=== PATIENT | male | born 1950 | race Caucasian/White ===

== ENCOUNTER 2016-08-09 20:27 | Inpatient (IN) | payer MEDICARE, BC ==
[2016-08-09] MEDS ORDERED: SODIUM CHLORIDE 0.9% 500 ML IV ONE (21:05)
[2016-08-09 21:23] LABS: Basophils % (A) 0 %; CH 29.3; CHCM 30.6; Eosinophils # (A) 0.2 k/uL (0-0.7); Eosinophils % (A) 3 %; HCT 37.4 % (39.0-53.0); HDW 3.01; HGB 11.8 gm/dL (13.0-17.5); Hypochromasia Marked; Luc # (Auto) 0.06; Luc % (Auto) 1; Lymphocytes # (A) 0.5 k/uL (1.0-4.8); Lymphocytes % (A) 10 %; MCH 30.1 pg (25.0-35.0); MCHC 31.4 g/dL (31.0-37.0); MCV 95.8 fL (80.0-100.0); Mean Platelet Volume 8.1; Monocytes # (A) 0.2 k/uL (0-1.0); Monocytes % (A) 5 %; Neutrophils % (A) 81 %; RBC 3.91 m/uL (4.30-5.90); RDW 15.9 % (11.5-15.5); WBC 4.9 k/uL (3.8-10.6); WBC (Perox) 4.96
--- NOTE | 2016-08-09 21:30 | ED ---
SOB HPI - General Chief Complaint: Shortness of Breath Stated Complaint: SOB Time Seen by Provider: 08/09/16 20:51 Source: patient Mode of arrival: wheelchair Limitations: no limitations - History of Present Illness Initial Comments: This 66-year-old male with history of A. fib, CHF, COPD who presents emergency department for worsening shortness of breath over the last couple of weeks and also a wound on his left lower extremity. He states he hit a table couple of days ago and sustained a skin tear. He's been treating it with Silvadene cream and local wound care at home. He states that the swelling in his left lower extremity has worsened and he feels he has an infection. Denies any fevers or chills. Does admit to a cough however no sputum production or no abdominal pain , nausea, vomiting, or diarrhea. He is currently anticoagulated. - Related Data Home Medications Medication Instructions Recorded Confirmed Isosorbide Mononitrate ER [Imdur] 30 mg PO DAILY 04/11/14 08/09/16 Tamsulosin HCl [Flomax] 0.8 mg PO DAILY 04/11/14 08/09/16 hydrALAZINE HCL [Apresoline] 25 mg PO AC-BID 04/11/14 08/09/16 Albuterol Nebulized [Ventolin 2.5 mg INHALATION RT-Q6H PRN 03/03/16 08/09/16 Nebulized] Allopurinol [Zyloprim] 300 mg PO DAILY 03/03/16 08/09/16 Metolazone 5 mg PO DAILY 03/03/16 08/09/16 Naproxen [Naprosyn] 500 mg PO AC-BID 03/03/16 08/09/16 Warfarin Sodium 6 mg PO DAILY 03/03/16 08/09/16 HYDROcodone/APAP 5-325MG [[place] 1 tab PO DAILY PRN 08/09/16 08/09/16 5-325] Previous Rx's Medication Instructions Recorded Potassium Chloride [Potassium 20 meq PO AC-BID #60 tablet.er 04/19/14 Chloride ER] Carvedilol [Coreg*] 12.5 mg PO AC-BID tab 03/06/16 Digoxin [Lanoxin] 125 mcg PO DAILY tab 03/06/16 Furosemide [Lasix] 40 mg PO BID@0900,1600 tab 03/06/16 Allergies Allergy/AdvReac Type Severity Reaction Status Date / Time No Known Allergies Allergy Verified 08/09/16 21:23 Review of Systems ROS Statement: Those systems with pertinent positive or pertinent negative responses have been documented in the HPI. ROS Other: All systems not noted in ROS Statement are negative. Past Medical History Past Medical History: Atrial Fibrillation, Heart Failure, COPD, Hypertension, Pneumonia, Prostate Disorder, Sleep Apnea/CPAP/BIPAP, Vascular Disorder Additional Past Medical History / Comment(s): CPAP MACHINE, ARTHRITIS, HANDS TREMOR AT TIMES, MAC DEGENERATION,VARICOSE VEINS, BRONCHITIS,GOUT, SINUS PROBLEMS AT TIMES. History of Any Multi-Drug Resistant Organisms: MRSA Date of last positivie culture/infection: 08/30/2012/ 10-03-12 MDRO Source:: LEFT LEG/ RT LEG Past Surgical History: Heart Catheterization Additional Past Surgical History / Comment(s): CYST AND PARTIAL JAW REMOVED/ SCREWS IN PLACE, DENTAL SX AGE 8 TO BRING TEETH DOWN,BRONCHOSCOPY, UPPER FRONT BRIDGE Past Anesthesia/Blood Transfusion Reactions: No Reported Reaction Additional Past Anesthesia/Blood Transfusion Reaction / Comment(s): STATED DURING BRONCH STOPPED BREATHING Past Psychological History: No Psychological Hx Reported Smoking Status: Former smoker Past Alcohol Use History: Rare Additional Past Alcohol Use History / Comment(s): SMOKED CIGARS OCC OFF AND ON X YEARS, QUIT 2009. He has used marijuana in the past. No street drug use. He states he drinks a beer occasionally. Patient lives at home with his . There is a dog in the home. He was in the [employer] stationed in the [place]. He has visited for a couple of times. 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 Past Drug Use History: None Reported - Past Family History Father Family Medical History: Dementia Additional Family Medical History / Comment(s): MACULAR DEGENERATION Mother Family Medical History: Diabetes Mellitus Additional Family Medical History / Comment(s): ANEURYSMS, CATARACTS. General Exam - General Exam Comments Initial Comments: Constitutional: Awake alert Appears comfortable Head: Normocephalic atraumatic Eyes: no conjunctival injection No scleral icterus EOMI Neck: No JVD Supple Heart: Tachycardia with irregular rhythm normal S1-S2 no murmurs Lungs: Clear to auscultation bilaterally No wheezing No rales, does not appear to be in any acute distress Abdomen: Soft nondistended nontender Extremities: Chronic bilateral lower extremity edema with chronic venous stasis changes, there is a large skin tear that is weeping and surrounding erythema of the left lower extremity DP pulses intact Radial pulses intact Neuro: A&Ox3 No focal neurologic deficits Psych: Appropriate mood and affect Limitations: no limitations Course Vital Signs 08/09/16 08/09/16 08/09/16 20:32 21:04 22:11 Temperature 98.6 F Pulse Rate 80 118 H 114 H Respiratory 18 26 H 20 Rate Blood Pressure 149/79 154/70 156/78 O2 Sat by Pulse 88 L 95 96 Oximetry - Reevaluation(s) Reevaluation #1: 08/09/16 21:30 EKG showing intra-fibrillation with a rate of 134. No ST segment changes or T- wave inversions are seen however there is a lot of artifact it's difficult to tell. QTC is 591. Other intervals are normal Medical Decision Making - Medical Decision Making This is a 66-year-old male presents emergency department for worsening shortness breath over the last couple of weeks that was worse today. Patient was hypoxic on arrival 88%. He was improved after oxygen administration. He was also 5 be in A. fib with RVR and had what appears to be left lower extremity cellulitis from her recent wound. The patient is started on vancomycin. We'll start him on a Cardizem drip to help with his heart function. Initially was given a little bit of fluids because there is concern for sepsis however there is no evidence for that at this time. We will hold on nitrates and diuretics until he can get his heart rate under control. Like to admit him to the hospital for CHF exacerbation, atrial fibrillation and cellulitis. Dr. Modi accepts the admission. - Lab Data Result diagrams: 08/09/16 20:55 08/09/16 20:55 Lab Results 08/09/16 08/09/16 08/09/16 Range/Units 20:55 20:55 20:55 WBC 4.9 (3.8-10.6) k/uL RBC 3.91 L (4.30-5.90) m/uL Hgb 11.8 L (13.0-17.5) gm/dL Hct 37.4 L (39.0-53.0) % MCV 95.8 (80.0-100.0) fL MCH 30.1 (25.0-35.0) pg MCHC 31.4 (31.0-37.0) g/dL RDW 15.9 H (11.5-15.5) % Plt Count 124 L (150-450) k/uL Neutrophils % 81 % Lymphocytes % 10 % Monocytes % 5 % Eosinophils % 3 % Basophils % 0 % Neutrophils # 4.0 (1.3-7.7) k/uL Lymphocytes # 0.5 L (1.0-4.8) k/uL Monocytes # 0.2 (0-1.0) k/uL Eosinophils # 0.2 (0-0.7) k/uL Basophils # 0.0 (0-0.2) k/uL Hypochromasia Marked PT 17.9 H (9.0-12.0) sec INR 1.9 (<1.1) APTT 33.7 H (22.0-30.0) sec Sodium 144 (137-145) mmol/L Potassium 3.2 L (3.5-5.1) mmol/L Chloride 94 L (98-107) mmol/L Carbon Dioxide 40 H* (22-30) mmol/L Anion Gap 10 mmol/L BUN 48 H (9-20) mg/dL Creatinine 1.60 H (0.66-1.25) mg/dL Est GFR (MDRD) Af Amer 53 (>60 ml/min/1.73 sqM) Est GFR (MDRD) Non-Af 44 (>60 ml/min/1.73 sqM) Glucose 162 H (74-99) mg/dL Plasma Lactic Acid [place] (0.7-2.0) mmol/L Calcium 8.7 (8.4-10.2) mg/dL Magnesium 1.5 L (1.6-2.3) mg/dL Total Bilirubin 1.5 H (0.2-1.3) mg/dL AST 24 (17-59) U/L ALT 30 (21-72) U/L Alkaline Phosphatase 91 (38-126) U/L CK-MB (CK-2) (0.0-2.4) ng/mL Troponin I (0.000-0.034) ng/mL NT-Pro-B Natriuret Pep pg/mL Total Protein 6.9 (6.3-8.2) g/dL Albumin 3.5 (3.5-5.0) g/dL 08/09/16 08/09/16 08/09/16 Range/Units 20:55 20:55 20:55 WBC (3.8-10.6) k/uL RBC (4.30-5.90) m/uL Hgb (13.0-17.5) gm/dL Hct (39.0-53.0) % MCV (80.0-100.0) fL MCH (25.0-35.0) pg MCHC (31.0-37.0) g/dL RDW (11.5-15.5) % Plt Count (150-450) k/uL Neutrophils % % Lymphocytes % % Monocytes % % Eosinophils % % Basophils % % Neutrophils # (1.3-7.7) k/uL Lymphocytes # (1.0-4.8) k/uL Monocytes # (0-1.0) k/uL Eosinophils # (0-0.7) k/uL Basophils # (0-0.2) k/uL Hypochromasia PT (9.0-12.0) sec INR (<1.1) APTT (22.0-30.0) sec Sodium (137-145) mmol/L Potassium (3.5-5.1) mmol/L Chloride (98-107) mmol/L Carbon Dioxide (22-30) mmol/L Anion Gap mmol/L BUN (9-20) mg/dL Creatinine (0.66-1.25) mg/dL Est GFR (MDRD) Af Amer (>60 ml/min/1.73 sqM) Est GFR (MDRD) Non-Af (>60 ml/min/1.73 sqM) Glucose (74-99) mg/dL Plasma Lactic Acid [place] 1.6 (0.7-2.0) mmol/L Calcium (8.4-10.2) mg/dL Magnesium (1.6-2.3) mg/dL Total Bilirubin (0.2-1.3) mg/dL AST (17-59) U/L ALT (21-72) U/L Alkaline Phosphatase (38-126) U/L CK-MB (CK-2) 1.1 (0.0-2.4) ng/mL Troponin I 0.041 H* (0.000-0.034) ng/mL NT-Pro-B Natriuret Pep 3900 pg/mL Total Protein (6.3-8.2) g/dL Albumin (3.5-5.0) g/dL Disposition Clinical Impression: CHF (congestive heart failure), Atrial fibrillation with RVR, Cellulitis Disposition: ADMITTED IP TO THIS HOSP Condition: Stable Referrals: Wiliam Modi MD [Primary Care Provider] - 1-2 days
[2016-08-09 21:34] LABS: INR 1.9 (<1.1); Partial Thromboplastin Time 33.7 sec (22.0-30.0); Prothrombin Time 17.9 sec (9.0-12.0)
--- NOTE | 2016-08-09 21:39 | XR ---
EXAMINATION TYPE: XR chest 2V DATE OF EXAM: 08/09/2016 9:26 PM COMPARISON: 06/24/2016 HISTORY: Short of breath TECHNIQUE: Frontal and lateral views of the chest are obtained. FINDINGS: There is general coarsening of interstitial pulmonary markings. There is linear density in the left midlung. There are no hilar masses. Heart is borderline enlarged. IMPRESSION: Interstitial pulmonary infiltrates with focal atelectasis in the left midlung. Lung viola ings are increased slightly compared to old exam. There could be mild heart failure.
[2016-08-09 21:42] LABS: Calcium 8.7 mg/dL (8.4-10.2); Magnesium 1.5 mg/dL (1.6-2.3); Potassium 3.2 mmol/L (3.5-5.1); Total Bilirubin 1.5 mg/dL (0.2-1.3); Total Protein 6.9 g/dL (6.3-8.2)
[2016-08-09 22:00] LABS: Creatine Kinase MB 1.1 ng/mL (0.0-2.4)
[2016-08-09 22:08] LABS: Troponin I 0.041 ng/mL (0.000-0.034)
[2016-08-09] MEDS ORDERED: IV VANCOMYCIN PER PHARMACY 1 EACH MISC MISCELLANE PRN (22:08)
[2016-08-09] MEDS ORDERED: VANCOMYCIN 2,000 MG in SODIUM CHLORIDE 0.9% 500 ML IVPB STA (22:14)
[2016-08-09] MEDS ORDERED: POTASSIUM CHLORIDE ER 20 MEQ TAB.ER PO STA (22:27)
[2016-08-09] MEDS ORDERED: NALOXONE 0.4 MG/ML 1 ML VIAL IV PRN (22:43)
[2016-08-09] MEDS: DILTIAZEM 125 MG in SODIUM CHLORIDE 0.9% 100 ML IV SCH (22:47)
[2016-08-09] MEDS: MAGNESIUM SULFATE-D5W PMX 1 GM in DEXTROSE/WATER 1 100ML.BAG IVPB SCH (22:47)
[2016-08-09 23:09] LABS: VBG PH 7.37 (7.31-7.41)
[2016-08-10] MEDS: MAGNESIUM SULFATE-D5W PMX 1 GM in DEXTROSE/WATER 1 100ML.BAG IVPB SCH (02:58)
[2016-08-10] MEDS ORDERED: POTASSIUM CHLORIDE ER 20 MEQ TAB.ER PO SCH (09:00)
[2016-08-10] MEDS: FUROSEMIDE 10 MG/ML 4 ML VIAL IV SCH ×3 (09:57→23:22)
--- NOTE | 2016-08-10 14:13 | CONS ---
DATE OF CONSULTATION: CHIEF COMPLAINT: Shortness of breath and palpitations. Lowell is a 66-year-old gentleman with history of cardiomyopathy, congestive heart failure, chronic atrial fibrillation, hypertension, and COPD, who presented to hospital complaining of shortness of breath and palpitations. He denies chest pain, paroxysmal nocturnal dyspnea and orthopnea. He has chronic leg edema and chronic stasis changes in both his legs. He comes in, is in A. fib with RVR. EKG shows atrial fibrillation with rapid ventricular rate with nonspecific ST-T wave changes. Patient had an echo done last year that revealed an ejection fraction of around 35%. So far, the BNP is elevated at 3900. Troponin is in the portillo zone at 0.041. Blood gases showed a pH of 7.3 and potassium is low at 3.2, BUN is high at 48. Creatinine is 1.6. Hemoglobin is 11.8. Past medical history is significant for chronic atrial fibrillation, chronic congestive heart failure, cardiomyopathy, COPD, hypertension. Medications include Coreg 12.5 b.i.d., Lanoxin 0.125, Lasix 40 b.i.d., Imdur 30 q. daily, metolazone 5 q. daily, Coumadin, hydralazine, K-Dur, Flomax, Zyloprim and Ventolin. ALLERGIES: There are no known drug allergies. Family history is negative for premature coronary artery disease. Social history is negative for current smoking, EtOH abuse, or drug abuse. REVIEW OF SYSTEMS: HEENT is unremarkable. CARDIAC: As described above. RESPIRATORY: As described above. GI: Negative. GENITOURINARY: Negative. ALLERGY/IMMUNOLOGY: Negative. SKIN: Negative. MUSCULOSKELETAL: Significant for arthritis. PSYCHOSOCIAL: Negative. ENDOCRINE: Negative. HEMATOLOGICAL: Negative. DERM: Negative. Oncological: ONCOLOGICAL: Negative. CONSTITUTIONAL: Negative. The rest of the system review is not relevant. On exam, patient is afebrile, heart rate is 104 beats per minute, blood pressure is 132/88, respiratory rate is 18. Chest exam reveals diminished air entry at the bases. Heart exam reveals first and second heart sounds, irregular rhythm, and a systolic murmur at the left lower sternal border. Abdomen is soft. Exam of extremities reveals bilateral 2+ pitting edema with chronic stasis changes. A chest x-ray shows cardiomegaly with prominent interstitial markings. ASSESSMENT: 1. Acute exacerbation of chronic congestive heart failure. 2. Chronic atrial fibrillation with uncontrolled ventricular rate. 3. Prerenal insufficiency. PLAN: Please continue the Coumadin to maintain an INR of 2 to 2.5, supplement the potassium, start the patient on IV Lasix, continue on IV Cardizem. On discharge will continue the metolazone he is currently on. I anticipate continue the beta blockers. I anticipate his going home over the next 24 hours. Thank you for giving me the privilege to participate in the care of this pleasant gentleman.
[2016-08-10] MEDS: VANCOMYCIN 2,000 MG in SODIUM CHLORIDE 0.9% 500 ML IVPB SCH (17:24)
[2016-08-10] MEDS: DILTIAZEM 125 MG in SODIUM CHLORIDE 0.9% 100 ML IV SCH (18:05)
[2016-08-10] MEDS ORDERED: HYDROcodone/APAP 5-325MG 1 EACH TAB PO PRN (18:52)
[2016-08-10] MEDS ORDERED: ALBUTEROL NEBULIZED 2.5 MG/3 ML INHALATION PRN (18:52)
[2016-08-10] MEDS: WARFARIN 3 MG TAB PO SCH (21:35)
--- NOTE | 2016-08-10 23:34 | P.HPIM ---
History of Present Illness H&P Date: 08/10/16 Chief Complaint: Shortness of breath and weight gain. The patient is a 66 white male fell on her my practice with history of obesity but a history of underlying atrial fibrillation with rapid ventricular response recently comes in with two-week history of worsening weight gain. Since similar admissions in the past with significant weight gain and this prompted him to come in for appropriate treatment. Cardiology has because consulted. He is now on appropriate Cardizem drip and is starting to stabilize. Diuresis was started. Mild shortness of breath and dyspnea on exertion is noted. Review of Systems Constitutional: Reports fatigue, Reports weakness Eyes: denies blurred vision, denies pain Ears, nose, mouth and throat: Denies headache, Denies sore throat Cardiovascular: Reports as per HPI Gastrointestinal: Denies abdominal pain, Denies diarrhea, Denies nausea, Denies vomiting Musculoskeletal: Denies myalgias Integumentary: Reports dryness, Reports rash Neurological: Denies numbness, Denies weakness Psychiatric: Denies anxiety, Denies depression Endocrine: Denies fatigue, Denies weight change Past Medical History Past Medical History: Atrial Fibrillation, Heart Failure, COPD, Hyperlipidemia, Hypertension, Pneumonia, Prostate Disorder, Sleep Apnea/CPAP/BIPAP, Vascular Disorder Additional Past Medical History / Comment(s): CPAP MACHINE, ARTHRITIS, HANDS TREMOR AT TIMES, MAC DEGENERATION,VARICOSE VEINS, BRONCHITIS,GOUT, SINUS PROBLEMS AT TIMES. History of Any Multi-Drug Resistant Organisms: MRSA Date of last positivie culture/infection: 08/30/12 MDRO Source:: Unknown Past Surgical History: Heart Catheterization Additional Past Surgical History / Comment(s): CYST AND PARTIAL JAW REMOVED/ SCREWS IN PLACE, DENTAL SX AGE 8 TO BRING TEETH DOWN,BRONCHOSCOPY, UPPER FRONT BRIDGE Past Anesthesia/Blood Transfusion Reactions: No Reported Reaction Additional Past Anesthesia/Blood Transfusion Reaction / Comment(s): STATED DURING BRONCH STOPPED BREATHING Past Psychological History: No Psychological Hx Reported Smoking Status: Former smoker Past Alcohol Use History: Rare Additional Past Alcohol Use History / Comment(s): SMOKED CIGARS OCC OFF AND ON X YEARS, QUIT 2009. He has used marijuana in the past. No street drug use. He states he drinks a beer occasionally. Patient lives at home with his . There is a dog in the home. He was in the [employer] [place]. He has visited for a couple of times. 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 Past Drug Use History: None Reported - Past Family History Father Family Medical History: Dementia Additional Family Medical History / Comment(s): MACULAR DEGENERATION Mother Family Medical History: Diabetes Mellitus Additional Family Medical History / Comment(s): ANEURYSMS, CATARACTS. Medications and Allergies Home Medications Medication Instructions Recorded Confirmed Type RX: Isosorbide Mononitrate ER 30 mg PO DAILY 04/11/14 08/09/16 History [Imdur] RX: Tamsulosin HCl [Flomax] 0.8 mg PO DAILY 04/11/14 08/09/16 History RX: hydrALAZINE HCL [Apresoline] 25 mg PO AC-BID 04/11/14 08/09/16 History RX: Albuterol Nebulized [Ventolin 2.5 mg INHALATION RT-Q6H PRN 03/03/16 History Nebulized] RX: Allopurinol [Zyloprim] 300 mg PO DAILY 03/03/16 08/09/16 History RX: Metolazone 5 mg PO DAILY 03/03/16 08/09/16 History RX: Naproxen [Naprosyn] 500 mg PO AC-BID 03/03/16 08/09/16 History RX: Warfarin Sodium 6 mg PO DAILY 03/03/16 08/09/16 History RX: HYDROcodone/APAP 5-325MG 1 tab PO DAILY PRN 08/09/16 08/09/16 History [[place] 5-325] Allergies Allergy/AdvReac Type Severity Reaction Status Date / Time No Known Allergies Allergy Verified 08/09/16 21:23 Physical Exam Vitals: Vital Signs Temp Pulse Pulse Resp BP BP BP 08/10/16 23:07 96 08/10/16 23:03 90 08/10/16 20:00 97.7 F 104 H 20 152/82 140/105 08/10/16 16:00 104 H 16 159/103 08/10/16 12:00 97 F L 45 L 16 107/56 08/10/16 08:00 98.1 F 100 22 132/88 08/10/16 01:00 105 H 20 139/81 08/10/16 00:00 97 18 133/74 Pulse Ox 08/10/16 23:07 08/10/16 23:03 08/10/16 20:00 98 08/10/16 16:00 97 08/10/16 12:00 94 L 08/10/16 08:00 92 L 08/10/16 01:00 94 L 08/10/16 00:00 95 Intake and Output 08/10/16 08/10/16 08/11/16 14:59 22:59 06:59 Intake Total 276 556.5 Output Total 1000 Balance 276 556.5 -1000 Intake: Intake, IV Titration 40 96.5 Amount Diltiazem 125 mg In 40 96.5 Sodium Chloride 0.9% 100 ml @ 5 MG/HR 5 mls/hr IV .Q24H [facility] Rx#:[id number] Oral 236 460 Output: Urine 1000 Other: Voiding Method Bedside Commode # Voids 4 Weight 149.685 kg 149.685 kg Patient Weight 08/11/16 06:59 Weight 149.685 kg - Constitutional General appearance: obese - EENT Eyes: EOMI - Neck Neck: no lymphadenopathy - Respiratory Respiratory: bilateral: diminished - Cardiovascular Rhythm: irregularly irregular Heart sounds: normal: S1, S2 - Gastrointestinal General gastrointestinal: no organomegaly, soft, no tenderness - Integumentary Integumentary: rash - Musculoskeletal Musculoskeletal: strength equal bilaterally - Psychiatric Psychiatric: A&O x's 3 Results CBC & Chem 7: 08/09/16 20:55 08/09/16 20:55 Thrombosis Risk Factor Assmnt - Choose All That Apply Any of the Below Risk Factors Present?: Yes Each Factor Represents 1 point: Obesity (BMI >25), Swollen legs (current) Each Risk Factor Represents 2 Points: Age 61-74 years Other congenital or acquired thrombophilia - If yes, enter type in comment: No Thrombosis Risk Factor Assessment Total Risk Factor Score: 4 Thrombosis Risk Factor Assessment Level: Moderate Risk Assessment and Plan (1) Atrial fibrillation with RVR Status: Acute (2) CHF (congestive heart failure) Status: Acute (3) Bilateral lower leg cellulitis Status: Acute (4) Edema extremities Status: Acute Plan: Appropriate diuresis with heart rate control was instituted. Antibiotic therapy will be started secondary to lower extremity cellulitis. Dietary modifications. Otherwise, cardiology will be consulted. I do appreciate input. CBC and CMP in a.m. Time with Patient: Less than 30
[2016-08-11 06:09] LABS: CHCM 29.9; HCT 38.3 % (39.0-53.0); HDW 2.94; HGB 11.6 gm/dL (13.0-17.5); Hypochromasia Marked; MCH 29.4 pg (25.0-35.0); MCHC 30.4 g/dL (31.0-37.0); MCV 96.9 fL (80.0-100.0); Mean Platelet Volume 7.7; RBC 3.95 m/uL (4.30-5.90); RDW 15.9 % (11.5-15.5); WBC 5.6 k/uL (3.8-10.6)
[2016-08-11 06:14] LABS: INR 2.2 (<1.1); Prothrombin Time 21.5 sec (9.0-12.0)
[2016-08-11 06:20] LABS: Calcium 8.8 mg/dL (8.4-10.2); Magnesium 1.6 mg/dL (1.6-2.3)
[2016-08-11 06:22] LABS: Potassium 2.7 mmol/L (3.5-5.1)
[2016-08-11] MEDS ORDERED: Potassium Replacement Protocol 1 EACH MISC MISCELLANE PRN (06:36)
[2016-08-11] MEDS: hydrALAZINE HCL 25 MG TAB PO SCH ×2 (07:21→16:22)
[2016-08-11] MEDS: NAPROXEN 250 MG TAB PO SCH ×2 (07:21→16:20)
[2016-08-11] MEDS: POTASSIUM CHLORIDE ER 20 MEQ TAB.ER PO SCH ×6 (07:21→23:49)
[2016-08-11] MEDS ORDERED: CARVEDILOL 12.5 MG TAB PO SCH (07:30)
--- NOTE | 2016-08-11 08:51 | P.PN ---
Subjective Principal diagnosis: Atrial fibrillation with rapid ventricular response. Causing congestive heart failure. This is a 66-year-old white male essentially admitted for congestive heart failure with recurrent bilateral lower extremity cellulitis. He states feeling much better after 1 day of diuresis. No significant fever stated. Dr. Bower is now been consulted for cellulitis. Objective - Vital Signs Vital signs: Vital Signs Temp 97.0 F L 08/11/16 08:30 Pulse 80 08/11/16 08:30 Resp 20 08/11/16 08:30 BP 134/87 08/11/16 08:30 Pulse Ox 92 L 08/11/16 08:30 Intake & Output 08/10/16 08/11/16 08/11/16 18:59 06:59 18:59 Intake Total 832.5 600 Output Total 2100 Balance 832.5 -1500 Weight 149.685 kg 156.4 kg Intake: Intake, IV Titration 136.5 Amount Diltiazem 125 mg In 136.5 Sodium Chloride 0.9% 100 ml @ 5 MG/HR 5 mls/hr IV .Q24H [facility] Rx#:[id number] Oral 696 600 Output: Urine 2100 Other: Voiding Method Bedside Commode Bedside Commode # Voids 3 - Constitutional General appearance: Present: obese - EENT Eyes: Absent: abnormal pupil - Respiratory Respiratory: bilateral: diminished - Cardiovascular Rhythm: irregularly irregular Heart sounds: normal: S1, S2 - Gastrointestinal General gastrointestinal: Present: soft. Absent: tenderness - Integumentary Integumentary: Present: cellulitis - Psychiatric Psychiatric: Present: A&O x's 3, appropriate affect, intact judgment & insight - Labs CBC & Chem 7: 08/11/16 05:36 08/11/16 05:36 Labs: Abnormal Lab Results - Last 24 Hours (Table) 08/11/16 08/11/16 08/11/16 Range/Units 05:36 05:36 05:36 RBC 3.95 L (4.30-5.90) m/uL Hgb 11.6 L (13.0-17.5) gm/dL Hct 38.3 L (39.0-53.0) % MCHC 30.4 L (31.0-37.0) g/dL RDW 15.9 H (11.5-15.5) % Plt Count 136 L (150-450) k/uL PT 21.5 H (9.0-12.0) sec Sodium 146 H (137-145) mmol/L Potassium 2.7 L* (3.5-5.1) mmol/L Chloride 95 L (98-107) mmol/L Carbon Dioxide 39 H (22-30) mmol/L BUN 48 H (9-20) mg/dL Creatinine 1.59 H (0.66-1.25) mg/dL Glucose 126 H (74-99) mg/dL Assessment and Plan (1) Atrial fibrillation with RVR Status: Acute (2) CHF (congestive heart failure) Status: Acute (3) Bilateral lower leg cellulitis Status: Acute (4) Edema extremities Status: Acute Plan: Continue diuresis at this time. Continue current regimen of antibiotic treatment-Dr. Bower is been consulted. Check CBC and CMP in a.m. with magnesium. Appreciate cardiology input. Prognosis is improving. Time with Patient: Less than 30
[2016-08-11] MEDS: FUROSEMIDE 10 MG/ML 4 ML VIAL IV SCH ×3 (08:52→22:50)
[2016-08-11] MEDS ORDERED: FUROSEMIDE 40 MG TAB PO SCH (09:00)
[2016-08-11] MEDS: ALLOPURINOL 300 MG TAB PO SCH (09:26)
[2016-08-11] MEDS: DIGOXIN 125 MCG TAB PO SCH (09:26)
[2016-08-11] MEDS: TAMSULOSIN 0.4 MG CAP.ER.24H PO SCH (09:26)
[2016-08-11] MEDS: ISOSORBIDE MONONITRATE ER 30 MG TAB.ER.24H PO SCH (09:26)
[2016-08-11] MEDS: METOLAZONE 5 MG TAB PO SCH (09:26)
[2016-08-11] MEDS ORDERED: CARVEDILOL 12.5 MG TAB PO ONE (10:00)
[2016-08-11] MEDS: VANCOMYCIN 2,000 MG in SODIUM CHLORIDE 0.9% 500 ML IVPB SCH (11:47)
--- NOTE | 2016-08-11 12:13 | P.PN ---
Subjective Principal diagnosis: Shortness of breath and palpitations. This is a 66-year-old gentleman with history of cardiomyopathy, congestive heart failure, chronic atrial fibrillation, hypertension, COPD, who initially presented to the hospital with symptoms of shortness of breath with associated palpitations. Patient has chronic leg edema as well as chronic stasis in both his legs. He recently had a injury to his left leg, causing a laceration to that leg which has been draining. He had an echocardiogram with Doppler study performed last year which revealed an ejection fraction of 35%. BNP on admission here 3900. Patient was initiated on IV Lasix, diuresing well on IV Lasix. Potassium today 2.7, BUN 48, creatinine 1.5. Magnesium level I.6. Blood pressure 127/62 with a heart rate in the 70s. Patient was seen and examined today, he states overall that he is feeling better. Denies to be in atrial fibrillation with a controlled ventricular response. On Coumadin for anticoagulation, INR 2.2. Objective - Vital Signs Vital signs: Vital Signs Temp 97.2 F L 08/11/16 11:35 Pulse 71 08/11/16 11:35 Resp 20 08/11/16 11:35 BP 127/62 08/11/16 11:35 Pulse Ox 93 L 08/11/16 11:35 Intake & Output 08/10/16 08/11/16 08/11/16 18:59 06:59 18:59 Intake Total 832.5 600 236 Output Total 2100 Balance 832.5 -1500 236 Weight 149.685 kg 156.4 kg 156.4 kg Intake: Intake, IV Titration 136.5 Amount Diltiazem 125 mg In 136.5 Sodium Chloride 0.9% 100 ml @ 5 MG/HR 5 mls/hr IV .Q24H [facility] Rx#:[id number] Oral 696 600 236 Output: Urine 2100 Other: Voiding Method Bedside Commode Bedside Commode # Voids 3 - Exam PHYSICAL EXAMINATION: HEENT: Head is atraumatic, normocephalic. Pupils equal, round. Neck is supple. There is no elevated jugular venous pressure. HEART EXAMINATION: Heart S1 and S2 irregularly irregular CHEST EXAMINATION: Lungs reveal diminished air entry to bilateral bases. ABDOMEN: Soft, obese, nontender. Bowel sounds are heard. No organomegaly noted. EXTREMITIES: 1+ peripheral pulses with 2+ evidence of peripheral edema and no calf tenderness noted. Evidence of chronic venous stasis and cellulitis. NEUROLOGIC patient is awake, alert and oriented -3. . - Labs CBC & Chem 7: 08/11/16 05:36 08/11/16 10:04 Labs: Abnormal Lab Results - Last 24 Hours (Table) 08/11/16 08/11/16 08/11/16 Range/Units 05:36 05:36 05:36 RBC 3.95 L (4.30-5.90) m/uL Hgb 11.6 L (13.0-17.5) gm/dL Hct 38.3 L (39.0-53.0) % MCHC 30.4 L (31.0-37.0) g/dL RDW 15.9 H (11.5-15.5) % Plt Count 136 L (150-450) k/uL PT 21.5 H (9.0-12.0) sec Sodium 146 H (137-145) mmol/L Potassium 2.7 L* (3.5-5.1) mmol/L Chloride 95 L (98-107) mmol/L Carbon Dioxide 39 H (22-30) mmol/L BUN 48 H (9-20) mg/dL Creatinine 1.59 H (0.66-1.25) mg/dL Glucose 126 H (74-99) mg/dL 08/11/16 Range/Units 10:04 RBC (4.30-5.90) m/uL Hgb (13.0-17.5) gm/dL Hct (39.0-53.0) % MCHC (31.0-37.0) g/dL RDW (11.5-15.5) % Plt Count (150-450) k/uL PT (9.0-12.0) sec Sodium (137-145) mmol/L Potassium 2.9 L* (3.5-5.1) mmol/L Chloride (98-107) mmol/L Carbon Dioxide (22-30) mmol/L BUN (9-20) mg/dL Creatinine (0.66-1.25) mg/dL Glucose (74-99) mg/dL Assessment and Plan (1) Systolic CHF, acute on chronic Status: Acute (2) Chronic a-fib Status: Acute (3) NICM (nonischemic cardiomyopathy) Status: Acute (4) Cellulitis Status: Acute (5) Bilateral lower leg cellulitis Status: Acute (6) Hypokalemia Status: Acute (7) Hypomagnesemia Status: Acute Plan: From cardiology's perspective, we will recommend to continue IV Lasix. Continue Coumadin to maintain an INR in the range of 2-2.2. Discontinue IV Cardizem and increase current dose of cortical. Replace potassium and magnesium. DNP note has been reviewed, I agree with a documented findings and plan of care. Patient was seen and examined.
[2016-08-11] MEDS: POTASSIUM CHLORIDE 10 MEQ, LIDOCAINE 2% INJ 10 MG in SODIUM CHLORIDE 0.9% 100 ML IV SCH ×3 (13:25→16:20)
[2016-08-11] MEDS: MAGNESIUM SULFATE-D5W PMX 1 GM in DEXTROSE/WATER 1 100ML.BAG IVPB SCH ×2 (13:25→14:45)
--- NOTE | 2016-08-11 14:11 | CDI ---
In responding to this query, please exercise your independent professional judgment. The [facility] Coding Staff and Clinical Documentation Specialists appreciate your assistance in clarifying documentation, maintaining compliance with coding guidelines, accurately documenting patients condition and capturing severity of illness. The fact that a question is asked does not imply that any particular answer is desired or expected. Communication forms are a method of clarifying documentation and are not made part of the Legal Health Record. Thank you in advance for your clarification. Last Revision, August 2015 Jess Beaver [address] [facility] [place] [address] Documentation Clarification Form Date: 08/11/2016 2:03:00 PM From: Enma Lazo Admit Date: 08/09/2016 10:43:00 PM Patient Name: Lowell Barraza Visit Number: [id number] Dr. Wiliam Modi History/Risk Factors: CHF exacerbation AFib COPD history Sleep Apnea CPAP/BIPAP Exsmoker Clinical Indicators: Vital signs: RR 18 with O2 sats 88% on room air, RR 26 with sats 95% on 2L Lung/Breathing assessment: short of breath, accessory muscle use, pursed lip breathing per Vitals in ED VBG: pH 7.37 pCO2 72 pHCO3 40 Treatment: Breathing tx IV Lasix IV Cardizem O2 nasal cannula In your professional opinion, can you please clarify if these findings signify one of the following conditions? Acuity: o Acute o Chronic o Acute on Chronic Respiratory Status: o Respiratory failure with hypercapnia o Respiratory failure with hypoxia o Acute Respiratory Distress o Other Diagnosis, please specify o Unable to determine Please document in your progress notes and discharge summary in order to capture severity of illness and risk of mortality. Include clinical findings that support your diagnosis. FYI: Press F11 to launch patient chart. Place X here if this finding has no clinical significance, is not applicable or if you are not able to provide any additional documentation. CED
--- NOTE | 2016-08-11 14:16 | CDI ---
In responding to this query, please exercise your independent professional judgment. The [facility] Coding Staff and Clinical Documentation Specialists appreciate your assistance in clarifying documentation, maintaining compliance with coding guidelines, accurately documenting patients condition and capturing severity of illness. The fact that a question is asked does not imply that any particular answer is desired or expected. Communication forms are a method of clarifying documentation and are not made part of the Legal Health Record. Thank you in advance for your clarification. Last Revision, April 2015 Jess Beaver [address] [facility] [place] [address] Documentation Clarification Form Date: 08/11/2016 2:11:00 PM From: Enma Lazo Admit Date: 08/09/2016 10:43:00 PM Patient Name: Lowell Barraza Visit Number: [id number] Dr. Wiliam Modi Patient presents with a BUN/CR/GFR of: 48/1.60/44 History/Risk Factors: Hypertension AFib CHF COPD Sleep Apnea exsmoker Clinical Indicators: see labs listed above Other labs: K+ 3.2 poa, bnp 3900 Treatment: Consults: Cardiology Monitoring labs IV fluid bolus x1 In order to capture the severity of condition, please clarify if the condition signifies: Acute renal failure Acute on chronic renal failure Chronic kidney disease (CKD) and please stage Stage 1 GFR >90 Stage 2 GFR 60-89 Stage 3 GFR 30-59 Stage 4 GFR 15-29 Stage 5 GFR <15 ESRD Unable to determine Other, specify Please document in your progress notes and discharge summary in order to capture severity of illness and risk of mortality. Include clinical findings that support your diagnosis. FYI: Press F11 to launch patient chart. Place X here if this finding has no clinical significance, is not applicable or if you are not able to provide any additional documentation. CED
[2016-08-11] MEDS: CARVEDILOL 12.5 MG TAB PO SCH (16:22)
[2016-08-11] MEDS: WARFARIN 3 MG TAB PO SCH (17:23)
--- NOTE | 2016-08-11 19:38 | P.CONS ---
History of Present Illness - Reason for Consult Consult date: 08/11/16 - Chief Complaint Weakness - History of Present Illness 66-year-old male with a history of prior hospitalizations regarding his lower extremity edema and cellulitis presents now with significant lower extremity edema. The evidence of worsening volume overload as well as atrial fibrillation with accelerated ventricular response. He has a long-standing history of cardiomyopathy with chronic systolic congestive heart failure. The patient now presents feeling significantly poorly with shortness of breath poor exercise tolerance increasing lower extremity edema and some pain to the left leg. He did have an injury to the left leg has been having some drainage. However became a bit more uncomfortable and painful during this current bout of worsening heart failure. Because he presented hospital and was admitted. Infectious disease consultation regarding the cellulitic changes to the left leg. Patient relates is feeling somewhat better since coming to hospital with diuresis. Is still not achieved his baseline status. Review of Systems Constitutional: Denies chills, Denies fever Eyes: bilateral as per HPI (Floaters), denies blurred vision, denies pain Ears, nose, mouth and throat: Denies headache, Denies mouth pain, Denies sore throat Cardiovascular: Reports dyspnea on exertion, Reports edema, Reports irregular heart beat, Reports leg edema, Reports shortness of breath, Denies chest pain, Denies syncope Respiratory: Reports cough, Reports cough with sputum, Reports dyspnea, Reports sleep apnea, Denies excessive sputum, Denies hemoptysis, Denies home oxygen Gastrointestinal: Reports diarrhea, Denies abdominal pain, Denies nausea, Denies vomiting Genitourinary: Reports urinary frequency, Reports urinary hesitancy, Denies dysuria Musculoskeletal: Denies myalgias Integumentary: Reports wounds, no rash or pruritus but has lower extremity edema Neurological: Denies numbness, Denies weakness Psychiatric: Denies anxiety, Denies depression Endocrine: Denies fatigue, weight has increased with his heart failure Past Medical History Past Medical History: Atrial Fibrillation, Heart Failure, COPD, Hyperlipidemia, Hypertension, Pneumonia, Prostate Disorder, Sleep Apnea/CPAP/BIPAP, Vascular Disorder Additional Past Medical History / Comment(s): CPAP MACHINE, ARTHRITIS, HANDS TREMOR AT TIMES, MAC DEGENERATION,VARICOSE VEINS, BRONCHITIS,GOUT, SINUS PROBLEMS AT TIMES. History of Any Multi-Drug Resistant Organisms: MRSA Year Discovered:: 08/30/12 MDRO Source:: Unknown Past Surgical History: Heart Catheterization Additional Past Surgical History / Comment(s): CYST AND PARTIAL JAW REMOVED/ SCREWS IN PLACE, DENTAL SX AGE 8 TO BRING TEETH DOWN,BRONCHOSCOPY, UPPER FRONT BRIDGE Past Anesthesia/Blood Transfusion Reactions: No Reported Reaction Additional Past Anesthesia/Blood Transfusion Reaction / Comm: STATED DURING BRONCH STOPPED BREATHING Past Psychological History: No Psychological Hx Reported Smoking Status: Former smoker Past Alcohol Use History: Rare Additional Past Alcohol Use History / Comment(s): SMOKED CIGARS OCC OFF AND ON X YEARS, QUIT 2009. He has used marijuana in the past. No street drug use. He states he drinks a beer occasionally. Patient lives at home with his . There is a dog in the home. He was in the [employer] [place] in the [place]. He has visited for a couple of times. 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 Past Drug Use History: None Reported - Past Family History Father Family Medical History: Dementia Additional Family Medical History / Comment(s): MACULAR DEGENERATION Mother Family Medical History: Diabetes Mellitus Additional Family Medical History / Comment(s): ANEURYSMS, CATARACTS. Medications and Allergies Home Medications and Allergies Comment(s): Current Medications Acetaminophen/Hydrocodone Bitart (Aurora 5-325) 1 each PO DAILY PRN PRN Reason: Moderate Pain Albuterol Sulfate (Ventolin Nebulized) 2.5 mg INHALATION RT-Q6H PRN PRN Reason: Shortness Of Breath Last Admin: 08/10/16 23:01 Dose: 2.5 mg Allopurinol (Zyloprim) 300 mg PO DAILY [facility] Last Admin: 08/11/16 09:26 Dose: 300 mg Carvedilol (Coreg) 25 mg PO BID-W/MEALS [facility] Last Admin: 08/11/16 16:22 Dose: 25 mg Digoxin (Lanoxin) 125 mcg PO DAILY [facility] Last Admin: 08/11/16 09:26 Dose: 125 mcg Furosemide (Lasix) 40 mg IV Q8HR [facility] Last Admin: 08/11/16 16:22 Dose: 40 mg Hydralazine HCl (Apresoline) 25 mg PO AC-BID [facility] Last Admin: 08/11/16 16:22 Dose: 25 mg Vancomycin HCl 2,000 mg/ (Sodium Chloride) 500 mls @ 167 mls/hr IVPB Q24H [facility] Last Admin: 08/11/16 11:47 Dose: 167 mls/hr Isosorbide Mononitrate (Imdur) 30 mg PO DAILY [facility] Last Admin: 08/11/16 09:26 Dose: 30 mg Metolazone (Zaroxolyn) 5 mg PO DAILY [facility] Last Admin: 08/11/16 09:26 Dose: 5 mg Miscellaneous Information (Potassium Per Protocol) 1 each MISCELLANE DAILY PRN ; Protocol PRN Reason: Per Protocol Miscellaneous Information (Vancomycin Trough Due) 0 each MISCELLANE DIRECTED ONE Stop: 08/12/16 11:01 Naloxone HCl (Narcan) 0.2 mg IV Q2M PRN PRN Reason: Opioid Reversal Naproxen (Naprosyn) 500 mg PO AC-BID [facility] Last Admin: 08/11/16 16:20 Dose: 500 mg Potassium Chloride (K-Dur 20) 20 meq PO AC-BID [facility] Last Admin: 08/11/16 16:21 Dose: 20 meq Silver Sulfadiazine (Silvadene Cream) 1 applic TOPICAL BID [facility] Tamsulosin HCl (Flomax) 0.8 mg PO DAILY [facility] Last Admin: 08/11/16 09:26 Dose: 0.8 mg Warfarin Sodium (Coumadin) 6 mg PO DAILY@1800 [facility] Last Admin: 08/11/16 17:23 Dose: 6 mg Home Medications Medication Instructions Recorded Confirmed Type Isosorbide Mononitrate ER [Imdur] 30 mg PO DAILY 04/11/14 08/09/16 History Tamsulosin HCl [Flomax] 0.8 mg PO DAILY 04/11/14 08/09/16 History hydrALAZINE HCL [Apresoline] 25 mg PO AC-BID 04/11/14 08/09/16 History Albuterol Nebulized [Ventolin 2.5 mg INHALATION RT-Q6H PRN 03/03/16 08/09/16 History Nebulized] Allopurinol [Zyloprim] 300 mg PO DAILY 03/03/16 08/09/16 History Metolazone 5 mg PO DAILY 03/03/16 08/09/16 History Naproxen [Naprosyn] 500 mg PO AC-BID 03/03/16 08/09/16 History Warfarin Sodium 6 mg PO DAILY 03/03/16 08/09/16 History HYDROcodone/APAP 5-325MG [Aurora 1 tab PO DAILY PRN 08/09/16 08/09/16 History 5-325] Allergies Allergy/AdvReac Type Severity Reaction Status Date / Time No Known Allergies Allergy Verified 08/09/16 21:23 Physical Exam Vitals: Vital Signs Temp Pulse Pulse Resp BP BP Pulse Ox 08/11/16 16:00 97.1 F L 85 18 118/90 93 L 08/11/16 12:00 97.1 F L 81 18 115/76 94 L 08/11/16 11:35 97.2 F L 71 20 127/62 93 L 08/11/16 08:30 97.0 F L 80 20 134/87 92 L 08/11/16 08:14 93 L 08/11/16 08:00 80 20 08/11/16 07:50 97.2 F L 85 18 136/81 93 L 08/11/16 07:45 85 19 08/11/16 04:00 97.0 F L 85 20 139/85 95 08/11/16 00:00 97.5 F L 91 20 143/86 91 L 08/10/16 23:07 96 08/10/16 23:03 90 08/10/16 20:00 97.7 F 104 H 20 152/82 140/105 98 Intake and Output 08/11/16 08/11/16 08/11/16 06:59 14:59 22:59 Intake Total 600 880 236 Output Total 2100 1100 Balance -1500 -220 236 Intake: Intake, IV Titration 200 Amount Magnesium Sulfate-D5w Pmx 200 1 gm In Dextrose/Water 1 100ml.bag @ 100 mls/hr IVPB Q1H [facility] Rx#: [id number] Oral 600 680 236 Output: Urine 2100 1100 Other: Voiding Method Bedside Commode Bedside Commode Bedside Commode # Voids 3 3 Weight 156.4 kg 156.4 kg Patient Weight 08/12/16 06:59 Weight 156.4 kg Gen: This is a morbidly obese 65-year-old male. He is sitting up in ICU bed and appears to be in no acute distress. HEENT: Head is atraumatic, normocephalic. Pupils equal, round. Sclerae is anicteric. Conjunctiva pink. Mucous members of the mouth are dry. No thrush noted. NECK: Short and thick. Supple. No JVD. No lymphadenopathy. No thyromegaly. LUNGS: Diminished bilaterally No intercostal retractions. HEART: Irregularly irregular. No murmur. ABDOMEN: Morbidly obese with mild anasarca in the abdominal fold. Soft. Bowel sounds are present. No masses. No tenderness. EXTREMITIES: +3 pedal edema bilaterally with weeping with redness especially of the left leg. There is the open injury site on the pretibial area that measures 2 x 1.2 x 0.1 cm it has just some scant serous drainage. Onychomycosis bilaterally. NEUROLOGICAL: Patient is awake, alert and oriented x3. Cranial nerves 2 through 12 are grossly intact. Results Results: Microbiology 08/09/16 20:55 Blood Blood Culture - Preliminary No Growth after 24 hours History of MRSA CBC & Chem 7: 08/11/16 05:36 08/11/16 10:04 Labs: Abnormal Lab Results - Last 24 Hours (Table) 08/11/16 08/11/16 08/11/16 Range/Units 05:36 05:36 05:36 RBC 3.95 L (4.30-5.90) m/uL Hgb 11.6 L (13.0-17.5) gm/dL Hct 38.3 L (39.0-53.0) % MCHC 30.4 L (31.0-37.0) g/dL RDW 15.9 H (11.5-15.5) % Plt Count 136 L (150-450) k/uL PT 21.5 H (9.0-12.0) sec Sodium 146 H (137-145) mmol/L Potassium 2.7 L* (3.5-5.1) mmol/L Chloride 95 L (98-107) mmol/L Carbon Dioxide 39 H (22-30) mmol/L BUN 48 H (9-20) mg/dL Creatinine 1.59 H (0.66-1.25) mg/dL Glucose 126 H (74-99) mg/dL 08/11/16 Range/Units 10:04 RBC (4.30-5.90) m/uL Hgb (13.0-17.5) gm/dL Hct (39.0-53.0) % MCHC (31.0-37.0) g/dL RDW (11.5-15.5) % Plt Count (150-450) k/uL PT (9.0-12.0) sec Sodium (137-145) mmol/L Potassium 2.9 L* (3.5-5.1) mmol/L Chloride (98-107) mmol/L Carbon Dioxide (22-30) mmol/L BUN (9-20) mg/dL Creatinine (0.66-1.25) mg/dL Glucose (74-99) mg/dL Laboratory Results WBC 5.6 k/uL (3.8-10.6) 08/11/16 05:36 RBC 3.95 m/uL (4.30-5.90) L 08/11/16 05:36 Hgb 11.6 gm/dL (13.0-17.5) L 08/11/16 05:36 Hct 38.3 % (39.0-53.0) L 08/11/16 05:36 MCV 96.9 fL (80.0-100.0) 08/11/16 05:36 MCH 29.4 pg (25.0-35.0) 08/11/16 05:36 MCHC 30.4 g/dL (31.0-37.0) L 08/11/16 05:36 RDW 15.9 % (11.5-15.5) H 08/11/16 05:36 Plt Count 136 k/uL (150-450) L 08/11/16 05:36 Neutrophils % 81 % 08/09/16 20:55 Lymphocytes % 10 % 08/09/16 20:55 Monocytes % 5 % 08/09/16 20:55 Eosinophils % 3 % 08/09/16 20:55 Basophils % 0 % 08/09/16 20:55 Neutrophils # 4.0 k/uL (1.3-7.7) 08/09/16 20:55 Lymphocytes # 0.5 k/uL (1.0-4.8) L 08/09/16 20:55 Monocytes # 0.2 k/uL (0-1.0) 08/09/16 20:55 Eosinophils # 0.2 k/uL (0-0.7) 08/09/16 20:55 Basophils # 0.0 k/uL (0-0.2) 08/09/16 20:55 Hypochromasia Marked 08/11/16 05:36 PT 21.5 sec (9.0-12.0) H 08/11/16 05:36 INR 2.2 (<1.1) 08/11/16 05:36 APTT 33.7 sec (22.0-30.0) H 08/09/16 20:55 VBG pH 7.37 (7.31-7.41) 08/09/16 20:55 VBG pCO2 72 mmHg (37-51) H* 08/09/16 20:55 VBG HCO3 40 mmol/L (24-28) H 08/09/16 20:55 Sodium 146 mmol/L (137-145) H 08/11/16 05:36 Potassium 2.9 mmol/L (3.5-5.1) L* 08/11/16 10:04 Chloride 95 mmol/L (98-107) L 08/11/16 05:36 Carbon Dioxide 39 mmol/L (22-30) H 08/11/16 05:36 Anion Gap 12 mmol/L 08/11/16 05:36 BUN 48 mg/dL (9-20) H 08/11/16 05:36 Creatinine 1.59 mg/dL (0.66-1.25) H 08/11/16 05:36 Est GFR (MDRD) Af Amer 53 (>60 ml/min/1.73 sqM) 08/11/16 05:36 Est GFR (MDRD) Non-Af 44 (>60 ml/min/1.73 sqM) 08/11/16 05:36 Glucose 126 mg/dL (74-99) H 08/11/16 05:36 Plasma Lactic Acid Tavares 1.6 mmol/L (0.7-2.0) 08/09/16 20:55 Calcium 8.8 mg/dL (8.4-10.2) 08/11/16 05:36 Magnesium 1.6 mg/dL (1.6-2.3) 08/11/16 05:36 Total Bilirubin 1.5 mg/dL (0.2-1.3) H 08/09/16 20:55 AST 24 U/L (17-59) 08/09/16 20:55 ALT 30 U/L (21-72) 08/09/16 20:55 Alkaline Phosphatase 91 U/L (38-126) 08/09/16 20:55 CK-MB (CK-2) 1.1 ng/mL (0.0-2.4) 08/09/16 20:55 Troponin I 0.041 ng/mL (0.000-0.034) H* 08/09/16 20:55 NT-Pro-B Natriuret Pep 3900 pg/mL 08/09/16 20:55 Total Protein 6.9 g/dL (6.3-8.2) 08/09/16 20:55 Albumin 3.5 g/dL (3.5-5.0) 08/09/16 20:55 Assessment and Plan (1) CHF (congestive heart failure) Status: Acute (2) Atrial fibrillation with RVR Status: Acute (3) Left leg cellulitis Narrative/Plan: 66-year-old male that has a history of cardiomyopathy, chronic atrial fibrillation and congestive heart failure presents to Hospital with worsening lower extremity edema. In injury to the left leg and resultant small ulceration to that area. There is with the increased edema some drainage occurring to the lower extremity. At this time is to be treated with Silvadene wrap and an Kahlil wrap from the foot to the knee. Elevate while he is at rest. For antibiotic therapy with his history of MRSA he's receiving vancomycin therapy culture has been requested. Blood cultures are negative so far. There is no significant leukocytosis. His hypokalemia is being treated. He is being anticoagulated. He has chronic anemia. At the time of discharge if he has an ulceration to left leg will be admitted, the wound healing Center. If his heart failure is well controlled he could be a candidate for multilayer compression dressings. Status: Acute
[2016-08-12 04:18] LABS: Anisocytosis Slight; CHCM 29.7; HDW 2.92; HGB 11.6 gm/dL (13.0-17.5); Hypochromasia Marked; MCH 29.6 pg (25.0-35.0); MCHC 30.4 g/dL (31.0-37.0); MCV 97.6 fL (80.0-100.0); Macrocytosis Slight; Mean Platelet Volume 7.9; WBC 5.2 k/uL (3.8-10.6)
[2016-08-12 04:23] LABS: INR 1.7 (<1.1); Prothrombin Time 16.7 sec (9.0-12.0)
[2016-08-12 04:28] LABS: Calcium 8.6 mg/dL (8.4-10.2); Magnesium 1.6 mg/dL (1.6-2.3); Potassium 3.3 mmol/L (3.5-5.1); Total Bilirubin 1.7 mg/dL (0.2-1.3); Total Protein 6.9 g/dL (6.3-8.2)
[2016-08-12] MEDS ORDERED: Potassium Replacement Protocol 1 EACH MISC MISCELLANE PRN (05:20)
[2016-08-12] MEDS ORDERED: POTASSIUM CHLORIDE ER 20 MEQ TAB.ER PO SCH ×2 (06:00→13:00)
[2016-08-12] MEDS: CARVEDILOL 12.5 MG TAB PO SCH ×2 (06:52→17:01)
[2016-08-12] MEDS: POTASSIUM CHLORIDE ER 20 MEQ TAB.ER PO SCH ×2 (06:52→16:59)
[2016-08-12] MEDS: NAPROXEN 250 MG TAB PO SCH ×2 (06:52→16:59)
[2016-08-12] MEDS: hydrALAZINE HCL 25 MG TAB PO SCH ×2 (06:53→16:59)
[2016-08-12] MEDS: FUROSEMIDE 10 MG/ML 4 ML VIAL IV SCH ×2 (07:50→15:23)
[2016-08-12] MEDS: ALLOPURINOL 300 MG TAB PO SCH (07:52)
[2016-08-12] MEDS: DIGOXIN 125 MCG TAB PO SCH (07:52)
[2016-08-12] MEDS: ISOSORBIDE MONONITRATE ER 30 MG TAB.ER.24H PO SCH (07:52)
[2016-08-12] MEDS: TAMSULOSIN 0.4 MG CAP.ER.24H PO SCH (07:53)
[2016-08-12] MEDS: METOLAZONE 5 MG TAB PO SCH (07:53)
--- NOTE | 2016-08-12 08:35 | P.PN ---
Subjective Principal diagnosis: Shortness of breath with history of chronic atrial fibrillation. This is a continue progress on a 66-year-old white male essentially admitted for cellulitis with bilateral lower extremity edema with history of congestive heart failure related to atrial fibrillation with rapid ventricular response. Rate has now been starting be controlled and appropriate diuresis has been instituted. The patient states significant fatigue due to lack of sleep. Clinically much improved. Appreciate of appropriate input from cardiology and infectious disease. He is now on appropriate vancomycin for pedis history of MRSA. Objective - Vital Signs Vital signs: Vital Signs Temp 97 F L 08/12/16 07:45 Pulse 94 08/12/16 07:45 Resp 18 08/12/16 07:45 BP 110/66 08/12/16 07:45 Pulse Ox 92 L 08/12/16 07:45 Intake & Output 08/11/16 08/12/16 08/12/16 18:59 06:59 18:59 Intake Total 1116 300 Output Total 1100 4200 Balance 16 -3900 Weight 156.4 kg 154.2 kg Intake: Intake, IV Titration 200 300 Amount Magnesium Sulfate-D5w Pmx 200 1 gm In Dextrose/Water 1 100ml.bag @ 100 mls/hr IVPB Q1H [facility] Rx#: [id number] Potassium Chloride 10 meq 300 Lidocaine 2% Inj 10 mg In Sodium Chloride 0.9% 100 ml @ 100 mls/hr IV Q1HR [facility] Rx#:[id number] Oral 916 Output: Urine 1100 4200 Other: Voiding Method Bedside Commode Bedside Commode # Voids 3 3 - Constitutional General appearance: Present: obese - EENT Eyes: Absent: abnormal pupil - Respiratory Respiratory: bilateral: CTA - Cardiovascular Rhythm: irregularly irregular Heart sounds: normal: S1, S2 - Gastrointestinal General gastrointestinal: Present: soft. Absent: tenderness - Integumentary Integumentary Comment(s): Edema still noted. - Neurologic Neurologic: Present: CNII-XII intact - Psychiatric Psychiatric: Present: A&O x's 3, appropriate affect, intact judgment & insight - Labs CBC & Chem 7: 08/12/16 03:32 08/12/16 03:32 Labs: Abnormal Lab Results - Last 24 Hours (Table) 08/11/16 08/11/16 08/12/16 Range/Units 10:04 20:20 03:32 RBC (4.30-5.90) m/uL Hgb (13.0-17.5) gm/dL Hct (39.0-53.0) % MCHC (31.0-37.0) g/dL RDW (11.5-15.5) % Plt Count (150-450) k/uL PT (9.0-12.0) sec Potassium 2.9 L* 3.2 L 3.3 L (3.5-5.1) mmol/L Chloride 92 L (98-107) mmol/L Carbon Dioxide 42 H* (22-30) mmol/L BUN 54 H (9-20) mg/dL Creatinine 1.74 H (0.66-1.25) mg/dL Glucose 112 H (74-99) mg/dL Total Bilirubin 1.7 H (0.2-1.3) mg/dL 08/12/16 08/12/16 Range/Units 03:32 03:32 RBC 3.90 L (4.30-5.90) m/uL Hgb 11.6 L (13.0-17.5) gm/dL Hct 38.0 L (39.0-53.0) % MCHC 30.4 L (31.0-37.0) g/dL RDW 16.0 H (11.5-15.5) % Plt Count 121 L (150-450) k/uL PT 16.7 H (9.0-12.0) sec Potassium (3.5-5.1) mmol/L Chloride (98-107) mmol/L Carbon Dioxide (22-30) mmol/L BUN (9-20) mg/dL Creatinine (0.66-1.25) mg/dL Glucose (74-99) mg/dL Total Bilirubin (0.2-1.3) mg/dL Assessment and Plan (1) Atrial fibrillation with RVR Status: Acute (2) CHF (congestive heart failure) Status: Acute (3) Bilateral lower leg cellulitis Status: Acute (4) Edema extremities Status: Acute Plan: Continue diuresis. Check CBC and CMP in a.m. Clinically improved but still in need appropriate IV therapy. Start physical therapy in a.m. if strength is appropriate. Time with Patient: Less than 30
[2016-08-12] MEDS ORDERED: VANCOMYCIN TROUGH DUE 1 EACH MISC MISCELLANE ONE (11:00)
--- NOTE | 2016-08-12 11:22 | P.PN ---
Subjective Principal diagnosis: Shortness of breath and palpitations. This is a 66-year-old gentleman with history of cardiomyopathy, congestive heart failure, chronic atrial fibrillation, hypertension, COPD, who initially presented to the hospital with symptoms of shortness of breath with associated palpitations. Patient has chronic leg edema as well as chronic stasis in both his legs. He recently had a injury to his left leg, causing a laceration to that leg which has been draining. He had an echocardiogram with Doppler study performed last year which revealed an ejection fraction of 35%. BNP on admission here 3900. Patient was initiated on IV Lasix, diuresing well on IV Lasix. Weight today is down 2 kg. Potassium today 3.3, INR 1.7. BUN 54 and creatinine 1.7. Magnesium level I.7. Overall the patient states she's feeling significantly better today. Bilateral legs had been wrapped with Kahlil wraps today. Improvement in edema bilaterally noted. Objective - Vital Signs Vital signs: Vital Signs Temp 97 F L 08/12/16 07:45 Pulse 94 08/12/16 07:45 Resp 18 08/12/16 08:00 BP 110/66 08/12/16 07:45 Pulse Ox 92 L 08/12/16 07:45 Intake & Output 08/11/16 08/12/16 08/12/16 18:59 06:59 18:59 Intake Total 1116 300 300 Output Total 1100 4200 1300 Balance 16 -3900 -1000 Weight 156.4 kg 154.2 kg Intake: Intake, IV Titration 200 300 Amount Magnesium Sulfate-D5w Pmx 200 1 gm In Dextrose/Water 1 100ml.bag @ 100 mls/hr IVPB Q1H JULIEN Rx#: [id number] Potassium Chloride 10 meq 300 Lidocaine 2% Inj 10 mg In Sodium Chloride 0.9% 100 ml @ 100 mls/hr IV Q1HR JULIEN Rx#:[id number] Oral 916 300 Output: Urine 1100 4200 1300 Other: Voiding Method Bedside Commode Bedside Commode # Voids 3 3 - Exam PHYSICAL EXAMINATION: HEENT: Head is atraumatic, normocephalic. Pupils equal, round. Neck is supple. There is no elevated jugular venous pressure. HEART EXAMINATION: Heart S1 and S2 irregularly irregular CHEST EXAMINATION: Lungs reveal diminished air entry to bilateral bases. ABDOMEN: Soft, obese, nontender. Bowel sounds are heard. No organomegaly noted. EXTREMITIES: 1+ peripheral pulses with1- 2+ evidence of peripheral edema and no calf tenderness noted. Evidence of chronic venous stasis and cellulitis. Bilateral Kahlil wraps are in today. NEUROLOGIC patient is awake, alert and oriented -3. . - Labs CBC & Chem 7: 08/12/16 03:32 08/12/16 03:32 Labs: Abnormal Lab Results - Last 24 Hours (Table) 08/11/16 08/12/16 08/12/16 Range/Units 20:20 03:32 03:32 RBC (4.30-5.90) m/uL Hgb (13.0-17.5) gm/dL Hct (39.0-53.0) % MCHC (31.0-37.0) g/dL RDW (11.5-15.5) % Plt Count (150-450) k/uL PT 16.7 H (9.0-12.0) sec Potassium 3.2 L 3.3 L (3.5-5.1) mmol/L Chloride 92 L (98-107) mmol/L Carbon Dioxide 42 H* (22-30) mmol/L BUN 54 H (9-20) mg/dL Creatinine 1.74 H (0.66-1.25) mg/dL Glucose 112 H (74-99) mg/dL Total Bilirubin 1.7 H (0.2-1.3) mg/dL 08/12/16 Range/Units 03:32 RBC 3.90 L (4.30-5.90) m/uL Hgb 11.6 L (13.0-17.5) gm/dL Hct 38.0 L (39.0-53.0) % MCHC 30.4 L (31.0-37.0) g/dL RDW 16.0 H (11.5-15.5) % Plt Count 121 L (150-450) k/uL PT (9.0-12.0) sec Potassium (3.5-5.1) mmol/L Chloride (98-107) mmol/L Carbon Dioxide (22-30) mmol/L BUN (9-20) mg/dL Creatinine (0.66-1.25) mg/dL Glucose (74-99) mg/dL Total Bilirubin (0.2-1.3) mg/dL Microbiology - Last 24 Hours (Table) 08/11/16 21:40 Wound Culture - Preliminary Leg - Left Assessment and Plan (1) Systolic CHF, acute on chronic Status: Acute (2) Chronic a-fib Status: Acute (3) NICM (nonischemic cardiomyopathy) Status: Acute (4) Cellulitis Status: Acute (5) Bilateral lower leg cellulitis Status: Acute (6) Hypokalemia Status: Acute (7) Hypomagnesemia Status: Acute Plan: From cardiology's perspective, we will recommend to continue IV Lasix. Continue Coumadin to maintain an INR in the range of 2-2.2. DNP note has been reviewed, I agree with a documented findings and plan of care. Patient was seen and examined.
[2016-08-12] MEDS: VANCOMYCIN 2,000 MG in SODIUM CHLORIDE 0.9% 500 ML IVPB SCH (12:53)
[2016-08-12] MEDS: WARFARIN 3 MG TAB PO SCH (17:02)
--- NOTE | 2016-08-12 22:07 | P.PN ---
Subjective Principal diagnosis: Weakness 66-year-old male with a history of prior hospitalizations regarding his lower extremity edema and cellulitis presents now with significant lower extremity edema. The evidence of worsening volume overload as well as atrial fibrillation with accelerated ventricular response. He has a long-standing history of cardiomyopathy with chronic systolic congestive heart failure. The patient now presents feeling significantly poorly with shortness of breath poor exercise tolerance increasing lower extremity edema and some pain to the left leg. He did have an injury to the left leg has been having some drainage. However became a bit more uncomfortable and painful during this current bout of worsening heart failure. Because he presented hospital and was admitted. Infectious disease consultation regarding the cellulitic changes to the left leg. Patient relates is feeling somewhat better since coming to hospital with diuresis. Still has edema but feels better. Objective - Vital Signs Vital signs: Vital Signs Temp 97.1 F L 08/12/16 21:13 Pulse 85 08/12/16 21:13 Resp 16 08/12/16 21:13 BP 152/79 08/12/16 21:13 Pulse Ox 96 08/12/16 21:13 Intake & Output 08/12/16 08/12/16 08/13/16 06:59 18:59 06:59 Intake Total 300 628 Output Total 4200 1300 Balance -3900 -672 Weight 154.2 kg Intake: Intake, IV Titration 300 Amount Potassium Chloride 10 meq 300 Lidocaine 2% Inj 10 mg In Sodium Chloride 0.9% 100 ml @ 100 mls/hr IV Q1HR JULIEN Rx#:[id number] Oral 628 Output: Urine 4200 1300 Other: Voiding Method Bedside Commode Bedside Commode # Voids 3 1 - Exam Gen: This is a morbidly obese 65-year-old male. He is sitting up in ICU bed and appears to be in no acute distress. HEENT: Head is atraumatic, normocephalic. Pupils equal, round. Sclerae is anicteric. Conjunctiva pink. Mucous members of the mouth are dry. No thrush noted. NECK: Short and thick. Supple. No JVD. No lymphadenopathy. No thyromegaly. LUNGS: Diminished bilaterally No intercostal retractions. HEART: Irregularly irregular. No murmur. ABDOMEN: Morbidly obese with mild anasarca in the abdominal fold. Soft. Bowel sounds are present. No masses. No tenderness. EXTREMITIES: +3 pedal edema bilaterally with weeping with redness especially of the left leg. There is the open injury site on the pretibial area that measures 2 x 1.2 x 0.1 cm it has just some scant serous drainage. Onychomycosis bilaterally. NEUROLOGICAL: Patient is awake, alert and oriented x3. Cranial nerves 2 through 12 are grossly intact. - Labs CBC & Chem 7: 08/12/16 03:32 08/12/16 19:41 Labs: Abnormal Lab Results - Last 24 Hours (Table) 08/12/16 08/12/16 08/12/16 Range/Units 03:32 03:32 03:32 RBC 3.90 L (4.30-5.90) m/uL Hgb 11.6 L (13.0-17.5) gm/dL Hct 38.0 L (39.0-53.0) % MCHC 30.4 L (31.0-37.0) g/dL RDW 16.0 H (11.5-15.5) % Plt Count 121 L (150-450) k/uL PT 16.7 H (9.0-12.0) sec Potassium 3.3 L (3.5-5.1) mmol/L Chloride 92 L (98-107) mmol/L Carbon Dioxide 42 H* (22-30) mmol/L BUN 54 H (9-20) mg/dL Creatinine 1.74 H (0.66-1.25) mg/dL Glucose 112 H (74-99) mg/dL Total Bilirubin 1.7 H (0.2-1.3) mg/dL 08/12/16 08/12/16 Range/Units 11:04 14:26 RBC (4.30-5.90) m/uL Hgb (13.0-17.5) gm/dL Hct (39.0-53.0) % MCHC (31.0-37.0) g/dL RDW (11.5-15.5) % Plt Count (150-450) k/uL PT (9.0-12.0) sec Potassium 3.0 L* 3.1 L (3.5-5.1) mmol/L Chloride (98-107) mmol/L Carbon Dioxide (22-30) mmol/L BUN (9-20) mg/dL Creatinine (0.66-1.25) mg/dL Glucose (74-99) mg/dL Total Bilirubin (0.2-1.3) mg/dL Microbiology - Last 24 Hours (Table) 08/11/16 21:40 Wound Culture - Preliminary Leg - Left Laboratory Results WBC 5.2 k/uL (3.8-10.6) 08/12/16 03:32 RBC 3.90 m/uL (4.30-5.90) L 08/12/16 03:32 Hgb 11.6 gm/dL (13.0-17.5) L 08/12/16 03:32 Hct 38.0 % (39.0-53.0) L 08/12/16 03:32 MCV 97.6 fL (80.0-100.0) 08/12/16 03:32 MCH 29.6 pg (25.0-35.0) 08/12/16 03:32 MCHC 30.4 g/dL (31.0-37.0) L 08/12/16 03:32 RDW 16.0 % (11.5-15.5) H 08/12/16 03:32 Plt Count 121 k/uL (150-450) L 08/12/16 03:32 Neutrophils % 81 % 08/09/16 20:55 Lymphocytes % 10 % 08/09/16 20:55 Monocytes % 5 % 08/09/16 20:55 Eosinophils % 3 % 08/09/16 20:55 Basophils % 0 % 08/09/16 20:55 Neutrophils # 4.0 k/uL (1.3-7.7) 08/09/16 20:55 Lymphocytes # 0.5 k/uL (1.0-4.8) L 08/09/16 20:55 Monocytes # 0.2 k/uL (0-1.0) 08/09/16 20:55 Eosinophils # 0.2 k/uL (0-0.7) 08/09/16 20:55 Basophils # 0.0 k/uL (0-0.2) 08/09/16 20:55 Hypochromasia Marked 08/12/16 03:32 Anisocytosis Slight 08/12/16 03:32 Macrocytosis Slight 08/12/16 03:32 PT 16.7 sec (9.0-12.0) H 08/12/16 03:32 INR 1.7 (<1.1) 08/12/16 03:32 APTT 33.7 sec (22.0-30.0) H 08/09/16 20:55 VBG pH 7.37 (7.31-7.41) 08/09/16 20:55 VBG pCO2 72 mmHg (37-51) H* 08/09/16 20:55 VBG HCO3 40 mmol/L (24-28) H 08/09/16 20:55 Sodium 145 mmol/L (137-145) 08/12/16 03:32 Potassium 3.6 mmol/L (3.5-5.1) 08/12/16 19:41 Chloride 92 mmol/L (98-107) L 08/12/16 03:32 Carbon Dioxide 42 mmol/L (22-30) H* 08/12/16 03:32 Anion Gap 11 mmol/L 08/12/16 03:32 BUN 54 mg/dL (9-20) H 08/12/16 03:32 Creatinine 1.74 mg/dL (0.66-1.25) H 08/12/16 03:32 Est GFR (MDRD) Af Amer 48 (>60 ml/min/1.73 sqM) 08/12/16 03:32 Est GFR (MDRD) Non-Af 40 (>60 ml/min/1.73 sqM) 08/12/16 03:32 Glucose 112 mg/dL (74-99) H 08/12/16 03:32 Plasma Lactic Acid Tavares 1.6 mmol/L (0.7-2.0) 08/09/16 20:55 Calcium 8.6 mg/dL (8.4-10.2) 08/12/16 03:32 Magnesium 1.6 mg/dL (1.6-2.3) 08/12/16 03:32 Total Bilirubin 1.7 mg/dL (0.2-1.3) H 08/12/16 03:32 AST 25 U/L (17-59) 08/12/16 03:32 ALT 33 U/L (21-72) 08/12/16 03:32 Alkaline Phosphatase 89 U/L (38-126) 08/12/16 03:32 CK-MB (CK-2) 1.1 ng/mL (0.0-2.4) 08/09/16 20:55 Troponin I 0.041 ng/mL (0.000-0.034) H* 08/09/16 20:55 NT-Pro-B Natriuret Pep 3900 pg/mL 08/09/16 20:55 Total Protein 6.9 g/dL (6.3-8.2) 08/12/16 03:32 Albumin 3.5 g/dL (3.5-5.0) 08/12/16 03:32 Vancomycin Trough 16.9 ug/mL 08/12/16 11:04 Microbiology 08/11/16 21:40 Leg - Left Wound Culture - Preliminary 08/09/16 20:55 Blood Blood Culture - Preliminary No Growth after 48 hours Assessment and Plan (1) CHF (congestive heart failure) Status: Acute (2) Atrial fibrillation with RVR Status: Acute (3) Left leg cellulitis Narrative/Plan: 66-year-old male that has a history of cardiomyopathy, chronic atrial fibrillation and congestive heart failure presents to Hospital with worsening lower extremity edema. In injury to the left leg and resultant small ulceration to that area. There is with the increased edema some drainage occurring to the lower extremity. At this time is to be treated with Silvadene wrap and an Kahlil wrap from the foot to the knee. Elevate while he is at rest. For antibiotic therapy with his history of MRSA he's receiving vancomycin therapy culture has been requested. Blood cultures are negative so far. There is no significant leukocytosis. His hypokalemia is being treated. He is being anticoagulated. He has chronic anemia. At the time of discharge he may have the leg ulceration followed at the wound healing Center. If his heart failure is well controlled he could be a candidate for multilayer compression dressings. Status: Acute
[2016-08-13] MEDS: FUROSEMIDE 10 MG/ML 4 ML VIAL IV SCH ×2 (00:10→08:55)
[2016-08-13] MEDS: CARVEDILOL 12.5 MG TAB PO SCH ×2 (06:25→17:18)
[2016-08-13] MEDS: NAPROXEN 250 MG TAB PO SCH ×2 (06:26→17:17)
[2016-08-13] MEDS: hydrALAZINE HCL 25 MG TAB PO SCH ×2 (06:26→17:18)
[2016-08-13] MEDS: POTASSIUM CHLORIDE ER 20 MEQ TAB.ER PO SCH ×2 (06:27→17:18)
[2016-08-13 06:44] LABS: CH 29.1; CHCM 29.8; HDW 2.94; HGB 12.2 gm/dL (13.0-17.5); Hypochromasia Marked; MCH 29.6 pg (25.0-35.0); MCHC 30.4 g/dL (31.0-37.0); MCV 97.5 fL (80.0-100.0); RBC 4.11 m/uL (4.30-5.90); RDW 15.8 % (11.5-15.5); WBC 5.6 k/uL (3.8-10.6)
[2016-08-13 06:53] LABS: INR 1.8 (<1.1); Prothrombin Time 17.8 sec (9.0-12.0)
[2016-08-13 06:57] LABS: Calcium 8.7 mg/dL (8.4-10.2); Potassium 3.1 mmol/L (3.5-5.1); Total Bilirubin 1.7 mg/dL (0.2-1.3); Total Protein 7.1 g/dL (6.3-8.2)
[2016-08-13] MEDS: DIGOXIN 125 MCG TAB PO SCH (08:55)
[2016-08-13] MEDS: ALLOPURINOL 300 MG TAB PO SCH (08:55)
[2016-08-13] MEDS: METOLAZONE 5 MG TAB PO SCH (08:55)
[2016-08-13] MEDS: ISOSORBIDE MONONITRATE ER 30 MG TAB.ER.24H PO SCH (08:55)
[2016-08-13] MEDS: TAMSULOSIN 0.4 MG CAP.ER.24H PO SCH (08:55)
[2016-08-13] MEDS ORDERED: POTASSIUM CHLORIDE ER 20 MEQ TAB.ER PO ONE (10:00)
--- NOTE | 2016-08-13 12:01 | PN ---
This is the 66-year-old gentleman who is admitted to hospital with cardiomyopathy, congestive heart failure, chronic atrial fibrillation, COPD, who is admitted to hospital with congestive heart failure. He is feeling much better. The Kahlil wraps have improved his leg swelling. On exam, patient is afebrile. Vital signs are stable. There is no jugular venous distention. Chest exam reveals diminished air entry at the bases. Heart exam reveals first and second heart sounds. No gallop. There is a systolic murmur in the left lower sternal border. Exam of extremities reveals bilateral 1+ pitting edema. Labs show a hemoglobin of 12.2. Potassium is 3.1. BUN is 59. Creatinine is 2. ASSESSMENT: 1. Acute exacerbation of chronic systolic heart failure. 2. History of atrial fibrillation. PLAN: The patient is better. We will continue with the oral diuretics, hopefully home over the next day or two. He is on IV antibiotic for cellulitis.
--- NOTE | 2016-08-13 14:37 | P.PN ---
Subjective Principal diagnosis: Weakness 66-year-old male with a history of prior hospitalizations regarding his lower extremity edema and cellulitis presents now with significant lower extremity edema. The evidence of worsening volume overload as well as atrial fibrillation with accelerated ventricular response. He has a long-standing history of cardiomyopathy with chronic systolic congestive heart failure. The patient now presents feeling significantly poorly with shortness of breath poor exercise tolerance increasing lower extremity edema and some pain to the left leg. He did have an injury to the left leg has been having some drainage. However became a bit more uncomfortable and painful during this current bout of worsening heart failure. Because he presented hospital and was admitted. Infectious disease consultation regarding the cellulitic changes to the left leg. Patient relates is feeling somewhat better since coming to hospital with diuresis. Still has edema but feels better. Objective - Vital Signs Vital signs: Vital Signs Temp 97 F L 08/13/16 12:00 Pulse 85 08/13/16 12:00 Resp 16 08/13/16 12:00 BP 129/89 08/13/16 12:00 Pulse Ox 95 08/13/16 12:00 Intake & Output 08/12/16 08/13/16 08/13/16 18:59 06:59 18:59 Intake Total 628 720 Output Total 1300 3900 600 Balance -672 -3900 120 Weight 152.2 kg Intake: Oral 628 720 Output: Urine 1300 3900 600 Other: Voiding Method Bedside Commode # Voids 1 2 - Exam Gen: This is a morbidly obese 65-year-old male. He is sitting up in ICU bed and appears to be in no acute distress. HEENT: Head is atraumatic, normocephalic. Pupils equal, round. Sclerae is anicteric. Conjunctiva pink. Mucous members of the mouth are dry. No thrush noted. NECK: Short and thick. Supple. No JVD. No lymphadenopathy. No thyromegaly. LUNGS: Diminished bilaterally No intercostal retractions. HEART: Irregularly irregular. No murmur. ABDOMEN: Morbidly obese with mild anasarca in the abdominal fold. Soft. Bowel sounds are present. No masses. No tenderness. EXTREMITIES: +2 pedal edema bilaterally with improvement of the swelling erythema and redness and drainage. There is the open injury site on the pretibial area that measures 2 x 1.2 x 0.1 cm it has just some scant serous drainage. Onychomycosis bilaterally. NEUROLOGICAL: Patient is awake, alert and oriented x3. - Labs CBC & Chem 7: 08/13/16 06:23 08/13/16 06:23 Labs: Abnormal Lab Results - Last 24 Hours (Table) 08/12/16 08/13/16 08/13/16 Range/Units 14:26 06:23 06:23 RBC (4.30-5.90) m/uL Hgb (13.0-17.5) gm/dL MCHC (31.0-37.0) g/dL RDW (11.5-15.5) % Plt Count (150-450) k/uL PT 17.8 H (9.0-12.0) sec Sodium 146 H (137-145) mmol/L Potassium 3.1 L 3.1 L (3.5-5.1) mmol/L Chloride 87 L (98-107) mmol/L Carbon Dioxide 48 H* (22-30) mmol/L BUN 59 H (9-20) mg/dL Creatinine 2.05 H (0.66-1.25) mg/dL Glucose 115 H (74-99) mg/dL Total Bilirubin 1.7 H (0.2-1.3) mg/dL 08/13/16 Range/Units 06:23 RBC 4.11 L (4.30-5.90) m/uL Hgb 12.2 L (13.0-17.5) gm/dL MCHC 30.4 L (31.0-37.0) g/dL RDW 15.8 H (11.5-15.5) % Plt Count 129 L (150-450) k/uL PT (9.0-12.0) sec Sodium (137-145) mmol/L Potassium (3.5-5.1) mmol/L Chloride (98-107) mmol/L Carbon Dioxide (22-30) mmol/L BUN (9-20) mg/dL Creatinine (0.66-1.25) mg/dL Glucose (74-99) mg/dL Total Bilirubin (0.2-1.3) mg/dL Microbiology - Last 24 Hours (Table) 08/11/16 21:40 Gram Stain - Preliminary Leg - Left Wound Culture - Preliminary Gram Neg Bacilli Laboratory Results WBC 5.6 k/uL (3.8-10.6) 08/13/16 06:23 RBC 4.11 m/uL (4.30-5.90) L 08/13/16 06:23 Hgb 12.2 gm/dL (13.0-17.5) L 08/13/16 06:23 Hct 40.0 % (39.0-53.0) 08/13/16 06:23 MCV 97.5 fL (80.0-100.0) 08/13/16 06:23 MCH 29.6 pg (25.0-35.0) 08/13/16 06:23 MCHC 30.4 g/dL (31.0-37.0) L 08/13/16 06:23 RDW 15.8 % (11.5-15.5) H 08/13/16 06:23 Plt Count 129 k/uL (150-450) L 08/13/16 06:23 Neutrophils % 81 % 08/09/16 20:55 Lymphocytes % 10 % 08/09/16 20:55 Monocytes % 5 % 08/09/16 20:55 Eosinophils % 3 % 08/09/16 20:55 Basophils % 0 % 08/09/16 20:55 Neutrophils # 4.0 k/uL (1.3-7.7) 08/09/16 20:55 Lymphocytes # 0.5 k/uL (1.0-4.8) L 08/09/16 20:55 Monocytes # 0.2 k/uL (0-1.0) 08/09/16 20:55 Eosinophils # 0.2 k/uL (0-0.7) 08/09/16 20:55 Basophils # 0.0 k/uL (0-0.2) 08/09/16 20:55 Hypochromasia Marked 08/13/16 06:23 Anisocytosis Slight 08/12/16 03:32 Macrocytosis Slight 08/12/16 03:32 PT 17.8 sec (9.0-12.0) H 08/13/16 06:23 INR 1.8 (<1.1) 08/13/16 06:23 APTT 33.7 sec (22.0-30.0) H 08/09/16 20:55 VBG pH 7.37 (7.31-7.41) 08/09/16 20:55 VBG pCO2 72 mmHg (37-51) H* 08/09/16 20:55 VBG HCO3 40 mmol/L (24-28) H 08/09/16 20:55 Sodium 146 mmol/L (137-145) H 08/13/16 06:23 Potassium 3.1 mmol/L (3.5-5.1) L 08/13/16 06:23 Chloride 87 mmol/L (98-107) L 08/13/16 06:23 Carbon Dioxide 48 mmol/L (22-30) H* 08/13/16 06:23 Anion Gap 11 mmol/L 08/13/16 06:23 BUN 59 mg/dL (9-20) H 08/13/16 06:23 Creatinine 2.05 mg/dL (0.66-1.25) H 08/13/16 06:23 Est GFR (MDRD) Af Amer 40 (>60 ml/min/1.73 sqM) 08/13/16 06:23 Est GFR (MDRD) Non-Af 33 (>60 ml/min/1.73 sqM) 08/13/16 06:23 Glucose 115 mg/dL (74-99) H 08/13/16 06:23 Plasma Lactic Acid Tavares 1.6 mmol/L (0.7-2.0) 08/09/16 20:55 Calcium 8.7 mg/dL (8.4-10.2) 08/13/16 06:23 Magnesium 1.6 mg/dL (1.6-2.3) 08/12/16 03:32 Total Bilirubin 1.7 mg/dL (0.2-1.3) H 08/13/16 06:23 AST 29 U/L (17-59) 08/13/16 06:23 ALT 32 U/L (21-72) 08/13/16 06:23 Alkaline Phosphatase 91 U/L (38-126) 08/13/16 06:23 CK-MB (CK-2) 1.1 ng/mL (0.0-2.4) 08/09/16 20:55 Troponin I 0.041 ng/mL (0.000-0.034) H* 08/09/16 20:55 NT-Pro-B Natriuret Pep 3900 pg/mL 08/09/16 20:55 Total Protein 7.1 g/dL (6.3-8.2) 08/13/16 06:23 Albumin 3.5 g/dL (3.5-5.0) 08/13/16 06:23 Vancomycin Trough 16.9 ug/mL 08/12/16 11:04 Microbiology 08/11/16 21:40 Leg - Left Gram Stain - Preliminary 08/11/16 21:40 Leg - Left Wound Culture - Preliminary Gram Neg Bacilli 08/09/16 20:55 Blood Blood Culture - Preliminary No Growth after 72 hours Assessment and Plan (1) CHF (congestive heart failure) Status: Acute (2) Atrial fibrillation with RVR Status: Acute (3) Left leg cellulitis Narrative/Plan: 66-year-old male that has a history of cardiomyopathy, chronic atrial fibrillation and congestive heart failure presents to Hospital with worsening lower extremity edema. In injury to the left leg and resultant small ulceration to that area. There is with the increased edema some drainage occurring to the lower extremity. At this time is to be treated with Silvadene wrap and an Kahlil wrap from the foot to the knee. Elevate while he is at rest. For antibiotic therapy with his history of MRSA he's receiving vancomycin therapy culture has been requested. Blood cultures are negative so far. There is no significant leukocytosis. His hypokalemia is being treated. He is being anticoagulated. He has chronic anemia. At the time of discharge, he may have the leg ulceration followed at the wound healing Center. The arterial Dopplers show evidence of adequate ankle-brachial index. If his heart failure is well controlled he could be a candidate for multilayer compression dressings. Status: Acute
[2016-08-13] MEDS: FUROSEMIDE 40 MG TAB PO SCH (15:39)
[2016-08-13] MEDS: VANCOMYCIN 1,750 MG in SODIUM CHLORIDE 0.9% 250 ML IVPB SCH (15:39)
[2016-08-13] MEDS: WARFARIN 7.5 MG TAB PO SCH (17:17)
[2016-08-13] MEDS ORDERED: Potassium Replacement Protocol 1 EACH MISC MISCELLANE PRN (20:42)
[2016-08-13] MEDS ORDERED: POTASSIUM CHLORIDE 10 MEQ, LIDOCAINE 2% INJ 10 MG in SODIUM CHLORIDE 0.9% 100 ML IV SCH (21:00)
[2016-08-14 06:47] LABS: Anisocytosis Slight; CH 29.2; CHCM 30.4; HCT 40.7 % (39.0-53.0); HDW 2.92; HGB 12.5 gm/dL (13.0-17.5); Hypochromasia Marked; MCH 29.6 pg (25.0-35.0); MCHC 30.8 g/dL (31.0-37.0); MCV 96.1 fL (80.0-100.0); Mean Platelet Volume 7.9; RBC 4.24 m/uL (4.30-5.90); WBC 5.2 k/uL (3.8-10.6)
[2016-08-14 06:48] LABS: Prothrombin Time 19.1 sec (9.0-12.0)
[2016-08-14] MEDS: hydrALAZINE HCL 25 MG TAB PO SCH ×2 (07:01→17:32)
[2016-08-14] MEDS: NAPROXEN 250 MG TAB PO SCH ×2 (07:01→17:32)
[2016-08-14] MEDS: CARVEDILOL 12.5 MG TAB PO SCH ×2 (07:01→17:32)
[2016-08-14] MEDS: POTASSIUM CHLORIDE ER 20 MEQ TAB.ER PO SCH ×2 (07:02→17:34)
[2016-08-14 07:03] LABS: Calcium 8.5 mg/dL (8.4-10.2); Potassium 3.1 mmol/L (3.5-5.1); Total Bilirubin 1.9 mg/dL (0.2-1.3); Total Protein 6.9 g/dL (6.3-8.2)
[2016-08-14] MEDS: TAMSULOSIN 0.4 MG CAP.ER.24H PO SCH (08:41)
[2016-08-14] MEDS: ALLOPURINOL 300 MG TAB PO SCH (08:42)
[2016-08-14] MEDS: FUROSEMIDE 40 MG TAB PO SCH ×2 (08:42→17:32)
[2016-08-14] MEDS: ISOSORBIDE MONONITRATE ER 30 MG TAB.ER.24H PO SCH (08:42)
[2016-08-14] MEDS: METOLAZONE 5 MG TAB PO SCH (08:42)
[2016-08-14] MEDS: DIGOXIN 125 MCG TAB PO SCH (08:44)
[2016-08-14] MEDS: MAGNESIUM SULFATE-D5W PMX 1 GM in DEXTROSE/WATER 1 100ML.BAG IVPB SCH ×2 (11:07→11:08)
[2016-08-14] MEDS ORDERED: POTASSIUM CHLORIDE 20 MEQ, LIDOCAINE 2% INJ 20 MG in SODIUM CHLORIDE 0.9% 100 ML IVPB SCH (12:00)
--- NOTE | 2016-08-14 12:01 | P.PN ---
Subjective Principal diagnosis: Shortness of breath and palpitations. This is a 66-year-old gentleman with history of cardiomyopathy, congestive heart failure, chronic atrial fibrillation, hypertension, COPD, who initially presented to the hospital with symptoms of shortness of breath with associated palpitations. Patient has chronic leg edema as well as chronic stasis in both his legs. He recently had a injury to his left leg, causing a laceration to that leg which has been draining. He had an echocardiogram with Doppler study performed last year which revealed an ejection fraction of 35%. BNP on admission here 3900. Patient was initiated on IV Lasix, diuresing well on IV Lasix. patient is also on Zaroxolyn. Potassium today 3.1, INR 1.7. BUN 54 and creatinine 1.7. Magnesium level I.9. Overall the patient states she's feeling significantly better today. Bilateral legs had been wrapped with Kahlil wraps today. Improvement in edema bilaterally noted. Objective - Vital Signs Vital signs: Vital Signs Temp 97.8 F 08/14/16 08:00 Pulse 88 08/14/16 08:00 Resp 16 08/14/16 08:00 BP 127/68 08/14/16 08:00 Pulse Ox 93 L 08/14/16 08:00 Intake & Output 08/13/16 08/14/16 08/14/16 18:59 06:59 18:59 Intake Total 1080 1150 298 Output Total 600 2450 Balance 480 -1300 298 Weight 159 kg Intake: IV 430 0.9 80 Potassium Chloride 10 meq 100 Lidocaine 2% Inj 10 mg In Sodium Chloride 0.9% 100 ml @ 100 mls/hr IV Q1HR JULIEN Rx#:[id number] Vancomycin 1,750 mg In 250 Sodium Chloride 0.9% 250 ml @ 125 mls/hr IVPB Q24H JULIEN Rx#:[id number] Oral 1080 720 298 Output: Urine 600 2450 Other: Voiding Method Toilet Toilet Bedside Commode Bedside Commode # Voids 2 1 - Exam PHYSICAL EXAMINATION: HEENT: Head is atraumatic, normocephalic. Pupils equal, round. Neck is supple. There is no elevated jugular venous pressure. HEART EXAMINATION: Heart S1 and S2 irregularly irregular CHEST EXAMINATION: Lungs reveal diminished air entry to bilateral bases. ABDOMEN: Soft, obese, nontender. Bowel sounds are heard. No organomegaly noted. EXTREMITIES: 1+ peripheral pulses with1- 2+ evidence of peripheral edema and no calf tenderness noted. Evidence of chronic venous stasis and cellulitis. Bilateral Kahlil wraps are in today. NEUROLOGIC patient is awake, alert and oriented -3. . - Labs CBC & Chem 7: 08/14/16 06:14 08/14/16 06:14 Labs: Abnormal Lab Results - Last 24 Hours (Table) 08/13/16 08/13/16 08/14/16 Range/Units 15:43 18:22 06:14 RBC (4.30-5.90) m/uL Hgb (13.0-17.5) gm/dL MCHC (31.0-37.0) g/dL RDW (11.5-15.5) % Plt Count (150-450) k/uL PT (9.0-12.0) sec Potassium 3.0 L* 3.1 L 3.1 L (3.5-5.1) mmol/L Chloride 85 L (98-107) mmol/L Carbon Dioxide 46 H* (22-30) mmol/L BUN 56 H (9-20) mg/dL Creatinine 1.70 H (0.66-1.25) mg/dL Glucose 137 H (74-99) mg/dL Magnesium (1.6-2.3) mg/dL Total Bilirubin 1.9 H (0.2-1.3) mg/dL 08/14/16 08/14/16 08/14/16 Range/Units 06:14 06:14 06:14 RBC 4.24 L (4.30-5.90) m/uL Hgb 12.5 L (13.0-17.5) gm/dL MCHC 30.8 L (31.0-37.0) g/dL RDW 16.0 H (11.5-15.5) % Plt Count 137 L (150-450) k/uL PT 19.1 H (9.0-12.0) sec Potassium (3.5-5.1) mmol/L Chloride (98-107) mmol/L Carbon Dioxide (22-30) mmol/L BUN (9-20) mg/dL Creatinine (0.66-1.25) mg/dL Glucose (74-99) mg/dL Magnesium 1.3 L (1.6-2.3) mg/dL Total Bilirubin (0.2-1.3) mg/dL Microbiology - Last 24 Hours (Table) 08/11/16 21:40 Gram Stain - Preliminary Leg - Left Wound Culture - Preliminary Gram Neg Bacilli Assessment and Plan (1) Systolic CHF, acute on chronic Status: Acute (2) Chronic a-fib Status: Acute (3) NICM (nonischemic cardiomyopathy) Status: Acute (4) Cellulitis Status: Acute (5) Bilateral lower leg cellulitis Status: Acute (6) Hypokalemia Status: Acute (7) Hypomagnesemia Status: Acute Plan: From cardiology's perspective, we will recommend to continue IV Lasixan Zaroxolyn. Continue Coumadin to maintain an INR in the range of 2-2.2. INR 2.0 today DNP note has been reviewed, I agree with a documented findings and plan of care. Patient was seen and examined.
[2016-08-14] MEDS: POTASSIUM CHLORIDE 20 MEQ, LIDOCAINE 2% INJ 20 MG in SODIUM CHLORIDE 0.9% 100 ML IVPB SCH ×5 (12:35→21:15)
[2016-08-14] MEDS: WARFARIN 7.5 MG TAB PO SCH (17:35)
--- NOTE | 2016-08-14 19:31 | CT ---
EXAMINATION TYPE: CT sinus wo con DATE OF EXAM: 08/14/2016 6:37 PM COMPARISON: NONE HISTORY: Sinusitis, preseptal cellulitis. CT DLP: 563.00 mGycm Automated exposure control for dose reduction was used. FINDINGS: Helical acquisition through the paranasal sinuses, coronal reconstructions Increased attenuation within the subcutaneous fat over the frontal scalp, eyelids compatible with pre septal cellulitis. The orbits are within normal limits. Minimal mucosal changes within the maxillary sinus on the right, ostiomeatal units are patent. No air-fluid levels to suggest acute sinusitis. Den jazmyn decay is noted. There is artifact due to dental work, postop change involving the mandible. Cereb ral vascular calcifications are noted incidentally. Possible calcifications along the meninges over t he right frontal region. IMPRESSION: FINDINGS COMPATIBLE WITH PATIENT'S HISTORY. Additional findings above.
--- NOTE | 2016-08-14 21:46 | P.PN ---
Subjective Principal diagnosis: Weakness 66-year-old male with a history of prior hospitalizations regarding his lower extremity edema and cellulitis presents now with significant lower extremity edema. The evidence of worsening volume overload as well as atrial fibrillation with accelerated ventricular response. He has a long-standing history of cardiomyopathy with chronic systolic congestive heart failure. The patient now presents feeling significantly poorly with shortness of breath poor exercise tolerance increasing lower extremity edema and some pain to the left leg. He did have an injury to the left leg has been having some drainage. However became a bit more uncomfortable and painful during this current bout of worsening heart failure. Because he presented hospital and was admitted. Infectious disease consultation regarding the cellulitic changes to the left leg. Patient relates is feeling somewhat better since coming to hospital with diuresis. Still has edema but feels better. wound culture now shows evidence of pseudomonas aeruginosa Objective - Vital Signs Vital signs: Vital Signs Temp 96.8 F L 08/14/16 16:00 Pulse 69 08/14/16 16:00 Resp 16 08/14/16 16:00 BP 133/91 08/14/16 16:00 Pulse Ox 96 08/14/16 16:00 Intake & Output 08/14/16 08/14/16 08/15/16 06:59 18:59 06:59 Intake Total 1150 942 Output Total 2450 Balance -1300 942 Weight 159 kg Intake: IV 430 200 0.9 80 Potassium Chloride 10 meq 100 200 Lidocaine 2% Inj 10 mg In Sodium Chloride 0.9% 100 ml @ 100 mls/hr IV Q1HR JULIEN Rx#:[id number] Vancomycin 1,750 mg In 250 Sodium Chloride 0.9% 250 ml @ 125 mls/hr IVPB Q24H JULIEN Rx#:[id number] Oral 720 742 Output: Urine 2450 Other: Voiding Method Toilet Toilet Bedside Commode Bedside Commode # Voids 1 - Exam Gen: This is a morbidly obese 65-year-old male. He is sitting up in ICU bed and appears to be in no acute distress. HEENT: Head is atraumatic, normocephalic. Pupils equal, round. Sclerae is anicteric. Conjunctiva pink. Mucous members of the mouth are dry. No thrush noted. NECK: Short and thick. Supple. No JVD. No lymphadenopathy. No thyromegaly. LUNGS: Diminished bilaterally No intercostal retractions. HEART: Irregularly irregular. No murmur. ABDOMEN: Morbidly obese with mild anasarca in the abdominal fold. Soft. Bowel sounds are present. No masses. No tenderness. EXTREMITIES: +2 pedal edema bilaterally with improvement of the swelling erythema and redness and drainage. There is the open injury site on the pretibial area that measures 2 x 1.2 x 0.1 cm it has just some scant serous drainage. Onychomycosis bilaterally. NEUROLOGICAL: Patient is awake, alert and oriented x3. - Labs CBC & Chem 7: 08/14/16 06:14 08/14/16 06:14 Labs: Abnormal Lab Results - Last 24 Hours (Table) 08/14/16 08/14/16 08/14/16 Range/Units 06:14 06:14 06:14 RBC 4.24 L (4.30-5.90) m/uL Hgb 12.5 L (13.0-17.5) gm/dL MCHC 30.8 L (31.0-37.0) g/dL RDW 16.0 H (11.5-15.5) % Plt Count 137 L (150-450) k/uL PT 19.1 H (9.0-12.0) sec Potassium 3.1 L (3.5-5.1) mmol/L Chloride 85 L (98-107) mmol/L Carbon Dioxide 46 H* (22-30) mmol/L BUN 56 H (9-20) mg/dL Creatinine 1.70 H (0.66-1.25) mg/dL Glucose 137 H (74-99) mg/dL Magnesium (1.6-2.3) mg/dL Total Bilirubin 1.9 H (0.2-1.3) mg/dL 08/14/16 Range/Units 06:14 RBC (4.30-5.90) m/uL Hgb (13.0-17.5) gm/dL MCHC (31.0-37.0) g/dL RDW (11.5-15.5) % Plt Count (150-450) k/uL PT (9.0-12.0) sec Potassium (3.5-5.1) mmol/L Chloride (98-107) mmol/L Carbon Dioxide (22-30) mmol/L BUN (9-20) mg/dL Creatinine (0.66-1.25) mg/dL Glucose (74-99) mg/dL Magnesium 1.3 L (1.6-2.3) mg/dL Total Bilirubin (0.2-1.3) mg/dL Microbiology - Last 24 Hours (Table) 08/11/16 21:40 Gram Stain - Final Leg - Left Wound Culture - Final Pseudomonas aeruginosa Laboratory Results WBC 5.2 k/uL (3.8-10.6) 08/14/16 06:14 RBC 4.24 m/uL (4.30-5.90) L 08/14/16 06:14 Hgb 12.5 gm/dL (13.0-17.5) L 08/14/16 06:14 Hct 40.7 % (39.0-53.0) 08/14/16 06:14 MCV 96.1 fL (80.0-100.0) 08/14/16 06:14 MCH 29.6 pg (25.0-35.0) 08/14/16 06:14 MCHC 30.8 g/dL (31.0-37.0) L 08/14/16 06:14 RDW 16.0 % (11.5-15.5) H 08/14/16 06:14 Plt Count 137 k/uL (150-450) L 08/14/16 06:14 Neutrophils % 81 % 08/09/16 20:55 Lymphocytes % 10 % 08/09/16 20:55 Monocytes % 5 % 08/09/16 20:55 Eosinophils % 3 % 08/09/16 20:55 Basophils % 0 % 08/09/16 20:55 Neutrophils # 4.0 k/uL (1.3-7.7) 08/09/16 20:55 Lymphocytes # 0.5 k/uL (1.0-4.8) L 08/09/16 20:55 Monocytes # 0.2 k/uL (0-1.0) 08/09/16 20:55 Eosinophils # 0.2 k/uL (0-0.7) 08/09/16 20:55 Basophils # 0.0 k/uL (0-0.2) 08/09/16 20:55 Hypochromasia Marked 08/14/16 06:14 Anisocytosis Slight 08/14/16 06:14 Macrocytosis Slight 08/12/16 03:32 PT 19.1 sec (9.0-12.0) H 08/14/16 06:14 INR 2.0 (<1.1) 08/14/16 06:14 APTT 33.7 sec (22.0-30.0) H 08/09/16 20:55 VBG pH 7.37 (7.31-7.41) 08/09/16 20:55 VBG pCO2 72 mmHg (37-51) H* 08/09/16 20:55 VBG HCO3 40 mmol/L (24-28) H 08/09/16 20:55 Sodium 141 mmol/L (137-145) 08/14/16 06:14 Potassium 3.1 mmol/L (3.5-5.1) L 08/14/16 06:14 Chloride 85 mmol/L (98-107) L 08/14/16 06:14 Carbon Dioxide 46 mmol/L (22-30) H* 08/14/16 06:14 Anion Gap 10 mmol/L 08/14/16 06:14 BUN 56 mg/dL (9-20) H 08/14/16 06:14 Creatinine 1.70 mg/dL (0.66-1.25) H 08/14/16 06:14 Est GFR (MDRD) Af Amer 49 (>60 ml/min/1.73 sqM) 08/14/16 06:14 Est GFR (MDRD) Non-Af 41 (>60 ml/min/1.73 sqM) 08/14/16 06:14 Glucose 137 mg/dL (74-99) H 08/14/16 06:14 Plasma Lactic Acid [place] 1.6 mmol/L (0.7-2.0) 08/09/16 20:55 Calcium 8.5 mg/dL (8.4-10.2) 08/14/16 06:14 Magnesium 1.3 mg/dL (1.6-2.3) L 08/14/16 06:14 Total Bilirubin 1.9 mg/dL (0.2-1.3) H 08/14/16 06:14 AST 36 U/L (17-59) 08/14/16 06:14 ALT 30 U/L (21-72) 08/14/16 06:14 Alkaline Phosphatase 93 U/L (38-126) 08/14/16 06:14 CK-MB (CK-2) 1.1 ng/mL (0.0-2.4) 08/09/16 20:55 Troponin I 0.041 ng/mL (0.000-0.034) H* 08/09/16 20:55 NT-Pro-B Natriuret Pep 3900 pg/mL 08/09/16 20:55 Total Protein 6.9 g/dL (6.3-8.2) 08/14/16 06:14 Albumin 3.5 g/dL (3.5-5.0) 08/14/16 06:14 Vancomycin Trough 16.9 ug/mL 08/12/16 11:04 Microbiology 08/11/16 21:40 Leg - Left Gram Stain - Final 08/11/16 21:40 Leg - Left Wound Culture - Final Pseudomonas aeruginosa 08/09/16 20:55 Blood Blood Culture - Preliminary No Growth after 96 hours Assessment and Plan (1) CHF (congestive heart failure) Status: Acute (2) Atrial fibrillation with RVR Status: Acute (3) Left leg cellulitis Narrative/Plan: 66-year-old male that has a history of cardiomyopathy, chronic atrial fibrillation and congestive heart failure presents to Hospital with worsening lower extremity edema. In injury to the left leg and resultant small ulceration to that area. There is with the increased edema some drainage occurring to the lower extremity. At this time is to be treated with Silvadene wrap and an Kahlil wrap from the foot to the knee. Elevate while he is at rest. For antibiotic therapy with his history of MRSA receiving vancomycin therapy, Cultures now available. Should have evidence of MRSA but has evidence of pseudomonas aeruginosa. Susceptible to ciprofloxacin. Consequently vancomycin is discontinued. Ciprofloxacin is begun. We'll complete a week of this the time of his discharge. Blood cultures are negative so far. There is no significant leukocytosis. His hypokalemia is being treated. He is being anticoagulated. He has chronic anemia. At the time of discharge, he may have the leg ulceration followed at the wound healing Center. The arterial Dopplers show evidence of adequate ankle-brachial index. If his heart failure is well controlled he could be a candidate for multilayer compression dressings. Status: Acute
--- NOTE | 2016-08-14 22:20 | PN ---
I am covering for Dr. Modi. This 66-year-old gentleman who was admitted with atrial ventricular rate, other medical problems include CHF, also bilateral lower extremities cellulitis also, pseudomonas grown from the cultures, Dr. Bower is following the patient closely. The patient has been started on vancomycin. No chest pain. No palpitation. Past medical history reviewed. REVIEW OF SYSTEMS: CARDIOVASCULAR: No angina or palpitations. RESPIRATORY: As mentioned earlier. GASTROINTESTINAL: As mentioned earlier. GENITOURINARY: No dysuria. CENTRAL NERVOUS SYSTEM: No numbness. DERMATOLOGY: As mentioned earlier. Current medications are: 1. [place] 5 mg daily p.r.n. 2. Ventolin q.6h p.r.n. 3. Zyloprim 300 mg daily. 4. Coreg 2.5 mg p.o. b.i.d. 5. Lanoxin 125 mcg. 6. Lasix 40 mg p.o. b.i.d. 7. Apresoline 25 mg p.o. b.i.d. 8. Imdur 30 mg p.o. daily. 9. Zaroxolyn 5 mg p.o. daily. 10. Narcan 0.2 q.2 p.r.n. 11. Naprosyn 500 mg p.o. b.i.d. 12. K-Dur 20 meq p.o. b.i.d. 14. Flomax 0.8 daily. 15. Vancomycin 1.75 mg q.24 hours. 16. Coumadin 7.5 mg p.o. daily. PHYSICAL EXAMINATION: The patient is alert and oriented times three. Pulse 74, blood pressure 111/70. Respiratory rate 16. Temperature 97.8, pulse ox 94% on 2L. HEENT: Conjunctivae normal. Oral mucosa moist. NECK: No jugular venous distention. No carotid bruit. No lymph node enlargement. CARDIOVASCULAR: S1, S2 irregular. RESPIRATORY: Breath sounds diminished at the bases. A few scattered rhonchi and crackles. ABDOMEN: Soft, nontender. No mass palpable. EXTREMITIES: Legs bilateral cellulitis. CENTRAL NERVOUS SYSTEM: Higher functions as mentioned earlier. Moves all four limbs. No focal deficits. LYMPHATICS: No lymph nodes palpable in the neck, axillae or groin. SKIN: No ulcer, rash or bleeding. Labs WBC 5.2, hemoglobin is 12.5. INR is 12, sodium 141, Potassium 3.1. Creatinine is 1.70. ASSESSMENT: 1. Atrial fibrillation with rapid ventricular rate. 2. Bilateral lower leg cellulitis with pseudomonas aeruginosa. 3. History of congestive heart failure with acute on chronic systolic dysfunction, ejection fraction 30 to 35%. 4. Severely dilated LA. 5. Obesity with body mass index of 50.3. 6. History of chronic obstructive pulmonary disease. 7. Hypertension. 8. Hyperlipidemia. 9. History of pneumonia. 10. History of sleep apnea. 11. History of CPAP. 12. History of gout. 13. History of cardiac catheterization. 14. Remote history of nicotine dependence. 15. Hypokalemia. 16. FULL CODE. RECOMMENDATIONS AND DISCUSSION: In this 66-year-old gentleman who presented with multiple complex medical issues, we will monitor the patient closely. Continue the current medications, symptomatic treatment. Lasix switched to p.o. along with Zaroxolyn. Otherwise, monitor fluid and electrolytes balance closely. Continue with empiric antibiotics. Further antibiotic recommendations per Dr. Bower, we will monitor the labs. The patient also had hypokalemia. I would recommend replace potassium, extra dose of potassium may be given. Guarded prognosis. Further recommendations to follow. Discussed with staff. Further recommendations to follow. MTDD
[2016-08-15] MEDS: VANCOMYCIN 1,750 MG in SODIUM CHLORIDE 0.9% 250 ML IVPB SCH (00:10)
[2016-08-15 06:17] LABS: INR 2.1 (<1.1); Prothrombin Time 19.7 sec (9.0-12.0)
[2016-08-15 06:20] LABS: Anisocytosis Slight; Basophils % (A) 1 %; CH 29.7; CHCM 30.8; Eosinophils # (A) 0.3 k/uL (0-0.7); Eosinophils % (A) 5 %; HDW 2.87; HGB 12.4 gm/dL (13.0-17.5); Hypochromasia Moderate; Luc # (Auto) 0.08; Luc % (Auto) 2; Lymphocytes # (A) 0.7 k/uL (1.0-4.8); Lymphocytes % (A) 13 %; MCH 29.9 pg (25.0-35.0); MCHC 30.9 g/dL (31.0-37.0); MCV 96.7 fL (80.0-100.0); Mean Platelet Volume 8.4; Monocytes # (A) 0.3 k/uL (0-1.0); Monocytes % (A) 6 %; Neutrophils # (A) 3.6 k/uL (1.3-7.7); Neutrophils % (A) 73 %; RBC 4.14 m/uL (4.30-5.90); RDW 16.2 % (11.5-15.5); WBC 4.9 k/uL (3.8-10.6); WBC (Perox) 4.39
[2016-08-15 06:22] LABS: Calcium 8.5 mg/dL (8.4-10.2); Magnesium 1.5 mg/dL (1.6-2.3); Potassium 3.2 mmol/L (3.5-5.1)
[2016-08-15] MEDS ORDERED: Magnesium Replacement Protocol 1 EACH MISC MISCELLANE PRN (07:08)
[2016-08-15] MEDS: NAPROXEN 250 MG TAB PO SCH ×2 (07:13→08:02)
[2016-08-15] MEDS: POTASSIUM CHLORIDE ER 20 MEQ TAB.ER PO SCH ×6 (07:13→22:21)
[2016-08-15] MEDS: CARVEDILOL 12.5 MG TAB PO SCH ×2 (07:13→17:25)
[2016-08-15] MEDS: hydrALAZINE HCL 25 MG TAB PO SCH ×2 (07:13→17:26)
[2016-08-15] MEDS: MAGNESIUM SULFATE-D5W PMX 1 GM in DEXTROSE/WATER 1 100ML.BAG IVPB SCH ×2 (08:02→11:07)
[2016-08-15] MEDS: DIGOXIN 125 MCG TAB PO SCH (08:02)
[2016-08-15] MEDS: TAMSULOSIN 0.4 MG CAP.ER.24H PO SCH (08:02)
[2016-08-15] MEDS: ALLOPURINOL 300 MG TAB PO SCH (08:02)
[2016-08-15] MEDS: ISOSORBIDE MONONITRATE ER 30 MG TAB.ER.24H PO SCH (08:02)
[2016-08-15] MEDS: METOLAZONE 5 MG TAB PO SCH (08:02)
[2016-08-15] MEDS: FUROSEMIDE 40 MG TAB PO SCH ×2 (12:31→16:01)
--- NOTE | 2016-08-15 15:23 | PN ---
This is a gentleman admitted with a history of congestive heart failure exacerbation. He is being aggressively diuresed. This morning, he looks better clinically, his weight is down. His edema of lower extremities has improved. His vital signs are stable. S1 and S2 heard normally. Lungs reveal diminished air entry in bilateral lung carmen, but there are no rales. Abdomen and lower extremity exam is otherwise unchanged. I am recommending that we continue his current medical regimen. I will decrease the metolazone to 2.5 mg daily and continue his potassium supplements aggressively and cut down his IV Lasix to oral to 40 mg b.i.d. and see how he does. His CO2 contact is high but it is gradually coming down and that is one of the reasons for cutting back on his diuresis because he may have some contraction alkalosis-type picture. His PT, INR is acceptable at 2.1. He does have history of chronic atrial fibrillation with rate control. Prognosis remains guarded. Discussed with the patient.
[2016-08-15] MEDS: CIPROFLOXACIN HCL 500 MG TAB PO SCH ×2 (16:00→22:21)
[2016-08-15] MEDS ORDERED: VANCOMYCIN 1,750 MG in SODIUM CHLORIDE 0.9% 250 ML IVPB SCH ×2 (16:00→20:00)
[2016-08-15] MEDS: WARFARIN 7.5 MG TAB PO SCH (17:26)
[2016-08-15 21:16] LABS: Magnesium 1.8 mg/dL (1.6-2.3); Potassium 3.3 mmol/L (3.5-5.1)
[2016-08-16 06:48] LABS: Basophils % (A) 0 %; CH 29.1; CHCM 30.2; Eosinophils # (A) 0.2 k/uL (0-0.7); Eosinophils % (A) 5 %; HCT 41.7 % (39.0-53.0); HDW 2.95; HGB 12.5 gm/dL (13.0-17.5); Hypochromasia Marked; Luc % (Auto) 2; Lymphocytes # (A) 0.7 k/uL (1.0-4.8); Lymphocytes % (A) 14 %; MCH 28.9 pg (25.0-35.0); MCV 96.5 fL (80.0-100.0); Mean Platelet Volume 7.2; Monocytes # (A) 0.3 k/uL (0-1.0); Monocytes % (A) 5 %; Neutrophils # (A) 3.6 k/uL (1.3-7.7); Neutrophils % (A) 74 %; RBC 4.32 m/uL (4.30-5.90); RDW 15.8 % (11.5-15.5); WBC 4.8 k/uL (3.8-10.6); WBC (Perox) 4.76
[2016-08-16] MEDS: hydrALAZINE HCL 25 MG TAB PO SCH ×2 (06:48→16:18)
[2016-08-16] MEDS: NAPROXEN 250 MG TAB PO SCH ×2 (06:48→16:17)
[2016-08-16] MEDS: CARVEDILOL 12.5 MG TAB PO SCH ×2 (06:48→16:18)
[2016-08-16 06:52] LABS: INR 2.2 (<1.1); Prothrombin Time 21.6 sec (9.0-12.0)
[2016-08-16 07:02] LABS: Calcium 8.4 mg/dL (8.4-10.2); Magnesium 1.7 mg/dL (1.6-2.3); Potassium 3.4 mmol/L (3.5-5.1)
--- NOTE | 2016-08-16 07:50 | P.PN ---
Subjective Principal diagnosis: Shortness of breath with history of chronic atrial fibrillation. This is a 66-year-old white male essentially admitted for acute exacerbation of congestive heart failure. The patient has an underlying history of atrial fibrillation and came in with rapid ventricular response. His rate is not controlled. The patient has multiple consultants: Cardiology and infectious disease related to history of cellulitis. Seem is improving. Clinically he is actually doing better on 2 L. Electrode is due show elevated CO2 with hypokalemia. Metolazone has been decreased by cardiology. We will check CMP in a.m. Objective - Vital Signs Vital signs: Vital Signs Temp 97.7 F 08/16/16 04:00 Pulse 79 08/16/16 04:00 Resp 18 08/16/16 04:00 BP 119/68 08/16/16 04:00 Pulse Ox 98 08/16/16 04:00 Intake & Output 08/15/16 08/16/16 08/16/16 18:59 06:59 18:59 Intake Total 298 Output Total 3500 Balance 298 -3500 Weight 148.6 kg 148.5 kg Intake: Oral 298 Output: Urine 3500 Other: Voiding Method Toilet Toilet Bedside Commode Bedside Commode - Constitutional General appearance: Present: obese - EENT Eyes: Absent: abnormal pupil - Cardiovascular Rhythm: irregularly irregular - Gastrointestinal General gastrointestinal: Present: soft. Absent: tenderness - Neurologic Neurologic: Present: CNII-XII intact - Psychiatric Psychiatric: Present: A&O x's 3 - Labs CBC & Chem 7: 08/16/16 06:12 08/16/16 06:12 Labs: Abnormal Lab Results - Last 24 Hours (Table) 08/15/16 08/16/16 08/16/16 Range/Units 20:45 06:12 06:12 Hgb 12.5 L (13.0-17.5) gm/dL MCHC 30.0 L (31.0-37.0) g/dL RDW 15.8 H (11.5-15.5) % Plt Count 138 L (150-450) k/uL Lymphocytes # 0.7 L (1.0-4.8) k/uL PT 21.6 H (9.0-12.0) sec Potassium 3.3 L (3.5-5.1) mmol/L Chloride (98-107) mmol/L Carbon Dioxide (22-30) mmol/L BUN (9-20) mg/dL Creatinine (0.66-1.25) mg/dL Glucose (74-99) mg/dL 08/16/16 Range/Units 06:12 Hgb (13.0-17.5) gm/dL MCHC (31.0-37.0) g/dL RDW (11.5-15.5) % Plt Count (150-450) k/uL Lymphocytes # (1.0-4.8) k/uL PT (9.0-12.0) sec Potassium 3.4 L (3.5-5.1) mmol/L Chloride 88 L (98-107) mmol/L Carbon Dioxide 44 H* (22-30) mmol/L BUN 48 H (9-20) mg/dL Creatinine 1.50 H (0.66-1.25) mg/dL Glucose 108 H (74-99) mg/dL Assessment and Plan (1) Atrial fibrillation with RVR Status: Acute (2) CHF (congestive heart failure) Status: Acute (3) Bilateral lower leg cellulitis Status: Acute (4) Edema extremities Status: Acute Plan: Check CMP in a.m. We'll continue to follow with cardiology. Prognosis is improving over the weekend. See orders otherwise Time with Patient: Less than 30
[2016-08-16] MEDS: CIPROFLOXACIN HCL 500 MG TAB PO SCH ×2 (09:38→19:57)
[2016-08-16] MEDS: POTASSIUM CHLORIDE ER 20 MEQ TAB.ER PO SCH ×4 (09:38→23:52)
[2016-08-16] MEDS: METOLAZONE 2.5 MG TAB PO SCH (09:39)
[2016-08-16] MEDS: ALLOPURINOL 300 MG TAB PO SCH (09:39)
[2016-08-16] MEDS: DIGOXIN 125 MCG TAB PO SCH (09:39)
[2016-08-16] MEDS: ISOSORBIDE MONONITRATE ER 30 MG TAB.ER.24H PO SCH (09:39)
[2016-08-16] MEDS: FUROSEMIDE 40 MG TAB PO SCH ×2 (09:39→16:18)
[2016-08-16] MEDS: TAMSULOSIN 0.4 MG CAP.ER.24H PO SCH (09:40)
--- NOTE | 2016-08-16 10:20 | PN ---
DATE OF SERVICE: 08/15/2016 I am covering for Dr. Modi. This 66-year-old gentleman was admitted with atrial fibrillation with fast ventricular rate is being closely monitored. The patient also had bilateral leg cellulitis with pseudomonas also. The patient is on ciprofloxacin and multiple other medications. Sinus CT was also done. No chest pain or palpitation. No fever. On exam, alert and oriented times three. Pulse is 91, blood pressure 105/60, respiratory rate 16. Temperature normal. Pulse ox 93% on room air. HEENT: Conjunctivae normal. NECK: No jugular venous distention. CARDIOVASCULAR: S1, S2 muffled. RESPIRATORY: Breath sounds diminished at the bases. No rhonchi. No crackles. ABDOMEN: Soft, nontender. No mass palpable. LEGS: Bilateral leg cellulitis. CENTRAL NERVOUS SYSTEM: No focal deficits. LABS: WBC 4.5, hemoglobin is 12.4. INR is 2.1. Sodium 144, potassium 3.2, creatinine 1.50. ASSESSMENT: 1. Atrial fibrillation with fast ventricular rate, present on admission. 2. Bilateral lower leg cellulitis with pseudomonas aeruginosa. 3. History of congestive heart failure with acute on chronic systolic dysfunction, ejection fraction 30 to 35%. 4. Severely dilated LA on the 2-D echo. 5. Obesity with body mass index of 50.3. 6. History of chronic obstructive pulmonary disease. 7. Hypertension. 8. Hyperlipidemia. 9. History of pneumonia. 10. History of sleep apnea. 11. History of CPAP. 12. History of gout. 13. History of cardiac catheterization. 14. Remote history of nicotine dependence. 15. Hypokalemia. 16. Acute on chronic renal failure, possibly. 17. FULL CODE. RECOMMENDATION AND DISCUSSION: Recommend to continue current medications. Continue symptomatic treatment. Potassium supplementation. Continue with antibiotics. Dr. Modi will follow. Otherwise, continue with the rest of the medications.
--- NOTE | 2016-08-16 14:21 | P.PN ---
Subjective Principal diagnosis: Shortness of breath and palpitations. This is a 66-year-old gentleman with history of cardiomyopathy, congestive heart failure, chronic atrial fibrillation, hypertension, COPD, who initially presented to the hospital with symptoms of shortness of breath with associated palpitations. Patient has chronic leg edema as well as chronic stasis in both his legs. He recently had a injury to his left leg, causing a laceration to that leg which has been draining. He had an echocardiogram with Doppler study performed last year which revealed an ejection fraction of 35%. BNP on admission here 3900. Patient was initiated on IV Lasix, diuresed well, currently on by mouth Lasix. patient is also on Zaroxolyn. Potassium today 3.4 , INR 2.2. BUN 48 and creatinine 1.5. Magnesium level I.7. Overall the patient states she's feeling significantly better today. Bilateral legs had been wrapped with Kahlil wraps today. Improvement in edema bilaterally noted. Plans are being arranged for the patient to be discharged home tomorrow if stable. Objective - Vital Signs Vital signs: Vital Signs Temp 98.7 F 08/16/16 12:00 Pulse 75 08/16/16 12:00 Resp 18 08/16/16 12:00 BP 126/67 08/16/16 12:00 Pulse Ox 95 08/16/16 12:00 Intake & Output 08/15/16 08/16/16 08/16/16 18:59 06:59 18:59 Intake Total 298 298 Output Total 3500 Balance 298 -3500 298 Weight 148.6 kg 148.5 kg Intake: Oral 298 298 Output: Urine 3500 Other: Voiding Method Toilet Toilet Toilet Bedside Commode Bedside Commode Bedside Commode - Exam PHYSICAL EXAMINATION: HEENT: Head is atraumatic, normocephalic. Pupils equal, round. Neck is supple. There is no elevated jugular venous pressure. HEART EXAMINATION: Heart S1 and S2 irregularly irregular CHEST EXAMINATION: Lungs reveal diminished air entry to bilateral bases. ABDOMEN: Soft, obese, nontender. Bowel sounds are heard. No organomegaly noted. EXTREMITIES: 1+ peripheral pulses with1- 2+ evidence of peripheral edema and no calf tenderness noted. Evidence of chronic venous stasis and cellulitis. Bilateral Kahlil wraps are in today. NEUROLOGIC patient is awake, alert and oriented -3. . - Labs CBC & Chem 7: 08/16/16 06:12 08/16/16 06:12 Labs: Abnormal Lab Results - Last 24 Hours (Table) 08/15/16 08/16/16 08/16/16 Range/Units 20:45 06:12 06:12 Hgb 12.5 L (13.0-17.5) gm/dL MCHC 30.0 L (31.0-37.0) g/dL RDW 15.8 H (11.5-15.5) % Plt Count 138 L (150-450) k/uL Lymphocytes # 0.7 L (1.0-4.8) k/uL PT 21.6 H (9.0-12.0) sec Potassium 3.3 L (3.5-5.1) mmol/L Chloride (98-107) mmol/L Carbon Dioxide (22-30) mmol/L BUN (9-20) mg/dL Creatinine (0.66-1.25) mg/dL Glucose (74-99) mg/dL 08/16/16 Range/Units 06:12 Hgb (13.0-17.5) gm/dL MCHC (31.0-37.0) g/dL RDW (11.5-15.5) % Plt Count (150-450) k/uL Lymphocytes # (1.0-4.8) k/uL PT (9.0-12.0) sec Potassium 3.4 L (3.5-5.1) mmol/L Chloride 88 L (98-107) mmol/L Carbon Dioxide 44 H* (22-30) mmol/L BUN 48 H (9-20) mg/dL Creatinine 1.50 H (0.66-1.25) mg/dL Glucose 108 H (74-99) mg/dL Assessment and Plan (1) Systolic CHF, acute on chronic Status: Acute (2) Chronic a-fib Status: Acute (3) NICM (nonischemic cardiomyopathy) Status: Acute (4) Cellulitis Status: Acute (5) Bilateral lower leg cellulitis Status: Acute (6) Hypokalemia Status: Acute (7) Hypomagnesemia Status: Acute Plan: From cardiology's perspective, we will recommend to continue current dose of by mouth Lasix and Zaroxolyn. Continue Coumadin to maintain an INR in the range of 2-2.2. INR 2.2 today. Plan for possible discharge in 24 hours if stable. DNP note has been reviewed, I agree with a documented findings and plan of care. Patient was seen and examined.
[2016-08-16] MEDS: WARFARIN 7.5 MG TAB PO SCH (16:20)
--- NOTE | 2016-08-16 16:30 | P.PN ---
Subjective Principal diagnosis: Weakness 66-year-old male with a history of prior hospitalizations regarding his lower extremity edema and cellulitis presents now with significant lower extremity edema. The evidence of worsening volume overload as well as atrial fibrillation with accelerated ventricular response. He has a long-standing history of cardiomyopathy with chronic systolic congestive heart failure. The patient now presents feeling significantly poorly with shortness of breath poor exercise tolerance increasing lower extremity edema and some pain to the left leg. He did have an injury to the left leg has been having some drainage. However became a bit more uncomfortable and painful during this current bout of worsening heart failure. Because he presented hospital and was admitted. Infectious disease consultation regarding the cellulitic changes to the left leg. Patient relates is feeling somewhat better since coming to hospital with diuresis. Still has edema but feels better. wound culture shows evidence of pseudomonas aeruginosa Objective - Vital Signs Vital signs: Vital Signs Temp 98.7 F 08/16/16 12:00 Pulse 75 08/16/16 12:00 Resp 18 08/16/16 12:00 BP 126/67 08/16/16 12:00 Pulse Ox 95 08/16/16 12:00 Intake & Output 08/15/16 08/16/16 08/16/16 18:59 06:59 18:59 Intake Total 298 598 Output Total 3500 850 Balance 298 -3500 -252 Weight 148.6 kg 148.5 kg Intake: Oral 298 598 Output: Urine 3500 850 Other: Voiding Method Toilet Toilet Toilet Bedside Commode Bedside Commode Bedside Commode - Exam Gen: This is a morbidly obese 65-year-old male. He is sitting up in ICU bed and appears to be in no acute distress. HEENT: Head is atraumatic, normocephalic. Pupils equal, round. Sclerae is anicteric. Conjunctiva pink. Mucous members of the mouth are dry. No thrush noted. NECK: Short and thick. Supple. No JVD. No lymphadenopathy. No thyromegaly. LUNGS: Diminished bilaterally No intercostal retractions. HEART: Irregularly irregular. No murmur. ABDOMEN: Morbidly obese with mild anasarca in the abdominal fold. Soft. Bowel sounds are present. No masses. No tenderness. EXTREMITIES: +2 pedal edema bilaterally with improvement of the swelling erythema and redness and drainage. There is the open injury site on the pretibial area that measures 2 x 1.2 x 0.1 cm it has just some scant serous drainage. Onychomycosis bilaterally. Is also some drainage from the posterior aspect of the leg with a 3 x 1 x 0.1 cm area of scattered small openings. That left leg swelling erythema is now markedly improved from admission. NEUROLOGICAL: Patient is awake, alert and oriented x3. - Labs CBC & Chem 7: 08/16/16 06:12 08/16/16 06:12 Labs: Abnormal Lab Results - Last 24 Hours (Table) 08/15/16 08/16/16 08/16/16 Range/Units 20:45 06:12 06:12 Hgb 12.5 L (13.0-17.5) gm/dL MCHC 30.0 L (31.0-37.0) g/dL RDW 15.8 H (11.5-15.5) % Plt Count 138 L (150-450) k/uL Lymphocytes # 0.7 L (1.0-4.8) k/uL PT 21.6 H (9.0-12.0) sec Potassium 3.3 L (3.5-5.1) mmol/L Chloride (98-107) mmol/L Carbon Dioxide (22-30) mmol/L BUN (9-20) mg/dL Creatinine (0.66-1.25) mg/dL Glucose (74-99) mg/dL 08/16/16 Range/Units 06:12 Hgb (13.0-17.5) gm/dL MCHC (31.0-37.0) g/dL RDW (11.5-15.5) % Plt Count (150-450) k/uL Lymphocytes # (1.0-4.8) k/uL PT (9.0-12.0) sec Potassium 3.4 L (3.5-5.1) mmol/L Chloride 88 L (98-107) mmol/L Carbon Dioxide 44 H* (22-30) mmol/L BUN 48 H (9-20) mg/dL Creatinine 1.50 H (0.66-1.25) mg/dL Glucose 108 H (74-99) mg/dL Laboratory Results WBC 4.8 k/uL (3.8-10.6) 08/16/16 06:12 RBC 4.32 m/uL (4.30-5.90) 08/16/16 06:12 Hgb 12.5 gm/dL (13.0-17.5) L 08/16/16 06:12 Hct 41.7 % (39.0-53.0) 08/16/16 06:12 MCV 96.5 fL (80.0-100.0) 08/16/16 06:12 MCH 28.9 pg (25.0-35.0) 08/16/16 06:12 MCHC 30.0 g/dL (31.0-37.0) L 08/16/16 06:12 RDW 15.8 % (11.5-15.5) H 08/16/16 06:12 Plt Count 138 k/uL (150-450) L 08/16/16 06:12 Neutrophils % 74 % 08/16/16 06:12 Lymphocytes % 14 % 08/16/16 06:12 Monocytes % 5 % 08/16/16 06:12 Eosinophils % 5 % 08/16/16 06:12 Basophils % 0 % 08/16/16 06:12 Neutrophils # 3.6 k/uL (1.3-7.7) 08/16/16 06:12 Lymphocytes # 0.7 k/uL (1.0-4.8) L 08/16/16 06:12 Monocytes # 0.3 k/uL (0-1.0) 08/16/16 06:12 Eosinophils # 0.2 k/uL (0-0.7) 08/16/16 06:12 Basophils # 0.0 k/uL (0-0.2) 08/16/16 06:12 Hypochromasia Marked 08/16/16 06:12 Anisocytosis Slight 08/15/16 05:19 Macrocytosis Slight 08/12/16 03:32 PT 21.6 sec (9.0-12.0) H 08/16/16 06:12 INR 2.2 (<1.1) 08/16/16 06:12 APTT 33.7 sec (22.0-30.0) H 08/09/16 20:55 VBG pH 7.37 (7.31-7.41) 08/09/16 20:55 VBG pCO2 72 mmHg (37-51) H* 02/13/17 20:55 VBG HCO3 40 mmol/L (24-28) H 08/09/16 20:55 Sodium 142 mmol/L (137-145) 08/16/16 06:12 Potassium 3.4 mmol/L (3.5-5.1) L 08/16/16 06:12 Chloride 88 mmol/L (98-107) L 08/16/16 06:12 Carbon Dioxide 44 mmol/L (22-30) H* 08/16/16 06:12 Anion Gap 10 mmol/L 08/16/16 06:12 BUN 48 mg/dL (9-20) H 08/16/16 06:12 Creatinine 1.50 mg/dL (0.66-1.25) H 08/16/16 06:12 Est GFR (MDRD) Af Amer 57 (>60 ml/min/1.73 sqM) 08/16/16 06:12 Est GFR (MDRD) Non-Af 47 (>60 ml/min/1.73 sqM) 08/16/16 06:12 Glucose 108 mg/dL (74-99) H 08/16/16 06:12 Plasma Lactic Acid Tavares 1.6 mmol/L (0.7-2.0) 08/09/16 20:55 Calcium 8.4 mg/dL (8.4-10.2) 08/16/16 06:12 Magnesium 1.7 mg/dL (1.6-2.3) 08/16/16 06:12 Total Bilirubin 1.9 mg/dL (0.2-1.3) H 08/14/16 06:14 AST 36 U/L (17-59) 08/14/16 06:14 ALT 30 U/L (21-72) 08/14/16 06:14 Alkaline Phosphatase 93 U/L (38-126) 08/14/16 06:14 CK-MB (CK-2) 1.1 ng/mL (0.0-2.4) 08/09/16 20:55 Troponin I 0.041 ng/mL (0.000-0.034) H* 08/09/16 20:55 NT-Pro-B Natriuret Pep 3900 pg/mL 08/09/16 20:55 Total Protein 6.9 g/dL (6.3-8.2) 08/14/16 06:14 Albumin 3.5 g/dL (3.5-5.0) 08/14/16 06:14 Vancomycin Trough 16.9 ug/mL 08/12/16 11:04 Microbiology 08/09/16 20:55 Blood Blood Culture - Final No Growth after 144 hours 08/11/16 21:40 Leg - Left Gram Stain - Final 08/11/16 21:40 Leg - Left Wound Culture - Final Pseudomonas aeruginosa Assessment and Plan (1) CHF (congestive heart failure) Status: Acute (2) Atrial fibrillation with RVR Status: Acute (3) Left leg cellulitis Narrative/Plan: 66-year-old male that has a history of cardiomyopathy, chronic atrial fibrillation and congestive heart failure presents to Hospital with worsening lower extremity edema. In injury to the left leg and resultant small ulceration to that area. There is with the increased edema some drainage occurring to the lower extremity. At this time is to be treated with Silvadene wrap and an Kahlil wrap from the foot to the knee. Elevate while he is at rest. For antibiotic therapy with his history of MRSA was receiving vancomycin therapy,Cultures now available. Reveal evidence of no MRSA but has evidence of pseudomonas aeruginosa. Susceptible to ciprofloxacin. Consequently vancomycin is discontinued. Ciprofloxacin is begun. We'll complete a week of this the time of his discharge. Blood cultures are negative There is no significant leukocytosis. His hypokalemia is being treated. He is being anticoagulated. He has chronic anemia. At the time of discharge, he may have the leg ulceration followed at the wound healing Center. The arterial Dopplers show evidence of adequate ankle-brachial index. If his heart failure is well controlled he could be a candidate for multilayer compression dressings. Status: Acute
[2016-08-16] MEDS ORDERED: POTASSIUM CHLORIDE ER 20 MEQ TAB.ER PO SCH (17:00)
[2016-08-16] MEDS: MAGNESIUM SULFATE-D5W PMX 1 GM in DEXTROSE/WATER 1 100ML.BAG IVPB SCH ×2 (17:27→19:03)
[2016-08-16] MEDS ORDERED: POTASSIUM CHLORIDE ER 20 MEQ TAB.ER PO ONE (19:00)
[2016-08-16 22:53] LABS: Potassium 3.4 mmol/L (3.5-5.1)
[2016-08-16] MEDS ORDERED: Potassium Replacement Protocol 1 EACH MISC MISCELLANE PRN (23:17)
[2016-08-17] MEDS: POTASSIUM CHLORIDE ER 20 MEQ TAB.ER PO SCH ×4 (01:18→09:04)
[2016-08-17 06:42] LABS: Basophils % (A) 0 %; CH 29.1; CHCM 30.1; Eosinophils # (A) 0.3 k/uL (0-0.7); Eosinophils % (A) 6 %; HDW 2.97; HGB 12.5 gm/dL (13.0-17.5); Hypochromasia Marked; Luc # (Auto) 0.12; Luc % (Auto) 3; Lymphocytes # (A) 0.7 k/uL (1.0-4.8); Lymphocytes % (A) 14 %; MCH 28.8 pg (25.0-35.0); MCHC 29.8 g/dL (31.0-37.0); MCV 96.9 fL (80.0-100.0); Mean Platelet Volume 7.4; Monocytes # (A) 0.3 k/uL (0-1.0); Monocytes % (A) 6 %; Neutrophils # (A) 3.4 k/uL (1.3-7.7); Neutrophils % (A) 72 %; RBC 4.33 m/uL (4.30-5.90); RDW 15.9 % (11.5-15.5); WBC 4.7 k/uL (3.8-10.6); WBC (Perox) 4.74
[2016-08-17] MEDS: NAPROXEN 250 MG TAB PO SCH (06:45)
[2016-08-17] MEDS: hydrALAZINE HCL 25 MG TAB PO SCH (06:46)
[2016-08-17] MEDS: CARVEDILOL 12.5 MG TAB PO SCH (06:46)
[2016-08-17 06:47] LABS: INR 2.4 (<1.1)
[2016-08-17 06:51] LABS: Calcium 8.3 mg/dL (8.4-10.2); Magnesium 1.9 mg/dL (1.6-2.3); Potassium 3.4 mmol/L (3.5-5.1); Total Bilirubin 1.4 mg/dL (0.2-1.3); Total Protein 6.7 g/dL (6.3-8.2)
--- NOTE | 2016-08-17 08:16 | P.DS ---
Providers Date of admission: 08/09/16 22:43 Attending physician: Wiliam Modi Consults: 08/11/16 06:34 Consult Physician Routine Consulting Provider: eSan Bower Reason/Comments: cellulitis Do you want consulting provider notified?: Yes Primary care physician: Wiliam Modi - Discharge Diagnosis(es) (1) Atrial fibrillation with RVR Current Visit: Yes Status: Acute (2) CHF (congestive heart failure) Current Visit: Yes Status: Acute (3) Bilateral lower leg cellulitis Current Visit: No Status: Acute (4) Edema extremities Current Visit: No Status: Acute Hospital Course: This discharge summary 66-year-old white male essentially admitted because of significant problems related to congestive heart failure related to atrial fibrillation with rapid ventricular response. He has an underlying history of left lower stomach cellulitis which is improved after treatment. Dr. Bower with pulmonology and cardiology have been consulted. The patient is now stabilized with appropriate weight loss. Atrial fibrillations now stable. He does have an element of contraction alkalosis related to diuresis. Metolazone was decreased to 2.5 mg. We will discharge appropriately when cleared by consultants and antibiotic as elucidated by Dr. Bower for long-term use. Also refer to wound clinic. Patient Condition at Discharge: Stable Plan - Discharge Summary New Discharge Prescriptions: RX: Ciprofloxacin HCl [Cipro] 500 mg PO Q12HR #14 tablet RX: Metolazone [Zaroxolyn] 2.5 mg PO DAILY #30 tab RX: SILVER sulfADIAZINE CREAM [Silvadene Cream] 1 applic TOPICAL BID #400 gm Discharge Medication List RX: Isosorbide Mononitrate ER [Imdur] 30 mg PO DAILY 04/11/14 [History] RX: Tamsulosin HCl [Flomax] 0.8 mg PO DAILY 04/11/14 [History] RX: hydrALAZINE HCL [Apresoline] 25 mg PO AC-BID 04/11/14 [History] RX: Potassium Chloride [Potassium Chloride ER] 20 meq PO AC-BID #60 tablet.er [Rx] RX: Albuterol Nebulized [Ventolin Nebulized] 2.5 mg INHALATION RT-Q6H PRN [History] RX: Allopurinol [Zyloprim] 300 mg PO DAILY 03/03/16 [History] RX: Naproxen [Naprosyn] 500 mg PO AC-BID 03/03/16 [History] RX: Warfarin Sodium 6 mg PO DAILY 03/03/16 [History] RX: Carvedilol [Coreg*] 12.5 mg PO AC-BID tab 03/06/16 [Rx] RX: Digoxin [Lanoxin] 125 mcg PO DAILY tab 03/06/16 [Rx] RX: Furosemide [Lasix] 40 mg PO BID@0900,1600 tab 03/06/16 [Rx] RX: HYDROcodone/APAP 5-325MG [[place] 5-325] 1 tab PO DAILY PRN 08/09/16 [History] RX: Ciprofloxacin HCl [Cipro] 500 mg PO Q12HR #14 tablet 08/16/16 [Rx] RX: Metolazone [Zaroxolyn] 2.5 mg PO DAILY #30 tab 08/17/16 [Rx] RX: SILVER sulfADIAZINE CREAM [Silvadene Cream] 1 applic TOPICAL BID #400 gm [Rx] RX: Warfarin [Coumadin] 7.5 mg PO DAILY@1800 tab 08/17/16 [Rx] Follow up Appointment(s)/Referral(s): Wiliam Modi MD [Primary Care Provider] - 3 Days Discharge Disposition: HOME WITH HOME HEALTH SERVICES
[2016-08-17 08:33] VITALS: BP 124/70; PULSE 90; RESP 18; TEMP 97.1
[2016-08-17] MEDS: CIPROFLOXACIN HCL 500 MG TAB PO SCH (09:00)
[2016-08-17] MEDS: ALLOPURINOL 300 MG TAB PO SCH (09:00)
[2016-08-17] MEDS: METOLAZONE 2.5 MG TAB PO SCH (09:01)
[2016-08-17] MEDS: ISOSORBIDE MONONITRATE ER 30 MG TAB.ER.24H PO SCH (09:01)
[2016-08-17] MEDS: DIGOXIN 125 MCG TAB PO SCH (09:01)
[2016-08-17] MEDS: FUROSEMIDE 40 MG TAB PO SCH (09:01)
[2016-08-17] MEDS: TAMSULOSIN 0.4 MG CAP.ER.24H PO SCH (09:02)
--- NOTE | 2016-08-17 11:23 | CDI ---
In responding to this query, please exercise your independent professional judgment. The [facility] Coding Staff and Clinical Documentation Specialists appreciate your assistance in clarifying documentation, maintaining compliance with coding guidelines, accurately documenting patients condition and capturing severity of illness. The fact that a question is asked does not imply that any particular answer is desired or expected. Communication forms are a method of clarifying documentation and are not made part of the Legal Health Record. Thank you in advance for your clarification. Last Revision, April 2015 Jess Beaver [address] [place] [address] Documentation Clarification Form Date: 08/17/2016 11:09:00 AM From: Ju Gavin CCS, CCDS Admit Date: 08/09/2016 10:43:00 PM Patient Name: Lowell Barraza Visit Number: [id number] Discharge Date: Dr. Winter Bunch: History/Risk Factors: 66 yo male, admitted with sob & worsening bilateral lower extremity cellulitis. Per Per the progress note on 08/15, the patient is diagnosed with Acute on Chronic Renal Failure, possibly. Clinical Indicators & History: Atrial Fibrillation, CHF, COPD, Hypertension. Current BUN: 48; Cr: 1.60; GFR: 44. Blood Gluc 162. Treatment: IV Lasix, Antibiotics, Dietary modifications Cardiology consult. Cardiology, ID, PT. In order to capture the severity of condition, please clarify if the condition signifies: CKD Stage 1 (GFR > 90) CKD Stage 2 (GFR 60-89) CKD Stage 3 (GFR 30-59) CKD Stage 4 (GFR 15-29) CKD Stage 5 (GFR <15) ESRD Unable to determine Other condition, please specify Please document in your progress notes and discharge summary in order to capture severity of illness and risk of mortality. Include clinical findings that support your diagnosis. FYI: Press F11 to launch patient chart. Place X here if this finding has no clinical significance, is not applicable or if you are not able to provide any additional documentation. Thank You. CED
--- NOTE | 2016-08-17 12:58 | P.PN ---
Subjective Principal diagnosis: Shortness of breath and palpitations. This is a 66-year-old gentleman with history of cardiomyopathy, congestive heart failure, chronic atrial fibrillation, hypertension, COPD, who initially presented to the hospital with symptoms of shortness of breath with associated palpitations. Patient has chronic leg edema as well as chronic stasis in both his legs. He recently had a injury to his left leg, causing a laceration to that leg which has been draining. He had an echocardiogram with Doppler study performed last year which revealed an ejection fraction of 35%. BNP on admission here 3900. Patient was initiated on IV Lasix, diuresed well, currently on by mouth Lasix. patient is also on Zaroxolyn. Potassium today 3.4 , INR 2.2. BUN 44 and creatinine 1.5. Magnesium level I.9. Overall the patient states she's feeling significantly better today. Bilateral legs had been wrapped with Kahlil wraps. Improvement in edema bilaterally noted. Plans are being arranged for the patient to be discharged home today. A follow-up appointment will be made with Dr. Sheriff in the office post discharge. Objective - Vital Signs Vital signs: Vital Signs Temp 97.1 F L 08/17/16 07:32 Pulse 90 08/17/16 08:33 Resp 18 08/17/16 08:33 BP 124/70 08/17/16 07:32 Pulse Ox 92 L 08/17/16 07:32 Intake & Output 08/16/16 08/17/16 08/17/16 18:59 06:59 18:59 Intake Total 598 1260 240 Output Total 850 400 Balance -252 860 240 Weight 147 kg Intake: IV 80 0.9 80 Intake, IV Titration 100 Amount Magnesium Sulfate-D5w Pmx 100 1 gm In Dextrose/Water 1 100ml.bag @ 100 mls/hr IVPB Q1H [facility] Rx#: [id number] Oral 598 1080 240 Output: Urine 850 400 Other: Voiding Method Toilet Toilet Toilet Bedside Commode Bedside Commode Bedside Commode # Voids 1 - Exam PHYSICAL EXAMINATION: HEENT: Head is atraumatic, normocephalic. Pupils equal, round. Neck is supple. There is no elevated jugular venous pressure. HEART EXAMINATION: Heart S1 and S2 irregularly irregular CHEST EXAMINATION: Lungs reveal diminished air entry to bilateral bases. ABDOMEN: Soft, obese, nontender. Bowel sounds are heard. No organomegaly noted. EXTREMITIES: 1+ peripheral pulses with 1+ evidence of peripheral edema and no calf tenderness noted. Evidence of chronic venous stasis and cellulitis. Bilateral Kahlil wraps are in today. NEUROLOGIC patient is awake, alert and oriented -3. . - Labs CBC & Chem 7: 08/17/16 06:13 08/17/16 06:13 Labs: Abnormal Lab Results - Last 24 Hours (Table) 08/16/16 08/16/16 08/17/16 Range/Units 17:28 22:24 06:13 Hgb 12.5 L (13.0-17.5) gm/dL MCHC 29.8 L (31.0-37.0) g/dL RDW 15.9 H (11.5-15.5) % Plt Count 138 L (150-450) k/uL Lymphocytes # 0.7 L (1.0-4.8) k/uL PT (9.0-12.0) sec Potassium 3.2 L 3.4 L (3.5-5.1) mmol/L Chloride (98-107) mmol/L Carbon Dioxide (22-30) mmol/L BUN (9-20) mg/dL Creatinine (0.66-1.25) mg/dL Glucose (74-99) mg/dL Calcium (8.4-10.2) mg/dL Total Bilirubin (0.2-1.3) mg/dL Albumin (3.5-5.0) g/dL 08/17/16 08/17/16 Range/Units 06:13 06:13 Hgb (13.0-17.5) gm/dL MCHC (31.0-37.0) g/dL RDW (11.5-15.5) % Plt Count (150-450) k/uL Lymphocytes # (1.0-4.8) k/uL PT 23.0 H (9.0-12.0) sec Potassium 3.4 L (3.5-5.1) mmol/L Chloride 88 L (98-107) mmol/L Carbon Dioxide 47 H* (22-30) mmol/L BUN 44 H (9-20) mg/dL Creatinine 1.52 H (0.66-1.25) mg/dL Glucose 116 H (74-99) mg/dL Calcium 8.3 L (8.4-10.2) mg/dL Total Bilirubin 1.4 H (0.2-1.3) mg/dL Albumin 3.3 L (3.5-5.0) g/dL Assessment and Plan (1) Systolic CHF, acute on chronic Status: Acute (2) Chronic a-fib Status: Acute (3) NICM (nonischemic cardiomyopathy) Status: Acute (4) Cellulitis Status: Acute (5) Bilateral lower leg cellulitis Status: Acute (6) Hypokalemia Status: Acute (7) Hypomagnesemia Status: Acute Plan: From cardiology's perspective, we will recommend to continue current dose of by mouth Lasix and Zaroxolyn. Continue Coumadin to maintain an INR in the range of 2-2.2. INR 2.4 today. Patient will be discharged home today. A follow-up appointment will be made with Dr. Sheriff in the office 2 weeks. DNP note has been reviewed, I agree with a documented findings and plan of care. Patient was seen and examined.
[2016-08-17 14:49] VITALS: BMI 46.5
--- NOTE | 2016-08-17 20:15 | P.PN ---
Subjective Principal diagnosis: Weakness 66-year-old male with a history of prior hospitalizations regarding his lower extremity edema and cellulitis presents now with significant lower extremity edema. The evidence of worsening volume overload as well as atrial fibrillation with accelerated ventricular response. He has a long-standing history of cardiomyopathy with chronic systolic congestive heart failure. The patient now presents feeling significantly poorly with shortness of breath poor exercise tolerance increasing lower extremity edema and some pain to the left leg. He did have an injury to the left leg has been having some drainage. However became a bit more uncomfortable and painful during this current bout of worsening heart failure. Because he presented hospital and was admitted. Infectious disease consultation regarding the cellulitic changes to the left leg. Patient relates is feeling somewhat better since coming to hospital with diuresis. Still has edema but feels better. wound culture shows evidence of pseudomonas aeruginosa Objective - Vital Signs Vital signs: Vital Signs Temp 97.1 F L 08/17/16 07:32 Pulse 90 08/17/16 08:33 Resp 18 08/17/16 08:33 BP 124/70 08/17/16 07:32 Pulse Ox 92 L 08/17/16 07:32 Intake & Output 08/17/16 08/17/16 08/18/16 06:59 18:59 06:59 Intake Total 1260 700 Output Total 400 350 Balance 860 350 Weight 147 kg 147 kg Intake: IV 80 0.9 80 Intake, IV Titration 100 Amount Magnesium Sulfate-D5w Pmx 100 1 gm In Dextrose/Water 1 100ml.bag @ 100 mls/hr IVPB Q1H [facility] Rx#: [id number] Oral 1080 700 Output: Urine 400 350 Other: Voiding Method Toilet Toilet Bedside Commode Bedside Commode # Voids 1 1 - Exam Gen: This is a morbidly obese 65-year-old male. He is sitting up in ICU bed and appears to be in no acute distress. HEENT: Head is atraumatic, normocephalic. Pupils equal, round. Sclerae is anicteric. Conjunctiva pink. Mucous members of the mouth are dry. No thrush noted. NECK: Short and thick. Supple. No JVD. No lymphadenopathy. No thyromegaly. LUNGS: Diminished bilaterally No intercostal retractions. HEART: Irregularly irregular. No murmur. ABDOMEN: Morbidly obese with mild anasarca in the abdominal fold. Soft. Bowel sounds are present. No masses. No tenderness. EXTREMITIES: +2 pedal edema bilaterally with improvement of the swelling erythema and redness and drainage. There is the open injury site on the pretibial area that measures 2 x 1.2 x 0.1 cm it has just some scant serous drainage. Onychomycosis bilaterally. Is also some drainage from the posterior aspect of the leg with a 3 x 1 x 0.1 cm area of scattered small openings. That left leg swelling erythema is now markedly improved from admission. NEUROLOGICAL: Patient is awake, alert and oriented x3. - Labs CBC & Chem 7: 08/17/16 06:13 08/17/16 06:13 Labs: Abnormal Lab Results - Last 24 Hours (Table) 08/16/16 08/17/16 08/17/16 Range/Units 22:24 06:13 06:13 Hgb 12.5 L (13.0-17.5) gm/dL MCHC 29.8 L (31.0-37.0) g/dL RDW 15.9 H (11.5-15.5) % Plt Count 138 L (150-450) k/uL Lymphocytes # 0.7 L (1.0-4.8) k/uL PT (9.0-12.0) sec Potassium 3.4 L 3.4 L (3.5-5.1) mmol/L Chloride 88 L (98-107) mmol/L Carbon Dioxide 47 H* (22-30) mmol/L BUN 44 H (9-20) mg/dL Creatinine 1.52 H (0.66-1.25) mg/dL Glucose 116 H (74-99) mg/dL Calcium 8.3 L (8.4-10.2) mg/dL Total Bilirubin 1.4 H (0.2-1.3) mg/dL Albumin 3.3 L (3.5-5.0) g/dL 08/17/16 Range/Units 06:13 Hgb (13.0-17.5) gm/dL MCHC (31.0-37.0) g/dL RDW (11.5-15.5) % Plt Count (150-450) k/uL Lymphocytes # (1.0-4.8) k/uL PT 23.0 H (9.0-12.0) sec Potassium (3.5-5.1) mmol/L Chloride (98-107) mmol/L Carbon Dioxide (22-30) mmol/L BUN (9-20) mg/dL Creatinine (0.66-1.25) mg/dL Glucose (74-99) mg/dL Calcium (8.4-10.2) mg/dL Total Bilirubin (0.2-1.3) mg/dL Albumin (3.5-5.0) g/dL Laboratory Results WBC 4.7 k/uL (3.8-10.6) 08/17/16 06:13 RBC 4.33 m/uL (4.30-5.90) 08/17/16 06:13 Hgb 12.5 gm/dL (13.0-17.5) L 08/17/16 06:13 Hct 42.0 % (39.0-53.0) 08/17/16 06:13 MCV 96.9 fL (80.0-100.0) 08/17/16 06:13 MCH 28.8 pg (25.0-35.0) 08/17/16 06:13 MCHC 29.8 g/dL (31.0-37.0) L 08/17/16 06:13 RDW 15.9 % (11.5-15.5) H 08/17/16 06:13 Plt Count 138 k/uL (150-450) L 08/17/16 06:13 Neutrophils % 72 % 08/17/16 06:13 Lymphocytes % 14 % 08/17/16 06:13 Monocytes % 6 % 08/17/16 06:13 Eosinophils % 6 % 08/17/16 06:13 Basophils % 0 % 08/17/16 06:13 Neutrophils # 3.4 k/uL (1.3-7.7) 08/17/16 06:13 Lymphocytes # 0.7 k/uL (1.0-4.8) L 08/17/16 06:13 Monocytes # 0.3 k/uL (0-1.0) 08/17/16 06:13 Eosinophils # 0.3 k/uL (0-0.7) 08/17/16 06:13 Basophils # 0.0 k/uL (0-0.2) 08/17/16 06:13 Hypochromasia Marked 08/17/16 06:13 Anisocytosis Slight 08/15/16 05:19 Macrocytosis Slight 08/12/16 03:32 PT 23.0 sec (9.0-12.0) H 08/17/16 06:13 INR 2.4 (<1.1) 08/17/16 06:13 APTT 33.7 sec (22.0-30.0) H 08/09/16 20:55 VBG pH 7.37 (7.31-7.41) 08/09/16 20:55 VBG pCO2 72 mmHg (37-51) H* 08/09/16 20:55 VBG HCO3 40 mmol/L (24-28) H 08/09/16 20:55 Sodium 143 mmol/L (137-145) 08/17/16 06:13 Potassium 3.4 mmol/L (3.5-5.1) L 08/17/16 06:13 Chloride 88 mmol/L (98-107) L 08/17/16 06:13 Carbon Dioxide 47 mmol/L (22-30) H* 08/17/16 06:13 Anion Gap 8 mmol/L 08/17/16 06:13 BUN 44 mg/dL (9-20) H 08/17/16 06:13 Creatinine 1.52 mg/dL (0.66-1.25) H 08/17/16 06:13 Est GFR (MDRD) Af Amer 56 (>60 ml/min/1.73 sqM) 08/17/16 06:13 Est GFR (MDRD) Non-Af 46 (>60 ml/min/1.73 sqM) 08/17/16 06:13 Glucose 116 mg/dL (74-99) H 08/17/16 06:13 Plasma Lactic Acid Tavares 1.6 mmol/L (0.7-2.0) 08/09/16 20:55 Calcium 8.3 mg/dL (8.4-10.2) L 08/17/16 06:13 Magnesium 1.9 mg/dL (1.6-2.3) 08/17/16 06:13 Total Bilirubin 1.4 mg/dL (0.2-1.3) H 08/17/16 06:13 AST 35 U/L (17-59) 08/17/16 06:13 ALT 39 U/L (21-72) 08/17/16 06:13 Alkaline Phosphatase 89 U/L (38-126) 08/17/16 06:13 CK-MB (CK-2) 1.1 ng/mL (0.0-2.4) 08/09/16 20:55 Troponin I 0.041 ng/mL (0.000-0.034) H* 08/09/16 20:55 NT-Pro-B Natriuret Pep 3900 pg/mL 08/09/16 20:55 Total Protein 6.7 g/dL (6.3-8.2) 08/17/16 06:13 Albumin 3.3 g/dL (3.5-5.0) L 08/17/16 06:13 Vancomycin Trough 16.9 ug/mL 08/12/16 11:04 Microbiology 08/09/16 20:55 Blood Blood Culture - Final No Growth after 144 hours 08/11/16 21:40 Leg - Left Gram Stain - Final 08/11/16 21:40 Leg - Left Wound Culture - Final Pseudomonas aeruginosa Assessment and Plan (1) CHF (congestive heart failure) Status: Acute (2) Atrial fibrillation with RVR Status: Acute (3) Left leg cellulitis Narrative/Plan: 66-year-old male that has a history of cardiomyopathy, chronic atrial fibrillation and congestive heart failure presents to Hospital with worsening lower extremity edema. In injury to the left leg and resultant small ulceration to that area. There is with the increased edema some drainage occurring to the lower extremity. At this time is to be treated with Silvadene wrap and an Kahlil wrap from the foot to the knee. Elevate while he is at rest. For antibiotic therapy with his history of MRSA was receiving vancomycin therapy,Cultures now available. Reveal evidence of no MRSA but has evidence of pseudomonas aeruginosa. Susceptible to ciprofloxacin. Consequently vancomycin is discontinued. Ciprofloxacin is begun. We'll complete a week of this the time of his discharge.Sent to pharmacy. Blood cultures are negative There is no significant leukocytosis. His hypokalemia is being treated. He is being anticoagulated. He has chronic anemia. At the time of discharge, he may have the leg ulceration followed at the wound healing Center. The arterial Dopplers show evidence of adequate ankle-brachial index. When his heart failure is well controlled he could be a candidate for multilayer compression dressings. Status: Acute
--- NOTE | 2016-08-24 15:49 | CDI ---
In responding to this query, please exercise your independent professional judgment. The [facility] Coding Staff and Clinical Documentation Specialists appreciate your assistance in clarifying documentation, maintaining compliance with coding guidelines, accurately documenting patients condition and capturing severity of illness. The fact that a question is asked does not imply that any particular answer is desired or expected. Communication forms are a method of clarifying documentation and are not made part of the Legal Health Record. Thank you in advance for your clarification. Last Revision, April 2015 Jess Beaver [address] [facility] [place] [address] Documentation Clarification Form Date: 08/17/2016 11:09:00 AM From: Ju Gavin Admit Date: 08/09/2016 10:43:00 PM Patient Name: Lowell Barraza Visit Number: [id number] Discharge Date: 08/17/2016 Dr. Winter Bunch History/Risk Factors: 66 yo male, admitted with sob & worsening bilateral lower extremity cellulitis. Per Per the progress note on 08/15, the patient is diagnosed with Acute on Chronic Renal Failure. Clinical Indicators & History: Atrial Fibrillation, CHF, COPD, Hypertension. Current BUN: 48; Cr: 1.60; GFR: 44. Blood Gluc 162. Treatment: IV Lasix, Antibiotics, Dietary modifications Cardiology consult. Cardiology, ID, PT. In order to capture the severity of condition, please clarify if the condition signifies: CKD Stage 1 (GFR > 90) CKD Stage 2 (GFR 60-89) CKD Stage 3 (GFR 30-59) CKD Stage 4 (GFR 15-29) CKD Stage 5 (GFR <15) ESRD Unable to determine Other condition, please specify Please document in your progress notes and discharge summary in order to capture severity of illness and risk of mortality. Include clinical findings that support your diagnosis. FYI: Press F11 to launch patient chart. Place X here if this finding has no clinical significance, is not applicable or if you are not able to provide any additional documentation. Thank You. CED
--- NOTE | 2016-08-25 11:21 | P.ARTDOP ---
Arterial Doppler LOWER EXTREMITY ARTERIAL DOPPLER: DATE OF SERVICE: 08/12/2016 Reason for study: Cellulitis. Doppler waveforms: Multiphasic bilaterally throughout. Pulse volume recording: Normal configuration. Pressure gradients: None. Ankle-brachial indices: Greater than 1 bilaterally. Toe pressures: 141 on the right, 141 on the left Impression: Normal study.
--- NOTE | 2016-09-03 07:40 | PN ---
ADDENDUM: PLEASE ADD: Chronic renal failure and chronic kidney disease, stage III.
== END 2016-08-17 15:04 | disposition home health service (06) | DRG 291 ==
LOC: EC 20:27 → 6SEL 22:43
PROVIDERS: ADMIT Family Medicine; ATTEND Family Medicine
DX: I13.0 Hypertensive heart and chronic kidney disease with heart failure and stage 1 through stage 4 chronic kidney disease, or unspecified chronic kidney disease (principal); I50.23 Acute on chronic systolic (congestive) heart failure; J96.22 Acute and chronic respiratory failure with hypercapnia; E87.3 Alkalosis; N17.9 Acute kidney failure, unspecified; L03.115 Cellulitis of right lower limb; Z68.43 Body mass index [BMI] 50.0-59.9, adult; L03.116 Cellulitis of left lower limb; E83.42 Hypomagnesemia; I42.9 Cardiomyopathy, unspecified; N18.3 Chronic kidney disease, stage 3 (moderate); I48.2 Chronic atrial fibrillation; B35.1 Tinea unguium; E66.01 Morbid (severe) obesity due to excess calories; E78.5 Hyperlipidemia, unspecified; E87.6 Hypokalemia; M10.9 Gout, unspecified; J44.9 Chronic obstructive pulmonary disease, unspecified; G47.30 Sleep apnea, unspecified; D64.9 Anemia, unspecified; I83.90 Asymptomatic varicose veins of unspecified lower extremity; M19.90 Unspecified osteoarthritis, unspecified site; N42.9 Disorder of prostate, unspecified; R25.1 Tremor, unspecified; Z87.891 Personal history of nicotine dependence; Z71.3 Dietary counseling and surveillance; Z87.01 Personal history of pneumonia (recurrent); Z86.14 Personal history of Methicillin resistant Staphylococcus aureus infection; Z79.01 Long term (current) use of anticoagulants; Z79.1 Long term (current) use of non-steroidal anti-inflammatories (NSAID); Z79.899 Other long term (current) drug therapy
CPT/HCPCS: 36415; 70486; 71020; 80048; 80053; 80202; 82553; 82803; 83605; 83735; 83880; 84132; 84484; 85025; 85027; 85610; 85730; 87040; 87070; 87077; 87186; 87205; 93005; 93923; 94640; 94760; 96361; 96365; 96366; 96367; 99285

== ENCOUNTER → 2017-06-01 | Outpatient (CLI) | payer MEDICARE, BC ==
--- NOTE | 2017-06-01 17:08 | PN ---
PROGRESS NOTE This is a very pleasant, 66-year-old male patient coming in for a followup regarding obstructive sleep apnea. I have diagnosed patient having JIMMIE back in 2015. At that time, the patient was diagnosed having severe JIMMIE with an AHI of 36. He also demonstrated severe nocturnal oxygen desaturation and sleep fragmentation. He had also multiple comorbidities including chronic atrial fibrillation. CHF with an ejection fraction of 20% and COPD. Based on that, he underwent a CPAP titration. He was titrated to a CPAP pressure of 16 cm of water. He was unable to get a CPAP machine knowing that this was not covered by his insurance. He was unable to afford the co- pay. [facility] to [facility] and he was lost to follow up and he did not receive any treatment. Recently his symptoms have been getting worse. The patient has been having difficulty in sleeping. He has been sleeping in some sort of recliner bed at home. He is having chronic lower extremity edema. He is very somnolent and sleepy during the day. Still snoring loud and he is requesting followup. It seems that he has gotten his medicaid and should be able to get a CPAP machine. He has also had persistent problems with chronic atrial fibrillation. PHYSICAL EXAMINATION: BP is 150/77, pulse 72, respirations 20, temperature 96.7, saturation is 90% on room air. Weight is 315, height is 5 feet 6 inches. Neck size 18 inches. General appearance calm comfortable. Head is atraumatic, normocephalic. Neck is short, crowding of posterior pharynx. No goiter or neck masses. Lungs diminished lung base bilaterally. Heart sounds are irregular. Positive S1, S2. Abdomen is soft, nontender. No organomegaly. Organs cannot be adequately palpated because of his morbid obese body habitus. Extremities very dry skin, scaling with some trace edema. There is no cyanosis or clubbing at this point. NEUROLOGIC: Alert and oriented x3. There is no focal neurological deficits. Psychiatric negative for anxiety or depression. IMPRESSION: 1. Severe obstructive sleep apnea, AHI of 36. The patient is asymptomatic currently undergoing no treatment. 2. Morbid obesity with interval weight gain. Current BMI is 50.8. 3. Chronic hypersomnia. 4. Chronic atrial fibrillation. 5. Congestive heart failure, ejection fraction 20%. He was not found to be an . 6. Chronic obstructive pulmonary disease. PLAN: The patient obviously will need CPAP therapy. The patient will be a given a CPAP titration and will be fitted with a nose mask preferred knowing that he is a nose breather. We will update his CPAP pressure and we will offer him a new CPAP machine. See me back in 30-90 days for follow up after obtaining his CPAP machine. FRANSISCO / DUONG: [id number] /
== END ==
LOC: SLEEP 14:48
PROVIDERS: ATTEND Internal Medicine Critical Care Medicine
DX: Z51.89 Encounter for other specified aftercare (principal); G47.33 Obstructive sleep apnea (adult) (pediatric); E66.01 Morbid (severe) obesity due to excess calories; Z68.43 Body mass index [BMI] 50.0-59.9, adult

== ENCOUNTER → 2017-10-18 | Outpatient (CLI) | payer MEDICARE, BC ==
--- NOTE | 2017-10-18 17:26 | PN ---
PROGRESS NOTE This is a 67-year-old male patient coming in for a compliance check regarding obstructive sleep apnea. The patient has severe symptomatic obstructive sleep apnea with an AHI of 36. He also has chronic atrial fibrillation and congestive heart failure with an ejection fraction of 20%. The patient was titrated to a CPAP pressure of 19 cm of water along with oxygen at 2 L. The patient is coming in for a followup and compliancy check. He reports marked improvement in his sleep quality. He is able to sleep much better. He is still sleeping on a recliner next to his , who is very sick and sleeps in a hospital bed. As such, he has gotten used to sleeping on a recliner, as the patient attends to his 's needs overnight. He is using his CPAP every night. His CPAP use for more than 4 hours is 97%. His average CPAP use is around 6 hours and 10 minutes. He is using a Simplus full-face mask. His AHI while on treatment is down to 0.4. The patient is feeling more awake and alert during the day. No snoring while on CPAP therapy for now. The patient has no other complaints for now. Based on this most recent titration, the patient was moved up to a pressure of 19 cm of water. Note that his prior pressure was 16 cm. BP is 158/96, pulse 110, respirations 18, temperature 98.1. Weight is 310, saturation 92% on room air. GENERAL APPEARANCE: Calm, comfortable. Head is atraumatic, normocephalic. NECK: Short, supple. Crowding of posterior pharynx. No goiter or neck mass. LUNGS: Diminished breath sounds bilaterally; otherwise clear. Heart sounds are irregular. Positive S1, S2. No S3. No murmurs. Abdomen is soft, nontender. No organomegaly. EXTREMITIES: Trace edema. No cyanosis or clubbing. NEUROLOGIC: Alert and oriented x3. No focal neurological deficits. PSYCHIATRIC: Negative for anxiety or depression. IMPRESSION: 1. Severe symptomatic obstructive sleep apnea with an AHI of 36. Patient underwent successful CPAP titration. His treatment has been successful and the patient has been compliant and he has been benefitting from the treatment. 2. Chronic atrial fibrillation. 3. Chronic hypersomnia. 4. Obesity with a body mass index of 50.8. 5. Congestive heart failure with an ejection fraction of 20%. 6. Chronic obstructive pulmonary disease. PLAN: 1. Continue CPAP at the same level of pressure, which is 19, with oxygen at 2 L. 2. Use a large-sized Simplus full-face mask. 3. RAMP 30 minutes. 4. Continue treatment, as the treatment has been successful and the patient has been compliant. The patient will see me back in a year's time, earlier if needed. Tight control of cardiovascular risk factors. The treatment has been extremely successful for now. MMODL / IJN: [id number] /
== END | disposition home or self-care (01) ==
LOC: SLEEP 16:11
PROVIDERS: ATTEND Internal Medicine Critical Care Medicine
DX: G47.33 Obstructive sleep apnea (adult) (pediatric) (principal); I48.2 Chronic atrial fibrillation; I50.9 Heart failure, unspecified; J44.9 Chronic obstructive pulmonary disease, unspecified; E66.9 Obesity, unspecified; Z99.89 Dependence on other enabling machines and devices; Z68.43 Body mass index [BMI] 50.0-59.9, adult

== ENCOUNTER → 2018-06-09 | Outpatient (CLI) | payer MEDICARE, BC ==
[2018-06-09 15:08] LABS: Anisocytosis Slight; HCT 36.7 % (39.0-53.0); HGB 11.5 gm/dL (13.0-17.5); Hypochromasia Slight; MCHC 31.3 g/dL (31.0-37.0); MCV 92.6 fL (80.0-100.0); Mean Platelet Volume 7.2; Platelet Count 153 k/uL (150-450); RBC 3.97 m/uL (4.30-5.90); RDW 16.5 % (11.5-15.5); WBC 5.8 k/uL (3.8-10.6)
[2018-06-09 15:20] LABS: INR 3.3 (<1.2); Prothrombin Time 31.3 sec (9.0-12.0)
[2018-06-09 15:36] LABS: Digoxin 0.5 ng/mL; Potassium 4.1 mmol/L (3.5-5.1)
== END | disposition home or self-care (01) ==
LOC: LABPAT 14:25
PROVIDERS: ATTEND Thoracic Surgery (Cardiothoracic Vascular Surgery)
DX: Z01.818 Encounter for other preprocedural examination (principal); Z01.812 Encounter for preprocedural laboratory examination
CPT/HCPCS: 80051; 80162; 82565; 84520; 85027; 85610; 93005

== ENCOUNTER 2018-06-13 08:02 | Day surgery (SDC) | payer MEDICARE, BC ==
[2018-06-09 10:38] VITALS: BMI 42.6
[~2018-06-13 08:02] MED LIST: DEXAMETHASONE SOD PHOSPHATE 10 MG/ML 1 ML VIAL IV ONE; HYDROmorphone 0.5 MG/0.5 ML SYRINGE IVP PRN; LACTATED RINGERS 1,000 ML IV SCH; LIDOCAINE 1% 20 ML VIAL (10MG/ML) FOR IV START INTRADERMA PRN; MIDAZOLAM (PF) 2 MG/2 ML VIAL IV PRN; ONDANSETRON 4 MG/2 ML VIAL IVP ONE; SCOPOLAMINE 1.5MG/72HR PATCH TRANSDERM ONE; ceFAZolin IN SWFI 2 GM/20 ML SYRINGE IVP ONE
[2018-06-13 09:31] LABS: Prothrombin Time 19.8 sec (9.0-12.0)
--- NOTE | 2018-06-13 10:41 | P.GSHP ---
History of Present Illness H&P Date: 06/13/18 Chief Complaint: Ulceration left lower leg This 67-year-old gentleman has severe bilateral lower extremity chronic venous disease. He is not always compliant with outpatient compressive therapy. - Constitutional Constitutional: Reports weakness, Denies chills, Denies fever - EENT Eyes: denies blurred vision, denies pain Ears, nose, mouth and throat: Denies headache, Denies sore throat - Cardiovascular Cardiovascular: Reports decreased exercise tolerance, Reports leg edema, Denies chest pain, Denies orthopnea, Denies paroxysmal nocturnal dyspnea, Denies shortness of breath - Respiratory Respiratory: Denies cough, Denies cough with sputum, Denies hemoptysis - Gastrointestinal Gastrointestinal: Denies abdominal pain, Denies coffee ground emesis, Denies diarrhea, Denies hematemesis, Denies hematochezia, Denies jaundice, Denies nausea, Denies vomiting - Genitourinary (Female) Genitourinary: Denies dysuria, Denies hematuria - Genitourinary (Male) Genitourinary: Denies dysuria, Denies hematuria - Musculoskeletal Musculoskeletal: Denies myalgias - Integumentary Comment: Left leg ulcers Integumentary: Denies pruritus, Denies rash - Neurological Neurological: Denies numbness, Denies weakness - Psychiatric Psychiatric: Denies anxiety, Denies depression - Endocrine Endocrine: Denies fatigue, Denies weight change - Hematologic/Lymphatic Comment: Patient is on Coumadin - Allergic/Immunologic Allergic/Immunologic: Denies anaphylaxis, Denies angioedema Past Medical History Past Medical History: Atrial Fibrillation, Heart Failure, COPD, Hypertension, Osteoarthritis (OA), Pneumonia, Prostate Disorder, Sleep Apnea/CPAP/BIPAP, Vascular Disorder Additional Past Medical History / Comment(s): HANDS TREMOR AND DIFFICULTY GRASPING GLASS., VARICOSE VEINS, SWELLING IN LOWER LEGS AND FEET, HX BRONCHITIS , GOUT, SINUS PROBLEMS AT TIMES., STATES SEEN IN PAST FOR DECREASED KIDNEY FUNCTION.,STATES SORE ON LEFT LOWER LEG-ABOVE ANKLE THAT IS DRAINING ., USES WALKER TO AMBULATE., SOME NUMBNESS toña LEG., PAST HX OF NON-HEALING SORES. History of Any Multi-Drug Resistant Organisms: MRSA Date of last positivie culture/infection: 08/30/12 MDRO Source:: LEG(not sure which) Past Surgical History: Heart Catheterization Additional Past Surgical History / Comment(s): CYST AND PARTIAL JAW REMOVED/ SCREWS IN PLACE, ORAL SX AGE 8 TO BRING TEETH DOWN, BRONCHOSCOPY Past Anesthesia/Blood Transfusion Reactions: Previous Problems w/ Anesthesia Additional Past Anesthesia/Blood Transfusion Reaction / Comment(s): STATED DURING BRONCH STOPPED BREATHING, (brochoscopy done at [facility]-record on chart) Smoking Status: Former smoker - Past Family History Father Family Medical History: Dementia Additional Family Medical History / Comment(s): MACULAR DEGENERATION Mother Family Medical History: No Reported History Additional Family Medical History / Comment(s): ANEURYSMS, CATARACTS. Medications and Allergies Home Medications Medication Instructions Recorded Confirmed Type Isosorbide Mononitrate ER [Imdur] 30 mg PO DAILY 04/11/14 06/09/18 History Tamsulosin HCl [Flomax] 0.8 mg PO DAILY 04/11/14 06/13/18 History Allopurinol [Zyloprim] 300 mg PO DAILY 03/03/16 06/13/18 History HYDROcodone/APAP 5-325MG [[place] 1 tab PO Q6HR PRN 08/09/16 06/13/18 History 5-325] Carvedilol [Coreg] 25 mg PO BID 04/25/18 06/09/18 History Furosemide [Lasix] 40 mg PO BID 04/25/18 06/13/18 History Lisinopril [Zestril] 20 mg PO DAILY 04/25/18 06/09/18 History Magnesium Oxide 400 mg PO DAILY 04/25/18 06/13/18 History Metolazone [Zaroxolyn] 5 mg PO DAILY 04/25/18 06/09/18 History Naproxen 500 mg PO BID 04/25/18 06/09/18 History Potassium Chloride 20 meq PO BID 04/25/18 06/13/18 History Warfarin [Coumadin] 7.5 mg PO DAILY 04/25/18 06/09/18 History Sulfamethox-Tmp 800-160Mg [Bactrim 1 tab PO Q12HR 05/24/18 06/13/18 History DS 800-160 mg] Digoxin [Lanoxin] 125 mcg PO AC-SUPPER 06/09/18 06/09/18 History hydrALAZINE HCL [Apresoline] 50 mg PO BID 06/09/18 06/09/18 History Allergies Allergy/AdvReac Type Severity Reaction Status Date / Time No Known Allergies Allergy Verified 06/09/18 10:17 Surgical - Exam Osteopathic Statement: *. No significant issues noted on an osteopathic structural exam other than those noted in the History and Physical/Consult. Vital Signs Temp Pulse Resp BP Pulse Ox 97.8 F 76 16 132/72 94 L 06/13/18 08:34 06/13/18 08:34 06/13/18 08:34 06/13/18 08:34 06/13/18 08:34 - General well developed, well nourished, no distress, obese - Eyes normal ocular movement, no icteric - ENT no hearing loss, no congestion - Neck no masses, no bruits, trachea midline - Respiratory normal expansion, normal respiratory effort, clear to auscultation - Cardiovascular Rhythm: irregularly irregular - Abdomen Abdomen: soft, non tender, no guarding, no rigid, no rebound - Integumentary Patient has a large area on the lateral aspect of the left lower leg. It is a regular with a total dimension of about 12 x 12 cm no rash, no abnormal pigmentation - Neurologic no disoriented, no combative - Psychiatric oriented to time, oriented to person, oriented to place, speech is normal, memory intact Results - Labs Abnormal Lab Results - Last 24 Hours (Table) 06/13/18 Range/Units 08:51 PT 19.8 H (9.0-12.0) sec INR 2.0 H (<1.2) Assessment and Plan (1) Venous stasis ulcer of left lower extremity Current Visit: No Status: Acute Code(s): I83.029 - VARICOSE VEINS OF LEFT LOWER EXTREMITY W ULCER OF UNSP SITE SNOMED Code(s): 705986994 Plan: Patient is admitted for split-thickness skin graft. We've discussed with her the procedure and its risks. He appears to understand these and agrees to proceed.
[2018-06-13] MEDS ORDERED: MINERAL OIL 1 APPLIC/ML OIL TOPICAL ONE ×2 (10:45→11:21)
[2018-06-13] MEDS ORDERED: PROPOFOL 10 MG/ML 20 ML VIAL IV ONE (10:58)
[2018-06-13] MEDS ORDERED: MIDAZOLAM 2 MG/2 ML VIAL ONE (10:58)
[2018-06-13] MEDS ORDERED: ePHEDrine SULFATE/0.9% NACL/PF 50 MG/5 ML SYRINGE IV ONE (10:58)
[2018-06-13] MEDS ORDERED: fentaNYL (PF) 50 MCG/ML 2 ML AMP ONE (10:58)
[2018-06-13] MEDS ORDERED: LACTATED RINGERS 1,000 ML IV ONE (11:54)
--- NOTE | 2018-06-13 12:01 | P.PCN ---
Date of Procedure: 06/13/18 Preoperative Diagnosis: Venous stasis ulcer left lower leg Postoperative Diagnosis: Same Procedure(s) Performed: Split thickness skin graft Anesthesia: MAC Surgeon: Laz Cadet IV fluids (ml): 15 Pathology: none sent Condition: stable Disposition: PACU Indications for Procedure: The patient has a large venous stasis ulcer left lower leg. Operative Findings: The area encompassed about 12 x 12 cm lateral left lower leg. It was very irregular. The quality of the skin graft was excellent. There was good bleeding in the area of the debrided skin graft recipient site. Description of Procedure: With the patient spine position, under benefit of IV sedation, we prepped and draped in standard fashion. We did an open debridement using a sharp curette over the area of the recipient site. There was excellent bleeding throughout. Bleeding was controlled with gentle pressure. We then harvested a 10 one thousands thickness skin graft from the anterior lateral left thigh. It was a 1 inch wide and 12 cm long segment. Hemostasis was accomplished with mild pressure. The site was covered with Tegaderm. We then used the 1-3 mesh device to mesh the graft. It was then placed on the recipient site. The initial portion was placed on the largest area. 2 smaller portions were cut from it and placed on smaller peninsulas of the ulcer. These were flattened and smooth nicely. It was then held in place with Adaptic touch. The Adaptic touch was held in place with window pained half-inch Steri-Strips. We then placed Surgicel over the graft sites. This was covered with absorptive silver. The absorptive silver was then also moistened with Surgicel. We then placed Kerlix on the foot and lower leg. This was held in place with [id number]-li-tkoor 4 inch Kahlil wrap. The patient tolerated the procedure well and was taken to recovery area in stable condition.
[2018-06-13 12:31] VITALS: TEMP 97.2
[2018-06-13 12:49] VITALS: RESP 16
[2018-06-13 13:28] VITALS: BP 129/72; PULSE 74
== END 2018-06-13 13:54 | disposition home or self-care (01) ==
LOC: OR 08:02
PROVIDERS: ATTEND Thoracic Surgery (Cardiothoracic Vascular Surgery)
DX: I83.028 Varicose veins of left lower extremity with ulcer other part of lower leg (principal); L97.829 Non-pressure chronic ulcer of other part of left lower leg with unspecified severity; I87.8 Other specified disorders of veins; I48.91 Unspecified atrial fibrillation; I11.0 Hypertensive heart disease with heart failure; I50.9 Heart failure, unspecified; M19.90 Unspecified osteoarthritis, unspecified site; N42.9 Disorder of prostate, unspecified; G47.30 Sleep apnea, unspecified; R25.1 Tremor, unspecified; R22.43 Localized swelling, mass and lump, lower limb, bilateral; M10.9 Gout, unspecified; R20.0 Anesthesia of skin; I25.10 Atherosclerotic heart disease of native coronary artery without angina pectoris; Z99.89 Dependence on other enabling machines and devices; Z79.01 Long term (current) use of anticoagulants; Z79.1 Long term (current) use of non-steroidal anti-inflammatories (NSAID); Z79.899 Other long term (current) drug therapy; Z86.14 Personal history of Methicillin resistant Staphylococcus aureus infection; Z87.891 Personal history of nicotine dependence
CPT/HCPCS: 85610; 15100; J2250; J1100; J0690; J2405; J3010; J2704

== ENCOUNTER → 2019-08-17 | Outpatient (CLI) | payer MEDICARE, BC ==
--- NOTE | 2019-08-17 14:46 | XR ---
EXAMINATION TYPE: XR chest 2V DATE OF EXAM: 08/17/2019 COMPARISON: August 09, 2016 HISTORY: Shortness of breath TECHNIQUE: Frontal and lateral views of the chest are obtained. FINDINGS: Scattered senescent parenchymal changes noted. Hyperinflation compatible with COPD. No evidence for infiltrate. No evidence for atelectasis. Stable right upper lobe nodule. Heart size is stable. Findings compatible with pulmonary arterial hypertension. Mediastinal structures are stable and grossly unremarkable. No evidence for hilar prominence. Degenerative changes dorsal spine. IMPRESSION: 1. No evidence for acute pulmonary disease.
== END | disposition home or self-care (01) ==
LOC: RADXRMAIN 14:24
PROVIDERS: ATTEND Family Medicine
DX: R05 Cough (principal)
CPT/HCPCS: 71046

== ENCOUNTER 2019-08-18 16:14 | Inpatient (IN) | payer MEDICARE, BC ==
[2019-08-18 16:49] LABS: Anisocytosis Slight; Basophils % (A) 1 %; Eosinophils # (A) 0.1 k/uL (0-0.7); Eosinophils % (A) 4 %; HCT 38.6 % (39.0-53.0); HGB 12.1 gm/dL (13.0-17.5); Lymphocytes # (A) 0.5 k/uL (1.0-4.8); Lymphocytes % (A) 17 %; MCH 28.9 pg (25.0-35.0); MCHC 31.4 g/dL (31.0-37.0); Monocytes # (A) 0.2 k/uL (0-1.0); Monocytes % (A) 8 %; Neutrophils # (A) 2.1 k/uL (1.3-7.7); Neutrophils % (A) 67 %; Platelet Count 127 k/uL (150-450); RBC 4.19 m/uL (4.30-5.90); RDW 16.8 % (11.5-15.5); WBC 3.1 k/uL (3.8-10.6)
--- NOTE | 2019-08-18 16:51 | ED ---
General Adult HPI - General Chief complaint: Shortness of Breath Stated complaint: PADMINI Time Seen by Provider: 08/18/19 16:29 Source: patient Mode of arrival: wheelchair Limitations: no limitations - History of Present Illness Initial comments: Patient presents the ED with his son for evaluation. Patient states that he has been dyspneic for the past 4 days, and he admits to having a productive cough for the past 4 days as well. Patient states that he was seen at his primary care provider's office yesterday, and he states that he had blood work and a chest x-ray done at that time. Patient states that he was called by his primary care provider's office today, and he was instructed to come to the ED for further testing. Patient states that he is unsure why. Patient admits to having bilateral lower extremity edema. Patient denies having any pain, fever or chills, headache, focal neuro deficit, chest pain or pressure, hemoptysis, palpitations, dizziness, nausea or vomiting, diarrhea, urinary symptoms, decreased urine output, leg or calf pain, or any other symptoms or complaints. Patient states that he is normally on 2 L of oxygen at night. - Related Data Home Medications Medication Instructions Recorded Confirmed Isosorbide Mononitrate ER [Imdur] 30 mg PO DAILY 04/11/14 08/18/19 Tamsulosin HCl [Flomax] 0.8 mg PO DAILY 04/11/14 08/18/19 Allopurinol [Zyloprim] 300 mg PO DAILY 03/03/16 08/18/19 Carvedilol [Coreg] 25 mg PO BID 04/25/18 08/18/19 Lisinopril [Zestril] 20 mg PO DAILY 04/25/18 08/18/19 Magnesium Oxide 400 mg PO DAILY 04/25/18 08/18/19 Metolazone [Zaroxolyn] 5 mg PO DAILY 04/25/18 08/18/19 Naproxen 500 mg PO BID 04/25/18 08/18/19 Potassium Chloride 20 meq PO BID 04/25/18 08/18/19 Warfarin [Coumadin] 7.5 mg PO DAILY 04/25/18 08/18/19 Digoxin [Lanoxin] 125 mcg PO AC-SUPPER 06/09/18 08/18/19 Furosemide [Lasix] 80 mg PO BID 08/18/19 08/18/19 Triamcinolone 0.1% Cream [Kenalog 1 applicatio TOPICAL BID PRN 08/18/19 08/18/19 0.1% Cream] hydrALAZINE HCL [Apresoline] 100 mg PO BID 08/18/19 08/18/19 Allergies Allergy/AdvReac Type Severity Reaction Status Date / Time No Known Allergies Allergy Verified 08/18/19 16:20 Review of Systems ROS Statement: Those systems with pertinent positive or pertinent negative responses have been documented in the HPI. ROS Other: All systems not noted in ROS Statement are negative. Past Medical History Past Medical History: Atrial Fibrillation, Heart Failure, COPD, Hypertension, Osteoarthritis (OA), Pneumonia, Prostate Disorder, Sleep Apnea/CPAP/BIPAP, Vascular Disorder Additional Past Medical History / Comment(s): HANDS TREMOR AND DIFFICULTY G RASPING GLASS., VARICOSE VEINS, SWELLING IN LOWER LEGS AND FEET, HX BRONCHITIS, GOUT, SINUS PROBLEMS AT TIMES., STATES SEEN IN PAST FOR DECREASED KIDNEY FUNCTION.,STATES SORE ON LEFT LOWER LEG-ABOVE ANKLE THAT IS DRAINING ., USES WALKER TO AMBULATE., SOME NUMBNESS toña LEG., PAST HX OF NON-HEALING SORES. History of Any Multi-Drug Resistant Organisms: MRSA Date of last positivie culture/infection: 08/30/12 MDRO Source:: LEG(not sure which) Past Surgical History: Heart Catheterization Additional Past Surgical History / Comment(s): CYST AND PARTIAL JAW REMOVED/SCREWS IN PLACE, ORAL SX AGE 8 TO BRING TEETH DOWN, BRONCHOSCOPY Past Anesthesia/Blood Transfusion Reactions: Previous Problems w/ Anesthesia Additional Past Anesthesia/Blood Transfusion Reaction / Comment(s): STATED DURING BRONCH STOPPED BREATHING, (brochoscopy done at [facility]-record on chart) Past Psychological History: Anxiety Past Alcohol Use History: None Reported - Past Family History Father Family Medical History: Dementia Additional Family Medical History / Comment(s): MACULAR DEGENERATION Mother Family Medical History: Diabetes Mellitus Additional Family Medical History / Comment(s): ANEURYSMS, CATARACTS. General Exam Limitations: no limitations General appearance: alert, in no apparent distress Head exam: Present: atraumatic, normocephalic Eye exam: Present: normal appearance, EOMI ENT exam: Present: normal oropharynx, mucous membranes moist Neck exam: Present: other (Trachea is in midline). Absent: tenderness Respiratory exam: Present: normal lung sounds bilaterally, rales. Absent: respiratory distress, wheezes, stridor Cardiovascular Exam: Present: regular rate, irregular rhythm, normal heart sounds, other (Normal radial pulses bilaterally) GI/Abdominal exam: Present: soft. Absent: distended, tenderness Extremities exam: Present: other (Bilateral lower extremity pedal edema; negat merline Trace's sign bilaterally). Absent: tenderness, calf tenderness Neurological exam: Present: alert, oriented X3. Absent: motor sensory deficit Psychiatric exam: Present: normal affect, normal mood Skin exam: Present: warm, dry, intact, normal color Course Vital Signs 08/18/19 08/18/19 08/18/19 16:16 17:10 17:30 Temperature 97.8 F Pulse Rate 81 55 L 55 L Respiratory 20 Rate Blood Pressure 165/107 175/102 175/102 O2 Sat by Pulse 89 L 89 L 90 L Oximetry 08/18/19 08/18/19 17:40 17:48 Temperature Pulse Rate 70 Respiratory 16 Rate Blood Pressure 165/95 O2 Sat by Pulse 95 95 Oximetry - Reevaluation(s) Reevaluation #1: 08/18/19 18:25 Case, H&P and test results were discussed with Dr. Trevino (hospitalist). She accepts hospital admission. She agrees with plan to treat the patient with IV diuretics for CHF, as well as IV antibiotics given the patient's chest x-ray report. She has no further recommendations at this time. 08/18/19 18:36 Patient remains alert and breathing comfortably. Patient denies development of any new symptoms while in the ED. Patient and son are aware of the patient's test results, and patient agrees with hospital admission this time. EKG Findings - EKG Comments: EKG Findings:: Atrial fibrillation, occasional PVCs versus aberrantly conducted complexes, ventricular rate of 66 bpm, normal QRS interval, normal QT interval, leftward axis, incomplete right bundle branch block, voltage criteria for LVH, lateral limb lead ST and T-wave abnormality, no significant change from 06/09 EKG Medical Decision Making - Medical Decision Making Given the patient's exam (rales and lower extremity edema) and elevated BNP, I suspect that the patient's symptoms are likely secondary to CHF. Given the patient's productive cough and left lower lobe density seen on chest x-ray, patient was also treated for community-acquired pneumonia with IV antibiotics. Dr. Trevino has accepted the patient for hospital admission. - Lab Data Result diagrams: 08/18/19 16:41 08/18/19 16:41 Lab Results 08/18/19 08/18/19 08/18/19 Range/Units 16:41 16:41 16:41 WBC 3.1 L (3.8-10.6) k/uL RBC 4.19 L (4.30-5.90) m/uL Hgb 12.1 L (13.0-17.5) gm/dL Hct 38.6 L (39.0-53.0) % MCV 92.0 (80.0-100.0) fL MCH 28.9 (25.0-35.0) pg MCHC 31.4 (31.0-37.0) g/dL RDW 16.8 H (11.5-15.5) % Plt Count 127 L (150-450) k/uL Neutrophils % 67 % Lymphocytes % 17 % Monocytes % 8 % Eosinophils % 4 % Basophils % 1 % Neutrophils # 2.1 (1.3-7.7) k/uL Lymphocytes # 0.5 L (1.0-4.8) k/uL Monocytes # 0.2 (0-1.0) k/uL Eosinophils # 0.1 (0-0.7) k/uL Basophils # 0.0 (0-0.2) k/uL Anisocytosis Slight PT (9.0-12.0) sec INR (<1.2) APTT (22.0-30.0) sec Sodium 139 (137-145) mmol/L Potassium 3.4 L (3.5-5.1) mmol/L Chloride 98 (98-107) mmol/L Carbon Dioxide 35 H (22-30) mmol/L Anion Gap 6 mmol/L BUN 33 H (9-20) mg/dL Creatinine 1.10 (0.66-1.25) mg/dL Est GFR (CKD-EPI)AfAm 80 (>60 ml/min/1.73 sqM) Est GFR (CKD-EPI)NonAf 69 (>60 ml/min/1.73 sqM) Glucose 114 H (74-99) mg/dL Plasma Lactic Acid Tavares (0.7-2.0) mmol/L Calcium 8.3 L (8.4-10.2) mg/dL Total Bilirubin 2.2 H (0.2-1.3) mg/dL AST 30 (17-59) U/L ALT 16 (4-49) U/L Alkaline Phosphatase 172 H (38-126) U/L Troponin I (0.000-0.034) ng/mL NT-Pro-B Natriuret Pep 2740 pg/mL Total Protein 7.6 (6.3-8.2) g/dL Albumin 3.7 (3.5-5.0) g/dL Digoxin 0.6 ng/mL Influenza Type A RNA (Not Detectd) Influenza Type B (PCR) (Not Detectd) 08/18/19 08/18/19 08/18/19 Range/Units 16:41 16:41 16:45 WBC (3.8-10.6) k/uL RBC (4.30-5.90) m/uL Hgb (13.0-17.5) gm/dL Hct (39.0-53.0) % MCV (80.0-100.0) fL MCH (25.0-35.0) pg MCHC (31.0-37.0) g/dL RDW (11.5-15.5) % Plt Count (150-450) k/uL Neutrophils % % Lymphocytes % % Monocytes % % Eosinophils % % Basophils % % Neutrophils # (1.3-7.7) k/uL Lymphocytes # (1.0-4.8) k/uL Monocytes # (0-1.0) k/uL Eosinophils # (0-0.7) k/uL Basophils # (0-0.2) k/uL Anisocytosis PT 13.2 H (9.0-12.0) sec INR 1.3 H (<1.2) APTT 28.3 (22.0-30.0) sec Sodium (137-145) mmol/L Potassium (3.5-5.1) mmol/L Chloride (98-107) mmol/L Carbon Dioxide (22-30) mmol/L Anion Gap mmol/L BUN (9-20) mg/dL Creatinine (0.66-1.25) mg/dL Est GFR (CKD-EPI)AfAm (>60 ml/min/1.73 sqM) Est GFR (CKD-EPI)NonAf (>60 ml/min/1.73 sqM) Glucose (74-99) mg/dL Plasma Lactic Acid Tavares (0.7-2.0) mmol/L Calcium (8.4-10.2) mg/dL Total Bilirubin (0.2-1.3) mg/dL AST (17-59) U/L ALT (4-49) U/L Alkaline Phosphatase (38-126) U/L Troponin I 0.026 (0.000-0.034) ng/mL NT-Pro-B Natriuret Pep pg/mL Total Protein (6.3-8.2) g/dL Albumin (3.5-5.0) g/dL Digoxin ng/mL Influenza Type A RNA Not Detected (Not Detectd) Influenza Type B (PCR) Not Detected (Not Detectd) 08/18/19 Range/Units 17:43 WBC (3.8-10.6) k/uL RBC (4.30-5.90) m/uL Hgb (13.0-17.5) gm/dL Hct (39.0-53.0) % MCV (80.0-100.0) fL MCH (25.0-35.0) pg MCHC (31.0-37.0) g/dL RDW (11.5-15.5) % Plt Count (150-450) k/uL Neutrophils % % Lymphocytes % % Monocytes % % Eosinophils % % Basophils % % Neutrophils # (1.3-7.7) k/uL Lymphocytes # (1.0-4.8) k/uL Monocytes # (0-1.0) k/uL Eosinophils # (0-0.7) k/uL Basophils # (0-0.2) k/uL Anisocytosis PT (9.0-12.0) sec INR (<1.2) APTT (22.0-30.0) sec Sodium (137-145) mmol/L Potassium (3.5-5.1) mmol/L Chloride (98-107) mmol/L Carbon Dioxide (22-30) mmol/L Anion Gap mmol/L BUN (9-20) mg/dL Creatinine (0.66-1.25) mg/dL Est GFR (CKD-EPI)AfAm (>60 ml/min/1.73 sqM) Est GFR (CKD-EPI)NonAf (>60 ml/min/1.73 sqM) Glucose (74-99) mg/dL Plasma Lactic Acid Tavares 1.3 (0.7-2.0) mmol/L Calcium (8.4-10.2) mg/dL Total Bilirubin (0.2-1.3) mg/dL AST (17-59) U/L ALT (4-49) U/L Alkaline Phosphatase (38-126) U/L Troponin I (0.000-0.034) ng/mL NT-Pro-B Natriuret Pep pg/mL Total Protein (6.3-8.2) g/dL Albumin (3.5-5.0) g/dL Digoxin ng/mL Influenza Type A RNA (Not Detectd) Influenza Type B (PCR) (Not Detectd) - Radiology Data Radiology results: report reviewed (Chest x-ray shows increased density in the left lower lobe behind the heart suggestive of pneumonia) Disposition Clinical Impression: Atrial fibrillation, CHF (congestive heart failure) Narrative: Suspected pneumonia Disposition: ADMITTED IP TO THIS HOSP Condition: Stable Is patient prescribed a controlled substance at d/c from ED?: No Referrals: Wiliam Modi MD [Primary Care Provider] - 1-2 days Time of Disposition: 18:25
--- NOTE | 2019-08-18 16:57 | XR ---
EXAMINATION TYPE: XR chest 2V DATE OF EXAM: 08/18/2019 COMPARISON: Yesterday HISTORY: Cough and congestion TECHNIQUE: 2 views FINDINGS: Heart is enlarged. There is no heart failure. There is coarse lung markings in the lower zeke ng carmen. There could BE some left lower lobe pneumonia. There is no pleural effusion. Bony thorax i s intact. IMPRESSION: There appears to be increased density left lower lobe behind the heart compared to yester day that is suggestive of pneumonia. Mild cardiomegaly. No heart failure seen.
[2019-08-18 17:02] LABS: Albumin 3.7 g/dL (3.5-5.0); Calcium 8.3 mg/dL (8.4-10.2); Digoxin 0.6 ng/mL; INR 1.3 (<1.2); Partial Thromboplastin Time 28.3 sec (22.0-30.0); Potassium 3.4 mmol/L (3.5-5.1); Prothrombin Time 13.2 sec (9.0-12.0); Total Bilirubin 2.2 mg/dL (0.2-1.3); Total Protein 7.6 g/dL (6.3-8.2)
[2019-08-18] MEDS ORDERED: FUROSEMIDE 10 MG/ML 4 ML VIAL IV STA (18:26)
[2019-08-18] MEDS ORDERED: AZITHROMYCIN 500 MG in SODIUM CHLORIDE 0.9% 250 ML IVPB STA (18:26)
[2019-08-18] MEDS: hydrALAZINE HCL 50 MG TAB PO SCH (21:00)
[2019-08-18] MEDS: CARVEDILOL 12.5 MG TAB PO SCH (21:00)
[2019-08-18] MEDS: FUROSEMIDE 80 MG TAB PO SCH (21:00)
[2019-08-18] MEDS: POTASSIUM CHLORIDE ER 20 MEQ TAB.ER PO SCH (21:00)
[2019-08-19] MEDS ORDERED: ASPIRIN 81 MG PO STA (06:11)
[2019-08-19] MEDS: ALLOPURINOL 300 MG TAB PO SCH (09:19)
[2019-08-19] MEDS: ISOSORBIDE MONONITRATE ER 30 MG TAB.ER.24H PO SCH (09:19)
[2019-08-19] MEDS: POTASSIUM CHLORIDE ER 20 MEQ TAB.ER PO SCH ×2 (09:19→20:57)
[2019-08-19] MEDS: TAMSULOSIN 0.4 MG CAP.ER.24H PO SCH (09:19)
[2019-08-19] MEDS: CARVEDILOL 12.5 MG TAB PO SCH ×2 (09:20→20:57)
[2019-08-19] MEDS: hydrALAZINE HCL 50 MG TAB PO SCH ×2 (09:20→20:57)
[2019-08-19] MEDS: LISINOPRIL 20 MG TAB PO SCH (09:20)
[2019-08-19] MEDS: METOLAZONE 5 MG TAB PO SCH (09:20)
[2019-08-19] MEDS: FUROSEMIDE 80 MG TAB PO SCH ×2 (09:20→20:57)
[2019-08-19 10:54] LABS: INR 1.4 (<1.2); Prothrombin Time 13.9 sec (9.0-12.0)
--- NOTE | 2019-08-19 11:01 | P.CRDCN ---
History of Present Illness Consult date: 08/19/19 Requesting physician: Mireille Trevino Consult reason: congestive heart failure Chief complaint: Short of breath History of present illness: This is a 69-year-old gentleman with history of nonischemic cardiomyopathy, chronic atrial fibrillation, hypertension, COPD, who presented to the hospital with symptoms of shortness of breath. The patient has chronic leg edema as well as chronic stasis of both of his legs for which she was being followed at the [facility]. He follows with Dr. Sheriff in the office on a regular basis. Chest x-ray was performed on arrival here, there appears to be an increased density over the left lower lobe behind the heart as compared with yesterday, suggestive of possible pneumonia. EKG shows atrial fibrillation with a controlled ventricular response. Blood pressure 146/70 with a heart rate in the 80s, afebrile. White blood cell count 3.1, hemoglobin 12.1, platelet count 127. Sodium 139, potassium 3.4, BUN 33, creatinine 1.1. Troponin went 026, 0.03, 0.03. BNP [id number]. Patient was seen and examined this morning sitting up in the chair at bedside. He does state overall that he feels significantly better than he did yesterday on presentation here. Past Medical History Past Medical History: Atrial Fibrillation, Heart Failure, COPD, Hypertension, Osteoarthritis (OA), Pneumonia, Prostate Disorder, Sleep Apnea/CPAP/BIPAP, Vascular Disorder Additional Past Medical History / Comment(s): HANDS TREMOR AND DIFFICULTY GRASPING GLASS., VARICOSE VEINS, SWELLING IN LOWER LEGS AND FEET, HX BRONCHITIS, GOUT, SINUS PROBLEMS AT TIMES., STATES SEEN IN PAST FOR DECREASED KIDNEY FUN CTION.,STATES SORE ON LEFT LOWER LEG-ABOVE ANKLE THAT IS DRAINING ., USES WALKER TO AMBULATE., SOME NUMBNESS toña LEG., PAST HX OF NON-HEALING SORES. History of Any Multi-Drug Resistant Organisms: MRSA Date of last positivie culture/infection: 08/30/12 MDRO Source:: LEG(not sure which) Past Surgical History: Heart Catheterization Additional Past Surgical History / Comment(s): CYST AND PARTIAL JAW REMOVED/SCREWS IN PLACE, ORAL SX AGE 8 TO BRING TEETH DOWN, BRONCHOSCOPY Past Anesthesia/Blood Transfusion Reactions: Previous Problems w/ Anesthesia Additional Past Anesthesia/Blood Transfusion Reaction / Comment(s): STATED DUR ING BRONCH STOPPED BREATHING, (brochoscopy done at [facility]-record on chart) Past Psychological History: Anxiety Smoking Status: Former smoker Past Alcohol Use History: None Reported Additional Past Alcohol Use History / Comment(s): STATES HE SMOKED CIGARS IN HIS 20'S Past Drug Use History: None Reported - Past Family History Father Family Medical History: Dementia Additional Family Medical History / Comment(s): MACULAR DEGENERATION Mother Family Medical History: Diabetes Mellitus Additional Family Medical History / Comment(s): ANEURYSMS, CATARACTS. Medications and Allergies Home Medications Medication Instructions Recorded Confirmed Type Isosorbide Mononitrate ER [Imdur] 30 mg PO DAILY 04/11/14 08/18/19 History Tamsulosin HCl [Flomax] 0.8 mg PO DAILY 04/11/14 08/18/19 History Allopurinol [Zyloprim] 300 mg PO DAILY 03/03/16 08/18/19 History Carvedilol [Coreg] 25 mg PO BID 04/25/18 08/18/19 History Lisinopril [Zestril] 20 mg PO DAILY 04/25/18 08/18/19 History Magnesium Oxide 400 mg PO DAILY 04/25/18 08/18/19 History Metolazone [Zaroxolyn] 5 mg PO DAILY 04/25/18 08/18/19 History Naproxen 500 mg PO BID 04/25/18 08/18/19 History Potassium Chloride 20 meq PO BID 04/25/18 08/18/19 History Warfarin [Coumadin] 7.5 mg PO DAILY 04/25/18 08/18/19 History Digoxin [Lanoxin] 125 mcg PO AC-SUPPER 06/09/18 08/18/19 History Furosemide [Lasix] 40 mg PO BID 08/18/19 08/19/19 History Triamcinolone 0.1% Cream [Kenalog 1 applicatio TOPICAL BID PRN 08/18/19 08/18/19 History 0.1% Cream] hydrALAZINE HCL [Apresoline] 100 mg PO BID 08/18/19 08/18/19 History Allergies Allergy/AdvReac Type Severity Reaction Status Date / Time No Known Allergies Allergy Verified 08/18/19 16:20 Physical Exam Vitals: Vital Signs Temp Pulse Pulse Resp BP BP Pulse Ox 08/19/19 08:00 98.2 F 67 18 173/94 95 02/23/20 04:00 97.7 F 70 18 172/90 95 08/19/19 00:00 97.6 F 83 20 146/76 91 L 08/18/19 20:00 97.7 F 90 20 189/94 93 L 08/18/19 18:30 58 L 16 179/101 93 L 08/18/19 18:00 88 18 165/95 90 L 08/18/19 17:48 16 95 08/18/19 17:40 70 165/95 95 08/18/19 17:30 55 L 175/102 90 L 08/18/19 17:10 55 L 175/102 89 L 08/18/19 16:16 97.8 F 81 20 165/107 89 L Intake and Output 08/18/19 08/19/19 08/19/19 22:59 06:59 14:59 Intake Total 240 Output Total 800 2425 Balance -800 -2185 Intake: Oral 240 Output: Urine 800 2425 Other: Weight 120.656 kg 113.3 kg PHYSICAL EXAMINATION: HEENT: Head is atraumatic, normocephalic. Pupils equal, round. Neck is supple. There is no elevated jugular venous pressure. HEART EXAMINATION: Heart S1 and S2 irregularly irregular CHEST EXAMINATION: Lungs reveal diminished air entry to bilateral bases. ABDOMEN: Soft, obese, nontender. Bowel sounds are heard. No organomegaly noted. EXTREMITIES: 1+ peripheral pulses with1- 2+ evidence of peripheral edema and no calf tenderness noted. Evidence of chronic venous stasis and cellulitis. Bilateral Kahlil wraps are in today. NEUROLOGIC patient is awake, alert and oriented -3. Results 08/18/19 16:41 08/18/19 16:41 Cardiac Enzymes 08/18/19 08/18/19 08/18/19 Range/Units 16:41 16:41 23:36 AST 30 (17-59) U/L Troponin I 0.026 0.030 (0.000-0.034) ng/mL 08/19/19 Range/Units 04:42 AST (17-59) U/L Troponin I 0.036 H* (0.000-0.034) ng/mL Coagulation 08/18/19 Range/Units 16:41 PT 13.2 H (9.0-12.0) sec APTT 28.3 (22.0-30.0) sec CBC 08/18/19 Range/Units 16:41 WBC 3.1 L (3.8-10.6) k/uL RBC 4.19 L (4.30-5.90) m/uL Hgb 12.1 L (13.0-17.5) gm/dL Hct 38.6 L (39.0-53.0) % Plt Count 127 L (150-450) k/uL Comprehensive Metabolic Panel 08/18/19 Range/Units 16:41 Sodium 139 (137-145) mmol/L Potassium 3.4 L (3.5-5.1) mmol/L Chloride 98 (98-107) mmol/L Carbon Dioxide 35 H (22-30) mmol/L BUN 33 H (9-20) mg/dL Creatinine 1.10 (0.66-1.25) mg/dL Glucose 114 H (74-99) mg/dL Calcium 8.3 L (8.4-10.2) mg/dL AST 30 (17-59) U/L ALT 16 (4-49) U/L Alkaline Phosphatase 172 H (38-126) U/L Total Protein 7.6 (6.3-8.2) g/dL Albumin 3.7 (3.5-5.0) g/dL Current Medications Generic Name Dose Route Start Last Admin Trade Name Freq PRN Reason Stop Dose Admin Allopurinol 300 mg 08/19/19 09:00 08/19/19 09:19 Zyloprim PO 300 mg DAILY JULIEN Administration Carvedilol 25 mg 08/18/19 21:00 08/19/19 09:20 Coreg PO 25 mg BID JULIEN Administration Digoxin 125 mcg 08/19/19 17:30 Lanoxin PO AC-SUPPER JULIEN Furosemide 80 mg 08/18/19 21:00 08/19/19 09:20 Lasix PO 80 mg BID JULIEN Administration Hydralazine HCl 100 mg 08/18/19 21:00 08/19/19 09:20 Apresoline PO 100 mg BID UJLIEN Administration Isosorbide Mononitrate 30 mg 08/19/19 09:00 08/19/19 09:19 Imdur PO 30 mg DAILY JULIEN Administration Lisinopril 20 mg 08/19/19 09:00 08/19/19 09:20 Zestril PO 20 mg DAILY JULIEN Administration Metolazone 5 mg 08/19/19 09:00 08/19/19 09:20 Zaroxolyn PO 5 mg DAILY JULIEN Administration Potassium Chloride 20 meq 08/18/19 21:00 08/19/19 09:19 K-Dur 20 PO 20 meq BID JULIEN Administration Tamsulosin HCl 0.8 mg 08/19/19 09:00 08/19/19 09:19 Flomax PO 0.8 mg DAILY JULIEN Administration Warfarin Sodium 7.5 mg 08/19/19 18:00 Coumadin PO DAILY@1800 [facility] Protocol Intake and Output 08/18/19 08/19/19 08/19/19 22:59 06:59 14:59 Intake Total 240 Output Total 800 2425 Balance -800 -2185 Intake: Oral 240 Output: Urine 800 2425 Other: Weight 120.656 kg 113.3 kg 08/18/19 16:41 08/18/19 16:41 EKG Interpretations (text) EKG shows atrial fibrillation with a controlled ventricular response Assessment and Plan Plan: Assessment and plan #1 symptoms of shortness of breath, no clear-cut evidence of CHF exacerbation at this time. There is evidence of a new infiltrate on the chest x-ray, patient states he was coughing up a yellow sputum initially, now it is white in color. #2 chronic persistent atrial fibrillation, rate under adequate control #3 nonischemic cardiomyopathy #4 bilateral lower leg cellulitis and chronic edema #5 hypokalemia #6 abnormality in troponin, not consistent with acute coronary syndrome with no significant rise and fall pattern #7 influenza A and B- Plan We will continue aspirin, hydralazine, Coumadin, replace the potassium, lisinopril, Imdur, Lanoxin, patient receive one dose of IV Lasix and is now on oral diuretics which we will recommend to continue as well. DNP note has been reviewed, I agree with a documented findings and plan of care. Patient was seen and examined.
[2019-08-19] MEDS ORDERED: IPRATROPIUM-ALBUTEROL 3 ML NEB INHALATION PRN (11:06)
--- NOTE | 2019-08-19 11:08 | P.HPIM ---
History of Present Illness patient is 9-year-old male came in with comments of shortness of breath has been going on for 4 days patient is comparing of low sputum production patient has an echo cardiac shadow on the chest x-ray patient does have heart failure with EF of around 30-35%. Patient is supposed to take 80 twice a day of Lasix has not been taking as dressing of his kidney. Patient is also on metolazone. Patient does have pedal edema patient denied any shortness of breath at this time. Chest x-ray did not show any heart failurebut did show any intracardiac short of on the left lower lung carmen but patient doesn't have any pneumonia clinically The fever doesn't have any leukocytosis his sputum is whitish in color.does have bilateral pedal edema with chronic wounds in both legs. Patient does take Coumadin at home INR is subtherapeutic will repeat INR today depending on that will left cheek is a dose of Coumadin here.patient also is on now. on 4 L of onset which I cannot explain Patient doesn't use any onset at home patient does have a CPAP at home. Review of Systems REVIEW OF SYSTEMS: CONSTITUTIONAL: No fever, no malaise, no fatigue. HEENT: No recent visual problems or hearing problems. Denied any sore throat. CARDIOVASCULAR: No chest pain, orthopnea, PND, no palpitations, no syncope. PULMONARY: no hemoptysis. GASTROINTESTINAL: No diarrhea, no nausea, no vomiting, no abdominal pain. NEUROLOGICAL: No headaches, no weakness, no numbness. HEMATOLOGICAL: Denies any bleeding or petechiae. GENITOURINARY: Denies any burning micturition, frequency, or urgency. MUSCULOSKELETAL/RHEUMATOLOGICAL: Denies any joint pain, swelling, or any muscle pain. ENDOCRINE: Denies any polyuria or polydipsia. The rest of the 14-point review of systems is negative. Past Medical History Past Medical History: Atrial Fibrillation, Heart Failure, COPD, Hypertension, Osteoarthritis (OA), Pneumonia, Prostate Disorder, Sleep Apnea/CPAP/BIPAP, Vascular Disorder Additional Past Medical History / Comment(s): HANDS TREMOR AND DIFFICULTY GRASPING GLASS., VARICOSE VEINS, SWELLING IN LOWER LEGS AND FEET, HX BRONCHITIS, GOUT, SINUS PROBLEMS AT TIMES., STATES SEEN IN PAST FOR DECREASED KIDNEY FUNCTION.,STATES SORE ON LEFT LOWER LEG-ABOVE ANKLE THAT IS DRAINING ., USES WALKER TO AMBULATE., SOME NUMBNESS toña LEG., PAST HX OF NON-HEALING SORES. History of Any Multi-Drug Resistant Organisms: MRSA Date of last positivie culture/infection: 08/30/12 MDRO Source:: LEG(not sure which) Past Surgical History: Heart Catheterization Additional Past Surgical History / Comment(s): CYST AND PARTIAL JAW REMOVED/SCREWS IN PLACE, ORAL SX AGE 8 TO BRING TEETH DOWN, BRONCHOSCOPY Past Anesthesia/Blood Transfusion Reactions: Previous Problems w/ Anesthesia Additional Past Anesthesia/Blood Transfusion Reaction / Comment(s): STATED DURING BRONCH STOPPED BREATHING, (brochoscopy done at [facility]-record on chart) Past Psychological History: Anxiety Smoking Status: Former smoker Past Alcohol Use History: None Reported Additional Past Alcohol Use History / Comment(s): STATES HE SMOKED CIGARS IN HIS 20'S Past Drug Use History: None Reported - Past Family History Father Family Medical History: Dementia Additional Family Medical History / Comment(s): MACULAR DEGENERATION Mother Family Medical History: Diabetes Mellitus Additional Family Medical History / Comment(s): ANEURYSMS, CATARACTS. Medications and Allergies Home Medications Medication Instructions Recorded Confirmed Type Isosorbide Mononitrate ER [Imdur] 30 mg PO DAILY 04/11/14 08/18/19 History Tamsulosin HCl [Flomax] 0.8 mg PO DAILY 04/11/14 08/18/19 History Allopurinol [Zyloprim] 300 mg PO DAILY 03/03/16 08/18/19 History Carvedilol [Coreg] 25 mg PO BID 04/25/18 08/18/19 History Lisinopril [Zestril] 20 mg PO DAILY 04/25/18 08/18/19 History Magnesium Oxide 400 mg PO DAILY 04/25/18 08/18/19 History Metolazone [Zaroxolyn] 5 mg PO DAILY 04/25/18 08/18/19 History Naproxen 500 mg PO BID 04/25/18 08/18/19 History Potassium Chloride 20 meq PO BID 04/25/18 08/18/19 History Warfarin [Coumadin] 7.5 mg PO DAILY 04/25/18 08/18/19 History Digoxin [Lanoxin] 125 mcg PO AC-SUPPER 06/09/18 08/18/19 History Furosemide [Lasix] 40 mg PO BID 08/18/19 08/19/19 History Triamcinolone 0.1% Cream [Kenalog 1 applicatio TOPICAL BID PRN 08/18/19 08/18/19 History 0.1% Cream] hydrALAZINE HCL [Apresoline] 100 mg PO BID 08/18/19 08/18/19 History Allergies Allergy/AdvReac Type Severity Reaction Status Date / Time No Known Allergies Allergy Verified 08/18/19 16:20 Physical Exam Vitals: Vital Signs Temp Pulse Pulse Resp BP BP Pulse Ox 08/19/19 08:00 98.2 F 67 18 173/94 95 08/19/19 04:00 97.7 F 70 18 172/90 95 08/19/19 00:00 97.6 F 83 20 146/76 91 L 08/18/19 20:00 97.7 F 90 20 189/94 93 L 08/18/19 18:30 58 L 16 179/101 93 L 08/18/19 18:00 88 18 165/95 90 L 08/18/19 17:48 16 95 08/18/19 17:40 70 165/95 95 08/18/19 17:30 55 L 175/102 90 L 08/18/19 17:10 55 L 175/102 89 L 08/18/19 16:16 97.8 F 81 20 165/107 89 L Intake and Output 08/18/19 08/19/19 08/19/19 22:59 06:59 14:59 Intake Total 240 Output Total 800 2425 Balance -800 -2185 Intake: Oral 240 Output: Urine 800 2425 Other: Weight 120.656 kg 113.3 kg PHYSICAL EXAMINATION: GENERAL: The patient is alert and oriented x3, not in any acute distress. Well developed, well nourished. HEENT: Pupils are round and equally reacting to light. EOMI. No scleral icterus. No conjunctival pallor. Normocephalic, atraumatic. No pharyngeal erythema. No thyromegaly. CARDIOVASCULAR: S1 and S2 present. No murmurs, rubs, or gallops. PULMONARY: Chest is clear to auscultation, no wheezing or crackles. ABDOMEN: Soft, nontender, nondistended, normoactive bowel sounds. No palpable organomegaly. MUSCULOSKELETAL: No joint swelling or deformity. EXTREMITIES: No cyanosis, clubbing,marital pedal edema with venostasis ulcers does not appear to have cellulitis at this NEUROLOGICAL: Gross neurological examination did not reveal any focal deficits. SKIN: No rashes. Results CBC & Chem 7: 08/18/19 16:41 08/18/19 16:41 Labs: Abnormal Lab Results - Last 24 Hours (Table) 08/18/19 08/18/19 08/18/19 Range/Units 16:41 16:41 16:41 WBC 3.1 L (3.8-10.6) k/uL RBC 4.19 L (4.30-5.90) m/uL Hgb 12.1 L (13.0-17.5) gm/dL Hct 38.6 L (39.0-53.0) % RDW 16.8 H (11.5-15.5) % Plt Count 127 L (150-450) k/uL Lymphocytes # 0.5 L (1.0-4.8) k/uL PT 13.2 H (9.0-12.0) sec INR 1.3 H (<1.2) Potassium 3.4 L (3.5-5.1) mmol/L Carbon Dioxide 35 H (22-30) mmol/L BUN 33 H (9-20) mg/dL Glucose 114 H (74-99) mg/dL Calcium 8.3 L (8.4-10.2) mg/dL Total Bilirubin 2.2 H (0.2-1.3) mg/dL Alkaline Phosphatase 172 H (38-126) U/L Troponin I (0.000-0.034) ng/mL 08/19/19 08/19/19 Range/Units 04:42 10:19 WBC (3.8-10.6) k/uL RBC (4.30-5.90) m/uL Hgb (13.0-17.5) gm/dL Hct (39.0-53.0) % RDW (11.5-15.5) % Plt Count (150-450) k/uL Lymphocytes # (1.0-4.8) k/uL PT 13.9 H (9.0-12.0) sec INR 1.4 H (<1.2) Potassium (3.5-5.1) mmol/L Carbon Dioxide (22-30) mmol/L BUN (9-20) mg/dL Glucose (74-99) mg/dL Calcium (8.4-10.2) mg/dL Total Bilirubin (0.2-1.3) mg/dL Alkaline Phosphatase (38-126) U/L Troponin I 0.036 H* (0.000-0.034) ng/mL Thrombosis Risk Factor Assmnt - Choose All That Apply Each Factor Represents 1 point: Abnormal pulmonary function (COPD) Each Risk Factor Represents 2 Points: Age 61-74 years Thrombosis Risk Factor Assessment Total Risk Factor Score: 3 Thrombosis Risk Factor Assessment Level: Moderate Risk Assessment and Plan Plan: -shortness of breath the symptoms resolved not sure why he patient is still requiring [facility] and on the arms and CPAP will saturate okay. Clinically my suspicion of pneumonia is low but I'll leave the duration of antibiotics to infectious disease patient did receive antibiotics as today clinically does not appear to be in heart failure exacerbation as well patient will be resumed on home dose of Lasix patient was given a dose of IV Lasix at in the ER.C, can use to be short of breath will obtain a CT of the chest to rule out any PE or pneumonia -congestive heart failure chronic systolicdysfunction EF of around 30-35% not in acute exacerbation at this time patient was resumed on home medications atrial fibrillation on Coumadin. patient's Coumadin will be resumed -COPD without any significant exacerbation patient will be started on inhaled steroids and inhalational treatments patient did smoke in the past years ago -sleep apnea uses CPAP machine at home next and-benign prostatic P next and heparin hypertension -peripheral vascular disease -bilateral venous stasis ulcerations, wound care and infectious disease will be consulted for wound care.
[2019-08-19 11:18] VITALS: BMI 33.8
[2019-08-19] MEDS: IPRATROPIUM-ALBUTEROL 3 ML NEB INHALATION SCH ×3 (12:30→20:29)
--- NOTE | 2019-08-19 14:02 | P.CNPUL ---
History of Present Illness Consult date: 08/19/19 Reason for consult: dyspnea History of present illness: A 69-year-old male patient presented to the ED because of 4 days worth of increased shortness of breath. The patient is known to me from the sleep center. His obstructive sleep apnea with an AHI of 36 maintained on CPAP. Also has history of CHF with systolic heart failure and depressed ventricular ejection fraction in the order of 30-35%. He also suffers from chronic atrial fibrillation and hypertension and gout. The patient denies having any fever. He did have some increased lower extremity edema. His chest x-ray showed increased pulmonary vessel markings and some cardiomegaly. The blood work showed a white second of 3.1, a serum bicarbonate was 35 with a BUN of 33 and a creatinine of 1.1. INR was subtherapeutic at 1.4. The patient takes warfarin at home for long-term anticoagulation. The proBNP level was 2740. First set of troponin was at 0.03 and a second set was 0.036. The patient's influenza screen was negative. Digoxin level was at 0.6. Review of Systems Constitutional: Reports weakness, Reports weight gain Eyes: denies as per HPI, denies blurred vision, denies bulging eye, denies decreased vision, denies diplopia, denies discharge, denies dry eye, denies irritation, denies itching, denies pain, denies photophobia, denies loss of peripheral vision, denies loss of vision, denies tunnel vision/blind spots Ears: deny: decreased hearing, ear discharge, earache, tinnitus Ears, nose, mouth and throat: Denies headache, Denies sore throat Breasts: absent: as per HPI, gynecomastia Cardiovascular: Reports decreased exercise tolerance, Reports dyspnea on exertion, Reports edema, Reports irregular heart beat, Reports orthopnea, Reports shortness of breath Respiratory: Reports dyspnea, Reports home oxygen, Reports snoring Gastrointestinal: Reports as per HPI Genitourinary: Reports nocturia Musculoskeletal: Reports as per HPI, Reports gait dysfunction, Reports limitation of motion, Reports muscle weakness Musculoskeletal: bilateral: ankle swelling, absent: ankle pain, ankle stiffness Integumentary: Reports wounds, Denies pruritus, Denies rash Neurological: Reports as per HPI, Reports gait dysfunction Psychiatric: Reports hypersomnia, Reports sleep disturbances Endocrine: Reports fatigue Hematologic/Lymphatic: Reports as per HPI Allergic/Immunologic: Reports as per HPI Past Medical History Past Medical History: Atrial Fibrillation, Heart Failure, COPD, Hypertension, Osteoarthritis (OA), Pneumonia, Prostate Disorder, Sleep Apnea/CPAP/BIPAP, Vascular Disorder Additional Past Medical History / Comment(s): HANDS TREMOR AND DIFFICULTY GRA SPING GLASS., VARICOSE VEINS, SWELLING IN LOWER LEGS AND FEET, HX BRONCHITIS, GOUT, SINUS PROBLEMS AT TIMES., STATES SEEN IN PAST FOR DECREASED KIDNEY FUNCTION.,STATES SORE ON LEFT LOWER LEG-ABOVE ANKLE THAT IS DRAINING ., USES WALKER TO AMBULATE., SOME NUMBNESS toña LEG., PAST HX OF NON-HEALING SORES. History of Any Multi-Drug Resistant Organisms: MRSA Date of last positivie culture/infection: 08/30/12 MDRO Source:: LEG(not sure which) Past Surgical History: Heart Catheterization Additional Past Surgical History / Comment(s): CYST AND PARTIAL JAW REMOVED/SCREWS IN PLACE, ORAL SX AGE 8 TO BRING TEETH DOWN, BRONCHOSCOPY Past Anesthesia/Blood Transfusion Reactions: Previous Problems w/ Anesthesia Additional Past Anesthesia/Blood Transfusion Reaction / Comment(s): STATED DURING BRONCH STOPPED BREATHING, (brochoscopy done at [facility]-record on chart) Past Psychological History: Anxiety Smoking Status: Former smoker Past Alcohol Use History: None Reported Additional Past Alcohol Use History / Comment(s): STATES HE SMOKED CIGARS IN HIS 20'S Past Drug Use History: None Reported - Past Family History Father Family Medical History: Dementia Additional Family Medical History / Comment(s): MACULAR DEGENERATION Mother Family Medical History: Diabetes Mellitus Additional Family Medical History / Comment(s): ANEURYSMS, CATARACTS. Medications and Allergies Home Medications Medication Instructions Recorded Confirmed Type Isosorbide Mononitrate ER [Imdur] 30 mg PO DAILY 04/11/14 08/18/19 History Tamsulosin HCl [Flomax] 0.8 mg PO DAILY 04/11/14 08/18/19 History Allopurinol [Zyloprim] 300 mg PO DAILY 03/03/16 08/18/19 History Carvedilol [Coreg] 25 mg PO BID 04/25/18 08/18/19 History Lisinopril [Zestril] 20 mg PO DAILY 04/25/18 08/18/19 History Magnesium Oxide 400 mg PO DAILY 04/25/18 08/18/19 History Metolazone [Zaroxolyn] 5 mg PO DAILY 04/25/18 08/18/19 History Naproxen 500 mg PO BID 04/25/18 08/18/19 History Potassium Chloride 20 meq PO BID 04/25/18 08/18/19 History Warfarin [Coumadin] 7.5 mg PO DAILY 04/25/18 08/18/19 History Digoxin [Lanoxin] 125 mcg PO AC-SUPPER 06/09/18 08/18/19 History Furosemide [Lasix] 40 mg PO BID 08/18/19 08/19/19 History Triamcinolone 0.1% Cream [Kenalog 1 applicatio TOPICAL BID PRN 08/18/19 08/18/19 History 0.1% Cream] hydrALAZINE HCL [Apresoline] 100 mg PO BID 08/18/19 08/18/19 History Allergies Allergy/AdvReac Type Severity Reaction Status Date / Time No Known Allergies Allergy Verified 08/18/19 16:20 Physical Exam Vitals: Vital Signs Temp Pulse Pulse Resp BP BP Pulse Ox 08/19/19 12:42 66 08/19/19 12:33 60 08/19/19 12:00 97.4 F L 67 20 142/81 96 08/19/19 08:00 98.2 F 67 18 173/94 95 08/19/19 04:00 97.7 F 70 18 172/90 95 08/19/19 00:00 97.6 F 83 20 146/76 91 L 08/18/19 20:00 97.7 F 90 20 189/94 93 L 08/18/19 18:30 58 L 16 179/101 93 L 08/18/19 18:00 88 18 165/95 90 L 08/18/19 17:48 16 95 08/18/19 17:40 70 165/95 95 08/18/19 17:30 55 L 175/102 90 L 08/18/19 17:10 55 L 175/102 89 L 08/18/19 16:16 97.8 F 81 20 165/107 89 L Intake and Output 08/18/19 08/19/19 08/19/19 22:59 06:59 14:59 Intake Total 240 50 Output Total 800 0175 Balance -800 2184 50 Intake: Intake, IV Titration 50 Amount cefTRIAXone 1 gm In 50 Sodium Chloride 0.9% 50 ml @ 100 mls/hr IVPB ONCE STA Rx#:[id number] Oral 240 Output: Urine 800 2425 Other: Weight 120.656 kg 113.3 kg 113.3 kg Gen. appearance, comfortable likely distress Head exam was generally normal. There was no scleral icterus or corneal arcus. Mucous membranes were moist. Neck was supple and without jugular venous distension, thyromegaly, or carotid bruits. Carotids were easily palpable bilaterally. There was no adenopathy. Lungs sounds are diminished bilaterally. The breath sounds are quite diminished in lung bases. There are some crackles. There is also some few expiratory wheezes upon forceful exhalation. Heart sounds are irregular, distant, positive S1 and S2 without any significant murmurs appreciated. Abdominal exam revealed normal bowel sounds. The abdomen was soft, non-tender, and without masses, organomegaly, or appreciable enlargement of the abdominal aorta. Extremities are swollen and there is evidence of chronic venous stasis lower extremities bilaterally along with weeping ulcers mainly left lower extremity that has been dressed appropriately and the patient is being seen at the wound center. The patient is less 1 pitting edema. Pulses are diminished in 4 extremities. Neurologically awake and alert and there is no focal neurological deficits. Results - Laboratory Findings CBC and BMP: 08/18/19 16:41 08/18/19 16:41 PT/INR, D-dimer PT 13.9 sec (9.0-12.0) H 08/19/19 10:19 INR 1.4 (<1.2) H 08/19/19 10:19 Abnormal lab findings: Abnormal Labs 08/18/19 08/18/19 08/18/19 16:41 16:41 16:41 WBC 3.1 L RBC 4.19 L Hgb 12.1 L Hct 38.6 L RDW 16.8 H Plt Count 127 L Lymphocytes # 0.5 L PT 13.2 H INR 1.3 H Potassium 3.4 L Carbon Dioxide 35 H BUN 33 H Glucose 114 H Calcium 8.3 L Total Bilirubin 2.2 H Alkaline Phosphatase 172 H Troponin I 08/19/19 08/19/19 04:42 10:19 WBC RBC Hgb Hct RDW Plt Count Lymphocytes # PT 13.9 H INR 1.4 H Potassium Carbon Dioxide BUN Glucose Calcium Total Bilirubin Alkaline Phosphatase Troponin I 0.036 H* - Diagnostic Findings Chest x-ray: image reviewed Assessment and Plan Plan: 1 acute on chronic shortness of breath. The patient reports worsening shortness of breath. He does have some cough and congestion. Nevertheless, there is an underlying CHF which is exacerbated also as the patient has increased edema lower extremities, elevated proBNP level in addition to a chest x-ray showing cardiomegaly and increase in pulmonary vascular markings. He has an ejection fraction of 3035%. Currently, he is on a combination of diuretics and is producing adequate amount of urine output. Golden catheter is in place. There is adequate diuresis on urination. 2 CHF with ejection fraction of 30-35% 3 chronic atrial fibrillation 4 COPD 5 chronic lower extremity edema and chronic venous stasis along with chronic wounds in the lower extremities being managed the wound center 6 obstructive sleep apnea severe with an AHI of 36 currently on CPAP at a pressure of 9 along with oxygen overnight 7 moderate degree of pulmonary hypertension along with biventricular enlargement, moderate concentric left ventricular hypertrophy along with an ejection fraction of 3035% 8 BPH currently has a Golden catheter in place 9 difficult mobility and the patient's getting progressive worsening exercise capacity and is moving around without of a walker 10 gout 11 ex-smoker and the patient quit smoking. His back and he used to smoke cigars. He quit smoking 2014 12 osteoarthritis 13 varicose veins involving the lower extremities Plan Continue diuretics. The patient is diuresing well on oral diuretics including a combination of Zaroxolyn and Lasix Continue DuoNeb about treatments around the clock Lower extremity wound care Anticoagulation with warfarin and the patient has been given 7.5 mg of Coumadin daily basis with close monitoring of PT/INR. Allow the patient to use his CPAP machine from home with a pressure of 19 cm with 3 L of oxygen by nasal cannula [facility]
[2019-08-19] MEDS: DIGOXIN 125 MCG TAB PO SCH (17:40)
[2019-08-19] MEDS: WARFARIN 7.5 MG TAB PO SCH (17:40)
[2019-08-19] MEDS: BUDESONIDE 0.5 MG/2 ML NEBU INHALATION SCH (20:29)
--- NOTE | 2019-08-19 22:19 | P.CONS ---
History of Present Illness - Reason for Consult Consult date: 08/19/19 Bilateral lower extremity wounds Requesting physician: Radha Pyle - Chief Complaint Increasing shortness of breath x few days - History of Present Illness Patient is a 69-year-old male with a past medical history significant for congestive heart failure in this patient who also have a history of bilateral lower extremity venous stasis ulcers which are currently being managed at the [facility] wound care granger with weekly dressing changes however the patient not sure exactly the type of dressing being applied, patient is presented to hospital with increasing shortness of breath and apparently the patient did have a chest x-ray done at the PCP with concern for possible fluid overload he has been encouraged to quit hospital, patient currently denies having any fever rigors or chills, denies significant cough or sputum production, no nausea no vomiting no bone pain patient did have chronic swelling of the lower extremity is some superficial ulceration but denies any pain to the leg and currently no purulent drainage or significant redness patient presented to hospital has been afebrile his white count has been normal patient is currkyle ntly being treated for his underlying Fluid overload state I was asked to see the patient regarding local wound care Review of Systems Positive point has been mentioned in the HPI rest of the systems are negative Past Medical History Past Medical History: Atrial Fibrillation, Heart Failure, COPD, Hypertension, Osteoarthritis (OA), Pneumonia, Prostate Disorder, Sleep Apnea/CPAP/BIPAP, Vascular Disorder Additional Past Medical History / Comment(s): HANDS TREMOR AND DIFFICULTY GRASPING GLASS., VARICOSE VEINS, SWELLING IN LOWER LEGS AND FEET, HX BRONCHITIS, GOUT, SINUS PROBLEMS AT TIMES., STATES SEEN IN PAST FOR DECREASED KIDNEY FUNCTION.,STATES SORE ON LEFT LOWER LEG-ABOVE ANKLE THAT IS DRAINING ., USES WALKER TO AMBULATE., SOME NUMBNESS toña LEG., PAST HX OF NON-HEALING SORES. History of Any Multi-Drug Resistant Organisms: MRSA Year Discovered:: 08/30/12 MDRO Source:: LEG(not sure which) Past Surgical History: Heart Catheterization Additional Past Surgical History / Comment(s): CYST AND PARTIAL JAW REMOVED/SCREWS IN PLACE, ORAL SX AGE 8 TO BRING TEETH DOWN, BRONCHOSCOPY Past Anesthesia/Blood Transfusion Reactions: Previous Problems w/ Anesthesia Additional Past Anesthesia/Blood Transfusion Reaction / Comm: STATED DURING BRONCH STOPPED BREATHING, (brochoscopy done at [facility]-record on chart) Past Psychological History: Anxiety Smoking Status: Former smoker Past Alcohol Use History: None Reported Additional Past Alcohol Use History / Comment(s): STATES HE SMOKED CIGARS IN HIS 20'S Past Drug Use History: None Reported - Past Family History Father Family Medical History: Dementia Additional Family Medical History / Comment(s): MACULAR DEGENERATION Mother Family Medical History: Diabetes Mellitus Additional Family Medical History / Comment(s): ANEURYSMS, CATARACTS. Medications and Allergies Home Medications Medication Instructions Recorded Confirmed Type Isosorbide Mononitrate ER [Imdur] 30 mg PO DAILY 04/11/14 08/18/19 History Tamsulosin HCl [Flomax] 0.8 mg PO DAILY 04/11/14 08/18/19 History Allopurinol [Zyloprim] 300 mg PO DAILY 03/03/16 08/18/19 History Carvedilol [Coreg] 25 mg PO BID 04/25/18 08/18/19 History Lisinopril [Zestril] 20 mg PO DAILY 04/25/18 08/18/19 History Magnesium Oxide 400 mg PO DAILY 04/25/18 08/18/19 History Metolazone [Zaroxolyn] 5 mg PO DAILY 04/25/18 08/18/19 History Naproxen 500 mg PO BID 04/25/18 08/18/19 History Potassium Chloride 20 meq PO BID 04/25/18 08/18/19 History Warfarin [Coumadin] 7.5 mg PO DAILY 04/25/18 08/18/19 History Digoxin [Lanoxin] 125 mcg PO AC-SUPPER 06/09/18 08/18/19 History Furosemide [Lasix] 40 mg PO BID 08/18/19 08/19/19 History Triamcinolone 0.1% Cream [Kenalog 1 applicatio TOPICAL BID PRN 08/18/19 08/18/19 History 0.1% Cream] hydrALAZINE HCL [Apresoline] 100 mg PO BID 08/18/19 08/18/19 History Allergies Allergy/AdvReac Type Severity Reaction Status Date / Time No Known Allergies Allergy Verified 08/18/19 16:20 Physical Exam Vitals: Vital Signs Temp Pulse Pulse Resp BP Pulse Ox 08/19/19 20:42 68 08/19/19 20:29 68 08/19/19 20:00 97.6 F 70 18 161/87 97 08/19/19 16:31 72 08/19/19 16:19 72 08/19/19 16:00 97.5 F L 60 18 152/90 92 L 08/19/19 12:42 66 08/19/19 12:33 60 08/19/19 12:00 97.4 F L 67 20 142/81 96 08/19/19 08:00 98.2 F 67 18 173/94 95 08/19/19 04:00 97.7 F 70 18 172/90 95 08/19/19 00:00 97.6 F 83 20 146/76 91 L Intake and Output 08/19/19 08/19/19 08/19/19 06:59 14:59 22:59 Intake Total 240 530 240 Output Total 2425 1800 2550 Balance -7016 -9695 -9688 Intake: Intake, IV Titration 50 Amount cefTRIAXone 1 gm In 50 Sodium Chloride 0.9% 50 ml @ 100 mls/hr IVPB ONCE STA Rx#:[id number] Oral 240 480 240 Output: Urine 2425 1800 2550 Other: Weight 113.3 kg 113.3 kg GENERAL DESCRIPTION: An elderly male up in the chair, no distress. No tachypnea or accessory muscle of respiration use. HEENT: Shows Pallor , no scleral icterus. Oral mucous membrane is dry. No pharyngeal erythema or thrush NECK: Trachea central, no thyromegaly. LUNGS: Unlabored breathing. Decreased breath sound the bases No wheeze or crackle. HEART: S1, S2, regular rate and rhythm. No loud murmur ABDOMEN: Soft, no tenderness , guarding or rigidity, no organomegaly EXTREMITIES: Bilateral lower extremity with some superficial ulceration is no slough tissue no redness or any foul-smelling drainage SKIN: No rash, no masses palpable. NEUROLOGICAL: The patient is awake, alert, oriented x3, mood and affect normal. Results CBC & Chem 7: 08/18/19 16:41 08/18/19 16:41 Labs: Abnormal Lab Results - Last 24 Hours (Table) 08/19/19 08/19/19 Range/Units 04:42 10:19 PT 13.9 H (9.0-12.0) sec INR 1.4 H (<1.2) Troponin I 0.036 H* (0.000-0.034) ng/mL Microbiology - Last 24 Hours (Table) 08/18/19 17:43 Blood Culture - Preliminary Blood No Growth after 24 hours Assessment and Plan Assessment: 1-patient with bilateral lower extremity venous stasis ulcer in this patient admitted to the hospital with fluid overload currently with no evidence of any secondary cellulitis in this patient currently not running a fever and did not have any elevated white count recommend local wound care only (1) Venous stasis ulcers of both lower extremities Current Visit: Yes Status: Acute Code(s): I83.019 - VARICOSE VEINS OF RIGHT LOWER EXTREMITY W ULCER OF UNSP SITE; I83.029 - VARICOSE VEINS OF LEFT LOWER EXTREMITY W ULCER OF UNSP SITE; L97.919 - NON-PRS CHRONIC ULC UNSP PRT OF R LOW LEG W UNSP SEVERITY; L97.929 - NON-PRS CHRONIC ULC UNSP PRT OF L LOW LEG W UNSP SEVERITY SNOMED Code(s): 640991829 Plan: 1-Aquacel silver dressing to the open wound followed by Kahlil wrap from just above the toe to below the knee to be changed every 48 hour 2-no need for systemic antibiotic therapy We will follow on clinical condition and cultures to further adjust medication if needed Thank you for this consultation will follow this patient with you Time with Patient: Greater than 30
[2019-08-20 06:51] LABS: Anisocytosis Slight; HCT 41.6 % (39.0-53.0); HGB 13.1 gm/dL (13.0-17.5); Hypochromasia Slight; MCH 28.6 pg (25.0-35.0); MCHC 31.4 g/dL (31.0-37.0); MCV 91.1 fL (80.0-100.0); Mean Platelet Volume 8.2; Platelet Count 170 k/uL (150-450); RBC 4.57 m/uL (4.30-5.90); RDW 16.3 % (11.5-15.5); WBC 5.8 k/uL (3.8-10.6)
[2019-08-20 07:00] LABS: Calcium 8.7 mg/dL (8.4-10.2); Potassium 3.2 mmol/L (3.5-5.1)
[2019-08-20 07:03] LABS: INR 1.3 (<1.2); Prothrombin Time 13.2 sec (9.0-12.0)
--- NOTE | 2019-08-20 08:10 | P.PN ---
Subjective Progress Note Date: 08/20/19 Principal diagnosis: Acute on chronic systolic congestive heart failure The patient is here essentially because of exacerbation of CHF. The patient has underlying history of atrial fibrillation. He is feeling much better after significant diuresis. No new voiding difficulties. Appetite is nominal. No significant chest pain or shortness of breath. Objective - Vital Signs Vital signs: Vital Signs Temp 97.8 F 08/20/19 03:58 Pulse 74 08/20/19 03:58 Resp 18 08/20/19 03:58 BP 130/73 08/20/19 03:58 Pulse Ox 96 08/20/19 03:58 Intake & Output 08/19/19 08/20/19 08/20/19 18:59 06:59 18:59 Intake Total 770 Output Total 3900 450 Balance -3130 -450 Weight 113.3 kg 109.7 kg Intake: Intake, IV Titration 50 Amount cefTRIAXone 1 gm In 50 Sodium Chloride 0.9% 50 ml @ 100 mls/hr IVPB ONCE STA Rx#:[id number] Oral 720 Output: Urine 3900 450 Other: # Voids 1,000 - Constitutional General appearance: Present: obese - EENT Eyes: Absent: abnormal pupil - Neck Neck: Absent: lymphadenopathy - Respiratory Respiratory: bilateral: CTA - Cardiovascular Rhythm: regular Heart sounds: normal: S1, S2 Abnormal Heart Sounds: Absent: S3 Gallop - Gastrointestinal General gastrointestinal: Present: soft. Absent: tenderness - Psychiatric Psychiatric: Present: A&O x's 3 - Labs CBC & Chem 7: 08/20/19 05:15 08/20/19 05:15 Labs: Abnormal Lab Results - Last 24 Hours (Table) 08/19/19 08/20/19 08/20/19 Range/Units 10:19 05:15 05:15 RDW 16.3 H (11.5-15.5) % PT 13.9 H 13.2 H (9.0-12.0) sec INR 1.4 H 1.3 H (<1.2) Potassium (3.5-5.1) mmol/L Chloride (98-107) mmol/L Carbon Dioxide (22-30) mmol/L BUN (9-20) mg/dL Creatinine (0.66-1.25) mg/dL Glucose (74-99) mg/dL 08/20/19 Range/Units 05:15 RDW (11.5-15.5) % PT (9.0-12.0) sec INR (<1.2) Potassium 3.2 L (3.5-5.1) mmol/L Chloride 86 L (98-107) mmol/L Carbon Dioxide 42 H* (22-30) mmol/L BUN 38 H (9-20) mg/dL Creatinine 1.38 H (0.66-1.25) mg/dL Glucose 100 H (74-99) mg/dL Microbiology - Last 24 Hours (Table) 08/18/19 17:43 Blood Culture - Preliminary Blood No Growth after 24 hours Assessment and Plan (1) Atrial fibrillation Current Visit: Yes Status: Acute Code(s): I48.91 - UNSPECIFIED ATRIAL FIBRILLATION SNOMED Code(s): 87186923 (2) CHF (congestive heart failure) Current Visit: Yes Status: Acute Code(s): I50.9 - HEART FAILURE, UNSPECIFIED SNOMED Code(s): 36719231 (3) Edema extremities Current Visit: No Status: Acute Code(s): R60.0 - LOCALIZED EDEMA SNOMED Code(s): 843327931 (4) Hypoxia Current Visit: No Status: Acute Code(s): R09.02 - HYPOXEMIA SNOMED Code(s): 173971835 (5) NICM (nonischemic cardiomyopathy) Current Visit: No Status: Acute Code(s): I42.8 - OTHER CARDIOMYOPATHIES SNOMED Code(s): 20055218 Plan: Continue diuresis. Check CMP in a.m. Appreciate cardiology input. Prognosis is improving significantly
[2019-08-20] MEDS: IPRATROPIUM-ALBUTEROL 3 ML NEB INHALATION SCH ×4 (08:48→21:36)
[2019-08-20] MEDS: BUDESONIDE 0.5 MG/2 ML NEBU INHALATION SCH ×2 (08:48→21:36)
[2019-08-20] MEDS: LISINOPRIL 20 MG TAB PO SCH (08:58)
[2019-08-20] MEDS: ISOSORBIDE MONONITRATE ER 30 MG TAB.ER.24H PO SCH (08:58)
[2019-08-20] MEDS: CARVEDILOL 12.5 MG TAB PO SCH ×2 (08:58→19:57)
[2019-08-20] MEDS: ALLOPURINOL 300 MG TAB PO SCH (08:58)
[2019-08-20] MEDS: METOLAZONE 5 MG TAB PO SCH (08:58)
[2019-08-20] MEDS: hydrALAZINE HCL 50 MG TAB PO SCH ×2 (08:58→19:57)
[2019-08-20] MEDS: POTASSIUM CHLORIDE ER 20 MEQ TAB.ER PO SCH ×2 (08:58→19:58)
[2019-08-20] MEDS: TAMSULOSIN 0.4 MG CAP.ER.24H PO SCH (08:58)
[2019-08-20] MEDS: FUROSEMIDE 80 MG TAB PO SCH ×2 (08:58→19:58)
--- NOTE | 2019-08-20 10:37 | P.PN ---
Subjective Progress Note Date: 08/20/19 On O2 2019 patient seen in follow-up on selective care unit, he is awake and alert, in no acute distress, denies any worsening dyspnea, pulse ox is 94% on 3 L, afebrile, hemodynamically stable, patient has been ambulating to the bathroom and back to his recliner with the help of a walker, tolerates activity fairly well, no complaints of chest pain. Maintaining negative fluid balance, patient remains on his home dose Lasix 80 mg twice daily in addition to Zaroxolyn and he is in -2310 mL fluid balance over the last 24 hours. Today's labs patient is developing fluid contraction alkalosis and worsening renal function, with CO2 of 42, BUN of 38 and creatinine of 1.38. Lung sounds reveal some scattered expiratory wheezing, but no rhonchi, occasional cough with no phlegm production. INR today is 1.3, no leukocytosis, white blood cell count of 5.8, hemoglobin 13.1 Objective - Vital Signs Vital signs: Vital Signs Temp 97.5 F L 08/20/19 07:30 Pulse 80 08/20/19 09:03 Resp 22 08/20/19 07:30 BP 139/70 08/20/19 07:30 Pulse Ox 94 L 08/20/19 08:51 Intake & Output 08/19/19 08/20/19 08/20/19 18:59 06:59 18:59 Intake Total 770 240 Output Total 3900 450 900 Balance -3130 -450 -660 Weight 113.3 kg 109.7 kg Intake: Intake, IV Titration 50 Amount cefTRIAXone 1 gm In 50 Sodium Chloride 0.9% 50 ml @ 100 mls/hr IVPB ONCE STA Rx#:[id number] Oral 720 240 Output: Urine 3900 450 900 Condom 900 Other: # Voids 1,000 - Exam GENERAL EXAM: Alert, very pleasant, 69-year-old white male, on 3 L of oxygen with a pulse ox of 94% comfortable in no apparent distress. HEAD: Normocephalic/atraumatic. EYES: Normal reaction of pupils, equal size. Conjunctiva pink, sclera white. NOSE: Clear with pink turbinates. THROAT: No erythema or exudates. NECK: No masses, no JVD, no thyroid enlargement, no adenopathy. CHEST: No chest wall deformity. Symmetrical expansion. LUNGS: Equal air entry . Scattered expiratory wheezing, no rhonchi, no rales CVS: Regular rate and rhythm, normal S1 and S2, no gallops, no murmurs, no rubs ABDOMEN: Soft, nontender. No hepatosplenomegaly, normal bowel sounds, no guarding or rigidity. EXTREMITIES: No clubbing, no edema, no cyanosis, 2+ pulses and upper and lower extremities. Lower extremities are Kahlil wrapped MUSCULOSKELETAL: Muscle strength and tone normal. SPINE: No scoliosis or deformity SKIN: No rashes CENTRAL NERVOUS SYSTEM: Alert and oriented -3. No focal deficits, tone is normal in all 4 extremities. PSYCHIATRIC: Alert and oriented -3. Appropriate affect. Intact judgment and insight. - Labs CBC & Chem 7: 08/20/19 05:15 08/20/19 05:15 Labs: Abnormal Lab Results - Last 24 Hours (Table) 08/19/19 08/20/19 08/20/19 Range/Units 10:19 05:15 05:15 RDW 16.3 H (11.5-15.5) % PT 13.9 H 13.2 H (9.0-12.0) sec INR 1.4 H 1.3 H (<1.2) Potassium (3.5-5.1) mmol/L Chloride (98-107) mmol/L Carbon Dioxide (22-30) mmol/L BUN (9-20) mg/dL Creatinine (0.66-1.25) mg/dL Glucose (74-99) mg/dL 08/20/19 Range/Units 05:15 RDW (11.5-15.5) % PT (9.0-12.0) sec INR (<1.2) Potassium 3.2 L (3.5-5.1) mmol/L Chloride 86 L (98-107) mmol/L Carbon Dioxide 42 H* (22-30) mmol/L BUN 38 H (9-20) mg/dL Creatinine 1.38 H (0.66-1.25) mg/dL Glucose 100 H (74-99) mg/dL Microbiology - Last 24 Hours (Table) 08/18/19 17:43 Blood Culture - Preliminary Blood No Growth after 24 hours Assessment and Plan Plan: Assessment: 1 acute on chronic shortness of breath. The patient reports worsening shortness of breath. He does have some cough and congestion. Nevertheless, there is an underlying CHF which is exacerbated also as the patient has increased edema lower extremities, elevated proBNP level in addition to a chest x-ray showing cardiomegaly and increase in pulmonary vascular markings. He has an ejection fraction of 3035%. Currently, he is on a combination of diuretics and is produc ing adequate amount of urine output. Golden catheter is in place. There is adequate diuresis on urination. 2 CHF with ejection fraction of 30-35% 3 chronic atrial fibrillation 4 COPD 5 chronic lower extremity edema and chronic venous stasis along with chronic wounds in the lower extremities being managed the wound center 6 obstructive sleep apnea severe with an AHI of 36 currently on CPAP at a pr essure of 9 along with oxygen overnight 7 moderate degree of pulmonary hypertension along with biventricular enlargement, moderate concentric left ventricular hypertrophy along with an ejection fraction of 3035% 8 BPH currently has a Golden catheter in place 9 difficult mobility and the patient's getting progressive worsening exercise capacity and is moving around without of a walker 10 gout 11 ex-smoker and the patient quit smoking. His back and he used to smoke cigars. He quit smoking 2014 12 osteoarthritis 13 varicose veins involving the lower extremities 14 acute kidney injury due to diuretic therapy Plan: Continue current medical treatment, patient is developing acute kidney injury r elated to diuretic therapy, and volume contraction alkalosis, he has been in negative fluid balance, lower extremity edema has improved, we'll stop patient's Zaroxolyn, he remains on home dose Lasix 80 mg twice daily, cardiology is following, further diurretic and ACEI adjustments per cardiology. Encourage oral intake. Vitals signs are stable, no fever or chills. Repeat blood work in the morning, possible discharge planning for discharge home in the next 24 hours per attending physician I performed a history & physical examination of the patient and discussed their management with my nurse practitioner, Maria Luisa Bahena. I reviewed the nurse practitioner's note and agree with the documented findings and plan of care. Lung sounds are positive for scattered wheezes. The findings and the impression was discussed with the patient. I attest to the documentation by the nurse practitioner. Time with Patient: Less than 30
--- NOTE | 2019-08-20 14:29 | P.PN ---
Subjective Progress Note Date: 08/20/19 This is a 69-year-old gentleman with history of nonischemic cardiomyopathy, chronic atrial fibrillation, hypertension, COPD, who presented to the hospital with symptoms of shortness of breath. The patient has chronic leg edema as well as chronic stasis of both of his legs for which she was being followed at the wound center. He follows with Dr. Sheriff in the office on a regular basis. Chest x-ray was performed on arrival here, there appears to be an increased density over the left lower lobe behind the heart as compared with yesterday, suggestive of possible pneumonia. EKG shows atrial fibrillation with a controlled ventricular response. Blood pressure 146/70 with a heart rate in the 80s, afebrile. White blood cell count 3.1, hemoglobin 12.1, platelet count 127. Sodium 139, potassium 3.4, BUN 33, creatinine 1.1. Troponin went 026, 0.03, 0.03. BNP [id number]. Patient was seen and examined this morning sitting up in the chair at bedside. He does state overall that he feels significantly better than he did yesterday on presentation here. 08/20/2019 Patient was seen and examined today, awake and alert, breathing overall stable. Currently on oral Lasix, he is also getting Zaroxolyn daily. He is in a negative fluid balance. Let pressure 117/78 with a heart rate in the 70s, 96% on 2 L of oxygen. Blood cell count 5.8, hemoglobin 13.1, platelet count 170. Sodium 140, potassium 3.2, BUN 38 and creatinine 1.3. Zaroxolyn has been placed on hold. Objective - Vital Signs Vital signs: Vital Signs Temp 97.5 F L 08/20/19 12:00 Pulse 86 08/20/19 12:32 Resp 20 08/20/19 12:00 BP 117/78 08/20/19 12:00 Pulse Ox 96 08/20/19 12:00 Intake & Output 08/19/19 08/20/19 08/20/19 18:59 06:59 18:59 Intake Total 770 240 Output Total 3900 115 900 Balance -3130 -450 -660 Weight 113.3 kg 109.7 kg Intake: Intake, IV Titration 50 Amount cefTRIAXone 1 gm In 50 Sodium Chloride 0.9% 50 ml @ 100 mls/hr IVPB ONCE STA Rx#:[id number] Oral 720 240 Output: Urine 3900 450 900 Condom 900 Other: # Voids 1,000 - Exam HEAD: Normocephalic/atraumatic. EYES: Normal reaction of pupils, equal size. Conjunctiva pink, sclera white. NOSE: Clear with pink turbinates. THROAT: No erythema or exudates. NECK: No masses, no JVD, no thyroid enlargement, no adenopathy. CHEST: No chest wall deformity. Symmetrical expansion. LUNGS: Equal air entry . Scattered expiratory wheezing, no rhonchi, no rales CVS: Regular rate and rhythm, normal S1 and S2, no gallops, no murmurs, no rubs ABDOMEN: Soft, nontender. No hepatosplenomegaly, normal bowel sounds, no guarding or rigidity. EXTREMITIES: No clubbing, no edema, no cyanosis, 2+ pulses and upper and lower extremities. Lower extremities are Kahlil wrapped MUSCULOSKELETAL: Muscle strength and tone normal. SPINE: No scoliosis or deformity SKIN: No rashes CENTRAL NERVOUS SYSTEM: Alert and oriented -3. No focal deficits, tone is n ormal in all 4 extremities. PSYCHIATRIC: Alert and oriented -3. Appropriate affect. Intact judgment and insight. - Labs CBC & Chem 7: 08/20/19 05:15 08/20/19 05:15 Labs: Abnormal Lab Results - Last 24 Hours (Table) 08/20/19 08/20/19 08/20/19 Range/Units 05:15 05:15 05:15 RDW 16.3 H (11.5-15.5) % PT 13.2 H (9.0-12.0) sec INR 1.3 H (<1.2) Potassium 3.2 L (3.5-5.1) mmol/L Chloride 86 L (98-107) mmol/L Carbon Dioxide 42 H* (22-30) mmol/L BUN 38 H (9-20) mg/dL Creatinine 1.38 H (0.66-1.25) mg/dL Glucose 100 H (74-99) mg/dL Microbiology - Last 24 Hours (Table) 08/18/19 17:43 Blood Culture - Preliminary Blood No Growth after 24 hours Assessment and Plan Plan: Assessment and plan #1 symptoms of shortness of breath, no clear-cut evidence of CHF exacerbation at this time. There is evidence of a new infiltrate on the chest x-ray, patient states he was coughing up a yellow sputum initially, now it is white in color. #2 chronic persistent atrial fibrillation, rate under adequate control #3 nonischemic cardiomyopathy #4 bilateral lower leg cellulitis and chronic edema #5 hypokalemia #6 abnormality in troponin, not consistent with acute coronary syndrome with no significant rise and fall pattern #7 influenza A and B- Plan Zaroxolyn has been placed on hold today we will continue Lasix, check labs in the morning. DNP note has been reviewed, I agree with a documented findings and plan of care. Patient was seen and examined.
[2019-08-20] MEDS: WARFARIN 7.5 MG TAB PO SCH (17:28)
[2019-08-20] MEDS: DIGOXIN 125 MCG TAB PO SCH (17:28)
--- NOTE | 2019-08-21 04:54 | PN ---
PROGRESS NOTE DATE OF SERVICE: 08/20/2019 INTERVAL HISTORY: The patient is currently afebrile. Seems to be breathing more comfortably. The patient denies having any chest pain, shortness of breath or cough. No nausea, no vomiting. No abdominal pain. No pain in the neck. PHYSICAL EXAMINATION: Blood pressure 117/58 with a pulse of 80, temperature 97. He is 95% on 2 L nasal cannula. General description is an elderly male lying in bed in no distress. RESPIRATORY SYSTEM: Unlabored breathing, decreased breath sounds at the bases. No wheeze. HEART: S1, S2. Regular rate and rhythm. ABDOMEN: Soft, nontender. LEGS: Currently wrapped up. No obvious drainage on the dressing. LABS: Hemoglobin 13.1, white count 5.8, creatinine 1.3. Blood culture has been negative. DIAGNOSTIC IMPRESSION AND PLAN: Patient with bilateral lower extremity venous stasis ulcers with no evidence of any cellulitis. Recommend local wound care with dry Aquacel silver dressing and Kahlil wraps dressing changes. Continue with supportive care. MMODL / IJN: [id number] / CED
[2019-08-21 06:13] LABS: Anisocytosis Slight; HGB 14.5 gm/dL (13.0-17.5); MCH 29.7 pg (25.0-35.0); MCHC 32.3 g/dL (31.0-37.0); Mean Platelet Volume 8.2; Platelet Count 177 k/uL (150-450); RBC 4.89 m/uL (4.30-5.90); RDW 16.6 % (11.5-15.5); WBC 7.3 k/uL (3.8-10.6)
[2019-08-21 06:22] LABS: INR 1.5 (<1.2); Prothrombin Time 14.6 sec (9.0-12.0)
[2019-08-21 06:26] LABS: Albumin 3.9 g/dL (3.5-5.0); Calcium 8.4 mg/dL (8.4-10.2); Total Bilirubin 1.7 mg/dL (0.2-1.3); Total Protein 8.1 g/dL (6.3-8.2)
[2019-08-21 06:35] LABS: Potassium 2.7 mmol/L (3.5-5.1)
[2019-08-21] MEDS ORDERED: Potassium Replacement Protocol 1 EACH MISC MISCELLANE PRN ×2 (07:14→16:44)
[2019-08-21] MEDS: IPRATROPIUM-ALBUTEROL 3 ML NEB INHALATION SCH ×4 (07:32→20:32)
[2019-08-21] MEDS: BUDESONIDE 0.5 MG/2 ML NEBU INHALATION SCH ×2 (07:32→20:32)
[2019-08-21] MEDS: LISINOPRIL 20 MG TAB PO SCH (07:49)
[2019-08-21] MEDS: hydrALAZINE HCL 50 MG TAB PO SCH ×2 (07:49→21:43)
[2019-08-21] MEDS: POTASSIUM CHLORIDE ER 20 MEQ TAB.ER PO SCH ×7 (07:49→18:59)
[2019-08-21] MEDS: ALLOPURINOL 300 MG TAB PO SCH (07:50)
[2019-08-21] MEDS: CARVEDILOL 12.5 MG TAB PO SCH ×2 (07:50→21:44)
[2019-08-21] MEDS: TAMSULOSIN 0.4 MG CAP.ER.24H PO SCH (07:50)
[2019-08-21] MEDS: ISOSORBIDE MONONITRATE ER 30 MG TAB.ER.24H PO SCH (07:50)
[2019-08-21] MEDS: FUROSEMIDE 80 MG TAB PO SCH (07:50)
--- NOTE | 2019-08-21 09:27 | XR ---
EXAMINATION TYPE: XR chest 1V portable DATE OF EXAM: 08/21/2019 Comparison: 08/18/2019 Clinical History: 69-year-old male follow-up CHF Findings: Heart remains borderline enlarged. Mild interstitial/vascular prominence remains. Some residual patch y left greater than right bibasilar opacity. Overall aeration has improved from 08/18/2019. Impression: Borderline heart size with some residual interstitial prominence and some mild patchy left greater th an right bibasilar density. Overall aeration is improved from 08/18/2019. Correlate for some residual mild CHF changes.
--- NOTE | 2019-08-21 09:48 | P.PN ---
Subjective Progress Note Date: 08/21/19 On O2 2019 patient seen in follow-up on selective care unit, he is awake and alert, in no acute distress, denies any worsening dyspnea, pulse ox is 94% on 3 L, afebrile, hemodynamically stable, patient has been ambulating to the bathroom and back to his recliner with the help of a walker, tolerates activity fairly well, no complaints of chest pain. Maintaining negative fluid balance, patient remains on his home dose Lasix 80 mg twice daily in addition to Zaroxolyn and he is in -2310 mL fluid balance over the last 24 hours. Today's labs patient is developing fluid contraction alkalosis and worsening renal function, with CO2 of 42, BUN of 38 and creatinine of 1.38. Lung sounds reveal some scattered expiratory wheezing, but no rhonchi, occasional cough with no phlegm production. INR today is 1.3, no leukocytosis, white blood cell count of 5.8, hemoglobin 13.1 On O2 2019 patient seen in follow-up on selective care unit. His breathing is comfortable, no acute complaints, he is on 2 L of oxygen with a pulse ox of 100%, blood pressure is 149/97, patient is afebrile. On today's labs patient had further worsening of his renal profile with B1 up to 55 and creatinine is 1.83, potassium is 2.7, chloride is 83, CO2 is 40, and patient has extensively diuresed since admission and he is at least -10 kg since admission. Lower extremity edema has significantly improved, lung sounds reveal some end expiratory wheezing, no crackles. No fever or chills. Yesterday we held patient Zaroxolyn, and he continued on Lasix at 80 mg twice daily in addition to lisinopril 20 mg daily, case was discussed with cardiology and we will hold all of his diuretics and Kahlil inhibitors today and repeat blood work in the morning Objective - Vital Signs Vital signs: Vital Signs Temp 97.7 F 08/21/19 07:37 Pulse 84 08/21/19 07:45 Resp 18 08/21/19 07:37 BP 149/97 08/21/19 07:37 Pulse Ox 100 08/21/19 07:37 Intake & Output 08/20/19 08/21/19 08/21/19 18:59 06:59 18:59 Intake Total 462 480 Output Total 900 Balance -438 480 Weight 110.2 kg Intake: Oral 462 480 Output: Urine 900 Condom 900 Other: Voiding Method Toilet Toilet Toilet Diaper Diaper Diaper # Voids 2 3 - Exam GENERAL EXAM: Alert, very pleasant, 69-year-old white male, on 2 L of oxygen with a pulse ox of 100% comfortable in no apparent distress. HEAD: Normocephalic/atraumatic. EYES: Normal reaction of pupils, equal size. Conjunctiva pink, sclera white. NOSE: Clear with pink turbinates. THROAT: No erythema or exudates. NECK: No masses, no JVD, no thyroid enlargement, no adenopathy. CHEST: No chest wall deformity. Symmetrical expansion. LUNGS: Equal air entry . Scattered expiratory wheezing, no rhonchi, no rales CVS: Regular rate and rhythm, normal S1 and S2, no gallops, no murmurs, no rubs ABDOMEN: Soft, nontender. No hepatosplenomegaly, normal bowel sounds, no guarding or rigidity. EXTREMITIES: No clubbing, no edema, no cyanosis, 2+ pulses and upper and lower extremities. Lower extremities are Kahlil wrapped, there are changes associated with chronic venous stasis in bilateral lower extremities MUSCULOSKELETAL: Muscle strength and tone normal. SPINE: No scoliosis or deformity SKIN: No rashes CENTRAL NERVOUS SYSTEM: Alert and oriented -3. No focal deficits, tone is normal in all 4 extremities. PSYCHIATRIC: Alert and oriented -3. Appropriate affect. Intact judgment and insight. - Labs CBC & Chem 7: 08/21/19 05:27 08/21/19 05:27 Labs: Abnormal Lab Results - Last 24 Hours (Table) 08/21/19 08/21/19 08/21/19 Range/Units 05:27 05:27 05:27 RDW 16.6 H (11.5-15.5) % PT 14.6 H (9.0-12.0) sec INR 1.5 H (<1.2) Potassium 2.7 L* (3.5-5.1) mmol/L Chloride 83 L (98-107) mmol/L Carbon Dioxide 40 H (22-30) mmol/L BUN 55 H (9-20) mg/dL Creatinine 1.83 H (0.66-1.25) mg/dL Glucose 124 H (74-99) mg/dL Total Bilirubin 1.7 H (0.2-1.3) mg/dL Alkaline Phosphatase 163 H (38-126) U/L Microbiology - Last 24 Hours (Table) 08/18/19 17:43 Blood Culture - Preliminary Blood No Growth after 48 hours Assessment and Plan Plan: Assessment: 1 acute on chronic shortness of breath. The patient reports worsening shortness of breath. He does have some cough and congestion. Nevertheless, there is an underlying CHF which is exacerbated also as the patient has increased edema lower extremities, elevated proBNP level in addition to a chest x-ray showing cardiomegaly and increase in pulmonary vascular markings. He has an ejection fraction of 3035%. Currently, he is on a combination of diuretics and is producing adequate amount of urine output. Golden catheter is in place. There is adequate diuresis on urination. 2 CHF with ejection fraction of 30-35% 3 chronic atrial fibrillation 4 COPD 5 chronic lower extremity edema and chronic venous stasis along with chronic wounds in the lower extremities being managed the wound center 6 obstructive sleep apnea severe with an AHI of 36 currently on CPAP at a pressure of 9 along with oxygen overnight 7 moderate degree of pulmonary hypertension along with biventricular enlargement, moderate concentric left ventricular hypertrophy along with an ejection fraction of 3035% 8 BPH currently has a Golden catheter in place 9 difficult mobility and the patient's getting progressive worsening exercise capacity and is moving around without of a walker 10 gout 11 ex-smoker and the patient quit smoking. His back and he used to smoke cigars. He quit smoking 2014 12 osteoarthritis 13 varicose veins involving the lower extremities 14 acute kidney injury due to diuretic therapy and Kahlil inhibitors Plan: Breathing is stable, oxygenation is improving, vital signs are stable, however there has been further worsening of patient's renal profile, we'll place Lasix and Kahlil inhibitors on hold, repeat blood work in the morning. No fever or chills, blood cultures have been negative, continue nebulized bronchodilators, increase activity as tolerated, today's chest x-ray has been reviewed showing improved aeration bilaterally. We'll continue to follow. I performed a history & physical examination of the patient and discussed their management with my nurse practitioner, Maria Luisa Bahena. I reviewed the nurse practitioner's note and agree with the documented findings and plan of care. Lung sounds are positive for scattered wheezes. The findings and the impression was discussed with the patient. I attest to the documentation by the nurse practitioner. Time with Patient: Less than 30
--- NOTE | 2019-08-21 14:15 | P.PN ---
Subjective Progress Note Date: 08/21/19 This is a 69-year-old gentleman with history of nonischemic cardiomyopathy, chronic atrial fibrillation, hypertension, COPD, who presented to the hospital with symptoms of shortness of breath. The patient has chronic leg edema as well as chronic stasis of both of his legs for which she was being followed at the [facility]. He follows with Dr. Sheriff in the office on a regular basis. Chest x-ray was performed on arrival here, there appears to be an increased density over the left lower lobe behind the heart as compared with yesterday, suggestive of possible pneumonia. EKG shows atrial fibrillation with a controlled ventricular response. Blood pressure 146/70 with a heart rate in the 80s, afebrile. White blood cell count 3.1, hemoglobin 12.1, platelet count 127. Sodium 139, potassium 3.4, BUN 33, creatinine 1.1. Troponin went 026, 0.03, 0.03. BNP rubht1708. Patient was seen and examined this morning sitting up in the chair at bedside. He does state overall that he feels significantly better than he did yesterday on presentation here. 08/20/2019 Patient was seen and examined today, awake and alert, breathing overall stable. Currently on oral Lasix, he is also getting Zaroxolyn daily. He is in a negative fluid balance. Let pressure 117/78 with a heart rate in the 70s, 96% on 2 L of oxygen. Blood cell count 5.8, hemoglobin 13.1, platelet count 170. Sodium 140, potassium 3.2, BUN 38 and creatinine 1.3. Zaroxolyn has been placed on hold. 08/21/2019 Patient seen and examined this morning, sitting up in the chair at bedside. Overall he feels well. Did have some mild dizziness when he got up from the toilet walking back to his chair. Blood pressure 127/60 with a heart rate 90, 96% on 3 L of oxygen. White blood cell count 7.3, hemoglobin 14.5, platelet count 177. Sodium 137, potassium 2.7, BUN 55, creatinine 1.8. Objective - Vital Signs Vital signs: Vital Signs Temp 97.5 F L 08/21/19 12:00 Pulse 80 08/21/19 12:17 Resp 18 08/21/19 12:00 BP 127/67 08/21/19 12:00 Pulse Ox 96 08/21/19 12:00 Intake & Output 08/20/19 08/21/19 08/21/19 18:59 06:59 18:59 Intake Total 462 722 Output Total 900 Balance -438 722 Weight 110.2 kg Intake: Oral 462 722 Output: Urine 900 Condom 900 Other: Voiding Method Toilet Toilet Toilet Diaper Diaper Diaper # Voids 2 3 - Exam HEAD: Normocephalic/atraumatic. EYES: Normal reaction of pupils, equal size. Conjunctiva pink, sclera white. NOSE: Clear with pink turbinates. THROAT: No erythema or exudates. NECK: No masses, no JVD, no thyroid enlargement, no adenopathy. CHEST: No chest wall deformity. Symmetrical expansion. LUNGS: Equal air entry . Scattered expiratory wheezing, no rhonchi, no rales CVS: Regular rate and rhythm, normal S1 and S2, no gallops, no murmurs, no rubs ABDOMEN: Soft, nontender. No hepatosplenomegaly, normal bowel sounds, no guarding or rigidity. EXTREMITIES: No clubbing, no edema, no cyanosis, 2+ pulses and upper and lower extremities. Lower extremities are Kahlil wrapped MUSCULOSKELETAL: Muscle strength and tone normal. SPINE: No scoliosis or deformity SKIN: No rashes CENTRAL NERVOUS SYSTEM: Alert and oriented -3. No focal deficits, tone is normal in all 4 extremities. PSYCHIATRIC: Alert and oriented -3. Appropriate affect. Intact judgment and insight. - Labs CBC & Chem 7: 08/21/19 05:27 08/21/19 05:27 Labs: Abnormal Lab Results - Last 24 Hours (Table) 08/21/19 08/21/19 08/21/19 Range/Units 05:27 05:27 05:27 RDW 16.6 H (11.5-15.5) % PT 14.6 H (9.0-12.0) sec INR 1.5 H (<1.2) Potassium 2.7 L* (3.5-5.1) mmol/L Chloride 83 L (98-107) mmol/L Carbon Dioxide 40 H (22-30) mmol/L BUN 55 H (9-20) mg/dL Creatinine 1.83 H (0.66-1.25) mg/dL Glucose 124 H (74-99) mg/dL Total Bilirubin 1.7 H (0.2-1.3) mg/dL Alkaline Phosphatase 163 H (38-126) U/L Microbiology - Last 24 Hours (Table) 08/18/19 17:43 Blood Culture - Preliminary Blood No Growth after 48 hours Assessment and Plan Plan: Assessment and plan #1 symptoms of shortness of breath, no clear-cut evidence of CHF exacerbation at this time. There is evidence of a new infiltrate on the chest x-ray, patient states he was coughing up a yellow sputum initially, now it is white in color. #2 chronic persistent atrial fibrillation, rate under adequate control #3 nonischemic cardiomyopathy #4 bilateral lower leg cellulitis and chronic edema #5 hypokalemia #6 abnormality in troponin, not consistent with acute coronary syndrome with no significant rise and fall pattern #7 influenza A and B- Plan We will hold the Lasix and lisinopril today, check lytes BUN and creatinine in the morning. DNP note has been reviewed, I agree with a documented findings and plan of care. Patient was seen and examined.
[2019-08-21] MEDS ORDERED: FUROSEMIDE 40 MG TAB PO SCH (16:00)
[2019-08-21] MEDS: DIGOXIN 125 MCG TAB PO SCH (16:50)
[2019-08-21] MEDS: WARFARIN 7.5 MG TAB PO SCH (16:50)
--- NOTE | 2019-08-21 22:09 | P.PN ---
Subjective Principal diagnosis: Acute on chronic systolic congestive heart failure The patient is here essentially because of exacerbation of CHF. The patient has underlying history of atrial fibrillation. He is feeling much better after sign ificant diuresis. No new voiding difficulties. Appetite is nominal. No significant chest pain or shortness of breath.Appropriate weight loss. INR is subtherapeutic however. Objective - Vital Signs Vital signs: Vital Signs Temp 97.4 F L 08/21/19 16:00 Pulse 85 08/21/19 20:46 Resp 18 08/21/19 16:00 BP 128/72 08/21/19 16:00 Pulse Ox 96 08/21/19 16:21 Intake & Output 08/21/19 08/21/19 08/22/19 06:59 18:59 06:59 Intake Total 944 Balance 944 Weight 110.2 kg Intake: Oral 944 Other: Voiding Method Toilet Toilet Diaper Diaper # Voids 3 - Constitutional General appearance: Present: obese - EENT Eyes: Absent: abnormal pupil - Neck Neck: Absent: lymphadenopathy - Respiratory Respiratory: bilateral: diminished - Cardiovascular Rhythm: regular Heart sounds: normal: S1, S2 Abnormal Heart Sounds: Absent: S3 Gallop - Gastrointestinal General gastrointestinal: Present: soft. Absent: tenderness - Psychiatric Psychiatric: Present: A&O x's 3. Absent: appropriate affect - Labs CBC & Chem 7: 08/21/19 05:27 08/21/19 21:08 Labs: Abnormal Lab Results - Last 24 Hours (Table) 08/21/19 08/21/19 08/21/19 Range/Units 05:27 05:27 05:27 RDW 16.6 H (11.5-15.5) % PT 14.6 H (9.0-12.0) sec INR 1.5 H (<1.2) Potassium 2.7 L* (3.5-5.1) mmol/L Chloride 83 L (98-107) mmol/L Carbon Dioxide 40 H (22-30) mmol/L BUN 55 H (9-20) mg/dL Creatinine 1.83 H (0.66-1.25) mg/dL Glucose 124 H (74-99) mg/dL Total Bilirubin 1.7 H (0.2-1.3) mg/dL Alkaline Phosphatase 163 H (38-126) U/L 08/21/19 08/21/19 Range/Units 15:09 21:08 RDW (11.5-15.5) % PT (9.0-12.0) sec INR (<1.2) Potassium 3.1 L 3.3 L (3.5-5.1) mmol/L Chloride (98-107) mmol/L Carbon Dioxide (22-30) mmol/L BUN (9-20) mg/dL Creatinine (0.66-1.25) mg/dL Glucose (74-99) mg/dL Total Bilirubin (0.2-1.3) mg/dL Alkaline Phosphatase (38-126) U/L Microbiology - Last 24 Hours (Table) 08/18/19 17:43 Blood Culture - Preliminary Blood No Growth after 72 hours Assessment and Plan (1) Atrial fibrillation Current Visit: Yes Status: Acute Code(s): I48.91 - UNSPECIFIED ATRIAL FIBRILLATION SNOMED Code(s): 14607222 (2) CHF (congestive heart failure) Current Visit: Yes Status: Acute Code(s): I50.9 - HEART FAILURE, UNSPECIFIED SNOMED Code(s): 14483853 (3) Edema extremities Current Visit: No Status: Acute Code(s): R60.0 - LOCALIZED EDEMA SNOMED Code(s): 591695353 (4) Hypoxia Current Visit: No Status: Acute Code(s): R09.02 - HYPOXEMIA SNOMED Code(s): 074683007 (5) NICM (nonischemic cardiomyopathy) Current Visit: No Status: Acute Code(s): I42.8 - OTHER CARDIOMYOPATHIES SNOMED Code(s): 34488294 Plan: Continue diuresis. Check CMP in a.m. Appreciate cardiology input. Prognosis is improving significantly. Titrate Coumadin as necessary. Time with Patient: Greater than 30
--- NOTE | 2019-08-21 23:16 | PN ---
PROGRESS NOTE DATE OF SERVICE: 08/21/2019 REASON FOR FOLLOWUP: Bilateral lower extremity venostasis ulcers. INTERVAL HISTORY: The patient is currently afebrile. His breathing is slightly improved. Denies any chest pain. Did have a cough; no sputum. No nausea, no vomiting, no abdominal pain or pain to the legs. PHYSICAL EXAMINATION: Blood pressure 128/72 with a pulse of 92, temperature of 97.4. He is 94% on 2 L nasal cannula. General description is an elderly male lying in bed in no distress. RESPIRATORY SYSTEM: Unlabored breathing. Clear to auscultation anteriorly. HEART: S1, S2. Regular rate and rhythm. ABDOMEN: Soft. No tenderness. Legs are currently dressed. No obvious drainage on the dressing. LABS: Hemoglobin 14.4, white count 7.3, creatinine 1.83. Blood culture has been negative. DIAGNOSTIC IMPRESSION AND PLAN: Patient with bilateral lower extremity venostasis ulcers but no cellulitis. Local care to continue with Aquacel Silver and Kahlil wrap and monitor the patient closely off antibiotic therapy. Continue with supportive care. MMODL / IJN: [id number] /
[2019-08-22 07:09] LABS: Anisocytosis Slight; HGB 13.9 gm/dL (13.0-17.5); Hypochromasia Slight; MCH 28.8 pg (25.0-35.0); MCHC 31.6 g/dL (31.0-37.0); MCV 91.3 fL (80.0-100.0); Mean Platelet Volume 8.6; Platelet Count 177 k/uL (150-450); RBC 4.82 m/uL (4.30-5.90); RDW 16.5 % (11.5-15.5); WBC 7.4 k/uL (3.8-10.6)
[2019-08-22 07:16] LABS: INR 1.6 (<1.2); Prothrombin Time 15.8 sec (9.0-12.0)
[2019-08-22 07:23] LABS: Albumin 3.7 g/dL (3.5-5.0); Calcium 8.1 mg/dL (8.4-10.2); Potassium 3.1 mmol/L (3.5-5.1); Total Bilirubin 1.7 mg/dL (0.2-1.3); Total Protein 7.7 g/dL (6.3-8.2)
--- NOTE | 2019-08-22 08:51 | P.PN ---
Subjective Progress Note Date: 08/22/19 On O2 2019 patient seen in follow-up on selective care unit, he is awake and alert, in no acute distress, denies any worsening dyspnea, pulse ox is 94% on 3 L, afebrile, hemodynamically stable, patient has been ambulating to the bathroom and back to his recliner with the help of a walker, tolerates activity fairly well, no complaints of chest pain. Maintaining negative fluid balance, patient remains on his home dose Lasix 80 mg twice daily in addition to Zaroxolyn and he is in -2310 mL fluid balance over the last 24 hours. Today's labs patient is developing fluid contraction alkalosis and worsening renal function, with CO2 of 42, BUN of 38 and creatinine of 1.38. Lung sounds reveal some scattered expiratory wheezing, but no rhonchi, occasional cough with no phlegm production. INR today is 1.3, no leukocytosis, white blood cell count of 5.8, hemoglobin 13.1 On O2 2019 patient seen in follow-up on selective care unit. His breathing is comfortable, no acute complaints, he is on 2 L of oxygen with a pulse ox of 100%, blood pressure is 149/97, patient is afebrile. On today's labs patient had further worsening of his renal profile with B1 up to 55 and creatinine is 1.83, potassium is 2.7, chloride is 83, CO2 is 40, and patient has extensively diuresed since admission and he is at least -10 kg since admission. Lower extremity edema has significantly improved, lung sounds reveal some end expiratory wheezing, no crackles. No fever or chills. Yesterday we held patient Zaroxolyn, and he continued on Lasix at 80 mg twice daily in addition to lisinopril 20 mg daily, case was discussed with cardiology and we will hold all of his diuretics and Kahlil inhibitors today and repeat blood work in the morning. 08/22/2019 patient seen in follow-up on selective care unit, he is resting comfortably in bed, remains pulse ox currently is 95%, he does wear oxygen most of the time in on 2 L of pulse ox this morning was 96%, breathing seems to be comfortable although patient does have exertional dyspnea, vital signs are stable, patient is afebrile, lung sounds reveal minimal wheeze in the left lower base and minimal crackles at bilateral bases. Today's labs have been reviewed showing normal white count of 7.4, hemoglobin is 13.9, INR is 1.6, potassium is 3.1, chloride is improving, up to 91, CO2 is 38, BUN is 69, and creatinine has worsened further at 2.05. His diuretics and kahlil inhibitors remains on hold at this time. A has had no nausea vomiting or diarrhea, he is tolerating oral intake. Objective - Vital Signs Vital signs: Vital Signs Temp 97.6 F 08/21/19 20:00 Pulse 85 08/22/19 04:00 Resp 16 08/22/19 04:00 BP 138/75 08/22/19 04:00 Pulse Ox 95 08/22/19 04:00 Intake & Output 08/21/19 08/22/19 08/22/19 18:59 06:59 18:59 Intake Total 944 480 Balance 944 480 Weight 110.6 kg Intake: Oral 944 240 Other 240 Other: Voiding Method Toilet Toilet Diaper Diaper - Exam GENERAL EXAM: Alert, very pleasant, 69-year-old white male, on 2 L of oxygen with a pulse ox of 96% comfortable in no apparent distress. HEAD: Normocephalic/atraumatic. EYES: Normal reaction of pupils, equal size. Conjunctiva pink, sclera white. NOSE: Clear with pink turbinates. THROAT: No erythema or exudates. NECK: No masses, no JVD, no thyroid enlargement, no adenopathy. CHEST: No chest wall deformity. Symmetrical expansion. LUNGS: Equal air entry . Scattered expiratory wheezing, no rhonchi, no rales CVS: Regular rate and rhythm, normal S1 and S2, no gallops, no murmurs, no rubs ABDOMEN: Soft, nontender. No hepatosplenomegaly, normal bowel sounds, no guarding or rigidity. EXTREMITIES: No clubbing, no edema, no cyanosis, 2+ pulses and upper and lower extremities. Lower extremities are Kahlil wrapped, there are changes associated with chronic venous stasis in bilateral lower extremities MUSCULOSKELETAL: Muscle strength and tone normal. SPINE: No scoliosis or deformity SKIN: No rashes CENTRAL NERVOUS SYSTEM: Alert and oriented -3. No focal deficits, tone is normal in all 4 extremities. PSYCHIATRIC: Alert and oriented -3. Appropriate affect. Intact judgment and insight. - Labs CBC & Chem 7: 08/22/19 06:14 08/22/19 06:14 Labs: Abnormal Lab Results - Last 24 Hours (Table) 08/21/19 08/21/19 08/22/19 Range/Units 15:09 21:08 06:14 RDW (11.5-15.5) % PT 15.8 H (9.0-12.0) sec INR 1.6 H (<1.2) Potassium 3.1 L 3.3 L (3.5-5.1) mmol/L Chloride (98-107) mmol/L Carbon Dioxide (22-30) mmol/L BUN (9-20) mg/dL Creatinine (0.66-1.25) mg/dL Glucose (74-99) mg/dL Calcium (8.4-10.2) mg/dL Total Bilirubin (0.2-1.3) mg/dL Alkaline Phosphatase (38-126) U/L 08/22/19 08/22/19 Range/Units 06:14 06:14 RDW 16.5 H (11.5-15.5) % PT (9.0-12.0) sec INR (<1.2) Potassium 3.1 L (3.5-5.1) mmol/L Chloride 91 L (98-107) mmol/L Carbon Dioxide 38 H (22-30) mmol/L BUN 69 H (9-20) mg/dL Creatinine 2.05 H (0.66-1.25) mg/dL Glucose 116 H (74-99) mg/dL Calcium 8.1 L (8.4-10.2) mg/dL Total Bilirubin 1.7 H (0.2-1.3) mg/dL Alkaline Phosphatase 154 H (38-126) U/L Microbiology - Last 24 Hours (Table) 08/18/19 17:43 Blood Culture - Preliminary Blood No Growth after 72 hours Assessment and Plan Plan: Assessment: 1 acute on chronic shortness of breath. The patient reports worsening shortness of breath. He does have some cough and congestion. Nevertheless, there is an underlying CHF which is exacerbated also as the patient has increased edema lower extremities, elevated proBNP level in addition to a chest x-ray showing cardiomegaly and increase in pulmonary vascular markings. He has an ejection f raction of 3035%. Currently, he is on a combination of diuretics and is producing adequate amount of urine output. Golden catheter is in place. There is adequate diuresis on urination. 2 CHF with ejection fraction of 30-35% 3 chronic atrial fibrillation 4 COPD 5 chronic lower extremity edema and chronic venous stasis along with chronic wounds in the lower extremities being managed the wound center 6 obstructive sleep apnea severe with an AHI of 36 currently on CPAP at a pressure of 9 along with oxygen overnight 7 moderate degree of pulmonary hypertension along with biventricular enlargement, moderate concentric left ventricular hypertrophy along with an ejection fraction of 3035% 8 BPH currently has a Golden catheter in place 9 difficult mobility and the patient's getting progressive worsening exercise capacity and is moving around without of a walker 10 gout 11 ex-smoker and the patient quit smoking. His back and he used to smoke cigars. He quit smoking 2014 12 osteoarthritis 13 varicose veins involving the lower extremities 14 acute kidney injury due to diuretic therapy and Kahlil inhibitors Plan: Remains stable from pulmonary perspective, no worsening dyspnea, his diuretics and KAHLIL inhibitor's remain on hold, there has been further worsening of patient's renal profile. No fever or chills, no nausea vomiting or diarrhea. Diuretic management per attending and cardiology, pulmonary service will follow on an as-needed basis. I performed a history & physical examination of the patient and discussed their management with my nurse practitioner, Maria Luisa Bahena. I reviewed the nurse practitioner's note and agree with the documented findings and plan of care. Lung sounds are positive for scattered wheezes. The findings and the impression was discussed with the patient. I attest to the documentation by the nurse practitioner. Time with Patient: Less than 30
--- NOTE | 2019-08-22 08:57 | P.PN ---
Subjective Principal diagnosis: Acute on chronic systolic congestive heart failure The patient is here essentially because of exacerbation of CHF. The patient has underlying history of atrial fibrillation. He is feeling much better after sign ificant diuresis. No new voiding difficulties. Appetite is nominal. No significant chest pain or shortness of breath.Appropriate weight loss. INR is subtherapeutic however. We will go ahead and increase Coumadin. Creatinine slightly elevated today. Objective - Vital Signs Vital signs: Vital Signs Temp 97.6 F 08/21/19 20:00 Pulse 85 08/22/19 04:00 Resp 16 08/22/19 04:00 BP 138/75 08/22/19 04:00 Pulse Ox 95 08/22/19 04:00 Intake & Output 08/21/19 08/22/19 08/22/19 18:59 06:59 18:59 Intake Total 944 480 Balance 944 480 Weight 110.6 kg Intake: Oral 944 240 Other 240 Other: Voiding Method Toilet Toilet Diaper Diaper - Constitutional General appearance: Present: obese - EENT Eyes: Absent: abnormal pupil - Neck Neck: Absent: lymphadenopathy - Respiratory Respiratory: bilateral: rhonchi - Cardiovascular Rhythm: irregularly irregular Heart sounds: normal: S1, S2 Abnormal Heart Sounds: Absent: S3 Gallop - Gastrointestinal General gastrointestinal: Present: soft. Absent: tenderness - Integumentary Integumentary: Present: jaundiced - Labs CBC & Chem 7: 08/22/19 06:14 08/22/19 06:14 Labs: Abnormal Lab Results - Last 24 Hours (Table) 08/21/19 08/21/19 08/22/19 Range/Units 15:09 21:08 06:14 RDW (11.5-15.5) % PT 15.8 H (9.0-12.0) sec INR 1.6 H (<1.2) Potassium 3.1 L 3.3 L (3.5-5.1) mmol/L Chloride (98-107) mmol/L Carbon Dioxide (22-30) mmol/L BUN (9-20) mg/dL Creatinine (0.66-1.25) mg/dL Glucose (74-99) mg/dL Calcium (8.4-10.2) mg/dL Total Bilirubin (0.2-1.3) mg/dL Alkaline Phosphatase (38-126) U/L 08/22/19 08/22/19 Range/Units 06:14 06:14 RDW 16.5 H (11.5-15.5) % PT (9.0-12.0) sec INR (<1.2) Potassium 3.1 L (3.5-5.1) mmol/L Chloride 91 L (98-107) mmol/L Carbon Dioxide 38 H (22-30) mmol/L BUN 69 H (9-20) mg/dL Creatinine 2.05 H (0.66-1.25) mg/dL Glucose 116 H (74-99) mg/dL Calcium 8.1 L (8.4-10.2) mg/dL Total Bilirubin 1.7 H (0.2-1.3) mg/dL Alkaline Phosphatase 154 H (38-126) U/L Microbiology - Last 24 Hours (Table) 08/18/19 17:43 Blood Culture - Preliminary Blood No Growth after 72 hours Assessment and Plan (1) Atrial fibrillation Current Visit: Yes Status: Acute Code(s): I48.91 - UNSPECIFIED ATRIAL FIBRILLATION SNOMED Code(s): 70580769 (2) CHF (congestive heart failure) Current Visit: Yes Status: Acute Code(s): I50.9 - HEART FAILURE, UNSPECIFIED SNOMED Code(s): 52064756 (3) Edema extremities Current Visit: No Status: Acute Code(s): R60.0 - LOCALIZED EDEMA SNOMED Code(s): 937571880 (4) Hypoxia Current Visit: No Status: Acute Code(s): R09.02 - HYPOXEMIA SNOMED Code(s): 011222828 (5) NICM (nonischemic cardiomyopathy) Current Visit: No Status: Acute Code(s): I42.8 - OTHER CARDIOMYOPATHIES S NOMED Code(s): 37265412 Plan: Continue diuresis. Check CMP in a.m. Appreciate cardiology input. Prognosis is improving significantly. Titrate Coumadin as necessary.
[2019-08-22] MEDS: IPRATROPIUM-ALBUTEROL 3 ML NEB INHALATION SCH ×4 (09:07→20:58)
[2019-08-22] MEDS: BUDESONIDE 0.5 MG/2 ML NEBU INHALATION SCH ×2 (09:07→20:58)
[2019-08-22] MEDS: CARVEDILOL 12.5 MG TAB PO SCH ×2 (09:33→21:37)
[2019-08-22] MEDS: ISOSORBIDE MONONITRATE ER 30 MG TAB.ER.24H PO SCH (09:33)
[2019-08-22] MEDS: TAMSULOSIN 0.4 MG CAP.ER.24H PO SCH (09:33)
[2019-08-22] MEDS: POTASSIUM CHLORIDE ER 20 MEQ TAB.ER PO SCH ×2 (09:33→21:38)
[2019-08-22] MEDS: hydrALAZINE HCL 50 MG TAB PO SCH ×2 (09:33→21:38)
[2019-08-22] MEDS: ALLOPURINOL 300 MG TAB PO SCH (09:33)
[2019-08-22] MEDS: SODIUM CHLORIDE 0.9% 1,000 ML IV SCH (09:42)
--- NOTE | 2019-08-22 15:05 | P.PN ---
Subjective Progress Note Date: 08/22/19 This is a 69-year-old gentleman with history of nonischemic cardiomyopathy, chronic atrial fibrillation, hypertension, COPD, who presented to the hospital with symptoms of shortness of breath. The patient has chronic leg edema as well as chronic stasis of both of his legs for which she was being followed at the [facility]. He follows with Dr. Sheriff in the office on a regular basis. Chest x-ray was performed on arrival here, there appears to be an increased density over the left lower lobe behind the heart as compared with yesterday, suggestive of possible pneumonia. EKG shows atrial fibrillation with a controlled ventricular response. Blood pressure 146/70 with a heart rate in the 80s, afebrile. White blood cell count 3.1, hemoglobin 12.1, platelet count 127. Sodium 139, potassium 3.4, BUN 33, creatinine 1.1. Troponin went 026, 0.03, 0.03. BNP [id number]. Patient was seen and examined this morning sitting up in the chair at bedside. He does state overall that he feels significantly better than he did yesterday on presentation here. 08/20/2019 Patient was seen and examined today, awake and alert, breathing overall stable. Currently on oral Lasix, he is also getting Zaroxolyn daily. He is in a negative fluid balance. Let pressure 117/78 with a heart rate in the 70s, 96% on 2 L of oxygen. Blood cell count 5.8, hemoglobin 13.1, platelet count 170. Sodium 140, potassium 3.2, BUN 38 and creatinine 1.3. Zaroxolyn has been placed on hold. 08/21/2019 Patient seen and examined this morning, sitting up in the chair at bedside. Overall he feels well. Did have some mild dizziness when he got up from the toilet walking back to his chair. Blood pressure 127/60 with a heart rate 90, 96% on 3 L of oxygen. White blood cell count 7.3, hemoglobin 14.5, platelet count 177. Sodium 137, potassium 2.7, BUN 55, creatinine 1.8. 08/16/2019 Patient was seen and examined this morning, resting comfortably in the chair at his bedside. Breathing is overall stable. White blood cell count 7.4, hemoglobin 13.9, platelet count 177. Sodium 138, potassium 3.1, BUN 69, creatinine 2.0. Objective - Vital Signs Vital signs: Vital Signs Temp 97.5 F L 08/22/19 08:00 Pulse 80 08/22/19 12:21 Resp 16 08/22/19 04:00 BP 128/82 08/22/19 08:00 Pulse Ox 95 08/22/19 09:08 Intake & Output 08/21/19 08/22/19 08/22/19 18:59 06:59 18:59 Intake Total 944 480 360 Balance 944 480 360 Weight 110.6 kg Intake: Oral 944 240 360 Other 240 Other: Voiding Method Toilet Toilet Toilet Diaper Diaper Diaper - Exam HEAD: Normocephalic/atraumatic. EYES: Normal reaction of pupils, equal size. Conjunctiva pink, sclera white. NOSE: Clear with pink turbinates. THROAT: No erythema or exudates. NECK: No masses, no JVD, no thyroid enlargement, no adenopathy. CHEST: No chest wall deformity. Symmetrical expansion. LUNGS: Equal air entry . Scattered expiratory wheezing, no rhonchi, no rales CVS: Regular rate and rhythm, normal S1 and S2, no gallops, no murmurs, no rubs ABDOMEN: Soft, nontender. No hepatosplenomegaly, normal bowel sounds, no guarding or rigidity. EXTREMITIES: No clubbing, no edema, no cyanosis, 2+ pulses and upper and lower extremities. Lower extremities are Kahlil wrapped MUSCULOSKELETAL: Muscle strength and tone normal. SPINE: No scoliosis or deformity SKIN: No rashes CENTRAL NERVOUS SYSTEM: Alert and oriented -3. No focal deficits, tone is normal in all 4 extremities. PSYCHIATRIC: Alert and oriented -3. Appropriate affect. Intact judgment and insight. - Labs CBC & Chem 7: 08/22/19 06:14 08/22/19 06:14 Labs: Abnormal Lab Results - Last 24 Hours (Table) 08/21/19 08/21/19 08/22/19 Range/Units 15:09 21:08 06:14 RDW (11.5-15.5) % PT 15.8 H (9.0-12.0) sec INR 1.6 H (<1.2) Potassium 3.1 L 3.3 L (3.5-5.1) mmol/L Chloride (98-107) mmol/L Carbon Dioxide (22-30) mmol/L BUN (9-20) mg/dL Creatinine (0.66-1.25) mg/dL Glucose (74-99) mg/dL Calcium (8.4-10.2) mg/dL Total Bilirubin (0.2-1.3) mg/dL Alkaline Phosphatase (38-126) U/L 08/22/19 08/22/19 Range/Units 06:14 06:14 RDW 16.5 H (11.5-15.5) % PT (9.0-12.0) sec INR (<1.2) Potassium 3.1 L (3.5-5.1) mmol/L Chloride 91 L (98-107) mmol/L Carbon Dioxide 38 H (22-30) mmol/L BUN 69 H (9-20) mg/dL Creatinine 2.05 H (0.66-1.25) mg/dL Glucose 116 H (74-99) mg/dL Calcium 8.1 L (8.4-10.2) mg/dL Total Bilirubin 1.7 H (0.2-1.3) mg/dL Alkaline Phosphatase 154 H (38-126) U/L Microbiology - Last 24 Hours (Table) 08/18/19 17:43 Blood Culture - Preliminary Blood No Growth after 72 hours Assessment and Plan Plan: Assessment and plan #1 symptoms of shortness of breath, no clear-cut evidence of CHF exacerbation at this time. There is evidence of a new infiltrate on the chest x-ray, patient states he was coughing up a yellow sputum initially, now it is white in color. #2 chronic persistent atrial fibrillation, rate under adequate control #3 nonischemic cardiomyopathy #4 bilateral lower leg cellulitis and chronic edema #5 hypokalemia #6 abnormality in troponin, not consistent with acute coronary syndrome with no significant rise and fall pattern #7 influenza A and B- Plan We'll continue to hold the diuretics, give the patient IV fluids at 50 mL per hour check lytes BUN and creatinine in the morning. Replace potassium. DNP note has been reviewed, I agree with a documented findings and plan of care. Patient was seen and examined.
[2019-08-22] MEDS: DIGOXIN 125 MCG TAB PO SCH (17:52)
[2019-08-23] MEDS: SODIUM CHLORIDE 0.9% 1,000 ML IV SCH (06:17)
[2019-08-23 06:22] LABS: Albumin 3.3 g/dL (3.5-5.0); Calcium 7.7 mg/dL (8.4-10.2); Total Bilirubin 1.1 mg/dL (0.2-1.3); Total Protein 7.2 g/dL (6.3-8.2)
[2019-08-23] MEDS: IPRATROPIUM-ALBUTEROL 3 ML NEB INHALATION SCH ×4 (08:16→19:44)
[2019-08-23] MEDS: BUDESONIDE 0.5 MG/2 ML NEBU INHALATION SCH ×2 (08:16→19:44)
--- NOTE | 2019-08-23 08:30 | P.PN ---
Subjective Principal diagnosis: Acute on chronic systolic congestive heart failure The patient is here essentially because of exacerbation of CHF. The patient has underlying history of atrial fibrillation. He is feeling much better after sign ificant diuresis. No new voiding difficulties. Appetite is nominal. No significant chest pain or shortness of breath.Appropriate weight loss. INR is subtherapeutic however. We will go ahead and increase Coumadin. Creatinine at however potassium is still low. Objective - Vital Signs Vital signs: Vital Signs Temp 97.9 F 08/22/19 20:00 Pulse 94 08/23/19 08:18 Resp 16 08/23/19 04:00 BP 152/86 08/23/19 04:00 Pulse Ox 96 08/23/19 08:18 Intake & Output 08/22/19 08/23/19 08/23/19 18:59 06:59 18:59 Intake Total 1210 540 Balance 1210 540 Weight 112.4 kg Intake: Intake, IV Titration 250 Amount Sodium Chloride 0.9% 1, 250 000 ml @ 50 mls/hr IV . Q20H [facility] Rx#:[id number] Oral 960 540 Other: Voiding Method Toilet Toilet Diaper Diaper # Voids 4 # Bowel Movements 2 - Constitutional General appearance: Present: obese - EENT Eyes: Absent: abnormal pupil - Neck Neck: Absent: lymphadenopathy - Respiratory Respiratory: bilateral: rhonchi - Cardiovascular Rhythm: regular Heart sounds: normal: S1, S2 Abnormal Heart Sounds: Absent: S3 Gallop - Gastrointestinal General gastrointestinal: Present: soft. Absent: tenderness - Neurologic Neurologic: Present: CNII-XII intact - Labs CBC & Chem 7: 08/22/19 06:14 08/23/19 05:28 Labs: Abnormal Lab Results - Last 24 Hours (Table) 08/23/19 Range/Units 05:28 Potassium 3.0 L (3.5-5.1) mmol/L Chloride 94 L (98-107) mmol/L Carbon Dioxide 36 H (22-30) mmol/L BUN 65 H (9-20) mg/dL Creatinine 1.58 H (0.66-1.25) mg/dL Glucose 107 H (74-99) mg/dL Calcium 7.7 L (8.4-10.2) mg/dL Alkaline Phosphatase 133 H (38-126) U/L Albumin 3.3 L (3.5-5.0) g/dL Microbiology - Last 24 Hours (Table) 08/18/19 17:43 Blood Culture - Preliminary Blood No Growth after 96 hours Assessment and Plan (1) Atrial fibrillation Current Visit: Yes Status: Acute Code(s): I48.91 - UNSPECIFIED ATRIAL FIBRILLATION SNOMED Code(s): 43892997 (2) CHF (congestive heart failure) Current Visit: Yes Status: Acute Code(s): I50.9 - HEART FAILURE, UNSPECIFIED SNOMED Code(s): 27617525 (3) Edema extremities Current Visit: No Status: Acute Code(s): R60.0 - LOCALIZED EDEMA SNOMED Code(s): 855622552 (4) Hypoxia Current Visit: No Status: Acute Code(s): R09.02 - HYPOXEMIA SNOMED Code(s): 855461810 (5) NICM (nonischemic cardiomyopathy) Current Visit: No Status: Acute Code(s): I42.8 - OTHER CARDIOMYOPATHIES SNOMED Code(s): 40150957 Plan: Continue diuresis. Check CMP in a.m. Appreciate cardiology input. Prognosis is improving significantly. Titrate Coumadin as necessary. Otherwise, increase potassium per protocol. Anticipate discharge in a.m.
[2019-08-23] MEDS: TAMSULOSIN 0.4 MG CAP.ER.24H PO SCH (09:36)
[2019-08-23] MEDS: hydrALAZINE HCL 50 MG TAB PO SCH ×2 (09:36→22:06)
[2019-08-23] MEDS: ALLOPURINOL 300 MG TAB PO SCH (09:36)
[2019-08-23] MEDS: ISOSORBIDE MONONITRATE ER 30 MG TAB.ER.24H PO SCH (09:36)
[2019-08-23] MEDS: CARVEDILOL 12.5 MG TAB PO SCH ×2 (09:36→22:06)
[2019-08-23] MEDS: POTASSIUM CHLORIDE ER 20 MEQ TAB.ER PO SCH ×2 (09:37→22:06)
--- NOTE | 2019-08-23 12:53 | P.PN ---
Subjective Progress Note Date: 08/23/19 This is a 69-year-old gentleman with history of nonischemic cardiomyopathy, chronic atrial fibrillation, hypertension, COPD, who presented to the hospital with symptoms of shortness of breath. The patient has chronic leg edema as well as chronic stasis of both of his legs for which she was being followed at the [facility]. He follows with Dr. Sheriff in the office on a regular basis. Chest x-ray was performed on arrival here, there appears to be an increased density over the left lower lobe behind the heart as compared with yesterday, suggestive of possible pneumonia. EKG shows atrial fibrillation with a controlled ventricular response. Blood pressure 146/70 with a heart rate in the 80s, afebrile. White blood cell count 3.1, hemoglobin 12.1, platelet count 127. Sodium 139, potassium 3.4, BUN 33, creatinine 1.1. Troponin went 026, 0.03, 0.03. BNP [id number]. Patient was seen and examined this morning sitting up in the chair at bedside. He does state overall that he feels significantly better than he did yesterday on presentation here. 08/20/2019 Patient was seen and examined today, awake and alert, breathing overall stable. Currently on oral Lasix, he is also getting Zaroxolyn daily. He is in a negative fluid balance. Let pressure 117/78 with a heart rate in the 70s, 96% on 2 L of oxygen. Blood cell count 5.8, hemoglobin 13.1, platelet count 170. Sodium 140, potassium 3.2, BUN 38 and creatinine 1.3. Zaroxolyn has been placed on hold. 08/21/2019 Patient seen and examined this morning, sitting up in the chair at bedside. Overall he feels well. Did have some mild dizziness when he got up from the toilet walking back to his chair. Blood pressure 127/60 with a heart rate 90, 96% on 3 L of oxygen. White blood cell count 7.3, hemoglobin 14.5, platelet count 177. Sodium 137, potassium 2.7, BUN 55, creatinine 1.8. 08/22/2019 Patient was seen and examined this morning, resting comfortably in the chair at his bedside. Breathing is overall stable. White blood cell count 7.4, hemoglobin 13.9, platelet count 177. Sodium 138, potassium 3.1, BUN 69, creatinine 2.0. 08/23/2019 Shunt was seen and examined this morning, sitting up at the bedside, breathing is stable, creatinine today is down to 1.5, patient still has a low potassium. 3.0 today. We will add Aldactone to his medication regime. Replace his potassium. Plan for discharge home in 24 hours. Objective - Vital Signs Vital signs: Vital Signs Temp 97.4 F L 08/23/19 08:00 Pulse 84 08/23/19 11:41 Resp 16 08/23/19 04:00 BP 141/70 08/23/19 08:00 Pulse Ox 96 08/23/19 08:18 Intake & Output 08/22/19 08/23/19 08/23/19 18:59 06:59 18:59 Intake Total 1210 540 360 Balance 1210 540 360 Weight 112.4 kg Intake: Intake, IV Titration 250 Amount Sodium Chloride 0.9% 1, 250 000 ml @ 50 mls/hr IV . Q20H [facility] Rx#:[id number] Oral 960 540 360 Other: Voiding Method Toilet Toilet Toilet Diaper Diaper Diaper # Voids 4 2 # Bowel Movements 2 - Exam HEAD: Normocephalic/atraumatic. EYES: Normal reaction of pupils, equal size. Conjunctiva pink, sclera white. NOSE: Clear with pink turbinates. THROAT: No erythema or exudates. NECK: No masses, no JVD, no thyroid enlargement, no adenopathy. CHEST: No chest wall deformity. Symmetrical expansion. LUNGS: Equal air entry . Scattered expiratory wheezing, no rhonchi, no rales CVS: Regular rate and rhythm, normal S1 and S2, no gallops, no murmurs, no rubs ABDOMEN: Soft, nontender. No hepatosplenomegaly, normal bowel sounds, no guarding or rigidity. EXTREMITIES: No clubbing, no edema, no cyanosis, 2+ pulses and upper and lower extremities. Lower extremities are Kalhil wrapped MUSCULOSKELETAL: Muscle strength and tone normal. SPINE: No scoliosis or deformity SKIN: No rashes CENTRAL NERVOUS SYSTEM: Alert and oriented -3. No focal deficits, tone is normal in all 4 extremities. PSYCHIATRIC: Alert and oriented -3. Appropriate affect. Intact judgment and insight. - Labs CBC & Chem 7: 08/22/19 06:14 08/23/19 05:28 Labs: Abnormal Lab Results - Last 24 Hours (Table) 08/23/19 Range/Units 05:28 Potassium 3.0 L (3.5-5.1) mmol/L Chloride 94 L (98-107) mmol/L Carbon Dioxide 36 H (22-30) mmol/L BUN 65 H (9-20) mg/dL Creatinine 1.58 H (0.66-1.25) mg/dL Glucose 107 H (74-99) mg/dL Calcium 7.7 L (8.4-10.2) mg/dL Alkaline Phosphatase 133 H (38-126) U/L Albumin 3.3 L (3.5-5.0) g/dL Microbiology - Last 24 Hours (Table) 08/18/19 17:43 Blood Culture - Preliminary Blood No Growth after 96 hours Assessment and Plan Plan: Assessment and plan #1 symptoms of shortness of breath, no clear-cut evidence of CHF exacerbation at this time. There is evidence of a new infiltrate on the chest x-ray, patient states he was coughing up a yellow sputum initially, now it is white in color. #2 chronic persistent atrial fibrillation, rate under adequate control #3 nonischemic cardiomyopathy #4 bilateral lower leg cellulitis and chronic edema #5 hypokalemia #6 abnormality in troponin, not consistent with acute coronary syndrome with no significant rise and fall pattern #7 influenza A and B- Plan We'll continue to hold the diuretics, continue the patient IV fluids at 50 mL per hour check lytes BUN and creatinine in the morning. Replace potassium. Add Aldactone. DNP note has been reviewed, I agree with a documented findings and plan of care. Patient was seen and examined.
[2019-08-23] MEDS: SPIRONOLACTONE 25 MG TAB PO SCH (13:19)
[2019-08-23] MEDS ORDERED: 0.9% NACL WITH KCL 20 MEQ/L 1,000 ML IV SCH (17:00)
[2019-08-23] MEDS: DIGOXIN 125 MCG TAB PO SCH (18:32)
--- NOTE | 2019-08-24 08:02 | P.DS ---
Providers Date of admission: 08/18/19 18:28 Attending physician: Wiliam Modi Consults: 08/19/19 06:10 Consult Physician Routine Consulting Provider: Alexander Pendleton Consult Reason/Comments: elevated troponin Do you want consulting provider notified?: Yes, Notify in am 08/19/19 09:59 Consult Physician Routine Consulting Provider: Vianca Calles Consult Reason/Comments: wound care Do you want consulting provider notified?: Yes 08/19/19 11:05 Consult Physician Routine Consulting Provider: Aurea Cohen Consult Reason/Comments: SOB etiology not clear Do you want consulting provider notified?: Yes Primary care physician: Wiliam Modi - Discharge Diagnosis(es) (1) Atrial fibrillation Current Visit: Yes Status: Acute (2) CHF (congestive heart failure) Current Visit: Yes Status: Acute (3) Edema extremities Current Visit: No Status: Acute (4) Hypoxia Current Visit: No Status: Acute (5) NICM (nonischemic cardiomyopathy) Current Visit: No Status: Acute Hospital Course: This discharge summary 69-year-old white male who was admitted for congestive heart failure. Diuresis was given however he had subtherapeutic INR and his Coumadin was increased to 10 g temporarily. The patient did quite well but had low potassium. We will DC once potassium is close to the normal limit and he is to follow-up with me in about 5 days. Patient Condition at Discharge: Stable Plan - Discharge Summary Discharge Rx Participant: No New Discharge Prescriptions: New Ipratropium-Albuterol Nebulize [Duoneb 0.5 mg-3 mg/3 ml Soln] 3 ml INHALATION RT-QID #120 ml SILVER sulfADIAZINE CREAM [Silvadene Cream] 1 applic TOPICAL DAILY 14 Days #120 gram Continue Tamsulosin HCl [Flomax] 0.8 mg PO DAILY Isosorbide Mononitrate ER [Imdur] 30 mg PO DAILY Allopurinol [Zyloprim] 300 mg PO DAILY Potassium Chloride 20 meq PO BID Warfarin [Coumadin] 7.5 mg PO DAILY Naproxen 500 mg PO BID Carvedilol [Coreg] 25 mg PO BID Metolazone [Zaroxolyn] 5 mg PO DAILY Lisinopril [Zestril] 20 mg PO DAILY Magnesium Oxide 400 mg PO DAILY Digoxin [Lanoxin] 125 mcg PO AC-SUPPER hydrALAZINE HCL [Apresoline] 100 mg PO BID Triamcinolone 0.1% Cream [Kenalog 0.1% Cream] 1 applicatio TOPICAL BID PRN PRN Reason: OPEN WOUNDS Furosemide [Lasix] 40 mg PO BID Discharge Medication List Isosorbide Mononitrate ER [Imdur] 30 mg PO DAILY 04/11/14 [History] Tamsulosin HCl [Flomax] 0.8 mg PO DAILY 04/11/14 [History] Allopurinol [Zyloprim] 300 mg PO DAILY 03/03/16 [History] Carvedilol [Coreg] 25 mg PO BID 04/25/18 [History] Lisinopril [Zestril] 20 mg PO DAILY 04/25/18 [History] Magnesium Oxide 400 mg PO DAILY 04/25/18 [History] Metolazone [Zaroxolyn] 5 mg PO DAILY 04/25/18 [History] Naproxen 500 mg PO BID 04/25/18 [History] Potassium Chloride 20 meq PO BID 04/25/18 [History] Warfarin [Coumadin] 7.5 mg PO DAILY 04/25/18 [History] Digoxin [Lanoxin] 125 mcg PO AC-SUPPER 06/09/18 [History] Furosemide [Lasix] 40 mg PO BID 08/18/19 [History] Triamcinolone 0.1% Cream [Kenalog 0.1% Cream] 1 applicatio TOPICAL BID PRN 08/18/19 [History] hydrALAZINE HCL [Apresoline] 100 mg PO BID 08/18/19 [History] Ipratropium-Albuterol Nebulize [Duoneb 0.5 mg-3 mg/3 ml Soln] 3 ml INHALATION RT-QID #120 ml 08/24/19 [Rx] SILVER sulfADIAZINE CREAM [Silvadene Cream] 1 applic TOPICAL DAILY 14 Days #120 gram 08/24/19 [Rx] Follow up Appointment(s)/Referral(s): Alexander Pendleton MD [STAFF PHYSICIAN] - 09/04/19 3:45 pm (Tuesday) Aurea Cohen MD [STAFF PHYSICIAN] - 1 Week Wiliam Modi MD [Primary Care Provider] - 3 Days Patient Instructions/Handouts: Heart Failure (DC), Heart Healthy Diet (DC) Activity/Diet/Wound Care/Special Instructions: 1. Weigh yourself every morning after you urinate. If you gain 2-3 pounds overnight or 5 pounds in one week, call your primary physician for guidance on your medications. Keep a log of your weights. 2. Avoid salt, or foods with hidden salt. Extra salt makes your heart work harder and traps the fluid in your body for longer. 3. Take all of your medications as directed, especially your water pills. NEVER skip a dose. 4. Elevate your legs when you are not up moving around to help with circulation and prevent swelling. 5. Call your physician if you notice any extra swelling in your legs, ankles, feet or abdomen, if you have a new dry cough, if your shortness of breath worsens with activity or at rest, or if you feel more fatigued.
[2019-08-24] MEDS: TAMSULOSIN 0.4 MG CAP.ER.24H PO SCH (08:31)
[2019-08-24] MEDS: ISOSORBIDE MONONITRATE ER 30 MG TAB.ER.24H PO SCH (08:32)
[2019-08-24] MEDS: SPIRONOLACTONE 25 MG TAB PO SCH (08:32)
[2019-08-24] MEDS: POTASSIUM CHLORIDE ER 20 MEQ TAB.ER PO SCH (08:33)
[2019-08-24] MEDS: ALLOPURINOL 300 MG TAB PO SCH (08:33)
[2019-08-24] MEDS: hydrALAZINE HCL 50 MG TAB PO SCH (08:33)
[2019-08-24] MEDS: CARVEDILOL 12.5 MG TAB PO SCH (08:34)
[2019-08-24] MEDS: IPRATROPIUM-ALBUTEROL 3 ML NEB INHALATION SCH ×2 (08:38→11:50)
[2019-08-24] MEDS: BUDESONIDE 0.5 MG/2 ML NEBU INHALATION SCH (08:38)
[2019-08-24 09:29] VITALS: RESP 18
[2019-08-24 11:19] VITALS: BP 143/105; PULSE 85; TEMP 97.3
--- NOTE | 2019-08-24 14:11 | P.PN ---
Progress Note - Text Progress Note Date: 08/24/19 This is a very pleasant 69-year-old gentleman with history of long-standing persistent atrial fibrillation, chronic lower extremities edema, chronic shortness of breath, as well as multiple comorbid conditions was admitted to the hospital with increasing in the shortness of breath and finding on the x-ray consistent was possibly pneumonia. The patient was seen today, 08/24/2019. He is feeling better in terms of shortness of breath and denies any symptoms of chest pain or chest discomfort. He continues to have lower extremities edema. From the cardiac vascular standpoint overview, the patient can be discharged home.
--- NOTE | 2019-08-29 11:37 | CDI ---
Documentation Clarification Form Date: 08/29/19 From: Suzi Coto Phone: If you have a question about this query, please contact Mayra Ayon, Client Onboarding Analyst at [phone] between 8am and 5pm. Admit Date: 08/18/19 Discharge Date: 08/24/19 Patient Name: JULIANNE BOLAÑOS Visit Number: [id number] ATTENTION: The Clinical Documentation Specialists (CDI) and [facility] Coding Staff appreciate your assistance in clarifying documentation. Please respond to the clarification below the line at the bottom and electronically sign. The CDI & [facility] Coding staff will review the response and follow-up if needed. Please note: Queries are made part of the Legal Health Record. If you have any questions, please contact the author of this message via ITS. Dear Dr. Wiliam Modi, The diagnosis of possible pneumonia was documented in the ED note, HP, cardiology consult, and cardiology PNS 08/20-08/23, but is not noted in your subsequent documentation. 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 Per H&P-SOB has been going on for the last 4 days w low sputum production. No leukocytosis, no fever. Treatment: 1 gm IV Rocephin, 500 mg IV Zithromax both one time on 08/18 Please clarify if the pneumonia was Present/active/treated this admission Ruled out Other, please specify Clinically unable to determine MTDD
== END 2019-08-24 13:17 | disposition home or self-care (01) | DRG 291 ==
LOC: EC 16:14 → 3SCARD 18:28
PROVIDERS: ADMIT Family Medicine; ATTEND Family Medicine
DX: I11.0 Hypertensive heart disease with heart failure (principal); J18.9 Pneumonia, unspecified organism; E87.3 Alkalosis; N17.9 Acute kidney failure, unspecified; I48.11 Longstanding persistent atrial fibrillation; L97.819 Non-pressure chronic ulcer of other part of right lower leg with unspecified severity; L97.829 Non-pressure chronic ulcer of other part of left lower leg with unspecified severity; L03.115 Cellulitis of right lower limb; L03.116 Cellulitis of left lower limb; J44.0 Chronic obstructive pulmonary disease with (acute) lower respiratory infection; I27.20 Pulmonary hypertension, unspecified; I50.23 Acute on chronic systolic (congestive) heart failure; I83.018 Varicose veins of right lower extremity with ulcer other part of lower leg; I83.028 Varicose veins of left lower extremity with ulcer other part of lower leg; I42.8 Other cardiomyopathies; E87.6 Hypokalemia; T50.2X5A Adverse effect of carbonic-anhydrase inhibitors, benzothiadiazides and other diuretics, initial encounter; R79.1 Abnormal coagulation profile; G47.33 Obstructive sleep apnea (adult) (pediatric); R25.1 Tremor, unspecified; M10.9 Gout, unspecified; N40.0 Benign prostatic hyperplasia without lower urinary tract symptoms; M19.90 Unspecified osteoarthritis, unspecified site; R09.02 Hypoxemia; E66.9 Obesity, unspecified; Z68.34 Body mass index [BMI] 34.0-34.9, adult; R79.89 Other specified abnormal findings of blood chemistry; Z79.01 Long term (current) use of anticoagulants; Z79.1 Long term (current) use of non-steroidal anti-inflammatories (NSAID); Z79.899 Other long term (current) drug therapy; Z87.01 Personal history of pneumonia (recurrent); Z99.89 Dependence on other enabling machines and devices; Z86.14 Personal history of Methicillin resistant Staphylococcus aureus infection; Z87.891 Personal history of nicotine dependence; Z86.59 Personal history of other mental and behavioral disorders; Z71.3 Dietary counseling and surveillance; Z98.890 Other specified postprocedural states; Z83.3 Family history of diabetes mellitus; Z81.8 Family history of other mental and behavioral disorders; Z83.518 Family history of other specified eye disorder; Z82.49 Family history of ischemic heart disease and other diseases of the circulatory system
CPT/HCPCS: 36415; 71045; 71046; 80048; 80053; 80162; 83605; 83880; 84132; 84484; 85025; 85027; 85610; 85730; 87040; 87502; 94640; 94760; 96365; 96375; 99285

== ENCOUNTER 2019-12-19 19:51 | Inpatient (IN) | payer MEDICARE, BC ==
[2019-12-19] MEDS ORDERED: IBUPROFEN 600 MG TAB PO STA (20:13)
[2019-12-19] MEDS ORDERED: ACETAMINOPHEN TAB 500 MG TAB PO STA (20:13)
[2019-12-19] MEDS ORDERED: SODIUM CHLORIDE 0.9% 500 ML 500 ML IV SCH (20:15)
[2019-12-19 20:44] LABS: Anisocytosis Slight; Basophils % (A) 0 %; Eosinophils # (A) 0.1 k/uL (0-0.7); Eosinophils % (A) 2 %; HCT 32.8 % (39.0-53.0); HGB 10.1 gm/dL (13.0-17.5); Hypochromasia Moderate; Lymphocytes # (A) 0.2 k/uL (1.0-4.8); Lymphocytes % (A) 4 %; MCH 27.6 pg (25.0-35.0); MCHC 30.7 g/dL (31.0-37.0); MCV 89.7 fL (80.0-100.0); Mean Platelet Volume 8.2; Monocytes # (A) 0.2 k/uL (0-1.0); Monocytes % (A) 5 %; Neutrophils # (A) 4.3 k/uL (1.3-7.7); Neutrophils % (A) 88 %; Platelet Count 147 k/uL (150-450); RBC 3.66 m/uL (4.30-5.90); RDW 16.2 % (11.5-15.5); WBC 4.9 k/uL (3.8-10.6)
[2019-12-19 20:58] LABS: Albumin 3.5 g/dL (3.5-5.0); Calcium 8.3 mg/dL (8.4-10.2); Potassium 3.2 mmol/L (3.5-5.1); Total Bilirubin 1.9 mg/dL (0.2-1.3); Total Protein 7.1 g/dL (6.3-8.2)
[2019-12-19 21:00] LABS: Appearance,Urine Clear (Clear); Bilirubin,Urine Negative (Negative); Blood,Urine Negative (Negative); Color,Urine Yellow; Glucose,Urine (UA) Negative (Negative); Hyaline Casts,Urine 1 /lpf (0-2); INR 3.7 (<1.2); Ketones,Urine Negative (Negative); Leukocyte Esterase,Urine Negative (Negative); Mucus,Urine Rare /hpf; Nitrite,Urine Negative (Negative); PH, Urine 6.5 (5.0-8.0); Protein,Urine 2+ (Negative); Prothrombin Time 36.3 sec (9.0-12.0); RBC,Urine 1 /hpf (0-5); Specific Gravity,Urine 1.018 (1.001-1.035); Squamous Epithelial Cell,Urine <1 /hpf (0-4); WBC,Urine 1 /hpf (0-5)
--- NOTE | 2019-12-19 21:00 | XR ---
EXAMINATION TYPE: XR chest 2V DATE OF EXAM: 12/19/2019 COMPARISON: Prior chest x-ray August 21, 2019 HISTORY: Fever. TECHNIQUE: Frontal and lateral views of the chest are obtained. FINDINGS: There is some patchy increased opacity bilateral hilar regions. No pleural effusion or pne umothorax seen bilaterally. The cardiac silhouette size remains enlarged. Multilevel spurring in thor acic spine is redemonstrated. IMPRESSION: Cardiomegaly with new bilateral perihilar edema and/or infiltrates. Correlate clinically .
--- NOTE | 2019-12-19 21:11 | ED ---
General Adult HPI - General Source: patient, EMS, RN notes reviewed Mode of arrival: EMS Limitations: no limitations <Kailash Turner - Last Filed: 12/20/19 01:17> <Josie Quintanilla - Last Filed: 12/23/19 02:04> - General Chief complaint: Weakness Stated complaint: Weakness Time Seen by Provider: 12/19/19 20:01 - History of Present Illness Initial comments: 69-year-old male with a complicated past medical history including atrial fibrillation on Coumadin, heart failure, COPD, hypertension presents to the emergency department for a chief complaint of weakness. Patient states that he had the chills yesterday and was very cold. States that today he started to feel very weak and not himself. Patient reports that he had a fever of 101 at home so came into the emergency room. Patient denies cough, abdominal pain, shortness of breath, dysuria, rashes. Patient is noted to have bilateral lower extremity wraps on and a very foul odor coming from the lower extremities. States he used to see wound care for this but no longer does. States he is to wraps and cares for his legs. States he does it every few days.Patient has no other complaints at this time including shortness of breath, chest pain, abdomin al pain, nausea or vomiting, headache, or visual changes. (Kailash Turner) - Related Data Home Medications Medication Instructions Recorded Confirmed Isosorbide Mononitrate ER [Imdur] 30 mg PO DAILY 04/11/14 12/19/19 Tamsulosin HCl [Flomax] 0.8 mg PO DAILY 04/11/14 12/19/19 Allopurinol [Zyloprim] 300 mg PO DAILY 03/03/16 12/19/19 Carvedilol [Coreg] 25 mg PO BID 04/25/18 12/19/19 Lisinopril [Zestril] 20 mg PO DAILY 04/25/18 12/19/19 Metolazone [Zaroxolyn] 5 mg PO DAILY 04/25/18 12/19/19 Naproxen 500 mg PO BID 04/25/18 12/19/19 Potassium Chloride 20 meq PO BID 04/25/18 12/19/19 Warfarin [Coumadin] 7.5 mg PO Q48H 04/25/18 12/19/19 Digoxin [Lanoxin] 125 mcg PO AC-SUPPER 06/09/18 12/19/19 HYDROcodone/APAP 5-325MG [[place] 1 tab PO Q6H PRN 12/19/19 12/19/19 5-325] Spironolactone [Aldactone] 25 mg PO DAILY 12/19/19 12/19/19 Warfarin [Coumadin] 10 mg PO Q48H 12/19/19 12/19/19 Allergies Allergy/AdvReac Type Severity Reaction Status Date / Time No Known Allergies Allergy Verified 12/19/19 21:47 Review of Systems ROS Other: All systems not noted in ROS Statement are negative. <Kailash Turner - Last Filed: 12/20/19 01:17> ROS Other: All systems not noted in ROS Statement are negative. <Josie Quintanilla - Last Filed: 12/23/19 02:04> ROS Statement: Those systems with pertinent positive or pertinent negative responses have been documented in the HPI. Past Medical History Past Medical History: Atrial Fibrillation, Heart Failure, COPD, Hypertension, Osteoarthritis (OA), Pneumonia, Prostate Disorder, Sleep Apnea/CPAP/BIPAP, Vascular Disorder Additional Past Medical History / Comment(s): HANDS TREMOR AND DIFFICULTY GRASPING GLASS., VARICOSE VEINS, SWELLING IN LOWER LEGS AND FEET, HX BRONCHITIS, GOUT, SINUS PROBLEMS AT TIMES., STATES SEEN IN PAST FOR DECREASED KIDNEY FUNCTION.,STATES SORE ON LEFT LOWER LEG-ABOVE ANKLE THAT IS DRAINING ., USES WALKER TO AMBULATE., SOME NUMBNESS toña LEG., PAST HX OF NON-HEALING SORES. History of Any Multi-Drug Resistant Organisms: MRSA Date of last positivie culture/infection: 08/30/12 MDRO Source:: LEG(not sure which) Past Surgical History: Heart Catheterization Additional Past Surgical History / Comment(s): CYST AND PARTIAL JAW REMOVED/SCREWS IN PLACE, ORAL SX AGE 8 TO BRING TEETH DOWN, BRONCHOSCOPY Past Anesthesia/Blood Transfusion Reactions: Previous Problems w/ Anesthesia Additional Past Anesthesia/Blood Transfusion Reaction / Comment(s): STATED DURING BRONCH STOPPED BREATHING, (brochoscopy done at [facility]-record on chart) Past Psychological History: Anxiety Smoking Status: Former smoker Past Alcohol Use History: None Reported Past Drug Use History: None Reported - Past Family History Father Family Medical History: Dementia Additional Family Medical History / Comment(s): MACULAR DEGENERATION Mother Family Medical History: Diabetes Mellitus Additional Family Medical History / Comment(s): ANEURYSMS, CATARACTS. <Kailash Turner P - Last Filed: 12/20/19 01:17> General Exam Limitations: no limitations General appearance: alert, in no apparent distress Head exam: Present: atraumatic, normocephalic, normal inspection Eye exam: Present: normal appearance, PERRL, EOMI. Absent: scleral icterus, conjunctival injection, periorbital swelling ENT exam: Present: normal exam, mucous membranes moist Neck exam: Present: normal inspection, full ROM. Absent: tenderness, meningismus, lymphadenopathy Respiratory exam: Present: normal lung sounds bilaterally. Absent: respiratory distress, wheezes, rales, rhonchi, stridor Cardiovascular Exam: Present: regular rate, normal rhythm, normal heart sounds. Absent: systolic murmur, diastolic murmur, rubs, gallop, clicks GI/Abdominal exam: Present: soft, normal bowel sounds. Absent: distended, tenderness, guarding, rebound, rigid Rectal exam: Present: normal inspection. 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 No erythema or lesions). Absent: testicular tenderness, urethral discharge, scrotal swelling, vertical testicular lie, circumcision Extremities exam: Present: other (Bilateral lower extremities tib-fib area shows very scaling skin with black necrotic lesion on the left lower leg) Neurological exam: Present: alert Psychiatric exam: Present: normal affect, normal mood <Kailash Turner P - Last Filed: 12/20/19 01:17> Course Vital Signs 12/19/19 12/19/19 12/19/19 19:54 20:00 20:30 Temperature 100.8 F H Pulse Rate 93 90 Pulse Rate [ Right Pulse Oximetery] Respiratory 18 20 18 Rate Blood Pressure 166/92 159/92 Blood Pressure [Right Arm] O2 Sat by Pulse 96 94 L Oximetry 12/19/19 12/20/19 12/20/19 21:00 05:00 10:46 Temperature 97.3 F L Pulse Rate 91 74 86 Pulse Rate [ Right Pulse Oximetery] Respiratory 18 19 16 Rate Blood Pressure 159/92 152/106 Blood Pressure [Right Arm] O2 Sat by Pulse 95 95 96 Oximetry 12/20/19 12/20/19 12/20/19 11:48 14:21 16:28 Temperature 99.3 F Pulse Rate 96 Pulse Rate [ 87 87 Right Pulse Oximetery] Respiratory 18 16 16 Rate Blood Pressure 157/97 Blood Pressure 146/98 [Right Arm] O2 Sat by Pulse 97 96 Oximetry 12/20/19 19:28 Temperature 98.9 F Pulse Rate 92 Pulse Rate [ Right Pulse Oximetery] Respiratory 18 Rate Blood Pressure 155/78 Blood Pressure [Right Arm] O2 Sat by Pulse 97 Oximetry Medical Decision Making - Lab Data Result diagrams: 12/19/19 20:16 12/19/19 20:16 <Kailash Turner - Last Filed: 12/20/19 01:17> - Lab Data Result diagrams: 12/22/19 06:54 12/22/19 06:54 <Josie Quintanilla - Last Filed: 12/23/19 02:04> - Medical Decision Making X-rays of the bilateral tib-fib shows no suspicious cortical destruction or periosteal reaction. Hip and pelvis x-ray was obtained given patient has had a fall on the left hip a few days ago. This shows no fracture or dislocation. Patient is able to ambulate on this. HPI and physical exam is documented. Of note patient does have significantly foul-smelling bilateral lower extremities that were wrapped with dirty gauze and old dressing. Patient does have some necrotic areas noted. Patient used to see wound care for this but has since been caring for his own wounds reporting that he rewraps his legs every few days. Patient did have a fever of 100.8 here in the emergency room. CBC was unremarkable. CMP shows mild hypokalemia of 3.2, replaced orally. Lactic acid somewhat elevated at 2.1 which is most likely consistent with dehydration given a BUN to creatinine ratio of 27. patient was only given a 500 mL bolus as he has a history of heart failure with an elevated BNP of 3690. Chest x-ray did show perihilar infiltrates however this is similar to old exam from July and likely chronic. Patient does not have cough or shortness of breath. Urinalysis is negative. Patient was started on Rocephin and azithromycin given bilateral lower show any cellulitis as he does have a history of MRSA. Discussed case with Dr. Bunch who recommends consulting infectious disease. (Kailash Turner) I was available for consultation in the emergency department. The history and physical exam were done by the midlevel provider. I was consulted for this patients care. I reviewed the case with the midlevel provider and based on their presentation of the patient, I agree with the assessment, medical decision making and plan of care as documented. Chart was dictated using [employer] dictation software. Attempts were made to correct any dictation errors however some typographical errors may persist. Patient was seen during a national formerly [facility] of emergency due to the Covid-19 pandemic. (Josie Quintanilla) - Lab Data Lab Results 12/19/19 12/19/19 12/19/19 Range/Units 20:16 20:16 20:16 WBC 4.9 (3.8-10.6) k/uL RBC 3.66 L (4.30-5.90) m/uL Hgb 10.1 L (13.0-17.5) gm/dL Hct 32.8 L (39.0-53.0) % MCV 89.7 (80.0-100.0) fL MCH 27.6 (25.0-35.0) pg MCHC 30.7 L (31.0-37.0) g/dL RDW 16.2 H (11.5-15.5) % Plt Count 147 L (150-450) k/uL Neutrophils % 88 % Lymphocytes % 4 % Monocytes % 5 % Eosinophils % 2 % Basophils % 0 % Neutrophils # 4.3 (1.3-7.7) k/uL Lymphocytes # 0.2 L (1.0-4.8) k/uL Monocytes # 0.2 (0-1.0) k/uL Eosinophils # 0.1 (0-0.7) k/uL Basophils # 0.0 (0-0.2) k/uL Hypochromasia Moderate Anisocytosis Slight PT 36.3 H (9.0-12.0) sec INR 3.7 H (<1.2) APTT 41.0 H (22.0-30.0) sec Sodium (137-145) mmol/L Potassium (3.5-5.1) mmol/L Chloride (98-107) mmol/L Carbon Dioxide (22-30) mmol/L Anion Gap mmol/L BUN (9-20) mg/dL Creatinine (0.66-1.25) mg/dL Est GFR (CKD-EPI)AfAm (>60 ml/min/1.73 sqM) Est GFR (CKD-EPI)NonAf (>60 ml/min/1.73 sqM) Glucose (74-99) mg/dL Lactic Ac Sepsis Rflx Plasma Lactic Acid Tava[place] (0.7-2.0) mmol/L Uric Acid (3.5-8.5) mg/dL Calcium (8.4-10.2) mg/dL Magnesium (1.6-2.3) mg/dL Total Bilirubin (0.2-1.3) mg/dL AST (17-59) U/L ALT (4-49) U/L Alkaline Phosphatase (38-126) U/L NT-Pro-B Natriuret Pep pg/mL Total Protein (6.3-8.2) g/dL Albumin (3.5-5.0) g/dL Urine Color Yellow Urine Appearance Clear (Clear) Urine pH 6.5 (5.0-8.0) Ur Specific [place] 1.018 (1.001-1.035) Urine Protein 2+ H (Negative) Urine Glucose (UA) Negative (Negative) Urine Ketones Negative (Negative) Urine Blood Negative (Negative) Urine Nitrite Negative (Negative) Urine Bilirubin Negative (Negative) Urine Urobilinogen 3.0 (<2.0) mg/dL Ur Leukocyte Esterase Negative (Negative) Urine RBC 1 (0-5) /hpf Urine WBC 1 (0-5) /hpf Ur Squamous Epith Cells <1 (0-4) /hpf Hyaline Casts 1 (0-2) /lpf Urine Mucus Rare H (None) /hpf Coronavirus (PCR) (Not Detected) 12/19/19 12/19/19 12/19/19 Range/Units 20:16 20:16 21:00 WBC (3.8-10.6) k/uL RBC (4.30-5.90) m/uL Hgb (13.0-17.5) gm/dL Hct (39.0-53.0) % MCV (80.0-100.0) fL MCH (25.0-35.0) pg MCHC (31.0-37.0) g/dL RDW (11.5-15.5) % Plt Count (150-450) k/uL Neutrophils % % Lymphocytes % % Monocytes % % Eosinophils % % Basophils % % Neutrophils # (1.3-7.7) k/uL Lymphocytes # (1.0-4.8) k/uL Monocytes # (0-1.0) k/uL Eosinophils # (0-0.7) k/uL Basophils # (0-0.2) k/uL Hypochromasia Anisocytosis PT (9.0-12.0) sec INR (<1.2) APTT (22.0-30.0) sec Sodium 137 (137-145) mmol/L Potassium 3.2 L (3.5-5.1) mmol/L Chloride 101 (98-107) mmol/L Carbon Dioxide 27 (22-30) mmol/L Anion Gap 9 mmol/L BUN 31 H (9-20) mg/dL Creatinine 1.11 (0.66-1.25) mg/dL Est GFR (CKD-EPI)AfAm 79 (>60 ml/min/1.73 sqM) Est GFR (CKD-EPI)NonAf 69 (>60 ml/min/1.73 sqM) Glucose 140 H (74-99) mg/dL Lactic Ac Sepsis Rflx Y Plasma Lactic Acid [place] 2.1 H* (0.7-2.0) mmol/L Uric Acid (3.5-8.5) mg/dL Calcium 8.3 L (8.4-10.2) mg/dL Magnesium (1.6-2.3) mg/dL Total Bilirubin 1.9 H (0.2-1.3) mg/dL AST 25 (17-59) U/L ALT 14 (4-49) U/L Alkaline Phosphatase 128 H (38-126) U/L NT-Pro-B Natriuret Pep pg/mL Total Protein 7.1 (6.3-8.2) g/dL Albumin 3.5 (3.5-5.0) g/dL Urine Color Urine Appearance (Clear) Urine pH (5.0-8.0) Ur Specific [place] (1.001-1.035) Urine Protein (Negative) Urine Glucose (UA) (Negative) Urine Ketones (Negative) Urine Blood (Negative) Urine Nitrite (Negative) Urine Bilirubin (Negative) Urine Urobilinogen (<2.0) mg/dL Ur Leukocyte Esterase (Negative) Urine RBC (0-5) /hpf Urine WBC (0-5) /hpf Ur Squamous Epith Cells (0-4) /hpf Hyaline Casts (0-2) /lpf Urine Mucus (None) /hpf Coronavirus (PCR) (Not Detected) 12/19/19 12/19/19 12/19/19 Range/Units 22:00 22:28 23:54 WBC (3.8-10.6) k/uL RBC (4.30-5.90) m/uL Hgb (13.0-17.5) gm/dL Hct (39.0-53.0) % MCV (80.0-100.0) fL MCH (25.0-35.0) pg MCHC (31.0-37.0) g/dL RDW (11.5-15.5) % Plt Count (150-450) k/uL Neutrophils % % Lymphocytes % % Monocytes % % Eosinophils % % Basophils % % Neutrophils # (1.3-7.7) k/uL Lymphocytes # (1.0-4.8) k/uL Monocytes # (0-1.0) k/uL Eosinophils # (0-0.7) k/uL Basophils # (0-0.2) k/uL Hypochromasia Anisocytosis PT (9.0-12.0) sec INR (<1.2) APTT (22.0-30.0) sec Sodium (137-145) mmol/L Potassium (3.5-5.1) mmol/L Chloride (98-107) mmol/L Carbon Dioxide (22-30) mmol/L Anion Gap mmol/L BUN (9-20) mg/dL Creatinine (0.66-1.25) mg/dL Est GFR (CKD-EPI)AfAm (>60 ml/min/1.73 sqM) Est GFR (CKD-EPI)NonAf (>60 ml/min/1.73 sqM) Glucose (74-99) mg/dL Lactic Ac Sepsis Rflx Plasma Lactic Acid [place] 0.9 (0.7-2.0) mmol/L Uric Acid (3.5-8.5) mg/dL Calcium (8.4-10.2) mg/dL Magnesium (1.6-2.3) mg/dL Total Bilirubin (0.2-1.3) mg/dL AST (17-59) U/L ALT (4-49) U/L Alkaline Phosphatase (38-126) U/L NT-Pro-B Natriuret Pep 3690 pg/mL Total Protein (6.3-8.2) g/dL Albumin (3.5-5.0) g/dL Urine Color Urine Appearance (Clear) Urine pH (5.0-8.0) Ur Specific [place] (1.001-1.035) Urine Protein (Negative) Urine Glucose (UA) (Negative) Urine Ketones (Negative) Urine Blood (Negative) Urine Nitrite (Negative) Urine Bilirubin (Negative) Urine Urobilinogen (<2.0) mg/dL Ur Leukocyte Esterase (Negative) Urine RBC (0-5) /hpf Urine WBC (0-5) /hpf Ur Squamous Epith Cells (0-4) /hpf Hyaline Casts (0-2) /lpf Urine Mucus (None) /hpf Coronavirus (PCR) Not Detected (Not Detected) 12/20/19 12/20/19 Range/Units 00:56 10:14 WBC (3.8-10.6) k/uL RBC (4.30-5.90) m/uL Hgb (13.0-17.5) gm/dL Hct (39.0-53.0) % MCV (80.0-100.0) fL MCH (25.0-35.0) pg MCHC (31.0-37.0) g/dL RDW (11.5-15.5) % Plt Count (150-450) k/uL Neutrophils % % Lymphocytes % % Monocytes % % Eosinophils % % Basophils % % Neutrophils # (1.3-7.7) k/uL Lymphocytes # (1.0-4.8) k/uL Monocytes # (0-1.0) k/uL Eosinophils # (0-0.7) k/uL Basophils # (0-0.2) k/uL Hypochromasia Anisocytosis PT (9.0-12.0) sec INR (<1.2) APTT (22.0-30.0) sec Sodium (137-145) mmol/L Potassium (3.5-5.1) mmol/L Chloride (98-107) mmol/L Carbon Dioxide (22-30) mmol/L Anion Gap mmol/L BUN (9-20) mg/dL Creatinine (0.66-1.25) mg/dL Est GFR (CKD-EPI)AfAm (>60 ml/min/1.73 sqM) Est GFR (CKD-EPI)NonAf (>60 ml/min/1.73 sqM) Glucose (74-99) mg/dL Lactic Ac Sepsis Rflx Plasma Lactic Acid [place] (0.7-2.0) mmol/L Uric Acid 5.8 (3.5-8.5) mg/dL Calcium (8.4-10.2) mg/dL Magnesium 1.3 L (1.6-2.3) mg/dL Total Bilirubin (0.2-1.3) mg/dL AST (17-59) U/L ALT (4-49) U/L Alkaline Phosphatase (38-126) U/L NT-Pro-B Natriuret Pep pg/mL Total Protein (6.3-8.2) g/dL Albumin (3.5-5.0) g/dL Urine Color Urine Appearance (Clear) Urine pH (5.0-8.0) Ur Specific [place] (1.001-1.035) Urine Protein (Negative) Urine Glucose (UA) (Negative) Urine Ketones (Negative) Urine Blood (Negative) Urine Nitrite (Negative) Urine Bilirubin (Negative) Urine Urobilinogen (<2.0) mg/dL Ur Leukocyte Esterase (Negative) Urine RBC (0-5) /hpf Urine WBC (0-5) /hpf Ur Squamous Epith Cells (0-4) /hpf Hyaline Casts (0-2) /lpf Urine Mucus (None) /hpf Coronavirus (PCR) (Not Detected) Disposition Is patient prescribed a controlled substance at d/c from ED?: No Time of Disposition: 22:49 <Kailash Turner P - Last Filed: 12/20/19 01:17> <Josie Quintanilla - Last Filed: 12/23/19 02:04> Clinical Impression: Bilateral lower leg cellulitis Disposition: ADMITTED IP TO THIS HOSP Condition: Fair
--- NOTE | 2019-12-19 21:25 | XR ---
EXAMINATION TYPE: XR Hip LT and AP Pelvis DATE OF EXAM: 12/19/2019 COMPARISON: NONE HISTORY: Pelvic and left hip pain and weakness. TECHNIQUE: A single AP view of the pelvis is obtained. Two views of the left hip are obtained. FINDINGS: There is no acute fracture/dislocation evident in the pelvis. Moderate axial joint space l oss with mild to moderate acetabular spurring bilateral hips. Suspect prior bone harvesting left thanh c crest. Sacroiliac joints maintained. Suspect some prosthetic calcification superior to pubic symphy sis. Right-sided pelvic phlebolith. Two views of left hip show no acute fracture or dislocation. No focal lytic or sclerotic lesion seen in the proximal left femur. The overlying soft tissue is unremarkable. IMPRESSION: As above.
--- NOTE | 2019-12-19 21:49 | XR ---
EXAMINATION TYPE: XR tibia fibula bilateral DATE OF EXAM: 12/19/2019 CLINICAL HISTORY: Bilateral lower leg wounds. Pain and swelling. TECHNIQUE: Two views of the bilateral legs are obtained. COMPARISON: None. FINDINGS: Moderate diffuse subcutaneous edema and soft tissue swelling bilaterally. There is no acute fracture or dislocation seen in either tibia or fibula. Degenerative changes both knees greatest med ial tibiofemoral compartment bilaterally presumed product of osteoarthritis. Ankle mortise symmetry m aintained bilaterally. No suspicious cortical destruction or periosteal reaction. IMPRESSION: As above.
[2019-12-19] MEDS ORDERED: POTASSIUM CHLORIDE ER 20 MEQ TAB.ER PO STA (22:03)
[2019-12-19] MEDS ORDERED: VANCOMYCIN IV PER PHARMACY 1 EACH MISC MISCELLANE PRN (22:06)
[2019-12-19] MEDS ORDERED: ACETAMINOPHEN TAB 325 MG TAB PO PRN (22:45)
[2019-12-19] MEDS ORDERED: SODIUM CHLORIDE 0.9% 1,000 ML IV SCH (22:45)
[2019-12-19] MEDS ORDERED: NALOXONE 0.4 MG/ML 1 ML VIAL IV PRN (22:45)
[2019-12-19] MEDS ORDERED: IBUPROFEN 400 MG TAB PO PRN (22:45)
[2019-12-19] MEDS ORDERED: VANCOMYCIN 1,750 MG in SODIUM CHLORIDE 0.9% 500 ML 500 ML IVPB ONE (23:00)
--- NOTE | 2019-12-20 07:38 | HP ---
HISTORY AND PHYSICAL DATE OF SERVICE: 12/19/2019. CHIEF COMPLAINT: Weakness and cellulitis. HISTORY OF PRESENT ILLNESS: This 69-year-old gentleman with a past medical history of multiple medical problems including bilateral leg cellulitis, history of atrial ablation, CHF, COPD, DJD, history of pneumonia was also being followed with dr jose wound care previously. Currently, the patient was not attending wound care for the last several months. The patient complains of weakness and the patient had some chills and the patient had significant ulceration of both legs, left more than the right with several excoriated areas and the patient came to [facility] admitted for further evaluation and treatment. There is no history of any headache, loss of consciousness or seizure. No history of chest pain or palpitation at this time. PAST MEDICAL HISTORY: History of atrial ablation, CHF, COPD, hypertension, DJD, history pneumonia, history of vascular disorder, history of cardiac catheterization. MEDICATIONS: Medications prior to admission, home medications are reviewed and include: 1. Coumadin 10 mg q.48 and 7.5 q.48. 2. Flomax. 3. Aldactone. 4. Naprosyn. 5. Zaroxolyn. 6. Zestril. 7. Imdur. 8. [place]. 9. Lanoxin. 10.Coreg. 11.Zyloprim. Doses are reviewed. ALLERGIES: None. FAMILY HISTORY: History of dementia, macular degeneration. SOCIAL HISTORY: History of smoking. No history of current smoking or alcohol intake. REVIEW OF SYSTEMS: ENT: Diminished hearing and diminished vision. CARDIOVASCULAR SYSTEM: No angina. RESPIRATORY SYSTEM: As mentioned earlier. GI: As mentioned earlier. : No dysuria. NERVOUS SYSTEM: No numbness or weakness. ALLERGY/IMMUNOLOGY: No asthma. MUSCULOSKELETAL: As mentioned earlier. HEMATOLOGY: No history of anemia. ENDOCRINE: As mentioned earlier. CONSTITUTIONAL: As mentioned earlier. DERMATOLOGY: As mentioned earlier. RHEUMATOLOGY: Negative. PSYCHIATRY: As mentioned earlier. PHYSICAL EXAMINATION: The patient is alert and oriented x3. Pulse is 91, blood pressure 159/92, respiration 18, temperature 100.8, pulse ox 94% on room air. HEENT: Conjunctivae are normal. Oral mucosa moist. NECK: No jugular venous distention. No carotid bruit. No lymph node enlargement. CARDIOVASCULAR: S1. S2 muffled. No S3, no S4. RESPIRATORY: Breath sounds diminished at the bases. A few scattered rhonchi and crackles. ABDOMEN: Soft, nontender. No mass palpable. LEGS: Bilateral significant cellulitis with excoriation discharge oozing and and redness present. NERVOUS SYSTEM: Higher functions as mentioned earlier. Moves all 4 limbs. Diffuse weakness. LYMPHATICS: No lymphadenopathy of the neck, axillae or groin. SKIN: No ulcer, rash or bleeding. JOINTS: No active deforming arthropathy. LABS: WBC 4.9, hemoglobin 10.1. INR 3.7. Sodium 137, potassium 3.2, and lactic acid 2.1. ASSESSMENT: 1. Acute bilateral leg cellulitis, acute on chronic with sepsis, present on admission. 2. Generalized weakness. 3. Gait dysfunction. 4. Anemia, normocytic. 5. Mild thrombocytopenia. 6. Mild Coumadin coagulopathy. 7. Mild hypokalemia. 8. Elevated bilirubin. 9. History of atrial fibrillation. 10.History of congestive heart failure. 11.History of chronic obstructive pulmonary disease. 12.Hypertension. 13.History of degenerative joint disease. 14.History of pneumonia. 15.History of sleep apnea. 16.History of hand tremors. 17.History of gout. 18.History of gait dysfunction. 19.History of MRSA. 20.History of anxiety. 21.Remote history of nicotine dependence. 22.FULL CODE. 23.Obesity with body mass index of 40.2. RECOMMENDATIONS AND DISCUSSION: This 69-year-old gentleman who presented with multiple complex medical issues, we will monitor the patient closely. Continue the current medications. Continue symptomatic treatment. Initiate vancomycin and Rocephin and otherwise Infectious Disease evaluation. Resume the home medication. Monitor blood sugars closely. PT/OT evaluation. Social work consultation for evaluation of the home situation. Possible ECF rehab. Overall, we will hold the Coumadin at this time and we will continue to monitor the PT/INR. Prognosis guarded because of multiple complex medical issues. Further recommendations to follow.reports to dr jose. MMGURVINDERL / HAYDEEN: [id number] / MTDD
[2019-12-20] MEDS: CARVEDILOL 12.5 MG TAB PO SCH ×2 (09:07→20:43)
[2019-12-20] MEDS: ISOSORBIDE MONONITRATE ER 30 MG TAB.ER.24H PO SCH (09:07)
[2019-12-20] MEDS: LISINOPRIL 20 MG TAB PO SCH (09:08)
[2019-12-20] MEDS: TAMSULOSIN 0.4 MG CAP.ER.24H PO SCH (09:08)
[2019-12-20] MEDS: ALLOPURINOL 300 MG TAB PO SCH (09:08)
[2019-12-20] MEDS: METOLAZONE 5 MG TAB PO SCH (09:09)
[2019-12-20] MEDS: SPIRONOLACTONE 25 MG TAB PO SCH (09:09)
[2019-12-20] MEDS: POTASSIUM CHLORIDE ER 20 MEQ TAB.ER PO SCH ×4 (09:09→20:43)
[2019-12-20] MEDS ORDERED: cefTRIAXone IN SWFI 1,000 MG/10 ML SYRINGE IVP SCH (11:00)
[2019-12-20] MEDS ORDERED: VANCOMYCIN 1,500 MG in SODIUM CHLORIDE 0.9% 250 ML IVPB SCH (12:00)
[2019-12-20] MEDS: VANCOMYCIN 1,750 MG in SODIUM CHLORIDE 0.9% 500 ML 500 ML IVPB SCH ×2 (12:35→23:15)
[2019-12-20] MEDS ORDERED: Potassium Replacement Protocol 1 EACH MISC MISCELLANE PRN (14:51)
[2019-12-20] MEDS ORDERED: Magnesium Replacement Protocol 1 EACH MISC MISCELLANE PRN (14:51)
[2019-12-20] MEDS ORDERED: IPRATROPIUM-ALBUTEROL 3 ML NEB INHALATION PRN (14:51)
[2019-12-20] MEDS: FUROSEMIDE 10 MG/ML 4 ML VIAL IV SCH ×2 (15:17→20:42)
[2019-12-20 16:05] LABS: ALT 15 U/L (4-49); AST 32 U/L (17-59); African American GFR (CKD) >90 (>60 ml/min/1.73 sqM); Albumin 3.4 g/dL (3.5-5.0); Alkaline Phosphatase 129 U/L (38-126); Anion Gap 9 mmol/L; Blood Urea Nitrogen 25 mg/dL (9-20); Calcium 8.1 mg/dL (8.4-10.2); Carbon Dioxide 30 mmol/L (22-30); Chloride 101 mmol/L (98-107); Glucose 115 mg/dL (74-99); Non-African American GFR(CKD) 80 (>60 ml/min/1.73 sqM); Potassium 3.4 mmol/L (3.5-5.1); Sodium 140 mmol/L (137-145); Total Bilirubin 1.8 mg/dL (0.2-1.3)
[2019-12-20] MEDS: DIGOXIN 125 MCG TAB PO SCH (16:14)
--- NOTE | 2019-12-20 19:04 | PN ---
PROGRESS NOTE DATE OF SERVICE: 12/20/2019 I am covering for Dr. Modi. This 69-year-old gentleman who was admitted with acute bilateral leg cellulitis with failure of outpatient treatment also had features of sepsis. The patient also was complaining of some shortness of breath. The chest x-ray that was done yesterday, which was reviewed personally by me, showed cardiomegaly with new bilateral perihilar edema and infiltrates. Otherwise, x-rays of the pelvis, hip and tibia/fibula were also done in the ER. The patient is started on broad-spectrum IV antibiotics. Infectious Disease is being consulted. The cultures are pending at this time. The chest x-ray showed some evidence of CHF, as mentioned. No chest pain. No palpitations. Past medical history reviewed. REVIEW OF SYSTEMS: CARDIOVASCULAR SYSTEM: As mentioned earlier. RESPIRATORY SYSTEM: As mentioned earlier. GI: No nausea, vomiting. : No dysuria or retention. NERVOUS SYSTEM: No numbness, weakness. CURRENT MEDICATIONS: Reviewed. They include: 1. Tylenol p.r.n. 2. [place] 5 mg q.6 p.r.n. 3. Zyloprim 300 mg daily. 4. Coreg 25 mg p.o. b.i.d. 5. Rocephin 1 gram daily. 6. Lanoxin 125 mcg. 7. Motrin. 8. Imdur ER 30 mg p.o. daily. 9. Zestril 20 mg. 10.Zaroxolyn 20 mg. 11.Narcan. 12.K-Dur 20 mEq p.o. b.i.d. 13.Aldactone 25 mg daily. 14.Flomax 0.8. 15.Vancomycin 1.75 mg. PHYSICAL EXAMINATION: Patient is alert and oriented x3. Pulse 74, blood pressure 151/66, respiration 19, temperature 97.6, pulse ox 94% on room air. HEENT: Conjunctivae normal. NECK: No jugular venous distention. CARDIOVASCULAR SYSTEM: S1, S2 muffled. RESPIRATORY SYSTEM: Breath sounds diminished at the bases. Bilateral scattered rhonchi and crackles. ABDOMEN: Soft. Obese. LEGS: Bilateral leg edema. NERVOUS SYSTEM: Diffusely weak. LABS: Hemoglobin 10.1, and INR is 3.7, magnesium 1.3. ASSESSMENT: 1. Acute bilateral leg cellulitis, acute on chronic, with sepsis, present on admission with failure of outpatient treatment. 2. Congestive heart failure, acute exacerbation; ejection fraction unknown. Possible diastolic dysfunction. 3. Gait dysfunction. 4. Generalized weakness. 5. Anemia, normocytic. 6. Mild thrombocytopenia. 7. Mild Coumadin coagulopathy. 8. Mild hypokalemia. 9. Elevated bilirubin. 10.History of atrial fibrillation. 11.History of congestive heart failure. 12.History of chronic obstructive pulmonary disease. 13.Hypertension. 14.History of degenerative joint disease. 15.History of pneumonia. 16.Sleep apnea. 17.History of hand tremors. 18.History of gout. 19.History of gait dysfunction. 20.History of methicillin-resistant Staphylococcus aeruginosa. 21.History of anxiety. 22.Remote history of nicotine dependence. 23.Obesity with body mass index of 40.2. 24.FULL CODE. RECOMMENDATIONS AND DISCUSSION: I recommend to continue current medications, continue with the monitoring, symptomatic treatment. Otherwise continue with broad-spectrum IV antibiotics. I would also recommend a 2D echo with Doppler to complete the workup. As mentioned earlier, x-rays were done and showed no acute fractures. PT/OT evaluation, possible ECF rehab. I would also recommend antibiotics and infectious disease evaluation. Guarded prognosis. Further recommendations to follow. MMODL / IJN: [id number] /
[2019-12-20] MEDS: IPRATROPIUM-ALBUTEROL 3 ML NEB INHALATION SCH (20:51)
[2019-12-21] MEDS: MAGNESIUM SULFATE-D5W PMX 1 GM in DEXTROSE/WATER 1 100ML.BAG IVPB SCH ×4 (02:14→23:39)
[2019-12-21] MEDS: IPRATROPIUM-ALBUTEROL 3 ML NEB INHALATION SCH ×3 (08:38→20:00)
[2019-12-21] MEDS: TAMSULOSIN 0.4 MG CAP.ER.24H PO SCH (09:18)
[2019-12-21] MEDS: LISINOPRIL 20 MG TAB PO SCH (09:18)
[2019-12-21] MEDS: ALLOPURINOL 300 MG TAB PO SCH (09:18)
[2019-12-21] MEDS: SPIRONOLACTONE 25 MG TAB PO SCH (09:18)
[2019-12-21] MEDS: ISOSORBIDE MONONITRATE ER 30 MG TAB.ER.24H PO SCH (09:18)
[2019-12-21] MEDS: METOLAZONE 5 MG TAB PO SCH (09:18)
[2019-12-21] MEDS: CARVEDILOL 12.5 MG TAB PO SCH ×2 (09:19→21:01)
[2019-12-21] MEDS: POTASSIUM CHLORIDE ER 20 MEQ TAB.ER PO SCH ×4 (09:19→21:01)
[2019-12-21] MEDS: FUROSEMIDE 10 MG/ML 4 ML VIAL IV SCH (09:19)
--- NOTE | 2019-12-21 09:34 | P.CONS ---
History of Present Illness - Reason for Consult Consult date: 12/20/19 Bilateral lower extremity cellulitis Requesting physician: Winter Bunch - Chief Complaint Weakness and chills and fever 1 day - History of Present Illness Patient is 69-year-old male with a past medical history significant for chronic bilateral lower extremity venous stasis ulcer for which the patient used to follow with [facility] center however recently the patient has been doing his own wound care patient presented to hospital with multiple symptoms including feeling weak and tired and did have some chills and apparently the patient did have a fever of 101F at home, the patient did have a significant swelling in bilateral lower extremity and he did have a dull aching pain to the leg with intensity 4-5 out of 10 and no radiation there is a superficial wound has some foul-smelling drainage on arrival to the patient did have temperature 100.8F, chest x-ray was mostly CHF pattern patient has been started on vancomycin and Rocephin admitted to the hospital infectious disease was consulted for further management of antibiotic therapy wound care team has been consulted for management of his lower extremity wound Review of Systems Positive point has been mentioned in the HPI rest of the systems are negative Past Medical History Past Medical History: Atrial Fibrillation, Heart Failure, COPD, Hypertension, Osteoarthritis (OA), Pneumonia, Prostate Disorder, Renal Disease, Sleep Apnea/CPAP/BIPAP, Vascular Disorder Additional Past Medical History / Comment(s): Nonischemic cardiomyopathy, cardiac valve disease, bronchitis, JIMMIE with Cpap and O2 at 2L at hs, past decreased renal function, arthritis bilateral hands/knees, gout bilateral feet, numbness bilateral legs/feet, carpal tunnel syndrome bilaterally, bilateral hand tremors, nonhealing bilateral lower leg wounds/cellulitis, varicosities, lower leg/pedal edema, PVD, BPH. History of Any Multi-Drug Resistant Organisms: MRSA Year Discovered:: 08/30/12 MDRO Source:: LEG(not sure which) Past Surgical History: Heart Catheterization Additional Past Surgical History / Comment(s): Split thickness skin graft to L leg, bronchoscopy, cyst and partial jaw removed/has screws, oral surgery age 8- too many teeth. Past Anesthesia/Blood Transfusion Reactions: Previous Problems w/ Anesthesia Additional Past Anesthesia/Blood Transfusion Reaction / Comm: STATED DURING BRONCH STOPPED BREATHING, (brochoscopy done at [facility]-record on chart) Smoking Status: Former smoker - Past Family History Father Family Medical History: Dementia, Eye Disorder Additional Family Medical History / Comment(s): MACULAR DEGENERATION Mother Family Medical History: Diabetes Mellitus, Eye Disorder, Vascular Disorder Additional Family Medical History / Comment(s): ANEURYSMS, CATARACTS. Medications and Allergies Home Medications Medication Instructions Recorded Confirmed Type Isosorbide Mononitrate ER [Imdur] 30 mg PO DAILY 04/11/14 12/19/19 History Tamsulosin HCl [Flomax] 0.8 mg PO DAILY 04/11/14 12/19/19 History Allopurinol [Zyloprim] 300 mg PO DAILY 03/03/16 12/19/19 History Carvedilol [Coreg] 25 mg PO BID 04/25/18 12/19/19 History Lisinopril [Zestril] 20 mg PO DAILY 04/25/18 12/19/19 History Metolazone [Zaroxolyn] 5 mg PO DAILY 04/25/18 12/19/19 History Naproxen 500 mg PO BID 04/25/18 12/19/19 History Potassium Chloride 20 meq PO BID 04/25/18 12/19/19 History Warfarin [Coumadin] 7.5 mg PO Q48H 04/25/18 12/19/19 History Digoxin [Lanoxin] 125 mcg PO AC-SUPPER 06/09/18 12/19/19 History HYDROcodone/APAP 5-325MG [[place] 1 tab PO Q6H PRN 12/19/19 12/19/19 History 5-325] Spironolactone [Aldactone] 25 mg PO DAILY 12/19/19 12/19/19 History Warfarin [Coumadin] 10 mg PO Q48H 12/19/19 12/19/19 History Allergies Allergy/AdvReac Type Severity Reaction Status Date / Time No Known Allergies Allergy Verified 12/19/19 21:47 Physical Exam Vitals: Vital Signs Temp Pulse Pulse Resp BP BP Pulse Ox 12/20/19 14:21 99.3 F 87 16 146/98 96 12/20/19 11:48 96 18 157/97 97 12/20/19 10:46 86 16 96 12/20/19 05:00 97.3 F L 74 19 152/106 95 12/19/19 21:00 91 18 159/92 95 12/19/19 20:30 90 18 159/92 94 L 12/19/19 20:00 20 12/19/19 19:54 100.8 F H 93 18 166/92 96 Intake and Output 12/20/19 12/20/19 12/20/19 06:59 14:59 22:59 Output Total 400 400 Balance -400 -400 Output: Urine 400 400 Other: Weight 127.006 kg GENERAL DESCRIPTION: An elderly male lying in bed, no distress. No tachypnea or accessory muscle of respiration use. HEENT: Shows Pallor , no scleral icterus. Oral mucous membrane is dry. No pharyngeal erythema or thrush NECK: Trachea central, no thyromegaly. LUNGS: Unlabored breathing. Decreased present at the base. No wheeze or crackle. HEART: S1, S2, regular rate and rhythm. No loud murmur ABDOMEN: Soft, no tenderness , guarding or rigidity, no organomegaly EXTREMITIES: Bilaterally extremity with significant swelling did have superficial ulceration and foul-smelling left big toe did have a black escher but no drainage SKIN: No rash, no masses palpable. NEUROLOGICAL: The patient is awake, alert, oriented x3, mood and affect normal. Results CBC & Chem 7: 12/19/19 20:16 12/20/19 15:33 Labs: Abnormal Lab Results - Last 24 Hours (Table) 12/19/19 12/19/19 12/19/19 Range/Units 20:16 20:16 20:16 RBC 3.66 L (4.30-5.90) m/uL Hgb 10.1 L (13.0-17.5) gm/dL Hct 32.8 L (39.0-53.0) % MCHC 30.7 L (31.0-37.0) g/dL RDW 16.2 H (11.5-15.5) % Plt Count 147 L (150-450) k/uL Lymphocytes # 0.2 L (1.0-4.8) k/uL PT 36.3 H (9.0-12.0) sec INR 3.7 H (<1.2) APTT 41.0 H (22.0-30.0) sec Potassium (3.5-5.1) mmol/L BUN (9-20) mg/dL Glucose (74-99) mg/dL Plasma Lactic Acid [place] (0.7-2.0) mmol/L Calcium (8.4-10.2) mg/dL Magnesium (1.6-2.3) mg/dL Total Bilirubin (0.2-1.3) mg/dL Alkaline Phosphatase (38-126) U/L Urine Protein 2+ H (Negative) Urine Mucus Rare H (None) /hpf 12/19/19 12/19/19 12/20/19 Range/Units 20:16 20:16 10:14 RBC (4.30-5.90) m/uL Hgb (13.0-17.5) gm/dL Hct (39.0-53.0) % MCHC (31.0-37.0) g/dL RDW (11.5-15.5) % Plt Count (150-450) k/uL Lymphocytes # (1.0-4.8) k/uL PT (9.0-12.0) sec INR (<1.2) APTT (22.0-30.0) sec Potassium 3.2 L (3.5-5.1) mmol/L BUN 31 H (9-20) mg/dL Glucose 140 H (74-99) mg/dL Plasma Lactic Acid [place] 2.1 H* (0.7-2.0) mmol/L Calcium 8.3 L (8.4-10.2) mg/dL Magnesium 1.3 L (1.6-2.3) mg/dL Total Bilirubin 1.9 H (0.2-1.3) mg/dL Alkaline Phosphatase 128 H (38-126) U/L Urine Protein (Negative) Urine Mucus (None) /hpf Assessment and Plan Assessment: 1- patient presented to hospital with fever and this patient who did have bilateral lower extremity venous stasis ulcer with a component of secondary cellulitis and will need to cover for both gram-positive as well as gram- negative pathogen in view of chronicity of his underlying condition (1) Bilateral lower leg cellulitis Current Visit: Yes Status: Acute Code(s): L03.116 - CELLULITIS OF LEFT LOWER LIMB SNOMED Code(s): 295142322 Plan: 1- Vancomycin pharmacy to dose target trough of 15 while watching his kidney function and Vanco trough closely and Rocephin to continue 2- local wound care per wound care team was has been consulted We will follow on clinical condition and cultures to further adjust medication if needed Thank you for this consultation will follow this patient with you Time with Patient: Greater than 30
[2019-12-21 11:55] LABS: Anisocytosis Slight; Basophils % (A) 1 %; Eosinophils # (A) 0.2 k/uL (0-0.7); Eosinophils % (A) 3 %; HCT 34.4 % (39.0-53.0); HGB 10.6 gm/dL (13.0-17.5); Hypochromasia Moderate; Lymphocytes # (A) 0.5 k/uL (1.0-4.8); Lymphocytes % (A) 10 %; MCH 27.7 pg (25.0-35.0); MCHC 30.9 g/dL (31.0-37.0); MCV 89.7 fL (80.0-100.0); Mean Platelet Volume 8.3; Monocytes # (A) 0.4 k/uL (0-1.0); Monocytes % (A) 8 %; Neutrophils # (A) 4.2 k/uL (1.3-7.7); Neutrophils % (A) 76 %; Platelet Count 157 k/uL (150-450); RBC 3.83 m/uL (4.30-5.90); RDW 16.3 % (11.5-15.5); WBC 5.5 k/uL (3.8-10.6)
[2019-12-21 12:02] LABS: INR 2.2 (<1.2); Prothrombin Time 21.8 sec (9.0-12.0)
[2019-12-21 12:13] LABS: Albumin 3.6 g/dL (3.5-5.0); Calcium 8.3 mg/dL (8.4-10.2); Magnesium 1.6 mg/dL (1.6-2.3); Potassium 3.5 mmol/L (3.5-5.1); Total Bilirubin 2.3 mg/dL (0.2-1.3); Total Protein 7.3 g/dL (6.3-8.2)
--- NOTE | 2019-12-21 12:57 | ECHOF ---
Referral Reason:chf MEASUREMENTS -------- HEIGHT: 180.3 cm WEIGHT: 127.0 kg BP: 164/84 IVSd: 2.1 cm (0.6 - 1.1) LVIDd: 3.0 cm (3.9 - 5.3) LVPWd: 2.2 cm (0.6 - 1.1) IVSs: 2.7 cm LVIDs: 1.8 cm LVPWs: 2.3 cm Ao Diam: 4.1 cm (2.0 - 3.7) AV Cusp: 2.4 cm (1.5 - 2.6) LA Diam: 5.6 cm (2.7 - 3.8) MV EXCURSION: 26.030 mm (> 18.000) MV EF SLOPE: 146 mm/s (70 - 150) EPSS: 1.0 cm RAP: 5.00 mmHg RVSP: 30.78 mmHg FINDINGS -------- Atrial fibrillation. This was a technically difficult study with suboptimal views. The left ventricular size is normal. There is severe concentric left ventricular hypertrophy. Ove rall left ventricular systolic function is mild-moderately impaired with, an EF between 40 - 45 %. Left ventricular fillimg pressure cannot be estimated due to Atrial fibrillation. The right ventricle is normal in size. The left atrium is mildly dilated. The right atrial size is normal. Lumason used Aortic valve is trileaflet and is mildly thickened. The mitral valve is normal. There is trace mitral regurgitation. The tricuspid valve appears structurally normal. Mild tricuspid regurgitation present. Right vent ricular systolic pressure is normal at < 35 mmHg. There is no pulmonic regurgitation present. The aortic root size is normal. IVC Not well visulized. There is no pericardial effusion. CONCLUSIONS -------- 1. Atrial fibrillation. 2. This was a technically difficult study with suboptimal views. 3. The left ventricular size is normal. 4. There is severe concentric left ventricular hypertrophy. 5. Overall left ventricular systolic function is mild-moderately impaired with, an EF between 40 - 45 %. 6. Left ventricular fillimg pressure cannot be estimated due to Atrial fibrillation. 7. The right ventricle is normal in size. 8. The left atrium is mildly dilated. 9. The right atrial size is normal. 10. Lumason used 11. Aortic valve is trileaflet and is mildly thickened. 12. The mitral valve is normal. 13. There is trace mitral regurgitation. 14. The tricuspid valve appears structurally normal. 15. Mild tricuspid regurgitation present. 16. Right ventricular systolic pressure is normal at < 35 mmHg. 17. There is no pulmonic regurgitation present. 18. The aortic root size is normal. 19. IVC Not well visulized. 20. There is no pericardial effusion. SURGICAL ASSISTANT: Dena Reddy RDCS
[2019-12-21] MEDS: VANCOMYCIN 1,750 MG in SODIUM CHLORIDE 0.9% 500 ML 500 ML IVPB SCH (13:09)
--- NOTE | 2019-12-21 16:30 | P.GSCN ---
History of Present Illness Consult date: 12/21/19 Reason for Consult: Wound care Requesting physician: Winter Bunch History of present illness: This is a 69-year-old chronically ill gentleman who follows on an outpatient basis with Dr. Modi. He has a previous medical history of atrial fibrillation on Coumadin for anticoagulation, congestive heart failure, COPD, hypertension and chronic venous stasis ulcers with previous MRSA infection. He presented to [facility] with complaints of fever, chills, weakness, and just feeling "not himself". He was noted to have a foul odor from his bilateral lower extremities which were both Kahlil wrapped. He did inform the emergency room that he [facility] care [facility] for his lower extremity wounds but hadn't attended in a while. States he has been caring for his legs himself and wrapping them every few days. Denies any other symptomatology, including no chest pain, shortness of breath, abdominal pain, nausea, vomiting, headache, or any other symptoms. Lower extremity chest x-rays demonstrated moderate diffuse subcutaneous edema and soft tissue swelling without acute fracture or dislocation. Temperature on admission was 100.8 Fahrenheit. White blood cell count 4.9, hemoglobin 10.1, INR 3.7, BUN 31, creatinine 1.11, lactic acid 2.1, BNP 3690, coronal virus PCR not detected. The patient was admitted for evaluation and treatment with consultation placed to infectious disease and wound care. Review of Systems Review of systems completed and was negative except as noted - Constitutional Reports chills, Reports fever, Reports weakness - Cardiovascular Reports leg edema - Integumentary Reports as per HPI, Reports darkening of skin, Reports dryness, Reports foot/leg ulcers, Reports wounds Past Medical History Past Medical History: Atrial Fibrillation, Heart Failure, COPD, Hypertension, Osteoarthritis (OA), Pneumonia, Prostate Disorder, Renal Disease, Sleep Apnea/CPAP/BIPAP, Vascular Disorder Additional Past Medical History / Comment(s): Nonischemic cardiomyopathy, cardiac valve disease, bronchitis, JIMMIE with Cpap and O2 at 2L at hs, past decreased renal function, arthritis bilateral hands/knees, gout bilateral feet, numbness bilateral legs/feet, carpal tunnel syndrome bilaterally, bilateral hand tremors, nonhealing bilateral lower leg wounds/cellulitis, varicosities, lower leg/pedal edema, PVD, BPH. History of Any Multi-Drug Resistant Organisms: MRSA Year Discovered:: 08/30/12 MDRO Source:: LEG(not sure which) Past Surgical History: Heart Catheterization Additional Past Surgical History / Comment(s): Split thickness skin graft to L leg, bronchoscopy, cyst and partial jaw removed/has screws, oral surgery age 8- too many teeth. Past Anesthesia/Blood Transfusion Reactions: Previous Problems w/ Anesthesia Additional Past Anesthesia/Blood Transfusion Reaction / Comm: STATED DURING BRONCH STOPPED BREATHING, (brochoscopy done at [facility]-record on chart) Smoking Status: Former smoker - Past Family History Father Family Medical History: Dementia, Eye Disorder Additional Family Medical History / Comment(s): MACULAR DEGENERATION Mother Family Medical History: Diabetes Mellitus, Eye Disorder, Vascular Disorder Additional Family Medical History / Comment(s): ANEURYSMS, CATARACTS. Medications and Allergies Home Medications Medication Instructions Recorded Confirmed Type Isosorbide Mononitrate ER [Imdur] 30 mg PO DAILY 04/11/14 12/19/19 History Tamsulosin HCl [Flomax] 0.8 mg PO DAILY 04/11/14 12/19/19 History Allopurinol [Zyloprim] 300 mg PO DAILY 03/03/16 12/19/19 History Carvedilol [Coreg] 25 mg PO BID 04/25/18 12/19/19 History Lisinopril [Zestril] 20 mg PO DAILY 04/25/18 12/19/19 History Metolazone [Zaroxolyn] 5 mg PO DAILY 04/25/18 12/19/19 History Naproxen 500 mg PO BID 04/25/18 12/19/19 History Potassium Chloride 20 meq PO BID 04/25/18 12/19/19 History Warfarin [Coumadin] 7.5 mg PO Q48H 04/25/18 12/19/19 History Digoxin [Lanoxin] 125 mcg PO AC-SUPPER 06/09/18 12/19/19 History HYDROcodone/APAP 5-325MG [[place] 1 tab PO Q6H PRN 12/19/19 12/19/19 History 5-325] Spironolactone [Aldactone] 25 mg PO DAILY 12/19/19 12/19/19 History Warfarin [Coumadin] 10 mg PO Q48H 12/19/19 12/19/19 History Allergies Allergy/AdvReac Type Severity Reaction Status Date / Time No Known Allergies Allergy Verified 12/19/19 21:47 Surgical - Exam Vital Signs Temp Pulse Resp BP Pulse Ox 100.8 F H 93 18 166/92 96 12/19/19 19:54 12/19/19 19:54 12/19/19 19:54 12/19/19 19:54 12/19/19 19:54 - General no distress, no pain, chronically ill, obese - Eyes PERRL, normal ocular movement - ENT decreased hearing - Neck no masses, no bruits, trachea midline - Respiratory Lungs sounds diminished bilaterally with few scattered rhonchi at the bases. Respirations even, nonlabored. Currently on 3 L nasal cannula with oxygen saturation 98%. - Cardiovascular S1, S2 present. Regular rate and rhythm. Bilateral lower extremity edema present. - Abdomen Abdomen: soft, non tender, bowel sounds - Genitourinary Deferred - Rectum Deferred - Integumentary Skin to bilateral lower extremities dry, flaky. Two wounds present to left lower extremity. First, on the pretibial area measuring 6.5 x 6.5 cm, reddened with serous oozing present on dressing. Second, on the lateral aspect of the left leg measuring 5 x 5 cm, reddened with serous oozing present on dressing. - Musculoskeletal normal posture - Psychiatric oriented to time, oriented to person, oriented to place, speech is normal Results - Labs 12/21/19 10:37 12/21/19 10:37 Abnormal Lab Results - Last 24 Hours (Table) 12/20/19 12/21/19 12/21/19 Range/Units 15:33 10:37 10:37 RBC 3.83 L (4.30-5.90) m/uL Hgb 10.6 L (13.0-17.5) gm/dL Hct 34.4 L (39.0-53.0) % MCHC 30.9 L (31.0-37.0) g/dL RDW 16.3 H (11.5-15.5) % Lymphocytes # 0.5 L (1.0-4.8) k/uL PT (9.0-12.0) sec INR (<1.2) Potassium 3.4 L (3.5-5.1) mmol/L Chloride 92 L (98-107) mmol/L Carbon Dioxide 36 H (22-30) mmol/L BUN 25 H 28 H (9-20) mg/dL Creatinine 1.29 H (0.66-1.25) mg/dL Glucose 115 H 157 H (74-99) mg/dL Calcium 8.1 L 8.3 L (8.4-10.2) mg/dL Total Bilirubin 1.8 H 2.3 H (0.2-1.3) mg/dL Alkaline Phosphatase 129 H 138 H (38-126) U/L Albumin 3.4 L (3.5-5.0) g/dL 12/21/19 Range/Units 10:37 RBC (4.30-5.90) m/uL Hgb (13.0-17.5) gm/dL Hct (39.0-53.0) % MCHC (31.0-37.0) g/dL RDW (11.5-15.5) % Lymphocytes # (1.0-4.8) k/uL PT 21.8 H (9.0-12.0) sec INR 2.2 H (<1.2) Potassium (3.5-5.1) mmol/L Chloride (98-107) mmol/L Carbon Dioxide (22-30) mmol/L BUN (9-20) mg/dL Creatinine (0.66-1.25) mg/dL Glucose (74-99) mg/dL Calcium (8.4-10.2) mg/dL Total Bilirubin (0.2-1.3) mg/dL Alkaline Phosphatase (38-126) U/L Albumin (3.5-5.0) g/dL Microbiology - Last 24 Hours (Table) 12/19/19 20:30 Blood Culture - Preliminary Blood No Growth after 24 hours Diabetes panel 12/20/19 12/21/19 Range/Units 15:33 10:37 Sodium 140 137 (137-145) mmol/L Potassium 3.4 L 3.5 (3.5-5.1) mmol/L Chloride 101 92 L (98-107) mmol/L Carbon Dioxide 30 36 H (22-30) mmol/L BUN 25 H 28 H (9-20) mg/dL Creatinine 0.98 1.29 H (0.66-1.25) mg/dL Glucose 115 H 157 H (74-99) mg/dL Calcium 8.1 L 8.3 L (8.4-10.2) mg/dL AST 32 32 (17-59) U/L ALT 15 18 (4-49) U/L Alkaline Phosphatase 129 H 138 H (38-126) U/L Total Protein 7.0 7.3 (6.3-8.2) g/dL Albumin 3.4 L 3.6 (3.5-5.0) g/dL Calcium panel 12/20/19 12/21/19 Range/Units 15:33 10:37 Calcium 8.1 L 8.3 L (8.4-10.2) mg/dL Albumin 3.4 L 3.6 (3.5-5.0) g/dL Pituitary panel 12/20/19 12/21/19 Range/Units 15:33 10:37 Sodium 140 137 (137-145) mmol/L Potassium 3.4 L 3.5 (3.5-5.1) mmol/L Chloride 101 92 L (98-107) mmol/L Carbon Dioxide 30 36 H (22-30) mmol/L BUN 25 H 28 H (9-20) mg/dL Creatinine 0.98 1.29 H (0.66-1.25) mg/dL Glucose 115 H 157 H (74-99) mg/dL Calcium 8.1 L 8.3 L (8.4-10.2) mg/dL Adrenal panel 12/20/19 12/21/19 Range/Units 15:33 10:37 Sodium 140 137 (137-145) mmol/L Potassium 3.4 L 3.5 (3.5-5.1) mmol/L Chloride 101 92 L (98-107) mmol/L Carbon Dioxide 30 36 H (22-30) mmol/L BUN 25 H 28 H (9-20) mg/dL Creatinine 0.98 1.29 H (0.66-1.25) mg/dL Glucose 115 H 157 H (74-99) mg/dL Calcium 8.1 L 8.3 L (8.4-10.2) mg/dL Total Bilirubin 1.8 H 2.3 H (0.2-1.3) mg/dL AST 32 32 (17-59) U/L ALT 15 18 (4-49) U/L Alkaline Phosphatase 129 H 138 H (38-126) U/L Total Protein 7.0 7.3 (6.3-8.2) g/dL Albumin 3.4 L 3.6 (3.5-5.0) g/dL - Imaging Chest x-ray: report reviewed, image reviewed Additional studies: Lower extremity x-rays reviewed Assessment and Plan Assessment: 1. Lower extremity cellulitis 2. Chronic venous stasis ulcers with previous MRSA infection to the lower extremities 3. History of atrial fibrillation on Coumadin for anticoagulation 4. History of congestive heart failure 5. History of COPD 6. History of hypertension Plan: The patient was seen and examined. Chart/diagnostics reviewed, including previous notes from Dr. Calles, Dr. Cadet, and Dr. Bower. Aquacel silver dressing to be applied to open wound with Kahlil wraps from toes to knees to be applied every other day. Bilateral lower extremities should be elevated above the level of the heart at all times except when eating or toileting. Antibiotic management per Dr. Calles. Upon discharge patient should follow in the wound care center for further treatment. Medical management of other comorbidities per primary care service. Thank you Dr. Bunch for this consult. Please call us with any further questions. Time with Patient: Greater than 30
[2019-12-21] MEDS: DIGOXIN 125 MCG TAB PO SCH (18:42)
[2019-12-21] MEDS: HYDROcodone/APAP 5-325MG 1 EACH TAB PO PRN (21:19)
--- NOTE | 2019-12-21 22:19 | PN ---
PROGRESS NOTE I am covering for Dr. Modi. DATE OF SERVICE: 12/21/2019 This 69-year-old gentleman who was admitted with acute bilateral leg cellulitis is being closely monitored at this time. The patient is followed by Cardiology as well as Surgery. The ejection fraction was found to be 40% to 45%. Infectious Disease also saw the patient. The patient was also seen by Wound Care. No chest pain. No palpitations. No fever. The patient had previous MRSA grown from the culture. PHYSICAL EXAMINATION: Alert and oriented x2. Pulse is 56, blood pressure 131/77, respirations 16, temperature 98.4, pulse ox 98% on room air. HEENT: Conjunctivae normal. NECK: No jugular venous distention. CARDIOVASCULAR SYSTEM: S1, S2 muffled. RESPIRATORY SYSTEM: Breath sounds diminished at the bases. A few scattered rhonchi. ABDOMEN: Soft, non-tender. LEGS: Bilateral significant ulcerations and cellulitis and wound present. LABS: WBC 5.4, hemoglobin 10.6, creatinine is 1.29. Bilirubin is 2.3. ASSESSMENT: 1. Acute bilateral leg cellulitis, acute on chronic, with sepsis, present on admission with failure of outpatient treatment. 2. Congestive heart failure, acute exacerbation, with acute on chronic systolic dysfunction, ejection fraction 40% to 45%. 3. Gait dysfunction. 4. Generalized weakness. 5. Anemia, normocytic. 6. Mild thrombocytopenia. 7. Mild Coumadin coagulopathy. 8. Mild acute renal failure, possibly diuretic-induced. 9. Mild hypokalemia. 10.Elevated bilirubin. 11.History of atrial fibrillation, chronic. 12.History of congestive heart failure. 13.History of chronic obstructive pulmonary disease. 14.Hypertension. 15.History of degenerative joint disease. 16.History of pneumonia. 17.History of sleep apnea. 18.History of hand tremors. 19.History of gout. 20.History of gait dysfunction. 21.History of methicillin-resistant Staphylococcus aeruginosa. 22.History of anxiety. 23.Remote history of nicotine dependence. 24.Obesity with body mass index of 40.2. 25.FULL CODE. RECOMMENDATIONS AND DISCUSSION: I recommend to continue current medications, continue with the monitoring, symptomatic treatment. the diuretics. Continue the antibiotics. Closely follow with Infectious Disease and Wound Care. Guarded prognosis because of the multiple complex medical issues. Two-D echo reviewed. The cultures are so far negative. Further recommendations to follow. MMODL / IJN: [id number] / CED
--- NOTE | 2019-12-21 22:55 | PN ---
PROGRESS NOTE DATE OF SERVICE: 12/21/2019 REASON FOR FOLLOWUP: Bilateral lower extremity venostasis ulcers and cellulitis. INTERVAL HISTORY: The patient is currently afebrile. The patient is breathing comfortably. Denies having any chest pain or shortness of breath or cough. No nausea, vomiting, abdominal pain or diarrhea. PHYSICAL EXAMINATION: Blood pressure 131/77, pulse of 63, temperature 98.4. He is 98% on room air. General description is an elderly male up in the chair in no distress. RESPIRATORY SYSTEM: Unlabored breathing. Clear to auscultation anteriorly. HEART: S1, S2. Regular rate and rhythm. ABDOMEN: Soft. No tenderness. LABS: Hemoglobin is 10.6, white count of . BUN of 28, creatinine 1.29. DIAGNOSTIC IMPRESSION AND PLAN: Patient with bilateral lower extremity venostasis ulcers with secondary cellulitis. Patient is currently covered with vancomycin and Rocephin; to continue. Local care per Surgery. Continue with supportive care. MMODL / IJN: [id number] /
[2019-12-22] MEDS: MAGNESIUM SULFATE-D5W PMX 1 GM in DEXTROSE/WATER 1 100ML.BAG IVPB SCH (00:55)
[2019-12-22] MEDS ORDERED: VANCOMYCIN TROUGH DUE 1 EACH MISC MISCELLANE ONE (06:00)
[2019-12-22] MEDS ORDERED: VANCOMYCIN 1,750 MG in SODIUM CHLORIDE 0.9% 500 ML 500 ML IVPB SCH (07:00)
[2019-12-22 07:11] LABS: Anisocytosis Slight; Basophils % (A) 1 %; Eosinophils # (A) 0.6 k/uL (0-0.7); Eosinophils % (A) 11 %; HCT 32.3 % (39.0-53.0); HGB 10.2 gm/dL (13.0-17.5); Hypochromasia Moderate; Lymphocytes # (A) 0.7 k/uL (1.0-4.8); Lymphocytes % (A) 13 %; MCH 28.6 pg (25.0-35.0); MCHC 31.8 g/dL (31.0-37.0); MCV 89.9 fL (80.0-100.0); Mean Platelet Volume 9.4; Monocytes # (A) 0.4 k/uL (0-1.0); Monocytes % (A) 9 %; Neutrophils # (A) 3.3 k/uL (1.3-7.7); Neutrophils % (A) 64 %; Platelet Count 178 k/uL (150-450); Poikilocytosis Slight; RBC 3.59 m/uL (4.30-5.90); RDW 16.4 % (11.5-15.5); WBC 5.2 k/uL (3.8-10.6)
[2019-12-22 07:28] LABS: INR 1.7 (<1.2); Prothrombin Time 16.5 sec (9.0-12.0)
[2019-12-22] MEDS: METOLAZONE 5 MG TAB PO SCH (07:57)
[2019-12-22] MEDS: POTASSIUM CHLORIDE ER 20 MEQ TAB.ER PO SCH ×4 (07:57→20:15)
[2019-12-22] MEDS: TAMSULOSIN 0.4 MG CAP.ER.24H PO SCH (07:57)
[2019-12-22] MEDS: CARVEDILOL 12.5 MG TAB PO SCH ×2 (07:57→20:15)
[2019-12-22] MEDS: LISINOPRIL 20 MG TAB PO SCH (07:58)
[2019-12-22] MEDS: ALLOPURINOL 300 MG TAB PO SCH (07:58)
[2019-12-22] MEDS: ISOSORBIDE MONONITRATE ER 30 MG TAB.ER.24H PO SCH (07:58)
[2019-12-22] MEDS: SPIRONOLACTONE 25 MG TAB PO SCH (07:58)
[2019-12-22] MEDS: IPRATROPIUM-ALBUTEROL 3 ML NEB INHALATION SCH ×3 (08:09→20:04)
[2019-12-22 08:11] LABS: Calcium 7.9 mg/dL (8.4-10.2); Magnesium 1.9 mg/dL (1.6-2.3); Potassium 3.2 mmol/L (3.5-5.1)
[2019-12-22] MEDS ORDERED: Potassium Replacement Protocol 1 EACH MISC MISCELLANE PRN (09:05)
--- NOTE | 2019-12-22 15:32 | PN ---
PROGRESS NOTE DATE OF SERVICE: 12/22/2019 REASON FOR FOLLOWUP: Bilateral lower extremity venostasis ulcer and cellulitis. INTERVAL HISTORY: Patient is currently afebrile, has been breathing comfortably. Denies having any chest pain, shortness of breath or cough. No abdominal pain and denies any pain to the lower extremity. PHYSICAL EXAMINATION: Blood pressure 132/82 with a pulse of 82, temperature 97.9. He is 99% on 3 L nasal cannula. General description is an elderly male up in the chair in no distress. Respiratory system: Unlabored breathing, clear to auscultation anteriorly. Heart S1, S2. Regular rate and rhythm. Abdomen soft, no tenderness. Legs are currently wrapped up. No obvious drainage on the dressing. LABS: Hemoglobin is 10 ( ), BUN of 31, creatinine 1.01. Blood culture negative. No local cultures were done. DIAGNOSTIC IMPRESSION AND PLAN: Patient with bilateral lower extremity venous stasis ulcer with secondary cellulitis. The patient is currently responding to Rocephin and vancomycin, to continue. Local care to continue per Surgery and monitor clinical course closely. MMODL / IJN: [id number] /
[2019-12-22] MEDS: DIGOXIN 125 MCG TAB PO SCH (17:50)
[2019-12-22] MEDS: VANCOMYCIN 1,500 MG in SODIUM CHLORIDE 0.9% 250 ML IVPB SCH (20:21)
--- NOTE | 2019-12-22 20:23 | PN ---
PROGRESS NOTE DATE OF SERVICE: 12/22/2019 I am covering for Dr. Modi. This 69 -year-old gentleman admitted with acute bilateral leg cellulitis is improving significantly. No chest pain. No palpitations. No fever. A 2D echo with Doppler showed ejection fraction 40-45 percent. No chest pain. No palpitations. No fever. The creatinine stabilized, it improved to 1.01. PHYSICAL EXAMINATION: Alert and oriented x3. Pulse 51. Blood pressure 147/76, respiration 17, temperature 97.7, pulse ox 100 percent on 2 L. HEENT: Conjunctivae normal. NECK: No JVD. CARDIOVASCULAR: S1, S2 muffled. RESPIRATORY: Breath sounds diminished in the bases. No rhonchi. No crackles. ABDOMEN is soft, nontender. No mass palpable. LEGS are no edema. No swelling. NERVOUS SYSTEM: No focal deficits. LEGS bilateral leg cellulitis and crusted lesions also present. LAB STUDIES: WBC 12.2, hemoglobin 10.2, INR 1.2, sodium 135, potassium 3.2. ASSESSMENT: 1. Acute bilateral leg cellulitis, acute on chronic with sepsis, present on admission with failure of outpatient treatment. 2. Congestive heart failure acute exacerbation with acute on chronic systolic dysfunction, ejection fraction 40-45 percent. 3. Gait dysfunction. 4. Generalized weakness. 5. Anemia, normocytic. 6. Mild Coumadin coagulopathy. 7. Mild acute renal failure possibly diuretic-induced. 8. Mild hypokalemia. 9. Elevated bilirubin. 10.History of atrial fibrillation, chronic. 11.History of congestive heart failure. 12.History of chronic obstructive pulmonary disease. 13.Hypertension. 14.History of degenerative joint disease. 15.History of pneumonia. 16.History of sleep apnea. 17.History of hand tremors. 18.History of gout. 19.History of gait dysfunction. 20.History of MRSA. 21.History of anxiety. 22.Remote history of nicotine dependence. 23.Obesity with body mass index 40.2. 24.FULL CODE. RECOMMENDATIONS AND DISCUSSION: Recommend to continue current medications, monitoring and symptomatic treatment. Otherwise, at this time, I recommend potassium supplementation. Continue to monitor. Prognosis guarded. Further recommendations to follow. MMODL / IJN: [id number] /
[2019-12-23] MEDS: IPRATROPIUM-ALBUTEROL 3 ML NEB INHALATION SCH ×3 (07:03→20:27)
[2019-12-23 07:22] LABS: Calcium 8.1 mg/dL (8.4-10.2); Potassium 3.8 mmol/L (3.5-5.1)
[2019-12-23 07:29] LABS: Anisocytosis Slight; Basophils % (A) 0 %; Eosinophils # (A) 0.6 k/uL (0-0.7); Eosinophils % (A) 12 %; HCT 33.5 % (39.0-53.0); HGB 10.5 gm/dL (13.0-17.5); Hypochromasia Marked; Lymphocytes # (A) 0.8 k/uL (1.0-4.8); Lymphocytes % (A) 15 %; MCH 28.7 pg (25.0-35.0); MCHC 31.4 g/dL (31.0-37.0); MCV 91.5 fL (80.0-100.0); Mean Platelet Volume 8.2; Monocytes # (A) 0.4 k/uL (0-1.0); Monocytes % (A) 7 %; Neutrophils # (A) 3.3 k/uL (1.3-7.7); Neutrophils % (A) 62 %; Platelet Count 176 k/uL (150-450); RBC 3.66 m/uL (4.30-5.90); RDW 16.3 % (11.5-15.5); WBC 5.3 k/uL (3.8-10.6)
[2019-12-23 07:57] LABS: INR 1.4 (<1.2); Prothrombin Time 14.2 sec (9.0-12.0)
[2019-12-23] MEDS: VANCOMYCIN 1,500 MG in SODIUM CHLORIDE 0.9% 250 ML IVPB SCH ×2 (08:21→20:35)
[2019-12-23] MEDS: ISOSORBIDE MONONITRATE ER 30 MG TAB.ER.24H PO SCH (09:54)
[2019-12-23] MEDS: METOLAZONE 5 MG TAB PO SCH (09:55)
[2019-12-23] MEDS: CARVEDILOL 12.5 MG TAB PO SCH ×2 (09:55→20:35)
[2019-12-23] MEDS: POTASSIUM CHLORIDE ER 20 MEQ TAB.ER PO SCH ×2 (09:55→20:35)
[2019-12-23] MEDS: LISINOPRIL 20 MG TAB PO SCH (09:55)
[2019-12-23] MEDS: TAMSULOSIN 0.4 MG CAP.ER.24H PO SCH (09:55)
[2019-12-23] MEDS: SPIRONOLACTONE 25 MG TAB PO SCH (09:55)
[2019-12-23] MEDS: ALLOPURINOL 300 MG TAB PO SCH (09:55)
[2019-12-23] MEDS: DIGOXIN 125 MCG TAB PO SCH (17:45)
--- NOTE | 2019-12-23 23:04 | PN ---
PROGRESS NOTE DATE OF SERVICE: 12/23/2019 I am covering for Dr. Modi. This 69-year-old gentleman admitted with acute bilateral leg cellulitis is being closely monitored. No chest pain. No palpitations. No fever. PHYSICAL EXAMINATION: On exam, alert and oriented x3. Pulse 65, blood pressure 155/82, respiration 18, temperature, 98 degrees, pulse ox 93% on room air. HEENT: Conjunctivae normal. NECK: No jugular venous distention. CARDIOVASCULAR: S1, S2 muffled. RESPIRATORY: Breath sounds diminished at the bases. A few scattered rhonchi and crackles. ABDOMEN: Soft. LEGS: Bilateral crusted lesions. NERVOUS SYSTEM: No focal deficits. LAB STUDIES: WBC 5.3, hemoglobin 10.5, sodium 138, potassium 3.8. ASSESSMENT: 1. Acute bilateral leg cellulitis, acute on chronic, with sepsis, present on admission with failure of outpatient treatment. 2. Congestive heart failure acute exacerbation with acute on chronic systolic dysfunction, ejection fraction 40% to 45%. 3. Gait dysfunction. 4. Generalized weakness. 5. Anemia, normocytic. 6. Mild Coumadin coagulopathy. 7. Mild acute renal failure possibly diuretic-induced. 8. Mild hypokalemia. 9. Elevated bilirubin. 10.History of atrial fibrillation chronic. 11.History of congestive heart failure. 12.History of chronic obstructive pulmonary disease. 13.Hypertension. 14.History of degenerative joint disease. 15.History of pneumonia. 16.History of sleep apnea. 17.History of hand tremors. 18.History of gout. 19.History of gait dysfunction. 20.History of MRSA. 21.History of anxiety. 22.Remote history of nicotine dependence. 23.Obesity with body mass index of 40.2. 24.FULL CODE. RECOMMENDATIONS AND DISCUSSION: Recommendation to continue current medications, continues with monitoring and symptomatic treatment. Otherwise at this time I recommend repeat labs. Continue with monitor. The patient is off diuretics at this time. I would start on digoxin. I would also check a digoxin level in the morning and Dr. Modi will follow. Prognosis guarded. Further recommendations to follow. MMODL / IJN: [id number] /
--- NOTE | 2019-12-24 04:45 | PN ---
PROGRESS NOTE DATE OF SERVICE: 12/23/2019 REASON FOR FOLLOWUP: Bilateral lower extremity venous stasis ulcer and cellulitis. INTERVAL HISTORY: Patient is currently afebrile. The patient is breathing comfortably. The patient denies having any chest pain or shortness of breath or cough. Overall pain and discomfort to the leg area has improved. PHYSICAL EXAMINATION: On examination, blood pressure 150/68 with a pulse of 67, temperature 97.9. He is 99% on room air. General description is an elderly male up in the chair in no distress. RESPIRATORY SYSTEM: Unlabored breathing, clear to auscultation anteriorly. HEART: S1, S2. Regular rate and rhythm. ABDOMEN: Soft, no tenderness. LEGS: Currently wrapped up. mentioned, the legs looked better at the time of dressing changes today. LABS: Hemoglobin is 10.5, white count 5.3, BUN of 29, creatinine 1.05. Blood culture has been negative. DIAGNOSTIC IMPRESSION AND PLAN: Patient has bilateral lower extremity venous stasis ulcer with secondary cellulitis. Patient to continue with current antibiotic in the form of vancomycin and Rocephin. Re- evaluate the wound tomorrow to determine his discharge antibiotics. Local care to continue with compression dressing and continue with supportive care. MMODL / IJN: [id number] /
[2019-12-24] MEDS: VANCOMYCIN 1,500 MG in SODIUM CHLORIDE 0.9% 250 ML IVPB SCH ×2 (06:57→18:30)
--- NOTE | 2019-12-24 08:23 | P.PN ---
Subjective Progress Note Date: 12/24/19 Principal diagnosis: Cellulitis. This is a continue progress on a 69-year-old white male with atrial fibrillation who is coming in for lower 70 cellulitis. The patient feels much better since admission. He is agreeable to ECF [place] type placement area no fever or chills stated. Weakness is otherwise noted. Appetite is nominal. Objective - Vital Signs Vital signs: Vital Signs Temp 98.3 F 12/24/19 00:30 Pulse 74 12/24/19 00:30 Resp 20 12/24/19 04:00 BP 156/88 12/24/19 00:30 Pulse Ox 99 12/24/19 00:30 Intake & Output 12/23/19 12/24/19 12/24/19 18:59 06:59 18:59 Intake Total 1050 Balance 1050 Intake: Intake, IV Titration 600 Amount Vancomycin 1,500 mg In 500 Sodium Chloride 0.9% 250 ml @ 125 mls/hr IVPB Q12H JULIEN Rx#:[id number] cefTRIAXone 1 gm In 100 Sodium Chloride 0.9% 50 ml @ 100 mls/hr IVPB Q12HR JULIEN Rx#:[id number] Oral 450 Other: Voiding Method Urinal Urinal # Voids 2 2 - Constitutional General appearance: Present: obese - EENT Eyes: Absent: abnormal pupil - Neck Neck: Absent: lymphadenopathy - Respiratory Respiratory: bilateral: CTA - Cardiovascular Rhythm: regular Heart sounds: normal: S1, S2 Abnormal Heart Sounds: Absent: S3 Gallop - Gastrointestinal General gastrointestinal: Present: soft. Absent: tenderness - Integumentary Integumentary: Present: cellulitis - Labs CBC & Chem 7: 12/23/19 06:49 12/23/19 06:49 Labs: Microbiology - Last 24 Hours (Table) 12/19/19 20:30 Blood Culture - Preliminary Blood No Growth after 96 hours Assessment and Plan (1) Bilateral lower leg cellulitis Current Visit: Yes Status: Acute Code(s): L03.116 - CELLULITIS OF LEFT LOWER LIMB SNOMED Code(s): 252004139 (2) Atrial fibrillation Current Visit: No Status: Acute Code(s): I48.91 - UNSPECIFIED ATRIAL FIBRILLATION SNOMED Code(s): 66177045 (3) Venous stasis ulcer of left lower extremity Current Visit: No Status: Acute Code(s): I83.029 - VARICOSE VEINS OF LEFT LOWER EXTREMITY W ULCER OF UNSP SITE SNOMED Code(s): 359548697 Plan: Continue current antibiotic treatment. Discharge planning for ECF placement. Check CBC and CMP in a.m. We'll continue to follow. Hopefully discharge in next 24-48 hours. Appreciate ID input.
[2019-12-24] MEDS: IPRATROPIUM-ALBUTEROL 3 ML NEB INHALATION SCH ×3 (08:36→20:34)
[2019-12-24 08:58] LABS: Anisocytosis Slight; Basophils % (A) 1 %; Eosinophils # (A) 0.7 k/uL (0-0.7); Eosinophils % (A) 13 %; HCT 36.6 % (39.0-53.0); HGB 11.3 gm/dL (13.0-17.5); Hypochromasia Marked; Lymphocytes # (A) 0.8 k/uL (1.0-4.8); Lymphocytes % (A) 14 %; MCH 28.6 pg (25.0-35.0); MCHC 30.9 g/dL (31.0-37.0); MCV 92.4 fL (80.0-100.0); Monocytes # (A) 0.4 k/uL (0-1.0); Monocytes % (A) 6 %; Neutrophils # (A) 3.6 k/uL (1.3-7.7); Neutrophils % (A) 64 %; Platelet Count 190 k/uL (150-450); RBC 3.95 m/uL (4.30-5.90); RDW 16.4 % (11.5-15.5); WBC 5.6 k/uL (3.8-10.6)
[2019-12-24 09:01] LABS: African American GFR (CKD) >90 (>60 ml/min/1.73 sqM); Anion Gap 6 mmol/L; Blood Urea Nitrogen 25 mg/dL (9-20); Calcium 8.7 mg/dL (8.4-10.2); Carbon Dioxide 33 mmol/L (22-30); Chloride 98 mmol/L (98-107); Digoxin 0.6 ng/mL; Glucose 124 mg/dL (74-99); Non-African American GFR(CKD) 82 (>60 ml/min/1.73 sqM); Potassium 4.1 mmol/L (3.5-5.1); Sodium 137 mmol/L (137-145)
[2019-12-24] MEDS: ISOSORBIDE MONONITRATE ER 30 MG TAB.ER.24H PO SCH (09:07)
[2019-12-24] MEDS: SPIRONOLACTONE 25 MG TAB PO SCH (09:07)
[2019-12-24] MEDS: LISINOPRIL 20 MG TAB PO SCH (09:07)
[2019-12-24] MEDS: CARVEDILOL 12.5 MG TAB PO SCH ×2 (09:08→20:19)
[2019-12-24] MEDS: ALLOPURINOL 300 MG TAB PO SCH (09:08)
[2019-12-24] MEDS: POTASSIUM CHLORIDE ER 20 MEQ TAB.ER PO SCH ×2 (09:08→20:19)
[2019-12-24] MEDS: TAMSULOSIN 0.4 MG CAP.ER.24H PO SCH (09:08)
[2019-12-24] MEDS: METOLAZONE 5 MG TAB PO SCH (09:08)
--- NOTE | 2019-12-24 13:20 | PN ---
PROGRESS NOTE DATE OF SERVICE: 12/24/2019. REASON FOR FOLLOW UP: Bilateral lower extremity venostasis ulcer and cellulitis. INTERVAL HISTORY: Patient is currently afebrile. The patient is breathing comfortably. The patient denies having any chest pain. No shortness of breath or cough. No nausea, vomiting, abdominal pain, or any worsening pain to the leg. PHYSICAL EXAMINATION: Blood pressure 171/91 with pulse of 75, temperature 97.8. He is 100% 2 L nasal cannula. General description is an elderly male lying in bed in no distress. Respiratory system: Unlabored breathing clear to auscultation anteriorly. Heart S1, S2. Regular rate and rhythm. Abdomen soft, no tenderness. Legs are currently wrapped up. RN mentioned dressing was changed last night. Overall legs look better with no drainage on the dressing. DIAGNOSTIC IMPRESSION AND PLAN: Patient bilateral extremity venous stasis ulcer with secondary cellulitis. The patient is currently covered with vancomycin, Rocephin. We will reevaluate the wound tomorrow to determine discharge antibiotics. Continue with current local wound care and continue supportive care. MMODL / IJN: [id number] /
[2019-12-24] MEDS: DIGOXIN 125 MCG TAB PO SCH (17:00)
[2019-12-25] MEDS ORDERED: VANCOMYCIN TROUGH DUE 1 EACH MISC MISCELLANE ONE (06:00)
[2019-12-25 06:53] LABS: Anisocytosis Slight; Basophils % (A) 1 %; Eosinophils # (A) 0.7 k/uL (0-0.7); Eosinophils % (A) 11 %; HCT 34.6 % (39.0-53.0); HGB 10.9 gm/dL (13.0-17.5); Hypochromasia Marked; Lymphocytes % (A) 16 %; MCH 28.9 pg (25.0-35.0); MCHC 31.5 g/dL (31.0-37.0); MCV 91.8 fL (80.0-100.0); Mean Platelet Volume 8.1; Monocytes # (A) 0.4 k/uL (0-1.0); Monocytes % (A) 7 %; Neutrophils # (A) 4.3 k/uL (1.3-7.7); Neutrophils % (A) 65 %; Platelet Count 197 k/uL (150-450); RBC 3.76 m/uL (4.30-5.90); RDW 16.6 % (11.5-15.5); WBC 6.6 k/uL (3.8-10.6)
[2019-12-25 07:05] LABS: ALT 16 U/L (4-49); AST 25 U/L (17-59); African American GFR (CKD) >90 (>60 ml/min/1.73 sqM); Albumin 3.1 g/dL (3.5-5.0); Alkaline Phosphatase 129 U/L (38-126); Anion Gap 8 mmol/L; Blood Urea Nitrogen 30 mg/dL (9-20); Calcium 8.5 mg/dL (8.4-10.2); Carbon Dioxide 29 mmol/L (22-30); Chloride 101 mmol/L (98-107); Glucose 120 mg/dL (74-99); Non-African American GFR(CKD) 88 (>60 ml/min/1.73 sqM); Potassium 4.4 mmol/L (3.5-5.1); Sodium 138 mmol/L (137-145); Total Bilirubin 1.1 mg/dL (0.2-1.3); Total Protein 6.9 g/dL (6.3-8.2)
[2019-12-25] MEDS: VANCOMYCIN 1,500 MG in SODIUM CHLORIDE 0.9% 250 ML IVPB SCH (07:14)
--- NOTE | 2019-12-25 08:19 | P.PN ---
Subjective Principal diagnosis: Cellulitis. This is a continue progress on a 69-year-old white male with atrial fibrillation who is coming in for extremity lower cellulitis. The patient feels much better since admission. He is agreeable to ECF [place] type placement area no fever or chills stated. Weakness is otherwise noted. Appetite is nominal. We are essentially awaiting discharge planning element. Appreciate ID input. Objective - Vital Signs Vital signs: Vital Signs Temp 98.0 F 12/25/19 01:09 Pulse 54 L 12/25/19 01:09 Resp 18 12/25/19 03:11 BP 156/103 12/25/19 02:08 Pulse Ox 100 12/25/19 01:09 Intake & Output 12/24/19 12/25/19 12/25/19 18:59 06:59 18:59 Output Total 600 150 Balance -600 -150 Output: Urine 600 150 Other: Voiding Method Urinal # Voids 1 1 - Constitutional General appearance: Present: obese - EENT Eyes: Absent: abnormal pupil - Neck Neck: Absent: lymphadenopathy - Respiratory Respiratory: bilateral: CTA - Cardiovascular Rhythm: irregularly irregular Heart sounds: normal: S1, S2 Abnormal Heart Sounds: Absent: S3 Gallop - Gastrointestinal General gastrointestinal: Present: soft. Absent: tenderness - Integumentary Integumentary: Absent: normal, rash - Labs CBC & Chem 7: 12/25/19 06:27 12/25/19 06:27 Labs: Abnormal Lab Results - Last 24 Hours (Table) 12/24/19 12/24/19 12/25/19 Range/Units 07:47 07:47 06:27 RBC 3.95 L 3.76 L (4.30-5.90) m/uL Hgb 11.3 L 10.9 L (13.0-17.5) gm/dL Hct 36.6 L 34.6 L (39.0-53.0) % MCHC 30.9 L (31.0-37.0) g/dL RDW 16.4 H 16.6 H (11.5-15.5) % Lymphocytes # 0.8 L (1.0-4.8) k/uL Carbon Dioxide 33 H (22-30) mmol/L BUN 25 H (9-20) mg/dL Glucose 124 H (74-99) mg/dL Alkaline Phosphatase (38-126) U/L Albumin (3.5-5.0) g/dL 12/25/19 Range/Units 06:27 RBC (4.30-5.90) m/uL Hgb (13.0-17.5) gm/dL Hct (39.0-53.0) % MCHC (31.0-37.0) g/dL RDW (11.5-15.5) % Lymphocytes # (1.0-4.8) k/uL Carbon Dioxide (22-30) mmol/L BUN 30 H (9-20) mg/dL Glucose 120 H (74-99) mg/dL Alkaline Phosphatase 129 H (38-126) U/L Albumin 3.1 L (3.5-5.0) g/dL Microbiology - Last 24 Hours (Table) 12/19/19 20:30 Blood Culture - Preliminary Blood No Growth after 120 hours Assessment and Plan (1) Bilateral lower leg cellulitis Current Visit: Yes Status: Acute Code(s): L03.116 - CELLULITIS OF LEFT LOWER LIMB SNOMED Code(s): 233059469 (2) Atrial fibrillation Current Visit: No Status: Acute Code(s): I48.91 - UNSPECIFIED ATRIAL FIBRILLATION SNOMED Code(s): 99694898 (3) Venous stasis ulcer of left lower extremity Current Visit: No Status: Acute Code(s): I83.029 - VARICOSE VEINS OF LEFT LOWER EXTREMITY W ULCER OF UNSP SITE SNOMED Code(s): 476514124 Plan: Continue current antibiotic treatment. Discharge planning for ECF placement. Check CBC and CMP in a.m. We'll continue to follow. Hopefully discharge in next 24-48 hours. Appreciate ID input.
[2019-12-25] MEDS: IPRATROPIUM-ALBUTEROL 3 ML NEB INHALATION SCH ×3 (08:36→19:22)
[2019-12-25] MEDS: ISOSORBIDE MONONITRATE ER 30 MG TAB.ER.24H PO SCH (09:13)
[2019-12-25] MEDS: LISINOPRIL 20 MG TAB PO SCH (09:14)
[2019-12-25] MEDS: METOLAZONE 5 MG TAB PO SCH (09:14)
[2019-12-25] MEDS: ALLOPURINOL 300 MG TAB PO SCH (09:14)
[2019-12-25] MEDS: POTASSIUM CHLORIDE ER 20 MEQ TAB.ER PO SCH ×2 (09:14→20:41)
[2019-12-25] MEDS: SPIRONOLACTONE 25 MG TAB PO SCH (09:14)
[2019-12-25] MEDS: CARVEDILOL 12.5 MG TAB PO SCH ×2 (09:14→20:41)
[2019-12-25] MEDS: TAMSULOSIN 0.4 MG CAP.ER.24H PO SCH (09:17)
[2019-12-25 11:59] LABS: INR 1.3 (<1.2); Prothrombin Time 12.7 sec (9.0-12.0)
--- NOTE | 2019-12-25 14:13 | PN ---
PROGRESS NOTE DATE OF SERVICE: 12/25/2019 REASON FOR FOLLOWUP: Bilateral lower extremity venostasis ulcer and cellulitis. INTERVAL HISTORY: Patient is currently afebrile. The patient is breathing comfortably. Denies having any chest pain or shortness of breath or cough. Overall pain and discomfort has improved and no diarrhea. On examination, his vital signs are stable. General description is an elderly male lying in chair in no distress. Respiratory system: Unlabored breathing. Clear to auscultation anteriorly. Heart S1, S2. Regular rate and rhythm. Abdomen soft, no tenderness. Legs wounds have dried out and redness has improved. DIAGNOSTIC IMPRESSION AND PLAN: Patient with bilateral lower extremity venous stasis ulcer, secondary to cellulitis. Overall improvement with cellulitis. Antibiotic switched over to cefazolin with a plan to finish therapy with oral Keflex and local wound care with dry Aquacel Silver dressing followed by Kahlil wrap along with a moisturizing cream to the dry skin. Discussed in detail with the nurse. MMODL / IJN: [id number] /
[2019-12-25] MEDS: HYDROcodone/APAP 5-325MG 1 EACH TAB PO PRN (14:44)
[2019-12-25] MEDS: DIGOXIN 125 MCG TAB PO SCH (17:07)
[2019-12-25] MEDS ORDERED: WARFARIN 10 MG TAB PO SCH (18:00)
[2019-12-26] MEDS: IPRATROPIUM-ALBUTEROL 3 ML NEB INHALATION SCH ×2 (07:18→12:13)
[2019-12-26] MEDS: ISOSORBIDE MONONITRATE ER 30 MG TAB.ER.24H PO SCH (07:38)
[2019-12-26] MEDS: SPIRONOLACTONE 25 MG TAB PO SCH (07:38)
[2019-12-26] MEDS: TAMSULOSIN 0.4 MG CAP.ER.24H PO SCH (07:38)
[2019-12-26] MEDS: CARVEDILOL 12.5 MG TAB PO SCH (07:38)
[2019-12-26] MEDS: METOLAZONE 5 MG TAB PO SCH (07:39)
[2019-12-26] MEDS: LISINOPRIL 20 MG TAB PO SCH (07:39)
[2019-12-26] MEDS: POTASSIUM CHLORIDE ER 20 MEQ TAB.ER PO SCH (07:39)
[2019-12-26] MEDS: ALLOPURINOL 300 MG TAB PO SCH (07:39)
[2019-12-26 07:48] VITALS: BP 172/94; PULSE 81; RESP 17; TEMP 98.1
[2019-12-26 08:05] LABS: Anisocytosis Slight; Basophils % (A) 0 %; Eosinophils # (A) 0.7 k/uL (0-0.7); Eosinophils % (A) 11 %; HCT 35.5 % (39.0-53.0); HGB 10.7 gm/dL (13.0-17.5); Hypochromasia Moderate; INR 1.3 (<1.2); Lymphocytes # (A) 0.9 k/uL (1.0-4.8); Lymphocytes % (A) 13 %; MCH 27.1 pg (25.0-35.0); MCHC 30.1 g/dL (31.0-37.0); MCV 90.2 fL (80.0-100.0); Monocytes # (A) 0.4 k/uL (0-1.0); Monocytes % (A) 6 %; Neutrophils # (A) 4.5 k/uL (1.3-7.7); Neutrophils % (A) 68 %; Platelet Count 196 k/uL (150-450); Prothrombin Time 12.8 sec (9.0-12.0); RBC 3.93 m/uL (4.30-5.90); RDW 16.9 % (11.5-15.5); WBC 6.6 k/uL (3.8-10.6)
[2019-12-26 08:14] LABS: ALT 15 U/L (4-49); AST 25 U/L (17-59); African American GFR (CKD) >90 (>60 ml/min/1.73 sqM); Albumin 3.3 g/dL (3.5-5.0); Alkaline Phosphatase 133 U/L (38-126); Anion Gap 7 mmol/L; Blood Urea Nitrogen 27 mg/dL (9-20); Calcium 8.7 mg/dL (8.4-10.2); Carbon Dioxide 30 mmol/L (22-30); Chloride 99 mmol/L (98-107); Glucose 121 mg/dL (74-99); Non-African American GFR(CKD) 82 (>60 ml/min/1.73 sqM); Potassium 4.2 mmol/L (3.5-5.1); Sodium 136 mmol/L (137-145); Total Bilirubin 1.1 mg/dL (0.2-1.3)
--- NOTE | 2019-12-26 08:29 | P.DS ---
Providers Date of admission: 12/20/19 15:10 Attending physician: Wiliam Modi Consults: 12/19/19 22:46 Consult Physician Routine Consulting Provider: Vianca Calles Consult Reason/Comments: cellulitis of bilat lower extremities Do you want consulting provider notified?: Yes 12/20/19 14:44 Consult Physician Routine Consulting Provider: Laz Cadet Consult Reason/Comments: wound care Do you want consulting provider notified?: Yes Primary care physician: Wiliam Modi - Discharge Diagnosis(es) (1) Bilateral lower leg cellulitis Current Visit: Yes Status: Acute (2) Atrial fibrillation Current Visit: No Status: Acute (3) Venous stasis ulcer of left lower extremity Current Visit: No Status: Acute Hospital Course: This is a discharge summary a 69-year-old white male with H fibrillation with known bilateral lower 70 cellulitis. Patient was stabilized with appropriate. The patient will now be switched to Doxil sober with Keflex and discharged to ECF for appropriate wound care. The patient is now stable without significant white blood cell count elevation. Slight anemia is noted. We will DC once cleared by infectious disease. Patient Condition at Discharge: Fair Plan - Discharge Summary Discharge Rx Participant: No New Discharge Prescriptions: New Warfarin [Coumadin] 7.5 mg PO Q48H tab Warfarin [Coumadin] 10 mg PO Q48H tab Ipratropium-Albuterol Nebulize [Duoneb 0.5 mg-3 mg/3 ml Soln] 3 ml INHALATION RT-TID ml Ipratropium-Albuterol Nebulize [Duoneb 0.5 mg-3 mg/3 ml Soln] 3 ml INHALATION RT-TID PRN ml PRN Reason: Shortness Of Breath Or Wheezing Ibuprofen [Motrin] 400 mg PO Q6HR PRN tab PRN Reason: Mild Pain Or Fever > 100.5 Cephalexin [Keflex] 500 mg PO Q6HR 10 Days #40 cap Continue Tamsulosin HCl [Flomax] 0.8 mg PO DAILY Isosorbide Mononitrate ER [Imdur] 30 mg PO DAILY Allopurinol [Zyloprim] 300 mg PO DAILY Potassium Chloride 20 meq PO BID Warfarin [Coumadin] 7.5 mg PO Q48H Naproxen 500 mg PO BID Carvedilol [Coreg] 25 mg PO BID Metolazone [Zaroxolyn] 5 mg PO DAILY Lisinopril [Zestril] 20 mg PO DAILY Digoxin [Lanoxin] 125 mcg PO AC-SUPPER Warfarin [Coumadin] 10 mg PO Q48H Spironolactone [Aldactone] 25 mg PO DAILY HYDROcodone/APAP 5-325MG [[place] 5-325] 1 tab PO Q6H PRN #60 tab PRN Reason: Pain Discharge Medication List Isosorbide Mononitrate ER [Imdur] 30 mg PO DAILY 04/11/14 [History] Tamsulosin HCl [Flomax] 0.8 mg PO DAILY 04/11/14 [History] Allopurinol [Zyloprim] 300 mg PO DAILY 03/03/16 [History] Carvedilol [Coreg] 25 mg PO BID 04/25/18 [History] Lisinopril [Zestril] 20 mg PO DAILY 04/25/18 [History] Metolazone [Zaroxolyn] 5 mg PO DAILY 04/25/18 [History] Naproxen 500 mg PO BID 04/25/18 [History] Potassium Chloride 20 meq PO BID 04/25/18 [History] Warfarin [Coumadin] 7.5 mg PO Q48H 04/25/18 [History] Digoxin [Lanoxin] 125 mcg PO AC-SUPPER 06/09/18 [History] Spironolactone [Aldactone] 25 mg PO DAILY 12/19/19 [History] Warfarin [Coumadin] 10 mg PO Q48H 12/19/19 [History] Cephalexin [Keflex] 500 mg PO Q6HR 10 Days #40 cap 12/26/19 [Rx] HYDROcodone/APAP 5-325MG [M[place] 5-325] 1 tab PO Q6H PRN #60 tab 12/26/19 [Rx] Ibuprofen [Motrin] 400 mg PO Q6HR PRN tab 12/26/19 [Rx] Ipratropium-Albuterol Nebulize [Duoneb 0.5 mg-3 mg/3 ml Soln] 3 ml INHALATION RT-TID ml 12/26/19 [Rx] Ipratropium-Albuterol Nebulize [Duoneb 0.5 mg-3 mg/3 ml Soln] 3 ml INHALATION RT-TID PRN ml 12/26/19 [Rx] Warfarin [Coumadin] 7.5 mg PO Q48H tab 12/26/19 [Rx] Warfarin [Coumadin] 10 mg PO Q48H tab 12/26/19 [Rx] Follow up Appointment(s)/Referral(s): Wiliam Modi MD [Primary Care Provider] - 1-2 days [facility], [NON-STAFF] - Wound Healing,Center [NON-STAFF] - 1 Week Discharge Disposition: TRANSFER TO SNF/ECF
--- NOTE | 2019-12-26 09:31 | CDI ---
Documentation Clarification Form Date: 12/26/2019 08:54:06 AM From: Sheron Wild RN, CCDS Admit Date: 12/20/2019 03:10:00 PM Patient Name: Lowell Barraza Visit Number: [id number] Discharge Date: ATTENTION: The Clinical Documentation Specialists (CDI) and [facility] Coding Staff appreciate your assistance in clarifying documentation. Please respond to the clarification below the line at the bottom and electronically sign. The CDI & [facility] Coding staff will review the response and follow-up if needed. Please note: Queries are made part of the Legal Health Record. If you have any questions, please contact the author of this message via ITS. Dr. Wiliam Modi The patient presented with the following: bilateral lower extremity with foul odor, and weakness. Sepsis is documented in the H&P and subsequent progress notes 12/19-12/22, but not in the discharge summary. Please clarify if Sepsis is ruled in or out? History/Risk Factors: Atrial Fibrillation, Heart Failure, COPD, Hypertension, Varicose veins, Non-healing sores left lower leg, Clinical Indicators: 69-year-old male who present to ED with foul odor from bilateral lower extremity. He reports a fever of 101 at home. The bilateral lower extremities tib-fib area shows very scaling skin with black necrotic lesions on the left lower leg per ED assessment on 12/18. 12/18 Vital signs 166/92 93 18 100.8 12/18 WBC 4.9 12/18 Lactic acid: 2.1 12/18 Blood cultures: Negative 12/19 x-ray bilateral tib-fib: No suspicious cortical destruction or periosteal reaction. Treatment: Rocephin 1 gm iv q12 12/19-12/24 Kefzol 2 gm iv q 8 hrs start 12/24 Vamcomycin 1,500 mg q12 Pharm to dose 12/19 ID Consult: Patient presented to hospital with fever who did have bilateral lower extremity venous stasis ulcer with a component of secondary cellulitis. In your professional opinion, please clarify if these findings signify one of the following conditions, whether the condition is POA, and cause, if known: Condition Sepsis ruled out-This is the correct choice. SIRS is correct Sepsis ruled in, secondary to bilateral legs cellulitis and POA Other, please specify Unable to determine SIRS Criteria (2 or more of the following may indicate SIRS): -Temperature < 96.8F (36C) or > 101.0F (38.3C) -Heart Rate > 90 bpm -Respiratory Rate > 20 breaths/min or PaCO2 < 32 mmHg -White Blood Cell Count > 12,000 or < 4,000 cells/mm3 or > 10% bands -Lactate >2.0 mmol/L (>4.0 is equivalent to septic shock) (Last Revision: September 2017) MTDD
--- NOTE | 2019-12-26 13:19 | PN ---
PROGRESS NOTE DATE OF SERVICE: 12/26/2019 REASON FOR FOLLOWUP: Bilateral lower extremity venostasis ulcer and cellulitis. INTERVAL HISTORY: Patient is currently afebrile. The patient is breathing comfortably. Denies any chest pain, cough, nausea, no abdominal pain or discomfort to the leg with dressing changes. PHYSICAL EXAMINATION: Blood pressure 132/94 with a pulse of 64, temperature 98.1. He is 94% on room air. General description: The patient is an elderly male lying in bed in no distress. Respiratory system: Unlabored breathing. Clear to auscultation anteriorly. Heart S1, S2. Regular rate and rhythm. Abdomen soft, no tenderness. LABS: Hemoglobin is 10.7, white count 6.6, BUN of 27, creatinine 0.96. Blood culture has been negative. DIAGNOSTIC IMPRESSION AND PLAN: Patient with bilateral lower extremity venous stasis ulcer with secondary cellulitis. Overall improvement on cefazolin. Finish therapy with oral Keflex 500 mg t.i.d. for about a week. Local care with dry Aquacel dressing and Kahlil wrap and close outpatient followup. MMODL / IJN: [id number] /
[2019-12-26] MEDS ORDERED: WARFARIN 7.5 MG TAB PO SCH (18:00)
== END 2019-12-26 14:38 | disposition home health service (06) | DRG 602 ==
LOC: EC 19:51 → 4SSUR 23:48 → OBSVTOIN 12-20 15:10 → 4SSUR 12-20 16:13
PROVIDERS: ADMIT Family Medicine; ATTEND Family Medicine
DX: L03.115 Cellulitis of right lower limb (principal); I50.23 Acute on chronic systolic (congestive) heart failure; Z68.41 Body mass index [BMI] 40.0-44.9, adult; I48.20 Chronic atrial fibrillation, unspecified; I42.8 Other cardiomyopathies; N17.9 Acute kidney failure, unspecified; R65.10 Systemic inflammatory response syndrome (SIRS) of non-infectious origin without acute organ dysfunction; L03.116 Cellulitis of left lower limb; E66.9 Obesity, unspecified; N40.0 Benign prostatic hyperplasia without lower urinary tract symptoms; G47.30 Sleep apnea, unspecified; I73.9 Peripheral vascular disease, unspecified; J44.9 Chronic obstructive pulmonary disease, unspecified; T45.515A Adverse effect of anticoagulants, initial encounter; R26.9 Unspecified abnormalities of gait and mobility; D64.9 Anemia, unspecified; D69.6 Thrombocytopenia, unspecified; I87.2 Venous insufficiency (chronic) (peripheral); E87.6 Hypokalemia; R53.1 Weakness; M19.041 Primary osteoarthritis, right hand; M19.042 Primary osteoarthritis, left hand; F41.9 Anxiety disorder, unspecified; I11.0 Hypertensive heart disease with heart failure; M10.9 Gout, unspecified; T50.2X5A Adverse effect of carbonic-anhydrase inhibitors, benzothiadiazides and other diuretics, initial encounter; Z11.59 Encounter for screening for other viral diseases; Z79.899 Other long term (current) drug therapy; Z83.3 Family history of diabetes mellitus; Z79.01 Long term (current) use of anticoagulants; Z87.01 Personal history of pneumonia (recurrent); Z86.14 Personal history of Methicillin resistant Staphylococcus aureus infection; Z87.891 Personal history of nicotine dependence; Z98.890 Other specified postprocedural states; Z81.8 Family history of other mental and behavioral disorders
CPT/HCPCS: 36415; 71046; 73502; 80048; 80053; 80162; 80202; 81001; 83605; 83735; 83880; 84550; 85025; 85610; 85730; 87040; 93005; 93306; 94640; 94660; 94760; 96365; 96366; 96367; 96375; 96376; 99285

== ENCOUNTER 2019-12-29 13:35 | Observation (INO) | payer MEDICARE, BC ==
--- NOTE | 2019-12-29 14:24 | ED ---
General Adult HPI - General Chief complaint: Wound/Laceration Stated complaint: R Leg Wound Time Seen by Provider: 12/29/19 13:40 Source: patient, RN notes reviewed, old records reviewed Mode of arrival: ambulatory Limitations: no limitations - History of Present Illness Initial comments: This a 69-year-old male who presents to the emergency department with a hematoma on the right anterior leg. Patient states it just occurred this morning and it was oozing blood slightly not to do psychiatric emergency department. Patient denies any trauma to the area. Patient states he is on Coumadin. Patient denies any other problems at this time per patient has chronic cellulitis in a couple of wounds that are being taken care of at home by home health care. - Related Data Home Medications Medication Instructions Recorded Confirmed Isosorbide Mononitrate ER [Imdur] 30 mg PO DAILY 04/11/14 12/19/19 Tamsulosin HCl [Flomax] 0.8 mg PO DAILY 04/11/14 12/19/19 Allopurinol [Zyloprim] 300 mg PO DAILY 03/03/16 12/19/19 Carvedilol [Coreg] 25 mg PO BID 04/25/18 12/19/19 Lisinopril [Zestril] 20 mg PO DAILY 04/25/18 12/19/19 Metolazone [Zaroxolyn] 5 mg PO DAILY 04/25/18 12/19/19 Naproxen 500 mg PO BID 04/25/18 12/19/19 Potassium Chloride 20 meq PO BID 04/25/18 12/19/19 Warfarin [Coumadin] 7.5 mg PO Q48H 04/25/18 12/19/19 Digoxin [Lanoxin] 125 mcg PO AC-SUPPER 06/09/18 12/19/19 Spironolactone [Aldactone] 25 mg PO DAILY 12/19/19 12/19/19 Warfarin [Coumadin] 10 mg PO Q48H 12/19/19 12/19/19 Previous Rx's Medication Instructions Recorded Cephalexin [Keflex] 500 mg PO Q6HR 10 Days #40 cap 12/26/19 HYDROcodone/APAP 5-325MG [[place] 1 tab PO Q6H PRN #60 tab 12/26/19 5-325] Ibuprofen [Motrin] 400 mg PO Q6HR PRN tab 12/26/19 Ipratropium-Albuterol Nebulize 3 ml INHALATION RT-TID ml 12/26/19 [Duoneb 0.5 mg-3 mg/3 ml Soln] Ipratropium-Albuterol Nebulize 3 ml INHALATION RT-TID PRN ml 12/26/19 [Duoneb 0.5 mg-3 mg/3 ml Soln] Warfarin [Coumadin] 7.5 mg PO Q48H tab 12/26/19 Warfarin [Coumadin] 10 mg PO Q48H tab 12/26/19 Allergies Allergy/AdvReac Type Severity Reaction Status Date / Time No Known Allergies Allergy Verified 12/29/19 13:40 Review of Systems ROS Statement: Those systems with pertinent positive or pertinent negative responses have been documented in the HPI. ROS Other: All systems not noted in ROS Statement are negative. Past Medical History Past Medical History: Atrial Fibrillation, Heart Failure, COPD, Hypertension, Osteoarthritis (OA), Pneumonia, Prostate Disorder, Renal Disease, Sleep Apnea/CPAP/BIPAP, Vascular Disorder Additional Past Medical History / Comment(s): Nonischemic cardiomyopathy, cardiac valve disease, bronchitis, JIMMIE with Cpap and O2 at 2L at hs, past decreased renal function, arthritis bilateral hands/knees, gout bilateral feet, numbness bilateral legs/feet, carpal tunnel syndrome bilaterally, bilateral hand tremors, nonhealing bilateral lower leg wounds/cellulitis, varicosities, lower leg/pedal edema, PVD, BPH. History of Any Multi-Drug Resistant Organisms: MRSA Date of last positivie culture/infection: 08/30/12 MDRO Source:: LEG(not sure which) Past Surgical History: Heart Catheterization Additional Past Surgical History / Comment(s): Split thickness skin graft to L leg, bronchoscopy, cyst and partial jaw removed/has screws, oral surgery age 8- too many teeth. Past Anesthesia/Blood Transfusion Reactions: Previous Problems w/ Anesthesia Additional Past Anesthesia/Blood Transfusion Reaction / Comment(s): STATED DURING BRONCH STOPPED BREATHING, (brochoscopy done at [facility]-record on chart) Past Psychological History: Anxiety Smoking Status: Former smoker Past Alcohol Use History: None Reported Past Drug Use History: None Reported - Past Family History Father Family Medical History: Dementia, Eye Disorder Additional Family Medical History / Comment(s): MACULAR DEGENERATION Mother Family Medical History: Diabetes Mellitus, Eye Disorder, Vascular Disorder Additional Family Medical History / Comment(s): ANEURYSMS, CATARACTS. General Exam - General Exam Comments Initial Comments: GENERAL Patient is well-developed and well-nourished. Patient is in mild distress. EYES Patient's pupils are equal and round. Extraocular motion is intact SKIN Unremarkable NEURO The patient is alert and oriented 3 PYSCH Patient has normal interpersonal interactions. MUSCULOSKELETAL Patient has a large hematoma to the anterior vu of the right leg there is a small area that is oozing some blood. Limitations: no limitations Course Vital Signs 12/29/19 13:40 Temperature 98.4 F Pulse Rate 65 Respiratory 18 Rate Blood Pressure 139/77 O2 Sat by Pulse 98 Oximetry Medical Decision Making - Medical Decision Making I spoke with Dr. Tinsley agreed to admit the patient admitted the patient wrote admit orders I consulted Dr. Carney Disposition Clinical Impression: Hematoma of leg Disposition: ADMITTED IP TO THIS HOSP Referrals: Wiliam Modi MD [Primary Care Provider] - 1-2 days Time of Disposition: 14:24
[2019-12-29 14:37] LABS: Anisocytosis Slight; Basophils % (A) 1 %; Eosinophils # (A) 0.5 k/uL (0-0.7); Eosinophils % (A) 8 %; HCT 34.3 % (39.0-53.0); HGB 10.9 gm/dL (13.0-17.5); Hypochromasia Marked; Lymphocytes # (A) 0.8 k/uL (1.0-4.8); Lymphocytes % (A) 12 %; MCH 29.2 pg (25.0-35.0); MCHC 31.8 g/dL (31.0-37.0); Mean Platelet Volume 9.9; Monocytes # (A) 0.3 k/uL (0-1.0); Monocytes % (A) 5 %; Neutrophils # (A) 4.6 k/uL (1.3-7.7); Neutrophils % (A) 73 %; Platelet Count 203 k/uL (150-450); RBC 3.73 m/uL (4.30-5.90); RDW 16.8 % (11.5-15.5); WBC 6.3 k/uL (3.8-10.6)
[2019-12-29 14:42] LABS: INR 1.5 (<1.2); Partial Thromboplastin Time 30.6 sec (22.0-30.0); Prothrombin Time 14.4 sec (9.0-12.0)
--- NOTE | 2019-12-29 18:24 | P.GSCN ---
History of Present Illness History of present illness: 69-year-old gentleman, patient has a long-standing history of chronic venous hypertension both lower extremity patient has been coming to the wound clinic for local wound care. History trauma to the right lower extremity patient is on Coumadin patient developed a hematoma on the anterior aspect of the right lower extremity measurement is 5 x 4 cm with some flap necrosis noted and INR is 1.3 Medical history history of congestive heart failure, history of hypertension, and Neck examination no bruit appreciated Chest first and second sound normal good entry both lungs Abdomen is soft nontender Vascular femorals are 1+ bilateral and has a 1+ DP there is a Brown induration of the both lower extremity chronic skin changes due to venous hypertension there is a hematoma with skin necrosis noted on the anterior aspect of her of the left lower leg measurement is 5 x 4 cm with some skin necrosis changes Plan is hold the Coumadin patient will need evacuation hematoma and wound dilcia ridement 1 G Every 8 Hours IV Nothing by Mouth Midnight Risk and Complication Discussed Past Medical History Past Medical History: Atrial Fibrillation, Heart Failure, COPD, Hypertension, Osteoarthritis (OA), Pneumonia, Prostate Disorder, Renal Disease, Sleep A pnea/CPAP/BIPAP, Vascular Disorder Additional Past Medical History / Comment(s): Nonischemic cardiomyopathy, cardiac valve disease, bronchitis, JIMMIE with Cpap and O2 at 2L at hs, past decreased renal function, arthritis bilateral hands/knees, gout bilateral feet, numbness bilateral legs/feet, carpal tunnel syndrome bilaterally, bilateral hand tremors, nonhealing bilateral lower leg wounds/cellulitis, varicosities, lower leg/pedal edema, PVD, BPH. History of Any Multi-Drug Resistant Organisms: MRSA Year Discovered:: 08/30/12 MDRO Source:: LEG(not sure which) Past Surgical History: Heart Catheterization Additional Past Surgical History / Comment(s): Split thickness skin graft to L leg, bronchoscopy, cyst and partial jaw removed/has screws, oral surgery age 8- too many teeth. Past Anesthesia/Blood Transfusion Reactions: Previous Problems w/ Anesthesia Additional Past Anesthesia/Blood Transfusion Reaction / Comm: STATED DURING BRONCH STOPPED BREATHING, (brochoscopy done at [facility]-record on chart) Past Psychological History: Anxiety Additional Psychological History / Comment(s): Pt resides with his spouse, royce and grandchild. He uses a walker. He has a Cpap/oxygen at home. Smoking Status: Former smoker Past Alcohol Use History: None Reported Additional Past Alcohol Use History / Comment(s): Pt started smoking cigars on occasion in 1981 and quit in 2019 Past Drug Use History: None Reported - Past Family History Father Family Medical History: Dementia, Eye Disorder Additional Family Medical History / Comment(s): MACULAR DEGENERATION Mother Family Medical History: Diabetes Mellitus, Eye Disorder, Vascular Disorder Additional Family Medical History / Comment(s): ANEURYSMS, CATARACTS. Medications and Allergies Home Medications Medication Instructions Recorded Confirmed Type Isosorbide Mononitrate ER [Imdur] 30 mg PO DAILY 04/11/14 12/29/19 History Tamsulosin HCl [Flomax] 0.8 mg PO W/BRKFST 04/11/14 12/29/19 History Allopurinol [Zyloprim] 300 mg PO DAILY 03/03/16 12/29/19 History Carvedilol [Coreg] 25 mg PO BID 04/25/18 12/29/19 History Lisinopril [Zestril] 20 mg PO DAILY 04/25/18 12/29/19 History Metolazone [Zaroxolyn] 5 mg PO DAILY 04/25/18 12/29/19 History Naproxen 500 mg PO BID 04/25/18 12/29/19 History Potassium Chloride 20 meq PO BID 04/25/18 12/29/19 History Digoxin [Lanoxin] 125 mcg PO AC-SUPPER 06/09/18 12/29/19 History Spironolactone [Aldactone] 25 mg PO DAILY 12/19/19 12/29/19 History Cephalexin [Keflex] 500 mg PO Q6HR 10 Days #40 cap 12/26/19 12/29/19 Rx HYDROcodone/APAP 5-325MG [[place] 1 tab PO Q6H PRN #60 tab 12/26/19 12/29/19 Rx 5-325] Ibuprofen [Motrin] 400 mg PO Q6HR PRN tab 12/26/19 12/29/19 Rx Warfarin [Coumadin] 7.5 mg PO Q48H tab 12/26/19 12/29/19 Rx Warfarin [Coumadin] 10 mg PO Q48H tab 12/26/19 12/29/19 Rx Allergies Allergy/AdvReac Type Severity Reaction Status Date / Time No Known Allergies Allergy Verified 12/29/19 15:38 Surgical - Exam Vital Signs Temp Pulse Resp BP Pulse Ox 98.4 F 65 18 139/77 98 12/29/19 13:40 12/29/19 13:40 12/29/19 13:40 12/29/19 13:40 12/29/19 13:40 Results - Labs 12/29/19 14:20 Abnormal Lab Results - Last 24 Hours (Table) 12/29/19 12/29/19 Range/Units 14:20 14:23 RBC 3.73 L (4.30-5.90) m/uL Hgb 10.9 L (13.0-17.5) gm/dL Hct 34.3 L (39.0-53.0) % RDW 16.8 H (11.5-15.5) % Lymphocytes # 0.8 L (1.0-4.8) k/uL PT 14.4 H (9.0-12.0) sec INR 1.5 H (<1.2) APTT 30.6 H (22.0-30.0) sec
[2019-12-29] MEDS ORDERED: HYDROcodone/APAP 5-325MG 1 EACH TAB PO PRN (23:59)
[2019-12-29] MEDS ORDERED: IBUPROFEN 400 MG TAB PO PRN (23:59)
[2019-12-30] MEDS ORDERED: HYDROmorphone 0.5 MG/0.5 ML SYRINGE IVP PRN (00:03)
--- NOTE | 2019-12-30 07:04 | HP ---
HISTORY AND PHYSICAL DATE OF SERVICE: 12/29/2019 CHIEF COMPLAINT: Pain and swelling and hematoma of the right leg. I am covering for Dr. Modi. HISTORY OF PRESENT ILLNESS: This is a 69-year-old gentleman with a past medical history of multiple medical problems including atrial ablation, CHF, COPD, hypertension, DJD, being followed by Dr. Modi in the outpatient setting with bilateral leg cellulitis. Home care nurse was monitoring the patient and noted some oozing and was sent to [facility] emergency Room, found to have right anterior leg hematoma. The patient thought that he may have actually bumped the leg. Dr. Carney saw the patient and recommended possible incision and drainage of the hematoma. The patient is being closely monitored. INR is 1.5. Coumadin is being held at this time. There is no history of fever rigors. No headache, loss of consciousness, seizures at this time. PAST MEDICAL HISTORY: History of atrial ablation, CHF, COPD, hypertension, history of DJD, history of pneumonia, nonischemic cardiomyopathy. HOME MEDICATIONS: 1. Coumadin 7.5 mg. 2. Naprosyn. 3. Zestril. 4. Motrin. 5. Zyloprim. 6. Flomax. 7. Aldactone. 8. Potassium chloride. 9. Zaroxolyn. 10.Isosorbide. 11.Imdur. 12.Alcolu. 13.Lanoxin. 14.Keflex. 15.Coreg. ALLERGIES: None. FAMILY HISTORY: History of dementia disorder, macular degeneration in the family. SOCIAL HISTORY: Previous history of smoking. No history of current smoking or alcohol intake. REVIEW OF SYSTEMS: ENT: No history of diminished hearing or vision. CARDIOVASCULAR: As mentioned earlier. RESPIRATORY: As mentioned earlier. GI: No nausea, vomiting, or diarrhea. : No dysuria or hematuria. NERVOUS SYSTEM: No numbness or weakness. ALLERGY/IMMUNOLOGY: No asthma or hayfever. MUSCULOSKELETAL: As mentioned earlier. HEMATOLOGY/ONCOLOGY: No history of anemia. ENDOCRINE: No history of diabetes or hypothyroidism. CONSTITUTIONAL: As mentioned earlier. DERMATOLOGY: Negative. RHEUMATOLOGY: Negative PSYCHIATRY: As mentioned earlier. PHYSICAL EXAMINATION: Pulse 76,blood pressure 140/86, respiration 18, temperature 97.4, pulse ox 97% on room air. HEENT: Conjunctivae normal. NECK: No jugular venous distention. CARDIOVASCULAR: S1, S2, muffled. RESPIRATORY: Diminished breath sounds at the bases. A few scattered rhonchi and crackles. ABDOMEN: Soft, nontender. No masses palpable. LEGS: Bilateral leg cellulitis and right leg hematoma. NERVOUS SYSTEM: Higher functions mentioned earlier. Moves all four limbs. No focal motor or sensory deficits. LYMPHATICS: No lymph node in neck or axilla. SKIN: As mentioned earlier. JOINTS: No active deformity. LABS: WBC 6.2, hemoglobin 10.9, INR 1.4. ASSESSMENT: 1. Right leg hematoma, possibly traumatic. 2. Coumadin monitoring. 3. Bilateral leg cellulitis. 4. Anemia, normocytic anemia of chronic disease. 5. History of atrial fibrillation. 6. History of congestive heart failure .. 7. History of chronic obstructive pulmonary disease. 8. Hypertension. 9. History of degenerative joint disease. 10.History pneumonia. 11.History of renal disease. 12.History of nonischemic cardiomyopathy. 13.History of bronchitis. 14.History of sleep apnea. 15.History of Methicillin resistant Staphylococcus aureus. 16.History of anxiety. RECOMMENDATIONS AND DISCUSSION: In this 69-year-old gentleman who presented with multiple medical problems, will monitor the patient closely. Continue the current symptomatic treatment. Otherwise, I would recommend to hold the Coumadin as recommend by Vascular Surgery and possible incision and drainage of the hematoma. Repeat labs. Otherwise, symptomatic treatment will be provided. See orders for further details thank. MMGURVINDERL / IJN: [id number] /
[2019-12-30] MEDS: ISOSORBIDE MONONITRATE ER 30 MG TAB.ER.24H PO SCH (07:37)
[2019-12-30] MEDS: lisinopriL 20 MG TAB PO SCH (07:37)
[2019-12-30] MEDS: SPIRONOLACTONE 25 MG TAB PO SCH (07:38)
[2019-12-30] MEDS: carvediloL 12.5 MG TAB PO SCH ×2 (07:38→16:24)
[2019-12-30] MEDS: TAMSULOSIN 0.4 MG CAP.ER.24H PO SCH (07:38)
[2019-12-30] MEDS: POTASSIUM CHLORIDE ER 20 MEQ TAB.ER PO SCH ×2 (07:38→22:15)
[2019-12-30] MEDS: metOLazone 5 MG TAB PO SCH (07:39)
[2019-12-30] MEDS: NAPROXEN 250 MG TAB PO SCH ×2 (07:39→22:14)
[2019-12-30] MEDS: allopurinoL 300 MG TAB PO SCH (07:39)
[2019-12-30] MEDS ORDERED: CEPHALEXIN 500 MG CAP PO SCH (08:00)
[2019-12-30 08:33] LABS: INR 1.5 (<1.2); Prothrombin Time 15.2 sec (9.0-12.0)
[2019-12-30 08:38] LABS: African American GFR (CKD) >90 (>60 ml/min/1.73 sqM); Anion Gap 5 mmol/L; Blood Urea Nitrogen 47 mg/dL (9-20); Calcium 8.4 mg/dL (8.4-10.2); Carbon Dioxide 27 mmol/L (22-30); Chloride 106 mmol/L (98-107); Glucose 106 mg/dL (74-99); Non-African American GFR(CKD) 86 (>60 ml/min/1.73 sqM); Potassium 4.3 mmol/L (3.5-5.1); Sodium 138 mmol/L (137-145)
[2019-12-30] MEDS ORDERED: MIDAZOLAM 2 MG/2 ML VIAL ONE (10:04)
[2019-12-30] MEDS ORDERED: KETAMINE 10 MG/ML 20 ML VIAL ONE (10:04)
[2019-12-30] MEDS ORDERED: PROPOFOL 10 MG/ML 20 ML VIAL IV ONE (10:04)
[2019-12-30] MEDS ORDERED: IV FLUID CONTINUATION 900 ML IV ONE (10:26)
[2019-12-30] MEDS ORDERED: LIDOCAINE 1% INJ 10MG/ML (20 ML MDV) SQ ONE (10:27)
--- NOTE | 2019-12-30 10:48 | P.PCN ---
Description of Procedure: Preoperative diagnoses hematoma with gangrene changes of the skin right lower extremity measurement is 5 x 4 cm Post operative diagnosis same procedure this patient has a trauma to the right lower extremity due to large hematoma with skin necrosis and gangrene changes patient was brought to the operating room right leg was prepped and draped applied sterile manner 1% lidocaine for infected using sharp knife we excise the skin down to separate his tissue there was a large hematoma which was removed and no active bleeding was noted wound was irrigated with sterile saline hemostasis well controlled and pressure dressing applied patient discharged to recovery in satisfactory condition
[2019-12-30] MEDS: DIGOXIN 125 MCG TAB PO SCH (16:24)
--- NOTE | 2019-12-31 03:00 | PN ---
PROGRESS NOTE DATE OF SERVICE: 12/30/2019 This 69-year-old gentleman who was admitted with significant hematoma, underwent drainage of the large hematoma. No active bleeding was noted. No chest pain. No palpitations. No fever. PHYSICAL EXAMINATION: On exam, alert and oriented x3. Pulse is 84. Blood pressure 146/88, respirations 16, temperature 97.9, pulse ox 100% on room air. HEENT: Conjunctivae normal. NECK: No jugular venous distention. CARDIOVASCULAR: S1, S2 muffled. RESPIRATORY: Breath sounds diminished at the bases. No rhonchi, no crackles. ABDOMEN: Soft. LEGS: Status post left hematoma removal. LABS: WBC 6.3, hemoglobin 10.9, and BMP noted. ASSESSMENT: 1. Acute right leg hematoma, possibly traumatic, status post evacuation and drainage. 2. Coumadin monitoring. 3. Bilateral leg cellulitis. 4. Anemia, normocytic anemia of chronic disease. 5. History atrial fibrillation. 6. History of congestive heart failure. 7. History of chronic obstructive pulmonary disease. 8. Hypertension. 9. History of degenerative joint disease. 10.History pneumonia. 11.History of renal disease. 12.History of nonischemic cardiomyopathy. 13.History of bronchitis. 14.Obstructive sleep apnea. 15.History of methicillin-resistant Staphylococcus aureus. 16.History of anxiety. RECOMMENDATIONS AND DISCUSSION: Recommend to continue current medications, continues symptomatic treatment. Otherwise, repeat labs will be ordered. Continue the rest of medications. Hold off anticoagulation. Otherwise, the prognosis guarded. Further recommendations to follow. MMODL / IJN: [id number] /
[2019-12-31 06:42] LABS: Anisocytosis Slight; Basophils % (A) 0 %; Eosinophils # (A) 0.4 k/uL (0-0.7); Eosinophils % (A) 7 %; HGB 10.9 gm/dL (13.0-17.5); Hypochromasia Marked; Lymphocytes # (A) 0.7 k/uL (1.0-4.8); Lymphocytes % (A) 12 %; MCH 28.6 pg (25.0-35.0); MCHC 31.2 g/dL (31.0-37.0); MCV 91.6 fL (80.0-100.0); Mean Platelet Volume 8.1; Monocytes # (A) 0.4 k/uL (0-1.0); Monocytes % (A) 6 %; Neutrophils # (A) 4.3 k/uL (1.3-7.7); Neutrophils % (A) 72 %; Platelet Count 197 k/uL (150-450); RBC 3.82 m/uL (4.30-5.90); RDW 16.4 % (11.5-15.5)
[2019-12-31 06:51] LABS: Calcium 8.4 mg/dL (8.4-10.2); Potassium 4.4 mmol/L (3.5-5.1)
[2019-12-31 06:55] LABS: INR 1.5 (<1.2); Prothrombin Time 14.7 sec (9.0-12.0)
[2019-12-31 07:42] VITALS: RESP 16
[2019-12-31] MEDS: metOLazone 5 MG TAB PO SCH (07:47)
[2019-12-31] MEDS: NAPROXEN 250 MG TAB PO SCH (07:47)
[2019-12-31] MEDS: ISOSORBIDE MONONITRATE ER 30 MG TAB.ER.24H PO SCH (07:48)
[2019-12-31] MEDS: allopurinoL 300 MG TAB PO SCH (07:48)
[2019-12-31] MEDS: lisinopriL 20 MG TAB PO SCH (07:48)
[2019-12-31] MEDS: TAMSULOSIN 0.4 MG CAP.ER.24H PO SCH (07:48)
[2019-12-31] MEDS: carvediloL 12.5 MG TAB PO SCH ×2 (07:48→17:24)
[2019-12-31] MEDS: POTASSIUM CHLORIDE ER 20 MEQ TAB.ER PO SCH (07:48)
[2019-12-31] MEDS: SPIRONOLACTONE 25 MG TAB PO SCH (07:48)
--- NOTE | 2019-12-31 16:55 | PN ---
PROGRESS NOTE Mr. Barraza has a history of trauma to the right lower extremity with hematoma and necrosis of the skin. Patient went for debridement and local wound care. We were using Medihoney gel to the wound. The patient has history of chronic venous hypertension. PLAN: Will continue with Medihoney gel and we will follow in the Wound Clinic on Tuesday at [facility]. MMGURVINDERL / HAYDEEN: [id number] /
[2019-12-31 17:13] VITALS: BP 162/79; PULSE 60; TEMP 98
--- NOTE | 2020-01-15 17:57 | P.DS ---
Providers Date of admission: 12/29/19 14:27 Attending physician: Wiliam Modi Consults: 12/29/19 14:26 Consult Physician Urgent Consulting Provider: Cisco Carney Consult Reason/Comments: Hematoma Do you want consulting provider notified?: Yes Primary care physician: Wiliam Modi Hospital Course: The patient is here essentially for CHF and cellulitis with elements of atrial fibrillation. The patient was appropriately admitted and evaluated. The patient did quite well and was discharged in stable condition to follow-up with me in 1 week. Patient Condition at Discharge: Stable Plan - Discharge Summary New Discharge Prescriptions: Continue Tamsulosin HCl [Flomax] 0.8 mg PO W/BRKFST Isosorbide Mononitrate ER [Imdur] 30 mg PO DAILY Allopurinol [Zyloprim] 300 mg PO DAILY Potassium Chloride 20 meq PO BID Naproxen 500 mg PO BID Carvedilol [Coreg] 25 mg PO BID Metolazone [Zaroxolyn] 5 mg PO DAILY Lisinopril [Zestril] 20 mg PO DAILY Digoxin [Lanoxin] 125 mcg PO AC-SUPPER Spironolactone [Aldactone] 25 mg PO DAILY Warfarin [Coumadin] 7.5 mg PO Q48H tab Warfarin [Coumadin] 10 mg PO Q48H tab Ibuprofen [Motrin] 400 mg PO Q6HR PRN tab PRN Reason: Mild Pain Or Fever > 100.5 HYDROcodone/APAP 5-325MG [[place] 5-325] 1 tab PO Q6H PRN #60 tab PRN Reason: Pain Cephalexin [Keflex] 500 mg PO Q6HR 10 Days #40 cap Discharge Medication List Isosorbide Mononitrate ER [Imdur] 30 mg PO DAILY 04/11/14 [History] Tamsulosin HCl [Flomax] 0.8 mg PO W/BRKFST 04/11/14 [History] Allopurinol [Zyloprim] 300 mg PO DAILY 03/03/16 [History] Carvedilol [Coreg] 25 mg PO BID 04/25/18 [History] Lisinopril [Zestril] 20 mg PO DAILY 04/25/18 [History] Metolazone [Zaroxolyn] 5 mg PO DAILY 04/25/18 [History] Naproxen 500 mg PO BID 10/30/18 [History] Potassium Chloride 20 meq PO BID 04/25/18 [History] Digoxin [Lanoxin] 125 mcg PO AC-SUPPER 06/09/18 [History] Spironolactone [Aldactone] 25 mg PO DAILY 12/19/19 [History] Cephalexin [Keflex] 500 mg PO Q6HR 10 Days #40 cap 12/26/19 [Rx] HYDROcodone/APAP 5-325MG [[place] 5-325] 1 tab PO Q6H PRN #60 tab 12/26/19 [Rx] Ibuprofen [Motrin] 400 mg PO Q6HR PRN tab 12/26/19 [Rx] Warfarin [Coumadin] 7.5 mg PO Q48H tab 12/26/19 [Rx] Warfarin [Coumadin] 10 mg PO Q48H tab 12/26/19 [Rx] Follow up Appointment(s)/Referral(s): Wiliam Modi MD [Primary Care Provider] - 1-2 days Cisco Carney MD [STAFF PHYSICIAN] - 01/07/20 2:00 pm Patient Instructions/Handouts: Hematoma (ED) Activity/Diet/Wound Care/Special Instructions: Apply Aquacell AG, moistened gauze, abdominal pad, kerlex and marybeth wrap from toes to knee every 48 hours. Follow up in wound care center as directed. Discharge Disposition: HOME SELF-CARE
== END 2019-12-31 18:15 | disposition home or self-care (01) ==
LOC: EC 13:35 → 1SOBS 14:27
PROVIDERS: ADMIT Family Medicine; ATTEND Family Medicine
DX: S80.11XA Contusion of right lower leg, initial encounter (principal); I96 Gangrene, not elsewhere classified; L03.116 Cellulitis of left lower limb; L03.115 Cellulitis of right lower limb; D63.8 Anemia in other chronic diseases classified elsewhere; I48.91 Unspecified atrial fibrillation; I13.0 Hypertensive heart and chronic kidney disease with heart failure and stage 1 through stage 4 chronic kidney disease, or unspecified chronic kidney disease; I50.9 Heart failure, unspecified; J44.9 Chronic obstructive pulmonary disease, unspecified; M19.042 Primary osteoarthritis, left hand; M19.041 Primary osteoarthritis, right hand; M17.0 Bilateral primary osteoarthritis of knee; N40.0 Benign prostatic hyperplasia without lower urinary tract symptoms; I42.8 Other cardiomyopathies; G47.33 Obstructive sleep apnea (adult) (pediatric); F41.9 Anxiety disorder, unspecified; I38 Endocarditis, valve unspecified; M10.9 Gout, unspecified; R20.0 Anesthesia of skin; G56.03 Carpal tunnel syndrome, bilateral upper limbs; R25.1 Tremor, unspecified; R60.0 Localized edema; I83.93 Asymptomatic varicose veins of bilateral lower extremities; N18.9 Chronic kidney disease, unspecified; Z03.818 Encounter for observation for suspected exposure to other biological agents ruled out; Z51.81 Encounter for therapeutic drug level monitoring; Z79.01 Long term (current) use of anticoagulants; Z79.899 Other long term (current) drug therapy; Z79.1 Long term (current) use of non-steroidal anti-inflammatories (NSAID); Z79.891 Long term (current) use of opiate analgesic; Z87.01 Personal history of pneumonia (recurrent); Z87.448 Personal history of other diseases of urinary system; Z87.09 Personal history of other diseases of the respiratory system; Z99.89 Dependence on other enabling machines and devices; Z86.14 Personal history of Methicillin resistant Staphylococcus aureus infection; Z98.890 Other specified postprocedural states; Z91.89 Other specified personal risk factors, not elsewhere classified; Z87.891 Personal history of nicotine dependence; Z81.8 Family history of other mental and behavioral disorders; Z83.518 Family history of other specified eye disorder; Z83.3 Family history of diabetes mellitus; Z82.49 Family history of ischemic heart disease and other diseases of the circulatory system; X58.XXXA Exposure to other specified factors, initial encounter
CPT/HCPCS: 10140; 99284; 36415; 80048 ×2; 85025 ×2; 85610 ×3; 85730; 87070; 87205; 87075; 87077; 87186; G0378 ×3; U0003; J2250; J0690 ×2; J2001; J2704

== ENCOUNTER → 2020-05-16 | Outpatient (CLI) | payer MEDICARE, BC | END | disposition home or self-care (01) | LOC: LABWHC1 12:05 | PROVIDERS: ATTEND Family Medicine | DX: Z20.828 Contact with and (suspected) exposure to other viral communicable diseases (principal) | CPT/HCPCS: U0003; C9803 ==

== ENCOUNTER 2020-12-29 20:17 | Inpatient (IN) | payer MEDICARE, BC ==
[2020-12-29] MEDS ORDERED: SODIUM CHLORIDE 0.9% 500 ML 500 ML IV STA (20:49)
--- NOTE | 2020-12-29 20:56 | ED ---
General Adult HPI - General Chief complaint: Weakness Stated complaint: Weakness Time Seen by Provider: 12/29/20 20:29 Source: patient, EMS, RN notes reviewed, old records reviewed Mode of arrival: EMS Limitations: no limitations - History of Present Illness Initial comments: 62-year-old male presenting with increased weakness, chills. Patient is jocelyn sen undergoing wound care treatment for bilateral lower extremity chronic wounds. He states that throughout the day today he became progressively more weak. This is generalized weakness. No focal weakness or numbness. No headache. Patient states he's had chills at home. No chest pain. No pal pitations. He has multiple medical problems. No vomiting. He has had a mild cough and some dyspnea. Found to be febrile by EMS. - Related Data Home Medications Medication Instructions Recorded Confirmed Isosorbide Mononitrate ER [Imdur] 30 mg PO DAILY 04/11/14 12/29/19 Tamsulosin HCl [Flomax] 0.8 mg PO W/BRKFST 04/11/14 12/29/19 allopurinoL [Zyloprim] 300 mg PO DAILY 03/03/16 12/29/19 Carvedilol [Coreg] 25 mg PO BID 04/25/18 12/29/19 Naproxen 500 mg PO BID 04/25/18 12/29/19 Potassium Chloride 20 meq PO BID 04/25/18 12/29/19 lisinopriL [Zestril] 20 mg PO DAILY 04/25/18 12/29/19 metOLazone [Zaroxolyn] 5 mg PO DAILY 04/25/18 12/29/19 Digoxin [Lanoxin] 125 mcg PO AC-SUPPER 06/09/18 12/29/19 Magnesium Oxide 400 mg PO DAILY 12/29/20 12/29/20 SILVER sulfADIAZINE CREAM 1 applic TOPICAL DAILY 12/29/20 12/29/20 [Silvadene Cream] Warfarin [Coumadin] 7.5 mg PO DAILY 12/29/20 12/29/20 Previous Rx's Medication Instructions Recorded HYDROcodone/APAP 5-325MG [[place] 1 tab PO Q6H PRN #60 tab 12/26/19 5-325] Allergies Allergy/AdvReac Type Severity Reaction Status Date / Time No Known Allergies Allergy Verified 12/29/20 22:21 Review of Systems ROS Statement: Those systems with pertinent positive or pertinent negative responses have been documented in the HPI. ROS Other: All systems not noted in ROS Statement are negative. Past Medical History Past Medical History: Atrial Fibrillation, Heart Failure, COPD, Hypertension, Osteoarthritis (OA), Pneumonia, Prostate Disorder, Renal Disease, Sleep Apnea/CPAP/BIPAP, Vascular Disorder Additional Past Medical History / Comment(s): Nonischemic cardiomyopathy, cardiac valve disease, bronchitis, JIMMIE with Cpap and O2 at 2L at hs, past decreased renal function, arthritis bilateral hands/knees, gout bilateral feet, numbness bilateral legs/feet, carpal tunnel syndrome bilaterally, bilateral hand tremors, nonhealing bilateral lower leg wounds/cellulitis, varicosities, lower leg/pedal edema, PVD, BPH. History of Any Multi-Drug Resistant Organisms: MRSA Date of last positivie culture/infection: 08/30/12 MDRO Source:: LEG(not sure which) Past Surgical History: Heart Catheterization Additional Past Surgical History / Comment(s): Split thickness skin graft to L leg, bronchoscopy, cyst and partial jaw removed/has screws, oral surgery age 8- too many teeth. Past Anesthesia/Blood Transfusion Reactions: Previous Problems w/ Anesthesia Additional Past Anesthesia/Blood Transfusion Reaction / Comment(s): STATED DURING BRONCH STOPPED BREATHING, (brochoscopy done at [facility]-record on chart) Past Psychological History: Anxiety Smoking Status: Never smoker Past Alcohol Use History: None Reported Past Drug Use History: None Reported - Past Family History Father Family Medical History: Dementia, Eye Disorder Additional Family Medical History / Comment(s): MACULAR DEGENERATION Mother Family Medical History: Diabetes Mellitus, Eye Disorder, Vascular Disorder Additional Family Medical History / Comment(s): ANEURYSMS, CATARACTS. General Exam Limitations: no limitations General appearance: alert, in no apparent distress Head exam: Present: atraumatic, normocephalic Eye exam: Present: normal appearance, PERRL Neck exam: Present: normal inspection. Absent: tenderness, meningismus Respiratory exam: Present: rhonchi, decreased breath sounds. Absent: normal lung sounds bilaterally Cardiovascular Exam: Present: tachycardia, irregular rhythm GI/Abdominal exam: Present: soft. Absent: distended, tenderness, guarding, rebound Extremities exam: Present: other (Bilateral dressings, CDI) Neurological exam: Present: alert, oriented X3, CN II-XII intact. Absent: motor sensory deficit Psychiatric exam: Present: normal affect, normal mood Skin exam: Present: warm, dry Course Vital Signs 12/29/20 12/29/20 12/29/20 20:25 20:26 21:44 Temperature 99.8 F H 99.4 F Pulse Rate 108 H 97 Respiratory 20 18 Rate Blood Pressure 147/86 143/80 O2 Sat by Pulse 93 L 98 Oximetry EKG Findings - EKG Comments: EKG Findings:: EKG: Atrial fibrillation with RVR, left axis, right bundle branch block, rate of 104, QRS duration 156, QTC 431, no ST segment elevation Medical Decision Making - Medical Decision Making 62-year-old male with generalized weakness, unable to ambulate, fever. He does have chronic wounds to the right lower extremities recently had home care change dressings earlier today. Denies dysuria. He has had some mild cough and dyspnea. Chest x-ray clear, mild leukocytosis. He has anemia hemoglobin 8. INR 3.7. Coumadin will be held at this time. He has a mild lactic acid 2.2, magnesium 1.5. Urinalysis negative. He will be started on IV antibiotics. He be admitted to Dr. Modi who is aware of patient. - Lab Data Result diagrams: 12/29/20 20:54 12/29/20 20:54 Lab Results 12/29/20 12/29/20 12/29/20 Range/Units 20:54 20:54 20:54 WBC 12.5 H (3.8-10.6) k/uL RBC 3.39 L (4.30-5.90) m/uL Hgb 8.0 L (13.0-17.5) gm/dL Hct 26.2 L (39.0-53.0) % MCV 77.4 L (80.0-100.0) fL MCH 23.6 L (25.0-35.0) pg MCHC 30.5 L (31.0-37.0) g/dL RDW 17.7 H (11.5-15.5) % Plt Count 157 (150-450) k/uL MPV 7.4 Neutrophils % 93 % Lymphocytes % 2 % Monocytes % 4 % Eosinophils % 1 % Basophils % 0 % Neutrophils # 11.6 H (1.3-7.7) k/uL Lymphocytes # 0.2 L (1.0-4.8) k/uL Monocytes # 0.5 (0-1.0) k/uL Eosinophils # 0.1 (0-0.7) k/uL Basophils # 0.0 (0-0.2) k/uL Hypochromasia Marked Anisocytosis Slight Microcytosis Slight PT 35.5 H (9.0-12.0) sec INR 3.7 H (<1.2) APTT 30.6 H (22.0-30.0) sec Sodium (137-145) mmol/L Potassium (3.5-5.1) mmol/L Chloride (98-107) mmol/L Carbon Dioxide (22-30) mmol/L Anion Gap mmol/L BUN (9-20) mg/dL Creatinine (0.66-1.25) mg/dL Est GFR (CKD-EPI)AfAm (>60 ml/min/1.73 sqM) Est GFR (CKD-EPI)NonAf (>60 ml/min/1.73 sqM) Glucose (74-99) mg/dL Plasma Lactic Acid Tavares (0.7-2.0) mmol/L Calcium (8.4-10.2) mg/dL Magnesium (1.6-2.3) mg/dL Total Bilirubin (0.2-1.3) mg/dL AST (17-59) U/L ALT (4-49) U/L Alkaline Phosphatase (38-126) U/L Troponin I (0.000-0.034) ng/mL Total Protein (6.3-8.2) g/dL Albumin (3.5-5.0) g/dL Urine Color Yellow Urine Appearance Clear (Clear) Urine pH 7.0 (5.0-8.0) Ur Specific [place] 1.016 (1.001-1.035) Urine Protein Negative (Negative) Urine Glucose (UA) Negative (Negative) Urine Ketones Negative (Negative) Urine Blood Negative (Negative) Urine Nitrite Negative (Negative) Urine Bilirubin Negative (Negative) Urine Urobilinogen 6.0 (<2.0) mg/dL Ur Leukocyte Esterase Negative (Negative) 12/29/20 12/29/20 12/29/20 Range/Units 20:54 20:54 20:54 WBC (3.8-10.6) k/uL RBC (4.30-5.90) m/uL Hgb (13.0-17.5) gm/dL Hct (39.0-53.0) % MCV (80.0-100.0) fL MCH (25.0-35.0) pg MCHC (31.0-37.0) g/dL RDW (11.5-15.5) % Plt Count (150-450) k/uL MPV Neutrophils % % Lymphocytes % % Monocytes % % Eosinophils % % Basophils % % Neutrophils # (1.3-7.7) k/uL Lymphocytes # (1.0-4.8) k/uL Monocytes # (0-1.0) k/uL Eosinophils # (0-0.7) k/uL Basophils # (0-0.2) k/uL Hypochromasia Anisocytosis Microcytosis PT (9.0-12.0) sec INR (<1.2) APTT (22.0-30.0) sec Sodium 140 (137-145) mmol/L Potassium 3.8 (3.5-5.1) mmol/L Chloride 103 (98-107) mmol/L Carbon Dioxide 28 (22-30) mmol/L Anion Gap 9 mmol/L BUN 40 H (9-20) mg/dL Creatinine 1.08 (0.66-1.25) mg/dL Est GFR (CKD-EPI)AfAm 81 (>60 ml/min/1.73 sqM) Est GFR (CKD-EPI)NonAf 70 (>60 ml/min/1.73 sqM) Glucose 145 H (74-99) mg/dL Plasma Lactic Acid [place] 2.2 H* (0.7-2.0) mmol/L Calcium 8.3 L (8.4-10.2) mg/dL Magnesium 1.5 L (1.6-2.3) mg/dL Total Bilirubin 1.4 H (0.2-1.3) mg/dL AST 26 (17-59) U/L ALT 12 (4-49) U/L Alkaline Phosphatase 143 H (38-126) U/L Troponin I 0.017 (0.000-0.034) ng/mL Total Protein 6.8 (6.3-8.2) g/dL Albumin 3.3 L (3.5-5.0) g/dL Urine Color Urine Appearance (Clear) Urine pH (5.0-8.0) Ur Specific [place] (1.001-1.035) Urine Protein (Negative) Urine Glucose (UA) (Negative) Urine Ketones (Negative) Urine Blood (Negative) Urine Nitrite (Negative) Urine Bilirubin (Negative) Urine Urobilinogen (<2.0) mg/dL Ur Leukocyte Esterase (Negative) Disposition Clinical Impression: Venous stasis ulcers of both lower extremities, Edema extremities, Generalized weakness Disposition: ADMITTED IP TO THIS HOSP Condition: Stable Is patient prescribed a controlled substance at d/c from ED?: No Referrals: Wiliam Modi MD [Primary Care Provider] - 1-2 days Decision to Admit Reason: Admit from EC Decision Date: 12/29/20 Decision Time: 22:27
[2020-12-29 21:16] LABS: Anisocytosis Slight; Basophils % (A) 0 %; Eosinophils # (A) 0.1 k/uL (0-0.7); Eosinophils % (A) 1 %; HCT 26.2 % (39.0-53.0); Hypochromasia Marked; Lymphocytes # (A) 0.2 k/uL (1.0-4.8); Lymphocytes % (A) 2 %; MCH 23.6 pg (25.0-35.0); MCHC 30.5 g/dL (31.0-37.0); MCV 77.4 fL (80.0-100.0); Mean Platelet Volume 7.4; Microcytosis Slight; Monocytes # (A) 0.5 k/uL (0-1.0); Monocytes % (A) 4 %; Neutrophils # (A) 11.6 k/uL (1.3-7.7); Neutrophils % (A) 93 %; Platelet Count 157 k/uL (150-450); RBC 3.39 m/uL (4.30-5.90); RDW 17.7 % (11.5-15.5); WBC 12.5 k/uL (3.8-10.6)
--- NOTE | 2020-12-29 21:21 | XR ---
EXAMINATION TYPE: XR chest 2V DATE OF EXAM: 12/29/2020 COMPARISON: 12/19/2019 HISTORY: Weakness TECHNIQUE: FINDINGS: Heart is enlarged. There is no heart failure. There are chest leads. Costophrenic angles ar e clear. There are no hilar masses. There is thoracolumbar mild kyphosis. IMPRESSION: No active cardiopulmonary disease. Cardiomegaly. There is increased mild kyphosis compare d to old exam.
[2020-12-29 21:29] LABS: INR 3.7 (<1.2); Partial Thromboplastin Time 30.6 sec (22.0-30.0); Prothrombin Time 35.5 sec (9.0-12.0)
[2020-12-29 21:40] LABS: Albumin 3.3 g/dL (3.5-5.0); Calcium 8.3 mg/dL (8.4-10.2); Magnesium 1.5 mg/dL (1.6-2.3); Potassium 3.8 mmol/L (3.5-5.1); Total Bilirubin 1.4 mg/dL (0.2-1.3); Total Protein 6.8 g/dL (6.3-8.2)
[2020-12-29 21:42] LABS: Appearance,Urine Clear (Clear); Bilirubin,Urine Negative (Negative); Blood,Urine Negative (Negative); Color,Urine Yellow; Glucose,Urine (UA) Negative (Negative); Ketones,Urine Negative (Negative); Leukocyte Esterase,Urine Negative (Negative); Nitrite,Urine Negative (Negative); Protein,Urine Negative (Negative); Specific Gravity,Urine 1.016 (1.001-1.035)
[2020-12-29] MEDS ORDERED: MAGNESIUM SULFATE-D5W PMX 1 GM in DEXTROSE/WATER 1 100ML.BAG IVPB ONE (21:57)
[2020-12-29] MEDS ORDERED: cefTRIAXone IN SWFI 1,000 MG/10 ML SYRINGE IVP STA (22:20)
[2020-12-29] MEDS ORDERED: VANCOMYCIN IV PER PHARMACY 1 EACH MISC MISCELLANE PRN (22:20)
[2020-12-29] MEDS ORDERED: ACETAMINOPHEN TAB 325 MG TAB PO PRN (22:23)
[2020-12-29] MEDS ORDERED: NALOXONE 0.4 MG/ML 1 ML VIAL IV PRN (22:23)
[2020-12-29] MEDS: SODIUM CHLORIDE 0.9% 1,000 ML IV SCH (22:40)
[2020-12-29] MEDS ORDERED: VANCOMYCIN 2,000 MG in SODIUM CHLORIDE 0.9% 500 ML 500 ML IVPB ONE (23:00)
[2020-12-30 06:15] LABS: Anisocytosis Slight; Basophils % (A) 0 %; Eosinophils # (A) 0.1 k/uL (0-0.7); Eosinophils % (A) 1 %; HCT 24.1 % (39.0-53.0); HGB 7.4 gm/dL (13.0-17.5); Hypochromasia Marked; Lymphocytes # (A) 0.3 k/uL (1.0-4.8); Lymphocytes % (A) 3 %; MCH 23.7 pg (25.0-35.0); MCHC 30.5 g/dL (31.0-37.0); MCV 77.7 fL (80.0-100.0); Mean Platelet Volume 8.2; Microcytosis Slight; Monocytes # (A) 0.4 k/uL (0-1.0); Monocytes % (A) 3 %; Neutrophils # (A) 10.4 k/uL (1.3-7.7); Neutrophils % (A) 93 %; Platelet Count 163 k/uL (150-450); RDW 17.7 % (11.5-15.5); WBC 11.2 k/uL (3.8-10.6)
[2020-12-30 06:22] LABS: INR 4.3 (<1.2); Prothrombin Time 41.5 sec (9.0-12.0)
[2020-12-30 06:23] LABS: Albumin 2.8 g/dL (3.5-5.0); Magnesium 1.7 mg/dL (1.6-2.3); Potassium 3.4 mmol/L (3.5-5.1); Total Bilirubin 1.2 mg/dL (0.2-1.3); Total Protein 6.1 g/dL (6.3-8.2)
[2020-12-30] MEDS: carvediloL 12.5 MG TAB PO SCH ×2 (08:46→16:54)
[2020-12-30] MEDS: allopurinoL 300 MG TAB PO SCH (08:46)
[2020-12-30] MEDS: DIGOXIN 125 MCG TAB PO SCH (08:46)
[2020-12-30] MEDS: MAGNESIUM OXIDE 400 MG TAB PO SCH (08:46)
[2020-12-30] MEDS: lisinopriL 20 MG TAB PO SCH (08:46)
[2020-12-30] MEDS: ISOSORBIDE MONONITRATE ER 30 MG TAB.ER.24H PO SCH (08:46)
[2020-12-30] MEDS: metOLazone 5 MG TAB PO SCH (08:47)
[2020-12-30] MEDS: TAMSULOSIN 0.4 MG CAP.ER.24H PO SCH (08:47)
[2020-12-30] MEDS ORDERED: WARFARIN 7.5 MG TAB PO SCH (09:00)
[2020-12-30] MEDS: VANCOMYCIN 2,000 MG in SODIUM CHLORIDE 0.9% 500 ML 500 ML IVPB SCH ×2 (11:20→23:33)
[2020-12-30] MEDS: SODIUM CHLORIDE 0.9% 1,000 ML IV SCH ×2 (13:44→19:05)
[2020-12-30] MEDS ORDERED: Potassium Replacement Protocol 1 EACH MISC MISCELLANE PRN (14:03)
--- NOTE | 2020-12-30 15:25 | P.CRDCN ---
History of Present Illness History of present illness: HISTORY OF PRESENTING ILLNESS This is a 69-year-old gentleman with history of nonischemic cardiomyopathy with EF 45%, nonobstructive coronary artery disease, chronic atrial fibrillation (on coumadin), hypertension, COPD, chronic kidney disease. He follows in the office with Dr. Pendleton. We have been asked to see in consultation for congestive heart failure. Patient presents to the emergency department with increased weakness and chills. Patient is currently undergoing wound treatment for bilateral lower extremity wounds, he states that he's been getting progressively weak. Patient states over the past week he has been feeling weak, fatigued, chills, shaky. he states that in the ambulance he had 105 fever. He states that he's been feeling like he had a fever at home but did not check his temperature. He denies cough, dysuria, chest pain, shortness of breath, palpitations, lightheadedness, dizziness. He states that his primary care provider was concerned about possible GI bleed and wanted him to get a colonoscopy. He denies any blood in his stool however does have some blood after he wipes, he believes this is his hemorrhoids. he does endorse some increased lower extremity swelling specifically his right lower extremity. He denies shortness of breath. He does have obstructive sleep apnea and wears a CPAP and oxygen at night.he states he does have 40 mg of Lasix that he takes daily occasionally. He has not been taking these due to increased urination. DIAGNOSTICS EKG reveals atrial fibrillation, heart rate 104, right bundle-branch block. Prior EKG with similar findings. Most recent cardiac catheterization 12/2011 which revealed nonobstructive moran ry artery disease. Proximal LAD with 40-50% disease. Most recent echocardiogram 11/2019 revealed an EF of 40-45%, trace mitral regurgitation, mild tricuspid regurgitation, severe concentric left ventricular hypertrophy Chest xray no active cardiopulmonary disease. Cardiomegaly. Increased mild kyp hosis compared to old exam. Laboratory reviewed, WBC 12.5-->11.5, hemoglobin 7.4, platelets 163, sodium 139, potassium 3.4, BUN 32, serum creatinine 1.03, magnesium 1.7, lactate was 2.2, repeat 1.2, UA negative. INR 4.3. Current home cardiac medications include Coumadin 7.5 mg daily, potassium chlo ride 20 mEq twice a day, Coreg 25 mg twice a day, lisinopril 20 mg daily, magnesium oxide 400 mg daily, Imdur 30 mg daily, digoxin 125mcg daily. REVIEW OF SYSTEMS At the time of my exam: CONSTITUTIONAL: + fever + chills.positive fatigue, positive generalized weakness. CARDIOVASCULAR: Denies chest pain, shortness of breath, orthopnea, PND or palpitations. RESPIRATORY: Denies cough. GASTROINTESTINAL: Denies abdominal pain, diarrhea, constipation, nausea or vomiting. MUSCULOSKELETAL: Denies myalgias. NEUROLOGIC: Denies numbness, tingling, headacbe or weakness. ENDOCRINE: Denies fatigue, weight change, polydipsia or polyurina. GENITOURINARY: Denies burning, hematuria or urgency with micturation. HEMATOLOGIC: Denies history of anemia or bleeding. PHYSICAL EXAMINATION Blood pressure 151/85 heart rate 94 afebrile, Tmax 99.8 and maintaining oxygen saturation 100% on 2 L nasal cannula CONSTITUTIONAL: No apparent distress. HEENT: Head is normocephalic. Pupils are equal, round. Sclerae anicteric. Mucous membranes of the mouth are moist. No JVD. No carotid bruit. CHEST EXAMINATION: Lungs are clear to auscultation. No chest wall tenderness is noted on palpation or with deep breathing. HEART EXAMINATION: Irregular rate and rhythm. S1, S2 heard. ABDOMEN: Soft, nontender. Positive bowel sounds. EXTREMITIES: 2+ peripheral pulses, moderate bilateral extremity edema and no calf tenderness. Skin: bilateral lower extremity wounds wrapped in dressings with serosangeouins fluid NEUROLOGIC EXAMINATION: Patient is awake, alert and oriented x3. ASSESSMENT Generalized weakness Fever, Chills, Fatigue Nonischemic cardiomyopathy with EF 45% Nobstructive coronary artery disease Chronic persistant atrial fibrillation (on coumadin) Hypertension COPD Chronic kidney disease Supratherapeutic INR Hypomagnesima Hypokalemia PLAN Will replace patient's potassium Magnesium is already replaced Repeat 2D echocardiogram Will restart patient's PO Lasix 40mg daily Continue patient's home cardiac medications Further recommendations based on clinical course Nurse Practitioner note has been reviewed, I agree with a documented findings and plan of care. Patient was seen and examined. Past Medical History Past Medical History: Atrial Fibrillation, Heart Failure, COPD, Hypertension, Osteoarthritis (OA), Pneumonia, Prostate Disorder, Renal Disease, Sleep Apnea/CPAP/BIPAP, Vascular Disorder Additional Past Medical History / Comment(s): Nonischemic cardiomyopathy, cardiac valve disease, bronchitis, JIMMIE with Cpap and O2 at 2L at hs, past decreased renal function, arthritis bilateral hands/knees, gout bilateral feet, numbness bilateral legs/feet, carpal tunnel syndrome bilaterally, bilateral hand tremors, nonhealing bilateral lower leg wounds/cellulitis, varicosities, lower leg/pedal edema, PVD, BPH. History of Any Multi-Drug Resistant Organisms: MRSA Date of last positivie culture/infection: 08/30/12 MDRO Source:: LEG(not sure which) Past Surgical History: Heart Catheterization Additional Past Surgical History / Comment(s): Split thickness skin graft to L leg, bronchoscopy, cyst and partial jaw removed/has screws, oral surgery age 8- too many teeth. Past Anesthesia/Blood Transfusion Reactions: Previous Problems w/ Anesthesia Additional Past Anesthesia/Blood Transfusion Reaction / Comment(s): STATED DURING BRONCH STOPPED BREATHING, (brochoscopy done at [facility]-record on chart) Past Psychological History: Anxiety Additional Psychological History / Comment(s): Pt resides with his spouse, daughter and grandchild. He uses a walker. He has a Cpap/oxygen at home. Smoking Status: Never smoker Past Alcohol Use History: None Reported Additional Past Alcohol Use History / Comment(s): Pt started smoking cigars on occasion in 1981 and quit in 2019 Past Drug Use History: None Reported - Past Family History Father Family Medical History: Dementia, Eye Disorder Additional Family Medical History / Comment(s): MACULAR DEGENERATION Mother Family Medical History: Diabetes Mellitus, Eye Disorder, Vascular Disorder Additional Family Medical History / Comment(s): ANEURYSMS, CATARACTS. Medications and Allergies Home Medications Medication Instructions Recorded Confirmed Type Isosorbide Mononitrate ER [Imdur] 30 mg PO DAILY 04/11/14 12/29/20 History Tamsulosin HCl [Flomax] 0.8 mg PO DAILY 04/11/14 12/29/20 History allopurinoL [Zyloprim] 300 mg PO DAILY 03/03/16 12/29/20 History Carvedilol [Coreg] 25 mg PO BID-W/MEALS 04/25/18 12/29/20 History Naproxen 500 mg PO BID-W/MEALS 04/25/18 12/29/20 History Potassium Chloride 20 meq PO BID-W/MEALS 04/25/18 12/29/20 History lisinopriL [Zestril] 20 mg PO DAILY 04/25/18 12/29/20 History metOLazone [Zaroxolyn] 5 mg PO DAILY 04/25/18 12/29/20 History Digoxin [Lanoxin] 125 mcg PO DAILY 06/09/18 12/29/20 History HYDROcodone/APAP 5-325MG [[place] 1 tab PO Q6H PRN #60 tab 12/26/19 12/29/20 Rx 5-325] Magnesium Oxide 400 mg PO DAILY 12/29/20 12/29/20 History SILVER sulfADIAZINE CREAM 1 applic TOPICAL DAILY 12/29/20 12/29/20 History [Silvadene Cream] Warfarin [Coumadin] 7.5 mg PO DAILY 12/29/20 12/29/20 History Allergies Allergy/AdvReac Type Severity Reaction Status Date / Time No Known Allergies Allergy Verified 12/29/20 22:21 Physical Exam Vitals: Vital Signs Temp Pulse Pulse Resp BP BP Pulse Ox 12/30/20 07:25 98.1 F 94 20 151/85 100 12/29/20 23:32 99.1 F 93 148/75 97 12/29/20 23:02 97.4 F L 103 H 18 129/73 99 12/29/20 22:41 94 18 134/78 98 12/29/20 21:44 97 18 143/80 98 12/29/20 20:26 99.4 F 12/29/20 20:25 99.8 F H 108 H 20 147/86 93 L Intake and Output 12/29/20 12/30/20 12/30/20 22:59 06:59 14:59 Other: # Voids 2 Weight 125.191 kg Results 12/31/20 06:20 12/31/20 06:20 Cardiac Enzymes 12/29/20 12/29/20 12/30/20 Range/Units 20:54 20:54 05:31 AST 26 19 (17-59) U/L Troponin I 0.017 (0.000-0.034) ng/mL Coagulation 12/29/20 12/30/20 Range/Units 20:54 05:31 PT 35.5 H 41.5 H (9.0-12.0) sec APTT 30.6 H (22.0-30.0) sec CBC 12/29/20 12/30/20 Range/Units 20:54 05:31 WBC 12.5 H 11.2 H (3.8-10.6) k/uL RBC 3.39 L 3.10 L (4.30-5.90) m/uL Hgb 8.0 L 7.4 L (13.0-17.5) gm/dL Hct 26.2 L 24.1 L (39.0-53.0) % Plt Count 157 163 (150-450) k/uL Comprehensive Metabolic Panel 12/29/20 12/30/20 Range/Units 20:54 05:31 Sodium 140 139 (137-145) mmol/L Potassium 3.8 3.4 L (3.5-5.1) mmol/L Chloride 103 105 (98-107) mmol/L Carbon Dioxide 28 30 (22-30) mmol/L BUN 40 H 32 H (9-20) mg/dL Creatinine 1.08 1.03 (0.66-1.25) mg/dL Glucose 145 H 175 H (74-99) mg/dL Calcium 8.3 L 8.0 L (8.4-10.2) mg/dL AST 26 19 (17-59) U/L ALT 12 10 (4-49) U/L Alkaline Phosphatase 143 H 120 (38-126) U/L Total Protein 6.8 6.1 L (6.3-8.2) g/dL Albumin 3.3 L 2.8 L (3.5-5.0) g/dL Current Medications Generic Name Dose Route Start Last Admin Trade Name Sydq PRN Reason Stop Dose Admin Acetaminophen 650 mg 12/29/20 22:23 Acetaminophen Tab 325 Mg Tab PO Q6HR PRN Mild Pain or Fever > 100.5 Hydrocodone Bitart/Acetaminophen 1 each 12/29/20 23:00 Hydrocodone/Apap 5-325mg 1 Each Tab PO Q6H PRN Pain Allopurinol 300 mg 12/30/20 09:00 12/30/20 08:46 Allopurinol 300 Mg Tab PO 300 mg DAILY JULIEN Administration Carvedilol 25 mg 12/30/20 08:00 12/30/20 08:46 Carvedilol 12.5 Mg Tab PO 25 mg BID-W/MEALS JULIEN Administration Digoxin 125 mcg 12/30/20 09:00 12/30/20 08:46 Digoxin 125 Mcg Tab PO 125 mcg DAILY JULIEN Administration Sodium Chloride 1,000 mls @ 75 mls/hr 12/29/20 22:30 12/29/20 22:40 Saline 0.9% IV 75 mls/hr .[id number] JULIEN Administration Vancomycin HCl 2,000 mg/ 500 mls @ 167 mls/hr 12/30/20 12:00 Sodium Chloride IVPB Q12H JULIEN Isosorbide Mononitrate 30 mg 12/30/20 09:00 12/30/20 08:46 Isosorbide Mononitrate Er 30 Mg Tab.Er.24h PO 30 mg DAILY JULIEN Administration Lisinopril 20 mg 12/30/20 09:00 12/30/20 08:46 Lisinopril 20 Mg Tab PO 20 mg DAILY JULIEN Administration Magnesium Oxide 400 mg 12/30/20 09:00 12/30/20 08:46 Magnesium Oxide 400 Mg Tab PO 400 mg DAILY JULIEN Administration Metolazone 5 mg 12/30/20 09:00 12/30/20 08:47 Metolazone 5 Mg Tab PO 5 mg DAILY JULIEN Administration Miscellaneous Information 0 each 12/30/20 08:04 Warfarin Per Pharmacy MISCELLANE DIRECTED PRN per protocol Naloxone HCl 0.2 mg 12/29/20 22:23 Naloxone 0.4 Mg/Ml 1 Ml Vial IV Q2M PRN Opioid Reversal Naproxen 500 mg 12/30/20 17:30 Naproxen 250 Mg Tab PO BID-W/MEALS [facility] Potassium Chloride 20 meq 12/30/20 17:30 Potassium Chloride Er 20 Meq Tab.Er PO BID-W/MEALS [facility] Silver Sulfadiazine 1 applic 12/30/20 09:00 12/30/20 08:47 Silver Sulfadiazine 1% Cream 25 Gm Tube TOPICAL 1 applic DAILY JULIEN Administration Tamsulosin HCl 0.8 mg 12/30/20 09:00 12/30/20 08:47 Tamsulosin 0.4 Mg Cap.Er.24h PO 0.8 mg DAILY JULIEN Administration Warfarin Sodium 0 mg 12/30/20 18:00 Warfarin 0.5 Mg Tab PO 12/30/20 18:01 ONCE@1800 ONE Intake and Output 12/29/20 12/30/20 12/30/20 22:59 06:59 14:59 Other: # Voids 2 Weight 125.191 kg 12/30/20 05:31 12/30/20 05:31
[2020-12-30] MEDS: POTASSIUM CHLORIDE ER 20 MEQ TAB.ER PO SCH (16:54)
[2020-12-30] MEDS: NAPROXEN 250 MG TAB PO SCH (16:55)
[2020-12-30] MEDS ORDERED: POTASSIUM CHLORIDE ER 20 MEQ TAB.ER PO SCH (17:30)
[2020-12-30] MEDS ORDERED: WARFARIN 0.5 MG TAB PO ONE (18:00)
--- NOTE | 2020-12-30 18:26 | P.HPIM ---
History of Present Illness H&P Date: 12/30/20 Chief Complaint: Significant weakness. The patient is a 70-year-old white male with known history of atrial fibrillation and chronic lower extremity wounds who has been struggling with new onset weakness. He has been able to do his ADLs but has lower extremity chronic wounds most likely venous stasis in nature. Underlying history of atrial fibrillation which has been relatively stable. He has been relatively compliant taking his medication. Now with significant weakness. Review of Systems Constitutional: Denies chills, Denies fever Eyes: denies blurred vision, denies pain Ears, nose, mouth and throat: Denies headache, Denies sore throat Cardiovascular: Reports as per HPI Respiratory: Reports dyspnea Gastrointestinal: Denies abdominal pain, Denies diarrhea, Denies nausea, Denies vomiting Musculoskeletal: Denies myalgias Past Medical History Past Medical History: Atrial Fibrillation, Heart Failure, COPD, Hypertension, Osteoarthritis (OA), Pneumonia, Prostate Disorder, Renal Disease, Sleep Apnea/CPAP/BIPAP, Vascular Disorder Additional Past Medical History / Comment(s): Nonischemic cardiomyopathy, card iac valve disease, bronchitis, JIMMIE with Cpap and O2 at 2L at hs, past decreased renal function, arthritis bilateral hands/knees, gout bilateral feet, numbness bilateral legs/feet, carpal tunnel syndrome bilaterally, bilateral hand tremors, nonhealing bilateral lower leg wounds/cellulitis, varicosities, lower leg/pedal edema, PVD, BPH. History of Any Multi-Drug Resistant Organisms: MRSA Date of last positivie culture/infection: 08/30/12 MDRO Source:: LEG(not sure which) Past Surgical History: Heart Catheterization Additional Past Surgical History / Comment(s): Split thickness skin graft to L leg, bronchoscopy, cyst and partial jaw removed/has screws, oral surgery age 8- too many teeth. Past Anesthesia/Blood Transfusion Reactions: Previous Problems w/ Anesthesia Additional Past Anesthesia/Blood Transfusion Reaction / Comment(s): STATED DURING BRONCH STOPPED BREATHING, (brochoscopy done at [facility]-record on chart) Past Psychological History: Anxiety Additional Psychological History / Comment(s): Pt resides with his spouse, daughter and grandchild. He uses a walker. He has a Cpap/oxygen at home. Smoking Status: Never smoker Past Alcohol Use History: None Reported Additional Past Alcohol Use History / Comment(s): Pt started smoking cigars on occasion in 1981 and quit in 2019 Past Drug Use History: None Reported - Past Family History Father Family Medical History: Dementia, Eye Disorder Additional Family Medical History / Comment(s): MACULAR DEGENERATION Mother Family Medical History: Diabetes Mellitus, Eye Disorder, Vascular Disorder Additional Family Medical History / Comment(s): ANEURYSMS, CATARACTS. Medications and Allergies Home Medications Medication Instructions Recorded Confirmed Type Isosorbide Mononitrate ER [Imdur] 30 mg PO DAILY 04/11/14 12/29/20 History Tamsulosin HCl [Flomax] 0.8 mg PO DAILY 04/11/14 12/29/20 History allopurinoL [Zyloprim] 300 mg PO DAILY 03/03/16 12/29/20 History Carvedilol [Coreg] 25 mg PO BID-W/MEALS 04/25/18 12/29/20 History Naproxen 500 mg PO BID-W/MEALS 04/25/18 12/29/20 History Potassium Chloride 20 meq PO BID-W/MEALS 04/25/18 12/29/20 History lisinopriL [Zestril] 20 mg PO DAILY 04/25/18 12/29/20 History metOLazone [Zaroxolyn] 5 mg PO DAILY 04/25/18 12/29/20 History Digoxin [Lanoxin] 125 mcg PO DAILY 06/09/18 12/29/20 History HYDROcodone/APAP 5-325MG [[place] 1 tab PO Q6H PRN #60 tab 12/26/19 12/29/20 Rx 5-325] Magnesium Oxide 400 mg PO DAILY 12/29/20 12/29/20 History SILVER sulfADIAZINE CREAM 1 applic TOPICAL DAILY 12/29/20 12/29/20 History [Silvadene Cream] Warfarin [Coumadin] 7.5 mg PO DAILY 12/29/20 12/29/20 History Allergies Allergy/AdvReac Type Severity Reaction Status Date / Time No Known Allergies Allergy Verified 12/29/20 22:21 Physical Exam Vitals: Vital Signs Temp Pulse Pulse Resp BP BP Pulse Ox 12/30/20 14:00 98.5 F 100 24 146/74 99 12/30/20 07:25 98.1 F 94 20 151/85 100 12/29/20 23:32 99.1 F 93 148/75 97 12/29/20 23:02 97.4 F L 103 H 18 129/73 99 12/29/20 22:41 94 18 134/78 98 12/29/20 21:44 97 18 143/80 98 12/29/20 20:26 99.4 F 12/29/20 20:25 99.8 F H 108 H 20 147/86 93 L Intake and Output 12/30/20 12/30/20 12/30/20 06:59 14:59 22:59 Other: # Voids 2 - Constitutional General appearance: obese - EENT Eyes: no abnormal pupil - Neck Neck: lymphadenopathy - Respiratory Respiratory: bilateral: diminished - Cardiovascular Rhythm: irregularly irregular Heart sounds: normal: S1, S2 Abnormal Heart Sounds: no S3 Gallop - Gastrointestinal General gastrointestinal: soft, no tenderness - Neurologic Neurologic: CNII-XII intact Results CBC & Chem 7: 12/30/20 05:31 12/30/20 05:31 Labs: Abnormal Lab Results - Last 24 Hours (Table) 12/29/20 12/29/20 12/29/20 Range/Units 20:54 20:54 20:54 WBC 12.5 H (3.8-10.6) k/uL RBC 3.39 L (4.30-5.90) m/uL Hgb 8.0 L (13.0-17.5) gm/dL Hct 26.2 L (39.0-53.0) % MCV 77.4 L (80.0-100.0) fL MCH 23.6 L (25.0-35.0) pg MCHC 30.5 L (31.0-37.0) g/dL RDW 17.7 H (11.5-15.5) % Neutrophils # 11.6 H (1.3-7.7) k/uL Lymphocytes # 0.2 L (1.0-4.8) k/uL PT 35.5 H (9.0-12.0) sec INR 3.7 H (<1.2) APTT 30.6 H (22.0-30.0) sec Potassium (3.5-5.1) mmol/L BUN 40 H (9-20) mg/dL Glucose 145 H (74-99) mg/dL Plasma Lactic Acid Tavares (0.7-2.0) mmol/L Calcium 8.3 L (8.4-10.2) mg/dL Magnesium 1.5 L (1.6-2.3) mg/dL Total Bilirubin 1.4 H (0.2-1.3) mg/dL Alkaline Phosphatase 143 H (38-126) U/L Total Protein (6.3-8.2) g/dL Albumin 3.3 L (3.5-5.0) g/dL 12/29/20 12/30/20 12/30/20 Range/Units 20:54 05:31 05:31 WBC 11.2 H (3.8-10.6) k/uL RBC 3.10 L (4.30-5.90) m/uL Hgb 7.4 L (13.0-17.5) gm/dL Hct 24.1 L (39.0-53.0) % MCV 77.7 L (80.0-100.0) fL MCH 23.7 L (25.0-35.0) pg MCHC 30.5 L (31.0-37.0) g/dL RDW 17.7 H (11.5-15.5) % Neutrophils # 10.4 H (1.3-7.7) k/uL Lymphocytes # 0.3 L (1.0-4.8) k/uL PT 41.5 H (9.0-12.0) sec INR 4.3 H (<1.2) APTT (22.0-30.0) sec Potassium (3.5-5.1) mmol/L BUN (9-20) mg/dL Glucose (74-99) mg/dL Plasma Lactic Acid Tavares 2.2 H* (0.7-2.0) mmol/L Calcium (8.4-10.2) mg/dL Magnesium (1.6-2.3) mg/dL Total Bilirubin (0.2-1.3) mg/dL Alkaline Phosphatase (38-126) U/L Total Protein (6.3-8.2) g/dL Albumin (3.5-5.0) g/dL 12/30/20 Range/Units 05:31 WBC (3.8-10.6) k/uL RBC (4.30-5.90) m/uL Hgb (13.0-17.5) gm/dL Hct (39.0-53.0) % MCV (80.0-100.0) fL MCH (25.0-35.0) pg MCHC (31.0-37.0) g/dL RDW (11.5-15.5) % Neutrophils # (1.3-7.7) k/uL Lymphocytes # (1.0-4.8) k/uL PT (9.0-12.0) sec INR (<1.2) APTT (22.0-30.0) sec Potassium 3.4 L (3.5-5.1) mmol/L BUN 32 H (9-20) mg/dL Glucose 175 H (74-99) mg/dL Plasma Lactic Acid Tavares (0.7-2.0) mmol/L Calcium 8.0 L (8.4-10.2) mg/dL Magnesium (1.6-2.3) mg/dL Total Bilirubin (0.2-1.3) mg/dL Alkaline Phosphatase (38-126) U/L Total Protein 6.1 L (6.3-8.2) g/dL Albumin 2.8 L (3.5-5.0) g/dL Thrombosis Risk Factor Assmnt - Choose All That Apply Each Factor Represents 1 point: Obesity (BMI >25) Each Risk Factor Represents 2 Points: Age 61-74 years Thrombosis Risk Factor Assessment Total Risk Factor Score: 3 Thrombosis Risk Factor Assessment Level: Moderate Risk Assessment and Plan (1) Generalized weakness Current Visit: Yes Status: Acute Code(s): R53.1 - WEAKNESS SNOMED Code(s): 88318472 (2) Venous stasis ulcers of both lower extremities Current Visit: Yes Status: Acute Code(s): I83.019 - VARICOSE VEINS OF RIGHT LOWER EXTREMITY W ULCER OF UNSP SITE; I83.029 - VARICOSE VEINS OF LEFT LOWER EXTREMITY W ULCER OF UNSP SITE; L97.919 - NON-PRS CHRONIC ULC UNSP PRT OF R LOW LEG W UNSP SEVERITY; L97.929 - NON-PRS CHRONIC ULC UNSP PRT OF L LOW LEG W UNSP SEVERITY SNOMED Code(s): 215304772 (3) Atrial fibrillation Current Visit: No Status: Acute Code(s): I48.91 - UNSPECIFIED ATRIAL FIBRILLATION SNOMED Code(s): 03193634 (4) Hypoxia Current Visit: No Status: Acute Code(s): R09.02 - HYPOXEMIA SNOMED Code(s): 836462639 (5) Severe obesity (BMI >= 40) Current Visit: No Status: Acute Code(s): E66.01 - MORBID (SEVERE) OBESITY DUE TO EXCESS CALORIES SNOMED Code(s): 069568395 (6) Systolic CHF, acute on chronic Current Visit: No Status: Acute Code(s): I50.23 - ACUTE ON CHRONIC SYSTOLIC (CONGESTIVE) HEART FAILURE SNOMED Code(s): 899422221 Plan: Watch anemia closely. Ask cardiology to see the patient due to his onset of weakness. Reconcile home medications. Ask PT/OT to evaluate the patient. Discharge planning for possible placement. Time with Patient: Greater than 30
[2020-12-30 19:41] LABS: INR 3.7 (<1.2); Prothrombin Time 35.7 sec (9.0-12.0)
--- NOTE | 2020-12-31 07:24 | ECHOF ---
Referral Reason:LV function MEASUREMENTS -------- HEIGHT: 177.8 cm WEIGHT: 125.2 kg BP: 151/85 RVIDd: 4.0 cm (< 3.3) IVSd: 1.6 cm (0.6 - 1.1) LVIDd: 5.4 cm (3.9 - 5.3) LVPWd: 1.6 cm (0.6 - 1.1) IVSs: 2.2 cm LVIDs: 4.2 cm LVPWs: 1.5 cm LA Diam: 4.9 cm (2.7 - 3.8) LAESV Index (A-L): 48.95 ml/m Ao Diam: 4.2 cm (2.0 - 3.7) AV Cusp: 1.7 cm (1.5 - 2.6) MV EXCURSION: 24.989 mm (> 18.000) MV EF SLOPE: 210 mm/s (70 - 150) EPSS: 0.9 cm RAP: 15.00 mmHg RVSP: 48.38 mmHg FINDINGS -------- Atrial fibrillation. This was a technically difficult study with suboptimal apical views. The left ventricular size is normal. There is moderate concentric left ventricular hypertrophy. O verall left ventricular systolic function is mildly impaired with, an EF between 45 - 50 %. The right ventricle is moderately enlarged. LA is severely dilated >40 ml/m2 The right atrium is normal in size. 5 ml of Lumason was utilized for enhancement of images. Possible PFO There is mild aortic valve sclerosis. Trace to mild aortic regurgitation. Mild mitral annular calcification present. Mild mitral regurgitation is present. Mild tricuspid regurgitation present. There is moderate pulmonary hypertension. The right ventric ular systolic pressure, as measured by Doppler, is 48.38mmHg. The pulmonic valve was not well visualized. The aortic root is dilated measuring 4.2cm. The inferior vena cava is dilated with no significant inspiratory collapse which is consistent estima anitra right atrial pressure of >15 mmHg. There is no pericardial effusion. CONCLUSIONS -------- 1. The left ventricular size is normal. 2. There is moderate concentric left ventricular hypertrophy. 3. Overall left ventricular systolic function is mildly impaired with, an EF between 45 - 50 %. 4. The right ventricle is moderately enlarged. 5. LA is severely dilated >40 ml/m2 6. 5 ml of Lumason was utilized for enhancement of images. 7. Possible PFO 8. There is mild aortic valve sclerosis. 9. Trace to mild aortic regurgitation. 10. Mild mitral annular calcification present. 11. Mild mitral regurgitation is present. 12. Mild tricuspid regurgitation present. 13. There is moderate pulmonary hypertension. 14. The right ventricular systolic pressure, as measured by Doppler, is 48.38mmHg. 15. The aortic root is dilated measuring 4.2cm. 16. The inferior vena cava is dilated with no significant inspiratory collapse which is consistent es timated right atrial pressure of >15 mmHg. 17. There is no pericardial effusion. ARMATURE VARNISHER: Graciela Chery RDCS
[2020-12-31 08:06] LABS: Anisocytosis Slight; HCT 24.2 % (39.0-53.0); HGB 7.3 gm/dL (13.0-17.5); Hypochromasia Marked; INR 2.7 (<1.2); MCH 24.2 pg (25.0-35.0); MCHC 30.3 g/dL (31.0-37.0); MCV 79.7 fL (80.0-100.0); Mean Platelet Volume 8.6; Microcytosis Slight; Platelet Count 143 k/uL (150-450); Prothrombin Time 26.2 sec (9.0-12.0); RBC 3.03 m/uL (4.30-5.90); RDW 17.9 % (11.5-15.5); WBC 5.5 k/uL (3.8-10.6)
[2020-12-31 08:36] LABS: ALT 10 U/L (4-49); AST 22 U/L (17-59); African American GFR (CKD) 79 (>60 ml/min/1.73 sqM); Albumin 2.8 g/dL (3.5-5.0); Albumin/Globulin Ratio 0.9; Alkaline Phosphatase 119 U/L (38-126); Anion Gap 3 mmol/L; Blood Urea Nitrogen 24 mg/dL (9-20); Calcium 7.9 mg/dL (8.4-10.2); Carbon Dioxide 32 mmol/L (22-30); Chloride 105 mmol/L (98-107); Globulin 3.2 g/dL; Glucose 108 mg/dL (74-99); Magnesium 1.7 mg/dL (1.6-2.3); Non-African American GFR(CKD) 69 (>60 ml/min/1.73 sqM); Potassium 3.6 mmol/L (3.5-5.1); Sodium 140 mmol/L (137-145); Total Bilirubin 0.9 mg/dL (0.2-1.3)
[2020-12-31] MEDS: lisinopriL 20 MG TAB PO SCH (09:15)
[2020-12-31] MEDS: allopurinoL 300 MG TAB PO SCH (09:15)
[2020-12-31] MEDS: carvediloL 12.5 MG TAB PO SCH ×2 (09:16→17:36)
[2020-12-31] MEDS: TAMSULOSIN 0.4 MG CAP.ER.24H PO SCH (09:17)
[2020-12-31] MEDS: MAGNESIUM OXIDE 400 MG TAB PO SCH (09:18)
[2020-12-31] MEDS: NAPROXEN 250 MG TAB PO SCH ×2 (09:18→19:04)
[2020-12-31] MEDS: DIGOXIN 125 MCG TAB PO SCH (09:19)
[2020-12-31] MEDS: metOLazone 5 MG TAB PO SCH (09:20)
[2020-12-31] MEDS: ISOSORBIDE MONONITRATE ER 30 MG TAB.ER.24H PO SCH (09:21)
[2020-12-31] MEDS: FUROSEMIDE 40 MG TAB PO SCH (09:24)
--- NOTE | 2020-12-31 09:46 | P.PN ---
Subjective Progress Note Date: 12/31/20 Principal diagnosis: This 62-year-old white male with atrial fibrillation underlying history of venous stasis chronic wounds who is coming in for generalized weakness. Workup has been nominal. Cardiology was consulted and echocardiogram has been done. We will review results. No fever or chills. But still significant weakness. INR is therapeutic otherwise. The patient states new voiding difficulties. Wound care nurse consult. Objective - Vital Signs Vital signs: Vital Signs Temp 97.7 F 12/31/20 07:17 Pulse 74 12/31/20 07:17 Resp 18 12/31/20 07:17 BP 159/105 12/31/20 07:17 Pulse Ox 99 12/31/20 07:17 Intake & Output 12/30/20 12/31/20 12/31/20 18:59 06:59 18:59 Other: Voiding Method Toilet Diaper # Voids 12 2 - Constitutional General appearance: Present: mild distress - Respiratory Respiratory: bilateral: diminished - Cardiovascular Rhythm: irregularly irregular Heart sounds: normal: S1, S2 Abnormal Heart Sounds: Absent: S3 Gallop - Gastrointestinal General gastrointestinal: Present: soft, tenderness - Integumentary Integumentary Comment(s): Chronic venous stasis ulcer. Integumentary: Present: cellulitis - Psychiatric Psychiatric: Present: A&O x's 3 - Allied health notes Allied health notes reviewed: OT - Labs CBC & Chem 7: 12/31/20 06:20 12/31/20 06:20 Labs: Abnormal Lab Results - Last 24 Hours (Table) 12/30/20 12/31/20 12/31/20 Range/Units 19:13 06:20 06:20 RBC (4.30-5.90) m/uL Hgb (13.0-17.5) gm/dL Hct (39.0-53.0) % MCV (80.0-100.0) fL MCH (25.0-35.0) pg MCHC (31.0-37.0) g/dL RDW (11.5-15.5) % Plt Count (150-450) k/uL PT 35.7 H 26.2 H (9.0-12.0) sec INR 3.7 H 2.7 H (<1.2) Carbon Dioxide 32 H (22-30) mmol/L BUN 24 H (9-20) mg/dL Glucose 108 H (74-99) mg/dL Calcium 7.9 L (8.4-10.2) mg/dL Total Protein 6.0 L (6.3-8.2) g/dL Albumin 2.8 L (3.5-5.0) g/dL 12/31/20 Range/Units 06:20 RBC 3.03 L (4.30-5.90) m/uL Hgb 7.3 L (13.0-17.5) gm/dL Hct 24.2 L (39.0-53.0) % MCV 79.7 L (80.0-100.0) fL MCH 24.2 L (25.0-35.0) pg MCHC 30.3 L (31.0-37.0) g/dL RDW 17.9 H (11.5-15.5) % Plt Count 143 L (150-450) k/uL PT (9.0-12.0) sec INR (<1.2) Carbon Dioxide (22-30) mmol/L BUN (9-20) mg/dL Glucose (74-99) mg/dL Calcium (8.4-10.2) mg/dL Total Protein (6.3-8.2) g/dL Albumin (3.5-5.0) g/dL Microbiology - Last 24 Hours (Table) 12/29/20 22:03 Blood Culture - Preliminary Blood No Growth after 24 hours 12/29/20 21:33 Blood Culture - Preliminary Blood No Growth after 24 hours Assessment and Plan (1) Generalized weakness Current Visit: Yes Status: Acute Code(s): R53.1 - WEAKNESS SNOMED Code(s): 07272357 (2) Venous stasis ulcers of both lower extremities Current Visit: Yes Status: Acute Code(s): I83.019 - VARICOSE VEINS OF RIGHT LOWER EXTREMITY W ULCER OF UNSP SITE; I83.029 - VARICOSE VEINS OF LEFT LOWER EXTREMITY W ULCER OF UNSP SITE; L97.919 - NON-PRS CHRONIC ULC UNSP PRT OF R LOW LEG W UNSP SEVERITY; L97.929 - NON-PRS CHRONIC ULC UNSP PRT OF L LOW LEG W UNSP SEVERITY SNOMED Code(s): 383165960 (3) Atrial fibrillation Current Visit: No Status: Acute Code(s): I48.91 - UNSPECIFIED ATRIAL FIBR ILLATION SNOMED Code(s): 97400555 (4) Hypoxia Current Visit: No Status: Acute Code(s): R09.02 - HYPOXEMIA SNOMED Code(s): 322797403 (5) Severe obesity (BMI >= 40) Current Visit: No Status: Acute Code(s): E66.01 - MORBID (SEVERE) OBESITY DUE TO EXCESS CALORIES SNOMED Code(s): 436841250 (6) Systolic CHF, acute on chronic Current Visit: No Status: Acute Code(s): I50.23 - ACUTE ON CHRONIC SYSTOLIC (CONGESTIVE) HEART FAILURE SNOMED Code(s): 392162390 Plan: Most likely discharge planning element will be necessary. I suspect he will need rehab. Appreciate PT and OT support.
--- NOTE | 2020-12-31 11:28 | P.CONS ---
History of Present Illness - Reason for Consult Consult date: 12/31/20 wound care - History of Present Illness this is a 70-year-old patienthe wound care center whows with Dr. Carney being seen on 4 S. for nonhealing ulcerations to bilateral lower extremities. Patient has history of chronic venous hypertension with ulcers of bilateral lower and nonhealing ulcerations with fat layer exposure to bilateral lower extremities. patient came to the hospital related to weakness. His ulcerations show minimal redness and no signs of infection at this time. Wound #1 status is Open. Original cause of wound was Gradually Appeared. The wound is currently classified as a Full Thickness Without Exposed Support Structures wound with etiologies of Venous Leg Ulcer and Trauma, Other and is located on the Left,Anterior Lower Leg. The wound measures 11.3cm length x 8.3cm width x 0.2cm depth; 73.662cm^2 area and 14.732cm^3 volume. The wound is limited to skin breakdown. There is no tunneling or undermining noted. There is a large amount of serosanguineous drainage noted. Foul odor after cleansing was noted. The wound margin is distinct with the outline attached to the wound base. There is large (67-100%) red granulation within the wound bed. There is a small (1- 33%) amount of necrotic tissue within the wound bed including Adherent Slough. The periwound skin appearance exhibited: Scarring, Maceration, Hemosiderin Staining. The periwound skin appearance did not exhibit: Callus, Crepitus, Exc oriation, Induration, Rash, Dry/Scaly, Atrophie [place], Cyanosis, Ecchymosis, Mottled, Pallor, Rubor, Erythema. Periwound temperature was noted as No Abnormality. The periwound has tenderness on palpation. Wound #2 status is Open. Original cause of wound was Not Known. The wound is currently classified as a Full Thickness Without Exposed Support Structures wound with etiology of Venous Leg Ulcer and is located on the Right,Posterior Lower Leg. The wound measures 2.7cm length x 5.3cm width x 0.2cm depth; 11.239cm^2 area and 2.248cm^3 volume. The wound is limited to skin breakdown. There is no tunneling or undermining noted. There is a medium amount of serous drainage noted. The wound margin is flat and intact. There is large (67-100%) red granulation within the wound bed. There is a small (1-33%) amount of necrotic tissue within the wound bed including Adherent Slough. The periwound skin appearance exhibited: Scarring, Dry/Scaly, Hemosiderin Staining. The periwound skin appearance did not exhibit: Callus, Crepitus, Excoriation, Induration, Rash, Maceration, Atrophie [place], Cyanosis, Ecchymosis, Mottled, Pallor, Rubor, Erythema. Periwound temperature was noted as No Abnormality. The periwound has tenderness on palpation. Wound #3 status is Open. Original cause of wound was Gradually Appeared. The wound is currently classified as a Full Thickness Without Exposed Support Struc tures wound with etiology of Venous Leg Ulcer and is located on the Right,Anterior Lower Leg. The wound measures 3.2cm length x 0.9cm width x 0.1cm depth; 2.262cm^2 area and 0.226cm^3 volume. The wound is limited to skin breakdown. There is a medium amount of serous drainage noted. The wound margin is distinct with the outline attached to the wound base. There is large (67- 100%) red granulation within the wound bed. There is a small (1-33%) amount of necrotic tissue within the wound bed including Adherent Slough. The periwound skin appearance exhibited: Hemosiderin Staining. Periwound temperature was noted as No Abnormality. Wound #4 status is Open. Original cause of wound was Gradually Appeared. The wound is currently classified as a Full Thickness Without Exposed Support Structures wound with etiology of Venous Leg Ulcer and is located on the Medial,Anterior Lower Leg. The wound measures 5.1cm length x 3.2cm width x 0.1cm depth; 12.818cm^2 area and 1.282cm^3 volume. The wound is limited to skin breakdown. There is no tunneling or undermining noted. There is a medium amount of serous drainage noted. The wound margin is distinct with the outline attached to the wound base. There is large (67-100%) red, pink granulation within the wound bed. There is a small (1-33%) amount of necrotic tissue within the wound bed including Adherent Slough. The periwound skin appearance exhibited: Scarring, Dry/Scaly, Maceration. The periwound skin appearance did not exhibit: Callus, Crepitus, Excoriation, Induration, Rash. Review Of Systems: Constitutional: No fever, no chills, no night sweats. No weight change. No weakness, fatigue or lethargy. No daytime sleepiness. Integumentary:reports wounds, no lesions. No rash or pruritus. No unusual bruising. No change in hair or nails. Physical exam: General Appearance: Alert, cooperative, no distress, appears stated age. Skin: See HPI all other Skin color, texture, tugor normal, no rashes or lesions. Neurologic: Alert oriented x3 Assessment: 1. Chronic venous hypertension with ulcer of bilateral lxtremities 2. Nonhealing ulceration right lower extremity multiple areas with fat layer exposure 3. Nonhealing ulcerations of left lower extremity multiple areas of fat layer exposure 4. Lymphedema Plan: 1. Apply absorptive silver moisten and, ABDs and wrap with rolled gauze. Secure with tape. Wrap with Kahlil wr Change Tuesday. 2. Upon discharge patient will return to Hydrofera Blue moistened, ABDs, and r olled gauze, secure with paper tape. Wrap with Kahlil wrap. Change Tuesday. Patient returned to the wound care center for his appointment on January 05 at 2:30. Thank you for the consultation any questions contact the wound care center DNP note has been reviewed and discussed with Dr. Cadet and the impression and plan of care has been directed as dictated. Past Medical History Past Medical History: Atrial Fibrillation, Heart Failure, COPD, Hypertension, Osteoarthritis (OA), Pneumonia, Prostate Disorder, Renal Disease, Sleep A pnea/CPAP/BIPAP, Vascular Disorder Additional Past Medical History / Comment(s): Nonischemic cardiomyopathy, cardiac valve disease, bronchitis, JIMMIE with Cpap and O2 at 2L at hs, past decreased renal function, arthritis bilateral hands/knees, gout bilateral feet, numbness bilateral legs/feet, carpal tunnel syndrome bilaterally, bilateral hand tremors, nonhealing bilateral lower leg wounds/cellulitis, varicosities, lower leg/pedal edema, PVD, BPH. History of Any Multi-Drug Resistant Organisms: MRSA Year Discovered:: 08/30/12 MDRO Source:: LEG(not sure which) Past Surgical History: Heart Catheterization Additional Past Surgical History / Comment(s): Split thickness skin graft to L leg, bronchoscopy, cyst and partial jaw removed/has screws, oral surgery age 8- too many teeth. Past Anesthesia/Blood Transfusion Reactions: Previous Problems w/ Anesthesia Additional Past Anesthesia/Blood Transfusion Reaction / Comm: STATED DURING BRONCH STOPPED BREATHING, (brochoscopy done at [facility]-record on chart) Past Psychological History: Anxiety Additional Psychological History / Comment(s): Pt resides with his spouse, daughter and grandchild. He uses a walker. He has a Cpap/oxygen at home. Smoking Status: Never smoker Past Alcohol Use History: None Reported Additional Past Alcohol Use History / Comment(s): Pt started smoking cigars on occasion in 1981 and quit in 2019 Past Drug Use History: None Reported - Past Family History Father Family Medical History: Dementia, Eye Disorder Additional Family Medical History / Comment(s): MACULAR DEGENERATION Mother Family Medical History: Diabetes Mellitus, Eye Disorder, Vascular Disorder Additional Family Medical History / Comment(s): ANEURYSMS, CATARACTS. Medications and Allergies Home Medications Medication Instructions Recorded Confirmed Type Isosorbide Mononitrate ER [Imdur] 30 mg PO DAILY 04/11/14 12/29/20 History Tamsulosin HCl [Flomax] 0.8 mg PO DAILY 04/11/14 12/29/20 History allopurinoL [Zyloprim] 300 mg PO DAILY 03/03/16 12/29/20 History Carvedilol [Coreg] 25 mg PO BID-W/MEALS 04/25/18 12/29/20 History Naproxen 500 mg PO BID-W/MEALS 04/25/18 12/29/20 History Potassium Chloride 20 meq PO BID-W/MEALS 04/25/18 12/29/20 History lisinopriL [Zestril] 20 mg PO DAILY 04/25/18 12/29/20 History metOLazone [Zaroxolyn] 5 mg PO DAILY 04/25/18 12/29/20 History Digoxin [Lanoxin] 125 mcg PO DAILY 06/09/18 12/29/20 History HYDROcodone/APAP 5-325MG [[place] 1 tab PO Q6H PRN #60 tab 12/26/19 12/29/20 Rx 5-325] Magnesium Oxide 400 mg PO DAILY 12/29/20 12/29/20 History SILVER sulfADIAZINE CREAM 1 applic TOPICAL DAILY 12/29/20 12/29/20 History [Silvadene Cream] Warfarin [Coumadin] 7.5 mg PO DAILY 12/29/20 12/29/20 History Allergies Allergy/AdvReac Type Severity Reaction Status Date / Time No Known Allergies Allergy Verified 12/29/20 22:21 Physical Exam Vitals: Vital Signs Temp Pulse Resp BP Pulse Ox 12/31/20 07:17 97.7 F 74 18 159/105 99 12/31/20 02:06 97.9 F 78 16 166/85 100 12/30/20 19:05 94 16 12/30/20 19:00 98.6 F 94 16 158/86 98 12/30/20 14:00 98.5 F 100 24 146/74 99 Intake and Output 12/30/20 12/31/20 12/31/20 22:59 06:59 14:59 Other: Voiding Method Diaper Toilet Diaper # Voids 1 2 Results CBC & Chem 7: 12/31/20 06:20 12/31/20 06:20 Labs: Abnormal Lab Results - Last 24 Hours (Table) 12/30/20 12/31/20 12/31/20 Range/Units 19:13 06:20 06:20 RBC (4.30-5.90) m/uL Hgb (13.0-17.5) gm/dL Hct (39.0-53.0) % MCV (80.0-100.0) fL MCH (25.0-35.0) pg MCHC (31.0-37.0) g/dL RDW (11.5-15.5) % Plt Count (150-450) k/uL PT 35.7 H 26.2 H (9.0-12.0) sec INR 3.7 H 2.7 H (<1.2) Carbon Dioxide 32 H (22-30) mmol/L BUN 24 H (9-20) mg/dL Glucose 108 H (74-99) mg/dL Calcium 7.9 L (8.4-10.2) mg/dL Total Protein 6.0 L (6.3-8.2) g/dL Albumin 2.8 L (3.5-5.0) g/dL 12/31/20 Range/Units 06:20 RBC 3.03 L (4.30-5.90) m/uL Hgb 7.3 L (13.0-17.5) gm/dL Hct 24.2 L (39.0-53.0) % MCV 79.7 L (80.0-100.0) fL MCH 24.2 L (25.0-35.0) pg MCHC 30.3 L (31.0-37.0) g/dL RDW 17.9 H (11.5-15.5) % Plt Count 143 L (150-450) k/uL PT (9.0-12.0) sec INR (<1.2) Carbon Dioxide (22-30) mmol/L BUN (9-20) mg/dL Glucose (74-99) mg/dL Calcium (8.4-10.2) mg/dL Total Protein (6.3-8.2) g/dL Albumin (3.5-5.0) g/dL Microbiology - Last 24 Hours (Table) 12/29/20 22:03 Blood Culture - Preliminary Blood No Growth after 24 hours 12/29/20 21:33 Blood Culture - Preliminary Blood No Growth after 24 hours Assessment and Plan (1) Chronic venous hypertension (idiopathic) with ulcer and inflammation of bilateral lower extremity Current Visit: Yes Status: Acute Code(s): I87.333 - CHRONIC VENOUS HTN W ULCER AND INFLAM OF BILATERAL LOW EXTRM; L97.919 - NON-PRS CHRONIC ULC UNSP PRT OF R LOW LEG W UNSP SEVERITY; L97.929 - NON-PRS CHRONIC ULC UNSP PRT OF L LOW LEG W UNSP SEVERITY SNOMED Code(s): 699018342009733 (2) Nonhealing ulcer of multiple sites of left lower extremity with fat layer exposed Current Visit: Yes Status: Acute Code(s): L97.922 - NON-PRS CHR ULC UNSP PRT OF L LOW LEG W FAT LAYER EXPOSED SNOMED Code(s): 12748707 (3) Nonhealing ulcer of multiple sites of right lower extremity with fat layer exposed Current Visit: Yes Status: Acute Code(s): L97.912 - NON-PRS CHR ULC UNSP PRT OF R LOW LEG W FAT LAYER EXPOSED SNOMED Code(s): 18152724 (4) Lymphedema Current Visit: Yes Status: Acute Code(s): I89.0 - LYMPHEDEMA, NOT ELSEWHERE CLASSIFIED SNOMED Code(s): 815746439
--- NOTE | 2020-12-31 11:40 | CDI ---
Documentation Clarification Form Date: 12/31/2020 11:25:27 AM From: Darlin Garcia RN CCDS Admit Date: 12/31/2020 08:15:00 AM Patient Name: Lowell Barraza Visit Number: [id number] Discharge Date: ATTENTION: The Clinical Documentation Specialists (CDI) and [facility] Coding Staff appreciate your assistance in clarifying documentation. Please respond to the clarification below the line at the bottom and electronically sign. The CDI & [facility] Coding staff will review the response and follow-up if needed. Please note: Queries are made part of the Legal Health Record. If you have any questions, please contact the author of this message via ITS. Dr. Wiliam Modi Acute on Chronic Systolic CHF is documented 12/30, H&P, which may lack sufficient clinical evidence/support in the medical record. Additional clarification is requested. History/Risk Factors: 70-year-old male presents to the ED with new onset weakness. Medical History: chronic bilateral lower extremity venous stasis wounds, Atrial fibrillation and Heart failure. H&P 12/30. Clinical Indicators: ECHO: 12/30 ef 45-50%; Possible PFO; mild aortic regurgitation; trace to mild aortic regurgitation. mild mitral regurgitation; mild tricuspid regurgitation and moderate pulmonary hypertension. Treatment: 12/30 Coreg 25mg PO BID to current; 12/31 Lasix 40mg PO Daily to current; Imdur 30mg PO daily to current Please clarify if Acute on Chronic Systolic CHF is a valid diagnosis? [ ] Yes, Acute on Chronic Systolic CHF is present as evidence by (additional clinical support): [ x] No, Acute on Chronic Systolic CHF is ruled out [ ] Other (please specify diagnosis) [ ] Unable to determine (Template Last Revised: August 2020) MTDD
[2020-12-31] MEDS: VANCOMYCIN 2,000 MG in SODIUM CHLORIDE 0.9% 500 ML 500 ML IVPB SCH ×2 (12:01→23:28)
--- NOTE | 2020-12-31 12:36 | CDI ---
Documentation Clarification Form Date: 12/31/2020 12:03:03 PM From: Darlin Garcia RN CCDS Admit Date: 12/31/2020 08:15:00 AM Patient Name: Lowell Barraza Visit Number: [id number] Discharge Date: ATTENTION: The Clinical Documentation Specialists (CDI) and [facility] Coding Staff appreciate your assistance in clarifying documentation. Please respond to the clarification below the line at the bottom and electronically sign. The CDI & [facility] Coding staff will review the response and follow-up if needed. Please note: Queries are made part of the Legal Health Record. If you have any questions, please contact the author of this message via ITS. Dr. Wiliam Modi, The patients principal diagnosis the diagnosis that was chiefly responsible for the admission - has not been clearly identified and clarification is requested. The patient presented with the following New onset weakness and chills; unable6 to do ADLs, lower extremity chronic wounds. History/Risk factors: 70-year-old male presents to the ED with new onset weakness. Medical History: chronic bilateral lower extremity venous stasis wounds, Atrial fibrillation, and Heart failure. H&P 12/30. Clinical Indicators: Lab findings: 12/29 Wbc 12.5; Hgb 8.0; Neutrophils 11.6; Inr 3.7; Glucose 145; Lactic acid 2.2; Calcium 8.3; Mag 1.5; Total Bili 1.4; Alk phos 143; Albumin 3.3 Blood Culture: No growth after 24 hours 12/31. CXR: 12/29 Heart is enlarged. ECHO: 12/30 EF 45-50%; Possible PFO; mild aortic regurgitation; trace to mild aortic regurgitation. mild mitral regurgitation; mild tricuspid regurgitation and moderate pulmonary hypertension. Vital Signs: 12/29 B/P 147/86, HR 108, Temp 99.8 F Oral, RR 20, SpO2 93% room air. Cardiology Consult 12/30: Generalized weakness; Fever; Chills; Fatigue; Nonischemic cardiomyopathy with EF 45%; Chronic persistent atrial fibrillation HTN; Hypomagnesemia and Hypokalemia. Treatment: 12/29 0.9NS Q31M x1; 12/29 Rocephin 1,000mg IVP X 1; 12/29 Vancomycin 2,000mg IVPB x 1; 12/30 Vancomycin 2,000mg IVPB Q12H to current12/30 Coreg 25mg PO BID to current; 12/30 Imdur 30mg PO Daily to current; 12/31 Lasix 40mg PO Daily to current. Consults: Cardiology consult for weakness see above. In your professional opinion, can you please clarify which diagnosis, after study, was the reason chiefly responsible for the admission? [ x]Generalized weakness secondary to Infection (specify) [ ]Generalized weakness secondary to (specify) [ ] Other, please specify [ ] Unable to determine (Template Last Revised: August 2020) MTDD
--- NOTE | 2020-12-31 14:38 | P.PN ---
Subjective This is a 69-year-old gentleman with history of nonischemic cardiomyopathy with EF 45%, nonobstructive coronary artery disease, chronic atr ial fibrillation (on coumadin), hypertension, COPD, chronic kidney disease. He follows in the office with Dr. Pendleton. We have been asked to see in consultation for congestive heart failure. Echocardiogram revealed an EF of 45-50%, RV is mildly enlarged, LA severely dilated, mild aortic regurgitation, mild mitral regurgitation, mild tricuspid regurgitation, moderate pulmonary hypertension with an RVSP of 40 mmHg, aortic root is dilated measuring 4.2 cm, estimated right atrial pressure of >15mmHg. Most recent cardiac catheterization 12/2011 which revealed nonobstructive coronary artery disease. Proximal LAD with 40-50% disease. Most recent echocardiogram 11/2019 revealed an EF of 40-45%, trace mitral regurgitation, mild tricuspid regurgitation, severe concentric left ventricular hypertrophy Chest xray no active cardiopulmonary disease. Cardiomegaly. Increased mild kyphosis compared to old exam. 12/31/2020: Patient seen and examined at beside no acute distress. Blood pressure 137/76, heart rate 77, afebrile, maintaining oxygen saturation is 96% on 2 L nasal cannula. Laboratory reviewed, to be C5 0.5, hemoglobin 7.3, platelets 143, INR is 2.7, sodium 140, potassium 3.6, BUN 24, serum creatinine 1.1, magnesium 1.7. Currently being maintained on Coreg 25 mg twice a day, lisinopril 20 mg daily, magnesium oxide 400 mg daily, Imdur 30 mg daily, digoxin 125mcg daily, coumadin daily PHYSICAL EXAMINATION Blood pressure 151/85 heart rate 94 afebrile, Tmax 99.8 and maintaining oxygen saturation 100% on 2 L nasal cannula CONSTITUTIONAL: No apparent distress. HEENT: Head is normocephalic. No JVD. No carotid bruit. CHEST EXAMINATION: Lungs are clear to auscultation. HEART EXAMINATION: Irregular rate and rhythm. S1, S2 heard. Systolic murmur noted. ABDOMEN: Soft, nontender. Positive bowel sounds. EXTREMITIES: 2+ peripheral pulses, moderate bilateral extremity edema and no lucille f tenderness. Skin: bilateral lower extremity wounds wrapped in dressings with serosangeouins fluid NEUROLOGIC EXAMINATION: Patient is awake, alert and oriented x3. ASSESSMENT Generalized weakness Fever, Chills, Fatigue Nonischemic cardiomyopathy with EF 45% Nobstructive coronary artery disease Chronic persistant atrial fibrillation (on coumadin) Hypertension COPD Chronic kidney disease Supratherapeutic INR- improving 2.7 today Hypomagnesima= improving Hypokalemia - improving PLAN Recommend coumadin 4mg tonight No further recommendations from cardiology standpoint Continue patient's home cardiac medications We will see the patient on an as needed basis. Please reach out with any other questions or concerns. Nurse Practitioner note has been reviewed, I agree with a documented findings and plan of care. Patient was seen and examined Objective - Vital Signs Vital signs: Vital Signs Temp 97.7 F 12/31/20 13:47 Pulse 77 12/31/20 13:47 Resp 19 12/31/20 13:47 BP 137/76 12/31/20 13:47 Pulse Ox 96 12/31/20 13:47 Intake & Output 12/30/20 12/31/20 12/31/20 18:59 06:59 18:59 Other: Voiding Method Toilet Diaper # Voids 12 2 - Labs CBC & Chem 7: 12/31/20 06:20 12/31/20 06:20 Labs: Abnormal Lab Results - Last 24 Hours (Table) 12/30/20 12/31/20 12/31/20 Range/Units 19:13 06:20 06:20 RBC (4.30-5.90) m/uL Hgb (13.0-17.5) gm/dL Hct (39.0-53.0) % MCV (80.0-100.0) fL MCH (25.0-35.0) pg MCHC (31.0-37.0) g/dL RDW (11.5-15.5) % Plt Count (150-450) k/uL PT 35.7 H 26.2 H (9.0-12.0) sec INR 3.7 H 2.7 H (<1.2) Carbon Dioxide 32 H (22-30) mmol/L BUN 24 H (9-20) mg/dL Glucose 108 H (74-99) mg/dL Calcium 7.9 L (8.4-10.2) mg/dL Total Protein 6.0 L (6.3-8.2) g/dL Albumin 2.8 L (3.5-5.0) g/dL 12/31/20 Range/Units 06:20 RBC 3.03 L (4.30-5.90) m/uL Hgb 7.3 L (13.0-17.5) gm/dL Hct 24.2 L (39.0-53.0) % MCV 79.7 L (80.0-100.0) fL MCH 24.2 L (25.0-35.0) pg MCHC 30.3 L (31.0-37.0) g/dL RDW 17.9 H (11.5-15.5) % Plt Count 143 L (150-450) k/uL PT (9.0-12.0) sec INR (<1.2) Carbon Dioxide (22-30) mmol/L BUN (9-20) mg/dL Glucose (74-99) mg/dL Calcium (8.4-10.2) mg/dL Total Protein (6.3-8.2) g/dL Albumin (3.5-5.0) g/dL Microbiology - Last 24 Hours (Table) 12/29/20 22:03 Blood Culture - Preliminary Blood No Growth after 24 hours 12/29/20 21:33 Blood Culture - Preliminary Blood No Growth after 24 hours
[2020-12-31] MEDS: SODIUM CHLORIDE 0.9% 1,000 ML IV SCH ×2 (15:33→23:30)
[2020-12-31] MEDS: WARFARIN 2 MG TAB PO SCH (17:36)
[2020-12-31] MEDS ORDERED: WARFARIN 0.5 MG TAB PO ONE (18:00)
[2020-12-31] MEDS ORDERED: WARFARIN 3 MG TAB PO SCH (18:00)
[2020-12-31 18:08] LABS: Hemoglobin A1C 5.5 % (4.0-6.0)
[2021-01-01] MEDS: allopurinoL 300 MG TAB PO SCH (07:27)
[2021-01-01] MEDS: ISOSORBIDE MONONITRATE ER 30 MG TAB.ER.24H PO SCH (07:28)
[2021-01-01] MEDS: DIGOXIN 125 MCG TAB PO SCH ×2 (07:28→07:30)
[2021-01-01] MEDS: NAPROXEN 250 MG TAB PO SCH ×2 (07:28→17:05)
[2021-01-01] MEDS: carvediloL 12.5 MG TAB PO SCH ×2 (07:28→17:05)
[2021-01-01] MEDS: metOLazone 5 MG TAB PO SCH (07:30)
[2021-01-01] MEDS: TAMSULOSIN 0.4 MG CAP.ER.24H PO SCH (07:30)
[2021-01-01] MEDS: MAGNESIUM OXIDE 400 MG TAB PO SCH (07:30)
[2021-01-01] MEDS: FUROSEMIDE 40 MG TAB PO SCH (07:31)
[2021-01-01] MEDS: lisinopriL 20 MG TAB PO SCH (07:31)
[2021-01-01 08:15] LABS: INR 2.3 (<1.2); Prothrombin Time 22.5 sec (9.0-12.0)
[2021-01-01] MEDS ORDERED: VANCOMYCIN TROUGH DUE 1 EACH MISC MISCELLANE ONE (11:00)
[2021-01-01] MEDS: VANCOMYCIN 1,500 MG in SODIUM CHLORIDE 0.9% 250 ML IVPB SCH ×2 (12:39→23:33)
[2021-01-01 14:14] LABS: African American GFR (CKD) 89.2 (60.0-200.0); Albumin 3.1 g/dL (3.80-4.90); Albumin/Globulin Ratio 1.03 (1.60-3.17); Calcium 7.8 mg/dL (8.7-10.3); Potassium 3.2 mmol/L (3.5-5.5); Total Protein 6.1 g/dL (6.2-8.2)
[2021-01-01] MEDS ORDERED: Potassium Replacement Protocol 1 EACH MISC MISCELLANE PRN (16:18)
[2021-01-01] MEDS: POTASSIUM CHLORIDE ER 20 MEQ TAB.ER PO SCH ×2 (17:04→17:41)
[2021-01-01] MEDS: SODIUM CHLORIDE 0.9% 1,000 ML IV SCH ×2 (17:06→19:09)
[2021-01-01] MEDS: WARFARIN 2 MG TAB PO SCH (17:42)
--- NOTE | 2021-01-01 22:14 | P.PN ---
Subjective Principal diagnosis: This 62-year-old white male with atrial fibrillation underlying history of venous stasis chronic wounds who is coming in for generalized weakness. Workup has been nominal. Cardiology was consulted and echocardiogram has been done. We will review results. No fever or chills. But still significant weakness. INR is therapeutic otherwise. The patient states new voiding difficulties. Wound care nurse consult Is appreciated. He is up in bed and move to a chair. Increase mobility with wound dressing changes noted today. Objective - Vital Signs Vital signs: Vital Signs Temp 97.9 F 01/01/21 14:00 Pulse 64 01/01/21 14:00 Resp 18 01/01/21 14:00 BP 144/77 01/01/21 14:00 Pulse Ox 99 01/01/21 14:00 Intake & Output 01/01/21 01/01/21 01/02/21 06:59 18:59 06:59 Intake Total 1700 Output Total 350 Balance 1350 Intake: Intake, IV Titration 1400 Amount Sodium Chloride 0.9% 1, 900 000 ml @ 75 mls/hr IV . [id number] JULIEN Rx#:[id number] Vancomycin 2,000 mg In 500 Sodium Chloride 0.9% 500 ml 500 ml @ 167 mls/hr IVPB Q12H JULIEN Rx#: [id number] Oral 300 Output: Urine 350 Other: Voiding Method Urinal Urinal # Voids 2 # Bowel Movements 1 - Constitutional General appearance: Present: morbidly obese - EENT Eyes: Absent: abnormal pupil - Respiratory Respiratory: bilateral: CTA - Cardiovascular Rhythm: irregularly irregular Heart sounds: normal: S1, S2 Abnormal Heart Sounds: Present: S3 Gallop. Absent: S4 Gallop - Integumentary Integumentary: Present: cellulitis - Musculoskeletal Musculoskeletal: Present: generalized weakness - Psychiatric Psychiatric: Present: A&O x's 3 - Labs CBC & Chem 7: 12/31/20 06:20 01/01/21 06:57 Labs: Abnormal Lab Results - Last 24 Hours (Table) 01/01/21 01/01/21 Range/Units 06:57 06:57 PT 22.5 H (9.0-12.0) sec INR 2.3 H (<1.2) Potassium 3.2 L (3.5-5.5) mmol/L Carbon Dioxide 33.0 H (21.6-31.8) mmol/L BUN/Creatinine Ratio 22.00 H (12.00-20.00) Ratio Calcium 7.8 L (8.7-10.3) mg/dL Total Protein 6.1 L (6.2-8.2) g/dL Albumin 3.10 L (3.80-4.90) g/dL Albumin/Globulin Ratio 1.03 L (1.60-3.17) g/dL Microbiology - Last 24 Hours (Table) 12/29/20 22:03 Blood Culture - Preliminary Blood No Growth after 48 hours 12/29/20 21:33 Blood Culture - Preliminary Blood No Growth after 48 hours Assessment and Plan (1) Generalized weakness Current Visit: Yes Status: Acute Code(s): R53.1 - WEAKNESS SNOMED Code(s): 25268077 (2) Venous stasis ulcers of both lower extremities Current Visit: Yes Status: Acute Code(s): I83.019 - VARICOSE VEINS OF RIGHT LOWER EXTREMITY W ULCER OF UNSP SITE; I83.029 - VARICOSE VEINS OF LEFT LOWER EXTREMITY W ULCER OF UNSP SITE; L97.919 - NON-PRS CHRONIC ULC UNSP PRT OF R LOW LEG W UNSP SEVERITY; L97.929 - NON-PRS CHRONIC ULC UNSP PRT OF L LOW LEG W UNSP SEVERITY SNOMED Code(s): 055624697 (3) Atrial fibrillation Current Visit: No Status: Acute Code(s): I48.91 - UNSPECIFIED ATRIAL FIBRILLATION SNOMED Code(s): 79596725 (4) Hypoxia Current Visit: No Status: Acute Code(s): R09.02 - HYPOXEMIA SNOMED Code(s): 169295065 (5) Severe obesity (BMI >= 40) Current Visit: No Status: Acute Code(s): E66.01 - MORBID (SEVERE) OBESITY DUE TO EXCESS CALORIES SNOMED Code(s): 364707112 (6) Systolic CHF, acute on chronic Current Visit: No Status: Acute Code(s): I50.23 - ACUTE ON CHRONIC SYSTOLIC (CONGESTIVE) HEART FAILURE SNOMED Code(s): 929061959 Plan: Considerable improvement to mobility but still poor stamina. Appreciate therapy with wound control. Check CBC and CMP in a.m. Discharge planning for possible placement. Time with Patient: Greater than 30
[2021-01-02 09:14] LABS: HCT 27.1 % (39.6-50.0); HGB 7.3 g/dL (13.0-17.0); MCH 22.5 pg (27.0-32.0); MCHC 26.9 g/dL (32.0-37.0); MCV 83.6 fL (80.0-97.0); Mean Platelet Volume 10.6 fL (9.5-12.2); Platelet Count 178 X 10*3/uL (140-440); RBC 3.24 X 10*6/uL (4.40-5.60); RDW 17.9 % (11.5-14.5); WBC 5.06 X 10*3/uL (4.50-10.00)
[2021-01-02] MEDS: metOLazone 5 MG TAB PO SCH (09:19)
[2021-01-02] MEDS: NAPROXEN 250 MG TAB PO SCH ×2 (09:19→16:41)
[2021-01-02] MEDS: DIGOXIN 125 MCG TAB PO SCH (09:20)
[2021-01-02] MEDS: allopurinoL 300 MG TAB PO SCH (09:20)
[2021-01-02] MEDS: carvediloL 12.5 MG TAB PO SCH ×2 (09:20→16:41)
[2021-01-02] MEDS: TAMSULOSIN 0.4 MG CAP.ER.24H PO SCH (09:20)
[2021-01-02] MEDS: ISOSORBIDE MONONITRATE ER 30 MG TAB.ER.24H PO SCH (09:20)
[2021-01-02] MEDS: MAGNESIUM OXIDE 400 MG TAB PO SCH (09:20)
[2021-01-02] MEDS: lisinopriL 20 MG TAB PO SCH (09:20)
[2021-01-02] MEDS: HYDROcodone/APAP 5-325MG 1 EACH TAB PO PRN ×2 (09:21→16:41)
[2021-01-02] MEDS: FUROSEMIDE 40 MG TAB PO SCH (09:21)
[2021-01-02 09:41] LABS: INR 2.09 (0.90-1.11); Prothrombin Time 21.7 sec (9.9-11.9)
[2021-01-02 10:29] LABS: African American GFR (CKD) 89.2 (60.0-200.0); Albumin 3.2 g/dL (3.80-4.90); Albumin/Globulin Ratio 1.03 (1.60-3.17); Anion Gap 8.3 mmol/L (4.00-12.00); Carbon Dioxide 29.7 mmol/L (21.6-31.8); Globulin 3.1 g/dL (1.6-3.3); Potassium 3.2 mmol/L (3.5-5.5); Total Bilirubin 0.9 mg/dL (0.2-1.2); Total Protein 6.3 g/dL (6.2-8.2)
[2021-01-02] MEDS: VANCOMYCIN 1,500 MG in SODIUM CHLORIDE 0.9% 250 ML IVPB SCH (12:46)
[2021-01-02 13:38] VITALS: BP 160/81; PULSE 50; RESP 19; TEMP 97.9
--- NOTE | 2021-01-02 15:57 | P.DS ---
Providers Date of admission: 12/31/20 08:15 Expected date of discharge: 01/02/21 Attending physician: Wiliam Modi Consults: 12/30/20 08:27 Consult Physician Routine Consulting Provider: Alexander Pendleton Consult Reason/Comments: heart failure and weakness Do you want consulting provider notified?: Yes Primary care physician: Wiliam Modi [facility] Hospital Course: Final Diagnoses: Current Visit: Yes Status: Acute Code(s): R53.1 - WEAKNESS SNOMED Code(s): 06312047 (2) Venous stasis ulcers of both lower extremities, referred to wound care team's measurements Current Visit: Yes Status: Acute Code(s): I83.019 - VARICOSE VEINS OF RIGHT LOWER EXTREMITY W ULCER OF UNSP SITE; I83.029 - VARICOSE VEINS OF LEFT LOWER EXTREMITY W ULCER OF UNSP SITE; L97.919 - NON-PRS CHRONIC ULC UNSP PRT OF R LOW LEG W UNSP SEVERITY; L97.929 - NON-PRS CHRONIC ULC UNSP PRT OF L LOW LEG W UNSP SEVERITY SNOMED Code(s): 472317791 (3) Atrial fibrillation, chronic persistent Current Visit: No Status: Acute Code(s): I48.91 - UNSPECIFIED ATRIAL FIBRILLATION SNOMED Code(s): 83781739 (4) Hypoxia Current Visit: No Status: Acute Code(s): R09.02 - HYPOXEMIA SNOMED Code(s): 712542705 (5) Severe obesity (BMI >= 40) Current Visit: No Status: Acute Code(s): E66.01 - MORBID (SEVERE) OBESITY DUE TO EXCESS CALORIES SNOMED Code(s): 003486233 (6) Systolic CHF, acute on chronic, non-ischemic cardiomyopathy, EF 45% Current Visit: No Status: Acute Code(s): I50.23 - ACUTE ON CHRONIC SYSTOLIC (CONGESTIVE) HEART FAILURE SNOMED Code(s): 613484407 Hospital course:This 62-year-old white male with atrial fibrillation underlying history of venous stasis chronic wounds who is coming in for generalized weakness. Workup has been nominal. Cardiology was consulted and echocardiogram has been done. We will review results. No fever or chills. But still significant weakness. INR is therapeutic otherwise. The patient states new voiding difficulties. Wound care nurse consult Is appreciated. He is up in bed and move to a chair. Increase mobility with wound dressing changes noted today. Significant clinical improvement the patient. Authorization has been received for [facility] subacute rehab. Cleared by cardiology for discharge. Patient will be discharged today to [facility] in a stable condition with guarded prognosis. PT/INR daily. The impression and plan of care has been dictated as directed. : I performed a history and examination of this patient, discussed the same with the dictator. I agree with the dictator's note ,documented as a scribe. Any additional findings or plans will be noted. Patient Condition at Discharge: Stable Plan - Discharge Summary Discharge Rx Participant: No New Discharge Prescriptions: New Amoxicillin/Potassium Clav [Augmentin 875-125 Tablet] 1 tab PO BID 1 Days #14 tab Warfarin [Coumadin] 6 mg PO ONCE@1800 #30 tab HYDROcodone/APAP 5-325MG [[place] 5-325] 1 tab PO Q6HR PRN 3 Days #12 tab PRN Reason: Pain Continue Tamsulosin HCl [Flomax] 0.8 mg PO DAILY Isosorbide Mononitrate ER [Imdur] 30 mg PO DAILY allopurinoL [Zyloprim] 300 mg PO DAILY Potassium Chloride 20 meq PO BID-W/MEALS Naproxen 500 mg PO BID-W/MEALS Carvedilol [Coreg] 25 mg PO BID-W/MEALS metOLazone [Zaroxolyn] 5 mg PO DAILY lisinopriL [Zestril] 20 mg PO DAILY Digoxin [Lanoxin] 125 mcg PO DAILY HYDROcodone/APAP 5-325MG [[place] 5-325] 1 tab PO Q6H PRN #60 tab PRN Reason: Pain SILVER sulfADIAZINE CREAM [Silvadene Cream] 1 applic TOPICAL DAILY Magnesium Oxide 400 mg PO DAILY Discontinued Warfarin [Coumadin] 7.5 mg PO DAILY Discharge Medication List Isosorbide Mononitrate ER [Imdur] 30 mg PO DAILY 04/11/14 [History] Tamsulosin HCl [Flomax] 0.8 mg PO DAILY 04/11/14 [History] allopurinoL [Zyloprim] 300 mg PO DAILY 03/03/16 [History] Carvedilol [Coreg] 25 mg PO BID-W/MEALS 04/25/18 [History] Naproxen 500 mg PO BID-W/MEALS 04/25/18 [History] Potassium Chloride 20 meq PO BID-W/MEALS 04/25/18 [History] lisinopriL [Zestril] 20 mg PO DAILY 04/25/18 [History] metOLazone [Zaroxolyn] 5 mg PO DAILY 04/25/18 [History] Digoxin [Lanoxin] 125 mcg PO DAILY 06/09/18 [History] HYDROcodone/APAP 5-325MG [[place] 5-325] 1 tab PO Q6H PRN #60 tab 12/26/19 [Rx] Magnesium Oxide 400 mg PO DAILY 12/29/20 [History] SILVER sulfADIAZINE CREAM [Silvadene Cream] 1 applic TOPICAL DAILY 12/29/20 [History] Amoxicillin/Potassium Clav [Augmentin 875-125 Tablet] 1 tab PO BID 1 Days #14 tab 01/02/21 [Rx] HYDROcodone/APAP 5-325MG [[place] 5-325] 1 tab PO Q6HR PRN 3 Days #12 tab 01/02/21 [Rx] Warfarin [Coumadin] 6 mg PO ONCE@1800 #30 tab 01/02/21 [Rx] Follow up Appointment(s)/Referral(s): Alexander Pendleton MD [STAFF PHYSICIAN] - 2 Weeks Wiliam Modi MD [Primary Care Provider] - 1-2 days [facility], [NON-STAFF] - 1-2 Days
--- NOTE | 2021-01-02 16:35 | P.DS ---
Providers Date of admission: 12/31/20 08:15 Expected date of discharge: 01/02/21 Attending physician: Wiliam Modi Consults: 12/30/20 08:27 Consult Physician Routine Consulting Provider: Alexander Pendleton Consult Reason/Comments: heart failure and weakness Do you want consulting provider notified?: Yes Primary care physician: Wiliam Modi - Discharge Diagnosis(es) (1) Generalized weakness Current Visit: Yes Status: Acute (2) Venous stasis ulcers of both lower extremities Current Visit: Yes Status: Acute (3) Atrial fibrillation Current Visit: No Status: Acute (4) Hypoxia Current Visit: No Status: Acute (5) Severe obesity (BMI >= 40) Current Visit: No Status: Acute (6) Systolic CHF, acute on chronic Current Visit: No Status: Acute Hospital Course: The patient is a 70 yo white male who is admitted for generalized weakness and chronic LE wound. Underlying history of atrial fibrillation and heart failure. He was admitted for weakness. PT was instituted. Cardiology was consulted and was cleared.. Due to his weakness he is admitted for ECF and PT. No voiding difficulties. Antibiotics and wound care to be instituted for chronic wound issues as well. Patient Condition at Discharge: Stable Plan - Discharge Summary Discharge Rx Participant: No New Discharge Prescriptions: New Amoxicillin/Potassium Clav [Augmentin 875-125 Tablet] 1 tab PO BID 1 Days #14 tab Warfarin [Coumadin] 6 mg PO ONCE@1800 #30 tab HYDROcodone/APAP 5-325MG [[place] 5-325] 1 tab PO Q6HR PRN 3 Days #12 tab PRN Reason: Pain Continue Tamsulosin HCl [Flomax] 0.8 mg PO DAILY Isosorbide Mononitrate ER [Imdur] 30 mg PO DAILY allopurinoL [Zyloprim] 300 mg PO DAILY Potassium Chloride 20 meq PO BID-W/MEALS Naproxen 500 mg PO BID-W/MEALS Carvedilol [Coreg] 25 mg PO BID-W/MEALS metOLazone [Zaroxolyn] 5 mg PO DAILY lisinopriL [Zestril] 20 mg PO DAILY Digoxin [Lanoxin] 125 mcg PO DAILY HYDROcodone/APAP 5-325MG [[place] 5-325] 1 tab PO Q6H PRN #60 tab PRN Reason: Pain SILVER sulfADIAZINE CREAM [Silvadene Cream] 1 applic TOPICAL DAILY Magnesium Oxide 400 mg PO DAILY Discontinued Warfarin [Coumadin] 7.5 mg PO DAILY Discharge Medication List Isosorbide Mononitrate ER [Imdur] 30 mg PO DAILY 04/11/14 [History] Tamsulosin HCl [Flomax] 0.8 mg PO DAILY 04/11/14 [History] allopurinoL [Zyloprim] 300 mg PO DAILY 03/03/16 [History] Carvedilol [Coreg] 25 mg PO BID-W/MEALS 04/25/18 [History] Naproxen 500 mg PO BID-W/MEALS 04/25/18 [History] Potassium Chloride 20 meq PO BID-W/MEALS 04/25/18 [History] lisinopriL [Zestril] 20 mg PO DAILY 04/25/18 [History] metOLazone [Zaroxolyn] 5 mg PO DAILY 04/25/18 [History] Digoxin [Lanoxin] 125 mcg PO DAILY 06/09/18 [History] HYDROcodone/APAP 5-325MG [[place] 5-325] 1 tab PO Q6H PRN #60 tab 12/26/19 [Rx] Magnesium Oxide 400 mg PO DAILY 12/29/20 [History] SILVER sulfADIAZINE CREAM [Silvadene Cream] 1 applic TOPICAL DAILY 12/29/20 [History] Amoxicillin/Potassium Clav [Augmentin 875-125 Tablet] 1 tab PO BID 1 Days #14 tab 01/02/21 [Rx] HYDROcodone/APAP 5-325MG [[place] 5-325] 1 tab PO Q6HR PRN 3 Days #12 tab 01/02/21 [Rx] Warfarin [Coumadin] 6 mg PO ONCE@1800 #30 tab 01/02/21 [Rx] Follow up Appointment(s)/Referral(s): Alexander Pendleton MD [STAFF PHYSICIAN] - 2 Weeks [facility], [NON-STAFF] - 1-2 Days Wiliam Modi MD [Primary Care Provider] - 1 Week Activity/Diet/Wound Care/Special Instructions: PT/INR daily CBC, BMP in 3 days Discharge Disposition: TRANSFER TO SNF/ECF
[2021-01-02] MEDS ORDERED: WARFARIN 3 MG TAB PO ONE (18:00)
== END 2021-01-02 18:55 | DRG 300 ==
LOC: EC 20:17 → 4SSUR 22:23 → OBSVTOIN 12-31 08:15
PROVIDERS: ADMIT Family Medicine; ATTEND Family Medicine
DX: I83.018 Varicose veins of right lower extremity with ulcer other part of lower leg (principal); I13.0 Hypertensive heart and chronic kidney disease with heart failure and stage 1 through stage 4 chronic kidney disease, or unspecified chronic kidney disease; I48.19 Other persistent atrial fibrillation; Z68.41 Body mass index [BMI] 40.0-44.9, adult; I42.8 Other cardiomyopathies; L97.812 Non-pressure chronic ulcer of other part of right lower leg with fat layer exposed; L97.822 Non-pressure chronic ulcer of other part of left lower leg with fat layer exposed; I50.22 Chronic systolic (congestive) heart failure; I83.028 Varicose veins of left lower extremity with ulcer other part of lower leg; D64.9 Anemia, unspecified; R53.1 Weakness; I25.10 Atherosclerotic heart disease of native coronary artery without angina pectoris; E87.6 Hypokalemia; N18.9 Chronic kidney disease, unspecified; J44.9 Chronic obstructive pulmonary disease, unspecified; E66.01 Morbid (severe) obesity due to excess calories; G47.30 Sleep apnea, unspecified; I87.8 Other specified disorders of veins; G47.33 Obstructive sleep apnea (adult) (pediatric); I73.9 Peripheral vascular disease, unspecified; M10.9 Gout, unspecified; M15.9 Polyosteoarthritis, unspecified; I08.3 Combined rheumatic disorders of mitral, aortic and tricuspid valves; I89.0 Lymphedema, not elsewhere classified; E83.42 Hypomagnesemia; I27.20 Pulmonary hypertension, unspecified; R09.02 Hypoxemia; R79.1 Abnormal coagulation profile; Z79.899 Other long term (current) drug therapy; Z87.891 Personal history of nicotine dependence; Z79.01 Long term (current) use of anticoagulants; Z83.3 Family history of diabetes mellitus
CPT/HCPCS: 36415; 71046; 80053; 80202; 81003; 83036; 83605; 83735; 84484; 85025; 85027; 85610; 85730; 87040; 87635; 93005; 93306; 94760; 96361; 96374; 99285

== ENCOUNTER 2021-02-27 11:58 | Inpatient (IN) | payer MEDICARE, BC ==
[2021-02-27 14:53] LABS: Anisocytosis Slight; HGB 7.8 gm/dL (13.0-17.5); Hypochromasia Marked; MCH 22.8 pg (25.0-35.0); MCHC 28.8 g/dL (31.0-37.0); MCV 79.3 fL (80.0-100.0); Mean Platelet Volume 8.1; Microcytosis Slight; Platelet Count 175 k/uL (150-450); Poikilocytosis Slight; RDW 17.1 % (11.5-15.5); WBC 4.6 k/uL (3.8-10.6)
[2021-02-27 15:13] LABS: Albumin 3.5 g/dL (3.5-5.0); Calcium 8.6 mg/dL (8.4-10.2); Magnesium 1.7 mg/dL (1.6-2.3); Potassium 4.7 mmol/L (3.5-5.1); Total Protein 7.2 g/dL (6.3-8.2)
[2021-02-27 15:18] LABS: INR 1.3 (<1.2); Prothrombin Time 13.2 sec (9.0-12.0)
--- NOTE | 2021-02-27 16:03 | ED ---
General Adult HPI - General Chief complaint: Extremity Problem,Nontraumatic Stated complaint: Testicle Swelling,CHF Time Seen by Provider: 02/27/21 14:44 Source: patient Mode of arrival: wheelchair Limitations: no limitations - History of Present Illness Initial comments: Patient is a 70-year-old male with history of A. fib on coumadin, CHF, COPD, renal disease, presenting to the emergency Department with complaints of increasing bilateral lower leg swelling, increase in shortness of breath, his doctor was concerned for CHF. Patient states he is supposed to take 40 mg of Lasix daily but does not follow with that, he states he sometimes takes 20 mg every few days. Due to symptoms have been increasing over the past week or 2. He's noticed increased swelling to his scrotum as well. He denies any pain in his scrotum. He states he goes to wound care for chronic wound on his lower legs that seem to be getting worse as well. He denies any fevers or chills. He denies any chest pain, no abdominal pain, no nausea or vomiting. He states his shortness of breath is getting worse over the past 1-2 weeks. He does not recall the last time his INR was checked, he thinks they changed his dosing just a few weeks ago. He has no further complaints at this time. Patient's vital signs are stable upon arrival. - Related Data Home Medications Medication Instructions Recorded Confirmed Isosorbide Mononitrate ER [Imdur] 30 mg PO DAILY 04/11/14 02/27/21 Tamsulosin HCl [Flomax] 0.8 mg PO DAILY 04/11/14 02/27/21 allopurinoL [Zyloprim] 300 mg PO HS 03/03/16 02/27/21 Carvedilol [Coreg] 25 mg PO BID-W/MEALS 04/25/18 02/27/21 Naproxen 500 mg PO BID-W/MEALS 04/25/18 02/27/21 Potassium Chloride 20 meq PO BID-W/MEALS 04/25/18 02/27/21 lisinopriL [Zestril] 20 mg PO DAILY 04/25/18 02/27/21 metOLazone [Zaroxolyn] 5 mg PO DAILY 04/25/18 02/27/21 Digoxin [Lanoxin] 125 mcg PO DAILY 06/09/18 02/27/21 Magnesium Oxide 400 mg PO HS 12/29/20 02/27/21 SILVER sulfADIAZINE CREAM 1 applic TOPICAL DAILY 12/29/20 02/27/21 [Silvadene Cream] Albuterol Nebulized [Ventolin 2.5 mg INHALATION RT-Q6H PRN 02/27/21 02/27/21 Nebulized] Warfarin [Coumadin] 3 mg PO DAILY@1800 02/27/21 02/27/21 Previous Rx's Medication Instructions Recorded HYDROcodone/APAP 5-325MG [[place] 1 tab PO Q6HR PRN 3 Days #12 tab 01/02/21 5-325] Allergies Allergy/AdvReac Type Severity Reaction Status Date / Time No Known Allergies Allergy Verified 02/27/21 12:33 Review of Systems ROS Statement: Those systems with pertinent positive or pertinent negative responses have been documented in the HPI. ROS Other: All systems not noted in ROS Statement are negative. Past Medical History Past Medical History: Atrial Fibrillation, Heart Failure, COPD, Hypertension, Osteoarthritis (OA), Pneumonia, Prostate Disorder, Renal Disease, Sleep Apnea/ CPAP/BIPAP, Vascular Disorder Additional Past Medical History / Comment(s): Nonischemic cardiomyopathy, cardiac valve disease, bronchitis, JIMMIE with Cpap and O2 at 2L at hs, past decreased renal function, arthritis bilateral hands/knees, gout bilateral feet, numbness bilateral legs/feet, carpal tunnel syndrome bilaterally, bilateral hand tremors, nonhealing bilateral lower leg wounds/cellulitis, varicosities, lower leg/pedal edema, PVD, BPH. History of Any Multi-Drug Resistant Organisms: MRSA Date of last positivie culture/infection: 08/30/12 MDRO Source:: LEG(not sure which) Past Surgical History: Heart Catheterization Additional Past Surgical History / Comment(s): Split thickness skin graft to L leg, bronchoscopy, cyst and partial jaw removed/has screws, oral surgery age 8- too many teeth. Past Anesthesia/Blood Transfusion Reactions: Previous Problems w/ Anesthesia Additional Past Anesthesia/Blood Transfusion Reaction / Comment(s): STATED DURING BRONCH STOPPED BREATHING, (brochoscopy done at [facility]-record on chart) Past Psychological History: Anxiety Smoking Status: Never smoker Past Alcohol Use History: None Reported Past Drug Use History: None Reported - Past Family History Father Family Medical History: Dementia, Eye Disorder Additional Family Medical History / Comment(s): MACULAR DEGENERATION Mother Family Medical History: Diabetes Mellitus, Eye Disorder, Vascular Disorder Additional Family Medical History / Comment(s): ANEURYSMS, CATARACTS. General Exam - General Exam Comments Initial Comments: GENERAL: Patient is well-developed and well-nourished. Patient is nontoxic and in no acute distress. HEAD: Atraumatic, normocephalic. EYES: Pupils equal round and reactive to light, extraocular movements intact, sclera anicteric, conjunctiva are normal. Eyelids were unremarkable. ENT: TMs normal, nares patent, oropharynx clear without exudates. Moist mucous membranes. NECK: Normal range of motion, supple without lymphadenopathy or JVD. LUNGS: Unlabored respirations. Breath sounds clear to auscultation bilaterally and equal. No wheezes rales or rhonchi. HEART: Irregular rate and rhythm without murmurs, rubs or gallops. ABDOMEN: Soft, nontender, normoactive bowel sounds. No guarding, no rebound. No masses appreciated. MUSCULOSKELETAL: Patient has bilateral lower leg edema, chronic sores in his bilateral lower legs as well. No clubbing or cyanosis. NEUROLOGICAL: Patient is alert and oriented x 3. Motor and sensory are also intact. Cranial nerves II through XII grossly intact. Symmetrical smile. Normal speech, normal gait. PSYCH: Normal mood, normal affect. SKIN: Warm, Dry, normal turgor, no rashes or lesions noted. Limitations: no limitations exam: Present: scrotal swelling Course Vital Signs 02/27/21 12:30 Temperature 97.9 F Pulse Rate 91 Respiratory 20 Rate Blood Pressure 166/82 O2 Sat by Pulse 100 Oximetry EKG Findings - EKG Comments: EKG Findings:: A. fib with premature ventricular complexes, left axis deviation, RBBB, septal infarct age undetermined. Similar to previous on 12/29/2020. Ventricular rate 89, QRS duration 148, QT 388. Medical Decision Making - Medical Decision Making Patient is a 62-year-old male with multiple comorbidities including A. fib on Coumadin, CHF, presenting for increased shortness of breath and increase in bilateral lower leg swelling. He was sent in by his PCP. Patient's vital signs are stable upon arrival. Labs show a normal white count, hemoglobin is stable at 7.8, INR is 1.3 today, his dimer is slightly elevated at 0.84. Kidney function is stable, troponin is normal, BNP is 3400. Chest x-ray shows ca rdiomegaly with pulmonary venous congestion. He should also has chronic wounds on his lower legs, the left anterior vu and right posterior lower leg. He missed his wound care appointment today. The legs appear more swollen than usual over no severe cellulitis is noted at this time although there is a large odor coming from the wounds. I will consult wound care. Patient admits that he has not been taking his Lasix. I will give him an IV dose today. Patient will be admitted for CHF and consulted wound care. Patient accepted by Dr. Bunch's group. Case discussed with Dr. Zacarias. - Lab Data Result diagrams: 02/27/21 14:35 02/27/21 14:35 Lab Results 02/27/21 02/27/21 02/27/21 Range/Units 14:35 14:35 14:35 WBC 4.6 (3.8-10.6) k/uL RBC 3.40 L (4.30-5.90) m/uL Hgb 7.8 L (13.0-17.5) gm/dL Hct 27.0 L (39.0-53.0) % MCV 79.3 L (80.0-100.0) fL MCH 22.8 L (25.0-35.0) pg MCHC 28.8 L (31.0-37.0) g/dL RDW 17.1 H (11.5-15.5) % Plt Count 175 (150-450) k/uL MPV 8.1 Hypochromasia Marked Poikilocytosis Slight Anisocytosis Slight Microcytosis Slight PT 13.2 H (9.0-12.0) sec INR 1.3 H (<1.2) D-Dimer 0.84 H (<0.60) mg/L FEU Sodium 140 (137-145) mmol/L Potassium 4.7 (3.5-5.1) mmol/L Chloride 109 H (98-107) mmol/L Carbon Dioxide 25 (22-30) mmol/L Anion Gap 6 mmol/L BUN 34 H (9-20) mg/dL Creatinine 1.09 (0.66-1.25) mg/dL Est GFR (CKD-EPI)AfAm 80 (>60 ml/min/1.73 sqM) Est GFR (CKD-EPI)NonAf 69 (>60 ml/min/1.73 sqM) Glucose 109 H (74-99) mg/dL Calcium 8.6 (8.4-10.2) mg/dL Magnesium 1.7 (1.6-2.3) mg/dL Total Bilirubin 1.0 (0.2-1.3) mg/dL AST 24 (17-59) U/L ALT 14 (4-49) U/L Alkaline Phosphatase 165 H (38-126) U/L Troponin I (0.000-0.034) ng/mL NT-Pro-B Natriuret Pep pg/mL Total Protein 7.2 (6.3-8.2) g/dL Albumin 3.5 (3.5-5.0) g/dL 02/27/21 02/27/21 Range/Units 14:35 14:35 WBC (3.8-10.6) k/uL RBC (4.30-5.90) m/uL Hgb (13.0-17.5) gm/dL Hct (39.0-53.0) % MCV (80.0-100.0) fL MCH (25.0-35.0) pg MCHC (31.0-37.0) g/dL RDW (11.5-15.5) % Plt Count (150-450) k/uL MPV Hypochromasia Poikilocytosis Anisocytosis Microcytosis PT (9.0-12.0) sec INR (<1.2) D-Dimer (<0.60) mg/L FEU Sodium (137-145) mmol/L Potassium (3.5-5.1) mmol/L Chloride (98-107) mmol/L Carbon Dioxide (22-30) mmol/L Anion Gap mmol/L BUN (9-20) mg/dL Creatinine (0.66-1.25) mg/dL Est GFR (CKD-EPI)AfAm (>60 ml/min/1.73 sqM) Est GFR (CKD-EPI)NonAf (>60 ml/min/1.73 sqM) Glucose (74-99) mg/dL Calcium (8.4-10.2) mg/dL Magnesium (1.6-2.3) mg/dL Total Bilirubin (0.2-1.3) mg/dL AST (17-59) U/L ALT (4-49) U/L Alkaline Phosphatase (38-126) U/L Troponin I 0.017 (0.000-0.034) ng/mL NT-Pro-B Natriuret Pep 3470 pg/mL Total Protein (6.3-8.2) g/dL Albumin (3.5-5.0) g/dL Disposition Clinical Impression: CHF (congestive heart failure), Bilateral lower extremity edema Disposition: ADMITTED IP TO THIS [facility] Condition: Stable Decision Date: 02/27/21 Decision Time: 17:09
--- NOTE | 2021-02-27 16:15 | XR ---
EXAMINATION TYPE: XR chest 2V DATE OF EXAM: 02/27/2021 COMPARISON: 12/29/2020 HISTORY: Chest pain TECHNIQUE: Frontal and lateral views of the chest are obtained. FINDINGS: There is no focal air space opacity. No evidence for pneumothorax. No pleural effusion. There is cardiomegaly with pulmonary venous congestion. No overt failure seen at this time. The osseous structures are grossly intact. IMPRESSION: 1. There is cardiomegaly with pulmonary venous congestion. No overt failure seen at this time.
[2021-02-27] MEDS: FUROSEMIDE 10 MG/ML 4 ML VIAL IV SCH (17:49)
[2021-02-27 19:26] LABS: Appearance,Urine Clear (Clear); Bilirubin,Urine Negative (Negative); Blood,Urine Negative (Negative); Color,Urine Colorless; Glucose,Urine (UA) Negative (Negative); Ketones,Urine Negative (Negative); Leukocyte Esterase,Urine Negative (Negative); Nitrite,Urine Negative (Negative); PH, Urine 6.5 (5.0-8.0); Protein,Urine Negative (Negative); Specific Gravity,Urine 1.004 (1.001-1.035); Urobilinogen,Urine <2.0 mg/dL (<2.0)
[2021-02-27] MEDS ORDERED: ALBUTEROL NEBULIZED 2.5 MG/3 ML INHALATION PRN (20:47)
[2021-02-27] MEDS ORDERED: WARFARIN 2 MG TAB PO ONE ×2 (21:30→23:15)
[2021-02-27] MEDS: allopurinoL 300 MG TAB PO SCH (23:09)
[2021-02-28] MEDS: HYDROcodone/APAP 5-325MG 1 EACH TAB PO PRN (02:34)
[2021-02-28] MEDS: FUROSEMIDE 10 MG/ML 4 ML VIAL IV SCH ×3 (05:13→18:16)
[2021-02-28] MEDS: carvediloL 12.5 MG TAB PO SCH ×2 (08:24→17:05)
[2021-02-28] MEDS: TAMSULOSIN 0.4 MG CAP.ER.24H PO SCH (08:24)
[2021-02-28] MEDS: DIGOXIN 125 MCG TAB PO SCH (08:24)
[2021-02-28] MEDS: ISOSORBIDE MONONITRATE ER 30 MG TAB.ER.24H PO SCH (08:24)
[2021-02-28] MEDS: lisinopriL 20 MG TAB PO SCH (08:24)
[2021-02-28 08:40] LABS: INR 1.4 (<1.2); Prothrombin Time 14.4 sec (9.0-12.0)
[2021-02-28 12:02] LABS: African American GFR (CKD) 71.6 (60.0-200.0); Anion Gap 5.6 mmol/L (4.00-12.00); Calcium 8.3 mg/dL (8.7-10.3); Carbon Dioxide 31.4 mmol/L (21.6-31.8); Non-African American GFR(CKD) 61.8 (60.0-200.0); Potassium 3.7 mmol/L (3.5-5.5)
[2021-02-28 13:12] LABS: HCT 25.3 % (39.6-50.0); HGB 6.5 g/dL (13.0-17.0); MCH 20.4 pg (27.0-32.0); MCHC 25.7 g/dL (32.0-37.0); MCV 79.3 fL (80.0-97.0); Platelet Count 171 X 10*3/uL (140-440); RBC 3.19 X 10*6/uL (4.40-5.60); RDW 18.1 % (11.5-14.5); WBC 4.25 X 10*3/uL (4.50-10.00)
[2021-02-28] MEDS ORDERED: FUROSEMIDE 10 MG/ML 4 ML VIAL IV ONE (14:41)
[2021-02-28] MEDS ORDERED: IPRATROPIUM-ALBUTEROL 3 ML NEB INHALATION PRN (17:29)
[2021-02-28] MEDS ORDERED: WARFARIN 3 MG TAB PO SCH (18:00)
[2021-02-28] MEDS ORDERED: WARFARIN 2 MG TAB PO ONE (18:00)
[2021-02-28] MEDS: NAPROXEN 250 MG TAB PO SCH (18:15)
[2021-02-28] MEDS: POTASSIUM CHLORIDE ER 20 MEQ TAB.ER PO SCH (18:15)
[2021-02-28] MEDS: IPRATROPIUM-ALBUTEROL 3 ML NEB INHALATION SCH ×2 (20:39→20:42)
--- NOTE | 2021-02-28 21:25 | HP ---
HISTORY AND PHYSICAL DATE OF SERVICE: 02/28/2021 CHIEF COMPLAINT: Shortness of breath and scrotal edema. I am covering for Dr. Modi. HISTORY OF PRESENT ILLNESS: This 70-year-old gentleman with a past medical history of atrial fibrillation, CHF, COPD, hypertension, DJD, history of pneumonia, history of sleep apnea, history of nonischemic cardiomyopathy being followed by Dr. Modi in the outpatient setting. The patient is apparently noncompliant with medications. The patient was not taking medication on a regular basis and complaining of increased shortness of breath, bilateral leg swelling, some gained weight, and the patient is concerned about CHF. Patient came to [facility] and was admitted for further evaluation and treatment. The patient was apparently supposed to take 40 mg of Lasix daily but according to him he takes only 20 mg because it bothers him. There is no history of fever, rigors. No headache, loss of consciousness, seizures. After admission, the patient was found to have hemoglobin 7.8 and subsequently 6.5. No acute bleeding was noted. Otherwise the patient also had a chest x-ray at the time of admission which I reviewed personally, showed evidence of CHF and cardiomegaly and the patient admitted for further evaluation and treatment. There is no history of fever, rigors or chills. No history of headache, loss of consciousness or seizures at this time. PAST MEDICAL HISTORY: History of atrial fibrillation, CHF, COPD, hypertension, DJD, history of pneumonia, history of nonischemic cardiomyopathy. MEDICATIONS: Prior to admission: Zaroxolyn, Zestril, Zyloprim, Coumadin, Flomax, Silvadene cream, potassium chloride, Naprosyn, magnesium oxide, Imdur, [place], Lanoxin, Coreg, Ventolin. Doses reviewed. ALLERGIES: None. FAMILY HISTORY: History of dementia, macular degeneration. SOCIAL HISTORY: Previous history of smoking. No history of alcohol intake. REVIEW OF SYSTEMS: ENT: Diminished vision. Diminished hearing. CARDIOVASCULAR: As mentioned earlier. RESPIRATION: As mentioned earlier. GI: No nausea or vomiting. as mentioned earlier. NERVOUS SYSTEM: No numbness, weakness. ALLERGY/IMMUNOLOGY: No asthma or hayfever. MUSCULOSKELETAL: As mentioned earlier. HEMATOLOGY/ONCOLOGY: No history of anemia. ENDOCRINE: As mentioned earlier. CONSTITUTIONAL: As mentioned earlier. DERMATOLOGY: Negative. RHEUMATOLOGY: Negative. CONSTITUTIONAL: As mentioned earlier. PHYSICAL EXAMINATION: Alert and oriented x3. Pulse is 85. Blood pressure 164/92, respirations 19, temperature 98.5, pulse ox 91 percent on room air. HEENT: Conjunctivae normal. Oral mucosa moist. NECK is no jugular venous distention. No carotid bruit. No lymph node enlargement. CARDIOVASCULAR system: S1, S2 muffled. RESPIRATORY: Breath sounds diminished in the bases. Scattered rhonchi. No crackles. ABDOMEN: Soft, obese, nontender. No mass palpable. LEGS: No edema. No swelling. Bilateral leg for leg wounds which are wrapped at this time. NERVOUS SYSTEM: Higher functions as mentioned earlier. Moves all 4 limbs. No focal motor or sensory deficits. LYMPHATICS: No lymph nodes palpable in the neck, axillae or groin. SKIN: No ulcers, rashes or bleeding. JOINTS: No active deforming arthropathy. LABS: WBC 4.2, hemoglobin 6.5. Otherwise, INR is 1.4. Sodium 142, potassium 3.7. ASSESSMENT: 1. Congestive heart failure acute exacerbation with acute on chronic systolic dysfunction, ejection fraction 45-50 percent. 2. Anemia. Rule out acute blood loss anemia. 3. History of noncompliance. 4. Scrotal edema. 5. History of atrial fibrillation. 6. History of congestive heart failure. 7. Chronic obstructive pulmonary disease. 8. Hypertension. 9. History of degenerative joint disease. 10.History of pneumonia. 11.History of sleep apnea. 12.History of nonischemic cardiomyopathy. 13.History of cardiac valve disease. 14.History of obstructive sleep apnea. 15.History of carpal tunnel syndrome bilaterally. 16.Peripheral vascular disease. 17.History of MRSA. 18.History of cardiac arrest. 19.History of anxiety. 20.Obesity with body mass index 41. 21.Chronic hypoxic respiratory failure secondary to chronic obstructive pulmonary disease. 22.Chronic bilateral leg wounds. RECOMMENDATIONS: In this 70-year-old gentleman who presented with multiple complex medical issues, we will monitor the patient closely continue the current medications, symptomatic treatment. We will initiate diuretics 1 unit transfusion. Surgical evaluation for anemia and rule out GI bleed. We will continue to monitor. Otherwise resume the rest of medications. Hold antiplatelet agents at this time. The prognosis guarded because of multiple complex medical issues. Cardiology has been consulted. Also consult Wound Care. Prognosis guarded. Further recommendations to follow. A copy of dictation being forwarded to Dr. Modi who is the primary physician. We will also consult Social Work and Case Management to evaluate the home situation as well. MMCHRISTIANO / HAYDEEN: [id number] /
[2021-02-28] MEDS: allopurinoL 300 MG TAB PO SCH (21:45)
[2021-02-28] MEDS: MAGNESIUM OXIDE 400 MG TAB PO SCH (21:45)
[2021-03-01] MEDS: FUROSEMIDE 10 MG/ML 4 ML VIAL IV SCH ×3 (02:51→17:22)
[2021-03-01 07:52] LABS: INR 1.5 (<1.2); Prothrombin Time 14.9 sec (9.0-12.0)
[2021-03-01] MEDS: lisinopriL 20 MG TAB PO SCH (08:22)
[2021-03-01] MEDS: NAPROXEN 250 MG TAB PO SCH ×2 (08:22→17:23)
[2021-03-01] MEDS: carvediloL 12.5 MG TAB PO SCH ×2 (08:22→17:22)
[2021-03-01] MEDS: POTASSIUM CHLORIDE ER 20 MEQ TAB.ER PO SCH ×2 (08:22→17:22)
[2021-03-01] MEDS: DIGOXIN 125 MCG TAB PO SCH (08:22)
[2021-03-01] MEDS: TAMSULOSIN 0.4 MG CAP.ER.24H PO SCH (08:22)
[2021-03-01] MEDS: ISOSORBIDE MONONITRATE ER 30 MG TAB.ER.24H PO SCH (08:22)
[2021-03-01] MEDS: metOLazone 5 MG TAB PO SCH (08:23)
[2021-03-01] MEDS: IPRATROPIUM-ALBUTEROL 3 ML NEB INHALATION SCH ×3 (08:29→22:24)
[2021-03-01 11:21] LABS: Basophils # (A) 0.02 X 10*3/uL (0.00-0.10); Basophils % (A) 0.4 %; Eosinophils # (A) 0.28 X 10*3/uL (0.04-0.35); Eosinophils % (A) 5.3 %; HCT 29.8 % (39.6-50.0); HGB 8.1 g/dL (13.0-17.0); Lymphocytes # (A) 0.88 X 10*3/uL (0.90-5.00); Lymphocytes % (A) 16.8 %; MCH 21.1 pg (27.0-32.0); MCHC 27.2 g/dL (32.0-37.0); MCV 77.8 fL (80.0-97.0); Monocytes # (A) 0.65 X 10*3/uL (0.20-1.00); Monocytes % (A) 12.4 %; Neutrophils # (A) 3.41 X 10*3/uL (1.80-7.70); Neutrophils % (A) 64.9 %; Platelet Count 205 X 10*3/uL (140-440); RBC 3.83 X 10*6/uL (4.40-5.60); RDW 17.7 % (11.5-14.5); WBC 5.25 X 10*3/uL (4.50-10.00)
--- NOTE | 2021-03-01 11:31 | P.CRDCN ---
History of Present Illness Consult date: 03/01/21 History of present illness: This is a 70-year-old gentleman with history of chronic atrial fibrillation, COPD, hypertension and chronic CHF who was brought in with complaints of shortness of breath. She also has a history of nonischemic cardiomyopathy. Patient has bilateral leg swellin and also beat pain. Apparently patient has not been taking his medication on regular basis. Patient was supposed to take 40 mg of Lasix and patient has been taking less a dose on an inconsistent basis. Patient also found to be anemic with further drop of hemoglobin below 7. Rico irene was given blood transfusion last night and he seemed to be feeling better. He denies any dizziness, shortness of breath or palpitations. Chest x-ray showed evidence of cardiomegaly and maybe minimal congestion. At the time of my examination patient is lying in bed flat and seemed to be not in any acute distress. Patient was supposed to be on Coumadin but his INRs are subtherapeutic. He was being investigated for possible anemia and GI blood loss. Patient was on Coreg, digoxin and Lasix at home. Her along with and his Toprol. Patient is currently on IV Lasix every 8 hours. His swelling is visible better. We will continue current medical therapy. Proceed with investigation for possible GI bleeding. Further recommendations depend upon the clinical course Review of Systems As per the chart Past Medical History Past Medical History: Atrial Fibrillation, Heart Failure, COPD, Hypertension, Osteoarthritis (OA), Pneumonia, Prostate Disorder, Renal Disease, Sleep Apnea/CPAP/BIPAP, Vascular Disorder Additional Past Medical History / Comment(s): Nonischemic cardiomyopathy, cardiac valve disease, bronchitis, JIMMIE with Cpap and O2 at 2L at hs, past decreased renal function, arthritis bilateral hands/knees, gout bilateral feet, numbness bilateral legs/feet, carpal tunnel syndrome bilaterally, bilateral hand tremors, nonhealing bilateral lower leg wounds/cellulitis, varicosities, lower leg/pedal edema, PVD, BPH. History of Any Multi-Drug Resistant Organisms: MRSA Date of last positivie culture/infection: 08/30/12 MDRO Source:: LEG(not sure which) Past Surgical History: Heart Catheterization Additional Past Surgical History / Comment(s): Split thickness skin graft to L leg, bronchoscopy, cyst and partial jaw removed/has screws, oral surgery age 8- too many teeth. Past Anesthesia/Blood Transfusion Reactions: Previous Problems w/ Anesthesia Additional Past Anesthesia/Blood Transfusion Reaction / Comment(s): STATED DURING BRONCH STOPPED BREATHING, (brochoscopy done at [facility]-record on chart) Past Psychological History: Anxiety Additional Psychological History / Comment(s): Pt resides with his spouse, daughter and grandchild. He uses a walker. He has a Cpap/oxygen at home. Smoking Status: Never smoker Past Alcohol Use History: None Reported Additional Past Alcohol Use History / Comment(s): Pt started smoking cigars on occasion in 1981 and quit in 2019 Past Drug Use History: None Reported - Past Family History Father Family Medical History: Dementia, Eye Disorder Additional Family Medical History / Comment(s): MACULAR DEGENERATION Mother Family Medical History: Diabetes Mellitus, Eye Disorder, Vascular Disorder Additional Family Medical History / Comment(s): ANEURYSMS, CATARACTS. Medications and Allergies Home Medications Medication Instructions Recorded Confirmed Type Isosorbide Mononitrate ER [Imdur] 30 mg PO DAILY 04/11/14 02/27/21 History Tamsulosin HCl [Flomax] 0.8 mg PO DAILY 04/11/14 02/27/21 History allopurinoL [Zyloprim] 300 mg PO HS 03/03/16 02/27/21 History Carvedilol [Coreg] 25 mg PO BID-W/MEALS 04/25/18 02/27/21 History Naproxen 500 mg PO BID-W/MEALS 04/25/18 02/27/21 History Potassium Chloride 20 meq PO BID-W/MEALS 04/25/18 02/27/21 History lisinopriL [Zestril] 20 mg PO DAILY 04/25/18 02/27/21 History metOLazone [Zaroxolyn] 5 mg PO DAILY 04/25/18 02/27/21 History Digoxin [Lanoxin] 125 mcg PO DAILY 06/09/18 02/27/21 History Magnesium Oxide 400 mg PO HS 12/29/20 02/27/21 History SILVER sulfADIAZINE CREAM 1 applic TOPICAL DAILY 12/29/20 02/27/21 History [Silvadene Cream] HYDROcodone/APAP 5-325MG [[place] 1 tab PO Q6HR PRN 3 Days #12 tab 01/02/21 02/27/21 Rx 5-325] Albuterol Nebulized [Ventolin 2.5 mg INHALATION RT-Q6H PRN 02/27/21 02/27/21 History Nebulized] Warfarin [Coumadin] 3 mg PO DAILY@1800 02/27/21 02/27/21 History Allergies Allergy/AdvReac Type Severity Reaction Status Date / Time No Known Allergies Allergy Verified 02/27/21 12:33 Physical Exam Vitals: Vital Signs Temp Pulse Pulse Resp BP BP Pulse Ox 03/01/21 08:38 82 03/01/21 08:29 80 03/01/21 08:00 98.5 F 88 16 159/77 94 L 03/01/21 02:00 98.2 F 85 16 154/86 94 L 02/28/21 20:50 78 02/28/21 20:38 78 02/28/21 20:30 97.6 F 81 20 150/78 96 02/28/21 20:25 97.9 F 71 164/88 95 02/28/21 17:41 98.4 F 89 19 170/67 94 L 02/28/21 17:11 98.5 F 85 19 164/92 91 L 02/28/21 17:01 98.4 F 89 18 162/87 93 L 02/28/21 14:00 98.6 F 83 18 144/71 97 Intake and Output 02/28/21 03/01/21 03/01/21 22:59 06:59 14:59 Intake Total 910 Balance 910 Intake: Oral 600 Blood Product 310 Rc Irr As1 Unit 310 [id number] Other: Voiding Method Diaper Diaper Incontinent Incontinent # Voids 4 # Bowel Movements 0 Weight 116.3 kg GENERAL EXAM: Patient is alert and oriented and doesn't appear to be in any acute distress HEENT: Normocephalic. Normal reaction of pupils, equal size, normal range of extraocular motion. No erythema or exudates in the throat. NECK: No masses, no nuchal rigidity. CHEST: No chest wall deformity. LUNGS: Equal air entry with no crackles or wheeze. HEART: S1 and S2 normal. Irregular heart rhythm ABDOMEN: No hepatosplenomegaly, normal bowel sounds, no guarding or rigidity. SKIN: No rashes CENTRAL NERVOUS SYSTEM: No focal deficits. EXTREMITIES: Significant swelling and ecchymosis and excoriations Results 03/01/21 07:15 02/28/21 07:42 Coagulation 03/01/21 Range/Units 07:15 PT 14.9 H (9.0-12.0) sec CBC 02/28/21 03/01/21 Range/Units 07:42 07:15 WBC 4.25 L 5.25 (4.50-10.00) X 10*3/uL RBC 3.19 L 3.83 L (4.40-5.60) X 10*6/uL Hgb 6.5 L* 8.1 L (13.0-17.0) g/dL Hct 25.3 L 29.8 L (39.6-50.0) % Plt Count 171 205 (140-440) X 10*3/uL Comprehensive Metabolic Panel 02/28/21 Range/Units 07:42 Sodium 142 (135-145) mmol/L Potassium 3.7 (3.5-5.5) mmol/L Chloride 105 (96-109) mmol/L Carbon Dioxide 31.4 (21.6-31.8) mmol/L BUN 30.0 H (9.0-27.0) mg/dL Creatinine 1.2 (0.6-1.5) mg/dL Glucose 151 H (70-110) mg/dL Calcium 8.3 L (8.7-10.3) mg/dL Current Medications Generic Name Dose Route Start Last Admin Trade Name Freq PRN Reason Stop Dose Admin Hydrocodone Bitart/Acetaminophen 1 each 02/27/21 20:47 02/28/21 02:34 Hydrocodone/Apap 5-325mg 1 Each Tab PO 1 each Q6HR PRN Administration Pain Albuterol/Ipratropium 3 ml 02/28/21 20:00 03/01/21 08:29 Ipratropium-Albuterol 3 Ml Neb INHALATION 3 ml RT-TID JULIEN Administration Albuterol/Ipratropium 3 ml 02/28/21 17:29 Ipratropium-Albuterol 3 Ml Neb INHALATION RT-TID PRN Shortness Of Breath Or Wheezing Allopurinol 300 mg 02/27/21 21:00 02/28/21 21:45 Allopurinol 300 Mg Tab PO 300 mg HS JULIEN Administration Carvedilol 25 mg 02/28/21 07:30 03/01/21 08:22 Carvedilol 12.5 Mg Tab PO 25 mg BID-W/MEALS JULIEN Administration Digoxin 125 mcg 02/28/21 09:00 03/01/21 08:22 Digoxin 125 Mcg Tab PO 125 mcg DAILY JULIEN Administration Furosemide 40 mg 02/28/21 18:00 03/01/21 09:59 Furosemide 10 Mg/Ml 4 Ml Vial IV 40 mg Q8H JULIEN Administration Isosorbide Mononitrate 30 mg 02/28/21 09:00 03/01/21 08:22 Isosorbide Mononitrate Er 30 Mg Tab.Er.24h PO 30 mg DAILY JULIEN Administration Lisinopril 20 mg 02/28/21 09:00 03/01/21 08:22 Lisinopril 20 Mg Tab PO 20 mg DAILY JULIEN Administration Magnesium Oxide 400 mg 02/28/21 21:00 02/28/21 21:45 Magnesium Oxide 400 Mg Tab PO 400 mg HS JULIEN Administration Metolazone 5 mg 03/01/21 09:00 03/01/21 08:23 Metolazone 5 Mg Tab PO 5 mg DAILY JULIEN Administration Miscellaneous Information 1 each 02/28/21 18:00 Warfarin Per Pharmacy MISCELLANE DIRECTED PRN Per Protocol Protocol Naproxen 500 mg 02/28/21 17:30 03/01/21 08:22 Naproxen 250 Mg Tab PO 500 mg BID-W/MEALS JULIEN Administration Potassium Chloride 20 meq 02/28/21 17:30 03/01/21 08:22 Potassium Chloride Er 20 Meq Tab.Er PO 20 meq BID-W/MEALS JULIEN Administration Silver Sulfadiazine 1 applic 03/01/21 09:00 03/01/21 01:25 Silver Sulfadiazine 1% Cream 25 Gm Tube TOPICAL 1 applic DAILY JULIEN Administration Protocol Tamsulosin HCl 0.8 mg 02/28/21 09:00 03/01/21 08:22 Tamsulosin 0.4 Mg Cap.Er.24h PO 0.8 mg DAILY JULIEN Administration Intake and Output 02/28/21 03/01/21 03/01/21 22:59 06:59 14:59 Intake Total 910 Balance 910 Intake: Oral 600 Blood Product 310 Rc Irr As1 Unit 310 [id number] Other: Voiding Method Diaper Diaper Incontinent Incontinent # Voids 4 # Bowel Movements 0 Weight 116.3 kg 03/01/21 07:15 02/28/21 07:42 EKG Interpretations (text) Atrial fibrillation with controlled ventricular response Assessment and Plan (1) Acute on chronic systolic CHF (congestive heart failure) Current Visit: Yes Status: Acute Code(s): I50.23 - ACUTE ON CHRONIC SYSTOLIC (CONGESTIVE) HEART FAILURE SNOMED Code(s): 157031296 (2) Bilateral lower extremity edema Current Visit: Yes Status: Acute Code(s): R60.0 - LOCALIZED EDEMA SNOMED Code(s): 290939437 (3) Atrial fibrillation Current Visit: No Status: Acute Code(s): I48.91 - UNSPECIFIED ATRIAL FIBRILLATION SNOMED Code(s): 03277880 (4) Prolonged Q-T interval on ECG Current Visit: No Status: Acute Code(s): R94.31 - ABNORMAL ELECTROCARDIOGRAM [ECG] [EKG] SNOMED Code(s): 085482424 (5) Anemia Current Visit: Yes Status: Acute Code(s): D64.9 - ANEMIA, UNSPECIFIED SNOMED Code(s): 988107320 Plan: Patient is responding. Patient is on IV Lasix. Patient has chronic atrial fibrillation needs to go on and decortication therapy. Being investigated for possible anemia and GI bleeding. Patient received blood transfusion and hemoglobin is about 8 g. Continue current medical therapy. We will follow
[2021-03-01 12:30] LABS: Anion Gap 10.9 mmol/L (4.00-12.00); BUN/Creat Ratio 22.31 Ratio (12.00-20.00); Calcium 8.4 mg/dL (8.7-10.3); Carbon Dioxide 33.1 mmol/L (21.6-31.8); Non-African American GFR(CKD) 56.1 (60.0-200.0); Potassium 3.4 mmol/L (3.5-5.5)
--- NOTE | 2021-03-01 13:48 | P.GSCN ---
History of Present Illness Consult date: 03/01/21 History of present illness: CHIEF COMPLAINT: Anemia HISTORY OF PRESENT ILLNESS: The patient is a 62-year-old male with comorbidities including atrial fibrillation, congestive heart failure, chronic obstructive pulmonary disease who presented to the emergency room yesterday with bilateral lower extremity swelling and generalized weakness. No reports of liu blood in stools. No reports of abdominal pain. During workup, hemoglobin came back low 6.5. General surgery is consulted for anemia. Since admission, he received 1 unit of blood now up to 7.6 Hgb. He has never had a colonoscopy. He also reports fullness along the rectum which has become worse over the last 2 months. PAST MEDICAL HISTORY: See list and reviewed PAST SURGICAL HISTORY: See list and reviewed MEDICATIONS: See list and reviewed ALLERGIES: See list and reviewed SOCIAL HISTORY: See list and reviewed FAMILY HISTORY: See list and reviewed REVIEW OF ORGAN SYSTEMS: CONSTITUTIONAL: No fevers or chills. EYES: Denies any trouble with vision. Wears glasses. HEENT: No difficulties with hearing. No nosebleeds. No difficulty swallowing. RESPIRATORY: Has chronic obstructive pulmonary disease CARDIOVASCULAR: Has congestive heart failure. Has atrial fibrillation GASTROINTESTINAL: Denies fatty food intolerance. Denies change in bowel habits and gas bloat. GENITOURINARY: Denies any blood in urine. NEUROLOGICAL: Denies any numbness or tingling along the distal extremities. No seizure disorders or headaches. MUSCULOSKELETAL: Has back pain, stiffness or joint arthritis. SKIN: No current skin cancer. No rash. PSYCHIATRIC: Denies current depression or suicidal thoughts. ENDOCRINE: Denies current thyroid disorders. Denies any blood sugar glucose intolerance. HEME/LYMPHATIC: On chronic anticoagulation for atrial fibrillation ALLERGY/IMMUNOLOGY: No immunoglobulin therapy. No immune deficiencies. BREAST: Denies current breast lumps, pain or nipple discharge. PHYSICAL EXAM: VITALS: Reviewed CONSTITUTIONAL: Well developed and in no acute distress. EYES: Conjuctivae without sclera icterus. Extraocular movements grossly intact. HEAD, EARS, NOSE, THROAT: Moist buccal mucosa. Head is atraumatic, normocephalic. Hears conversational speech. No nasal drainage. NECK: Supple. No JV distention. No thyroidomegaly. RESPIRATORY: Non-labored respirations and equal bilateral excursions. No gross wheezes. CARDIOVASCULAR: Irregular rate. Irregular rhythm. Palpable 2+ radial pulses. ABDOMEN: Soft. No peritonitis. LYMPH: No neck lymphadenopathy. MUSCULOSKELETAL: Nail and fingers with good capillary refill. SKIN: Warm and well perfused with good skin turgor. NEUROLOGIC: Cranial nerves II through XII grossly intact. No focal or lateralizing signs. PSYCH: Appropriate affect. Alert and oriented to person, place and time. Displays appropriate insight. CLINCAL LABS: Reviewed. Hemoglobin dropped from 7.8-6.5. Patient given 1 unit of blood. INR 1.3 and elevated. RADIOLOGY: Report reviewed the chest x-ray with pulmonary venous congestion and cardiomegaly. EKG: Reviewed with atrial fibrillation, right bundle branch block, septal infarct, T-wave abnormalities ASSESSMENT: 1. Acute blood loss anemia with chronic anticoagulant use 2. Atrial fibrillation 3. Congestive heart failure with acute exacerbation 4. Chronic obstructive pulmonary disease PLAN: 1. He has never had a colonoscopy and reports fullness in the rectum. I am concerned for a GI malignancy. Recommend upper and lower endoscopy. He is elevated risk with atrial fibrillation. 2. Low volume GI prep described to minimize volume overload in congestive heart failure. 3. Clear liquid diet. Thank you for this kind consultation. Past Medical History Past Medical History: Atrial Fibrillation, Heart Failure, COPD, Hypertension, Osteoarthritis (OA), Pneumonia, Prostate Disorder, Renal Disease, Sleep Apnea/CPAP/BIPAP, Vascular Disorder Additional Past Medical History / Comment(s): Nonischemic cardiomyopathy, cardiac valve disease, bronchitis, JIMMIE with Cpap and O2 at 2L at hs, past decreased renal function, arthritis bilateral hands/knees, gout bilateral feet, numbness bilateral legs/feet, carpal tunnel syndrome bilaterally, bilateral hand tremors, nonhealing bilateral lower leg wounds/cellulitis, varicosities, lower leg/pedal edema, PVD, BPH. History of Any Multi-Drug Resistant Organisms: MRSA Year Discovered:: 08/30/12 MDRO Source:: LEG(not sure which) Past Surgical History: Heart Catheterization Additional Past Surgical History / Comment(s): Split thickness skin graft to L leg, bronchoscopy, cyst and partial jaw removed/has screws, oral surgery age 8- too many teeth. Past Anesthesia/Blood Transfusion Reactions: Previous Problems w/ Anesthesia Additional Past Anesthesia/Blood Transfusion Reaction / Comm: STATED DURING BRONCH STOPPED BREATHING, (brochoscopy done at [facility]-record on chart) Past Psychological History: Anxiety Additional Psychological History / Comment(s): Pt resides with his spouse, daughter and grandchild. He uses a walker. He has a Cpap/oxygen at home. Smoking Status: Never smoker Past Alcohol Use History: None Reported Additional Past Alcohol Use History / Comment(s): Pt started smoking cigars on occasion in 1981 and quit in 2019 Past Drug Use History: None Reported - Past Family History Father Family Medical History: Dementia, Eye Disorder Additional Family Medical History / Comment(s): MACULAR DEGENERATION Mother Family Medical History: Diabetes Mellitus, Eye Disorder, Vascular Disorder Additional Family Medical History / Comment(s): ANEURYSMS, CATARACTS. Medications and Allergies Home Medications Medication Instructions Recorded Confirmed Type RX: Isosorbide Mononitrate ER 30 mg PO DAILY 04/11/14 02/27/21 History [Imdur] RX: Tamsulosin HCl [Flomax] 0.8 mg PO DAILY 04/11/14 02/27/21 History RX: allopurinoL [Zyloprim] 300 mg PO HS 03/03/16 02/27/21 History RX: Carvedilol [Coreg] 25 mg PO BID-W/MEALS 04/25/18 02/27/21 History RX: Naproxen 500 mg PO BID-W/MEALS 04/25/18 02/27/21 History RX: Potassium Chloride 20 meq PO BID-W/MEALS 04/25/18 02/27/21 History RX: lisinopriL [Zestril] 20 mg PO DAILY 04/25/18 02/27/21 History RX: metOLazone [Zaroxolyn] 5 mg PO DAILY 04/25/18 02/27/21 History RX: Digoxin [Lanoxin] 125 mcg PO DAILY 06/09/18 02/27/21 History RX: Magnesium Oxide 400 mg PO HS 12/29/20 02/27/21 History RX: SILVER sulfADIAZINE CREAM 1 applic TOPICAL DAILY 12/29/20 02/27/21 History [Silvadene Cream] HYDROcodone/APAP 5-325MG [[place] 1 tab PO Q6HR PRN 3 Days #12 tab 01/02/21 02/27/21 Rx 5-325] Albuterol Nebulized [Ventolin 2.5 mg INHALATION RT-Q6H PRN 02/27/21 02/27/21 History Nebulized] RX: Warfarin [Coumadin] 3 mg PO DAILY@1800 02/27/21 02/27/21 History Allergies Allergy/AdvReac Type Severity Reaction Status Date / Time No Known Allergies Allergy Verified 02/27/21 12:33 Surgical - Exam Vital Signs Temp Pulse Resp BP Pulse Ox 97.9 F 91 20 166/82 100 02/27/21 12:30 02/27/21 12:30 02/27/21 12:30 02/27/21 12:30 02/27/21 12:30 Results - Labs 03/01/21 07:15 03/01/21 07:15 Abnormal Lab Results - Last 24 Hours (Table) 02/28/21 02/28/21 02/28/21 Range/Units 07:42 07:42 14:49 WBC 4.25 L (4.50-10.00) X 10*3/uL RBC 3.19 L (4.40-5.60) X 10*6/uL Hgb 6.5 L* (13.0-17.0) g/dL Hct 25.3 L (39.6-50.0) % MCV 79.3 L (80.0-97.0) fL MCH 20.4 L (27.0-32.0) pg MCHC 25.7 L (32.0-37.0) g/dL RDW 18.1 H (11.5-14.5) % Lymphocytes # (0.90-5.00) X 10*3/uL PT (9.0-12.0) sec INR (<1.2) BUN 30.0 H (9.0-27.0) mg/dL BUN/Creatinine Ratio 25.00 H (12.00-20.00) Ratio Glucose 151 H (70-110) mg/dL Calcium 8.3 L (8.7-10.3) mg/dL Crossmatch See Detail 03/01/21 03/01/21 Range/Units 07:15 07:15 WBC (4.50-10.00) X 10*3/uL RBC 3.83 L (4.40-5.60) X 10*6/uL Hgb 8.1 L (13.0-17.0) g/dL Hct 29.8 L (39.6-50.0) % MCV 77.8 L (80.0-97.0) fL MCH 21.1 L (27.0-32.0) pg MCHC 27.2 L (32.0-37.0) g/dL RDW 17.7 H (11.5-14.5) % Lymphocytes # 0.88 L (0.90-5.00) X 10*3/uL PT 14.9 H (9.0-12.0) sec INR 1.5 H (<1.2) BUN (9.0-27.0) mg/dL BUN/Creatinine Ratio (12.00-20.00) Ratio Glucose (70-110) mg/dL Calcium (8.7-10.3) mg/dL Crossmatch Diabetes panel 02/28/21 Range/Units 07:42 Sodium 142 (135-145) mmol/L Potassium 3.7 (3.5-5.5) mmol/L Chloride 105 (96-109) mmol/L Carbon Dioxide 31.4 (21.6-31.8) mmol/L BUN 30.0 H (9.0-27.0) mg/dL Creatinine 1.2 (0.6-1.5) mg/dL Glucose 151 H (70-110) mg/dL Calcium 8.3 L (8.7-10.3) mg/dL Calcium panel 02/28/21 Range/Units 07:42 Calcium 8.3 L (8.7-10.3) mg/dL Pituitary panel 02/28/21 Range/Units 07:42 Sodium 142 (135-145) mmol/L Potassium 3.7 (3.5-5.5) mmol/L Chloride 105 (96-109) mmol/L Carbon Dioxide 31.4 (21.6-31.8) mmol/L BUN 30.0 H (9.0-27.0) mg/dL Creatinine 1.2 (0.6-1.5) mg/dL Glucose 151 H (70-110) mg/dL Calcium 8.3 L (8.7-10.3) mg/dL Adrenal panel 02/28/21 Range/Units 07:42 Sodium 142 (135-145) mmol/L Potassium 3.7 (3.5-5.5) mmol/L Chloride 105 (96-109) mmol/L Carbon Dioxide 31.4 (21.6-31.8) mmol/L BUN 30.0 H (9.0-27.0) mg/dL Creatinine 1.2 (0.6-1.5) mg/dL Glucose 151 H (70-110) mg/dL Calcium 8.3 L (8.7-10.3) mg/dL Assessment and Plan (1) Acute on chronic systolic CHF (congestive heart failure) Current Visit: Yes Status: Acute Code(s): I50.23 - ACUTE ON CHRONIC SYSTOLIC (CONGESTIVE) HEART FAILURE SNOMED Code(s): 925656241 (2) Anemia Current Visit: Yes Status: Acute Code(s): D64.9 - ANEMIA, UNSPECIFIED SNOMED Code(s): 214103594 (3) Bilateral lower extremity edema Current Visit: Yes Status: Acute Code(s): R60.0 - LOCALIZED EDEMA SNOMED Code(s): 324642592 (4) CHF (congestive heart failure) Current Visit: Yes Status: Acute Code(s): I50.9 - HEART FAILURE, UNSPECIFIED SNOMED Code(s): 52306810 (5) Acute exacerbation of chronic obstructive airways disease Current Visit: No Status: Acute Code(s): J44.1 - CHRONIC OBSTRUCTIVE PULMONARY DISEASE W (ACUTE) EXACERBATION SNOMED Code(s): 876941570 (6) Atrial fibrillation Current Visit: No Status: Acute Code(s): I48.91 - UNSPECIFIED ATRIAL FIBRILLATION SNOMED Code(s): 76103166 (7) Chronic atrial fibrillation Current Visit: No Status: Acute Code(s): I48.2 - CHRONIC ATRIAL FIBRILLATION * DO NOT USE * SNOMED Code(s): 533422695 (8) Dyspnea Current Visit: No Status: Acute Code(s): R06.00 - DYSPNEA, UNSPECIFIED SNOMED Code(s): 248996976
[2021-03-01] MEDS ORDERED: POLYETHYLENE GLYCOL LYTES SOLN 4,000 ML SOLN.RECON PO ONE (14:00)
--- NOTE | 2021-03-01 18:08 | P.PN ---
Subjective Progress Note Date: 03/01/21 Principal diagnosis: Acute blood loss anemia Acute exacerbation CHF Atrial fibrillation with controlled ventricular response 70-year-old gentleman with history of chronic atrial fibrillation, COPD, hypertension and chronic CHF who was brought in with complaints of shortness of breath. She also has a history of nonischemic cardiomyopathy. Patient has bilateral leg swellin and also beat pain. Apparently patient has not been taking his medication on regular basis. Patient was supposed to take 40 mg of Lasix and patient has been taking less a dose on an inconsistent basis. Patient also found to be anemic with further drop of hemoglobin below 7. Patient was given blood transfusion last night and he seemed to be feeling better. He denies any dizziness, shortness of breath or palpitations. Chest x-ray showed evidence of cardiomegaly and maybe minimal congestion. Patient is seen and evaluated in room at bedside; reports improvement in riri athing; remains on Lasix 40 mg IV every 8 hours; continues to diurese well; improved swelling in lower extremities; hemoglobin is stable post transfusion with 1 unit packed RBCs; Coumadin remains on hold; cardiology on board and recommending to continue current dose of Coreg, digoxin and Lasix along with Toprol Patient has been evaluated by general surgery and is recommended endoscopy Objective - Vital Signs Vital signs: Vital Signs Temp 98.5 F 03/01/21 08:00 Pulse 75 03/01/21 12:02 Resp 16 03/01/21 08:00 BP 159/77 03/01/21 08:00 Pulse Ox 94 L 03/01/21 08:00 Intake & Output 02/28/21 03/01/21 03/01/21 18:59 06:59 18:59 Intake Total 600 310 Output Total 1100 Balance 600 310 -1100 Weight 129.727 kg 116.3 kg Intake: Oral 600 Blood Product 0 310 Rc Irr As1 Unit 0 310 [id number] Output: Urine 1100 Other: Voiding Method Diaper Diaper Diaper Incontinent Incontinent Incontinent # Voids 4 # Bowel Movements 0 - Exam - Constitutional General appearance: Present: average body habitus, cooperative, no acute distress - EENT Eyes: Present: anicteric sclerae, EOMI, PERRLA, normal appearance ENT: Present: hearing grossly normal, normal oropharynx Ears: bilateral: normal - Neck Neck: Present: normal ROM. Absent: lymphadenopathy, rigidity, thyromegaly Carotids: negative: bruit present Thyroid: bilateral: normal size, negative: enlarged, nodule - Respiratory Respiratory: bilateral: CTA, negative: rales, rhonchi, wheezing - Cardiovascular Rhythm: regular Heart sounds: normal: S1, S2 Abnormal Heart Sounds: Absent: systolic murmur, diastolic murmur - Gastrointestinal General gastrointestinal: Present: normal bowel sounds, soft. Absent: distended, organomegaly, tenderness - Genitourinary Genitourinary Comment(s): deferred - Integumentary Integumentary: Present: normal turgor. Absent: jaundiced, rash, ulcer - Neurologic Neurologic: Present: CNII-XII intact. Absent: focal deficits - Musculoskeletal Musculoskeletal: Present: gait normal, strength equal bilaterally - Psychiatric Psychiatric: Present: A&O x's 3, appropriate affect, intact judgment & insight - Labs CBC & Chem 7: 03/01/21 07:15 03/01/21 07:15 Labs: Abnormal Lab Results - Last 24 Hours (Table) 02/28/21 02/28/21 03/01/21 Range/Units 07:42 14:49 07:15 WBC 4.25 L (4.50-10.00) X 10*3/uL RBC 3.19 L (4.40-5.60) X 10*6/uL Hgb 6.5 L* (13.0-17.0) g/dL Hct 25.3 L (39.6-50.0) % MCV 79.3 L (80.0-97.0) fL MCH 20.4 L (27.0-32.0) pg MCHC 25.7 L (32.0-37.0) g/dL RDW 18.1 H (11.5-14.5) % Lymphocytes # (0.90-5.00) X 10*3/uL PT 14.9 H (9.0-12.0) sec INR 1.5 H (<1.2) Crossmatch See Detail 03/01/21 Range/Units 07:15 WBC (4.50-10.00) X 10*3/uL RBC 3.83 L (4.40-5.60) X 10*6/uL Hgb 8.1 L (13.0-17.0) g/dL Hct 29.8 L (39.6-50.0) % MCV 77.8 L (80.0-97.0) fL MCH 21.1 L (27.0-32.0) pg MCHC 27.2 L (32.0-37.0) g/dL RDW 17.7 H (11.5-14.5) % Lymphocytes # 0.88 L (0.90-5.00) X 10*3/uL PT (9.0-12.0) sec INR (<1.2) Crossmatch Assessment and Plan Assessment: 1. Acute exacerbation systolic CHF - Patient remains on Lasix 40 mg IV every 8 hours; we will continue to monitor strict MILO's, daily weights, renal function and electrolytes; Continue with low- salt and fluid restricted diet; patient remains on Coreg and digoxin 2. Atrial fibrillation with controlled ventricular response; patient remains rate controlled on Coreg and digoxin; anticoagulation therapy in form of Coumadin remains on hold due to GI bleed 3. Acute blood loss anemia/GI bleed; hemoglobin remained stable post transfusion with 1 unit of packed RBCs; general surgery on board; patient is recommended upper and lower endoscopy; given CHF exacerbation, patient will be prepped with low volume GI prep; we will continue to monitor H&H and transfuse if hemoglobin is less than 8.0 4. COPD; not in exacerbation; continue with home inhaler therapy 5. Hypertension; stable on home dose of Coreg DVT prophylaxis; SCDs only due to GI bleed CODE STATUS; full code
[2021-03-01] MEDS: allopurinoL 300 MG TAB PO SCH (21:44)
[2021-03-01] MEDS: MAGNESIUM OXIDE 400 MG TAB PO SCH (21:44)
[2021-03-02] MEDS: FUROSEMIDE 10 MG/ML 4 ML VIAL IV SCH ×3 (02:19→16:42)
[2021-03-02 06:16] LABS: INR 1.5 (<1.2); Prothrombin Time 14.9 sec (9.0-12.0)
[2021-03-02] MEDS: IPRATROPIUM-ALBUTEROL 3 ML NEB INHALATION SCH ×3 (08:20→20:07)
[2021-03-02] MEDS: ISOSORBIDE MONONITRATE ER 30 MG TAB.ER.24H PO SCH (09:51)
[2021-03-02] MEDS: POTASSIUM CHLORIDE ER 20 MEQ TAB.ER PO SCH ×2 (09:51→16:42)
[2021-03-02] MEDS: NAPROXEN 250 MG TAB PO SCH ×2 (09:51→09:55)
[2021-03-02] MEDS: carvediloL 12.5 MG TAB PO SCH ×2 (09:51→16:42)
[2021-03-02] MEDS: lisinopriL 20 MG TAB PO SCH (09:52)
[2021-03-02] MEDS: TAMSULOSIN 0.4 MG CAP.ER.24H PO SCH ×2 (09:52→09:56)
[2021-03-02] MEDS: DIGOXIN 125 MCG TAB PO SCH (09:52)
[2021-03-02] MEDS: metOLazone 5 MG TAB PO SCH (09:52)
--- NOTE | 2021-03-02 10:30 | P.PN ---
Subjective Progress Note Date: 03/02/21 This is 70-year-old gentleman with chronic atrial fibrillation, COPD, hypertension and chronic CHF who was noncompliant with medication is admitted to the hospital with complaints of increasing shortness of breath. He was found to be anemic and GI bleeding is suspected. Patient is seen by surgeon and is scheduled to have upper endoscopy and colonoscopy today. Denies any chest pain, shortness of breath, dizziness. He seemed to be comfortable at rest. Further recommendation will depend upon the findings on the above investigation Objective - Vital Signs Vital signs: Vital Signs Temp 97.7 F 03/02/21 08:02 Pulse 76 03/02/21 08:30 Resp 16 03/02/21 08:02 BP 155/94 03/02/21 08:02 Pulse Ox 93 L 03/02/21 08:02 Intake & Output 03/01/21 03/02/21 03/02/21 18:59 06:59 18:59 Output Total 1100 3050 Balance -1100 -3050 Weight 116 kg Output: Urine 1100 3050 Other: Voiding Method Diaper Diaper Incontinent Incontinent - Exam GENERAL EXAM: Patient is alert and oriented and doesn't appear to be in any acute distress HEENT: Normocephalic. Normal reaction of pupils, equal size, normal range of extraocular motion. No erythema or exudates in the throat. NECK: No masses, no nuchal rigidity. CHEST: No chest wall deformity. LUNGS: Equal air entry with no crackles or wheeze. HEART: S1 and S2 normal with no audible mumurs or gallops. Regular rhythm, femorals equal on both sides.. ABDOMEN: No hepatosplenomegaly, normal bowel sounds, no guarding or rigidity. SKIN: No rashes CENTRAL NERVOUS SYSTEM: No focal deficits. EXTREMITIES: Edema and excoriation and chronic stasis - Labs CBC & Chem 7: 03/01/21 07:15 03/01/21 07:15 Labs: Abnormal Lab Results - Last 24 Hours (Table) 03/01/21 03/01/21 03/02/21 Range/Units 07:15 07:15 05:48 RBC 3.83 L (4.40-5.60) X 10*6/uL Hgb 8.1 L (13.0-17.0) g/dL Hct 29.8 L (39.6-50.0) % MCV 77.8 L (80.0-97.0) fL MCH 21.1 L (27.0-32.0) pg MCHC 27.2 L (32.0-37.0) g/dL RDW 17.7 H (11.5-14.5) % Lymphocytes # 0.88 L (0.90-5.00) X 10*3/uL PT 14.9 H (9.0-12.0) sec INR 1.5 H (<1.2) Potassium 3.4 L (3.5-5.5) mmol/L Carbon Dioxide 33.1 H (21.6-31.8) mmol/L BUN 29.0 H (9.0-27.0) mg/dL Est GFR (CKD-EPI)NonAf 56.1 L (60.0-200.0) BUN/Creatinine Ratio 22.31 H (12.00-20.00) Ratio Calcium 8.4 L (8.7-10.3) mg/dL Assessment and Plan (1) Acute on chronic systolic CHF (congestive heart failure) Current Visit: Yes Status: Acute Code(s): I50.23 - ACUTE ON CHRONIC SYSTOLIC (CONGESTIVE) HEART FAILURE SNOMED Code(s): 595779902 (2) Bilateral lower extremity edema Current Visit: Yes Status: Acute Code(s): R60.0 - LOCALIZED EDEMA SNOMED Code(s): 230791431 (3) Atrial fibrillation Current Visit: No Status: Acute Code(s): I48.91 - UNSPECIFIED ATRIAL FIBRILLATION SNOMED Code(s): 63215613 (4) Prolonged Q-T interval on ECG Current Visit: No Status: Acute Code(s): R94.31 - ABNORMAL ELECTROCARDIOGRAM [ECG] [EKG] SNOMED Code(s): 404881538 (5) Anemia Current Visit: Yes Status: Acute Code(s): D64.9 - ANEMIA, UNSPECIFIED SNOMED Code(s): 561538455 Plan: Patient is going to have upper endoscopy and colonoscopy today. Otherwise clinically stable. We'll follow
[2021-03-02] MEDS ORDERED: PROPOFOL 10 MG/ML 20 ML VIAL IV ONE (13:41)
[2021-03-02] MEDS ORDERED: SODIUM CHLORIDE 0.9% 500 ML 500 ML IV ONE (13:56)
--- NOTE | 2021-03-02 14:18 | P.PCN ---
Date of Procedure: 03/02/21 Description of Procedure: PREOPERATIVE DIAGNOSIS: Gastrointestinal bleeding Acute blood loss anemia Acute congestive heart failure with exacerbation Chronic NSAID use Anticoagulant therapy POSTOPERATIVE DIAGNOSIS: Gastrointestinal bleeding Acute blood loss anemia Acute congestive heart failure with exacerbation Chronic NSAID use Anticoagulant therapy Acute and chronic gastric ulcers along the antrum OPERATION: Esophagogastroduodenoscopy SURGEON: Tamra Nuñez MD ANESTHESIA: MAC. INDICATIONS: The patient is a 70-year-old male who presents with acute blood loss anemia requiring blood transfusion. Upper endoscopy offered for anemia workup. Benefits and risks of the procedure were described. Informed consent was obtained. DESCRIPTION: The patient was brought into the endoscopy suite and laid in the left lateral decubitus position. An Olympus gastroscope was passed along the posterior oropharynx down to the distal esophagus where the squamocolumnar junction was encountered at 45 cm from the incisors. The stomach was entered and bile reflux was found. Additional findings are listed below. The first through third portion of the duodenum was examined and unremarkable. Retroflexion of the scope confirmed Hill grade 2 lower esophageal valve. The squamocolumnar junction demonstrated LA grade B erosive esophagitis. The stomach was desufflated. The patient tolerated the procedure well. FINDINGS: Squamocolumnar junction 45 cm from the incisors. Diaphragmatic hiatus at 45 cm. Hill grade 2 lower esophageal valve. LA grade B erosive esophagitis. No active duodenitis. No active bleeding Acute and chronic superficial gastric ulcers along the antrum due to NSAID gastropathy as a cause of bleeding RECOMMENDATIONS: 1. Discontinue all NSAIDs 2. Avoid concurrent anticoagulant 3. Protonix 40 mg twice a day for 4 weeks 4. Repeat upper endoscopy in 4 weeks
--- NOTE | 2021-03-02 14:22 | P.PCN ---
Date of Procedure: 03/02/21 Description of Procedure: PREOPERATIVE DIAGNOSIS: Acute blood loss anemia status post transfusion Positive occult stool Gastrointestinal bleeding with hematochezia POSTOPERATIVE DIAGNOSIS: Severe sigmoid diverticulosis OPERATION: Colonoscopy to the cecum, ileocecal valve and appendiceal orifice SURGEON: Tamra Nuñez MD. ANESTHESIA: MAC. INDICATIONS: The patient is a 70-year-old male who presents with gastrointestinal bleeding and positive occult stool. Benefits and risks were described and informed consent was obtained. DESCRIPTION OF PROCEDURE: The patient had undergone attempted Golytely prep 2 L. The patient had been brought into the operating room and laid in the left lateral decubitus position. After adequate intravenous sedation, the rectum was examined with 2% lidocaine jelly. The rectal tone was within normal limits. An Olympus colonoscope was gently advanced to the cecum with clear visualization of the ileocecal valve including appendiceal orifice. The prep was poor. Severe sigmoid diverticulosis was encountered without active bleeding. No active colonic bleed ing was found. No intraluminal masses were identified within the colon. No large colonic polyps were found however limited due to retained stool along the mucosa. No evidence of focal colitis was found. Retroflexion of the scope demonstrated grade 2 internal hemorrhoids without recent inflammation or bleeding. The colon was desufflated. The patient had tolerated the procedure well. Withdrawal time was over 6 minutes. FINDINGS: Aronchick preparation quality scale 4 (1-5) Internal hemorrhoids, grade 2 without inflammation or bleeding No thrombosed hemorrhoid identified. No arteriovenous malformations. No large adenomatous polyps. No focal colitis. No stigmata of bleeding Severe sigmoid diverticulosis Limited visualization of mucosa due to poor prep RECOMMENDATIONS: 1. Regular diet 2. Increased fiber diet 30 g daily for diverticulosis 3. Repeat colonoscopy 2 years, 2022 due to poor prep and limited visualization for small adenomatous polyps Plan - Discharge Summary Discharge Rx Participant: No New Discharge Prescriptions: No Action Tamsulosin HCl [Flomax] 0.8 mg PO DAILY Isosorbide Mononitrate ER [Imdur] 30 mg PO DAILY allopurinoL [Zyloprim] 300 mg PO HS Potassium Chloride 20 meq PO BID-W/MEALS Naproxen 500 mg PO BID-W/MEALS Carvedilol [Coreg] 25 mg PO BID-W/MEALS metOLazone [Zaroxolyn] 5 mg PO DAILY lisinopriL [Zestril] 20 mg PO DAILY Digoxin [Lanoxin] 125 mcg PO DAILY SILVER sulfADIAZINE CREAM [Silvadene Cream] 1 applic TOPICAL DAILY Magnesium Oxide 400 mg PO HS Warfarin [Coumadin] 3 mg PO DAILY@1800 HYDROcodone/APAP 5-325MG [[place] 5-325] 1 tab PO Q6HR PRN 3 Days #12 tab PRN Reason: Pain Albuterol Nebulized [Ventolin Nebulized] 2.5 mg INHALATION RT-Q6H PRN PRN Reason: Shortness Of Breath Discharge Medication List Isosorbide Mononitrate ER [Imdur] 30 mg PO DAILY 04/11/14 [History] Tamsulosin HCl [Flomax] 0.8 mg PO DAILY 04/11/14 [History] allopurinoL [Zyloprim] 300 mg PO HS 03/03/16 [History] Carvedilol [Coreg] 25 mg PO BID-W/MEALS 04/25/18 [History] Naproxen 500 mg PO BID-W/MEALS 04/25/18 [History] Potassium Chloride 20 meq PO BID-W/MEALS 04/25/18 [History] lisinopriL [Zestril] 20 mg PO DAILY 04/25/18 [History] metOLazone [Zaroxolyn] 5 mg PO DAILY 04/25/18 [History] Digoxin [Lanoxin] 125 mcg PO DAILY 06/09/18 [History] Magnesium Oxide 400 mg PO HS 12/29/20 [History] SILVER sulfADIAZINE CREAM [Silvadene Cream] 1 applic TOPICAL DAILY 12/29/20 [History] HYDROcodone/APAP 5-325MG [[place] 5-325] 1 tab PO Q6HR PRN 3 Days #12 tab 01/02/21 [Rx] Albuterol Nebulized [Ventolin Nebulized] 2.5 mg INHALATION RT-Q6H PRN 02/27/21 [History] Warfarin [Coumadin] 3 mg PO DAILY@1800 02/27/21 [History] Follow up Appointment(s)/Referral(s): Wiliam Modi MD [Primary Care Provider] - 1-2 days
[2021-03-02] MEDS: PANTOPRAZOLE 40 MG TABLET PO SCH (16:42)
--- NOTE | 2021-03-02 18:51 | P.PN ---
Subjective 70-year-old gentleman with history of chronic atrial fibrillation, COPD, hypertension and chronic CHF who was brought in with complaints of shortness of breath. She also has a history of nonischemic cardiomyopathy. Patient has bilateral leg swellin and also beat pain. Apparently patient has not been taking his medication on regular basis. Patient was supposed to take 40 mg of Lasix and patient has been taking less a dose on an inconsistent basis. Patient also found to be anemic with further drop of hemoglobin below 7. Patient was given blood transfusion last night and he seemed to be feeling better. He denies any dizziness, shortness of breath or palpitations. Chest x-ray showed evidence of cardiomegaly and maybe minimal congestion. Patient is seen and evaluated in room at bedside; reports improvement in breathing; remains on Lasix 40 mg IV every 8 hours; continues to diurese well; improved swelling in lower extremities; hemoglobin is stable post transfusion with 1 unit packed RBCs; Coumadin remains on hold; cardiology on board and recommending to continue current dose of Coreg, digoxin and Lasix along with Toprol Patient has been evaluated by general surgery and is recommended endoscopy Subjective: 03/02/2021 This is a pleasant 70 years old male with multiple medical problems presents on 02/27 for bilateral leg swelling and symptoms of suspected CHF. 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 Patient states that his been compliant with Coumadin at home. And his hemoglobin dropped 7.8 down to 6.5 and received one unit of blood transfusion up to 8.1. Patient has been evaluated by general surgery team and plan for him to go to EGD and/colonoscopy for today. His warfarin remains on hold and will be resumed once cleared by surgery after the procedure if it is indicated. He is hemodynamically stable. INR stable at 1.5 today. He is saturating 93% on room air. However patient states that he is using 2 L/m of oxygen at home as well as CPAP machine and currently denies any dyspnea or chest pain. He has only minimal bilateral leg swelling. ProBNP is minimally elevated at 3470. Because clinically he is improving we will lower his IV Lasix 40 mg every 8 hours down to every 12 hours. We will check Creatinine tomorrow and electrolytes, also we will check CBC, liver function test, magnesium and INR. Also we will check digoxin level Objective - Vital Signs Vital signs: Vital Signs Temp 97.7 F 03/02/21 08:02 Pulse 77 03/02/21 11:55 Resp 16 03/02/21 11:55 BP 155/94 03/02/21 08:02 Pulse Ox 93 L 03/02/21 08:02 Intake & Output 03/01/21 03/02/21 03/02/21 18:59 06:59 18:59 Output Total 1100 3050 1400 Balance -1100 -3050 -1400 Weight 116 kg Output: Urine 1100 3050 1400 Other: Voiding Method Diaper Diaper Incontinent Incontinent - Exam GENERAL: The patient is alert and oriented x3, not in any acute distress. Well developed, well nourished. HEENT: Pupils are round and equally reacting to light. EOMI. No scleral icterus. No conjunctival pallor. Normocephalic, atraumatic. No pharyngeal erythema. No thyromegaly. CARDIOVASCULAR: S1 and S2 present. No murmurs, rubs, or gallops. -PULMONARY: Chest is clear to auscultation, no wheezing . Bilateral basal crepitation ABDOMEN: Soft, nontender, nondistended, normoactive bowel sounds. No palpable organomegaly. MUSCULOSKELETAL: No joint swelling or deformity. -EXTREMITIES: No cyanosis, clubbing,. 1+ bilateral leg pitting edema. NEUROLOGICAL: Gross neurological examination did not reveal any focal deficits. SKIN: No rashes. no petechiae. - Labs CBC & Chem 7: 03/01/21 07:15 03/01/21 07:15 Labs: Abnormal Lab Results - Last 24 Hours (Table) 03/02/21 Range/Units 05:48 PT 14.9 H (9.0-12.0) sec INR 1.5 H (<1.2) Assessment and Plan Assessment: Assessment and Plan 1. Acute exacerbation systolic CHF. - Patient remains on Lasix 40 mg IV every 8 hours; the lower his Lasix to every 12 hours we will continue to monitor strict MILO's, daily weights, renal function and electrolytes; Continue with low-salt and fluid restricted diet; patient remains on Coreg and digoxin 2. Atrial fibrillation with controlled ventricular response; patient remains rate controlled on Coreg and digoxin; anticoagulation therapy in form of Coumadin remains on hold due to GI bleed 3. Acute blood loss anemia/GI bleed; hemoglobin remained stable post transfusion with 1 unit of packed RBCs; general surgery on board; patient is recommended upper and lower endoscopy; given CHF exacerbation, patient will be prepped with low volume GI prep; we will continue to monitor H&H and transfuse if hemoglobin is less than 8.0 4. COPD; not in exacerbation; continue with home inhaler therapy 5. Hypertension; stable on home dose of Coreg DVT prophylaxis; SCDs only due to GI bleed CODE STATUS; full code Dr. Modi will resume the care of the patient tomorrow
--- NOTE | 2021-03-02 19:40 | P.PN ---
Subjective Progress Note Date: 03/02/21 CHIEF COMPLAINT: Anemia HISTORY OF PRESENT ILLNESS: The patient is a 62-year-old male with comorbidities including atrial fibrillation, congestive heart failure, chronic obstructive pulmonary disease and anemia. He completed his upper and lower endoscopy. He is tolerating regular diet. He had findings of gastric ulcers. REVIEW OF ORGAN SYSTEMS: No fevers or chills. No nausea or vomiting. No chest pain. PHYSICAL EXAM: VITALS: Reviewed CONSTITUTIONAL: Well developed and in no acute distress. EYES: Conjuctivae without sclera icterus. Extraocular movements grossly intact. HEAD, EARS, NOSE, THROAT: Moist buccal mucosa. Head is atraumatic, normocephalic. Hears conversational speech. No nasal drainage. \RESPIRATORY: Non-labored respirations and equal bilateral excursions. No gross wheezes. CARDIOVASCULAR: 2+ radial pulses. ABDOMEN: Soft. No peritonitis. MUSCULOSKELETAL: Nail and fingers with good capillary refill. SKIN: Warm and well perfused with good skin turgor. NEUROLOGIC: Cranial nerves II through XII grossly intact. No focal or lateralizing signs. PSYCH: Appropriate affect. Alert and oriented to person, place and time. Displays appropriate insight. CLINCAL LABS: Reviewed. Hemoglobin up 6.5 to 8.1 ASSESSMENT: 1. Acute blood loss anemia with chronic anticoagulant use 2. Atrial fibrillation 3. Congestive heart failure with acute exacerbation 4. Chronic obstructive pulmonary disease 5. Gastric ulcers PLAN: 1. Recommend avoid anticoagulants and NSAIDs for acute gastric ulcers. 2. Recommend protonix twice daily Objective - Vital Signs Vital signs: Vital Signs Temp 98.1 F 03/02/21 19:30 Pulse 84 03/02/21 19:30 Resp 17 03/02/21 19:30 BP 110/60 03/02/21 19:30 Pulse Ox 94 L 03/02/21 19:30 Intake & Output 03/02/21 03/02/21 03/03/21 06:59 18:59 06:59 Intake Total 50 Output Total 3050 1900 Balance -305 -1850 Weight 116 kg Intake: IV 50 Output: Urine 3050 1900 Other: Voiding Method Diaper Incontinent - Labs CBC & Chem 7: 03/01/21 07:15 03/01/21 07:15 Labs: Abnormal Lab Results - Last 24 Hours (Table) 03/02/21 Range/Units 05:48 PT 14.9 H (9.0-12.0) sec INR 1.5 H (<1.2) Assessment and Plan (1) Acute on chronic systolic CHF (congestive heart failure) Current Visit: Yes Status: Acute Code(s): I50.23 - ACUTE ON CHRONIC SYSTOLIC (CONGESTIVE) HEART FAILURE SNOMED Code(s): 663279583 (2) Anemia Current Visit: Yes Status: Acute Code(s): D64.9 - ANEMIA, UNSPECIFIED SNOMED Code(s): 231375354 (3) Bilateral lower extremity edema Current Visit: Yes Status: Acute Code(s): R60.0 - LOCALIZED EDEMA SNOMED Code(s): 152115083 (4) CHF (congestive heart failure) Current Visit: Yes Status: Acute Code(s): I50.9 - HEART FAILURE, UNSPECIFIED SNOMED Code(s): 39176130 (5) Acute exacerbation of chronic obstructive airways disease Current Visit: No Status: Acute Code(s): J44.1 - CHRONIC OBSTRUCTIVE PULMONARY DISEASE W (ACUTE) EXACERBATION SNOMED Code(s): 443634079 (6) Atrial fibrillation Current Visit: No Status: Acute Code(s): I48.91 - UNSPECIFIED ATRIAL FIBRILLATION SNOMED Code(s): 75107484 (7) Chronic atrial fibrillation Current Visit: No Status: Acute Code(s): I48.2 - CHRONIC ATRIAL FIBRILLATION * DO NOT USE * SNOMED Code(s): 873238556 (8) Dyspnea Current Visit: No Status: Acute Code(s): R06.00 - DYSPNEA, UNSPECIFIED SNOMED Code(s): 272715968
[2021-03-02] MEDS: allopurinoL 300 MG TAB PO SCH (22:16)
[2021-03-02] MEDS: MAGNESIUM OXIDE 400 MG TAB PO SCH (22:16)
[2021-03-03] MEDS: FUROSEMIDE 10 MG/ML 4 ML VIAL IV SCH ×2 (05:06→17:35)
[2021-03-03] MEDS: PANTOPRAZOLE 40 MG TABLET PO SCH ×2 (08:36→17:34)
[2021-03-03] MEDS: lisinopriL 20 MG TAB PO SCH (08:36)
[2021-03-03] MEDS: TAMSULOSIN 0.4 MG CAP.ER.24H PO SCH (08:36)
[2021-03-03] MEDS: ISOSORBIDE MONONITRATE ER 30 MG TAB.ER.24H PO SCH (08:36)
[2021-03-03] MEDS: POTASSIUM CHLORIDE ER 20 MEQ TAB.ER PO SCH ×2 (08:37→17:34)
[2021-03-03] MEDS: DIGOXIN 125 MCG TAB PO SCH (08:37)
[2021-03-03] MEDS: carvediloL 12.5 MG TAB PO SCH ×2 (08:37→17:34)
[2021-03-03] MEDS: metOLazone 5 MG TAB PO SCH (08:37)
--- NOTE | 2021-03-03 08:38 | P.PN ---
Subjective Progress Note Date: 03/03/21 Principal diagnosis: Congestive heart Failure. This is a 70-year-old white male who had gained about 20 pounds in the last 2 months and was admitted Tuesday for appropriate CHF. The patient is now seen stabilizing after significant diuresis. He feels much better. This appearance is less boggy and edematous. Objective - Vital Signs Vital signs: Vital Signs Temp 97.9 F 03/03/21 07:41 Pulse 88 03/03/21 07:41 Resp 14 03/03/21 07:41 BP 151/89 03/03/21 07:41 Pulse Ox 91 L 03/03/21 07:41 Intake & Output 03/02/21 03/03/21 03/03/21 18:59 06:59 18:59 Intake Total 50 Output Total 1900 900 Balance -1850 -900 Weight 109.5 kg Intake: IV 50 Output: Urine 1900 900 Other: Voiding Method Diaper Bedside Commode Incontinent External Catheter - Constitutional General appearance: Present: obese - EENT Eyes: Absent: abnormal pupil - Neck Neck: Absent: lymphadenopathy - Respiratory Respiratory: bilateral: diminished - Cardiovascular Rhythm: irregularly irregular Heart sounds: normal: S1, S2 Abnormal Heart Sounds: Absent: S3 Gallop - Gastrointestinal General gastrointestinal: Present: soft. Absent: tenderness - Integumentary Integumentary: Present: rash. Absent: jaundiced - Musculoskeletal Musculoskeletal: Present: generalized weakness - Psychiatric Psychiatric: Present: A&O x's 3, appropriate affect, intact judgment & insight - Labs CBC & Chem 7: 03/01/21 07:15 03/01/21 07:15 Assessment and Plan (1) Acute on chronic systolic CHF (congestive heart failure) Current Visit: Yes Status: Acute Code(s): I50.23 - ACUTE ON CHRONIC SYSTOLIC (CONGESTIVE) HEART FAILURE SNOMED Code(s): 374612813 (2) Atrial fibrillation Current Visit: No Status: Acute Code(s): I48.91 - UNSPECIFIED ATRIAL FIBRILLATION SNOMED Code(s): 52032305 (3) Chronic venous hypertension (idiopathic) with ulcer and inflammation of bilateral lower extremity Current Visit: No Status: Acute Code(s): I87.333 - CHRONIC VENOUS HTN W ULCER AND INFLAM OF BILATERAL LOW EXTRM; L97.919 - NON-PRS CHRONIC ULC UNSP PRT OF R LOW LEG W UNSP SEVERITY; L97.929 - NON-PRS CHRONIC ULC UNSP PRT OF L LOW LEG W UNSP SEVERITY SNOMED Code(s): 713244888040425 (4) Edema extremities Current Visit: No Status: Acute Code(s): R60.0 - LOCALIZED EDEMA SNOMED Code(s): 032142133 (5) Generalized weakness Current Visit: No Status: Acute Code(s): R53.1 - WEAKNESS SNOMED Code(s): 38077438 Plan: Continue current diuresis. Check CMP and CBC in a.m. per Anticipate discharge in the next 24-48 hours once stabilized area outpatient treatment for edema. See orders otherwise.
[2021-03-03] MEDS: IPRATROPIUM-ALBUTEROL 3 ML NEB INHALATION SCH ×3 (09:11→21:10)
[2021-03-03 09:21] LABS: Basophils # (A) 0.03 X 10*3/uL (0.00-0.10); Basophils % (A) 0.5 %; Eosinophils # (A) 0.46 X 10*3/uL (0.04-0.35); Eosinophils % (A) 7.6 %; HCT 32.5 % (39.6-50.0); HGB 8.9 g/dL (13.0-17.0); Lymphocytes # (A) 1.04 X 10*3/uL (0.90-5.00); Lymphocytes % (A) 17.1 %; MCH 21.7 pg (27.0-32.0); MCHC 27.4 g/dL (32.0-37.0); MCV 79.1 fL (80.0-97.0); Monocytes # (A) 0.74 X 10*3/uL (0.20-1.00); Monocytes % (A) 12.2 %; Neutrophils # (A) 3.81 X 10*3/uL (1.80-7.70); Neutrophils % (A) 62.4 %; Platelet Count 214 X 10*3/uL (140-440); RBC 4.11 X 10*6/uL (4.40-5.60); RDW 18.8 % (11.5-14.5); WBC 6.09 X 10*3/uL (4.50-10.00)
[2021-03-03 10:05] LABS: Digoxin 0.8 ng/mL (0.8-2.0)
[2021-03-03 11:48] LABS: African American GFR (CKD) 50.6 (60.0-200.0); Albumin 3.3 g/dL (3.80-4.90); Albumin/Globulin Ratio 0.94 (1.60-3.17); Anion Gap 9.2 mmol/L (4.00-12.00); BUN/Creat Ratio 23.13 Ratio (12.00-20.00); Calcium 8.1 mg/dL (8.7-10.3); Carbon Dioxide 38.8 mmol/L (21.6-31.8); Globulin 3.5 g/dL (1.6-3.3); Magnesium 1.3 mg/dL (1.5-2.4); Non-African American GFR(CKD) 43.6 (60.0-200.0); Total Protein 6.8 g/dL (6.2-8.2)
--- NOTE | 2021-03-03 12:22 | P.PN ---
<Jeannine Bejarano - Last Filed: 03/03/21 12:18> Subjective Progress Note Date: 03/03/21 CHIEF COMPLAINT: Anemia HISTORY OF PRESENT ILLNESS: The patient is a 62-year-old male with comorbidities including atrial fibrillation, congestive heart failure, chronic obstructive pulmonary disease and anemia. He completed his upper and lower endoscopy. He is tolerating regular diet. He had findings of gastric ulcers. Patient is complaining of gas pains. He is having flatus. No bowel movement. Denies any nausea or vomiting. Afebrile. WBC 6.09 hemoglobin 8.9 platelets 214 potassium 3.0 creatinine 1.6 magnesium 1.3 PHYSICAL EXAM: VITAL SIGNS: Reviewed GENERAL: Well-developed in no acute distress. HEENT: No sclera icterus. Extraocular movements grossly intact. Moist buccal mucosa. Head is atraumatic, normocephalic. Hears conversational speech. No nasal drainage. NECK: Supple without lymphadenopathy. CHEST: Non-labored respirations and equal bilateral excursions. CARDIOVASCULAR: Palpable 2+ radial pulses. ABDOMEN: Soft. Nondistended. MUSCULOSKELETAL: No clubbing or cyanosis. NEUROLOGIC: No focal or lateralizing signs. Cranial nerves II through XII grossly intact. PSYCH: Appropriate affect. Alert and oriented to person, place and time. SKIN: Well perfused. Good skin turgor. ASSESSMENT: 1. Acute blood loss anemia with chronic anticoagulant use 2. Atrial fibrillation 3. Congestive heart failure with acute exacerbation 4. Chronic obstructive pulmonary disease 5. Gastric ulcers PLAN: -Add Mylicon gas drops for gas pain -Advance diet to regular -Recommend avoid anticoagulants and NSAIDs for acute gastric ulcers. -Recommend protonix twice daily -Replace patient's potassium and magnesium per medicine service Physician Laser Engraver note has been reviewed by physician. Signing provider agrees with the documented findings, assessment, and plan of care. Objective - Vital Signs Vital signs: Vital Signs Temp 97.9 F 03/03/21 07:41 Pulse 74 03/03/21 09:20 Resp 16 03/03/21 09:20 BP 151/89 03/03/21 07:41 Pulse Ox 96 03/03/21 09:11 Intake & Output 03/02/21 03/03/21 03/03/21 18:59 06:59 18:59 Intake Total 50 Output Total 1900 900 Balance -1850 -900 Weight 109.5 kg Intake: IV 50 Output: Urine 1900 900 Other: Voiding Method Diaper Bedside Commode Incontinent External Catheter - Labs CBC & Chem 7: 03/03/21 05:31 03/03/21 05:31 Labs: Abnormal Lab Results - Last 24 Hours (Table) 03/03/21 03/03/21 Range/Units 05:31 05:31 RBC 4.11 L (4.40-5.60) X 10*6/uL Hgb 8.9 L (13.0-17.0) g/dL Hct 32.5 L (39.6-50.0) % MCV 79.1 L (80.0-97.0) fL MCH 21.7 L (27.0-32.0) pg MCHC 27.4 L (32.0-37.0) g/dL RDW 18.8 H (11.5-14.5) % Eosinophils # 0.46 H (0.04-0.35) X 10*3/uL Potassium 3.0 L (3.5-5.5) mmol/L Chloride 90 L (96-109) mmol/L Carbon Dioxide 38.8 H (21.6-31.8) mmol/L BUN 37.0 H (9.0-27.0) mg/dL Creatinine 1.6 H (0.6-1.5) mg/dL Est GFR (CKD-EPI)AfAm 50.6 L (60.0-200.0) Est GFR (CKD-EPI)NonAf 43.6 L (60.0-200.0) BUN/Creatinine Ratio 23.13 H (12.00-20.00) Ratio Calcium 8.1 L (8.7-10.3) mg/dL Magnesium 1.3 L (1.5-2.4) mg/dL Total Bilirubin 2.0 H (0.2-1.2) mg/dL Alkaline Phosphatase 176 H (41-126) U/L Albumin 3.30 L (3.80-4.90) g/dL Globulin 3.5 H (1.6-3.3) g/dL Albumin/Globulin Ratio 0.94 L (1.60-3.17) g/dL <Tamra Nuñez - Last Filed: 03/04/21 11:45> Subjective CHIEF COMPLAINT: Anemia HISTORY OF PRESENT ILLNESS: The patient is a 62-year-old male with comorbidities including atrial fibrillation, congestive heart failure, chronic obstructive pulmonary disease and anemia. He is status post upper and lower endoscopy with findings of gastric ulcer for bleeding. REVIEW OF ORGAN SYSTEMS: No fevers or chills. No nausea or vomiting. No chest pain. PHYSICAL EXAM: VITALS: Reviewed CONSTITUTIONAL: Well developed and in no acute distress. EYES: Conjuctivae without sclera icterus. Extraocular movements grossly intact. HEAD, EARS, NOSE, THROAT: Moist buccal mucosa. Head is atraumatic, normocephalic. Hears conversational speech. No nasal drainage. \RESPIRATORY: Non-labored respirations and equal bilateral excursions. No gross wheezes. CARDIOVASCULAR: 2+ radial pulses. ABDOMEN: Soft. Nontender. MUSCULOSKELETAL: Nail and fingers with good capillary refill. SKIN: Warm and well perfused with good skin turgor. NEUROLOGIC: Cranial nerves II through XII grossly intact. No focal or lateralizing signs. PSYCH: Appropriate affect. Alert and oriented to person, place and time. Displays appropriate insight. CLINCAL LABS: Reviewed. Hemoglobin improved from a prolonged taper 0.9. ASSESSMENT: 1. Acute blood loss anemia with chronic anticoagulant use 2. Atrial fibrillation 3. Congestive heart failure with acute exacerbation 4. Chronic obstructive pulmonary disease 5. Gastric ulcers PLAN: 1. Continue Protonix by mouth twice daily upon discharge. 2. He is at elevated risk for bleeding from gastric ulcers with restart of anticoagulant. 3. He reports gaseous distention and simethicone advised Objective - Vital Signs Vital signs: Vital Signs Temp 98.0 F 03/04/21 07:33 Pulse 96 03/04/21 09:09 Resp 18 03/04/21 07:33 BP 110/65 03/04/21 07:33 Pulse Ox 93 L 03/04/21 08:59 Intake & Output 03/03/21 03/04/21 03/04/21 18:59 06:59 18:59 Output Total 1400 1800 Balance -1400 -1800 Weight 109 kg Output: Urine 1400 1800 Other: Voiding Method Bedside Commode Bedside Commode External Catheter External Catheter Incontinent - Labs CBC & Chem 7: 03/04/21 05:44 03/04/21 05:44 Labs: Abnormal Lab Results - Last 24 Hours (Table) 03/03/21 03/04/21 03/04/21 Range/Units 05:31 05:44 05:44 Hgb 9.5 L (13.0-17.0) g/dL Hct 34.5 L (39.6-50.0) % MCV 78.4 L (80.0-97.0) fL MCH 21.6 L (27.0-32.0) pg MCHC 27.5 L (32.0-37.0) g/dL RDW 19.1 H (11.5-14.5) % Potassium 3.0 L 3.1 L (3.5-5.5) mmol/L Chloride 90 L 89 L (96-109) mmol/L Carbon Dioxide 38.8 H 37.0 H (21.6-31.8) mmol/L BUN 37.0 H 47.0 H (9.0-27.0) mg/dL Creatinine 1.6 H 2.0 H (0.6-1.5) mg/dL Est GFR (CKD-EPI)AfAm 50.6 L 38.6 L (60.0-200.0) Est GFR (CKD-EPI)NonAf 43.6 L 33.3 L (60.0-200.0) BUN/Creatinine Ratio 23.13 H 23.50 H (12.00-20.00) Ratio Glucose 140 H (70-110) mg/dL Calcium 8.1 L 7.9 L (8.7-10.3) mg/dL Magnesium 1.3 L (1.5-2.4) mg/dL Total Bilirubin 2.0 H 1.7 H (0.2-1.2) mg/dL Alkaline Phosphatase 176 H 159 H (41-126) U/L Albumin 3.30 L 3.50 L (3.80-4.90) g/dL Globulin 3.5 H 3.4 H (1.6-3.3) g/dL Albumin/Globulin Ratio 0.94 L 1.03 L (1.60-3.17) g/dL Assessment and Plan (1) Acute on chronic systolic CHF (congestive heart failure) Current Visit: Yes Status: Acute Code(s): I50.23 - ACUTE ON CHRONIC SYSTOLIC (CONGESTIVE) HEART FAILURE SNOMED Code(s): 365305313 (2) Anemia Current Visit: Yes Status: Acute Code(s): D64.9 - ANEMIA, UNSPECIFIED SNOMED Code(s): 122528804 (3) Bilateral lower extremity edema Current Visit: Yes Status: Acute Code(s): R60.0 - LOCALIZED EDEMA SNOMED Code(s): 043498131 (4) CHF (congestive heart failure) Current Visit: Yes Status: Acute Code(s): I50.9 - HEART FAILURE, UNSPECIFIED SNOMED Code(s): 73877680 (5) Acute exacerbation of chronic obstructive airways disease Current Visit: No Status: Acute Code(s): J44.1 - CHRONIC OBSTRUCTIVE PULMONARY DISEASE W (ACUTE) EXACERBATION SNOMED Code(s): 220685248 (6) Atrial fibrillation Current Visit: No Status: Acute Code(s): I48.91 - UNSPECIFIED ATRIAL FIBRILLATION SNOMED Code(s): 78739879 (7) Chronic atrial fibrillation Current Visit: No Status: Acute Code(s): I48.2 - CHRONIC ATRIAL FIBRILLATION * DO NOT USE * SNOMED Code(s): 954275231 (8) Dyspnea Current Visit: No Status: Acute Code(s): R06.00 - DYSPNEA, UNSPECIFIED SNOMED Code(s): 880324453
[2021-03-03] MEDS: SIMETHICONE 40 MG/0.6 ML DROPS 2,000 MG/30 ML BOTTLE PO SCH ×4 (12:32→22:07)
[2021-03-03] MEDS: MAGNESIUM OXIDE 400 MG TAB PO SCH (22:03)
[2021-03-03] MEDS: allopurinoL 300 MG TAB PO SCH (22:04)
[2021-03-04] MEDS: FUROSEMIDE 10 MG/ML 4 ML VIAL IV SCH (07:15)
[2021-03-04] MEDS: POTASSIUM CHLORIDE ER 20 MEQ TAB.ER PO SCH ×6 (07:57→21:16)
[2021-03-04] MEDS: PANTOPRAZOLE 40 MG TABLET PO SCH ×2 (07:58→17:31)
[2021-03-04] MEDS ORDERED: MAGNESIUM SULFATE-D5W PMX 1 GM in DEXTROSE/WATER 1 100ML.BAG IVPB ONE ×2 (07:58→14:51)
[2021-03-04] MEDS: carvediloL 12.5 MG TAB PO SCH ×2 (07:58→17:31)
[2021-03-04] MEDS ORDERED: Potassium Replacement Protocol 1 EACH MISC MISCELLANE PRN ×3 (07:58→18:49)
--- NOTE | 2021-03-04 08:36 | P.PN ---
Subjective Principal diagnosis: Congestive heart Failure. This is a 70-year-old white male who had gained about 20 pounds in the last 2 months and was admitted Tuesday for appropriate CHF. The patient is now seen stabilizing after significant diuresis. He feels much better. This appearance is less boggy and edematous. The patient is now status post endoscopy which showed ulceration. Anemia is stabilizing. Objective - Vital Signs Vital signs: Vital Signs Temp 98.0 F 03/04/21 07:33 Pulse 100 03/04/21 07:33 Resp 18 03/04/21 07:33 BP 110/65 03/04/21 07:33 Pulse Ox 93 L 03/04/21 07:33 Intake & Output 03/03/21 03/04/21 03/04/21 18:59 06:59 18:59 Output Total 1400 1800 Balance -1400 -1800 Weight 109 kg Output: Urine 1400 1800 Other: Voiding Method Bedside Commode Bedside Commode External Catheter Incontinent - Constitutional General appearance: Present: obese - EENT Eyes: Absent: abnormal pupil - Neck Neck: Absent: lymphadenopathy - Respiratory Respiratory: bilateral: CTA - Cardiovascular Rhythm: irregularly irregular Heart sounds: normal: S1, S2 Abnormal Heart Sounds: Absent: S3 Gallop - Gastrointestinal General gastrointestinal: Present: soft. Absent: tenderness - Integumentary Integumentary: Absent: cellulitis - Psychiatric Psychiatric: Present: A&O x's 3 - Labs CBC & Chem 7: 03/03/21 05:31 03/03/21 05:31 Labs: Abnormal Lab Results - Last 24 Hours (Table) 03/03/21 03/03/21 Range/Units 05:31 05:31 RBC 4.11 L (4.40-5.60) X 10*6/uL Hgb 8.9 L (13.0-17.0) g/dL Hct 32.5 L (39.6-50.0) % MCV 79.1 L (80.0-97.0) fL MCH 21.7 L (27.0-32.0) pg MCHC 27.4 L (32.0-37.0) g/dL RDW 18.8 H (11.5-14.5) % Eosinophils # 0.46 H (0.04-0.35) X 10*3/uL Potassium 3.0 L (3.5-5.5) mmol/L Chloride 90 L (96-109) mmol/L Carbon Dioxide 38.8 H (21.6-31.8) mmol/L BUN 37.0 H (9.0-27.0) mg/dL Creatinine 1.6 H (0.6-1.5) mg/dL Est GFR (CKD-EPI)AfAm 50.6 L (60.0-200.0) Est GFR (CKD-EPI)NonAf 43.6 L (60.0-200.0) BUN/Creatinine Ratio 23.13 H (12.00-20.00) Ratio Calcium 8.1 L (8.7-10.3) mg/dL Magnesium 1.3 L (1.5-2.4) mg/dL Total Bilirubin 2.0 H (0.2-1.2) mg/dL Alkaline Phosphatase 176 H (41-126) U/L Albumin 3.30 L (3.80-4.90) g/dL Globulin 3.5 H (1.6-3.3) g/dL Albumin/Globulin Ratio 0.94 L (1.60-3.17) g/dL Assessment and Plan (1) Acute on chronic systolic CHF (congestive heart failure) Current Visit: Yes Status: Acute Code(s): I50.23 - ACUTE ON CHRONIC SYSTOLIC (CONGESTIVE) HEART FAILURE SNOMED Code(s): 468314291 (2) Atrial fibrillation Current Visit: No Status: Acute Code(s): I48.91 - UNSPECIFIED ATRIAL FIBRILLATION SNOMED Code(s): 41854003 (3) Chronic venous hypertension (idiopathic) with ulcer and inflammation of bilateral lower extremity Current Visit: No Status: Acute Code(s): I87.333 - CHRONIC VENOUS HTN W ULCER AND INFLAM OF BILATERAL LOW EXTRM; L97.919 - NON-PRS CHRONIC ULC UNSP PRT OF R LOW LEG W UNSP SEVERITY; L97.929 - NON-PRS CHRONIC ULC UNSP PRT OF L LOW LEG W UNSP SEVERITY SNOMED Code(s): 423398335855098 (4) Edema extremities Current Visit: No Status: Acute Code(s): R60.0 - LOCALIZED EDEMA SNOMED Co de(s): 550369177 (5) Generalized weakness Current Visit: No Status: Acute Code(s): R53.1 - WEAKNESS SNOMED Code(s): 63583977 Plan: Continue current diuresis. Switch to by mouth Lasix today. Check CMP and CBC in a.m. check magnesium in a.m. Anticipate discharge in the next 24-48 hours once stabilized area outpatient treatment for edema. GI bleeding will be also be monitored. See orders otherwise. Time with Patient: Greater than 30
[2021-03-04] MEDS: IPRATROPIUM-ALBUTEROL 3 ML NEB INHALATION SCH ×3 (08:59→20:18)
[2021-03-04 09:19] LABS: HCT 34.5 % (39.6-50.0); HGB 9.5 g/dL (13.0-17.0); MCH 21.6 pg (27.0-32.0); MCHC 27.5 g/dL (32.0-37.0); MCV 78.4 fL (80.0-97.0); Mean Platelet Volume 10.9 fL (9.5-12.2); Platelet Count 216 X 10*3/uL (140-440); RDW 19.1 % (11.5-14.5); WBC 5.78 X 10*3/uL (4.50-10.00)
[2021-03-04] MEDS: TAMSULOSIN 0.4 MG CAP.ER.24H PO SCH (09:53)
[2021-03-04] MEDS: ISOSORBIDE MONONITRATE ER 30 MG TAB.ER.24H PO SCH (09:53)
[2021-03-04] MEDS: lisinopriL 20 MG TAB PO SCH (09:53)
[2021-03-04] MEDS: DIGOXIN 125 MCG TAB PO SCH (09:54)
[2021-03-04] MEDS: metOLazone 5 MG TAB PO SCH (09:54)
[2021-03-04] MEDS: SIMETHICONE 40 MG/0.6 ML DROPS 2,000 MG/30 ML BOTTLE PO SCH ×4 (09:54→19:59)
[2021-03-04 11:36] LABS: African American GFR (CKD) 38.6 (60.0-200.0); Albumin 3.5 g/dL (3.80-4.90); Albumin/Globulin Ratio 1.03 (1.60-3.17); BUN/Creat Ratio 23.5 Ratio (12.00-20.00); Calcium 7.9 mg/dL (8.7-10.3); Globulin 3.4 g/dL (1.6-3.3); Non-African American GFR(CKD) 33.3 (60.0-200.0); Potassium 3.1 mmol/L (3.5-5.5); Total Bilirubin 1.7 mg/dL (0.3-1.2); Total Protein 6.9 g/dL (6.2-8.2)
[2021-03-04 12:03] LABS: Glucose,Whole Blood 204 mg/dL (75-99)
[2021-03-04 14:15] LABS: Magnesium 1.8 mg/dL (1.6-2.3); Potassium 3.6 mmol/L (3.5-5.1)
[2021-03-04] MEDS ORDERED: POTASSIUM CHLORIDE ER 20 MEQ TAB.ER PO SCH (15:00)
[2021-03-04] MEDS: FUROSEMIDE 40 MG TAB PO SCH (15:08)
--- NOTE | 2021-03-04 15:28 | P.PN ---
<Jeannine Bejarano - Last Filed: 03/04/21 15:25> Subjective Progress Note Date: 03/04/21 CHIEF COMPLAINT: Anemia HISTORY OF PRESENT ILLNESS: The patient is a 62-year-old male with comorbidities including atrial fibrillation, congestive heart failure, chronic obstructive pulmonary disease and anemia. He completed his upper and lower endoscopy. He is tolerating regular diet. He had findings of gastric ulcers. Patient is lying in bed comfortably. He denies any abdominal pain. Denies any gas pains. Denies any nausea or vomiting. He is having flatus. Denies any bowel movement. Afebrile. WBC 5.78 hemoglobin is up from 8.9-9.5 potassium 3.6 magnesium 1.8 PHYSICAL EXAM: VITAL SIGNS: Reviewed GENERAL: Well-developed in no acute distress. HEENT: No sclera icterus. Extraocular movements grossly intact. Moist buccal mucosa. Head is atraumatic, normocephalic. Hears conversational speech. No nasal drainage. NECK: Supple without lymphadenopathy. CHEST: Non-labored respirations and equal bilateral excursions. CARDIOVASCULAR: Palpable 2+ radial pulses. ABDOMEN: Soft. Nondistended. MUSCULOSKELETAL: No clubbing or cyanosis. NEUROLOGIC: No focal or lateralizing signs. Cranial nerves II through XII grossly intact. PSYCH: Appropriate affect. Alert and oriented to person, place and time. SKIN: Well perfused. Good skin turgor. ASSESSMENT: 1. Acute blood loss anemia with chronic anticoagulant use 2. Atrial fibrillation 3. Congestive heart failure with acute exacerbation 4. Chronic obstructive pulmonary disease 5. Gastric ulcers PLAN: -Continue regular diet -Recommend avoid anticoagulants and NSAIDs for acute gastric ulcers. -Recommend protonix twice daily -Patient is at elevated risk for bleeding from gastric ulcers with restart of anticoagulant Physician Push Bench Operator Helper note has been reviewed by physician. Signing provider agrees with the documented findings, assessment, and plan of care. Objective - Vital Signs Vital signs: Vital Signs Temp 97.5 F L 03/04/21 13:30 Pulse 80 03/04/21 13:30 Resp 18 03/04/21 13:30 BP 97/66 03/04/21 13:30 Pulse Ox 94 L 03/04/21 13:30 Intake & Output 03/03/21 03/04/21 03/04/21 18:59 06:59 18:59 Output Total 1400 1800 Balance -1400 -1800 Weight 109 kg Output: Urine 1400 1800 Other: Voiding Method Bedside Commode Bedside Commode External Catheter External Catheter Incontinent - Labs CBC & Chem 7: 03/04/21 05:44 03/04/21 13:38 Labs: Abnormal Lab Results - Last 24 Hours (Table) 03/04/21 03/04/21 03/04/21 Range/Units 05:44 05:44 05:44 Hgb 9.5 L (13.0-17.0) g/dL Hct 34.5 L (39.6-50.0) % MCV 78.4 L (80.0-97.0) fL MCH 21.6 L (27.0-32.0) pg MCHC 27.5 L (32.0-37.0) g/dL RDW 19.1 H (11.5-14.5) % Potassium 3.1 L (3.5-5.5) mmol/L Chloride 89 L (96-109) mmol/L Carbon Dioxide 37.0 H (21.6-31.8) mmol/L BUN 47.0 H (9.0-27.0) mg/dL Creatinine 2.0 H (0.6-1.5) mg/dL Est GFR (CKD-EPI)AfAm 38.6 L (60.0-200.0) Est GFR (CKD-EPI)NonAf 33.3 L (60.0-200.0) BUN/Creatinine Ratio 23.50 H (12.00-20.00) Ratio Glucose 140 H (70-110) mg/dL POC Glucose (mg/dL) (75-99) mg/dL Calcium 7.9 L (8.7-10.3) mg/dL Magnesium 1.5 L (1.6-2.3) mg/dL Total Bilirubin 1.7 H (0.3-1.2) mg/dL Alkaline Phosphatase 159 H (41-126) U/L Albumin 3.50 L (3.80-4.90) g/dL Globulin 3.4 H (1.6-3.3) g/dL Albumin/Globulin Ratio 1.03 L (1.60-3.17) g/dL 03/04/21 Range/Units 11:57 Hgb (13.0-17.0) g/dL Hct (39.6-50.0) % MCV (80.0-97.0) fL MCH (27.0-32.0) pg MCHC (32.0-37.0) g/dL RDW (11.5-14.5) % Potassium (3.5-5.5) mmol/L Chloride (96-109) mmol/L Carbon Dioxide (21.6-31.8) mmol/L BUN (9.0-27.0) mg/dL Creatinine (0.6-1.5) mg/dL Est GFR (CKD-EPI)AfAm (60.0-200.0) Est GFR (CKD-EPI)NonAf (60.0-200.0) BUN/Creatinine Ratio (12.00-20.00) Ratio Glucose (70-110) mg/dL POC Glucose (mg/dL) 204 H (75-99) mg/dL Calcium (8.7-10.3) mg/dL Magnesium (1.6-2.3) mg/dL Total Bilirubin (0.3-1.2) mg/dL Alkaline Phosphatase (41-126) U/L Albumin (3.80-4.90) g/dL Globulin (1.6-3.3) g/dL Albumin/Globulin Ratio (1.60-3.17) g/dL <Tamra Nuñez - Last Filed: 03/05/21 11:44> Subjective As above. Patient is tolerating diet. He denies any gastrointestinal bleeding. No abdominal pain. Recommend sodium restriction due to congestive heart failure. We'll continue to follow. Objective - Vital Signs Vital signs: Vital Signs Temp 97.4 F L 03/05/21 07:51 Pulse 88 03/05/21 10:00 Resp 17 03/05/21 07:51 BP 136/76 03/05/21 07:51 Pulse Ox 99 03/05/21 07:51 Intake & Output 03/04/21 03/05/21 03/05/21 18:59 06:59 18:59 Output Total 750 900 Balance -750 -900 Weight 109.5 kg Output: Urine 750 900 Other: Voiding Method External Catheter External Catheter # Bowel Movements 1 1 - Labs CBC & Chem 7: 03/05/21 05:17 03/05/21 05:17 Labs: Abnormal Lab Results - Last 24 Hours (Table) 03/04/21 03/04/21 03/04/21 Range/Units 05:44 11:57 18:20 RBC (4.40-5.60) X 10*6/uL Hgb (13.0-17.0) g/dL Hct (39.6-50.0) % MCH (27.0-32.0) pg MCHC (32.0-37.0) g/dL RDW (11.5-14.5) % Potassium 3.4 L (3.5-5.1) mmol/L Chloride (96-109) mmol/L Carbon Dioxide (21.6-31.8) mmol/L BUN (9.0-27.0) mg/dL Creatinine (0.6-1.5) mg/dL Est GFR (CKD-EPI)AfAm (60.0-200.0) Est GFR (CKD-EPI)NonAf (60.0-200.0) BUN/Creatinine Ratio (12.00-20.00) Ratio Glucose (70-110) mg/dL POC Glucose (mg/dL) 204 H (75-99) mg/dL Calcium (8.7-10.3) mg/dL Magnesium 1.5 L (1.6-2.3) mg/dL Total Bilirubin (0.3-1.2) mg/dL Alkaline Phosphatase (41-126) U/L Albumin (3.80-4.90) g/dL Globulin (1.6-3.3) g/dL Albumin/Globulin Ratio (1.60-3.17) g/dL 03/04/21 03/05/21 03/05/21 Range/Units 23:30 05:17 05:17 RBC 4.25 L (4.40-5.60) X 10*6/uL Hgb 9.4 L (13.0-17.0) g/dL Hct 34.2 L (39.6-50.0) % MCH 22.1 L (27.0-32.0) pg MCHC 27.5 L (32.0-37.0) g/dL RDW 19.4 H (11.5-14.5) % Potassium 3.4 L 3.4 L (3.5-5.1) mmol/L Chloride 95 L (96-109) mmol/L Carbon Dioxide 35.2 H (21.6-31.8) mmol/L BUN 55.0 H (9.0-27.0) mg/dL Creatinine 1.9 H (0.6-1.5) mg/dL Est GFR (CKD-EPI)AfAm 41.1 L (60.0-200.0) Est GFR (CKD-EPI)NonAf 35.4 L (60.0-200.0) BUN/Creatinine Ratio 28.95 H (12.00-20.00) Ratio Glucose 124 H (70-110) mg/dL POC Glucose (mg/dL) (75-99) mg/dL Calcium 7.7 L (8.7-10.3) mg/dL Magnesium (1.6-2.3) mg/dL Total Bilirubin 1.5 H (0.3-1.2) mg/dL Alkaline Phosphatase 145 H (41-126) U/L Albumin 3.50 L (3.80-4.90) g/dL Globulin 3.5 H (1.6-3.3) g/dL Albumin/Globulin Ratio 1.00 L (1.60-3.17) g/dL Assessment and Plan (1) Acute on chronic systolic CHF (congestive heart failure) Current Visit: Yes Status: Acute Code(s): I50.23 - ACUTE ON CHRONIC SYSTOLIC (CONGESTIVE) HEART FAILURE SNOMED Code(s): 901055283 (2) Anemia Current Visit: Yes Status: Acute Code(s): D64.9 - ANEMIA, UNSPECIFIED SNOMED Code(s): 351751014 (3) Bilateral lower extremity edema Current Visit: Yes Status: Acute Code(s): R60.0 - LOCALIZED EDEMA SNOMED Code(s): 765443958 (4) CHF (congestive heart failure) Current Visit: Yes Status: Acute Code(s): I50.9 - HEART FAILURE, UNSPECIFIED SNOMED Code(s): 40600748 (5) Acute exacerbation of chronic obstructive airways disease Current Visit: No Status: Acute Code(s): J44.1 - CHRONIC OBSTRUCTIVE PULMONARY DISEASE W (ACUTE) EXACERBATION SNOMED Code(s): 894591655 (6) Atrial fibrillation Current Visit: No Status: Acute Code(s): I48.91 - UNSPECIFIED ATRIAL FIBRILLATION SNOMED Code(s): 69171930 (7) Chronic atrial fibrillation Current Visit: No Status: Acute Code(s): I48.2 - CHRONIC ATRIAL FIBRILLATION * DO NOT USE * SNOMED Code(s): 709643080 (8) Dyspnea Current Visit: No Status: Acute Code(s): R06.00 - DYSPNEA, UNSPECIFIED SNOMED Code(s): 798679218
[2021-03-04] MEDS: allopurinoL 300 MG TAB PO SCH (19:58)
[2021-03-04] MEDS: MAGNESIUM OXIDE 400 MG TAB PO SCH (19:59)
[2021-03-05] MEDS ORDERED: MAGNESIUM SULFATE-D5W PMX 1 GM in DEXTROSE/WATER 1 100ML.BAG IVPB ONE (08:30)
--- NOTE | 2021-03-05 08:40 | P.PN ---
Subjective Principal diagnosis: Congestive heart Failure. This is a 70-year-old white male who had gained about 20 pounds in the last 2 months and was admitted Tuesday for appropriate CHF. The patient is now seen stabilizing after significant diuresis. He feels much better. This appearance is less boggy and edematous. The patient is now status post endoscopy which showed ulceration. Anemia is stabilizing. Magnesium is stable. We will supplement with 1 more gram today. I do suspect this is related to Protonix usage and renal failure. Objective - Vital Signs Vital signs: Vital Signs Temp 97.4 F L 03/05/21 07:51 Pulse 92 03/05/21 07:51 Resp 17 03/05/21 07:51 BP 136/76 03/05/21 07:51 Pulse Ox 99 03/05/21 07:51 Intake & Output 03/04/21 03/05/21 03/05/21 18:59 06:59 18:59 Output Total 750 900 Balance -750 -900 Weight 109.5 kg Output: Urine 750 900 Other: Voiding Method External Catheter External Catheter # Bowel Movements 1 1 - Constitutional General appearance: Present: obese - EENT Eyes: Absent: abnormal pupil - Neck Neck: Absent: lymphadenopathy - Respiratory Respiratory: bilateral: CTA - Cardiovascular Rhythm: irregularly irregular Heart sounds: normal: S1, S2 Abnormal Heart Sounds: Absent: S3 Gallop - Gastrointestinal General gastrointestinal: Present: soft. Absent: tenderness - Neurologic Neurologic: Present: CNII-XII intact - Musculoskeletal Musculoskeletal: Present: generalized weakness - Labs CBC & Chem 7: 03/04/21 05:44 03/04/21 23:30 Labs: Abnormal Lab Results - Last 24 Hours (Table) 03/04/21 03/04/21 03/04/21 Range/Units 05:44 05:44 05:44 Hgb 9.5 L (13.0-17.0) g/dL Hct 34.5 L (39.6-50.0) % MCV 78.4 L (80.0-97.0) fL MCH 21.6 L (27.0-32.0) pg MCHC 27.5 L (32.0-37.0) g/dL RDW 19.1 H (11.5-14.5) % Potassium 3.1 L (3.5-5.5) mmol/L Chloride 89 L (96-109) mmol/L Carbon Dioxide 37.0 H (21.6-31.8) mmol/L BUN 47.0 H (9.0-27.0) mg/dL Creatinine 2.0 H (0.6-1.5) mg/dL Est GFR (CKD-EPI)AfAm 38.6 L (60.0-200.0) Est GFR (CKD-EPI)NonAf 33.3 L (60.0-200.0) BUN/Creatinine Ratio 23.50 H (12.00-20.00) Ratio Glucose 140 H (70-110) mg/dL POC Glucose (mg/dL) (75-99) mg/dL Calcium 7.9 L (8.7-10.3) mg/dL Magnesium 1.5 L (1.6-2.3) mg/dL Total Bilirubin 1.7 H (0.3-1.2) mg/dL Alkaline Phosphatase 159 H (41-126) U/L Albumin 3.50 L (3.80-4.90) g/dL Globulin 3.4 H (1.6-3.3) g/dL Albumin/Globulin Ratio 1.03 L (1.60-3.17) g/dL 03/04/21 03/04/21 03/04/21 Range/Units 11:57 18:20 23:30 Hgb (13.0-17.0) g/dL Hct (39.6-50.0) % MCV (80.0-97.0) fL MCH (27.0-32.0) pg MCHC (32.0-37.0) g/dL RDW (11.5-14.5) % Potassium 3.4 L 3.4 L (3.5-5.5) mmol/L Chloride (96-109) mmol/L Carbon Dioxide (21.6-31.8) mmol/L BUN (9.0-27.0) mg/dL Creatinine (0.6-1.5) mg/dL Est GFR (CKD-EPI)AfAm (60.0-200.0) Est GFR (CKD-EPI)NonAf (60.0-200.0) BUN/Creatinine Ratio (12.00-20.00) Ratio Glucose (70-110) mg/dL POC Glucose (mg/dL) 204 H (75-99) mg/dL Calcium (8.7-10.3) mg/dL Magnesium (1.6-2.3) mg/dL Total Bilirubin (0.3-1.2) mg/dL Alkaline Phosphatase (41-126) U/L Albumin (3.80-4.90) g/dL Globulin (1.6-3.3) g/dL Albumin/Globulin Ratio (1.60-3.17) g/dL Assessment and Plan (1) Acute on chronic systolic CHF (congestive heart failure) Current Visit: Yes Status: Acute Code(s): I50.23 - ACUTE ON CHRONIC SYSTOLIC (CONGESTIVE) HEART FAILURE SNOMED Code(s): 160010550 (2) Atrial fibrillation Current Visit: No Status: Acute Code(s): I48.91 - UNSPECIFIED ATRIAL FIBRILLATION SNOMED Code(s): 12797306 (3) Chronic venous hypertension (idiopathic) with ulcer and inflammation of bilateral lower extremity Current Visit: No Status: Acute Code(s): I87.333 - CHRONIC VENOUS HTN W ULCER AND INFLAM OF BILATERAL LOW EXTRM; L97.919 - NON-PRS CHRONIC ULC UNSP PRT OF R LOW LEG W UNSP SEVERITY; L97.929 - NON-PRS CHRONIC ULC UNSP PRT OF L LOW LEG W UNSP SEVERITY SNOMED Code(s): 785645658077586 (4) Edema extremities Current Visit: No Status: Acute Code(s): R60.0 - LOCALIZED EDEMA SNOMED Code(s): 785326523 (5) Generalized weakness Current Visit: No Status: Acute Code(s): R53.1 - WEAKNESS SNOMED Code(s): 36466749 Plan: Continue current diuresis. Switch to by mouth Lasix today. Check CMP and CBC in a.m. check magnesium in a.m. Anticipate discharge in the next 24-48 hours once stabilized area outpatient treatment for edema. GI bleeding will be also be monitored. See orders otherwise. Increase ambulation today.
[2021-03-05 09:17] LABS: HCT 34.2 % (39.6-50.0); HGB 9.4 g/dL (13.0-17.0); MCH 22.1 pg (27.0-32.0); MCHC 27.5 g/dL (32.0-37.0); MCV 80.5 fL (80.0-97.0); Mean Platelet Volume 10.2 fL (9.5-12.2); Platelet Count 196 X 10*3/uL (140-440); RBC 4.25 X 10*6/uL (4.40-5.60); RDW 19.4 % (11.5-14.5); WBC 5.39 X 10*3/uL (4.50-10.00)
[2021-03-05] MEDS: IPRATROPIUM-ALBUTEROL 3 ML NEB INHALATION SCH ×3 (09:22→19:11)
[2021-03-05] MEDS: carvediloL 12.5 MG TAB PO SCH ×2 (10:03→18:11)
[2021-03-05] MEDS: POTASSIUM CHLORIDE ER 20 MEQ TAB.ER PO SCH ×2 (10:03→18:13)
[2021-03-05] MEDS: DIGOXIN 125 MCG TAB PO SCH (10:05)
[2021-03-05] MEDS: lisinopriL 20 MG TAB PO SCH (10:05)
[2021-03-05] MEDS: metOLazone 5 MG TAB PO SCH (10:06)
[2021-03-05 10:07] LABS: African American GFR (CKD) 41.1 (60.0-200.0); Albumin 3.5 g/dL (3.80-4.90); Anion Gap 8.8 mmol/L (4.00-12.00); BUN/Creat Ratio 28.95 Ratio (12.00-20.00); Calcium 7.7 mg/dL (8.7-10.3); Carbon Dioxide 35.2 mmol/L (21.6-31.8); Globulin 3.5 g/dL (1.6-3.3); Magnesium 1.8 mg/dL (1.5-2.4); Non-African American GFR(CKD) 35.4 (60.0-200.0); Potassium 3.4 mmol/L (3.5-5.5); Total Bilirubin 1.5 mg/dL (0.3-1.2)
[2021-03-05] MEDS: ISOSORBIDE MONONITRATE ER 30 MG TAB.ER.24H PO SCH (10:07)
[2021-03-05] MEDS: PANTOPRAZOLE 40 MG TABLET PO SCH ×2 (10:07→18:11)
[2021-03-05] MEDS: TAMSULOSIN 0.4 MG CAP.ER.24H PO SCH (10:09)
[2021-03-05] MEDS: SIMETHICONE 40 MG/0.6 ML DROPS 2,000 MG/30 ML BOTTLE PO SCH ×4 (10:13→21:48)
[2021-03-05] MEDS: FUROSEMIDE 40 MG TAB PO SCH ×2 (10:15→16:04)
--- NOTE | 2021-03-05 10:35 | P.CONS ---
History of Present Illness - Reason for Consult Consult date: 03/05/21 Wound care - History of Present Illness This is a 70-year-old patient known to the wound care center who follows with Dr. Carney. His next appointment will be next Tuesday. Original cause of wound was Gradually Appeared. The wound is currently classified as a Full Thickness Without Exposed Support Structures wound with e tiologies of Venous Leg Ulcer and Trauma, Other and is located on the Left,Anterior Lower Leg. The wound measures 15cm length x 18cm width x 0.1cm depth; 212.058cm^2 area and 21.206cm^3 volume. The wound is limited to skin breakdown. There is no tunneling or undermining noted. There is a large amount of serosanguineous drainage noted. The wound margin is distinct with the outline attached to the wound base. There is large (67-100%) red granulation within the wound bed. There is no necrotic tissue within the wound bed. The periwound skin appearance exhibited: Scarring, Maceration, Hemosiderin Staining. The periwound skin appearance did not exhibit: Callus, Crepitus, Excoriation, Induration, R toro, Dry/Scaly, Atrophie Farrah, Cyanosis, Ecchymosis, Mottled, Pallor, Rubor, Erythema. Periwound temperature was noted as No Abnormality. The periwound has tenderness on palpation. Original cause of wound was Not Known. The wound is currently classified as a Full Thickness Without Exposed Support Structures wound with etiology of Venous Leg Ulcer and is located on the Right,Posterior Lower Leg. The wound measures 14.6cm length x 4.5cm width x 0.1cm depth; 51.601cm^2 area and 5.16cm^3 volume. The wound is limited to skin breakdown. There is no tunneling or undermining noted. There is a large amount of serosanguineous drainage noted. The wound margin is flat and intact. There is large (67-100%) red granulation within the wound bed. There is a small (1-33%) amount of necrotic tissue within the wound bed including Adherent Slough. The periwound skin appearance exhibited: Scarring, Dry/Scaly, Maceration, Hemosiderin Staining. The periwound skin appearance did not exhibit: Callus, Crepitus, Excoriation, Induration, Rash, Atrophie Farrah, Cyanosis, Ecchymosis, Mottled, Pallor, Rubor, Erythema. Periwound temperature was noted as No Abnormality. The periwound has tenderness on palpation. Original cause of wound was Gradually Appeared. The wound is currently classified as a Full Thickness Without Exposed Support Structures wound with etiology of Venous Leg Ulcer and is located on the Right,Anterior Lower Leg. The wound measures 0cm length x 0cm width x 0cm depth; 0cm^2 area and 0cm^3 volume. The wound is limited to skin breakdown. There is no tunneling or undermining noted. There is a none present amount of drainage noted. The wound margin is distinct with the outline attached to the wound base. There is no granulation within the wound bed. There is no necrotic tissue within the wound bed. The periwound skin appearance exhibited: Dry/Scaly, Hemosiderin Staining. Periwound temperature was noted as No Abnormality. Review Of Systems: Constitutional: No fever, no chills, no night sweats. No weight change. No weakness, fatigue or lethargy. No daytime sleepiness. Integumentary:reports wounds, no lesions. No rash or pruritus. No unusual bruising. No change in hair or nails. Physical exam: General Appearance: Alert, cooperative, no distress, appears stated age. Skin: See HPI all other Skin color, texture, tugor normal, no rashes or lesions. Neurologic: Alert oriented x3 Assessment: 1. Chronic venous hypertension with ulcer of bilateral lower extremities 2. Lymphedema Plan: 1. Left anterior lower leg and right posterior lower leg: Apply absorptive silver, saline moistened gauze, dry gauze, ABDs, wrap with Kerlix, wrap with Kahlil wrap. 2. Next Appointment is March 09 at [address] Carney. Continue to utilize lymphedema pumps twice a day at home. Elevate legs for 30 minutes. Avoid standing for long periods. Thank you for the consultation any questions please contact the wound care center DNP note has been reviewed and discussed with Dr. Cadet and the impression and plan of care has been directed as dictated. Past Medical History Past Medical History: Atrial Fibrillation, Heart Failure, COPD, Hypertension, Osteoarthritis (OA), Pneumonia, Prostate Disorder, Renal Disease, Sleep Apnea/CPAP/BIPAP, Vascular Disorder Additional Past Medical History / Comment(s): Nonischemic cardiomyopathy, cardiac valve disease, bronchitis, JIMMIE with Cpap and O2 at 2L at hs, past decreased renal function, arthritis bilateral hands/knees, gout bilateral feet, numbness bilateral legs/feet, carpal tunnel syndrome bilaterally, bilateral hand tremors, nonhealing bilateral lower leg wounds/cellulitis, varicosities, lower leg/pedal edema, PVD, BPH. History of Any Multi-Drug Resistant Organisms: MRSA Year Discovered:: 08/30/12 MDRO Source:: LEG(not sure which) Past Surgical History: Heart Catheterization Additional Past Surgical History / Comment(s): Split thickness skin graft to L leg, bronchoscopy, cyst and partial jaw removed/has screws, oral surgery age 8- too many teeth. Past Anesthesia/Blood Transfusion Reactions: Previous Problems w/ Anesthesia Additional Past Anesthesia/Blood Transfusion Reaction / Comm: STATED DURING BRONCH STOPPED BREATHING, (brochoscopy done at [facility]-record on chart) Past Psychological History: Anxiety Additional Psychological History / Comment(s): Pt resides with his spouse, daughter and grandchild. He uses a walker. He has a Cpap/oxygen at home. Smoking Status: Never smoker Past Alcohol Use History: None Reported Additional Past Alcohol Use History / Comment(s): Pt started smoking cigars on occasion in 1981 and quit in 2019 Past Drug Use History: None Reported - Past Family History Father Family Medical History: Dementia, Eye Disorder Additional Family Medical History / Comment(s): MACULAR DEGENERATION Mother Family Medical History: Diabetes Mellitus, Eye Disorder, Vascular Disorder Additional Family Medical History / Comment(s): ANEURYSMS, CATARACTS. Medications and Allergies Home Medications Medication Instructions Recorded Confirmed Type Isosorbide Mononitrate ER [Imdur] 30 mg PO DAILY 04/11/14 02/27/21 History Tamsulosin HCl [Flomax] 0.8 mg PO DAILY 04/11/14 02/27/21 History allopurinoL [Zyloprim] 300 mg PO HS 03/03/16 02/27/21 History Carvedilol [Coreg] 25 mg PO BID-W/MEALS 04/25/18 02/27/21 History Naproxen 500 mg PO BID-W/MEALS 04/25/18 02/27/21 History Potassium Chloride 20 meq PO BID-W/MEALS 04/25/18 02/27/21 History lisinopriL [Zestril] 20 mg PO DAILY 04/25/18 02/27/21 History metOLazone [Zaroxolyn] 5 mg PO DAILY 04/25/18 02/27/21 History Digoxin [Lanoxin] 125 mcg PO DAILY 06/09/18 02/27/21 History Magnesium Oxide 400 mg PO HS 12/29/20 02/27/21 History SILVER sulfADIAZINE CREAM 1 applic TOPICAL DAILY 12/29/20 02/27/21 History [Silvadene Cream] HYDROcodone/APAP 5-325MG [[place] 1 tab PO Q6HR PRN 3 Days #12 tab 01/02/21 02/27/21 Rx 5-325] Albuterol Nebulized [Ventolin 2.5 mg INHALATION RT-Q6H PRN 02/27/21 02/27/21 History Nebulized] Warfarin [Coumadin] 3 mg PO DAILY@1800 02/27/21 02/27/21 History Allergies Allergy/AdvReac Type Severity Reaction Status Date / Time No Known Allergies Allergy Verified 02/27/21 12:33 Physical Exam Vitals: Vital Signs Temp Pulse Pulse Resp BP Pulse Ox 03/05/21 10:00 88 03/05/21 09:33 88 03/05/21 09:22 96 03/05/21 07:51 97.4 F L 92 17 136/76 99 03/05/21 07:29 97.8 F 77 18 123/79 99 03/05/21 01:00 98.3 F 93 15 116/63 98 03/04/21 20:30 80 03/04/21 20:19 84 03/04/21 19:22 97.8 F 87 15 110/57 93 L 03/04/21 17:28 118 H 117/68 03/04/21 13:30 97.5 F L 80 18 97/66 94 L 03/04/21 13:13 81 03/04/21 13:03 77 97 Intake and Output 03/04/21 03/05/21 03/05/21 22:59 06:59 14:59 Output Total 1250 400 Balance -1250 -400 Output: Urine 1250 400 Other: Voiding Method External Catheter # Bowel Movements 1 1 Weight 109.5 kg Results CBC & Chem 7: 03/05/21 05:17 03/05/21 05:17 Labs: Abnormal Lab Results - Last 24 Hours (Table) 03/04/21 03/04/21 03/04/21 Range/Units 05:44 05:44 11:57 RBC (4.40-5.60) X 10*6/uL Hgb (13.0-17.0) g/dL Hct (39.6-50.0) % MCH (27.0-32.0) pg MCHC (32.0-37.0) g/dL RDW (11.5-14.5) % Potassium 3.1 L (3.5-5.5) mmol/L Chloride 89 L (96-109) mmol/L Carbon Dioxide 37.0 H (21.6-31.8) mmol/L BUN 47.0 H (9.0-27.0) mg/dL Creatinine 2.0 H (0.6-1.5) mg/dL Est GFR (CKD-EPI)AfAm 38.6 L (60.0-200.0) Est GFR (CKD-EPI)NonAf 33.3 L (60.0-200.0) BUN/Creatinine Ratio 23.50 H (12.00-20.00) Ratio Glucose 140 H (70-110) mg/dL POC Glucose (mg/dL) 204 H (75-99) mg/dL Calcium 7.9 L (8.7-10.3) mg/dL Magnesium 1.5 L (1.6-2.3) mg/dL Total Bilirubin 1.7 H (0.3-1.2) mg/dL Alkaline Phosphatase 159 H (41-126) U/L Albumin 3.50 L (3.80-4.90) g/dL Globulin 3.4 H (1.6-3.3) g/dL Albumin/Globulin Ratio 1.03 L (1.60-3.17) g/dL 03/04/21 03/04/21 03/05/21 Range/Units 18:20 23:30 05:17 RBC (4.40-5.60) X 10*6/uL Hgb (13.0-17.0) g/dL Hct (39.6-50.0) % MCH (27.0-32.0) pg MCHC (32.0-37.0) g/dL RDW (11.5-14.5) % Potassium 3.4 L 3.4 L 3.4 L (3.5-5.5) mmol/L Chloride 95 L (96-109) mmol/L Carbon Dioxide 35.2 H (21.6-31.8) mmol/L BUN 55.0 H (9.0-27.0) mg/dL Creatinine 1.9 H (0.6-1.5) mg/dL Est GFR (CKD-EPI)AfAm 41.1 L (60.0-200.0) Est GFR (CKD-EPI)NonAf 35.4 L (60.0-200.0) BUN/Creatinine Ratio 28.95 H (12.00-20.00) Ratio Glucose 124 H (70-110) mg/dL POC Glucose (mg/dL) (75-99) mg/dL Calcium 7.7 L (8.7-10.3) mg/dL Magnesium (1.6-2.3) mg/dL Total Bilirubin 1.5 H (0.3-1.2) mg/dL Alkaline Phosphatase 145 H (41-126) U/L Albumin 3.50 L (3.80-4.90) g/dL Globulin 3.5 H (1.6-3.3) g/dL Albumin/Globulin Ratio 1.00 L (1.60-3.17) g/dL 03/05/21 Range/Units 05:17 RBC 4.25 L (4.40-5.60) X 10*6/uL Hgb 9.4 L (13.0-17.0) g/dL Hct 34.2 L (39.6-50.0) % MCH 22.1 L (27.0-32.0) pg MCHC 27.5 L (32.0-37.0) g/dL RDW 19.4 H (11.5-14.5) % Potassium (3.5-5.5) mmol/L Chloride (96-109) mmol/L Carbon Dioxide (21.6-31.8) mmol/L BUN (9.0-27.0) mg/dL Creatinine (0.6-1.5) mg/dL Est GFR (CKD-EPI)AfAm (60.0-200.0) Est GFR (CKD-EPI)NonAf (60.0-200.0) BUN/Creatinine Ratio (12.00-20.00) Ratio Glucose (70-110) mg/dL POC Glucose (mg/dL) (75-99) mg/dL Calcium (8.7-10.3) mg/dL Magnesium (1.6-2.3) mg/dL Total Bilirubin (0.3-1.2) mg/dL Alkaline Phosphatase (41-126) U/L Albumin (3.80-4.90) g/dL Globulin (1.6-3.3) g/dL Albumin/Globulin Ratio (1.60-3.17) g/dL Assessment and Plan (1) Chronic venous hypertension (idiopathic) with ulcer and inflammation of bilateral lower extremity Current Visit: No Status: Acute Code(s): I87.333 - CHRONIC VENOUS HTN W ULCER AND INFLAM OF BILATERAL LOW EXTRM; L97.919 - NON-PRS CHRONIC ULC UNSP PRT OF R LOW LEG W UNSP SEVERITY; L97.929 - NON-PRS CHRONIC ULC UNSP PRT OF L LOW LEG W UNSP SEVERITY SNOMED Code(s): 954132359983480 (2) Lymphedema Current Visit: No Status: Acute Code(s): I89.0 - LYMPHEDEMA, NOT ELSEWHERE CLASSIFIED SNOMED Code(s): 521082299 (3) Nonhealing ulcer of multiple sites of left lower extremity with fat layer exposed Current Visit: No Status: Acute Code(s): L97.922 - NON-PRS CHR ULC UNSP PRT OF L LOW LEG W FAT LAYER EXPOSED SNOMED Code(s): 83618053 (4) Nonhealing ulcer of multiple sites of right lower extremity with fat layer exposed Current Visit: No Status: Acute Code(s): L97.912 - NON-PRS CHR ULC UNSP PRT OF R LOW LEG W FAT LAYER EXPOSED SNOMED Code(s): 31464479
--- NOTE | 2021-03-05 11:47 | P.PN ---
Subjective Progress Note Date: 03/05/21 CHIEF COMPLAINT: Anemia HISTORY OF PRESENT ILLNESS: The patient is a 70-year-old male who presented with anemia, acute exacerbation of congestive heart failure. No further blood transfusions. He is tolerating diet. He denies abdominal pain. REVIEW OF ORGAN SYSTEMS: No fevers or chills. No nausea or vomiting. No chest pain. PHYSICAL EXAM: VITALS: Reviewed CONSTITUTIONAL: Well developed and in no acute distress. EYES: Conjuctivae without sclera icterus. Extraocular movements grossly intact. HEAD, EARS, NOSE, THROAT: Moist buccal mucosa. Head is atraumatic, normocephalic. Hears conversational speech. No nasal drainage. \RESPIRATORY: Non-labored respirations and equal bilateral excursions. No gross wheezes. CARDIOVASCULAR: 2+ radial pulses. ABDOMEN: Soft. No peritonitis. MUSCULOSKELETAL: Nail and fingers with good capillary refill. SKIN: Warm and well perfused with good skin turgor. NEUROLOGIC: Cranial nerves II through XII grossly intact. No focal or lateralizing signs. PSYCH: Appropriate affect. Alert and oriented to person, place and time. Displays appropriate insight. CLINCAL LABS: Reviewed. Hemoglobin up 6.5 to 8.1, now 9.4 ASSESSMENT: 1. Acute blood loss anemia with chronic anticoagulant use 2. Atrial fibrillation 3. Congestive heart failure with acute exacerbation 4. Chronic obstructive pulmonary disease 5. Gastric ulcers PLAN: 1. Recommend fluid restriction and sodium restriction for congestive heart failure exacerbation. 2. Continue proton pump inhibitor twice daily. 3. Recommend Protonix 40 mg daily as GI protectant from antiplatelet therapy and anticoagulants. 4. General surgery will sign off. Please reconsult as needed. Objective - Vital Signs Vital signs: Vital Signs Temp 97.4 F L 03/05/21 07:51 Pulse 88 03/05/21 10:00 Resp 17 03/05/21 07:51 BP 136/76 03/05/21 07:51 Pulse Ox 99 03/05/21 07:51 Intake & Output 03/04/21 03/05/21 03/05/21 18:59 06:59 18:59 Output Total 750 900 Balance -750 -900 Weight 109.5 kg Output: Urine 750 900 Other: Voiding Method External Catheter External Catheter # Bowel Movements 1 1 - Labs CBC & Chem 7: 03/05/21 05:17 03/05/21 05:17 Labs: Abnormal Lab Results - Last 24 Hours (Table) 03/04/21 03/04/21 03/04/21 Range/Units 05:44 11:57 18:20 RBC (4.40-5.60) X 10*6/uL Hgb (13.0-17.0) g/dL Hct (39.6-50.0) % MCH (27.0-32.0) pg MCHC (32.0-37.0) g/dL RDW (11.5-14.5) % Potassium 3.4 L (3.5-5.1) mmol/L Chloride (96-109) mmol/L Carbon Dioxide (21.6-31.8) mmol/L BUN (9.0-27.0) mg/dL Creatinine (0.6-1.5) mg/dL Est GFR (CKD-EPI)AfAm (60.0-200.0) Est GFR (CKD-EPI)NonAf (60.0-200.0) BUN/Creatinine Ratio (12.00-20.00) Ratio Glucose (70-110) mg/dL POC Glucose (mg/dL) 204 H (75-99) mg/dL Calcium (8.7-10.3) mg/dL Magnesium 1.5 L (1.6-2.3) mg/dL Total Bilirubin (0.3-1.2) mg/dL Alkaline Phosphatase (41-126) U/L Albumin (3.80-4.90) g/dL Globulin (1.6-3.3) g/dL Albumin/Globulin Ratio (1.60-3.17) g/dL 03/04/21 03/05/21 03/05/21 Range/Units 23:30 05:17 05:17 RBC 4.25 L (4.40-5.60) X 10*6/uL Hgb 9.4 L (13.0-17.0) g/dL Hct 34.2 L (39.6-50.0) % MCH 22.1 L (27.0-32.0) pg MCHC 27.5 L (32.0-37.0) g/dL RDW 19.4 H (11.5-14.5) % Potassium 3.4 L 3.4 L (3.5-5.1) mmol/L Chloride 95 L (96-109) mmol/L Carbon Dioxide 35.2 H (21.6-31.8) mmol/L BUN 55.0 H (9.0-27.0) mg/dL Creatinine 1.9 H (0.6-1.5) mg/dL Est GFR (CKD-EPI)AfAm 41.1 L (60.0-200.0) Est GFR (CKD-EPI)NonAf 35.4 L (60.0-200.0) BUN/Creatinine Ratio 28.95 H (12.00-20.00) Ratio Glucose 124 H (70-110) mg/dL POC Glucose (mg/dL) (75-99) mg/dL Calcium 7.7 L (8.7-10.3) mg/dL Magnesium (1.6-2.3) mg/dL Total Bilirubin 1.5 H (0.3-1.2) mg/dL Alkaline Phosphatase 145 H (41-126) U/L Albumin 3.50 L (3.80-4.90) g/dL Globulin 3.5 H (1.6-3.3) g/dL Albumin/Globulin Ratio 1.00 L (1.60-3.17) g/dL Assessment and Plan (1) Acute on chronic systolic CHF (congestive heart failure) Current Visit: Yes Status: Acute Code(s): I50.23 - ACUTE ON CHRONIC SYSTOLIC (CONGESTIVE) HEART FAILURE SNOMED Code(s): 947837325 (2) Anemia Current Visit: Yes Status: Acute Code(s): D64.9 - ANEMIA, UNSPECIFIED SNOMED Code(s): 171072608 (3) Bilateral lower extremity edema Current Visit: Yes Status: Acute Code(s): R60.0 - LOCALIZED EDEMA SNOMED Code(s): 741703187 (4) CHF (congestive heart failure) Current Visit: Yes Status: Acute Code(s): I50.9 - HEART FAILURE, UNSPECIFIED SNOMED Code(s): 72347828 (5) Acute exacerbation of chronic obstructive airways disease Current Visit: No Status: Acute Code(s): J44.1 - CHRONIC OBSTRUCTIVE PULMONARY DISEASE W (ACUTE) EXACERBATION SNOMED Code(s): 737835058 (6) Atrial fibrillation Current Visit: No Status: Acute Code(s): I48.91 - UNSPECIFIED ATRIAL FIBRI LLATION SNOMED Code(s): 89084356 (7) Chronic atrial fibrillation Current Visit: No Status: Acute Code(s): I48.2 - CHRONIC ATRIAL FIBRILLATION * DO NOT USE * SNOMED Code(s): 294719837 (8) Dyspnea Current Visit: No Status: Acute Code(s): R06.00 - DYSPNEA, UNSPECIFIED SNOMED Code(s): 946468347
[2021-03-05] MEDS: HYDROcodone/APAP 5-325MG 1 EACH TAB PO PRN (16:09)
[2021-03-05] MEDS: MAGNESIUM OXIDE 400 MG TAB PO SCH (20:22)
[2021-03-05] MEDS: allopurinoL 300 MG TAB PO SCH (20:22)
[2021-03-06] MEDS: POTASSIUM CHLORIDE ER 20 MEQ TAB.ER PO SCH ×2 (07:59→17:56)
[2021-03-06] MEDS: PANTOPRAZOLE 40 MG TABLET PO SCH ×2 (07:59→17:56)
[2021-03-06] MEDS: carvediloL 12.5 MG TAB PO SCH ×2 (07:59→20:07)
[2021-03-06] MEDS: IPRATROPIUM-ALBUTEROL 3 ML NEB INHALATION SCH ×3 (08:19→19:42)
[2021-03-06] MEDS: TAMSULOSIN 0.4 MG CAP.ER.24H PO SCH (08:50)
[2021-03-06] MEDS: FUROSEMIDE 40 MG TAB PO SCH ×2 (08:50→16:45)
[2021-03-06] MEDS: ISOSORBIDE MONONITRATE ER 30 MG TAB.ER.24H PO SCH (08:50)
[2021-03-06] MEDS: metOLazone 5 MG TAB PO SCH (08:51)
[2021-03-06] MEDS: DIGOXIN 125 MCG TAB PO SCH (08:51)
[2021-03-06] MEDS: lisinopriL 20 MG TAB PO SCH (09:08)
[2021-03-06] MEDS: SIMETHICONE 40 MG/0.6 ML DROPS 2,000 MG/30 ML BOTTLE PO SCH ×4 (09:08→20:18)
--- NOTE | 2021-03-06 12:09 | P.PN ---
<Jeannine Bejarano - Last Filed: 03/06/21 12:07> Subjective Progress Note Date: 03/06/21 CHIEF COMPLAINT: Anemia HISTORY OF PRESENT ILLNESS: The patient is a 62-year-old male with comorbidities including atrial fibrillation, congestive heart failure, chronic obstructive pulmonary disease and anemia. He completed his upper and lower endoscopy. He is tolerating regular diet. He had findings of gastric ulcers. Patient is lying in bed comfortably. He denies any abdominal pain. Denies any nausea or vomiting. He is having bowel movements. Afebrile. No new labs for today PHYSICAL EXAM: VITAL SIGNS: Reviewed GENERAL: Well-developed in no acute distress. HEENT: No sclera icterus. Extraocular movements grossly intact. Moist buccal mucosa. Head is atraumatic, normocephalic. Hears conversational speech. No nasal drainage. NECK: Supple without lymphadenopathy. CHEST: Non-labored respirations and equal bilateral excursions. CARDIOVASCULAR: Palpable 2+ radial pulses. ABDOMEN: Soft. Nondistended. MUSCULOSKELETAL: No clubbing or cyanosis. NEUROLOGIC: No focal or lateralizing signs. Cranial nerves II through XII grossly intact. PSYCH: Appropriate affect. Alert and oriented to person, place and time. SKIN: Well perfused. Good skin turgor. ASSESSMENT: 1. Acute blood loss anemia with chronic anticoagulant use 2. Atrial fibrillation 3. Congestive heart failure with acute exacerbation 4. Chronic obstructive pulmonary disease 5. Gastric ulcers PLAN: -Okay to restart patient's oral anticoagulation -Continue regular diet -Recommend protonix twice daily -Surgical service will sign off. Please call with any questions or concerns [employer] note has been reviewed by physician. Signing provider agrees with the documented findings, assessment, and plan of care. Objective - Vital Signs Vital signs: Vital Signs Temp 98.2 F 03/06/21 07:08 Pulse 77 03/06/21 08:29 Resp 16 03/06/21 08:29 BP 131/68 03/06/21 07:08 Pulse Ox 97 03/06/21 08:19 Intake & Output 03/05/21 03/06/21 03/06/21 18:59 06:59 18:59 Intake Total 222 Output Total 825 Balance -603 Intake: Oral 222 Output: Urine 825 Other: Voiding Method Diaper External Catheter # Bowel Movements 1 - Labs CBC & Chem 7: 03/05/21 05:17 03/05/21 11:59 <Tamra Nuñez N - Last Filed: 03/06/21 23:22> Subjective Patient seen and evaluated with above. CHIEF COMPLAINT: Anemia HISTORY OF PRESENT ILLNESS: The patient is a 70-year-old male with anemia including congestive heart failure. He has had no further bleeds. REVIEW OF ORGAN SYSTEMS: No fevers or chills. No nausea or vomiting. No chest pain. PHYSICAL EXAM: VITALS: Reviewed CONSTITUTIONAL: Well developed and in no acute distress. EYES: Conjuctivae without sclera icterus. Extraocular movements grossly intact. HEAD, EARS, NOSE, THROAT: Moist buccal mucosa. Head is atraumatic, normocephalic. Hears conversational speech. No nasal drainage. \RESPIRATORY: Non-labored respirations and equal bilateral excursions. No gross wheezes. CARDIOVASCULAR: 2+ radial pulses. ABDOMEN: Soft. No peritonitis. MUSCULOSKELETAL: No clubbing, cyanosis. Has edema. SKIN: Warm and well perfused with good skin turgor. NEUROLOGIC: Cranial nerves II through XII grossly intact. No focal or lateralizing signs. PSYCH: Appropriate affect. Alert and oriented to person, place and time. Displays appropriate insight. CLINCAL LABS: Reviewed. Hemoglobin 9.4 from yesterday. ASSESSMENT: 1. Acute blood loss anemia with chronic anticoagulant use 2. Atrial fibrillation 3. Congestive heart failure with acute exacerbation 4. Chronic obstructive pulmonary disease 5. Gastric ulcers PLAN: 1. May start blood thinners. 2. Continue protonix while on anticoagulants. Objective - Vital Signs Vital signs: Vital Signs Temp 98.3 F 03/06/21 20:00 Pulse 94 03/06/21 20:00 Resp 18 03/06/21 20:00 BP 97/54 03/06/21 20:00 Pulse Ox 97 03/06/21 20:00 Intake & Output 03/06/21 03/06/21 03/07/21 06:59 18:59 06:59 Intake Total 222 Output Total 825 900 650 Balance -772 -906 -093 Intake: Oral 222 Output: Urine 825 900 650 - Labs CBC & Chem 7: 03/05/21 05:17 03/05/21 11:59 Assessment and Plan (1) Acute on chronic systolic CHF (congestive heart failure) Current Visit: Yes Status: Acute Code(s): I50.23 - ACUTE ON CHRONIC SYSTOLIC (CONGESTIVE) HEART FAILURE SNOMED Code(s): 217662265 (2) Anemia Current Visit: Yes Status: Acute Code(s): D64.9 - ANEMIA, UNSPECIFIED SNOMED Code(s): 877197446 (3) Bilateral lower extremity edema Current Visit: Yes Status: Acute Code(s): R60.0 - LOCALIZED EDEMA SNOMED Code(s): 939961053 (4) CHF (congestive heart failure) Current Visit: Yes Status: Acute Code(s): I50.9 - HEART FAILURE, UNSPECIFIED SNOMED Code(s): 83061918 (5) Acute exacerbation of chronic obstructive airways disease Current Visit: No Status: Acute Code(s): J44.1 - CHRONIC OBSTRUCTIVE PULMONARY DISEASE W (ACUTE) EXACERBATION SNOMED Code(s): 965588227 (6) Atrial fibrillation Current Visit: No Status: Acute Code(s): I48.91 - UNSPECIFIED ATRIAL FIBRILLATION SNOMED Code(s): 30998723 (7) Chronic atrial fibrillation Current Visit: No Status: Acute Code(s): I48.2 - CHRONIC ATRIAL FIBRILLATION * DO NOT USE * SNOMED Code(s): 234280812 (8) Dyspnea Current Visit: No Status: Acute Code(s): R06.00 - DYSPNEA, UNSPECIFIED SNOMED Code(s): 356749877
[2021-03-06] MEDS: HYDROcodone/APAP 5-325MG 1 EACH TAB PO PRN (16:43)
[2021-03-06] MEDS ORDERED: WARFARIN 5 MG TAB PO ONE (18:00)
[2021-03-06] MEDS ORDERED: WARFARIN 3 MG TAB PO SCH (18:00)
[2021-03-06] MEDS: MAGNESIUM OXIDE 400 MG TAB PO SCH (20:18)
[2021-03-06] MEDS: allopurinoL 300 MG TAB PO SCH (20:18)
[2021-03-07 06:58] LABS: INR 1.2 (<1.2); Prothrombin Time 12.3 sec (9.0-12.0)
[2021-03-07] MEDS: IPRATROPIUM-ALBUTEROL 3 ML NEB INHALATION SCH ×3 (07:34→20:29)
[2021-03-07] MEDS: ISOSORBIDE MONONITRATE ER 30 MG TAB.ER.24H PO SCH (07:59)
[2021-03-07] MEDS: FUROSEMIDE 40 MG TAB PO SCH ×2 (07:59→16:52)
[2021-03-07] MEDS: carvediloL 12.5 MG TAB PO SCH ×2 (07:59→16:52)
[2021-03-07] MEDS: lisinopriL 20 MG TAB PO SCH (07:59)
[2021-03-07] MEDS: PANTOPRAZOLE 40 MG TABLET PO SCH ×2 (07:59→16:52)
[2021-03-07] MEDS: DIGOXIN 125 MCG TAB PO SCH (07:59)
[2021-03-07] MEDS: TAMSULOSIN 0.4 MG CAP.ER.24H PO SCH (07:59)
[2021-03-07] MEDS: metOLazone 5 MG TAB PO SCH (07:59)
[2021-03-07] MEDS: POTASSIUM CHLORIDE ER 20 MEQ TAB.ER PO SCH ×2 (07:59→16:52)
[2021-03-07] MEDS: SIMETHICONE 40 MG/0.6 ML DROPS 2,000 MG/30 ML BOTTLE PO SCH ×4 (08:00→20:18)
[2021-03-07 10:50] LABS: Anisocytosis Slight; Basophils % (A) 1 %; Eosinophils # (A) 0.5 k/uL (0-0.7); Eosinophils % (A) 9 %; Hypochromasia Marked; Lymphocytes % (A) 17 %; MCHC 29.4 g/dL (31.0-37.0); Mean Platelet Volume 9.6; Microcytosis Slight; Monocytes # (A) 0.3 k/uL (0-1.0); Monocytes % (A) 6 %; Neutrophils # (A) 3.7 k/uL (1.3-7.7); Neutrophils % (A) 65 %; Platelet Count 164 k/uL (150-450); Poikilocytosis Slight; RBC 4.23 m/uL (4.30-5.90); RDW 18.3 % (11.5-15.5); WBC 5.8 k/uL (3.8-10.6)
[2021-03-07 10:52] LABS: HGB 9.7 gm/dL (13.0-17.5)
[2021-03-07 11:08] LABS: African American GFR (CKD) 50 (>60 ml/min/1.73 sqM); Anion Gap 9 mmol/L; Blood Urea Nitrogen 65 mg/dL (9-20); Calcium 8.5 mg/dL (8.4-10.2); Carbon Dioxide 34 mmol/L (22-30); Chloride 95 mmol/L (98-107); Glucose 165 mg/dL (74-99); Non-African American GFR(CKD) 44 (>60 ml/min/1.73 sqM); Potassium 3.4 mmol/L (3.5-5.1); Sodium 138 mmol/L (137-145)
--- NOTE | 2021-03-07 17:55 | P.PN ---
Subjective Progress Note Date: 03/07/21 Principal diagnosis: Acute CHF This is a 70-year-old white male who had gained about 20 pounds in the last 2 months and was admitted Tuesday for appropriate CHF. The patient is now seen stabilizing after significant diuresis. He feels much better. This appearance is less boggy and edematous. The patient is now status post endoscopy which showed ulceration. Anemia is stabilizing. 03/07/2021 Patient is currently lying in the bed. Awake alert oriented 3. Tolerating oral diet. EGD showed gastric ulcers. Patient is being continued on Protonix twice daily and start back on anticoagulation with Coumadin due to atrial fibrillation. Still having bilateral lower extremity swelling and chronic venostasis changes and scaling. Patient is being continued on Lasix 40 mg twice daily, Coreg and digoxin and other blood pressure medications and also on metolazone. Potassium and magnesium is being replaced. Laboratory data showed WBC 5.8 hemoglobin 9.7 and platelets 164 iron MCV 78.0 Sodium 138 potassium 3.4 chloride 95 BUN 65 and creatinine 1.61 Objective - Vital Signs Vital signs: Vital Signs Temp 98.3 F 03/07/21 14:00 Pulse 78 03/07/21 14:00 Resp 17 03/07/21 14:00 BP 99/58 03/07/21 14:00 Pulse Ox 94 L 03/07/21 14:00 Intake & Output 03/06/21 03/07/21 03/07/21 18:59 06:59 18:59 Intake Total 480 Output Total 900 1350 Balance -900 -1350 480 Weight 109 kg Intake: Oral 480 Output: Urine 900 1350 Other: Voiding Method Diaper External Catheter - Exam PHYSICAL EXAMINATION: Patient is lying in the bed comfortably, no acute distress, awake alert and oriented.. HEENT: Normocephalic. Neck is supple. Pupils reactive. Nostrils clear. Oral cavity is moist. Neck reveals no JVD, carotid bruits, or thyromegaly. CHEST EXAMINATION: Trachea is central. Symmetrical expansion. Bibasilar dimi nished sounds. CARDIAC: Normal S1, S2 with no gallops. No murmurs ABDOMEN: Soft. Bowel sounds normal. No organomegaly. No abdominal bruits. Extremities: Bilateral lower extremity swelling 3+, dry and scaly skin changes.. No clubbing or cyanosis Neurologically awake, alert, oriented x3 with well-coordinated movements. No focal deficits noted Skin: No rash or skin lesions. Psychiatric: Coperative. Nonsuicidal Musculoskeletal: No joint swelling or deformity. Normal range of motion. - Labs CBC & Chem 7: 03/07/21 10:29 03/07/21 10:29 Labs: Abnormal Lab Results - Last 24 Hours (Table) 03/07/21 03/07/21 03/07/21 Range/Units 06:08 10:29 10:29 RBC 4.23 L (4.30-5.90) m/uL Hgb 9.7 L D (13.0-17.5) gm/dL Hct 33.0 L (39.0-53.0) % MCV 78.0 L (80.0-100.0) fL MCH 23.0 L (25.0-35.0) pg MCHC 29.4 L (31.0-37.0) g/dL RDW 18.3 H (11.5-15.5) % PT 12.3 H (9.0-12.0) sec INR 1.2 H (<1.2) Potassium 3.4 L (3.5-5.1) mmol/L Chloride 95 L (98-107) mmol/L Carbon Dioxide 34 H (22-30) mmol/L BUN 65 H (9-20) mg/dL Creatinine 1.61 H (0.66-1.25) mg/dL Glucose 165 H (74-99) mg/dL Assessment and Plan Assessment: Acute on chronic CHF with systolic dysfunction Acute blood loss anemia with chronic anticoagulant use.Gastric ulcers status post EGD Paroxysmal atrial fibrillation on anticoagulant with Coumadin Chronic venous hypertension and with ulcer and inflammation of bilateral lower extremity Generalized weakness Obesity with BMI 34.5 COPD Microcytic anemia. Rule out iron deficiency Plan: Patient will be continued on Protonix 40 mg twice daily and monitor H&H. Continue with Lasix 40 g twice daily and metolazone. Continue the wound care. Advanced as tolerated. Gen. surgery signed operative. Continue to follow closely and possible discharge Time with Patient: Greater than 30
[2021-03-07] MEDS ORDERED: WARFARIN 5 MG TAB PO ONE (18:00)
[2021-03-07] MEDS: allopurinoL 300 MG TAB PO SCH (20:18)
[2021-03-07] MEDS: MAGNESIUM OXIDE 400 MG TAB PO SCH (20:18)
[2021-03-07 22:43] LABS: Glucose,Whole Blood 170 mg/dL (75-99)
[2021-03-07 23:03] LABS: ALT 15 U/L (4-49); AST 29 U/L (17-59); African American GFR (CKD) 40 (>60 ml/min/1.73 sqM); Albumin 3.3 g/dL (3.5-5.0); Albumin/Globulin Ratio 0.9; Alkaline Phosphatase 141 U/L (38-126); Anion Gap 11 mmol/L; Blood Urea Nitrogen 68 mg/dL (9-20); Calcium 8.6 mg/dL (8.4-10.2); Carbon Dioxide 29 mmol/L (22-30); Chloride 96 mmol/L (98-107); Globulin 3.8 g/dL; Glucose 199 mg/dL (74-99); Magnesium 1.8 mg/dL (1.6-2.3); Non-African American GFR(CKD) 35 (>60 ml/min/1.73 sqM); Potassium 3.9 mmol/L (3.5-5.1); Sodium 136 mmol/L (137-145); Total Bilirubin 1.3 mg/dL (0.2-1.3); Total Protein 7.1 g/dL (6.3-8.2)
--- NOTE | 2021-03-07 23:14 | P.EN ---
A team note Activated at 10:30 pm. Arrived on the scene shortly after. Reviewed the chart and discussed the case the RN. The patient had gotten out of bed to the bedside commode with assistance when he lost consciousness while having a bowel movement. The patient's vitals were 70/44, pulse 68, SpO2 90% on room air, and a blood glucose of 170. There was also moderate amount of bleeding noted from the right leg. The patient was moved into the bed, after which his vitals likely improved and he regained consciousness. He reported feeling "okay" and denied active complaints aside from remembering that he felt blood dripping down his leg prior to losing consciousness. He denied chest discomfort, shortness of breath, nausea, vomiting, diaphoresis. He also denied fever, chills, cough. Denied weakness, numbness, tingling. Vital signs at the time of my evaluation were BP 119/68, pulse 69, and SpO2 94% on 2 L. General: Non-toxic, in no acute distress, appears older than stated age, normal weight HEENT: NC/AT, anicteric sclerae, moist conjunctiva, no lid-lag, PERRLA Cardiovascular: S1/S2 wnl, no murmurs, rubs, or gallops Lungs: Clear to auscultation, normal respiratory effort, no accessory muscle use Abdominal: Soft, non-tender, non-distended, no guarding, rebound, or rigidity Skin: Warm, dry Extremities: Right lower extremity lateral very large hematoma noted with losing, no edema or contractures Psychiatric: Alert and oriented to person, place and time, appropriate affect Neuro: CN II-XII grossly intact, Strength 4/5 in all 4 extremities, Speech intact, Sensation to light touch grossly intact throughout Assessment/plan Syncope, likely vasovagal in setting of bowel movement with bleeding from right leg hematoma -Stat blood work ordered including CBC -Advised RN regarding strict bedrest -Continue to raise RLE -Recommend discontinuation of Coumadin at this time -No blood was noted in the patient's bowel movement -Surgery service and primary team notified by the RN -Fall precautions Total time spent providing critical care for this patient: Greater than 30 minutes
[2021-03-07 23:24] LABS: Anisocytosis Slight; Basophils % (A) 1 %; Eosinophils # (A) 0.6 k/uL (0-0.7); Eosinophils % (A) 7 %; HGB 9.7 gm/dL (13.0-17.5); Hypochromasia Marked; Lymphocytes # (A) 1.4 k/uL (1.0-4.8); Lymphocytes % (A) 17 %; MCH 22.9 pg (25.0-35.0); MCHC 29.5 g/dL (31.0-37.0); MCV 77.8 fL (80.0-100.0); Mean Platelet Volume 7.5; Microcytosis Slight; Monocytes # (A) 0.5 k/uL (0-1.0); Monocytes % (A) 6 %; Neutrophils # (A) 5.4 k/uL (1.3-7.7); Neutrophils % (A) 67 %; Platelet Count 227 k/uL (150-450); Poikilocytosis Slight; RBC 4.25 m/uL (4.30-5.90); RDW 18.5 % (11.5-15.5); WBC 8.1 k/uL (3.8-10.6)
[2021-03-08] MEDS: IPRATROPIUM-ALBUTEROL 3 ML NEB INHALATION SCH ×3 (07:36→21:02)
[2021-03-08] MEDS: TAMSULOSIN 0.4 MG CAP.ER.24H PO SCH (07:44)
[2021-03-08] MEDS: metOLazone 5 MG TAB PO SCH (07:45)
[2021-03-08] MEDS: lisinopriL 20 MG TAB PO SCH (07:45)
[2021-03-08] MEDS: SIMETHICONE 40 MG/0.6 ML DROPS 2,000 MG/30 ML BOTTLE PO SCH ×4 (07:45→21:23)
[2021-03-08] MEDS: carvediloL 12.5 MG TAB PO SCH ×2 (07:45→16:45)
[2021-03-08] MEDS: PANTOPRAZOLE 40 MG TABLET PO SCH ×2 (07:45→16:45)
[2021-03-08] MEDS: DIGOXIN 125 MCG TAB PO SCH (07:45)
[2021-03-08] MEDS: FUROSEMIDE 40 MG TAB PO SCH ×2 (07:45→16:45)
[2021-03-08] MEDS: POTASSIUM CHLORIDE ER 20 MEQ TAB.ER PO SCH ×2 (07:45→16:45)
[2021-03-08] MEDS: ISOSORBIDE MONONITRATE ER 30 MG TAB.ER.24H PO SCH (07:45)
[2021-03-08 08:13] LABS: INR 1.2 (<1.2); Prothrombin Time 12.8 sec (9.0-12.0)
--- NOTE | 2021-03-08 09:37 | P.PN ---
Subjective Progress Note Date: 03/08/21 Principal diagnosis: Right leg wounds Patient was started back on his Coumadin yesterday. Yesterday evening the patient's nursing staff noticed a hematoma beneath one of the wounds on the right lateral aspect of his leg. During the night this wound broke open with some bleeding. Patient became vasovagal and temporarily unresponsive. A team was called. Patient doing better at this time. Mild leg discomfort. Objective - Vital Signs Vital signs: Vital Signs Temp 97.5 F L 03/08/21 07:52 Pulse 73 03/08/21 07:52 Resp 18 03/08/21 08:00 BP 134/72 03/08/21 07:52 Pulse Ox 100 03/08/21 07:52 Intake & Output 03/07/21 03/08/21 03/08/21 18:59 06:59 18:59 Intake Total 480 Output Total 1000 Balance 480 -1000 Weight 107 kg Intake: Oral 480 Output: Urine 1000 Other: Voiding Method Diaper External Catheter External Catheter External Catheter - Exam Right lower extremity with venous stasis changes, multiple wounds involving the lower extremity, hematoma present beneath a thin area of skin laterally, no active bleeding - Labs CBC & Chem 7: 03/07/21 22:41 03/07/21 22:41 Labs: Abnormal Lab Results - Last 24 Hours (Table) 03/07/21 03/07/21 03/07/21 Range/Units 10:29 10:29 22:27 RBC 4.23 L (4.30-5.90) m/uL Hgb 9.7 L D (13.0-17.5) gm/dL Hct 33.0 L (39.0-53.0) % MCV 78.0 L (80.0-100.0) fL MCH 23.0 L (25.0-35.0) pg MCHC 29.4 L (31.0-37.0) g/dL RDW 18.3 H (11.5-15.5) % PT (9.0-12.0) sec INR (<1.2) Sodium (137-145) mmol/L Potassium 3.4 L (3.5-5.1) mmol/L Chloride 95 L (98-107) mmol/L Carbon Dioxide 34 H (22-30) mmol/L BUN 65 H (9-20) mg/dL Creatinine 1.61 H (0.66-1.25) mg/dL Glucose 165 H (74-99) mg/dL POC Glucose (mg/dL) 170 H (75-99) mg/dL Plasma Lactic Acid Tavares (0.7-2.0) mmol/L Alkaline Phosphatase (38-126) U/L Albumin (3.5-5.0) g/dL 03/07/21 03/07/21 03/07/21 Range/Units 22:41 22:41 22:41 RBC 4.25 L (4.30-5.90) m/uL Hgb 9.7 L (13.0-17.5) gm/dL Hct 33.0 L (39.0-53.0) % MCV 77.8 L (80.0-100.0) fL MCH 22.9 L (25.0-35.0) pg MCHC 29.5 L (31.0-37.0) g/dL RDW 18.5 H (11.5-15.5) % PT (9.0-12.0) sec INR (<1.2) Sodium 136 L (137-145) mmol/L Potassium (3.5-5.1) mmol/L Chloride 96 L (98-107) mmol/L Carbon Dioxide (22-30) mmol/L BUN 68 H (9-20) mg/dL Creatinine 1.94 H (0.66-1.25) mg/dL Glucose 199 H (74-99) mg/dL POC Glucose (mg/dL) (75-99) mg/dL Plasma Lactic Acid Tavares 2.4 H* (0.7-2.0) mmol/L Alkaline Phosphatase 141 H (38-126) U/L Albumin 3.3 L (3.5-5.0) g/dL 03/08/21 Range/Units 07:41 RBC (4.30-5.90) m/uL Hgb (13.0-17.5) gm/dL Hct (39.0-53.0) % MCV (80.0-100.0) fL MCH (25.0-35.0) pg MCHC (31.0-37.0) g/dL RDW (11.5-15.5) % PT 12.8 H (9.0-12.0) sec INR 1.2 H (<1.2) Sodium (137-145) mmol/L Potassium (3.5-5.1) mmol/L Chloride (98-107) mmol/L Carbon Dioxide (22-30) mmol/L BUN (9-20) mg/dL Creatinine (0.66-1.25) mg/dL Glucose (74-99) mg/dL POC Glucose (mg/dL) (75-99) mg/dL Plasma Lactic Acid Tavares (0.7-2.0) mmol/L Alkaline Phosphatase (38-126) U/L Albumin (3.5-5.0) g/dL Assessment and Plan (1) Hematoma of leg Narrative/Plan: Continue local wound care. Patient may require debridement. Hold Coumadin for now. Will follow. Current Visit: No Status: Acute Code(s): S80.10XA - CONTUSION OF UNSPECIFIED LOWER LEG, INITIAL ENCOUNTER SNOMED Code(s): 671626248
[2021-03-08 12:29] LABS: Basophils # (A) 0.04 X 10*3/uL (0.00-0.10); Basophils % (A) 0.6 %; Eosinophils # (A) 0.42 X 10*3/uL (0.04-0.35); Eosinophils % (A) 6.3 %; HCT 32.9 % (39.6-50.0); HGB 8.8 g/dL (13.0-17.0); Lymphocytes # (A) 1.04 X 10*3/uL (0.90-5.00); Lymphocytes % (A) 15.6 %; MCH 21.5 pg (27.0-32.0); MCHC 26.7 g/dL (32.0-37.0); MCV 80.2 fL (80.0-97.0); Mean Platelet Volume 11.2 fL (9.5-12.2); Monocytes # (A) 0.78 X 10*3/uL (0.20-1.00); Monocytes % (A) 11.7 %; Neutrophils # (A) 4.35 X 10*3/uL (1.80-7.70); Neutrophils % (A) 65.3 %; Platelet Count 173 X 10*3/uL (140-440); WBC 6.66 X 10*3/uL (4.50-10.00)
[2021-03-08 13:42] LABS: % Iron Saturation 2.58 (15.00-50.00); Anion Gap 10.2 mmol/L (4.00-12.00); BUN/Creat Ratio 41.18 Ratio (12.00-20.00); Calcium 8.5 mg/dL (8.7-10.3); Carbon Dioxide 30.8 mmol/L (21.6-31.8); Non-African American GFR(CKD) 40.5 (60.0-200.0)
[2021-03-08] MEDS: HYDROcodone/APAP 5-325MG 1 EACH TAB PO PRN (14:51)
[2021-03-08] MEDS: MAGNESIUM OXIDE 400 MG TAB PO SCH (21:23)
[2021-03-08] MEDS: allopurinoL 300 MG TAB PO SCH (21:23)
--- NOTE | 2021-03-09 00:51 | P.PN ---
Subjective Progress Note Date: 03/08/21 Principal diagnosis: Acute CHF This is a 70-year-old white male who had gained about 20 pounds in the last 2 months and was admitted Tuesday for appropriate CHF. The patient is now seen stabilizing after significant diuresis. He feels much better. This appearance is less boggy and edematous. The patient is now status post endoscopy which showed ulceration. Anemia is stabilizing. 03/07/2021 Patient is currently lying in the bed. Awake alert oriented 3. Tolerating oral diet. EGD showed gastric ulcers. Patient is being continued on Protonix twice daily and start back on anticoagulation with Coumadin due to atrial fibrillation. Still having bilateral lower extremity swelling and chronic venostasis changes and scaling. Patient is being continued on Lasix 40 mg twice daily, Coreg and digoxin and other blood pressure medications and also on metolazone. Potassium and magnesium is being replaced. Laboratory data showed WBC 5.8 hemoglobin 9.7 and platelets 164 iron MCV 78.0 Sodium 138 potassium 3.4 chloride 95 BUN 65 and creatinine 1.61 03/08/2021 Patient is currently resting in the bed comfortably. No complaints of chest pain or shortness of. Overnight patient was on the commode and suddenly became unresponsive. Possible vasovagal is being considered and patient regained consciousness immediately. Rapid response team was called. Patient was also noted to have ruptured hematoma on the lower extremity and general surgery is planning for debridement tomorrow. Coumadin will be on hold. Patient is afebrile. No cough or sputum production. No nausea vomiting abdominal pain or diarrhea. Laboratory data showed WBC 6.6 hemoglobin 8.8 and INR 1.2 platelets 173 BUN 70 and creatinine 1.7 Iron saturation level is 2.54 8 and TIBC 310 suggestive of, iron deficiency. Active Medications Generic Name Dose Route Start Last Admin Trade Name Freq PRN Reason Stop Dose Admin Hydrocodone Bitart/Acetaminophen 1 each 02/27/21 20:47 03/08/21 14:51 Hydrocodone/Apap 5-325mg 1 Each Tab PO 1 each Q6HR PRN Administration Pain Albuterol/Ipratropium 3 ml 02/28/21 20:00 03/08/21 21:02 Ipratropium-Albuterol 3 Ml Neb INHALATION 3 ml RT-TID JULIEN Administration Albuterol/Ipratropium 3 ml 02/28/21 17:29 Ipratropium-Albuterol 3 Ml Neb INHALATION RT-TID PRN Shortness Of Breath Or Wheezing Allopurinol 300 mg 02/27/21 21:00 03/08/21 21:23 Allopurinol 300 Mg Tab PO 300 mg HS JULIEN Administration Carvedilol 25 mg 02/28/21 07:30 03/08/21 16:45 Carvedilol 12.5 Mg Tab PO 25 mg BID-W/MEALS JULIEN Administration Digoxin 125 mcg 02/28/21 09:00 03/08/21 07:45 Digoxin 125 Mcg Tab PO 125 mcg DAILY JULIEN Administration Furosemide 40 mg 03/04/21 16:00 03/08/21 16:45 Furosemide 40 Mg Tab PO 40 mg BID@0900,1600 JULIEN Administration Isosorbide Mononitrate 30 mg 02/28/21 09:00 03/08/21 07:45 Isosorbide Mononitrate Er 30 Mg Tab.Er.24h PO 30 mg DAILY JULIEN Administration Lisinopril 20 mg 02/28/21 09:00 03/08/21 07:45 Lisinopril 20 Mg Tab PO 20 mg DAILY JULIEN Administration Magnesium Oxide 400 mg 02/28/21 21:00 03/08/21 21:23 Magnesium Oxide 400 Mg Tab PO 400 mg HS JULIEN Administration Metolazone 5 mg 03/01/21 09:00 03/08/21 07:45 Metolazone 5 Mg Tab PO 5 mg DAILY JULIEN Administration Miscellaneous Information 1 each 03/04/21 18:49 Potassium Replacement Protocol 1 Each Misc MISCELLANE DAILY PRN Per Protocol Protocol Pantoprazole Sodium 40 mg 03/02/21 17:30 03/08/21 16:45 Pantoprazole 40 Mg Tablet PO 40 mg AC-BID JULIEN Administration Potassium Chloride 20 meq 02/28/21 17:30 03/08/21 16:45 Potassium Chloride Er 20 Meq Tab.Er PO 20 meq BID-W/MEALS JULIEN Administration Silver Sulfadiazine 1 applic 03/01/21 09:00 03/08/21 07:46 Silver Sulfadiazine 1% Cream 25 Gm Tube TOPICAL 1 applic DAILY JULIEN Administration Protocol Simethicone 100 mg 03/03/21 09:00 03/08/21 21:23 Simethicone 40 Mg/0.6 Ml Drops 2,000 Mg/30 Ml Bottle PO 100 mg QID JULIEN Administration Tamsulosin HCl 0.8 mg 02/28/21 09:00 03/08/21 07:44 Tamsulosin 0.4 Mg Cap.Er.24h PO 0.8 mg DAILY JULIEN Administration Objective - Vital Signs Vital signs: Vital Signs Temp 98.5 F 03/08/21 19:56 Pulse 80 03/08/21 21:02 Resp 16 03/08/21 19:56 BP 110/58 03/08/21 19:56 Pulse Ox 99 03/08/21 19:56 Intake & Output 03/08/21 03/08/21 03/09/21 06:59 18:59 06:59 Output Total 1000 1040 Balance -1000 -1040 Weight 107 kg Output: Urine 1000 1040 Other: Voiding Method External Catheter External Catheter - Exam PHYSICAL EXAMINATION: Patient is lying in the bed comfortably, no acute distress, awake alert and oriented.. HEENT: Normocephalic. Neck is supple. Pupils reactive. Nostrils clear. Oral cavity is moist. Neck reveals no JVD, carotid bruits, or thyromegaly. CHEST EXAMINATION: Trachea is central. Symmetrical expansion. Bibasilar diminished sounds. CARDIAC: Normal S1, S2 with no gallops. No murmurs ABDOMEN: Soft. Bowel sounds normal. No organomegaly. No abdominal bruits. Extremities: Bilateral lower extremity swelling 3+, dry and scaly skin changes.. No clubbing or cyanosis Neurologically awake, alert, oriented x3 with well-coordinated movements. No focal deficits noted Skin: No rash or skin lesions. Psychiatric: Coperative. Nonsuicidal Musculoskeletal: No joint swelling or deformity. Normal range of motion. - Labs CBC & Chem 7: 03/08/21 07:41 03/08/21 07:41 Labs: Abnormal Lab Results - Last 24 Hours (Table) 03/07/21 03/07/21 03/07/21 Range/Units 22:27 22:41 22:41 RBC 4.25 L (4.30-5.90) m/uL Hgb 9.7 L (13.0-17.5) gm/dL Hct 33.0 L (39.0-53.0) % MCV 77.8 L (80.0-100.0) fL MCH 22.9 L (25.0-35.0) pg MCHC 29.5 L (31.0-37.0) g/dL RDW 18.5 H (11.5-15.5) % Eosinophils # (0.04-0.35) X 10*3/uL PT (9.0-12.0) sec INR (<1.2) Sodium 136 L (137-145) mmol/L Chloride 96 L (98-107) mmol/L BUN 68 H (9-20) mg/dL Creatinine 1.94 H (0.66-1.25) mg/dL Est GFR (CKD-EPI)AfAm (60.0-200.0) Est GFR (CKD-EPI)NonAf (60.0-200.0) BUN/Creatinine Ratio (12.00-20.00) Ratio Glucose 199 H (74-99) mg/dL POC Glucose (mg/dL) 170 H (75-99) mg/dL Plasma Lactic Acid Tavares (0.7-2.0) mmol/L Calcium (8.7-10.3) mg/dL Iron (65-175) ug/dL % Saturation (15.00-50.00) Alkaline Phosphatase 141 H (38-126) U/L Albumin 3.3 L (3.5-5.0) g/dL 03/07/21 03/08/21 03/08/21 Range/Units 22:41 07:41 07:41 RBC 4.10 L (4.30-5.90) m/uL Hgb 8.8 L (13.0-17.5) gm/dL Hct 32.9 L (39.0-53.0) % MCV (80.0-100.0) fL MCH 21.5 L (25.0-35.0) pg MCHC 26.7 L (31.0-37.0) g/dL RDW 19.0 H (11.5-15.5) % Eosinophils # 0.42 H (0.04-0.35) X 10*3/uL PT 12.8 H (9.0-12.0) sec INR 1.2 H (<1.2) Sodium (137-145) mmol/L Chloride (98-107) mmol/L BUN (9-20) mg/dL Creatinine (0.66-1.25) mg/dL Est GFR (CKD-EPI)AfAm (60.0-200.0) Est GFR (CKD-EPI)NonAf (60.0-200.0) BUN/Creatinine Ratio (12.00-20.00) Ratio Glucose (74-99) mg/dL POC Glucose (mg/dL) (75-99) mg/dL Plasma Lactic Acid Tavares 2.4 H* (0.7-2.0) mmol/L Calcium (8.7-10.3) mg/dL Iron (65-175) ug/dL % Saturation (15.00-50.00) Alkaline Phosphatase (38-126) U/L Albumin (3.5-5.0) g/dL 03/08/21 Range/Units 07:41 RBC (4.30-5.90) m/uL Hgb (13.0-17.5) gm/dL Hct (39.0-53.0) % MCV (80.0-100.0) fL MCH (25.0-35.0) pg MCHC (31.0-37.0) g/dL RDW (11.5-15.5) % Eosinophils # (0.04-0.35) X 10*3/uL PT (9.0-12.0) sec INR (<1.2) Sodium (137-145) mmol/L Chloride (98-107) mmol/L BUN 70.0 H (9-20) mg/dL Creatinine 1.7 H (0.66-1.25) mg/dL Est GFR (CKD-EPI)AfAm 47.0 L (60.0-200.0) Est GFR (CKD-EPI)NonAf 40.5 L (60.0-200.0) BUN/Creatinine Ratio 41.18 H (12.00-20.00) Ratio Glucose 137 H (74-99) mg/dL POC Glucose (mg/dL) (75-99) mg/dL Plasma Lactic Acid Tavares (0.7-2.0) mmol/L Calcium 8.5 L (8.7-10.3) mg/dL Iron 8 L (65-175) ug/dL % Saturation 2.58 L (15.00-50.00) Alkaline Phosphatase (38-126) U/L Albumin (3.5-5.0) g/dL Assessment and Plan Assessment: Acute on chronic CHF with systolic dysfunction Acute blood loss anemia with chronic anticoagulant use.Gastric ulcers status post EGD Paroxysmal atrial fibrillation on anticoagulant with Coumadin Chronic venous hypertension and with ulcer and inflammation of bilateral lower extremity Generalized weakness Obesity with BMI 34.5 COPD Microcytic anemia. Rule out iron deficiency Plan: Patient will be continued on Protonix 40 mg twice daily and monitor H&H. Continue with Lasix 40 g twice daily and metolazone. Continue the wound care. General surgery is planning for debridement of the lower extremity wound. Advanced as tolerated. Gen. surgery signed operative. Continue to follow closely and possible discharge Time with Patient: Greater than 30
[2021-03-09 06:45] LABS: INR 1.2 (<1.2); Prothrombin Time 12.4 sec (9.0-12.0)
[2021-03-09] MEDS: IPRATROPIUM-ALBUTEROL 3 ML NEB INHALATION SCH ×3 (08:13→20:04)
[2021-03-09] MEDS: FUROSEMIDE 40 MG TAB PO SCH ×2 (08:20→16:14)
[2021-03-09] MEDS: metOLazone 5 MG TAB PO SCH (08:20)
[2021-03-09] MEDS: lisinopriL 20 MG TAB PO SCH (08:20)
[2021-03-09] MEDS: DIGOXIN 125 MCG TAB PO SCH (08:20)
[2021-03-09] MEDS: PANTOPRAZOLE 40 MG TABLET PO SCH ×2 (08:20→16:13)
[2021-03-09] MEDS: POTASSIUM CHLORIDE ER 20 MEQ TAB.ER PO SCH ×2 (08:20→16:14)
[2021-03-09] MEDS: ISOSORBIDE MONONITRATE ER 30 MG TAB.ER.24H PO SCH (08:20)
[2021-03-09] MEDS: TAMSULOSIN 0.4 MG CAP.ER.24H PO SCH (08:20)
[2021-03-09] MEDS: carvediloL 12.5 MG TAB PO SCH ×2 (08:20→16:13)
[2021-03-09] MEDS: SIMETHICONE 40 MG/0.6 ML DROPS 2,000 MG/30 ML BOTTLE PO SCH ×4 (08:21→21:14)
[2021-03-09] MEDS: SODIUM FERRIC GLUCONAT-SUCROSE 125 MG in SODIUM CHLORIDE 0.9% 100 ML IVPB SCH (09:37)
--- NOTE | 2021-03-09 11:24 | P.PN ---
Subjective Progress Note Date: 03/09/21 CHIEF COMPLAINT: Right leg wound HISTORY OF PRESENT ILLNESS: Patient is seen and examined. He has a dressing to the right lower extremity which the nursing reinforce. Patient had hematoma beneath the right leg, it continues to bleed. Patient overall is doing well. He denies any signs or symptoms of GI bleed. Has mild discomfort in bilateral lower extremities. Wound care management is on consult. PHYSICAL EXAM: VITAL SIGNS: Reviewed. GENERAL: Well-developed in no acute distress. HEENT: No sclera icterus. Extraocular movements grossly intact. Moist buccal mucosa. Head is atraumatic, normocephalic. ABDOMEN: Soft. Nondistended. Nontender. NEUROLOGIC: Alert and oriented. Cranial nerves II through XII grossly intact. ASSESSMENT: 1. Hematoma of leg PLAN: -Continue local wound care -Consider vascular surgical consult, patient known to Dr. Carney The impression and plan of care has been dictated as directed. Dr. Hutton I performed a history and examination of this patient, discussed the same with the dictator. I agree with the dictator's note ,documented as a scribe. Any additional findings or plans will be noted. Objective - Vital Signs Vital signs: Vital Signs Temp 97.9 F 03/09/21 08:00 Pulse 76 03/09/21 08:27 Resp 18 03/09/21 08:00 BP 167/89 03/09/21 08:00 Pulse Ox 94 L 03/09/21 08:15 Intake & Output 03/08/21 03/09/21 03/09/21 18:59 06:59 18:59 Output Total 1040 1200 Balance -1040 -1200 Weight 107 kg Output: Urine 1040 1200 Other: Voiding Method External Catheter External Catheter - Labs CBC & Chem 7: 03/09/21 06:02 03/08/21 07:41 Labs: Abnormal Lab Results - Last 24 Hours (Table) 03/08/21 03/08/21 03/09/21 Range/Units 07:41 07:41 06:02 RBC 4.10 L (4.40-5.60) X 10*6/uL Hgb 8.8 L (13.0-17.0) g/dL Hct 32.9 L (39.6-50.0) % MCH 21.5 L (27.0-32.0) pg MCHC 26.7 L (32.0-37.0) g/dL RDW 19.0 H (11.5-14.5) % Eosinophils # 0.42 H (0.04-0.35) X 10*3/uL PT 12.4 H (9.0-12.0) sec INR 1.2 H (<1.2) BUN 70.0 H (9.0-27.0) mg/dL Creatinine 1.7 H (0.6-1.5) mg/dL Est GFR (CKD-EPI)AfAm 47.0 L (60.0-200.0) Est GFR (CKD-EPI)NonAf 40.5 L (60.0-200.0) BUN/Creatinine Ratio 41.18 H (12.00-20.00) Ratio Glucose 137 H (70-110) mg/dL Calcium 8.5 L (8.7-10.3) mg/dL Iron 8 L (65-175) ug/dL % Saturation 2.58 L (15.00-50.00)
[2021-03-09 12:35] LABS: Basophils # (A) 0.03 X 10*3/uL (0.00-0.10); Basophils % (A) 0.4 %; Eosinophils # (A) 0.51 X 10*3/uL (0.04-0.35); Eosinophils % (A) 6.9 %; HCT 32.7 % (39.6-50.0); HGB 8.7 g/dL (13.0-17.0); Lymphocytes # (A) 1.16 X 10*3/uL (0.90-5.00); Lymphocytes % (A) 15.6 %; MCH 21.7 pg (27.0-32.0); MCHC 26.6 g/dL (32.0-37.0); MCV 81.5 fL (80.0-97.0); Monocytes # (A) 0.76 X 10*3/uL (0.20-1.00); Monocytes % (A) 10.2 %; Neutrophils # (A) 4.93 X 10*3/uL (1.80-7.70); Neutrophils % (A) 66.4 %; Platelet Count 196 X 10*3/uL (140-440); RBC 4.01 X 10*6/uL (4.40-5.60); RDW 19.3 % (11.5-14.5); WBC 7.43 X 10*3/uL (4.50-10.00)
--- NOTE | 2021-03-09 12:57 | P.PN ---
Subjective Principal diagnosis: Congestive heart failure with ulcer ggastric. This is a Continuing progress note on a 70-year-old white male who is essentially admitted relative to congestive heart failure but developed anemia of acute blood loss. Upper GI's showed significant gastric ulceration. Now he has developed hematoma on the right lower extremity which has been easily friable and having significant blood loss. Coumadin has been discontinued temporarily.. Objective - Vital Signs Vital signs: Vital Signs Temp 97.9 F 03/09/21 08:00 Pulse 80 03/09/21 12:04 Resp 18 03/09/21 08:00 BP 167/89 03/09/21 08:00 Pulse Ox 94 L 03/09/21 08:15 Intake & Output 03/08/21 03/09/21 03/09/21 18:59 06:59 18:59 Output Total 1040 1200 Balance -1040 -1200 Weight 107 kg Output: Urine 1040 1200 Other: Voiding Method External Catheter External Catheter External Catheter - Constitutional General appearance: Present: obese - EENT Eyes: Absent: abnormal pupil - Neck Neck: Absent: lymphadenopathy - Respiratory Respiratory: bilateral: diminished - Cardiovascular Rhythm: irregularly irregular Heart sounds: normal: S1, S2 Abnormal Heart Sounds: Absent: S3 Gallop - Gastrointestinal General gastrointestinal: Present: soft. Absent: tenderness - Integumentary Integumentary Comment(s): Hematoma of the right lower extremity - Musculoskeletal Musculoskeletal: Present: generalized weakness - Psychiatric Psychiatric: Present: A&O x's 3 - Labs CBC & Chem 7: 03/09/21 06:02 03/08/21 07:41 Labs: Abnormal Lab Results - Last 24 Hours (Table) 03/08/21 03/09/21 03/09/21 Range/Units 07:41 06:02 06:02 RBC 4.01 L (4.40-5.60) X 10*6/uL Hgb 8.7 L (13.0-17.0) g/dL Hct 32.7 L (39.6-50.0) % MCH 21.7 L (27.0-32.0) pg MCHC 26.6 L (32.0-37.0) g/dL RDW 19.3 H (11.5-14.5) % Eosinophils # 0.51 H (0.04-0.35) X 10*3/uL PT 12.4 H (9.0-12.0) sec INR 1.2 H (<1.2) BUN 70.0 H (9.0-27.0) mg/dL Creatinine 1.7 H (0.6-1.5) mg/dL Est GFR (CKD-EPI)AfAm 47.0 L (60.0-200.0) Est GFR (CKD-EPI)NonAf 40.5 L (60.0-200.0) BUN/Creatinine Ratio 41.18 H (12.00-20.00) Ratio Glucose 137 H (70-110) mg/dL Calcium 8.5 L (8.7-10.3) mg/dL Iron 8 L (65-175) ug/dL % Saturation 2.58 L (15.00-50.00) Assessment and Plan (1) Acute on chronic systolic CHF (congestive heart failure) Current Visit: Yes Status: Acute Code(s): I50.23 - ACUTE ON CHRONIC SYSTOLIC (CONGESTIVE) HEART FAILURE SNOMED Code(s): 346441215 (2) Atrial fibrillation Current Visit: No Status: Acute Code(s): I48.91 - UNSPECIFIED ATRIAL FIBRILLATION SNOMED Code(s): 57805002 (3) Chronic venous hypertension (idiopathic) with ulcer and inflammation of bilateral lower extremity Current Visit: No Status: Acute Code(s): I87.333 - CHRONIC VENOUS HTN W ULCER AND INFLAM OF BILATERAL LOW EXTRM; L97.919 - NON-PRS CHRONIC ULC UNSP PRT OF R LOW LEG W UNSP SEVERITY; L97.929 - NON-PRS CHRONIC ULC UNSP PRT OF L LOW LEG W UNSP SEVERITY SNOMED Code(s): 022089611709020 (4) Edema extremities Current Visit: No Status: Acute Code(s): R60.0 - LOCALIZED EDEMA SNOMED Code(s): 618094789 (5) Generalized weakness Current Visit: No Status: Acute Code(s): R53.1 - WEAKNESS SNOMED Code(s): 55599282 Plan: Hold off on discharge for now GI bleeding will be also be monitored. See orders otherwise. Breasts related to hematoma Time with Patient: Greater than 30
[2021-03-09 14:42] LABS: African American GFR (CKD) 41.1 (60.0-200.0); Anion Gap 9.2 mmol/L (4.00-12.00); BUN/Creat Ratio 39.47 Ratio (12.00-20.00); Calcium 8.6 mg/dL (8.7-10.3); Carbon Dioxide 34.8 mmol/L (21.6-31.8); Non-African American GFR(CKD) 35.4 (60.0-200.0); Potassium 3.5 mmol/L (3.5-5.5)
--- NOTE | 2021-03-09 20:24 | P.PN ---
Subjective Progress Note Date: 03/09/21 CHIEF COMPLAINT: Lower extremity wound HISTORY OF PRESENT ILLNESS: The patient is a 70-year-old male with new problem of lower extremity wound. Over the weekend, patient fell and had copious bleeding from his lower extremities. He has chronic lower extremity edema and is seen in a chronic wound care clinic. Per discussion with nursing, pressure dressing being applied. REVIEW OF ORGAN SYSTEMS: No fevers or chills. No nausea or vomiting. No chest pain. PHYSICAL EXAM: VITALS: Reviewed CONSTITUTIONAL: Well developed and in no acute distress. EYES: Conjuctivae without sclera icterus. Extraocular movements grossly intact. HEAD, EARS, NOSE, THROAT: Moist buccal mucosa. Head is atraumatic, no rmocephalic. Hears conversational speech. No nasal drainage. \RESPIRATORY: Non-labored respirations and equal bilateral excursions. No gross wheezes. CARDIOVASCULAR: 2+ radial pulses. ABDOMEN: Soft. No peritonitis. MUSCULOSKELETAL: Bilateral lower extremity wrapped in dressings. Severe venous stasis disease bilateral lower extremities. SKIN: Warm and well perfused with good skin turgor. NEUROLOGIC: Cranial nerves II through XII grossly intact. No focal or lateralizing signs. PSYCH: Appropriate affect. Alert and oriented to person, place and time. Displays appropriate insight. CLINCAL LABS: Reviewed. Hemoglobin stable 8.7-8.8. ASSESSMENT: 1. Bilateral lower extremity venous stasis disease 2. Acute hematoma lower extremity PLAN: 1. Recommend consultation to wound care clinic for chronic wound 2. Apply pressure dressing for leg hematoma Objective - Vital Signs Vital signs: Vital Signs Temp 97.9 F 03/09/21 20:00 Pulse 80 03/09/21 20:12 Resp 19 03/09/21 20:00 BP 93/56 03/09/21 20:00 Pulse Ox 93 L 03/09/21 20:00 Intake & Output 03/09/21 03/09/21 03/10/21 06:59 18:59 06:59 Output Total 1200 1325 Balance -1200 -1325 Weight 107 kg Output: Urine 1200 1325 Other: Voiding Method External Catheter External Catheter - Labs CBC & Chem 7: 03/09/21 06:02 03/09/21 06:02 Labs: Abnormal Lab Results - Last 24 Hours (Table) 09/13/21 09/13/21 09/13/21 Range/Units 06:02 06:02 06:02 RBC 4.01 L (4.40-5.60) X 10*6/uL Hgb 8.7 L (13.0-17.0) g/dL Hct 32.7 L (39.6-50.0) % MCH 21.7 L (27.0-32.0) pg MCHC 26.6 L (32.0-37.0) g/dL RDW 19.3 H (11.5-14.5) % Eosinophils # 0.51 H (0.04-0.35) X 10*3/uL PT 12.4 H (9.0-12.0) sec INR 1.2 H (<1.2) Carbon Dioxide 34.8 H (21.6-31.8) mmol/L BUN 75.0 H (9.0-27.0) mg/dL Creatinine 1.9 H (0.6-1.5) mg/dL Est GFR (CKD-EPI)AfAm 41.1 L (60.0-200.0) Est GFR (CKD-EPI)NonAf 35.4 L (60.0-200.0) BUN/Creatinine Ratio 39.47 H (12.00-20.00) Ratio Glucose 143 H (70-110) mg/dL Calcium 8.6 L (8.7-10.3) mg/dL Assessment and Plan (1) Acute on chronic systolic CHF (congestive heart failure) Current Visit: Yes Status: Acute Code(s): I50.23 - ACUTE ON CHRONIC SYSTOLIC (CONGESTIVE) HEART FAILURE SNOMED Code(s): 072274645 (2) Anemia Current Visit: Yes Status: Acute Code(s): D64.9 - ANEMIA, UNSPECIFIED SNOMED Code(s): 601338776 (3) Bilateral lower extremity edema Current Visit: Yes Status: Acute Code(s): R60.0 - LOCALIZED EDEMA SNOMED Code(s): 184531754 (4) CHF (congestive heart failure) Current Visit: Yes Status: Acute Code(s): I50.9 - HEART FAILURE, UNSPECIFIED SNOMED Code(s): 39189245 (5) Acute exacerbation of chronic obstructive airways disease Current Visit: No Status: Acute Code(s): J44.1 - CHRONIC OBSTRUCTIVE PULMONARY DISEASE W (ACUTE) EXACERBATION SNOMED Code(s): 046129160 (6) Atrial fibrillation Current Visit: No Status: Acute Code(s): I48.91 - UNSPECIFIED ATRIAL FIBRILL ATION SNOMED Code(s): 38583000 (7) Chronic atrial fibrillation Current Visit: No Status: Acute Code(s): I48.2 - CHRONIC ATRIAL FIBRILLATION * DO NOT USE * SNOMED Code(s): 751226276 (8) Dyspnea Current Visit: No Status: Acute Code(s): R06.00 - DYSPNEA, UNSPECIFIED SNOMED Code(s): 619649767 (9) Chronic venous stasis dermatitis of both lower extremities Current Visit: Yes Status: Acute Code(s): I87.2 - VENOUS INSUFFICIENCY (CHR ONIC) (PERIPHERAL) SNOMED Code(s): 64317517
[2021-03-09] MEDS: allopurinoL 300 MG TAB PO SCH (21:11)
[2021-03-09] MEDS: MAGNESIUM OXIDE 400 MG TAB PO SCH (21:11)
[2021-03-09] MEDS: HYDROcodone/APAP 5-325MG 1 EACH TAB PO PRN (21:13)
--- NOTE | 2021-03-09 22:24 | CONS ---
CONSULTATION This is a 70-year-old gentleman, well known to me from the wound clinic. The patient has a history of chronic venostasis ulcers of both lower extremities. The patient has been coming regularly to the wound clinic for local wound care. Patient came with history of congestive heart failure. The patient has a history of atrial fibrillation, on Coumadin. The patient had a trauma to the right lower extremity and had excessive bleeding from the right lateral aspect. Most likely it was venous bleeding which was controlled by pressure dressing. PAST MEDICAL HISTORY: History of atrial fibrillation, congestive heart failure, GI bleed. The patient had an endoscopy done which showed a gastric ulcer. The patient also has a history of chronic venous hypertension. PHYSICAL EXAMINATION: Patient was seen in his room. NECK: Supple. Trachea central. CHEST: A few rhonchi at the lung bases. ABDOMEN: Soft. Femorals are 1+. Patient has chronic venous hypertension of both lower extremities. There is a large hematoma with loss of skin. PLAN: We will arrange for debridement and local wound care. MMODL / IJN: [id number] /
[2021-03-10 07:10] LABS: Anisocytosis Slight; HCT 31.3 % (39.0-53.0); HGB 9.2 gm/dL (13.0-17.5); Hypochromasia Marked; MCH 23.2 pg (25.0-35.0); MCHC 29.4 g/dL (31.0-37.0); MCV 78.8 fL (80.0-100.0); Mean Platelet Volume 8.9; Microcytosis Slight; Platelet Count 193 k/uL (150-450); Poikilocytosis Slight; RBC 3.97 m/uL (4.30-5.90); RDW 18.7 % (11.5-15.5); WBC 6.7 k/uL (3.8-10.6)
[2021-03-10] MEDS: POTASSIUM CHLORIDE ER 20 MEQ TAB.ER PO SCH ×4 (07:12→18:05)
[2021-03-10] MEDS: carvediloL 12.5 MG TAB PO SCH ×2 (07:12→18:05)
[2021-03-10] MEDS: PANTOPRAZOLE 40 MG TABLET PO SCH ×2 (07:12→18:05)
[2021-03-10 07:28] LABS: African American GFR (CKD) 49 (>60 ml/min/1.73 sqM); Anion Gap 8 mmol/L; Blood Urea Nitrogen 77 mg/dL (9-20); Calcium 8.6 mg/dL (8.4-10.2); Carbon Dioxide 36 mmol/L (22-30); Chloride 96 mmol/L (98-107); Glucose 138 mg/dL (74-99); Magnesium 1.5 mg/dL (1.6-2.3); Non-African American GFR(CKD) 42 (>60 ml/min/1.73 sqM); Potassium 3.2 mmol/L (3.5-5.1); Sodium 140 mmol/L (137-145)
[2021-03-10] MEDS: IPRATROPIUM-ALBUTEROL 3 ML NEB INHALATION SCH ×3 (07:55→20:27)
--- NOTE | 2021-03-10 08:39 | P.PN ---
Subjective Principal diagnosis: Congestive heart failure with ulcer ggastric. This is a Continuing progress note on a 70-year-old white male who is essentially admitted relative to congestive heart failure but developed anemia of acute blood loss. Upper GI's showed significant gastric ulceration. Now he has developed hematoma on the right lower extremity which has been easily friable and having significant blood loss. Coumadin has been discontinued temporarily.. The patient has vascular surgery on the case who is handling the hematoma comp location. Objective - Vital Signs Vital signs: Vital Signs Temp 98.4 F 03/10/21 06:53 Pulse 96 03/10/21 08:06 Resp 18 03/10/21 06:53 BP 122/71 03/10/21 06:53 Pulse Ox 95 03/10/21 06:53 Intake & Output 03/09/21 03/10/21 03/10/21 18:59 06:59 18:59 Output Total 1325 1100 Balance -1325 -1100 Weight 107 kg Output: Urine 1325 1100 Other: Voiding Method External Catheter External Catheter - Constitutional General appearance: Present: obese - EENT Eyes: Absent: abnormal pupil - Neck Neck: Absent: lymphadenopathy - Respiratory Respiratory: bilateral: CTA - Cardiovascular Rhythm: irregularly irregular Heart sounds: normal: S1, S2 Abnormal Heart Sounds: Absent: S3 Gallop - Gastrointestinal General gastrointestinal: Present: soft. Absent: tenderness - Integumentary Integumentary Comment(s): Hematoma of the right lower extremity - Psychiatric Psychiatric: Present: A&O x's 3, appropriate affect - Labs CBC & Chem 7: 03/10/21 06:45 03/10/21 06:45 Labs: Abnormal Lab Results - Last 24 Hours (Table) 03/09/21 03/09/21 03/10/21 Range/Units 06:02 06:02 06:45 RBC 4.01 L 3.97 L (4.40-5.60) X 10*6/uL Hgb 8.7 L 9.2 L (13.0-17.0) g/dL Hct 32.7 L 31.3 L (39.6-50.0) % MCV 78.8 L (80.0-100.0) fL MCH 21.7 L 23.2 L (27.0-32.0) pg MCHC 26.6 L 29.4 L (32.0-37.0) g/dL RDW 19.3 H 18.7 H (11.5-14.5) % Eosinophils # 0.51 H (0.04-0.35) X 10*3/uL Potassium (3.5-5.1) mmol/L Chloride (98-107) mmol/L Carbon Dioxide 34.8 H (21.6-31.8) mmol/L BUN 75.0 H (9.0-27.0) mg/dL Creatinine 1.9 H (0.6-1.5) mg/dL Est GFR (CKD-EPI)AfAm 41.1 L (60.0-200.0) Est GFR (CKD-EPI)NonAf 35.4 L (60.0-200.0) BUN/Creatinine Ratio 39.47 H (12.00-20.00) Ratio Glucose 143 H (70-110) mg/dL Calcium 8.6 L (8.7-10.3) mg/dL Magnesium (1.6-2.3) mg/dL 03/10/21 Range/Units 06:45 RBC (4.40-5.60) X 10*6/uL Hgb (13.0-17.0) g/dL Hct (39.6-50.0) % MCV (80.0-100.0) fL MCH (27.0-32.0) pg MCHC (32.0-37.0) g/dL RDW (11.5-14.5) % Eosinophils # (0.04-0.35) X 10*3/uL Potassium 3.2 L (3.5-5.1) mmol/L Chloride 96 L (98-107) mmol/L Carbon Dioxide 36 H (21.6-31.8) mmol/L BUN 77 H (9.0-27.0) mg/dL Creatinine 1.64 H (0.6-1.5) mg/dL Est GFR (CKD-EPI)AfAm (60.0-200.0) Est GFR (CKD-EPI)NonAf (60.0-200.0) BUN/Creatinine Ratio (12.00-20.00) Ratio Glucose 138 H (70-110) mg/dL Calcium (8.7-10.3) mg/dL Magnesium 1.5 L (1.6-2.3) mg/dL Assessment and Plan (1) Acute on chronic systolic CHF (congestive heart failure) Current Visit: Yes Status: Acute Code(s): I50.23 - ACUTE ON CHRONIC SYSTOLIC (CONGESTIVE) HEART FAILURE SNOMED Code(s): 232743477 (2) Atrial fibrillation Current Visit: No Status: Acute Code(s): I48.91 - UNSPECIFIED ATRIAL FIBRILLATION SNOMED Code(s): 75596537 (3) Chronic venous hypertension (idiopathic) with ulcer and inflammation of b ilateral lower extremity Current Visit: No Status: Acute Code(s): I87.333 - CHRONIC VENOUS HTN W ULCER AND INFLAM OF BILATERAL LOW EXTRM; L97.919 - NON-PRS CHRONIC ULC UNSP PRT OF R LOW LEG W UNSP SEVERITY; L97.929 - NON-PRS CHRONIC ULC UNSP PRT OF L LOW LEG W UNSP SEVERITY SNOMED Code(s): 823025720534346 (4) Edema extremities Current Visit: No Status: Acute Code(s): R60.0 - LOCALIZED EDEMA SNOMED Code(s): 195383872 (5) Generalized weakness Current Visit: No Status: Acute Code(s): R53.1 - WEAKNESS SNOMED Code(s): 18771464 Plan: Hold off on discharge for now GI bleeding will be also be monitored. See orders otherwise. Bleeding related to hematoma
[2021-03-10] MEDS ORDERED: Magnesium Replacement Protocol 1 EACH MISC MISCELLANE PRN (08:52)
[2021-03-10] MEDS ORDERED: Potassium Replacement Protocol 1 EACH MISC MISCELLANE PRN ×2 (08:53→12:55)
[2021-03-10] MEDS: FUROSEMIDE 40 MG TAB PO SCH ×2 (09:08→15:30)
[2021-03-10] MEDS: lisinopriL 20 MG TAB PO SCH (09:09)
[2021-03-10] MEDS: DIGOXIN 125 MCG TAB PO SCH (09:09)
[2021-03-10] MEDS: ISOSORBIDE MONONITRATE ER 30 MG TAB.ER.24H PO SCH (09:09)
[2021-03-10] MEDS: SODIUM FERRIC GLUCONAT-SUCROSE 125 MG in SODIUM CHLORIDE 0.9% 100 ML IVPB SCH (09:09)
[2021-03-10] MEDS: TAMSULOSIN 0.4 MG CAP.ER.24H PO SCH (09:09)
[2021-03-10] MEDS: metOLazone 5 MG TAB PO SCH (09:09)
[2021-03-10] MEDS: SIMETHICONE 40 MG/0.6 ML DROPS 2,000 MG/30 ML BOTTLE PO SCH ×4 (09:10→19:49)
[2021-03-10] MEDS ORDERED: LIDOCAINE 1% INJ 10MG/ML (20 ML MDV) SQ ONE (10:35)
[2021-03-10] MEDS: MAGNESIUM SULFATE-D5W PMX 1 GM in DEXTROSE/WATER 1 100ML.BAG IVPB SCH ×2 (10:40→12:12)
[2021-03-10] MEDS ORDERED: POTASSIUM CHLORIDE ER 20 MEQ TAB.ER PO SCH (13:00)
--- NOTE | 2021-03-10 13:57 | P.PN ---
<Jenanine Bejarano - Last Filed: 03/10/21 13:51> Subjective Progress Note Date: 03/10/21 CHIEF COMPLAINT: Lower extremity wound HISTORY OF PRESENT ILLNESS: The patient is a 70-year-old male with a new problem of right lower extremity wound. He fell over the weekend and had bleeding from the right lower extremity. He had developed a hematoma. He was seen by vascular surgery. He is scheduled for bedside debridement today with Dr. Carney. Also during this admission patient had EGD with evidence of gastric ulcers likely concerning to his anemia. Patient lying in bed comfortably. Reports that his pain is controlled. Afebrile. WBC is 6.7 hemoglobin is up from 8.7-9.2 potassium is 3.6 magnesium is 1.5. Patient elected lites are being replaced. Patient is receiving IV iron PHYSICAL EXAM: VITAL SIGNS: Reviewed GENERAL: Well-developed in no acute distress. HEENT: No sclera icterus. Extraocular movements grossly intact. Moist buccal mucosa. Head is atraumatic, normocephalic. Hears conversational speech. No nasal drainage. NECK: Supple without lymphadenopathy. CHEST: Non-labored respirations and equal bilateral excursions. CARDIOVASCULAR: Palpable 2+ radial pulses. ABDOMEN: Soft. Nondistended. MUSCULOSKELETAL: No clubbing or cyanosis. NEUROLOGIC: No focal or lateralizing signs. Cranial nerves II through XII grossly intact. PSYCH: Appropriate affect. Alert and oriented to person, place and time. SKIN: Well perfused. Good skin turgor. Extremities right leg Kahlil wrap ASSESSMENT: 1. Bilateral lower extremity venous stasis disease 2. Acute hematoma lower extremity PLAN: -Debridement per vascular service -Continue local wound care -No surgical intervention plan per general surgical service Physician Collaborative Teacher note has been reviewed by physician. Signing provider agrees with the documented findings, assessment, and plan of care. Objective - Vital Signs Vital signs: Vital Signs Temp 98.4 F 03/10/21 06:53 Pulse 80 03/10/21 11:55 Resp 18 03/10/21 06:53 BP 122/71 03/10/21 06:53 Pulse Ox 95 03/10/21 06:53 Intake & Output 03/09/21 03/10/21 03/10/21 18:59 06:59 18:59 Output Total 1325 1100 Balance -1325 -1100 Weight 107 kg Output: Urine 1325 1100 Other: Voiding Method External Catheter External Catheter External Catheter - Labs CBC & Chem 7: 03/10/21 06:45 03/10/21 12:30 Labs: Abnormal Lab Results - Last 24 Hours (Table) 03/09/21 03/10/21 03/10/21 Range/Units 06:02 06:45 06:45 RBC 3.97 L (4.30-5.90) m/uL Hgb 9.2 L (13.0-17.5) gm/dL Hct 31.3 L (39.0-53.0) % MCV 78.8 L (80.0-100.0) fL MCH 23.2 L (25.0-35.0) pg MCHC 29.4 L (31.0-37.0) g/dL RDW 18.7 H (11.5-15.5) % Potassium 3.2 L (3.5-5.1) mmol/L Chloride 96 L (98-107) mmol/L Carbon Dioxide 34.8 H 36 H (21.6-31.8) mmol/L BUN 75.0 H 77 H (9.0-27.0) mg/dL Creatinine 1.9 H 1.64 H (0.6-1.5) mg/dL Est GFR (CKD-EPI)AfAm 41.1 L (60.0-200.0) Est GFR (CKD-EPI)NonAf 35.4 L (60.0-200.0) BUN/Creatinine Ratio 39.47 H (12.00-20.00) Ratio Glucose 143 H 138 H (70-110) mg/dL Calcium 8.6 L (8.7-10.3) mg/dL Magnesium 1.5 L (1.6-2.3) mg/dL <Tamra Nuñez N - Last Filed: 03/10/21 20:28> Subjective As above. Hemoglobin stable. Management of chronic wound per vascular surgery and wound care center. Objective - Vital Signs Vital signs: Vital Signs Temp 97.7 F 03/10/21 14:00 Pulse 80 03/10/21 14:00 Resp 18 03/10/21 14:00 BP 100/57 03/10/21 14:00 Pulse Ox 91 L 03/10/21 14:00 Intake & Output 03/10/21 03/10/21 03/11/21 06:59 18:59 06:59 Output Total 1100 1500 Balance -1100 -1500 Weight 107 kg Output: Urine 1100 1500 Other: Voiding Method External Catheter External Catheter - Labs CBC & Chem 7: 03/10/21 06:45 03/10/21 12:30 Labs: Abnormal Lab Results - Last 24 Hours (Table) 03/10/21 03/10/21 Range/Units 06:45 06:45 RBC 3.97 L (4.30-5.90) m/uL Hgb 9.2 L (13.0-17.5) gm/dL Hct 31.3 L (39.0-53.0) % MCV 78.8 L (80.0-100.0) fL MCH 23.2 L (25.0-35.0) pg MCHC 29.4 L (31.0-37.0) g/dL RDW 18.7 H (11.5-15.5) % Potassium 3.2 L (3.5-5.1) mmol/L Chloride 96 L (98-107) mmol/L Carbon Dioxide 36 H (22-30) mmol/L BUN 77 H (9-20) mg/dL Creatinine 1.64 H (0.66-1.25) mg/dL Glucose 138 H (74-99) mg/dL Magnesium 1.5 L (1.6-2.3) mg/dL Assessment and Plan (1) Acute on chronic systolic CHF (congestive heart failure) Current Visit: Yes Status: Acute Code(s): I50.23 - ACUTE ON CHRONIC SYSTOLIC (CONGESTIVE) HEART FAILURE SNOMED Code(s): 758906893 (2) Anemia Current Visit: Yes Status: Acute Code(s): D64.9 - ANEMIA, UNSPECIFIED SNOMED Code(s): 489050480 (3) Bilateral lower extremity edema Current Visit: Yes Status: Acute Code(s): R60.0 - LOCALIZED EDEMA SNOMED Code(s): 821922956 (4) CHF (congestive heart failure) Current Visit: Yes Status: Acute Code(s): I50.9 - HEART FAILURE, UNSPECIFIED SNOMED Code(s): 18764114 (5) Acute exacerbation of chronic obstructive airways disease Current Visit: No Status: Acute Code(s): J44.1 - CHRONIC OBSTRUCTIVE PULMONARY DISEASE W (ACUTE) EXACERBATION SNOMED Code(s): 156697268 (6) Atrial fibrillation Current Visit: No Status: Acute Code(s): I48.91 - UNSPECIFIED ATRIAL FIBRILLATION SNOMED Code(s): 68156077 (7) Chronic atrial fibrillation Current Visit: No Status: Acute Code(s): I48.2 - CHRONIC ATRIAL FIBRILLATION * DO NOT USE * SNOMED Code(s): 153769165 (8) Dyspnea Current Visit: No Status: Acute Code(s): R06.00 - DYSPNEA, UNSPECIFIED SNOMED Code(s): 841055331 (9) Chronic venous stasis dermatitis of both lower extremities Current Visit: Yes Status: Acute Code(s): I87.2 - VENOUS INSUFFICIENCY (CHRONIC) (PERIPHERAL) SNOMED Code(s): 86826835
[2021-03-10] MEDS: HYDROcodone/APAP 5-325MG 1 EACH TAB PO PRN (15:30)
--- NOTE | 2021-03-10 16:39 | OP ---
OPERATIVE REPORT PREOPERATIVE DIAGNOSIS: Large hematoma, right lower extremity. Preoperative measurement is 10 x 9 cm. POSTOPERATIVE DIAGNOSIS: Large hematoma, right lower extremity. Postoperative measurement is 10 x 9 x 0.3 cm. This patient has a history of chronic venous hypertension, known to me from the past. The patient came in with medical issues and he is on Coumadin. He had developed a large hematoma on the right leg. PROCEDURE DESCRIPTION: Patient was seen and the right leg was prepped and draped in the usual sterile manner. Lidocaine 1% plain was infiltrated. The hematoma was removed. This patient had a loss of skin on the right lower extremity with full-thickness skin loss. All the wound clots were removed and hemostasis was well controlled. Wound was irrigated with copious saline. Aquacel Silver was applied to the wound. Pressure dressing was applied. Patient tolerated the procedure well. Plan is we will change the dressing in 48 hours. MMGURVINDERL / HAYDEEN: [id number] /
[2021-03-10] MEDS: MAGNESIUM OXIDE 400 MG TAB PO SCH (19:49)
[2021-03-10] MEDS: allopurinoL 300 MG TAB PO SCH (19:49)
[2021-03-11 06:24] LABS: ALT 14 U/L (4-49); AST 26 U/L (17-59); African American GFR (CKD) 56 (>60 ml/min/1.73 sqM); Albumin/Globulin Ratio 0.8; Alkaline Phosphatase 136 U/L (38-126); Anion Gap 9 mmol/L; Blood Urea Nitrogen 70 mg/dL (9-20); Calcium 8.4 mg/dL (8.4-10.2); Carbon Dioxide 31 mmol/L (22-30); Chloride 95 mmol/L (98-107); Globulin 3.7 g/dL; Glucose 142 mg/dL (74-99); Magnesium 1.7 mg/dL (1.6-2.3); Non-African American GFR(CKD) 49 (>60 ml/min/1.73 sqM); Potassium 3.6 mmol/L (3.5-5.1); Sodium 135 mmol/L (137-145); Total Bilirubin 0.9 mg/dL (0.2-1.3); Total Protein 6.7 g/dL (6.3-8.2)
[2021-03-11] MEDS: carvediloL 12.5 MG TAB PO SCH ×2 (07:28→16:16)
[2021-03-11] MEDS: PANTOPRAZOLE 40 MG TABLET PO SCH ×2 (07:28→16:16)
[2021-03-11] MEDS: POTASSIUM CHLORIDE ER 20 MEQ TAB.ER PO SCH ×2 (07:29→16:16)
[2021-03-11] MEDS: IPRATROPIUM-ALBUTEROL 3 ML NEB INHALATION SCH ×3 (09:22→21:09)
[2021-03-11 09:32] LABS: HCT 31.3 % (39.6-50.0); HGB 8.6 g/dL (13.0-17.0); MCH 22.3 pg (27.0-32.0); MCHC 27.5 g/dL (32.0-37.0); MCV 81.1 fL (80.0-97.0); Platelet Count 204 X 10*3/uL (140-440); RBC 3.86 X 10*6/uL (4.40-5.60); RDW 20.2 % (11.5-14.5); WBC 6.57 X 10*3/uL (4.50-10.00)
[2021-03-11] MEDS: DIGOXIN 125 MCG TAB PO SCH (09:41)
[2021-03-11] MEDS: FUROSEMIDE 40 MG TAB PO SCH ×2 (09:41→16:16)
[2021-03-11] MEDS: TAMSULOSIN 0.4 MG CAP.ER.24H PO SCH (09:42)
[2021-03-11] MEDS: metOLazone 5 MG TAB PO SCH (09:42)
[2021-03-11] MEDS: lisinopriL 20 MG TAB PO SCH (09:42)
[2021-03-11] MEDS: ISOSORBIDE MONONITRATE ER 30 MG TAB.ER.24H PO SCH (09:42)
[2021-03-11] MEDS: SIMETHICONE 40 MG/0.6 ML DROPS 2,000 MG/30 ML BOTTLE PO SCH ×4 (09:43→21:46)
[2021-03-11] MEDS: HYDROPHILIC CREAM 180 GM TUBE TOPICAL SCH (09:49)
[2021-03-11] MEDS: SODIUM FERRIC GLUCONAT-SUCROSE 125 MG in SODIUM CHLORIDE 0.9% 100 ML IVPB SCH (09:50)
--- NOTE | 2021-03-11 11:27 | P.PN ---
Subjective Progress Note Date: 03/11/21 CHIEF COMPLAINT: Lower extremity wound HISTORY OF PRESENT ILLNESS: The patient is a 70-year-old male with a new problem of right lower extremity wound. He fell over the weekend and had bleeding from the right lower extremity. He had developed a hematoma. He was seen by vascular surgery. He is status post evacuation of right leg hematoma by Dr. Carney. Patient is resting in bed comfortably. No new complaints. WBC 6.57 hemoglobin 8.6 platelets 204 sodium 135 potassium 3.6 creatinine 1.46 PHYSICAL EXAM: VITAL SIGNS: Reviewed GENERAL: Well-developed in no acute distress. HEENT: No sclera icterus. Extraocular movements grossly intact. Moist buccal mucosa. Head is atraumatic, normocephalic. Hears conversational speech. No nasal drainage. NECK: Supple without lymphadenopathy. CHEST: Non-labored respirations and equal bilateral excursions. CARDIOVASCULAR: Palpable 2+ radial pulses. ABDOMEN: Soft. Nondistended. MUSCULOSKELETAL: No clubbing or cyanosis. NEUROLOGIC: No focal or lateralizing signs. Cranial nerves II through XII grossly intact. PSYCH: Appropriate affect. Alert and oriented to person, place and time. SKIN: Well perfused. Good skin turgor. Extremities right leg Kahlil wrap ASSESSMENT: 1. Bilateral lower extremity venous stasis disease 2. Acute hematoma lower extremity 3. Gastric ulcer PLAN: -Continue supportive care -Continue local wound care per vascular surgery and wound care center -No surgical intervention plan per general surgical service Physician Fire[employer] Model Maker note has been reviewed by physician. Signing provider agrees with the documented findings, assessment, and plan of care. Objective - Vital Signs Vital signs: Vital Signs Temp 97.7 F 03/11/21 07:57 Pulse 84 03/11/21 09:30 Resp 16 03/11/21 07:57 BP 129/71 03/11/21 07:57 Pulse Ox 93 L 03/11/21 09:22 Intake & Output 03/10/21 03/11/21 03/11/21 18:59 06:59 18:59 Intake Total 480 Output Total 1500 1974 Balance -1500 -1495 Weight 107.5 kg Intake: Oral 480 Output: Urine 1500 1974 Other: Voiding Method External Catheter External Catheter External Catheter - Labs CBC & Chem 7: 03/11/21 05:36 03/11/21 05:36 Labs: Abnormal Lab Results - Last 24 Hours (Table) 03/11/21 03/11/21 Range/Units 05:36 05:36 RBC 3.86 L (4.40-5.60) X 10*6/uL Hgb 8.6 L (13.0-17.0) g/dL Hct 31.3 L (39.6-50.0) % MCH 22.3 L (27.0-32.0) pg MCHC 27.5 L (32.0-37.0) g/dL RDW 20.2 H (11.5-14.5) % Absolute Nucleated RBC 0.02 H (0.00-0.00) X 10*3/uL NRBC/100 WBC Diff 0.3 H (0.0-0.0) /100 WBCS Sodium 135 L (137-145) mmol/L Chloride 95 L (98-107) mmol/L Carbon Dioxide 31 H (22-30) mmol/L BUN 70 H (9-20) mg/dL Creatinine 1.46 H (0.66-1.25) mg/dL Glucose 142 H (74-99) mg/dL Alkaline Phosphatase 136 H (38-126) U/L Albumin 3.0 L (3.5-5.0) g/dL
--- NOTE | 2021-03-11 18:40 | P.PN ---
Subjective Principal diagnosis: Congestive heart failure with ulcer ggastric. This is a Continuing progress note on a 70-year-old white male who is essentially admitted relative to congestive heart failure but developed anemia of acute blood loss. Upper GI's showed significant gastric ulceration. Now he has developed hematoma on the right lower extremity which has been easily friable and having significant blood loss. Coumadin has been discontinued temporarily.. Yesterday, skin graft was placed for appropriate wound care. Objective - Vital Signs Vital signs: Vital Signs Temp 97.7 F 03/11/21 15:38 Pulse 81 03/11/21 15:38 Resp 17 03/11/21 15:38 BP 106/55 03/11/21 15:38 Pulse Ox 96 03/11/21 15:38 Intake & Output 03/10/21 03/11/21 03/11/21 18:59 06:59 18:59 Intake Total 480 100 Output Total 1500 1974 Balance -1500 -1495 100 Weight 107.5 kg Intake: Intake, IV Titration 100 Amount Sodium Ferric Gluconat- 100 Sucrose 125 mg In Sodium Chloride 0.9% 100 ml @ 100 mls/hr IVPB DAILY [facility] Rx#:[id number] Oral 480 Output: Urine 1500 1974 Other: Voiding Method External Catheter External Catheter External Catheter - Constitutional General appearance: Present: obese - EENT Eyes: Absent: abnormal pupil - Neck Neck: Absent: lymphadenopathy - Respiratory Respiratory: bilateral: diminished - Cardiovascular Rhythm: irregularly irregular Heart sounds: normal: S1, S2 Abnormal Heart Sounds: Absent: S3 Gallop - Gastrointestinal General gastrointestinal: Present: soft. Absent: tenderness - Integumentary Integumentary Comment(s): Area where hematoma was is now been wrapped. - Musculoskeletal Musculoskeletal: Present: generalized weakness - Psychiatric Psychiatric: Present: A&O x's 3 - Labs CBC & Chem 7: 03/11/21 05:36 03/11/21 05:36 Labs: Abnormal Lab Results - Last 24 Hours (Table) 03/11/21 03/11/21 Range/Units 05:36 05:36 RBC 3.86 L (4.40-5.60) X 10*6/uL Hgb 8.6 L (13.0-17.0) g/dL Hct 31.3 L (39.6-50.0) % MCH 22.3 L (27.0-32.0) pg MCHC 27.5 L (32.0-37.0) g/dL RDW 20.2 H (11.5-14.5) % Absolute Nucleated RBC 0.02 H (0.00-0.00) X 10*3/uL NRBC/100 WBC Diff 0.3 H (0.0-0.0) /100 WBCS Sodium 135 L (137-145) mmol/L Chloride 95 L (98-107) mmol/L Carbon Dioxide 31 H (22-30) mmol/L BUN 70 H (9-20) mg/dL Creatinine 1.46 H (0.66-1.25) mg/dL Glucose 142 H (74-99) mg/dL Alkaline Phosphatase 136 H (38-126) U/L Albumin 3.0 L (3.5-5.0) g/dL Assessment and Plan (1) Acute on chronic systolic CHF (congestive heart failure) Current Visit: Yes Status: Acute Code(s): I50.23 - ACUTE ON CHRONIC SYSTOLIC (CONGESTIVE) HEART FAILURE SNOMED Code(s): 753369879 (2) Atrial fibrillation Current Visit: No Status: Acute Code(s): I48.91 - UNSPECIFIED ATRIAL FIBRILLATION SNOMED Code(s): 86101548 (3) Chronic venous hypertension (idiopathic) with ulcer and inflammation of bilateral lower extremity Current Visit: No Status: Acute Code(s): I87.333 - CHRONIC VENOUS HTN W ULCER AND INFLAM OF BILATERAL LOW EXTRM; L97.919 - NON-PRS CHRONIC ULC UNSP PRT OF R LOW LEG W UNSP SEVERITY; L97.929 - NON-PRS CHRONIC ULC UNSP PRT OF L LOW LEG W UNSP SEVERITY SNOMED Code(s): 556689340641452 (4) Edema extremities Current Visit: No Status: Acute Code(s): R60.0 - LOCALIZED EDEMA SNOMED Code(s): 642908199 (5) Generalized weakness Current Visit: No Status: Acute Code(s): R53.1 - WEAKNESS SNOMED Code(s): 36991421 (6) Hematoma of leg Current Visit: No Status: Acute Code(s): S80.10XA - CONTUSION OF UNSPECIFIED LOWER LEG, INITIAL ENCOUNTER SNOMED Code(s): 881038882 (7) Venous stasis ulcer of left lower extremity Current Visit: No Status: Acute Code(s): I83.029 - VARICOSE VEINS OF LEFT LOWER EXTREMITY W ULCER OF UNSP SITE SNOMED Code(s): 001346429 Plan: Hold off on discharge for now GI bleeding will be also be monitored Check CBC in the a.m. Otherwise, wound care for hematoma with recent skin graft. Question element of placement issue.
[2021-03-11] MEDS: MAGNESIUM OXIDE 400 MG TAB PO SCH (21:46)
[2021-03-11] MEDS: allopurinoL 300 MG TAB PO SCH (21:46)
[2021-03-12 07:06] LABS: ALT 14 U/L (4-49); AST 26 U/L (17-59); African American GFR (CKD) 52 (>60 ml/min/1.73 sqM); Albumin/Globulin Ratio 0.8; Alkaline Phosphatase 153 U/L (38-126); Anion Gap 10 mmol/L; Blood Urea Nitrogen 66 mg/dL (9-20); Calcium 8.6 mg/dL (8.4-10.2); Carbon Dioxide 32 mmol/L (22-30); Chloride 96 mmol/L (98-107); Globulin 3.7 g/dL; Glucose 135 mg/dL (74-99); Non-African American GFR(CKD) 45 (>60 ml/min/1.73 sqM); Potassium 3.4 mmol/L (3.5-5.1); Sodium 138 mmol/L (137-145); Total Bilirubin 0.9 mg/dL (0.2-1.3); Total Protein 6.7 g/dL (6.3-8.2)
[2021-03-12] MEDS: TAMSULOSIN 0.4 MG CAP.ER.24H PO SCH (08:43)
[2021-03-12] MEDS: PANTOPRAZOLE 40 MG TABLET PO SCH ×2 (08:43→15:04)
[2021-03-12] MEDS: FUROSEMIDE 40 MG TAB PO SCH ×2 (08:43→15:04)
[2021-03-12] MEDS: metOLazone 5 MG TAB PO SCH (08:43)
[2021-03-12] MEDS: POTASSIUM CHLORIDE ER 20 MEQ TAB.ER PO SCH ×4 (08:43→15:04)
[2021-03-12] MEDS: carvediloL 12.5 MG TAB PO SCH ×2 (08:44→15:04)
[2021-03-12] MEDS: DIGOXIN 125 MCG TAB PO SCH (08:44)
[2021-03-12] MEDS: ISOSORBIDE MONONITRATE ER 30 MG TAB.ER.24H PO SCH (08:44)
[2021-03-12] MEDS: lisinopriL 20 MG TAB PO SCH (08:44)
[2021-03-12] MEDS: HYDROPHILIC CREAM 180 GM TUBE TOPICAL SCH (08:44)
[2021-03-12] MEDS: SIMETHICONE 40 MG/0.6 ML DROPS 2,000 MG/30 ML BOTTLE PO SCH ×3 (08:45→15:04)
[2021-03-12] MEDS: SODIUM FERRIC GLUCONAT-SUCROSE 125 MG in SODIUM CHLORIDE 0.9% 100 ML IVPB SCH (08:52)
[2021-03-12] MEDS: IPRATROPIUM-ALBUTEROL 3 ML NEB INHALATION SCH ×3 (08:54→20:11)
[2021-03-12 09:04] LABS: HCT 32.3 % (39.6-50.0); HGB 8.7 g/dL (13.0-17.0); MCHC 26.9 g/dL (32.0-37.0); MCV 81.8 fL (80.0-97.0); Mean Platelet Volume 10.6 fL (9.5-12.2); Platelet Count 212 X 10*3/uL (140-440); RBC 3.95 X 10*6/uL (4.40-5.60); RDW 20.4 % (11.5-14.5); WBC 7.02 X 10*3/uL (4.50-10.00)
[2021-03-12] MEDS ORDERED: WARFARIN 5 MG TAB PO ONE (18:30)
[2021-03-12 19:06] LABS: INR 1.2 (<1.2); Prothrombin Time 12.6 sec (9.0-12.0)
[2021-03-12] MEDS: allopurinoL 300 MG TAB PO SCH (20:20)
[2021-03-12] MEDS: MAGNESIUM OXIDE 400 MG TAB PO SCH (20:20)
--- NOTE | 2021-03-12 23:19 | P.PN ---
Subjective Principal diagnosis: Congestive heart failure with ulcer ggastric. This is a Continuing progress note on a 70-year-old white male who is essentially admitted relative to congestive heart failure but developed anemia of acute blood loss. Upper GI's showed significant gastric ulceration. Now he has developed hematoma on the right lower extremity which has been easily friable and having significant blood loss. Coumadin has been discontinued temporarily.. Yesterday, skin graft was placed for appropriate wound care. Tomorrow, vascular surgery will reevaluate Objective - Vital Signs Vital signs: Vital Signs Temp 98.8 F 03/12/21 19:20 Pulse 69 03/12/21 20:17 Resp 18 03/12/21 19:26 BP 147/83 03/12/21 19:20 Pulse Ox 95 03/12/21 19:20 Intake & Output 03/12/21 03/12/21 03/13/21 06:59 18:59 06:59 Intake Total 100 Output Total 1800 1300 450 Balance -1800 -1200 -450 Weight 106 kg Intake: Intake, IV Titration 100 Amount Sodium Ferric Gluconat- 100 Sucrose 125 mg In Sodium Chloride 0.9% 100 ml @ 100 mls/hr IVPB DAILY [facility] Rx#:[id number] Output: Urine 1800 1300 450 Other: Voiding Method External Catheter External Catheter External Catheter # Bowel Movements 1 1 - Constitutional General appearance: Present: obese - EENT Eyes: Absent: abnormal pupil - Neck Neck: Absent: lymphadenopathy - Respiratory Respiratory: bilateral: diminished - Cardiovascular Rhythm: irregularly irregular Heart sounds: normal: S1, S2 Abnormal Heart Sounds: Absent: S3 Gallop - Gastrointestinal General gastrointestinal: Present: soft. Absent: tenderness - Psychiatric Psychiatric: Present: A&O x's 3, appropriate affect - Labs CBC & Chem 7: 03/12/21 04:57 03/12/21 04:57 Labs: Abnormal Lab Results - Last 24 Hours (Table) 03/12/21 03/12/21 03/12/21 Range/Units 04:57 04:57 18:48 RBC 3.95 L (4.40-5.60) X 10*6/uL Hgb 8.7 L (13.0-17.0) g/dL Hct 32.3 L (39.6-50.0) % MCH 22.0 L (27.0-32.0) pg MCHC 26.9 L (32.0-37.0) g/dL RDW 20.4 H (11.5-14.5) % PT 12.6 H (9.0-12.0) sec INR 1.2 H (<1.2) Potassium 3.4 L (3.5-5.1) mmol/L Chloride 96 L (98-107) mmol/L Carbon Dioxide 32 H (22-30) mmol/L BUN 66 H (9-20) mg/dL Creatinine 1.57 H (0.66-1.25) mg/dL Glucose 135 H (74-99) mg/dL Alkaline Phosphatase 153 H (38-126) U/L Albumin 3.0 L (3.5-5.0) g/dL Assessment and Plan (1) Acute on chronic systolic CHF (congestive heart failure) Current Visit: Yes Status: Acute Code(s): I50.23 - ACUTE ON CHRONIC SYSTOLIC (CONGESTIVE) HEART FAILURE SNOMED Code(s): 680242682 (2) Atrial fibrillation Current Visit: No Status: Acute Code(s): I48.91 - UNSPECIFIED ATRIAL FIBRILLATION SNOMED Code(s): 48646514 (3) Chronic venous hypertension (idiopathic) with ulcer and inflammation of b ilateral lower extremity Current Visit: No Status: Acute Code(s): I87.333 - CHRONIC VENOUS HTN W ULCER AND INFLAM OF BILATERAL LOW EXTRM; L97.919 - NON-PRS CHRONIC ULC UNSP PRT OF R LOW LEG W UNSP SEVERITY; L97.929 - NON-PRS CHRONIC ULC UNSP PRT OF L LOW LEG W UNSP SEVERITY SNOMED Code(s): 071294584948481 (4) Edema extremities Current Visit: No Status: Acute Code(s): R60.0 - LOCALIZED EDEMA SNOMED Code(s): 820823421 (5) Generalized weakness Current Visit: No Status: Acute Code(s): R53.1 - WEAKNESS SNOMED Code(s): 64313707 (6) Hematoma of leg Current Visit: No Status: Acute Code(s): S80.10XA - CONTUSION OF UNSPECIFIED LOWER LEG, INITIAL ENCOUNTER SNOMED Code(s): 756450235 (7) Venous stasis ulcer of left lower extremity Current Visit: No Status: Acute Code(s): I83.029 - VARICOSE VEINS OF LEFT LOWER EXTREMITY W ULCER OF UNSP SITE SNOMED Code(s): 456151905 Plan: Hold off on discharge for now GI bleeding will be also be monitored Check CBC in the a.m. Otherwise, wound care for hematoma with recent skin graft. Question element of placement issue.
[2021-03-13] MEDS: SIMETHICONE 40 MG/0.6 ML DROPS 2,000 MG/30 ML BOTTLE PO SCH ×5 (03:46→21:02)
[2021-03-13 06:41] LABS: INR 1.2 (<1.2); Prothrombin Time 12.7 sec (9.0-12.0)
--- NOTE | 2021-03-13 08:07 | P.PN ---
Subjective Principal diagnosis: Congestive heart failure with ulcer ggastric. This is a Continuing progress note on a 70-year-old white male who is essentially admitted relative to congestive heart failure but developed anemia of acute blood loss. Upper GI's showed significant gastric ulceration. Now he has developed hematoma on the right lower extremity which has been easily friable and having significant blood loss. Coumadin has been discontinued temporarily.. Yesterday, skin graft was placed for appropriate wound care. Today, vascular surgery will reevaluate Ascertain whether we can start blood thinner. Objective - Vital Signs Vital signs: Vital Signs Temp 98.3 F 03/13/21 07:42 Pulse 77 03/13/21 07:42 Resp 18 03/13/21 07:42 BP 146/79 03/13/21 07:42 Pulse Ox 93 L 03/13/21 07:42 Intake & Output 03/12/21 03/13/21 03/13/21 18:59 06:59 18:59 Intake Total 100 Output Total 1300 1000 Balance -1200 -1000 Weight 104.5 kg Intake: Intake, IV Titration 100 Amount Sodium Ferric Gluconat- 100 Sucrose 125 mg In Sodium Chloride 0.9% 100 ml @ 100 mls/hr IVPB DAILY [facility] Rx#:[id number] Output: Urine 1300 1000 Other: Voiding Method External Catheter External Catheter # Bowel Movements 1 1 - Constitutional General appearance: Present: obese - EENT Eyes: Absent: abnormal pupil - Neck Neck: Absent: lymphadenopathy - Respiratory Respiratory: bilateral: diminished - Cardiovascular Rhythm: irregularly irregular Heart sounds: normal: S1, S2 Abnormal Heart Sounds: Absent: S3 Gallop - Gastrointestinal General gastrointestinal: Present: soft. Absent: tenderness - Integumentary Integumentary: Present: rash - Labs CBC & Chem 7: 03/12/21 04:57 03/12/21 04:57 Labs: Abnormal Lab Results - Last 24 Hours (Table) 03/12/21 03/12/21 03/13/21 Range/Units 04:57 18:48 05:50 RBC 3.95 L (4.40-5.60) X 10*6/uL Hgb 8.7 L (13.0-17.0) g/dL Hct 32.3 L (39.6-50.0) % MCH 22.0 L (27.0-32.0) pg MCHC 26.9 L (32.0-37.0) g/dL RDW 20.4 H (11.5-14.5) % PT 12.6 H 12.7 H (9.0-12.0) sec INR 1.2 H 1.2 H (<1.2) Assessment and Plan (1) Acute on chronic systolic CHF (congestive heart failure) Current Visit: Yes Status: Acute Code(s): I50.23 - ACUTE ON CHRONIC SYSTOLIC (CONGESTIVE) HEART FAILURE SNOMED Code(s): 926687156 (2) Atrial fibrillation Current Visit: No Status: Acute Code(s): I48.91 - UNSPECIFIED ATRIAL FIBRILLATION SNOMED Code(s): 79266879 (3) Chronic venous hypertension (idiopathic) with ulcer and inflammation of bilateral lower extremity Current Visit: No Status: Acute Code(s): I87.333 - CHRONIC VENOUS HTN W ULCER AND INFLAM OF BILATERAL LOW EXTRM; L97.919 - NON-PRS CHRONIC ULC UNSP PRT OF R LOW LEG W UNSP SEVERITY; L97.929 - NON-PRS CHRONIC ULC UNSP PRT OF L LOW LEG W UNSP SEVERITY SNOMED Code(s): 079213900352253 (4) Edema extremities Current Visit: No Status: Acute Code(s): R60.0 - LOCALIZED EDEMA SNOMED Code(s): 890044870 (5) Generalized weakness Current Visit: No Status: Acute Code(s): R53.1 - WEAKNESS SNOMED Code(s): 07302378 (6) Hematoma of leg Current Visit: No Status: Acute Code(s): S80.10XA - CONTUSION OF UNSPECIFIED LOWER LEG, INITIAL ENCOUNTER SNOMED Code(s): 855346246 (7) Venous stasis ulcer of left lower extremity Current Visit: No Status: Acute Code(s): I83.029 - VARICOSE VEINS OF LEFT LOWER EXTREMITY W ULCER OF UNSP SITE SNOMED Code(s): 415090947 Plan: Wound care for hematoma skin graft. GI bleeding-stabilized for now. Atrial fibrillation. We need to ascertain when we can restart his blood thinner given the fact that he's had GI bleeding and hematoma of the right lower extremity. Appreciate vascular surgery for skin graft. DC when cleared by consultants. Dr. Bunch's group will be covering for the weekend
[2021-03-13] MEDS: PANTOPRAZOLE 40 MG TABLET PO SCH ×2 (08:50→17:19)
[2021-03-13] MEDS: carvediloL 12.5 MG TAB PO SCH ×2 (08:50→17:20)
[2021-03-13] MEDS: lisinopriL 20 MG TAB PO SCH (08:51)
[2021-03-13] MEDS: ISOSORBIDE MONONITRATE ER 30 MG TAB.ER.24H PO SCH (08:51)
[2021-03-13] MEDS: TAMSULOSIN 0.4 MG CAP.ER.24H PO SCH (08:51)
[2021-03-13] MEDS: FUROSEMIDE 40 MG TAB PO SCH ×2 (08:51→17:20)
[2021-03-13] MEDS: DIGOXIN 125 MCG TAB PO SCH (08:51)
[2021-03-13] MEDS: POTASSIUM CHLORIDE ER 20 MEQ TAB.ER PO SCH ×2 (08:51→17:19)
[2021-03-13] MEDS: metOLazone 5 MG TAB PO SCH (08:51)
[2021-03-13] MEDS: HYDROPHILIC CREAM 180 GM TUBE TOPICAL SCH (08:52)
[2021-03-13] MEDS: IPRATROPIUM-ALBUTEROL 3 ML NEB INHALATION SCH ×3 (09:43→19:46)
[2021-03-13] MEDS: HYDROcodone/APAP 5-325MG 1 EACH TAB PO PRN (11:43)
[2021-03-13] MEDS ORDERED: NORFLURANE/PENTAFLUOROPROPANE 103.5 ML SPRAY (PAIN EASE) TOPICAL PRN (13:00)
[2021-03-13 14:57] VITALS: BMI 33.0
[2021-03-13] MEDS ORDERED: WARFARIN 2 MG TAB PO ONE (18:00)
[2021-03-13] MEDS: MAGNESIUM OXIDE 400 MG TAB PO SCH (21:02)
[2021-03-13] MEDS: allopurinoL 300 MG TAB PO SCH (21:02)
[2021-03-14] MEDS: IPRATROPIUM-ALBUTEROL 3 ML NEB INHALATION SCH ×3 (07:47→20:26)
[2021-03-14 08:08] LABS: INR 1.1 (<1.2)
[2021-03-14] MEDS: FUROSEMIDE 40 MG TAB PO SCH ×2 (08:14→17:46)
[2021-03-14] MEDS: carvediloL 12.5 MG TAB PO SCH ×2 (08:14→17:46)
[2021-03-14] MEDS: ISOSORBIDE MONONITRATE ER 30 MG TAB.ER.24H PO SCH (08:14)
[2021-03-14] MEDS: PANTOPRAZOLE 40 MG TABLET PO SCH ×2 (08:14→17:46)
[2021-03-14] MEDS: TAMSULOSIN 0.4 MG CAP.ER.24H PO SCH (08:14)
[2021-03-14] MEDS: metOLazone 5 MG TAB PO SCH (08:14)
[2021-03-14] MEDS: lisinopriL 20 MG TAB PO SCH (08:14)
[2021-03-14] MEDS: DIGOXIN 125 MCG TAB PO SCH (08:14)
[2021-03-14] MEDS: POTASSIUM CHLORIDE ER 20 MEQ TAB.ER PO SCH ×2 (08:14→17:46)
[2021-03-14] MEDS: HYDROPHILIC CREAM 180 GM TUBE TOPICAL SCH (08:15)
[2021-03-14] MEDS: SIMETHICONE 40 MG/0.6 ML DROPS 2,000 MG/30 ML BOTTLE PO SCH ×4 (08:15→20:52)
[2021-03-14] MEDS ORDERED: WARFARIN 3 MG TAB PO ONE (18:00)
--- NOTE | 2021-03-14 18:45 | PN ---
PROGRESS NOTE DATE OF SERVICE: 03/14/2021. HISTORY: I am covering for Dr. Modi. This 70-year-old gentleman admitted with CHF exacerbation is closely monitored. The patient is hypotensive. Lasix dose has been held last night. No chest pain. No palpitations. No fever. PHYSICAL EXAMINATION: Alert, oriented x3. Pulse 78, blood pressure 120/62, respiration 18 temperature 97.8, pulse ox 99% on 2 L. HEENT: Conjunctivae normal. LUNGS: Breath sounds diminished at the bases. Few scattered rhonchi. ABDOMEN: Soft. NERVOUS SYSTEM: Diffusely weak. LABS: Hemoglobin 8.7, potassium 3.4, creatinine is 1.57. ASSESSMENT: 1. CHF acute exacerbation acute on chronic systolic dysfunction. 2. Atrial fibrillation. 3. Chronic kidney disease stage 3. 4. Hypertension. 5. Bilateral leg edema. 6. Gait dysfunction. 7. Hematoma of the legs. 8. Venous stasis ulcer. 9. Hypokalemia. 10.Anemia, normocytic. RECOMMENDATIONS: In this 70-year-old gentleman who presented with multiple complex medical issues, at this time I recommend to continue current management and current medications. Repeat labs. Continue the Lasix p.o. twice daily. PT OT evaluation, possible ECF rehab. Prognosis guarded. Further recommendations to follow. MMODL / IJN: [id number] /
[2021-03-14] MEDS: MAGNESIUM OXIDE 400 MG TAB PO SCH (20:53)
[2021-03-14] MEDS: allopurinoL 300 MG TAB PO SCH (20:53)
[2021-03-15 05:57] LABS: INR 1.2 (<1.2); Prothrombin Time 12.4 sec (9.0-12.0)
[2021-03-15] MEDS: IPRATROPIUM-ALBUTEROL 3 ML NEB INHALATION SCH ×3 (08:21→20:12)
[2021-03-15] MEDS: carvediloL 12.5 MG TAB PO SCH ×2 (09:02→16:46)
[2021-03-15] MEDS: POTASSIUM CHLORIDE ER 20 MEQ TAB.ER PO SCH ×2 (09:02→16:46)
[2021-03-15] MEDS: FUROSEMIDE 40 MG TAB PO SCH ×2 (09:02→16:46)
[2021-03-15] MEDS: lisinopriL 20 MG TAB PO SCH (09:02)
[2021-03-15] MEDS: DIGOXIN 125 MCG TAB PO SCH (09:02)
[2021-03-15] MEDS: PANTOPRAZOLE 40 MG TABLET PO SCH ×2 (09:02→16:46)
[2021-03-15] MEDS: ISOSORBIDE MONONITRATE ER 30 MG TAB.ER.24H PO SCH (09:02)
[2021-03-15] MEDS: TAMSULOSIN 0.4 MG CAP.ER.24H PO SCH (09:05)
[2021-03-15] MEDS: SIMETHICONE 40 MG/0.6 ML DROPS 2,000 MG/30 ML BOTTLE PO SCH ×4 (09:06→21:55)
[2021-03-15] MEDS ORDERED: HYDROcodone/APAP 5-325MG 1 EACH TAB PO PRN (09:17)
[2021-03-15 11:14] LABS: Basophils # (A) 0.03 X 10*3/uL (0.00-0.10); Basophils % (A) 0.4 %; Eosinophils % (A) 5.1 %; HCT 31.2 % (39.6-50.0); HGB 8.4 g/dL (13.0-17.0); Lymphocytes # (A) 0.96 X 10*3/uL (0.90-5.00); Lymphocytes % (A) 12.3 %; MCH 22.6 pg (27.0-32.0); MCHC 26.9 g/dL (32.0-37.0); MCV 84.1 fL (80.0-97.0); Mean Platelet Volume 10.7 fL (9.5-12.2); Monocytes # (A) 0.82 X 10*3/uL (0.20-1.00); Monocytes % (A) 10.5 %; Neutrophils # (A) 5.57 X 10*3/uL (1.80-7.70); Neutrophils % (A) 71.1 %; Platelet Count 263 X 10*3/uL (140-440); RBC 3.71 X 10*6/uL (4.40-5.60); RDW 21.8 % (11.5-14.5); WBC 7.83 X 10*3/uL (4.50-10.00)
[2021-03-15] MEDS: HYDROPHILIC CREAM 180 GM TUBE TOPICAL SCH (11:18)
[2021-03-15] MEDS: metOLazone 5 MG TAB PO SCH (11:22)
[2021-03-15 11:53] LABS: African American GFR (CKD) 50.6 (60.0-200.0); Anion Gap 8.7 mmol/L (4.00-12.00); BUN/Creat Ratio 38.13 Ratio (12.00-20.00); Calcium 8.3 mg/dL (8.7-10.3); Carbon Dioxide 32.3 mmol/L (21.6-31.8); Non-African American GFR(CKD) 43.6 (60.0-200.0); Potassium 3.5 mmol/L (3.5-5.5)
[2021-03-15] MEDS ORDERED: WARFARIN 7.5 MG TAB PO ONE (18:00)
--- NOTE | 2021-03-15 19:12 | PN ---
PROGRESS NOTE DATE OF SERVICE: 03/15/2021 I am covering for Dr. Modi. This 70-year-old gentleman who was admitted with CHF acute exacerbation is being closely monitored. Patient also generally weak and possible ECF rehab is also contemplated. No chest pain. No palpitations. No fever. EXAM: Alert oriented x2. Pulse 99, blood pressure 100/52, respiration 18, temperature 98.2, pulse ox 94% on room air HEENT: Conjunctivae normal. Oral mucosa moist. NECK: No jugular venous distention. No lymph node enlargement. CARDIOVASCULAR: S1, S2, muffled. No S3, no S4, RESPIRATORY: Diminished breath sounds at the bases. Scattered rhonchi. ABDOMEN: Soft, nontender. LEGS: No edema, no swelling. NERVOUS SYSTEM: No focal deficits. LABS: Hemoglobin is 8.4. Creatinine is 1.6. ASSESSMENT: 1. Congestive heart failure acute exacerbation with acute on chronic systolic dysfunction. 2. Atrial fibrillation. 3. Chronic kidney disease stage 3. 4. Hypertension. 5. Bilateral leg edema. 6. Gait dysfunction, hematoma of the legs. 7. Venous stasis ulcer. 8. Hypokalemia. 9. Anemia, normocytic. RECOMMENDATIONS AND DISCUSSION: Recommend to continue current medications, continue to monitor and symptomatic treatment. Otherwise, at this time I recommend repeat labs and potassium 3.[address] Modi will follow. Possible ECF rehab. Further recommendations to follow. MMGURVINDERL / HAYDEEN: [id number] /
[2021-03-15] MEDS: MAGNESIUM OXIDE 400 MG TAB PO SCH (21:54)
[2021-03-15] MEDS: allopurinoL 300 MG TAB PO SCH (21:54)
[2021-03-16 07:04] LABS: INR 1.3 (<1.2)
[2021-03-16] MEDS: IPRATROPIUM-ALBUTEROL 3 ML NEB INHALATION SCH ×3 (07:49→21:16)
[2021-03-16] MEDS: lisinopriL 20 MG TAB PO SCH (07:57)
[2021-03-16] MEDS: ISOSORBIDE MONONITRATE ER 30 MG TAB.ER.24H PO SCH (07:57)
[2021-03-16] MEDS: carvediloL 12.5 MG TAB PO SCH ×2 (07:57→15:39)
[2021-03-16] MEDS: POTASSIUM CHLORIDE ER 20 MEQ TAB.ER PO SCH ×2 (07:57→17:49)
[2021-03-16] MEDS: TAMSULOSIN 0.4 MG CAP.ER.24H PO SCH (07:57)
[2021-03-16] MEDS: PANTOPRAZOLE 40 MG TABLET PO SCH ×2 (07:57→17:49)
[2021-03-16] MEDS: FUROSEMIDE 40 MG TAB PO SCH ×2 (07:57→15:38)
[2021-03-16] MEDS: DIGOXIN 125 MCG TAB PO SCH (07:58)
[2021-03-16] MEDS: metOLazone 5 MG TAB PO SCH (07:58)
[2021-03-16] MEDS: SIMETHICONE 40 MG/0.6 ML DROPS 2,000 MG/30 ML BOTTLE PO SCH ×4 (07:59→23:51)
[2021-03-16] MEDS: HYDROPHILIC CREAM 180 GM TUBE TOPICAL SCH (07:59)
[2021-03-16 09:22] LABS: HCT 32.2 % (39.6-50.0); HGB 8.9 g/dL (13.0-17.0); MCH 22.9 pg (27.0-32.0); MCHC 27.6 g/dL (32.0-37.0); Mean Platelet Volume 10.4 fL (9.5-12.2); Platelet Count 251 X 10*3/uL (140-440); RBC 3.88 X 10*6/uL (4.40-5.60); RDW 22.5 % (11.5-14.5); WBC 8.16 X 10*3/uL (4.50-10.00)
[2021-03-16 09:42] LABS: African American GFR (CKD) 50.6 (60.0-200.0); Anion Gap 9.3 mmol/L (4.00-12.00); BUN/Creat Ratio 38.13 Ratio (12.00-20.00); Calcium 8.4 mg/dL (8.7-10.3); Carbon Dioxide 33.7 mmol/L (21.6-31.8); Non-African American GFR(CKD) 43.6 (60.0-200.0); Potassium 3.6 mmol/L (3.5-5.5)
[2021-03-16 11:35] LABS: Basophils # (A) 0.04 X 10*3/uL (0.00-0.10); Basophils % (A) 0.5 %; Eosinophils # (A) 0.48 X 10*3/uL (0.04-0.35); Eosinophils % (A) 5.9 %; Hypochromasia (M) 2+; Lymphocytes % (A) 15.9 %; Microcytosis (M) 2+; Monocytes # (A) 0.72 X 10*3/uL (0.20-1.00); Monocytes % (A) 8.8 %; Neutrophils # (A) 5.57 X 10*3/uL (1.80-7.70); Neutrophils % (A) 68.3 %
--- NOTE | 2021-03-16 17:36 | PN ---
PROGRESS NOTE This is a 70-year-old gentleman who is known to me from the wound clinic. He has history of chronic venous hypertension of the both lower extremities. Patient has developed superficial wound bilateral lower extremity and had a history of hematoma formation to both lower extremities. We did change the dressing today. No active bleeding was noted. The patient has bilateral lower extremity large area of chronic wound is granulating. We changed the dressing today with Aquacel silver and two layer pressure dressing applied. We will change the dressing in 72 hours. MMODL / IJN: [id number] /
[2021-03-16] MEDS ORDERED: WARFARIN 7.5 MG TAB PO ONE (18:00)
--- NOTE | 2021-03-16 23:21 | P.PN ---
Subjective Principal diagnosis: Congestive heart failure with ulcer ggastric. This is a Continuing progress note on a 70-year-old white male who is essentially admitted relative to congestive heart failure but developed anemia of acute blood loss. Upper GI's showed significant gastric ulceration. Now he has developed hematoma on the right lower extremity which has been easily friable and having significant blood loss. Coumadin has been discontinued temporarily.. Skin graft was placed. Coumadin will be restarted. However, placement secondary to poor mobility Objective - Vital Signs Vital signs: Vital Signs Temp 98.1 F 03/16/21 14:00 Pulse 92 03/16/21 21:30 Resp 18 03/16/21 19:44 BP 113/71 03/16/21 15:38 Pulse Ox 98 03/16/21 21:16 Intake & Output 03/16/21 03/16/21 03/17/21 06:59 18:59 06:59 Intake Total 790 Output Total 1500 1200 300 Balance -1500 -1200 490 Weight 104 kg 104 kg Intake: Intake, IV Titration 550 Amount Sodium Chloride 0.9% 500 500 ml 500 ml @ 0 mls/hr IV . [facility] Rx#: [id number] ceFAZolin 2 gm In Sodium 50 Chloride 0.9% 50 ml @ 100 mls/hr IVPB Q8HR [facility] Rx# :[id number] Oral 240 Output: Urine 1500 1200 300 Other: Voiding Method External Catheter External Catheter External Catheter # Voids 2 - Constitutional General appearance: Present: obese - EENT Eyes: Absent: abnormal pupil - Neck Neck: Absent: lymphadenopathy - Respiratory Respiratory: bilateral: diminished - Cardiovascular Rhythm: irregularly irregular Heart sounds: normal: S1 Abnormal Heart Sounds: Absent: S3 Gallop - Gastrointestinal General gastrointestinal: Present: soft. Absent: tenderness - Neurologic Neurologic: Present: CNII-XII intact - Musculoskeletal Musculoskeletal: Present: generalized weakness - Psychiatric Psychiatric: Present: A&O x's 3 - Labs CBC & Chem 7: 03/16/21 06:23 03/16/21 06:23 Labs: Abnormal Lab Results - Last 24 Hours (Table) 03/16/21 03/16/21 03/16/21 Range/Units 06:23 06:23 06:23 RBC 3.88 L (4.40-5.60) X 10*6/uL Hgb 8.9 L (13.0-17.0) g/dL Hct 32.2 L (39.6-50.0) % MCH 22.9 L (27.0-32.0) pg MCHC 27.6 L (32.0-37.0) g/dL RDW 22.5 H (11.5-14.5) % Immature Gran # 0.05 H (0.00-0.04) X 10*3/uL Eosinophils # 0.48 H (0.04-0.35) X 10*3/uL PT 13.0 H (9.0-12.0) sec INR 1.3 H (<1.2) Carbon Dioxide 33.7 H (21.6-31.8) mmol/L BUN 61.0 H (9.0-27.0) mg/dL Creatinine 1.6 H (0.6-1.5) mg/dL Est GFR (CKD-EPI)AfAm 50.6 L (60.0-200.0) Est GFR (CKD-EPI)NonAf 43.6 L (60.0-200.0) BUN/Creatinine Ratio 38.13 H (12.00-20.00) Ratio Glucose 135 H (70-110) mg/dL Calcium 8.4 L (8.7-10.3) mg/dL Assessment and Plan (1) Acute on chronic systolic CHF (congestive heart failure) Current Visit: Yes Status: Acute Code(s): I50.23 - ACUTE ON CHRONIC SYSTOLIC (CONGESTIVE) HEART FAILURE SNOMED Code(s): 428801055 (2) Atrial fibrillation Current Visit: No Status: Acute Code(s): I48.91 - UNSPECIFIED ATRIAL FIBRILLATION SNOMED Code(s): 09923729 (3) Chronic venous hypertension (idiopathic) with ulcer and inflammation of bilateral lower extremity Current Visit: No Status: Acute Code(s): I87.333 - CHRONIC VENOUS HTN W ULCER AND INFLAM OF BILATERAL LOW EXTRM; L97.919 - NON-PRS CHRONIC ULC UNSP PRT OF R LOW LEG W UNSP SEVERITY; L97.929 - NON-PRS CHRONIC ULC UNSP PRT OF L LOW LEG W UNSP SEVERITY SNOMED Code(s): 037205596505796 (4) Edema extremities Current Visit: No Status: Acute Code(s): R60.0 - LOCALIZED EDEMA SNOMED Code(s): 249247764 (5) Generalized weakness Current Visit: No Status: Acute Code(s): R53.1 - WEAKNESS SNOMED Code(s): 81904726 (6) Hematoma of leg Current Visit: No Status: Acute Code(s): S80.10XA - CONTUSION OF UNSPECIFIED LOWER LEG, INITIAL ENCOUNTER SNOMED Code(s): 371133619 (7) Venous stasis ulcer of left lower extremity Current Visit: No Status: Acute Code(s): I83.029 - VARICOSE VEINS OF LEFT LOWER EXTREMITY W ULCER OF UNSP SITE SNOMED Code(s): 762156947 Plan: Wound care. Weakness and mobility issues. Underlying atrial fibrillation with heart failure. Discharge planning for probable placement. Anticipate discharge in the next 24 hours
[2021-03-16] MEDS: allopurinoL 300 MG TAB PO SCH (23:43)
[2021-03-16] MEDS: MAGNESIUM OXIDE 400 MG TAB PO SCH (23:43)
[2021-03-17 07:26] LABS: INR 1.5 (<1.2); Prothrombin Time 15.2 sec (9.0-12.0)
[2021-03-17] MEDS: POTASSIUM CHLORIDE ER 20 MEQ TAB.ER PO SCH (08:15)
[2021-03-17] MEDS: PANTOPRAZOLE 40 MG TABLET PO SCH (08:15)
[2021-03-17] MEDS: FUROSEMIDE 40 MG TAB PO SCH (08:15)
[2021-03-17] MEDS: TAMSULOSIN 0.4 MG CAP.ER.24H PO SCH (08:16)
[2021-03-17] MEDS: metOLazone 5 MG TAB PO SCH (08:16)
[2021-03-17] MEDS: SIMETHICONE 40 MG/0.6 ML DROPS 2,000 MG/30 ML BOTTLE PO SCH (08:19)
[2021-03-17] MEDS: IPRATROPIUM-ALBUTEROL 3 ML NEB INHALATION SCH ×2 (08:31→12:35)
--- NOTE | 2021-03-17 08:39 | P.DS ---
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 The patient was stabilized but developed element of right lower 70 hematoma. This was found after he had acute blood loss anemia related to peptic ulcer disease. He was placed on appropriate PPI after being scoped by surgery. The patient has had significant weakness and is difficult from an ambulatory perspective. He is noted close to his normal baseline. After evaluation with rehab, he will be transferred to outpatient rehab facility for appropriate treatment. This will be done once cleared by consultants. Coumadin was restarted and pro time will need to be checked in a couple days after discharge. This will need to be followed closely related the fact of the bleeding ulcer Patient Condition at Discharge: Stable Plan - Discharge Summary Discharge Rx Participant: No New Discharge Prescriptions: New Simethicone 40 mg/0.6 ml Drops [Mylicon Drops] 100 mg PO QID ml Pantoprazole [Protonix] 40 mg PO AC-BID #60 tab Furosemide [Lasix] 40 mg PO BID@0900,1600 #60 tab Continue Tamsulosin HCl [Flomax] 0.8 mg PO DAILY Isosorbide Mononitrate ER [Imdur] 30 mg PO DAILY allopurinoL [Zyloprim] 300 mg PO HS Potassium Chloride 20 meq PO BID-W/MEALS Naproxen 500 mg PO BID-W/MEALS Carvedilol [Coreg] 25 mg PO BID-W/MEALS metOLazone [Zaroxolyn] 5 mg PO DAILY lisinopriL [Zestril] 20 mg PO DAILY Digoxin [Lanoxin] 125 mcg PO DAILY SILVER sulfADIAZINE CREAM [Silvadene Cream] 1 applic TOPICAL DAILY Magnesium Oxide 400 mg PO HS Warfarin [Coumadin] 3 mg PO DAILY@1800 HYDROcodone/APAP 5-325MG [Cedar 5-325] 1 tab PO Q6HR PRN 3 Days #12 tab PRN Reason: Pain Albuterol Nebulized [Ventolin Nebulized] 2.5 mg INHALATION RT-Q6H PRN PRN Reason: Shortness Of Breath Discharge Medication List Isosorbide Mononitrate ER [Imdur] 30 mg PO DAILY 04/11/14 [History] Tamsulosin HCl [Flomax] 0.8 mg PO DAILY 04/11/14 [History] allopurinoL [Zyloprim] 300 mg PO HS 03/03/16 [History] Carvedilol [Coreg] 25 mg PO BID-W/MEALS 04/25/18 [History] Naproxen 500 mg PO BID-W/MEALS 04/25/18 [History] Potassium Chloride 20 meq PO BID-W/MEALS 04/25/18 [History] lisinopriL [Zestril] 20 mg PO DAILY 04/25/18 [History] metOLazone [Zaroxolyn] 5 mg PO DAILY 04/25/18 [History] Digoxin [Lanoxin] 125 mcg PO DAILY 06/09/18 [History] Magnesium Oxide 400 mg PO HS 12/29/20 [History] SILVER sulfADIAZINE CREAM [Silvadene Cream] 1 applic TOPICAL DAILY 12/29/20 [History] HYDROcodone/APAP 5-325MG [Cedar 5-325] 1 tab PO Q6HR PRN 3 Days #12 tab 01/02/21 [Rx] Albuterol Nebulized [Ventolin Nebulized] 2.5 mg INHALATION RT-Q6H PRN 02/27/21 [History] Warfarin [Coumadin] 3 mg PO DAILY@1800 02/27/21 [History] Furosemide [Lasix] 40 mg PO BID@0900,1600 #60 tab 03/17/21 [Rx] Pantoprazole [Protonix] 40 mg PO AC-BID #60 tab 03/17/21 [Rx] Simethicone 40 mg/0.6 ml Drops [Mylicon Drops] 100 mg PO QID ml 03/17/21 [Rx] Follow up Appointment(s)/Referral(s): Tamra Nuñez MD [STAFF PHYSICIAN] - 03/10/21 [facility], [NON-STAFF] - Wound Center,[facility] [NON-STAFF] - 1 Week (Patient needs to see Dr. Cisco Felipe in wound center on TuesdayMar 23. (PER DR FELIPE)) Patient Instructions/Handouts: Peptic Ulcer (DC), Diverticulosis (GEN), Diet for Stomach Ulcers and Gastritis (ED), Diverticulosis Diet (GEN), Colonoscopy (DC), Upper Endoscopy (DC) Activity/Diet/Wound Care/Special Instructions: Repeat colonoscopy 2 years, 2022 Discharge Disposition: TRANSFER TO SNF/ECF
[2021-03-17] MEDS: HYDROPHILIC CREAM 180 GM TUBE TOPICAL SCH (10:36)
[2021-03-17] MEDS: lisinopriL 20 MG TAB PO SCH (13:16)
[2021-03-17] MEDS: carvediloL 12.5 MG TAB PO SCH (13:16)
[2021-03-17] MEDS: DIGOXIN 125 MCG TAB PO SCH (13:16)
[2021-03-17 13:29] VITALS: BP 174/91; PULSE 103; RESP 22; TEMP 98
[2021-03-17] MEDS ORDERED: WARFARIN 5 MG TAB PO ONE (18:00)
== END 2021-03-17 13:59 | DRG 291 ==
LOC: EC 11:58 → 4SSUR 17:17
PROVIDERS: ADMIT Family Medicine; ATTEND Family Medicine
PROC: 30233N1 Transfusion of Nonautologous Red Blood Cells into Peripheral Vein, Percutaneous Approach (ICD-10-PCS; 2021-02-28)
PROC: 0DJ08ZZ Inspection of Upper Intestinal Tract, Via Natural or Artificial Opening Endoscopic (ICD-10-PCS; principal; 2021-03-02 12:40)
PROC: 0DJD8ZZ Inspection of Lower Intestinal Tract, Via Natural or Artificial Opening Endoscopic (ICD-10-PCS; 2021-03-02 12:40)
PROC: 0JCN3ZZ Extirpation of Matter from Right Lower Leg Subcutaneous Tissue and Fascia, Percutaneous Approach (ICD-10-PCS; 2021-03-10)
DX: I13.0 Hypertensive heart and chronic kidney disease with heart failure and stage 1 through stage 4 chronic kidney disease, or unspecified chronic kidney disease (principal); I50.23 Acute on chronic systolic (congestive) heart failure; K25.4 Chronic or unspecified gastric ulcer with hemorrhage; K22.11 Ulcer of esophagus with bleeding; Z68.41 Body mass index [BMI] 40.0-44.9, adult; D62 Acute posthemorrhagic anemia; I87.333 Chronic venous hypertension (idiopathic) with ulcer and inflammation of bilateral lower extremity; J44.1 Chronic obstructive pulmonary disease with (acute) exacerbation; J96.11 Chronic respiratory failure with hypoxia; Z20.822 Contact with and (suspected) exposure to COVID-19; F41.9 Anxiety disorder, unspecified; G47.33 Obstructive sleep apnea (adult) (pediatric); G56.03 Carpal tunnel syndrome, bilateral upper limbs; Z79.01 Long term (current) use of anticoagulants; E66.9 Obesity, unspecified; E87.6 Hypokalemia; I73.9 Peripheral vascular disease, unspecified; I87.2 Venous insufficiency (chronic) (peripheral); I87.8 Other specified disorders of veins; K21.9 Gastro-esophageal reflux disease without esophagitis; K44.9 Diaphragmatic hernia without obstruction or gangrene; T39.395A Adverse effect of other nonsteroidal anti-inflammatory drugs [NSAID], initial encounter; K31.9 Disease of stomach and duodenum, unspecified; K57.30 Diverticulosis of large intestine without perforation or abscess without bleeding; K64.8 Other hemorrhoids; N18.30 Chronic kidney disease, stage 3 unspecified; N40.0 Benign prostatic hyperplasia without lower urinary tract symptoms; M19.042 Primary osteoarthritis, left hand; M19.041 Primary osteoarthritis, right hand; N50.89 Other specified disorders of the male genital organs; Z91.19 Patient's noncompliance with other medical treatment and regimen; Z91.14 Patient's other noncompliance with medication regimen; Z87.891 Personal history of nicotine dependence; Z87.01 Personal history of pneumonia (recurrent); Z86.74 Personal history of sudden cardiac arrest; Z86.14 Personal history of Methicillin resistant Staphylococcus aureus infection; Z83.3 Family history of diabetes mellitus; Z79.899 Other long term (current) drug therapy; Z79.1 Long term (current) use of non-steroidal anti-inflammatories (NSAID); I48.0 Paroxysmal atrial fibrillation; R55 Syncope and collapse; S80.12XA Contusion of left lower leg, initial encounter; I42.8 Other cardiomyopathies; M10.9 Gout, unspecified; R26.9 Unspecified abnormalities of gait and mobility; I95.9 Hypotension, unspecified
CPT/HCPCS: 36415; 43235; 45378; 71046; 80048; 80053; 80162; 81003; 82272; 82330; 83540; 83550; 83605; 83735; 83880; 84132; 84484; 85025; 85027; 85379; 85610; 85730; 86850; 86900; 86901; 86920; 87635; 93005; 94640; 94664; 94760; 99285

== ENCOUNTER 2021-03-20 14:47 | Inpatient (IN) | payer MEDICARE, BC ==
[2021-03-20 16:14] LABS: INR 2.1 (<1.2); Prothrombin Time 20.4 sec (9.0-12.0)
[2021-03-20 16:15] LABS: Albumin 2.5 g/dL (3.5-5.0); Calcium 7.2 mg/dL (8.4-10.2); Magnesium 1.3 mg/dL (1.6-2.3); Potassium 3.4 mmol/L (3.5-5.1); Total Bilirubin 0.8 mg/dL (0.2-1.3); Total Protein 5.7 g/dL (6.3-8.2)
--- NOTE | 2021-03-20 16:24 | XR ---
EXAMINATION TYPE: XR chest 2V DATE OF EXAM: 03/20/2021 COMPARISON: Chest x-ray February 27, 2021 HISTORY: Chest pain and hypotension. TECHNIQUE: Frontal and lateral views of the chest are obtained. FINDINGS: There is mild cardiomegaly less prominent than prior study. No pleural effusion or pneumot horax seen bilaterally. Multifocal areas of increased opacity thought present on current study. Mode rate to advanced degenerative change of both shoulders. Underlying scoliotic curvature. Exaggerated t horacic kyphosis. IMPRESSION: Less prominent cardiomegaly. Subtle bilateral multifocal opacities, correlate clinically for possible covid-19 infection.
[2021-03-20 16:31] LABS: Appearance,Urine Clear (Clear); Bilirubin,Urine Negative (Negative); Blood,Urine Negative (Negative); Color,Urine Yellow; Glucose,Urine (UA) Negative (Negative); Ketones,Urine Negative (Negative); Leukocyte Esterase,Urine Negative (Negative); Nitrite,Urine Negative (Negative); Protein,Urine Negative (Negative); Specific Gravity,Urine 1.012 (1.001-1.035); Urobilinogen,Urine <2.0 mg/dL (<2.0)
[2021-03-20 16:44] LABS: Anisocytosis Moderate; Basophils % (A) 0 %; Eosinophils # (A) 0.3 k/uL (0-0.7); Eosinophils % (A) 7 %; HCT 27.2 % (39.0-53.0); HGB 8.6 gm/dL (13.0-17.5); Hypochromasia Marked; Lymphocytes # (A) 0.4 k/uL (1.0-4.8); Lymphocytes % (A) 11 %; MCH 26.1 pg (25.0-35.0); MCHC 31.5 g/dL (31.0-37.0); MCV 82.9 fL (80.0-100.0); Mean Platelet Volume 8.2; Microcytosis Slight; Monocytes # (A) 0.2 k/uL (0-1.0); Monocytes % (A) 6 %; Neutrophils # (A) 2.9 k/uL (1.3-7.7); Neutrophils % (A) 75 %; Platelet Count 222 k/uL (150-450); Poikilocytosis Slight; RBC 3.28 m/uL (4.30-5.90); RDW 21.6 % (11.5-15.5); WBC 3.9 k/uL (3.8-10.6)
[2021-03-20] MEDS ORDERED: SODIUM CHLORIDE 0.9% 500 ML 500 ML IV STA ×2 (17:07→17:33)
[2021-03-20] MEDS ORDERED: POTASSIUM CHLORIDE ER 20 MEQ TAB.ER PO STA (17:34)
[2021-03-20] MEDS ORDERED: MAGNESIUM SULFATE-D5W PMX 1 GM in DEXTROSE/WATER 1 100ML.BAG IVPB ONE (17:34)
[2021-03-20] MEDS ORDERED: NALOXONE 0.4 MG/ML 1 ML VIAL IV PRN (17:45)
[2021-03-20] MEDS ORDERED: MORPHINE SULFATE 4 MG/ML SYRINGE IV PRN (18:15)
[2021-03-20] MEDS ORDERED: ONDANSETRON 4 MG/2 ML VIAL IVP PRN (18:15)
[2021-03-20] MEDS ORDERED: bisacodyL 10 MG SUPP RECTAL PRN (18:17)
[2021-03-20] MEDS ORDERED: SODIUM CHLORIDE 0.9% 1,000 ML IV STA (18:17)
[2021-03-20] MEDS ORDERED: MAGNESIUM HYDROXIDE 2,400 MG/10 ML CUP PO PRN (18:17)
[2021-03-20] MEDS ORDERED: HYDROcodone/APAP 5-325MG 1 EACH TAB PO PRN (18:17)
[2021-03-20] MEDS ORDERED: ASPIRIN 81 MG PO STA (18:42)
[2021-03-20] MEDS ORDERED: Magnesium Replacement Protocol 1 EACH MISC MISCELLANE PRN (20:43)
[2021-03-20] MEDS ORDERED: Potassium Replacement Protocol 1 EACH MISC MISCELLANE PRN (20:43)
[2021-03-20] MEDS ORDERED: NA PHOS,M-B/NA PHOS,DI-BA 133 ML ENEMA RECTAL PRN (20:43)
[2021-03-20] MEDS: allopurinoL 300 MG TAB PO SCH (20:57)
[2021-03-20] MEDS: MAGNESIUM OXIDE 400 MG TAB PO SCH (20:57)
[2021-03-20] MEDS: SIMETHICONE 40 MG/0.6 ML DROPS 2,000 MG/30 ML BOTTLE PO SCH (21:19)
--- NOTE | 2021-03-20 22:05 | HP ---
HISTORY AND PHYSICAL I am covering for Dr. Modi. DATE OF SERVICE: 03/20/2021 CHIEF COMPLAINT: Reason for admission is syncope as well as cellulitis of the legs. HISTORY OF PRESENT ILLNESS: This 70-year-old gentleman with a past medical history of multiple medical problems, including atrial fibrillation, CHF, COPD, hypertension, DJD, history of pneumonia, history of prostate disorder, being followed Dr. Modi in the outpatient setting, was recently admitted with acute on chronic CHF, acute exacerbation, atrial fibrillation and multiple other medical problems. Patient was sent to a intermediate and the patient apparently had a syncopal episode which was witnessed and the patient was taken to [facility], admitted for further evaluation and treatment. The patient had extensive ulcerations of the legs, which are bandaged. Some are bleeding also at this time. Grade 1-2 ulcers are noted bilaterally in the legs. There is no history of any fever, rigors or chills. No history of headache, loss of consciousness, seizures. The previous cultures showed multiple organisms, including Enterobacter cloacae and Staph aureus. PAST MEDICAL HISTORY: History of atrial ablation, CHF, COPD, hypertension, previous history of pneumonia, history of prostate disorder. MEDICATIONS: Home medications are Imdur ER, milk of magnesia, [place], Dulcolax, Fleet's enema, Ventolin, Mysoline, Protonix, Naprosyn, Lasix, Coumadin, Coreg. Doses are reviewed. ALLERGIES: NONE. FAMILY HISTORY: History of dementia in the family. SOCIAL HISTORY: Previous history of smoking. No current smoking or alcohol intake. REVIEW OF SYSTEMS: ENT: Diminished hearing. Diminished vision. CARDIOVASCULAR SYSTEM: As mentioned earlier. RESPIRATORY SYSTEM: As mentioned earlier. GI: No nausea, vomiting, diarrhea. : No dysuria. NERVOUS SYSTEM: No numbness, weakness. ALLERGY/IMMUNOLOGY: No asthma or hay fever. MUSCULOSKELETAL: As mentioned earlier. HEMATOLOGY/ONCOLOGY: No history of anemia. ENDOCRINE: As mentioned earlier. CONSTITUTIONAL: As mentioned earlier. DERMATOLOGY: Negative. RHEUMATOLOGY: Negative. PSYCHIATRY: As mentioned earlier. PHYSICAL EXAMINATION: Patient alert and oriented x2. Pulse is 72, blood pressure 128/79, respiration 20, temperature 97.8, pulse ox 94% on room air. HEENT: Conjunctivae normal. NECK: No jugular venous distention. CARDIOVASCULAR: S1, S2 muffled. RESPIRATION: Breath sounds diminished at the bases. A few scattered rhonchi and crackles. ABDOMEN: Soft, obese, non-tender. No mass palpable. LEGS: Bilateral leg cellulitis and bleeding ulcerations, grade 2 to 3, present on both sides. Pulses are diminished bilaterally. Thickened skin also present. NERVOUS SYSTEM: Higher functions as mentioned earlier. Moves all 4 limbs. Diffusely weak. LYMPHATICS: No lymph node palpable in neck, axillae or groin. SKIN: As mentioned earlier. JOINTS: No active deforming arthropathy. LABS: Labs at this time show WBC 3.2, hemoglobin is 8.6. INR is 2.1. Potassium 3.4 and troponin 0.038. The previous troponins were fluctuating also. ASSESSMENT: 1. Syncope for evaluation, possibly vasovagal. 2. Bilateral leg ulcers with failure of outpatient treatment. 3. Chronic kidney disease, stage 3. 4. Anemia, normocytic anemia of chronic disease. 5. Hypokalemia. 6. Hypomagnesemia. 7. Troponin 0.038, indeterminate, of rather chronic intermittent nature. 8. Hypoalbuminemia with mild protein-calorie malnutrition. 9. Atrial fibrillation. 10.History of congestive heart failure. 11.Chronic obstructive pulmonary disease. 12.Hypertension. 13.History of degenerative joint disease. 14.History of pneumonia. 15.History of prostate disorder. 16.History of sleep apnea. 17.History of nonischemic cardiomyopathy. 18.History of cardiac valve disease. 19.History of obstructive sleep apnea. 20.Chronic hypoxic respiratory failure, on home oxygen. 21.History of carpal tunnel syndrome. 22.History of bilateral hand tremors. 23.Gait dysfunction. 24.History of peripheral vascular disease. 25.Benign prostatic hypertrophy. 26.History of MRSA. 27.History of cardiac catheterization. 28.Remote history of nicotine dependence. 29.History of anxiety. 30.FULL CODE. RECOMMENDATIONS AND DISCUSSION: I recommend to continue current medications, continue with symptomatic treatment. Otherwise at this time I recommend broad-spectrum IV antibiotics and also infectious disease evaluation and cultures. Monitor blood pressure closely. Resume the home medications. Orthostatic vitals. Cardiology and Infectious Disease will be consulted. Prognosis is guarded because of multiple complex medical issues. PT/OT to work with the patient. Prognosis guarded. Further recommendations to follow. A copy of this dictation is being forwarded to Dr. Modi, who is the primary physician. MMODL / IJN: [id number] / [id number]
--- NOTE | 2021-03-20 23:43 | ED ---
General Adult HPI - General Chief complaint: Syncope Stated complaint: hypotension Time Seen by Provider: 03/20/21 15:12 Source: patient, EMS Mode of arrival: EMS Limitations: no limitations - History of Present Illness Initial comments: I evaluated the patient when he was placed in a room. Patient is a 70-year-old male with past medical history remarkable for atrial fibrillation, heart failure, COPD, hypertension, prostate disorder, recent concern for GI bleed as well as bilateral leg hematomas, chronic leg sores and concern for cellulitis currently being treated presents from a nursing facility for syncopal episode. Patient was eating dinner when he was told he "passed out." Nursing staff at the facility stated that he had a lower blood pressure which is since resolved after receiving the fluid bolus by EMS. Patient states he believes this was only momentary as he denies any confusion. He does not remember the episode. He was sitting up when this happened. Did not injure himself rate his head. Denies any chest pain, shortness breath, fevers, chills, sick contacts, abdominal pain, nausea, vomiting. He otherwise has no acute complaints at this time. Denies any urinary complaints either. States she is no longer on blood thinners due to the prior history of bleeding. Patient presents over concern for his syncopal episode. Denies any history of seizures. Did not bite his tongue. Denies any urinary incontinence. Denies any fevers, chills, sick contacts. - Related Data Home Medications Medication Instructions Recorded Confirmed Isosorbide Mononitrate ER [Imdur] 30 mg PO DAILY@0800 04/11/14 03/20/21 Tamsulosin HCl [Flomax] 0.8 mg PO DAILY@0800 04/11/14 03/20/21 allopurinoL [Zyloprim] 300 mg PO HS@2100 03/03/16 03/20/21 Carvedilol [Coreg] 25 mg PO BID@0800,1700 04/25/18 03/20/21 Naproxen 500 mg PO BID@0800,1700 04/25/18 03/20/21 Potassium Chloride 20 meq PO BID@0800,1700 04/25/18 03/20/21 lisinopriL [Zestril] 20 mg PO DAILY@0800 04/25/18 03/20/21 metOLazone [Zaroxolyn] 5 mg PO DAILY@0600 04/25/18 03/20/21 Digoxin [Lanoxin] 125 mcg PO DAILY@0800 06/09/18 03/20/21 Magnesium Oxide 400 mg PO HS@2100 12/29/20 03/20/21 SILVER sulfADIAZINE CREAM 1 applic TOPICAL DAILY@0800 12/29/20 03/20/21 [Silvadene Cream] Albuterol Nebulized [Ventolin 2.5 mg INHALATION RT-Q6H PRN 02/27/21 03/20/21 Nebulized] Warfarin [Coumadin] 3 mg PO SUMOWETHFR 02/27/21 03/20/21 Ferrous Sulfate [Feosol] 325 mg PO DAILY@0800 03/20/21 03/20/21 Furosemide [Lasix] 40 mg PO BID@0800,1700 03/20/21 03/20/21 Liquacel 30 ml PO BID@0800,1700 03/20/21 03/20/21 Magnesium Hydroxide [Milk of 2,400 mg PO DAILY PRN 03/20/21 03/20/21 Magnesia] Na Phos,M-B/Na Phos,Di-Ba [Fleet 133 ml RECTAL DAILY PRN 03/20/21 03/20/21 Adult] Pantoprazole [Protonix] 40 mg PO BID@0800,1700 03/20/21 03/20/21 Simethicone 40 mg/0.6 ml Drops 100 mg PO QID@08,12,17,03/20/21 03/20/21 [Mylicon Drops] Warfarin 4.5mg 4.5 mg PO TUSA 03/20/21 03/20/21 bisacodyL [Dulcolax] 10 mg RECTAL DAILY PRN 03/20/21 03/20/21 Previous Rx's Medication Instructions Recorded HYDROcodone/APAP 5-325MG [Onset 1 tab PO Q6HR PRN 3 Days #12 tab 03/17/21 5-325] Allergies Allergy/AdvReac Type Severity Reaction Status Date / Time No Known Allergies Allergy Verified 03/20/21 16:25 Review of Systems ROS Statement: Those systems with pertinent positive or pertinent negative responses have been documented in the HPI. Review of Systems: CONST: Denies fever EYES: Denies blurry vision ENT: Denies nasal congestion C/V: Denies Chest pain RESP: Denies shortness of breath GI: Denies abdominal pain : Denies dysuria SKIN: Denies rash. MSK: Denies joint pain. NEURO: Denies headache ROS Other: All systems not noted in ROS Statement are negative. Past Medical History Past Medical History: Atrial Fibrillation, Heart Failure, COPD, Hypertension, Osteoarthritis (OA), Pneumonia, Prostate Disorder, Renal Disease, Sleep Apnea/CPAP/BIPAP, Vascular Disorder Additional Past Medical History / Comment(s): Nonischemic cardiomyopathy, cardiac valve disease, bronchitis, JIMMIE with Cpap and O2 at 2L at hs, past decreased renal function, arthritis bilateral hands/knees, gout bilateral feet, numbness bilateral legs/feet, carpal tunnel syndrome bilaterally, bilateral hand tremors, nonhealing bilateral lower leg wounds/cellulitis, varicosities, lower leg/pedal edema, PVD, BPH. History of Any Multi-Drug Resistant Organisms: MRSA Date of last positivie culture/infection: 08/30/12 MDRO Source:: LEG(not sure which) Past Surgical History: Heart Catheterization Additional Past Surgical History / Comment(s): Split thickness skin graft to L leg, bronchoscopy, cyst and partial jaw removed/has screws, oral surgery age 8- too many teeth. Past Anesthesia/Blood Transfusion Reactions: Previous Problems w/ Anesthesia Additional Past Anesthesia/Blood Transfusion Reaction / Comment(s): STATED DURING BRONCH STOPPED BREATHING, (brochoscopy done at [facility]-record on chart) Past Psychological History: Anxiety Additional Psychological History / Comment(s): Pt resides with his spouse, daughter and grandchild. He uses a walker. He has a Cpap/oxygen at home. Smoking Status: Never smoker Past Alcohol Use History: None Reported Additional Past Alcohol Use History / Comment(s): Pt started smoking cigars on occasion in 1981 and quit in 2019 Past Drug Use History: None Reported - Past Family History Father Family Medical History: Dementia, Eye Disorder Additional Family Medical History / Comment(s): MACULAR DEGENERATION Mother Family Medical History: Diabetes Mellitus, Eye Disorder, Vascular Disorder Additional Family Medical History / Comment(s): ANEURYSMS, CATARACTS. General Exam - General Exam Comments Initial Comments: General: Appears in no acute distress. HEAD: Normal with no signs of head trauma. EYES: PERRLA, EOMI, conjunctiva normal, no discharge. Pupils are 3 mm and equal bilaterally. ENT: Hearing grossly intact, normal oropharynx. RESPIRATORY: Clear breath sounds bilaterally. No wheezes, rales, or rhonchi. C/V: Irregular rate and rhythm. S1 and S2 auscultated, no edema, peripheral pulses 2+ and intact throughout ABD: Abd is soft, nontender, nondistended EXT: Normal range of motion, no obvious deformity SKIN: Appears to be bilateral venous stasis sores/ulcers which are being managed by wound care. Patient states that they appear chronic to him and unchanged. He was on antibiotics. Denies any worsening discharge or pain. NEURO: Alert and oriented 4. No focal deficits. Cranial nerves II through XII are intact. Cerebellar function is intact as evident by normaltesting. I did not ambulate the patient. GCS is 15. NIH scale is Limitations: no limitations Course Vital Signs 03/20/21 03/20/21 03/20/21 14:49 17:40 18:59 Temperature 98.8 F 97.8 F Pulse Rate 72 78 72 Respiratory 20 20 20 Rate Blood Pressure 130/81 123/69 128/79 O2 Sat by Pulse 100 97 Oximetry Medical Decision Making - Medical Decision Making Based on the patient's presentation and physical exam, I'm concerned for cardiac etiology for simple episode. We will obtain a broad workup, including troponin, basic labs, urinalysis, Covid 19 screening. EKG and chest x-ray will also be o btained. He'll be connected to continuous cardiac monitoring as well. Patient was in agreement this plan. Patient's EKG showed no signs of acute ischemia but chronic atrial fibrillation. Chest x-ray reveals subtle bilateral opacities, concerning for possible Covid 19 pneumonia. COVID-19 swab is negative. Laboratory studies are remarkable for an elevated BUN/creatinine the setting of CK D. He is mildly hypomagnesemic and hypokalemic which I replenished. Patient has a normocytic anemia with a hemoglobin of 8.6 which is his baseline. He does not have a leukocytosis or elevated white count at this time. Patient's initial troponin is 0.038 which could be secondary to his CK D. Urinalysis is unremarkable. COVID-19 swab is negative. I discussed with the patient that I would like to admit him to the hospital for evaluation. I consult to cardiology Dr. Grimes who was in agreement with the plan. We will hold his anticoagulation at this time due to his prior history of bleeding. I discussed this with the patient's PCP who I contacted, Dr. Modi, who was in agreement this plan. Patient was evaluated by the admitting team, Dr. Bunch, who was covering for Rian would like to obtain further wound cultures for his chronic ulcers and start him on broad-spectrum antibiotics whic h is reasonable. Patient will therefore be admitted in serous condition to telemetry bed for further evaluation. - Lab Data Result diagrams: 03/20/21 15:57 03/20/21 15:57 Lab Results 03/20/21 03/20/21 03/20/21 Range/Units 15:57 15:57 15:57 WBC 3.9 (3.8-10.6) k/uL RBC 3.28 L (4.30-5.90) m/uL Hgb 8.6 L (13.0-17.5) gm/dL Hct 27.2 L (39.0-53.0) % MCV 82.9 (80.0-100.0) fL MCH 26.1 (25.0-35.0) pg MCHC 31.5 (31.0-37.0) g/dL RDW 21.6 H (11.5-15.5) % Plt Count 222 (150-450) k/uL MPV 8.2 Neutrophils % 75 % Lymphocytes % 11 % Monocytes % 6 % Eosinophils % 7 % Basophils % 0 % Neutrophils # 2.9 (1.3-7.7) k/uL Lymphocytes # 0.4 L (1.0-4.8) k/uL Monocytes # 0.2 (0-1.0) k/uL Eosinophils # 0.3 (0-0.7) k/uL Basophils # 0.0 (0-0.2) k/uL Hypochromasia Marked Poikilocytosis Slight Anisocytosis Moderate Microcytosis Slight PT 20.4 H (9.0-12.0) sec INR 2.1 H (<1.2) APTT 29.0 (22.0-30.0) sec Sodium (137-145) mmol/L Potassium (3.5-5.1) mmol/L Chloride (98-107) mmol/L Carbon Dioxide (22-30) mmol/L Anion Gap mmol/L BUN (9-20) mg/dL Creatinine (0.66-1.25) mg/dL Est GFR (CKD-EPI)AfAm (>60 ml/min/1.73 sqM) Est GFR (CKD-EPI)NonAf (>60 ml/min/1.73 sqM) Glucose (74-99) mg/dL Calcium (8.4-10.2) mg/dL Magnesium (1.6-2.3) mg/dL Total Bilirubin (0.2-1.3) mg/dL AST (17-59) U/L ALT (4-49) U/L Alkaline Phosphatase (38-126) U/L Troponin I (0.000-0.034) ng/mL Total Protein (6.3-8.2) g/dL Albumin (3.5-5.0) g/dL Urine Color Yellow Urine Appearance Clear (Clear) Urine pH 6.0 (5.0-8.0) Ur Specific [place] 1.012 (1.001-1.035) Urine Protein Negative (Negative) Urine Glucose (UA) Negative (Negative) Urine Ketones Negative (Negative) Urine Blood Negative (Negative) Urine Nitrite Negative (Negative) Urine Bilirubin Negative (Negative) Urine Urobilinogen <2.0 (<2.0) mg/dL Ur Leukocyte Esterase Negative (Negative) Coronavirus (PCR) (Not Detectd) 03/20/21 03/20/21 03/20/21 Range/Units 15:57 15:57 16:52 WBC (3.8-10.6) k/uL RBC (4.30-5.90) m/uL Hgb (13.0-17.5) gm/dL Hct (39.0-53.0) % MCV (80.0-100.0) fL MCH (25.0-35.0) pg MCHC (31.0-37.0) g/dL RDW (11.5-15.5) % Plt Count (150-450) k/uL MPV Neutrophils % % Lymphocytes % % Monocytes % % Eosinophils % % Basophils % % Neutrophils # (1.3-7.7) k/uL Lymphocytes # (1.0-4.8) k/uL Monocytes # (0-1.0) k/uL Eosinophils # (0-0.7) k/uL Basophils # (0-0.2) k/uL Hypochromasia Poikilocytosis Anisocytosis Microcytosis PT (9.0-12.0) sec INR (<1.2) APTT (22.0-30.0) sec Sodium 140 (137-145) mmol/L Potassium 3.4 L (3.5-5.1) mmol/L Chloride 106 (98-107) mmol/L Carbon Dioxide 26 (22-30) mmol/L Anion Gap 8 mmol/L BUN 70 H (9-20) mg/dL Creatinine 1.72 H (0.66-1.25) mg/dL Est GFR (CKD-EPI)AfAm 46 (>60 ml/min/1.73 sqM) Est GFR (CKD-EPI)NonAf 40 (>60 ml/min/1.73 sqM) Glucose 238 H (74-99) mg/dL Calcium 7.2 L (8.4-10.2) mg/dL Magnesium 1.3 L (1.6-2.3) mg/dL Total Bilirubin 0.8 (0.2-1.3) mg/dL AST 27 (17-59) U/L ALT 9 (4-49) U/L Alkaline Phosphatase 136 H (38-126) U/L Troponin I 0.038 H* (0.000-0.034) ng/mL Total Protein 5.7 L (6.3-8.2) g/dL Albumin 2.5 L (3.5-5.0) g/dL Urine Color Urine Appearance (Clear) Urine pH (5.0-8.0) Ur Specific [place] (1.001-1.035) Urine Protein (Negative) Urine Glucose (UA) (Negative) Urine Ketones (Negative) Urine Blood (Negative) Urine Nitrite (Negative) Urine Bilirubin (Negative) Urine Urobilinogen (<2.0) mg/dL Ur Leukocyte Esterase (Negative) Coronavirus (PCR) Not Detected (Not Detectd) - EKG Data -: EKG Interpreted by Me EKG Comments: 12-lead Electrocardiogram Interpretation Note EKG was reviewed and interpreted by myself. 12-lead ECG performed at 1448 is interpreted by me as revealing atrial fibrillation, rate controlled at a rate of 72 beats per minute. Ozan is normal. ME interval is unobtainable, QR catholic is 144 ms, QTc is 462 ms.. There were no ST or T wave abnormalities to suggest myocardial ischemia or injury. R wave progression across the precordium was satisfactory. By my interpretation this EKG is non-diagnostic for acute ischemia. Disposition Clinical Impression: Syncope, Dehydration, History of atrial fibrillation, Venous stasis of both lower extremities, Sore on leg, Hypokalemia, Hypomagnesemia, CKD (chronic kidney disease), Elevated troponin, Debility Disposition: ADMITTED IP TO THIS HOSP Condition: Serious
[2021-03-21] MEDS: metOLazone 5 MG TAB PO SCH (05:58)
[2021-03-21] MEDS: ALBUTEROL NEBULIZED 2.5 MG/3 ML INHALATION PRN (07:59)
[2021-03-21] MEDS ORDERED: NON FORMULARY DRUG (Liquacel 30 ML) PO SCH (08:00)
[2021-03-21 09:12] LABS: Prothrombin Time 19.5 sec (9.0-12.0)
--- NOTE | 2021-03-21 09:19 | P.CRDCN ---
History of Present Illness Consult date: 03/21/21 Consult reason: non-Q-wave NE History of present illness: HISTORY OF PRESENT ILLNESS This is a 70-year-old male patient of Dr. Pendleton with history of chronic atrial fibrillation, COPD, hypertension and chronic systolic heart failure, nonischemic cardiomyopathy. Patient was recently hospitalized for heart failure along with anemia and acute blood loss and upper endoscopy found gastric ulceration. Patient also developed hematoma to his right lower extremity which was friable and had significant blood loss and Coumadin was placed on hold temporarily. He was discharged from the hospital on 03/18 to subacute rehab. Echocardiogram completed 12/30/2020 revealed EF of 45-50%, possible PFO, mild aortic valve sclerosis, mild aortic regurgitation, mild mitral regurgitation, mild tricuspid regurgitation, moderate pulmonary hypertension. Patient gives history that he was sitting eating lunch and had sudden episode of passing out which was witnessed by staff. He states initially he started feeling a little funny with a little lightheadedness and has since had a sour stomach feeling. He now feels very tired. He denies any nausea or vomiting and no chest pain or palpitations. Patient was apparently found to be hypotensive and received IV fluids by EMS. He denies having any fever or chills and no history of seizure disorder. Patient denies having any symptoms at this time. Patient is nonweightbearing. Patient was brought into [facility] emergency center for evaluation and found to be afebrile, heart rate in the 70s, blood pressure 130/81, pulse ox 100% on room air. 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 Heart rate has been running in the 70s. Troponins 0.038, 0.040, 0.050. Other lab work revealed hemoglobin of 8.6, INR 2.1, potassium 3.4, BUN 70 creatinine 1.72. Blood sugar was 238. Magnesium 1.3. Coated 19 not detected. Urinalysis negative for infection. Potassium and magnesium have been replaced and patient is status post an additional 1 L of IV fluids. Hemoglobin is stable from last admission. REVIEW OF SYSTEMS Constitutional: No fever, no chills. Chronic weakness, chronic fatigue no lethargy. EENT: No headache. Brief episode of lightheadedness and dizziness subsequently resolved. Lungs: No shortness of breath, cough, no sputum production. No wheezing. Cardiovascular: No chest pain, no lower extremity edema. No palpitations. No paroxysmal nocturnal dyspnea. No orthopnea. No lightheadedness or dizziness. No syncopal episodes. Abdominal: No abdominal pain. No nausea, vomiting. No diarrhea. No constipation. No bloody or tarry stools.. No loss of appetite. Genitourinary: No dysuria.. No urinary retention. Musculoskeletal: No myalgias. No muscle weakness, no gait dysfunction, no f requent falls. No back pain. No neck pain. Integumentary: Chronic lower extremity wounds, no lesions. No rash or pruritus. No unusual bruising. Neurologic: No aphasia. No facial droop. No change in mentation. No head injury. No headache. No paralysis. No paresthesia. Psychiatric: No depression. No anxiety. Endocrine: Noted abnormal blood sugars. PHYSICAL EXAMINATION Gen: This is a 70-year-old male. He is resting in bed and appears comfortable and in no acute distress VS: Afebrile, heart rate in the 60s, blood pressure 143/75, pulse ox 96% on room air. Cardiac monitors atrial fibrillation with controlled rate in the 70s with PVCs and pairs. HEENT: Head is atraumatic, normocephalic. Pupils equal, round. Sclerae is anicteric. NECK: Supple. No JVD. No lymphadenopathy. No thyromegaly. LUNGS: Clear to auscultation. No wheezes or rhonchi. No intercostal retractions. HEART: Irregular heart rhythm. No murmur. ABDOMEN: Soft. Bowel sounds are present. No masses. No tenderness. EXTREMITIES: No pedal edema. No calf tenderness. Dressings with Kahlil wraps to the bilateral lower extremities not removed for evaluation NEUROLOGICAL: Patient is awake, alert and oriented x3. Cranial nerves 2 through 12 are grossly intact. ASSESSMENT Syncopal episode most likely due to hypotension. Elevated troponin secondary to renal failure Hypokalemia, hypomagnesemia status post replacement Chronic atrial fibrillation with controlled rate Chronic systolic heart failure, stable COPD Hypertension Recent GI bleed and hematoma right lower extremity PLAN Patient has been resumed on his cardiac medications which will be continued No need to repeat echocardiogram Orthostatic vital signs with supine and sitting only Further recommendations to follow based upon clinical course Thank you kindly for this consultation. Nurse practitioner note has been reviewed, I agree with documented findings and plan of care. Patient was seen and examined. Past Medical History Past Medical History: Atrial Fibrillation, Heart Failure, COPD, Hypertension, Osteoarthritis (OA), Pneumonia, Prostate Disorder, Renal Disease, Sleep Apnea/CPAP/BIPAP, Vascular Disorder Additional Past Medical History / Comment(s): Nonischemic cardiomyopathy, cardiac valve disease, bronchitis, JIMMIE with Cpap and O2 at 2L at hs, past decreased renal function, arthritis bilateral hands/knees, gout bilateral feet, numbness bilateral legs/feet, carpal tunnel syndrome bilaterally, bilateral hand tremors, nonhealing bilateral lower leg wounds/cellulitis, varicosities, lower leg/pedal edema, PVD, BPH. History of Any Multi-Drug Resistant Organisms: MRSA Date of last positivie culture/infection: 08/30/12 MDRO Source:: LEG(not sure which) Past Surgical History: Heart Catheterization Additional Past Surgical History / Comment(s): Split thickness skin graft to L leg, bronchoscopy, cyst and partial jaw removed/has screws, oral surgery age 8- too many teeth. Past Anesthesia/Blood Transfusion Reactions: Previous Problems w/ Anesthesia Additional Past Anesthesia/Blood Transfusion Reaction / Comment(s): STATED DURING BRONCH STOPPED BREATHING, (brochoscopy done at [facility]-record on chart) Past Psychological History: Anxiety Additional Psychological History / Comment(s): Pt resides with his spouse, daughter and grandchild. He uses a walker. He has a Cpap/oxygen at home. Smoking Status: Never smoker Past Alcohol Use History: None Reported Additional Past Alcohol Use History / Comment(s): Pt started smoking cigars on occasion in 1981 and quit in 2019 Past Drug Use History: None Reported - Past Family History Father Family Medical History: Dementia, Eye Disorder Additional Family Medical History / Comment(s): MACULAR DEGENERATION Mother Family Medical History: Diabetes Mellitus, Eye Disorder, Vascular Disorder Additional Family Medical History / Comment(s): ANEURYSMS, CATARACTS. Medications and Allergies Home Medications Medication Instructions Recorded Confirmed Type Isosorbide Mononitrate ER [Imdur] 30 mg PO DAILY@0800 04/11/14 03/20/21 History Tamsulosin HCl [Flomax] 0.8 mg PO DAILY@0800 04/11/14 03/20/21 History allopurinoL [Zyloprim] 300 mg PO HS@2100 03/03/1621 History Carvedilol [Coreg] 25 mg PO BID@0800,1700 04/25/18 03/20/21 History Naproxen 500 mg PO BID@0800,1700 04/25/18 03/20/21 History Potassium Chloride 20 meq PO BID@0800,1700 04/25/18 03/20/21 History lisinopriL [Zestril] 20 mg PO DAILY@0800 04/25/18 03/20/21 History metOLazone [Zaroxolyn] 5 mg PO DAILY@0600 04/25/18 03/20/21 History Digoxin [Lanoxin] 125 mcg PO DAILY@0800 06/09/18 03/20/21 History Magnesium Oxide 400 mg PO HS@209912/29/20 03/20/21 History SILVER sulfADIAZINE CREAM 1 applic TOPICAL DAILY@79912/29/20 03/20/21 History [Silvadene Cream] Albuterol Nebulized [Ventolin 2.5 mg INHALATION RT-Q6H PRN 02/27/21 03/20/21 History Nebulized] Warfarin [Coumadin] 3 mg PO SUMOWETHFR 02/27/21 03/20/21 History HYDROcodone/APAP 5-325MG [[place] 1 tab PO Q6HR PRN 3 Days #12 tab 03/17/21 03/20/21 Rx 5-325] Ferrous Sulfate [Feosol] 325 mg PO DAILY@0800 03/20/21 03/20/21 History Furosemide [Lasix] 40 mg PO BID@0800,1700 03/20/21 03/20/21 History Liquacel 30 ml PO BID@0800,17003/20/21 03/20/21 History Magnesium Hydroxide [Milk of 2,400 mg PO DAILY PRN 03/20/21 03/20/21 History Magnesia] Na Phos,M-B/Na Phos,Di-Ba [Fleet 133 ml RECTAL DAILY PRN 03/20/21 03/20/21 History Adult] Pantoprazole [Protonix] 40 mg PO BID@0800,1700 03/20/21 03/20/21 History Simethicone 40 mg/0.6 ml Drops 100 mg PO QID@08,12,,21 03/20/21 03/20/21 History [Mylicon Drops] Warfarin 4.5mg 4.5 mg PO TUSA 03/20/21 03/20/21 History bisacodyL [Dulcolax] 10 mg RECTAL DAILY PRN 03/20/21 03/20/21 History Allergies Allergy/AdvReac Type Severity Reaction Status Date / Time No Known Allergies Allergy Verified 03/20/21 16:25 Physical Exam Vitals: Vital Signs Temp Pulse Pulse Resp BP BP Pulse Ox 03/21/21 08:10 62 16 03/21/21 07:59 61 16 96 03/21/21 04:00 69 18 143/75 96 03/21/21 00:00 68 18 137/79 92 L 03/20/21 20:00 97.7 F 73 18 136/61 98 03/20/21 18:59 97.8 F 72 20 128/79 03/20/21 17:40 78 20 123/69 97 03/20/21 14:49 98.8 F 72 20 130/81 100 Intake and Output 03/20/21 03/21/21 03/21/21 22:59 06:59 14:59 Intake Total 485 535 Output Total 900 Balance 485 -365 Intake: Intake, IV Titration 50 Amount ceFAZolin 2 gm In Sodium 50 Chloride 0.9% 50 ml @ 100 mls/hr IVPB Q8HR [facility] Rx# :[id number] Oral 485 485 Output: Urine 900 Other: Voiding Method Diaper Diaper External Catheter External Catheter # Voids 1 Weight 104.326 kg 78.5 kg Results 03/21/21 07:54 03/21/21 07:54 Cardiac Enzymes 03/20/21 03/20/21 03/20/21 Range/Units 15:57 15:57 20:35 AST 27 (17-59) U/L Troponin I 0.038 H* 0.040 H* (0.000-0.034) ng/mL 03/21/21 Range/Units 00:26 AST (17-59) U/L Troponin I 0.050 H* (0.000-0.034) ng/mL Coagulation 03/20/21 Range/Units 15:57 PT 20.4 H (9.0-12.0) sec APTT 29.0 (22.0-30.0) sec CBC 03/20/21 Range/Units 15:57 WBC 3.9 (3.8-10.6) k/uL RBC 3.28 L (4.30-5.90) m/uL Hgb 8.6 L (13.0-17.5) gm/dL Hct 27.2 L (39.0-53.0) % Plt Count 222 (150-450) k/uL Comprehensive Metabolic Panel 03/20/21 Range/Units 15:57 Sodium 140 (137-145) mmol/L Potassium 3.4 L (3.5-5.1) mmol/L Chloride 106 (98-107) mmol/L Carbon Dioxide 26 (22-30) mmol/L BUN 70 H (9-20) mg/dL Creatinine 1.72 H (0.66-1.25) mg/dL Glucose 238 H (74-99) mg/dL Calcium 7.2 L (8.4-10.2) mg/dL AST 27 (17-59) U/L ALT 9 (4-49) U/L Alkaline Phosphatase 136 H (38-126) U/L Total Protein 5.7 L (6.3-8.2) g/dL Albumin 2.5 L (3.5-5.0) g/dL Current Medications Generic Name Dose Route Start Last Admin Trade Name Freq PRN Reason Stop Dose Admin Hydrocodone Bitart/Acetaminophen 1 each 03/20/21 18:17 Hydrocodone/Apap 5-325mg 1 Each Tab PO Q6HR PRN Pain Albuterol Sulfate 2.5 mg 03/20/21 18:17 03/21/21 07:59 Albuterol Nebulized 2.5 Mg/3 Ml INHALATION 2.5 mg RT-Q6H PRN Administration Shortness Of Breath Allopurinol 300 mg 03/20/21 21:00 03/20/21 20:57 Allopurinol 300 Mg Tab PO 300 mg HS@2100 JULIEN Administration Bisacodyl 10 mg 03/20/21 18:17 Bisacodyl 10 Mg Supp RECTAL DAILY PRN Constipation Carvedilol 25 mg 03/21/21 08:00 Carvedilol 12.5 Mg Tab PO BID@0800,1700 [facility] Digoxin 125 mcg 03/21/21 08:00 Digoxin 125 Mcg Tab PO DAILY@0800 [facility] Ferrous Sulfate 325 mg 03/21/21 08:00 Ferrous Sulfate 325 Mg Tab PO DAILY@0800 [facility] Furosemide 40 mg 03/21/21 08:00 Furosemide 40 Mg Tab PO BID@0800,1700 [facility] Sodium Chloride 1,000 mls @ 50 mls/hr 03/20/21 18:17 03/20/21 20:17 Saline 0.9% IV 03/21/21 14:16 50 mls/hr .Q20H STA Administration Cefazolin Sodium 2 gm/ Sodium 50 mls @ 100 mls/hr 03/21/21 00:00 03/20/21 23:09 Chloride IVPB 100 mls/hr Q8HR JULIEN Administration Isosorbide Mononitrate 30 mg 03/21/21 08:00 Isosorbide Mononitrate Er 30 Mg Tab.Er.24h PO DAILY@0800 [facility] Lisinopril 20 mg 03/21/21 08:00 Lisinopril 20 Mg Tab PO DAILY@0800 [facility] Magnesium Hydroxide 2,400 mg 03/20/21 18:17 Magnesium Hydroxide 2,400 Mg/10 Ml Cup PO DAILY PRN Constipation Magnesium Oxide 400 mg 03/20/21 21:00 03/20/21 20:57 Magnesium Oxide 400 Mg Tab PO 400 mg HS@2100 [facility] Administration Metolazone 5 mg 03/21/21 06:00 03/21/21 05:58 Metolazone 5 Mg Tab PO 5 mg DAILY@0600 [facility] Administration Miscellaneous Information 1 each 03/20/21 20:43 Magnesium Replacement Protocol 1 Each Misc MISCELLANE DAILY PRN Per Protocol Protocol Miscellaneous Information 1 each 03/20/21 20:43 Potassium Replacement Protocol 1 Each Misc MISCELLANE DAILY PRN Per Protocol Protocol Morphine Sulfate 4 mg 03/20/21 18:15 Morphine Sulfate 4 Mg/Ml Syringe IV Q4HR PRN Severe Pain Naloxone HCl 0.2 mg 03/20/21 17:45 Naloxone 0.4 Mg/Ml 1 Ml Vial IV Q2M PRN Opioid Reversal Ondansetron HCl 4 mg 03/20/21 18:15 Ondansetron 4 Mg/2 Ml Vial IVP Q8HR PRN Nausea And Vomiting Pantoprazole Sodium 40 mg 03/21/21 08:00 Pantoprazole 40 Mg Tablet PO BID@0800,1700 [facility] Potassium Chloride 20 meq 03/21/21 08:00 Potassium Chloride Er 20 Meq Tab.Er PO BID@0800,1700 [facility] Simethicone 100 mg 03/20/21 21:00 03/20/21 21:19 Simethicone 40 Mg/0.6 Ml Drops 2,000 Mg/30 Ml Bottle PO Not Given QID@08,12,, [facility] Sodium Biphosphate/Sodium Phosphate 133 ml 03/20/21 20:43 Na Phos,M-B/Na Phos,Di-Ba 133 Ml Enema RECTAL DAILY PRN Constipation Tamsulosin HCl 0.8 mg 03/21/21 08:00 Tamsulosin 0.4 Mg Cap.Er.24h PO DAILY@0800 [facility] Intake and Output 03/20/21 03/21/21 03/21/21 22:59 06:59 14:59 Intake Total 485 535 Output Total 900 Balance 485 -365 Intake: Intake, IV Titration 50 Amount ceFAZolin 2 gm In Sodium 50 Chloride 0.9% 50 ml @ 100 mls/hr IVPB Q8HR [facility] Rx# :[id number] Oral 485 485 Output: Urine 900 Other: Voiding Method Diaper Diaper External Catheter External Catheter # Voids 1 Weight 104.326 kg 78.5 kg 03/20/21 15:57 03/20/21 15:57
[2021-03-21 09:21] LABS: Anisocytosis Moderate; Basophils % (A) 1 %; Calcium 7.9 mg/dL (8.4-10.2); Eosinophils # (A) 0.4 k/uL (0-0.7); Eosinophils % (A) 13 %; HCT 28.3 % (39.0-53.0); HGB 8.7 gm/dL (13.0-17.5); Hypochromasia Marked; Lymphocytes # (A) 0.6 k/uL (1.0-4.8); Lymphocytes % (A) 20 %; MCH 25.3 pg (25.0-35.0); MCHC 30.6 g/dL (31.0-37.0); MCV 82.5 fL (80.0-100.0); Magnesium 1.6 mg/dL (1.6-2.3); Microcytosis Slight; Monocytes # (A) 0.2 k/uL (0-1.0); Monocytes % (A) 8 %; Neutrophils # (A) 1.7 k/uL (1.3-7.7); Neutrophils % (A) 55 %; Platelet Count 242 k/uL (150-450); Poikilocytosis Slight; Potassium 3.4 mmol/L (3.5-5.1); RBC 3.43 m/uL (4.30-5.90); RDW 21.6 % (11.5-15.5)
[2021-03-21] MEDS: carvediloL 12.5 MG TAB PO SCH ×2 (10:06→18:04)
[2021-03-21] MEDS: lisinopriL 20 MG TAB PO SCH (10:07)
[2021-03-21] MEDS: TAMSULOSIN 0.4 MG CAP.ER.24H PO SCH (10:07)
[2021-03-21] MEDS: FUROSEMIDE 40 MG TAB PO SCH ×2 (10:07→18:04)
[2021-03-21] MEDS: PANTOPRAZOLE 40 MG TABLET PO SCH ×2 (10:07→18:04)
[2021-03-21] MEDS: FERROUS SULFATE 325 MG TAB PO SCH (10:07)
[2021-03-21] MEDS: DIGOXIN 125 MCG TAB PO SCH (10:07)
[2021-03-21] MEDS: POTASSIUM CHLORIDE ER 20 MEQ TAB.ER PO SCH ×2 (10:08→18:04)
[2021-03-21] MEDS: ISOSORBIDE MONONITRATE ER 30 MG TAB.ER.24H PO SCH (10:08)
[2021-03-21] MEDS: SIMETHICONE 40 MG/0.6 ML DROPS 2,000 MG/30 ML BOTTLE PO SCH ×4 (10:08→20:02)
--- NOTE | 2021-03-21 19:55 | PN ---
PROGRESS NOTE I am covering for Dr. Modi. DATE OF SERVICE: 03/21/2021 This 70-year-old gentleman who was admitted with syncope also had significant bilateral leg ulcers. No chest pain. No palpitations. No fever. Cardiology is following the patient closely and recommended to continue the current medications and orthostatic vitals. PHYSICAL EXAMINATION: Patient alert and oriented x3. Pulse is 76, blood pressure 120/70, respiration 20, temperature 97.5, pulse ox noted. HEENT: Conjunctivae normal. NECK: No jugular venous distention. CARDIOVASCULAR: S1, S2 muffled. RESPIRATION: Breath sounds diminished at the bases. No rhonchi. No crackles. ABDOMEN: Soft. LEGS: Bilateral significant leg cellulitis and oozing present. LAB STUDIES: WBC 3, hemoglobin is 8.7. INR is 2. Creatinine is 1.42. Alkaline phosphatase noted. Troponins are noted: 0.050 and ASSESSMENT: 1. Syncope for evaluation, possibly vasovagal. 2. Bilateral leg ulcers and failure of outpatient treatment. 3. Troponin 0.050, indeterminate. Undetermined etiology. 4. Chronic kidney disease, stage 3. 5. Anemia, normocytic anemia of chronic disease. 6. Hypokalemia. 7. Hypomagnesemia. 8. Hypoalbuminemia with mild protein-calorie malnutrition. 9. Atrial fibrillation, paroxysmal. 10.History of congestive heart failure. 11.Chronic obstructive pulmonary disease. 12.Hypertension. 13.History of degenerative joint disease. 14.History of pneumonia. 15.History of prostate disorder. 16.History of sleep apnea. 17.History of nonischemic cardiomyopathy. 18.History of cardiac valve disease. 19.History of obstructive sleep apnea. 20.Chronic hypoxic respiratory failure, on home oxygen. 21.History of carpal tunnel syndrome. 22.History of bilateral hand tremors. 23.Gait dysfunction. 24.History of peripheral vascular disease. 25.Benign prostatic hypertrophy. 26.History of MRSA. 27.History of cardiac catheterization. 28.Remote history of nicotine dependence. 29.History of anxiety. 30.FULL CODE. RECOMMENDATIONS AND DISCUSSION: I recommend to continue current medications, continue with symptomatic treatment. Repeat labs. Monitor creatinine closely. Continue the rest of the medications. Prognosis is guarded because of multiple complex medical issues. Further recommendations to follow. Patient is on Kefzol, also. Infectious disease evaluation also has been sought. Further recommendations to follow. MMODL / IJN: [id number] / MTDD
[2021-03-21] MEDS: allopurinoL 300 MG TAB PO SCH (20:01)
[2021-03-21] MEDS: MAGNESIUM OXIDE 400 MG TAB PO SCH (20:01)
[2021-03-22] MEDS: metOLazone 5 MG TAB PO SCH (05:50)
[2021-03-22] MEDS: TAMSULOSIN 0.4 MG CAP.ER.24H PO SCH (09:02)
[2021-03-22] MEDS: carvediloL 12.5 MG TAB PO SCH ×2 (09:02→16:47)
[2021-03-22] MEDS: lisinopriL 20 MG TAB PO SCH (09:03)
[2021-03-22] MEDS: SIMETHICONE 40 MG/0.6 ML DROPS 2,000 MG/30 ML BOTTLE PO SCH ×4 (09:03→21:05)
[2021-03-22] MEDS: FUROSEMIDE 40 MG TAB PO SCH ×2 (09:03→16:47)
[2021-03-22] MEDS: FERROUS SULFATE 325 MG TAB PO SCH (09:03)
[2021-03-22] MEDS: DIGOXIN 125 MCG TAB PO SCH (09:03)
[2021-03-22] MEDS: PANTOPRAZOLE 40 MG TABLET PO SCH ×2 (09:03→16:47)
[2021-03-22] MEDS: ISOSORBIDE MONONITRATE ER 30 MG TAB.ER.24H PO SCH (09:03)
[2021-03-22] MEDS: POTASSIUM CHLORIDE ER 20 MEQ TAB.ER PO SCH ×2 (09:03→16:47)
[2021-03-22 09:05] LABS: Anisocytosis Moderate; Basophils % (A) 1 %; Eosinophils # (A) 0.3 k/uL (0-0.7); Eosinophils % (A) 8 %; HCT 30.4 % (39.0-53.0); HGB 9.4 gm/dL (13.0-17.5); Hypochromasia Marked; Lymphocytes # (A) 0.7 k/uL (1.0-4.8); Lymphocytes % (A) 20 %; MCH 25.3 pg (25.0-35.0); MCHC 30.9 g/dL (31.0-37.0); MCV 81.9 fL (80.0-100.0); Mean Platelet Volume 8.1; Microcytosis Slight; Monocytes # (A) 0.2 k/uL (0-1.0); Monocytes % (A) 7 %; Neutrophils # (A) 2.1 k/uL (1.3-7.7); Neutrophils % (A) 62 %; Platelet Count 270 k/uL (150-450); Poikilocytosis Slight; RBC 3.71 m/uL (4.30-5.90); RDW 21.9 % (11.5-15.5); WBC 3.4 k/uL (3.8-10.6)
[2021-03-22 09:08] LABS: Calcium 8.3 mg/dL (8.4-10.2); Potassium 3.6 mmol/L (3.5-5.1)
[2021-03-22] MEDS ORDERED: VANCOMYCIN IV PER PHARMACY 1 EACH MISC MISCELLANE PRN (10:53)
--- NOTE | 2021-03-22 10:53 | P.CONS ---
History of Present Illness - Reason for Consult Consult date: 03/21/21 leg wounds and cellulitis Requesting physician: Winter Bunch - Chief Complaint passed out x 1 day - History of Present Illness History of present illness : Patient is a 70-year male with a past medical history significant for bilateral lower extremity venous stasis ulcer right greater than left in this patient who is currently in snf resident patient has been sent to the ER for evaluation of presyncopal episode patient apparently was eating dinner when he was told that he passed out nursing staff at the facility mention the patient did have low blood pressure which resolved after the patient received fluid bolus by EMS patient denies having any headache no fever no chills no chest pain no shortness of breath or cough no abdominal pain no diarrhea patient denies any worsening pain to his lower extremity wound which is more sensitive the right leg than the left leg patient presented to the hospital was afebrile patient did have a normal white count presentation subsequent slight leukopenia urine creatinine is elevated cardiac enzymes are elevated urine was negative moran PCR was negative patient did have a cultures obtained from his leg wound and the patient was started on cefazolin infectious disease was consulted with concern for lower extremity wound and cellulitis Review of system: CONSTITUTIONAL: Positive for weakness denies high-grade fever. EYES: No complaint. ENT: No complaint. RESPIRATORY: No complaint. CARDIOVASCULAR: No complaint. GENITOURINARY: No complaint. GASTROINTESTINAL: No complaint. MUSCULOSKELETAL: No complaint. INTEGUMENTARY: As per history of present illness. PSYCHOLOGIC: No complaint. ENDOCRINE: No complaint. NEUROLOGIC: As per history of present illness. Past medical history : Reviewed, documented below Past surgical history : Reviewed, documented below Social history: Reviewed, documented below Medications: Reviewed, as documented below EXAMINATION: Vital sigans= Reviewed and documented below GENERAL DESCRIPTION: Elderly male lying in bed, no distress. No tachypnea or accessory muscle of respiration use. HEENT: Shows Pallor , no scleral icterus. Oral mucous membrane is dry. NECK: Trachea central, no thyromegaly. LUNGS: Unlabored breathing. Clear to auscultation anteriorly. No wheeze or crackle. HEART: S1, S2, regular rate and rhythm. ABDOMEN: Soft, no tenderness , guarding or rigidity EXTREMITIES: Bilateral lower extremity venous stasis ulcer right greater than left no significant slough tissue minimal redness, minimal drainage on the dressing SKIN: No rash, no masses palpable. NEUROLOGICAL: The patient is awake, alert, oriented x3, mood and affect normal. LABS AND RADIOLOGY: Reviewed results see below Assessment : Patient presented to hospital with a syncopal episode in this patient did have chronic nonhealing wound to the lower extremity right greater than the left with concern for possible secondary cellulitis likely from gram- positive skin ammy Plan: 1-cefazolin 2 g every 8 hour to continue 2-local wound care with dry Aquacel silver dressing followed by Kerlix and Kahlil wrap to keep the swelling down We will follow on clinical condition and cultures to further adjust medication if needed Thank you for this consultation we will follow the patient along with you Past Medical History Past Medical History: Atrial Fibrillation, Heart Failure, COPD, Hypertension, Osteoarthritis (OA), Pneumonia, Prostate Disorder, Renal Disease, Sleep Apnea/CPAP/BIPAP, Vascular Disorder Additional Past Medical History / Comment(s): Nonischemic cardiomyopathy, cardiac valve disease, bronchitis, JIMMIE with Cpap and O2 at 2L at hs, past decreased renal function, arthritis bilateral hands/knees, gout bilateral feet, numbness bilateral legs/feet, carpal tunnel syndrome bilaterally, bilateral hand tremors, nonhealing bilateral lower leg wounds/cellulitis, varicosities, lower leg/pedal edema, PVD, BPH. History of Any Multi-Drug Resistant Organisms: MRSA Year Discovered:: 08/30/12 MDRO Source:: LEG(not sure which) Past Surgical History: Heart Catheterization Additional Past Surgical History / Comment(s): Split thickness skin graft to L leg, bronchoscopy, cyst and partial jaw removed/has screws, oral surgery age 8- too many teeth. Past Anesthesia/Blood Transfusion Reactions: Previous Problems w/ Anesthesia Additional Past Anesthesia/Blood Transfusion Reaction / Comm: STATED DURING BRONCH STOPPED BREATHING, (brochoscopy done at [facility]-record on chart) Past Psychological History: Anxiety Additional Psychological History / Comment(s): Pt resides with his spouse, daughter and grandchild. He uses a walker. He has a Cpap/oxygen at home. Smoking Status: Never smoker Past Alcohol Use History: None Reported Additional Past Alcohol Use History / Comment(s): Pt started smoking cigars on occasion in 1981 and quit in 2019 Past Drug Use History: None Reported - Past Family History Father Family Medical History: Dementia, Eye Disorder Additional Family Medical History / Comment(s): MACULAR DEGENERATION Mother Family Medical History: Diabetes Mellitus, Eye Disorder, Vascular Disorder Additional Family Medical History / Comment(s): ANEURYSMS, CATARACTS. Medications and Allergies Home Medications Medication Instructions Recorded Confirmed Type Isosorbide Mononitrate ER [Imdur] 30 mg PO DAILY@0800 04/11/14 03/20/21 History Tamsulosin HCl [Flomax] 0.8 mg PO DAILY@0800 04/11/14 03/20/21 History allopurinoL [Zyloprim] 300 mg PO HS@209903/03/16 03/20/21 History Carvedilol [Coreg] 25 mg PO BID@0800,1700 04/25/18 03/20/21 History Naproxen 500 mg PO BID@0800,1700 04/25/18 03/20/21 History Potassium Chloride 20 meq PO BID@0800,1700 04/25/18 03/20/21 History lisinopriL [Zestril] 20 mg PO DAILY@0800 04/25/18 03/20/21 History metOLazone [Zaroxolyn] 5 mg PO DAILY@0600 04/25/18 03/20/21 History Digoxin [Lanoxin] 125 mcg PO DAILY@0800 06/09/18 03/20/21 History Magnesium Oxide 400 mg PO HS@209912/29/20 03/20/21 History SILVER sulfADIAZINE CREAM 1 applic TOPICAL DAILY@0812/29/20 03/20/21 History [Silvadene Cream] Albuterol Nebulized [Ventolin 2.5 mg INHALATION RT-Q6H PRN 02/27/21 03/20/21 History Nebulized] Warfarin [Coumadin] 3 mg PO SUMOWETHFR 02/27/21 03/20/21 History HYDROcodone/APAP 5-325MG [[place] 1 tab PO Q6HR PRN 3 Days #12 tab 03/17/21 03/20/21 Rx 5-325] Ferrous Sulfate [Feosol] 325 mg PO DAILY@0800 03/20/21 03/20/21 History Furosemide [Lasix] 40 mg PO BID@0800,1700 03/20/21 03/20/21 History Liquacel 30 ml PO BID@0800,1700 03/20/21 03/20/21 History Magnesium Hydroxide [Milk of 2,400 mg PO DAILY PRN 03/20/21 03/20/21 History Magnesia] Na Phos,M-B/Na Phos,Di-Ba [Fleet 133 ml RECTAL DAILY PRN 03/20/21 03/20/21 History Adult] Pantoprazole [Protonix] 40 mg PO BID@0800,1700 03/20/21 03/20/21 History Simethicone 40 mg/0.6 ml Drops 100 mg PO QID@08,12,17,21 03/20/21 03/20/21 History [Mylicon Drops] Warfarin 4.5mg 4.5 mg PO TUSA 03/20/21 03/20/21 History bisacodyL [Dulcolax] 10 mg RECTAL DAILY PRN 03/20/21 03/20/21 History Allergies Allergy/AdvReac Type Severity Reaction Status Date / Time No Known Allergies Allergy Verified 03/20/21 16:25 Physical Exam Vitals: Vital Signs Temp Pulse Pulse Resp BP BP Pulse Ox 03/21/21 08:10 62 16 03/21/21 07:59 61 16 96 03/21/21 04:00 69 18 143/75 96 03/21/21 00:00 68 18 137/79 92 L 03/20/21 20:00 97.7 F 73 18 136/61 98 03/20/21 18:59 97.8 F 72 20 128/79 03/20/21 17:40 78 20 123/69 97 03/20/21 14:49 98.8 F 72 20 130/81 100 Intake and Output 03/20/21 03/21/21 03/21/21 22:59 06:59 14:59 Intake Total 485 535 0 Output Total 900 Balance 485 -365 0 Intake: Intake, IV Titration 50 Amount ceFAZolin 2 gm In Sodium 50 Chloride 0.9% 50 ml @ 100 mls/hr IVPB Q8HR [facility] Rx# :[id number] Oral 485 485 0 Output: Urine 900 Other: Voiding Method Diaper Diaper External Catheter External Catheter # Voids 1 Weight 104.326 kg 78.5 kg Results CBC & Chem 7: 03/22/21 07:38 03/22/21 07:38 Labs: Abnormal Lab Results - Last 24 Hours (Table) 03/20/21 03/20/21 03/20/21 Range/Units 15:57 15:57 15:57 WBC (3.8-10.6) k/uL RBC 3.28 L (4.30-5.90) m/uL Hgb 8.6 L (13.0-17.5) gm/dL Hct 27.2 L (39.0-53.0) % MCHC (31.0-37.0) g/dL RDW 21.6 H (11.5-15.5) % Lymphocytes # 0.4 L (1.0-4.8) k/uL PT 20.4 H (9.0-12.0) sec INR 2.1 H (<1.2) Potassium 3.4 L (3.5-5.1) mmol/L BUN 70 H (9-20) mg/dL Creatinine 1.72 H (0.66-1.25) mg/dL Glucose 238 H (74-99) mg/dL Calcium 7.2 L (8.4-10.2) mg/dL Magnesium 1.3 L (1.6-2.3) mg/dL Alkaline Phosphatase 136 H (38-126) U/L Troponin I (0.000-0.034) ng/mL Total Protein 5.7 L (6.3-8.2) g/dL Albumin 2.5 L (3.5-5.0) g/dL 03/20/21 03/20/21 03/21/21 Range/Units 15:57 20:35 00:26 WBC (3.8-10.6) k/uL RBC (4.30-5.90) m/uL Hgb (13.0-17.5) gm/dL Hct (39.0-53.0) % MCHC (31.0-37.0) g/dL RDW (11.5-15.5) % Lymphocytes # (1.0-4.8) k/uL PT (9.0-12.0) sec INR (<1.2) Potassium (3.5-5.1) mmol/L BUN (9-20) mg/dL Creatinine (0.66-1.25) mg/dL Glucose (74-99) mg/dL Calcium (8.4-10.2) mg/dL Magnesium (1.6-2.3) mg/dL Alkaline Phosphatase (38-126) U/L Troponin I 0.038 H* 0.040 H* 0.050 H* (0.000-0.034) ng/mL Total Protein (6.3-8.2) g/dL Albumin (3.5-5.0) g/dL 03/21/21 03/21/21 03/21/21 Range/Units 07:54 07:54 07:54 WBC 3.0 L (3.8-10.6) k/uL RBC 3.43 L (4.30-5.90) m/uL Hgb 8.7 L (13.0-17.5) gm/dL Hct 28.3 L (39.0-53.0) % MCHC 30.6 L (31.0-37.0) g/dL RDW 21.6 H (11.5-15.5) % Lymphocytes # 0.6 L (1.0-4.8) k/uL PT 19.5 H (9.0-12.0) sec INR 2.0 H (<1.2) Potassium 3.4 L (3.5-5.1) mmol/L BUN 64 H (9-20) mg/dL Creatinine 1.42 H (0.66-1.25) mg/dL Glucose 125 H (74-99) mg/dL Calcium 7.9 L (8.4-10.2) mg/dL Magnesium (1.6-2.3) mg/dL Alkaline Phosphatase (38-126) U/L Troponin I (0.000-0.034) ng/mL Total Protein (6.3-8.2) g/dL Albumin (3.5-5.0) g/dL Microbiology - Last 24 Hours (Table) 03/20/21 21:02 Wound Culture - Preliminary Leg - Right
[2021-03-22] MEDS: VANCOMYCIN 1,500 MG in SODIUM CHLORIDE 0.9% 250 ML IVPB SCH (12:27)
--- NOTE | 2021-03-22 12:39 | P.PN ---
Subjective Progress Note Date: 03/22/21 HISTORY OF PRESENT ILLNESS This is a 70-year-old male patient of Dr. Pendleton with history of chronic atrial f ibrillation, COPD, hypertension and chronic systolic heart failure, nonischemic cardiomyopathy. Patient was recently hospitalized for heart failure along with anemia and acute blood loss and upper endoscopy found gastric ulceration. Patient also developed hematoma to his right lower extremity which was friable and had significant blood loss and Coumadin was placed on hold temporarily. He was discharged from the hospital on 03/18 to subacute rehab. Echocardiogram completed 12/30/2020 revealed EF of 45-50%, possible PFO, mild aortic valve sclerosis, mild aortic regurgitation, mild mitral regurgitation, mild tricuspid regurgitation, moderate pulmonary hypertension. Patient gives history that he was sitting eating lunch and had sudden episode of passing out which was witnessed by staff. He states initially he started feeling a little funny with a little lightheadedness and has since had a sour stomach feeling. He now feels very tired. He denies any nausea or vomiting and no chest pain or palpitations. Patient was apparently found to be hypotensive and received IV fluids by EMS. He denies having any fever or chills and no history of seizure disorder. Patient denies having any symptoms at this time. Patient is nonweightbearing. Patient was brought into [facility] emergency center for evaluation and found to be afebrile, heart rate in the 70s, blood pressure 130/81, pulse ox 100% on room air. 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 Heart rate has been running in the 70s. Troponins 0.038, 0.040, 0.050. Other lab work revealed hemoglobin of 8.6, INR 2.1, potassium 3.4, BUN 70 creatinine 1.72. Blood sugar was 238. Magnesium 1.3. Coated 19 not detected. Urinalysis negative for infection. Potassium and magnesium have been replaced and patient is status post an additional 1 L of IV fluids. Hemoglobin is stable from last admission. 03/22: patient states that he is getting stronger and his appetite is improving. 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 No orthostatics documented. REVIEW OF SYSTEMS Constitutional: No fever, no chills. Chronic weakness, chronic fatigue no lethargy. EENT: No headache. Brief episode of lightheadedness and dizziness subsequently resolved. Lungs: No shortness of breath, cough, no sputum production. No wheezing. Cardiovascular: No chest pain, no lower extremity edema. No palpitations. No paroxysmal nocturnal dyspnea. No orthopnea. No lightheadedness or dizziness. No syncopal episodes. Abdominal: No abdominal pain. No nausea, vomiting. No diarrhea. No constipation. No bloody or tarry stools.. No loss of appetite. Genitourinary: No dysuria.. No urinary retention. Musculoskeletal: No myalgias. No muscle weakness, no gait dysfunction, no frequent falls. No back pain. No neck pain. Integumentary: Chronic lower extremity wounds, no lesions. No rash or pruritus. No unusual bruising. Neurologic: No aphasia. No facial droop. No change in mentation. No head injury. No headache. No paralysis. No paresthesia. Psychiatric: No depression. No anxiety. Endocrine: Noted abnormal blood sugars. PHYSICAL EXAMINATION Gen: This is a 70-year-old male. He is resting in bed and appears comfortable and in no acute distress VS: Afebrile, heart rate in the 60s, blood pressure 152/71, pulse ox 96% on room air. 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 HEENT: Head is atraumatic, normocephalic. Pupils equal, round. Sclerae is anicteric. NECK: Supple. No JVD. No lymphadenopathy. No thyromegaly. LUNGS: Clear to auscultation. No wheezes or rhonchi. No intercostal retractions. HEART: Irregular heart rhythm. No murmur. ABDOMEN: Soft. Bowel sounds are present. No masses. No tenderness. EXTREMITIES: No pedal edema. No calf tenderness. Dressings with Kahlil wraps to the bilateral lower extremities not removed for evaluation NEUROLOGICAL: Patient is awake, alert and oriented x3. Cranial nerves 2 through 12 are grossly intact. ASSESSMENT Syncopal episode most likely due to hypotension. Elevated troponin secondary to renal failure Hypokalemia, hypomagnesemia status post replacement Chronic atrial fibrillation with controlled rate Chronic systolic heart failure, stable COPD Hypertension Recent GI bleed and hematoma right lower extremity PLAN Continue cardiac medications No need to repeat echocardiogram Orthostatic vital signs with supine and sitting only Further recommendations to follow based upon clinical course Thank you kindly for this consultation. Nurse practitioner note has been reviewed, I agree with documented findings and plan of care. Patient was seen and examined. Objective - Vital Signs Vital signs: Vital Signs Temp 98.1 F 03/21/21 20:00 Pulse 63 03/22/21 04:00 Resp 18 03/22/21 04:00 BP 152/71 03/22/21 04:00 Pulse Ox 97 03/22/21 04:00 Intake & Output 03/21/21 03/22/21 03/22/21 18:59 06:59 18:59 Intake Total 420 485 480 Output Total 1426 2370 Balance -1006 -3163 480 Weight 78.5 kg 78.5 kg Intake: Oral 420 485 480 Output: Urine 1425 2370 Stool 1 Other: Voiding Method Diaper External Catheter # Voids 1 # Bowel Movements 1 - Labs CBC & Chem 7: 03/22/21 07:38 03/22/21 07:38 Labs: Abnormal Lab Results - Last 24 Hours (Table) 03/22/21 03/22/21 Range/Units 07:38 07:38 WBC 3.4 L (3.8-10.6) k/uL RBC 3.71 L (4.30-5.90) m/uL Hgb 9.4 L (13.0-17.5) gm/dL Hct 30.4 L (39.0-53.0) % MCHC 30.9 L (31.0-37.0) g/dL RDW 21.9 H (11.5-15.5) % Lymphocytes # 0.7 L (1.0-4.8) k/uL Carbon Dioxide 33 H (22-30) mmol/L BUN 60 H (9-20) mg/dL Glucose 146 H (74-99) mg/dL Calcium 8.3 L (8.4-10.2) mg/dL Microbiology - Last 24 Hours (Table) 03/20/21 21:02 Gram Stain - Preliminary Leg - Right Wound Culture - Preliminary Presumptive MRSA
--- NOTE | 2021-03-22 19:31 | PN ---
PROGRESS NOTE DATE OF SERVICE: 03/22/2021 REASON FOR FOLLOWUP: Bilateral lower extremity wounds and cellulitis. INTERVAL HISTORY: The patient is afebrile. The patient is feeling slightly better. He is breathing comfortably. No chest pain, shortness of breath or cough. No abdominal pain or any worsening pain to the lower extremities PHYSICAL EXAMINATION: Blood pressure 123/72 with a pulse of 89, temperature 98.1. He is 96% on room air. GENERAL DESCRIPTION: General description is an elderly male lying in bed in no distress. RESPIRATORY SYSTEM: Unlabored breathing. Clear to auscultation anteriorly. HEART: S1, S2. Regular rate and rhythm. ABDOMEN: Soft. No tenderness. Legs are currently wrapped up. No obvious drainage on the dressing. LABS: Hemoglobin is 11.4, white count 3.4, BUN of 6, creatinine 1.19. Local culture with presumptive MRSA. DIAGNOSTIC IMPRESSION AND PLAN: Patient with bilateral lower extremity wounds with secondary cellulitis, right greater than the left. Local culture with presumptive MRSA. Antibiotic has been adjusted to vancomycin. That will be continued. Local wound care with Aquacel Silver dressing. Monitor clinical course closely. Continue supportive care. MMODL / IJN: [id number] /
--- NOTE | 2021-03-22 20:56 | PN ---
PROGRESS NOTE I am covering for Dr. Modi. DATE OF SERVICE: 03/22/2021 This 70-year-old gentleman who was admitted with syncope also had significant bilateral leg ulcers. The patient had presumed MRSA grown from the culture. Patient is on vancomycin. No chest pain. No palpitations. No fever. PHYSICAL EXAMINATION: Alert and oriented x3. Pulse 99, blood pressure 149/70, respiration 20, temperature 98.1, pulse ox 99% on room air. HEENT: Conjunctivae normal. NECK: No jugular venous distention. CARDIOVASCULAR: S1, S2 muffled. RESPIRATION: Breath sounds diminished at the bases. ABDOMEN: Soft, nontender. LEGS: Bilateral leg cellulitis. NERVOUS SYSTEM: No focal deficit. LABS: WBC 3.4, hemoglobin 9.4. Other labs are noted. ASSESSMENT: 1. Syncope for evaluation, possibly vasovagal. Rule out cardiac syncope. 2. Bilateral leg ulcers with failure of outpatient treatment with possible MRSA. 3. Troponin 0.05, indeterminate, of undetermined etiology. 4. Chronic kidney disease, stage 3. 5. Anemia, normocytic anemia of chronic disease. 6. Hypokalemia. 7. Hypomagnesemia. 8. Hypoalbuminemia with mild protein-calorie malnutrition. 9. Atrial fibrillation, paroxysmal. 10.History of congestive heart failure. 11.Chronic obstructive pulmonary disease. 12.Hypertension. 13.History of degenerative joint disease. 14.History of pneumonia. 15.History of prostate disorder. 16.History of sleep apnea. 17.History of nonischemic cardiomyopathy. 18.History of cardiac valve disease. 19.History of obstructive sleep apnea. 20.Chronic hypoxic respiratory failure, on home oxygen. 21.History of carpal tunnel syndrome. 22.History of bilateral hand tremors. 23.Gait dysfunction. 24.History of peripheral vascular disease. 25.Benign prostatic hypertrophy. 26.History of MRSA. 27.History of cardiac catheterization. 28.Remote history of nicotine dependence. 29.History of anxiety. 30.FULL CODE. RECOMMENDATIONS AND DISCUSSION: I recommend to continue current medications, continue with symptomatic treatment. Continue the antibiotics. Continue vancomycin. Infectious disease evaluation. Dr. Modi will follow tomorrow. MMODL / IJN: [id number] /
[2021-03-22] MEDS: allopurinoL 300 MG TAB PO SCH (21:05)
[2021-03-22] MEDS: MAGNESIUM OXIDE 400 MG TAB PO SCH (21:05)
[2021-03-23] MEDS: VANCOMYCIN 1,500 MG in SODIUM CHLORIDE 0.9% 250 ML IVPB SCH (04:03)
[2021-03-23] MEDS: metOLazone 5 MG TAB PO SCH (06:21)
[2021-03-23 08:04] LABS: Calcium 8.5 mg/dL (8.4-10.2); Potassium 3.3 mmol/L (3.5-5.1)
--- NOTE | 2021-03-23 08:32 | P.PN ---
Subjective Principal diagnosis: Weakness with lower extremity hematoma and heart failure. The patient is 70-year-old white male with chronic systolic congestive heart failure related to atrial fibrillation who is developed lower extremity edema. He was recently sent to the [facility] for rehab but failed outpatient treatment. The patient had significant syncopal spell at the [facility] and is here for continued evaluation. Objective - Vital Signs Vital signs: Vital Signs Temp 98.3 F 03/23/21 04:00 Pulse 75 03/23/21 04:00 Resp 18 03/23/21 04:00 BP 130/81 03/23/21 04:00 Pulse Ox 96 03/23/21 04:00 Intake & Output 03/22/21 03/23/21 03/23/21 18:59 06:59 18:59 Intake Total 960 Output Total 1100 1100 Balance -140 -1100 Weight 106.5 kg Intake: Oral 960 Output: Urine 1100 1100 Other: Voiding Method Diaper External Catheter # Bowel Movements 1 - Constitutional General appearance: Present: obese - EENT Eyes: Absent: abnormal pupil - Neck Neck: Absent: lymphadenopathy - Respiratory Respiratory: bilateral: diminished - Cardiovascular Rhythm: irregularly irregular Heart sounds: normal: S1, S2 Abnormal Heart Sounds: Absent: S3 Gallop - Gastrointestinal General gastrointestinal: Present: soft. Absent: tenderness - Labs CBC & Chem 7: 03/22/21 07:38 03/23/21 07:12 Labs: Abnormal Lab Results - Last 24 Hours (Table) 03/22/21 03/22/21 03/23/21 Range/Units 07:38 07:38 07:12 WBC 3.4 L (3.8-10.6) k/uL RBC 3.71 L (4.30-5.90) m/uL Hgb 9.4 L (13.0-17.5) gm/dL Hct 30.4 L (39.0-53.0) % MCHC 30.9 L (31.0-37.0) g/dL RDW 21.9 H (11.5-15.5) % Lymphocytes # 0.7 L (1.0-4.8) k/uL Potassium 3.3 L (3.5-5.1) mmol/L Carbon Dioxide 33 H 34 H (22-30) mmol/L BUN 60 H 48 H (9-20) mg/dL Glucose 146 H 140 H (74-99) mg/dL Calcium 8.3 L (8.4-10.2) mg/dL Microbiology - Last 24 Hours (Table) 03/20/21 21:02 Gram Stain - Final Leg - Right Wound Culture - Final Staphylococcus aureus 03/21/21 16:30 Anaerobic Culture - Preliminary Leg - Right Assessment and Plan (1) Debility Current Visit: Yes Status: Acute Code(s): R53.81 - OTHER MALAISE SNOMED Code(s): 11741127 (2) History of atrial fibrillation Current Visit: Yes Status: Acute Code(s): Z86.79 - PERSONAL HISTORY OF OTHER DISEASES OF THE CIRCULATORY SYSTEM SNOMED Code(s): 019851823 (3) Hypokalemia Current Visit: Yes Status: Acute Code(s): E87.6 - HYPOKALEMIA SNOMED Code(s): 50173014 (4) Acute on chronic systolic CHF (congestive heart failure) Current Visit: No Status: Acute Code(s): I50.23 - ACUTE ON CHRONIC SYSTOLIC (CONGESTIVE) HEART FAILURE SNOMED Code(s): 242344813 (5) Chronic atrial fibrillation Current Visit: No Status: Acute Code(s): I48.2 - CHRONIC ATRIAL FIBRILLATION * DO NOT USE * SNOMED Code(s): 797244102 (6) Chronic venous stasis dermatitis of both lower extremities Current Visit: No Status: Acute Code(s): I87.2 - VENOUS INSUFFICIENCY (CHRONIC) (PERIPHERAL) SNOMED Code(s): 16371801 (7) NICM (nonischemic cardiomyopathy) Current Visit: No Status: Acute Code(s): I42.8 - OTHER CARDIOMYOPATHIES SNOMED Code(s): 39482623 Plan: Continue current regimen of treatment. Anticipate change of antibiotic treatment as discussed with the patient. Check CBC and CMP in a.m. Increase ambulation as possible.
[2021-03-23] MEDS: PANTOPRAZOLE 40 MG TABLET PO SCH ×2 (08:52→17:36)
[2021-03-23] MEDS: ISOSORBIDE MONONITRATE ER 30 MG TAB.ER.24H PO SCH (08:52)
[2021-03-23] MEDS: POTASSIUM CHLORIDE ER 20 MEQ TAB.ER PO SCH ×2 (08:52→17:36)
[2021-03-23] MEDS: lisinopriL 20 MG TAB PO SCH (08:52)
[2021-03-23] MEDS: FERROUS SULFATE 325 MG TAB PO SCH (08:52)
[2021-03-23] MEDS: TAMSULOSIN 0.4 MG CAP.ER.24H PO SCH (08:52)
[2021-03-23] MEDS: carvediloL 12.5 MG TAB PO SCH ×2 (08:52→17:36)
[2021-03-23] MEDS: FUROSEMIDE 40 MG TAB PO SCH ×2 (08:53→17:36)
[2021-03-23] MEDS: DIGOXIN 125 MCG TAB PO SCH (08:53)
[2021-03-23] MEDS: SIMETHICONE 40 MG/0.6 ML DROPS 2,000 MG/30 ML BOTTLE PO SCH ×4 (08:53→20:58)
--- NOTE | 2021-03-23 11:21 | P.PN ---
Subjective Progress Note Date: 03/23/21 HISTORY OF PRESENT ILLNESS: This is a 70-year-old male patient of Dr. Pendleton with history of chronic atrial fibrillation, COPD, hypertension and chronic systolic heart failure, nonischemic cardiomyopathy. Patient was recently hospitalized for heart failure along with anemia and acute blood loss and upper endoscopy found gastric ulceration. Patient also developed hematoma to his right lower extremity which was friable and had significant blood loss and Coumadin was placed on hold temporarily. He was discharged from the hospital on 03/18 to subacute rehab. Echocardiogram comp leted 12/30/2020 revealed EF of 45-50%, possible PFO, mild aortic valve sclerosis, mild aortic regurgitation, mild mitral regurgitation, mild tricuspid regurgitation, moderate pulmonary hypertension. Patient gives history that he was sitting eating lunch and had sudden episode of passing out which was witnessed by staff. He states initially he started feeling a little funny with a little lightheadedness and has since had a sour stomach feeling. He now feels very tired. He denies any nausea or vomiting and no chest pain or palpitations. Patient was apparently found to be hypotensive and received IV fluids by EMS. He denies having any fever or chills and no history of seizure disorder. Patient denies having any symptoms at this time. Patient is nonweightbearing. Patient was brought into [facility] emergency center for evaluation and found to be afebrile, heart rate in the 70s, blood pressure 130/81, pulse ox 100% on room air. His registered nurse cardiac telemetry here has been atrial fibrillation with controlled rate with occasional PVCs and occasional pairs. Heart rate has been running in the 70s. Troponins 0.038, 0.040, 0.050. Other lab work revealed hemoglobin of 8.6, INR 2.1, potassium 3.4, BUN 70 creatinine 1.72. Blood sugar was 238. Magnesium 1.3. Coated 19 not detected. Urinalysis negative for infection. Potassium and magnesium have been replaced and patient is status post an additional 1 L of IV fluids. Hemoglobin is stable from last admission. 03/22: patient states that he is getting stronger and his appetite is improving. site monitor has been A. fib with PVCs, rate 50-70. No orthostatics documented. 03/23/2021 Patient examined this morning at the bedside. Patient denies chest pain or pressure. He denies shortness of breath. Telemetry reveals atrial fibrillation with controlled ventricular rate. Vital signs are stable. PHYSICAL EXAM: VITAL SIGNS: Reviewed. GENERAL: Well-developed in no acute distress. NECK: Supple. No JVD or thyromegaly LUNGS: Respirations even and unlabored. Lungs essentially clear to auscultation bilaterally. HEART: Irregular rate and rhythm. S1 and S2 heard. EXTREMITIES: Normal range of motion. No clubbing or cyanosis. Peripheral pulses intact. No lower extremity edema ASSESSMENT: Lower extremity cellulitis Syncopal episode most likely due to hypotension Elevated troponin secondary to renal failure Chronic atrial fibrillation with controlled ventricular rate Chronic systolic heart failure, stable COPD Hypertension Recent GI bleed and hematoma right lower extremity. Hypokalemia Hypomagnesemia PLAN: No anticoagulation secondary to recent GI bleed with EGD and colonoscopy earlier this month Continue current cardiac medications Patient is stable from a cardiac standpoint We will sign off. Please reconsult if needed. Nurse practitioner note has been reviewed by physician. Signing provider agrees with the documented findings, assessment, and plan of care. Objective - Vital Signs Vital signs: Vital Signs Temp 98.3 F 03/23/21 04:00 Pulse 75 03/23/21 04:00 Resp 18 03/23/21 04:00 BP 130/81 03/23/21 04:00 Pulse Ox 96 03/23/21 04:00 Intake & Output 03/22/21 03/23/21 03/23/21 18:59 06:59 18:59 Intake Total 960 120 Output Total 1100 1100 650 Balance -140 -1100 -530 Weight 106.5 kg Intake: Oral 960 120 Output: Urine 1100 1100 650 Other: Voiding Method Diaper External Catheter # Bowel Movements 1 - Labs CBC & Chem 7: 03/22/21 07:38 03/23/21 07:12 Labs: Abnormal Lab Results - Last 24 Hours (Table) 03/23/21 Range/Units 07:12 Potassium 3.3 L (3.5-5.1) mmol/L Carbon Dioxide 34 H (22-30) mmol/L BUN 48 H (9-20) mg/dL Glucose 140 H (74-99) mg/dL Microbiology - Last 24 Hours (Table) 03/20/21 21:02 Gram Stain - Final Leg - Right Wound Culture - Final Staphylococcus aureus 03/21/21 16:30 Anaerobic Culture - Preliminary Leg - Right
--- NOTE | 2021-03-23 12:13 | ECHOF ---
Referral Reason:LV function MEASUREMENTS -------- HEIGHT: 175.3 cm WEIGHT: 106.1 kg BP: RVIDd: 4.0 cm (< 3.3) IVSd: 1.3 cm (0.6 - 1.1) LVIDd: 4.0 cm (3.9 - 5.3) LVPWd: 2.0 cm (0.6 - 1.1) IVSs: 1.9 cm LVIDs: 2.2 cm LVPWs: 2.0 cm FINDINGS -------- This was a technically difficult study with suboptimal views. Limited Study The left ventricular size is normal. There is moderate concentric left ventricular hypertrophy. O verall left ventricular systolic function is normal with, an EF between 55 - 60 %. Lumason used There is no pericardial effusion. CONCLUSIONS -------- 1. The left ventricular size is normal. 2. There is moderate concentric left ventricular hypertrophy. 3. Overall left ventricular systolic function is normal with, an EF between 55 - 60 %. 4. There is no pericardial effusion. INTERIOR BLOCK WIRER: Dena Reddy RD
[2021-03-23] MEDS ORDERED: VANCOMYCIN 2,000 MG in SODIUM CHLORIDE 0.9% 500 ML 500 ML IVPB SCH (20:00)
[2021-03-23] MEDS: MAGNESIUM OXIDE 400 MG TAB PO SCH (20:58)
[2021-03-23] MEDS: allopurinoL 300 MG TAB PO SCH (20:58)
--- NOTE | 2021-03-23 21:15 | PN ---
PROGRESS NOTE DATE OF SERVICE: 03/23/2021 REASON FOR FOLLOWUP: Bilateral lower extremity wound cellulitis. The patient is afebrile. The patient is breathing comfortably. Patient denies having any chest pain or shortness of breath. No cough. No abdominal pain or diarrhea. PHYSICAL EXAMINATION: Blood pressure 100/52 with a pulse of 73, temperature 98.8. He is 92% on room air. General description is an elderly male lying in bed in no distress. Respiratory system: Unlabored breathing. Clear to auscultation anteriorly. Heart S1, S2. Regular rate and rhythm. Abdomen soft, no tenderness. Leg wound currently dressed. No obvious drainage on the dressing. LABS: Wound culture has not been switched over to reported presumptive MRSA. DIAGNOSTIC IMPRESSION AND PLAN: Patient with bilateral lower extremity wound with secondary cellulitis, right greater than left. Culture now with MSSA which was previously reported with MRSA. We will discontinue vancomycin. cefazolin 2 grams q.8 hours and monitor his clinical course closely. Continue supportive care. MMGURVINDERL / IJN: [id number] /
[2021-03-24] MEDS: metOLazone 5 MG TAB PO SCH (06:08)
[2021-03-24 06:45] LABS: Anisocytosis Moderate; HCT 29.9 % (39.0-53.0); Hypochromasia Marked; MCH 25.9 pg (25.0-35.0); MCHC 30.3 g/dL (31.0-37.0); MCV 85.5 fL (80.0-100.0); Mean Platelet Volume 7.6; Microcytosis Slight; Platelet Count 212 k/uL (150-450); Poikilocytosis Slight; RBC 3.49 m/uL (4.30-5.90); RDW 22.7 % (11.5-15.5); WBC 5.7 k/uL (3.8-10.6)
[2021-03-24 06:57] LABS: ALT <6 U/L (4-49); AST 23 U/L (17-59); African American GFR (CKD) 62 (>60 ml/min/1.73 sqM); Albumin 2.8 g/dL (3.5-5.0); Alkaline Phosphatase 149 U/L (38-126); Anion Gap 7 mmol/L; Blood Urea Nitrogen 56 mg/dL (9-20); Calcium 8.2 mg/dL (8.4-10.2); Carbon Dioxide 35 mmol/L (22-30); Chloride 99 mmol/L (98-107); Glucose 124 mg/dL (74-99); Non-African American GFR(CKD) 54 (>60 ml/min/1.73 sqM); Potassium 3.3 mmol/L (3.5-5.1); Sodium 141 mmol/L (137-145); Total Bilirubin 0.6 mg/dL (0.2-1.3); Total Protein 6.5 g/dL (6.3-8.2)
[2021-03-24] MEDS: carvediloL 12.5 MG TAB PO SCH ×2 (08:42→16:39)
[2021-03-24] MEDS: PANTOPRAZOLE 40 MG TABLET PO SCH ×2 (08:43→16:39)
[2021-03-24] MEDS: ISOSORBIDE MONONITRATE ER 30 MG TAB.ER.24H PO SCH (08:43)
[2021-03-24] MEDS: lisinopriL 20 MG TAB PO SCH (08:43)
[2021-03-24] MEDS: FERROUS SULFATE 325 MG TAB PO SCH (08:43)
[2021-03-24] MEDS: POTASSIUM CHLORIDE ER 20 MEQ TAB.ER PO SCH ×4 (08:43→16:38)
[2021-03-24] MEDS: FUROSEMIDE 40 MG TAB PO SCH ×2 (08:43→16:39)
[2021-03-24] MEDS: DIGOXIN 125 MCG TAB PO SCH (08:43)
[2021-03-24] MEDS: TAMSULOSIN 0.4 MG CAP.ER.24H PO SCH (08:44)
[2021-03-24] MEDS: SIMETHICONE 40 MG/0.6 ML DROPS 2,000 MG/30 ML BOTTLE PO SCH ×4 (08:53→21:26)
[2021-03-24 13:18] VITALS: BMI 34.4
--- NOTE | 2021-03-24 13:29 | P.PN ---
Subjective Principal diagnosis: Weakness with lower extremity hematoma and heart failure. The patient is 70-year-old white male with chronic systolic congestive heart failure related to atrial fibrillation who is developed lower extremity edema. [facility] but failed outpatient treatment. The patient had significant syncopal spell at the [facility] and is here for continued evaluation. Lower extremity wound is stable. Brief discussion with the wound care. The patient still looks fatigued. Objective - Vital Signs Vital signs: Vital Signs Temp 97.7 F 03/24/21 08:00 Pulse 87 03/24/21 08:00 Resp 20 03/24/21 08:00 BP 142/73 03/24/21 08:00 Pulse Ox 93 L 03/24/21 08:00 Intake & Output 03/23/21 03/24/21 03/24/21 18:59 06:59 18:59 Intake Total 700 240 Output Total 650 900 650 Balance 50 -900 -410 Weight 106 kg 106 kg Intake: Oral 700 240 Output: Urine 650 900 650 Other: Voiding Method Diaper External Catheter - Constitutional General appearance: Present: average body habitus - EENT Eyes: Absent: abnormal pupil - Neck Neck: Present: lymphadenopathy - Respiratory Respiratory: bilateral: CTA - Cardiovascular Rhythm: regular Heart sounds: normal: S1, S2 Abnormal Heart Sounds: Absent: S3 Gallop - Gastrointestinal General gastrointestinal: Present: soft. Absent: tenderness - Integumentary Integumentary: Present: cellulitis - Labs CBC & Chem 7: 03/24/21 06:18 03/24/21 06:18 Labs: Abnormal Lab Results - Last 24 Hours (Table) 03/24/21 03/24/21 03/24/21 Range/Units 06:18 06:18 06:19 RBC 3.49 L (4.30-5.90) m/uL Hgb 9.0 L (13.0-17.5) gm/dL Hct 29.9 L (39.0-53.0) % MCHC 30.3 L (31.0-37.0) g/dL RDW 22.7 H (11.5-15.5) % Potassium 3.3 L (3.5-5.1) mmol/L Carbon Dioxide 35 H (22-30) mmol/L BUN 56 H (9-20) mg/dL Creatinine 1.35 H (0.66-1.25) mg/dL Glucose 124 H (74-99) mg/dL Calcium 8.2 L (8.4-10.2) mg/dL Magnesium 1.3 L (1.6-2.3) mg/dL Alkaline Phosphatase 149 H (38-126) U/L Albumin 2.8 L (3.5-5.0) g/dL Assessment and Plan (1) Debility Current Visit: Yes Status: Acute Code(s): R53.81 - OTHER MALAISE SNOMED Code(s): 22771690 (2) History of atrial fibrillation Current Visit: Yes Status: Acute Code(s): Z86.79 - PERSONAL HISTORY OF OTHER DISEASES OF THE CIRCULATORY SYSTEM SNOMED Code(s): 750450498 (3) Hypokalemia Current Visit: Yes Status: Acute Code(s): E87.6 - HYPOKALEMIA SNOMED Code(s): 52529956 (4) Acute on chronic systolic CHF (congestive heart failure) Current Visit: No Status: Acute Code(s): I50.23 - ACUTE ON CHRONIC SYSTOLIC (CONGESTIVE) HEART FAILURE SNOMED Code(s): 886617650 (5) Chronic atrial fibrillation Current Visit: No Status: Acute Code(s): I48.2 - CHRONIC ATRIAL FIBRILLATION * DO NOT USE * SNOMED Code(s): 147417211 (6) Chronic venous stasis dermatitis of both lower extremities Current Visit: No Status: Acute Code(s): I87.2 - VENOUS INSUFFICIENCY (CHRONIC) (PERIPHERAL) SNOMED Code(s): 10970465 (7) NICM (nonischemic cardiomyopathy) Current Visit: No Status: Acute Code(s): I42.8 - OTHER CARDIOMYOPATHIES SNOMED Code(s): 50313364 Plan: Continue current regimen of treatment. Anticipate change of antibiotic treatment as discussed with the patient. Check CBC and CMP in a.m. Increase ambulation as possible. I suspect the patient will need to be returned back to rehab. Continue current regimen and about her treatment.
[2021-03-24] MEDS ORDERED: Potassium Replacement Protocol 1 EACH MISC MISCELLANE PRN (14:10)
[2021-03-24] MEDS ORDERED: Magnesium Replacement Protocol 1 EACH MISC MISCELLANE PRN (14:13)
[2021-03-24] MEDS: MAGNESIUM SULFATE-D5W PMX 1 GM in DEXTROSE/WATER 1 100ML.BAG IVPB SCH ×3 (15:07→19:47)
[2021-03-24] MEDS: ALBUTEROL NEBULIZED 2.5 MG/3 ML INHALATION PRN (15:51)
--- NOTE | 2021-03-24 18:30 | PN ---
PROGRESS NOTE DATE OF SERVICE: 03/24/2021 REASON FOR FOLLOWUP: Bilateral lower extremity wound cellulitis. INTERVAL HISTORY: Patient is afebrile. Patient is breathing comfortably. Patient denies having any chest pain, shortness of breath, cough, no abdominal pain, or any worsening pain to the right leg. PHYSICAL EXAMINATION: Blood pressure 103/59, pulse of 80, temperature of 98.5. He is 96% on room air. General description is an elderly male lying in bed in no distress. Respiratory system: Unlabored breathing, clear to auscultation anteriorly. Heart S1, S2. Regular rate and rhythm. Abdomen soft, no tenderness. Right leg wounds are currently dressed. No obvious drainage on the dressing. LABS: Hemoglobin 9, white count 5.7, BUN of 56, creatinine 1.35. DIAGNOSTIC IMPRESSION AND PLAN: Patient with bilateral lower extremity wound with secondary cellulitis, right greater than left. Wound culture with MSSA. The patient is covered with cefazolin that will be transitioned to oral Keflex on discharge. Local care to continue with Aquacel Silver dressing and Kahlil wrap for compression. Continue supportive care. MMODL / IJN: [id number] /
[2021-03-24] MEDS: allopurinoL 300 MG TAB PO SCH (19:47)
[2021-03-24] MEDS: MAGNESIUM OXIDE 400 MG TAB PO SCH (19:47)
[2021-03-25 02:57] LABS: Anisocytosis Moderate; HCT 30.3 % (39.0-53.0); HGB 9.3 gm/dL (13.0-17.5); Hypochromasia Marked; MCH 26.1 pg (25.0-35.0); MCHC 30.5 g/dL (31.0-37.0); MCV 85.5 fL (80.0-100.0); Mean Platelet Volume 9.4; Microcytosis Slight; Platelet Count 201 k/uL (150-450); Poikilocytosis Slight; RBC 3.55 m/uL (4.30-5.90); RDW 22.9 % (11.5-15.5); WBC 6.2 k/uL (3.8-10.6)
[2021-03-25] MEDS ORDERED: VANCOMYCIN TROUGH DUE 1 EACH MISC MISCELLANE ONE (03:00)
[2021-03-25 03:05] LABS: Albumin 2.8 g/dL (3.5-5.0); Calcium 8.4 mg/dL (8.4-10.2); Magnesium 1.8 mg/dL (1.6-2.3); Potassium 3.5 mmol/L (3.5-5.1); Total Protein 6.6 g/dL (6.3-8.2)
[2021-03-25 03:06] LABS: Total Bilirubin 0.6 mg/dL (0.2-1.3)
[2021-03-25] MEDS: metOLazone 5 MG TAB PO SCH (06:34)
[2021-03-25] MEDS: TAMSULOSIN 0.4 MG CAP.ER.24H PO SCH (08:10)
[2021-03-25] MEDS: FUROSEMIDE 40 MG TAB PO SCH ×2 (08:10→16:30)
[2021-03-25] MEDS: PANTOPRAZOLE 40 MG TABLET PO SCH ×2 (08:10→16:30)
[2021-03-25] MEDS: carvediloL 12.5 MG TAB PO SCH ×2 (08:10→16:30)
[2021-03-25] MEDS: POTASSIUM CHLORIDE ER 20 MEQ TAB.ER PO SCH ×2 (08:10→16:30)
[2021-03-25] MEDS: FERROUS SULFATE 325 MG TAB PO SCH (08:10)
[2021-03-25] MEDS: lisinopriL 20 MG TAB PO SCH (08:10)
[2021-03-25] MEDS: SIMETHICONE 40 MG/0.6 ML DROPS 2,000 MG/30 ML BOTTLE PO SCH ×4 (08:10→20:02)
[2021-03-25] MEDS: DIGOXIN 125 MCG TAB PO SCH (08:10)
[2021-03-25] MEDS: ISOSORBIDE MONONITRATE ER 30 MG TAB.ER.24H PO SCH (08:10)
[2021-03-25] MEDS: ALBUTEROL NEBULIZED 2.5 MG/3 ML INHALATION PRN (12:50)
[2021-03-25] MEDS: MAGNESIUM OXIDE 400 MG TAB PO SCH (20:02)
[2021-03-25] MEDS: allopurinoL 300 MG TAB PO SCH (20:02)
--- NOTE | 2021-03-25 21:07 | P.PN ---
Progress Note - Text Progress Note Date: 03/25/21 REASON FOR FOLLOWUP: Bilateral lower extremity wound cellulitis. INTERVAL HISTORY: Patient remains to be afebrile. Patient is breathing comfortably. Patient denies having any chest pain, shortness of breath, cough, no abdominal pain, pain to the right leg has decreased in intensity. PHYSICAL EXAMINATION: Blood pressure 110/60, pulse of 70, temperature of 98.5. He is 96% on room air. General description is an elderly male lying in bed in no distress. Respiratory system: Unlabored breathing, clear to auscultation anteriorly. Heart S1, S2. Regular rate and rhythm. Abdomen soft, no tenderness. Right leg wounds are currently dressed. No obvious drainage on the dressing. LABS: reviewed DIAGNOSTIC IMPRESSION AND PLAN: Patient with bilateral lower extremity wound with secondary cellulitis, right greater than left. Wound culture with MSSA. The patient to continue with cefazolin with plan for oral Keflex on discharge. Local care to continue with Aquacel Silver dressing and Kahlil wrap for compression. Continue supportive care.
--- NOTE | 2021-03-25 22:54 | P.PN ---
Subjective Principal diagnosis: Weakness with lower extremity hematoma and heart failure. The patient is 70-year-old white male with chronic systolic congestive heart failure related to atrial fibrillation who is developed lower extremity edema. [facility] but failed outpatient treatment. The patient had significant syncopal spell at the [facility] and is here for continued evaluation. Lower extremity wound is stable. Brief discussion with the wound care. The patient still looks fatigued. Appreciate multiple consultants input. Discussion of restarting anticoagulation soon Continue antibiotic treatment. Objective - Vital Signs Vital signs: Vital Signs Temp 98.2 F 03/25/21 20:00 Pulse 96 03/25/21 20:00 Resp 18 03/25/21 20:00 BP 143/64 03/25/21 20:00 Pulse Ox 96 03/25/21 20:00 Intake & Output 03/25/21 03/25/21 03/26/21 06:59 18:59 06:59 Intake Total 350 480 Output Total 1200 1150 440 Balance -850 -670 -440 Weight 74.5 kg Intake: Oral 350 480 Output: Urine 1200 1150 440 Other: Voiding Method Diaper External Catheter # Bowel Movements 1 - Constitutional General appearance: Present: obese - EENT Eyes: Absent: abnormal pupil, anicteric sclerae - Neck Neck: Absent: lymphadenopathy - Respiratory Respiratory: bilateral: diminished - Cardiovascular Rhythm: irregularly irregular Heart sounds: normal: S1, S2 Abnormal Heart Sounds: Absent: S3 Gallop - Gastrointestinal General gastrointestinal: Present: soft. Absent: tenderness - Psychiatric Psychiatric: Present: A&O x's 3, appropriate affect - Labs CBC & Chem 7: 03/25/21 02:44 03/25/21 02:44 Labs: Abnormal Lab Results - Last 24 Hours (Table) 03/25/21 03/25/21 03/25/21 Range/Units 02:44 02:44 02:44 RBC 3.55 L (4.30-5.90) m/uL Hgb 9.3 L (13.0-17.5) gm/dL Hct 30.3 L (39.0-53.0) % MCHC 30.5 L (31.0-37.0) g/dL RDW 22.9 H (11.5-15.5) % Carbon Dioxide 32 H (22-30) mmol/L BUN 64 H (9-20) mg/dL Creatinine 1.40 H 1.44 H (0.66-1.25) mg/dL Glucose 175 H (74-99) mg/dL Alkaline Phosphatase 146 H (38-126) U/L Albumin 2.8 L (3.5-5.0) g/dL Assessment and Plan (1) Debility Current Visit: Yes Status: Acute Code(s): R53.81 - OTHER MALAISE SNOMED Code(s): 93948694 (2) History of atrial fibrillation Current Visit: Yes Status: Acute Code(s): Z86.79 - PERSONAL HISTORY OF OTHER DISEASES OF THE CIRCULATORY SYSTEM SNOMED Code(s): 696620543 (3) Hypokalemia Current Visit: Yes Status: Acute Code(s): E87.6 - HYPOKALEMIA SNOMED Code(s): 09614141 (4) Acute on chronic systolic CHF (congestive heart failure) Current Visit: No Status: Acute Code(s): I50.23 - ACUTE ON CHRONIC SYSTOLIC (CONGESTIVE) HEART FAILURE SNOMED Code(s): 006676562 (5) Chronic atrial fibrillation Current Visit: No Status: Acute Code(s): I48.2 - CHRONIC ATRIAL FIBRILLATION * DO NOT USE * SNOMED Code(s): 171999873 (6) Chronic venous stasis dermatitis of both lower extremities Current Visit: No Status: Acute Code(s): I87.2 - VENOUS INSUFFICIENCY (CHRONIC) (PERIPHERAL) SNOMED Code(s): 85956558 (7) NICM (nonischemic cardiomyopathy) Current Visit: No Status: Acute Code(s): I42.8 - OTHER CARDIOMYOPATHIES SNOMED Code(s): 78298397 Plan: Continue current regimen of treatment. Anticipate change of antibiotic treatment as discussed with the patient. Check CBC and CMP in a.m. Increase ambulation as possible. I suspect the patient will need to be returned back to rehab. Continue current regimen and about her treatment.
[2021-03-26] MEDS: metOLazone 5 MG TAB PO SCH (06:39)
[2021-03-26 07:52] VITALS: RESP 20
[2021-03-26 08:04] LABS: Anisocytosis Moderate; HCT 31.3 % (39.0-53.0); HGB 9.4 gm/dL (13.0-17.5); Hypochromasia Marked; MCH 26.2 pg (25.0-35.0); MCV 87.4 fL (80.0-100.0); Macrocytosis Slight; Mean Platelet Volume 7.8; Microcytosis Slight; Platelet Count 212 k/uL (150-450); Poikilocytosis Slight; RBC 3.58 m/uL (4.30-5.90)
[2021-03-26] MEDS: lisinopriL 20 MG TAB PO SCH (08:20)
[2021-03-26] MEDS: PANTOPRAZOLE 40 MG TABLET PO SCH ×2 (08:20→16:26)
[2021-03-26] MEDS: POTASSIUM CHLORIDE ER 20 MEQ TAB.ER PO SCH ×2 (08:20→16:26)
[2021-03-26] MEDS: carvediloL 12.5 MG TAB PO SCH ×2 (08:20→16:26)
[2021-03-26] MEDS: ISOSORBIDE MONONITRATE ER 30 MG TAB.ER.24H PO SCH (08:20)
[2021-03-26] MEDS: FERROUS SULFATE 325 MG TAB PO SCH (08:20)
[2021-03-26] MEDS: FUROSEMIDE 40 MG TAB PO SCH ×2 (08:20→16:26)
[2021-03-26] MEDS: DIGOXIN 125 MCG TAB PO SCH (08:20)
[2021-03-26] MEDS: TAMSULOSIN 0.4 MG CAP.ER.24H PO SCH (08:20)
[2021-03-26] MEDS: SIMETHICONE 40 MG/0.6 ML DROPS 2,000 MG/30 ML BOTTLE PO SCH ×3 (08:21→16:26)
[2021-03-26 08:32] LABS: ALT <6 U/L (4-49); AST 25 U/L (17-59); African American GFR (CKD) 71 (>60 ml/min/1.73 sqM); Albumin 3.1 g/dL (3.5-5.0); Alkaline Phosphatase 154 U/L (38-126); Anion Gap 8 mmol/L; Blood Urea Nitrogen 59 mg/dL (9-20); Calcium 8.7 mg/dL (8.4-10.2); Carbon Dioxide 32 mmol/L (22-30); Chloride 98 mmol/L (98-107); Glucose 151 mg/dL (74-99); Non-African American GFR(CKD) 61 (>60 ml/min/1.73 sqM); Potassium 3.5 mmol/L (3.5-5.1); Sodium 138 mmol/L (137-145); Total Bilirubin 0.8 mg/dL (0.2-1.3); Total Protein 6.9 g/dL (6.3-8.2)
[2021-03-26 11:55] VITALS: BP 91/52; PULSE 76; TEMP 98.1
--- NOTE | 2021-03-26 14:13 | P.DS ---
Providers Date of admission: 03/20/21 17:46 Attending physician: Wiliam Modi Consults: 03/20/21 20:36 Consult Physician Routine Consulting Provider: Vianca Calles Consult Reason/Comments: cellulitis Do you want consulting provider notified?: Yes, Notify in am Primary care physician: Wiliam Modi - Discharge Diagnosis(es) (1) Debility Current Visit: Yes Status: Acute (2) History of atrial fibrillation Current Visit: Yes Status: Acute (3) Hypokalemia Current Visit: Yes Status: Acute (4) Acute on chronic systolic CHF (congestive heart failure) Current Visit: No Status: Acute (5) Chronic atrial fibrillation Current Visit: No Status: Acute (6) Chronic venous stasis dermatitis of both lower extremities Current Visit: No Status: Acute (7) NICM (nonischemic cardiomyopathy) Current Visit: No Status: Acute Hospital Course: This discharge summary 70-year-old white male essentially admitted for lower extremity cellulitis and weakness with congestive heart failure and syncope. Cardiology has withheld anticoagulation given history of GI bleed. The patient is now been cleared ambulating with difficulty and needs to be transferred back to rehab. The patient will be continued with Keflex antibiotic treatment for the next 10 days and follow-up with me once he is discharged from the longterm. Patient Condition at Discharge: Serious Plan - Discharge Summary Discharge Rx Participant: Yes New Discharge Prescriptions: New Cephalexin [Keflex] 500 mg PO Q6HR 10 Days #40 cap Continue Tamsulosin HCl [Flomax] 0.8 mg PO DAILY@0800 Isosorbide Mononitrate ER [Imdur] 30 mg PO DAILY@0800 allopurinoL [Zyloprim] 300 mg PO HS@2100 Potassium Chloride 20 meq PO BID@0800,1700 Naproxen 500 mg PO BID@0800,1700 Carvedilol [Coreg] 25 mg PO BID@0800,1700 metOLazone [Zaroxolyn] 5 mg PO DAILY@0600 lisinopriL [Zestril] 20 mg PO DAILY@0800 Digoxin [Lanoxin] 125 mcg PO DAILY@0800 SILVER sulfADIAZINE CREAM [Silvadene Cream] 1 applic TOPICAL DAILY@0800 Magnesium Oxide 400 mg PO HS@2100 Warfarin [Coumadin] 3 mg PO SUMOWETHFR HYDROcodone/APAP 5-325MG [Linden 5-325] 1 tab PO Q6HR PRN 3 Days #12 tab PRN Reason: Pain Na Phos,M-B/Na Phos,Di-Ba [Fleet Adult] 133 ml RECTAL DAILY PRN PRN Reason: Constipation Liquacel 30 ml PO BID@0800,1700 Warfarin 4.5mg 4.5 mg PO TUSA Albuterol Nebulized [Ventolin Nebulized] 2.5 mg INHALATION RT-Q6H PRN PRN Reason: Shortness Of Breath bisacodyL [Dulcolax] 10 mg RECTAL DAILY PRN PRN Reason: Constipation Simethicone 40 mg/0.6 ml Drops [Mylicon Drops] 100 mg PO QID@08,12,, Pantoprazole [Protonix] 40 mg PO BID@0800,1700 Furosemide [Lasix] 40 mg PO BID@0800,1700 Ferrous Sulfate [Iron (65 MG Elemental)] 325 mg PO DAILY@0800 Magnesium Hydroxide [Milk of Magnesia] 2,400 mg PO DAILY PRN PRN Reason: Constipation Discharge Medication List Isosorbide Mononitrate ER [Imdur] 30 mg PO DAILY@0800 04/11/14 [History] Tamsulosin HCl [Flomax] 0.8 mg PO DAILY@0800 04/11/14 [History] allopurinoL [Zyloprim] 300 mg PO HS@209903/03/16 [History] Carvedilol [Coreg] 25 mg PO BID@0800,1700 04/25/18 [History] Naproxen 500 mg PO BID@0800,1700 04/25/18 [History] Potassium Chloride 20 meq PO BID@0800,1700 04/25/18 [History] lisinopriL [Zestril] 20 mg PO DAILY@0800 04/25/18 [History] metOLazone [Zaroxolyn] 5 mg PO DAILY@0600 04/25/18 [History] Digoxin [Lanoxin] 125 mcg PO DAILY@0800 06/09/18 [History] Magnesium Oxide 400 mg PO HS@209912/29/20 [History] SILVER sulfADIAZINE CREAM [Silvadene Cream] 1 applic TOPICAL DAILY@0812/29/20 [History] Albuterol Nebulized [Ventolin Nebulized] 2.5 mg INHALATION RT-Q6H PRN 02/27/21 [History] Warfarin [Coumadin] 3 mg PO SUMOWETHFR 02/27/21 [History] HYDROcodone/APAP 5-325MG [Linden 5-325] 1 tab PO Q6HR PRN 3 Days #12 tab 03/17/21 [Rx] Ferrous Sulfate [Iron (65 MG Elemental)] 325 mg PO DAILY@0800 03/20/21 [History] Furosemide [Lasix] 40 mg PO BID@0800,1700 03/20/21 [History] Liquacel 30 ml PO BID@0800,1700 03/20/21 [History] Magnesium Hydroxide [Milk of Magnesia] 2,400 mg PO DAILY PRN 03/20/21 [History] Na Phos,M-B/Na Phos,Di-Ba [Fleet Adult] 133 ml RECTAL DAILY PRN 03/20/21 [History] Pantoprazole [Protonix] 40 mg PO BID@0800,1700 03/20/21 [History] Simethicone 40 mg/0.6 ml Drops [Mylicon Drops] 100 mg PO QID@08,12,17,21 03/20/21 [History] Warfarin 4.5mg 4.5 mg PO TUSA 03/20/21 [History] bisacodyL [Dulcolax] 10 mg RECTAL DAILY PRN 03/20/21 [History] Cephalexin [Keflex] 500 mg PO Q6HR 10 Days #40 cap 03/26/21 [Rx] Follow up Appointment(s)/Referral(s): [facility] [Provider Group] - 1 Week Wiliam Modi MD [Primary Care Provider] - 1 Week
--- NOTE | 2021-03-26 14:47 | PN ---
PROGRESS NOTE DATE OF SERVICE: 03/26/2021 REASON FOR FOLLOWUP: Bilateral lower extremity wounds and cellulitis. INTERVAL HISTORY: The patient is afebrile. The patient is currently breathing comfortably. Denies having any chest pain, shortness of breath or cough. No abdominal pain or pain to the lower extremities. PHYSICAL EXAMINATION: Blood pressure is 91/52 with a pulse of 73, temperature 98.1. He is 93% on room air. GENERAL DESCRIPTION: General description is an elderly male lying in bed in no distress. RESPIRATORY SYSTEM: Unlabored breathing. Clear to auscultation anteriorly. HEART: S1, S2. Regular rate and rhythm. ABDOMEN: Soft. No tenderness. Legs are currently wrapped up. No obvious drainage on the dressing. LABS: Hemoglobin is 9.4, white count 7.0, BUN of 59, creatinine 1.21. DIAGNOSTIC IMPRESSION AND PLAN: Patient with bilateral lower extremity wounds with cellulitis. Cultures are positive for MSSA. The patient is covered with cefazolin. Will be transitioned to oral Keflex on discharge. Local wound care with Aquacel Silver dressing with close outpatient followup. MMODL / IJN: [id number] /
== END 2021-03-26 17:16 | DRG 602 ==
LOC: EC 14:47 → 3SCARD 17:46
PROVIDERS: ADMIT Family Medicine; ATTEND Family Medicine
DX: L03.115 Cellulitis of right lower limb (principal); I50.23 Acute on chronic systolic (congestive) heart failure; L97.919 Non-pressure chronic ulcer of unspecified part of right lower leg with unspecified severity; L97.929 Non-pressure chronic ulcer of unspecified part of left lower leg with unspecified severity; J96.11 Chronic respiratory failure with hypoxia; E44.1 Mild protein-calorie malnutrition; I13.0 Hypertensive heart and chronic kidney disease with heart failure and stage 1 through stage 4 chronic kidney disease, or unspecified chronic kidney disease; I42.8 Other cardiomyopathies; I48.20 Chronic atrial fibrillation, unspecified; L03.116 Cellulitis of left lower limb; J44.9 Chronic obstructive pulmonary disease, unspecified; M19.041 Primary osteoarthritis, right hand; M19.042 Primary osteoarthritis, left hand; Z20.822 Contact with and (suspected) exposure to COVID-19; M17.0 Bilateral primary osteoarthritis of knee; I87.8 Other specified disorders of veins; N18.30 Chronic kidney disease, stage 3 unspecified; N40.0 Benign prostatic hyperplasia without lower urinary tract symptoms; I73.9 Peripheral vascular disease, unspecified; B95.61 Methicillin susceptible Staphylococcus aureus infection as the cause of diseases classified elsewhere; D63.1 Anemia in chronic kidney disease; Z68.34 Body mass index [BMI] 34.0-34.9, adult; I95.9 Hypotension, unspecified; E83.42 Hypomagnesemia; E86.0 Dehydration; E87.6 Hypokalemia; R77.8 Other specified abnormalities of plasma proteins; G47.33 Obstructive sleep apnea (adult) (pediatric); Z99.81 Dependence on supplemental oxygen; I48.0 Paroxysmal atrial fibrillation; I49.3 Ventricular premature depolarization; I87.2 Venous insufficiency (chronic) (peripheral); S80.10XA Contusion of unspecified lower leg, initial encounter; I08.3 Combined rheumatic disorders of mitral, aortic and tricuspid valves; I27.20 Pulmonary hypertension, unspecified; Z79.01 Long term (current) use of anticoagulants; Z79.899 Other long term (current) drug therapy; Z83.3 Family history of diabetes mellitus; Z86.14 Personal history of Methicillin resistant Staphylococcus aureus infection; Z87.01 Personal history of pneumonia (recurrent); Z87.11 Personal history of peptic ulcer disease; Z87.891 Personal history of nicotine dependence; Z82.0 Family history of epilepsy and other diseases of the nervous system; Z83.518 Family history of other specified eye disorder; Z79.1 Long term (current) use of non-steroidal anti-inflammatories (NSAID)
CPT/HCPCS: 36415; 71046; 80048; 80053; 80202; 81003; 82565; 83735; 84132; 84484; 85025; 85027; 85610; 85730; 87070; 87075; 87077; 87186; 87205; 87635; 93005; 93308; 94640; 96374; 99285

== ENCOUNTER 2021-03-27 16:57 | Inpatient (IN) | payer MEDICARE, BC ==
[2021-03-27] MEDS ORDERED: SODIUM CHLORIDE 0.9% 1,000 ML IV STA (17:17)
--- NOTE | 2021-03-27 17:23 | ED ---
General Adult HPI - General Chief complaint: Syncope Stated complaint: Syncope Time Seen by Provider: 03/27/21 17:10 Source: patient, EMS, RN notes reviewed Mode of arrival: EMS Limitations: no limitations - History of Present Illness Initial comments: Patient is a pleasant 70-year-old male presenting to the emergency department following an unresponsive episode. Episode occurred prior to arrival. [facility] was [facility] the [facility] when he reportedly became unresponsive for 1-2 minutes. Patient does not recall this episode. Patient reportedly also had low blood pressure. Patient reportedly also had some complaints of abdominal discomfort. Patient denies any discomfort at this time and does not recall complaining of discomfort earlier. No headache or confusion. No chest pain or dyspnea. No back or abdominal pain. Patient has chronic leg weakness and does not ambulate. Patient states his only complaint is being tired at this time. - Related Data Home Medications Medication Instructions Recorded Confirmed Isosorbide Mononitrate ER [Imdur] 30 mg PO DAILY@0800 04/11/14 03/27/21 Tamsulosin HCl [Flomax] 0.8 mg PO DAILY@0800 04/11/14 03/27/21 allopurinoL [Zyloprim] 300 mg PO HS@209903/03/16 03/27/21 Carvedilol [Coreg] 25 mg PO BID@0800,1700 04/25/18 03/27/21 Naproxen 500 mg PO BID@0800,1700 04/25/18 03/27/21 Potassium Chloride 20 meq PO BID@0800,1700 04/25/18 03/27/21 lisinopriL [Zestril] 20 mg PO DAILY@0800 04/25/18 03/27/21 metOLazone [Zaroxolyn] 5 mg PO DAILY@0800 04/25/18 03/27/21 Digoxin [Lanoxin] 125 mcg PO DAILY@0800 06/09/18 03/27/21 Magnesium Oxide 400 mg PO HS@209912/29/20 03/27/21 SILVER sulfADIAZINE CREAM 1 applic TOPICAL DAILY@0800 12/29/20 03/27/21 [Silvadene Cream] Albuterol Nebulized [Ventolin 2.5 mg INHALATION RT-Q6H PRN 02/27/21 03/27/21 Nebulized] Warfarin [Coumadin] 3 mg PO SUMOWETHFR 02/27/21 03/27/21 Ferrous Sulfate [Iron (65 MG 325 mg PO DAILY@0800 03/20/21 03/27/21 Elemental)] Furosemide [Lasix] 40 mg PO BID@0600,1400 03/20/21 03/27/21 Liquacel 30 ml PO BID@0800,1700 03/20/21 03/27/21 Magnesium Hydroxide [Milk of 2,400 mg PO DAILY PRN 03/20/21 03/27/21 Magnesia] Na Phos,M-B/Na Phos,Di-Ba [Fleet 133 ml RECTAL DAILY PRN 03/20/21 03/27/21 Adult] Pantoprazole [Protonix] 40 mg PO BID@0800,1700 03/20/21 03/27/21 Simethicone 40 mg/0.6 ml Drops 100 mg PO QID@08,12,17,21 03/20/21 03/27/21 [Mylicon Drops] bisacodyL [Dulcolax] 10 mg RECTAL DAILY PRN 03/20/21 03/27/21 Menthol-Zinc Oxide Oint 1 applic TOPICAL BID 03/27/21 03/27/21 [Calmoseptine Oint] Warfarin [Coumadin] 2 mg PO TUSA@1800 03/27/21 03/27/21 Warfarin [Coumadin] 2.5 mg PO TUSA@1800 03/27/21 03/27/21 Previous Rx's Medication Instructions Recorded HYDROcodone/APAP 5-325MG [[place] 1 tab PO Q6HR PRN 3 Days #12 tab 03/17/21 5-325] Cephalexin [Keflex] 500 mg PO Q6HR 10 Days #40 cap 03/26/21 Allergies Allergy/AdvReac Type Severity Reaction Status Date / Time No Known Allergies Allergy Verified 03/27/21 17:23 Review of Systems ROS Statement: Those systems with pertinent positive or pertinent negative responses have been documented in the HPI. ROS Other: All systems not noted in ROS Statement are negative. Constitutional: Denies: fever Eyes: Denies: eye pain ENT: Denies: ear pain Respiratory: Denies: cough, dyspnea Cardiovascular: Denies: chest pain Endocrine: Reports: fatigue Gastrointestinal: Denies: abdominal pain Genitourinary: Denies: urgency Musculoskeletal: Denies: back pain Skin: Denies: rash Neurological: Reports: as per HPI. Denies: headache Past Medical History Past Medical History: Atrial Fibrillation, Heart Failure, COPD, Hypertension, Os teoarthritis (OA), Pneumonia, Prostate Disorder, Renal Disease, Sleep Apnea/CPAP/BIPAP, Vascular Disorder Additional Past Medical History / Comment(s): Nonischemic cardiomyopathy, cardiac valve disease, bronchitis, JIMMIE with Cpap and O2 at 2L at hs, past decreased renal function, arthritis bilateral hands/knees, gout bilateral feet, numbness bilateral legs/feet, carpal tunnel syndrome bilaterally, bilateral hand tremors, nonhealing bilateral lower leg wounds/cellulitis, varicosities, lower leg/pedal edema, PVD, BPH. History of Any Multi-Drug Resistant Organisms: MRSA Date of last positivie culture/infection: 08/30/12 MDRO Source:: LEG(not sure which) Past Surgical History: Heart Catheterization Additional Past Surgical History / Comment(s): Split thickness skin graft to L leg, bronchoscopy, cyst and partial jaw removed/has screws, oral surgery age 8- too many teeth. Past Anesthesia/Blood Transfusion Reactions: Previous Problems w/ Anesthesia Additional Past Anesthesia/Blood Transfusion Reaction / Comment(s): STATED DURING BRONCH STOPPED BREATHING, (brochoscopy done at [facility]-record on chart) Past Psychological History: Anxiety Smoking Status: Never smoker Past Alcohol Use History: None Reported Past Drug Use History: None Reported - Past Family History Father Family Medical History: Dementia, Eye Disorder Additional Family Medical History / Comment(s): MACULAR DEGENERATION Mother Family Medical History: Diabetes Mellitus, Eye Disorder, Vascular Disorder Additional Family Medical History / Comment(s): ANEURYSMS, CATARACTS. General Exam Limitations: no limitations General appearance: alert, in no apparent distress Head exam: Present: atraumatic, normocephalic Eye exam: Present: normal appearance, PERRL, EOMI ENT exam: Present: normal oropharynx Neck exam: Present: normal inspection Respiratory exam: Present: normal lung sounds bilaterally Cardiovascular Exam: Present: irregular rhythm Expanded Peripheral pulses: 2+: Radial (R), Radial (L), Dorsalis Pedis (R), Dorsalis Pedis (L) GI/Abdominal exam: Present: soft, normal bowel sounds. Absent: distended, tenderness, guarding, rebound, rigid, pulsatile mass Extremities exam: Present: pedal edema Neurological exam: Present: alert, oriented X3, CN II-XII intact Expanded Neurological exam: Present: protecting the airway Patient oriented to: Present: person, place, time Speech: Present: fluid speech Motor strength exam: RUE: 5, LUE: 5, RLE: 2/1, LLE: 2/1 Eye Response: (4) open spontaneously Motor Response: (6) obeys commands Verbal Response: (5) oriented Psychiatric exam: Present: normal affect, normal mood Skin exam: Present: other (Chronic venous insufficiency bilateral legs) Course Vital Signs 03/27/21 03/27/21 17:02 18:08 Temperature 97.7 F Pulse Rate 60 64 Respiratory 18 18 Rate Blood Pressure 103/63 95/57 O2 Sat by Pulse 98 99 Oximetry EKG Findings - EKG Comments: EKG Findings:: A. fib with rate of 71. QRS 126. QT 420. QTc 460 left axis. LVH. Septal Q waves. No acute ST change. Medical Decision Making - Medical Decision Making Patient reevaluated and resting comfortably in bed. Patient updated on results and plan. Case was discussed with Dr. Bunn, who will admit covering Dr. Modi. - Lab Data Result diagrams: 03/27/21 17:20 03/27/21 17:20 Lab Results 03/27/21 03/27/21 03/27/21 Range/Units 17:20 17:20 17:20 WBC 6.2 (3.8-10.6) k/uL RBC 3.41 L (4.30-5.90) m/uL Hgb 9.1 L (13.0-17.5) gm/dL Hct 29.9 L (39.0-53.0) % MCV 87.7 (80.0-100.0) fL MCH 26.8 (25.0-35.0) pg MCHC 30.5 L (31.0-37.0) g/dL RDW 23.2 H (11.5-15.5) % Plt Count 187 (150-450) k/uL MPV 8.7 Neutrophils % 78 % Lymphocytes % 10 % Monocytes % 5 % Eosinophils % 4 % Basophils % 0 % Neutrophils # 4.9 (1.3-7.7) k/uL Lymphocytes # 0.7 L (1.0-4.8) k/uL Monocytes # 0.3 (0-1.0) k/uL Eosinophils # 0.3 (0-0.7) k/uL Basophils # 0.0 (0-0.2) k/uL Hypochromasia Marked Poikilocytosis Slight Anisocytosis Moderate Microcytosis Slight Macrocytosis Slight PT 12.0 (9.0-12.0) sec INR 1.2 H (<1.2) APTT 23.4 (22.0-30.0) sec Sodium 136 L (137-145) mmol/L Potassium 3.9 (3.5-5.1) mmol/L Chloride 99 (98-107) mmol/L Carbon Dioxide 29 (22-30) mmol/L Anion Gap 8 mmol/L BUN 78 H (9-20) mg/dL Creatinine 1.79 H (0.66-1.25) mg/dL Est GFR (CKD-EPI)AfAm 44 (>60 ml/min/1.73 sqM) Est GFR (CKD-EPI)NonAf 38 (>60 ml/min/1.73 sqM) Glucose 190 H (74-99) mg/dL Calcium 8.3 L (8.4-10.2) mg/dL Magnesium 1.5 L (1.6-2.3) mg/dL Total Bilirubin 1.1 (0.2-1.3) mg/dL AST 26 (17-59) U/L ALT 6 (4-49) U/L Alkaline Phosphatase 149 H (38-126) U/L Troponin I (0.000-0.034) ng/mL Total Protein 6.5 (6.3-8.2) g/dL Albumin 2.9 L (3.5-5.0) g/dL 03/27/21 Range/Units 17:20 WBC (3.8-10.6) k/uL RBC (4.30-5.90) m/uL Hgb (13.0-17.5) gm/dL Hct (39.0-53.0) % MCV (80.0-100.0) fL MCH (25.0-35.0) pg MCHC (31.0-37.0) g/dL RDW (11.5-15.5) % Plt Count (150-450) k/uL MPV Neutrophils % % Lymphocytes % % Monocytes % % Eosinophils % % Basophils % % Neutrophils # (1.3-7.7) k/uL Lymphocytes # (1.0-4.8) k/uL Monocytes # (0-1.0) k/uL Eosinophils # (0-0.7) k/uL Basophils # (0-0.2) k/uL Hypochromasia Poikilocytosis Anisocytosis Microcytosis Macrocytosis PT (9.0-12.0) sec INR (<1.2) APTT (22.0-30.0) sec Sodium (137-145) mmol/L Potassium (3.5-5.1) mmol/L Chloride (98-107) mmol/L Carbon Dioxide (22-30) mmol/L Anion Gap mmol/L BUN (9-20) mg/dL Creatinine (0.66-1.25) mg/dL Est GFR (CKD-EPI)AfAm (>60 ml/min/1.73 sqM) Est GFR (CKD-EPI)NonAf (>60 ml/min/1.73 sqM) Glucose (74-99) mg/dL Calcium (8.4-10.2) mg/dL Magnesium (1.6-2.3) mg/dL Total Bilirubin (0.2-1.3) mg/dL AST (17-59) U/L ALT (4-49) U/L Alkaline Phosphatase (38-126) U/L Troponin I 0.060 H* (0.000-0.034) ng/mL Total Protein (6.3-8.2) g/dL Albumin (3.5-5.0) g/dL - Radiology Data Radiology results: report reviewed (Computed tomography scan of the brain shows atrophy. No acute intercranial abnormality. Computed tomography scan abdomen and pelvis shows cholelithiasis. Moderate splint or megaly. No acute abnormality.), image reviewed (Chest x-ray shows atelectasis. No heart failure. Poor inspiration.) Disposition Clinical Impression: Syncope Disposition: ADMITTED IP TO THIS [facility] Is patient prescribed a controlled substance at d/c from ED?: No Referrals: Wiliam Modi MD [Primary Care Provider] - 1-2 days Decision Time: 19:37
[2021-03-27 17:30] LABS: Anisocytosis Moderate; Basophils % (A) 0 %; Eosinophils # (A) 0.3 k/uL (0-0.7); Eosinophils % (A) 4 %; HCT 29.9 % (39.0-53.0); HGB 9.1 gm/dL (13.0-17.5); Hypochromasia Marked; Lymphocytes # (A) 0.7 k/uL (1.0-4.8); Lymphocytes % (A) 10 %; MCH 26.8 pg (25.0-35.0); MCHC 30.5 g/dL (31.0-37.0); MCV 87.7 fL (80.0-100.0); Macrocytosis Slight; Mean Platelet Volume 8.7; Microcytosis Slight; Monocytes # (A) 0.3 k/uL (0-1.0); Monocytes % (A) 5 %; Neutrophils # (A) 4.9 k/uL (1.3-7.7); Neutrophils % (A) 78 %; Platelet Count 187 k/uL (150-450); Poikilocytosis Slight; RBC 3.41 m/uL (4.30-5.90); RDW 23.2 % (11.5-15.5); WBC 6.2 k/uL (3.8-10.6)
[2021-03-27 17:40] LABS: Albumin 2.9 g/dL (3.5-5.0); Calcium 8.3 mg/dL (8.4-10.2); INR 1.2 (<1.2); Magnesium 1.5 mg/dL (1.6-2.3); Partial Thromboplastin Time 23.4 sec (22.0-30.0); Potassium 3.9 mmol/L (3.5-5.1); Total Bilirubin 1.1 mg/dL (0.2-1.3); Total Protein 6.5 g/dL (6.3-8.2)
--- NOTE | 2021-03-27 18:11 | XR ---
EXAMINATION TYPE: XR chest 1V portable DATE OF EXAM: 03/27/2021 COMPARISON: NONE HISTORY: Syncope TECHNIQUE: Single view FINDINGS: There is some linear density left lower lobe. There is no heart failure. There is no pulmon sharon consolidation. There are chest leads. There is poor inspiration. IMPRESSION: Mild subsegmental atelectasis left lower lobe appears new compared to old exam. Inspirati on decreased compared to old exam. No heart failure.
--- NOTE | 2021-03-27 19:02 | CT ---
EXAMINATION TYPE: CT abdomen pelvis wo con DATE OF EXAM: 03/27/2021 COMPARISON: None HISTORY: Abdominal pain. CT DLP: 1313 mGycm Automated exposure control for dose reduction was used. Images obtained from the diaphragm to the floor the pelvis without contrast. Lung bases are clear of consolidation. There is no pleural effusion. Heart appears enlarged. Liver is intact. The bile ducts are not dilated. Spleen is enlarged and measures 18 cm. There is no e vidence of pancreatic mass. Stomach is intact. There is gallbladder contracted with multiple calcifie d gallstones. There is no adrenal mass. Kidneys have normal size and contour. There is no hydronephrosis. There is no retroperitoneal adenopathy. Abdominal aorta is atheromatous. Bladder distends smoothly. There is n o inguinal hernia. There are calcifications in the prostate. There is no free fluid in the pelvis. There is no mesenteric edema. There is no ascites or free air. There is no evidence of a bowel obstru ction. Appendix not well seen. There is no sign of thickened appendix. The lumbar vertebra have normal alignment. There is degenerative disc space narrowing in the lumbar s pine with spur formation. There is no compression fracture. Bony pelvis is intact. The hip joints are intact. There is some deformity of the left iliac bone consistent with previous surgery or trauma. IMPRESSION: Cholelithiasis. No dilated ducts. Moderate splenomegaly. No acute abnormality of the abdomen pelvis.
--- NOTE | 2021-03-27 19:03 | CT ---
EXAMINATION TYPE: CT brain wo con DATE OF EXAM: 03/27/2021 COMPARISON: None HISTORY: Altered mental status. CT DLP: 1118.4 mGycm Automated exposure control for dose reduction was used. There is cerebral atrophy. There is no mass effect nor midline shift. There is no sign of intracrania l hemorrhage. Calvarium is intact. There is normal aeration of the mastoid sinuses. IMPRESSION: Cerebral atrophy. No acute intracranial abnormality.
[2021-03-27] MEDS ORDERED: NALOXONE 0.4 MG/ML 1 ML VIAL IV PRN (19:46)
[2021-03-27 20:09] LABS: Appearance,Urine Clear (Clear); Bacteria,Urine Rare /hpf; Bilirubin,Urine Negative (Negative); Blood,Urine Negative (Negative); Color,Urine Colorless; Glucose,Urine (UA) Negative (Negative); Ketones,Urine Negative (Negative); Leukocyte Esterase,Urine Trace (Negative); Nitrite,Urine Negative (Negative); PH, Urine 6.5 (5.0-8.0); Protein,Urine Negative (Negative); Specific Gravity,Urine 1.005 (1.001-1.035); Urobilinogen,Urine <2.0 mg/dL (<2.0); WBC,Urine 2 /hpf (0-5)
[2021-03-28 08:11] LABS: Anisocytosis Moderate; Basophils % (A) 0 %; Eosinophils # (A) 0.3 k/uL (0-0.7); Eosinophils % (A) 6 %; HGB 8.8 gm/dL (13.0-17.5); Hypochromasia Marked; Lymphocytes # (A) 0.7 k/uL (1.0-4.8); Lymphocytes % (A) 14 %; MCHC 30.5 g/dL (31.0-37.0); MCV 88.4 fL (80.0-100.0); Macrocytosis Slight; Mean Platelet Volume 9.2; Microcytosis Slight; Monocytes # (A) 0.3 k/uL (0-1.0); Monocytes % (A) 5 %; Neutrophils # (A) 3.9 k/uL (1.3-7.7); Neutrophils % (A) 73 %; Platelet Count 168 k/uL (150-450); Poikilocytosis Slight; RBC 3.28 m/uL (4.30-5.90); RDW 23.1 % (11.5-15.5); WBC 5.3 k/uL (3.8-10.6)
[2021-03-28 08:33] LABS: Albumin 2.8 g/dL (3.5-5.0); Calcium 8.5 mg/dL (8.4-10.2); Potassium 3.6 mmol/L (3.5-5.1); Total Bilirubin 0.8 mg/dL (0.2-1.3); Total Protein 6.5 g/dL (6.3-8.2)
[2021-03-28] MEDS ORDERED: ALBUTEROL NEBULIZED 2.5 MG/3 ML INHALATION PRN (10:56)
[2021-03-28] MEDS ORDERED: bisacodyL 10 MG SUPP RECTAL PRN (10:56)
[2021-03-28] MEDS ORDERED: NA PHOS,M-B/NA PHOS,DI-BA 133 ML ENEMA RECTAL PRN (10:56)
[2021-03-28] MEDS ORDERED: MAGNESIUM HYDROXIDE 2,400 MG/10 ML CUP PO PRN (10:56)
[2021-03-28] MEDS ORDERED: WARFARIN 5 MG TAB PO STA (12:37)
[2021-03-28] MEDS ORDERED: FUROSEMIDE 40 MG TAB PO SCH (14:00)
[2021-03-28] MEDS: SODIUM CHLORIDE 0.9% 1,000 ML IV SCH ×2 (14:01→20:43)
[2021-03-28] MEDS: CEPHALEXIN 500 MG CAP PO SCH ×2 (14:02→17:46)
[2021-03-28] MEDS: SIMETHICONE 40 MG/0.6 ML DROPS 2,000 MG/30 ML BOTTLE PO SCH ×3 (14:02→20:44)
--- NOTE | 2021-03-28 14:40 | P.HPIM ---
History of Present Illness Patient is a pleasant 70-year-old male came in after a syncopal episode which lasted about 1-2 minutes patient did denied any seizure-like activity doesn't have any loss of bowel or bladder continence. Patient was recently discharged from the hospital after he was treated for cellulitis and presently on Keflex was also treated for congestive failure chronic systolic dysfunction with acute exacerbation patient had he of around the 40-45% patient does have history of moderate pulmonary hypertension as well. And some valvular abnormalities. Patient baseline creatinine is around the 1.1 presently 1.7 patient is bit hypovolemic probably patient does have elevated BNP during this hospitalization of around 3400. Patient had an EKG which showed chronic A. fib patient does have history of atrial fibrillation. CT of the head did not show any significant abnormality. Patient does have mildly elevated troponins of 0.06 probably this is secondary to chronic chronic kidney disease patient denied any chest pain at this time. Patient presently denied any lightheadedness. Abdominal CT showed cholelithiasis. REVIEW OF SYSTEMS: CONSTITUTIONAL: No fever, no malaise, no fatigue. HEENT: No recent visual problems or hearing problems. Denied any sore throat. CARDIOVASCULAR: No chest pain, orthopnea, PND, no palpitations. PULMONARY: No shortness of breath, no cough, no hemoptysis. GASTROINTESTINAL: No diarrhea, no nausea, no vomiting, no abdominal pain. NEUROLOGICAL: No headaches, no weakness, no numbness. HEMATOLOGICAL: Denies any bleeding or petechiae. GENITOURINARY: Denies any burning micturition, frequency, or urgency. MUSCULOSKELETAL/RHEUMATOLOGICAL: Denies any joint pain, swelling, or any muscle pain. ENDOCRINE: Denies any polyuria or polydipsia. The rest of the 14-point review of systems is negative. PHYSICAL EXAMINATION: GENERAL: The patient is alert and oriented x3, not in any acute distress. Well developed, well nourished. HEENT: Pupils are round and equally reacting to light. EOMI. No scleral icterus. No conjunctival pallor. Normocephalic, atraumatic. No pharyngeal erythema. No thyromegaly. CARDIOVASCULAR: S1 and S2 present. No murmurs, rubs, or gallops. PULMONARY: Chest is clear to auscultation, no wheezing or crackles. ABDOMEN: Soft, nontender, nondistended, normoactive bowel sounds. No palpable organomegaly. MUSCULOSKELETAL: No joint swelling or deformity. EXTREMITIES: No cyanosis, clubbing, or pedal edema. NEUROLOGICAL: Gross neurological examination did not reveal any new focal and generalized weakness deficits. SKIN: No rashes. Assessment and plan -Syncope: Probably secondary to hypovolemia patient's diuretics will be held temporally patient will be started on IV fluids CONTINUE with DEBORA inhibitor for now but if patient's creatinine doesn't improve DEBORA inhibitor need to be held at that time as well. Cardiology will evaluate the patient -mild elevated troponins secondary to chronic kidney disease no evidence of acute myocardial infarction at this time. Renal failure on chronic kidney disease stage II: Secondary to probably excessive diuresis which will be held at this time -Chronic anemia further evaluation as an outpatient probably anemia of chronic kidney disease extent-can start failure chronic systolic as well as diastolic dysfunction without any acute exacerbation. Patient is bit hypovolemic -Moderate pulmonary hypertension -Chronic A. fib continue with rate control medications, patient is on Coumadin which will be continued INR is 1.5 Will repeat basic metabolic profile and INR tomorrow -Sleep apnea -COPD without any acute exacerbation -Hypertension -Benign prostatic hypertrophy -Sleep apnea She does have multiple problems his overall prognosis is poor DVT prophylaxis: On Coumadin Past Medical History Past Medical History: Atrial Fibrillation, Heart Failure, COPD, Hypertension, Osteoarthritis (OA), Pneumonia, Prostate Disorder, Renal Disease, Sleep Apnea/CPAP/BIPAP, Vascular Disorder Additional Past Medical History / Comment(s): Nonischemic cardiomyopathy, cardiac valve disease, bronchitis, JIMMIE with Cpap and O2 at 2L at hs, past decreased renal function, arthritis bilateral hands/knees, gout bilateral feet, numbness bilateral legs/feet, carpal tunnel syndrome bilaterally, bilateral hand tremors, nonhealing bilateral lower leg wounds/cellulitis, varicosities, lower leg/pedal edema, PVD, BPH. History of Any Multi-Drug Resistant Organisms: MRSA Date of last positivie culture/infection: 08/30/12 MDRO Source:: LEG(not sure which) Past Surgical History: Heart Catheterization Additional Past Surgical History / Comment(s): Split thickness skin graft to L leg, bronchoscopy, cyst and partial jaw removed/has screws, oral surgery age 8- too many teeth. Past Anesthesia/Blood Transfusion Reactions: Previous Problems w/ Anesthesia Additional Past Anesthesia/Blood Transfusion Reaction / Comment(s): STATED DURING BRONCH STOPPED BREATHING, (brochoscopy done at [facility]-record on chart) Past Psychological History: Anxiety Smoking Status: Never smoker Past Alcohol Use History: None Reported Past Drug Use History: None Reported - Past Family History Father Family Medical History: Dementia, Eye Disorder Additional Family Medical History / Comment(s): MACULAR DEGENERATION Mother Family Medical History: Diabetes Mellitus, Eye Disorder, Vascular Disorder Additional Family Medical History / Comment(s): ANEURYSMS, CATARACTS. Medications and Allergies Home Medications Medication Instructions Recorded Confirmed Type Isosorbide Mononitrate ER [Imdur] 30 mg PO DAILY@0800 04/11/14 03/27/21 History Tamsulosin HCl [Flomax] 0.8 mg PO DAILY@0800 04/11/14 03/27/21 History allopurinoL [Zyloprim] 300 mg PO HS@209903/03/16 03/27/21 History Carvedilol [Coreg] 25 mg PO BID@0800,1700 04/25/18 03/27/21 History Naproxen 500 mg PO BID@0800,1700 04/25/18 03/27/21 History Potassium Chloride 20 meq PO BID@0800,1700 04/25/18 03/27/21 History lisinopriL [Zestril] 20 mg PO DAILY@0800 04/25/18 03/27/21 History metOLazone [Zaroxolyn] 5 mg PO DAILY@0800 04/25/18 03/27/21 History Digoxin [Lanoxin] 125 mcg PO DAILY@0800 06/09/18 03/27/21 History Magnesium Oxide 400 mg PO HS@209912/29/20 03/27/21 History SILVER sulfADIAZINE CREAM 1 applic TOPICAL DAILY@0800 12/29/20 03/27/21 History [Silvadene Cream] Albuterol Nebulized [Ventolin 2.5 mg INHALATION RT-Q6H PRN 02/27/21 03/27/21 History Nebulized] Warfarin [Coumadin] 3 mg PO SUMOWETHFR 02/27/21 03/27/21 History HYDROcodone/APAP 5-325MG [[place] 1 tab PO Q6HR PRN 3 Days #12 tab 03/17/21 03/27/21 Rx 5-325] Ferrous Sulfate [Iron (65 MG 325 mg PO DAILY@0800 03/20/21 03/27/21 History Elemental)] Furosemide [Lasix] 40 mg PO BID@0600,1400 03/20/21 03/27/21 History Liquacel 30 ml PO BID@0800,1700 03/20/21 03/27/21 History Magnesium Hydroxide [Milk of 2,400 mg PO DAILY PRN 03/20/21 03/27/21 History Magnesia] Na Phos,M-B/Na Phos,Di-Ba [Fleet 133 ml RECTAL DAILY PRN 03/20/21 03/27/21 History Adult] Pantoprazole [Protonix] 40 mg PO BID@0800,1700 03/20/21 03/27/21 History Simethicone 40 mg/0.6 ml Drops 100 mg PO QID@08,12,17,21 03/20/21 03/27/21 History [Mylicon Drops] bisacodyL [Dulcolax] 10 mg RECTAL DAILY PRN 03/20/21 03/27/21 History Cephalexin [Keflex] 500 mg PO Q6HR 10 Days #40 cap 03/26/21 03/27/21 Rx Menthol-Zinc Oxide Oint 1 applic TOPICAL BID 03/27/21 03/27/21 History [Calmoseptine Oint] Warfarin [Coumadin] 2 mg PO TUSA@1800 03/27/21 03/27/21 History Warfarin [Coumadin] 2.5 mg PO TUSA@1800 03/27/21 03/27/21 History Allergies Allergy/AdvReac Type Severity Reaction Status Date / Time No Known Allergies Allergy Verified 03/27/21 17:23 Physical Exam Vitals: Vital Signs Temp Pulse Resp BP Pulse Ox 03/28/21 11:00 97.6 F 74 18 128/68 99 03/28/21 07:30 97.4 F L 71 18 131/65 100 03/28/21 03:02 70 20 125/64 03/27/21 18:08 64 18 95/57 99 03/27/21 17:02 97.7 F 60 18 103/63 98 Intake and Output 03/27/21 03/28/21 03/28/21 22:59 06:59 14:59 Other: Weight 104.78 kg Results CBC & Chem 7: 03/28/21 07:49 10/02/21 07:49 Labs: Abnormal Lab Results - Last 24 Hours (Table) 03/27/21 03/27/21 03/27/21 Range/Units 17:20 17:20 17:20 RBC 3.41 L (4.30-5.90) m/uL Hgb 9.1 L (13.0-17.5) gm/dL Hct 29.9 L (39.0-53.0) % MCHC 30.5 L (31.0-37.0) g/dL RDW 23.2 H (11.5-15.5) % Lymphocytes # 0.7 L (1.0-4.8) k/uL INR 1.2 H (<1.2) Sodium 136 L (137-145) mmol/L Carbon Dioxide (22-30) mmol/L BUN 78 H (9-20) mg/dL Creatinine 1.79 H (0.66-1.25) mg/dL Glucose 190 H (74-99) mg/dL Calcium 8.3 L (8.4-10.2) mg/dL Magnesium 1.5 L (1.6-2.3) mg/dL Alkaline Phosphatase 149 H (38-126) U/L Troponin I (0.000-0.034) ng/mL Albumin 2.9 L (3.5-5.0) g/dL Ur Leukocyte Esterase (Negative) Urine Bacteria (None) /hpf 03/27/21 03/27/21 03/27/21 Range/Units 17:20 19:56 20:46 RBC (4.30-5.90) m/uL Hgb (13.0-17.5) gm/dL Hct (39.0-53.0) % MCHC (31.0-37.0) g/dL RDW (11.5-15.5) % Lymphocytes # (1.0-4.8) k/uL INR (<1.2) Sodium (137-145) mmol/L Carbon Dioxide (22-30) mmol/L BUN (9-20) mg/dL Creatinine (0.66-1.25) mg/dL Glucose (74-99) mg/dL Calcium (8.4-10.2) mg/dL Magnesium (1.6-2.3) mg/dL Alkaline Phosphatase (38-126) U/L Troponin I 0.060 H* 0.064 H* (0.000-0.034) ng/mL Albumin (3.5-5.0) g/dL Ur Leukocyte Esterase Trace H (Negative) Urine Bacteria Rare H (None) /hpf 03/27/21 03/28/21 03/28/21 Range/Units 23:37 07:49 07:49 RBC 3.28 L (4.30-5.90) m/uL Hgb 8.8 L (13.0-17.5) gm/dL Hct 29.0 L (39.0-53.0) % MCHC 30.5 L (31.0-37.0) g/dL RDW 23.1 H (11.5-15.5) % Lymphocytes # 0.7 L (1.0-4.8) k/uL INR (<1.2) Sodium (137-145) mmol/L Carbon Dioxide 32 H (22-30) mmol/L BUN 78 H (9-20) mg/dL Creatinine 1.61 H (0.66-1.25) mg/dL Glucose 120 H (74-99) mg/dL Calcium (8.4-10.2) mg/dL Magnesium (1.6-2.3) mg/dL Alkaline Phosphatase 138 H (38-126) U/L Troponin I 0.061 H* (0.000-0.034) ng/mL Albumin 2.8 L (3.5-5.0) g/dL Ur Leukocyte Esterase (Negative) Urine Bacteria (None) /hpf
[2021-03-28] MEDS: HYDROcodone/APAP 5-325MG 1 EACH TAB PO PRN (15:51)
[2021-03-28] MEDS ORDERED: NAPROXEN 250 MG TAB PO SCH (17:00)
[2021-03-28] MEDS ORDERED: NON FORMULARY DRUG (Liquacel 30 ML) PO SCH (17:00)
[2021-03-28] MEDS ORDERED: PANTOPRAZOLE 40 MG TABLET PO SCH (17:00)
[2021-03-28] MEDS: POTASSIUM CHLORIDE ER 20 MEQ TAB.ER PO SCH (17:47)
[2021-03-28] MEDS: carvediloL 12.5 MG TAB PO SCH (17:47)
--- NOTE | 2021-03-28 18:42 | CONS ---
CONSULTATION HISTORY OF PRESENT ILLNESS: Mr. Barraza is a 70-year-old gentleman, a patient of Dr. Pendleton with chronic atrial fib, COPD, hypertension, systolic heart failure, nonischemic cardiomyopathy who was recently discharged from the hospital. He was sent to [facility] but came right back because he had an episode of what seems to be a near syncopal spell. The patient is clinically dehydrated. His ejection fraction based on an echo from December is in the range of 45-50 percent. He also had a repeat echocardiogram performed on March 23 which revealed actually a decent ejection fraction of about 55%. Patient is here mainly because of what seems to be a near syncopal spell. It appears that he is clinically very dehydrated and he has some prerenal azotemia. He is lying down and responds to questions but indicates to me that he is exhausted. Apparently there was an episode of unresponsiveness, although this is not verified. He is resting comfortably. Blood pressure is good. He appears clinically dehydrated. No chest pain or shortness of breath. PAST MEDICAL HISTORY: 1. Chronic atrial fib, on anticoagulation. 2. Hypertension, hyperlipidemia, nonischemic cardiomyopathy with history of some heart failure, but last echo revealed good systolic function. 3. He also has episodes of some chronic kidney disease. 4. He has bilateral lower extremity varicosities and some cellulitis in both lower extremities. Both extremities are wrapped. Please refer to the recent notes from the chart, patient was recently discharged. PHYSICAL EXAMINATION: On examination, blood pressure is 128/70, pulse rate is 70 per minute, irregular. HEENT unremarkable. Fundus was not examined by me. NECK is supple. No JVD. I do not hear a carotid bruit. HEART exam reveals S1, S2 with a short systolic murmur. LUNGS reveal diminished air entry. ABDOMEN is soft, nontender. Lower EXTREMITIES reveal bilateral varicosities. Left leg is wrapped. There is a possibly some cellulitis as well. IMPRESSION: 1. No evidence to suggest syncope. 2. Dehydration. 3. Chronic atrial fibrillation. 4. Prerenal azotemia. 5. History of hypertension. 6. History of nonischemic cardiomyopathy, but the ejection fraction is well preserved. RECOMMENDATIONS: I am recommending that we hydrate him cautiously, resume most of his home medications and anticoagulation as well. Patient's PT/INR is subtherapeutic at 1.2. His troponin is up to 0.06 and all 3 values are about the same. This is not suggestive of myocardial injury. I would recommend cellulitis be further evaluated as well for possible antibiotics. Prognosis remains guarded. Thank you very much for the consult. FRANSISCO / DUONG: [id number] /
[2021-03-28] MEDS ORDERED: Magnesium Replacement Protocol 1 EACH MISC MISCELLANE PRN (19:51)
[2021-03-28] MEDS: MENTHOL-ZINC OXIDE OINT 113 GM TUBE TOPICAL SCH (20:42)
[2021-03-28] MEDS: MAGNESIUM OXIDE 400 MG TAB PO SCH (20:42)
[2021-03-28] MEDS: allopurinoL 300 MG TAB PO SCH (20:42)
[2021-03-28] MEDS: MAGNESIUM SULFATE-D5W PMX 1 GM in DEXTROSE/WATER 1 100ML.BAG IVPB SCH ×2 (20:42→21:39)
[2021-03-29] MEDS ORDERED: HEPARIN SODIUM 1,000 UN/ML (10ML VL) IV ONE (06:54)
[2021-03-29] MEDS ORDERED: HEPARIN SODIUM 1,000 UN/ML (10ML VL) IV PRN (06:54)
[2021-03-29 07:47] LABS: Anisocytosis Moderate; Basophils % (A) 1 %; Eosinophils # (A) 0.3 k/uL (0-0.7); Eosinophils % (A) 9 %; HCT 29.7 % (39.0-53.0); HGB 9.2 gm/dL (13.0-17.5); Hypochromasia Marked; Lymphocytes # (A) 0.4 k/uL (1.0-4.8); Lymphocytes % (A) 11 %; MCH 27.5 pg (25.0-35.0); MCHC 30.9 g/dL (31.0-37.0); MCV 89.1 fL (80.0-100.0); Macrocytosis Slight; Mean Platelet Volume 7.9; Monocytes # (A) 0.2 k/uL (0-1.0); Monocytes % (A) 5 %; Neutrophils # (A) 2.9 k/uL (1.3-7.7); Neutrophils % (A) 74 %; Platelet Count 172 k/uL (150-450); Poikilocytosis Slight; RBC 3.34 m/uL (4.30-5.90); RDW 22.9 % (11.5-15.5); WBC 3.9 k/uL (3.8-10.6)
[2021-03-29] MEDS ORDERED: DIGOXIN 125 MCG TAB PO SCH (08:00)
[2021-03-29 08:09] LABS: Calcium 8.3 mg/dL (8.4-10.2); Potassium 3.6 mmol/L (3.5-5.1)
[2021-03-29 08:20] LABS: INR 1.1 (<1.2)
[2021-03-29 08:21] LABS: Partial Thromboplastin Time 25.6 sec (22.0-30.0); Prothrombin Time 11.7 sec (9.0-12.0)
[2021-03-29] MEDS ORDERED: FUROSEMIDE 40 MG TAB PO SCH (09:00)
[2021-03-29] MEDS: TAMSULOSIN 0.4 MG CAP.ER.24H PO SCH (09:19)
[2021-03-29] MEDS: FERROUS SULFATE 325 MG TAB PO SCH (09:20)
[2021-03-29] MEDS: carvediloL 12.5 MG TAB PO SCH ×2 (09:20→17:46)
[2021-03-29] MEDS: ISOSORBIDE MONONITRATE ER 30 MG TAB.ER.24H PO SCH (09:21)
[2021-03-29] MEDS: POTASSIUM CHLORIDE ER 20 MEQ TAB.ER PO SCH ×2 (09:21→17:46)
[2021-03-29] MEDS: CEPHALEXIN 500 MG CAP PO SCH ×2 (09:21→21:38)
[2021-03-29] MEDS: lisinopriL 20 MG TAB PO SCH (09:21)
[2021-03-29] MEDS: HEPARIN SOD,PORK IN 0.45% NACL 25,000 UNIT in 0.45% NACL 1 250ML.BAG IV SCH (09:22)
[2021-03-29] MEDS: SODIUM CHLORIDE 0.9% 1,000 ML IV SCH (09:22)
[2021-03-29] MEDS: SIMETHICONE 40 MG/0.6 ML DROPS 2,000 MG/30 ML BOTTLE PO SCH ×4 (09:27→21:40)
[2021-03-29] MEDS: SILVER sulfADIAZINE Cream 400 GM 1 APPLIC APPLIC TOPICAL SCH (09:34)
[2021-03-29] MEDS: MENTHOL-ZINC OXIDE OINT 113 GM TUBE TOPICAL SCH ×2 (09:34→21:38)
--- NOTE | 2021-03-29 12:19 | PN ---
PROGRESS NOTE Mr. Barraza is a gentleman with a chronic atrial fibrillation who sees Dr. Pendleton. Yesterday he was sent back from [facility] because of syncope but in reality it was dehydrated volume depletion. With hydration he feels better. The PT/INR is not therapeutic yet. I will resume Coumadin and give him heparin IV until INR is therapeutic. He is feeling much better. We will continue current medications, increase oral hydration, increase activity. Vitals are stable. No JVD. S1-S2 heard normally. Irregular rhythm noted. Short systolic murmur noted. Lungs reveal improved air entry. Abdomen is soft. Lower extremities reveal bilateral cellulitis for which the admitting doctor is addressing with oral Keflex. Cardiac-dow, the rate control is good with atrial fib. Anticoagulation suboptimal. We will place him on heparin drip and increase Coumadin and once therapeutic, he can be discharged. MMODL / HAYDEEN: [id number] /
--- NOTE | 2021-03-29 13:20 | P.PN ---
Subjective Progress Note Date: 03/29/21 Patient is a pleasant 70-year-old male came in after a syncopal episode which lasted about 1-2 minutes patient did denied any seizure-like activity doesn't have any loss of bowel or bladder continence. Patient was recently discharged from the hospital after he was treated for cellulitis and presently on Keflex was also treated for congestive failure chronic systolic dysfunction with acute exacerbation patient had he of around the 40-45% patient does have history of moderate pulmonary hypertension as well. And some valvular abnormalities. Patient baseline creatinine is around the 1.1 presently 1.7 patient is bit hypovolemic probably patient does have elevated BNP during this hospitalization of around 3400. Patient had an EKG which showed chronic A. fib patient does have history of atrial fibrillation. CT of the head did not show any significant abnormality. Patient does have mildly elevated troponins of 0.06 probably this is secondary to chronic chronic kidney disease patient denied any chest pain at this time. Patient presently denied any lightheadedness. Abdominal CT showed cholelithiasis. 03/29/2021 Patient is evaluated today resting in the bed. States that he has not gotten up out of bed since being at rehab. He states that his possible syncopal episode happened while he was lying. Today he denies any chest pain, cough, short of breath. He is seen today for chronic wounds to his bilateral lower extremities with PO Kefzol as well as Aquacel for local wound care. Labs reviewed today include a hemoglobin of 9.2. BUN is 57, creatinine is improved at 1.08. Troponins are stable, 0.060, 0.064 and 0.061. This is more indicative of a chronic disease and not as much an acute coronary syndrome. Vital signs include temperature 90.8, heart rate 89, blood pressure 122/75 and he is 100% on 2 L nasal cannula. We can wean this as tolerated. Lasix and dig are on hold, we will check a dig level. ROS Constitutional: Denied any fatigue denied any fever. Cardio vascular: denied any chest pain, palpitations Gastrointestinal denied any nausea vomiting Pulmonary: Denied any shortness of breath cough Neurologic denied any new focal deficits All inpatient medications were reviewed and appropriate changes in these medications as dictated in the interval history and assessment and plan. PHYSICAL EXAMINATION: GENERAL: The patient is alert and oriented x3, not in any acute distress. Well developed, well nourished. HEENT: Pupils are round and equally reacting to light. EOMI. No scleral icterus. No conjunctival pallor. Normocephalic, atraumatic. No pharyngeal erythema. No thyromegaly. CARDIOVASCULAR: S1 and S2 present. No murmurs, rubs, or gallops. PULMONARY: Chest is clear to auscultation, no wheezing or crackles. ABDOMEN: Soft, nontender, nondistended, normoactive bowel sounds. No palpable organomegaly. MUSCULOSKELETAL: No joint swelling or deformity. EXTREMITIES: No cyanosis, clubbing, or pedal edema. NEUROLOGICAL: Gross neurological examination did not reveal any new focal and generalized weakness deficits. SKIN: No rashes. Assessment and plan -Syncope: Probably secondary to hypovolemia patient's diuretics will be held temporally patient will be started on IV fluids CONTINUE with DEBORA inhibitor for now but if patient's creatinine doesn't improve DEBORA inhibitor need to be held at that time as well. Cardiology will evaluate the patient -mild elevated troponins secondary to chronic kidney disease no evidence of acute myocardial infarction at this time. -Acute Renal failure on chronic kidney disease stage II: Secondary to probably excessive diuresis which will be held at this time, creatinine has normalized -Chronic anemia further evaluation as an outpatient probably anemia of chronic kidney disease -Congestive heart failure chronic systolic as well as diastolic dysfunction without any acute exacerbation. Patient is bit hypovolemic -Moderate pulmonary hypertension -Chronic A. fib continue with rate control medications, patient is on Coumadin, INR is 1.1, we will bridge with heparin drip -Sleep apnea -COPD without any acute exacerbation -Hypertension -Benign prostatic hypertrophy -Sleep apnea He does have multiple problems his overall prognosis is poor DVT prophylaxis: On Coumadin Plan From a cardiology perspective we will bridge with a heparin drip currently INR today is 1.1 we will recheck tomorrow. Coumadin dosing per pharmacy. PT OT consultation, plan is to return to rehab once medically stable. Possibly tomorrow. Objective - Vital Signs Vital signs: Vital Signs Temp 98.0 F 03/29/21 08:00 Pulse 89 03/29/21 08:00 Resp 18 03/29/21 08:00 BP 122/75 03/29/21 08:00 Pulse Ox 100 03/29/21 08:00 Intake & Output 03/28/21 03/29/21 03/29/21 18:59 06:59 18:59 Intake Total 580 Output Total 150 Balance 430 Weight 102 kg Intake: Intake, IV Titration 100 Amount Sodium Chloride 0.9% 1, 100 000 ml @ 100 mls/hr IV . Q10H [facility] Rx#:[id number] Oral 480 Output: Urine 150 Other: Voiding Method Urinal Bedpan Incontinent Urinal # Voids 1 - Labs CBC & Chem 7: 03/29/21 07:16 03/29/21 06:50 Labs: Abnormal Lab Results - Last 24 Hours (Table) 03/29/21 03/29/21 Range/Units 06:50 07:16 RBC 3.34 L (4.30-5.90) m/uL Hgb 9.2 L (13.0-17.5) gm/dL Hct 29.7 L (39.0-53.0) % MCHC 30.9 L (31.0-37.0) g/dL RDW 22.9 H (11.5-15.5) % Lymphocytes # 0.4 L (1.0-4.8) k/uL BUN 57 H (9-20) mg/dL Glucose 118 H (74-99) mg/dL Calcium 8.3 L (8.4-10.2) mg/dL Assessment and Plan Time with Patient: Greater than 30
[2021-03-29] MEDS ORDERED: POTASSIUM CHLORIDE ER 20 MEQ TAB.ER PO SCH (14:00)
[2021-03-29] MEDS: WARFARIN 5 MG TAB PO SCH (17:46)
[2021-03-29 20:41] LABS: Glucose,Whole Blood 197 mg/dL (75-99)
[2021-03-29] MEDS: allopurinoL 300 MG TAB PO SCH (21:38)
[2021-03-29] MEDS: HYDROcodone/APAP 5-325MG 1 EACH TAB PO PRN (21:38)
[2021-03-29] MEDS: MAGNESIUM OXIDE 400 MG TAB PO SCH (21:38)
[2021-03-30] MEDS: HEPARIN SOD,PORK IN 0.45% NACL 25,000 UNIT in 0.45% NACL 1 250ML.BAG IV SCH ×2 (02:41→20:29)
[2021-03-30 05:54] LABS: Anisocytosis Moderate; Basophils % (A) 1 %; Eosinophils # (A) 0.4 k/uL (0-0.7); Eosinophils % (A) 14 %; HCT 26.8 % (39.0-53.0); HGB 8.2 gm/dL (13.0-17.5); Hypochromasia Marked; Lymphocytes # (A) 0.7 k/uL (1.0-4.8); Lymphocytes % (A) 24 %; MCH 27.2 pg (25.0-35.0); MCHC 30.6 g/dL (31.0-37.0); MCV 88.9 fL (80.0-100.0); Macrocytosis Slight; Mean Platelet Volume 8.6; Monocytes # (A) 0.2 k/uL (0-1.0); Monocytes % (A) 8 %; Neutrophils # (A) 1.4 k/uL (1.3-7.7); Neutrophils % (A) 50 %; Platelet Count 168 k/uL (150-450); Poikilocytosis Slight; RBC 3.01 m/uL (4.30-5.90); RDW 23.1 % (11.5-15.5); WBC 2.7 k/uL (3.8-10.6)
[2021-03-30 06:04] LABS: INR 1.2 (<1.2); Partial Thromboplastin Time 58.8 sec (22.0-30.0); Prothrombin Time 12.3 sec (9.0-12.0)
[2021-03-30 06:33] LABS: Potassium 4.1 mmol/L (3.5-5.1)
[2021-03-30] MEDS: POTASSIUM CHLORIDE ER 20 MEQ TAB.ER PO SCH ×2 (08:33→17:23)
[2021-03-30] MEDS: CEPHALEXIN 500 MG CAP PO SCH ×2 (08:33→20:28)
[2021-03-30] MEDS: carvediloL 12.5 MG TAB PO SCH ×2 (08:33→17:23)
[2021-03-30] MEDS: lisinopriL 20 MG TAB PO SCH (08:33)
[2021-03-30] MEDS: FERROUS SULFATE 325 MG TAB PO SCH (08:33)
[2021-03-30] MEDS: ISOSORBIDE MONONITRATE ER 30 MG TAB.ER.24H PO SCH (08:33)
[2021-03-30] MEDS: SILVER sulfADIAZINE Cream 400 GM 1 APPLIC APPLIC TOPICAL SCH (08:34)
[2021-03-30] MEDS: MENTHOL-ZINC OXIDE OINT 113 GM TUBE TOPICAL SCH ×2 (08:34→20:29)
[2021-03-30] MEDS: TAMSULOSIN 0.4 MG CAP.ER.24H PO SCH (08:34)
--- NOTE | 2021-03-30 09:45 | P.CONS ---
History of Present Illness - Reason for Consult Consult date: 03/30/21 wound care - History of Present Illness This is a 70-year-old patient known to the wound care center who follows with Dr. Carney. His next appointment will be next Tuesday. Original cause of wound was Gradually Appeared. The wound is currently classified as a Full Thickness Without Exposed Support Structures wound with e tiologies of Venous Leg Ulcer and Trauma, Other and is located on the Left,Anterior Lower Leg. The wound measures 15cm length x 18cm width x 0.1cm depth; 212.058cm^2 area and 21.206cm^3 volume. The wound is limited to skin breakdown. There is no tunneling or undermining noted. There is a large amount of serosanguineous drainage noted. The wound margin is distinct with the outline attached to the wound base. There is large (67-100%) red granulation within the wound bed. There is no necrotic tissue within the wound bed. The periwound skin appearance exhibited: Scarring, Maceration, Hemosiderin Staining. The periwound skin appearance did not exhibit: Callus, Crepitus, Excoriation, Induration, R toro, Dry/Scaly, Atrophie Farrah, Cyanosis, Ecchymosis, Mottled, Pallor, Rubor, Erythema. Periwound temperature was noted as No Abnormality. The periwound has tenderness on palpation. Original cause of wound was Not Known. The wound is currently classified as a Full Thickness Without Exposed Support Structures wound with etiology of Venous Leg Ulcer and is located on the Right,Posterior Lower Leg. The wound measures 14.6cm length x 4.5cm width x 0.1cm depth; 51.601cm^2 area and 5.16cm^3 volume. The wound is limited to skin breakdown. There is no tunneling or undermining noted. There is a large amount of serosanguineous drainage noted. The wound margin is flat and intact. There is large (67-100%) red granulation within the wound bed. There is a small (1-33%) amount of necrotic tissue within the wound bed including Adherent Slough. The periwound skin appearance exhibited: Scarring, Dry/Scaly, Maceration, Hemosiderin Staining. The periwound skin appearance did not exhibit: Callus, Crepitus, Excoriation, Induration, Rash, Atrophie Farrah, Cyanosis, Ecchymosis, Mottled, Pallor, Rubor, Erythema. Periwound temperature was noted as No Abnormality. The periwound has tenderness on palpation. Original cause of wound was Gradually Appeared. The wound is currently classified as a Full Thickness Without Exposed Support Structures wound with etiology of Venous Leg Ulcer and is located on the Right,Anterior Lower Leg. The wound measures 0cm length x 0cm width x 0cm depth; 0cm^2 area and 0cm^3 volume. The wound is limited to skin breakdown. There is no tunneling or undermining noted. There is a none present amount of drainage noted. The wound margin is distinct with the outline attached to the wound base. There is no granulation within the wound bed. There is no necrotic tissue within the wound bed. The periwound skin appearance exhibited: Dry/Scaly, Hemosiderin Staining. Periwound temperature was noted as No Abnormality. Review Of Systems: Constitutional: No fever, no chills, no night sweats. No weight change. No weakness, fatigue or lethargy. No daytime sleepiness. Integumentary:reports wounds, no lesions. No rash or pruritus. No unusual bruising. No change in hair or nails. Physical exam: General Appearance: Alert, cooperative, no distress, appears stated age. Skin: See HPI all other Skin color, texture, tugor normal, no rashes or lesions. Neurologic: Alert oriented x3 Assessment: 1. Chronic venous hypertension with ulcer of bilateral lower extremities 2. Lymphedema Plan: 1. Left anterior lower leg and right posterior lower leg: Apply absorptive silver, saline moistened gauze, dry gauze, ABDs, wrap with Kerlix, wrap with Kahlil wrap. 2. Next Appointment is April [address] Carney. Continue to utilize lymphedema pumps twice a day at home. Elevate legs for 30 minutes. Avoid standing for long periods. Thank you for the consultation any questions please contact the wound care center DNP note has been reviewed and discussed with Dr. Cadet and the impression and plan of care has been directed as dictated. Past Medical History Past Medical History: Atrial Fibrillation, Heart Failure, COPD, Hypertension, Osteoarthritis (OA), Pneumonia, Prostate Disorder, Renal Disease, Sleep Apnea/CPAP/BIPAP, Vascular Disorder Additional Past Medical History / Comment(s): Nonischemic cardiomyopathy, cardiac valve disease, bronchitis, JIMMIE with Cpap and O2 at 2L at hs, past decreased renal function, arthritis bilateral hands/knees, gout bilateral feet, numbness bilateral legs/feet, carpal tunnel syndrome bilaterally, bilateral hand tremors, nonhealing bilateral lower leg wounds/cellulitis, varicosities, lower leg/pedal edema, PVD, BPH. History of Any Multi-Drug Resistant Organisms: MRSA Year Discovered:: 08/30/12 MDRO Source:: LEG(not sure which) Past Surgical History: Heart Catheterization Additional Past Surgical History / Comment(s): Split thickness skin graft to L leg, bronchoscopy, cyst and partial jaw removed/has screws, oral surgery age 8- too many teeth. Past Anesthesia/Blood Transfusion Reactions: Previous Problems w/ Anesthesia Additional Past Anesthesia/Blood Transfusion Reaction / Comm: STATED DURING BRONCH STOPPED BREATHING, (brochoscopy done at [facility]-record on chart) Past Psychological History: Anxiety Smoking Status: Never smoker Past Alcohol Use History: None Reported Past Drug Use History: None Reported - Past Family History Father Family Medical History: Dementia, Eye Disorder Additional Family Medical History / Comment(s): MACULAR DEGENERATION Mother Family Medical History: Diabetes Mellitus, Eye Disorder, Vascular Disorder Additional Family Medical History / Comment(s): ANEURYSMS, CATARACTS. Medications and Allergies Home Medications Medication Instructions Recorded Confirmed Type Isosorbide Mononitrate ER [Imdur] 30 mg PO DAILY@0800 04/11/14 03/27/21 History Tamsulosin HCl [Flomax] 0.8 mg PO DAILY@0800 04/11/14 03/27/21 History allopurinoL [Zyloprim] 300 mg PO HS@2100 03/03/16 03/27/21 History Carvedilol [Coreg] 25 mg PO BID@0800,1700 04/25/18 03/27/21 History Naproxen 500 mg PO BID@0800,1700 04/25/18 03/27/21 History Potassium Chloride 20 meq PO BID@0800,1700 04/25/18 03/27/21 History lisinopriL [Zestril] 20 mg PO DAILY@0800 04/25/18 03/27/21 History metOLazone [Zaroxolyn] 5 mg PO DAILY@0800 04/25/18 03/27/21 History Digoxin [Lanoxin] 125 mcg PO DAILY@0800 06/09/18 03/27/21 History Magnesium Oxide 400 mg PO HS@2100 12/29/20 03/27/21 History SILVER sulfADIAZINE CREAM 1 applic TOPICAL DAILY@0800 12/29/20 03/27/21 History [Silvadene Cream] Albuterol Nebulized [Ventolin 2.5 mg INHALATION RT-Q6H PRN 02/27/21 03/27/21 History Nebulized] Warfarin [Coumadin] 3 mg PO SUMOWETHFR 02/27/21 03/27/21 History HYDROcodone/APAP 5-325MG [[place] 1 tab PO Q6HR PRN 3 Days #12 tab 03/17/21 03/27/21 Rx 5-325] Ferrous Sulfate [Iron (65 MG 325 mg PO DAILY@0800 03/20/21 03/27/21 History Elemental)] Furosemide [Lasix] 40 mg PO BID@0600,1400 03/20/21 03/27/21 History Liquacel 30 ml PO BID@0800,1700 03/20/21 03/27/21 History Magnesium Hydroxide [Milk of 2,400 mg PO DAILY PRN 03/20/21 03/27/21 History Magnesia] Na Phos,M-B/Na Phos,Di-Ba [Fleet 133 ml RECTAL DAILY PRN 03/20/21 03/27/21 History Adult] Pantoprazole [Protonix] 40 mg PO BID@0800,1700 03/20/21 03/27/21 History Simethicone 40 mg/0.6 ml Drops 100 mg PO QID@08,12,17,21 03/20/21 03/27/21 History [Mylicon Drops] bisacodyL [Dulcolax] 10 mg RECTAL DAILY PRN 03/20/21 03/27/21 History Cephalexin [Keflex] 500 mg PO Q6HR 10 Days #40 cap 03/26/21 03/27/21 Rx Menthol-Zinc Oxide Oint 1 applic TOPICAL BID 03/27/21 03/27/21 History [Calmoseptine Oint] Warfarin [Coumadin] 2 mg PO TUSA@1800 03/27/21 03/27/21 History Warfarin [Coumadin] 2.5 mg PO TUSA@1800 03/27/21 03/27/21 History Allergies Allergy/AdvReac Type Severity Reaction Status Date / Time No Known Allergies Allergy Verified 03/27/21 17:23 Physical Exam Vitals: Vital Signs Temp Pulse Resp BP Pulse Ox 03/30/21 08:30 98.6 F 87 20 142/79 100 03/30/21 04:00 98.0 F 80 18 136/81 100 03/30/21 02:00 62 18 03/30/21 00:00 62 18 129/68 100 03/29/21 20:00 97.7 F 75 18 113/67 100 03/29/21 16:00 105 H 18 110/67 98 03/29/21 14:00 104 H 03/29/21 12:00 104 H 18 83/54 98 Intake and Output 03/29/21 03/30/21 03/30/21 22:59 06:59 14:59 Intake Total 491.009 70.615 360 Balance 491.009 70.615 360 Intake: Intake, IV Titration 131.009 70.615 Amount Heparin Sod,Pork in 0.45% 131.009 70.615 NaCl 25,000 unit In 0.45 % NaCl 1 250ml.bag @ 9. 804 UNITS/KG/HR 10 mls/hr IV .Q24H [facility] Rx#: [id number] Oral 360 360 Other: Voiding Method Bedpan Urinal # Voids 1 1 Weight 104.5 kg Results CBC & Chem 7: 03/30/21 04:33 03/30/21 04:33 Labs: Abnormal Lab Results - Last 24 Hours (Table) 03/29/21 03/29/21 03/29/21 Range/Units 13:14 20:18 20:38 WBC (3.8-10.6) k/uL RBC (4.30-5.90) m/uL Hgb (13.0-17.5) gm/dL Hct (39.0-53.0) % MCHC (31.0-37.0) g/dL RDW (11.5-15.5) % Lymphocytes # (1.0-4.8) k/uL PT (9.0-12.0) sec INR (<1.2) APTT 38.9 H 36.8 H (22.0-30.0) sec BUN (9-20) mg/dL Glucose (74-99) mg/dL POC Glucose (mg/dL) 197 H (75-99) mg/dL Calcium (8.4-10.2) mg/dL 03/30/21 03/30/21 03/30/21 Range/Units 04:33 04:33 04:33 WBC 2.7 L (3.8-10.6) k/uL RBC 3.01 L (4.30-5.90) m/uL Hgb 8.2 L (13.0-17.5) gm/dL Hct 26.8 L (39.0-53.0) % MCHC 30.6 L (31.0-37.0) g/dL RDW 23.1 H (11.5-15.5) % Lymphocytes # 0.7 L (1.0-4.8) k/uL PT 12.3 H (9.0-12.0) sec INR 1.2 H (<1.2) APTT 58.8 H (22.0-30.0) sec BUN 49 H (9-20) mg/dL Glucose 108 H (74-99) mg/dL POC Glucose (mg/dL) (75-99) mg/dL Calcium 8.0 L (8.4-10.2) mg/dL Assessment and Plan (1) Chronic venous hypertension (idiopathic) with ulcer and inflammation of bilateral lower extremity Current Visit: No Status: Acute Code(s): I87.333 - CHRONIC VENOUS HTN W ULC ER AND INFLAM OF BILATERAL LOW EXTRM; L97.919 - NON-PRS CHRONIC ULC UNSP PRT OF R LOW LEG W UNSP SEVERITY; L97.929 - NON-PRS CHRONIC ULC UNSP PRT OF L LOW LEG W UNSP SEVERITY SNOMED Code(s): 171274380828819 (2) Nonhealing ulcer of multiple sites of left lower extremity with fat layer exposed Current Visit: No Status: Acute Code(s): L97.922 - NON-PRS CHR ULC UNSP PRT OF L LOW LEG W FAT LAYER EXPOSED SNOMED Code(s): 91489931 (3) Nonhealing ulcer of multiple sites of right lower extremity with fat layer exposed Current Visit: No Status: Acute Code(s): L97.912 - NON-PRS CHR ULC UNSP PRT OF R LOW LEG W FAT LAYER EXPOSED SNOMED Code(s): 41100357
[2021-03-30] MEDS: SIMETHICONE 40 MG/0.6 ML DROPS 2,000 MG/30 ML BOTTLE PO SCH ×4 (12:20→20:29)
--- NOTE | 2021-03-30 15:05 | P.PN ---
Subjective This is a 70-year-old male with a past medical history of chronic persistent atrial fibrillation, COPD, hypertension, nonischemic cardiomyopathy, chronic systolic heart failure, hyperlipidemia. He follows in the office with Dr. Pendleton. We have consult for syncope. Patient presented to the hospital from [facility] due to an episode of near syncope. Of note patient's echocardiogram December 2020 revealed EF of 45-50%. Limited echo on 02/20/2021 revealed EF of 5560 percent. Patient syncope has been attributed to the patient being dehydrated. He was also found to have a sub-therapeutic INR. He is on Coumadin for his atrial fibrillation. Patient seen and examined at bedside, no acute distress. He denies any chest pain, shortness of breath, light headedness, dizziness. Blood pressure 142/79, heart 87 Afebrile, maintaining saturations on room air. Lab data reviewed CBC 2.7, hemoglobin 8.2, platelets 168, INR 1.2, sodium 139, potassium 4.1, BUN 49, serum creatinine 1.02, magnesium 2.0. Patient currently maintained on IV heparin drip, chloride 25 mg twice a day, lisinopril 20 mg daily, potassium chloride 20 mEq twice a day, warfarin 5 mg daily. GENERAL: Well-appearing, well-nourished and in no acute distress. NECK: Supple without JVD or thyromegaly. LUNGS: Breath sounds clear to auscultation bilaterally. Respiration equal and unlabored. No wheezes, rales or rhonchi. HEART: Irregular rate and rhythm Systolic murmur, No rubs or gallops. S1 and S2 heard. EXTREMITIES: Normal range of motion, no edema. No clubbing or cyanosis. Pe ripheral pulses intact. ASSESSMENT Syncope most likely related to dehydration, hypovolemia Acute on chronic kidney disease Anemia Chronic atrial fibrillatino on coumadin Subtherapeutic INR COPD Obstructive sleep apnea Hypertension History of nonischemic cardiomyopathy Chronic systolic heart failure Hyperlipidemia PLAN From a cardiology perspective we'll continue bridging IV heparin drip to couma din. Continue to monitor patient's INR daily. Ok to discharge from cardiology perspective once INR is therapeutic We will follow the patient as needed. Please note further questions or concerns. Patient to follow-up in the office with Dr. Pendleton Nurse Practitioner note has been reviewed, I agree with a documented findings and plan of care. Patient was seen and examined. Objective - Vital Signs Vital signs: Vital Signs Temp 98.6 F 03/30/21 08:30 Pulse 87 03/30/21 08:30 Resp 20 03/30/21 08:30 BP 142/79 03/30/21 08:30 Pulse Ox 100 03/30/21 08:30 Intake & Output 03/29/21 03/30/21 03/30/21 18:59 06:59 18:59 Intake Total 1043.667 117.957 540 Balance 1043.667 117.957 540 Weight 104.5 kg Intake: Intake, IV Titration 83.667 117.957 Amount Heparin Sod,Pork in 0.45% 83.667 117.957 NaCl 25,000 unit In 0.45 % NaCl 1 250ml.bag @ 9. 804 UNITS/KG/HR 10 mls/hr IV .Q24H [facility] Rx#: [id number] Oral 960 540 Other: Voiding Method Bedpan Bedpan Urinal Urinal # Voids 2 1 - Labs CBC & Chem 7: 03/30/21 04:33 03/30/21 04:33 Labs: Abnormal Lab Results - Last 24 Hours (Table) 03/29/21 03/29/21 03/30/21 Range/Units 20:18 20:38 04:33 WBC 2.7 L (3.8-10.6) k/uL RBC 3.01 L (4.30-5.90) m/uL Hgb 8.2 L (13.0-17.5) gm/dL Hct 26.8 L (39.0-53.0) % MCHC 30.6 L (31.0-37.0) g/dL RDW 23.1 H (11.5-15.5) % Lymphocytes # 0.7 L (1.0-4.8) k/uL PT (9.0-12.0) sec INR (<1.2) APTT 36.8 H (22.0-30.0) sec BUN (9-20) mg/dL Glucose (74-99) mg/dL POC Glucose (mg/dL) 197 H (75-99) mg/dL Calcium (8.4-10.2) mg/dL 10/04/21 10/04/21 Range/Units 04:33 04:33 WBC (3.8-10.6) k/uL RBC (4.30-5.90) m/uL Hgb (13.0-17.5) gm/dL Hct (39.0-53.0) % MCHC (31.0-37.0) g/dL RDW (11.5-15.5) % Lymphocytes # (1.0-4.8) k/uL PT 12.3 H (9.0-12.0) sec INR 1.2 H (<1.2) APTT 58.8 H (22.0-30.0) sec BUN 49 H (9-20) mg/dL Glucose 108 H (74-99) mg/dL POC Glucose (mg/dL) (75-99) mg/dL Calcium 8.0 L (8.4-10.2) mg/dL
[2021-03-30 15:47] VITALS: BMI 37.1
[2021-03-30] MEDS: WARFARIN 5 MG TAB PO SCH (17:23)
[2021-03-30] MEDS: MAGNESIUM OXIDE 400 MG TAB PO SCH (20:28)
[2021-03-30] MEDS: allopurinoL 300 MG TAB PO SCH (20:28)
--- NOTE | 2021-03-31 00:09 | P.PN ---
Subjective Progress Note Date: 03/31/21 Principal diagnosis: Syncopal episode. The patient is a 70-year-old white male with known history of atrial fibrillation systolic congestive heart failure who was recently discharged again from the hospital but found to have syncopal episode in the shelter. Workup so far has been negative. No previous history of head trauma or seizure disorder. Objective - Vital Signs Vital signs: Vital Signs Temp 98.0 F 03/30/21 20:00 Pulse 75 03/30/21 20:00 Resp 18 03/30/21 20:00 BP 138/71 03/30/21 20:00 Pulse Ox 99 03/30/21 20:00 Intake & Output 03/30/21 03/30/21 03/31/21 06:59 18:59 06:59 Intake Total 694.089 8489 250 Output Total 300 260 Balance 117.957 720 -10 Weight 104.5 kg 104.5 kg Intake: Intake, IV Titration 117.957 250 Amount Heparin Sod,Pork in 0.45% 117.957 250 NaCl 25,000 unit In 0.45 % NaCl 1 250ml.bag @ 9. 804 UNITS/KG/HR 10 mls/hr IV .Q24H [facility] Rx#: [id number] Oral 1020 Output: Urine 300 260 Other: Voiding Method Bedpan Bedpan Urinal Urinal # Voids 1 - Constitutional General appearance: Present: obese - EENT Eyes: Absent: abnormal pupil - Neck Neck: Absent: lymphadenopathy - Respiratory Respiratory: bilateral: diminished - Cardiovascular Rhythm: irregularly irregular Heart sounds: normal: S1, S2 Abnormal Heart Sounds: Absent: S3 Gallop - Gastrointestinal General gastrointestinal: Present: soft. Absent: tenderness - Integumentary Integumentary: Present: normal - Labs CBC & Chem 7: 03/30/21 04:33 03/30/21 04:33 Labs: Abnormal Lab Results - Last 24 Hours (Table) 03/30/21 03/30/21 03/30/21 Range/Units 04:33 04:33 04:33 WBC 2.7 L (3.8-10.6) k/uL RBC 3.01 L (4.30-5.90) m/uL Hgb 8.2 L (13.0-17.5) gm/dL Hct 26.8 L (39.0-53.0) % MCHC 30.6 L (31.0-37.0) g/dL RDW 23.1 H (11.5-15.5) % Lymphocytes # 0.7 L (1.0-4.8) k/uL PT 12.3 H (9.0-12.0) sec INR 1.2 H (<1.2) APTT 58.8 H (22.0-30.0) sec BUN 49 H (9-20) mg/dL Glucose 108 H (74-99) mg/dL Calcium 8.0 L (8.4-10.2) mg/dL Assessment and Plan (1) Syncope Current Visit: Yes Status: Acute Code(s): R55 - SYNCOPE AND COLLAPSE SNOMED Code(s): 054603175 (2) At risk for readmission to hospital Current Visit: No Status: Acute Code(s): Z91.89 - OTH PERSONAL RISK FACTORS, NOT ELSEWHERE CLASSIFIED SNOMED Code(s): 5025057213566 (3) Atrial fibrillation Current Visit: No Status: Acute Code(s): I48.91 - UNSPECIFIED ATRIAL FIBRILLATION SNOMED Code(s): 17068232 (4) Congestive heart failure Current Visit: No Status: Acute Code(s): I50.9 - HEART FAILURE, UNSPECIFIED SNOMED Code(s): 06972925 (5) Left leg cellulitis Current Visit: No Status: Acute Code(s): L03.116 - CELLULITIS OF LEFT LOWER LIMB SNOMED Code(s): 870786146 (6) NICM (nonischemic cardiomyopathy) Current Visit: No Status: Acute Code(s): I42.8 - OTHER CARDIOMYOPATHIES SNOMED Code(s): 69257727 Plan: The patient will be observed for 1 more day. I doubt this is a neurologic issue per se given his history. No postictal episode. We can consult neurology for appropriate workup including EEG if necessary. Check CMP in the a.m.
[2021-03-31] MEDS: FERROUS SULFATE 325 MG TAB PO SCH (08:23)
[2021-03-31] MEDS: lisinopriL 20 MG TAB PO SCH (08:23)
[2021-03-31] MEDS: POTASSIUM CHLORIDE ER 20 MEQ TAB.ER PO SCH ×2 (08:23→17:04)
[2021-03-31] MEDS: ISOSORBIDE MONONITRATE ER 30 MG TAB.ER.24H PO SCH (08:23)
[2021-03-31] MEDS: TAMSULOSIN 0.4 MG CAP.ER.24H PO SCH (08:23)
[2021-03-31] MEDS: carvediloL 12.5 MG TAB PO SCH ×2 (08:23→17:04)
[2021-03-31] MEDS: CEPHALEXIN 500 MG CAP PO SCH (08:23)
[2021-03-31] MEDS: MENTHOL-ZINC OXIDE OINT 113 GM TUBE TOPICAL SCH (08:24)
[2021-03-31] MEDS: SIMETHICONE 40 MG/0.6 ML DROPS 2,000 MG/30 ML BOTTLE PO SCH ×3 (08:24→17:04)
[2021-03-31 08:34] LABS: INR 1.2 (<1.2); Partial Thromboplastin Time 62.9 sec (22.0-30.0); Prothrombin Time 12.7 sec (9.0-12.0)
[2021-03-31 08:53] LABS: ALT 7 U/L (4-49); AST 23 U/L (17-59); African American GFR (CKD) >90 (>60 ml/min/1.73 sqM); Albumin 2.5 g/dL (3.5-5.0); Alkaline Phosphatase 132 U/L (38-126); Anion Gap 3 mmol/L; Blood Urea Nitrogen 29 mg/dL (9-20); Calcium 8.3 mg/dL (8.4-10.2); Carbon Dioxide 32 mmol/L (22-30); Chloride 105 mmol/L (98-107); Glucose 103 mg/dL (74-99); Non-African American GFR(CKD) 85 (>60 ml/min/1.73 sqM); Potassium 4.3 mmol/L (3.5-5.1); Sodium 140 mmol/L (137-145); Total Bilirubin 0.6 mg/dL (0.2-1.3); Total Protein 5.9 g/dL (6.3-8.2)
--- NOTE | 2021-03-31 13:44 | P.DS ---
Providers Date of admission: 03/30/21 08:05 Attending physician: Wiliam Modi Consults: 03/27/21 19:48 Consult Physician Urgent Consulting Provider: Thaddeus Sharp Consult Reason/Comments: syncope Do you want consulting provider notified?: Yes Primary care physician: Wiliam Modi - Discharge Diagnosis(es) (1) Syncope Current Visit: Yes Status: Acute (2) At risk for readmission to hospital Current Visit: No Status: Acute (3) Atrial fibrillation Current Visit: No Status: Acute (4) Congestive heart failure Current Visit: No Status: Acute (5) Left leg cellulitis Current Visit: No Status: Acute (6) NICM (nonischemic cardiomyopathy) Current Visit: No Status: Acute Hospital Course: This is a discharge summary 62-year-old white male with repeated syncope. He has no known history of acute CHF and congestive heart failure. The patient has had negative workup twice. I do not suspect this is a seizure disorder as he is not postictal. However, workup has been negative as far as the causative agent. Monitor has been negative for cardiac dow. He has been tolerating diet but still has immobility. Chronic cellulitis with hematoma with skin flap is noted in the lower extremity. He will be discharged once cleared by consultants to follow-up with me in about 1 week. Plan - Discharge Summary New Discharge Prescriptions: Continue RX: Tamsulosin HCl [Flomax] 0.8 mg PO DAILY@0800 RX: Isosorbide Mononitrate ER [Imdur] 30 mg PO DAILY@0800 RX: allopurinoL [Zyloprim] 300 mg PO HS@2100 RX: Potassium Chloride 20 meq PO BID@0800,1700 RX: Naproxen 500 mg PO BID@0800,1700 RX: Carvedilol [Coreg] 25 mg PO BID@0800,1700 RX: metOLazone [Zaroxolyn] 5 mg PO DAILY@0800 RX: lisinopriL [Zestril] 20 mg PO DAILY@0800 RX: Digoxin [Lanoxin] 125 mcg PO DAILY@0800 RX: SILVER sulfADIAZINE CREAM [Silvadene Cream] 1 applic TOPICAL DAILY@0800 RX: Magnesium Oxide 400 mg PO HS@2100 RX: Warfarin [Coumadin] 3 mg PO SUMOWETHFR RX: HYDROcodone/APAP 5-325MG [[place] 5-325] 1 tab PO Q6HR PRN 3 Days #12 tab PRN Reason: Pain RX: Na Phos,M-B/Na Phos,Di-Ba [Fleet Adult] 133 ml RECTAL DAILY PRN PRN Reason: Constipation Liquacel 30 ml PO BID@0800,1700 RX: Cephalexin [Keflex] 500 mg PO Q6HR 10 Days #40 cap RX: Menthol-Zinc Oxide Oint [Calmoseptine Oint] 1 applic TOPICAL BID RX: Warfarin [Coumadin] 2.5 mg PO TUSA@1800 RX: Warfarin [Coumadin] 2 mg PO TUSA@1800 RX: Albuterol Nebulized [Ventolin Nebulized] 2.5 mg INHALATION RT-Q6H PRN PRN Reason: Shortness Of Breath RX: bisacodyL [Dulcolax] 10 mg RECTAL DAILY PRN PRN Reason: Constipation RX: Simethicone 40 mg/0.6 ml Drops [Mylicon Drops] 100 mg PO QID@08,12,17,21 RX: Pantoprazole [Protonix] 40 mg PO BID@0800,1700 RX: Furosemide [Lasix] 40 mg PO BID@0600,1400 RX: Ferrous Sulfate [Iron (65 MG Elemental)] 325 mg PO DAILY@0800 RX: Magnesium Hydroxide [Milk of Magnesia] 2,400 mg PO DAILY PRN PRN Reason: Constipation Discharge Medication List RX: Isosorbide Mononitrate ER [Imdur] 30 mg PO DAILY@0800 04/11/14 [History] RX: Tamsulosin HCl [Flomax] 0.8 mg PO DAILY@0800 04/11/14 [History] RX: allopurinoL [Zyloprim] 300 mg PO HS@2100 03/03/16 [History] RX: Carvedilol [Coreg] 25 mg PO BID@0800,1700 04/25/18 [History] RX: Naproxen 500 mg PO BID@0800,1700 04/25/18 [History] RX: Potassium Chloride 20 meq PO BID@0800,1700 04/25/18 [History] RX: lisinopriL [Zestril] 20 mg PO DAILY@0800 04/25/18 [History] RX: metOLazone [Zaroxolyn] 5 mg PO DAILY@0800 04/25/18 [History] RX: Digoxin [Lanoxin] 125 mcg PO DAILY@0800 06/09/18 [History] RX: Magnesium Oxide 400 mg PO HS@2100 12/29/20 [History] RX: SILVER sulfADIAZINE CREAM [Silvadene Cream] 1 applic TOPICAL DAILY@0800 12/29/20 [History] RX: Albuterol Nebulized [Ventolin Nebulized] 2.5 mg INHALATION RT-Q6H PRN 02/27/21 [History] RX: Warfarin [Coumadin] 3 mg PO SUMOWETHFR 02/27/21 [History] RX: HYDROcodone/APAP 5-325MG [[place] 5-325] 1 tab PO Q6HR PRN 3 Days #12 tab 03/17/21 [Rx] Liquacel 30 ml PO BID@0800,1700 03/20/21 [History] RX: Ferrous Sulfate [Iron (65 MG Elemental)] 325 mg PO DAILY@0800 03/20/21 [History] RX: Furosemide [Lasix] 40 mg PO BID@0600,1400 03/20/21 [History] RX: Magnesium Hydroxide [Milk of Magnesia] 2,400 mg PO DAILY PRN 03/20/21 [History] RX: Na Phos,M-B/Na Phos,Di-Ba [Fleet Adult] 133 ml RECTAL DAILY PRN 03/20/21 [History] RX: Pantoprazole [Protonix] 40 mg PO BID@0800,1700 03/20/21 [History] RX: Simethicone 40 mg/0.6 ml Drops [Mylicon Drops] 100 mg PO QID@08,12,17,21 03/20/21 [History] RX: bisacodyL [Dulcolax] 10 mg RECTAL DAILY PRN 03/20/21 [History] RX: Cephalexin [Keflex] 500 mg PO Q6HR 10 Days #40 cap 03/26/21 [Rx] RX: Menthol-Zinc Oxide Oint [Calmoseptine Oint] 1 applic TOPICAL BID 03/27/21 [History] RX: Warfarin [Coumadin] 2 mg PO TUSA@1800 03/27/21 [History] RX: Warfarin [Coumadin] 2.5 mg PO TUSA@1800 03/27/21 [History] Follow up Appointment(s)/Referral(s): Wiliam Modi MD [Primary Care Provider] - 1-2 days
[2021-03-31 14:44] VITALS: BP 118/60; PULSE 82; RESP 20; TEMP 97.7
[2021-03-31] MEDS: HYDROcodone/APAP 5-325MG 1 EACH TAB PO PRN (17:05)
[2021-03-31] MEDS ORDERED: WARFARIN 7.5 MG TAB PO ONE (18:00)
== END 2021-03-31 18:10 | DRG 683 ==
LOC: SUPCPDRO 16:57 → EC 16:57 → 3SCARD 19:46 → OBSVTOIN 03-30 08:05
PROVIDERS: ADMIT Family Medicine; ATTEND Family Medicine
DX: N17.9 Acute kidney failure, unspecified (principal); I13.0 Hypertensive heart and chronic kidney disease with heart failure and stage 1 through stage 4 chronic kidney disease, or unspecified chronic kidney disease; I50.42 Chronic combined systolic (congestive) and diastolic (congestive) heart failure; I87.313 Chronic venous hypertension (idiopathic) with ulcer of bilateral lower extremity; I87.333 Chronic venous hypertension (idiopathic) with ulcer and inflammation of bilateral lower extremity; I42.8 Other cardiomyopathies; I48.19 Other persistent atrial fibrillation; L03.116 Cellulitis of left lower limb; L97.919 Non-pressure chronic ulcer of unspecified part of right lower leg with unspecified severity; L97.929 Non-pressure chronic ulcer of unspecified part of left lower leg with unspecified severity; Z16.24 Resistance to multiple antibiotics; E86.1 Hypovolemia; D63.1 Anemia in chronic kidney disease; Z20.822 Contact with and (suspected) exposure to COVID-19; E78.5 Hyperlipidemia, unspecified; E86.0 Dehydration; F41.9 Anxiety disorder, unspecified; G47.33 Obstructive sleep apnea (adult) (pediatric); N18.2 Chronic kidney disease, stage 2 (mild); I27.22 Pulmonary hypertension due to left heart disease; J44.9 Chronic obstructive pulmonary disease, unspecified; I89.0 Lymphedema, not elsewhere classified; I73.9 Peripheral vascular disease, unspecified; K80.20 Calculus of gallbladder without cholecystitis without obstruction; M19.041 Primary osteoarthritis, right hand; M19.042 Primary osteoarthritis, left hand; N40.0 Benign prostatic hyperplasia without lower urinary tract symptoms; Z79.01 Long term (current) use of anticoagulants; Z79.899 Other long term (current) drug therapy; Z83.3 Family history of diabetes mellitus; R79.1 Abnormal coagulation profile; R55 Syncope and collapse; M19.90 Unspecified osteoarthritis, unspecified site; M10.9 Gout, unspecified
CPT/HCPCS: 36415; 70450; 71045; 74176; 80048; 80053; 80162; 81001; 83735; 84484; 85025; 85610; 85730; 87635; 93005; 96360; 99285

== ENCOUNTER 2021-08-16 13:34 | Inpatient (IN) | payer MEDICARE, BC ==
[2021-08-16] MEDS ORDERED: DILTIAZEM DRIP BOLUS FROM BAG 1 MG SOLN IV ONE (13:42)
[2021-08-16] MEDS ORDERED: DILTIAZEM 125 MG in SODIUM CHLORIDE 0.9% 100 ML IV SCH (13:45)
--- NOTE | 2021-08-16 13:46 | ED ---
General Adult HPI - General Stated complaint: Chest pressure, hypertension Time Seen by Provider: 08/16/21 13:35 Source: patient, EMS, RN notes reviewed Mode of arrival: EMS Limitations: no limitations - History of Present Illness Initial comments: Patient is a pleasant [age]-year-old male presenting to the emergency department with concerns for chest discomfort. Patient complains of chest discomfort over the past couple of days. Discomfort has been up to 4/10. No discomfort at this time. Patient also has had some reported tachycardia. Patient has been fatigued. Patient states when he gets discomfort he becomes sweaty. No associated nausea vomiting. No dyspnea. Patient does have history of similar symptoms previously associated with cardiac problems. - Related Data Home Medications Medication Instructions Recorded Confirmed Isosorbide Mononitrate ER [Imdur] 30 mg PO HS 04/11/14 08/16/21 Tamsulosin HCl [Flomax] 0.4 mg PO HS@2130 04/11/14 08/16/21 allopurinoL [Zyloprim] 300 mg PO HS 03/03/16 08/16/21 Potassium Chloride 20 meq PO BID@0800,1700 04/25/18 08/16/21 Digoxin [Lanoxin] 125 mcg PO DAILY@0600 06/09/18 08/16/21 Magnesium Oxide 400 mg PO HS 12/29/20 08/16/21 Albuterol Nebulized [Ventolin 2.5 mg INHALATION RT-QID PRN 02/27/21 08/16/21 Nebulized] Ferrous Sulfate [Iron (65 MG 325 mg PO BID@0800,2100 03/20/21 08/16/21 Elemental)] Furosemide [Lasix] 40 mg PO BID@0800,1700 03/20/21 08/16/21 Liquacel 30 ml PO BID@0800,1700 03/20/21 08/16/21 Na Phos,M-B/Na Phos,Di-Ba [Fleet 133 ml RECTAL DAILY PRN 03/20/21 08/16/21 Adult] bisacodyL [Dulcolax] 10 mg RECTAL DAILY PRN 03/20/21 08/16/21 Acetaminophen Tab [Tylenol] 650 mg PO TID PRN 08/16/21 08/16/21 Apixaban [Eliquis] 2.5 mg PO BID@0800,1700 08/16/21 08/16/21 Hola Packet 1 packet PO BID@1200,2000 08/16/21 08/16/21 Magnesium Hydroxide [Milk of 7,200 mg PO Q48H PRN 08/16/21 08/16/21 Magnesia Concentrate] Midodrine [ProAmatine] 10 mg PO AC-TID 08/16/21 08/16/21 Sennosides [Senna] 8.6 mg PO BID@0800,2100 08/16/21 08/16/21 Simethicone [Simethicone Chew] 80 mg PO QID 08/16/21 08/16/21 guaiFENesin [guaiFENesin Oral 200 mg PO Q4H PRN 08/16/21 08/16/21 Solution] lisinopriL [Zestril] 5 mg PO HS 08/16/21 08/16/21 Previous Rx's Medication Instructions Recorded HYDROcodone/APAP 5-325MG [[place] 1 tab PO Q6HR PRN 3 Days #12 tab 03/17/21 5-325] Allergies Allergy/AdvReac Type Severity Reaction Status Date / Time No Known Allergies Allergy Verified 08/16/21 14:57 Review of Systems ROS Statement: Those systems with pertinent positive or pertinent negative responses have been documented in the HPI. ROS Other: All systems not noted in ROS Statement are negative. Constitutional: Denies: fever Eyes: Denies: eye pain ENT: Denies: ear pain Respiratory: Denies: cough, dyspnea Cardiovascular: Reports: as per HPI, chest pain, palpitations Endocrine: Reports: fatigue Gastrointestinal: Denies: abdominal pain, nausea, vomiting Genitourinary: Denies: dysuria Musculoskeletal: Denies: back pain Skin: Denies: rash Neurological: Denies: weakness Past Medical History Past Medical History: Atrial Fibrillation, Heart Failure, COPD, Hypertension, Osteoarthritis (OA), Pneumonia, Prostate Disorder, Renal Disease, Sleep Apnea/CPAP/BIPAP, Vascular Disorder Additional Past Medical History / Comment(s): Nonischemic cardiomyopathy, ca rdiac valve disease, bronchitis, JIMMIE with Cpap and O2 at 2L at hs, past decreased renal function, arthritis bilateral hands/knees, gout bilateral feet, numbness bilateral legs/feet, carpal tunnel syndrome bilaterally, bilateral hand tremors, nonhealing bilateral lower leg wounds/cellulitis, varicosities, lower leg/pedal edema, PVD, BPH. History of Any Multi-Drug Resistant Organisms: MRSA Date of last positivie culture/infection: 08/30/12 MDRO Source:: LEG(not sure which) Past Surgical History: Heart Catheterization Additional Past Surgical History / Comment(s): Split thickness skin graft to L leg, bronchoscopy, cyst and partial jaw removed/has screws, oral surgery age 8- too many teeth. Past Anesthesia/Blood Transfusion Reactions: Previous Problems w/ Anesthesia Additional Past Anesthesia/Blood Transfusion Reaction / Comment(s): STATED DURING BRONCH STOPPED BREATHING, (brochoscopy done at [facility]-record on chart) Past Psychological History: Anxiety Smoking Status: Never smoker Past Alcohol Use History: None Reported Past Drug Use History: None Reported - Past Family History Father Family Medical History: Dementia, Eye Disorder Additional Family Medical History / Comment(s): MACULAR DEGENERATION Mother Family Medical History: Diabetes Mellitus, Eye Disorder, Vascular Disorder Additional Family Medical History / Comment(s): ANEURYSMS, CATARACTS. General Exam Limitations: no limitations General appearance: alert, in no apparent distress Head exam: Present: normocephalic Eye exam: Present: normal appearance Neck exam: Present: normal inspection Respiratory exam: Present: normal lung sounds bilaterally Cardiovascular Exam: Present: tachycardia, irregular rhythm Expanded Peripheral pulses: 2+: Radial (R), Radial (L) GI/Abdominal exam: Present: soft. Absent: tenderness Extremities exam: Present: other (Bilateral lower legs wrapped with instructions not to remove until 08/19 second to recent skin graft. Patient denies any leg complaint) Neurological exam: Present: alert Psychiatric exam: Present: normal affect, normal mood Skin exam: Present: normal color Course Vital Signs 08/16/21 08/16/21 08/16/21 13:35 13:44 14:08 Temperature 98.2 F Pulse Rate 137 H 112 H Pulse Rate [ 140 H Oil Mixer ] Respiratory 16 18 Rate Blood Pressure 134/118 162/99 O2 Sat by Pulse 95 94 L Oximetry EKG Findings - EKG Comments: EKG Findings:: A. fib with rate of 110. QRS 158. QT 338. QTC 43. Normal axis. PVC present. Right bundle branch block. LVH criteria. Nonspecific ST- T. Medical Decision Making - Medical Decision Making Patient reevaluated and resting comfortably in bed, symptom free at this time. Heart rate has improved to 102. Patient updated on results and plan. Case discussed with Dr. murray, who will admit genoveva Modi. - Lab Data Result diagrams: 08/16/21 13:49 08/16/21 13:49 Lab Results 08/16/21 08/16/21 08/16/21 Range/Units 13:49 13:49 13:49 WBC 6.3 (3.8-10.6) k/uL RBC 4.28 L (4.30-5.90) m/uL Hgb 12.9 L (13.0-17.5) gm/dL Hct 40.0 (39.0-53.0) % MCV 93.5 (80.0-100.0) fL MCH 30.1 (25.0-35.0) pg MCHC 32.2 (31.0-37.0) g/dL RDW 16.8 H (11.5-15.5) % Plt Count 162 (150-450) k/uL MPV 9.9 Neutrophils % 81 % Lymphocytes % 11 % Monocytes % 4 % Eosinophils % 3 % Basophils % 0 % Neutrophils # 5.1 (1.3-7.7) k/uL Lymphocytes # 0.7 L (1.0-4.8) k/uL Monocytes # 0.2 (0-1.0) k/uL Eosinophils # 0.2 (0-0.7) k/uL Basophils # 0.0 (0-0.2) k/uL Hypochromasia Moderate Anisocytosis Slight PT 11.5 (9.0-12.0) sec INR 1.1 (<1.2) APTT 27.7 (22.0-30.0) sec Sodium 136 L (137-145) mmol/L Potassium 3.5 (3.5-5.1) mmol/L Chloride 103 (98-107) mmol/L Carbon Dioxide 29 (22-30) mmol/L Anion Gap 4 mmol/L BUN 23 H (9-20) mg/dL Creatinine 0.76 (0.66-1.25) mg/dL Est GFR (CKD-EPI)AfAm >90 (>60 ml/min/1.73 sqM) Est GFR (CKD-EPI)NonAf >90 (>60 ml/min/1.73 sqM) Glucose 299 H (74-99) mg/dL Calcium 8.1 L (8.4-10.2) mg/dL Magnesium 1.5 L (1.6-2.3) mg/dL Total Bilirubin 1.0 (0.2-1.3) mg/dL AST 66 H (17-59) U/L ALT 27 (4-49) U/L Alkaline Phosphatase 191 H (38-126) U/L Troponin I (0.000-0.034) ng/mL Total Protein 6.4 (6.3-8.2) g/dL Albumin 2.9 L (3.5-5.0) g/dL TSH 2.290 (0.465-4.680) mIU/L Free T4 1.24 (0.78-2.19) ng/dL Coronavirus (PCR) (Not Detectd) 08/16/21 08/16/21 Range/Units 13:49 14:07 WBC (3.8-10.6) k/uL RBC (4.30-5.90) m/uL Hgb (13.0-17.5) gm/dL Hct (39.0-53.0) % MCV (80.0-100.0) fL MCH (25.0-35.0) pg MCHC (31.0-37.0) g/dL RDW (11.5-15.5) % Plt Count (150-450) k/uL MPV Neutrophils % % Lymphocytes % % Monocytes % % Eosinophils % % Basophils % % Neutrophils # (1.3-7.7) k/uL Lymphocytes # (1.0-4.8) k/uL Monocytes # (0-1.0) k/uL Eosinophils # (0-0.7) k/uL Basophils # (0-0.2) k/uL Hypochromasia Anisocytosis PT (9.0-12.0) sec INR (<1.2) APTT (22.0-30.0) sec Sodium (137-145) mmol/L Potassium (3.5-5.1) mmol/L Chloride (98-107) mmol/L Carbon Dioxide (22-30) mmol/L Anion Gap mmol/L BUN (9-20) mg/dL Creatinine (0.66-1.25) mg/dL Est GFR (CKD-EPI)AfAm (>60 ml/min/1.73 sqM) Est GFR (CKD-EPI)NonAf (>60 ml/min/1.73 sqM) Glucose (74-99) mg/dL Calcium (8.4-10.2) mg/dL Magnesium (1.6-2.3) mg/dL Total Bilirubin (0.2-1.3) mg/dL AST (17-59) U/L ALT (4-49) U/L Alkaline Phosphatase (38-126) U/L Troponin I 0.042 H* (0.000-0.034) ng/mL Total Protein (6.3-8.2) g/dL Albumin (3.5-5.0) g/dL TSH (0.465-4.680) mIU/L Free T4 (0.78-2.19) ng/dL Coronavirus (PCR) Not Detected (Not Detectd) - Radiology Data Radiology results: image reviewed Critical Care Time Critical Care Time: Yes Total Critical Care Time: 32 Disposition Clinical Impression: Chest pain, Atrial fibrillation with RVR Disposition: ADMITTED IP TO THIS HOSP Is patient prescribed a controlled substance at d/c from ED?: No Referrals: Wiliam Modi MD [Primary Care Provider] - 1-2 days Decision Time: 15:09
[2021-08-16 13:57] LABS: Anisocytosis Slight; Basophils % (A) 0 %; Eosinophils # (A) 0.2 k/uL (0-0.7); Eosinophils % (A) 3 %; HGB 12.9 gm/dL (13.0-17.5); Hypochromasia Moderate; Lymphocytes # (A) 0.7 k/uL (1.0-4.8); Lymphocytes % (A) 11 %; MCH 30.1 pg (25.0-35.0); MCHC 32.2 g/dL (31.0-37.0); MCV 93.5 fL (80.0-100.0); Mean Platelet Volume 9.9; Monocytes # (A) 0.2 k/uL (0-1.0); Monocytes % (A) 4 %; Neutrophils # (A) 5.1 k/uL (1.3-7.7); Neutrophils % (A) 81 %; Platelet Count 162 k/uL (150-450); RBC 4.28 m/uL (4.30-5.90); RDW 16.8 % (11.5-15.5); WBC 6.3 k/uL (3.8-10.6)
[2021-08-16 14:08] LABS: INR 1.1 (<1.2); Partial Thromboplastin Time 27.7 sec (22.0-30.0); Prothrombin Time 11.5 sec (9.0-12.0)
[2021-08-16 14:23] LABS: ALT 27 U/L (4-49); AST 66 U/L (17-59); African American GFR (CKD) >90 (>60 ml/min/1.73 sqM); Albumin 2.9 g/dL (3.5-5.0); Alkaline Phosphatase 191 U/L (38-126); Anion Gap 4 mmol/L; Blood Urea Nitrogen 23 mg/dL (9-20); Calcium 8.1 mg/dL (8.4-10.2); Carbon Dioxide 29 mmol/L (22-30); Chloride 103 mmol/L (98-107); Glucose 299 mg/dL (74-99); Magnesium 1.5 mg/dL (1.6-2.3); Non-African American GFR(CKD) >90 (>60 ml/min/1.73 sqM); Potassium 3.5 mmol/L (3.5-5.1); Sodium 136 mmol/L (137-145); Total Protein 6.4 g/dL (6.3-8.2)
[2021-08-16 14:38] LABS: T4, Free (Free Thyroxine) 1.24 ng/dL (0.78-2.19)
[2021-08-16] MEDS ORDERED: ASPIRIN 81 MG PO STA (15:09)
[2021-08-16] MEDS ORDERED: NITROGLYCERIN SL TABS 0.4 MG TAB SUBLINGUAL PRN (15:09)
--- NOTE | 2021-08-16 15:47 | XR ---
EXAMINATION TYPE: XR chest 1V portable DATE OF EXAM: 08/16/2021 COMPARISON: 03/27/2021 HISTORY: Dysrhythmia TECHNIQUE: Single view FINDINGS: There is no heart failure nor confluent pneumonic infiltrate. Costophrenic angles are clear . There are chest leads. IMPRESSION: No active cardiopulmonary disease. Inspiration improved compared to last exam.
[2021-08-17] MEDS ORDERED: guaiFENesin SYRUP 100MG/5ML 200 MG/10 ML CUP PO PRN (07:49)
[2021-08-17] MEDS ORDERED: HYDROcodone/APAP 5-325MG 1 EACH TAB PO PRN (07:49)
[2021-08-17] MEDS ORDERED: NA PHOS,M-B/NA PHOS,DI-BA 133 ML ENEMA RECTAL PRN (07:49)
[2021-08-17] MEDS ORDERED: bisacodyL 10 MG SUPP RECTAL PRN (07:49)
[2021-08-17] MEDS ORDERED: ACETAMINOPHEN TAB 325 MG TAB PO PRN (07:49)
[2021-08-17] MEDS ORDERED: ALBUTEROL NEBULIZED 2.5 MG/3 ML INHALATION PRN (07:49)
[2021-08-17] MEDS ORDERED: MAGNESIUM HYDROXIDE 2,400 MG/10 ML CUP PO PRN (07:49)
[2021-08-17] MEDS ORDERED: APIXABAN 2.5 MG TABLET PO SCH (08:00)
[2021-08-17] MEDS ORDERED: NON FORMULARY DRUG (Liquacel 30 ML) PO SCH (08:00)
--- NOTE | 2021-08-17 08:01 | P.HPIM ---
History of Present Illness H&P Date: 08/17/21 Chief Complaint: Chest Pain This is a history of physical 71-year-old white male with known history of bilateral lower extremity cellulitis, nonischemic cardiomyopathy with history of atrial fibrillation. He states for 2 days prior to admission, he was having significant problems with chest pain. Usually he states when heis heart failure with weight gain and shortness of breath but he stated more chest pain today. ER workup did show significant atrial fibrillation with rapid ventricular response. He is now admitted for rate control and to rule out myocardial infarc tion. Cardiology consulted. No fever or chills. Mobility is limited. His also has significant struggles at home with mobility because of her morbid obesity. Review of Systems Constitutional: Denies chills, Denies fever Eyes: denies blurred vision, denies pain Ears, nose, mouth and throat: Denies headache, Denies sore throat Cardiovascular: Reports as per HPI, Reports chest pain Respiratory: Denies cough Gastrointestinal: Denies abdominal pain, Denies diarrhea, Denies nausea, Denies vomiting Musculoskeletal: Denies myalgias Past Medical History Past Medical History: Atrial Fibrillation, Heart Failure, COPD, Hypertension, Osteoarthritis (OA), Pneumonia, Prostate Disorder, Renal Disease, Sleep Apnea/CPAP/BIPAP, Vascular Disorder Additional Past Medical History / Comment(s): Nonischemic cardiomyopathy, cardiac valve disease, bronchitis, JIMMIE with Cpap and O2 at 2L at hs, past decreased renal function, arthritis bilateral hands/knees, gout bilateral feet, numbness bilateral legs/feet, carpal tunnel syndrome bilaterally, bilateral hand tremors, nonhealing bilateral lower leg wounds/cellulitis, varicosities, lower leg/pedal edema, PVD, BPH. History of Any Multi-Drug Resistant Organisms: MRSA Date of last positivie culture/infection: 08/30/12 MDRO Source:: LEG(not sure which) Past Surgical History: Heart Catheterization Additional Past Surgical History / Comment(s): Split thickness skin graft to L l eg, bronchoscopy, cyst and partial jaw removed/has screws, oral surgery age 8- too many teeth. Past Anesthesia/Blood Transfusion Reactions: Previous Problems w/ Anesthesia Additional Past Anesthesia/Blood Transfusion Reaction / Comment(s): STATED VIJAY GALEANO BRONCH STOPPED BREATHING, (brochoscopy done at [facility]-record on chart) Past Psychological History: Anxiety Smoking Status: Never smoker Past Alcohol Use History: None Reported Past Drug Use History: None Reported - Past Family History Father Family Medical History: Dementia, Eye Disorder Additional Family Medical History / Comment(s): MACULAR DEGENERATION Mother Family Medical History: Diabetes Mellitus, Eye Disorder, Vascular Disorder Additional Family Medical History / Comment(s): ANEURYSMS, CATARACTS. Medications and Allergies Home Medications Medication Instructions Recorded Confirmed Type Isosorbide Mononitrate ER [Imdur] 30 mg PO HS 04/11/14 08/16/21 History Tamsulosin HCl [Flomax] 0.4 mg PO HS@2130 04/11/14 08/16/21 History allopurinoL [Zyloprim] 300 mg PO HS 03/03/16 08/16/21 History Potassium Chloride 20 meq PO BID@0800,1700 04/25/18 08/16/21 History Digoxin [Lanoxin] 125 mcg PO DAILY@0600 06/09/18 08/16/21 History Magnesium Oxide 400 mg PO HS 12/29/20 08/16/21 History Albuterol Nebulized [Ventolin 2.5 mg INHALATION RT-QID PRN 02/27/21 08/16/21 History Nebulized] HYDROcodone/APAP 5-325MG [[place] 1 tab PO Q6HR PRN 3 Days #12 tab 03/17/21 08/16/21 Rx 5-325] Ferrous Sulfate [Iron (65 MG 325 mg PO BID@0800,2100 03/20/21 08/16/21 History Elemental)] Furosemide [Lasix] 40 mg PO BID@0800,1700 03/20/21 08/16/21 History Liquacel 30 ml PO BID@0800,1700 03/20/21 08/16/21 History Na Phos,M-B/Na Phos,Di-Ba [Fleet 133 ml RECTAL DAILY PRN 03/20/21 08/16/21 H istory Adult] bisacodyL [Dulcolax] 10 mg RECTAL DAILY PRN 03/20/21 08/16/21 History Acetaminophen Tab [Tylenol] 650 mg PO TID PRN 08/16/21 08/16/21 History Apixaban [Eliquis] 2.5 mg PO BID@0800,1700 08/16/21 08/16/21 History Hola Packet 1 packet PO BID@1200,2000 08/16/21 08/16/21 History Magnesium Hydroxide [Milk of 7,200 mg PO Q48H PRN 08/16/21 08/16/21 History Magnesia Concentrate] Midodrine [ProAmatine] 10 mg PO AC-TID 08/16/21 08/16/21 History Sennosides [Senna] 8.6 mg PO BID@0800,2100 08/16/21 08/16/21 History Simethicone [Simethicone Chew] 80 mg PO QID 08/16/21 08/16/21 History guaiFENesin [guaiFENesin Oral 200 mg PO Q4H PRN 08/16/21 08/16/21 History Solution] lisinopriL [Zestril] 5 mg PO HS 08/16/21 08/16/21 History Allergies Allergy/AdvReac Type Severity Reaction Status Date / Time No Known Allergies Allergy Verified 08/16/21 14:57 Physical Exam Vitals: Vital Signs Temp Pulse Pulse Resp BP BP Pulse Ox 08/17/21 05:00 79 18 179/93 98 08/16/21 23:44 98 19 159/95 92 L 08/16/21 20:00 98.5 F 70 89 17 155/107 156/85 95 08/16/21 14:08 112 H 18 162/99 94 L 08/16/21 13:44 140 H 08/16/21 13:35 98.2 F 137 H 16 134/118 95 Intake and Output 08/16/21 08/17/21 08/17/21 22:59 06:59 14:59 Other: Voiding Method Diaper # Voids 1 - Constitutional General appearance: no acute distress - Neck Neck: no lymphadenopathy - Respiratory Respiratory: bilateral: diminished - Cardiovascular Rhythm: regular Heart sounds: normal: S1, S2 Abnormal Heart Sounds: no S3 Gallop - Gastrointestinal General gastrointestinal: soft, no tenderness - Integumentary chronic stasis edema Integumentary: cellulitis Results CBC & Chem 7: 08/16/21 13:49 08/16/21 13:49 Labs: Abnormal Lab Results - Last 24 Hours (Table) 08/16/21 08/16/21 08/16/21 Range/Units 13:49 13:49 13:49 RBC 4.28 L (4.30-5.90) m/uL Hgb 12.9 L (13.0-17.5) gm/dL RDW 16.8 H (11.5-15.5) % Lymphocytes # 0.7 L (1.0-4.8) k/uL Sodium 136 L (137-145) mmol/L BUN 23 H (9-20) mg/dL Glucose 299 H (74-99) mg/dL Calcium 8.1 L (8.4-10.2) mg/dL Magnesium 1.5 L (1.6-2.3) mg/dL AST 66 H (17-59) U/L Alkaline Phosphatase 191 H (38-126) U/L Troponin I 0.042 H* (0.000-0.034) ng/mL Albumin 2.9 L (3.5-5.0) g/dL 08/16/21 08/16/21 Range/Units 17:04 20:34 RBC (4.30-5.90) m/uL Hgb (13.0-17.5) gm/dL RDW (11.5-15.5) % Lymphocytes # (1.0-4.8) k/uL Sodium (137-145) mmol/L BUN (9-20) mg/dL Glucose (74-99) mg/dL Calcium (8.4-10.2) mg/dL Magnesium (1.6-2.3) mg/dL AST (17-59) U/L Alkaline Phosphatase (38-126) U/L Troponin I 0.043 H* 0.048 H* (0.000-0.034) ng/mL Albumin (3.5-5.0) g/dL Assessment and Plan (1) Atrial fibrillation with RVR Current Visit: Yes Status: Acute Code(s): I48.91 - UNSPECIFIED ATRIAL FIBRILLATION SNOMED Code(s): 818725441536806 (2) Chest pain Current Visit: Yes Status: Acute Code(s): R07.9 - CHEST PAIN, UNSPECIFIED SNOMED Code(s): 10381039 (3) At risk for readmission to hospital Current Visit: No Status: Acute Code(s): Z91.89 - OTH PERSONAL RISK FACTORS, NOT ELSEWHERE CLASSIFIED SNOMED Code(s): 1749848100071 (4) Bilateral lower extremity edema Current Visit: No Status: Acute Code(s): R60.0 - LOCALIZED EDEMA SNOMED Code(s): 466255516 (5) Bilateral lower leg cellulitis Current Visit: No Status: Acute Code(s): L03.116 - CELLULITIS OF LEFT LOWER LIMB SNOMED Code(s): 170530614 (6) CHF (congestive heart failure) Current Visit: No Status: Acute Code(s): I50.9 - HEART FAILURE, UNSPECIFIED SNOMED Code(s): 61505649 (7) Debility Current Visit: No Status: Acute Code(s): R53.81 - OTHER MALAISE SNOMED Code(s): 37891915 (8) Elevated troponin Current Visit: No Status: Acute Code(s): R77.8 - OTHER SPECIFIED ABNORMALITIES OF PLASMA PROTEINS SNOMED Code(s): 774659474 (9) NICM (nonischemic cardiomyopathy) Current Visit: No Status: Acute Code(s): I42.8 - OTHER CARDIOMYOPATHIES SNOMED Code(s): 50980737 (10) Venous stasis ulcers of both lower extremities Current Visit: No Status: Acute Code(s): I83.019 - VARICOSE VEINS OF RIGHT LOWER EXTREMITY W ULCER OF UNSP SITE; I83.029 - VARICOSE VEINS OF LEFT LOWER EXTREMITY W ULCER OF UNSP SITE; L97.919 - NON-PRS CHRONIC ULC UNSP PRT OF R LOW LEG W UNSP SEVERITY; L97.929 - NON-PRS CHRONIC ULC UNSP PRT OF L LOW LEG W UNSP SEVERITY SNOMED Code(s): 945696431 Plan: Reconcile medications. Hold Midodrine due to blood pressure. Question need for echocardiogram. Check CBC and CMP and magnesium in a.m. Prognosis is guarded. See orders otherwise.
[2021-08-17] MEDS ORDERED: ASPIRIN 325 MG TAB PO SCH (09:00)
[2021-08-17 10:20] LABS: Chol/HDL Ratio 4.25 Ratio; LDL Cholesterol,Calculated 64.4 mg/dL (0.0-131.0)
[2021-08-17] MEDS: FERROUS SULFATE 325 MG TAB PO SCH ×2 (10:52→20:54)
[2021-08-17] MEDS: FUROSEMIDE 40 MG TAB PO SCH ×2 (10:52→18:08)
[2021-08-17] MEDS: SIMETHICONE 80 MG CHEWABLE PO SCH ×4 (10:53→22:02)
[2021-08-17] MEDS: METOPROLOL TARTRATE 50 MG TAB PO SCH ×2 (10:57→20:54)
[2021-08-17] MEDS: POTASSIUM CHLORIDE ER 20 MEQ TAB.ER PO SCH ×2 (10:57→18:08)
[2021-08-17] MEDS: SENNOSIDES 8.6 MG TAB PO SCH ×2 (10:57→20:54)
[2021-08-17] MEDS ORDERED: NON FORMULARY DRUG (Juven Packet 1 PACKET Packet) PO SCH (12:00)
--- NOTE | 2021-08-17 12:08 | P.CRDCN ---
History of Present Illness Consult date: 08/17/21 History of present illness: HISTORY OF PRESENT ILLNESS: This is a 71-year-old male with a past medical history significant for mild cardiomyopathy, atrial fibrillation, hypertension, and chronic kidney disease. Patient follows in the office with Dr. Pendleton. We have been asked to see the patient in consultation for A. fib with RVR. Patient examined at the bedside. Patient presented to the hospital with a chief complaint of chest discomfort and chest palpitations. The patient was found to be in A. fib with RVR. Patient was started on IV Cardizem drip. Patient currently denies chest pain or pressure at the time of examination. He denies any shortness of breath. He remains in atrial fibrillation with mildly uncontrolled ventricular rate. He remains on IV Cardizem. * EKG reveals atrial fibrillation with RVR * Chest xray negative for acute process * Laboratory data: WBC 6.3. Hemoglobin 12.9. Platelet count 162. Sodium 136. Potassium 3.5. BUN 23. Creatinine 0.76. Troponin 0.042. 0.043. 0.048. * Current home cardiac medications include Eliquis 2.5 mg twice a day, digoxin 125 g daily, Lasix 40 mg twice a day, Imdur 30 mg at night, lisinopril 5 mg at night * Most recent echocardiogram obtained in December 2020 revealed ejection fraction 45-50%, trace to mild aortic regurgitation, mild mitral regurgitation, mild tricuspid regurgitation, and moderate pulmonary hypertension REVIEW OF SYSTEMS: At the time of my exam: CONSTITUTIONAL: Denies fever or chills. HEENT: Denies blurred vision, vision changes, or eye pain. Denies hemoptysis CARDIOVASCULAR: Denies chest pain. Denies orthopnea. Denies PND. Denies palpitations RESPIRATORY: Denies shortness of breath. GASTROINTESTINAL: Denies abdominal pain. Denies nausea or vomiting. HEMATOLOGIC: Denies bleeding disorders. GENITOURINARY: Denies any blood in urine. SKIN: Denies pruitis. Denies rash. PHYSICAL EXAM: VITAL SIGNS: Reviewed. GENERAL: Well-developed in no acute distress. HEENT: Head is normocephalic. Pupils are equal, round. Sclerae anicteric. Mucous membranes of the mouth are moist. Neck supple. No JVD or thyromegaly LUNGS: Respirations even and unlabored. Lungs essentially clear to auscultation bilaterally. HEART: Tachcardic. Irregular rate and rhythm. S1 and S2 heard. ABDOMEN: Soft. Nondistended. Nontender. EXTREMITIES: Normal range of motion. No clubbing or cyanosis. Peripheral pulses intact. No lower extremity edema NEUROLOGIC: Awake and alert. Oriented x 3. ASSESSMENT: Permanent atrial fibrillation with RVR Abnormal troponins, secondary to above, ACS ruled out History of mild nonischemic cardiomyopathy Hypertension Chronic kidney function Chronic diastolic congestive heart failure, EF 45-50% PLAN: An acute coronary event has been ruled out Obtain 2D echo to assess cardiac structure and function Discontinue IV Cardizem Increase Eliquis to 5mg BID Add metoprolol 50mg BID Continue telemetry monitoring Patient may be discharged home this afternoon if he remains stable Nurse practitioner note has been reviewed by physician. Signing provider agrees with the documented findings, assessment, and plan of care. Past Medical History Past Medical History: Atrial Fibrillation, Heart Failure, COPD, Hypertension, Osteoarthritis (OA), Pneumonia, Prostate Disorder, Renal Disease, Sleep Apnea/CPAP/BIPAP, Vascular Disorder Additional Past Medical History / Comment(s): Nonischemic cardiomyopathy, cardiac valve disease, bronchitis, JIMMIE with Cpap and O2 at 2L at hs, past decreased renal function, arthritis bilateral hands/knees, gout bilateral feet, numbness bilateral legs/feet, carpal tunnel syndrome bilaterally, bilateral hand tremors, nonhealing bilateral lower leg wounds/cellulitis, varicosities, lower leg/pedal edema, PVD, BPH. History of Any Multi-Drug Resistant Organisms: MRSA Date of last positivie culture/infection: 08/30/12 MDRO Source:: LEG(not sure which) Past Surgical History: Heart Catheterization Additional Past Surgical History / Comment(s): Split thickness skin graft to L leg, bronchoscopy, cyst and partial jaw removed/has screws, oral surgery age 8- too many teeth. Past Anesthesia/Blood Transfusion Reactions: Previous Problems w/ Anesthesia Additional Past Anesthesia/Blood Transfusion Reaction / Comment(s): STATED DURING BRONCH STOPPED BREATHING, (brochoscopy done at [facility]-record on chart) Past Psychological History: Anxiety Smoking Status: Never smoker Past Alcohol Use History: None Reported Past Drug Use History: None Reported - Past Family History Father Family Medical History: Dementia, Eye Disorder Additional Family Medical History / Comment(s): MACULAR DEGENERATION Mother Family Medical History: Diabetes Mellitus, Eye Disorder, Vascular Disorder Additional Family Medical History / Comment(s): ANEURYSMS, CATARACTS. Medications and Allergies Home Medications Medication Instructions Recorded Confirmed Type Isosorbide Mononitrate ER [Imdur] 30 mg PO HS 04/11/14 08/16/21 History Tamsulosin HCl [Flomax] 0.4 mg PO HS@2130 04/11/14 08/16/21 History allopurinoL [Zyloprim] 300 mg PO HS 03/03/16 08/16/21 History Potassium Chloride 20 meq PO BID@0800,1700 04/25/18 08/16/21 History Digoxin [Lanoxin] 125 mcg PO DAILY@0600 06/09/18 08/16/21 History Magnesium Oxide 400 mg PO HS 12/29/20 08/16/21 History Albuterol Nebulized [Ventolin 2.5 mg INHALATION RT-QID PRN 02/27/21 08/16/21 History Nebulized] HYDROcodone/APAP 5-325MG [[place] 1 tab PO Q6HR PRN 3 Days #12 tab 03/17/21 08/16/21 Rx 5-325] Ferrous Sulfate [Iron (65 MG 325 mg PO BID@0800,2100 03/20/21 08/16/21 History Elemental)] Furosemide [Lasix] 40 mg PO BID@0800,1700 03/20/21 08/16/21 History Liquacel 30 ml PO BID@0800,1700 03/20/21 08/16/21 History Na Phos,M-B/Na Phos,Di-Ba [Fleet 133 ml RECTAL DAILY PRN 03/20/21 08/16/21 History Adult] bisacodyL [Dulcolax] 10 mg RECTAL DAILY PRN 03/20/21 08/16/21 History Acetaminophen Tab [Tylenol] 650 mg PO TID PRN 08/16/21 08/16/21 History Apixaban [Eliquis] 2.5 mg PO BID@0800,1700 08/16/21 08/16/21 History Hola Packet 1 packet PO BID@1200,2000 08/16/21 08/16/21 History Magnesium Hydroxide [Milk of 7,200 mg PO Q48H PRN 08/16/21 08/16/21 History Magnesia Concentrate] Midodrine [ProAmatine] 10 mg PO AC-TID 08/16/21 08/16/21 History Sennosides [Senna] 8.6 mg PO BID@0800,2100 08/16/21 08/16/21 History Simethicone [Simethicone Chew] 80 mg PO QID 08/16/21 08/16/21 History guaiFENesin [guaiFENesin Oral 200 mg PO Q4H PRN 08/16/21 08/16/21 History Solution] lisinopriL [Zestril] 5 mg PO HS 08/16/21 08/16/21 History Allergies Allergy/AdvReac Type Severity Reaction Status Date / Time No Known Allergies Allergy Verified 08/16/21 14:57 Physical Exam Vitals: Vital Signs Temp Pulse Pulse Resp BP BP Pulse Ox 08/17/21 11:51 98.4 F 91 16 157/101 100 08/17/21 08:25 97.9 F 94 16 171/95 100 08/17/21 05:00 79 18 179/93 98 08/16/21 23:44 98 19 159/95 92 L 08/16/21 20:00 98.5 F 70 89 17 155/107 156/85 95 08/16/21 14:08 112 H 18 162/99 94 L 08/16/21 13:44 140 H 08/16/21 13:35 98.2 F 137 H 16 134/118 95 Intake and Output 08/16/21 08/17/21 08/17/21 22:59 06:59 14:59 Other: Voiding Method Diaper Diaper # Voids 1 Weight 104.326 kg Results 08/16/21 13:49 08/16/21 13:49 Cardiac Enzymes 08/16/21 08/16/21 08/16/21 Range/Units 13:49 13:49 17:04 AST 66 H (17-59) U/L Troponin I 0.042 H* 0.043 H* (0.000-0.034) ng/mL 08/16/21 Range/Units 20:34 AST (17-59) U/L Troponin I 0.048 H* (0.000-0.034) ng/mL Coagulation 08/16/21 Range/Units 13:49 PT 11.5 (9.0-12.0) sec APTT 27.7 (22.0-30.0) sec Lipids 08/17/21 Range/Units 06:40 Triglycerides 133.00 (0.00-149.00) mg/dL Cholesterol 119.00 (0.00-200.00) mg/dL HDL Cholesterol 28.00 L (40.00-60.00) mg/dL Cholesterol/HDL Ratio 4.25 Ratio CBC 08/16/21 Range/Units 13:49 WBC 6.3 (3.8-10.6) k/uL RBC 4.28 L (4.30-5.90) m/uL Hgb 12.9 L (13.0-17.5) gm/dL Hct 40.0 (39.0-53.0) % Plt Count 162 (150-450) k/uL Comprehensive Metabolic Panel 08/16/21 Range/Units 13:49 Sodium 136 L (137-145) mmol/L Potassium 3.5 (3.5-5.1) mmol/L Chloride 103 (98-107) mmol/L Carbon Dioxide 29 (22-30) mmol/L BUN 23 H (9-20) mg/dL Creatinine 0.76 (0.66-1.25) mg/dL Glucose 299 H (74-99) mg/dL Calcium 8.1 L (8.4-10.2) mg/dL AST 66 H (17-59) U/L ALT 27 (4-49) U/L Alkaline Phosphatase 191 H (38-126) U/L Total Protein 6.4 (6.3-8.2) g/dL Albumin 2.9 L (3.5-5.0) g/dL Current Medications Generic Name Dose Route Start Last Admin Trade Name Freq PRN Reason Stop Dose Admin Acetaminophen 650 mg 08/17/21 07:49 Acetaminophen Tab 325 Mg Tab PO TID PRN Mild Pain Hydrocodone Bitart/Acetaminophen 1 each 08/17/21 07:49 Hydrocodone/Apap 5-325mg 1 Each Tab PO Q6HR PRN Moderate Pain Albuterol Sulfate 2.5 mg 08/17/21 07:49 Albuterol Nebulized 2.5 Mg/3 Ml INHALATION RT-QID PRN Shortness Of Breath Allopurinol 300 mg 08/17/21 21:00 Allopurinol 300 Mg Tab PO HS JULIEN Apixaban 5 mg 08/17/21 17:00 Apixaban 5 Mg Tab PO BID@0800,1700 [facility] Protocol Bisacodyl 10 mg 08/17/21 07:49 Bisacodyl 10 Mg Supp RECTAL DAILY PRN Constipation Digoxin 125 mcg 08/18/21 06:00 Digoxin 125 Mcg Tab PO DAILY@0600 [facility] Ferrous Sulfate 325 mg 08/17/21 08:00 08/17/21 10:52 Ferrous Sulfate 325 Mg Tab PO 325 mg BID@0800,2100 [facility] Administration Furosemide 40 mg 08/17/21 08:00 08/17/21 10:52 Furosemide 40 Mg Tab PO 40 mg BID@0800,1700 [facility] Administration Guaifenesin 200 mg 08/17/21 07:49 Guaifenesin Syrup 100mg/5ml 200 Mg/10 Ml Cup PO Q4H PRN Cough Isosorbide Mononitrate 30 mg 08/17/21 21:00 Isosorbide Mononitrate Er 30 Mg Tab.Er.24h PO [facility] Lisinopril 5 mg 08/17/21 21:00 Lisinopril 5 Mg Tab PO [facility] Magnesium Hydroxide 7,200 mg 08/17/21 07:49 Magnesium Hydroxide 2,400 Mg/10 Ml Cup PO Q48H PRN Constipation Magnesium Oxide 400 mg 08/17/21 21:00 Magnesium Oxide 400 Mg Tab PO [facility] Metoprolol Tartrate 50 mg 08/17/21 10:30 08/17/21 10:57 Metoprolol Tartrate 50 Mg Tab PO 50 mg BID [facility] Administration Nitroglycerin 0.4 mg 08/16/21 15:09 Nitroglycerin Sl Tabs 0.4 Mg Tab SUBLINGUAL Q5M PRN Chest Pain Potassium Chloride 20 meq 08/17/21 08:00 08/17/21 10:57 Potassium Chloride Er 20 Meq Tab.Er PO 20 meq BID@0800,1700 [facility] Administration Senna 8.6 mg 08/17/21 08:00 08/17/21 10:57 Sennosides 8.6 Mg Tab PO 8.6 mg BID@0800,2100 [facility] Administration Simethicone 80 mg 08/17/21 09:00 08/17/21 10:53 Simethicone 80 Mg Chewable PO 80 mg QID [facility] Administration Sodium Biphosphate/Sodium Phosphate 133 ml 08/17/21 07:49 Na Phos,M-B/Na Phos,Di-Ba 133 Ml Enema RECTAL DAILY PRN Constipation Tamsulosin HCl 0.4 mg 08/17/21 21:30 Tamsulosin 0.4 Mg Cap.Er.24h PO HS@2130 JULIEN Intake and Output 08/16/21 08/17/21 08/17/21 22:59 06:59 14:59 Other: Voiding Method Diaper Diaper # Voids 1 Weight 104.326 kg 08/16/21 13:49 08/16/21 13:49
[2021-08-17] MEDS: APIXABAN 5 MG TAB PO SCH (18:08)
[2021-08-17] MEDS ORDERED: MAGNESIUM OXIDE 400 MG TAB PO SCH (21:00)
[2021-08-17] MEDS ORDERED: lisinopriL 5 MG TAB PO SCH (21:00)
[2021-08-17] MEDS ORDERED: allopurinoL 300 MG TAB PO SCH (21:00)
[2021-08-17] MEDS ORDERED: ISOSORBIDE MONONITRATE ER 30 MG TAB.ER.24H PO SCH (21:00)
[2021-08-17] MEDS ORDERED: TAMSULOSIN 0.4 MG CAP.ER.24H PO SCH (21:30)
[2021-08-18] MEDS ORDERED: DIGOXIN 125 MCG TAB PO SCH (06:00)
[2021-08-18 07:28] LABS: Anisocytosis Slight; HCT 39.7 % (39.0-53.0); Hypochromasia Moderate; MCHC 30.4 g/dL (31.0-37.0); MCV 95.6 fL (80.0-100.0); Mean Platelet Volume 8.9; Platelet Count 176 k/uL (150-450); RBC 4.15 m/uL (4.30-5.90); RDW 16.3 % (11.5-15.5); WBC 8.1 k/uL (3.8-10.6)
[2021-08-18 07:36] LABS: ALT 23 U/L (4-49); AST 36 U/L (17-59); African American GFR (CKD) >90 (>60 ml/min/1.73 sqM); Alkaline Phosphatase 192 U/L (38-126); Anion Gap 5 mmol/L; Blood Urea Nitrogen 24 mg/dL (9-20); Calcium 8.7 mg/dL (8.4-10.2); Carbon Dioxide 34 mmol/L (22-30); Chloride 101 mmol/L (98-107); Glucose 194 mg/dL (74-99); Magnesium 1.7 mg/dL (1.6-2.3); Non-African American GFR(CKD) 88 (>60 ml/min/1.73 sqM); Potassium 3.2 mmol/L (3.5-5.1); Sodium 140 mmol/L (137-145); Total Protein 6.4 g/dL (6.3-8.2)
--- NOTE | 2021-08-18 07:48 | ECHOF ---
Referral Reason:atrial fibrillation/chf MEASUREMENTS -------- HEIGHT: 152.4 cm WEIGHT: 99.3 kg BP: RVIDd: 4.4 cm (< 3.3) IVSd: 1.5 cm (0.6 - 1.1) LVIDd: 5.0 cm (3.9 - 5.3) LVPWd: 1.8 cm (0.6 - 1.1) IVSs: 1.7 cm LVIDs: 4.3 cm LVPWs: 2.0 cm LA Diam: 5.8 cm (2.7 - 3.8) LAESV Index (A-L): 64.44 ml/m Ao Diam: 4.1 cm (2.0 - 3.7) AV Cusp: 2.0 cm (1.5 - 2.6) LA Diam: 6.5 cm (2.7 - 3.8) MV EXCURSION: 18.959 mm (> 18.000) MV EF SLOPE: 107 mm/s (70 - 150) EPSS: 0.5 cm RAP: 5.00 mmHg RVSP: 31.59 mmHg FINDINGS -------- Atrial fibrillation. This was a technically adequate study. The left ventricular size is normal. There is moderate concentric left ventricular hypertrophy. O verall left ventricular systolic function is normal with, an EF between 55 - 60 %. The right ventricle is severely enlarged. LA is severely dilated >40 ml/m2 The right atrial size is normal. There is moderate aortic valve sclerosis. Trace to mild aortic regurgitation. Mild mitral annular calcification present. Shhp-by-chpqzijh mitral regurgitation is present. The tricuspid valve appears structurally normal. Fqek-yo-losmdyxu tricuspid regurgitation present. Right ventricular systolic pressure is normal at < 35 mmHg. The right ventricular systolic pressu re, as measured by Doppler, is 31.59mmHg. The pulmonic valve was not well visualized. The aortic root is mildy dilated. There is no pericardial effusion. CONCLUSIONS -------- 1. There is moderate concentric left ventricular hypertrophy. 2. Overall left ventricular systolic function is normal with, an EF between 55 - 60 %. 3. The right ventricle is severely enlarged. 4. LA is severely dilated >40 ml/m2 5. There is moderate aortic valve sclerosis. 6. Trace to mild aortic regurgitation. 7. Mild mitral annular calcification present. 8. Eoyr-jp-evybkpte mitral regurgitation is present. 9. Xrgq-fg-regowkum tricuspid regurgitation present. 10. The aortic root is mildy dilated. 11. There is no pericardial effusion. LICENSED OCCUPATIONAL THERAPIST: Lesley Christopher RDCS
--- NOTE | 2021-08-18 08:07 | P.DS ---
Providers Date of admission: 08/16/21 15:09 Attending physician: Wiliam Modi Consults: 08/16/21 15:09 Consult Physician Urgent Consulting Provider: Alexander Pendleton Consult Reason/Comments: a fib w rvr, cp Do you want consulting provider notified?: Yes Primary care physician: Wiliam Modi - Discharge Diagnosis(es) (1) Atrial fibrillation with RVR Current Visit: Yes Status: Acute (2) Chest pain Current Visit: Yes Status: Acute (3) At risk for readmission to hospital Current Visit: No Status: Acute (4) Bilateral lower extremity edema Current Visit: No Status: Acute (5) Bilateral lower leg cellulitis Current Visit: No Status: Acute (6) CHF (congestive heart failure) Current Visit: No Status: Acute (7) Debility Current Visit: No Status: Acute (8) Elevated troponin Current Visit: No Status: Acute (9) NICM (nonischemic cardiomyopathy) Current Visit: No Status: Acute (10) Venous stasis ulcers of both lower extremities Current Visit: No Status: Acute Hospital Course: This discharge summary 71-year-old white male essentially minute for atrial for management. Response. Multiple stab cardiology. The patient NE was ruled out tachycardic and was done and reviewed. The patient will be discharged in stable condition to follow-up with me in about one week. Plan - Discharge Summary New Discharge Prescriptions: New Metoprolol Tartrate [Lopressor] 50 mg PO BID #60 tab Continue Tamsulosin HCl [Flomax] 0.4 mg PO HS@2130 Isosorbide Mononitrate ER [Imdur] 30 mg PO HS allopurinoL [Zyloprim] 300 mg PO HS Potassium Chloride 20 meq PO BID@0800,1700 Digoxin [Lanoxin] 125 mcg PO DAILY@0600 Magnesium Oxide 400 mg PO HS HYDROcodone/APAP 5-325MG [[place] 5-325] 1 tab PO Q6HR PRN 3 Days #12 tab PRN Reason: Pain Na Phos,M-B/Na Phos,Di-Ba [Fleet Adult] 133 ml RECTAL DAILY PRN PRN Reason: Constipation Liquacel 30 ml PO BID@0800,1700 Apixaban [Eliquis] 2.5 mg PO BID@0800,1700 lisinopriL [Zestril] 5 mg PO HS Magnesium Hydroxide [Milk of Magnesia Concentrate] 7,200 mg PO Q48H PRN PRN Reason: Constipation Sennosides [Senna] 8.6 mg PO BID@0800,2100 Albuterol Nebulized [Ventolin Nebulized] 2.5 mg INHALATION RT-QID PRN PRN Reason: Shortness Of Breath bisacodyL [Dulcolax] 10 mg RECTAL DAILY PRN PRN Reason: Constipation Furosemide [Lasix] 40 mg PO BID@0800,1700 Ferrous Sulfate [Iron (65 MG Elemental)] 325 mg PO BID@0800,2100 Acetaminophen Tab [Tylenol] 650 mg PO TID PRN PRN Reason: Pain guaiFENesin [guaiFENesin Oral Solution] 200 mg PO Q4H PRN PRN Reason: Cough [place] Packet 1 packet PO BID@1200,2000 Midodrine [ProAmatine] 10 mg PO AC-TID Simethicone [Simethicone Chew] 80 mg PO QID Discharge Medication List Isosorbide Mononitrate ER [Imdur] 30 mg PO HS 04/11/14 [History] Tamsulosin HCl [Flomax] 0.4 mg PO HS@21304/11/14 [History] allopurinoL [Zyloprim] 300 mg PO HS 03/03/16 [History] Potassium Chloride 20 meq PO BID@0800,1700 04/25/18 [History] Digoxin [Lanoxin] 125 mcg PO DAILY@0600 06/09/18 [History] Magnesium Oxide 400 mg PO HS 12/29/20 [History] Albuterol Nebulized [Ventolin Nebulized] 2.5 mg INHALATION RT-QID PRN 02/27/21 [History] HYDROcodone/APAP 5-325MG [[place] 5-325] 1 tab PO Q6HR PRN 3 Days #12 tab 03/17/21 [Rx] Ferrous Sulfate [Iron (65 MG Elemental)] 325 mg PO BID@0800,2100 03/20/21 [History] Furosemide [Lasix] 40 mg PO BID@0800,1700 03/20/21 [History] Liquacel 30 ml PO BID@0800,1700 03/20/21 [History] Na Phos,M-B/Na Phos,Di-Ba [Fleet Adult] 133 ml RECTAL DAILY PRN 03/20/21 [History] bisacodyL [Dulcolax] 10 mg RECTAL DAILY PRN 03/20/21 [History] Acetaminophen Tab [Tylenol] 650 mg PO TID PRN 08/16/21 [History] Apixaban [Eliquis] 2.5 mg PO BID@0800,1700 08/16/21 [History] Hola Packet 1 packet PO BID@1200,2000 08/16/21 [History] Magnesium Hydroxide [Milk of Magnesia Concentrate] 7,200 mg PO Q48H PRN 08/16/21 [History] Midodrine [ProAmatine] 10 mg PO AC-TID 08/16/21 [History] Sennosides [Senna] 8.6 mg PO BID@0800,2100 08/16/21 [History] Simethicone [Simethicone Chew] 80 mg PO QID 08/16/21 [History] guaiFENesin [guaiFENesin Oral Solution] 200 mg PO Q4H PRN 08/16/21 [History] lisinopriL [Zestril] 5 mg PO HS 08/16/21 [History] Metoprolol Tartrate [Lopressor] 50 mg PO BID #60 tab 08/18/21 [Rx] Follow up Appointment(s)/Referral(s): Wiliam Modi MD [Primary Care Provider] - 1-2 days Discharge Disposition: HOME SELF-CARE
[2021-08-18 08:13] VITALS: BP 150/88; PULSE 63; RESP 16; TEMP 97.6
[2021-08-18] MEDS: SIMETHICONE 80 MG CHEWABLE PO SCH (08:58)
[2021-08-18] MEDS: FUROSEMIDE 40 MG TAB PO SCH (08:58)
[2021-08-18] MEDS: FERROUS SULFATE 325 MG TAB PO SCH (08:58)
[2021-08-18] MEDS: POTASSIUM CHLORIDE ER 20 MEQ TAB.ER PO SCH ×2 (08:58→11:13)
[2021-08-18] MEDS: APIXABAN 5 MG TAB PO SCH (08:58)
[2021-08-18] MEDS: SENNOSIDES 8.6 MG TAB PO SCH (08:58)
[2021-08-18] MEDS: METOPROLOL TARTRATE 50 MG TAB PO SCH (08:59)
[2021-08-18] MEDS ORDERED: Potassium Replacement Protocol 1 EACH MISC MISCELLANE PRN (11:04)
--- NOTE | 2021-08-18 11:22 | P.PN ---
Subjective Progress Note Date: 08/18/21 HISTORY OF PRESENT ILLNESS: This is a 71-year-old male with a past medical history significant for mild cardiomyopathy, atrial fibrillation, hypertension, and chronic kidney disease. Patient follows in the office with Dr. Pendleton. We have been asked to see the patient in consultation for A. fib with RVR. Patient examined at the bedside. Patient presented to the hospital with a chief complaint of chest discomfort and chest palpitations. The patient was found to be in A. fib with RVR. Patient was started on IV Cardizem drip. Patient currently denies chest pain or pressure at the time of examination. He denies any shortness of breath. He remains in atrial fibrillation with mildly uncontrolled ventricular rate. He remains on IV Cardizem. * EKG reveals atrial fibrillation with RVR * Chest xray negative for acute process * Laboratory data: WBC 6.3. Hemoglobin 12.9. Platelet count 162. Sodium 136. Potassium 3.5. BUN 23. Creatinine 0.76. Troponin 0.042. 0.043. 0.048. * Current home cardiac medications include Eliquis 2.5 mg twice a day, digoxin 125 g daily, Lasix 40 mg twice a day, Imdur 30 mg at night, lisinopril 5 mg at night * Most recent echocardiogram obtained in December 2020 revealed ejection fraction 45-50%, trace to mild aortic regurgitation, mild mitral regurgitation, mild tricuspid regurgitation, and moderate pulmonary hypertension 08/18/2021 Patient examined this morning at the bedside. Patient denies chest pain or pressure. Denies SOB. Vital signs are stable. Telemetry reveals atrial fibrillation. Echocardiogram completed revealing EF 55-60%, mild aortic regurgitation, mild to moderate mitral regurgitation, and mild to moderate tricuspid regurgitation. PHYSICAL EXAM: VITAL SIGNS: Reviewed. GENERAL: Well-developed in no acute distress. HEENT: Head is normocephalic. Pupils are equal, round. Sclerae anicteric. Mucous membranes of the mouth are moist. Neck supple. No JVD or thyromegaly LUNGS: Respirations even and unlabored. Lungs essentially clear to auscultation bilaterally. HEART: Tachcardic. Irregular rate and rhythm. S1 and S2 heard. ABDOMEN: Soft. Nondistended. Nontender. EXTREMITIES: Normal range of motion. No clubbing or cyanosis. Peripheral pulses intact. No lower extremity edema NEUROLOGIC: Awake and alert. Oriented x 3. ASSESSMENT: Permanent atrial fibrillation with RVR Abnormal troponins, secondary to above, ACS ruled out History of mild nonischemic cardiomyopathy Hypertension Chronic kidney function Chronic diastolic congestive heart failure, EF 45-50% PLAN: Continue current cardiac medications Increase metoprolol to TID dosing Patient may be discharged home today from a cardiac standpoint Nurse practitioner note has been reviewed by physician. Signing provider agrees with the documented findings, assessment, and plan of care. Objective - Vital Signs Vital signs: Vital Signs Temp 97.6 F 08/18/21 08:00 Pulse 63 08/18/21 08:00 Resp 16 08/18/21 08:00 BP 150/88 08/18/21 08:00 Pulse Ox 95 08/18/21 08:00 Intake & Output 08/17/21 08/18/21 08/18/21 18:59 06:59 18:59 Intake Total 540 360 Balance 540 360 Intake: Oral 540 360 Other: Voiding Method Indwelling Catheter Diaper Diaper # Voids 4 1 2 - Labs CBC & Chem 7: 08/18/21 05:51 08/18/21 05:51 Labs: Abnormal Lab Results - Last 24 Hours (Table) 08/18/21 08/18/21 Range/Units 05:51 05:51 RBC 4.15 L (4.30-5.90) m/uL Hgb 12.0 L (13.0-17.5) gm/dL MCHC 30.4 L (31.0-37.0) g/dL RDW 16.3 H (11.5-15.5) % Potassium 3.2 L (3.5-5.1) mmol/L Carbon Dioxide 34 H (22-30) mmol/L BUN 24 H (9-20) mg/dL Glucose 194 H (74-99) mg/dL Alkaline Phosphatase 192 H (38-126) U/L Albumin 3.0 L (3.5-5.0) g/dL
[2021-08-18] MEDS ORDERED: POTASSIUM CHLORIDE ER 20 MEQ TAB.ER PO SCH (12:00)
[2021-08-18] MEDS ORDERED: METOPROLOL TARTRATE 50 MG TAB PO SCH (16:00)
== END 2021-08-18 11:20 | disposition home or self-care (01) | DRG 309 ==
LOC: EC 13:34 → 3SCARD 15:09
PROVIDERS: ADMIT Family Medicine; ATTEND Family Medicine
DX: I48.21 Permanent atrial fibrillation (principal); I13.0 Hypertensive heart and chronic kidney disease with heart failure and stage 1 through stage 4 chronic kidney disease, or unspecified chronic kidney disease; L03.115 Cellulitis of right lower limb; L03.116 Cellulitis of left lower limb; I50.32 Chronic diastolic (congestive) heart failure; I42.8 Other cardiomyopathies; Z20.822 Contact with and (suspected) exposure to COVID-19; E66.9 Obesity, unspecified; R07.9 Chest pain, unspecified; M10.9 Gout, unspecified; Z68.33 Body mass index [BMI] 33.0-33.9, adult; I73.9 Peripheral vascular disease, unspecified; I83.019 Varicose veins of right lower extremity with ulcer of unspecified site; I83.029 Varicose veins of left lower extremity with ulcer of unspecified site; I08.3 Combined rheumatic disorders of mitral, aortic and tricuspid valves; F41.9 Anxiety disorder, unspecified; M19.041 Primary osteoarthritis, right hand; J44.9 Chronic obstructive pulmonary disease, unspecified; M19.042 Primary osteoarthritis, left hand; N18.9 Chronic kidney disease, unspecified; N40.0 Benign prostatic hyperplasia without lower urinary tract symptoms; G47.33 Obstructive sleep apnea (adult) (pediatric); Z79.01 Long term (current) use of anticoagulants; Z79.899 Other long term (current) drug therapy; Z83.3 Family history of diabetes mellitus; Z87.01 Personal history of pneumonia (recurrent)
CPT/HCPCS: 36415; 71045; 80053; 80061; 83735; 84439; 84443; 84481; 84484; 85025; 85027; 85610; 85730; 87635; 93005; 93306; 96365; 99291

== ENCOUNTER 2021-11-04 17:45 | Emergency (ER) | payer MEDICARE, BC ==
[2021-11-04 18:14] LABS: Anisocytosis Slight; Basophils % (A) 0 %; Eosinophils # (A) 0.1 k/uL (0-0.7); Eosinophils % (A) 1 %; HCT 38.5 % (39.0-53.0); HGB 12.1 gm/dL (13.0-17.5); Hypochromasia Moderate; Lymphocytes % (A) 9 %; MCH 29.8 pg (25.0-35.0); MCHC 31.5 g/dL (31.0-37.0); MCV 94.6 fL (80.0-100.0); Mean Platelet Volume 8.4; Monocytes # (A) 0.5 k/uL (0-1.0); Monocytes % (A) 5 %; Neutrophils # (A) 8.6 k/uL (1.3-7.7); Neutrophils % (A) 83 %; Platelet Count 362 k/uL (150-450); Poikilocytosis Slight; RBC 4.07 m/uL (4.30-5.90); RDW 16.4 % (11.5-15.5); WBC 10.4 k/uL (3.8-10.6)
[2021-11-04 18:23] LABS: INR 1.1 (<1.2); Partial Thromboplastin Time 29.9 sec (22.0-30.0); Prothrombin Time 11.5 sec (9.0-12.0)
[2021-11-04 18:25] LABS: Albumin 3.2 g/dL (3.5-5.0); Calcium 8.5 mg/dL (8.4-10.2); Magnesium 1.8 mg/dL (1.6-2.3); Potassium 4.1 mmol/L (3.5-5.1); Total Bilirubin 1.1 mg/dL (0.2-1.3); Total Protein 6.8 g/dL (6.3-8.2)
--- NOTE | 2021-11-04 18:41 | CT ---
EXAMINATION TYPE: CT brain wo con DATE OF EXAM: 11/04/2021 COMPARISON: None HISTORY: Neuro deficit CT DLP: 1158.4 mGycm Automated exposure control for dose reduction was used. Images obtained of the brain without contrast. There is mild cerebral atrophy. There is no mass effect or midline shift. There is no sign of intracr anial hemorrhage. Calvarium is intact. The skull base is intact. There is normal aeration of the mast oid sinuses. IMPRESSION: Mild atrophy. No acute intracranial abnormality
--- NOTE | 2021-11-04 19:09 | XR ---
EXAMINATION TYPE: XR chest 2V DATE OF EXAM: 11/04/2021 COMPARISON: 08/16/2021 HISTORY: Dysrhythmia. Syncope TECHNIQUE: 2 views FINDINGS: Heart is normal. Lungs are clear of infiltrate. No heart failure. There are no hilar masses . Bony thorax is intact IMPRESSION: No active cardiopulmonary disease. No change.
[2021-11-04 19:20] VITALS: TEMP 98.8
--- NOTE | 2021-11-04 19:20 | ED ---
General Adult HPI - General Chief complaint: Neuro Symptoms/Deficit Stated complaint: Recheck Time Seen by Provider: 11/04/21 18:02 Source: patient, EMS, RN notes reviewed, old records reviewed Mode of arrival: EMS Limitations: no limitations - History of Present Illness Initial comments: 71-year-old male presenting from the residential for evaluation of altered level of consciousness. This was momentary and he has returned to baseline. The patient is nonambulatory at baseline with significant past medical history. He himself has no complaints. Is alert and oriented. No chest pain. No palpitations. No vomiting or diarrhea. According to paramedics this was a very brief episode, may have been syncopal in nature. - Related Data Home Medications Medication Instructions Recorded Confirmed Isosorbide Mononitrate ER [Imdur] 30 mg PO HS@209904/11/14 11/04/21 Tamsulosin HCl [Flomax] 0.4 mg PO HS@212904/11/14 11/04/21 allopurinoL [Zyloprim] 300 mg PO HS@209903/03/16 11/04/21 Potassium Chloride 20 meq PO BID@0800,1700 04/25/18 11/04/21 Digoxin [Lanoxin] 125 mcg PO DAILY@0600 06/09/18 11/04/21 Magnesium Oxide 400 mg PO HS@209912/29/20 11/04/21 Albuterol Nebulized [Ventolin 2.5 mg INHALATION RT-QID PRN 02/27/21 11/04/21 Nebulized] Ferrous Sulfate [Iron (65 MG 325 mg PO BID@0800,209903/20/21 11/04/21 Elemental)] Furosemide [Lasix] 40 mg PO BID@0800,1700 03/20/21 11/04/21 Liquacel 30 ml PO BID@0800,1700 03/20/21 11/04/21 Na Phos,M-B/Na Phos,Di-Ba [Fleet 133 ml RECTAL DAILY PRN 03/20/21 11/04/21 Adult] bisacodyL [Dulcolax] 10 mg RECTAL DAILY PRN 03/20/21 11/04/21 Acetaminophen Tab [Tylenol] 650 mg PO TID PRN 08/16/21 11/04/21 Apixaban [Eliquis] 2.5 mg PO BID@0800,1700 08/16/21 11/04/21 Hola Packet 1 packet PO BID@1200,199908/16/21 11/04/21 Magnesium Hydroxide [Milk of 7,200 mg PO Q48H PRN 08/16/21 11/04/21 Magnesia Concentrate] Midodrine [ProAmatine] 10 mg PO AC-TID 08/16/21 11/04/21 Simethicone [Simethicone Chew] 80 mg PO QID 08/16/21 11/04/21 guaiFENesin [guaiFENesin Oral 200 mg PO Q4H PRN 08/16/21 11/04/21 Solution] lisinopriL [Zestril] 5 mg PO HS@209908/16/21 11/04/21 INSULIN ASPART (NovoLOG) [NovoLOG See Protocol SQ BID@0700,1630 11/04/21 11/04/21 (formulary)] Metoprolol Tartrate [Lopressor] 50 mg PO TID@0800,1400,209911/04/21 11/04/21 Sennosides/Docusate Sodium [Senna 1 tab PO BID@0800,209911/04/21 11/04/21 Plus 8.6-50 mg Tablet] Previous Rx's Medication Instructions Recorded HYDROcodone/APAP 5-325MG [[place] 1 tab PO Q6HR PRN 3 Days #12 tab 03/17/21 5-325] Allergies Allergy/AdvReac Type Severity Reaction Status Date / Time No Known Allergies Allergy Verified 11/04/21 19:19 Review of Systems ROS Statement: Those systems with pertinent positive or pertinent negative responses have been documented in the HPI. ROS Other: All systems not noted in ROS Statement are negative. Past Medical History Past Medical History: Atrial Fibrillation, Heart Failure, COPD, Hypertension, Osteoarthritis (OA), Pneumonia, Prostate Disorder, Renal Disease, Sleep Apnea/CPAP/BIPAP, Vascular Disorder Additional Past Medical History / Comment(s): Nonischemic cardiomyopathy, cardiac valve disease, bronchitis, JIMMIE with Cpap and O2 at 2L at hs, past decreased renal function, arthritis bilateral hands/knees, gout bilateral feet, numbness bilateral legs/feet, carpal tunnel syndrome bilaterally, bilateral hand tremors, nonhealing bilateral lower leg wounds/cellulitis, varicosities, lower leg/pedal edema, PVD, BPH. History of Any Multi-Drug Resistant Organisms: MRSA Date of last positivie culture/infection: 08/30/12 MDRO Source:: LEG(not sure which) Past Surgical History: Heart Catheterization Additional Past Surgical History / Comment(s): Split thickness skin graft to L leg, bronchoscopy, cyst and partial jaw removed/has screws, oral surgery age 8- too many teeth. Past Anesthesia/Blood Transfusion Reactions: Previous Problems w/ Anesthesia Additional Past Anesthesia/Blood Transfusion Reaction / Comment(s): STATED DURING BRONCH STOPPED BREATHING, (brochoscopy done at [facility]-record on chart) Past Psychological History: Anxiety Smoking Status: Never smoker Past Alcohol Use History: None Reported Past Drug Use History: None Reported - Past Family History Father Family Medical History: Dementia, Eye Disorder Additional Family Medical History / Comment(s): MACULAR DEGENERATION Mother Family Medical History: Diabetes Mellitus, Eye Disorder, Vascular Disorder Additional Family Medical History / Comment(s): ANEURYSMS, CATARACTS. General Exam Limitations: no limitations General appearance: alert, in no apparent distress Head exam: Present: atraumatic, normocephalic Eye exam: Present: normal appearance, PERRL ENT exam: Present: normal exam, mucous membranes moist Neck exam: Present: normal inspection. Absent: tenderness, meningismus Respiratory exam: Present: normal lung sounds bilaterally. Absent: respiratory distress, wheezes Cardiovascular Exam: Present: regular rate, irregular rhythm GI/Abdominal exam: Present: soft. Absent: distended, tenderness, guarding Extremities exam: Present: normal capillary refill, pedal edema Neurological exam: Present: alert, oriented X3, CN II-XII intact. Absent: motor sensory deficit Psychiatric exam: Present: normal affect, normal mood Skin exam: Present: warm, dry, intact. Absent: cyanosis, diaphoretic Course Vital Signs 11/04/21 11/04/21 11/04/21 17:46 18:30 19:00 Temperature 98.8 F Pulse Rate 89 97 100 Respiratory 20 21 16 Rate Blood Pressure 142/88 115/70 89/58 O2 Sat by Pulse 91 L 95 93 L Oximetry 11/04/21 11/04/21 19:21 20:00 Temperature Pulse Rate 82 78 Respiratory 14 20 Rate Blood Pressure 93/62 97/56 O2 Sat by Pulse 93 L 93 L Oximetry EKG Findings - EKG Comments: EKG Findings:: EKG: Atrial fibrillation rate of 92 QRS duration 137, QTC 422 left axis, right bundle-branch block no ST segment elevation. Medical Decision Making - Medical Decision Making 71-year-old male with momentary episode of unresponsiveness, possible syncope. Patient is overall well-appearing, he has stable vitals. He has no complaints. He is alert and oriented. I did work this patient up including CT, chest x-ray, EKG, laboratory testing. Essentially his laboratories tests are stable. His EKG is atrial fibrillation without definitive signs of ischemia. Chest x-rays clear, head CT negative for any acute findings. I feel this patient is stable for discharge back to residential. If he should have recurrent events should return to the emergency department. - Lab Data Result diagrams: 11/04/21 18:05 11/04/21 18:05 Lab Results 11/04/21 11/04/21 11/04/21 Range/Units 18:02 18:05 18:05 WBC 10.4 (3.8-10.6) k/uL RBC 4.07 L (4.30-5.90) m/uL Hgb 12.1 L (13.0-17.5) gm/dL Hct 38.5 L (39.0-53.0) % MCV 94.6 (80.0-100.0) fL MCH 29.8 (25.0-35.0) pg MCHC 31.5 (31.0-37.0) g/dL RDW 16.4 H (11.5-15.5) % Plt Count 362 (150-450) k/uL MPV 8.4 Neutrophils % 83 % Lymphocytes % 9 % Monocytes % 5 % Eosinophils % 1 % Basophils % 0 % Neutrophils # 8.6 H (1.3-7.7) k/uL Lymphocytes # 1.0 (1.0-4.8) k/uL Monocytes # 0.5 (0-1.0) k/uL Eosinophils # 0.1 (0-0.7) k/uL Basophils # 0.0 (0-0.2) k/uL Hypochromasia Moderate Poikilocytosis Slight Anisocytosis Slight PT 11.5 (9.0-12.0) sec INR 1.1 (<1.2) APTT 29.9 (22.0-30.0) sec Sodium (137-145) mmol/L Potassium (3.5-5.1) mmol/L Chloride (98-107) mmol/L Carbon Dioxide (22-30) mmol/L Anion Gap mmol/L BUN (9-20) mg/dL Creatinine (0.66-1.25) mg/dL Est GFR (CKD-EPI)AfAm (>60 ml/min/1.73 sqM) Est GFR (CKD-EPI)NonAf (>60 ml/min/1.73 sqM) Glucose (74-99) mg/dL Calcium (8.4-10.2) mg/dL Magnesium (1.6-2.3) mg/dL Total Bilirubin (0.2-1.3) mg/dL AST (17-59) U/L ALT (4-49) U/L Alkaline Phosphatase (38-126) U/L Troponin I 0.027 (0.000-0.034) ng/mL Total Protein (6.3-8.2) g/dL Albumin (3.5-5.0) g/dL 11/04/21 Range/Units 18:05 WBC (3.8-10.6) k/uL RBC (4.30-5.90) m/uL Hgb (13.0-17.5) gm/dL Hct (39.0-53.0) % MCV (80.0-100.0) fL MCH (25.0-35.0) pg MCHC (31.0-37.0) g/dL RDW (11.5-15.5) % Plt Count (150-450) k/uL MPV Neutrophils % % Lymphocytes % % Monocytes % % Eosinophils % % Basophils % % Neutrophils # (1.3-7.7) k/uL Lymphocytes # (1.0-4.8) k/uL Monocytes # (0-1.0) k/uL Eosinophils # (0-0.7) k/uL Basophils # (0-0.2) k/uL Hypochromasia Poikilocytosis Anisocytosis PT (9.0-12.0) sec INR (<1.2) APTT (22.0-30.0) sec Sodium 136 L (137-145) mmol/L Potassium 4.1 (3.5-5.1) mmol/L Chloride 95 L (98-107) mmol/L Carbon Dioxide 33 H (22-30) mmol/L Anion Gap 8 mmol/L BUN 44 H (9-20) mg/dL Creatinine 1.21 (0.66-1.25) mg/dL Est GFR (CKD-EPI)AfAm 70 (>60 ml/min/1.73 sqM) Est GFR (CKD-EPI)NonAf 61 (>60 ml/min/1.73 sqM) Glucose 234 H (74-99) mg/dL Calcium 8.5 (8.4-10.2) mg/dL Magnesium 1.8 (1.6-2.3) mg/dL Total Bilirubin 1.1 (0.2-1.3) mg/dL AST 18 (17-59) U/L ALT 11 (4-49) U/L Alkaline Phosphatase 182 H (38-126) U/L Troponin I (0.000-0.034) ng/mL Total Protein 6.8 (6.3-8.2) g/dL Albumin 3.2 L (3.5-5.0) g/dL Disposition Clinical Impression: Syncope Disposition: HOME SELF-CARE Condition: Fair Instructions (If sedation given, give patient instructions): Syncope (ED) Is patient prescribed a controlled substance at d/c from ED?: No Referrals: Wiliam Modi MD [Primary Care Provider] - 1-2 days Time of Disposition: 20:52
[2021-11-04] MEDS ORDERED: SODIUM CHLORIDE 0.9% 500 ML 500 ML IV ONE (19:47)
[2021-11-04 21:41] VITALS: BP 98/72; PULSE 95; RESP 18
== END 2021-11-04 21:40 | disposition home or self-care (01) ==
LOC: EC 17:45
DX: R55 Syncope and collapse (principal); I11.0 Hypertensive heart disease with heart failure; I50.9 Heart failure, unspecified; I48.91 Unspecified atrial fibrillation; J44.9 Chronic obstructive pulmonary disease, unspecified; M10.9 Gout, unspecified; N40.0 Benign prostatic hyperplasia without lower urinary tract symptoms; M19.90 Unspecified osteoarthritis, unspecified site; F41.9 Anxiety disorder, unspecified; Z79.51 Long term (current) use of inhaled steroids; Z79.899 Other long term (current) drug therapy; Z79.01 Long term (current) use of anticoagulants
CPT/HCPCS: 36415; 70450; 71046; 80053; 83735; 84484; 85025; 85610; 85730; 93005; 99285

== ENCOUNTER 2022-11-13 18:43 | Emergency (ER) | payer MEDICARE, BC ==
[2022-11-13 18:55] VITALS: TEMP 97.4
[2022-11-13] MEDS ORDERED: SODIUM CHLORIDE 0.9% 500 ML 500 ML IV STA (19:14)
[2022-11-13] MEDS ORDERED: SODIUM CHLORIDE 0.9% 1,000 ML IV STA (19:14)
--- NOTE | 2022-11-13 19:33 | ED ---
Recheck HPI - General Chief Complaint: Recheck/Abnormal Lab/Rx Stated Complaint: Abnormal Labs Time Seen by Provider: 11/13/22 18:45 Source: EMS, RN notes reviewed, old records reviewed Mode of arrival: EMS Limitations: no limitations - History of Present Illness Initial Comments: This is a 72-year-old male to the emergency department for evaluation low hemoglobin. Patient had outpatient lab testing showing low hemoglobin himself has no complaints. Patient is here for lab drawn possible transfusion. History obtained from transferring chart MD Complaint: abnormal lab (Low hemoglobin) -: unknown Returns Today for: Called Because of Abnormal Lab/Test Symptoms Since Prior Visit: no new symptoms Context: called for abnormal lab result Associated Symptoms: none Treatments Prior to Arrival: other (0) - Related Data Home Medications Medication Instructions Recorded Confirmed Isosorbide Mononitrate ER [Imdur] 30 mg PO HS@209904/11/14 11/13/22 Tamsulosin HCl [Flomax] 0.4 mg PO HS@212904/11/14 11/13/22 allopurinoL [Zyloprim] 300 mg PO HS@209903/03/16 11/13/22 Potassium Chloride 20 meq PO DAILY@1700 04/25/18 11/13/22 Digoxin [Lanoxin] 125 mcg PO DAILY@0600 06/09/18 11/13/22 Magnesium Oxide 400 mg PO HS@209912/29/20 11/13/22 Albuterol Nebulized [Ventolin 2.5 mg INHALATION RT-QID PRN 02/27/21 11/13/22 Nebulized] Ferrous Sulfate [Iron (65 MG 325 mg PO BID@0800,1700 03/20/21 11/13/22 Elemental)] Furosemide [Lasix] 40 mg PO BID@0800,1700 03/20/21 11/13/22 Liquacel 30 ml PO BID@0800,1700 03/20/21 11/13/22 Na Phos,M-B/Na Phos,Di-Ba [Fleet 133 ml RECTAL DAILY PRN 03/20/21 11/13/22 Adult] bisacodyL [Dulcolax] 10 mg RECTAL DAILY PRN 03/20/21 11/13/22 Acetaminophen Tab [Tylenol] 650 mg PO TID PRN 08/16/21 11/13/22 Apixaban [Eliquis] 2.5 mg PO BID@0800,1700 08/16/21 11/13/22 Magnesium Hydroxide [Milk of 7,200 mg PO Q48H PRN 08/16/21 11/13/22 Magnesia Concentrate] Midodrine [ProAmatine] 10 mg PO AC-TID 08/16/21 11/13/22 guaiFENesin [guaiFENesin Oral 200 mg PO Q4H PRN 08/16/21 11/13/22 Solution] Sennosides/Docusate Sodium [Senna 1 tab PO BID@0800,2100 11/04/21 11/13/22 Plus 8.6-50 mg Tablet] HYDROcodone/APAP 7.5-325MG [[place] 1 tab PO Q6HR PRN 11/13/22 11/13/22 7.5-325] INSULIN LISPRO (HumaLOG) [humaLOG] See Protocol SQ BID@0800,1700 11/13/22 11/13/22 Loperamide HCl [Imodium A-D] 4 mg PO BID PRN 11/13/22 11/13/22 Metoprolol Tartrate [Lopressor] 100 mg PO BID@0800,1700 11/13/22 11/13/22 Multivitamins, Thera [Multivitamin 1 tab PO BID@0800,1700 11/13/22 11/13/22 (formulary)] Ondansetron [Zofran] 4 mg PO Q8HR PRN 11/13/22 11/13/22 Spironolactone [Aldactone] 25 mg PO DAILY@0800 11/13/22 11/13/22 amLODIPine [Norvasc] 5 mg PO HS@2100 11/13/22 11/13/22 Allergies Allergy/AdvReac Type Severity Reaction Status Date / Time No Known Allergies Allergy Verified 11/13/22 19:45 Review of Systems ROS Statement: Those systems with pertinent positive or pertinent negative responses have been documented in the HPI. ROS Other: All systems not noted in ROS Statement are negative. Past Medical History Past Medical History: Atrial Fibrillation, Heart Failure, COPD, Hypertension, Osteoarthritis (OA), Pneumonia, Prostate Disorder, Renal Disease, Sleep Apnea/CPAP/BIPAP, Vascular Disorder Additional Past Medical History / Comment(s): Nonischemic cardiomyopathy, cardiac valve disease, bronchitis, JIMMIE with Cpap and O2 at 2L at hs, past decreased renal function, arthritis bilateral hands/knees, gout bilateral feet, numbness bilateral legs/feet, carpal tunnel syndrome bilaterally, bilateral hand tremors, nonhealing bilateral lower leg wounds/cellulitis, varicosities, lower leg/pedal edema, PVD, BPH. History of Any Multi-Drug Resistant Organisms: MRSA Date of last positivie culture/infection: 12/23/21 MDRO Source:: Right Leg Past Surgical History: Heart Catheterization Additional Past Surgical History / Comment(s): Split thickness skin graft to L l eg, bronchoscopy, cyst and partial jaw removed/has screws, oral surgery age 8- too many teeth. Past Anesthesia/Blood Transfusion Reactions: Previous Problems w/ Anesthesia Additional Past Anesthesia/Blood Transfusion Reaction / Comment(s): STATED VIJAY GALEANO BRONCH STOPPED BREATHING, (brochoscopy done at [facility]-record on chart) Past Psychological History: Anxiety Smoking Status: Never smoker Past Alcohol Use History: None Reported Past Drug Use History: None Reported - Past Family History Father Family Medical History: Dementia, Eye Disorder Additional Family Medical History / Comment(s): MACULAR DEGENERATION Mother Family Medical History: Diabetes Mellitus, Eye Disorder, Vascular Disorder Additional Family Medical History / Comment(s): ANEURYSMS, CATARACTS. General Exam General appearance: alert, in no apparent distress Head exam: Present: atraumatic, normocephalic, normal inspection Eye exam: Present: normal appearance, PERRL, EOMI. Absent: scleral icterus, conjunctival injection, periorbital swelling ENT exam: Present: normal exam, mucous membranes moist Neck exam: Present: normal inspection. Absent: tenderness, meningismus, lymphadenopathy Respiratory exam: Present: normal lung sounds bilaterally. Absent: respiratory distress, wheezes, rales, rhonchi, stridor Cardiovascular Exam: Present: regular rate, normal rhythm, normal heart sounds. Absent: systolic murmur, diastolic murmur, rubs, gallop, clicks GI/Abdominal exam: Present: soft, normal bowel sounds. Absent: distended, tenderness, guarding, rebound, rigid Extremities exam: Present: normal inspection, full ROM, normal capillary refill. Absent: tenderness, pedal edema, joint swelling, calf tenderness Back exam: Present: normal inspection Neurological exam: Present: alert, oriented X3, CN II-XII intact Psychiatric exam: Present: normal affect, normal mood Skin exam: Present: warm, dry, intact, normal color. Absent: rash Course Vital Signs 11/13/22 11/13/22 18:49 21:11 Temperature 97.4 F L Pulse Rate 89 62 Respiratory 18 13 Rate Blood Pressure 114/70 113/70 O2 Sat by Pulse 100 100 Oximetry - Reevaluation(s) Reevaluation #1: 11/13/22 19:46 Medical records reviewed Reevaluation #2: 11/13/22 19:46 patient remains asymptomatic Reevaluation #3: 11/13/22 19:46 Answered questions, patient informed of results Reevaluation #4: 11/13/22 19:47 Was pt. sent in by a medical professional or institution? @ -This patient was sent by [facility] care facility Did you speak to anyone other than the patient for history? @ -no Did you review nursing and triage notes? @ -agree Were old charts reviewed? @ -Yes patient's prior hemoglobin less than 7 Differential Diagnosis? @ -prior EKG interpreted by me (3pts min.)? @ -yes X-rays interpreted by me (1pt min.)? @ -yes CT interpreted by me (1pt min.)? @ -no U/S interpreted by me (1pt. min.)? @ -no What testing was considered but not performed? (CT, X-rays, U/S, labs)? Why? @ -no What meds were considered but not given? Why? @ -no Did you discuss the management of the patient with other professionals? @ -no Did you reconcile home meds? @ -no Was smoking cessation discussed for >3mins.? @ -no Was critical care preformed (if so, how long)? @ -no Were there social determinants of health that impacted care today? How? (Homelessness, low income, unemployed, alcoholism, drug addiction, transportation, low edu. Level, literacy, decrease access to med. care, halfway, rehab)? @ -no Was there de-escalation of care discussed even if they declined? (Discuss DNR or withdrawal of care, Hospice)? @ -no What co-morbidities impacted this encounter? (DM, HTN, Smoking, COPD, CAD, Cancer, CVA, Hep., AIDS, mental health diagnosis, sleep apnea, morbid obesity)? @ -none Was patient admitted / discharged? @ -72 male to the emergency department for evaluation of anemia, anemia of chronic disease possible need for transfusion. Patient's hemoglobin above 7 a symptomatic and can be discharged home. Discharge Undiagnosed new problem with uncertain prognosis? @ -no Drug Therapy requiring intensive monitoring for toxicity (Heparin, Nitro, Ins ulin, Cardizem)? @ -no Were any procedures done? @ -no Diagnosis/symptom? @ -Anemia Acute, or Chronic, or Acute on Chronic? @ -Acute on chronic Uncomplicated (without systemic symptoms) or Complicated (systemic symptoms)? @ -complicated Side effects of treatment? @ -no Exacerbation, Progression, or Severe Exacerbation] @ -no Poses a threat to life or bodily function? @ -yes, he can from low hemoglobin Reevaluation #5: Differential Weakness: Hypoglycemia, shock, sepsis, hyponatremia, anemia, infection, HI, ETOH, adverse medicine reaction, overdose, stroke, this is not meant to be an all-inclusive list. Medical Decision Making - Medical Decision Making 72 male with chronic anemia acute on chronic anemia with anemia here in the emergency prior. Patient has hemoglobin not necessary for transfusion a symptomatic and can be discharged home - Lab Data Result diagrams: 11/13/22 19:37 11/13/22 19:37 Lab Results 11/13/22 11/13/22 11/13/22 Range/Units 19:37 19:37 19:37 WBC 3.4 L (3.8-10.6) k/uL RBC 2.63 L (4.30-5.90) m/uL Hgb 7.3 L (13.0-17.5) gm/dL Hct 23.8 L (39.0-53.0) % MCV 90.4 (80.0-100.0) fL MCH 27.9 (25.0-35.0) pg MCHC 30.8 L (31.0-37.0) g/dL RDW 16.7 H (11.5-15.5) % Plt Count 245 (150-450) k/uL MPV 8.3 Neutrophils % 67 % Lymphocytes % 22 % Monocytes % 7 % Eosinophils % 2 % Basophils % 0 % Neutrophils # 2.3 (1.3-7.7) k/uL Lymphocytes # 0.7 L (1.0-4.8) k/uL Monocytes # 0.2 (0-1.0) k/uL Eosinophils # 0.1 (0-0.7) k/uL Basophils # 0.0 (0-0.2) k/uL Hypochromasia Marked Poikilocytosis Slight Anisocytosis Slight PT 11.3 (9.0-12.0) sec INR 1.1 (<1.2) APTT 28.2 (22.0-30.0) sec Sodium 135 L (137-145) mmol/L Potassium 4.4 (3.5-5.1) mmol/L Chloride 100 (98-107) mmol/L Carbon Dioxide 27 (22-30) mmol/L Anion Gap 8 mmol/L BUN 20 (9-20) mg/dL Creatinine 0.88 (0.66-1.25) mg/dL Est GFR (CKD-EPI)AfAm >90 (>60 ml/min/1.73 sqM) Est GFR (CKD-EPI)NonAf 87 (>60 ml/min/1.73 sqM) Glucose 214 H (74-99) mg/dL Calcium 7.4 L (8.4-10.2) mg/dL Phosphorus 2.9 (2.5-4.5) mg/dL Magnesium 1.5 L (1.6-2.3) mg/dL Total Bilirubin 0.4 (0.2-1.3) mg/dL AST 45 (17-59) U/L ALT 24 (4-49) U/L Alkaline Phosphatase 196 H (38-126) U/L Troponin I (0.000-0.034) ng/mL Total Protein 5.2 L (6.3-8.2) g/dL Albumin 2.3 L (3.5-5.0) g/dL Blood Type Blood Type Recheck Bld Type Recheck Status Antibody Screen Spec Expiration Date 11/13/22 11/13/22 Range/Units 19:37 19:37 WBC (3.8-10.6) k/uL RBC (4.30-5.90) m/uL Hgb (13.0-17.5) gm/dL Hct (39.0-53.0) % MCV (80.0-100.0) fL MCH (25.0-35.0) pg MCHC (31.0-37.0) g/dL RDW (11.5-15.5) % Plt Count (150-450) k/uL MPV Neutrophils % % Lymphocytes % % Monocytes % % Eosinophils % % Basophils % % Neutrophils # (1.3-7.7) k/uL Lymphocytes # (1.0-4.8) k/uL Monocytes # (0-1.0) k/uL Eosinophils # (0-0.7) k/uL Basophils # (0-0.2) k/uL Hypochromasia Poikilocytosis Anisocytosis PT (9.0-12.0) sec INR (<1.2) APTT (22.0-30.0) sec Sodium (137-145) mmol/L Potassium (3.5-5.1) mmol/L Chloride (98-107) mmol/L Carbon Dioxide (22-30) mmol/L Anion Gap mmol/L BUN (9-20) mg/dL Creatinine (0.66-1.25) mg/dL Est GFR (CKD-EPI)AfAm (>60 ml/min/1.73 sqM) Est GFR (CKD-EPI)NonAf (>60 ml/min/1.73 sqM) Glucose (74-99) mg/dL Calcium (8.4-10.2) mg/dL Phosphorus (2.5-4.5) mg/dL Magnesium (1.6-2.3) mg/dL Total Bilirubin (0.2-1.3) mg/dL AST (17-59) U/L ALT (4-49) U/L Alkaline Phosphatase (38-126) U/L Troponin I <0.012 (0.000-0.034) ng/mL Total Protein (6.3-8.2) g/dL Albumin (3.5-5.0) g/dL Blood Type A Positive Blood Type Recheck A Pos Bld Type Recheck Status No Antibody Screen NEGATIVE Spec Expiration Date 11/16/20222336 Disposition Clinical Impression: Anemia Disposition: HOME SELF-CARE Condition: Good Instructions (If sedation given, give patient instructions): Anemia (ED) Is patient prescribed a controlled substance at d/c from ED?: No Referrals: Wiliam Modi MD [Primary Care Provider] - 1-2 days Time of Disposition: 21:05
[2022-11-13 20:01] LABS: INR 1.1 (<1.2); Partial Thromboplastin Time 28.2 sec (22.0-30.0); Prothrombin Time 11.3 sec (9.0-12.0)
[2022-11-13 20:05] LABS: ALT 24 U/L (4-49); AST 45 U/L (17-59); African American GFR (CKD) >90 (>60 ml/min/1.73 sqM); Albumin 2.3 g/dL (3.5-5.0); Alkaline Phosphatase 196 U/L (38-126); Anion Gap 8 mmol/L; Blood Urea Nitrogen 20 mg/dL (9-20); Calcium 7.4 mg/dL (8.4-10.2); Carbon Dioxide 27 mmol/L (22-30); Chloride 100 mmol/L (98-107); Glucose 214 mg/dL (74-99); Magnesium 1.5 mg/dL (1.6-2.3); Non-African American GFR(CKD) 87 (>60 ml/min/1.73 sqM); Phosphorus 2.9 mg/dL (2.5-4.5); Potassium 4.4 mmol/L (3.5-5.1); Sodium 135 mmol/L (137-145); Total Bilirubin 0.4 mg/dL (0.2-1.3); Total Protein 5.2 g/dL (6.3-8.2)
[2022-11-13 20:11] LABS: Anisocytosis Slight; Basophils % (A) 0 %; Eosinophils # (A) 0.1 k/uL (0-0.7); Eosinophils % (A) 2 %; HCT 23.8 % (39.0-53.0); HGB 7.3 gm/dL (13.0-17.5); Hypochromasia Marked; Lymphocytes # (A) 0.7 k/uL (1.0-4.8); Lymphocytes % (A) 22 %; MCH 27.9 pg (25.0-35.0); MCHC 30.8 g/dL (31.0-37.0); MCV 90.4 fL (80.0-100.0); Mean Platelet Volume 8.3; Monocytes # (A) 0.2 k/uL (0-1.0); Monocytes % (A) 7 %; Neutrophils # (A) 2.3 k/uL (1.3-7.7); Neutrophils % (A) 67 %; Platelet Count 245 k/uL (150-450); Poikilocytosis Slight; RBC 2.63 m/uL (4.30-5.90); RDW 16.7 % (11.5-15.5); WBC 3.4 k/uL (3.8-10.6)
[2022-11-13 21:15] VITALS: BP 113/70; PULSE 62; RESP 13
== END 2022-11-14 04:29 | disposition home or self-care (01) ==
LOC: EC 18:43
DX: D64.9 Anemia, unspecified (principal); I48.91 Unspecified atrial fibrillation; I11.0 Hypertensive heart disease with heart failure; I50.9 Heart failure, unspecified; M19.90 Unspecified osteoarthritis, unspecified site; G47.30 Sleep apnea, unspecified; J44.9 Chronic obstructive pulmonary disease, unspecified; F41.9 Anxiety disorder, unspecified; Z79.1 Long term (current) use of non-steroidal anti-inflammatories (NSAID); Z79.899 Other long term (current) drug therapy; Z79.01 Long term (current) use of anticoagulants
CPT/HCPCS: 36415; 80053; 83735; 84100; 84484; 85025; 85610; 85730; 86850; 86900; 86901; 96360; 96361; 99285

== ENCOUNTER 2023-02-25 12:33 | Inpatient (IN) | payer MEDICARE, BC ==
--- NOTE | 2023-02-25 13:10 | ED ---
General Adult HPI - General Chief complaint: Extremity Injury, Lower Stated complaint: leg wound Time Seen by Provider: 02/25/23 12:45 Source: patient, EMS, RN notes reviewed Mode of arrival: EMS Limitations: no limitations - History of Present Illness Initial comments: Patient is a pleasant 72-year-old male presenting to the emergency department with concern for bleeding. Patient believes this is from his left leg. Patient is from [facility] and nonambulatory. Patient is somewhat a poor historian. Patient believes this was from them doing dressing changes. - Related Data Home Medications Medication Instructions Recorded Confirmed Isosorbide Mononitrate ER [Imdur] 30 mg PO HS@209904/11/14 11/13/22 Tamsulosin HCl [Flomax] 0.4 mg PO HS@212904/11/14 11/13/22 allopurinoL [Zyloprim] 300 mg PO HS@209903/03/16 11/13/22 Potassium Chloride 20 meq PO DAILY@1700 04/25/18 11/13/22 Digoxin [Lanoxin] 125 mcg PO DAILY@0600 06/09/18 11/13/22 Magnesium Oxide 400 mg PO HS@209912/29/20 11/13/22 Albuterol Nebulized [Ventolin 2.5 mg INHALATION RT-QID PRN 02/27/21 11/13/22 Nebulized] Ferrous Sulfate [Iron (65 MG 325 mg PO BID@0800,1700 03/20/21 11/13/22 Elemental)] Furosemide [Lasix] 40 mg PO BID@0800,1700 03/20/21 11/13/22 Liquacel 30 ml PO BID@0800,1700 03/20/21 11/13/22 Na Phos,M-B/Na Phos,Di-Ba [Fleet 133 ml RECTAL DAILY PRN 03/20/21 11/13/22 Adult] bisacodyL [Dulcolax] 10 mg RECTAL DAILY PRN 03/20/21 11/13/22 Acetaminophen Tab [Tylenol] 650 mg PO TID PRN 08/16/21 11/13/22 Apixaban [Eliquis] 2.5 mg PO BID@0800,1700 08/16/21 11/13/22 Magnesium Hydroxide [Milk of 7,200 mg PO Q48H PRN 08/16/21 11/13/22 Magnesia Concentrate] Midodrine [ProAmatine] 10 mg PO AC-TID 08/16/21 11/13/22 guaiFENesin [guaiFENesin Oral 200 mg PO Q4H PRN 08/16/21 11/13/22 Solution] Sennosides/Docusate Sodium [[place] 1 tab PO BID@0800,2100 11/04/21 11/13/22 Plus 8.6-50 mg Tablet] HYDROcodone/APAP 7.5-325MG [[place] 1 tab PO Q6HR PRN 11/13/22 11/13/22 7.5-325] INSULIN LISPRO (HumaLOG) [humaLOG] See Protocol SQ BID@0800,1700 11/13/22 11/13/22 Loperamide HCl [Imodium A-D] 4 mg PO BID PRN 11/13/22 11/13/22 Metoprolol Tartrate [Lopressor] 100 mg PO BID@0800,1700 11/13/22 11/13/22 Multivitamins, Thera [Multivitamin 1 tab PO BID@0800,1700 11/13/22 11/13/22 (formulary)] Ondansetron [Zofran] 4 mg PO Q8HR PRN 11/13/22 11/13/22 Spironolactone [Aldactone] 25 mg PO DAILY@0800 11/13/22 11/13/22 amLODIPine [Norvasc] 5 mg PO HS@2100 11/13/22 11/13/22 Allergies Allergy/AdvReac Type Severity Reaction Status Date / Time No Known Allergies Allergy Verified 11/13/22 19:45 Review of Systems ROS Statement: Those systems with pertinent positive or pertinent negative responses have been documented in the HPI. ROS Other: All systems not noted in ROS Statement are negative. Constitutional: Denies: fever Eyes: Denies: eye pain ENT: Denies: ear pain Musculoskeletal: Reports: as per HPI (Tonic leg pain) Skin: Reports: as per HPI (Chronic leg wounds) Past Medical History Past Medical History: Atrial Fibrillation, Heart Failure, COPD, Hypertension, Osteoarthritis (OA), Pneumonia, Prostate Disorder, Renal Disease, Sleep Apnea/CPAP/BIPAP, Vascular Disorder Additional Past Medical History / Comment(s): Nonischemic cardiomyopathy, cardiac valve disease, bronchitis, JIMMIE with Cpap and O2 at 2L at hs, past decreased renal function, arthritis bilateral hands/knees, gout bilateral feet, numbness bilateral legs/feet, carpal tunnel syndrome bilaterally, bilateral hand tremors, nonhealing bilateral lower leg wounds/cellulitis, varicosities, lower leg/pedal edema, PVD, BPH. History of Any Multi-Drug Resistant Organisms: MRSA Date of last positivie culture/infection: 12/23/21 MDRO Source:: Right Leg Past Surgical History: Heart Catheterization Additional Past Surgical History / Comment(s): Split thickness skin graft to L leg, bronchoscopy, cyst and partial jaw removed/has screws, oral surgery age 8- too many teeth. Past Anesthesia/Blood Transfusion Reactions: Previous Problems w/ Anesthesia Additional Past Anesthesia/Blood Transfusion Reaction / Comment(s): STATED DURING BRONCH STOPPED BREATHING, (brochoscopy done at [facility]-record on chart) Past Psychological History: Anxiety Smoking Status: Never smoker Past Alcohol Use History: None Reported Past Drug Use History: None Reported - Past Family History Father Family Medical History: Dementia, Eye Disorder Additional Family Medical History / Comment(s): MACULAR DEGENERATION Mother Family Medical History: Diabetes Mellitus, Eye Disorder, Vascular Disorder Additional Family Medical History / Comment(s): ANEURYSMS, CATARACTS. General Exam Limitations: no limitations General appearance: alert, in no apparent distress Head exam: Present: normocephalic Eye exam: Present: normal appearance Neck exam: Present: normal inspection Respiratory exam: Present: normal lung sounds bilaterally Cardiovascular Exam: Present: regular rate, normal rhythm Expanded Peripheral pulses: 2+: Dorsalis Pedis (R), Dorsalis Pedis (L) GI/Abdominal exam: Present: soft. Absent: tenderness Extremities exam: Present: other (Bilateral lower legs wrapped). Absent: calf tenderness Neurological exam: Present: alert Psychiatric exam: Present: normal affect, normal mood Skin exam: Present: other (Bilateral lower legs with purplish discoloration from the knee to the ankles with some erythema and diffuse swelling and oozing of blood. Distally the extremity is neurovascularly intact. Skin color does improve the feet are good pedal pulses) Course Vital Signs 02/25/23 12:34 Temperature 98.2 F Pulse Rate 63 Respiratory 18 Rate Blood Pressure 128/79 O2 Sat by Pulse 98 Oximetry Medical Decision Making - Medical Decision Making Was pt. sent in by a medical professional or institution (, [facility], [facility], urgent care, hospital, or [facility]...) When possible be specific @ -Patient was sent from nursing facility Did you speak to anyone other than the patient for history (EMS, parent, family, police, friend...)? What history was obtained from this source @ -Transfer sheet reviewed Did you review nursing and triage notes (agree or disagree)? Why? @ -I reviewed and agree with nursing and triage notes Were old charts reviewed (outside hosp., previous admission, EMS record, old EKG, old radiological studies, urgent care reports/EKG's, [facility] records)? Report findings @ -Transfer sheet reviewed Differential Diagnosis (chest pain, altered mental status, abdominal pain women, abdominal pain men, vaginal bleeding, weakness, fever, dyspnea, syncope, headache, dizziness, GI bleed, back pain, seizure, CVA, palpatations, mental health, musculoskeletal)? @ -Differential Musculoskeletal Muscular strain, contusion, ligament sprain, fracture, arthritis, septic arthritis, bursitis, cellulitis, muscle spasm, nerve compression, DVT, arterial occlusion, herpes zoster, electrolyte abnormality, tumor.... This is not meant to be in all inclusive list EKG interpreted by me (3pts min.). @ -As above X-rays interpreted by me (1pt min.). @ -None done CT interpreted by me (1pt min.). @ -None done U/S interpreted by me (1pt. min.). @ -None done What testing was considered but not performed or refused? (CT, X-rays, U/S, labs)? Why? @ -None What meds were considered but not given or refused? Why? @ -None Did you discuss the management of the patient with other professionals (professionals i.e. [facility] Lizarraga, [facility], lab, RT, psych nurse, social sciences chair, funeral service practitioner/embalmer, teacher, helicopter officer, case advocate)? Give summary @ -Case was discussed with Dr. Bunn, who will admit covering for Dr. Muro Was smoking cessation discussed for >3mins.? @ -No Was critical care preformed (if so, how long)? @ -No Were there social determinants of health that impacted care today? How? (Homelessness, low income, unemployed, alcoholism, drug addiction, transportation, low edu. Level, literacy, decrease access to med. care, custodial, rehab)? @ -No Was there de-escalation of care discussed even if they declined (Discuss DNR or withdrawal of care, Hospice)? DNR status @ -No What co-morbidities impacted this encounter? (DM, HTN, Smoking, COPD, CAD, Cancer, CVA, ARF, Chemo, Hep., AIDS, mental health diagnosis, sleep apnea, morbid obesity)? @ -None Was patient admitted / discharged? Hospital course, mention meds given and route, prescriptions, significant lab abnormalities, going to OR and other pertinent info. @ -Patient has appearance of chronic venous stasis problems with legs with c oncern for overlying cellulitis. There is diffuse oozing/bleeding throughout. Patient will have consults with vascular and infectious disease. Undiagnosed new problem with uncertain prognosis? @ -No Drug Therapy requiring intensive monitoring for toxicity (Heparin, Nitro, Insulin, Cardizem)? @ -No Were any procedures done? @ -No Diagnosis/symptom? @ -Cellulitis bilateral lower legs Acute, or Chronic, or Acute on Chronic? @ -Acute Uncomplicated (without systemic symptoms) or Complicated (systemic symptoms)? @ -default Side effects of treatment? @ -No Exacerbation, Progression, or Severe Exacerbation? @ -No Poses a threat to life or bodily function? How? (Chest pain, USA, OR, pneumonia, PE, COPD, DKA, ARF, appy, cholecystitis, CVA, Diverticulitis, Homicidal, Suicidal, threat to staff... and all critical care pts) @ -No Disposition Clinical Impression: Bilateral lower leg cellulitis Disposition: ADMITTED IP TO THIS HOSP Is patient prescribed a controlled substance at d/c from ED?: No Referrals: Sean Muro MD [Primary Care Provider] - 1-2 days Time of Disposition: 14:58
[2023-02-25] MEDS ORDERED: NALOXONE 0.4 MG/ML 1 ML VIAL IV PRN (14:59)
[2023-02-25] MEDS ORDERED: ACETAMINOPHEN TAB 325 MG TAB PO PRN (15:04)
[2023-02-25] MEDS ORDERED: SODIUM CHLORIDE 0.9% 1,000 ML IV SCH (15:15)
[2023-02-25 15:20] LABS: Anisocytosis Slight; Basophils % (A) 0 %; Eosinophils # (A) 0.1 k/uL (0-0.7); Eosinophils % (A) 2 %; HCT 31.4 % (39.0-53.0); HGB 9.5 gm/dL (13.0-17.5); Hypochromasia Marked; Lymphocytes # (A) 0.8 k/uL (1.0-4.8); Lymphocytes % (A) 11 %; MCH 29.9 pg (25.0-35.0); MCHC 30.3 g/dL (31.0-37.0); MCV 98.6 fL (80.0-100.0); Macrocytosis Slight; Mean Platelet Volume 8.2; Monocytes # (A) 0.4 k/uL (0-1.0); Monocytes % (A) 5 %; Neutrophils # (A) 6.1 k/uL (1.3-7.7); Neutrophils % (A) 81 %; Platelet Count 243 k/uL (150-450); RBC 3.18 m/uL (4.30-5.90); RDW 16.5 % (11.5-15.5); WBC 7.5 k/uL (3.8-10.6)
[2023-02-25 15:23] LABS: Prothrombin Time 10.8 sec (9.0-12.0)
[2023-02-25 15:26] LABS: ALT 29 U/L (4-49); AST 55 U/L (17-59); African American GFR (CKD) 83 (>60 ml/min/1.73 sqM); Albumin 2.9 g/dL (3.5-5.0); Alkaline Phosphatase 228 U/L (38-126); Anion Gap 7 mmol/L; Blood Urea Nitrogen 31 mg/dL (9-20); Calcium 8.3 mg/dL (8.4-10.2); Carbon Dioxide 27 mmol/L (22-30); Chloride 99 mmol/L (98-107); Glucose 235 mg/dL (74-99); Non-African American GFR(CKD) 72 (>60 ml/min/1.73 sqM); Potassium 4.6 mmol/L (3.5-5.1); Sodium 133 mmol/L (137-145); Total Bilirubin 0.8 mg/dL (0.2-1.3); Total Protein 6.8 g/dL (6.3-8.2)
[2023-02-25] MEDS: MORPHINE SULFATE 4 MG/ML SYRINGE IV PRN ×2 (15:29→21:20)
--- NOTE | 2023-02-25 16:03 | P.GSCN ---
History of Present Illness Consult date: 02/25/23 Reason for Consult: bilateral leg wounds and bleeding History of present illness: 72 year old gentleman with history of Afib on anticoagulation, and chronic lower extremity wounds first seen in the wound care center with Dr. Cadet and now w ith Dr. Golden presents to the ER secondary to bleeding at the wound bed bilaterally after dressing change. Patient states having these wounds going on 2 years without healing. He was recently worked up for venous insufficiency and found to have mild reflux bilaterally in the above knee greater saphenous veins without any significant reflux in the deep system. He previously was instructed that he needed amputations but refused at that time and now recently had a lymphedema pumps treatment for the first time starting the last couple of weeks. He denies any fevers, chills, chest pain or shortness of breath. Review of Systems All systems: negative (what is mentioned in the PMH or HPI) Past Medical History Past Medical History: Atrial Fibrillation, Heart Failure, COPD, Hypertension, Osteoarthritis (OA), Pneumonia, Prostate Disorder, Renal Disease, Sleep Apnea/CPAP/BIPAP, Vascular Disorder Additional Past Medical History / Comment(s): Nonischemic cardiomyopathy, cardiac valve disease, bronchitis, JIMMIE with Cpap and O2 at 2L at hs, past decreased renal function, arthritis bilateral hands/knees, gout bilateral feet, numbness bilateral legs/feet, carpal tunnel syndrome bilaterally, bilateral hand tremors, nonhealing bilateral lower leg wounds/cellulitis, varicosities, lower leg/pedal edema, PVD, BPH. History of Any Multi-Drug Resistant Organisms: MRSA Year Discovered:: 12/23/21 MDRO Source:: Right Leg Past Surgical History: Heart Catheterization Additional Past Surgical History / Comment(s): Split thickness skin graft to L leg, bronchoscopy, cyst and partial jaw removed/has screws, oral surgery age 8- too many teeth. Past Anesthesia/Blood Transfusion Reactions: Previous Problems w/ Anesthesia Additional Past Anesthesia/Blood Transfusion Reaction / Comm: STATED DURING BRONCH STOPPED BREATHING, (brochoscopy done at [facility]-record on chart) Past Psychological History: Anxiety Smoking Status: Never smoker Past Alcohol Use History: None Reported Past Drug Use History: None Reported - Past Family History Father Family Medical History: Dementia, Eye Disorder Additional Family Medical History / Comment(s): MACULAR DEGENERATION Mother Family Medical History: Diabetes Mellitus, Eye Disorder, Vascular Disorder Additional Family Medical History / Comment(s): ANEURYSMS, CATARACTS. Medications and Allergies Home Medications Medication Instructions Recorded Confirmed Type Isosorbide Mononitrate ER [Imdur] 30 mg PO HS@209904/11/14 11/13/22 History Tamsulosin HCl [Flomax] 0.4 mg PO HS@2130 04/11/14 11/13/22 History allopurinoL [Zyloprim] 300 mg PO HS@209903/03/16 11/13/22 History Potassium Chloride 20 meq PO DAILY@1700 04/25/18 11/13/22 History Digoxin [Lanoxin] 125 mcg PO DAILY@0600 06/09/18 11/13/22 History Magnesium Oxide 400 mg PO HS@209912/29/20 11/13/22 History Albuterol Nebulized [Ventolin 2.5 mg INHALATION RT-QID PRN 02/27/21 11/13/22 History Nebulized] Ferrous Sulfate [Iron (65 MG 325 mg PO BID@0800,0 03/20/21 11/13/22 History Elemental)] Furosemide [Lasix] 40 mg PO BID@0800,1700 03/20/21 11/13/22 History Liquacel 30 ml PO BID@0800,1700 03/20/21 11/13/22 History Na Phos,M-B/Na Phos,Di-Ba [Fleet 133 ml RECTAL DAILY PRN 03/20/21 11/13/22 History Adult] bisacodyL [Dulcolax] 10 mg RECTAL DAILY PRN 03/20/21 11/13/22 History Acetaminophen Tab [Tylenol] 650 mg PO TID PRN 08/16/21 11/13/22 History Apixaban [Eliquis] 2.5 mg PO BID@0800,1700 08/16/21 11/13/22 History Magnesium Hydroxide [Milk of 7,200 mg PO Q48H PRN 08/16/21 11/13/22 History Magnesia Concentrate] Midodrine [ProAmatine] 10 mg PO AC-TID 08/16/21 11/13/22 History guaiFENesin [guaiFENesin Oral 200 mg PO Q4H PRN 08/16/21 11/13/22 History Solution] Sennosides/Docusate Sodium [Senna 1 tab PO BID@0800,2100 11/04/21 11/13/22 History Plus 8.6-50 mg Tablet] HYDROcodone/APAP 7.5-325MG [[place] 1 tab PO Q6HR PRN 11/13/22 11/13/22 History 7.5-325] INSULIN LISPRO (HumaLOG) [humaLOG] See Protocol SQ BID@0800,1700 11/13/22 11/13/22 History Loperamide HCl [Imodium A-D] 4 mg PO BID PRN 11/13/22 11/13/22 History Metoprolol Tartrate [Lopressor] 100 mg PO BID@0800,1700 11/13/22 11/13/22 History Multivitamins, Thera [Multivitamin 1 tab PO BID@0800,1700 11/13/22 11/13/22 History (formulary)] Ondansetron [Zofran] 4 mg PO Q8HR PRN 11/13/22 11/13/22 History Spironolactone [Aldactone] 25 mg PO DAILY@0800 11/13/22 11/13/22 History amLODIPine [Norvasc] 5 mg PO HS@2100 11/13/22 11/13/22 History Allergies Allergy/AdvReac Type Severity Reaction Status Date / Time No Known Allergies Allergy Verified 11/13/22 19:45 Surgical - Exam Vital Signs Temp Pulse Resp BP Pulse Ox 98.2 F 63 18 128/79 98 02/25/23 12:34 02/25/23 12:34 02/25/23 12:34 02/25/23 12:34 02/25/23 12:34 - General well developed, no distress, chronically ill, obese - Eyes PERRL, normal ocular movement - ENT normal pinna - Neck no masses - Respiratory normal expansion - Cardiovascular Rhythm: regular - Abdomen Abdomen: soft, non tender - Psychiatric oriented to time, oriented to person, speech is normal bilateral lower extremities with red, beefy, hypergranulation tissue circumferential with some bleeding. Palpable PT pulses bilaterally Muscle wasting below knees bilaterally. Results - Labs 02/25/23 14:57 02/25/23 14:57 Abnormal Lab Results - Last 24 Hours (Table) 02/25/23 02/25/23 02/25/23 Range/Units 14:57 14:57 14:57 RBC 3.18 L (4.30-5.90) m/uL Hgb 9.5 L (13.0-17.5) gm/dL Hct 31.4 L (39.0-53.0) % MCHC 30.3 L (31.0-37.0) g/dL RDW 16.5 H (11.5-15.5) % Lymphocytes # 0.8 L (1.0-4.8) k/uL Sodium 133 L (137-145) mmol/L BUN 31 H (9-20) mg/dL Glucose 235 H (74-99) mg/dL Plasma Lactic Acid Tavares 2.1 H* (0.7-2.0) mmol/L Calcium 8.3 L (8.4-10.2) mg/dL Alkaline Phosphatase 228 H (38-126) U/L Albumin 2.9 L (3.5-5.0) g/dL Diabetes panel 02/25/23 Range/Units 14:57 Sodium 133 L (137-145) mmol/L Potassium 4.6 (3.5-5.1) mmol/L Chloride 99 (98-107) mmol/L Carbon Dioxide 27 (22-30) mmol/L BUN 31 H (9-20) mg/dL Creatinine 1.05 (0.66-1.25) mg/dL Glucose 235 H (74-99) mg/dL Calcium 8.3 L (8.4-10.2) mg/dL AST 55 (17-59) U/L ALT 29 (4-49) U/L Alkaline Phosphatase 228 H (38-126) U/L Total Protein 6.8 (6.3-8.2) g/dL Albumin 2.9 L (3.5-5.0) g/dL Calcium panel 02/25/23 Range/Units 14:57 Calcium 8.3 L (8.4-10.2) mg/dL Albumin 2.9 L (3.5-5.0) g/dL Pituitary panel 02/25/23 Range/Units 14:57 Sodium 133 L (137-145) mmol/L Potassium 4.6 (3.5-5.1) mmol/L Chloride 99 (98-107) mmol/L Carbon Dioxide 27 (22-30) mmol/L BUN 31 H (9-20) mg/dL Creatinine 1.05 (0.66-1.25) mg/dL Glucose 235 H (74-99) mg/dL Calcium 8.3 L (8.4-10.2) mg/dL Adrenal panel 02/25/23 Range/Units 14:57 Sodium 133 L (137-145) mmol/L Potassium 4.6 (3.5-5.1) mmol/L Chloride 99 (98-107) mmol/L Carbon Dioxide 27 (22-30) mmol/L BUN 31 H (9-20) mg/dL Creatinine 1.05 (0.66-1.25) mg/dL Glucose 235 H (74-99) mg/dL Calcium 8.3 L (8.4-10.2) mg/dL Total Bilirubin 0.8 (0.2-1.3) mg/dL AST 55 (17-59) U/L ALT 29 (4-49) U/L Alkaline Phosphatase 228 H (38-126) U/L Total Protein 6.8 (6.3-8.2) g/dL Albumin 2.9 L (3.5-5.0) g/dL Assessment and Plan Assessment: Bilateral chronic lower extremity venous stasis wounds CEAP 6 Chronic venous insufficiency Chronic debility Morbid obesity CHF Afib Plan: Discussed with patients primary vascular surgeon who states wounds are stable. Continue local wound care and treatment with lymphedema pumps, compression and elevation. Discussed with the patient if no continued improvement after possible ablation then would recommend amputation. Thank you for the consultation.
[2023-02-25] MEDS: traMADol 50 MG TAB PO PRN (19:49)
[2023-02-25 20:30] LABS: Glucose,Whole Blood 202 mg/dL (70-110)
[2023-02-25] MEDS ORDERED: DEXTROSE 50% SYRINGE 50 ML IVP PRN ×2 (20:57)
[2023-02-25] MEDS: INSULIN ASPART (NovoLOG) 100 UNIT/ML VIAL SQ SCH (21:17)
[2023-02-25] MEDS: TAMSULOSIN 0.4 MG CAP.ER.24H PO SCH (21:18)
[2023-02-25] MEDS: SENNOSIDES-DOCUSATE SODIUM 1 EACH TAB PO SCH (21:18)
[2023-02-25] MEDS: ISOSORBIDE MONONITRATE ER 30 MG TAB.ER.24H PO SCH (21:18)
[2023-02-25] MEDS: MAGNESIUM OXIDE 400 MG TAB PO SCH (21:18)
[2023-02-25] MEDS: SPIRONOLACTONE 25 MG TAB PO SCH (21:18)
[2023-02-25] MEDS: allopurinoL 300 MG TAB PO SCH (21:20)
--- NOTE | 2023-02-25 21:36 | P.CONS ---
History of Present Illness - Reason for Consult Consult date: 02/25/23 - History of Present Illness Patient is a 72-year-old male with a past medical his significant for atrial fibrillation hypertension osteoarthritis pneumonia patient also have a bilateral lower extremity ulcers and cellulitis currently and alf resident patient has been sent to the ER concerning for bleeding from his lower extremity especially the left leg symptom has been going on for a day or 2 of patient complaining of increasing pain to the lower extremity describing it to be sharp 6-7 out of 10 had no radiation denies any foul-smelling drainage no chest pain shortness of breath cough no abdominal pain no diarrhea patient on presentation to hospital was afebrile and no fever; subsequently patient was not tachycardic hypotensive or hypoxic patient did have a normal white count 7.5 creatinine 1.05 lactic acid was mildly elevated liver enzymes are normal patient was started on cefazolin infectious disease was consulted for local wound care and cellulitis and need for antibiotic therapy Past Medical History Past Medical History: Atrial Fibrillation, Heart Failure, COPD, Hypertension, Osteoarthritis (OA), Pneumonia, Prostate Disorder, Renal Disease, Sleep Apnea/CPAP/BIPAP, Vascular Disorder Additional Past Medical History / Comment(s): Nonischemic cardiomyopathy, cardiac valve disease, bronchitis, JIMMIE with Cpap and O2 at 2L at hs, past decreased renal function, arthritis bilateral hands/knees, gout bilateral feet, numbness bilateral legs/feet, carpal tunnel syndrome bilaterally, bilateral hand tremors, nonhealing bilateral lower leg wounds/cellulitis, varicosities, lower leg/pedal edema, PVD, BPH. History of Any Multi-Drug Resistant Organisms: MRSA Year Discovered:: 12/23/21 MDRO Source:: Right Leg Past Surgical History: Heart Catheterization Additional Past Surgical History / Comment(s): Split thickness skin graft to L leg, bronchoscopy, cyst and partial jaw removed/has screws, oral surgery age 8- too many teeth. Past Anesthesia/Blood Transfusion Reactions: Previous Problems w/ Anesthesia Additional Past Anesthesia/Blood Transfusion Reaction / Comm: STATED DURING BRONCH STOPPED BREATHING, (brochoscopy done at [facility]-record on chart) Past Psychological History: Anxiety Smoking Status: Never smoker Past Alcohol Use History: None Reported Past Drug Use History: None Reported - Past Family History Father Family Medical History: Dementia, Eye Disorder Additional Family Medical History / Comment(s): MACULAR DEGENERATION Mother Family Medical History: Diabetes Mellitus, Eye Disorder, Vascular Disorder Additional Family Medical History / Comment(s): ANEURYSMS, CATARACTS. Medications and Allergies Home Medications Medication Instructions Recorded Confirmed Type Isosorbide Mononitrate ER [Imdur] 30 mg PO HS 04/11/14 02/25/23 History Tamsulosin HCl [Flomax] 0.4 mg PO HS@2130 04/11/14 02/25/23 History allopurinoL [Zyloprim] 300 mg PO HS 03/03/16 02/25/23 History Potassium Chloride 20 meq PO DAILY@1700 04/25/18 02/25/23 History Digoxin [Lanoxin] 125 mcg PO DAILY@0600 06/09/18 02/25/23 History Magnesium Oxide 400 mg PO HS 12/29/20 02/25/23 History Albuterol Nebulized [Ventolin 2.5 mg INHALATION RT-QID PRN 02/27/21 02/25/23 History Nebulized] Ferrous Sulfate [Iron (65 MG 325 mg PO BID@0800,1700 03/20/21 02/25/23 History Elemental)] Furosemide [Lasix] 40 mg PO DAILY@1700 03/20/21 02/25/23 History Liquacel 30 ml PO BID@0800,1700 03/20/21 02/25/23 History Na Phos,M-B/Na Phos,Di-Ba [Fleet 133 ml RECTAL DAILY PRN 03/20/21 02/25/23 History Adult] bisacodyL [Dulcolax] 10 mg RECTAL DAILY PRN 03/20/21 02/25/23 History Acetaminophen Tab [Tylenol] 650 mg PO TID PRN 08/16/21 02/25/23 History Apixaban [Eliquis] 2.5 mg PO BID@0800,1700 08/16/21 02/25/23 History Magnesium Hydroxide [Milk of 7,200 mg PO Q48H PRN 08/16/21 02/25/23 History Magnesia Concentrate] Midodrine [ProAmatine] 10 mg PO AC-TID 08/16/21 02/25/23 History guaiFENesin [guaiFENesin Oral 200 mg PO Q4H PRN 08/16/21 02/25/23 History Solution] Sennosides/Docusate Sodium [[place]enna 1 tab PO BID@0800,2100 11/04/21 02/25/23 H istory Plus 8.6-50 mg Tablet] HYDROcodone/APAP 7.5-325MG [[place] 1 tab PO Q6HR 11/13/22 02/25/23 History 7.5-325] INSULIN LISPRO (HumaLOG) [humaLOG] See Protocol SQ TID@0700,1100,1630 11/13/22 02/25/23 History Loperamide HCl [Imodium A-D] 4 mg PO BID PRN 11/13/22 02/25/23 History Metoprolol Tartrate [Lopressor] 100 mg PO BID@0800,1700 11/13/22 02/25/23 History Multivitamins, Thera [Multivitamin 1 tab PO BID@0800,1700 11/13/22 02/25/23 History (formulary)] Ondansetron [Zofran] 4 mg PO Q8HR PRN 11/13/22 02/25/23 History Spironolactone [Aldactone] 25 mg PO BID@0800,2100 11/13/22 02/25/23 History Furosemide [Lasix] 60 mg PO DAILY@0800 02/25/23 02/25/23 History Insulin Detemir (Levemir) [Levemir] 10 unit SQ HS 02/25/23 02/25/23 History Allergies Allergy/AdvReac Type Severity Reaction Status Date / Time No Known Allergies Allergy Verified 02/25/23 16:08 Physical Exam Vitals: Vital Signs Temp Pulse Resp BP Pulse Ox 02/25/23 15:21 97.6 F 90 20 112/78 100 02/25/23 12:34 98.2 F 63 18 128/79 98 Intake and Output 02/25/23 02/25/23 02/25/23 06:59 14:59 22:59 Other: Weight 95.254 kg Results CBC & Chem 7: 02/25/23 14:57 02/25/23 14:57 Labs: Abnormal Lab Results - Last 24 Hours (Table) 02/25/23 02/25/23 02/25/23 Range/Units 14:57 14:57 14:57 RBC 3.18 L (4.30-5.90) m/uL Hgb 9.5 L (13.0-17.5) gm/dL Hct 31.4 L (39.0-53.0) % MCHC 30.3 L (31.0-37.0) g/dL RDW 16.5 H (11.5-15.5) % Lymphocytes # 0.8 L (1.0-4.8) k/uL Sodium 133 L (137-145) mmol/L BUN 31 H (9-20) mg/dL Glucose 235 H (74-99) mg/dL Plasma Lactic Acid Tava[place] 2.1 H* (0.7-2.0) mmol/L Calcium 8.3 L (8.4-10.2) mg/dL Alkaline Phosphatase 228 H (38-126) U/L Albumin 2.9 L (3.5-5.0) g/dL Assessment and Plan Plan: 1-patient with bilateral lower extremity ulceration possibly venous stasis which has been chronic for the patient admitted to hospital with bleeding from wound And concern for possible cellulitis likely from gram-positive skin ammy 2-local wound care with a dry Aquacel silver dressing change every 48 hour followed by Kerlix 3-continue cefazolin 2 g every 8 hours We will follow on clinical condition and cultures to further adjust medication if needed Thank you for this consultation we will follow the patient along with you Dictation was produced using [employer] dictation software. please excuse any grammatical, word or spelling errors. Time with Patient: Greater than 30
[2023-02-26] MEDS: SODIUM CHLORIDE 0.9% 1,000 ML IV SCH ×3 (00:04→16:20)
[2023-02-26 07:14] LABS: Glucose,Whole Blood 193 mg/dL (70-110)
[2023-02-26] MEDS: INSULIN ASPART (NovoLOG) 100 UNIT/ML VIAL SQ SCH ×4 (08:31→21:03)
[2023-02-26] MEDS: SENNOSIDES-DOCUSATE SODIUM 1 EACH TAB PO SCH ×2 (08:32→21:03)
[2023-02-26] MEDS: SPIRONOLACTONE 25 MG TAB PO SCH ×3 (08:32→21:06)
[2023-02-26 08:45] LABS: Basophils # (A) 0.01 X 10*3/uL (0.00-0.10); Basophils % (A) 0.2 %; Eosinophils # (A) 0.12 X 10*3/uL (0.04-0.35); Eosinophils % (A) 2.5 %; HCT 27.1 % (39.6-50.0); HGB 7.9 d/dL (13.0-17.0); Lymphocytes # (A) 1.22 X 10*3/uL (0.90-5.00); Lymphocytes % (A) 24.9 %; MCH 29.4 pg (27.0-32.0); MCHC 29.2 d/dL (32.0-37.0); MCV 100.7 FL (80.0-97.0); Mean Platelet Volume 9.8 FL (9.5-12.2); Monocytes # (A) 0.77 X 10*3/uL (0.20-1.00); Monocytes % (A) 15.7 %; NRBC Per 100 WBC 0 X 10*3/uL (0.00-0.01); Neutrophils # (A) 2.73 X 10*3/uL (1.80-7.70); Neutrophils % (A) 55.9 %; Platelet Count 239 X 10*3/uL (140-440); RBC 2.69 X 10*6/uL (4.40-5.60); RDW 16.7 % (11.5-14.5); WBC 4.89 X 10*3/uL (4.50-10.00)
[2023-02-26 09:13] LABS: ALT 22 U/L (10-49); AST 36 U/L (14-35); Albumin 2.7 d/dL (3.8-4.9); Alkaline Phosphatase 189 U/L (41-126); BUN/Creat Ratio 23.25 Ratio (12.00-20.00); Blood Urea Nitrogen 27.9 mg/dL (9.0-27.0); Calcium 8.3 mg/dL (8.7-10.3); Chloride 101 mmol/L (96-109); Glucose 185 mg/dL (70-110); Sodium 136 mmol/L (135-145); Total Bilirubin 0.4 mg/dL (0.3-1.2); Total Protein 5.7 d/dL (6.2-8.2)
[2023-02-26] MEDS: MORPHINE SULFATE 4 MG/ML SYRINGE IV PRN (11:10)
[2023-02-26 11:48] LABS: Glucose,Whole Blood 267 mg/dL (70-110)
--- NOTE | 2023-02-26 12:35 | P.PN ---
Subjective Progress Note Date: 02/26/23 Patient seen and examined. No complaints or concerns Objective - Vital Signs Vital signs: Vital Signs Temp 98.3 F 02/26/23 07:15 Pulse 86 02/26/23 08:45 Resp 16 02/26/23 08:45 BP 99/65 02/26/23 07:15 Pulse Ox 95 02/26/23 07:15 FiO2 Intake & Output 02/25/23 02/26/23 02/26/23 18:59 06:59 18:59 Output Total 350 Balance -350 Weight 95.254 kg 95.254 kg Output: Urine 350 Other: Voiding Method External Catheter External Catheter - Exam No acute distress, obese, chronically ill-appearing Lower extremity dressings in place. Clean and dry. - Labs CBC & Chem 7: 02/26/23 06:17 02/26/23 06:17 Labs: Abnormal Lab Results - Last 24 Hours (Table) 02/25/23 02/25/23 02/25/23 Range/Units 14:57 14:57 14:57 RBC 3.18 L (4.30-5.90) m/uL Hgb 9.5 L (13.0-17.5) gm/dL Hct 31.4 L (39.0-53.0) % MCV (80.0-97.0) FL MCHC 30.3 L (31.0-37.0) g/dL RDW 16.5 H (11.5-15.5) % Lymphocytes # 0.8 L (1.0-4.8) k/uL Sodium 133 L (137-145) mmol/L BUN 31 H (9-20) mg/dL BUN/Creatinine Ratio (12.00-20.00) Ratio Glucose 235 H (74-99) mg/dL POC Glucose (mg/dL) (70-110) mg/dL Plasma Lactic Acid [place] 2.1 H* (0.7-2.0) mmol/L Calcium 8.3 L (8.4-10.2) mg/dL AST (14-35) U/L Alkaline Phosphatase 228 H (38-126) U/L Total Protein (6.2-8.2) d/dL Albumin 2.9 L (3.5-5.0) g/dL Albumin/Globulin Ratio (1.60-3.17) Ratio 02/25/23 02/25/23 02/26/23 Range/Units 19:43 20:29 06:17 RBC 2.69 L (4.30-5.90) m/uL Hgb 7.9 L (13.0-17.5) gm/dL Hct 27.1 L (39.0-53.0) % MCV 100.7 H (80.0-97.0) FL MCHC 29.2 L (31.0-37.0) g/dL RDW 16.7 H (11.5-15.5) % Lymphocytes # (1.0-4.8) k/uL Sodium (137-145) mmol/L BUN (9-20) mg/dL BUN/Creatinine Ratio (12.00-20.00) Ratio Glucose (74-99) mg/dL POC Glucose (mg/dL) 202 H (70-110) mg/dL Plasma Lactic Acid [place] 2.9 H* (0.7-2.0) mmol/L Calcium (8.4-10.2) mg/dL AST (14-35) U/L Alkaline Phosphatase (38-126) U/L Total Protein (6.2-8.2) d/dL Albumin (3.5-5.0) g/dL Albumin/Globulin Ratio (1.60-3.17) Ratio 02/26/23 02/26/23 02/26/23 Range/Units 06:17 07:13 11:47 RBC (4.30-5.90) m/uL Hgb (13.0-17.5) gm/dL Hct (39.0-53.0) % MCV (80.0-97.0) FL MCHC (31.0-37.0) g/dL RDW (11.5-15.5) % Lymphocytes # (1.0-4.8) k/uL Sodium (137-145) mmol/L BUN 27.9 H (9-20) mg/dL BUN/Creatinine Ratio 23.25 H (12.00-20.00) Ratio Glucose 185 H (74-99) mg/dL POC Glucose (mg/dL) 193 H 267 H (70-110) mg/dL Plasma Lactic Acid Tavares (0.7-2.0) mmol/L Calcium 8.3 L (8.4-10.2) mg/dL AST 36 H (14-35) U/L Alkaline Phosphatase 189 H (38-126) U/L Total Protein 5.7 L (6.2-8.2) d/dL Albumin 2.7 L (3.5-5.0) g/dL Albumin/Globulin Ratio 0.90 L (1.60-3.17) Ratio Assessment and Plan Assessment: Bilateral chronic lower extremity venous stasis wounds CEAP 6 Chronic venous insufficiency Chronic debility Morbid obesity CHF Afib Plan: Wounds remains stable. Continue conservative care with lymphatic pumps compression and elevation. Discussed outpatient interventions once more. Again discussed with the patient is overall goals and the possibility of amputation should this be something he wishes to undergo versus continued wound care and dressing changes. It is something he would like to continue to think about
[2023-02-26] MEDS: traMADol 50 MG TAB PO PRN (12:43)
[2023-02-26 17:09] LABS: Glucose,Whole Blood 246 mg/dL (70-110)
[2023-02-26 20:08] LABS: Glucose,Whole Blood 349 mg/dL (70-110)
[2023-02-26] MEDS: MAGNESIUM OXIDE 400 MG TAB PO SCH (21:02)
[2023-02-26] MEDS: ISOSORBIDE MONONITRATE ER 30 MG TAB.ER.24H PO SCH (21:03)
[2023-02-26] MEDS: allopurinoL 300 MG TAB PO SCH (21:03)
[2023-02-26] MEDS: TAMSULOSIN 0.4 MG CAP.ER.24H PO SCH (21:03)
--- NOTE | 2023-02-26 21:21 | P.PN ---
Subjective Progress Note Date: 02/26/23 Principal diagnosis: Bilateral leg wounds and cellulitis Patient is a 72-year-old male with a past medical his significant for atrial fibrillation hypertension osteoarthritis pneumonia patient also have a bilateral lower extremity ulcers and cellulitis currently and jail resident patient has been sent to the ER concerning for bleeding from his lower extremity especially the left leg, there was concern for possible cellulitis. On today's evaluation that is 02/26/2023, the patient denies having any fever or any chills, patient still complaining of pain to the lower extremity and did have some drainage no chest pain shortness of breath or cough no abdominal pain or diarrhea. Patient did have vital of 4.8 and creatinine is 1.2 blood cultures currently pending Objective - Vital Signs Vital signs: Vital Signs Temp 98.3 F 02/26/23 19:22 Pulse 92 02/26/23 19:22 Resp 18 02/26/23 19:22 BP 117/73 02/26/23 21:05 Pulse Ox 99 02/26/23 19:22 FiO2 Intake & Output 02/26/23 02/26/23 02/27/23 06:59 18:59 06:59 Output Total 350 500 Balance -350 -500 Weight 95.254 kg Output: Urine 350 500 Other: Voiding Method External Catheter External Catheter - Exam GENERAL DESCRIPTION: Elderly male lying in bed in no distress in no distress RESPIRATORY SYSTEM: Unlabored breathing , decreased breath sounds at bases HEART: S1 S2 regular rate and rhythm ,no loud murmurs ABDOMEN: Soft , no tenderness EXTREMITIES: Bilateral lower extremity with multiple ulceration no purulent drainage was noticed or any foul-smelling - Labs CBC & Chem 7: 02/26/23 06:17 02/26/23 06:17 Labs: Abnormal Lab Results - Last 24 Hours (Table) 02/26/23 02/26/23 02/26/23 Range/Units 06:17 06:17 07:13 RBC 2.69 L (4.40-5.60) X 10*6/uL Hgb 7.9 L (13.0-17.0) d/dL Hct 27.1 L (39.6-50.0) % MCV 100.7 H (80.0-97.0) FL MCHC 29.2 L (32.0-37.0) d/dL RDW 16.7 H (11.5-14.5) % BUN 27.9 H (9.0-27.0) mg/dL BUN/Creatinine Ratio 23.25 H (12.00-20.00) Ratio Glucose 185 H (70-110) mg/dL POC Glucose (mg/dL) 193 H (70-110) mg/dL Calcium 8.3 L (8.7-10.3) mg/dL AST 36 H (14-35) U/L Alkaline Phosphatase 189 H (41-126) U/L Total Protein 5.7 L (6.2-8.2) d/dL Albumin 2.7 L (3.8-4.9) d/dL Albumin/Globulin Ratio 0.90 L (1.60-3.17) Ratio 02/26/23 02/26/23 02/26/23 Range/Units 11:47 17:07 20:05 RBC (4.40-5.60) X 10*6/uL Hgb (13.0-17.0) d/dL Hct (39.6-50.0) % MCV (80.0-97.0) FL MCHC (32.0-37.0) d/dL RDW (11.5-14.5) % BUN (9.0-27.0) mg/dL BUN/Creatinine Ratio (12.00-20.00) Ratio Glucose (70-110) mg/dL POC Glucose (mg/dL) 267 H 246 H 349 H (70-110) mg/dL Calcium (8.7-10.3) mg/dL AST (14-35) U/L Alkaline Phosphatase (41-126) U/L Total Protein (6.2-8.2) d/dL Albumin (3.8-4.9) d/dL Albumin/Globulin Ratio (1.60-3.17) Ratio Microbiology - Last 24 Hours (Table) 02/25/23 15:06 Blood Culture - Preliminary Blood 02/25/23 06:54 Blood Culture - Preliminary Blood Assessment and Plan (1) Bilateral leg ulcer Current Visit: Yes Status: Acute Code(s): L97.919 - NON-PRS CHRONIC ULC UNSP PRT OF R LOW LEG W UNSP SEVERITY; L97.929 - NON-PRS CHRONIC ULC UNSP PRT OF L LOW LEG W UNSP SEVERITY SNOMED Code(s): 64150069 (2) Bilateral lower leg cellulitis Current Visit: Yes Status: Acute Code(s): L03.116 - CELLULITIS OF LEFT LOWER LIMB SNOMED Code(s): 336871423 Plan: 1-patient with bilateral lower extremity ulceration possibly venous stasis which has been chronic for the patient admitted to hospital with bleeding from wound And concern for possible cellulitis likely from gram-positive skin ammy 2-local wound care with a dry Aquacel silver dressing change every 48 hour followed by Kerlix 3-Pt to continue cefazolin 2 g every 8 hours, will benefit from a biopsy of these lesions as not very typical appearance of venous stasis ulcer , discussed with the vascular surgeon Dictation was produced using [employer] dictation software. please excuse any grammatical, word or spelling errors. Time with Patient: Less than 30
--- NOTE | 2023-02-26 23:53 | P.HPIM ---
History of Present Illness H&P Date: 02/25/23 Chief Complaint: Bleeding both lower extremities 72-year-old male with a past medical his significant for atrial fibrillation hypertension osteoarthritis pneumonia patient also have a bilateral lower extremity ulcers and cellulitis currently and shelter resident patient has been sent to the ER concerning for bleeding from his lower extremity especially the left leg symptom has been going on for a day or 2 of patient complaining of increasing pain to the lower extremity describing it to be sharp 6-7 out of 10 had no radiation denies any foul-smelling drainage no chest pain shortness of breath cough no abdominal pain no diarrhea patient on presentation to hospital was afebrile and no fever; subsequently patient was not tachycardic hypotensive or hypoxic patient did have a normal white count 7.5 creatinine 1.05 lactic acid was mildly elevated liver enzymes are normal patient was started on cefazolin Review of Systems REVIEW OF SYSTEMS: CONSTITUTIONAL: No fever, no malaise, no fatigue. HEENT: No recent visual problems or hearing problems. Denied any sore throat. CARDIOVASCULAR: No chest pain, orthopnea, PND, no palpitations, no syncope. PULMONARY: No shortness of breath, no cough, no hemoptysis. GASTROINTESTINAL: No diarrhea, no nausea, no vomiting, no abdominal pain. NEUROLOGICAL: No headaches, no weakness, no numbness. HEMATOLOGICAL: Denies any bleeding or petechiae. GENITOURINARY: Denies any burning micturition, frequency, or urgency. MUSCULOSKELETAL/RHEUMATOLOGICAL: Denies any joint pain, swelling, or any muscle pain. ENDOCRINE: Denies any polyuria or polydipsia. The rest of the 14-point review of systems is negative. Past Medical History Past Medical History: Atrial Fibrillation, Heart Failure, COPD, Hypertension, Osteoarthritis (OA), Pneumonia, Prostate Disorder, Renal Disease, Sleep Apnea/CPAP/BIPAP, Vascular Disorder Additional Past Medical History / Comment(s): Nonischemic cardiomyopathy, cardiac valve disease, bronchitis, JIMMIE with Cpap and O2 at 2L at hs, past decreased renal function, arthritis bilateral hands/knees, gout bilateral feet, numbness bilateral legs/feet, carpal tunnel syndrome bilaterally, bilateral hand tremors, nonhealing bilateral lower leg wounds/cellulitis, varicosities, lower leg/pedal edema, PVD, BPH. History of Any Multi-Drug Resistant Organisms: MRSA Date of last positivie culture/infection: 12/23/21 MDRO Source:: Right Leg Past Surgical History: Heart Catheterization Additional Past Surgical History / Comment(s): Split thickness skin graft to L leg, bronchoscopy, cyst and partial jaw removed/has screws, oral surgery age 8- too many teeth. Past Anesthesia/Blood Transfusion Reactions: Previous Problems w/ Anesthesia Additional Past Anesthesia/Blood Transfusion Reaction / Comment(s): STATED DURING BRONCH STOPPED BREATHING, (brochoscopy done at [facility]-record on chart) Past Psychological History: Anxiety Smoking Status: Never smoker Past Alcohol Use History: None Reported Past Drug Use History: None Reported - Past Family History Father Family Medical History: Dementia, Eye Disorder Additional Family Medical History / Comment(s): MACULAR DEGENERATION Mother Family Medical History: Diabetes Mellitus, Eye Disorder, Vascular Disorder Additional Family Medical History / Comment(s): ANEURYSMS, CATARACTS. Medications and Allergies Home Medications Medication Instructions Recorded Confirmed Type Isosorbide Mononitrate ER [Imdur] 30 mg PO HS 04/11/14 02/25/23 History Tamsulosin HCl [Flomax] 0.4 mg PO HS@2130 04/11/14 02/25/23 History allopurinoL [Zyloprim] 300 mg PO HS 03/03/16 02/25/23 History Potassium Chloride 20 meq PO DAILY@1700 04/25/18 02/25/23 History Digoxin [Lanoxin] 125 mcg PO DAILY@0600 06/09/18 02/25/23 History Magnesium Oxide 400 mg PO HS 12/29/20 02/25/23 History Albuterol Nebulized [Ventolin 2.5 mg INHALATION RT-QID PRN 02/27/21 02/25/23 History Nebulized] Ferrous Sulfate [Iron (65 MG 325 mg PO BID@0800,1700 03/20/21 02/25/23 History Elemental)] Furosemide [Lasix] 40 mg PO DAILY@1700 03/20/21 02/25/23 History Liquacel 30 ml PO BID@0800,169903/20/21 02/25/23 History Na Phos,M-B/Na Phos,Di-Ba [Fleet 133 ml RECTAL DAILY PRN 03/20/21 02/25/23 History Adult] bisacodyL [Dulcolax] 10 mg RECTAL DAILY PRN 03/20/21 02/25/23 History Acetaminophen Tab [Tylenol] 650 mg PO TID PRN 08/16/21 02/25/23 History Apixaban [Eliquis] 2.5 mg PO BID@0800,1700 08/16/21 02/25/23 History Magnesium Hydroxide [Milk of 7,200 mg PO Q48H PRN 08/16/21 02/25/23 History Magnesia Concentrate] Midodrine [ProAmatine] 10 mg PO AC-TID 08/16/21 02/25/23 History guaiFENesin [guaiFENesin Oral 200 mg PO Q4H PRN 08/16/21 02/25/23 History Solution] Sennosides/Docusate Sodium [Senna 1 tab PO BID@0800,2100 11/04/21 02/25/23 History Plus 8.6-50 mg Tablet] HYDROcodone/APAP 7.5-325MG [Paterson 1 tab PO Q6HR 11/13/22 02/25/23 History 7.5-325] INSULIN LISPRO (HumaLOG) [humaLOG] See Protocol SQ TID@0700,1100,1630 11/13/22 02/25/23 History Loperamide HCl [Imodium A-D] 4 mg PO BID PRN 11/13/22 02/25/23 History Metoprolol Tartrate [Lopressor] 100 mg PO BID@0800,1700 11/13/22 02/25/23 History Multivitamins, Thera [Multivitamin 1 tab PO BID@0800,1700 11/13/22 02/25/23 History (formulary)] Ondansetron [Zofran] 4 mg PO Q8HR PRN 11/13/22 02/25/23 History Spironolactone [Aldactone] 25 mg PO BID@0800,2100 11/13/22 02/25/23 History Furosemide [Lasix] 60 mg PO DAILY@0800 02/25/23 02/25/23 History Insulin Detemir (Levemir) [Levemir] 10 unit SQ HS 02/25/23 02/25/23 History Allergies Allergy/AdvReac Type Severity Reaction Status Date / Time No Known Allergies Allergy Verified 02/25/23 16:08 Physical Exam Vitals: Vital Signs Temp Pulse Resp BP Pulse Ox 02/25/23 12:34 98.2 F 63 18 128/79 98 Intake and Output 02/25/23 02/25/23 02/25/23 06:59 14:59 22:59 Other: Weight 95.254 kg General appearance: alert, in no apparent distress Head exam: Present: normocephalic Eye exam: Present: normal appearance Neck exam: Present: normal inspection Respiratory exam: Present: normal lung sounds bilaterally Cardiovascular Exam: Present: regular rate, normal rhythm Peripheral pulses: 2+: Dorsalis Pedis (R), Dorsalis Pedis (L) GI/Abdominal exam: Present: soft. Absent: tenderness Extremities exam: Present: other (Bilateral lower legs wrapped). Absent: calf tenderness Neurological exam: Present: alert Psychiatric exam: Present: normal affect, normal mood Skin exam: Present: other (Bilateral lower legs with purplish discoloration from the knee to the ankles with some erythema and diffuse swelling and oozing of blood. Distally the extremity is neurovascularly intact. Skin color does improve the feet are good pedal pulses Results CBC & Chem 7: 02/26/23 06:17 02/26/23 06:17 Labs: Abnormal Lab Results - Last 24 Hours (Table) 02/25/23 Range/Units 14:57 RBC 3.18 L (4.30-5.90) m/uL Hgb 9.5 L (13.0-17.5) gm/dL Hct 31.4 L (39.0-53.0) % MCHC 30.3 L (31.0-37.0) g/dL RDW 16.5 H (11.5-15.5) % Lymphocytes # 0.8 L (1.0-4.8) k/uL Assessment and Plan Assessment: 1. Bilateral lower extremity ulcers/cellulitis - Patient has venous stasis ulcers both lower extremities and has been placed on IV antibiotics in form of cefazolin 2 g every 8 hours; ID on board; further recommendations once culture results are available -- local wound care with a dry Aquacel silver dressing change every 48 hour followed by Mark 2. Bilateral chronic lower extremity venous stasis wounds Chronic venous insufficiency -- Continue local wound care and treatment with lymphedema pumps, compression and elevation. - Vascular surgery discussed with the patient if no continued improvement after possible ablation then would recommend amputation. 3. Atrial fibrillation; rate controlled on metoprolol; Ahlquist 2.5 mg twice a day 4. Congestive heart failure; Aldactone 25 mg daily, Lasix 40 mg twice a day 5. Hypertension; metoprolol 100 mg twice a day, amlodipine 5 mg daily, Aldactone 25 mg daily 6. COPD; not in exacerbation; continue with DVT prophylaxis; SCDs/systemic anticoagulation CODE STATUS; full code
--- NOTE | 2023-02-26 23:56 | P.PN ---
Subjective Progress Note Date: 02/26/23 72-year-old male with a past medical his significant for atrial fibrillation hypertension osteoarthritis pneumonia patient also have a bilateral lower extremity ulcers and cellulitis currently and longterm resident patient has been sent to the ER concerning for bleeding from his lower extremity especially the left leg symptom has been going on for a day or 2 of patient complaining of increasing pain to the lower extremity describing it to be sharp 6-7 out of 10 had no radiation denies any foul-smelling drainage no chest pain shortness of breath cough no abdominal pain no diarrhea patient on presentation to hospital was afebrile and no fever; subsequently patient was not tachycardic hypotensive or hypoxic patient did have a normal white count 7.5 creatinine 1.05 lactic acid was mildly elevated liver enzymes are normal patient was started on cefazolin Objective - Vital Signs Vital signs: Vital Signs Temp 97.9 F 02/26/23 13:15 Pulse 77 02/26/23 13:15 Resp 20 02/26/23 13:15 BP 135/75 02/26/23 13:15 Pulse Ox 97 02/26/23 13:15 FiO2 Intake & Output 02/25/23 02/26/23 02/26/23 18:59 06:59 18:59 Output Total 350 Balance -350 Weight 95.254 kg 95.254 kg Output: Urine 350 Other: Voiding Method External Catheter External Catheter - Exam Head exam: Present: normocephalic Eye exam: Present: normal appearance Neck exam: Present: normal inspection Respiratory exam: Present: normal lung sounds bilaterally Cardiovascular Exam: Present: regular rate, normal rhythm Peripheral pulses: 2+: Dorsalis Pedis (R), Dorsalis Pedis (L) GI/Abdominal exam: Present: soft. Absent: tenderness Extremities exam: Present: other (Bilateral lower legs wrapped). Absent: calf tenderness Neurological exam: Present: alert Psychiatric exam: Present: normal affect, normal mood Skin exam: Present: other (Bilateral lower legs with purplish discoloration from the knee to the ankles with some erythema and diffuse swelling and oozing of blood. Distally the extremity is neurovascularly intact. Skin color does improve the feet are good pedal pulses - Labs CBC & Chem 7: 02/26/23 06:17 02/26/23 06:17 Labs: Abnormal Lab Results - Last 24 Hours (Table) 09/07/1902/25/23 02/25/23 Range/Units 14:57 14:57 14:57 RBC 3.18 L (4.30-5.90) m/uL Hgb 9.5 L (13.0-17.5) gm/dL Hct 31.4 L (39.0-53.0) % MCV (80.0-97.0) FL MCHC 30.3 L (31.0-37.0) g/dL RDW 16.5 H (11.5-15.5) % Lymphocytes # 0.8 L (1.0-4.8) k/uL Sodium 133 L (137-145) mmol/L BUN 31 H (9-20) mg/dL BUN/Creatinine Ratio (12.00-20.00) Ratio Glucose 235 H (74-99) mg/dL POC Glucose (mg/dL) (70-110) mg/dL Plasma Lactic Acid Tavares 2.1 H* (0.7-2.0) mmol/L Calcium 8.3 L (8.4-10.2) mg/dL AST (14-35) U/L Alkaline Phosphatase 228 H (38-126) U/L Total Protein (6.2-8.2) d/dL Albumin 2.9 L (3.5-5.0) g/dL Albumin/Globulin Ratio (1.60-3.17) Ratio 02/25/23 02/25/23 02/26/23 Range/Units 19:43 20:29 06:17 RBC 2.69 L (4.30-5.90) m/uL Hgb 7.9 L (13.0-17.5) gm/dL Hct 27.1 L (39.0-53.0) % MCV 100.7 H (80.0-97.0) FL MCHC 29.2 L (31.0-37.0) g/dL RDW 16.7 H (11.5-15.5) % Lymphocytes # (1.0-4.8) k/uL Sodium (137-145) mmol/L BUN (9-20) mg/dL BUN/Creatinine Ratio (12.00-20.00) Ratio Glucose (74-99) mg/dL POC Glucose (mg/dL) 202 H (70-110) mg/dL Plasma Lactic Acid Tavares 2.9 H* (0.7-2.0) mmol/L Calcium (8.4-10.2) mg/dL AST (14-35) U/L Alkaline Phosphatase (38-126) U/L Total Protein (6.2-8.2) d/dL Albumin (3.5-5.0) g/dL Albumin/Globulin Ratio (1.60-3.17) Ratio 02/26/23 02/26/23 02/26/23 Range/Units 06:17 07:13 11:47 RBC (4.30-5.90) m/uL Hgb (13.0-17.5) gm/dL Hct (39.0-53.0) % MCV (80.0-97.0) FL MCHC (31.0-37.0) g/dL RDW (11.5-15.5) % Lymphocytes # (1.0-4.8) k/uL Sodium (137-145) mmol/L BUN 27.9 H (9-20) mg/dL BUN/Creatinine Ratio 23.25 H (12.00-20.00) Ratio Glucose 185 H (74-99) mg/dL POC Glucose (mg/dL) 193 H 267 H (70-110) mg/dL Plasma Lactic Acid Tavares (0.7-2.0) mmol/L Calcium 8.3 L (8.4-10.2) mg/dL AST 36 H (14-35) U/L Alkaline Phosphatase 189 H (38-126) U/L Total Protein 5.7 L (6.2-8.2) d/dL Albumin 2.7 L (3.5-5.0) g/dL Albumin/Globulin Ratio 0.90 L (1.60-3.17) Ratio Assessment and Plan Assessment: 1. Bilateral lower extremity ulcers/cellulitis - Patient has venous stasis ulcers both lower extremities and has been placed on IV antibiotics in form of cefazolin 2 g every 8 hours; ID on board; further recommendations once culture results are available -- local wound care with a dry Aquacel silver dressing change every 48 hour followed by Kerlix 2. Bilateral chronic lower extremity venous stasis wounds Chronic venous insufficiency -- Continue local wound care and treatment with lymphedema pumps, compression and elevation. - Vascular surgery discussed with the patient if no continued improvement after possible ablation then would recommend amputation. 3. Atrial fibrillation; rate controlled on metoprolol; Ahlquist 2.5 mg twice a day 4. Congestive heart failure; Aldactone 25 mg daily, Lasix 40 mg twice a day 5. Hypertension; metoprolol 100 mg twice a day, amlodipine 5 mg daily, Aldactone 25 mg daily 6. COPD; not in exacerbation; continue with DVT prophylaxis; SCDs/systemic anticoagulation CODE STATUS; full code
[2023-02-27] MEDS: SODIUM CHLORIDE 0.9% 1,000 ML IV SCH ×3 (05:19→17:58)
[2023-02-27 07:23] LABS: Glucose,Whole Blood 186 mg/dL (70-110)
[2023-02-27] MEDS: TAMSULOSIN 0.4 MG CAP.ER.24H PO SCH ×2 (07:34→21:06)
[2023-02-27] MEDS: INSULIN ASPART (NovoLOG) 100 UNIT/ML VIAL SQ SCH ×4 (09:04→21:05)
[2023-02-27] MEDS: SENNOSIDES-DOCUSATE SODIUM 1 EACH TAB PO SCH ×2 (09:05→21:06)
[2023-02-27] MEDS: SPIRONOLACTONE 25 MG TAB PO SCH ×2 (09:05→21:06)
[2023-02-27 12:10] LABS: Glucose,Whole Blood 293 mg/dL (70-110)
--- NOTE | 2023-02-27 16:01 | P.PN ---
Subjective Progress Note Date: 02/27/23 Principal diagnosis: Bilateral leg wounds and cellulitis Patient is a 72-year-old male with a past medical his significant for atrial fibrillation hypertension osteoarthritis pneumonia patient also have a bilateral lower extremity ulcers and cellulitis currently and skilled nursing resident patient has been sent to the ER concerning for bleeding from his lower extremity especially the left leg, there was concern for possible cellulitis. On today's evaluation that is 02/27/2023, the patient remains to be afebrile, patient denies any worsening pain to the lower extremity and did not have any drainage on the dressing that was changed yesterday, the patient denies chest pain shortness of breath or cough no abdominal pain or diarrhea. Patient did have white count of 4.8 and creatinine is 1.2 as of 02/26/2023 no blood work was done today blood cultures currently pending Objective - Vital Signs Vital signs: Vital Signs Temp 98.4 F 02/27/23 15:19 Pulse 64 02/27/23 15:19 Resp 18 02/27/23 15:19 BP 116/64 02/27/23 15:19 Pulse Ox 100 02/27/23 15:19 FiO2 Intake & Output 02/26/23 02/27/23 02/27/23 18:59 06:59 18:59 Output Total 500 500 Balance -500 -500 Output: Urine 500 500 Other: Voiding Method External Catheter External Catheter External Catheter - Exam GENERAL DESCRIPTION: Elderly male lying in bed in no distress in no distress RESPIRATORY SYSTEM: Unlabored breathing , decreased breath sounds at bases HEART: S1 S2 regular rate and rhythm ,no loud murmurs ABDOMEN: Soft , no tenderness EXTREMITIES: Bilateral lower extremity wounds are currently wrapped no drainage on the dressing - Labs CBC & Chem 7: 02/26/23 06:17 02/26/23 06:17 Labs: Abnormal Lab Results - Last 24 Hours (Table) 02/26/23 02/26/23 02/27/23 Range/Units 17:07 20:05 07:22 POC Glucose (mg/dL) 246 H 349 H 186 H (70-110) mg/dL 02/27/23 Range/Units 12:09 POC Glucose (mg/dL) 293 H (70-110) mg/dL Microbiology - Last 24 Hours (Table) 02/25/23 15:06 Blood Culture - Preliminary Blood 02/25/23 06:54 Blood Culture - Preliminary Blood Assessment and Plan (1) Bilateral leg ulcer Current Visit: Yes Status: Acute Code(s): L97.919 - NON-PRS CHRONIC ULC UNSP PRT OF R LOW LEG W UNSP SEVERITY; L97.929 - NON-PRS CHRONIC ULC UNSP PRT OF L LOW LEG W UNSP SEVERITY SNOMED Code(s): 71154395 (2) Bilateral lower leg cellulitis Current Visit: Yes Status: Acute Code(s): L03.116 - CELLULITIS OF LEFT LOWER LIMB SNOMED Code(s): 353645707 Plan: 1-patient with bilateral lower extremity ulceration possibly venous stasis which has been chronic for the patient admitted to hospital with bleeding from wound And concern for possible cellulitis likely from gram-positive skin ammy 2-local wound care with a dry Aquacel silver dressing change every 48 hour followed by Mark 3-patient did have some clinical improvement and will continue cefazolin 2 g every 8 hours, while inpatient Dictation was produced using [employer] dictation software. please excuse any grammatical, word or spelling errors. Time with Patient: Less than 30
[2023-02-27 17:20] LABS: Glucose,Whole Blood 299 mg/dL (70-110)
--- NOTE | 2023-02-27 18:26 | P.PN ---
Subjective Progress Note Date: 02/27/23 72-year-old male with a past medical his significant for atrial fibrillation hypertension osteoarthritis pneumonia patient also have a bilateral lower extremity ulcers and cellulitis currently and long term resident patient has been sent to the ER concerning for bleeding from his lower extremity especially the left leg symptom has been going on for a day or 2 of patient complaining of increasing pain to the lower extremity describing it to be sharp 6-7 out of 10 had no radiation denies any foul-smelling drainage no chest pain shortness of breath cough no abdominal pain no diarrhea patient on presentation to hospital was afebrile and no fever; subsequently patient was not tachycardic hypotensive or hypoxic patient did have a normal white count 7.5 creatinine 1.05 lactic acid was mildly elevated liver enzymes are normal patient was started on cefazolin 02/27/2023 patient is seen and evaluated in room at bedside; remains to be afebrile, patient denies any worsening pain to the lower extremity and did not have any drainage on the dressing that was changed yesterday, the patient denies chest pain shortness of breath or cough no abdominal pain or diarrhea. Patient did have white count of 4.8 and creatinine is 1.2 as of 02/26/2023 no blood work was done today blood cultures currently pending -patient with bilateral lower extremity ulceration possibly venous stasis which has been chronic for the patient admitted to hospital with bleeding from wound A nd concern for possible cellulitis likely from gram-positive skin ammy -local wound care with a dry Aquacel silver dressing change every 48 hour followed by Mark -patient did have some clinical improvement and will continue cefazolin 2 g every 8 hours, while inpatient Objective - Vital Signs Vital signs: Vital Signs Temp 98.3 F 02/27/23 07:23 Pulse 77 02/27/23 07:23 Resp 16 02/27/23 07:23 BP 120/78 02/27/23 07:23 Pulse Ox 100 02/27/23 07:23 FiO2 Intake & Output 02/26/23 02/27/23 02/27/23 18:59 06:59 18:59 Output Total 500 500 Balance -500 -500 Output: Urine 500 500 Other: Voiding Method External Catheter External Catheter External Catheter - Exam Head exam: Present: normocephalic Eye exam: Present: normal appearance Neck exam: Present: normal inspection Respiratory exam: Present: normal lung sounds bilaterally Cardiovascular Exam: Present: regular rate, normal rhythm Peripheral pulses: 2+: Dorsalis Pedis (R), Dorsalis Pedis (L) GI/Abdominal exam: Present: soft. Absent: tenderness Extremities exam: Present: other (Bilateral lower legs wrapped). Absent: calf tenderness Neurological exam: Present: alert Psychiatric exam: Present: normal affect, normal mood Skin exam: Present: other (Bilateral lower legs with purplish discoloration from the knee to the ankles with some erythema and diffuse swelling and oozing of blood. Distally the extremity is neurovascularly intact. Skin color does improve the feet are good pedal pulses - Labs CBC & Chem 7: 02/26/23 06:17 02/26/23 06:17 Labs: Abnormal Lab Results - Last 24 Hours (Table) 02/26/23 02/26/23 02/27/23 Range/Units 17:07 20:05 07:22 POC Glucose (mg/dL) 246 H 349 H 186 H (70-110) mg/dL 02/27/23 Range/Units 12:09 POC Glucose (mg/dL) 293 H (70-110) mg/dL Microbiology - Last 24 Hours (Table) 02/25/23 15:06 Blood Culture - Preliminary Blood 02/25/23 06:54 Blood Culture - Preliminary Blood Assessment and Plan Assessment: 1. Bilateral lower extremity ulcers/cellulitis - Patient has venous stasis ulcers both lower extremities and has been placed on IV antibiotics in form of cefazolin 2 g every 8 hours; ID on board; further recommendations once culture results are available -- local wound care with a dry Aquacel silver dressing change every 48 hour followed by Mark 2. Bilateral chronic lower extremity venous stasis wounds Chronic venous insufficiency -- Continue local wound care and treatment with lymphedema pumps, compression and elevation. - Vascular surgery discussed with the patient if no continued improvement after possible ablation then would recommend amputation. 3. Atrial fibrillation; rate controlled on metoprolol; Ahlquist 2.5 mg twice a day 4. Congestive heart failure; Aldactone 25 mg daily, Lasix 40 mg twice a day 5. Hypertension; metoprolol 100 mg twice a day, amlodipine 5 mg daily, Aldactone 25 mg daily 6. COPD; not in exacerbation; continue with DVT prophylaxis; SCDs/systemic anticoagulation CODE STATUS; full code
[2023-02-27 20:28] LABS: Glucose,Whole Blood 275 mg/dL (70-110)
[2023-02-27] MEDS: allopurinoL 300 MG TAB PO SCH (21:05)
[2023-02-27] MEDS: ISOSORBIDE MONONITRATE ER 30 MG TAB.ER.24H PO SCH (21:06)
[2023-02-27] MEDS: MAGNESIUM OXIDE 400 MG TAB PO SCH (21:06)
[2023-02-28 07:07] LABS: Glucose,Whole Blood 208 mg/dL (70-110)
[2023-02-28] MEDS: SPIRONOLACTONE 25 MG TAB PO SCH ×2 (07:41→21:15)
[2023-02-28] MEDS: SENNOSIDES-DOCUSATE SODIUM 1 EACH TAB PO SCH ×2 (07:41→21:15)
[2023-02-28] MEDS: INSULIN ASPART (NovoLOG) 100 UNIT/ML VIAL SQ SCH ×4 (07:42→21:15)
[2023-02-28] MEDS: SODIUM CHLORIDE 0.9% 1,000 ML IV SCH ×2 (07:42→21:16)
[2023-02-28 11:53] LABS: Glucose,Whole Blood 270 mg/dL (70-110)
[2023-02-28 17:13] LABS: Glucose,Whole Blood 243 mg/dL (70-110)
[2023-02-28] MEDS: traMADol 50 MG TAB PO PRN (18:09)
[2023-02-28] MEDS: MORPHINE SULFATE 4 MG/ML SYRINGE IV PRN (18:35)
[2023-02-28 20:48] LABS: Glucose,Whole Blood 224 mg/dL (70-110)
[2023-02-28] MEDS: TAMSULOSIN 0.4 MG CAP.ER.24H PO SCH (21:15)
[2023-02-28] MEDS: MAGNESIUM OXIDE 400 MG TAB PO SCH (21:15)
[2023-02-28] MEDS: allopurinoL 300 MG TAB PO SCH (21:15)
[2023-02-28] MEDS: ISOSORBIDE MONONITRATE ER 30 MG TAB.ER.24H PO SCH (21:15)
[2023-03-01] MEDS: SODIUM CHLORIDE 0.9% 1,000 ML IV SCH ×2 (04:55→17:55)
[2023-03-01 08:11] LABS: Glucose,Whole Blood 257 mg/dL (70-110)
--- NOTE | 2023-03-01 08:42 | P.PN ---
Subjective Progress Note Date: 03/01/23 Principal diagnosis: bilateral leg wounds patient seen and examined. Doing well. No overnight events. Denies any fevers, chills, chest pain or shortness of breath. Objective - Vital Signs Vital signs: Vital Signs Temp 98.2 F 03/01/23 01:22 Pulse 46 L 03/01/23 01:22 Resp 19 03/01/23 01:22 BP 98/63 03/01/23 01:22 Pulse Ox 99 03/01/23 01:22 FiO2 Intake & Output 02/28/23 03/01/23 03/01/23 18:59 06:59 18:59 Intake Total 120 Output Total 700 350 Balance -700 -230 Intake: Oral 120 Output: Urine 700 350 Other: Voiding Method External Catheter External Catheter # Bowel Movements 1 - Exam Bilateral lower extremities with circumferential wounds Extensive beefy red granulation tissue noted, extremely friable. No purulence. palpable PT pulses bilaterally Extensive muscle wasting and weakness below knee bilaterally - Constitutional General appearance: Present: morbidly obese, no acute distress - EENT Eyes: Present: PERRLA - Respiratory Respiratory: bilateral: CTA - Cardiovascular Rhythm: regular - Labs CBC & Chem 7: 02/26/23 06:17 02/26/23 06:17 Labs: Abnormal Lab Results - Last 24 Hours (Table) 02/28/23 02/28/23 02/28/23 Range/Units 11:52 17:12 20:46 POC Glucose (mg/dL) 270 H 243 H 224 H (70-110) mg/dL 03/01/23 Range/Units 08:11 POC Glucose (mg/dL) 257 H (70-110) mg/dL Microbiology - Last 24 Hours (Table) 02/25/23 15:06 Blood Culture - Preliminary Blood 02/25/23 06:54 Blood Culture - Preliminary Blood Assessment and Plan Assessment: Bilateral chronic lower extremity venous stasis wounds CEAP 6 Chronic venous insufficiency Chronic debility Morbid obesity CHF Afib Plan: Continue local wound care and treatment with lymphedema pumps, compression and elevation. Patient discussed with Dr. Golden possible options and will schedule venous ablation as outpatient to help with the wounds. If doesn't improve then will discuss amputations at a later time.
[2023-03-01] MEDS: SPIRONOLACTONE 25 MG TAB PO SCH ×2 (08:47→21:32)
[2023-03-01] MEDS: INSULIN ASPART (NovoLOG) 100 UNIT/ML VIAL SQ SCH ×4 (08:47→21:34)
[2023-03-01] MEDS: SENNOSIDES-DOCUSATE SODIUM 1 EACH TAB PO SCH ×2 (08:47→21:35)
[2023-03-01 08:48] LABS: Blood Urea Nitrogen 13.2 mg/dL (9.0-27.0); Calcium 8.1 mg/dL (8.7-10.3); Carbon Dioxide 23.9 mmol/L (21.6-31.8); Chloride 104 mmol/L (96-109); Glucose 151 mg/dL (70-110); Potassium 4.7 mmol/L (3.5-5.5); Sodium 136 mmol/L (135-145)
[2023-03-01 11:29] LABS: Basophils # (A) 0.01 X 10*3/uL (0.00-0.10); Basophils % (A) 0.3 %; Eosinophils # (A) 0.08 X 10*3/uL (0.04-0.35); Eosinophils % (A) 2.6 %; HCT 23.9 % (39.6-50.0); HGB 6.9 d/dL (13.0-17.0); Lymphocytes # (A) 1.09 X 10*3/uL (0.90-5.00); Lymphocytes % (A) 34.9 %; MCH 29.4 pg (27.0-32.0); MCHC 28.9 d/dL (32.0-37.0); MCV 101.7 FL (80.0-97.0); Mean Platelet Volume 9.9 FL (9.5-12.2); Monocytes # (A) 0.44 X 10*3/uL (0.20-1.00); Monocytes % (A) 14.1 %; NRBC Per 100 WBC 0 X 10*3/uL (0.00-0.01); Neutrophils # (A) 1.48 X 10*3/uL (1.80-7.70); Neutrophils % (A) 47.5 %; Platelet Count 196 X 10*3/uL (140-440); RBC 2.35 X 10*6/uL (4.40-5.60); RDW 15.9 % (11.5-14.5); WBC 3.12 X 10*3/uL (4.50-10.00)
[2023-03-01 12:18] LABS: Glucose,Whole Blood 229 mg/dL (70-110)
--- NOTE | 2023-03-01 16:30 | XR ---
EXAMINATION TYPE: XR chest 1V portable DATE OF EXAM: 03/01/2023 4:16 PM CLINICAL INDICATION:Male, 72 years old with history of chf; COMPARISON: Chest radiographs from 11/04/2021 TECHNIQUE: XR chest 1V portable Frontal view of the chest. FINDINGS: Lungs/Pleura: There is no evidence of pleural effusion, focal consolidation, or pneumothorax. Pulmonary vascularity: Pulmonary vascular congestion. Heart/mediastinum: Cardiomediastinal silhouette is enlarged and stable. Musculoskeletal: No acute osseous pathology. IMPRESSION: Cardiomegaly with mild pulmonary vascular congestion. Correlate with serum BNP.
[2023-03-01 17:23] LABS: Glucose,Whole Blood 207 mg/dL (70-110)
--- NOTE | 2023-03-01 20:01 | PN ---
PROGRESS NOTE DATE OF SERVICE: 03/01/2023 SUBJECTIVE: This 72-year-old gentleman, who was admitted with bilateral lower extremity cellulitis, also had anemia. Hemoglobin is 6. One unit of transfusion arranged. No chest pain. No palpitation. OBJECTIVE: VITAL SIGNS: Pulse is 99, blood pressure 124/81, respirations 18. CHEST: A few scattered rhonchi. ABDOMEN: Soft. NERVOUS SYSTEM: Nonfocal. LABORATORY DATA: Hemoglobin is 6. The rest of the labs are noted. ASSESSMENT: 1. Bilateral lower leg cellulitis. 2. Anemia, multifactorial. 3. Bilateral chronic lower extremity venous stasis wounds. 4. Atrial fibrillation. 5. Multiple medical issues. RECOMMENDATION: Continue current management and treatment. 1 unit of transfusion with Lasix. Repeat labs. I would recommend a portable chest x-ray also. Further recommendations to follow. See orders for details. MMODL / IJN: [id number] /
[2023-03-01 20:44] LABS: Glucose,Whole Blood 232 mg/dL (70-110)
[2023-03-01] MEDS: TAMSULOSIN 0.4 MG CAP.ER.24H PO SCH (21:32)
[2023-03-01] MEDS: traMADol 50 MG TAB PO PRN (21:32)
[2023-03-01] MEDS: allopurinoL 300 MG TAB PO SCH (21:32)
[2023-03-01] MEDS: MAGNESIUM OXIDE 400 MG TAB PO SCH (21:32)
[2023-03-01] MEDS: ISOSORBIDE MONONITRATE ER 30 MG TAB.ER.24H PO SCH (21:32)
--- NOTE | 2023-03-01 22:36 | P.PN ---
Subjective Progress Note Date: 02/28/23 Principal diagnosis: Bilateral leg wounds and cellulitis Patient is a 72-year-old male with a past medical his significant for atrial fibrillation hypertension osteoarthritis pneumonia patient also have a bilateral lower extremity ulcers and cellulitis currently and [facility] resident patient has been sent to the ER concerning for bleeding from his lower extremity especially the left leg, there was concern for possible cellulitis. On today's evaluation that is 02/28/2023, the patient remains to be afebrile, the patient is breathing comfortably on 2 L nasal cannula oxygen denies any chest pain shortness of breath or cough no abdominal pain any worsening pain to bilateral lower extremity. No labs were done today patient blood culture has been negative so far Objective - Vital Signs Vital signs: Vital Signs Temp 97.8 F 02/28/23 13:36 Pulse 127 H 02/28/23 13:36 Resp 16 02/28/23 13:36 BP 130/71 02/28/23 13:36 Pulse Ox 97 02/28/23 13:36 FiO2 Intake & Output 02/27/23 02/28/23 02/28/23 18:59 06:59 18:59 Output Total 850 1000 400 Balance -850 -1000 -400 Output: Urine 850 1000 400 Other: Voiding Method External Catheter External Catheter External Catheter # Bowel Movements 2 1 - Exam GENERAL DESCRIPTION: Elderly male lying in bed in no distress in no distress RESPIRATORY SYSTEM: Unlabored breathing , decreased breath sounds at bases HEART: S1 S2 regular rate and rhythm ,no loud murmurs ABDOMEN: Soft , no tenderness EXTREMITIES: Bilateral lower extremity wounds are currently wrapped no drainage on the dressing - Labs CBC & Chem 7: 03/01/23 05:29 03/01/23 05:29 Labs: Abnormal Lab Results - Last 24 Hours (Table) 02/27/23 02/28/23 02/28/23 Range/Units 20:26 07:06 11:52 POC Glucose (mg/dL) 275 H 208 H 270 H (70-110) mg/dL 02/28/23 Range/Units 17:12 POC Glucose (mg/dL) 243 H (70-110) mg/dL Microbiology - Last 24 Hours (Table) 02/25/23 15:06 Blood Culture - Preliminary Blood 02/25/23 06:54 Blood Culture - Preliminary Blood Assessment and Plan (1) Bilateral leg ulcer Current Visit: Yes Status: Acute Code(s): L97.919 - NON-PRS CHRONIC ULC UNSP PRT OF R LOW LEG W UNSP SEVERITY; L97.929 - NON-PRS CHRONIC ULC UNSP PRT OF L LOW LEG W UNSP SEVERITY SNOMED Code(s): 92846083 (2) Bilateral lower leg cellulitis Current Visit: Yes Status: Acute Code(s): L03.116 - CELLULITIS OF LEFT LOWER LIMB SNOMED Code(s): 758807082 Plan: 1-patient with bilateral lower extremity ulceration possibly venous stasis which has been chronic for the patient admitted to hospital with bleeding from wound And concern for possible cellulitis likely from gram-positive skin ammy 2-local wound care with a dry Aquacel silver dressing change every 48 hour followed by Mark 3patient did have clinical response to the current therapy and we will keep the patient on cefazolin while inpatient hopefully transition to oral antibiotics on discharge Dictation was produced using [employer] dictation software. please excuse any grammatical, word or spelling errors. Time with Patient: Less than 30
--- NOTE | 2023-03-01 22:37 | P.PN ---
Subjective Progress Note Date: 03/01/23 Principal diagnosis: Bilateral leg wounds and cellulitis Patient is a 72-year-old male with a past medical his significant for atrial fibrillation hypertension osteoarthritis pneumonia patient also have a bilateral lower extremity ulcers and cellulitis currently and senior care resident patient has been sent to the ER concerning for bleeding from his lower extremity especially the left leg, there was concern for possible cellulitis. On today's evaluation that is 03/01/2023, the patient remains to be afebrile the patient is breathing comfortably on 2 L nasal cannula oxygen patient denies having any chest pain shortness of breath or cough no nausea vomiting no abdo sebastian pain and denies pain to lower extremity overall drainage has decreased on the dressing. Patient did have hemoglobin of 6.9 with a worsening of 3.12 creatinine 0.8 cultures has been negative so far Objective - Vital Signs Vital signs: Vital Signs Temp 98.6 F 03/01/23 12:34 Pulse 99 03/01/23 12:34 Resp 18 03/01/23 12:34 BP 124/81 03/01/23 12:34 Pulse Ox 100 03/01/23 12:34 FiO2 Intake & Output 02/28/23 03/01/23 03/01/23 18:59 06:59 18:59 Intake Total 120 Output Total 700 350 Balance -700 -230 Intake: Oral 120 Output: Urine 700 350 Other: Voiding Method External Catheter External Catheter External Catheter # Bowel Movements 1 - Exam GENERAL DESCRIPTION: Elderly male lying in bed in no distress in no distress RESPIRATORY SYSTEM: Unlabored breathing , decreased breath sounds at bases HEART: S1 S2 regular rate and rhythm ,no loud murmurs ABDOMEN: Soft , no tenderness EXTREMITIES: Bilateral lower extremity wounds are currently wrapped no drainage on the dressing - Labs CBC & Chem 7: 03/01/23 05:29 03/01/23 05:29 Labs: Abnormal Lab Results - Last 24 Hours (Table) 02/28/23 02/28/23 03/01/23 Range/Units 17:12 20:46 05:29 WBC 3.12 L (4.50-10.00) X 10*3/uL RBC 2.35 L (4.40-5.60) X 10*6/uL Hgb 6.9 H* (13.0-17.0) d/dL Hct 23.9 L (39.6-50.0) % MCV 101.7 H (80.0-97.0) FL MCHC 28.9 L (32.0-37.0) d/dL RDW 15.9 H (11.5-14.5) % Neutrophils # 1.48 L (1.80-7.70) X 10*3/uL Glucose (70-110) mg/dL POC Glucose (mg/dL) 243 H 224 H (70-110) mg/dL Calcium (8.7-10.3) mg/dL 03/01/23 03/01/23 03/01/23 Range/Units 05:29 08:11 12:16 WBC (4.50-10.00) X 10*3/uL RBC (4.40-5.60) X 10*6/uL Hgb (13.0-17.0) d/dL Hct (39.6-50.0) % MCV (80.0-97.0) FL MCHC (32.0-37.0) d/dL RDW (11.5-14.5) % Neutrophils # (1.80-7.70) X 10*3/uL Glucose 151 H (70-110) mg/dL POC Glucose (mg/dL) 257 H 229 H (70-110) mg/dL Calcium 8.1 L (8.7-10.3) mg/dL Microbiology - Last 24 Hours (Table) 02/25/23 15:06 Blood Culture - Preliminary Blood 02/25/23 06:54 Blood Culture - Preliminary Blood Assessment and Plan (1) Bilateral leg ulcer Current Visit: Yes Status: Acute Code(s): L97.919 - NON-PRS CHRONIC ULC UNSP PRT OF R LOW LEG W UNSP SEVERITY; L97.929 - NON-PRS CHRONIC ULC UNSP PRT OF L LOW LEG W UNSP SEVERITY SNOMED Code(s): 66207871 (2) Bilateral lower leg cellulitis Current Visit: Yes Status: Acute Code(s): L03.116 - CELLULITIS OF LEFT LOWER LIMB SNOMED Code(s): 195874905 Plan: 1-patient with bilateral lower extremity ulceration possibly venous stasis which has been chronic for the patient admitted to hospital with bleeding from wound And concern for possible cellulitis likely from gram-positive skin ammy 2-local wound care with a dry Aquacel silver dressing change every 48 hour followed by Mark 3patient has shown clinical improvement as well as lower extremity wound and cellulitis is concerned we will keep the patient on cefazolin and transition to oral Keflex on discharge Dictation was produced using [employer] dictation software. please excuse any grammatical, word or spelling errors. Time with Patient: Less than 30
[2023-03-02] MEDS: SODIUM CHLORIDE 0.9% 1,000 ML IV SCH ×2 (05:04→21:16)
[2023-03-02 07:19] LABS: Glucose,Whole Blood 206 mg/dL (70-110)
[2023-03-02] MEDS: INSULIN ASPART (NovoLOG) 100 UNIT/ML VIAL SQ SCH ×4 (09:08→21:16)
[2023-03-02] MEDS: SPIRONOLACTONE 25 MG TAB PO SCH ×2 (09:08→21:16)
[2023-03-02 11:22] LABS: Basophils # (A) 0.01 X 10*3/uL (0.00-0.10); Basophils % (A) 0.3 %; Eosinophils # (A) 0.08 X 10*3/uL (0.04-0.35); Eosinophils % (A) 2.2 %; HCT 26.4 % (39.6-50.0); HGB 7.8 d/dL (13.0-17.0); Lymphocytes # (A) 0.72 X 10*3/uL (0.90-5.00); Lymphocytes % (A) 19.8 %; MCH 29.7 pg (27.0-32.0); MCHC 29.5 d/dL (32.0-37.0); MCV 100.4 FL (80.0-97.0); Mean Platelet Volume 9.8 FL (9.5-12.2); Monocytes # (A) 0.39 X 10*3/uL (0.20-1.00); Monocytes % (A) 10.7 %; NRBC Per 100 WBC 0 X 10*3/uL (0.00-0.01); Neutrophils # (A) 2.41 X 10*3/uL (1.80-7.70); Neutrophils % (A) 66.4 %; Platelet Count 195 X 10*3/uL (140-440); RBC 2.63 X 10*6/uL (4.40-5.60); RDW 15.4 % (11.5-14.5); WBC 3.63 X 10*3/uL (4.50-10.00)
[2023-03-02 11:31] LABS: Blood Urea Nitrogen 14.4 mg/dL (9.0-27.0); Calcium 8.3 mg/dL (8.7-10.3); Carbon Dioxide 25.9 mmol/L (21.6-31.8); Chloride 104 mmol/L (96-109); Glucose 160 mg/dL (70-110); Potassium 4.7 mmol/L (3.5-5.5); Sodium 136 mmol/L (135-145)
--- NOTE | 2023-03-02 12:10 | P.PN ---
Subjective Progress Note Date: 03/02/23 Principal diagnosis: Bilateral leg wounds Patient seen and examined today as a follow-up. No acute changes through the night. No new complaints today. Patient did have 2 bowel movements. Awaiting plans for discharge back to [facility]. Objective - Vital Signs Vital signs: Vital Signs Temp 98.6 F 03/02/23 01:37 Pulse 97 03/02/23 01:37 Resp 16 03/02/23 01:37 BP 113/63 03/02/23 01:37 Pulse Ox 99 03/02/23 01:37 FiO2 Intake & Output 03/01/23 03/02/23 03/02/23 18:59 06:59 18:59 Intake Total 310 Output Total 1100 Balance 310 -1100 Intake: Blood Product 310 Rc As-1 Unit 310 [id number] Output: Urine 1100 Other: Voiding Method External Catheter External Catheter # Voids 300 - Exam General appearance: The patient is alert, oriented, appears in no acute distress. HET: Head is normocephalic and atraumatic. Neck: Supple. Heart: Regular. Lungs: Equal expansion, normal respiratory effort. Abdomen: Soft, nondistended. Extremities: Bilateral lower extremities with circumferential wounds. Extensive beefy red granulation tissue noted, extremely friable. No purulence. Palpable PT pulses bilaterally Extensive muscle wasting and weakness below knee bilaterally Neurological: No focal deficits. - Labs CBC & Chem 7: 03/02/23 05:59 03/02/23 05:59 Labs: Abnormal Lab Results - Last 24 Hours (Table) 02/26/23 03/01/23 03/01/23 Range/Units 06:17 05:29 05:29 WBC 3.12 L (4.50-10.00) X 10*3/uL RBC 2.35 L (4.40-5.60) X 10*6/uL Hgb 6.9 H* (13.0-17.0) d/dL Hct 23.9 L (39.6-50.0) % MCV 101.7 H (80.0-97.0) FL MCHC 28.9 L (32.0-37.0) d/dL RDW 15.9 H (11.5-14.5) % Neutrophils # 1.48 L (1.80-7.70) X 10*3/uL Glucose 151 H (70-110) mg/dL POC Glucose (mg/dL) (70-110) mg/dL Hemoglobin A1c 6.2 H (<=6.0) % Calcium 8.1 L (8.7-10.3) mg/dL Crossmatch 03/01/23 03/01/23 03/01/23 Range/Units 12:16 12:27 17:22 WBC (4.50-10.00) X 10*3/uL RBC (4.40-5.60) X 10*6/uL Hgb (13.0-17.0) d/dL Hct (39.6-50.0) % MCV (80.0-97.0) FL MCHC (32.0-37.0) d/dL RDW (11.5-14.5) % Neutrophils # (1.80-7.70) X 10*3/uL Glucose (70-110) mg/dL POC Glucose (mg/dL) 229 H 207 H (70-110) mg/dL Hemoglobin A1c (<=6.0) % Calcium (8.7-10.3) mg/dL Crossmatch See Detail 03/01/23 03/02/23 Range/Units 20:43 07:18 WBC (4.50-10.00) X 10*3/uL RBC (4.40-5.60) X 10*6/uL Hgb (13.0-17.0) d/dL Hct (39.6-50.0) % MCV (80.0-97.0) FL MCHC (32.0-37.0) d/dL RDW (11.5-14.5) % Neutrophils # (1.80-7.70) X 10*3/uL Glucose (70-110) mg/dL POC Glucose (mg/dL) 232 H 206 H (70-110) mg/dL Hemoglobin A1c (<=6.0) % Calcium (8.7-10.3) mg/dL Crossmatch Assessment and Plan Assessment: Bilateral chronic lower extremity venous stasis wounds CEAP 6 Chronic venous insufficiency Chronic debility Morbid obesity CHF Afib Plan: Continue local wound care and treatment with lymphedema pumps, compression and elevation. Patient discussed with Dr. Golden possible options and will schedule venous ablation as outpatient to help with the wounds. If doesn't improve then will discuss amputations at a later time. Thank you for this consultation, patient is cleared for discharge from vascular surgery. The impression and plan of care has been dictated as directed. Dr. Golden I performed a history and examination of this patient, discussed the same with the dictator. I agree with the dictator's note ,documented as a scribe. Any additional findings or plans will be noted.
[2023-03-02 12:21] LABS: Glucose,Whole Blood 236 mg/dL (70-110)
--- NOTE | 2023-03-02 12:40 | P.PN ---
Subjective Progress Note Date: 03/02/23 Principal diagnosis: Bilateral leg wounds and cellulitis Patient is a 72-year-old male with a past medical his significant for atrial fibrillation hypertension osteoarthritis pneumonia patient also have a bilateral lower extremity ulcers and cellulitis currently and [facility] resident patient has been sent to the ER concerning for bleeding from his lower extremity especially the left leg, there was concern for possible cellulitis. On today's evaluation that is 03/02/2023, the patient continues to be afebrile the patient is breathing comfortably on 2 L nasal cannula oxygen , the patient denies having any chest pain shortness of breath or cough no nausea vomiting no abdominal pain and the patient denies pain to lower extremity overall drainage has decreased in intensity Patient did have hemoglobin of 7.8 with a white count of 3.63 creatinine 1.0 cultures has been negative so far Objective - Vital Signs Vital signs: Vital Signs Temp 97.8 F 03/02/23 07:17 Pulse 82 03/02/23 07:17 Resp 17 03/02/23 07:17 BP 120/85 03/02/23 07:17 Pulse Ox 98 03/02/23 07:17 FiO2 Intake & Output 03/01/23 03/02/23 03/02/23 18:59 06:59 18:59 Intake Total 310 Output Total 1100 Balance 310 -1100 Intake: Blood Product 310 Rc As-1 Unit 310 [id number] Output: Urine 1100 Other: Voiding Method External Catheter External Catheter External Catheter # Voids 300 2 - Exam GENERAL DESCRIPTION: Elderly male lying in bed in no distress in no distress RESPIRATORY SYSTEM: Unlabored breathing , decreased breath sounds at bases HEART: S1 S2 regular rate and rhythm ,no loud murmurs ABDOMEN: Soft , no tenderness EXTREMITIES: Bilateral lower extremity wounds are currently wrapped minimal drainage on the dressing - Labs CBC & Chem 7: 03/02/23 05:59 03/02/23 05:59 Labs: Abnormal Lab Results - Last 24 Hours (Table) 02/26/23 03/01/23 03/01/23 Range/Units 06:17 12:27 17:22 WBC (4.50-10.00) X 10*3/uL RBC (4.40-5.60) X 10*6/uL Hgb (13.0-17.0) d/dL Hct (39.6-50.0) % MCV (80.0-97.0) FL MCHC (32.0-37.0) d/dL RDW (11.5-14.5) % Lymphocytes # (0.90-5.00) X 10*3/uL Glucose (70-110) mg/dL POC Glucose (mg/dL) 207 H (70-110) mg/dL Hemoglobin A1c 6.2 H (<=6.0) % Calcium (8.7-10.3) mg/dL Crossmatch See Detail 03/01/23 03/02/23 03/02/23 Range/Units 20:43 05:59 05:59 WBC 3.63 L (4.50-10.00) X 10*3/uL RBC 2.63 L (4.40-5.60) X 10*6/uL Hgb 7.8 L (13.0-17.0) d/dL Hct 26.4 L (39.6-50.0) % MCV 100.4 H (80.0-97.0) FL MCHC 29.5 L (32.0-37.0) d/dL RDW 15.4 H (11.5-14.5) % Lymphocytes # 0.72 L (0.90-5.00) X 10*3/uL Glucose 160 H (70-110) mg/dL POC Glucose (mg/dL) 232 H (70-110) mg/dL Hemoglobin A1c (<=6.0) % Calcium 8.3 L (8.7-10.3) mg/dL Crossmatch 03/02/23 03/02/23 Range/Units 07:18 12:20 WBC (4.50-10.00) X 10*3/uL RBC (4.40-5.60) X 10*6/uL Hgb (13.0-17.0) d/dL Hct (39.6-50.0) % MCV (80.0-97.0) FL MCHC (32.0-37.0) d/dL RDW (11.5-14.5) % Lymphocytes # (0.90-5.00) X 10*3/uL Glucose (70-110) mg/dL POC Glucose (mg/dL) 206 H 236 H (70-110) mg/dL Hemoglobin A1c (<=6.0) % Calcium (8.7-10.3) mg/dL Crossmatch Assessment and Plan (1) Bilateral leg ulcer Current Visit: Yes Status: Acute Code(s): L97.919 - NON-PRS CHRONIC ULC UNSP PRT OF R LOW LEG W UNSP SEVERITY; L97.929 - NON-PRS CHRONIC ULC UNSP PRT OF L LOW LEG W UNSP SEVERITY SNOMED Code(s): 95187794 (2) Bilateral lower leg cellulitis Current Visit: Yes Status: Acute Code(s): L03.116 - CELLULITIS OF LEFT LOWER LIMB SNOMED Code(s): 378312493 Plan: 1-patient with bilateral lower extremity ulceration possibly venous stasis which has been chronic for the patient admitted to hospital with bleeding from wound And concern for possible cellulitis likely from gram-positive skin ammy 2-local wound care with a dry Aquacel silver dressing change every 48 hour followed by Kerlix 3patient has shown clinical improvement as well as lower extremity wound and cellulitis is concerned , plan is finish therapy short course of oral Keflex on discharge 7 days Dictation was produced using [employer] dictation software. please excuse any grammatical, word or spelling errors. Time with Patient: Less than 30
--- NOTE | 2023-03-02 18:04 | PN ---
PROGRESS NOTE DATE OF SERVICE: 03/02/2023 SUBJECTIVE: This is a 72-year-old gentleman, admitted with bilateral leg cellulitis. He also had anemia, which is multifactorial. No chest pain. No palpitation. Cultures are negative so far. OBJECTIVE: VITAL SIGNS: Pulse is 73, blood pressure 121/73, respirations 19. CHEST: Clear to auscultation. CARDIOVASCULAR: S1 and S2. ABDOMEN: Soft. LEGS: Cellulitis. LABORATORY DATA: Hemoglobin 7.8. ASSESSMENT: 1. Bilateral lower leg cellulitis. 2. Anemia, multifactorial. 3. Bilateral chronic lower extremity venous stasis wounds. 4. Atrial fibrillation. 5. Multiple medical issues. RECOMMENDATIONS: Recommend to continue current medications. Continue symptomatic treatment. Otherwise, continue the antibiotics. Repeat labs. Monitor hemoglobin closely. Prognosis is guarded. Further recommendations to follow. MMODL / IJN: [id number] /
[2023-03-02 18:05] LABS: Glucose,Whole Blood 247 mg/dL (70-110)
[2023-03-02 20:05] LABS: Glucose,Whole Blood 280 mg/dL (70-110)
[2023-03-02] MEDS: TAMSULOSIN 0.4 MG CAP.ER.24H PO SCH (21:16)
[2023-03-02] MEDS: MAGNESIUM OXIDE 400 MG TAB PO SCH (21:16)
[2023-03-02] MEDS: allopurinoL 300 MG TAB PO SCH (21:16)
[2023-03-02] MEDS: SENNOSIDES-DOCUSATE SODIUM 1 EACH TAB PO SCH (21:16)
[2023-03-02] MEDS: ISOSORBIDE MONONITRATE ER 30 MG TAB.ER.24H PO SCH (21:16)
--- NOTE | 2023-03-02 22:35 | P.PN ---
Subjective Progress Note Date: 02/28/23 72-year-old male with a past medical his significant for atrial fibrillation hypertension osteoarthritis pneumonia patient also have a bilateral lower extremity ulcers and cellulitis currently and half-way resident patient has been sent to the ER concerning for bleeding from his lower extremity especially the left leg symptom has been going on for a day or 2 of patient complaining of increasing pain to the lower extremity describing it to be sharp 6-7 out of 10 had no radiation denies any foul-smelling drainage no chest pain shortness of breath cough no abdominal pain no diarrhea patient on presentation to hospital was afebrile and no fever; subsequently patient was not tachycardic hypotensive or hypoxic patient did have a normal white count 7.5 creatinine 1.05 lactic acid was mildly elevated liver enzymes are normal patient was started on cefazolin 02/27/2023 patient is seen and evaluated in room at bedside; remains to be afebrile, patient denies any worsening pain to the lower extremity and did not have any drainage on the dressing that was changed yesterday, the patient denies chest pain shortness of breath or cough no abdominal pain or diarrhea. Patient did have white count of 4.8 and creatinine is 1.2 as of 02/26/2023 no blood work was done today blood cultures currently pending -patient with bilateral lower extremity ulceration possibly venous stasis which has been chronic for the patient admitted to hospital with bleeding from wound A nd concern for possible cellulitis likely from gram-positive skin ammy -local wound care with a dry Aquacel silver dressing change every 48 hour followed by Mark -patient did have some clinical improvement and will continue cefazolin 2 g every 8 hours, while inpatient 02/28/2023 the patient remains to be afebrile, the patient is breathing comfortably on 2 L nasal cannula oxygen denies any chest pain shortness of breath or cough no abdominal pain any worsening pain to bilateral lower extremity. --blood culture has been negative so far -patient with bilateral lower extremity ulceration possibly venous stasis which has been chronic for the patient admitted to hospital with bleeding from wound And concern for possible cellulitis likely from gram-positive skin ammy -local wound care with a dry Aquacel silver dressing change every 48 hour followed by Mark patient did have clinical response to the current therapy and we will keep the patient on cefazolin while inpatient hopefully transition to oral antibiotics on discharge Objective - Vital Signs Vital signs: Vital Signs Temp 97.8 F 02/28/23 13:36 Pulse 127 H 02/28/23 13:36 Resp 16 02/28/23 13:36 BP 130/71 02/28/23 13:36 Pulse Ox 97 02/28/23 13:36 FiO2 Intake & Output 02/27/23 02/28/23 02/28/23 18:59 06:59 18:59 Output Total 850 1000 400 Balance -850 -1000 -400 Output: Urine 850 1000 400 Other: Voiding Method External Catheter External Catheter External Catheter # Bowel Movements 2 1 - Exam Head exam: Present: normocephalic Eye exam: Present: normal appearance Neck exam: Present: normal inspection Respiratory exam: Present: normal lung sounds bilaterally Cardiovascular Exam: Present: regular rate, normal rhythm Peripheral pulses: 2+: Dorsalis Pedis (R), Dorsalis Pedis (L) GI/Abdominal exam: Present: soft. Absent: tenderness Extremities exam: Present: other (Bilateral lower legs wrapped). Absent: calf tenderness Neurological exam: Present: alert Psychiatric exam: Present: normal affect, normal mood Skin exam: Present: other (Bilateral lower legs with purplish discoloration from the knee to the ankles with some erythema and diffuse swelling and oozing of blood. Distally the extremity is neurovascularly intact. Skin color does improve the feet are good pedal pulses - Labs CBC & Chem 7: 03/02/23 05:59 03/02/23 05:59 Labs: Abnormal Lab Results - Last 24 Hours (Table) 02/27/23 02/27/23 02/28/23 Range/Units 17:19 20:26 07:06 POC Glucose (mg/dL) 299 H 275 H 208 H (70-110) mg/dL 02/28/23 Range/Units 11:52 POC Glucose (mg/dL) 270 H (70-110) mg/dL Microbiology - Last 24 Hours (Table) 02/25/23 15:06 Blood Culture - Preliminary Blood 02/25/23 06:54 Blood Culture - Preliminary Blood Assessment and Plan Assessment: 1. Bilateral lower extremity ulcers/cellulitis - Patient has venous stasis ulcers both lower extremities and has been placed on IV antibiotics in form of cefazolin 2 g every 8 hours; ID on board; further recommendations once culture results are available -- local wound care with a dry Aquacel silver dressing change every 48 hour followed by Mark 2. Bilateral chronic lower extremity venous stasis wounds Chronic venous insufficiency -- Continue local wound care and treatment with lymphedema pumps, compression and elevation. - Vascular surgery discussed with the patient if no continued improvement after possible ablation then would recommend amputation. 3. Atrial fibrillation; rate controlled on metoprolol; Ahlquist 2.5 mg twice a day 4. Congestive heart failure; Aldactone 25 mg daily, Lasix 40 mg twice a day 5. Hypertension; metoprolol 100 mg twice a day, amlodipine 5 mg daily, Aldactone 25 mg daily 6. COPD; not in exacerbation; continue with DVT prophylaxis; SCDs/systemic anticoagulation CODE STATUS; full code
[2023-03-03 07:18] LABS: Glucose,Whole Blood 185 mg/dL (70-110)
[2023-03-03 08:20] VITALS: BP 134/83; PULSE 64; RESP 15; TEMP 97.9
[2023-03-03 08:53] LABS: Basophils # (A) 0.01 X 10*3/uL (0.00-0.10); Basophils % (A) 0.3 %; Eosinophils # (A) 0.09 X 10*3/uL (0.04-0.35); Eosinophils % (A) 3.1 %; HCT 28.5 % (39.6-50.0); HGB 8.1 d/dL (13.0-17.0); Lymphocytes # (A) 0.77 X 10*3/uL (0.90-5.00); Lymphocytes % (A) 26.1 %; MCH 28.7 pg (27.0-32.0); MCHC 28.4 d/dL (32.0-37.0); MCV 101.1 FL (80.0-97.0); Mean Platelet Volume 9.9 FL (9.5-12.2); Monocytes % (A) 13.6 %; NRBC Per 100 WBC 0 X 10*3/uL (0.00-0.01); Neutrophils # (A) 1.66 X 10*3/uL (1.80-7.70); Neutrophils % (A) 56.2 %; Platelet Count 191 X 10*3/uL (140-440); RBC 2.82 X 10*6/uL (4.40-5.60); RDW 15.1 % (11.5-14.5); WBC 2.95 X 10*3/uL (4.50-10.00)
[2023-03-03] MEDS: SPIRONOLACTONE 25 MG TAB PO SCH (08:58)
[2023-03-03] MEDS: INSULIN ASPART (NovoLOG) 100 UNIT/ML VIAL SQ SCH ×2 (08:58→13:12)
[2023-03-03] MEDS: SENNOSIDES-DOCUSATE SODIUM 1 EACH TAB PO SCH (08:58)
[2023-03-03] MEDS: SODIUM CHLORIDE 0.9% 1,000 ML IV SCH (08:58)
[2023-03-03 10:59] VITALS: BMI 30.1
[2023-03-03 11:25] LABS: BUN/Creat Ratio 15.62 Ratio (12.00-20.00); Blood Urea Nitrogen 12.5 mg/dL (9.0-27.0); Calcium 8.1 mg/dL (8.7-10.3); Carbon Dioxide 24.6 mmol/L (21.6-31.8); Chloride 103 mmol/L (96-109); Glucose 162 mg/dL (70-110); Potassium 4.6 mmol/L (3.5-5.5); Sodium 136 mmol/L (135-145)
[2023-03-03 11:48] LABS: Glucose,Whole Blood 184 mg/dL (70-110)
--- NOTE | 2023-03-03 12:42 | P.DS ---
Providers Date of admission: 02/25/23 14:59 Expected date of discharge: 03/03/23 Attending physician: Mireille Trevino MD Consults: 02/25/23 15:04 Consult Physician Routine Consulting Provider: Vianca Calles Consult Reason/Comments: Bilateral legs cellulitis Do you want consulting provider notified?: Yes Primary care physician: Sean Muro [facility] Hospital Course: Final diagnosis Bilateral lower extremity cellulitis, present on admission Anemia, multifactorial Congestive heart failure history, unknown EF, not in exacerbation Hypertension history COPD, not in exacerbation Bilateral chronic lower extremity venous stasis wounds Atrial fibrillation history, currently rate controlled GI prophylaxis DVT prophylaxis Obesity with a BMI of 30.1 Full code Discharge disposition Patient is being discharged in a stable condition with guarded prognosis to [facility]. Patient will follow-up with Dr. Muro in the outpatient setting upon discharge. Patient is to continue with oral Keflex 500 mg 3 times daily for the next 1 week. Repeat CBC, BMP, magnesium in 2-3 days. Total time taken is greater than 35 minutes. Hospital course This is a 72-year-old male who was recently admitted with bilateral lower extremity cellulitis also with some anemia multifactorial requiring a unit of PRBCs this admission. Patient does take eliquis and recommend to hold for the next few days until follow-up repeat CBC, BMP, magnesium are drawn. Patient was evaluated by infectious disease along with vascular surgery and will be continued on oral Keflex 500 mg 3 times daily for the next one week. Patient has been cleared by consultations for discharge and will be going to [facility] today. Currently no reports of chest pain, shortness of breath, or palpitations. Patient is afebrile. No reports of nausea or vomiting and patient is tolerating diet. Patient will be going to [facility] today. Guarded prognosis and high risk for readmissions given patient's significant comorbidities Physical exam: Gen: This is a 72-year-old male who is asleep but arousable, alert and oriented 2, baseline, well-developed, well-nourished, obese HEENT: Head is atraumatic, normocephalic. Pupils equal, round. Sclerae is anicteric. NECK: Supple. No JVD. No lymphadenopathy. No thyromegaly. LUNGS: Clear to auscultation. No wheezes or rhonchi. No intercostal retractions. HEART: Regular rate and rhythm. No murmur. ABDOMEN: Soft. Bowel sounds are present. No masses. No tenderness. EXTREMITIES: No pedal edema. No calf tenderness. Bilateral lower extremity dressings are dry and intact and elevated on pillows NEUROLOGICAL: Patient is awake, alert and oriented x2. Cranial nerves 2 through 12 are grossly intact. Diffusely weak Please refer to medication reconciliation sheet for a list of medications. The impression and plan of care has been dictated by Casandra Guerrero, Nurse Practitioner as directed. Dr. Julio C MD I have performed a history and examination and MDM of this patient, discussed the same with the dictator, and agree with the dictator's assessment and plan as written ,documented as a scribe. Based on total visit time, I have performed more than 50% of the visit. Patient Condition at Discharge: Fair Plan - Discharge Summary Discharge Rx Participant: Yes New Discharge Prescriptions: New Cephalexin [Keflex] 500 mg PO Q8HR 7 Days #21 cap traMADol HCl [Ultram] 50 mg PO Q6H PRN #4 tab PRN Reason: Moderate Pain (Scale 4 To 6) Continue Tamsulosin HCl [Flomax] 0.4 mg PO HS@2130 Isosorbide Mononitrate ER [Imdur] 30 mg PO HS allopurinoL [Zyloprim] 300 mg PO HS Digoxin [Lanoxin] 125 mcg PO DAILY@0600 Magnesium Oxide 400 mg PO HS Na Phos,M-B/Na Phos,Di-Ba [Fleet Adult] 133 ml RECTAL DAILY PRN PRN Reason: Constipation Liquacel 30 ml PO BID@0800,1700 Magnesium Hydroxide [Milk of Magnesia Concentrate] 7,200 mg PO Q48H PRN PRN Reason: Constipation Loperamide HCl [Imodium A-D] 4 mg PO BID PRN PRN Reason: Diarrhea INSULIN LISPRO (HumaLOG) [humaLOG] See Protocol SQ TID@0700,1100,1630 Spironolactone [Aldactone] 25 mg PO BID@0800,2100 Insulin Detemir (Levemir) [Levemir] 10 unit SQ HS Albuterol Nebulized [Ventolin Nebulized] 2.5 mg INHALATION RT-QID PRN PRN Reason: Shortness Of Breath bisacodyL [Dulcolax] 10 mg RECTAL DAILY PRN PRN Reason: Constipation Ferrous Sulfate [Iron (65 MG Elemental)] 325 mg PO BID@0800,1700 Acetaminophen Tab [Tylenol] 650 mg PO TID PRN PRN Reason: Pain guaiFENesin [guaiFENesin Oral Solution] 200 mg PO Q4H PRN PRN Reason: Cough Sennosides/Docusate Sodium [Senna Plus 8.6-50 mg Tablet] 1 tab PO BID@0800, 2100 Ondansetron [Zofran] 4 mg PO Q8HR PRN PRN Reason: Nausea Multivitamins, Thera [Multivitamin (formulary)] 1 tab PO BID@0800,1700 Changed Metoprolol Tartrate [Lopressor] 50 mg PO BID@0800,1700 #0 Midodrine [ProAmatine] 10 mg PO AC-TID PRN #10 tab PRN Reason: Hypotension Discontinued Potassium Chloride 20 meq PO DAILY@1700 Apixaban [Eliquis] 2.5 mg PO BID@0800,1700 Furosemide [Lasix] 60 mg PO DAILY@0800 Furosemide [Lasix] 40 mg PO DAILY@1700 HYDROcodone/APAP 7.5-325MG [[place] 7.5-325] 1 tab PO Q6HR Discharge Medication List Isosorbide Mononitrate ER [Imdur] 30 mg PO HS 04/11/14 [History] Tamsulosin HCl [Flomax] 0.4 mg PO HS@2130 04/11/14 [History] allopurinoL [Zyloprim] 300 mg PO HS 03/03/16 [History] Digoxin [Lanoxin] 125 mcg PO DAILY@0600 06/09/18 [History] Magnesium Oxide 400 mg PO HS 12/29/20 [History] Albuterol Nebulized [Ventolin Nebulized] 2.5 mg INHALATION RT-QID PRN 02/27/21 [History] Ferrous Sulfate [Iron (65 MG Elemental)] 325 mg PO BID@0800,1700 03/20/21 [History] Liquacel 30 ml PO BID@0800,1700 03/20/21 [History] Na Phos,M-B/Na Phos,Di-Ba [Fleet Adult] 133 ml RECTAL DAILY PRN 03/20/21 [History] bisacodyL [Dulcolax] 10 mg RECTAL DAILY PRN 03/20/21 [History] Acetaminophen Tab [Tylenol] 650 mg PO TID PRN 08/16/21 [History] Magnesium Hydroxide [Milk of Magnesia Concentrate] 7,200 mg PO Q48H PRN 08/16/21 [History] guaiFENesin [guaiFENesin Oral Solution] 200 mg PO Q4H PRN 08/16/21 [History] Sennosides/Docusate Sodium [Senna Plus 8.6-50 mg Tablet] 1 tab PO BID@0800,2100 11/04/21 [History] INSULIN LISPRO (HumaLOG) [humaLOG] See Protocol SQ TID@0700,1100,1630 11/13/22 [History] Loperamide HCl [Imodium A-D] 4 mg PO BID PRN 11/13/22 [History] Multivitamins, Thera [Multivitamin (formulary)] 1 tab PO BID@0800,1700 11/13/22 [History] Ondansetron [Zofran] 4 mg PO Q8HR PRN 11/13/22 [History] Spironolactone [Aldactone] 25 mg PO BID@0800,2100 11/13/22 [History] Insulin Detemir (Levemir) [Levemir] 10 unit SQ HS 02/25/23 [History] Cephalexin [Keflex] 500 mg PO Q8HR 7 Days #21 cap 03/03/23 [Rx] Metoprolol Tartrate [Lopressor] 50 mg PO BID@0800,1700 #0 03/03/23 [Rx] Midodrine [ProAmatine] 10 mg PO AC-TID PRN #10 tab 03/03/23 [Rx] traMADol HCl [Ultram] 50 mg PO Q6H PRN #4 tab 03/03/23 [Rx] Follow up Appointment(s)/Referral(s): Sean Muro MD [Primary Care Provider] - 1-2 days Ene Golden DO [STAFF PHYSICIAN] - 2 Weeks Activity/Diet/Wound Care/Special Instructions: Patient is going to [facility] as tolerated Continue monitoring Accu-Cheks before meals and at bedtime and continue sliding scale along with long-acting insulin Continue with local wound care to lower extremities by applying Aquasol sheets with Kerlix every other day OR IF becoming soiled and elevate lower extremities while at rest Continue consistent carb diet Recommend repeat labs of CBC, BMP, magnesium in 2-3 days Continue holding diuretics for now until follow-up labs Continue with Keflex 500 mg 3 times daily for the next 1 week and then may discontinue hold eliquis for the next few days until repeat CBC is done Discharge Disposition: TRANSFER TO SNF/ECF
== END 2023-03-03 15:30 | DRG 603 ==
LOC: EC 12:33 → 5NMEDONC 14:59
PROVIDERS: ADMIT Internal Medicine; ATTEND Internal Medicine
DX: L03.116 Cellulitis of left lower limb (principal); I42.8 Other cardiomyopathies; L97.929 Non-pressure chronic ulcer of unspecified part of left lower leg with unspecified severity; L97.919 Non-pressure chronic ulcer of unspecified part of right lower leg with unspecified severity; I83.218 Varicose veins of right lower extremity with both ulcer of other part of lower extremity and inflammation; I83.228 Varicose veins of left lower extremity with both ulcer of other part of lower extremity and inflammation; L03.115 Cellulitis of right lower limb; E66.01 Morbid (severe) obesity due to excess calories; G47.33 Obstructive sleep apnea (adult) (pediatric); M19.042 Primary osteoarthritis, left hand; M19.041 Primary osteoarthritis, right hand; M17.0 Bilateral primary osteoarthritis of knee; M10.9 Gout, unspecified; N40.0 Benign prostatic hyperplasia without lower urinary tract symptoms; J44.9 Chronic obstructive pulmonary disease, unspecified; D64.9 Anemia, unspecified; I73.9 Peripheral vascular disease, unspecified; R53.81 Other malaise; F41.9 Anxiety disorder, unspecified; I11.0 Hypertensive heart disease with heart failure; I50.9 Heart failure, unspecified; I48.91 Unspecified atrial fibrillation; Z79.4 Long term (current) use of insulin; I87.8 Other specified disorders of veins; I89.0 Lymphedema, not elsewhere classified; Z79.899 Other long term (current) drug therapy; Z87.01 Personal history of pneumonia (recurrent); Z79.01 Long term (current) use of anticoagulants; Z68.30 Body mass index [BMI] 30.0-30.9, adult; Z71.3 Dietary counseling and surveillance
CPT/HCPCS: 36415; 71045; 80048; 80053; 83036; 83605; 85025; 85610; 85730; 86850; 86900; 86901; 86920; 87040; 96361; 96365; 96375; 99285

== ENCOUNTER → 2023-08-26 | Outpatient (CLI) | payer MEDICARE, BC ==
--- NOTE | 2023-08-26 18:07 | US ---
EXAMINATION TYPE: US liver DATE OF EXAM: 08/26/2023 COMPARISON: NONE CLINICAL INDICATION: Male, 73 years old with history of K74.60 CIRRHOSIS LIVER; abn liver labs, cirrh osis, cholecystectomy TECHNIQUE: Multiple sonographic images of the right upper quadrant are obtained. FINDINGS: EXAM MEASUREMENTS: Liver Length: 19.4 cm Gallbladder Wall: Surgically absent CBD: 0.8 cm Right Kidney: 11.0 x 4.5 x 3.8 cm [employer] NOTES:Patient cannot get out of wheelchair so he was scanned upright Pancreas: portion seen appear wnl Liver: enlarged, limited images Gallbladder: Surgically absent Evidence for sonographic Del Real's sign: no CBD: wnl Right Kidney: wnl IMPRESSION: 1. Limited abdomen ultrasound without acute changes. 2. Hepatomegaly
== END | disposition home or self-care (01) ==
LOC: RADUSWWP 07:46
PROVIDERS: ATTEND Internal Medicine Gastroenterology
DX: K74.60 Unspecified cirrhosis of liver (principal); R16.0 Hepatomegaly, not elsewhere classified
CPT/HCPCS: 76705

== ENCOUNTER 2023-10-27 11:44 | Inpatient (IN) | payer MEDICARE, BC ==
[2023-10-27] MEDS: LACTATED RINGERS 1,000 ML IV ONE ×3 (11:55→17:40)
[2023-10-27 12:48] LABS: Glucose,Whole Blood 183 mg/dL (70-110)
[2023-10-27 12:49] LABS: Anisocytosis Slight; Basophils % (A) 0 %; Eosinophils # (A) 0.1 k/uL (0-0.7); Eosinophils % (A) 2 %; HCT 28.5 % (39.0-53.0); Hypochromasia Marked; Lymphocytes # (A) 1.1 k/uL (1.0-4.8); Lymphocytes % (A) 21 %; MCH 25.9 pg (25.0-35.0); MCHC 28.3 g/dL (31.0-37.0); MCV 91.7 fL (80.0-100.0); Mean Platelet Volume 8.3; Monocytes # (A) 0.3 k/uL (0-1.0); Monocytes % (A) 6 %; Neutrophils # (A) 3.5 k/uL (1.3-7.7); Neutrophils % (A) 69 %; Platelet Count 316 k/uL (150-450); Poikilocytosis Slight; RBC 3.11 m/uL (4.30-5.90); RDW 17.7 % (11.5-15.5); WBC 5.1 k/uL (3.8-10.6)
[2023-10-27] MEDS ORDERED: ONDANSETRON 4 MG/2 ML VIAL ONE (12:54)
[2023-10-27] MEDS: DEXAMETHASONE SOD PHOSPHATE 4 MG/ML 1 ML VIAL IVP ONE (13:01)
[2023-10-27] MEDS: ONDANSETRON 4 MG/2 ML VIAL IVP ONE (13:01)
[2023-10-27 13:10] LABS: ALT 12 U/L (4-49); AST 20 U/L (17-59); African American GFR (CKD) >90 (>60 ml/min/1.73 sqM); Albumin 2.6 g/dL (3.5-5.0); Alkaline Phosphatase 167 U/L (38-126); Anion Gap 0 mmol/L; Blood Urea Nitrogen 51 mg/dL (9-20); Calcium 8.2 mg/dL (8.4-10.2); Carbon Dioxide 34 mmol/L (22-30); Chloride 100 mmol/L (98-107); Digoxin 0.4 ng/mL; Glucose 168 mg/dL (74-99); Non-African American GFR(CKD) 80 (>60 ml/min/1.73 sqM); Potassium 5.2 mmol/L (3.5-5.1); Sodium 134 mmol/L (137-145); Total Bilirubin 0.7 mg/dL (0.2-1.3); Total Protein 5.9 g/dL (6.3-8.2)
[2023-10-27] MEDS ORDERED: ePHEDrine 50 MG/ML 1 ML VIAL ONE (14:06)
[2023-10-27] MEDS ORDERED: PROPOFOL 10 MG/ML 20 ML VIAL IV ONE (14:06)
[2023-10-27] MEDS ORDERED: fentaNYL (PF) 50 MCG/ML 2 ML AMP ONE (14:06)
[2023-10-27] MEDS ORDERED: PHENYLEPHRINE-0.9% NACL SYG 1,000 MCG/10 ML SYRINGE ONE (14:06)
[2023-10-27] MEDS ORDERED: LIDOCAINE 1% INJ 10MG/ML (20 ML MDV) ONE (14:06)
[2023-10-27] MEDS: HYDROmorphone 0.5 MG/0.5 ML SYRINGE IVP ONE (16:38)
[2023-10-27] MEDS ORDERED: HYDROcodone/APAP 5-325MG 1 EACH TAB PO PRN (16:48)
[2023-10-27] MEDS ORDERED: .MORPHINE SULFATE (INJ) 10 MG/ML SYRINGE IVP PRN (16:48)
[2023-10-27] MEDS ORDERED: ONDANSETRON 4 MG/2 ML VIAL IVP PRN (16:48)
--- NOTE | 2023-10-27 16:55 | P.OP ---
Date of Procedure: 10/27/23 Description of Procedure: Preoperative diagnosis: Nonhealing severe left lower extremity wounds, nonambulatory Postoperative diagnosis: Same Procedure: Left above-knee amputation Surgeon: Ene Golden D.O. Anesthesia: General LMA EBL: 250 cc IV fluids: See records Urine output: See records Drains: None Complications: None immediately apparent Condition: Stable to recovery Operative indication and findings: Patient is a 73-year-old male with severe venous insufficiency and severe bilateral lower extremity wounds with significant pain to his wounds and edema. Because of this he has been requesting an above-knee amputation and at this time is ready to go forward with this. We had a long discussion regarding risks and benefits including but not limited to bleeding, infection, cardiopulmonary risk and . He seemingly understood and wanted to proceed. Procedure in detail: The patient was taken to the operative suite and placed in supine position. After adequate anesthesia, the left lower extremity was prepped and draped in usual sterile fashion. A preprocedure timeout was performed, all parties were in agreement. Skin marker was utilized and the incision was marked approximately 5 cm proximal to the knee joint. Skin incision was performed and deepened through the subcutaneous tissues to the muscular fascia. The saphenous vein was identified and ligated with 2-0 silk and divided. The muscle groups of the anterior and medial thigh were divided with electrocautery at the same level of the skin incision. The neurovascular bundle was identified on the medial aspect of the thigh. The artery and veins were isolated and suture ligated using 2-0 silk ligature. The sciatic nerve was pulled on stretch and ligated with 2-0 silk tie and divided. The femur was then cleared of its periosteal tissue is elevated roughly 5 cm proximally and was divided with the oscillating saw. The posterior thigh muscles were then divided with electrocautery. The proximal end of the transected femur was smoothed with a rasp. The amputation site was then copiously irrigated. Hemostasis was controlled with electrocautery. The periosteum was reapproximated using interrupted sutures of 2-0 Vicryl. The fascia was reapproximated with interrupted [id number] sutures of 2-0 Vicryl. There was significant difficulty in finding appropriate fascia for closure therefore vertical mattress sutures of 2-0 nylon were placed as well as the skin was reapproximated with suzan. A dressing with gauze, Kerlix and a bandage were placed. The patient tolerated the procedure well and was transported to PACU in stable condition
[2023-10-27 17:23] LABS: Anisocytosis Slight; HCT 28.6 % (39.0-53.0); HGB 8.5 gm/dL (13.0-17.5); Hypochromasia Marked; MCH 27.3 pg (25.0-35.0); MCHC 29.7 g/dL (31.0-37.0); MCV 91.9 fL (80.0-100.0); Mean Platelet Volume 7.8; Platelet Count 282 k/uL (150-450); Poikilocytosis Moderate; RBC 3.11 m/uL (4.30-5.90); RDW 17.3 % (11.5-15.5); WBC 5.4 k/uL (3.8-10.6)
[2023-10-27 17:29] LABS: Glucose,Whole Blood 233 mg/dL (70-110)
[2023-10-27] MEDS: INSULIN ASPART (NovoLOG) 100 UNIT/ML VIAL SQ ONE (17:38)
[2023-10-27] MEDS ORDERED: ALPRAZolam 0.25 MG TAB PO PRN (17:40)
[2023-10-27] MEDS ORDERED: bisacodyL 10 MG SUPP RECTAL PRN (17:40)
[2023-10-27] MEDS ORDERED: MAG HYDROX/AL HYDROX/SIMETH 30 ML CUP PO PRN (17:40)
[2023-10-27] MEDS ORDERED: ONDANSETRON 4 MG TAB PO PRN (17:40)
[2023-10-27] MEDS ORDERED: NA PHOS,M-B/NA PHOS,DI-BA 133 ML ENEMA RECTAL PRN (17:40)
[2023-10-27] MEDS ORDERED: guaiFENesin SYRUP 100MG/5ML 200 MG/10 ML CUP PO PRN (17:40)
[2023-10-27] MEDS ORDERED: IPRATROPIUM-ALBUTEROL 3 ML NEB INHALATION PRN (17:40)
[2023-10-27] MEDS ORDERED: ACETAMINOPHEN TAB 325 MG TAB PO PRN (17:40)
[2023-10-27] MEDS ORDERED: LOPERAMIDE 2 MG CAP PO PRN (17:40)
[2023-10-27] MEDS: HYDROcodone/APAP 10-325MG 1 EACH TAB PO SCH (18:31)
[2023-10-27] MEDS: KETOROLAC 0.5% OPHTH DROPS 5 ML BTL LEFT EYE SCH (18:38)
[2023-10-27] MEDS: prednisoLONE ACETATE 1% OPHTH DROPS 5 ML BTL LEFT EYE SCH (18:39)
[2023-10-27 20:37] LABS: Glucose,Whole Blood 319 mg/dL (70-110)
[2023-10-27] MEDS: ISOSORBIDE MONONITRATE ER 30 MG TAB.ER.24H PO SCH (21:19)
[2023-10-27] MEDS: MULTIVITAMINS, THERA 1 EACH TAB PO SCH (21:19)
[2023-10-27] MEDS: SPIRONOLACTONE 25 MG TAB PO SCH (21:19)
[2023-10-27] MEDS: MAGNESIUM OXIDE 400 MG TAB PO SCH (21:19)
[2023-10-27] MEDS: FERROUS SULFATE 325 MG TAB PO SCH (21:19)
[2023-10-27] MEDS: allopurinoL 300 MG TAB PO SCH (21:19)
[2023-10-27] MEDS: TAMSULOSIN 0.4 MG CAP.ER.24H PO SCH (21:19)
[2023-10-27] MEDS: SENNOSIDES-DOCUSATE SODIUM 1 EACH TAB PO SCH (21:19)
[2023-10-27] MEDS: INSULIN DETEMIR (LEVEMIR) 100 UNIT/ML SYR SQ SCH (21:30)
[2023-10-27] MEDS: INSULIN ASPART (NovoLOG) 100 UNIT/ML VIAL SQ SCH ×3 (21:32→21:34)
--- NOTE | 2023-10-27 22:43 | P.CONS ---
History of Present Illness - Reason for Consult Consult date: 10/27/23 Medical management Requesting physician: Ene Golden - Chief Complaint Post left above-knee amputation, severe PAD, severe nonhealing bilateral lo - History of Present Illness HISTORY OF PRESENT ILLNESS: 73-year-old male with active medical history of atrial fibrillation, CAD, congestive heart failure, hypertension, hyperlipidemia, benign prostatic hypertrophy, lymphedema, osteoarthritis, PVD, sleep apnea, chronic kidney disease, lymphedema, ulcer and nonhealing wound of both lower extremity. Patient has nonhealing ulcer of both lower extremity for over 2 years had seen at the wound clinic for the last 3 years still seen at [facility] wound clinic since his admission again over 2 years ago resolved with treatment, debridement, antibiotics use has not healed and with worsening PAD and worsening infection of all 5 including Klebsiella, MRSA, VRE with multiple course of IV and oral antibiotic not been able to heal it. Patient was sent to see vascular last few months and has not walk or use nose legs for several years not been able to put any pressure weight was given the option to go for amputation. Patient was scheduled for elective above-knee amputation with Dr. Golden which was done today successfully with no major complication he was taking off his anticoagulation last 2 days did not have any bleeding or complication afterward and hemodynamically stable at this point. Still having slightly pain, slight drowsiness otherwise no bleeding from the stump site with dressing looks good. REVIEW OF SYSTEMS: CONSTITUTIONAL: Well-developed no acute respiratory distress. EYES: No icterus sclerae, no conjunctivitis. EARS, NOSE, MOUTH, THROAT, and FACE: No sore throat, lymphadenopathy, carotid bruits or deformity. RESPIRATORY: Positive shortness of breath no cough or wheezes. CARDIOVASCULAR: Positive PND orthopnea palpitation with history of A-fib and cardiomyopathy. GASTROINTESTINAL: No Abd pain, Nausea or vomiting, no Diarrhea or constipation, No GI Bleed, no distention or masses. GENITOURINARY: Recurrent UTI with BPH and incontinence. INTEGUMENT/BREAST: Negative for any muscular injury with mild osteoarthritis.. HEMATOLOGIC/LYMPHATIC: History of anemia with no bleeding disorders. MUSCULOSKELTAL: Generalized muscle and joint pain. Bilateral lower extremity nonhealing lymphedema ulcer from below the knee all the way to the toes bilaterally worse on the left than the right side. NEURLOGICAL: No LOC, Sz or syncope, blurred vision dizziness or abnormality.. BEHAVIORAL/PSYCH: Negative. ENDOCRINE: Negative. PHYSICAL EXAMINATION: General Appearance: Alert, cooperative, no distress, appears stated age. Neck HEENT: Supple, no lymphadenopathy, no thyroid enlargement, no carotid bruits. Lungs: Decreased breath sound bilaterally with fine rhonchi positive mild expiratory wheezes. Chest Wall: Decreased expansion with deep inspiration no tenderness and no deformity was found on exam, no costochondral pain or discomfort. Heart: Irregular rate and rhythm, S1, S2 positive S3 positive systolic murmur. Back: Symmetric, no curvature, ROM normal, no CVA tenderness. Severe scoliosis and kyphosis. Abdomen: Soft, non-tender, bowel sounds active all four quadrants, no masses, no organomegaly. Extremities: No pulse dorsalis pedis bilaterally severe nonhealing ulcer with worsening wet infection still on the right side the left side had above named patient with the stump not bleeding. Pulses: No pulse. Skin: Skin color, texture, tugor normal, no rashes or lesions. Neurologic: Alert oriented x3 cranial nerves II through XII intact, no motor deficit, not able to do gait exam. ASSESSMENT AND PLAN: _Post left above-knee amputation secondary to severe PAD and nonhealing infected multiple ulcer, continue post amputation care including IV prophylaxis, hydration, watch patient hemodynamic status and continue pain meds with dressing change on time. _Severe PAD of both lower extremity will require the right side amputation ev entually in a month or so still have infection and inflammation on it. _A-fib with RVR: Will hold off on Eliquis for now but continue metoprolol titrate 50 mg twice a day feeling the pulse under 80 beats per minutes. _Hypertension: Remain on metoprolol and amlodipine along with Diuretics; his amlodipine should be probably switch eventually to ARB. _Severe nonischemic cardiomyopathy has been on medical management remain on spironolactone, metoprolol, isosorbide, furosemide and digoxin. _COPD: Has been on O2 try to keep his pulse ox above 90 percentile, still on smaller dose of prednisone every so often and remain on DuoNeb we can add Pulmicort at this point. _Type 2 diabetes: Remain on Lantus 10 units at bedtime along with Humalog 10 units plus sliding scales. _Congestive heart failure without exacerbation mostly cardiomyopathy will continue metoprolol, furosemide and spironolactone will be beneficial to add ARB at some point if patient is able to tolerate it. _Chronic kidney disease: Mostly stage II continue hydration watch for any urinary retention repeat CMP in the next 24 hours. _Chronic pain syndrome: Has been on hydrocodone_10 mg every 6 hours continues smaller dose of Lyrica or gabapentin as well. _BPH: Resume Flomax watch for any urinary retention. _Gout: With no flareup remain on allopurinol 3 mg daily. _Iron deficiency anemia: Continue multivitamin iron supplement. _GI prophylaxis: Continue patient on Pepcid 20 mg daily. _DVT prophylaxis: Resume Eliquis as soon as he can. CODE STATUS: Full code. Dr. Golden thank you much for the consult more than happy to see this gentleman along with you in the hospital if I can be any further help to please let me know. Past Medical History Past Medical History: Atrial Fibrillation, Heart Failure, COPD, Diabetes Mellitus, Hypertension, Osteoarthritis (OA), Pneumonia, Prostate Disorder, Renal Disease, Sleep Apnea/CPAP/BIPAP, Vascular Disorder Additional Past Medical History / Comment(s): Nonischemic cardiomyopathy, cardia c valve disease, bronchitis, JIMMIE with Cpap and O2 at 2L at hs, past decreased renal function, arthritis bilateral hands/knees, gout bilateral feet, numbness bilateral legs/feet, carpal tunnel syndrome bilaterally, bilateral hand tremors, nonhealing bilateral lower leg wounds/cellulitis, varicosities, lower leg/pedal edema, PVD, BPH. non hemorrahgic anemia. wound care MWF, wounds bleed. Fatty liver disease. History of Any Multi-Drug Resistant Organisms: MRSA Year Discovered:: 12/23/21 MDRO Source:: Right Leg Past Surgical History: Heart Catheterization Additional Past Surgical History / Comment(s): Split thickness skin graft to L leg, bronchoscopy, cyst and partial jaw removed/has screws, oral surgery age 8- too many teeth. cataracts bilaterallly Past Anesthesia/Blood Transfusion Reactions: Previous Problems w/ Anesthesia Additional Past Anesthesia/Blood Transfusion Reaction / Comm: STATED DURING BRONCH STOPPED BREATHING, (brochoscopy done at [facility]-record on chart) Smoking Status: Never smoker - Past Family History Father Family Medical History: Dementia, Eye Disorder Additional Family Medical History / Comment(s): MACULAR DEGENERATION Mother Family Medical History: Diabetes Mellitus, Eye Disorder, Vascular Disorder Additional Family Medical History / Comment(s): ANEURYSMS, CATARACTS. . Khadra GILLESPIE @ [facility] not aware family hx. pt's daughter had no imput. Medications and Allergies Home Medications Medication Instructions Recorded Confirmed Type Isosorbide Mononitrate ER [Imdur] 30 mg PO HS 04/11/14 10/27/23 History Tamsulosin HCl [Flomax] 0.4 mg PO HS 04/11/14 10/27/23 History allopurinoL [Zyloprim] 300 mg PO HS 03/03/16 10/27/23 History Digoxin [Lanoxin] 125 mcg PO DAILY@0600 06/09/18 10/27/23 History Magnesium Oxide 400 mg PO HS 12/29/20 10/27/23 History Ferrous Sulfate [Iron (65 MG 325 mg PO BID 03/20/21 10/27/23 History Elemental)] Na Phos,M-B/Na Phos,Di-Ba [Fleet 133 ml RECTAL DAILY PRN 03/20/21 10/27/23 History Adult] bisacodyL [Dulcolax] 10 mg RECTAL DAILY PRN 03/20/21 10/27/23 History Acetaminophen Tab [Tylenol] 650 mg PO TID PRN 08/16/21 10/27/23 History Magnesium Hydroxide [Milk of 30 ml PO DIRECTED PRN 08/16/21 10/27/23 History Magnesia Concentrate] guaiFENesin [guaiFENesin Oral 200 mg PO Q4H PRN 08/16/21 10/27/23 History Solution] Sennosides/Docusate Sodium [Senna 1 tab PO BID 11/04/21 10/27/23 History Plus 8.6-50 mg Tablet] INSULIN LISPRO (HumaLOG) [humaLOG] See Protocol SQ AC-TID 11/13/22 10/27/23 His tory Loperamide HCl [Imodium A-D] 4 mg PO DIRECTED PRN 11/13/22 10/27/23 History Multivitamins, Thera [Multivitamin 1 tab PO BID 11/13/22 10/27/23 History (formulary)] Ondansetron [Zofran] 4 mg PO Q8HR PRN 11/13/22 10/27/23 History Spironolactone [Aldactone] 25 mg PO BID 11/13/22 10/27/23 History Metoprolol Tartrate [Lopressor] 50 mg PO BID@0800,1700 #0 03/03/23 10/27/23 Rx ALPRAZolam [Xanax] 0.25 mg PO BID PRN 10/25/23 10/27/23 History Apixaban [Eliquis] 2.5 mg PO BID 10/25/23 10/27/23 History Furosemide [Lasix] 40 mg PO DAILY 10/25/23 10/27/23 History Hydrocodone/Acetaminophen 1 tab PO Q6HR 10/25/23 10/27/23 History [Hydrocodone/Acetaminophen 10-300 mg] Insulin Glargine [Lantus Vial] 10 units SQ HS 10/25/23 10/27/23 History Ipratropium-Albuterol Nebulize 3 ml INHALATION Q6H PRN 10/25/23 10/27/23 History [Duoneb 0.5 mg-3 mg/3 ml Soln] Ketorolac 0.5% Ophth Soln [Acular 1 drops LEFT EYE QID 10/25/23 10/27/23 History 0.5%] Midodrine [ProAmatine] 10 mg PO AC-TID 10/25/23 10/27/23 History Prednisolone Acetate/Pf 1 drop LEFT EYE QID 10/25/23 10/27/23 History [Prednisolone Acet 1% Eye Drop] Allergies Allergy/AdvReac Type Severity Reaction Status Date / Time No Known Allergies Allergy Verified 10/27/23 12:11 Physical Exam Vitals: Vital Signs Temp Pulse Pulse Resp BP BP Pulse Ox 10/27/23 17:21 79 16 97/56 99 10/27/23 17:06 65 16 92/57 100 10/27/23 16:51 67 16 95/51 100 10/27/23 16:36 54 L 18 99/55 100 10/27/23 16:33 70 16 109/54 100 10/27/23 16:21 60 16 98/52 100 10/27/23 16:06 97.0 F L 73 18 104/53 100 10/27/23 11:55 98 F 75 16 104/64 99 Intake and Output 10/27/23 10/27/23 10/27/23 06:59 14:59 22:59 Intake Total 1050 820 Output Total 250 Balance 1050 570 Intake: IV 1050 200 Blood Product 0 620 Rc As-1 Unit 310 [id number] Rc As-1 Unit 0 310 [id number] Output: Estimated Blood Loss 250 Other: Weight 112.68 kg Results CBC & Chem 7: 10/27/23 17:01 10/27/23 12:46 Labs: Abnormal Lab Results - Last 24 Hours (Table) 10/27/23 10/27/23 10/27/23 Range/Units 12:20 12:46 12:46 RBC 3.11 L (4.30-5.90) m/uL Hgb 8.0 L (13.0-17.5) gm/dL Hct 28.5 L (39.0-53.0) % MCHC 28.3 L (31.0-37.0) g/dL RDW 17.7 H (11.5-15.5) % Sodium 134 L (137-145) mmol/L Potassium 5.2 H (3.5-5.1) mmol/L Carbon Dioxide 34 H (22-30) mmol/L BUN 51 H (9-20) mg/dL Glucose 168 H (74-99) mg/dL POC Glucose (mg/dL) (70-110) mg/dL Calcium 8.2 L (8.4-10.2) mg/dL Alkaline Phosphatase 167 H (38-126) U/L Total Protein 5.9 L (6.3-8.2) g/dL Albumin 2.6 L (3.5-5.0) g/dL Crossmatch See Detail 10/27/23 10/27/23 10/27/23 Range/Units 12:46 17:01 17:27 RBC 3.11 L (4.30-5.90) m/uL Hgb 8.5 L (13.0-17.5) gm/dL Hct 28.6 L (39.0-53.0) % MCHC 29.7 L (31.0-37.0) g/dL RDW 17.3 H (11.5-15.5) % Sodium (137-145) mmol/L Potassium (3.5-5.1) mmol/L Carbon Dioxide (22-30) mmol/L BUN (9-20) mg/dL Glucose (74-99) mg/dL POC Glucose (mg/dL) 183 H 233 H (70-110) mg/dL Calcium (8.4-10.2) mg/dL Alkaline Phosphatase (38-126) U/L Total Protein (6.3-8.2) g/dL Albumin (3.5-5.0) g/dL Crossmatch
[2023-10-28 04:00] VITALS: RESP 16
[2023-10-28] MEDS: DIGOXIN 125 MCG TAB PO SCH (06:04)
[2023-10-28 06:13] LABS: Glucose,Whole Blood 231 mg/dL (70-110)
[2023-10-28] MEDS: MIDODRINE 5 MG TAB PO SCH (07:09)
[2023-10-28] MEDS: INSULIN ASPART (NovoLOG) 100 UNIT/ML VIAL SQ SCH (07:36)
[2023-10-28] MEDS: METOPROLOL TARTRATE 50 MG TAB PO SCH (08:14)
[2023-10-28] MEDS: FUROSEMIDE 40 MG TAB PO SCH (08:14)
[2023-10-28 09:48] LABS: Anisocytosis Slight; HCT 27.1 % (39.0-53.0); HGB 8.1 gm/dL (13.0-17.5); Hypochromasia Marked; MCH 27.8 pg (25.0-35.0); MCHC 29.7 g/dL (31.0-37.0); MCV 93.3 fL (80.0-100.0); Mean Platelet Volume 8.2; Platelet Count 268 k/uL (150-450); Poikilocytosis Moderate; RDW 17.1 % (11.5-15.5); WBC 5.8 k/uL (3.8-10.6)
[2023-10-28 10:31] LABS: ALT 11 U/L (4-49); AST 19 U/L (17-59); African American GFR (CKD) >90 (>60 ml/min/1.73 sqM); Albumin 2.1 g/dL (3.5-5.0); Alkaline Phosphatase 131 U/L (38-126); Anion Gap 7 mmol/L; Blood Urea Nitrogen 40 mg/dL (9-20); Calcium 7.8 mg/dL (8.4-10.2); Carbon Dioxide 26 mmol/L (22-30); Chloride 99 mmol/L (98-107); Glucose 226 mg/dL (74-99); Non-African American GFR(CKD) 86 (>60 ml/min/1.73 sqM); Sodium 132 mmol/L (137-145); Total Bilirubin 0.4 mg/dL (0.2-1.3); Total Protein 4.9 g/dL (6.3-8.2)
[2023-10-28 11:45] LABS: Glucose,Whole Blood 219 mg/dL (70-110)
[2023-10-28 11:52] VITALS: BP 100/63; PULSE 94; TEMP 98
[2023-10-28] MEDS: HYDROmorphone 1 MG/ML 1 ML SYRINGE IVP PRN (12:19)
--- NOTE | 2023-10-28 12:58 | P.CONS ---
History of Present Illness - Reason for Consult Consult date: 10/28/23 wound care - History of Present Illness This is a 73-year-old patient known to the wound care center with history of diabetes, peripheral vascular disease, nonhealing ulcerations to bilateral lower extremities. Patient is no longer following in the wound care center. His dressing changes are being handled at [facility]. He has been utilizing absorptive silver Curlex and Kahlil wrap's. Patient has been changed every 3 days. Patient is postop day 1 for a [id number] amputation to the left lower extremity. The plan is for him to have a hpsfc-[id number]-[id number] right amputation in the next few weeks to a month. Patient states that he is tolerating the dressings without any difficulties. He has no concerns or complaints related to dressing changes. Review Of Systems: Constitutional: No fever, no chills, no night sweats. No weight change. No weakness, fatigue or lethargy. No daytime sleepiness. Integumentary:reports wounds, no lesions. No rash or pruritus. No unusual bruising. No change in hair or nails. Physical exam: General Appearance: Alert, cooperative, no distress, appears stated age. Skin: See HPI all other Skin color, texture, tugor normal, no rashes or lesions. Neurologic: Alert oriented x3 Assessment: 1. Nonhealing ulceration with fat layer exposure right lower extremity 2. Diabetes with skin ulceration 3. Arthrosclerosis with ulcerations Plan: 1. Continue to utilize absorptive silver rolled gauze secure with tape wrap with Kahlil wrap. Change every 3 days. Saturate prior to removing. Thank you for the consultation any questions please contact the wound care center DNP note has been reviewed and discussed with Dr. Cadet and the impression and plan of care has been directed as dictated. Past Medical History Past Medical History: Atrial Fibrillation, Heart Failure, COPD, Diabetes Mellitus, Hypertension, Osteoarthritis (OA), Pneumonia, Prostate Disorder, Renal Disease, Sleep Apnea/CPAP/BIPAP, Vascular Disorder Additional Past Medical History / Comment(s): Nonischemic cardiomyopathy, cardiac valve disease, bronchitis, JIMMIE with Cpap and O2 at 2L at hs, past decreased renal function, arthritis bilateral hands/knees, gout bilateral feet, numbness bilateral legs/feet, carpal tunnel syndrome bilaterally, bilateral hand tremors, nonhealing bilateral lower leg wounds/cellulitis, varicosities, lower leg/pedal edema, PVD, BPH. non hemorrahgic anemia. wound care MWF, wounds bleed. Fatty liver disease. History of Any Multi-Drug Resistant Organisms: MRSA Year Discovered:: 12/23/21 MDRO Source:: Right Leg Past Surgical History: Heart Catheterization Additional Past Surgical History / Comment(s): Split thickness skin graft to L leg, bronchoscopy, cyst and partial jaw removed/has screws, oral surgery age 8- too many teeth. cataracts bilaterallly Past Anesthesia/Blood Transfusion Reactions: Previous Problems w/ Anesthesia Additional Past Anesthesia/Blood Transfusion Reaction / Comm: STATED DURING BRONCH STOPPED BREATHING, (brochoscopy done at [facility]-record on chart) Smoking Status: Never smoker - Past Family History Father Family Medical History: Dementia, Eye Disorder Additional Family Medical History / Comment(s): MACULAR DEGENERATION Mother Family Medical History: Diabetes Mellitus, Eye Disorder, Vascular Disorder Additional Family Medical History / Comment(s): ANEURYSMS, CATARACTS. . Khadra GILLESPIE @ [facility] not aware family hx. pt's daughter had no imput. Medications and Allergies Home Medications Medication Instructions Recorded Confirmed Type Isosorbide Mononitrate ER [Imdur] 30 mg PO HS 04/11/14 10/27/23 History Tamsulosin HCl [Flomax] 0.4 mg PO HS 04/11/14 10/27/23 History allopurinoL [Zyloprim] 300 mg PO HS 03/03/16 10/27/23 History Digoxin [Lanoxin] 125 mcg PO DAILY@0600 06/09/18 10/27/23 History Magnesium Oxide 400 mg PO HS 12/29/20 10/27/23 History Ferrous Sulfate [Iron (65 MG 325 mg PO BID 03/20/21 10/27/23 History Elemental)] Na Phos,M-B/Na Phos,Di-Ba [Fleet 133 ml RECTAL DAILY PRN 03/20/21 10/27/23 History Adult] bisacodyL [Dulcolax] 10 mg RECTAL DAILY PRN 03/20/21 10/27/23 History Acetaminophen Tab [Tylenol] 650 mg PO TID PRN 08/16/21 10/27/23 History Magnesium Hydroxide [Milk of 30 ml PO DIRECTED PRN 08/16/21 10/27/23 History Magnesia Concentrate] guaiFENesin [guaiFENesin Oral 200 mg PO Q4H PRN 08/16/21 10/27/23 History Solution] Sennosides/Docusate Sodium [Senna 1 tab PO BID 11/04/21 10/27/23 History Plus 8.6-50 mg Tablet] INSULIN LISPRO (HumaLOG) [humaLOG] See Protocol SQ AC-TID 11/13/22 10/27/23 History Loperamide HCl [Imodium A-D] 4 mg PO DIRECTED PRN 11/13/22 10/27/23 History Multivitamins, Thera [Multivitamin 1 tab PO BID 11/13/22 10/27/23 History (formulary)] Ondansetron [Zofran] 4 mg PO Q8HR PRN 11/13/22 10/27/23 History Spironolactone [Aldactone] 25 mg PO BID 11/13/22 10/27/23 History Metoprolol Tartrate [Lopressor] 50 mg PO BID@0800,1700 #0 03/03/23 10/27/23 Rx ALPRAZolam [Xanax] 0.25 mg PO BID PRN 10/25/23 10/27/23 History Apixaban [Eliquis] 2.5 mg PO BID 10/25/23 10/27/23 History Furosemide [Lasix] 40 mg PO DAILY 10/25/23 10/27/23 History Insulin Glargine [Lantus Vial] 10 units SQ HS 10/25/23 10/27/23 History Ipratropium-Albuterol Nebulize 3 ml INHALATION Q6H PRN 10/25/23 10/27/23 History [Duoneb 0.5 mg-3 mg/3 ml Soln] Ketorolac 0.5% Ophth Soln [Acular 1 drops LEFT EYE QID 10/25/23 10/27/23 History 0.5%] Midodrine [ProAmatine] 10 mg PO AC-TID 10/25/23 10/27/23 History Prednisolone Acetate/Pf 1 drop LEFT EYE QID 10/25/23 10/27/23 History [Prednisolone Acet 1% Eye Drop] Hydrocodone/Acetaminophen 1 tab PO Q6HR 3 Days #12 tab 05/03/24 Rx [Hydrocodone/Acetaminophen 10-300 mg] Allergies Allergy/AdvReac Type Severity Reaction Status Date / Time No Known Allergies Allergy Verified 10/27/23 12:11 Physical Exam Vitals: Vital Signs Temp Pulse Pulse Resp BP Pulse Ox 10/28/23 08:17 99 10/28/23 08:10 98 F 94 16 100/63 98 10/28/23 03:56 98.1 F 66 16 110/68 10/28/23 01:38 88 20 10/28/23 00:00 97.7 F 82 16 112/66 99 10/27/23 22:07 88 20 10/27/23 20:09 98.3 F 82 18 116/71 100 10/27/23 18:50 88 20 10/27/23 17:21 79 16 97/56 99 10/27/23 17:06 65 16 92/57 100 10/27/23 16:51 67 16 95/51 100 10/27/23 16:48 97.6 F 77 18 105/56 100 10/27/23 16:36 54 L 18 99/55 100 10/27/23 16:33 70 16 109/54 100 10/27/23 16:21 60 16 98/52 100 10/27/23 16:06 97.0 F L 73 18 104/53 100 Intake and Output 10/27/23 10/28/23 10/28/23 22:59 06:59 14:59 Intake Total 2130 220 Output Total 250 400 Balance 1880 -400 220 Intake: IV 1050 Intake, IV Titration 100 Amount ceFAZolin 2 gm In Sodium 100 Chloride 0.9% 50 ml @ 100 mls/hr IVPB Q8H [facility] Rx#: [id number] Oral 360 220 Blood Product 620 As-1 Unit 310 [id number] As-1 Unit 310 [id number] Output: Urine 400 Estimated Blood Loss 250 Other: Voiding Method Urinal Urinal Urinal Diaper Diaper Diaper Incontinent Incontinent Incontinent # Voids 2 Weight 112.68 kg Results CBC & Chem 7: 10/28/23 09:03 10/28/23 09:03 Labs: Abnormal Lab Results - Last 24 Hours (Table) 10/27/23 10/27/23 10/27/23 Range/Units 12:20 12:46 17:01 RBC 3.11 L (4.30-5.90) m/uL Hgb 8.5 L (13.0-17.5) gm/dL Hct 28.6 L (39.0-53.0) % MCHC 29.7 L (31.0-37.0) g/dL RDW 17.3 H (11.5-15.5) % Sodium 134 L (137-145) mmol/L Potassium 5.2 H (3.5-5.1) mmol/L Carbon Dioxide 34 H (22-30) mmol/L BUN 51 H (9-20) mg/dL Glucose 168 H (74-99) mg/dL POC Glucose (mg/dL) (70-110) mg/dL Calcium 8.2 L (8.4-10.2) mg/dL Alkaline Phosphatase 167 H (38-126) U/L Total Protein 5.9 L (6.3-8.2) g/dL Albumin 2.6 L (3.5-5.0) g/dL Crossmatch See Detail 10/27/23 10/27/23 10/28/23 Range/Units 17:27 20:35 06:12 RBC (4.30-5.90) m/uL Hgb (13.0-17.5) gm/dL Hct (39.0-53.0) % MCHC (31.0-37.0) g/dL RDW (11.5-15.5) % Sodium (137-145) mmol/L Potassium (3.5-5.1) mmol/L Carbon Dioxide (22-30) mmol/L BUN (9-20) mg/dL Glucose (74-99) mg/dL POC Glucose (mg/dL) 233 H 319 H 231 H (70-110) mg/dL Calcium (8.4-10.2) mg/dL Alkaline Phosphatase (38-126) U/L Total Protein (6.3-8.2) g/dL Albumin (3.5-5.0) g/dL Crossmatch 10/28/23 10/28/23 10/28/23 Range/Units 09:03 09:03 11:38 RBC 2.90 L (4.30-5.90) m/uL Hgb 8.1 L (13.0-17.5) gm/dL Hct 27.1 L (39.0-53.0) % MCHC 29.7 L (31.0-37.0) g/dL RDW 17.1 H (11.5-15.5) % Sodium 132 L (137-145) mmol/L Potassium (3.5-5.1) mmol/L Carbon Dioxide (22-30) mmol/L BUN 40 H (9-20) mg/dL Glucose 226 H (74-99) mg/dL POC Glucose (mg/dL) 219 H (70-110) mg/dL Calcium 7.8 L (8.4-10.2) mg/dL Alkaline Phosphatase 131 H (38-126) U/L Total Protein 4.9 L (6.3-8.2) g/dL Albumin 2.1 L (3.5-5.0) g/dL Crossmatch
--- NOTE | 2023-10-28 13:05 | P.DS ---
Providers Date of admission: 10/27/23 11:44 Expected date of discharge: 10/28/23 Attending physician: Ene Golden DO Consults: 10/27/23 16:48 Consult Physician Urgent Consulting Provider: Sean Muro Reason/Comments: Medical management Do you want consulting provider notified?: Yes Primary care physician: Sean Bhaskar [facility] Course: 73-year-old male with severe venous insufficiency and severe bilateral lower extremity nonhealing wounds with significant pain who was scheduled for elective left wfpli-xhn-ywas amputation. He has a past medical history including atrial fibrillation, coronary artery disease, congestive heart failure, hypertension, hyperlipidemia, BPH, lymphedema, osteoarthritis, peripheral vascular disease, sleep apnea, chronic kidney disease and chronic anemia. He is postop day #1. His he is sitting up in bed. States his pain is very well-controlled. He has been afebrile. Hemoglobin is stable. Primary medical team is following and requested wound center to evaluate patient for right lower extremity chronic nonhealing wounds. Patient resides at [facility] and has been getting wound care there he states he has not seen the wound care center for some time. He denies any shortness of breath, chest pain, abdominal pain, nausea or vomiting. He is tolerating his diet. Good urine output. Exam General appearance: The patient is alert, oriented, appears in no acute distress. HET: Head is normocephalic and atraumatic. Pupils are equal and reactive. Neck: Supple. Heart: Regular. Lungs: Equal expansion, normal respiratory effort. Abdomen: Soft, nontender, nondistended. Extremities: Right lower extremity with dressing clean dry and intact. Left wvtzn-gqn-becl amputation site well-approximated with sutures and suzan with m inimal bleeding. Dressing reapplied with Adaptic, Kerlix, ABD pad and Kahlil wrap. Neurological: No focal deficits. Assessment 1. Chronic nonhealing severe lower extremity wounds,status post left ab [id number]-lnmp amputation 2. Nonambulatory 3. Anemia of chronic disease 4. Atrial fibrillation 5. Peripheral vascular disease 6. Chronic kidney disease 7. Type 2 diabetes 8. COPD 9. 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 They will follow with patient after discharge at [facility]. Dressing changed with Adaptic, 4 x 4, ABD, Kerlix and Kahlil wrap. Pain medications as needed. Patient has been cleared by medical team for discharge. Plan is for discharge back to [facility] today. Patient will follow-up with Dr. Golden in 2 weeks. The impression and plan of care has been dictated as directed. I performed a history and examination of this patient, discussed the same with the dictator. I agree with the dictator's note ,documented as a scribe. Any additional findings or plans will be noted. Procedures: Left ouzjm-ztt-ipft amputation Patient Condition at Discharge: Stable Plan - Discharge Summary Discharge Rx Participant: No New Discharge Prescriptions: Continue Hydrocodone/Acetaminophen [Hydrocodone/Acetaminophen 10-300 mg] 1 tab PO Q6HR 3 Days #12 tab No Action Tamsulosin HCl [Flomax] 0.4 mg PO HS Isosorbide Mononitrate ER [Imdur] 30 mg PO HS allopurinoL [Zyloprim] 300 mg PO HS Digoxin [Lanoxin] 125 mcg PO DAILY@0600 Magnesium Oxide 400 mg PO HS Na Phos,M-B/Na Phos,Di-Ba [Fleet Adult] 133 ml RECTAL DAILY PRN PRN Reason: Constipation Magnesium Hydroxide [Milk of Magnesia Concentrate] 30 ml PO DIRECTED PRN PRN Reason: Constipation Loperamide HCl [Imodium A-D] 4 mg PO DIRECTED PRN PRN Reason: Diarrhea INSULIN LISPRO (HumaLOG) [humaLOG] See Protocol SQ AC-TID Spironolactone [Aldactone] 25 mg PO BID Metoprolol Tartrate [Lopressor] 50 mg PO BID@0800,1700 #0 ALPRAZolam [Xanax] 0.25 mg PO BID PRN PRN Reason: Anxiety Prednisolone Acetate/Pf [Prednisolone Acet 1% Eye Drop] 1 drop LEFT EYE QID bisacodyL [Dulcolax] 10 mg RECTAL DAILY PRN PRN Reason: Constipation Ferrous Sulfate [Iron (65 MG Elemental)] 325 mg PO BID Acetaminophen Tab [Tylenol] 650 mg PO TID PRN PRN Reason: Pain guaiFENesin [guaiFENesin Oral Solution] 200 mg PO Q4H PRN PRN Reason: Cough Sennosides/Docusate Sodium [Senna Plus 8.6-50 mg Tablet] 1 tab PO BID Ondansetron [Zofran] 4 mg PO Q8HR PRN PRN Reason: Nausea Multivitamins, Thera [Multivitamin (formulary)] 1 tab PO BID Furosemide [Lasix] 40 mg PO DAILY Ketorolac 0.5% Ophth Soln [Acular 0.5%] 1 drops LEFT EYE QID Insulin Glargine [Lantus Vial] 10 units SQ HS Apixaban [Eliquis] 2.5 mg PO BID Midodrine [ProAmatine] 10 mg PO AC-TID Ipratropium-Albuterol Nebulize [Duoneb 0.5 mg-3 mg/3 ml Soln] 3 ml INHALATION Q6H PRN PRN Reason: Congestion Discharge Medication List Isosorbide Mononitrate ER [Imdur] 30 mg PO HS 04/11/14 [History] Tamsulosin HCl [Flomax] 0.4 mg PO HS 04/11/14 [History] allopurinoL [Zyloprim] 300 mg PO HS 03/03/16 [History] Digoxin [Lanoxin] 125 mcg PO DAILY@0600 06/09/18 [History] Magnesium Oxide 400 mg PO HS 12/29/20 [History] Ferrous Sulfate [Iron (65 MG Elemental)] 325 mg PO BID 03/20/21 [History] Na Phos,M-B/Na Phos,Di-Ba [Fleet Adult] 133 ml RECTAL DAILY PRN 03/20/21 [History] bisacodyL [Dulcolax] 10 mg RECTAL DAILY PRN 03/20/21 [History] Acetaminophen Tab [Tylenol] 650 mg PO TID PRN 08/16/21 [History] Magnesium Hydroxide [Milk of Magnesia Concentrate] 30 ml PO DIRECTED PRN 08/16/21 [History] guaiFENesin [guaiFENesin Oral Solution] 200 mg PO Q4H PRN 08/16/21 [History] Sennosides/Docusate Sodium [Senna Plus 8.6-50 mg Tablet] 1 tab PO BID 11/04/21 [History] INSULIN LISPRO (HumaLOG) [humaLOG] See Protocol SQ AC-TID 11/13/22 [History] Loperamide HCl [Imodium A-D] 4 mg PO DIRECTED PRN 11/13/22 [History] Multivitamins, Thera [Multivitamin (formulary)] 1 tab PO BID 11/13/22 [History] Ondansetron [Zofran] 4 mg PO Q8HR PRN 11/13/22 [History] Spironolactone [Aldactone] 25 mg PO BID 11/13/22 [History] Metoprolol Tartrate [Lopressor] 50 mg PO BID@0800,1700 #0 03/03/23 [Rx] ALPRAZolam [Xanax] 0.25 mg PO BID PRN 10/25/23 [History] Apixaban [Eliquis] 2.5 mg PO BID 10/25/23 [History] Furosemide [Lasix] 40 mg PO DAILY 10/25/23 [History] Insulin Glargine [Lantus Vial] 10 units SQ HS 10/25/23 [History] Ipratropium-Albuterol Nebulize [Duoneb 0.5 mg-3 mg/3 ml Soln] 3 ml INHALATION Q6H PRN 10/25/23 [History] Ketorolac 0.5% Ophth Soln [Acular 0.5%] 1 drops LEFT EYE QID 10/25/23 [History] Midodrine [ProAmatine] 10 mg PO AC-TID 10/25/23 [History] Prednisolone Acetate/Pf [Prednisolone Acet 1% Eye Drop] 1 drop LEFT EYE QID 10/25/23 [History] Hydrocodone/Acetaminophen [Hydrocodone/Acetaminophen 10-300 mg] 1 tab PO Q6HR 3 Days #12 tab 10/28/23 [Rx] Follow up Appointment(s)/Referral(s): Sean Muro MD [Primary Care Provider] - 1 Week Ene Golden DO [STAFF PHYSICIAN] - 2 Weeks [facility] [NON-STAFF] - 1 Week Activity/Diet/Wound Care/Special Instructions: Comfort Orthotics will fit Stump Test Lead on Tuesday. [phone] Patient may shower but no tub bathing till cleared by vascular surgeon Change left [id number] amputation dressing daily with Adaptic, 4 x 4, ABD and wrap with Kerlix and Kahlil wrap. Monitor surgical incision for infection, call office or come to the emergency department with concerns of infection or fever greater than 100.4. Discharge Disposition: TRANSFER TO SNF/ECF
[2023-10-28 16:54] LABS: Glucose,Whole Blood 204 mg/dL (70-110)
== END 2023-10-28 17:50 | DRG 240 ==
LOC: 2ORMAIN 11:44 → 3SCARD 16:52
PROVIDERS: ADMIT Surgery; ATTEND Surgery
PROC: 0Y6D0Z3 Detachment at Left Upper Leg, Low, Open Approach (ICD-10-PCS; principal; 2023-10-27 13:40)
DX: E11.51 Type 2 diabetes mellitus with diabetic peripheral angiopathy without gangrene (principal); I13.0 Hypertensive heart and chronic kidney disease with heart failure and stage 1 through stage 4 chronic kidney disease, or unspecified chronic kidney disease; J96.11 Chronic respiratory failure with hypoxia; I42.8 Other cardiomyopathies; L97.322 Non-pressure chronic ulcer of left ankle with fat layer exposed; L97.312 Non-pressure chronic ulcer of right ankle with fat layer exposed; I48.19 Other persistent atrial fibrillation; I50.9 Heart failure, unspecified; D63.8 Anemia in other chronic diseases classified elsewhere; E11.22 Type 2 diabetes mellitus with diabetic chronic kidney disease; I70.243 Atherosclerosis of native arteries of left leg with ulceration of ankle; I70.233 Atherosclerosis of native arteries of right leg with ulceration of ankle; J44.9 Chronic obstructive pulmonary disease, unspecified; Z79.4 Long term (current) use of insulin; N18.2 Chronic kidney disease, stage 2 (mild); K76.0 Fatty (change of) liver, not elsewhere classified; I89.0 Lymphedema, not elsewhere classified; I25.10 Atherosclerotic heart disease of native coronary artery without angina pectoris; N40.1 Benign prostatic hyperplasia with lower urinary tract symptoms; N39.498 Other specified urinary incontinence; M10.9 Gout, unspecified; H91.90 Unspecified hearing loss, unspecified ear; D50.9 Iron deficiency anemia, unspecified; E78.5 Hyperlipidemia, unspecified; G89.4 Chronic pain syndrome; G47.33 Obstructive sleep apnea (adult) (pediatric); M19.041 Primary osteoarthritis, right hand; M19.042 Primary osteoarthritis, left hand; G56.03 Carpal tunnel syndrome, bilateral upper limbs; R25.1 Tremor, unspecified; M17.0 Bilateral primary osteoarthritis of knee; Z99.81 Dependence on supplemental oxygen; Z79.01 Long term (current) use of anticoagulants; Z79.899 Other long term (current) drug therapy; Z86.14 Personal history of Methicillin resistant Staphylococcus aureus infection
CPT/HCPCS: 80053; 80162; 85025; 85027; 86850; 86900; 86901; 86920; 94760

== ENCOUNTER 2024-01-23 14:31 | Inpatient (IN) | payer MEDICARE, BC ==
[2024-01-23 15:29] LABS: Basophils % (A) 0 %; Eosinophils % (A) 0 %; HCT 40.8 % (39.0-53.0); HGB 12.7 gm/dL (13.0-17.5); Hypochromasia Marked; Lymphocytes # (A) 0.5 k/uL (1.0-4.8); Lymphocytes % (A) 9 %; MCH 31.2 pg (25.0-35.0); MCV 100.6 fL (80.0-100.0); Macrocytosis Slight; Mean Platelet Volume 7.7; Monocytes # (A) 0.3 k/uL (0-1.0); Monocytes % (A) 6 %; Neutrophils # (A) 5.3 k/uL (1.3-7.7); Neutrophils % (A) 85 %; Platelet Count 162 k/uL (150-450); RBC 4.06 m/uL (4.30-5.90); WBC 6.3 k/uL (3.8-10.6)
[2024-01-23 15:47] LABS: ALT 26 U/L (4-49); AST 35 U/L (17-59); African American GFR (CKD) >90 (>60 ml/min/1.73 sqM); Albumin 3.6 g/dL (3.5-5.0); Alkaline Phosphatase 213 U/L (38-126); Anion Gap 10 mmol/L; Blood Urea Nitrogen 39 mg/dL (9-20); Calcium 8.8 mg/dL (8.4-10.2); Carbon Dioxide 24 mmol/L (22-30); Chloride 103 mmol/L (98-107); Glucose 292 mg/dL (74-99); Non-African American GFR(CKD) 87 (>60 ml/min/1.73 sqM); Potassium 4.7 mmol/L (3.5-5.1); Sodium 137 mmol/L (137-145); Total Bilirubin 0.9 mg/dL (0.2-1.3)
[2024-01-23 15:54] LABS: INR 1.1 (<1.2); Partial Thromboplastin Time 28.3 sec (22.0-30.0); Prothrombin Time 11.7 sec (10.0-12.5)
[2024-01-23 15:55] LABS: NT-Pro-B-Type Natriuretic Pept 2920 pg/mL
--- NOTE | 2024-01-23 16:13 | XR ---
EXAMINATION TYPE: XR chest 2V DATE OF EXAM: 01/23/2024 COMPARISON: 11/04/2021 HISTORY: Difficulty breathing TECHNIQUE: Frontal and lateral views of the chest are obtained. FINDINGS: The exam is limited by suboptimal inspiration. Possibility of an infiltrate in the right lung base is raised, possibly pneumonia. There is mild interstitial scarring or atelectasis in the left lung base . There is no large pleural effusion. There is no pneumothorax. The osseous structures are intact. IMPRESSION: 1. Limited by suboptimal inspiration. 2. Possible developing right lower lobe pneumonic infiltrate. Clinical correlation and short-term fol low-up to resolution is recommended.
[2024-01-23] MEDS: ONDANSETRON 4 MG/2 ML VIAL IVP STA (16:33)
--- NOTE | 2024-01-23 18:14 | ED ---
SOB HPI - General Chief Complaint: Shortness of Breath Stated Complaint: SOB,Chest pain Time Seen by Provider: 01/23/24 14:50 Source: patient, EMS Mode of arrival: EMS Limitations: no limitations - History of Present Illness Initial Comments: 73-year-old male with past medical history of A-fib, congestive heart failure, COPD who presents emergency department with shortness of breath. He is a transfer from [facility]. It was reported that the patient began having more shortness of breath. He did not wear his CPAP last night because he felt nauseated and was having some vomiting. Patient has had a productive cough. Patient was reporting to increase shortness of breath. He has been wearing 2 L of oxygen but states that he does not feel any improvement wearing the oxygen. X-ray was performed which demonstrated questionable pneumonia. Patient sent to the hospital for further evaluation - Related Data Home Medications Medication Instructions Recorded Confirmed Isosorbide Mononitrate ER [Imdur] 30 mg PO HS 04/11/14 01/23/24 Tamsulosin HCl [Flomax] 0.4 mg PO HS 04/11/14 01/23/24 allopurinoL [Zyloprim] 300 mg PO HS 03/03/16 01/23/24 Digoxin [Lanoxin] 125 mcg PO DAILY@0600 06/09/18 01/23/24 Magnesium Oxide 400 mg PO HS 12/29/20 01/23/24 Ferrous Sulfate [Iron (65 MG 325 mg PO BID@0800,2100 03/20/21 01/23/24 Elemental)] Na Phos,M-B/Na Phos,Di-Ba [Fleet 133 ml RECTAL DAILY PRN 03/20/21 01/23/24 Adult] bisacodyL [Dulcolax] 10 mg RECTAL DAILY PRN 03/20/21 01/23/24 Acetaminophen Tab [Tylenol] 650 mg PO TID PRN 08/16/21 01/23/24 Magnesium Hydroxide [Milk of 7,200 mg PO Q2D PRN 08/16/21 01/23/24 Magnesia Concentrate] guaiFENesin [guaiFENesin Oral 200 mg PO Q4H PRN 08/16/21 01/23/24 Solution] Sennosides/Docusate Sodium [Senna 1 tab PO Q12HR@0800,209911/04/21 01/23/24 Plus 8.6-50 mg Tablet] Loperamide HCl [Imodium A-D] 4 mg PO BID PRN 11/13/22 01/23/24 Multivitamins, Thera [Multivitamin 1 tab PO DAILY@0800 11/13/22 01/23/24 (formulary)] Ondansetron [Zofran] 4 mg PO Q8HR PRN 11/13/22 01/23/24 Spironolactone [Aldactone] 25 mg PO BID@0800,1700 11/13/22 01/23/24 Apixaban [Eliquis] 2.5 mg PO BID@0800,1700 10/25/23 01/23/24 Furosemide [Lasix] 40 mg PO DAILY@0800 10/25/23 01/23/24 Ipratropium-Albuterol Nebulize 3 ml INHALATION RT-QID PRN 10/25/23 01/23/24 [Duoneb 0.5 mg-3 mg/3 ml Soln] Midodrine [ProAmatine] 10 mg PO TID@0700,1100,1630 10/25/23 01/23/24 Gabapentin [Neurontin] 100 mg PO Q8HR@0600,1400,2200 01/23/24 01/23/24 Hola Packet 1 packet PO BID@0800,1700 01/23/24 01/23/24 Liquacel 30 ml PO BID@0800,1700 01/23/24 01/23/24 Metoprolol Tartrate [Lopressor] 50 mg PO BID@0800,1700 01/23/24 01/23/24 Previous Rx's Medication Instructions Recorded Cefuroxime [Ceftin] 250 mg PO BID 10 Days #20 tab 01/30/24 Famotidine [Pepcid] 20 mg PO DAILY tab 01/30/24 HYDROcodone/APAP 10-325MG [Armona 1 tab PO Q6H #20 tab 01/30/24 10-325] INSULIN ASPART (NovoLOG) [NovoLOG 0 unit SQ ACHS each 01/30/24 (formulary)] INSULIN ASPART (NovoLOG) [NovoLOG 10 unit SQ AC-TID each 01/30/24 (formulary)] Insulin Glargine [Lantus Vial] 40 units SQ HS #0 01/30/24 hydrALAZINE HCL [Apresoline] 25 mg PO QID PRN tab 01/30/24 lisinopriL [Zestril] 10 mg PO DAILY tab 01/30/24 Allergies Allergy/AdvReac Type Severity Reaction Status Date / Time No Known Allergies Allergy Verified 01/23/24 16:08 Review of Systems ROS Statement: Those systems with pertinent positive or pertinent negative responses have been documented in the HPI. ROS Other: All systems not noted in ROS Statement are negative. Past Medical History Past Medical History: Atrial Fibrillation, Heart Failure, COPD, Diabetes Mellitus, Hypertension, Osteoarthritis (OA), Pneumonia, Prostate Disorder, Renal Disease, Sleep Apnea/CPAP/BIPAP, Vascular Disorder Additional Past Medical History / Comment(s): Nonischemic cardiomyopathy, cardiac valve disease, bronchitis, JIMMIE with Cpap and O2 at 2L at hs, past decreased renal function, arthritis bilateral hands/knees, gout bilateral feet, numbness bilateral legs/feet, carpal tunnel syndrome bilaterally, bilateral hand tremors, nonhealing bilateral lower leg wounds/cellulitis, varicosities, lower leg/pedal edema, PVD, BPH. non hemorrahgic anemia. wound care MWF, wounds bleed. Fatty liver disease. History of Any Multi-Drug Resistant Organisms: MRSA Date of last positivie culture/infection: 12/23/21 MDRO Source:: Right Leg Past Surgical History: Heart Catheterization Additional Past Surgical History / Comment(s): Split thickness skin graft to L leg, bronchoscopy, cyst and partial jaw removed/has screws, oral surgery age 8- too many teeth. cataracts bilaterallly Past Anesthesia/Blood Transfusion Reactions: Previous Problems w/ Anesthesia Additional Past Anesthesia/Blood Transfusion Reaction / Comment(s): STATED DURING BRONCH STOPPED BREATHING, (brochoscopy done at [facility]-record on chart) Past Psychological History: Anxiety Smoking Status: Never smoker - Past Family History Father Family Medical History: Dementia, Eye Disorder Additional Family Medical History / Comment(s): MACULAR DEGENERATION Mother Family Medical History: Diabetes Mellitus, Eye Disorder, Vascular Disorder Additional Family Medical History / Comment(s): ANEURYSMS, CATARACTS. . Khadra [facility]ESPIE [facility] not aware family hx. pt's daughter had no imput. General Exam Limitations: no limitations General appearance: alert, in no apparent distress Head exam: Present: atraumatic, normocephalic, normal inspection Eye exam: Present: normal appearance, PERRL, EOMI. Absent: scleral icterus, conjunctival injection, periorbital swelling ENT exam: Present: normal exam, mucous membranes moist Neck exam: Present: normal inspection. Absent: tenderness, meningismus, lymphadenopathy Respiratory exam: Present: decreased breath sounds. Absent: respiratory distress, wheezes, rales, rhonchi, stridor Cardiovascular Exam: Present: regular rate, normal rhythm, normal heart sounds. Absent: systolic murmur, diastolic murmur, rubs, gallop, clicks GI/Abdominal exam: Present: soft, normal bowel sounds. Absent: distended, tenderness, guarding, rebound, rigid Extremities exam: Present: normal inspection, full ROM, normal capillary refill, pedal edema. Absent: tenderness, joint swelling, calf tenderness Back exam: Present: normal inspection Neurological exam: Present: alert, oriented X3, CN II-XII intact Psychiatric exam: Present: normal affect, normal mood Skin exam: Present: warm, dry, intact, normal color. Absent: rash Course Vital Signs 01/23/24 01/23/24 01/23/24 14:47 16:36 20:25 Temperature 98 F Pulse Rate 98 102 H 104 H Pulse Rate [ Food Assembler Kitchen ] Respiratory 20 18 18 Rate Blood Pressure 143/99 137/94 126/84 Blood Pressure [Left Arm] O2 Sat by Pulse 97 97 96 Oximetry 01/24/24 01/24/24 01/24/24 00:55 08:50 11:00 Temperature 98.0 F 98.2 F Pulse Rate 103 H 78 Pulse Rate [ 97 Food Assembler Kitchen ] Respiratory 16 22 19 Rate Blood Pressure 121/85 114/81 Blood Pressure 137/79 [Left Arm] O2 Sat by Pulse 96 95 Oximetry 01/24/24 01/24/24 01/24/24 11:11 11:14 11:19 Temperature Pulse Rate 98 93 Pulse Rate [ Food Assembler Kitchen ] Respiratory Rate Blood Pressure Blood Pressure [Left Arm] O2 Sat by Pulse 92 L Oximetry 01/24/24 01/24/24 01/24/24 15:11 15:20 17:45 Temperature 97.9 F Pulse Rate 90 74 90 Pulse Rate [ Food Assembler Kitchen ] Respiratory 19 Rate Blood Pressure 120/78 Blood Pressure [Left Arm] O2 Sat by Pulse 92 L Oximetry Procedures - [facility] Protocol (Time Out) Nurse: Halle Dominguez Medical Decision Making - Medical Decision Making Was pt. sent in by a medical professional or institution (JEWEL Lizarraga, MA[employer]GER [employer], urgent care, hospital, or [facility]cc...) When possible be specific @ -[facility] Did you speak to anyone other than the patient for history (EMS, parent, family, police, friend...)? What history was obtained from this source @ -Spoke with EMS Did you review nursing and triage notes (agree or disagree)? Why? @ -I reviewed and agree with nursing and triage notes Were old charts reviewed (outside hosp., previous admission, EMS record, old EKG, old radiological studies, urgent care reports/EKG's, [facility] records)? Report findings @ -Reviewed paperwork including MAR from [facility] Differential Diagnosis (chest pain, altered mental status, abdominal pain women, abdominal pain men, vaginal bleeding, weakness, fever, dyspnea, syncope, headache, dizziness, GI bleed, back pain, seizure, CVA, palpatations, mental health, musculoskeletal)? @ -Differential Dyspnea: Coronary syndrome, arrhythmia, tamponade, asthma, COPD, pulmonary embolism, pneumonia, pneumothorax, pulmonary effusion, anaphylaxis, diabetic ketoacidosis, flailed chest, pulmonary contusion, diaphragmatic rupture, anemia, neuromuscular, this is not meant to be an all-inclusive list. EKG interpreted by me (3pts min.). @ -Yes and demonstrates A-fib with a rapid rate of 118. QRS 168. QTc of 451. No acute ST segment elevations or depressions. Right bundle branch block X-rays interpreted by me (1pt min.). @ -Yes and demonstrates possible right-sided pneumonia CT interpreted by me (1pt min.). @ -None done U/S interpreted by me (1pt. min.). @ -None done What testing was considered but not performed or refused? (CT, X-rays, U/S, labs)? Why? @ -None What meds were considered but not given or refused? Why? @ -None Did you discuss the management of the patient with other professionals (nichol burns i.e. JEWEL Lizarraga, MA[employer]GER [employer]ARS, lab, RT, psych nurse, social sciences instructor, field research associate, teacher, aoc aadc operations staff officer, case liner)? Give summary @ -Spoke with Dr. Muro for admission Was smoking cessation discussed for >3mins.? @ -No Was critical care preformed (if so, how long)? @ -No Were there social determinants of health that impacted care today? How? (Homelessness, low income, unemployed, alcoholism, drug addiction, transportation, low edu. Level, literacy, decrease access to med. care, detention, rehab)? @ -Patient is in rehab Was there de-escalation of care discussed even if they declined (Discuss DNR or withdrawal of care, Hospice)? DNR status @ -No What co-morbidities impacted this encounter? (DM, HTN, Smoking, COPD, CAD, Cancer, CVA, ARF, Chemo, Hep., AIDS, mental health diagnosis, sleep apnea, mor bid obesity)? @ -Congestive heart failure, COPD Was patient admitted / discharged? Hospital course, mention meds given and route, prescriptions, significant lab abnormalities, going to OR and other p ertinent info. @ -Upon arrival patient seen and evaluated in room 18. Thorough history and physical exam was performed. IV access was established laboratory studies are conducted. Chest x-ray was performed. Patient initiated on breathing treatments and antibiotics. Will admit to Dr. Muro who agreed to admission Undiagnosed new problem with uncertain prognosis? @ -No Drug Therapy requiring intensive monitoring for toxicity (Heparin, Nitro, Insulin, Cardizem)? @ -No Were any procedures done? @ -No Diagnosis/symptom? @ -Acute respiratory insufficiency, chronic respiratory failure, acute exacerbation of COPD, community-acquired pneumonia, venous stasis ulcer right lower extremity Acute, or Chronic, or Acute on Chronic? @Acute on chronic Uncomplicated (without systemic symptoms) or Complicated (systemic symptoms)? @ -Complicated Side effects of treatment? @ -No Exacerbation, Progression, or Severe Exacerbation? @ -Yes Poses a threat to life or bodily function? How? (Chest pain, USA, OR, pneumonia, PE, COPD, DKA, ARF, appy, cholecystitis, CVA, Diverticulitis, Homicidal, Suici martina, threat to staff... and all critical care pts) @ -No - Lab Data Result diagrams: 01/29/24 06:04 01/30/24 03:44 Lab Results 01/23/24 01/23/24 01/23/24 Range/Units 15:11 15:11 15:11 WBC 6.3 (3.8-10.6) k/uL RBC 4.06 L (4.30-5.90) m/uL Hgb 12.7 L (13.0-17.5) gm/dL Hct 40.8 (39.0-53.0) % MCV 100.6 H (80.0-100.0) fL MCH 31.2 (25.0-35.0) pg MCHC 31.0 (31.0-37.0) g/dL RDW 15.0 (11.5-15.5) % Plt Count 162 (150-450) k/uL MPV 7.7 Neutrophils % 85 % Lymphocytes % 9 % Monocytes % 6 % Eosinophils % 0 % Basophils % 0 % Neutrophils # 5.3 (1.3-7.7) k/uL Lymphocytes # 0.5 L (1.0-4.8) k/uL Monocytes # 0.3 (0-1.0) k/uL Eosinophils # 0.0 (0-0.7) k/uL Basophils # 0.0 (0-0.2) k/uL Hypochromasia Marked Macrocytosis Slight PT 11.7 (10.0-12.5) sec INR 1.1 (<1.2) APTT 28.3 (22.0-30.0) sec Sodium 137 (137-145) mmol/L Potassium 4.7 (3.5-5.1) mmol/L Chloride 103 (98-107) mmol/L Carbon Dioxide 24 (22-30) mmol/L Anion Gap 10 mmol/L BUN 39 H (9-20) mg/dL Creatinine 0.87 (0.66-1.25) mg/dL Est GFR (CKD-EPI)AfAm >90 (>60 ml/min/1.73 sqM) Est GFR (CKD-EPI)NonAf 87 (>60 ml/min/1.73 sqM) Glucose 292 H (74-99) mg/dL Lactic Ac Sepsis Rflx Plasma Lactic Acid Tavares (0.7-2.0) mmol/L Calcium 8.8 (8.4-10.2) mg/dL Total Bilirubin 0.9 (0.2-1.3) mg/dL AST 35 (17-59) U/L ALT 26 (4-49) U/L Alkaline Phosphatase 213 H (38-126) U/L Troponin I (0.000-0.034) ng/mL NT-Pro-B Natriuret Pep 2920 pg/mL Total Protein 7.0 (6.3-8.2) g/dL Albumin 3.6 (3.5-5.0) g/dL Digoxin ng/mL Influenza Type A (PCR) (Not Detectd) Influenza Type B (PCR) (Not Detectd) RSV (PCR) (Not Detectd) SARS-CoV-2 (PCR) (Not Detectd) 01/23/24 01/23/24 01/23/24 Range/Units 15:11 15:11 15:11 WBC (3.8-10.6) k/uL RBC (4.30-5.90) m/uL Hgb (13.0-17.5) gm/dL Hct (39.0-53.0) % MCV (80.0-100.0) fL MCH (25.0-35.0) pg MCHC (31.0-37.0) g/dL RDW (11.5-15.5) % Plt Count (150-450) k/uL MPV Neutrophils % % Lymphocytes % % Monocytes % % Eosinophils % % Basophils % % Neutrophils # (1.3-7.7) k/uL Lymphocytes # (1.0-4.8) k/uL Monocytes # (0-1.0) k/uL Eosinophils # (0-0.7) k/uL Basophils # (0-0.2) k/uL Hypochromasia Macrocytosis PT (10.0-12.5) sec INR (<1.2) APTT (22.0-30.0) sec Sodium (137-145) mmol/L Potassium (3.5-5.1) mmol/L Chloride (98-107) mmol/L Carbon Dioxide (22-30) mmol/L Anion Gap mmol/L BUN (9-20) mg/dL Creatinine (0.66-1.25) mg/dL Est GFR (CKD-EPI)AfAm (>60 ml/min/1.73 sqM) Est GFR (CKD-EPI)NonAf (>60 ml/min/1.73 sqM) Glucose (74-99) mg/dL Lactic Ac Sepsis Rflx Plasma Lactic Acid Tavares 2.4 H* (0.7-2.0) mmol/L Calcium (8.4-10.2) mg/dL Total Bilirubin (0.2-1.3) mg/dL AST (17-59) U/L ALT (4-49) U/L Alkaline Phosphatase (38-126) U/L Troponin I 0.017 (0.000-0.034) ng/mL NT-Pro-B Natriuret Pep pg/mL Total Protein (6.3-8.2) g/dL Albumin (3.5-5.0) g/dL Digoxin 0.7 ng/mL Influenza Type A (PCR) (Not Detectd) Influenza Type B (PCR) (Not Detectd) RSV (PCR) (Not Detectd) SARS-CoV-2 (PCR) (Not Detectd) 01/23/24 01/23/24 Range/Units 15:18 16:40 WBC (3.8-10.6) k/uL RBC (4.30-5.90) m/uL Hgb (13.0-17.5) gm/dL Hct (39.0-53.0) % MCV (80.0-100.0) fL MCH (25.0-35.0) pg MCHC (31.0-37.0) g/dL RDW (11.5-15.5) % Plt Count (150-450) k/uL MPV Neutrophils % % Lymphocytes % % Monocytes % % Eosinophils % % Basophils % % Neutrophils # (1.3-7.7) k/uL Lymphocytes # (1.0-4.8) k/uL Monocytes # (0-1.0) k/uL Eosinophils # (0-0.7) k/uL Basophils # (0-0.2) k/uL Hypochromasia Macrocytosis PT (10.0-12.5) sec INR (<1.2) APTT (22.0-30.0) sec Sodium (137-145) mmol/L Potassium (3.5-5.1) mmol/L Chloride (98-107) mmol/L Carbon Dioxide (22-30) mmol/L Anion Gap mmol/L BUN (9-20) mg/dL Creatinine (0.66-1.25) mg/dL Est GFR (CKD-EPI)AfAm (>60 ml/min/1.73 sqM) Est GFR (CKD-EPI)NonAf (>60 ml/min/1.73 sqM) Glucose (74-99) mg/dL Lactic Ac Sepsis Rflx Y Plasma Lactic Acid Tavares (0.7-2.0) mmol/L Calcium (8.4-10.2) mg/dL Total Bilirubin (0.2-1.3) mg/dL AST (17-59) U/L ALT (4-49) U/L Alkaline Phosphatase (38-126) U/L Troponin I (0.000-0.034) ng/mL NT-Pro-B Natriuret Pep pg/mL Total Protein (6.3-8.2) g/dL Albumin (3.5-5.0) g/dL Digoxin ng/mL Influenza Type A (PCR) Not Detected (Not Detectd) Influenza Type B (PCR) Not Detected (Not Detectd) RSV (PCR) Not Detected (Not Detectd) SARS-CoV-2 (PCR) Not Detected (Not Detectd) Disposition Clinical Impression: Acute exacerbation of chronic obstructive airways disease, Bacterial pneumonia, Respiratory insufficiency, Venous stasis ulcer of right lower extremity Disposition: ADMITTED IP TO THIS HOSP Condition: Stable Is patient prescribed a controlled substance at d/c from ED?: No Time of Disposition: 19:46 Decision to Admit Reason: Admit from EC Decision Date: 01/23/24 Decision Time: 19:46
[2024-01-23] MEDS ORDERED: PNEUMONIA PROTOCOL UTILIZED 1 EACH MISC PO PRN (19:36)
[2024-01-23] MEDS ORDERED: ACETAMINOPHEN TAB 325 MG TAB PO PRN (19:50)
[2024-01-23] MEDS ORDERED: ONDANSETRON 4 MG TAB PO PRN (19:50)
[2024-01-23] MEDS ORDERED: bisacodyL 10 MG SUPP RECTAL PRN (19:50)
[2024-01-23] MEDS ORDERED: LOPERAMIDE 2 MG CAP PO PRN (19:50)
[2024-01-23] MEDS ORDERED: MAGNESIUM HYDROXIDE 2,400 MG/30 ML CUP PO PRN (19:50)
[2024-01-23] MEDS ORDERED: guaiFENesin SYRUP 100MG/5ML 200 MG/10 ML CUP PO PRN (19:50)
[2024-01-23] MEDS ORDERED: NA PHOS,M-B/NA PHOS,DI-BA 133 ML ENEMA RECTAL PRN (19:50)
[2024-01-23 20:33] LABS: Glucose,Whole Blood 247 mg/dL (70-110)
[2024-01-23] MEDS: CEFEPIME 2 GM in SODIUM CHLORIDE 0.9% 100 ML IVPB STA (20:34)
[2024-01-23] MEDS: SENNOSIDES-DOCUSATE SODIUM 1 EACH TAB PO SCH (20:34)
[2024-01-23] MEDS: HYDROcodone/APAP 10-325MG 1 EACH TAB PO SCH (20:35)
[2024-01-23] MEDS: TAMSULOSIN 0.4 MG CAP.ER.24H PO SCH (20:35)
[2024-01-23] MEDS: FERROUS SULFATE 325 MG TAB PO SCH (20:35)
[2024-01-23] MEDS: ISOSORBIDE MONONITRATE ER 30 MG TAB.ER.24H PO SCH (20:35)
[2024-01-23] MEDS: MAGNESIUM OXIDE 400 MG TAB PO SCH (20:35)
[2024-01-23] MEDS: allopurinoL 300 MG TAB PO SCH (20:35)
[2024-01-23] MEDS: GABAPENTIN 100 MG CAP PO SCH (21:16)
[2024-01-23] MEDS: AZITHROMYCIN 500 MG in SODIUM CHLORIDE 0.9% 250 ML IVPB STA (21:17)
[2024-01-23] MEDS: IPRATROPIUM-ALBUTEROL 3 ML NEB INHALATION SCH (21:45)
[2024-01-23] MEDS: INSULIN DETEMIR (LEVEMIR) 100 UNIT/ML SYR SQ SCH (22:15)
[2024-01-24] MEDS: methylPREDNISolone SOD SUCCI 40 MG/ML 1 ML VIAL IV SCH (01:03)
[2024-01-24] MEDS: DIGOXIN 125 MCG TAB PO SCH (06:30)
[2024-01-24 06:31] LABS: Glucose,Whole Blood 291 mg/dL (70-110)
[2024-01-24] MEDS: MIDODRINE 5 MG TAB PO SCH (06:31)
[2024-01-24] MEDS ORDERED: DEXTROSE 50% SYRINGE 50 ML IVP PRN ×2 (07:05)
[2024-01-24] MEDS ORDERED: INSULIN ASPART (NovoLOG) 100 UNIT/ML VIAL SQ SCH (07:30)
--- NOTE | 2024-01-24 07:56 | XR ---
EXAMINATION TYPE: XR chest 1V portable DATE OF EXAM: 01/24/2024 HISTORY: Shortness of breath. COMPARISON: 01/23/2024 TECHNIQUE: Single view of the chest is submitted. FINDINGS: Demonstrated are scattered senescent parenchymal change. There is no evidence for focal infiltrate. Parenchymal scarring or linear atelectasis at the lung bas es. The heart is stable. Hilar and mediastinal structures are within normal limits. Degenerative changes are seen of the dorsal spine. IMPRESSION: 1. Chronic changes without evidence for acute pulmonary disease.
[2024-01-24] MEDS ORDERED: NON FORMULARY DRUG (Liquacel 30 ML) PO SCH (08:00)
[2024-01-24] MEDS ORDERED: NON FORMULARY DRUG (Juven Packet 1 PACKET Packet) PO SCH (08:00)
[2024-01-24] MEDS: INSULIN ASPART (NovoLOG) 100 UNIT/ML VIAL SQ SCH (08:52)
[2024-01-24] MEDS: APIXABAN 2.5 MG TABLET PO SCH (08:53)
[2024-01-24] MEDS: SPIRONOLACTONE 25 MG TAB PO SCH (08:54)
[2024-01-24] MEDS: FUROSEMIDE 40 MG TAB PO SCH (08:54)
[2024-01-24] MEDS: METOPROLOL TARTRATE 50 MG TAB PO SCH (08:55)
[2024-01-24] MEDS: FAMOTIDINE 20 MG TAB PO SCH (08:55)
[2024-01-24] MEDS: MULTIVITAMINS, THERA 1 EACH TAB PO SCH (08:55)
[2024-01-24] MEDS: AZITHROMYCIN 500 MG in SODIUM CHLORIDE 0.9% 250 ML IVPB SCH (08:57)
[2024-01-24] MEDS: CEFEPIME 2 GM in SODIUM CHLORIDE 0.9% 100 ML IVPB SCH ×2 (08:58→22:39)
[2024-01-24 09:03] LABS: HCT 40.1 % (39.6-50.0); MCH 31.3 pg (27.0-32.0); MCHC 29.9 g/dL (32.0-37.0); MCV 104.7 FL (80.0-97.0); Mean Platelet Volume 10.4 FL (9.5-12.2); NRBC Per 100 WBC 0 X 10*3/uL (0.00-0.01); Platelet Count 167 X 10*3/uL (140-440); RBC 3.83 X 10*6/uL (4.40-5.60); WBC 7.28 X 10*3/uL (4.50-10.00)
[2024-01-24 09:22] LABS: ALT 24 U/L (10-49); AST 24 U/L (14-35); Albumin 3.5 g/dL (3.8-4.9); Albumin/Globulin Ratio 1.06 Ratio (1.60-3.17); Alkaline Phosphatase 216 U/L (41-126); BUN/Creat Ratio 31.38 Ratio (12.00-20.00); Blood Urea Nitrogen 40.8 mg/dL (9.0-27.0); Calcium 8.6 mg/dL (8.7-10.3); Carbon Dioxide 24.2 mmol/L (21.6-31.8); Chloride 102 mmol/L (96-109); Globulin 3.3 g/dL (1.6-3.3); Glucose 335 mg/dL (70-110); Potassium 5.3 mmol/L (3.5-5.5); Sodium 138 mmol/L (135-145); Total Bilirubin 0.4 mg/dL (0.3-1.2); Total Protein 6.8 g/dL (6.2-8.2)
[2024-01-24 11:02] LABS: Glucose,Whole Blood 407 mg/dL (70-110)
--- NOTE | 2024-01-24 15:25 | CA ---
Transthoracic Echo Report Name: Lowell Barraza Age: 73 Gender: M : 1950 Exam Date: 01/24/2024 08:21 Exam Location: [facility] Ht (in): 69 Wt (lb): 240 Ordering Physician: Sean Muro MD Attending/Referring Phys: Light Rail Train Operator Graciela Chery RDCS Procedure CPT: Indications: lvfunction Cardiac Hx: Technical Quality: Fair Contrast 1: Total Dose (mL): Contrast 2: Total Dose (mL): MEASUREMENTS (Male / Female) Normal Values 2D ECHO LV Diastolic Diameter PLAX 4.7 cm 4.2 - 5.9 / 3.9 - 5.3 cm LV Systolic Diameter PLAX 3.2 cm IVS Diastolic Thickness 1.5 cm 0.6 - 1.0 / 0.6 - 0.9 cm LVPW Diastolic Thickness 1.6 cm 0.6 - 1.0 / 0.6 - 0.9 cm LV Relative Wall Thickness 0.7 RV Internal Dim ED PLAX 4.2 cm LA Systolic Diameter LX 5.5 cm 3.0 - 4.0 / 2.7 - 3.8 cm LV Diastolic Volume MOD 4C 160.7 cm??? LV Systolic Volume MOD 4C 88.8 cm??? LV Ejection Fraction MOD 4C 44.7 % LV Cardiac Index MOD 4C 3037.2 cm???/min???m??? LV Diastolic Length 4C 8.2 cm LV Systolic Length 4C 6.8 cm LV Diastolic Volume MOD 2C 47.1 cm??? LV Systolic Volume MOD 2C 27.5 cm??? LV Ejection Fraction MOD 2C 41.6 % LV Cardiac Index MOD 2C 829.1 cm???/min???m??? LV Diastolic Length 2C 7.5 cm LV Systolic Length 2C 6.3 cm LA Volume 118.8 cm??? 18 - 58 / 22 - 52 cm??? LA Volume Index 50.7 cm???/m??? 16 - 28 cm???/m??? M-MODE Aortic Root Diameter MM 3.6 cm AV Cusp Separation MM 2.7 cm DOPPLER AV Peak Velocity 122.3 cm/s AV Peak Gradient 6.0 mmHg MV Area PHT 5.2 cm??? MV Deceleration Time 190.8 ms TR Peak Velocity 332.2 cm/s TR Peak Gradient 44.2 mmHg Right Ventricular Systolic Press 57.1 mmHg FINDINGS Left Ventricle Left ventricular ejection fraction is estimated at 40-45 %. Left ventricular cavity size normal. Moderately increased septal wall thickness. Right Ventricle Severe right ventricular dilatation. Severe pulmonary hypertension. Right ventricular systolic pressure estimated at 57 mm hg. Right Atrium Severe right atrial dilatation. No right atrial thrombus or mass seen. Left Atrium Severely increased left atrial diameter. Severely increased left atrial volume. Moderately increased left atrial area. Mitral Valve Mitral valve thickened. Mild mitral annular calcification. Trace to mild mitral regurgitation. Aortic Valve Trileaflet aortic valve. Thickened aortic valve without stenosis. No aortic regurgitation. Tricuspid Valve Structurally normal tricuspid valve. Mild tricuspid regurgitation. Pulmonic Valve Structurally normal pulmonic valve. Trace to mild pulmonic regurgitation. Pericardium No pericardial effusion. No pleural effusion. Aorta Normal size aortic root and proximal ascending aorta. CONCLUSIONS Diagnosis Acute shortness of breath Reduced LV systolic function ejection fraction 40-45% with severe right ventricular enlargement and severe pulmonary hypertension Severe left atrial enlargement Previewed by: Dr. Willie Marquez MD (Electronically Signed) Final Date: 24 January 2024 15:24
[2024-01-24 17:11] LABS: Glucose,Whole Blood 417 mg/dL (70-110)
[2024-01-24 21:19] LABS: Glucose,Whole Blood 449 mg/dL (70-110)
[2024-01-24] MEDS: INSULIN DETEMIR (LEVEMIR) 100 UNIT/ML SYR SQ SCH (21:34)
[2024-01-24 22:56] LABS: Glucose,Whole Blood 465 mg/dL (70-110)
[2024-01-24 22:56] LABS: Glucose,Whole Blood 479 mg/dL (70-110)
[2024-01-24 23:41] LABS: Glucose,Whole Blood 444 mg/dL (70-110)
[2024-01-25] MEDS: INSULIN ASPART (NovoLOG) 100 UNIT/ML VIAL SQ ONE (00:18)
--- NOTE | 2024-01-25 05:38 | P.HPIM ---
History of Present Illness H&P Date: 01/23/24 HISTORY OF PRESENT ILLNESS: 73-year-old male with active medical history of atrial fibrillation, CAD, congestive heart failure, hypertension, hyperlipidemia, benign prostatic hypertrophy, lymphedema, osteoarthritis, PVD, sleep apnea, chronic kidney disease, lymphedema, ulcer and nonhealing wound of both lower extremity, post left above-knee amputation was waiting to go for right knee amputation as well. The patient had Last surgical intervention on October 27, 2023 with the hospital October 28, 2023 was scheduled coming back to the hospital in the next 2 weeks for the right leg amputation. He was transferred to [facility] emergency department from [facility] because of significant shortness of breath with dyspnea and congestion with cough productive phlegm has not wear his CPAP last few nights which makes him slightly red more congested also patient developed to have slight nausea and vomiting he has been wearing 2 L O2 on more regular basis but pulse ox become lower on oxygen. Also was running slightly with low-grade temperature and chills. Testing at [facility] with COVID along with influenza were negative. In the having chest x-ray which shows significant decreased lung volume with limited inspiration with right lower lobe pneumonia and infiltrate. Original blood test showing lactic acid 2.4, blood sugars mildly elevated normal kidney function slightly with elevated alk phos with normal proBNP normal troponin digoxin 0.7 pulmonary culture with influenza AB RSV and COVID are all negative. White blood cell was only 6300 with anemia has improved compared to his last admission. The patient was diagnosed with right lower lobe pneumonia aspiration most likely started on azithromycin along with Rocephin will continue O2 admit patient to [facility] with updraft and current management. REVIEW OF SYSTEMS: CONSTITUTIONAL: Well-developed mild respiratory distress looks slightly dyspneic.. EYES: No icterus sclerae, no conjunctivitis. EARS, NOSE, MOUTH, THROAT, and FACE: No sore throat, lymphadenopathy, carotid bruits or deformity. RESPIRATORY: Positive shortness of breath with mild cough and wheezes with productive phlegm. CARDIOVASCULAR: Positive PND orthopnea palpitation with history of A-fib and cardiomyopathy. GASTROINTESTINAL: No Abd pain, Nausea or vomiting, no Diarrhea or constipation, No GI Bleed, no distention or masses. GENITOURINARY: Recurrent UTI with BPH and incontinence. INTEGUMENT/BREAST: Negative for any muscular injury with mild osteoarthritis.. Post left-sided above-knee amputation HEMATOLOGIC/LYMPHATIC: History of anemia with no bleeding disorders. MUSCULOSKELTAL: Generalized muscle and joint pain. Post above-knee amputation of the left side with slight nonhealing ulcer on the right side. NEURLOGICAL: No LOC, Sz or syncope, blurred vision dizziness or abnormality.. BEHAVIORAL/PSYCH: Negative. ENDOCRINE: Negative. PHYSICAL EXAMINATION: General Appearance: Alert, cooperative, mildly dyspneic and mild distress. Neck HEENT: Supple, no lymphadenopathy, no thyroid enlargement, no carotid bruits. Lungs: Decreased breath sound bilaterally with fine rhonchi positive mild expiratory wheezes. And crackles in the right base. Chest Wall: Decreased expansion with deep inspiration no tenderness and no deformity was found on exam, no costochondral pain or discomfort. Heart: Irregular rate and rhythm, S1, S2 positive S3 positive systolic murmur. Back: Symmetric, no curvature, ROM normal, no CVA tenderness. Severe scoliosis and kyphosis. Abdomen: Soft, non-tender, bowel sounds active all four quadrants, no masses, no organomegaly. Extremities: Left above-knee amputation, on the right side still have nonhealing ulcer. Not able to feel any pulse on the right side. Pulses: No pulse. Skin: Skin color, texture, tugor normal, no rashes or lesions. Neurologic: Alert oriented x3 cranial nerves II through XII intact, no motor deficit, not able to do gait exam. ASSESSMENT AND PLAN: _Severe dyspnea and shortness of breath with mild respiratory failure: Secondary to acute pneumonia with mild COPD exacerbation: Admit patient to the hospital on antibiotics, might require a smaller dose of steroid continue mixup with drug treatment. _Right lower lobe pneumonia: Most likely aspiration with possible close community-acquired pneumonia: Patient will be on azithromycin and Rocephin will continue updraft treatment. _COPD with mild exacerbation: Continue O2, continue CPAP at nighttime continue DuoNeb along with Pulmicort smaller dose of steroid with Solu-Medrol 40 mg every 8 hours will be helpful. _Post left above-knee amputation secondary to severe PAD and nonhealing infected multiple ulcer, has done very well since continue current management. _Severe PAD of right lower extremity: Will be going for amputation soon. _A-fib with RVR: Will hold off on Eliquis for now but continue metoprolol titrate 50 mg twice a day feeling the pulse under 80 beats per minutes. _Hypertension: Remain on metoprolol and amlodipine along with Diuretics; his amlodipine should be probably switch eventually to ARB. Blood pressure has been stable and under control. _Gout: With no flareup remain on allopurinol 300 mg daily. _Iron deficiency anemia: Continue multivitamin iron supplement. _Severe nonischemic cardiomyopathy has been on medical management remain on spironolactone, metoprolol, isosorbide, furosemide and digoxin. Still seen cardiology echocardiogram Will be repeated. _Type 2 diabetes: Remain on Lantus 10 units at bedtime along with Humalog 10 units plus sliding scales. _Congestive heart failure without exacerbation mostly cardiomyopathy will continue metoprolol, furosemide and spironolactone will be beneficial to add ARB at some point if patient is able to tolerate it. _Chronic kidney disease: Was mostly stage II has been doing much better on hydration. _Chronic pain syndrome: Has been on hydrocodone_10 mg every 6 hours continues smaller dose of Lyrica or gabapentin as well. _BPH: Resume Flomax watch for any urinary retention. _GI prophylaxis: Continue patient on Pepcid 20 mg daily. _DVT prophylaxis: Resume Eliquis as soon as he can. CODE STATUS: Full code. Admit patient to the inpatient service for more than 2 night stay. Past Medical History Past Medical History: Atrial Fibrillation, Heart Failure, COPD, Diabetes Mellitus, Hypertension, Osteoarthritis (OA), Pneumonia, Prostate Disorder, Renal Disease, Sleep Apnea/CPAP/BIPAP, Vascular Disorder Additional Past Medical History / Comment(s): Nonischemic cardiomyopathy, cardiac valve disease, bronchitis, JIMMIE with Cpap and O2 at 2L at hs, past decreased renal function, arthritis bilateral hands/knees, gout bilateral feet, numbness bilateral legs/feet, carpal tunnel syndrome bilaterally, bilateral hand tremors, nonhealing bilateral lower leg wounds/cellulitis, varicosities, lower leg/pedal edema, PVD, BPH. non hemorrahgic anemia. wound care MWF, wounds bleed. Fatty liver disease. History of Any Multi-Drug Resistant Organisms: MRSA Date of last positivie culture/infection: 12/23/21 MDRO Source:: Right Leg Past Surgical History: Heart Catheterization Additional Past Surgical History / Comment(s): Split thickness skin graft to L leg, bronchoscopy, cyst and partial jaw removed/has screws, oral surgery age 8- too many teeth. cataracts bilaterallly. Left BKA in 10/2023 Past Anesthesia/Blood Transfusion Reactions: Previous Problems w/ Anesthesia Additional Past Anesthesia/Blood Transfusion Reaction / Comment(s): STATED DURING BRONCH STOPPED BREATHING, (brochoscopy done at [facility]-record on chart) Past Psychological History: Anxiety Additional Psychological History / Comment(s): Pt resides at [facility]. Unable to walk at this time. Wears CPAP at . Smoking Status: Former smoker Past Alcohol Use History: None Reported Additional Past Alcohol Use History / Comment(s): Pt started smoking cigars on occasion in 1981 and quit in 2019 Past Drug Use History: None Reported - Past Family History Father Family Medical History: Dementia, Eye Disorder Additional Family Medical History / Comment(s): MACULAR DEGENERATION Mother Family Medical History: Diabetes Mellitus, Eye Disorder, Vascular Disorder Additional Family Medical History / Comment(s): ANEURYSMS, CATARACTS. . Khadra @ [facility] not aware family hx. pt's daughter had no imput. Medications and Allergies Home Medications Medication Instructions Recorded Confirmed Type Isosorbide Mononitrate ER [Imdur] 30 mg PO HS 04/11/14 01/23/24 History Tamsulosin HCl [Flomax] 0.4 mg PO HS 04/11/14 01/23/24 History allopurinoL [Zyloprim] 300 mg PO HS 03/03/16 01/23/24 History Digoxin [Lanoxin] 125 mcg PO DAILY@0600 06/09/18 01/23/24 History Magnesium Oxide 400 mg PO HS 12/29/20 01/23/24 History Ferrous Sulfate [Iron (65 MG 325 mg PO BID@0800,2100 03/20/21 01/23/24 History Elemental)] Na Phos,M-B/Na Phos,Di-Ba [Fleet 133 ml RECTAL DAILY PRN 03/20/21 01/23/24 History Adult] bisacodyL [Dulcolax] 10 mg RECTAL DAILY PRN 03/20/21 01/23/24 History Acetaminophen Tab [Tylenol] 650 mg PO TID PRN 08/16/21 01/23/24 History Magnesium Hydroxide [Milk of 7,200 mg PO Q2D PRN 08/16/21 01/23/24 History Magnesia Concentrate] guaiFENesin [guaiFENesin Oral 200 mg PO Q4H PRN 08/16/21 01/23/24 History Solution] Sennosides/Docusate Sodium [Senna 1 tab PO Q12HR@0800,2100 11/04/21 01/23/24 History Plus 8.6-50 mg Tablet] INSULIN LISPRO (HumaLOG) [humaLOG] See Protocol SQ AC-TID 11/13/22 01/23/24 History Loperamide HCl [Imodium A-D] 4 mg PO BID PRN 11/13/22 01/23/24 History Multivitamins, Thera [Multivitamin 1 tab PO DAILY@0800 11/13/22 01/23/24 History (formulary)] Ondansetron [Zofran] 4 mg PO Q8HR PRN 11/13/22 01/23/24 History Spironolactone [Aldactone] 25 mg PO BID@0800,1700 11/13/22 01/23/24 History Apixaban [Eliquis] 2.5 mg PO BID@0800,1700 10/25/23 01/23/24 History Furosemide [Lasix] 40 mg PO DAILY@0800 10/25/23 01/23/24 History Insulin Glargine [Lantus Vial] 10 units SQ HS 10/25/23 01/23/24 History Ipratropium-Albuterol Nebulize 3 ml INHALATION RT-QID PRN 10/25/23 01/23/24 History [Duoneb 0.5 mg-3 mg/3 ml Soln] Midodrine [ProAmatine] 10 mg PO TID@0700,1100,1630 10/25/23 01/23/24 History Gabapentin [Neurontin] 100 mg PO Q8HR@0600,1400,2200 01/23/24 01/23/24 History HYDROcodone/APAP 10-325MG [[place] 1 tab PO Q6H 01/23/24 01/23/24 History 10-325] Hola Packet 1 packet PO BID@0800,1700 01/23/24 01/23/24 History Liquacel 30 ml PO BID@0800,1700 01/23/24 01/23/24 History Metoprolol Tartrate [Lopressor] 50 mg PO BID@0800,1700 01/23/24 01/23/24 History Allergies Allergy/AdvReac Type Severity Reaction Status Date / Time No Known Allergies Allergy Verified 01/23/24 16:08 Physical Exam Vitals: Vital Signs Temp Pulse Resp BP Pulse Ox 01/23/24 20:25 104 H 18 126/84 96 01/23/24 16:36 102 H 18 137/94 97 01/23/24 14:47 98 F 98 20 143/99 97 Intake and Output 01/23/24 01/23/24 01/23/24 06:59 14:59 22:59 Other: Weight 108.862 kg 108.862 kg Results CBC & Chem 7: 01/23/24 15:11 01/23/24 15:11 Labs: Abnormal Lab Results - Last 24 Hours (Table) 01/23/24 01/23/24 01/23/24 Range/Units 15:11 15:11 15:11 RBC 4.06 L (4.30-5.90) m/uL Hgb 12.7 L (13.0-17.5) gm/dL MCV 100.6 H (80.0-100.0) fL Lymphocytes # 0.5 L (1.0-4.8) k/uL BUN 39 H (9-20) mg/dL Glucose 292 H (74-99) mg/dL POC Glucose (mg/dL) (70-110) mg/dL Plasma Lactic Acid Tavares 2.4 H* (0.7-2.0) mmol/L Alkaline Phosphatase 213 H (38-126) U/L 01/23/24 01/23/24 Range/Units 19:49 20:32 RBC (4.30-5.90) m/uL Hgb (13.0-17.5) gm/dL MCV (80.0-100.0) fL Lymphocytes # (1.0-4.8) k/uL BUN (9-20) mg/dL Glucose (74-99) mg/dL POC Glucose (mg/dL) 247 H (70-110) mg/dL Plasma Lactic Acid Tavares 2.4 H* (0.7-2.0) mmol/L Alkaline Phosphatase (38-126) U/L Thrombosis Risk Factor Assmnt - Choose All That Apply Any of the Below Risk Factors Present?: Yes Each Factor Represents 1 point: Medical pt on bed rest, Obesity (BMI >25) Other Risk Factors: Yes Each Risk Factor Represents 2 Points: Age 61-74 years, Patient confined to bed Thrombosis Risk Factor Assessment Total Risk Factor Score: 6 Thrombosis Risk Factor Assessment Level: High Risk
--- NOTE | 2024-01-25 05:45 | P.PN ---
Subjective Progress Note Date: 01/24/24 HISTORY OF PRESENT ILLNESS: 73-year-old male with active medical history of atrial fibrillation, CAD, congestive heart failure, hypertension, hyperlipidemia, benign prostatic hyper trophy, lymphedema, osteoarthritis, PVD, sleep apnea, chronic kidney disease, lymphedema, ulcer and nonhealing wound of both lower extremity, post left above- knee amputation was waiting to go for right knee amputation as well. The patient had Last surgical intervention on October 27, 2023 with the hospital October 28, 2023 was scheduled coming back to the hospital in the next 2 weeks for the right leg amputation. He was transferred to [facility] emergency department from [facility] because of significant shortness of breath with dyspnea and congestion with cough productive phlegm has not wear his CPAP last few nights which makes him slightly red more congested also patient developed to have slight nausea and vomiting he has been wearing 2 L O2 on more regular basis but pulse ox become lower on oxygen. Also was running slightly with low-grade temperature and chills. Testing at [facility] with COVID along with influenza were negative. In the having chest x-ray which shows significant decreased lung volume with limited inspiration with right lower lobe pneumonia and infiltrate. Original blood test showing lactic acid 2.4, blood sugars mildly elevated normal kidney function sli ghtly with elevated alk phos with normal proBNP normal troponin digoxin 0.7 pulmonary culture with influenza AB RSV and COVID are all negative. White blood cell was only 6300 with anemia has improved compared to his last admission. The patient was diagnosed with right lower lobe pneumonia aspiration most likely started on azithromycin along with Rocephin will continue O2 admit patient to the hospital with updraft and current management. : The patient was continued on antibiotics for treatment of his pneumonia seen vascular his right leg gangrenous change is quite severe with quite a bit of drainage and more infectious than before, will continue current antibiotic that might help to expand the coverage into product like Unasyn and vancomycin for better coverage for the leg. The final decision of amputation is made. Original plan that patient was scheduled for amputation on this week which probably the plan can be carried out at this point. Will request cardiology consultation for the severity of the nonischemic cardiomyopathy for medical clearance and prepare for the amputation on also will ask infectious disease was seen patient will continue with the current treatment for pneumonia along with right leg nonhealing infection and cellulitis. REVIEW OF SYSTEMS: CONSTITUTIONAL: Well-developed mild respiratory distress looks slightly dyspneic.. EYES: No icterus sclerae, no conjunctivitis. EARS, NOSE, MOUTH, THROAT, and FACE: No sore throat, lymphadenopathy, carotid bruits or deformity. RESPIRATORY: Positive shortness of breath with mild cough and wheezes with productive phlegm. CARDIOVASCULAR: Positive PND orthopnea palpitation with history of A-fib and cardiomyopathy. GASTROINTESTINAL: No Abd pain, Nausea or vomiting, no Diarrhea or constipation, No GI Bleed, no distention or masses. GENITOURINARY: Recurrent UTI with BPH and incontinence. INTEGUMENT/BREAST: Negative for any muscular injury with mild osteoarthritis.. Post left-sided above-knee amputation HEMATOLOGIC/LYMPHATIC: History of anemia with no bleeding disorders. MUSCULOSKELTAL: Generalized muscle and joint pain. Post above-knee amputation of the left side with slight nonhealing ulcer on the right side. NEURLOGICAL: No LOC, Sz or syncope, blurred vision dizziness or abnormality.. BEHAVIORAL/PSYCH: Negative. ENDOCRINE: Negative. PHYSICAL EXAMINATION: General Appearance: Alert, cooperative, mildly dyspneic and mild distress. Neck HEENT: Supple, no lymphadenopathy, no thyroid enlargement, no carotid bruits. Lungs: Decreased breath sound bilaterally with fine rhonchi positive mild expiratory wheezes. And crackles in the right base. Chest Wall: Decreased expansion with deep inspiration no tenderness and no deformity was found on exam, no costochondral pain or discomfort. Heart: Irregular rate and rhythm, S1, S2 positive S3 positive systolic murmur. Back: Symmetric, no curvature, ROM normal, no CVA tenderness. Severe scoliosis and kyphosis. Abdomen: Soft, non-tender, bowel sounds active all four quadrants, no masses, no organomegaly. Extremities: Left above-knee amputation, on the right side still have nonhealing ulcer. Not able to feel any pulse on the right side. Pulses: No pulse. Skin: Skin color, texture, tugor normal, no rashes or lesions. Neurologic: Alert oriented x3 cranial nerves II through XII intact, no motor deficit, not able to do gait exam. ASSESSMENT AND PLAN: _Severe dyspnea and shortness of breath with mild respiratory failure: Secondary to acute pneumonia with mild COPD exacerbation: Was initiated steroid systemic along with antibiotics.. _Right lower lobe pneumonia: Most likely aspiration with possible close community-acquired pneumonia: Will switch antibiotic management to probably vancomycin and Unasyn per infectious disease seen patient. _COPD with mild exacerbation: Continue O2, continue CPAP at nighttime continue DuoNeb along with Pulmicort smaller dose of steroid with Solu-Medrol 40 mg every 8 hours will be helpful. Continue oxygen titration the patient seems to do lit tle bit better with it so far. _Post left above-knee amputation secondary to severe PAD and nonhealing infected multiple ulcer, has done very well since continue current management. _Severe PAD of right lower extremity: With worsening gangrenous change along with worsening infection and cellulitis the original plan was for amputation on which should be able to carry on at this point. _A-fib with RVR: Will hold off on Eliquis for now but continue metoprolol titrate 50 mg twice a day feeling the pulse under 80 beats per minutes. _Hypertension: Remain on metoprolol and amlodipine along with Diuretics; his amlodipine should be probably switch eventually to ARB. Blood pressure has been stable and under control. _Gout: With no flareup remain on allopurinol 300 mg daily. _Iron deficiency anemia: Continue multivitamin iron supplement. _Severe nonischemic cardiomyopathy has been on medical management remain on spironolactone, metoprolol, isosorbide, furosemide and digoxin. Still seen cardiology echocardiogram Will be repeated. Request cardiology consultation for clearance. _Type 2 diabetes: Remain on Lantus 10 units at bedtime along with Humalog 10 units plus sliding scales. Blood sugar started going higher especially with the steroid will titrate Lantus or Levemir up to 15 to 20 units and continue originally NovoLog plus sliding scales coverage originally was started on 5 units AC meals which is not enough blood sugar still high especially with the steroid. _Congestive heart failure without exacerbation mostly cardiomyopathy will continue metoprolol, furosemide and spironolactone will be beneficial to add ARB at some point if patient is able to tolerate it. Will consult cardiology and prepare for his surgery for medical clearance as well. _Chronic kidney disease: Was mostly stage II has been doing much better on hydration. _Chronic pain syndrome: Has been on hydrocodone_10 mg every 6 hours continues smaller dose of Lyrica or gabapentin as well. _BPH: Resume Flomax watch for any urinary retention. Discussion: Patient was seen vascular and prepare for intervention for possible amputation of the right leg on we will continue current management with antibiotics consult cardiology for clearance and prepare for surgery probably for . Echocardiogram was ordered early. Objective - Vital Signs Vital signs: Vital Signs Temp 97.7 F 01/25/24 01:19 Pulse 96 01/25/24 01:19 Resp 20 01/25/24 01:19 BP 132/71 01/25/24 01:19 Pulse Ox 90 L 01/25/24 01:19 FiO2 Intake & Output 01/24/24 01/24/24 01/25/24 06:59 18:59 06:59 Weight 108.862 kg Other: Voiding Method Diaper # Voids 1 2 # Bowel Movements 1 - Labs CBC & Chem 7: 01/24/24 06:35 01/24/24 06:35 Labs: Abnormal Lab Results - Last 24 Hours (Table) 01/24/24 01/24/24 01/24/24 Range/Units 06:30 06:35 06:35 RBC 3.83 L (4.40-5.60) X 10*6/uL Hgb 12.0 L (13.0-17.0) g/dL MCV 104.7 H (80.0-97.0) FL MCHC 29.9 L (32.0-37.0) g/dL RDW 15.0 H (11.5-14.5) % BUN 40.8 H (9.0-27.0) mg/dL Est GFR (CKD-EPI) 59 L (>=60) BUN/Creatinine Ratio 31.38 H (12.00-20.00) Ratio Glucose 335 H (70-110) mg/dL POC Glucose (mg/dL) 291 H (70-110) mg/dL Calcium 8.6 L (8.7-10.3) mg/dL Alkaline Phosphatase 216 H (41-126) U/L Albumin 3.5 L (3.8-4.9) g/dL Albumin/Globulin Ratio 1.06 L (1.60-3.17) Ratio 01/24/24 01/24/24 01/24/24 Range/Units 11:00 17:09 21:16 RBC (4.40-5.60) X 10*6/uL Hgb (13.0-17.0) g/dL MCV (80.0-97.0) FL MCHC (32.0-37.0) g/dL RDW (11.5-14.5) % BUN (9.0-27.0) mg/dL Est GFR (CKD-EPI) (>=60) BUN/Creatinine Ratio (12.00-20.00) Ratio Glucose (70-110) mg/dL POC Glucose (mg/dL) 407 H 417 H 449 H (70-110) mg/dL Calcium (8.7-10.3) mg/dL Alkaline Phosphatase (41-126) U/L Albumin (3.8-4.9) g/dL Albumin/Globulin Ratio (1.60-3.17) Ratio 01/24/24 01/24/24 01/24/24 Range/Units 22:53 22:54 23:39 RBC (4.40-5.60) X 10*6/uL Hgb (13.0-17.0) g/dL MCV (80.0-97.0) FL MCHC (32.0-37.0) g/dL RDW (11.5-14.5) % BUN (9.0-27.0) mg/dL Est GFR (CKD-EPI) (>=60) BUN/Creatinine Ratio (12.00-20.00) Ratio Glucose (70-110) mg/dL POC Glucose (mg/dL) 479 H 465 H 444 H (70-110) mg/dL Calcium (8.7-10.3) mg/dL Alkaline Phosphatase (41-126) U/L Albumin (3.8-4.9) g/dL Albumin/Globulin Ratio (1.60-3.17) Ratio Microbiology - Last 24 Hours (Table) 01/23/24 20:15 Blood Culture - Preliminary Blood 01/23/24 20:30 Blood Culture - Preliminary Blood 01/23/24 17:26 Gram Stain - Preliminary Leg - Right Wound Culture - Preliminary Proteus mirabilis Presumptive MRSA
[2024-01-25 05:47] LABS: Glucose,Whole Blood 369 mg/dL (70-110)
[2024-01-25] MEDS: VANCOMYCIN 1,000 MG in SODIUM CHLORIDE 0.9% 250 ML IVPB STA (06:54)
[2024-01-25] MEDS ORDERED: INSULIN ASPART (NovoLOG) 100 UNIT/ML VIAL SQ SCH (07:30)
[2024-01-25] MEDS: INSULIN ASPART (NovoLOG) 100 UNIT/ML VIAL SQ SCH (08:01)
[2024-01-25] MEDS: VANCOMYCIN 1,500 MG in SODIUM CHLORIDE 0.9% 500 ML 500 ML IVPB ONE (08:04)
[2024-01-25] MEDS: INSULIN DETEMIR (LEVEMIR) 100 UNIT/ML SYR SQ SCH ×2 (09:40→22:14)
[2024-01-25] MEDS ORDERED: VANCOMYCIN IV PER PHARMACY 1 EACH MISC MISCELLANE PRN (10:15)
[2024-01-25] MEDS: DEXAMETHASONE SOD PHOSPHATE 4 MG/ML 1 ML VIAL IV ONE (12:02)
[2024-01-25] MEDS: ONDANSETRON 4 MG/2 ML VIAL IVP ONE (12:02)
[2024-01-25 12:03] LABS: Glucose,Whole Blood 449 mg/dL (70-110)
--- NOTE | 2024-01-25 12:30 | P.GSCN ---
History of Present Illness Consult date: 01/24/24 Reason for Consult: Right lower extremity wound Requesting physician: Josie Quintanilla History of present illness: This is a pleasant 73-year-old male known to Dr. Golden from vascular surgery with a history of chronic nonhealing wounds who is nonambulatory and has already undergone a previous left yugbj-ovq-tczv amputation on 10/27/2023 who presented to the emergency department from [facility] for shortness of breath. He has a past medical history including nonhealing wounds, atrial fibrillation on Eliquis, heart failure, COPD, diabetes mellitus, hypertension, osteoarthritis, pneumonia, prostate disorder, renal disease, coronary artery disease and sleep apnea. Apparently patient had not worn his CPAP the night before and then had woken up with some shortness of breath. He had a chest x-ray reporting chronic changes without evidence for acute pulmonary disease. He is admitted to medicine with vascular surgery on consult for right lower extremity wounds. He was tentatively scheduled next week for right kllpi-wmf-fyss amputation with Dr. Golden. Reportedly he had fever at [facility] however no reported fevers here. He is currently resting does not appear in any distress. There is foul odor from his wound. He has a left tqnht-lfw-rage amputation well-healed. Review of Systems A 14 point review systems was completed all pertinent positives and negatives as stated in the HPI. Past Medical History Past Medical History: Atrial Fibrillation, Heart Failure, COPD, Diabetes Mellitus, Hypertension, Osteoarthritis (OA), Pneumonia, Prostate Disorder, Renal Disease, Sleep Apnea/CPAP/BIPAP, Vascular Disorder Additional Past Medical History / Comment(s): Nonischemic cardiomyopathy, cardiac valve disease, bronchitis, JIMMIE with Cpap and O2 at 2L at , past decreased renal function, arthritis bilateral hands/knees, gout bilateral feet, numbness bilateral legs/feet, carpal tunnel syndrome bilaterally, bilateral hand tremors, nonhealing bilateral lower leg wounds/cellulitis, varicosities, lower leg/pedal edema, PVD, BPH. non hemorrahgic anemia. wound care MWF, wounds bleed. Fatty liver disease. History of Any Multi-Drug Resistant Organisms: MRSA Year Discovered:: 12/23/21 MDRO Source:: Right Leg Past Surgical History: Heart Catheterization Additional Past Surgical History / Comment(s): Split thickness skin graft to L leg, bronchoscopy, cyst and partial jaw removed/has screws, oral surgery age 8- too many teeth. cataracts bilaterallly. Left BKA in 10/2023 Past Anesthesia/Blood Transfusion Reactions: Previous Problems w/ Anesthesia Additional Past Anesthesia/Blood Transfusion Reaction / Comm: STATED DURING BRONCH STOPPED BREATHING, (brochoscopy done at [facility]-record on chart) Past Psychological History: Anxiety Additional Psychological History / Comment(s): Pt resides at [facility]. Unable to walk at this time. Wears CPAP at . Smoking Status: Former smoker Past Alcohol Use History: None Reported Additional Past Alcohol Use History / Comment(s): Pt started smoking cigars on occasion in 1981 and quit in 2019 Past Drug Use History: None Reported - Past Family History Father Family Medical History: Dementia, Eye Disorder Additional Family Medical History / Comment(s): MACULAR DEGENERATION Mother Family Medical History: Diabetes Mellitus, Eye Disorder, Vascular Disorder Additional Family Medical History / Comment(s): ANEURYSMS, CATARACTS. . Khadra @ [facility] not aware family hx. pt's daughter had no imput. Medications and Allergies Home Medications Medication Instructions Recorded Confirmed Type Isosorbide Mononitrate ER [Imdur] 30 mg PO HS 04/11/14 01/23/24 History Tamsulosin HCl [Flomax] 0.4 mg PO HS 04/11/14 01/23/24 History allopurinoL [Zyloprim] 300 mg PO HS 03/03/16 01/23/24 History Digoxin [Lanoxin] 125 mcg PO DAILY@0600 06/09/18 01/23/24 History Magnesium Oxide 400 mg PO HS 12/29/20 01/23/24 History Ferrous Sulfate [Iron (65 MG 325 mg PO BID@0800,2100 03/20/21 01/23/24 History Elemental)] Na Phos,M-B/Na Phos,Di-Ba [Fleet 133 ml RECTAL DAILY PRN 03/20/21 01/23/24 History Adult] bisacodyL [Dulcolax] 10 mg RECTAL DAILY PRN 03/20/21 01/23/24 History Acetaminophen Tab [Tylenol] 650 mg PO TID PRN 08/16/21 01/23/24 History Magnesium Hydroxide [Milk of 7,200 mg PO Q2D PRN 08/16/21 01/23/24 History Magnesia Concentrate] guaiFENesin [guaiFENesin Oral 200 mg PO Q4H PRN 08/16/21 01/23/24 History Solution] Sennosides/Docusate Sodium [Senna 1 tab PO Q12HR@0800,2100 11/04/21 01/23/24 History Plus 8.6-50 mg Tablet] INSULIN LISPRO (HumaLOG) [humaLOG] See Protocol SQ AC-TID 11/13/22 01/23/24 History Loperamide HCl [Imodium A-D] 4 mg PO BID PRN 11/13/22 01/23/24 History Multivitamins, Thera [Multivitamin 1 tab PO DAILY@0800 11/13/22 01/23/24 History (formulary)] Ondansetron [Zofran] 4 mg PO Q8HR PRN 11/13/22 01/23/24 History Spironolactone [Aldactone] 25 mg PO BID@0800,1700 11/13/22 01/23/24 History Apixaban [Eliquis] 2.5 mg PO BID@0800,1700 10/25/23 01/23/24 History Furosemide [Lasix] 40 mg PO DAILY@0800 10/25/23 01/23/24 History Insulin Glargine [Lantus Vial] 10 units SQ HS 10/25/23 01/23/24 History Ipratropium-Albuterol Nebulize 3 ml INHALATION RT-QID PRN 10/25/23 01/23/24 History [Duoneb 0.5 mg-3 mg/3 ml Soln] Midodrine [ProAmatine] 10 mg PO TID@0700,1100,1630 10/25/23 01/23/24 History Gabapentin [Neurontin] 100 mg PO Q8HR@0600,1400,2200 01/23/24 01/23/24 History HYDROcodone/APAP 10-325MG [[place] 1 tab PO Q6H 01/23/24 01/23/24 History 10-325] Hola Packet 1 packet PO BID@0800,1700 01/23/24 01/23/24 History Liquacel 30 ml PO BID@0800,1700 01/23/24 01/23/24 History Metoprolol Tartrate [Lopressor] 50 mg PO BID@0800,1700 07/29/24 07/29/24 History Allergies Allergy/AdvReac Type Severity Reaction Status Date / Time No Known Allergies Allergy Verified 01/23/24 16:08 Surgical - Exam Vital Signs Temp Pulse Resp BP Pulse Ox 98 F 98 20 143/99 97 01/23/24 14:47 01/23/24 14:47 01/23/24 14:47 01/23/24 14:47 01/23/24 14:47 General appearance: The patient is alert, oriented, appears in no acute distress. Obese. HET: Head is normocephalic and atraumatic. Pupils are equal and reactive. Neck: Supple. Heart: Regular. Lungs: Equal expansion, normal respiratory effort. Abdomen: Soft, nontender, nondistended. Extremities: Left gwmlt-iaf-cpyi amputation, well-healed. Right lower extremity with multiple wounds on vu and calf, with purulent drainage, odor and slough tissue. Neurological: Alert and oriented. Results - Labs 01/24/24 06:35 01/24/24 06:35 Abnormal Lab Results - Last 24 Hours (Table) 01/23/24 01/23/24 01/23/24 Range/Units 15:11 15:11 15:11 RBC 4.06 L (4.30-5.90) m/uL Hgb 12.7 L (13.0-17.5) gm/dL MCV 100.6 H (80.0-100.0) fL Lymphocytes # 0.5 L (1.0-4.8) k/uL BUN 39 H (9-20) mg/dL Glucose 292 H (74-99) mg/dL POC Glucose (mg/dL) (70-110) mg/dL Plasma Lactic Acid Tavares 2.4 H* (0.7-2.0) mmol/L Alkaline Phosphatase 213 H (38-126) U/L 01/23/24 01/23/24 01/24/24 Range/Units 19:49 20:32 06:30 RBC (4.30-5.90) m/uL Hgb (13.0-17.5) gm/dL MCV (80.0-100.0) fL Lymphocytes # (1.0-4.8) k/uL BUN (9-20) mg/dL Glucose (74-99) mg/dL POC Glucose (mg/dL) 247 H 291 H (70-110) mg/dL Plasma Lactic Acid Tavares 2.4 H* (0.7-2.0) mmol/L Alkaline Phosphatase (38-126) U/L Diabetes panel 01/23/24 Range/Units 15:11 Sodium 137 (137-145) mmol/L Potassium 4.7 (3.5-5.1) mmol/L Chloride 103 (98-107) mmol/L Carbon Dioxide 24 (22-30) mmol/L BUN 39 H (9-20) mg/dL Creatinine 0.87 (0.66-1.25) mg/dL Glucose 292 H (74-99) mg/dL Calcium 8.8 (8.4-10.2) mg/dL AST 35 (17-59) U/L ALT 26 (4-49) U/L Alkaline Phosphatase 213 H (38-126) U/L Total Protein 7.0 (6.3-8.2) g/dL Albumin 3.6 (3.5-5.0) g/dL Calcium panel 01/23/24 Range/Units 15:11 Calcium 8.8 (8.4-10.2) mg/dL Albumin 3.6 (3.5-5.0) g/dL Pituitary panel 01/23/24 Range/Units 15:11 Sodium 137 (137-145) mmol/L Potassium 4.7 (3.5-5.1) mmol/L Chloride 103 (98-107) mmol/L Carbon Dioxide 24 (22-30) mmol/L BUN 39 H (9-20) mg/dL Creatinine 0.87 (0.66-1.25) mg/dL Glucose 292 H (74-99) mg/dL Calcium 8.8 (8.4-10.2) mg/dL Adrenal panel 01/23/24 Range/Units 15:11 Sodium 137 (137-145) mmol/L Potassium 4.7 (3.5-5.1) mmol/L Chloride 103 (98-107) mmol/L Carbon Dioxide 24 (22-30) mmol/L BUN 39 H (9-20) mg/dL Creatinine 0.87 (0.66-1.25) mg/dL Glucose 292 H (74-99) mg/dL Calcium 8.8 (8.4-10.2) mg/dL Total Bilirubin 0.9 (0.2-1.3) mg/dL AST 35 (17-59) U/L ALT 26 (4-49) U/L Alkaline Phosphatase 213 H (38-126) U/L Total Protein 7.0 (6.3-8.2) g/dL Albumin 3.6 (3.5-5.0) g/dL Assessment and Plan Assessment: 1. Right lower extremity nonhealing wounds 2. Nonambulatory 3. Shortness of breath 4. COPD 5. Sleep apnea on BiPAP 6. Atrial fibrillation on Eliquis 7. Coronary artery disease Plan: 1. Hold Eliquis 2. Will tentatively plan for right ctvqo-dwc-rrxb amputation on with Dr. Whitten 3. Patient will need medical clearance for right kblvt-gby-jokc amputation 4. Wound cultures ordered 5. Patient currently on IV antibiotics 6. Rest of medical management per primary medical team Thank you for this consultation, we will continue to follow. The impression and plan of care has been dictated as directed. Dr. Wright I performed a history and examination of this patient, discussed the same with the dictator. I agree with the dictator's note ,documented as a scribe. Any additional findings or plans will be noted.
--- NOTE | 2024-01-25 12:33 | P.PN ---
Subjective Progress Note Date: 01/25/24 Principal diagnosis: Right lower extremity nonhealing wound Patient seen and examined today as a follow-up. No acute changes through the night. No complaints from patient. Does have pain in that right leg. He has been afebrile. On IV antibiotics. Objective - Vital Signs Vital signs: Vital Signs Temp 98.2 F 01/25/24 06:49 Pulse 90 01/25/24 09:10 Resp 18 01/25/24 06:49 BP 132/78 01/25/24 06:49 Pulse Ox 96 01/25/24 09:03 FiO2 Intake & Output 01/24/24 01/25/24 01/25/24 18:59 06:59 18:59 Other: Voiding Method Diaper # Voids 1 2 1 - Exam General appearance: The patient is alert, oriented, appears in no acute distress . Obese. HET: Head is normocephalic and atraumatic. Pupils are equal and reactive. Neck: Supple. Heart: Regular. Lungs: Equal expansion, normal respiratory effort. Abdomen: Soft, nontender, nondistended. Extremities: Left dtnig-cah-dvka amputation well-healed. Right lower extremity with dressing in place. Neurological: No focal deficits. Strength and sensation are grossly intact. - Labs CBC & Chem 7: 01/24/24 06:35 01/24/24 06:35 Labs: Abnormal Lab Results - Last 24 Hours (Table) 01/24/24 01/24/24 01/24/24 Range/Units 17:09 21:16 22:53 POC Glucose (mg/dL) 417 H 449 H 479 H (70-110) mg/dL 01/24/24 01/24/24 01/25/24 Range/Units 22:54 23:39 05:45 POC Glucose (mg/dL) 465 H 444 H 369 H (70-110) mg/dL 01/25/24 Range/Units 12:01 POC Glucose (mg/dL) 449 H (70-110) mg/dL Microbiology - Last 24 Hours (Table) 01/24/24 15:19 Gram Stain - Preliminary Sputum Sputum Culture - Preliminary 01/23/24 20:15 Blood Culture - Preliminary Blood 01/23/24 20:30 Blood Culture - Preliminary Blood 01/23/24 17:26 Gram Stain - Preliminary Leg - Right Wound Culture - Preliminary Proteus mirabilis Presumptive MRSA Assessment and Plan Assessment: 1. Right lower extremity nonhealing wounds 2. Nonambulatory 3. Shortness of breath 4. COPD 5. Sleep apnea on BiPAP 6. Atrial fibrillation on Eliquis 7. Coronary artery disease Plan: 1. Hold Eliquis 2. Tentative plan for right tjvrq-uwr-xyjn amputation on with Dr. Whitten 3. Patient is medically cleared by his PCP Dr. Muro, still awaiting cardiac clearance 4. Wound cultures ordered 5. Patient currently on IV antibiotics 6. N.p.o. after midnight 7. Await recommendations from cardiology 8. Rest of medical management per primary medical team Thank you for this consultation, we will continue to follow. The impression and plan of care has been dictated as directed. Dr. Golden I performed a history and examination of this patient, discussed the same with the dictator. I agree with the dictator's note ,documented as a scribe. Any additional findings or plans will be noted.
[2024-01-25 16:53] LABS: Glucose,Whole Blood 457 mg/dL (70-110)
[2024-01-25 20:39] LABS: Glucose,Whole Blood 384 mg/dL (70-110)
[2024-01-26] MEDS: VANCOMYCIN 1,750 MG in SODIUM CHLORIDE 0.9% 500 ML 500 ML IVPB SCH ×2 (04:36→21:14)
[2024-01-26] MEDS: methylPREDNISolone SOD SUCCI 40 MG/ML 1 ML VIAL IV SCH ×2 (04:51→18:26)
[2024-01-26 05:59] LABS: Glucose,Whole Blood 333 mg/dL (70-110)
--- NOTE | 2024-01-26 06:17 | P.PN ---
Subjective Progress Note Date: 01/25/24 HISTORY OF PRESENT ILLNESS: 73-year-old male with active medical history of atrial fibrillation, CAD, congestive heart failure, hypertension, hyperlipidemia, benign prostatic hyper trophy, lymphedema, osteoarthritis, PVD, sleep apnea, chronic kidney disease, lymphedema, ulcer and nonhealing wound of both lower extremity, post left above- knee amputation was waiting to go for right knee amputation as well. The patient had Last surgical intervention on October 27, 2023 with the hospital October 28, 2023 was scheduled coming back to the hospital in the next 2 weeks for the right leg amputation. He was transferred to [facility] emergency department from [facility] because of significant shortness of breath with dyspnea and congestion with cough productive phlegm has not wear his CPAP last few nights which makes him slightly red more congested also patient developed to have slight nausea and vomiting he has been wearing 2 L O2 on more regular basis but pulse ox become lower on oxygen. Also was running slightly with low-grade temperature and chills. Testing at [facility] with COVID along with influenza were negative. In the having chest x-ray which shows significant decreased lung volume with limited inspiration with right lower lobe pneumonia and infiltrate. Original blood test showing lactic acid 2.4, blood sugars mildly elevated normal kidney function sli ghtly with elevated alk phos with normal proBNP normal troponin digoxin 0.7 pulmonary culture with influenza AB RSV and COVID are all negative. White blood cell was only 6300 with anemia has improved compared to his last admission. The patient was diagnosed with right lower lobe pneumonia aspiration most likely started on azithromycin along with Rocephin will continue O2 admit patient to the hospital with updraft and current management. 01/24/2024: The patient was continued on antibiotics for treatment of his pneumonia seen vascular his right leg gangrenous change is quite severe with quite a bit of drainage and more infectious than before, will continue current antibiotic that might help to expand the coverage into product like Unasyn and vancomycin for better coverage for the leg. The final decision of amputation is made. Original plan that patient was scheduled for amputation on this week which probably the plan can be carried out at this point. Will request cardiology consultation for the severity of the nonischemic cardiomyopathy for medical clearance and prepare for the amputation on also will ask infectious disease was seen patient will continue with the current treatment for pneumonia along with right leg nonhealing infection and cellulitis. 01/25/2024: Continue current antibiotics, patient be seen infectious disease, also consultation for cardiology was made for clearance. As of now patient scheduled for above-knee amputation of the right side tomorrow we will continue current management. His dyspnea and shortness of breath has improved significantly continue aggressive treatment for COPD, echocardiogram was done and showed slightly decreased ejection fraction compatible with his cardiomyopathy from before the patient again be seen in cardiology for clearance before his surgery. His blood sugar continue to be quite bit high with his Solu-Medrol will reduce Solu-Medrol to 40 mg twice a day for now continue aggressive management with long and short term insulin. Control blood sugar. REVIEW OF SYSTEMS: CONSTITUTIONAL: Well-developed mild respiratory distress looks slightly dyspneic.. EYES: No icterus sclerae, no conjunctivitis. EARS, NOSE, MOUTH, THROAT, and FACE: No sore throat, lymphadenopathy, carotid bruits or deformity. RESPIRATORY: Positive shortness of breath with mild cough and wheezes with productive phlegm. CARDIOVASCULAR: Positive PND orthopnea palpitation with history of A-fib and cardiomyopathy. GASTROINTESTINAL: No Abd pain, Nausea or vomiting, no Diarrhea or constipation, No GI Bleed, no distention or masses. GENITOURINARY: Recurrent UTI with BPH and incontinence. INTEGUMENT/BREAST: Negative for any muscular injury with mild osteoarthritis.. Post left-sided above-knee amputation HEMATOLOGIC/LYMPHATIC: History of anemia with no bleeding disorders. MUSCULOSKELTAL: Generalized muscle and joint pain. Post above-knee amputation of the left side with slight nonhealing ulcer on the right side. NEURLOGICAL: No LOC, Sz or syncope, blurred vision dizziness or abnormality.. BEHAVIORAL/PSYCH: Negative. ENDOCRINE: Negative. PHYSICAL EXAMINATION: General Appearance: Alert, cooperative, mildly dyspneic and mild distress. Neck HEENT: Supple, no lymphadenopathy, no thyroid enlargement, no carotid bruits. Lungs: Decreased breath sound bilaterally with fine rhonchi positive mild expiratory wheezes. And crackles in the right base. Chest Wall: Decreased expansion with deep inspiration no tenderness and no deformity was found on exam, no costochondral pain or discomfort. Heart: Irregular rate and rhythm, S1, S2 positive S3 positive systolic murmur. Back: Symmetric, no curvature, ROM normal, no CVA tenderness. Severe scoliosis and kyphosis. Abdomen: Soft, non-tender, bowel sounds active all four quadrants, no masses, no organomegaly. Extremities: Left above-knee amputation, on the right side still have nonhealing ulcer. Not able to feel any pulse on the right side. Pulses: No pulse. Skin: Skin color, texture, tugor normal, no rashes or lesions. Neurologic: Alert oriented x3 cranial nerves II through XII intact, no motor deficit, not able to do gait exam. ASSESSMENT AND PLAN: _Severe dyspnea and shortness of breath with mild respiratory failure: Secondary to acute pneumonia with mild COPD exacerbation: Continue aggressive management with updraft treatment along with Solu-Medrol. _Right lower lobe pneumonia: Most likely aspiration with possible close community-acquired pneumonia: Will switch antibiotic management to probably vancomycin and Unasyn per infectious disease seen patient. _COPD with mild exacerbation: Continue aggressive management with O2, PAP and continue DuoNeb and Pulmicort along with Solu-Medrol. _Post left above-knee amputation secondary to severe PAD and nonhealing infected multiple ulcer, has done very well since continue current management. _Severe PAD of right lower extremity: With worsening gangrenous change along with worsening infection and cellulitis the original plan was for amputation on which should be able to carry on at this point. _A-fib with RVR: Will hold off on Eliquis for now but continue metoprolol titrate 50 mg twice a day feeling the pulse under 80 beats per minutes. _Hypertension: Remain on metoprolol and amlodipine along with Diuretics; his amlodipine should be probably switch eventually to ARB. Blood pressure has been stable and under control. _Gout: With no flareup remain on allopurinol 300 mg daily. _Iron deficiency anemia: Continue multivitamin iron supplement. _Severe nonischemic cardiomyopathy has been on medical management, his echocardiogram did not change from before still showing slight decrease in ejection fraction patient will remain on spironolactone, metoprolol, isosorbide, furosemide and digoxin. Still seen cardiology . Request cardiology consulta tion for clearance. _Type 2 diabetes: Blood sugar has not been well-controlled been on Solu-Medrol titrate his Levemir up to 25 units twice a day patient is up to 15 units of Humalog AC meals plus sliding scales will reduce Solu-Medrol to 40 mg twice a day might help will continue to titrate medication day by day. _Congestive heart failure without exacerbation mostly cardiomyopathy will contin ue metoprolol, furosemide and spironolactone will be beneficial to add ARB at some point if patient is able to tolerate it. Will consult cardiology and prepare for his surgery for medical clearance as well. _Chronic kidney disease: Was mostly stage II has been doing much better on hydration. _Chronic pain syndrome: Has been on hydrocodone_10 mg every 6 hours continues smaller dose of Lyrica or gabapentin as well. _BPH: Resume Flomax watch for any urinary retention. Discussion: Patient be seen cardiology, infectious disease, as of now it seems like vascular are planning to do above-knee amputation on tomorrow. Objective - Vital Signs Vital signs: Vital Signs Temp 97.7 F 01/25/24 01:19 Pulse 96 01/25/24 01:19 Resp 20 01/25/24 01:19 BP 132/71 01/25/24 01:19 Pulse Ox 90 L 01/25/24 01:19 FiO2 Intake & Output 01/24/24 01/24/24 01/25/24 06:59 18:59 06:59 Weight 108.862 kg Other: Voiding Method Diaper # Voids 1 2 # Bowel Movements 1 - Labs CBC & Chem 7: 01/24/24 06:35 01/24/24 06:35 Labs: Abnormal Lab Results - Last 24 Hours (Table) 01/24/24 01/24/24 01/24/24 Range/Units 06:30 06:35 06:35 RBC 3.83 L (4.40-5.60) X 10*6/uL Hgb 12.0 L (13.0-17.0) g/dL MCV 104.7 H (80.0-97.0) FL MCHC 29.9 L (32.0-37.0) g/dL RDW 15.0 H (11.5-14.5) % BUN 40.8 H (9.0-27.0) mg/dL Est GFR (CKD-EPI) 59 L (>=60) BUN/Creatinine Ratio 31.38 H (12.00-20.00) Ratio Glucose 335 H (70-110) mg/dL POC Glucose (mg/dL) 291 H (70-110) mg/dL Calcium 8.6 L (8.7-10.3) mg/dL Alkaline Phosphatase 216 H (41-126) U/L Albumin 3.5 L (3.8-4.9) g/dL Albumin/Globulin Ratio 1.06 L (1.60-3.17) Ratio 01/24/24 01/24/24 01/24/24 Range/Units 11:00 17:09 21:16 RBC (4.40-5.60) X 10*6/uL Hgb (13.0-17.0) g/dL MCV (80.0-97.0) FL MCHC (32.0-37.0) g/dL RDW (11.5-14.5) % BUN (9.0-27.0) mg/dL Est GFR (CKD-EPI) (>=60) BUN/Creatinine Ratio (12.00-20.00) Ratio Glucose (70-110) mg/dL POC Glucose (mg/dL) 407 H 417 H 449 H (70-110) mg/dL Calcium (8.7-10.3) mg/dL Alkaline Phosphatase (41-126) U/L Albumin (3.8-4.9) g/dL Albumin/Globulin Ratio (1.60-3.17) Ratio 01/24/24 01/24/24 01/24/24 Range/Units 22:53 22:54 23:39 RBC (4.40-5.60) X 10*6/uL Hgb (13.0-17.0) g/dL MCV (80.0-97.0) FL MCHC (32.0-37.0) g/dL RDW (11.5-14.5) % BUN (9.0-27.0) mg/dL Est GFR (CKD-EPI) (>=60) BUN/Creatinine Ratio (12.00-20.00) Ratio Glucose (70-110) mg/dL POC Glucose (mg/dL) 479 H 465 H 444 H (70-110) mg/dL Calcium (8.7-10.3) mg/dL Alkaline Phosphatase (41-126) U/L Albumin (3.8-4.9) g/dL Albumin/Globulin Ratio (1.60-3.17) Ratio 01/25/24 Range/Units 05:45 RBC (4.40-5.60) X 10*6/uL Hgb (13.0-17.0) g/dL MCV (80.0-97.0) FL MCHC (32.0-37.0) g/dL RDW (11.5-14.5) % BUN (9.0-27.0) mg/dL Est GFR (CKD-EPI) (>=60) BUN/Creatinine Ratio (12.00-20.00) Ratio Glucose (70-110) mg/dL POC Glucose (mg/dL) 369 H (70-110) mg/dL Calcium (8.7-10.3) mg/dL Alkaline Phosphatase (41-126) U/L Albumin (3.8-4.9) g/dL Albumin/Globulin Ratio (1.60-3.17) Ratio Microbiology - Last 24 Hours (Table) 01/23/24 20:15 Blood Culture - Preliminary Blood 01/23/24 20:30 Blood Culture - Preliminary Blood 01/23/24 17:26 Gram Stain - Preliminary Leg - Right Wound Culture - Preliminary Proteus mirabilis Presumptive MRSA
[2024-01-26 07:23] LABS: African American GFR (CKD) 76 (>60 ml/min/1.73 sqM); Non-African American GFR(CKD) 65 (>60 ml/min/1.73 sqM)
--- NOTE | 2024-01-26 07:23 | P.CONS ---
History of Present Illness - Reason for Consult Consult date: 01/25/24 Gangrene of the right leg and right-sided pneumonia Requesting physician: Sean Muro - Chief Complaint Increasing shortness of breath and cough x few days - History of Present Illness Patient is a 73-year-old male with a past medical history significant for diabetes mellitus hypertension COPD heart failure atrial fibrillation sleep apnea family history left qruwn-glf-ohfi amputation presenting to the hospital for evaluation of increasing shortness of breath patient has been nauseated but no vomiting and did have a productive cough in this patient symptom has been going on for a day or 2 before the patient has been brought into the hospital patient also complaining of increasing shortness of breath and requiring more oxygen patient on presentation to the hospital was afebrile and no fever have been recorded subsequently patient was not tachycardic or hypertensive not hypoxic patient did have a white count of 6.3 creatinine has been normal electrolytes are normal liver enzymes are normal influenza RSV COVID testing negative urine for Legionella antigen is negative blood and sputum culture. She currently pending patient did have a chest x-ray positive developing right lower lobe pneumonic infiltrate patient was started on vancomycin and cefepime infectious disease was consulted today concerning for healthcare-acquired pneumonia, patient also have a chronic ulceration to the right lower extremity that has been been there for many months patient under Medicare who has been taking care of it however the patient has been evaluated by vascular surgery and planning for amputation patient did have cultures obtained from the right leg which is currently growing MRSA and gram-negative patient present nonhealing wound is also denies any worsening pain to the right lower extremity did have some drainage and spinal at the time of dressing changes as reported by the nurse. Review of Systems Positive point and negatives has been mentioned in the HPI, complete review of systems was performed and all other systems are negative Past Medical History Past Medical History: Atrial Fibrillation, Heart Failure, COPD, Diabetes Mellitus, Hypertension, Osteoarthritis (OA), Pneumonia, Prostate Disorder, Renal Disease, Sleep Apnea/CPAP/BIPAP, Vascular Disorder Additional Past Medical History / Comment(s): Nonischemic cardiomyopathy, cardiac valve disease, bronchitis, JIMMIE with Cpap and O2 at 2L at hs, past decreased renal function, arthritis bilateral hands/knees, gout bilateral feet, numbness bilateral legs/feet, carpal tunnel syndrome bilaterally, bilateral hand tremors, nonhealing bilateral lower leg wounds/cellulitis, varicosities, lower leg/pedal edema, PVD, BPH. non hemorrahgic anemia. wound care MWF, wounds bleed. Fatty liver disease. History of Any Multi-Drug Resistant Organisms: MRSA Year Discovered:: 12/23/21 MDRO Source:: Right Leg Past Surgical History: Heart Catheterization Additional Past Surgical History / Comment(s): Split thickness skin graft to L leg, bronchoscopy, cyst and partial jaw removed/has screws, oral surgery age 8- too many teeth. cataracts bilaterallly. Left BKA in 10/2023 Past Anesthesia/Blood Transfusion Reactions: Previous Problems w/ Anesthesia Additional Past Anesthesia/Blood Transfusion Reaction / Comm: STATED DURING BRONCH STOPPED BREATHING, (brochoscopy done at [facility]-record on chart) Past Psychological History: Anxiety Additional Psychological History / Comment(s): Pt resides at [facility]. Unable to walk at this time. Wears CPAP at . Smoking Status: Former smoker Past Alcohol Use History: None Reported Additional Past Alcohol Use History / Comment(s): Pt started smoking cigars on occasion in 1981 and quit in 2019 Past Drug Use History: None Reported - Past Family History Father Family Medical History: Dementia, Eye Disorder Additional Family Medical History / Comment(s): MACULAR DEGENERATION Mother Family Medical History: Diabetes Mellitus, Eye Disorder, Vascular Disorder Additional Family Medical History / Comment(s): ANEURYSMS, CATARACTS. . Khadra JOSE MIGUEL @ [facility] not aware family hx. pt's daughter had no imput. Medications and Allergies Home Medications Medication Instructions Recorded Confirmed Type Isosorbide Mononitrate ER [Imdur] 30 mg PO HS 04/11/14 01/23/24 History Tamsulosin HCl [Flomax] 0.4 mg PO HS 04/11/14 01/23/24 History allopurinoL [Zyloprim] 300 mg PO HS 03/03/16 01/23/24 History Digoxin [Lanoxin] 125 mcg PO DAILY@0600 06/09/18 01/23/24 History Magnesium Oxide 400 mg PO HS 12/29/20 01/23/24 History Ferrous Sulfate [Iron (65 MG 325 mg PO BID@0800,2100 03/20/21 01/23/24 History Elemental)] Na Phos,M-B/Na Phos,Di-Ba [Fleet 133 ml RECTAL DAILY PRN 03/20/21 01/23/24 History Adult] bisacodyL [Dulcolax] 10 mg RECTAL DAILY PRN 03/20/21 01/23/24 History Acetaminophen Tab [Tylenol] 650 mg PO TID PRN 08/16/21 01/23/24 History Magnesium Hydroxide [Milk of 7,200 mg PO Q2D PRN 08/16/21 01/23/24 History Magnesia Concentrate] guaiFENesin [guaiFENesin Oral 200 mg PO Q4H PRN 08/16/21 01/23/24 History Solution] Sennosides/Docusate Sodium [Senna 1 tab PO Q12HR@0800,2100 11/04/21 01/23/24 History Plus 8.6-50 mg Tablet] INSULIN LISPRO (HumaLOG) [humaLOG] See Protocol SQ AC-TID 11/13/22 01/23/24 History Loperamide HCl [Imodium A-D] 4 mg PO BID PRN 11/13/22 01/23/24 History Multivitamins, Thera [Multivitamin 1 tab PO DAILY@0800 11/13/22 01/23/24 History (formulary)] Ondansetron [Zofran] 4 mg PO Q8HR PRN 11/13/22 01/23/24 History Spironolactone [Aldactone] 25 mg PO BID@0800,1700 11/13/22 01/23/24 History Apixaban [Eliquis] 2.5 mg PO BID@0800,1700 10/25/23 01/23/24 History Furosemide [Lasix] 40 mg PO DAILY@0800 10/25/23 01/23/24 History Insulin Glargine [Lantus Vial] 10 units SQ HS 10/25/23 01/23/24 History Ipratropium-Albuterol Nebulize 3 ml INHALATION RT-QID PRN 10/25/23 01/23/24 History [Duoneb 0.5 mg-3 mg/3 ml Soln] Midodrine [ProAmatine] 10 mg PO TID@0700,1100,1630 10/25/23 01/23/24 History Gabapentin [Neurontin] 100 mg PO Q8HR@0600,1400,2200 01/23/24 01/23/24 History HYDROcodone/APAP 10-325MG [Somers 1 tab PO Q6H 01/23/24 01/23/24 History 10-325] Hola Packet 1 packet PO BID@0800,1700 01/23/24 01/23/24 History Liquacel 30 ml PO BID@0800,1700 01/23/24 01/23/24 History Metoprolol Tartrate [Lopressor] 50 mg PO BID@0800,1700 01/23/24 01/23/24 History Allergies Allergy/AdvReac Type Severity Reaction Status Date / Time No Known Allergies Allergy Verified 01/23/24 16:08 Physical Exam Vitals: Vital Signs Temp Pulse Pulse Pulse Resp BP BP 01/25/24 09:10 90 01/25/24 09:03 01/25/24 09:01 86 01/25/24 06:49 98.2 F 64 18 01/25/24 01:19 97.7 F 96 20 132/71 01/24/24 22:48 156/93 01/24/24 22:38 98.2 F 93 166/77 01/24/24 20:00 01/24/24 18:43 84 01/24/24 18:40 98.1 F 95 17 162/97 01/24/24 18:34 80 01/24/24 17:45 97.9 F 90 19 120/78 01/24/24 15:20 74 01/24/24 15:11 90 01/24/24 11:19 93 01/24/24 11:14 01/24/24 11:11 98 01/24/24 11:00 78 19 114/81 BP Pulse Ox 01/25/24 09:10 01/25/24 09:03 96 01/25/24 09:01 01/25/24 06:49 132/78 97 01/25/24 01:19 90 L 01/24/24 22:48 01/24/24 22:38 93 L 01/24/24 20:00 93 L 01/24/24 18:43 01/24/24 18:40 94 L 01/24/24 18:34 01/24/24 17:45 92 L 01/24/24 15:20 01/24/24 15:11 01/24/24 11:19 01/24/24 11:14 92 L 01/24/24 11:11 01/24/24 11:00 95 Intake and Output 01/24/24 01/25/24 01/25/24 22:59 06:59 14:59 Other: Voiding Method Diaper # Voids 1 2 1 GENERAL DESCRIPTION: Elderly male lying in bed, no distress. No tachypnea or accessory muscle of respiration use. HEENT: Shows Pallor , no scleral icterus. Oral mucous membrane is dry. No pharyngeal erythema or thrush NECK: Trachea central, no thyromegaly. LUNGS: Unlabored breathing. Decreased breath sound the base HEART: S1, S2, regular rate and rhythm. No loud murmur ABDOMEN: Soft, no tenderness , guarding or rigidity, no organomegaly EXTREMITIES: Right lower extremity with multiple ulcerations to mostly superficial with some slough tissue and some drainage from the dressing SKIN: No rash, no masses palpable. NEUROLOGICAL: The patient is awake, alert, oriented x3, mood and affect normal. Results CBC & Chem 7: 01/24/24 06:35 01/24/24 06:35 Labs: Abnormal Lab Results - Last 24 Hours (Table) 01/24/24 01/24/24 01/24/24 Range/Units 11:00 17:09 21:16 POC Glucose (mg/dL) 407 H 417 H 449 H (70-110) mg/dL 01/24/24 01/24/24 01/24/24 Range/Units 22:53 22:54 23:39 POC Glucose (mg/dL) 479 H 465 H 444 H (70-110) mg/dL 01/25/24 Range/Units 05:45 POC Glucose (mg/dL) 369 H (70-110) mg/dL Microbiology - Last 24 Hours (Table) 01/24/24 15:19 Gram Stain - Preliminary Sputum Sputum Culture - Preliminary 01/23/24 20:15 Blood Culture - Preliminary Blood 01/23/24 20:30 Blood Culture - Preliminary Blood 01/23/24 17:26 Gram Stain - Preliminary Leg - Right Wound Culture - Preliminary Proteus mirabilis Presumptive MRSA Assessment and Plan (1) Cellulitis of right leg Current Visit: Yes Status: Acute Code(s): L03.115 - CELLULITIS OF RIGHT LOWER LIMB SNOMED Code(s): 20562443755375330 (2) Bacterial pneumonia Current Visit: Yes Status: Acute Code(s): J15.9 - UNSPECIFIED BACTERIAL PNEUMONIA SNOMED Code(s): 73232273 (3) Venous stasis ulcer of right lower extremity Current Visit: Yes Status: Acute Code(s): I83.019 - VARICOSE VEINS OF RIGHT LOWER EXTREMITY W ULCER OF UNSP SITE; L97.919 - NON-PRS CHRONIC ULC UNSP PRT OF R LOW LEG W UNSP SEVERITY SNOMED Code(s): 3000027576 Plan: 1patient presented to hospital with increasing shortness of breath he also have a cough patient noticed to have right-sided pneumonia in this patient who is a intermediate resident will need to cover for the resistant gram-positive as well as gram-negative pathogen. 2patient also have a chronic ulceration to the right lower extremity likely venous stasis concerning for secondary cellulitis with the culture positive for MRSA and gram-negative, 3blood and sputum cultures currently pending will wait for the right lower extremity culture to be finalized. 4vancomycin pharmacy to dose target trough of 15 while watching kidney function and Vanco trough closely and cefepime will provide adequate biotic coverage both for the right lower extremity cellulitis as well as pneumonia We will follow on clinical condition and cultures to further adjust medication if needed Thank you for this consultation we will follow the patient along with you Dictation was produced using [employer] dictation software. please excuse any grammatical, word or spelling errors. Time with Patient: Greater than 30
[2024-01-26] MEDS: INSULIN ASPART (NovoLOG) 100 UNIT/ML VIAL SQ SCH (07:39)
[2024-01-26] MEDS: LACTATED RINGERS 1,000 ML IV SCH (08:46)
[2024-01-26] MEDS: lisinopriL 10 MG TAB PO SCH (09:54)
[2024-01-26 10:44] LABS: HCT 39.1 % (39.6-50.0); MCH 31.2 pg (27.0-32.0); MCHC 30.7 g/dL (32.0-37.0); MCV 101.6 FL (80.0-97.0); Mean Platelet Volume 10.7 FL (9.5-12.2); NRBC Per 100 WBC 0 X 10*3/uL (0.00-0.01); Platelet Count 149 X 10*3/uL (140-440); RBC 3.85 X 10*6/uL (4.40-5.60); RDW 14.1 % (11.5-14.5); WBC 5.98 X 10*3/uL (4.50-10.00)
[2024-01-26 11:32] LABS: Glucose,Whole Blood 329 mg/dL (70-110)
--- NOTE | 2024-01-26 12:06 | P.PN ---
Progress Note - Text Progress Note Date: 01/26/24 Patient has medical clearance from Dr. Murphy and is cleared by cardiology to proceed with a right sykvu-ucn-wpez amputation. Spoke to patient's regarding his medical clearance and that we we will proceed with scheduled wulpq-tqk-fmdt amputation today. All questions were answered to the best my ability and she seemingly understands. The impression and plan of care has been dictated as directed. I performed a history and examination of this patient, discussed the same with the dictator. I agree with the dictator's note ,documented as a scribe. Any additional findings or plans will be noted.
[2024-01-26] MEDS: SODIUM CHLORIDE 0.9% 500 ML 500 ML IV ONE (14:40)
[2024-01-26 15:03] LABS: Glucose,Whole Blood 278 mg/dL (70-110)
[2024-01-26] MEDS ORDERED: SUCCINYLCHOLINE CHLORIDE 200 MG/10 ML VIAL IV ONE (15:29)
[2024-01-26] MEDS ORDERED: LIDOCAINE 1% INJ 10MG/ML (20 ML MDV) ONE (15:29)
[2024-01-26] MEDS ORDERED: fentaNYL (PF) 50 MCG/ML 2 ML AMP ONE (15:29)
[2024-01-26] MEDS ORDERED: NEOSTIGMINE 1 MG/ML 10 ML VIAL ONE (15:29)
[2024-01-26] MEDS ORDERED: ROCURONIUM 10 MG/ML (5 ML VIAL) IV ONE (15:29)
[2024-01-26] MEDS ORDERED: PROPOFOL 10 MG/ML 20 ML VIAL IV ONE (15:29)
[2024-01-26] MEDS ORDERED: GLYCOPYRROLATE 0.2 MG/ML 2 ML VIAL ONE (15:29)
[2024-01-26] MEDS: ceFAZolin 2 GM in SODIUM CHLORIDE 0.9% 500 ML 500 ML IRRIGATION ONE (15:56)
[2024-01-26] MEDS: IV FLUID CONTINUATION 1,000 ML IV ONE (16:46)
--- NOTE | 2024-01-26 17:23 | P.OP ---
Date of Procedure: 01/26/24 Preoperative Diagnosis: Multiple nonhealing wounds right lower extremity/relative contraindication to revascularization. Postoperative Diagnosis: Same. Procedure(s) Performed: Right zoizs-vqv-sdao amputation. Anesthesia: RICOA Surgeon: Ricky Whitten Estimated Blood Loss (ml): 150 Pathology: none sent Condition: stable Disposition: no change Indications for Procedure: Patient is a 73-year-old male who is status post left ogqob-vfy-fwjf amputation who has not walked in a 3-year timeframe and has developed multiple nonhealing wounds of the right lower extremity. Due to the patient's comorbid medical conditions he is not felt to be revascularization candidate especially in view of the fact that he has not used his leg in over 3 years. Patient was offered ggeis-vrv-hbyw amputation. The procedure, risk and benefits were discussed. Patient wished to proceed. Consent form was signed. Description of Procedure: Patient was brought the op room placed in the supine position administered general endotracheal anesthesia administered by the department of anesthesiology. The patient's right lower extremity sterilely prepped and draped in usual manner. A fishmouth type incision was made above the patella. The incision was deepened through the subcutaneous tissues. The patellar tendon was divided. The incision was deepened through generous subcutaneous tissues. This was carried down to the level of the femur. The incisions were then carried medially and laterally and then inferiorly and a fishmouth type fashion. Once this was completed the femur was transected utilizing a power saw and the neurovascular structures were clamped and the amputation was completed. The femoral nerve was identified and ligated as far as proximally as possible and transected. The arterial and venous structures were clamped cut and ligated as well. The posterior flap was able to be brought anteriorly without undue tension. Fascia was reapproximated with 2-0 Vicryl. Skin edges were reapproximated with skin suzan. Appropriate dressings were applied. Patient tolerated the procedure well, was extubated and transferred to the recovery area in satisfactory and stable condition.
[2024-01-26] MEDS: HYDROmorphone 0.5 MG/0.5 ML SYRINGE IVP PRN (17:35)
[2024-01-26 18:20] LABS: Glucose,Whole Blood 252 mg/dL (70-110)
--- NOTE | 2024-01-26 19:00 | P.CRDCN ---
History of Present Illness History of present illness: This is Dr. Marquez dictating a consult on this patient The patient was interviewed and examined IMPRESSION / ASSESSMENT: Severe peripheral vascular disease with nonhealing ulcer awaiting right below- knee amputation Hypertension Atrial fibrillation Reduced LV systolic function consistent with history of shortness of breath/congestive heart failure, systolic, chronic Severe pulmonary hypertension, RV enlargement PLAN: Discontinue midodrine. If blood pressure improves proceed with surgery Hold digoxin, repeat creatinine if creatinine is normal then he may go back on 0.125 mg p.o. daily Continue metoprolol and increase the dose only if atrial fibrillation rates are not controlled Continue low-dose lisinopril 10 mg p.o. daily Continue metoprolol 50 mg twice daily Continue Lasix 40 mg daily Avoid midodrine even though this patient may have diabetic dysautonomia. This is better managed with withdrawal of antihypertensive therapy The patient has multiple contraindications for an arterial vasoconstrictor such as midodrine including congestive heart failure with reduced LV systolic function, severe peripheral vascular disease requiring amputation on account of nonhealing ulcer, severe supine hypertension. [facility] Cardiology consulted for preoperative evaluation prior to amputation Patient presented to the hospital with shortness of breath nausea vomiting productive cough Past history of atrial fibrillation CAD congestive heart failure hypertension BPH severe peripheral vascular disease with nonhealing ulcers in the lower extremities prior left above-knee amputation Awaiting right knee amputation ROS: No fever chills or rigors, no cough, phlegm or expectoration, no nausea, vomiting or diarrhea, no hematuria, dysuria, no musculoskeletal complaints, no strokes or seizures, no skin lesions. EXAMINATION: Pulse rate in the 70s afebrile blood pressure supine very high 162/8460 110 mmHg receiving midodrine 10 mg 3 times a day [id number] I spoke to the nurse and she stated that his supine hyper blood pressure was very high consistently Heart sounds irregular Breath sounds clear REVIEW OF LABS, ECG & MEDICAL DATA Twelve-lead EKG shows atrial fibrillation right bundle branch block left left posterior fascicular block with RVR Sodium 138 potassium 5.3 Initially creatinine was 0.87 then subsequently 1.3 and now 1.19 NT proBNP elevated at close to 3000 Reduced LV systolic function ejection fraction 40-45% consistent with his history of shortness of breath Severe LV enlargement with severe pulmonary hypertension and biatrial enlargement Past Medical History Past Medical History: Atrial Fibrillation, Heart Failure, COPD, Diabetes Mellitus, Hypertension, Osteoarthritis (OA), Pneumonia, Prostate Disorder, Renal Disease, Sleep Apnea/CPAP/BIPAP, Vascular Disorder Additional Past Medical History / Comment(s): Nonischemic cardiomyopathy, cardiac valve disease, bronchitis, JIMMIE with Cpap and O2 at 2L at hs, past decreased renal function, arthritis bilateral hands/knees, gout bilateral feet, numbness bilateral legs/feet, carpal tunnel syndrome bilaterally, bilateral hand tremors, nonhealing bilateral lower leg wounds/cellulitis, varicosities, lower leg/pedal edema, PVD, BPH. non hemorrahgic anemia. wound care MWF, wounds bleed. Fatty liver disease. History of Any Multi-Drug Resistant Organisms: MRSA Date of last positivie culture/infection: 01/23/24 MDRO Source:: Right Leg Past Surgical History: Heart Catheterization Additional Past Surgical History / Comment(s): Split thickness skin graft to L leg, bronchoscopy, cyst and partial jaw removed/has screws, oral surgery age 8- too many teeth. cataracts bilaterallly. Left BKA in 10/2023 Past Anesthesia/Blood Transfusion Reactions: Previous Problems w/ Anesthesia Additional Past Anesthesia/Blood Transfusion Reaction / Comment(s): STATED DURING BRONCH STOPPED BREATHING, (brochoscopy done at [facility]-record on chart) Past Psychological History: Anxiety Additional Psychological History / Comment(s): Pt resides at [facility]. Unable to walk at this time. Wears CPAP at . Smoking Status: Former smoker Past Alcohol Use History: None Reported Additional Past Alcohol Use History / Comment(s): Pt started smoking cigars on occasion in 1981 and quit in 2019 Past Drug Use History: None Reported - Past Family History Father Family Medical History: Dementia, Eye Disorder Additional Family Medical History / Comment(s): MACULAR DEGENERATION Mother Family Medical History: Diabetes Mellitus, Eye Disorder, Vascular Disorder Additional Family Medical History / Comment(s): ANEURYSMS, CATARACTS. . Khadra GILLESPIE @ [facility] not aware family hx. pt's daughter had no imput. Medications and Allergies Home Medications Medication Instructions Recorded Confirmed Type Isosorbide Mononitrate ER [Imdur] 30 mg PO HS 04/11/14 01/23/24 History Tamsulosin HCl [Flomax] 0.4 mg PO HS 04/11/14 01/23/24 History allopurinoL [Zyloprim] 300 mg PO HS 03/03/16 01/23/24 History Digoxin [Lanoxin] 125 mcg PO DAILY@0600 06/09/18 01/23/24 History Magnesium Oxide 400 mg PO HS 12/29/20 01/23/24 History Ferrous Sulfate [Iron (65 MG 325 mg PO BID@0800,2100 03/20/21 01/23/24 History Elemental)] Na Phos,M-B/Na Phos,Di-Ba [Fleet 133 ml RECTAL DAILY PRN 03/20/21 01/23/24 History Adult] bisacodyL [Dulcolax] 10 mg RECTAL DAILY PRN 03/20/21 01/23/24 History Acetaminophen Tab [Tylenol] 650 mg PO TID PRN 08/16/21 01/23/24 History Magnesium Hydroxide [Milk of 7,200 mg PO Q2D PRN 08/16/21 01/23/24 History Magnesia Concentrate] guaiFENesin [guaiFENesin Oral 200 mg PO Q4H PRN 08/16/21 01/23/24 History Solution] Sennosides/Docusate Sodium [Senna 1 tab PO Q12HR@0800,2100 11/04/21 01/23/24 History Plus 8.6-50 mg Tablet] INSULIN LISPRO (HumaLOG) [humaLOG] See Protocol SQ AC-TID 11/13/22 01/23/24 History Loperamide HCl [Imodium A-D] 4 mg PO BID PRN 11/13/22 01/23/24 History Multivitamins, Thera [Multivitamin 1 tab PO DAILY@0800 11/13/22 01/23/24 History (formulary)] Ondansetron [Zofran] 4 mg PO Q8HR PRN 11/13/22 01/23/24 History Spironolactone [Aldactone] 25 mg PO BID@0800,1700 11/13/22 01/23/24 History Apixaban [Eliquis] 2.5 mg PO BID@0800,1700 10/25/23 01/23/24 History Furosemide [Lasix] 40 mg PO DAILY@0800 10/25/23 01/23/24 History Insulin Glargine [Lantus Vial] 10 units SQ 10/25/23 01/23/24 History Ipratropium-Albuterol Nebulize 3 ml INHALATION RT-QID PRN 10/25/23 01/23/24 History [Duoneb 0.5 mg-3 mg/3 ml Soln] Midodrine [ProAmatine] 10 mg PO TID@0700,1100,1630 10/25/23 01/23/24 History Gabapentin [Neurontin] 100 mg PO Q8HR@0600,1400,2200 01/23/24 01/23/24 History HYDROcodone/APAP 10-325MG [[place] 1 tab PO Q6H 01/23/24 01/23/24 History 10-325] Hola Packet 1 packet PO BID@0800,1700 01/23/24 01/23/24 History Liquacel 30 ml PO BID@0800,1700 01/23/24 01/23/24 History Metoprolol Tartrate [Lopressor] 50 mg PO BID@0800,1700 01/23/24 01/23/24 History Allergies Allergy/AdvReac Type Severity Reaction Status Date / Time No Known Allergies Allergy Verified 01/23/24 16:08 Physical Exam Vitals: Vital Signs Temp Pulse Pulse Resp BP BP Pulse Ox 01/26/24 18:27 66 137/89 01/26/24 18:13 97.5 F L 70 18 135/80 93 L 01/26/24 17:56 71 16 124/67 100 01/26/24 17:41 61 16 117/69 100 01/26/24 17:26 68 16 117/58 100 01/26/24 17:11 97.1 F L 61 16 131/84 98 01/26/24 14:42 97.6 F 67 18 124/63 96 01/26/24 13:33 88 01/26/24 13:23 84 01/26/24 09:53 80 01/26/24 09:43 80 01/26/24 07:02 98.0 F 76 13 162/84 160/111 96 01/26/24 06:12 166/99 01/26/24 06:07 97.8 F 89 19 178/118 97 01/26/24 01:45 98.2 F 65 18 155/92 95 01/25/24 20:57 84 01/25/24 20:42 77 07/31/24 20:00 96 01/25/24 19:31 98.2 F 98 18 137/91 96 Intake and Output 01/26/24 01/26/24 01/26/24 06:59 14:59 22:59 Intake Total 100 701 Output Total 700 Balance 100 1 Intake: IV 100 701 Output: Urine 550 Estimated Blood Loss 150 Other: # Voids 4 Results 01/26/24 05:59 01/26/24 05:59 CBC 01/26/24 Range/Units 05:59 WBC 5.98 (4.50-10.00) X 10*3/uL RBC 3.85 L (4.40-5.60) X 10*6/uL Hgb 12.0 L (13.0-17.0) g/dL Hct 39.1 L (39.6-50.0) % Plt Count 149 (140-440) X 10*3/uL Comprehensive Metabolic Panel 01/26/24 Range/Units 05:59 Creatinine 1.13 (0.66-1.25) mg/dL Current Medications Generic Name Dose Route Start Last Admin Trade Name Freq PRN Reason Stop Dose Admin Acetaminophen 650 mg 01/23/24 19:50 Acetaminophen Tab 325 Mg Tab PO TID PRN Pain Hydrocodone Bitart/Acetaminophen 1 each 01/23/24 20:00 01/26/24 14:19 Hydrocodone/Apap 10-325mg 1 Each Tab PO Not Given Q6H JULIEN Albuterol/Ipratropium 3 ml 01/23/24 20:00 01/26/24 16:39 Ipratropium-Albuterol 3 Ml Neb INHALATION Not Given RT-QID JULIEN Allopurinol 300 mg 01/23/24 21:00 01/25/24 21:17 Allopurinol 300 Mg Tab PO 300 mg HS JULIEN Administration Bisacodyl 10 mg 01/23/24 19:50 Bisacodyl 10 Mg Supp RECTAL DAILY PRN Constipation Dextrose/Water 25 ml 01/24/24 07:05 Dextrose 50% Syringe 50 Ml IVP PER PROTOCOL PRN Hypoglycemia Protocol Dextrose/Water 50 ml 01/24/24 07:05 Dextrose 50% Syringe 50 Ml IVP PER PROTOCOL PRN Hypoglycemia Protocol Famotidine 20 mg 01/24/24 09:00 01/26/24 08:45 Famotidine 20 Mg Tab PO 20 mg DAILY JULIEN Administration Ferrous Sulfate 325 mg 01/23/24 21:00 01/26/24 08:45 Ferrous Sulfate 325 Mg Tab PO 325 mg BID@0800,2100 [facility] Administration Furosemide 40 mg 01/24/24 08:00 01/26/24 08:45 Furosemide 40 Mg Tab PO 40 mg DAILY@0800 [facility] Administration Gabapentin 100 mg 01/23/24 22:00 01/26/24 14:19 Gabapentin 100 Mg Cap PO Not Given Q8HR@0600,1400,2200 [facility] Guaifenesin 200 mg 01/23/24 19:50 Guaifenesin Syrup 100mg/5ml 200 Mg/10 Ml Cup PO Q4H PRN Cough Hydromorphone HCl 0.5 mg 01/26/24 07:32 01/26/24 17:35 Hydromorphone 0.5 Mg/0.5 Ml Syringe IVP 01/27/24 07:31 0.5 mg Q5M PRN Administration Phase 1 or 2 - Pain Control Cefepime HCl 2 gm/ Sodium 100 mls @ 25 mls/hr 01/24/24 21:00 01/26/24 08:46 Chloride IVPB 25 mls/hr Q12HR [facility] Administration Protocol Vancomycin HCl 1,750 mg/ 500 mls @ 167 mls/hr 01/26/24 20:00 Sodium Chloride IVPB Q16H [facility] Lactated Ringer's 1,000 mls @ 20 mls/hr 01/26/24 07:32 01/26/24 08:46 Lactated Ringers IV Not Given .Q24H [facility] Insulin Aspart 0 unit 01/24/24 07:30 01/26/24 18:26 Insulin Aspart (Novolog) 100 Unit/Ml Vial SQ 6 unit ACHS [facility] Administration Protocol Insulin Aspart 15 unit 01/26/24 07:30 01/26/24 17:15 Insulin Aspart (Novolog) 100 Unit/Ml Vial SQ Not Given AC-TID [facility] Insulin Detemir 30 unit 01/26/24 21:00 Insulin Detemir (Levemir) 100 Unit/Ml Syr SQ BID@0700,2100 [facility] Isosorbide Mononitrate 30 mg 01/23/24 21:00 01/25/24 21:16 Isosorbide Mononitrate Er 30 Mg Tab.Er.24h PO 30 mg HS [facility] Administration Lisinopril 10 mg 01/26/24 09:30 01/26/24 09:54 Lisinopril 10 Mg Tab PO 10 mg DAILY JULIEN Administration Loperamide HCl 4 mg 01/23/24 19:50 Loperamide 2 Mg Cap PO BID PRN Diarrhea Magnesium Hydroxide 7,200 mg 01/23/24 19:50 Magnesium Hydroxide 2,400 Mg/30 Ml Cup PO Q2D PRN Constipation Magnesium Oxide 400 mg 01/23/24 21:00 01/25/24 21:16 Magnesium Oxide 400 Mg Tab PO 400 mg HS JULIEN Administration Methylprednisolone Sodium Succinate 20 mg 01/26/24 17:00 01/26/24 18:26 Methylprednisolone Sod Succi 40 Mg/Ml 1 Ml Vial IV 20 mg Q12H JULIEN Administration Metoprolol Tartrate 50 mg 01/24/24 08:00 01/26/24 18:26 Metoprolol Tartrate 50 Mg Tab PO 50 mg BID@0800,1700 JULIEN Administration Miscellaneous Information 1 each 01/23/24 19:36 Pneumonia Protocol Utilized 1 Each Misc PO ONCE PRN Per Protocol Miscellaneous Information 0 each 01/27/24 11:00 Vancomycin Trough Due 1 Each Misc MISCELLANE 01/27/24 11:01 DIRECTED ONE Multivitamins 1 each 01/24/24 08:00 01/26/24 08:45 Multivitamins, Thera 1 Each Tab PO 1 each DAILY@0800 JULIEN Administration Ondansetron HCl 4 mg 01/23/24 19:50 Ondansetron 4 Mg Tab PO Q8HR PRN Nausea Senna/Docusate Sodium 1 each 01/23/24 21:00 01/26/24 08:45 Sennosides-Docusate Sodium 1 Each Tab PO 1 each Q12HR@0800,2100 JULIEN Administration Sodium Biphosphate/Sodium Phosphate 133 ml 01/23/24 19:50 Na Phos,M-B/Na Phos,Di-Ba 133 Ml Enema RECTAL DAILY PRN Constipation Spironolactone 25 mg 01/24/24 08:00 01/26/24 18:26 Spironolactone 25 Mg Tab PO 25 mg BID@0800,1700 JULIEN Administration Tamsulosin HCl 0.4 mg 01/23/24 21:00 01/25/24 21:16 Tamsulosin 0.4 Mg Cap.Er.24h PO 0.4 mg HS JULIEN Administration Intake and Output 08/01/24 08/01/24 08/01/24 06:59 14:59 22:59 Intake Total 100 701 Output Total 700 Balance 100 1 Intake: IV 100 701 Output: Urine 550 Estimated Blood Loss 150 Other: # Voids 4 01/26/24 05:59 01/26/24 05:59
[2024-01-26 20:49] LABS: Glucose,Whole Blood 259 mg/dL (70-110)
[2024-01-26] MEDS: INSULIN DETEMIR (LEVEMIR) 100 UNIT/ML SYR SQ SCH (21:16)
--- NOTE | 2024-01-26 22:14 | P.PN ---
Subjective Progress Note Date: 01/26/24 Principal diagnosis: Reason for follow-up is pneumonia and right lower extremity wound Patient is a 73-year-old male with a past medical history significant for diabetes mellitus hypertension COPD heart failure atrial fibrillation sleep apnea family history left [id number] amputation presenting to the hospital for evaluation of increasing shortness of breath patient has been diagnosed with pneumonia patient also has a chronic nonhealing wound to the right lower extremity, the patient is s/p right [id number] amputation completed on 01/26/2024. On today's evaluation that is 01/26/2024, Patient is afebrile this morning patient denies having any chest pain shortness of breath or any worsening cough, the patient is breathing comfortably and currently on 2 L nasal oxygen, patient denies any abdominal pain no diarrhea no nausea no vomiting. Patient white count is 5.98 creatinine is 1.13 sputum cultures pending Objective - Vital Signs Vital signs: Vital Signs Temp 97.5 F L 01/26/24 18:13 Pulse 66 01/26/24 18:27 Resp 18 01/26/24 18:13 BP 137/89 01/26/24 18:27 Pulse Ox 93 L 01/26/24 18:13 FiO2 Intake & Output 01/26/24 01/26/24 01/27/24 06:59 18:59 06:59 Intake Total 801 Output Total 700 Balance 101 Intake: IV 801 Output: Urine 550 Estimated Blood Loss 150 Other: Voiding Method Diaper # Voids 4 - Exam GENERAL DESCRIPTION: An elderly male lying in bed in no distress RESPIRATORY SYSTEM: Unlabored breathing , decreased breath sounds at bases HEART: S1 S2 regular rate and rhythm , ABDOMEN: Soft , no tenderness EXTREMITIES: Right AKA stump is currently dressed - Labs CBC & Chem 7: 01/26/24 05:59 01/26/24 05:59 Labs: Abnormal Lab Results - Last 24 Hours (Table) 01/25/24 01/26/24 01/26/24 Range/Units 20:35 05:56 05:59 RBC 3.85 L (4.40-5.60) X 10*6/uL Hgb 12.0 L (13.0-17.0) g/dL Hct 39.1 L (39.6-50.0) % MCV 101.6 H (80.0-97.0) FL MCHC 30.7 L (32.0-37.0) g/dL POC Glucose (mg/dL) 384 H 333 H (70-110) mg/dL 01/26/24 01/26/24 01/26/24 Range/Units 11:30 15:02 18:18 RBC (4.40-5.60) X 10*6/uL Hgb (13.0-17.0) g/dL Hct (39.6-50.0) % MCV (80.0-97.0) FL MCHC (32.0-37.0) g/dL POC Glucose (mg/dL) 329 H 278 H 252 H (70-110) mg/dL Microbiology - Last 24 Hours (Table) 01/24/24 15:19 Gram Stain - Final Sputum Sputum Culture - Final 01/23/24 20:15 Blood Culture - Preliminary Blood 01/23/24 20:30 Blood Culture - Preliminary Blood 01/23/24 17:26 Gram Stain - Final Leg - Right Wound Culture - Final Proteus mirabilis Methicillin resist S. aureus Assessment and Plan (1) Cellulitis of right leg Current Visit: Yes Status: Acute Code(s): L03.115 - CELLULITIS OF RIGHT LOWER LIMB SNOMED Code(s): 22143210623255737 (2) Bacterial pneumonia Current Visit: Yes Status: Acute Code(s): J15.9 - UNSPECIFIED BACTERIAL PNEUMONIA SNOMED Code(s): 24279323 (3) Venous stasis ulcer of right lower extremity Current Visit: Yes Status: Acute Code(s): I83.019 - VARICOSE VEINS OF RIGHT LOWER EXTREMITY W ULCER OF UNSP SITE; L97.919 - NON-PRS CHRONIC ULC UNSP PRT OF R LOW LEG W UNSP SEVERITY SNOMED Code(s): 1458805641 Plan: 1patient presented to hospital with increasing shortness of breath he also have a cough patient noticed to have right-sided pneumonia in this patient who is a [facility] resident will need to cover for the resistant gram-positive as well as gram-negative pathogen. 2patient also have a chronic ulceration to the right lower extremity likely venous stasis concerning for secondary cellulitis with the culture positive for MRSA and Proteus, the patient status post right [id number] amputation has not been any long-term antibiotic before the right lower extremity wound 3blood and sputum cultures currently pending 4patient to continue with vancomycin pharmacy to dose target trough of 15 while watching kidney function and Vanco trough closely and cefepime and monitor clinical course closely Dictation was produced using [employer] dictation software. please excuse any grammatical, word or spelling errors. Time with Patient: Less than 30
[2024-01-27 06:35] LABS: Glucose,Whole Blood 257 mg/dL (70-110)
--- NOTE | 2024-01-27 11:05 | P.PN ---
Subjective Progress Note Date: 01/26/24 HISTORY OF PRESENT ILLNESS: 73-year-old male with active medical history of atrial fibrillation, CAD, congestive heart failure, hypertension, hyperlipidemia, benign prostatic hyper trophy, lymphedema, osteoarthritis, PVD, sleep apnea, chronic kidney disease, lymphedema, ulcer and nonhealing wound of both lower extremity, post left above- knee amputation was waiting to go for right knee amputation as well. The patient had Last surgical intervention on October 27, 2023 with the hospital October 28, 2023 was scheduled coming back to the hospital in the next 2 weeks for the right leg amputation. He was transferred to [facility] emergency department from [facility] because of significant shortness of breath with dyspnea and congestion with cough productive phlegm has not wear his CPAP last few nights which makes him slightly red more congested also patient developed to have slight nausea and vomiting he has been wearing 2 L O2 on more regular basis but pulse ox become lower on oxygen. Also was running slightly with low-grade temperature and chills. Testing at [facility] with COVID along with influenza were negative. In the having chest x-ray which shows significant decreased lung volume with limited inspiration with right lower lobe pneumonia and infiltrate. Original blood test showing lactic acid 2.4, blood sugars mildly elevated normal kidney function sli ghtly with elevated alk phos with normal proBNP normal troponin digoxin 0.7 pulmonary culture with influenza AB RSV and COVID are all negative. White blood cell was only 6300 with anemia has improved compared to his last admission. The patient was diagnosed with right lower lobe pneumonia aspiration most likely started on azithromycin along with Rocephin will continue O2 admit patient to the hospital with updraft and current management. 01/24/2024: The patient was continued on antibiotics for treatment of his pneumonia seen vascular his right leg gangrenous change is quite severe with quite a bit of drainage and more infectious than before, will continue current antibiotic that might help to expand the coverage into product like Unasyn and vancomycin for better coverage for the leg. The final decision of amputation is made. Original plan that patient was scheduled for amputation on this week which probably the plan can be carried out at this point. Will request cardiology consultation for the severity of the nonischemic cardiomyopathy for medical clearance and prepare for the amputation on also will ask infectious disease was seen patient will continue with the current treatment for pneumonia along with right leg nonhealing infection and cellulitis. 01/25/2024: Continue current antibiotics, patient be seen infectious disease, also consultation for cardiology was made for clearance. As of now patient scheduled for above-knee amputation of the right side tomorrow we will continue current management. His dyspnea and shortness of breath has improved significantly continue aggressive treatment for COPD, echocardiogram was done and showed slightly decreased ejection fraction compatible with his cardiomyopathy from before the patient again be seen in cardiology for clearance before his surgery. His blood sugar continue to be quite bit high with his Solu-Medrol will reduce Solu-Medrol to 40 mg twice a day for now continue aggressive management with long and short term insulin. Control blood sugar. 01/26/2024: Patient continued to have significant hyperglycemia reduce Solu-Medrol to 20 mg twice daily and increase Levemir and NovoLog today try to keep blood sugar under 200. Patient still waiting for cardiology consultation and will be going for right above-knee amputation today as planned early by vascular. His dyspnea and shortness of breath has improved significantly with the treating his pneumonia and COPD patient seems to do much better so far. Pain is under control and patient stable from medical standpoint for his procedure today. REVIEW OF SYSTEMS: CONSTITUTIONAL: Well-developed mild respiratory distress looks slightly dyspneic.. EYES: No icterus sclerae, no conjunctivitis. EARS, NOSE, MOUTH, THROAT, and FACE: No sore throat, lymphadenopathy, carotid bruits or deformity. RESPIRATORY: Positive shortness of breath with mild cough and wheezes with productive phlegm. CARDIOVASCULAR: Positive PND orthopnea palpitation with history of A-fib and cardiomyopathy. GASTROINTESTINAL: No Abd pain, Nausea or vomiting, no Diarrhea or constipation, No GI Bleed, no distention or masses. GENITOURINARY: Recurrent UTI with BPH and incontinence. INTEGUMENT/BREAST: Negative for any muscular injury with mild osteoarthritis.. Post left-sided above-knee amputation HEMATOLOGIC/LYMPHATIC: History of anemia with no bleeding disorders. MUSCULOSKELTAL: Generalized muscle and joint pain. Post above-knee amputation of the left side with slight nonhealing ulcer on the right side. NEURLOGICAL: No LOC, Sz or syncope, blurred vision dizziness or abnormality.. BEHAVIORAL/PSYCH: Negative. ENDOCRINE: Negative. PHYSICAL EXAMINATION: General Appearance: Alert, cooperative, mildly dyspneic and mild distress. Neck HEENT: Supple, no lymphadenopathy, no thyroid enlargement, no carotid bruits. Lungs: Decreased breath sound bilaterally with fine rhonchi positive mild expiratory wheezes. And crackles in the right base. Chest Wall: Decreased expansion with deep inspiration no tenderness and no deformity was found on exam, no costochondral pain or discomfort. Heart: Irregular rate and rhythm, S1, S2 positive S3 positive systolic murmur. Back: Symmetric, no curvature, ROM normal, no CVA tenderness. Severe scoliosis and kyphosis. Abdomen: Soft, non-tender, bowel sounds active all four quadrants, no masses, no organomegaly. Extremities: Left above-knee amputation, on the right side still have nonhealing ulcer. Not able to feel any pulse on the right side. Pulses: No pulse. Skin: Skin color, texture, tugor normal, no rashes or lesions. Neurologic: Alert oriented x3 cranial nerves II through XII intact, no motor deficit, not able to do gait exam. ASSESSMENT AND PLAN: _Severe gangrenous change on the right leg below the knee will be going for right above-knee amputation today Has been dealing with this infection for a long time this culture from the wound came back as positive for Proteus mirabilis and with infectious disease he is remain on vancomycin currently. _Severe dyspnea and shortness of breath with mild respiratory failure: Combination of fluid overload along with COPD exacerbation and right-sided pneumonia all treated and doing much better. _Right lower lobe pneumonia: Most likely aspiration with possible close community-acquired pneumonia: Will switch antibiotic management to probably vancomycin and Unasyn per infectious disease seen patient. Seems to respond very well to treatment. _COPD with mild exacerbation: Decrease Solu-Medrol to 20 mg twice a day continue Pulmicort DuoNeb and oxygen along with CPAP through the night has been doing very well. _Post left above-knee amputation secondary to severe PAD and nonhealing infected multiple ulcer, has done very well since continue current management. _Severe PAD of right lower extremity: With worsening gangrenous change along with worsening infection and cellulitis the original plan was for amputation on which should be able to carry on at this point. _A-fib with RVR: Will hold off on Eliquis for now but continue metoprolol titrate 50 mg twice a day. Pulse rate remained well-controlled at this point. _Hypertension: Remain on metoprolol and amlodipine along with Diuretics; his amlodipine should be probably switch eventually to ARB. Blood pressure has been stable and under control. _Gout: With no flareup remain on allopurinol 300 mg daily. _Iron deficiency anemia: Continue multivitamin iron supplement. _Severe nonischemic cardiomyopathy has been on medical management, his echocardiogram did not change from before still showing slight decrease in ejection fraction patient will remain on spironolactone, metoprolol, isosorbide, furosemide and digoxin. Still seen cardiology . Agree with cardiology recommendation and management this point. _Type 2 diabetes: Blood sugar still not well-controlled titrate Levemir up to 35 units and NovoLog up to 15 units AC meals furthermore patient might benefit from switching Levemir to once a day either Tresiba or Toujeo. _Congestive heart failure without exacerbation mostly cardiomyopathy will continue metoprolol, furosemide and spironolactone will be beneficial to add ARB at some point if patient is able to tolerate it. Will consult cardiology and prepare for his surgery for medical clearance as well. _Chronic kidney disease: Was mostly stage II has been doing much better on hydration. _Chronic pain syndrome: Has been on hydrocodone_10 mg every 6 hours continues smaller dose of Lyrica or gabapentin as well. _BPH: Resume Flomax watch for any urinary retention. Discussion: Patient is going for his amputation today following cardiology recommendation we will continue to watch patient hemodynamic status will request infectious disease recommendation for any change in antibiotic specially with the Proteus mirabilis and the methicillin-resistant Staph aureus part of his culture. Objective - Vital Signs Vital signs: Vital Signs Temp 97.8 F 01/26/24 06:07 Pulse 89 01/26/24 06:07 Resp 19 01/26/24 06:07 BP 166/99 01/26/24 06:12 Pulse Ox 97 01/26/24 06:07 FiO2 Intake & Output 01/25/24 01/25/24 01/26/24 06:59 18:59 06:59 Other: Voiding Method Diaper Diaper # Voids 2 2 - Labs CBC & Chem 7: 01/26/24 05:59 01/26/24 05:59 Labs: Abnormal Lab Results - Last 24 Hours (Table) 01/25/24 01/25/24 01/25/24 Range/Units 12:01 16:52 20:35 POC Glucose (mg/dL) 449 H 457 H 384 H (70-110) mg/dL 01/26/24 Range/Units 05:56 POC Glucose (mg/dL) 333 H (70-110) mg/dL Microbiology - Last 24 Hours (Table) 01/23/24 20:15 Blood Culture - Preliminary Blood 01/23/24 20:30 Blood Culture - Preliminary Blood 01/23/24 17:26 Gram Stain - Final Leg - Right Wound Culture - Final Proteus mirabilis Methicillin resist S. aureus 01/24/24 15:19 Gram Stain - Preliminary Sputum Sputum Culture - Preliminary
--- NOTE | 2024-01-27 11:10 | P.PN ---
Subjective Progress Note Date: 01/27/24 HISTORY OF PRESENT ILLNESS: 73-year-old male with active medical history of atrial fibrillation, CAD, congestive heart failure, hypertension, hyperlipidemia, benign prostatic hyper trophy, lymphedema, osteoarthritis, PVD, sleep apnea, chronic kidney disease, lymphedema, ulcer and nonhealing wound of both lower extremity, post left above- knee amputation was waiting to go for right knee amputation as well. The patient had Last surgical intervention on October 27, 2023 with the hospital October 28, 2023 was scheduled coming back to the hospital in the next 2 weeks for the right leg amputation. He was transferred to [facility] emergency department from [facility] because of significant shortness of breath with dyspnea and congestion with cough productive phlegm has not wear his CPAP last few nights which makes him slightly red more congested also patient developed to have slight nausea and vomiting he has been wearing 2 L O2 on more regular basis but pulse ox become lower on oxygen. Also was running slightly with low-grade temperature and chills. Testing at [facility] with COVID along with influenza were negative. In the having chest x-ray which shows significant decreased lung volume with limited inspiration with right lower lobe pneumonia and infiltrate. Original blood test showing lactic acid 2.4, blood sugars mildly elevated normal kidney function sli ghtly with elevated alk phos with normal proBNP normal troponin digoxin 0.7 pulmonary culture with influenza AB RSV and COVID are all negative. White blood cell was only 6300 with anemia has improved compared to his last admission. The patient was diagnosed with right lower lobe pneumonia aspiration most likely started on azithromycin along with Rocephin will continue O2 admit patient to the hospital with updraft and current management. 01/24/2024: The patient was continued on antibiotics for treatment of his pneumonia seen vascular his right leg gangrenous change is quite severe with quite a bit of drainage and more infectious than before, will continue current antibiotic that might help to expand the coverage into product like Unasyn and vancomycin for better coverage for the leg. The final decision of amputation is made. Original plan that patient was scheduled for amputation on this week which probably the plan can be carried out at this point. Will request cardiology consultation for the severity of the nonischemic cardiomyopathy for medical clearance and prepare for the amputation on also will ask infectious disease was seen patient will continue with the current treatment for pneumonia along with right leg nonhealing infection and cellulitis. 01/25/2024: Continue current antibiotics, patient be seen infectious disease, also consultation for cardiology was made for clearance. As of now patient scheduled for above-knee amputation of the right side tomorrow we will continue current management. His dyspnea and shortness of breath has improved significantly continue aggressive treatment for COPD, echocardiogram was done and showed slightly decreased ejection fraction compatible with his cardiomyopathy from before the patient again be seen in cardiology for clearance before his surgery. His blood sugar continue to be quite bit high with his Solu-Medrol will reduce Solu-Medrol to 40 mg twice a day for now continue aggressive management with long and short term insulin. Control blood sugar. 01/26/2024: Patient continued to have significant hyperglycemia reduce Solu-Medrol to 20 mg twice daily and increase Levemir and NovoLog today try to keep blood sugar under 200. Patient still waiting for cardiology consultation and will be going for right above-knee amputation today as planned early by vascular. His dyspnea and shortness of breath has improved significantly with the treating his pneumonia and COPD patient seems to do much better so far. Pain is under control and patient stable from medical standpoint for his procedure today. 01/27/2024: Patient had right above-knee amputation the stump looking good no sign of bleed so far. Cardiology seen patient yesterday and recommendation is to continue current management his BNP was mildly elevated with low ejection fraction at 40-45 percentile which patient currently remain on low-dose of lisinopril at 10 mg daily still on metoprolol titrate 50 mg twice a day and furosemide 40 mg daily avoid midodrine which might aggravate congestive heart failure at this point specially if the blood pressure is holding well. Will continue to watch patient hemodynamic status from day-to-day basis at this point. His recovery hopefully will be faster from [place] specially after the amputation infection is gone and ensured infectious disease might leave further recommend ation for IV antibiotic when he goes back to [facility] for period of time might be up to 2 weeks currently being treated for Proteus mirabilis along with MRSA and continue to watch vancomycin level to keep close target at 15 he is not on Unasyn but cefepime which is his culture sensitivity is very sensitive to it. REVIEW OF SYSTEMS: CONSTITUTIONAL: Well-developed mild respiratory distress looks slightly dyspneic.. EYES: No icterus sclerae, no conjunctivitis. EARS, NOSE, MOUTH, THROAT, and FACE: No sore throat, lymphadenopathy, carotid bruits or deformity. RESPIRATORY: Positive shortness of breath with mild cough and wheezes with productive phlegm. CARDIOVASCULAR: Positive PND orthopnea palpitation with history of A-fib and cardiomyopathy. GASTROINTESTINAL: No Abd pain, Nausea or vomiting, no Diarrhea or constipation, No GI Bleed, no distention or masses. GENITOURINARY: Recurrent UTI with BPH and incontinence. INTEGUMENT/BREAST: Negative for any muscular injury with mild osteoarthritis.. Post left-sided above-knee amputation HEMATOLOGIC/LYMPHATIC: History of anemia with no bleeding disorders. MUSCULOSKELTAL: Generalized muscle and joint pain. Post above-knee amputation of the left side with slight nonhealing ulcer on the right side. NEURLOGICAL: No LOC, Sz or syncope, blurred vision dizziness or abnormality.. BEHAVIORAL/PSYCH: Negative. ENDOCRINE: Negative. PHYSICAL EXAMINATION: General Appearance: Alert, cooperative, mildly dyspneic and mild distress. Neck HEENT: Supple, no lymphadenopathy, no thyroid enlargement, no carotid bruits. Lungs: Decreased breath sound bilaterally with fine rhonchi positive mild expi ratory wheezes. And crackles in the right base. Chest Wall: Decreased expansion with deep inspiration no tenderness and no deformity was found on exam, no costochondral pain or discomfort. Heart: Irregular rate and rhythm, S1, S2 positive S3 positive systolic murmur. Back: Symmetric, no curvature, ROM normal, no CVA tenderness. Severe scoliosis and kyphosis. Abdomen: Soft, non-tender, bowel sounds active all four quadrants, no masses, no organomegaly. Extremities: Left above-knee amputation, on the right side still have nonhealing ulcer. Not able to feel any pulse on the right side. Pulses: No pulse. Skin: Skin color, texture, tugor normal, no rashes or lesions. Neurologic: Alert oriented x3 cranial nerves II through XII intact, no motor deficit, not able to do gait exam. ASSESSMENT AND PLAN: _Severe gangrenous change on the right leg below the knee will be going for right above-knee amputation today Has been dealing with this infection for a lo ng time this culture from the wound came back as positive for Proteus mirabilis remain on vancomycin and cefepime. _Severe dyspnea and shortness of breath with mild respiratory failure: Combination of fluid overload along with COPD exacerbation and right-sided pneumonia all treated and doing much better. _Right lower lobe pneumonia: Most likely aspiration with possible close community-acquired pneumonia: Will switch antibiotic management to probably vancomycin and cefepime per infectious disease seen patient. Seems to respond very well to treatment. _COPD with mild exacerbation: Decrease Solu-Medrol to 20 mg twice a day continue Pulmicort DuoNeb and oxygen along with CPAP through the night has been doing very well. _Post left above-knee amputation from few weeks ago has been recovering nicely from it, post right above-knee amputation from yesterday the area is healing well continue stump and transmission inspector continue with to watch for any complication afterward. _Severe PAD of right lower extremity: With worsening gangrenous change along with worsening infection and cellulitis the original plan was for amputation on which should be able to carry on at this point. _A-fib with RVR: Will hold off on Eliquis for now but continue metoprolol titrate 50 mg twice a day. Pulse rate remained well-controlled at this point. _Hypertension: Remain on metoprolol and amlodipine along with Diuretics; his amlodipine should be probably switch eventually to ARB. Blood pressure has been stable and under control. _Gout: With no flareup remain on allopurinol 300 mg daily. _Iron deficiency anemia: Continue multivitamin iron supplement. _Severe nonischemic cardiomyopathy has been on medical management, with ejection fraction of 40-45 percentile he is remain on spironolactone 25 mg a day, lisinopril 10 mg a day, metoprolol titrate 50 mg twice a day still on furosemide 40 mg daily and try to avoid any basal compressor medication such as midodrine. _Type 2 diabetes: Blood sugar still not well-controlled titrate Levemir up to 35 units and NovoLog up to 15 units AC meals furthermore patient might benefit from switching Levemir to once a day either Tresiba or Toujeo. _Congestive heart failure without exacerbation mostly cardiomyopathy will continue metoprolol, furosemide and spironolactone will be beneficial to add ARB at some point if patient is able to tolerate it. Will consult cardiology and prepare for his surgery for medical clearance as well. _Chronic kidney disease: Was mostly stage II has been doing much better on hydration. _Chronic pain syndrome: Has been on hydrocodone_10 mg every 6 hours continues smaller dose of Lyrica or gabapentin as well. _BPH: Resume Flomax watch for any urinary retention. Discussion: Doing very well with the current management continue IV antibiotics patient pulmonary status has improved significantly he will continue to be watch through the weekend and hopefully he will be returned back to [facility] on Tuesday. Objective - Vital Signs Vital signs: Vital Signs Temp 98.3 F 01/27/24 07:10 Pulse 75 01/27/24 07:10 Resp 17 01/27/24 07:10 BP 158/96 01/27/24 07:10 Pulse Ox 97 01/27/24 07:10 FiO2 Intake & Output 01/26/24 01/27/24 01/27/24 18:59 06:59 18:59 Intake Total 801 Output Total 700 100 800 Balance 101 -100 -800 Intake: IV 801 Output: Urine 550 100 800 Estimated Blood Loss 150 Other: Voiding Method Indwelling Catheter - Labs CBC & Chem 7: 01/26/24 05:59 01/26/24 05:59 Labs: Abnormal Lab Results - Last 24 Hours (Table) 01/26/24 01/26/24 01/26/24 Range/Units 11:30 15:02 18:18 POC Glucose (mg/dL) 329 H 278 H 252 H (70-110) mg/dL 01/26/24 01/27/24 Range/Units 20:47 06:34 POC Glucose (mg/dL) 259 H 257 H (70-110) mg/dL Microbiology - Last 24 Hours (Table) 01/23/24 20:15 Blood Culture - Preliminary Blood 01/23/24 20:30 Blood Culture - Preliminary Blood 01/24/24 15:19 Gram Stain - Final Sputum Sputum Culture - Final
[2024-01-27 11:33] LABS: Glucose,Whole Blood 275 mg/dL (70-110)
[2024-01-27 11:34] LABS: Basophils % (A) 0 %; Eosinophils % (A) 1 %; HCT 34.1 % (39.0-53.0); HGB 10.5 gm/dL (13.0-17.5); Hypochromasia Marked; Lymphocytes # (A) 0.3 k/uL (1.0-4.8); Lymphocytes % (A) 5 %; MCH 30.7 pg (25.0-35.0); MCHC 30.8 g/dL (31.0-37.0); MCV 99.6 fL (80.0-100.0); Macrocytosis Slight; Mean Platelet Volume 7.8; Monocytes # (A) 0.3 k/uL (0-1.0); Monocytes % (A) 4 %; Neutrophils # (A) 6.4 k/uL (1.3-7.7); Neutrophils % (A) 90 %; Platelet Count 142 k/uL (150-450); RBC 3.43 m/uL (4.30-5.90); RDW 14.5 % (11.5-15.5); WBC 7.2 k/uL (3.8-10.6)
[2024-01-27 11:47] LABS: African American GFR (CKD) 88 (>60 ml/min/1.73 sqM); Non-African American GFR(CKD) 76 (>60 ml/min/1.73 sqM)
[2024-01-27] MEDS: VANCOMYCIN TROUGH DUE 1 EACH MISC MISCELLANE ONE (12:13)
[2024-01-27] MEDS: INSULIN ASPART (NovoLOG) 100 UNIT/ML VIAL SQ SCH (12:25)
--- NOTE | 2024-01-27 14:21 | P.PN ---
Subjective Progress Note Date: 01/27/24 Principal diagnosis: Right lower extremity nonhealing wound Patient seen and examined today as a follow-up. He is postop day #1 for right bkxvb-fmt-whlv amputation. Patient states pain is well-managed. He does not really have any pain. He has a dressing with Kahlil wrap intact with saturation. Denies any shortness of breath, chest pain, abdominal pain, nausea or vomiting. He has been afebrile. Hemoglobin 10.5 Objective - Vital Signs Vital signs: Vital Signs Temp 98.7 F 01/27/24 13:25 Pulse 88 01/27/24 13:25 Resp 17 01/27/24 13:25 BP 173/87 01/27/24 13:25 Pulse Ox 94 L 01/27/24 13:25 FiO2 Intake & Output 01/26/24 01/27/24 01/27/24 18:59 06:59 18:59 Intake Total 801 Output Total 700 100 800 Balance 101 -100 -800 Intake: IV 801 Output: Urine 550 100 800 Estimated Blood Loss 150 Other: Voiding Method Indwelling Catheter Indwelling Catheter - Exam General appearance: The patient is alert, oriented, appears in no acute distress. Obese. HET: Head is normocephalic and atraumatic. Pupils are equal and reactive. Neck: Supple. Heart: Regular. Lungs: Equal expansion, normal respiratory effort. Abdomen: Soft, nontender, nondistended. Extremities: Left gxlkj-byg-wxox amputation well-healed. Right vtlon-qtz-djec amputation with dressing and Kahlil wrap, there is some saturation to dressing. Neurological: No focal deficits. Strength and sensation are grossly intact. - Labs CBC & Chem 7: 01/27/24 11:08 01/27/24 11:08 Labs: Abnormal Lab Results - Last 24 Hours (Table) 01/26/24 01/26/24 01/26/24 Range/Units 15:02 18:18 20:47 RBC (4.30-5.90) m/uL Hgb (13.0-17.5) gm/dL Hct (39.0-53.0) % MCHC (31.0-37.0) g/dL Plt Count (150-450) k/uL Lymphocytes # (1.0-4.8) k/uL POC Glucose (mg/dL) 278 H 252 H 259 H (70-110) mg/dL 01/27/24 01/27/24 01/27/24 Range/Units 06:34 11:08 11:31 RBC 3.43 L (4.30-5.90) m/uL Hgb 10.5 L (13.0-17.5) gm/dL Hct 34.1 L (39.0-53.0) % MCHC 30.8 L (31.0-37.0) g/dL Plt Count 142 L (150-450) k/uL Lymphocytes # 0.3 L (1.0-4.8) k/uL POC Glucose (mg/dL) 257 H 275 H (70-110) mg/dL Microbiology - Last 24 Hours (Table) 01/23/24 20:15 Blood Culture - Preliminary Blood 01/23/24 20:30 Blood Culture - Preliminary Blood Assessment and Plan Assessment: 1. Right lower extremity nonhealing wounds status post right cazba-sws-whzw amputation 2. Nonambulatory 3. Shortness of breath 4. COPD 5. Sleep apnea on BiPAP 6. Atrial fibrillation on Eliquis 7. Coronary artery disease Plan: 1. May resume anticoagulation 2. Daily dressing change with Adaptic, 4 x 4, Kerlix and secure with tape. 3. Diet as tolerated 4. 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 Rest of medical management per primary medical team 6. Patient is cleared from vascular surgery for discharge once other dow medically cleared. Follow-up with Dr. Whitten in 2 weeks. Thank you for this consultation. The impression and plan of care has been dictated as directed. Dr. Wright I performed a history and examination of this patient, discussed the same with the dictator. I agree with the dictator's note ,documented as a scribe. Any additional findings or plans will be noted.
[2024-01-27] MEDS: hydrALAZINE HCL 25 MG TAB PO PRN (14:28)
[2024-01-27 16:52] LABS: Glucose,Whole Blood 309 mg/dL (70-110)
[2024-01-27 19:32] LABS: NT-Pro-B-Type Natriuretic Pept 3248 pg/mL (0-125)
[2024-01-27 21:34] LABS: Glucose,Whole Blood 347 mg/dL (70-110)
[2024-01-27] MEDS: INSULIN DETEMIR (LEVEMIR) 100 UNIT/ML SYR SQ SCH (22:09)
[2024-01-28] MEDS: VANCOMYCIN 1,500 MG in SODIUM CHLORIDE 0.9% 500 ML 500 ML IVPB SCH (04:37)
[2024-01-28 06:16] LABS: Glucose,Whole Blood 219 mg/dL (70-110)
[2024-01-28 09:14] LABS: African American GFR (CKD) 79 (>60 ml/min/1.73 sqM); Non-African American GFR(CKD) 69 (>60 ml/min/1.73 sqM)
[2024-01-28 11:15] LABS: Glucose,Whole Blood 332 mg/dL (70-110)
[2024-01-28] MEDS: INSULIN ASPART (NovoLOG) 100 UNIT/ML VIAL SQ SCH (13:17)
--- NOTE | 2024-01-28 15:35 | P.PN ---
Subjective Progress Note Date: 01/27/24 Principal diagnosis: Reason for follow-up is pneumonia and right lower extremity wound Patient is a 73-year-old male with a past medical history significant for diabetes mellitus hypertension COPD heart failure atrial fibrillation sleep apnea family history left juund-qyv-sexo amputation presenting to the hospital for evaluation of increasing shortness of breath patient has been diagnosed with pneumonia patient also has a chronic nonhealing wound to the right lower extremity, the patient is s/p right goppu-fks-ywhm amputation completed on 01/26/2024. On today's evaluation that is 01/27/2024,the patient denies any fever or any chills, patient is breathing comfortably on 2 L nasal cannula oxygen, the patient denies chest pain shortness of breath and no worsening cough, patient denies abdominal pain, no nausea vomiting or diarrhea. Patient did have white count of 7.2, creatinine 0.99 Objective - Vital Signs Vital signs: Vital Signs Temp 98.7 F 01/27/24 13:25 Pulse 80 01/27/24 15:11 Resp 17 01/27/24 13:25 BP 173/87 01/27/24 13:25 Pulse Ox 94 L 01/27/24 13:25 FiO2 Intake & Output 01/26/24 01/27/24 01/27/24 18:59 06:59 18:59 Intake Total 801 Output Total 700 100 800 Balance 101 -100 -800 Intake: IV 801 Output: Urine 550 100 800 Estimated Blood Loss 150 Other: Voiding Method Indwelling Catheter Indwelling Catheter - Exam GENERAL DESCRIPTION: An elderly male lying in bed in no distress RESPIRATORY SYSTEM: Unlabored breathing , decreased breath sounds at bases HEART: S1 S2 regular rate and rhythm , ABDOMEN: Soft , no tenderness EXTREMITIES: Right AKA stump is currently dressed - Labs CBC & Chem 7: 01/27/24 11:08 01/28/24 08:21 Labs: Abnormal Lab Results - Last 24 Hours (Table) 01/26/24 01/26/24 01/27/24 Range/Units 18:18 20:47 06:34 RBC (4.30-5.90) m/uL Hgb (13.0-17.5) gm/dL Hct (39.0-53.0) % MCHC (31.0-37.0) g/dL Plt Count (150-450) k/uL Lymphocytes # (1.0-4.8) k/uL POC Glucose (mg/dL) 252 H 259 H 257 H (70-110) mg/dL 01/27/24 01/27/24 01/27/24 Range/Units 11:08 11:31 16:51 RBC 3.43 L (4.30-5.90) m/uL Hgb 10.5 L (13.0-17.5) gm/dL Hct 34.1 L (39.0-53.0) % MCHC 30.8 L (31.0-37.0) g/dL Plt Count 142 L (150-450) k/uL Lymphocytes # 0.3 L (1.0-4.8) k/uL POC Glucose (mg/dL) 275 H 309 H (70-110) mg/dL Microbiology - Last 24 Hours (Table) 01/24/24 15:19 Legionella Culture - Preliminary Sputum 01/23/24 20:15 Blood Culture - Preliminary Blood 01/23/24 20:30 Blood Culture - Preliminary Blood Assessment and Plan (1) Cellulitis of right leg Current Visit: Yes Status: Acute Code(s): L03.115 - CELLULITIS OF RIGHT L OWER LIMB SNOMED Code(s): 25520988972457244 (2) Bacterial pneumonia Current Visit: Yes Status: Acute Code(s): J15.9 - UNSPECIFIED BACTERIAL PNEUMONIA SNOMED Code(s): 15333184 (3) Venous stasis ulcer of right lower extremity Current Visit: Yes Status: Acute Code(s): I83.019 - VARICOSE VEINS OF RIGHT LOWER EXTREMITY W ULCER OF UNSP SITE; L97.919 - NON-PRS CHRONIC ULC UNSP PRT OF R LOW LEG W UNSP SEVERITY SNOMED Code(s): 6147542584 Plan: 1patient presented to hospital with increasing shortness of breath he also have a cough patient noticed to have right-sided pneumonia in this patient who is a half-way resident will need to cover for the resistant gram-positive as well as gram-negative pathogen. 2patient also have a chronic ulceration to the right lower extremity likely venous stasis concerning for secondary cellulitis with the culture positive for MRSA and Proteus, the patient status post right odqhd-jxd-hnqe amputation has not been any long-term antibiotic before the right lower extremity wound 3blood and sputum cultures currently pending 4patient did have some clinical improvement, will continue with vancomycin pharmacy to dose and cefepime and monitor clinical course closely Dictation was produced using [employer] dictation software. please excuse any grammatical, word or spelling errors. Time with Patient: Less than 30
--- NOTE | 2024-01-28 15:36 | P.PN ---
Subjective Progress Note Date: 01/28/24 Principal diagnosis: Reason for follow-up is pneumonia and right lower extremity wound Patient is a 73-year-old male with a past medical history significant for diabetes mellitus hypertension COPD heart failure atrial fibrillation sleep apnea family history left nmoka-iad-rxae amputation presenting to the hospital for evaluation of increasing shortness of breath patient has been diagnosed with pneumonia patient also has a chronic nonhealing wound to the right lower extremity, the patient is s/p right ucqby-eix-iqvb amputation completed on 01/26/2024. On today's evaluation that is 01/28/2024,the patient remains to be afebrile, patient is on room air not requiring supplemental oxygen and denies any shortness of breath no chest pain and cough is decreased in intensity.Patient denies having any nausea or vomiting, no abdominal pain and no diarrhea has been reported. Patient did have a creatinine 1.08 sputum culture has been negative so far Objective - Vital Signs Vital signs: Vital Signs Temp 98.0 F 01/28/24 14:00 Pulse 73 01/28/24 14:00 Resp 18 01/28/24 14:00 BP 144/80 01/28/24 14:00 Pulse Ox 96 01/28/24 14:00 FiO2 Intake & Output 01/27/24 01/28/24 01/28/24 18:59 06:59 18:59 Output Total 2600 1500 Balance -2600 -1500 Output: Urine 2600 1500 Other: Voiding Method Indwelling Catheter Indwelling Catheter Indwelling Catheter - Exam GENERAL DESCRIPTION: An elderly male lying in bed in no distress RESPIRATORY SYSTEM: Unlabored breathing , decreased breath sounds at bases HEART: S1 S2 regular rate and rhythm , ABDOMEN: Soft , no tenderness EXTREMITIES: Right AKA stump is currently dressed - Labs CBC & Chem 7: 01/27/24 11:08 01/28/24 08:21 Labs: Abnormal Lab Results - Last 24 Hours (Table) 01/24/24 01/27/24 01/27/24 Range/Units 06:35 16:51 21:33 POC Glucose (mg/dL) 309 H 347 H (70-110) mg/dL NT-Pro-B Natriuret Pep 3248 H (0-125) pg/mL 01/28/24 01/28/24 Range/Units 06:14 11:13 POC Glucose (mg/dL) 219 H 332 H (70-110) mg/dL NT-Pro-B Natriuret Pep (0-125) pg/mL Microbiology - Last 24 Hours (Table) 01/24/24 15:19 Legionella Culture - Preliminary Sputum Assessment and Plan (1) Cellulitis of right leg Current Visit: Yes Status: Acute Code(s): L03.115 - CELLULITIS OF RIGHT LOWER LIMB SNOMED Code(s): 73283978307634197 (2) Bacterial pneumonia Current Visit: Yes Status: Acute Code(s): J15.9 - UNSPECIFIED BACTERIAL PNEUMONIA SNOMED Code(s): 94052598 (3) Venous stasis ulcer of right lower extremity Current Visit: Yes Status: Acute Code(s): I83.019 - VARICOSE VEINS OF RIGHT LOWER EXTREMITY W ULCER OF UNSP SITE; L97.919 - NON-PRS CHRONIC ULC UNSP PRT OF R LOW LEG W UNSP SEVERITY SNOMED Code(s): 9993767510 Plan: 1patient presented to hospital with increasing shortness of breath he also have a cough patient noticed to have right-sided pneumonia in this patient who is a long-term resident will need to cover for the resistant gram-positive as well as gram-negative pathogen. 2patient also have a chronic ulceration to the right lower extremity likely venous stasis concerning for secondary cellulitis with the culture positive for MRSA and Proteus, the patient status post right tjslv-fvz-ujmq amputation has not been any long-term antibiotic before the right lower extremity wound 3blood and sputum cultures so far negative 4patient did have some clinical improvement, patient to continue with the hope fully transition to oral antibiotic on discharge Dictation was produced using [employer] dictation software. please excuse any grammatical, word or spelling errors. Time with Patient: Less than 30
[2024-01-28 16:22] LABS: Glucose,Whole Blood 335 mg/dL (70-110)
[2024-01-28] MEDS ORDERED: SODIUM CHLORIDE 0.9% 250 ML BAG ONE (21:31)
[2024-01-28] MEDS ORDERED: VANCOMYCIN 1,000 MG VIAL ONE (21:31)
[2024-01-28 21:54] LABS: Glucose,Whole Blood 240 mg/dL (70-110)
[2024-01-28] MEDS: INSULIN DETEMIR (LEVEMIR) 100 UNIT/ML SYR SQ SCH (22:30)
[2024-01-29 06:29] LABS: Glucose,Whole Blood 338 mg/dL (70-110)
[2024-01-29 09:34] LABS: HCT 34.5 % (39.6-50.0); HGB 10.4 g/dL (13.0-17.0); MCHC 30.1 g/dL (32.0-37.0); MCV 99.4 FL (80.0-97.0); Mean Platelet Volume 10.7 FL (9.5-12.2); NRBC Per 100 WBC 0 X 10*3/uL (0.00-0.01); Platelet Count 128 X 10*3/uL (140-440); RBC 3.47 X 10*6/uL (4.40-5.60); RDW 13.8 % (11.5-14.5); WBC 8.05 X 10*3/uL (4.50-10.00)
[2024-01-29 09:42] LABS: ALT 35 U/L (10-49); AST 27 U/L (14-35); Albumin 3.4 g/dL (3.8-4.9); Albumin/Globulin Ratio 1.42 Ratio (1.60-3.17); Alkaline Phosphatase 156 U/L (41-126); BUN/Creat Ratio 43.27 Ratio (12.00-20.00); Blood Urea Nitrogen 47.6 mg/dL (9.0-27.0); Calcium 8.9 mg/dL (8.7-10.3); Carbon Dioxide 28.7 mmol/L (21.6-31.8); Chloride 96 mmol/L (96-109); Globulin 2.4 g/dL (1.6-3.3); Glucose 324 mg/dL (70-110); Potassium 5.6 mmol/L (3.5-5.5); Sodium 133 mmol/L (135-145); Total Bilirubin 0.3 mg/dL (0.3-1.2); Total Protein 5.8 g/dL (6.2-8.2)
[2024-01-29 11:33] LABS: Glucose,Whole Blood 360 mg/dL (70-110)
[2024-01-29 13:40] LABS: NT-Pro-B-Type Natriuretic Pept 3438 pg/mL (0-125)
--- NOTE | 2024-01-29 15:51 | P.PN ---
Subjective Progress Note Date: 01/29/24 Principal diagnosis: Reason for follow-up is pneumonia and right lower extremity wound Patient is a 73-year-old male with a past medical history significant for diabetes mellitus hypertension COPD heart failure atrial fibrillation sleep apnea family history left eqyeg-hpo-puid amputation presenting to the hospital for evaluation of increasing shortness of breath patient has been diagnosed with pneumonia patient also has a chronic nonhealing wound to the right lower extremity, the patient is s/p right jijmi-tni-kzwy amputation completed on 01/26/2024. On today's evaluation that is 01/29/2024, the patient continues to be afebrile, the patient is on 3 L current oxygen and breathing comfortably, the Pt denies having any chest pain or worsening cough, the patient denies having any abdominal pain no vomiting or any diarrhea has been reported by the nursing staff, pain to the right AKA stump is currently controlled Patient white count is 8.05, creatinine is 1.1 sputum has been negative so far Objective - Vital Signs Vital signs: Vital Signs Temp 98.1 F 01/29/24 14:43 Pulse 85 01/29/24 15:43 Resp 18 01/29/24 14:43 BP 138/74 01/29/24 14:43 Pulse Ox 99 01/29/24 14:43 FiO2 Intake & Output 01/28/24 01/29/24 01/29/24 18:59 06:59 18:59 Output Total 3200 1400 Balance -3200 -1400 Output: Urine 3200 1400 Other: Voiding Method Indwelling Catheter Indwelling Catheter Indwelling Catheter - Exam GENERAL DESCRIPTION: An elderly male lying in bed in no distress RESPIRATORY SYSTEM: Unlabored breathing , decreased breath sounds at bases HEART: S1 S2 regular rate and rhythm , ABDOMEN: Soft , no tenderness EXTREMITIES: Right AKA stump is currently dressed - Labs CBC & Chem 7: 01/29/24 06:04 01/29/24 06:04 Labs: Abnormal Lab Results - Last 24 Hours (Table) 01/28/24 01/28/24 01/29/24 Range/Units 16:20 21:30 06:04 RBC 3.47 L (4.40-5.60) X 10*6/uL Hgb 10.4 L (13.0-17.0) g/dL Hct 34.5 L (39.6-50.0) % MCV 99.4 H (80.0-97.0) FL MCHC 30.1 L (32.0-37.0) g/dL Plt Count 128 L (140-440) X 10*3/uL Sodium (135-145) mmol/L Potassium (3.5-5.5) mmol/L BUN (9.0-27.0) mg/dL BUN/Creatinine Ratio (12.00-20.00) Ratio Glucose (70-110) mg/dL POC Glucose (mg/dL) 335 H 240 H (70-110) mg/dL Alkaline Phosphatase (41-126) U/L NT-Pro-B Natriuret Pep (0-125) pg/mL Total Protein (6.2-8.2) g/dL Albumin (3.8-4.9) g/dL Albumin/Globulin Ratio (1.60-3.17) Ratio 01/29/24 01/29/24 01/29/24 Range/Units 06:04 06:22 11:32 RBC (4.40-5.60) X 10*6/uL Hgb (13.0-17.0) g/dL Hct (39.6-50.0) % MCV (80.0-97.0) FL MCHC (32.0-37.0) g/dL Plt Count (140-440) X 10*3/uL Sodium 133 L (135-145) mmol/L Potassium 5.6 H (3.5-5.5) mmol/L BUN 47.6 H (9.0-27.0) mg/dL BUN/Creatinine Ratio 43.27 H (12.00-20.00) Ratio Glucose 324 H (70-110) mg/dL POC Glucose (mg/dL) 338 H 360 H (70-110) mg/dL Alkaline Phosphatase 156 H (41-126) U/L NT-Pro-B Natriuret Pep 3438 H (0-125) pg/mL Total Protein 5.8 L (6.2-8.2) g/dL Albumin 3.4 L (3.8-4.9) g/dL Albumin/Globulin Ratio 1.42 L (1.60-3.17) Ratio Microbiology - Last 24 Hours (Table) 01/23/24 20:15 Blood Culture - Final Blood 01/23/24 20:30 Blood Culture - Final Blood Assessment and Plan (1) Cellulitis of right leg Current Visit: Yes Status: Acute Code(s): L03.115 - CELLULITIS OF RIGHT LOWER LIMB SNOMED Code(s): 82053164490395838 (2) Bacterial pneumonia Current Visit: Yes Status: Acute Code(s): J15.9 - UNSPECIFIED BACTERIAL PNEUMONIA SNOMED Code(s): 94454827 (3) Venous stasis ulcer of right lower extremity Current Visit: Yes Status: Acute Code(s): I83.019 - VARICOSE VEINS OF RIGHT LOWER EXTREMITY W ULCER OF UNSP SITE; L97.919 - NON-PRS CHRONIC ULC UNSP PRT OF R LOW LEG W UNSP SEVERITY SNOMED Code(s): 6073668777 Plan: 1patient presented to hospital with increasing shortness of breath he also have a cough patient noticed to have right-sided pneumonia in this patient who is a senior care resident will need to cover for the resistant gram-positive as well as gram-negative pathogen. 2patient also have a chronic ulceration to the right lower extremity likely venous stasis concerning for secondary cellulitis with the culture positive for MRSA and Proteus, the patient status post right mugat-uuo-vvvs amputation 3blood and sputum cultures so far negative 4patient did have some clinical improvement, patient to continue with cefepime and vancomycin while inpatient transition to oral Ceftin on discharge Dictation was produced using [employer] dictation software. please excuse any grammatical, word or spelling errors.
[2024-01-29 16:16] LABS: Glucose,Whole Blood 309 mg/dL (70-110)
--- NOTE | 2024-01-29 17:31 | P.PN ---
Subjective Progress Note Date: 01/28/24 HISTORY OF PRESENT ILLNESS: 73-year-old male with active medical history of atrial fibrillation, CAD, congestive heart failure, hypertension, hyperlipidemia, benign prostatic hyper trophy, lymphedema, osteoarthritis, PVD, sleep apnea, chronic kidney disease, lymphedema, ulcer and nonhealing wound of both lower extremity, post left above- knee amputation was waiting to go for right knee amputation as well. The patient had Last surgical intervention on October 27, 2023 with the hospital October 28, 2023 was scheduled coming back to the hospital in the next 2 weeks for the right leg amputation. He was transferred to [facility] emergency department from [facility] because of significant shortness of breath with dyspnea and congestion with cough productive phlegm has not wear his CPAP last few nights which makes him slightly red more congested also patient developed to have slight nausea and vomiting he has been wearing 2 L O2 on more regular basis but pulse ox become lower on oxygen. Also was running slightly with low-grade temperature and chills. Testing at [facility] with COVID along with influenza were negative. In the having chest x-ray which shows significant decreased lung volume with limited inspiration with right lower lobe pneumonia and infiltrate. Original blood test showing lactic acid 2.4, blood sugars mildly elevated normal kidney function sli ghtly with elevated alk phos with normal proBNP normal troponin digoxin 0.7 pulmonary culture with influenza AB RSV and COVID are all negative. White blood cell was only 6300 with anemia has improved compared to his last admission. The patient was diagnosed with right lower lobe pneumonia aspiration most likely started on azithromycin along with Rocephin will continue O2 admit patient to the hospital with updraft and current management. 01/24/2024: The patient was continued on antibiotics for treatment of his pneumonia seen vascular his right leg gangrenous change is quite severe with quite a bit of drainage and more infectious than before, will continue current antibiotic that might help to expand the coverage into product like Unasyn and vancomycin for better coverage for the leg. The final decision of amputation is made. Original plan that patient was scheduled for amputation on this week which probably the plan can be carried out at this point. Will request cardiology consultation for the severity of the nonischemic cardiomyopathy for medical clearance and prepare for the amputation on also will ask infectious disease was seen patient will continue with the current treatment for pneumonia along with right leg nonhealing infection and cellulitis. 01/25/2024: Continue current antibiotics, patient be seen infectious disease, also consultation for cardiology was made for clearance. As of now patient scheduled for above-knee amputation of the right side tomorrow we will continue current management. His dyspnea and shortness of breath has improved significantly continue aggressive treatment for COPD, echocardiogram was done and showed slightly decreased ejection fraction compatible with his cardiomyopathy from before the patient again be seen in cardiology for clearance before his surgery. His blood sugar continue to be quite bit high with his Solu-Medrol will reduce Solu-Medrol to 40 mg twice a day for now continue aggressive management with long and short term insulin. Control blood sugar. 01/26/2024: Patient continued to have significant hyperglycemia reduce Solu-Medrol to 20 mg twice daily and increase Levemir and NovoLog today try to keep blood sugar under 200. Patient still waiting for cardiology consultation and will be going for right above-knee amputation today as planned early by vascular. His dyspnea and shortness of breath has improved significantly with the treating his pneumonia and COPD patient seems to do much better so far. Pain is under control and patient stable from medical standpoint for his procedure today. 01/27/2024: Patient had right above-knee amputation the stump looking good no sign of bleed so far. Cardiology seen patient yesterday and recommendation is to continue current management his BNP was mildly elevated with low ejection fraction at 40-45 percentile which patient currently remain on low-dose of lisinopril at 10 mg daily still on metoprolol titrate 50 mg twice a day and furosemide 40 mg daily avoid midodrine which might aggravate congestive heart failure at this point specially if the blood pressure is holding well. Will continue to watch patient hemodynamic status from day-to-day basis at this point. His recovery hopefully will be faster from [place] specially after the amputation infection is gone and ensured infectious disease might leave further recommend ation for IV antibiotic when he goes back to [facility] for period of time might be up to 2 weeks currently being treated for Proteus mirabilis along with MRSA and continue to watch vancomycin level to keep close target at 15 he is not on Unasyn but cefepime which is his culture sensitivity is very sensitive to it. 01/28/2024: He Is lying in bed comfortable stomach does not show any sign of bleed at this point, will continue IV antibiotics with vancomycin along with cefepime until shortly before his discharge probably will be switched to oral antibiotic he still been treated for the severity of the Proteus mirabilis methicillin- resistant along with his pneumonia. No chest pain or angina and no worsening shortness of breath consistent with heart failure but mostly mild bronchitis and early pneumonia. Blood sugar still quite bit high keep adjusting his insulin to keep blood sugar below 150 he is remain on Solu-Medrol 20 mg till tomorrow and be switch or quit completely. REVIEW OF SYSTEMS: CONSTITUTIONAL: Well-developed mild respiratory distress looks slightly dyspneic.. EYES: No icterus sclerae, no conjunctivitis. EARS, NOSE, MOUTH, THROAT, and FACE: No sore throat, lymphadenopathy, carotid bruits or deformity. RESPIRATORY: Positive shortness of breath with mild cough and wheezes with productive phlegm. CARDIOVASCULAR: Positive PND orthopnea palpitation with history of A-fib and cardiomyopathy. GASTROINTESTINAL: No Abd pain, Nausea or vomiting, no Diarrhea or constipation, No GI Bleed, no distention or masses. GENITOURINARY: Recurrent UTI with BPH and incontinence. INTEGUMENT/BREAST: Negative for any muscular injury with mild osteoarthritis.. Post left-sided above-knee amputation HEMATOLOGIC/LYMPHATIC: History of anemia with no bleeding disorders. MUSCULOSKELTAL: Generalized muscle and joint pain. Post above-knee amputation of the left side with slight nonhealing ulcer on the right side. NEURLOGICAL: No LOC, Sz or syncope, blurred vision dizziness or abnormality.. BEHAVIORAL/PSYCH: Negative. ENDOCRINE: Negative. PHYSICAL EXAMINATION: General Appearance: Alert, cooperative, mildly dyspneic and mild distress. Neck HEENT: Supple, no lymphadenopathy, no thyroid enlargement, no carotid bruits. Lungs: Decreased breath sound bilaterally with fine rhonchi positive mild expiratory wheezes. And crackles in the right base. Chest Wall: Decreased expansion with deep inspiration no tenderness and no deformity was found on exam, no costochondral pain or discomfort. Heart: Irregular rate and rhythm, S1, S2 positive S3 positive systolic murmur. Back: Symmetric, no curvature, ROM normal, no CVA tenderness. Severe scoliosis and kyphosis. Abdomen: Soft, non-tender, bowel sounds active all four quadrants, no masses, no organomegaly. Extremities: Left above-knee amputation, on the right side still have nonhealing ulcer. Not able to feel any pulse on the right side. Pulses: No pulse. Skin: Skin color, texture, tugor normal, no rashes or lesions. Neurologic: Alert oriented x3 cranial nerves II through XII intact, no motor deficit, not able to do gait exam. ASSESSMENT AND PLAN: _Severe gangrenous change on the right leg: Post above-knee amputation done successfully still on vancomycin and cefepime treated for Proteus and MRSA. _Right lower lobe pneumonia: Most likely aspiration with possible close community-acquired pneumonia: Will switch antibiotic management to probably vancomycin and cefepime per infectious disease seen patient. Seems to respond very well to treatment. _Severe dyspnea and shortness of breath with mild respiratory failure: Combination of congestive heart failure, COPD and right-sided pneumonia much better so far continue current management. _COPD with mild exacerbation: Solu-Medrol still at 20 mg twice a day which will be DC'd tomorrow, continue DuoNeb and Pulmicort. 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 _Severe PAD of right lower extremity: With worsening gangrenous change along with worsening infection and cellulitis the original plan was for amputation on which should be able to carry on at this point. _A-fib with RVR: Will hold off on Eliquis for now but continue metoprolol titrate 50 mg twice a day. Pulse rate remained well-controlled at this point. _Hypertension: Remain on metoprolol and amlodipine along with Diuretics; his amlodipine should be probably switch eventually to ARB. Blood pressure has been stable and under control. _Gout: With no flareup remain on allopurinol 300 mg daily. _Iron deficiency anemia: Continue multivitamin iron supplement. _Severe nonischemic cardiomyopathy, still seen cardiology and has been on medical management, with ejection fraction of 40-45 percentile he is remain on spironolactone 25 mg a day, lisinopril 10 mg a day, metoprolol titrate 50 mg twice a day still on furosemide 40 mg daily and try to avoid any basal compressor medication such as midodrine. _Type 2 diabetes: Blood sugars ointment remain current on 45 units at nighttime with NovoLog 15 units AC meals plus sliding _Congestive heart failure without exacerbation mostly cardiomyopathy will continue metoprolol, furosemide and spironolactone will be beneficial to add ARB at some point if patient is able to tolerate it. Will consult cardiology and prepare for his surgery for medical clearance as well. _Chronic kidney disease: Was mostly stage II has been doing much better on hydration. _Chronic pain syndrome: Has been on hydrocodone_10 mg every 6 hours continues smaller dose of Lyrica or gabapentin as well. _BPH: Resume Flomax watch for any urinary retention. Discussion: He is doing much better expected to be discharged to [facility] on Tuesday in the meanwhile finalize his plan with IV antibiotic along with his insulin management. Objective - Vital Signs Vital signs: Vital Signs Temp 97.5 F L 01/28/24 08:00 Pulse 80 01/28/24 09:23 Resp 17 01/28/24 08:00 BP 141/89 01/28/24 08:00 Pulse Ox 96 01/28/24 09:12 FiO2 Intake & Output 01/27/24 01/28/24 01/28/24 18:59 06:59 18:59 Output Total 2600 1500 Balance -2600 -1500 Output: Urine 2600 1500 Other: Voiding Method Indwelling Catheter Indwelling Catheter - Labs CBC & Chem 7: 01/29/24 06:04 01/29/24 06:04 Labs: Abnormal Lab Results - Last 24 Hours (Table) 01/24/24 01/27/24 01/27/24 Range/Units 06:35 11:08 11:31 RBC 3.43 L (4.30-5.90) m/uL Hgb 10.5 L (13.0-17.5) gm/dL Hct 34.1 L (39.0-53.0) % MCHC 30.8 L (31.0-37.0) g/dL Plt Count 142 L (150-450) k/uL Lymphocytes # 0.3 L (1.0-4.8) k/uL POC Glucose (mg/dL) 275 H (70-110) mg/dL NT-Pro-B Natriuret Pep 3248 H (0-125) pg/mL 01/27/24 01/27/24 01/28/24 Range/Units 16:51 21:33 06:14 RBC (4.30-5.90) m/uL Hgb (13.0-17.5) gm/dL Hct (39.0-53.0) % MCHC (31.0-37.0) g/dL Plt Count (150-450) k/uL Lymphocytes # (1.0-4.8) k/uL POC Glucose (mg/dL) 309 H 347 H 219 H (70-110) mg/dL NT-Pro-B Natriuret Pep (0-125) pg/mL Microbiology - Last 24 Hours (Table) 01/24/24 15:19 Legionella Culture - Preliminary Sputum
--- NOTE | 2024-01-29 17:36 | P.PN ---
Subjective Progress Note Date: 01/29/24 HISTORY OF PRESENT ILLNESS: 73-year-old male with active medical history of atrial fibrillation, CAD, congestive heart failure, hypertension, hyperlipidemia, benign prostatic hyper trophy, lymphedema, osteoarthritis, PVD, sleep apnea, chronic kidney disease, lymphedema, ulcer and nonhealing wound of both lower extremity, post left above- knee amputation was waiting to go for right knee amputation as well. The patient had Last surgical intervention on October 27, 2023 with the hospital October 28, 2023 was scheduled coming back to the hospital in the next 2 weeks for the right leg amputation. He was transferred to [facility] emergency department from [facility] because of significant shortness of breath with dyspnea and congestion with cough productive phlegm has not wear his CPAP last few nights which makes him slightly red more congested also patient developed to have slight nausea and vomiting he has been wearing 2 L O2 on more regular basis but pulse ox become lower on oxygen. Also was running slightly with low-grade temperature and chills. Testing at [facility] with COVID along with influenza were negative. In the having chest x-ray which shows significant decreased lung volume with limited inspiration with right lower lobe pneumonia and infiltrate. Original blood test showing lactic acid 2.4, blood sugars mildly elevated normal kidney function sli ghtly with elevated alk phos with normal proBNP normal troponin digoxin 0.7 pulmonary culture with influenza AB RSV and COVID are all negative. White blood cell was only 6300 with anemia has improved compared to his last admission. The patient was diagnosed with right lower lobe pneumonia aspiration most likely started on azithromycin along with Rocephin will continue O2 admit patient to the hospital with updraft and current management. 01/24/2024: The patient was continued on antibiotics for treatment of his pneumonia seen vascular his right leg gangrenous change is quite severe with quite a bit of drainage and more infectious than before, will continue current antibiotic that might help to expand the coverage into product like Unasyn and vancomycin for better coverage for the leg. The final decision of amputation is made. Original plan that patient was scheduled for amputation on this week which probably the plan can be carried out at this point. Will request cardiology consultation for the severity of the nonischemic cardiomyopathy for medical clearance and prepare for the amputation on also will ask infectious disease was seen patient will continue with the current treatment for pneumonia along with right leg nonhealing infection and cellulitis. 01/25/2024: Continue current antibiotics, patient be seen infectious disease, also consultation for cardiology was made for clearance. As of now patient scheduled for above-knee amputation of the right side tomorrow we will continue current management. His dyspnea and shortness of breath has improved significantly continue aggressive treatment for COPD, echocardiogram was done and showed slightly decreased ejection fraction compatible with his cardiomyopathy from before the patient again be seen in cardiology for clearance before his surgery. His blood sugar continue to be quite bit high with his Solu-Medrol will reduce Solu-Medrol to 40 mg twice a day for now continue aggressive management with long and short term insulin. Control blood sugar. 01/26/2024: Patient continued to have significant hyperglycemia reduce Solu-Medrol to 20 mg twice daily and increase Levemir and NovoLog today try to keep blood sugar under 200. Patient still waiting for cardiology consultation and will be going for right above-knee amputation today as planned early by vascular. His dyspnea and shortness of breath has improved significantly with the treating his pneumonia and COPD patient seems to do much better so far. Pain is under control and patient stable from medical standpoint for his procedure today. 01/27/2024: Patient had right above-knee amputation the stump looking good no sign of bleed so far. Cardiology seen patient yesterday and recommendation is to continue current management his BNP was mildly elevated with low ejection fraction at 40-45 percentile which patient currently remain on low-dose of lisinopril at 10 mg daily still on metoprolol titrate 50 mg twice a day and furosemide 40 mg daily avoid midodrine which might aggravate congestive heart failure at this point specially if the blood pressure is holding well. Will continue to watch patient hemodynamic status from day-to-day basis at this point. His recovery hopefully will be faster from [place] specially after the amputation infection is gone and ensured infectious disease might leave further recommend ation for IV antibiotic when he goes back to SNF for period of time might be up to 2 weeks currently being treated for Proteus mirabilis along with MRSA and continue to watch vancomycin level to keep close target at 15 he is not on Unasyn but cefepime which is his culture sensitivity is very sensitive to it. 01/28/2024: He Is lying in bed comfortable stomach does not show any sign of bleed at this point, will continue IV antibiotics with vancomycin along with cefepime until shortly before his discharge probably will be switched to oral antibiotic he still been treated for the severity of the Proteus mirabilis methicillin- resistant along with his pneumonia. No chest pain or angina and no worsening shortness of breath consistent with heart failure but mostly mild bronchitis and early pneumonia. Blood sugar still quite bit high keep adjusting his insulin to keep blood sugar below 150 he is remain on Solu-Medrol 20 mg till tomorrow and be switch or quit completely. 01/29/2024: Infectious disease are in agreement to continue Ceftin as an outpatient in the meanwhile to continue vancomycin and cefepime while he is inpatient till his discharge as a treatment for his severe cellulitis with MRSA and Proteus mirabilis along with his right-sided pneumonia. Fluid congestion is much better, he is wheezing and COPD exacerbation has improved significantly will take him off Solu-Medrol. Continue to pay attention to his blood sugar he is on Levemir 45 units daily along with NovoLog 15 units AC meals plus sliding scales coverage with a steroid going off patient might become hypoglycemic again to watch his symptoms carefully. Testing from yesterday showing creatinine of 4.1 with bun of 47.6 his proBNP was 3438 with his diuretics working good blood sugars only thing still quite been elevated. His stump infection side of his leg has been healing very well. REVIEW OF SYSTEMS: CONSTITUTIONAL: Well-developed mild respiratory distress looks slightly dy spneic.. EYES: No icterus sclerae, no conjunctivitis. EARS, NOSE, MOUTH, THROAT, and FACE: No sore throat, lymphadenopathy, carotid bruits or deformity. RESPIRATORY: Positive shortness of breath with mild cough and wheezes with productive phlegm. CARDIOVASCULAR: Positive PND orthopnea palpitation with history of A-fib and cardiomyopathy. GASTROINTESTINAL: No Abd pain, Nausea or vomiting, no Diarrhea or constipation, No GI Bleed, no distention or masses. GENITOURINARY: Recurrent UTI with BPH and incontinence. INTEGUMENT/BREAST: Negative for any muscular injury with mild osteoarthritis.. Post left-sided above-knee amputation HEMATOLOGIC/LYMPHATIC: History of anemia with no bleeding disorders. MUSCULOSKELTAL: Generalized muscle and joint pain. Post above-knee amputation of the left side with slight nonhealing ulcer on the right side. NEURLOGICAL: No LOC, Sz or syncope, blurred vision dizziness or abnormality.. BEHAVIORAL/PSYCH: Negative. ENDOCRINE: Negative. PHYSICAL EXAMINATION: General Appearance: Alert, cooperative, mildly dyspneic and mild distress. Neck HEENT: Supple, no lymphadenopathy, no thyroid enlargement, no carotid bruits. Lungs: Decreased breath sound bilaterally with fine rhonchi positive mild expiratory wheezes. And crackles in the right base. Chest Wall: Decreased expansion with deep inspiration no tenderness and no deformity was found on exam, no costochondral pain or discomfort. Heart: Irregular rate and rhythm, S1, S2 positive S3 positive systolic murmur. Back: Symmetric, no curvature, ROM normal, no CVA tenderness. Severe scoliosis and kyphosis. Abdomen: Soft, non-tender, bowel sounds active all four quadrants, no masses, no organomegaly. Extremities: Left above-knee amputation, on the right side still have nonhealing ulcer. Not able to feel any pulse on the right side. Pulses: No pulse. Skin: Skin color, texture, tugor normal, no rashes or lesions. Neurologic: Alert oriented x3 cranial nerves II through XII intact, no motor deficit, not able to do gait exam. ASSESSMENT AND PLAN: _Severe gangrenous change on the right leg: Post above-knee amputation done successfully still on vancomycin and cefepime treated for Proteus and MRSA. Switch to oral Ceftin as an outpatient. _Right lower lobe pneumonia: Continue updraft along with oxygen and Pulmicort and as an outpatient switch patient to Ceftin does not need to stay on cefepime and vancomycin anymore. _Severe dyspnea and shortness of breath with mild respiratory failure: Combination of congestive heart failure, COPD and right-sided pneumonia much better so far continue current management. _COPD with mild exacerbation: Solu-Medrol still at 20 mg twice a day which will be DC'd tomorrow, continue DuoNeb and Pulmicort. 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 _Severe PAD of right lower extremity: With worsening gangrenous change along with worsening infection and cellulitis the original plan was for amputation on which should be able to carry on at this point. _A-fib with RVR: Will hold off on Eliquis for now but continue metoprolol titrate 50 mg twice a day. Pulse rate remained well-controlled at this point. _Hypertension: Remain on metoprolol and amlodipine along with Diuretics; his amlodipine should be probably switch eventually to ARB. Blood pressure has been stable and under control. _Gout: With no flareup remain on allopurinol 300 mg daily. _Iron deficiency anemia: Low-grade anemia continue iron supplement. _Severe nonischemic cardiomyopathy, still seen cardiology and has been on medical management, with ejection fraction of 40-45 percentile he is remain on spironolactone 25 mg a day, lisinopril 10 mg a day, metoprolol titrate 50 mg twice a day still on furosemide 40 mg daily and try to avoid any basal compressor medication such as midodrine. _Type 2 diabetes: Blood sugars ointment remain current on 45 units at nighttime with NovoLog 15 units AC meals plus sliding _Congestive heart failure without exacerbation mostly cardiomyopathy will continue metoprolol, furosemide and spironolactone will be beneficial to add ARB at some point if patient is able to tolerate it. Will consult cardiology and prepare for his surgery for medical clearance as well. _Chronic kidney disease: Was mostly stage II has been doing much better on hydration. _Chronic pain syndrome: Is off IV pain management Will resume hydrocodone orally along with gabapentin 100 mg 3 times a day. _BPH: Resume Flomax no sign of urinary retention or obstruction. Discussion: Again as of today looking for possible discharge tomorrow with on Tuesday. Objective - Vital Signs Vital signs: Vital Signs Temp 98.1 F 01/29/24 14:43 Pulse 85 01/29/24 15:43 Resp 18 01/29/24 14:43 BP 138/74 01/29/24 14:43 Pulse Ox 99 01/29/24 14:43 FiO2 Intake & Output 01/28/24 01/29/24 01/29/24 18:59 06:59 18:59 Output Total 3200 1400 650 Balance -3200 -1400 -650 Output: Urine 3200 1400 650 Other: Voiding Method Indwelling Catheter Indwelling Catheter Indwelling Catheter - Labs CBC & Chem 7: 01/29/24 06:04 01/29/24 06:04 Labs: Abnormal Lab Results - Last 24 Hours (Table) 08/03/24 08/04/24 08/04/24 Range/Units 21:30 06:04 06:04 RBC 3.47 L (4.40-5.60) X 10*6/uL Hgb 10.4 L (13.0-17.0) g/dL Hct 34.5 L (39.6-50.0) % MCV 99.4 H (80.0-97.0) FL MCHC 30.1 L (32.0-37.0) g/dL Plt Count 128 L (140-440) X 10*3/uL Sodium 133 L (135-145) mmol/L Potassium 5.6 H (3.5-5.5) mmol/L BUN 47.6 H (9.0-27.0) mg/dL BUN/Creatinine Ratio 43.27 H (12.00-20.00) Ratio Glucose 324 H (70-110) mg/dL POC Glucose (mg/dL) 240 H (70-110) mg/dL Alkaline Phosphatase 156 H (41-126) U/L NT-Pro-B Natriuret Pep 3438 H (0-125) pg/mL Total Protein 5.8 L (6.2-8.2) g/dL Albumin 3.4 L (3.8-4.9) g/dL Albumin/Globulin Ratio 1.42 L (1.60-3.17) Ratio 01/29/24 01/29/24 01/29/24 Range/Units 06:22 11:32 16:15 RBC (4.40-5.60) X 10*6/uL Hgb (13.0-17.0) g/dL Hct (39.6-50.0) % MCV (80.0-97.0) FL MCHC (32.0-37.0) g/dL Plt Count (140-440) X 10*3/uL Sodium (135-145) mmol/L Potassium (3.5-5.5) mmol/L BUN (9.0-27.0) mg/dL BUN/Creatinine Ratio (12.00-20.00) Ratio Glucose (70-110) mg/dL POC Glucose (mg/dL) 338 H 360 H 309 H (70-110) mg/dL Alkaline Phosphatase (41-126) U/L NT-Pro-B Natriuret Pep (0-125) pg/mL Total Protein (6.2-8.2) g/dL Albumin (3.8-4.9) g/dL Albumin/Globulin Ratio (1.60-3.17) Ratio Microbiology - Last 24 Hours (Table) 01/23/24 20:15 Blood Culture - Final Blood 01/23/24 20:30 Blood Culture - Final Blood
[2024-01-29 20:57] LABS: Glucose,Whole Blood 232 mg/dL (70-110)
[2024-01-30] MEDS: VANCOMYCIN TROUGH DUE 1 EACH MISC MISCELLANE ONE (04:27)
[2024-01-30 05:26] LABS: African American GFR (CKD) 78 (>60 ml/min/1.73 sqM); Non-African American GFR(CKD) 67 (>60 ml/min/1.73 sqM)
[2024-01-30 06:01] LABS: Glucose,Whole Blood 238 mg/dL (70-110)
[2024-01-30 07:24] VITALS: BP 117/67; PULSE 69; RESP 18; TEMP 98.2
[2024-01-30] MEDS ORDERED: SENNOSIDES-DOCUSATE SODIUM 1 EACH TAB PO ONE ×2 (08:04→21:27)
[2024-01-30] MEDS ORDERED: METOPROLOL TARTRATE 50 MG TAB ONE ×2 (08:04→18:39)
[2024-01-30] MEDS ORDERED: SPIRONOLACTONE 25 MG TAB ONE ×2 (08:04→18:39)
[2024-01-30] MEDS ORDERED: FAMOTIDINE 20 MG TAB ONE (08:04)
[2024-01-30] MEDS ORDERED: MULTIVITAMINS, THERA 1 EACH TAB ONE (08:04)
[2024-01-30] MEDS ORDERED: HYDROcodone/APAP 10-325MG 1 EACH TAB ONE ×3 (08:05→21:27)
[2024-01-30] MEDS ORDERED: lisinopriL 10 MG TAB ONE (08:05)
[2024-01-30] MEDS ORDERED: FUROSEMIDE 40 MG TAB ONE (08:05)
[2024-01-30] MEDS ORDERED: CEFEPIME 2 GM VIAL IVPB ONE ×2 (08:05→21:28)
[2024-01-30] MEDS ORDERED: SODIUM CHLORIDE 0.9% 100 ML ONE ×2 (08:05→21:29)
[2024-01-30] MEDS ORDERED: FERROUS SULFATE 325 MG TAB PO ONE ×2 (08:05→21:28)
[2024-01-30 11:27] LABS: Glucose,Whole Blood 111 mg/dL (70-110)
[2024-01-30] MEDS ORDERED: GABAPENTIN 100 MG CAP ONE ×2 (13:36→21:27)
[2024-01-30 16:11] LABS: Glucose,Whole Blood 252 mg/dL (70-110)
[2024-01-30] MEDS ORDERED: MAGNESIUM HYDROXIDE 2,400 MG/30 ML CUP ONE (17:03)
[2024-01-30] MEDS ORDERED: INSULIN ASPART (NovoLOG) 100 UNIT/ML VIAL SQ ONE ×2 (18:38→21:28)
[2024-01-30 20:24] LABS: Glucose,Whole Blood 233 mg/dL (70-110)
[2024-01-30] MEDS ORDERED: ISOSORBIDE MONONITRATE ER 30 MG TAB.ER.24H PO ONE (21:26)
[2024-01-30] MEDS ORDERED: TAMSULOSIN 0.4 MG CAP.ER.24H PO ONE (21:27)
[2024-01-30] MEDS ORDERED: allopurinoL 300 MG TAB PO ONE (21:27)
[2024-01-30] MEDS ORDERED: MAGNESIUM OXIDE 400 MG TAB ONE (21:27)
[2024-01-30] MEDS ORDERED: ACETAMINOPHEN TAB 325 MG TAB ONE (23:04)
[2024-01-31 06:03] LABS: Glucose,Whole Blood 136 mg/dL (70-110)
[2024-01-31] MEDS ORDERED: GABAPENTIN 100 MG CAP ONE ×2 (06:31→16:49)
[2024-01-31] MEDS ORDERED: IPRATROPIUM-ALBUTEROL 3 ML NEB ONE ×2 (08:02→20:20)
[2024-01-31] MEDS ORDERED: FAMOTIDINE 20 MG TAB ONE (08:45)
[2024-01-31] MEDS ORDERED: MULTIVITAMINS, THERA 1 EACH TAB ONE (08:45)
[2024-01-31] MEDS ORDERED: METOPROLOL TARTRATE 50 MG TAB ONE ×2 (08:45→16:49)
[2024-01-31] MEDS ORDERED: SPIRONOLACTONE 25 MG TAB ONE ×2 (08:45→16:49)
[2024-01-31] MEDS ORDERED: FERROUS SULFATE 325 MG TAB PO ONE (08:46)
[2024-01-31] MEDS ORDERED: lisinopriL 10 MG TAB ONE (08:46)
[2024-01-31] MEDS ORDERED: SENNOSIDES-DOCUSATE SODIUM 1 EACH TAB PO ONE (08:46)
[2024-01-31] MEDS ORDERED: FUROSEMIDE 40 MG TAB ONE (08:46)
[2024-01-31] MEDS ORDERED: SODIUM CHLORIDE 0.9% 100 ML ONE (08:47)
[2024-01-31] MEDS ORDERED: CEFEPIME 2 GM VIAL IVPB ONE (08:47)
[2024-01-31] MEDS ORDERED: HYDROcodone/APAP 10-325MG 1 EACH TAB ONE ×2 (08:49→16:50)
[2024-01-31 11:46] LABS: Glucose,Whole Blood 226 mg/dL (70-110)
[2024-01-31 16:43] LABS: Glucose,Whole Blood 278 mg/dL (70-110)
[2024-01-31] MEDS ORDERED: INSULIN ASPART (NovoLOG) 100 UNIT/ML VIAL SQ ONE (16:50)
== END 2024-01-31 14:30 | DRG 981 ==
LOC: EC 14:31 → 4SSUR 19:43
PROVIDERS: ADMIT Internal Medicine Geriatric Medicine; ATTEND Internal Medicine Geriatric Medicine
PROC: 0Y6C0Z3 Detachment at Right Upper Leg, Low, Open Approach (ICD-10-PCS; principal; 2024-01-26 14:00)
DX: J69.0 Pneumonitis due to inhalation of food and vomit (principal); J96.90 Respiratory failure, unspecified, unspecified whether with hypoxia or hypercapnia; J44.1 Chronic obstructive pulmonary disease with (acute) exacerbation; E11.52 Type 2 diabetes mellitus with diabetic peripheral angiopathy with gangrene; I13.0 Hypertensive heart and chronic kidney disease with heart failure and stage 1 through stage 4 chronic kidney disease, or unspecified chronic kidney disease; I42.8 Other cardiomyopathies; I70.261 Atherosclerosis of native arteries of extremities with gangrene, right leg; I50.22 Chronic systolic (congestive) heart failure; L03.115 Cellulitis of right lower limb; J44.0 Chronic obstructive pulmonary disease with (acute) lower respiratory infection; E11.22 Type 2 diabetes mellitus with diabetic chronic kidney disease; N18.2 Chronic kidney disease, stage 2 (mild); M10.9 Gout, unspecified; G47.33 Obstructive sleep apnea (adult) (pediatric); E78.5 Hyperlipidemia, unspecified; Z89.612 Acquired absence of left leg above knee; I83.019 Varicose veins of right lower extremity with ulcer of unspecified site; I25.10 Atherosclerotic heart disease of native coronary artery without angina pectoris; I48.91 Unspecified atrial fibrillation; E11.65 Type 2 diabetes mellitus with hyperglycemia; F41.9 Anxiety disorder, unspecified; K76.0 Fatty (change of) liver, not elsewhere classified; M19.042 Primary osteoarthritis, left hand; M19.041 Primary osteoarthritis, right hand; D50.9 Iron deficiency anemia, unspecified; G89.4 Chronic pain syndrome; I27.20 Pulmonary hypertension, unspecified; N40.0 Benign prostatic hyperplasia without lower urinary tract symptoms; Z79.4 Long term (current) use of insulin; Z79.899 Other long term (current) drug therapy; Z87.891 Personal history of nicotine dependence; Z79.01 Long term (current) use of anticoagulants; Z99.81 Dependence on supplemental oxygen; Z86.14 Personal history of Methicillin resistant Staphylococcus aureus infection
CPT/HCPCS: 36415; 71045; 71046; 80053; 80162; 80202; 82565; 83605; 83880; 84145; 84484; 85025; 85027; 85610; 85730; 86850; 86900; 86901; 87040; 87070; 87077; 87186; 87205; 87449; 87636; 93005; 93306; 94640; 94760; 96365; 96366; 96368; 96375; 99285

== ENCOUNTER → 2024-03-27 | Outpatient (CLI) | payer MEDICARE, BC ==
--- NOTE | 2024-03-27 11:44 | US ---
EXAMINATION TYPE: US liver DATE OF EXAM: 03/27/2024 COMPARISON: NONE CLINICAL INDICATION: Male, 73 years old with history of K74.60 UNSPECIFIED CIRRHOSIS OF LIVER; Patien t denies any signs or symptoms at this time; Hx Cholecystectomy TECHNIQUE: Grayscale and color Doppler imaging of the right upper quadrant was performed. 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 Hepatomegaly with findings suggestive of underlying hepatocellular disease or hepatic steatosis. 2. Dilated CBD measuring 7 mm. Stable from prior ultrasound. [facility], , 03/27/2024 11:42 AM
== END | disposition home or self-care (01) ==
LOC: RADUSWWP 09:08
PROVIDERS: ATTEND Internal Medicine Gastroenterology
DX: K74.60 Unspecified cirrhosis of liver
CPT/HCPCS: 76705

== ENCOUNTER 2024-05-15 09:02 | Day surgery (SDC) | payer MEDICARE, BC ==
[2024-05-14 10:01] VITALS: BMI 35.2
[2024-05-15 09:40] VITALS: TEMP 98.1
[2024-05-15] MEDS: IV FLUID CONTINUATION 1,000 ML IV ONE (09:40)
[2024-05-15] MEDS: LACTATED RINGERS 1,000 ML IV SCH (09:41)
[2024-05-15 09:43] LABS: Glucose,Whole Blood 247 mg/dL (70-110)
[2024-05-15] MEDS ORDERED: PROPOFOL 10 MG/ML 20 ML VIAL IV ONE (10:18)
--- NOTE | 2024-05-15 10:42 | P.PCN ---
Date of Procedure: 05/15/24 Procedure(s) Performed: BRIEF HISTORY: Patient is a 72-year-old, pleasant, white male scheduled for an upper endoscopy as a part of screening for esophageal varices. Patient was diagnosed with liver cirrhosis a few years ago.. PROCEDURE PERFORMED: Esophagogastroduodenoscopy biopsy. PREOPERATIVE DIAGNOSIS: History of liver cirrhosis/screening for esophageal varices. IV sedation per anesthesia. PROCEDURE: After informed consent was obtained, the patient was brought into the endoscopy unit. IV sedation was administered by Anesthesia under continuous monitoring. Initially the Olympus GIF-140 video endoscope was inserted into the mouth. Esophagus intubated without any difficulty. It was gradually advanced into the stomach and duodenum and carefully examined. The bulb and the second part of the duodenum appeared normal. The scope at this time was withdrawn to the stomach, adequately insufflated with air, and upon careful examination, mucosa of the antrum, body, mild diffuse gastritis and biopsies were done from this area. Mucosa of the cardia and the fundus appeared normal. The scope was then withdrawn into the esophagus. The GE junction was located at 39 cm from the incisors. The esophagus appeared normal. There were no erosions or ulcerations seen. No evidence of esophageal varices and the patient tolerated the procedure well. IMPRESSION: 1. No evidence of esophageal or gastric varices. 2. Mild diffuse gastritis involving the body and antrum of the stomach. RECOMMENDATIONS: The findings of this examination were discussed with the patient as well as his family. He was advised to follow with the biopsy results. Recommend repeat upper endoscopy in 2 to 3 years to screen for esophageal varices.
[2024-05-15 10:50] VITALS: RESP 18
[2024-05-15 11:05] VITALS: BP 131/91; PULSE 87
[2024-05-15 11:13] LABS: Glucose,Whole Blood 201 mg/dL (70-110)
== END 2024-05-15 11:56 | disposition home or self-care (01) ==
LOC: ORWHC2ENDO 09:02
PROVIDERS: ATTEND Internal Medicine Gastroenterology
DX: K29.50 Unspecified chronic gastritis without bleeding (principal); K74.60 Unspecified cirrhosis of liver; I50.9 Heart failure, unspecified; I48.91 Unspecified atrial fibrillation; I73.9 Peripheral vascular disease, unspecified; I08.9 Rheumatic multiple valve disease, unspecified; J44.9 Chronic obstructive pulmonary disease, unspecified; G47.33 Obstructive sleep apnea (adult) (pediatric); M17.0 Bilateral primary osteoarthritis of knee; I42.8 Other cardiomyopathies; F41.9 Anxiety disorder, unspecified; E11.9 Type 2 diabetes mellitus without complications; Z79.4 Long term (current) use of insulin; Z79.899 Other long term (current) drug therapy; Z89.611 Acquired absence of right leg above knee; Z89.612 Acquired absence of left leg above knee
CPT/HCPCS: 88305; 43239; J2704

== ENCOUNTER 2024-05-26 23:09 | Observation (INO) | payer MEDICARE, BC ==
--- NOTE | 2024-05-26 23:54 | ED ---
General Adult HPI - General Chief complaint: Altered Mental Status Stated complaint: Lethargy Time Seen by Provider: 05/26/24 23:31 Source: patient, EMS Mode of arrival: EMS Limitations: no limitations - History of Present Illness Initial comments: Patient is a pleasant 73-year-old gentleman from [facility] with a past medical history of right AKA, liver cirrhosis, type 2 diabetes, hypertension, CKD, CHF, atrial fibrillation, peripheral vascular disease, COPD presenting today for lethargy and diaphoresis. History is limited as patient currently denies any complaints and states that he is not completely sure why he is here though he states just prior to arrival he did feel short of breath, sweaty had an episode of nausea and nonbloody nonbilious emesis. He had a bowel movement and route to the ED and afterwards states his symptoms resolved. He did state earlier that he had abdominal pain but currently denies any abdominal pain or chest pain or other complaints. Denies any new numbness or focal weakness. No melena or hematochezia, no cough. He does wear 2 L oxygen nasal cannula at baseline due to history of COPD. Patient afebrile on arrival he is anticoagulated on Eliquis. He is currently AO x 3. - Related Data Home Medications Medication Instructions Recorded Confirmed Isosorbide Mononitrate ER [Imdur] 30 mg PO DAILY 04/11/14 05/15/24 Tamsulosin HCl [Flomax] 0.4 mg PO HS 04/11/14 05/15/24 allopurinoL [Zyloprim] 300 mg PO HS 03/03/16 05/15/24 Digoxin [Lanoxin] 125 mcg PO DAILY@0600 06/09/18 05/15/24 Magnesium Oxide 400 mg PO HS 12/29/20 05/15/24 Ferrous Sulfate [Iron (65 MG 325 mg PO BID@0800,2100 03/20/21 05/15/24 Elemental)] Na Phos,M-B/Na Phos,Di-Ba [Fleet 133 ml RECTAL DAILY PRN 03/20/21 05/15/24 Adult] bisacodyL [Dulcolax] 10 mg RECTAL DAILY PRN 03/20/21 05/15/24 Magnesium Hydroxide [Milk of 7,200 mg PO Q2D PRN 08/16/21 05/15/24 Magnesia Concentrate] Multivitamins, Thera [Multivitamin 1 tab PO DAILY@0800 11/13/22 05/15/24 (formulary)] Ondansetron [Zofran] 4 mg PO Q8HR PRN 11/13/22 05/15/24 Spironolactone [Aldactone] 25 mg PO BID@0800,1700 11/13/22 05/15/24 Apixaban [Eliquis] 2.5 mg PO BID@0800,1700 10/25/23 05/14/24 Furosemide [Lasix] 40 mg PO DAILY@0800 10/25/23 05/15/24 Ipratropium-Albuterol Nebulize 3 ml INHALATION RT-QID PRN 10/25/23 05/15/24 [Duoneb 0.5 mg-3 mg/3 ml Soln] Gabapentin [Neurontin] 100 mg PO Q8HR@0600,1400,2200 01/23/24 05/15/24 Metoprolol Tartrate [Lopressor] 50 mg PO BID@0800,1700 01/23/24 05/15/24 Insulin Glargine [Lantus Vial] 10 units SQ HS 05/14/24 05/15/24 ALPRAZolam [Xanax] 0.25 mg PO BID PRN 05/15/24 05/15/24 HYDROcodone/APAP 10-325MG [[place] 1 tab PO Q6HR PRN 05/15/24 05/15/24 10-325] Loperamide HCl [Imodium A-D] 2 tab PO RT-Q1H PRN 05/15/24 05/15/24 Previous Rx's Medication Instructions Recorded Famotidine [Pepcid] 20 mg PO DAILY tab 01/30/24 INSULIN ASPART (NovoLOG) [NovoLOG 0 unit SQ ACHS each 01/30/24 (formulary)] INSULIN ASPART (NovoLOG) [NovoLOG 10 unit SQ AC-TID each 01/30/24 (formulary)] lisinopriL [Zestril] 10 mg PO DAILY tab 01/30/24 Allergies Allergy/AdvReac Type Severity Reaction Status Date / Time No Known Allergies Allergy Verified 05/26/24 23:21 Review of Systems ROS Statement: Those systems with pertinent positive or pertinent negative responses have been documented in the HPI. ROS Other: All systems not noted in ROS Statement are negative. Past Medical History Past Medical History: Atrial Fibrillation, Heart Failure, COPD, Diabetes Mellitus, Hypertension, Osteoarthritis (OA), Pneumonia, Prostate Disorder, Renal Disease, Sleep Apnea/CPAP/BIPAP, Vascular Disorder Additional Past Medical History / Comment(s): Nonischemic cardiomyopathy, cardiac valve disease, bronchitis, JIMMIE with Cpap and O2 at 2L at hs, past decreased renal function, arthritis bilateral hands/knees, gout bilateral feet, carpal tunnel syndrome bilaterally, bilateral hand tremors, non hemorrahgic anemia. Fatty liver disease. Bilat above the knee amputation. Chronic resp. failure. History of Any Multi-Drug Resistant Organisms: MRSA Date of last positivie culture/infection: 12/23/21 MDRO Source:: Right Leg Past Surgical History: Heart Catheterization Additional Past Surgical History / Comment(s): Split thickness skin graft to L leg, bronchoscopy, cyst and partial jaw removed/has screws, oral surgery age 8- too many teeth. cataracts bilaterallly, Below Knee Amputation. Past Anesthesia/Blood Transfusion Reactions: Previous Problems w/ Anesthesia Additional Past Anesthesia/Blood Transfusion Reaction / Comment(s): STATED DURING BRONCH STOPPED BREATHING, (brochoscopy done at [facility]-record on chart) Past Psychological History: Anxiety Smoking Status: Former smoker Past Alcohol Use History: None Reported Past Drug Use History: None Reported - Past Family History Father Family Medical History: Dementia, Eye Disorder Additional Family Medical History / Comment(s): MACULAR DEGENERATION Mother Family Medical History: Diabetes Mellitus, Eye Disorder, Vascular Disorder Additional Family Medical History / Comment(s): ANEURYSMS, CATARACTS. . Khadra GILLESPIE @ [facility] not aware family hx. pt's daughter had no imput. General Exam - General Exam Comments Initial Comments: PE: CONSTITUTIONAL: No apparent distress, chronically ill-appearing, nontoxic SKIN: Warm, dry, no jaundice, hives or petechiae EYES: Pupils are equally round, extraocular movements intact without nystagmus, clear conjunctiva, non-icteric sclera HENT: Normocephalic, atraumatic, moist mucus membranes, oropharynx clear without exudates NECK: , Full range of motion, normal appearance PULMONARY: Decreased breath sounds in the left lower lung carmen, limited by body habitus and ability to sit up, lungs clear to auscultation in the right lung field, no wheezes rhonchi or rales, normal excursion accessory muscle use or stridor CARDIOVASCULAR: Irregular the irregular rhythm, no tachycardia, normal S1 and S2. No appreciated murmurs, rubs or gallops. Strong radial pulses with intact distal perfusion. No lower extremity edema GASTROINTESTINAL: Soft, active bowel sounds throughout, right lower quadrant tenderness to palpation without rebound or guarding, non-distended, no palpable masses, No hepatosplenomegaly GENITOURINARY: MUSCULOSKELETAL: Extremities have no gross deformity, no edema, redness, or swelling. No calf swelling. Right AKA NEUROLOGIC:_a/o x 3, GCS 15, normal mentation and speech. Moves all extremities x 4 without motor or sensory deficit PSYCHIATRIC:_normal mood and affect, thought process is clear and linear Limitations: no limitations Course Vital Signs 05/26/24 05/26/24 05/27/24 23:18 23:35 01:15 Temperature 98.0 F Pulse Rate 71 80 86 Respiratory 18 18 18 Rate Blood Pressure 129/83 141/86 148/88 O2 Sat by Pulse 98 97 98 Oximetry 05/27/24 05/27/24 05/27/24 02:00 03:00 04:35 Temperature Pulse Rate 91 90 81 Respiratory 18 18 16 Rate Blood Pressure 123/96 120/65 125/80 O2 Sat by Pulse 98 98 99 Oximetry 05/27/24 05/27/24 06:00 08:08 Temperature 97.5 F L Pulse Rate 88 93 Respiratory 16 20 Rate Blood Pressure 117/71 120/74 O2 Sat by Pulse 99 98 Oximetry EKG Findings - EKG Comments: EKG Findings:: Atrial fibrillation, rate 88 bpm,. QRS duration 169 ms, QT/QTc 3 7/432 ms, left axis deviation, right bundle branch block present, no ST elevations or depressions, EKG performed on 01/23/2024 from prior, no new ST elevations or depressions when compared to prior Medical Decision Making - Medical Decision Making Was pt. sent in by a medical professional or institution (, PA, [employer], urgent care, hospital, or custodial...) When possible be specific @Patient was sent in from [facility] Did you speak to anyone other than the patient for history (EMS, parent, family, police, friend...)? What history was obtained from this source @ -No Did you review nursing and triage notes (agree or disagree)? Why? @ -I reviewed and agree with nursing and triage notes Were old charts reviewed (outside hosp., previous admission, EMS record, old EKG, old radiological studies, urgent care reports/EKG's, custodial records)? Report findings @Medical records reviewed, patient did recently have what appears to be an upper endoscopy performed on 05/15/2024 Differential Diagnosis (chest pain, altered mental status, abdominal pain women, abdominal pain men, vaginal bleeding, weakness, fever, dyspnea, syncope, headache, dizziness, GI bleed, back pain, seizure, CVA, palpatations, mental health, musculoskeletal)? @Differential diagnosis range broad over top considerations include ACS, CHF, infectious process such as pneumonia, appendicitis, diverticulitis this is not an all-inclusive list EKG interpreted by me (3pts min.). @ -As above X-rays interpreted by me (1pt min.). @Left lower lobe consolidation with cardiomegaly CT interpreted by me (1pt min.). @ -Left lower lobe consolidation, no bowel wall thickening, no evidence of appendicitis, free air to indicate perforation, no obstruction U/S interpreted by me (1pt. min.). @ -None done What testing was considered but not performed or refused? (CT, X-rays, U/S, labs)? Why? @ -None What meds were considered but not given or refused? Why? @ -None Did you discuss the management of the patient with other professionals (professionals i.e. DrEloisa, PA, [employer], lab, RT, psych nurse, social services director, animal physiologist, teacher, patrol community service officer, rn case management)? Give summary @ -No Was smoking cessation discussed for >3mins.? @ -No Was critical care preformed (if so, how long)? @ -No Were there social determinants of health that impacted care today? How? (Homelessness, low income, unemployed, alcoholism, drug addiction, transportation, low edu. Level, literacy, decrease access to med. care, [facility], rehab)? @ -No Was there de-escalation of care discussed even if they declined (Discuss DNR or withdrawal of care, Hospice)? @ -No What co-morbidities impacted this encounter? (DM, HTN, Smoking, COPD, CAD, Cancer, CVA, ARF, Chemo, Hep., AIDS, mental health diagnosis, sleep apnea, morbid obesity)? @ -Atrial fibrillation, COPD, CHF, diabetes Was patient admitted / discharged? Hospital course, mention meds given and route, prescriptions, significant lab abnormalities, going to OR and other pertinent info. @Admission- Pleasant 73-year-old gentleman presenting today for reports of lethargy and diaphoresis at his assisted living facility, [facility]. En route to the ED apparently patient had a loose bowel movement and had resolution of symptoms. On my assessment patient has no complaints did state that he felt sweaty and nauseous prior to arrival did have abdominal pain that has since resolved. Currently feels well. No chest pain or difficulty in breathing. Currently on home 2 L oxygen nasal cannula breathing comfortably. Exam is limited by body habitus does decreased breath sounds in left lower lung field and right lower quadrant tenderness. He is not lethargic and appears to be at baseline. Plan for chest x-ray CT abdomen pelvis with contrast to assess for signs of appendicitis or acute other acute surgical process, EKG, troponin, comprehensive labs. Imaging significant for what appears to be left lower lobe pneumonia, due to elevated CURB 65 score, plan for admission for IV antibiotics. Zosyn ordered given patient's recent upper endoscopy on 05/15/2024, patient can potentially be aspirated. I reviewed patient's labs, significant for no leukocytosis or elevated neutrophils, hemoglobin 13.5, BUN 48, creatinine 0.98, GFR 78, glucose 243, calcium 8.3, CRP minimally elevated at 4.9, troponin 0.019 urinalysis shows trace protein and glucose but no signs of infection. I did go to update the patient however he was sleeping comfortably on my reassessment. Patient discussed with YOUNG Brown kindly accepts patient for admission. Patient admitted in stable condition. Undiagnosed new problem with uncertain prognosis? @ -No Drug Therapy requiring intensive monitoring for toxicity (Heparin, Nitro, Insulin, Cardizem)? @ -No Were any procedures done? @ -No Diagnosis/symptom? @ Left lower lobe pneumonia Acute, or Chronic, or Acute on Chronic? @ acute Uncomplicated (without systemic symptoms) or Complicated (systemic symptoms)? @ -complicated Side effects of treatment? @ -No Exacerbation, Progression, or Severe Exacerbation? @ -No Poses a threat to life or bodily function? How? (Chest pain, [place], [place], pneumonia, PE, COPD, DKA, ARF, appy, cholecystitis, CVA, Diverticulitis, Homicidal, Suicidal, threat to staff... and all critical care pts) @ Yes potentially, if left untreated could progress to sepsis, septic shock and - Lab Data Result diagrams: 05/27/24 00:05 05/27/24 00:05 Lab Results 05/27/24 05/27/24 05/27/24 Range/Units 00:05 00:05 00:05 WBC 6.0 (3.8-10.6) k/uL RBC 4.14 L (4.30-5.90) m/uL Hgb 13.5 (13.0-17.5) gm/dL Hct 42.6 (39.0-53.0) % MCV 102.9 H (80.0-100.0) fL MCH 32.5 (25.0-35.0) pg MCHC 31.6 (31.0-37.0) g/dL RDW 15.0 (11.5-15.5) % Plt Count 122 L (150-450) k/uL MPV 7.9 Neutrophils % 73 % Lymphocytes % 17 % Monocytes % 5 % Eosinophils % 3 % Basophils % 0 % Neutrophils # 4.4 (1.3-7.7) k/uL Lymphocytes # 1.1 (1.0-4.8) k/uL Monocytes # 0.3 (0-1.0) k/uL Eosinophils # 0.2 (0-0.7) k/uL Basophils # 0.0 (0-0.2) k/uL Hypochromasia Moderate Macrocytosis Slight PT 11.9 (10.0-12.5) sec INR 1.1 (<1.2) APTT 22.8 (22.0-30.0) sec Sodium 137 (137-145) mmol/L Potassium 4.7 (3.5-5.1) mmol/L Chloride 106 (98-107) mmol/L Carbon Dioxide 27 (22-30) mmol/L Anion Gap 4 mmol/L BUN 48 H (9-20) mg/dL Creatinine 0.98 (0.66-1.25) mg/dL Est GFR (CKD-EPI)AfAm >90 (>60 ml/min/1.73 sqM) Est GFR (CKD-EPI)NonAf 78 (>60 ml/min/1.73 sqM) Glucose 243 H (74-99) mg/dL Calcium 8.3 L (8.4-10.2) mg/dL Total Bilirubin 1.0 (0.2-1.3) mg/dL AST 29 (17-59) U/L ALT 28 (4-49) U/L Alkaline Phosphatase 107 (38-126) U/L Troponin I (0.000-0.034) ng/mL C-Reactive Protein 4.9 H (<1.0) mg/dL NT-Pro-B Natriuret Pep 4790 pg/mL Total Protein 6.3 (6.3-8.2) g/dL Albumin 3.3 L (3.5-5.0) g/dL Lipase 59 (23-300) U/L Urine Color Urine Appearance (Clear) Urine pH (5.0-8.0) Ur Specific [place] (1.001-1.035) Urine Protein (Negative) Urine Glucose (UA) (Negative) Urine Ketones (Negative) Urine Blood (Negative) Urine Nitrite (Negative) Urine Bilirubin (Negative) Urine Urobilinogen (<2.0) mg/dL Ur Leukocyte Esterase (Negative) 05/27/24 05/27/24 Range/Units 00:05 01:40 WBC (3.8-10.6) k/uL RBC (4.30-5.90) m/uL Hgb (13.0-17.5) gm/dL Hct (39.0-53.0) % MCV (80.0-100.0) fL MCH (25.0-35.0) pg MCHC (31.0-37.0) g/dL RDW (11.5-15.5) % Plt Count (150-450) k/uL MPV Neutrophils % % Lymphocytes % % Monocytes % % Eosinophils % % Basophils % % Neutrophils # (1.3-7.7) k/uL Lymphocytes # (1.0-4.8) k/uL Monocytes # (0-1.0) k/uL Eosinophils # (0-0.7) k/uL Basophils # (0-0.2) k/uL Hypochromasia Macrocytosis PT (10.0-12.5) sec INR (<1.2) APTT (22.0-30.0) sec Sodium (137-145) mmol/L Potassium (3.5-5.1) mmol/L Chloride (98-107) mmol/L Carbon Dioxide (22-30) mmol/L Anion Gap mmol/L BUN (9-20) mg/dL Creatinine (0.66-1.25) mg/dL Est GFR (CKD-EPI)AfAm (>60 ml/min/1.73 sqM) Est GFR (CKD-EPI)NonAf (>60 ml/min/1.73 sqM) Glucose (74-99) mg/dL Calcium (8.4-10.2) mg/dL Total Bilirubin (0.2-1.3) mg/dL AST (17-59) U/L ALT (4-49) U/L Alkaline Phosphatase (38-126) U/L Troponin I 0.019 (0.000-0.034) ng/mL C-Reactive Protein (<1.0) mg/dL NT-Pro-B Natriuret Pep pg/mL Total Protein (6.3-8.2) g/dL Albumin (3.5-5.0) g/dL Lipase (23-300) U/L Urine Color Light Yellow Urine Appearance Clear (Clear) Urine pH 5.5 (5.0-8.0) Ur Specific [place] 1.020 (1.001-1.035) Urine Protein Trace H (Negative) Urine Glucose (UA) Trace H (Negative) Urine Ketones Negative (Negative) Urine Blood Negative (Negative) Urine Nitrite Negative (Negative) Urine Bilirubin Negative (Negative) Urine Urobilinogen <2.0 (<2.0) mg/dL Ur Leukocyte Esterase Negative (Negative) Disposition Clinical Impression: Community acquired bacterial pneumonia Disposition: ADMITTED IP TO THIS HOSP Condition: Good
[2024-05-27] MEDS: SODIUM CHLORIDE 0.9% 500 ML 500 ML IV ONE (00:07)
[2024-05-27 00:30] LABS: Basophils % (A) 0 %; Eosinophils # (A) 0.2 k/uL (0-0.7); Eosinophils % (A) 3 %; HCT 42.6 % (39.0-53.0); HGB 13.5 gm/dL (13.0-17.5); Hypochromasia Moderate; Lymphocytes # (A) 1.1 k/uL (1.0-4.8); Lymphocytes % (A) 17 %; MCH 32.5 pg (25.0-35.0); MCHC 31.6 g/dL (31.0-37.0); MCV 102.9 fL (80.0-100.0); Macrocytosis Slight; Mean Platelet Volume 7.9; Monocytes # (A) 0.3 k/uL (0-1.0); Monocytes % (A) 5 %; Neutrophils # (A) 4.4 k/uL (1.3-7.7); Neutrophils % (A) 73 %; Platelet Count 122 k/uL (150-450); RBC 4.14 m/uL (4.30-5.90)
[2024-05-27 00:48] LABS: INR 1.1 (<1.2); Partial Thromboplastin Time 22.8 sec (22.0-30.0); Prothrombin Time 11.9 sec (10.0-12.5)
--- NOTE | 2024-05-27 00:55 | XR ---
EXAM: XR Chest, 2 Views CLINICAL HISTORY: ITS.REASON XR Reason: Diaophoresis, PADMINI TECHNIQUE: Frontal and lateral views of the chest. COMPARISON: No relevant prior studies available. FINDINGS: Lungs: See below. Pleural space: Small LEFT pleural effusion. Retrocardiac opacity, correlate for pneumonia. No pneumothorax. Heart: Cardiomegaly. Mediastinum: Unremarkable. Normal mediastinal contour. Bones/joints: Unremarkable. No acute fracture. IMPRESSION: Small LEFT pleural effusion. Retrocardiac opacity, correlate for pneumonia.
[2024-05-27 00:59] LABS: ALT 28 U/L (4-49); AST 29 U/L (17-59); African American GFR (CKD) >90 (>60 ml/min/1.73 sqM); Albumin 3.3 g/dL (3.5-5.0); Alkaline Phosphatase 107 U/L (38-126); Anion Gap 4 mmol/L; Blood Urea Nitrogen 48 mg/dL (9-20); C Reactive Protein 4.9 mg/dL (<1.0); Calcium 8.3 mg/dL (8.4-10.2); Carbon Dioxide 27 mmol/L (22-30); Chloride 106 mmol/L (98-107); Glucose 243 mg/dL (74-99); Lipase 59 U/L (23-300); Non-African American GFR(CKD) 78 (>60 ml/min/1.73 sqM); Potassium 4.7 mmol/L (3.5-5.1); Sodium 137 mmol/L (137-145); Total Protein 6.3 g/dL (6.3-8.2)
[2024-05-27 01:04] LABS: NT-Pro-B-Type Natriuretic Pept 4790 pg/mL
--- NOTE | 2024-05-27 01:51 | CT ---
EXAM: CT Abdomen and Pelvis With Intravenous Contrast CLINICAL HISTORY: ITS.REASON CT Reason: RLQ pain, diarrhea, vomiting TECHNIQUE: Axial computed tomography images of the abdomen and pelvis with intravenous contrast. CTDI is 38.5 mGy and DLP is 2360.4 mGy-cm. This CT exam was performed using one or more of the following dose reduction techniques: automated exposure control, adjustment of the mA and/or kV according to patient size, and/or use of iterative reconstruction technique. COMPARISON: No relevant prior studies available. FINDINGS: Lung bases: Airspace consolidation at the LEFT lung base, concerning for pneumonia. Small LEFT pleural effusion. ABDOMEN: Liver: Hepatic steatosis. Gallbladder and bile ducts: Cholecystectomy. No ductal dilation. Pancreas: Unremarkable. No mass. No ductal dilation. Spleen: Unremarkable. No splenomegaly. Adrenals: Unremarkable. No mass. Kidneys and ureters: Unremarkable. No solid mass. No hydronephrosis. Stomach and bowel: Diverticulosis, without acute diverticulitis. No small bowel obstruction. No free intraperitoneal air. PELVIS: Appendix: No findings to suggest acute appendicitis. Bladder: Unremarkable. No mass. Reproductive: Unremarkable as visualized. ABDOMEN and PELVIS: Intraperitoneal space: Unremarkable. No free air. No significant fluid collection. Bones/joints: Degenerative changes of the spine. No acute fracture. No dislocation. Soft tissues: Unremarkable. Vasculature: Atherosclerotic changes of the aorta. No abdominal aortic aneurysm. Lymph nodes: Unremarkable. No enlarged lymph nodes. IMPRESSION: 1. Airspace consolidation at the LEFT lung base, concerning for pneumonia. Small LEFT pleural effusion. 2. Diverticulosis, without acute diverticulitis. No small bowel obstruction. No free intraperitoneal air.
[2024-05-27 01:59] LABS: Appearance,Urine Clear (Clear); Bilirubin,Urine Negative (Negative); Blood,Urine Negative (Negative); Color,Urine Light Yellow; Glucose,Urine (UA) Trace (Negative); Ketones,Urine Negative (Negative); Leukocyte Esterase,Urine Negative (Negative); Nitrite,Urine Negative (Negative); PH, Urine 5.5 (5.0-8.0); Protein,Urine Trace (Negative); Urobilinogen,Urine <2.0 mg/dL (<2.0)
[2024-05-27] MEDS ORDERED: PNEUMONIA PROTOCOL UTILIZED 1 EACH MISC PO PRN (02:37)
[2024-05-27] MEDS ORDERED: ACETAMINOPHEN TAB 325 MG TAB PO PRN (02:37)
[2024-05-27] MEDS ORDERED: IPRATROPIUM-ALBUTEROL 3 ML NEB INHALATION PRN ×2 (02:39→11:11)
[2024-05-27] MEDS ORDERED: ALPRAZolam 0.25 MG TAB PO PRN (02:39)
[2024-05-27] MEDS: AZITHROMYCIN 500 MG in SODIUM CHLORIDE 0.9% 250 ML IVPB STA (02:59)
[2024-05-27] MEDS: PIPERACILLIN-TAZOBACTAM 3.375 GM in SODIUM CHLORIDE 0.9% 100 ML IVPB SCH (03:13)
[2024-05-27] MEDS: GABAPENTIN 100 MG CAP PO SCH (06:27)
[2024-05-27] MEDS: APIXABAN 2.5 MG TABLET PO SCH (08:13)
[2024-05-27] MEDS: FUROSEMIDE 40 MG TAB PO SCH (08:13)
[2024-05-27] MEDS: ISOSORBIDE MONONITRATE ER 30 MG TAB.ER.24H PO SCH (08:13)
[2024-05-27] MEDS: METOPROLOL TARTRATE 50 MG TAB PO SCH (08:14)
[2024-05-27] MEDS ORDERED: DOCUSATE 100 MG CAP PO PRN (11:12)
[2024-05-27] MEDS ORDERED: HYDROcodone/APAP 10-325MG 1 EACH TAB PO PRN (11:12)
[2024-05-27] MEDS ORDERED: bisacodyL 10 MG SUPP RECTAL PRN (11:12)
--- NOTE | 2024-05-27 11:21 | P.HPIM ---
History of Present Illness 73-year-old male presenting from [facility] because of his nausea vomiting patient had a big bowel movement after which his nausea vomiting resolved. Patient had abdominal CT which did not show any significant abnormality. Patient was complaining of some shortness of breath. Patient had a CT of the abdomen which showed atelectasis but there is no air bronchogram or suspicion for pneumonia is noted to be on the CAT scan chest x-ray showed the same thing patient although has some wheezing does have history of COPD uses 2 L of oxygen at baseline patient does have sleep apnea uses CPAP machine does have history of congestive heart failure with EF of around 40 to 45%. Patient does not have any fever chills does not have any leukocytosis patient is not septic at this time. Patient has history of vascular disease has bilateral pneumonia amputation apparently has history of cirrhosis as well.. REVIEW OF SYSTEMS: All other systems are negative except those mentioned in the HPI PHYSICAL EXAMINATION: GENERAL: The patient is alert and oriented x3, not in any acute distress. Well developed, well nourished. Obese HEENT: Pupils are round and equally reacting to light. EOMI. No scleral icterus. No conjunctival pallor. Normocephalic, atraumatic. No pharyngeal erythema. No thyromegaly. CARDIOVASCULAR: S1 and S2 present. No murmurs, rubs, or gallops. PULMONARY: Expiratory wheezing on exam ABDOMEN: Soft, nontender, nondistended, normoactive bowel sounds. No palpable organomegaly. MUSCULOSKELETAL: No joint swelling or deformity. EXTREMITIES: No cyanosis, clubbing, or pedal edema. NEUROLOGICAL: Gross neurological examination did not reveal any focal deficits. SKIN: No rashes. Assessment and plan -Nausea vomiting resolved probably secondary to constipation improved with bowel movements. -COPD with acute exacerbation patient has chronic hypercapnic respiratory failure patient will be started on inhaled steroids and inhalational steroids will not be started on any systemic steroids at this time -Diabetes mellitus patient was resumed on home regimen along with sliding scale insulin -Atelectasis of the left lower lung carmen I do not believe patient has pneumonia procalcitonin will be obtained no need for antibiotics at this time. Rocephin will be discontinued -Hypertension -History of liver cirrhosis -Peripheral artery disease for which patient has an amputation of the bilateral lower extremities -Paroxysmal atrial fibrillation: Patient is on Eliquis which will be continued -Congestive heart failure chronic systolic dysfunction EF of around 40 to 45% without any acute exacerbation. Patient will be resumed on home regimen of Aldactone and Lasix DVT prophylaxis: On Eliquis Past Medical History Past Medical History: Atrial Fibrillation, Heart Failure, COPD, Diabetes Mellitus, Hypertension, Osteoarthritis (OA), Pneumonia, Prostate Disorder, Renal Disease, Sleep Apnea/CPAP/BIPAP, Vascular Disorder Additional Past Medical History / Comment(s): Nonischemic cardiomyopathy, cardiac valve disease, bronchitis, JIMMIE with Cpap and O2 at 2L at hs, past decreased renal function, arthritis bilateral hands/knees, gout bilateral feet, carpal tunnel syndrome bilaterally, bilateral hand tremors, non hemorrahgic anemia. Fatty liver disease. Bilat above the knee amputation. Chronic resp. failure. History of Any Multi-Drug Resistant Organisms: MRSA Date of last positivie culture/infection: 12/23/21 MDRO Source:: Right Leg Past Surgical History: Heart Catheterization Additional Past Surgical History / Comment(s): Split thickness skin graft to L leg, bronchoscopy, cyst and partial jaw removed/has screws, oral surgery age 8- too many teeth. cataracts bilaterallly, Below Knee Amputation. Past Anesthesia/Blood Transfusion Reactions: Previous Problems w/ Anesthesia Additional Past Anesthesia/Blood Transfusion Reaction / Comment(s): STATED DURING BRONCH STOPPED BREATHING, (brochoscopy done at [facility]-record on chart) Past Psychological History: Anxiety Smoking Status: Former smoker Past Alcohol Use History: None Reported Past Drug Use History: None Reported - Past Family History Father Family Medical History: Dementia, Eye Disorder Additional Family Medical History / Comment(s): MACULAR DEGENERATION Mother Family Medical History: Diabetes Mellitus, Eye Disorder, Vascular Disorder Additional Family Medical History / Comment(s): ANEURYSMS, CATARACTS. . Khadra GILLESPIE @ [facility] not aware family hx. pt's daughter had no imput. Medications and Allergies Home Medications Medication Instructions Recorded Confirmed Type Isosorbide Mononitrate ER [Imdur] 30 mg PO DAILY@0800 04/11/14 05/27/24 History Tamsulosin HCl [Flomax] 0.4 mg PO HS@2100 04/11/14 05/27/24 History allopurinoL [Zyloprim] 300 mg PO HS@2100 03/03/16 05/27/24 History Digoxin [Lanoxin] 125 mcg PO DAILY@0600 06/09/18 05/27/24 History Magnesium Oxide 400 mg PO HS@209912/29/20 05/27/24 History Ferrous Sulfate [Iron (65 MG 325 mg PO DAILY@0800 03/20/21 05/27/24 History Elemental)] Na Phos,M-B/Na Phos,Di-Ba [Fleet 133 ml RECTAL DAILY PRN 03/20/21 05/27/24 History Adult] bisacodyL [Dulcolax] 10 mg RECTAL DAILY PRN 03/20/21 05/27/24 History Magnesium Hydroxide [Milk of 7,200 mg PO DAILY PRN 08/16/21 05/27/24 History Magnesia Concentrate] Multivitamins, Thera [Multivitamin 1 tab PO DAILY@0800 11/13/22 05/27/24 History (formulary)] Ondansetron [Zofran] 4 mg PO Q8HR PRN 11/13/22 05/27/24 History Spironolactone [Aldactone] 25 mg PO BID@0800,1700 11/13/22 05/27/24 History Apixaban [Eliquis] 2.5 mg PO BID@0800,2000 10/25/23 05/27/24 History Furosemide [Lasix] 40 mg PO DAILY@0800 10/25/23 05/27/24 History Ipratropium-Albuterol Nebulize 3 ml INHALATION RT-QID PRN 10/25/23 05/27/24 History [Duoneb 0.5 mg-3 mg/3 ml Soln] Gabapentin [Neurontin] 100 mg PO Q8HR@0600,1400,2200 01/23/24 05/27/24 History Metoprolol Tartrate [Lopressor] 50 mg PO BID@0800,1700 01/23/24 05/27/24 History Insulin Glargine [Lantus Vial] 10 units SQ HS@209905/14/24 05/27/24 History ALPRAZolam [Xanax] 0.25 mg PO BID PRN 05/15/24 05/27/24 History HYDROcodone/APAP 10-325MG [[place] 1 tab PO Q6HR PRN 05/15/24 05/27/24 History 10-325] Loperamide HCl [Imodium A-D] 2 tab PO RT-Q1H PRN 05/15/24 05/27/24 History Docusate [Colace] 100 mg PO Q12H PRN 05/27/24 05/27/24 History Famotidine [Pepcid] 20 mg PO DAILY@0800 05/27/24 05/27/24 History INSULIN ASPART (NovoLOG) [NovoLOG 10 unit SQ AC-TID@05/27/24 05/27/24 History (formulary)] INSULIN ASPART (NovoLOG) [NovoLOG See Protocol SQ AC-TID@,05/27/24 05/27/24 History (formulary)] lisinopriL [Zestril] 10 mg PO DAILY@0800 05/27/24 05/27/24 History Allergies Allergy/AdvReac Type Severity Reaction Status Date / Time No Known Allergies Allergy Verified 05/27/24 08:53 Physical Exam Vitals: Vital Signs Temp Pulse Pulse Resp BP BP Pulse Ox 05/27/24 10:57 97.7 F 69 17 94/55 98 05/27/24 10:29 81 20 117/69 99 05/27/24 08:08 97.5 F L 93 20 120/74 98 05/27/24 06:00 88 16 117/71 99 05/27/24 04:35 81 16 125/80 99 05/27/24 03:00 90 18 120/65 98 05/27/24 02:00 91 18 123/96 98 05/27/24 01:15 86 18 148/88 98 05/26/24 23:35 80 18 141/86 97 05/26/24 23:18 98.0 F 71 18 129/83 98 Intake and Output 05/26/24 05/27/24 05/27/24 22:59 06:59 14:59 Output Total 500 Balance -500 Output: Urine 500 Straight 500 Other: Weight 117.027 kg Results CBC & Chem 7: 05/27/24 00:05 05/27/24 00:05 Labs: Abnormal Lab Results - Last 24 Hours (Table) 05/27/24 05/27/24 05/27/24 Range/Units 00:05 00:05 01:40 RBC 4.14 L (4.30-5.90) m/uL MCV 102.9 H (80.0-100.0) fL Plt Count 122 L (150-450) k/uL BUN 48 H (9-20) mg/dL Glucose 243 H (74-99) mg/dL Calcium 8.3 L (8.4-10.2) mg/dL C-Reactive Protein 4.9 H (<1.0) mg/dL Albumin 3.3 L (3.5-5.0) g/dL Urine Protein Trace H (Negative) Urine Glucose (UA) Trace H (Negative)
[2024-05-27 11:24] LABS: Glucose,Whole Blood 247 mg/dL (70-110)
[2024-05-27] MEDS: IPRATROPIUM-ALBUTEROL 3 ML NEB INHALATION SCH (12:05)
[2024-05-27] MEDS: INSULIN ASPART (NovoLOG) 100 UNIT/ML VIAL SQ SCH ×2 (12:11→17:24)
[2024-05-27] MEDS ORDERED: INSULIN ASPART (NovoLOG) 100 UNIT/ML VIAL SQ SCH (12:30)
[2024-05-27 16:15] LABS: Glucose,Whole Blood 298 mg/dL (70-110)
[2024-05-27] MEDS: SPIRONOLACTONE 25 MG TAB PO SCH (16:45)
[2024-05-27] MEDS: allopurinoL 300 MG TAB PO SCH (20:22)
[2024-05-27] MEDS: TAMSULOSIN 0.4 MG CAP.ER.24H PO SCH (20:22)
[2024-05-27 20:31] LABS: Glucose,Whole Blood 193 mg/dL (70-110)
[2024-05-27] MEDS: INSULIN DETEMIR (LEVEMIR) 100 UNIT/ML SYR SQ SCH (20:40)
[2024-05-27] MEDS: BUDESONIDE 0.5 MG/2 ML NEBU INHALATION SCH (20:46)
[2024-05-28] MEDS: DIGOXIN 125 MCG TAB PO SCH (05:42)
[2024-05-28 06:08] LABS: Glucose,Whole Blood 250 mg/dL (70-110)
[2024-05-28 07:22] VITALS: RESP 18
[2024-05-28] MEDS: FAMOTIDINE 20 MG TAB PO SCH (07:23)
[2024-05-28] MEDS: lisinopriL 10 MG TAB PO SCH (07:23)
[2024-05-28 08:49] LABS: BUN/Creat Ratio 29.07 Ratio (12.00-20.00); Blood Urea Nitrogen 43.6 mg/dL (9.0-27.0); Calcium 8.5 mg/dL (8.7-10.3); Carbon Dioxide 27.8 mmol/L (21.6-31.8); Chloride 103 mmol/L (96-109); Glucose 225 mg/dL (70-110); Potassium 4.5 mmol/L (3.5-5.5); Sodium 141 mmol/L (135-145)
[2024-05-28 11:33] LABS: Glucose,Whole Blood 250 mg/dL (70-110)
--- NOTE | 2024-05-28 13:31 | P.DS ---
Providers Date of admission: 05/27/24 02:37 Attending physician: Winter Bunch Primary care physician: [facility] Course: Final Diagnosis -Nausea vomiting resolved probably secondary to constipation improved with bowel movements. -COPD with acute exacerbation patient has chronic hypercapnic respiratory failure patient will be started on inhaled steroids and inhalational steroids will not be started on any systemic steroids at this time -Diabetes mellitus patient was resumed on home regimen along with sliding scale insulin -Atelectasis of the left lower lung carmen I do not believe patient has pneumonia procalcitonin normal 0.09 no need for antibiotics at this time. -Hypertension -History of liver cirrhosis -Peripheral artery disease for which patient has an amputation of the bilateral lower extremities -Paroxysmal atrial fibrillation: Patient is on Eliquis which will be continued -Congestive heart failure chronic systolic dysfunction EF of around 40 to 45% without any acute exacerbation. Patient will be resumed on home regimen of Aldactone and Lasix -History of obstructive sleep apnea with CPAP use. Discharge Disposition Patient is stable for discharge to [facility]. Continue all same home medications. Hospital Course 73-year-old male presenting from [facility] because of his nausea vomiting patient had a big bowel movement after which his nausea vomiting resolved. Patient had abdominal CT which did not show any significant abnormality. Patient was complaining of some shortness of breath. Patient had a CT of the abdomen which showed atelectasis but there is no air bronchogram or suspicion for pneumonia is noted to be on the CAT scan chest x-ray showed the same thing patient although has some wheezing does have history of COPD uses 2 L of oxygen at baseline patient does have sleep apnea uses CPAP machine does have history of congestive heart failure with EF of around 40 to 45%. Patient does not have any fever chills does not have any leukocytosis patient is not septic at this time. Patient has history of vascular disease has bilateral leg amputations. He was monitored overnight. N complaints of shortness of breath or chest pain. He has maintained adequate oxygen saturations on 2L of oxygen which he wears chronically. He can return to [facility] today. Continue all same home medications. Please see medication reconciliation for a list of current medications. Thank you for allowing us to participate in the care of this patient. The impression and plan of care has been dictated by Stephanie Mi, Nurse Practitioner as directed. Dr. Edenilson MD I have performed a history and physical examination and medical decision making of this patient, discussed the same with the dictator, and agree with the dictators assessment and plan as written, documented as a scribe. Based on total visit time, I have performed more than 50% of this visit. Patient Condition at Discharge: Good Plan - Discharge Summary New Discharge Prescriptions: No Action Tamsulosin HCl [Flomax] 0.4 mg PO HS@2100 Isosorbide Mononitrate ER [Imdur] 30 mg PO DAILY@0800 allopurinoL [Zyloprim] 300 mg PO HS@2100 Digoxin [Lanoxin] 125 mcg PO DAILY@0600 Magnesium Oxide 400 mg PO HS@2100 Na Phos,M-B/Na Phos,Di-Ba [Fleet Adult] 133 ml RECTAL DAILY PRN PRN Reason: Constipation Magnesium Hydroxide [Milk of Magnesia Concentrate] 7,200 mg PO DAILY PRN PRN Reason: Constipation Spironolactone [Aldactone] 25 mg PO BID@0800,1700 Metoprolol Tartrate [Lopressor] 50 mg PO BID@0800,1700 Gabapentin [Neurontin] 100 mg PO Q8HR@0600,1400,2200 ALPRAZolam [Xanax] 0.25 mg PO BID PRN PRN Reason: Anxiety HYDROcodone/APAP 10-325MG [[place] 10-325] 1 tab PO Q6HR PRN PRN Reason: Pain Loperamide HCl [Imodium A-D] 2 tab PO RT-Q1H PRN PRN Reason: Diarrhea Docusate [Colace] 100 mg PO Q12H PRN PRN Reason: Constipation INSULIN ASPART (NovoLOG) [NovoLOG (formulary)] See Protocol SQ AC- TID@,1630 bisacodyL [Dulcolax] 10 mg RECTAL DAILY PRN PRN Reason: Constipation Ferrous Sulfate [Iron (65 MG Elemental)] 325 mg PO DAILY@0800 Ondansetron [Zofran] 4 mg PO Q8HR PRN PRN Reason: Nausea Multivitamins, Thera [Multivitamin (formulary)] 1 tab PO DAILY@0800 Furosemide [Lasix] 40 mg PO DAILY@0800 Apixaban [Eliquis] 2.5 mg PO BID@0800,2000 Ipratropium-Albuterol Nebulize [Duoneb 0.5 mg-3 mg/3 ml Soln] 3 ml INHALATION RT-QID PRN PRN Reason: Congestion Insulin Glargine [Lantus Vial] 10 units SQ HS@2099 Famotidine [Pepcid] 20 mg PO DAILY@08 INSULIN ASPART (NovoLOG) [NovoLOG (formulary)] 10 unit SQ AC-TID@,1630 lisinopriL [Zestril] 10 mg PO DAILY@0800 Discharge Medication List Isosorbide Mononitrate ER [Imdur] 30 mg PO DAILY@0804/11/14 [History] Tamsulosin HCl [Flomax] 0.4 mg PO HS@209904/11/14 [History] allopurinoL [Zyloprim] 300 mg PO HS@209903/03/16 [History] Digoxin [Lanoxin] 125 mcg PO DAILY@0606/09/18 [History] Magnesium Oxide 400 mg PO HS@209912/29/20 [History] Ferrous Sulfate [Iron (65 MG Elemental)] 325 mg PO DAILY@79903/20/21 [History] Na Phos,M-B/Na Phos,Di-Ba [Fleet Adult] 133 ml RECTAL DAILY PRN 03/20/21 [History] bisacodyL [Dulcolax] 10 mg RECTAL DAILY PRN 03/20/21 [History] Magnesium Hydroxide [Milk of Magnesia Concentrate] 7,200 mg PO DAILY PRN 08/16/21 [History] Multivitamins, Thera [Multivitamin (formulary)] 1 tab PO DAILY@79911/13/22 [History] Ondansetron [Zofran] 4 mg PO Q8HR PRN 11/13/22 [History] Spironolactone [Aldactone] 25 mg PO BID@0800,1700 11/13/22 [History] Apixaban [Eliquis] 2.5 mg PO BID@08,199910/25/23 [History] Furosemide [Lasix] 40 mg PO DAILY@79910/25/23 [History] Ipratropium-Albuterol Nebulize [Duoneb 0.5 mg-3 mg/3 ml Soln] 3 ml INHALATION RT-QID PRN 10/25/23 [History] Gabapentin [Neurontin] 100 mg PO Q8HR@0600,1400,2200 01/23/24 [History] Metoprolol Tartrate [Lopressor] 50 mg PO BID@0800,1700 01/23/24 [History] Insulin Glargine [Lantus Vial] 10 units SQ HS@2100 05/14/24 [History] ALPRAZolam [Xanax] 0.25 mg PO BID PRN 05/15/24 [History] HYDROcodone/APAP 10-325MG [[place] 10-325] 1 tab PO Q6HR PRN 05/15/24 [History] Loperamide HCl [Imodium A-D] 2 tab PO RT-Q1H PRN 05/15/24 [History] Docusate [Colace] 100 mg PO Q12H PRN 05/27/24 [History] Famotidine [Pepcid] 20 mg PO DAILY@0800 05/27/24 [History] INSULIN ASPART (NovoLOG) [NovoLOG (formulary)] 10 unit SQ AC-TID@05/27/24 [History] INSULIN ASPART (NovoLOG) [NovoLOG (formulary)] See Protocol SQ AC-TID@,,1630 05/27/24 [History] lisinopriL [Zestril] 10 mg PO DAILY@0800 05/27/24 [History] Follow up Appointment(s)/Referral(s): Sean Muro MD [Primary Care Provider] - 1-2 days Jean Carlos Dupree, [NON-STAFF] - As Needed
[2024-05-28 14:38] VITALS: BP 108/65; PULSE 101; TEMP 98.2
== END 2024-05-28 16:52 ==
LOC: EC 23:09 → 4SSUR 05-27 02:37
PROVIDERS: ADMIT Hospitalist; ATTEND Hospitalist
DX: J44.1 Chronic obstructive pulmonary disease with (acute) exacerbation (principal); J96.12 Chronic respiratory failure with hypercapnia; R11.2 Nausea with vomiting, unspecified; E11.51 Type 2 diabetes mellitus with diabetic peripheral angiopathy without gangrene; I13.0 Hypertensive heart and chronic kidney disease with heart failure and stage 1 through stage 4 chronic kidney disease, or unspecified chronic kidney disease; I50.22 Chronic systolic (congestive) heart failure; N18.9 Chronic kidney disease, unspecified; E11.22 Type 2 diabetes mellitus with diabetic chronic kidney disease; I48.0 Paroxysmal atrial fibrillation; I42.8 Other cardiomyopathies; G47.33 Obstructive sleep apnea (adult) (pediatric); F41.9 Anxiety disorder, unspecified; Z87.891 Personal history of nicotine dependence; Z79.01 Long term (current) use of anticoagulants; Z79.4 Long term (current) use of insulin; Z79.899 Other long term (current) drug therapy
CPT/HCPCS: 96361; 96365; 96366; 96367; 99285; 36415; 94640 ×4; 93005; 83880; 80053; 80048; 87449; 83690; 84484; 85025; 85610; 85730; 86140; 81003; 84145; 71046; 74177; G0378 ×2; J2543; J0696; Q9967

== ENCOUNTER 2024-09-30 05:52 | Inpatient (IN) | payer MEDICARE, BC ==
[2024-09-30] MEDS: IPRATROPIUM-ALBUTEROL 3 ML NEB INHALATION STA (06:07)
[2024-09-30] MEDS: ALBUTEROL NEBULIZED 2.5 MG/3 ML INHALATION STA (06:07)
[2024-09-30 06:19] LABS: Basophils # (A) 0.1 k/uL (0-0.2); Basophils % (A) 1 %; Eosinophils # (A) 0.1 k/uL (0-0.7); Eosinophils % (A) 3 %; HCT 44.1 % (39.0-53.0); HGB 13.6 gm/dL (13.0-17.5); Hypochromasia Slight; Lymphocytes # (A) 0.8 k/uL (1.0-4.8); Lymphocytes % (A) 15 %; MCH 32.7 pg (25.0-35.0); MCHC 30.8 g/dL (31.0-37.0); MCV 106.2 fL (80.0-100.0); Macrocytosis Moderate; Mean Platelet Volume 8.9; Monocytes # (A) 0.2 k/uL (0-1.0); Monocytes % (A) 4 %; Neutrophils # (A) 3.9 k/uL (1.3-7.7); Neutrophils % (A) 75 %; Platelet Count 105 k/uL (150-450); RBC 4.15 m/uL (4.30-5.90); RDW 15.3 % (11.5-15.5); WBC 5.2 k/uL (3.8-10.6)
[2024-09-30] MEDS: ACETAMINOPHEN TAB 500 MG TAB PO STA (06:23)
--- NOTE | 2024-09-30 06:25 | ED ---
SOB HPI - General Chief Complaint: Shortness of Breath Stated Complaint: Difficulty Breathing Time Seen by Provider: 09/30/24 05:58 Source: patient, EMS, RN notes reviewed Mode of arrival: EMS Limitations: physical limitation - History of Present Illness Initial Comments: 74-year-old male presents emergency department with chief complaint of shortness of breath. Patient was sent over via EMS from [facility] for increasing dyspnea, fever, cough. Patient states symptoms have been present for last couple days. Patient did have breathing treatments did improve some of his symptoms. Patient denies any chest pain he states he feels like he has lung tightness. Patient denies any nausea vomit diarrhea constipation has not had any antipyretics. - Related Data Home Medications Medication Instructions Recorded Confirmed Isosorbide Mononitrate ER [Imdur] 30 mg PO DAILY@0804/11/14 05/27/24 Tamsulosin HCl [Flomax] 0.4 mg PO HS@209904/11/14 05/27/24 allopurinoL [Zyloprim] 300 mg PO HS@209903/03/16 05/27/24 Digoxin [Lanoxin] 125 mcg PO DAILY@0606/09/18 05/27/24 Magnesium Oxide 400 mg PO HS@209912/29/20 05/27/24 Ferrous Sulfate [Iron (65 MG 325 mg PO DAILY@79903/20/21 05/27/24 Elemental)] Na Phos,M-B/Na Phos,Di-Ba [Fleet 133 ml RECTAL DAILY PRN 03/20/21 05/27/24 Adult] bisacodyL [Dulcolax] 10 mg RECTAL DAILY PRN 03/20/21 05/27/24 Magnesium Hydroxide [Milk of 7,200 mg PO DAILY PRN 08/16/21 05/27/24 Magnesia Concentrate] Multivitamins, Thera [Multivitamin 1 tab PO DAILY@0800 11/13/22 05/27/24 (formulary)] Ondansetron [Zofran] 4 mg PO Q8HR PRN 11/13/22 05/27/24 Spironolactone [Aldactone] 25 mg PO BID@0800,1700 11/13/22 05/27/24 Apixaban [Eliquis] 2.5 mg PO BID@0800,199910/25/23 05/27/24 Furosemide [Lasix] 40 mg PO DAILY@0800 10/25/23 05/27/24 Ipratropium-Albuterol Nebulize 3 ml INHALATION RT-QID PRN 10/25/23 05/27/24 [Duoneb 0.5 mg-3 mg/3 ml Soln] Gabapentin [Neurontin] 100 mg PO Q8HR@0600,1400,2200 01/23/24 05/27/24 Metoprolol Tartrate [Lopressor] 50 mg PO BID@0800,1700 01/23/24 05/27/24 Insulin Glargine (Lantus) [Lantus 10 units SQ HS@2100 05/14/24 05/27/24 Vial] Loperamide HCl [Imodium A-D] 2 tab PO RT-Q1H PRN 05/15/24 05/27/24 Docusate [Colace] 100 mg PO Q12H PRN 05/27/24 05/27/24 Famotidine [Pepcid] 20 mg PO DAILY@0800 05/27/24 05/27/24 INSULIN ASPART (NovoLOG) [NovoLOG 10 unit SQ AC-TID@07,11,1630 05/27/24 05/27/24 (formulary)] INSULIN ASPART (NovoLOG) [NovoLOG See Protocol SQ AC-TID@07,11,1630 05/27/24 05/27/24 (formulary)] lisinopriL [Zestril] 10 mg PO DAILY@0800 05/27/24 05/27/24 Previous Rx's Medication Instructions Recorded ALPRAZolam [Xanax] 0.25 mg PO BID PRN #4 tab 05/28/24 Budesonide [Pulmicort] 0.5 mg INHALATION RT-BID #0 ml 05/28/24 HYDROcodone/APAP 10-325MG [[place] 1 tab PO Q6HR PRN #4 tab 05/28/24 10-325] Allergies Allergy/AdvReac Type Severity Reaction Status Date / Time No Known Allergies Allergy Verified 09/30/24 06:01 Review of Systems ROS Statement: Those systems with pertinent positive or pertinent negative responses have been documented in the HPI. ROS Other: All systems not noted in ROS Statement are negative. Past Medical History Past Medical History: Atrial Fibrillation, Heart Failure, COPD, Diabetes Mellitus, Hypertension, Osteoarthritis (OA), Pneumonia, Prostate Disorder, Renal Disease, Sleep Apnea/CPAP/BIPAP, Vascular Disorder Additional Past Medical History / Comment(s): Nonischemic cardiomyopathy, cardiac valve disease, bronchitis, JIMMIE with Cpap and O2 at 2L at hs, past decreased renal function, arthritis bilateral hands/knees, gout bilateral feet, carpal tunnel syndrome bilaterally, bilateral hand tremors, non hemorrahgic anemia. Fatty liver disease. Bilat above the knee amputation. Chronic resp. failure. History of Any Multi-Drug Resistant Organisms: MRSA Date of last positivie culture/infection: 12/23/21 MDRO Source:: Right Leg Past Surgical History: Heart Catheterization Additional Past Surgical History / Comment(s): Split thickness skin graft to L leg, bronchoscopy, cyst and partial jaw removed/has screws, oral surgery age 8- too many teeth. cataracts bilaterallly, Below Knee Amputation. Past Anesthesia/Blood Transfusion Reactions: Previous Problems w/ Anesthesia Additional Past Anesthesia/Blood Transfusion Reaction / Comment(s): STATED ERASMO Ricardo BRONCH STOPPED BREATHING, (brochoscopy done at [facility]-record on chart) Past Psychological History: Anxiety Smoking Status: Former smoker Past Alcohol Use History: None Reported Past Drug Use History: None Reported - Past Family History Father Family Medical History: Dementia, Eye Disorder Additional Family Medical History / Comment(s): MACULAR DEGENERATION Mother Family Medical History: Diabetes Mellitus, Eye Disorder, Vascular Disorder Additional Family Medical History / Comment(s): ANEURYSMS, CATARACTS. . Khadra GILLESPIE @ [facility] not aware family hx. pt's daughter had no imput. General Exam Limitations: physical limitation General appearance: alert, in no apparent distress Head exam: Present: atraumatic, normocephalic, normal inspection Eye exam: Present: normal appearance, PERRL, EOMI. Absent: scleral icterus, conjunctival injection, periorbital swelling ENT exam: Present: normal exam, normal oropharynx, mucous membranes moist Neck exam: Present: normal inspection, full ROM. Absent: tenderness, meningismus, lymphadenopathy Respiratory exam: Present: respiratory distress, wheezes. Absent: rales, rhonchi, stridor Cardiovascular Exam: Present: irregular rhythm, normal heart sounds. Absent: regular rate, normal rhythm, systolic murmur, diastolic murmur, rubs, gallop, clicks Course Vital Signs 09/30/24 09/30/24 09/30/24 05:54 06:02 06:07 Temperature 101.7 F H Pulse Rate 79 81 Respiratory 20 22 Rate Blood Pressure 180/94 O2 Sat by Pulse 97 Oximetry 09/30/24 06:18 Temperature Pulse Rate 85 Respiratory Rate Blood Pressure O2 Sat by Pulse Oximetry Medical Decision Making - Medical Decision Making Was pt. sent in by a medical professional or institution (, JEWEL, TALENT BU[employer]ER, urgent care, hospital, or fdc...) When possible be specific @ -[facility] Did you speak to anyone other than the patient for history (EMS, parent, family, police, friend...)? What history was obtained from this source @ -No Did you review nursing and triage notes (agree or disagree)? Why? @ -I reviewed and agree with nursing and triage notes Were old charts reviewed (outside hosp., previous admission, EMS record, old EKG, old radiological studies, urgent care reports/EKG's, fdc records)? Report findings @ -No old charts were reviewed Differential Diagnosis (chest pain, altered mental status, abdominal pain women, abdominal pain men, vaginal bleeding, weakness, fever, dyspnea, syncope, headache, dizziness, GI bleed, back pain, seizure, CVA, palpatations, mental health, musculoskeletal)? @ -Differential Dyspnea: Coronary syndrome, arrhythmia, tamponade, asthma, COPD, pulmonary embolism, pneumonia, pneumothorax, pulmonary effusion, anaphylaxis, diabetic ketoacidosis, flailed chest, pulmonary contusion, diaphragmatic rupture, anemia, neuromuscular, this is not meant to be an all-inclusive list. EKG interpreted by me (3pts min.). @ -As above X-rays interpreted by me (1pt min.). @ -Chest x-ray shows pulmonary infiltrate, COPD changes CT interpreted by me (1pt min.). @ -None done U/S interpreted by me (1pt. min.). @ -None done What testing was considered but not performed or refused? (CT, X-rays, U/S, labs)? Why? @ -None What meds were considered but not given or refused? Why? @ -None Did you discuss the management of the patient with other professionals (professionals i.e. , PA, TALENT BUYER, lab, RT, psych nurse, administrator social welfare, cup machine operator, teacher, procurement officer, upper caser)? Give summary @ -Casandra with [facility] for admission Was smoking cessation discussed for >3mins.? @ -No Was critical care preformed (if so, how long)? @ -[35 minutes Were there social determinants of health that impacted care today? How? (Homelessness, low income, unemployed, alcoholism, drug addiction, transportation, low edu. Level, literacy, decrease access to med. care, group home, rehab)? @ -No Was there de-escalation of care discussed even if they declined (Discuss DNR or withdrawal of care, Hospice)? DNR status @ -No What co-morbidities impacted this encounter? (DM, HTN, Smoking, COPD, CAD, Cancer, CVA, ARF, Chemo, Hep., AIDS, mental health diagnosis, sleep apnea, mo rbid obesity)? @ -COPD, diabetes Was patient admitted / discharged? Hospital course, mention meds given and route, prescriptions, significant lab abnormalities, going to OR and other pertinent info. @ -Admitted patient presented for increasing dyspnea, hypoxia. Patient is found to have RSV, COPD exacerbation with evidence of pneumonia. Patient was given DuoNeb, albuterol treatments. Patient did receive Solu-Medrol patient found to have a mild acute kidney injury with hyperkalemia. Patient was given insulin, 1 fluid bolus, Lokelma. Patient will recheck potassium, pulmonary consult. Patient will continue steroids along with insulin. Undiagnosed new problem with uncertain prognosis? @ -No Drug Therapy requiring intensive monitoring for toxicity (Heparin, Nitro, Insulin, Cardizem)? @ -No Were any procedures done? @ -No Diagnosis/symptom? @ -COPD exacerbation, pneumonia, RSV, hyperkalemia, acute kidney injury Acute, or Chronic, or Acute on Chronic? @ -Acute Uncomplicated (without systemic symptoms) or Complicated (systemic symptoms)? @ -Complicated Side effects of treatment? @ -No Exacerbation, Progression, or Severe Exacerbation? @ -COPD exacerbation Poses a threat to life or bodily function? How? (Chest pain, [place], [place], pneumonia, PE, COPD, DKA, ARF, appy, cholecystitis, CVA, Diverticulitis, Homicidal, Suicidal, threat to staff... and all critical care pts) @ -Yes COPD, pneumonia, risk for pulmonary failure - Lab Data Result diagrams: 09/30/24 06:09 09/30/24 06:45 Lab Results 09/30/24 09/30/24 09/30/24 Range/Units 06:08 06:09 06:09 WBC 5.2 (3.8-10.6) k/uL RBC 4.15 L (4.30-5.90) m/uL Hgb 13.6 (13.0-17.5) gm/dL Hct 44.1 (39.0-53.0) % MCV 106.2 H (80.0-100.0) fL MCH 32.7 (25.0-35.0) pg MCHC 30.8 L (31.0-37.0) g/dL RDW 15.3 (11.5-15.5) % Plt Count 105 L (150-450) k/uL MPV 8.9 Neutrophils % 75 % Lymphocytes % 15 % Monocytes % 4 % Eosinophils % 3 % Basophils % 1 % Neutrophils # 3.9 (1.3-7.7) k/uL Lymphocytes # 0.8 L (1.0-4.8) k/uL Monocytes # 0.2 (0-1.0) k/uL Eosinophils # 0.1 (0-0.7) k/uL Basophils # 0.1 (0-0.2) k/uL Hypochromasia Slight Macrocytosis Moderate PT 11.6 (10.0-12.5) sec INR 1.1 (<1.2) APTT 27.6 (22.0-30.0) sec Sodium (137-145) mmol/L Potassium (3.5-5.1) mmol/L Chloride (98-107) mmol/L Carbon Dioxide (22-30) mmol/L Anion Gap mmol/L BUN (9-20) mg/dL Creatinine (0.66-1.25) mg/dL Est GFR (CKD-EPI)AfAm (>60 ml/min/1.73 sqM) Est GFR (CKD-EPI)NonAf (>60 ml/min/1.73 sqM) Glucose (74-99) mg/dL Plasma Lactic Acid Tavares (0.7-2.0) mmol/L Calcium (8.4-10.2) mg/dL Total Bilirubin (0.2-1.3) mg/dL AST (17-59) U/L ALT (4-49) U/L Alkaline Phosphatase (38-126) U/L Troponin I (0.000-0.034) ng/mL Total Protein (6.3-8.2) g/dL Albumin (3.5-5.0) g/dL Influenza Type A (PCR) Not Detected (Not Detectd) Influenza Type B (PCR) Not Detected (Not Detectd) RSV (PCR) Detected A (Not Detectd) SARS-CoV-2 (PCR) Not Detected (Not Detectd) 09/30/24 09/30/24 09/30/24 Range/Units 06:09 06:09 06:09 WBC (3.8-10.6) k/uL RBC (4.30-5.90) m/uL Hgb (13.0-17.5) gm/dL Hct (39.0-53.0) % MCV (80.0-100.0) fL MCH (25.0-35.0) pg MCHC (31.0-37.0) g/dL RDW (11.5-15.5) % Plt Count (150-450) k/uL MPV Neutrophils % % Lymphocytes % % Monocytes % % Eosinophils % % Basophils % % Neutrophils # (1.3-7.7) k/uL Lymphocytes # (1.0-4.8) k/uL Monocytes # (0-1.0) k/uL Eosinophils # (0-0.7) k/uL Basophils # (0-0.2) k/uL Hypochromasia Macrocytosis PT (10.0-12.5) sec INR (<1.2) APTT (22.0-30.0) sec Sodium 133 L (137-145) mmol/L Potassium 6.2 H* (3.5-5.1) mmol/L Chloride 97 L (98-107) mmol/L Carbon Dioxide 29 (22-30) mmol/L Anion Gap 7 mmol/L BUN 57 H (9-20) mg/dL Creatinine 1.39 H (0.66-1.25) mg/dL Est GFR (CKD-EPI)AfAm 58 (>60 ml/min/1.73 sqM) Est GFR (CKD-EPI)NonAf 50 (>60 ml/min/1.73 sqM) Glucose 349 H (74-99) mg/dL Plasma Lactic Acid Tavares 1.4 (0.7-2.0) mmol/L Calcium 8.5 (8.4-10.2) mg/dL Total Bilirubin 1.1 (0.2-1.3) mg/dL AST 76 H (17-59) U/L ALT 59 H (4-49) U/L Alkaline Phosphatase 161 H (38-126) U/L Troponin I 0.027 (0.000-0.034) ng/mL Total Protein 7.1 (6.3-8.2) g/dL Albumin 3.9 (3.5-5.0) g/dL Influenza Type A (PCR) (Not Detectd) Influenza Type B (PCR) (Not Detectd) RSV (PCR) (Not Detectd) SARS-CoV-2 (PCR) (Not Detectd) 09/30/24 Range/Units 06:45 WBC (3.8-10.6) k/uL RBC (4.30-5.90) m/uL Hgb (13.0-17.5) gm/dL Hct (39.0-53.0) % MCV (80.0-100.0) fL MCH (25.0-35.0) pg MCHC (31.0-37.0) g/dL RDW (11.5-15.5) % Plt Count (150-450) k/uL MPV Neutrophils % % Lymphocytes % % Monocytes % % Eosinophils % % Basophils % % Neutrophils # (1.3-7.7) k/uL Lymphocytes # (1.0-4.8) k/uL Monocytes # (0-1.0) k/uL Eosinophils # (0-0.7) k/uL Basophils # (0-0.2) k/uL Hypochromasia Macrocytosis PT (10.0-12.5) sec INR (<1.2) APTT (22.0-30.0) sec Sodium (137-145) mmol/L Potassium 6.1 H* (3.5-5.1) mmol/L Chloride (98-107) mmol/L Carbon Dioxide (22-30) mmol/L Anion Gap mmol/L BUN (9-20) mg/dL Creatinine (0.66-1.25) mg/dL Est GFR (CKD-EPI)AfAm (>60 ml/min/1.73 sqM) Est GFR (CKD-EPI)NonAf (>60 ml/min/1.73 sqM) Glucose (74-99) mg/dL Plasma Lactic Acid Tavares (0.7-2.0) mmol/L Calcium (8.4-10.2) mg/dL Total Bilirubin (0.2-1.3) mg/dL AST (17-59) U/L ALT (4-49) U/L Alkaline Phosphatase (38-126) U/L Troponin I (0.000-0.034) ng/mL Total Protein (6.3-8.2) g/dL Albumin (3.5-5.0) g/dL Influenza Type A (PCR) (Not Detectd) Influenza Type B (PCR) (Not Detectd) RSV (PCR) (Not Detectd) SARS-CoV-2 (PCR) (Not Detectd) - EKG Data -: EKG Interpreted by Me EKG Comments: EKG performed at 5: 57 A-fib with a right bundle rate 82 QRS 148 QT/QTc 377/415 Critical Care Time Critical Care Time: Yes Total Critical Care Time: 35 Disposition Clinical Impression: Hyperkalemia, Pneumonia, COPD with acute exacerbation, RSV infection, BEV (acute kidney injury) Disposition: ADMITTED IP TO THIS HOSP Condition: Poor Referrals: Sean Muro MD [Primary Care Provider] - 1-2 days Time of Disposition: 07:52
[2024-09-30 06:30] LABS: ALT 59 U/L (4-49); AST 76 U/L (17-59); African American GFR (CKD) 58 (>60 ml/min/1.73 sqM); Albumin 3.9 g/dL (3.5-5.0); Alkaline Phosphatase 161 U/L (38-126); Anion Gap 7 mmol/L; Blood Urea Nitrogen 57 mg/dL (9-20); Calcium 8.5 mg/dL (8.4-10.2); Carbon Dioxide 29 mmol/L (22-30); Chloride 97 mmol/L (98-107); Glucose 349 mg/dL (74-99); Non-African American GFR(CKD) 50 (>60 ml/min/1.73 sqM); Sodium 133 mmol/L (137-145); Total Bilirubin 1.1 mg/dL (0.2-1.3); Total Protein 7.1 g/dL (6.3-8.2)
[2024-09-30 06:31] LABS: INR 1.1 (<1.2); Partial Thromboplastin Time 27.6 sec (22.0-30.0); Prothrombin Time 11.6 sec (10.0-12.5)
[2024-09-30 06:34] LABS: Potassium 6.2 mmol/L (3.5-5.1)
[2024-09-30] MEDS: SODIUM CHLORIDE 0.9% 500 ML 500 ML IV ONE (06:46)
[2024-09-30] MEDS: INSULIN REGULAR 100 UNIT/ML VIAL (IV) IV ONE ×2 (06:51→20:16)
[2024-09-30] MEDS: methylPREDNISolone SOD SUCCI 125 MG/2 ML VIAL IV STA (06:51)
[2024-09-30 06:59] LABS: Influenza A Not Detected (Not Detectd); Influenza B Not Detected (Not Detectd); RSV Detected (Not Detectd)
[2024-09-30 07:10] LABS: Potassium 6.1 mmol/L (3.5-5.1)
--- NOTE | 2024-09-30 07:41 | XR ---
EXAMINATION TYPE: XR chest 2V DATE OF EXAM: 09/30/2024 7:08 AM COMPARISON: 05/27/2024 CLINICAL INDICATION: Male, 74 years old with history of difficulty breathing, TECHNIQUE: XR chest 2V view(s) obtained. FINDINGS: The heart size is normal. The pulmonary vasculature is normal. Mild left lower lobe infiltrate may be present. Correlate for atelectasis or pneumonia.. IMPRESSION: 1. Mild left lower lobe infiltrate. Correlate for atelectasis or pneumonia. [facility], , 09/30/2024 7:39 AM
[2024-09-30] MEDS: SODIUM ZIRCONIUM CYCLOSILICATE 10 GM PACKET PO ONE (07:48)
[2024-09-30] MEDS ORDERED: PNEUMONIA PROTOCOL UTILIZED 1 EACH MISC PO PRN (07:52)
[2024-09-30] MEDS ORDERED: DEXTROSE 50% SYRINGE 50 ML IVP PRN ×2 (07:55)
[2024-09-30] MEDS: SODIUM ZIRCONIUM CYCLOSILICATE 10 GM PACKET PO SCH ×2 (09:48→14:09)
[2024-09-30 09:59] LABS: Glucose,Whole Blood 342 mg/dL (70-110)
--- NOTE | 2024-09-30 10:48 | P.NPCON ---
History of Present Illness - Reason for Consult acute renal failure, hyperkalemia - History of Present Illness Reason for consultation: Acute kidney injury and hyperkalemia History of present illness: Patient is a 74-year-old male seen in renal consultation for acute kidney injury and hyperkalemia. Patient's creatinine was near 1 in May 2024. Creatinine 1.39 this admission and potassium 6.2. Patient did receive IV calcium, IV insulin and Lokelma for the hyperkalemia in the emergency room. Patient came to the hospital due to worsening shortness of breath. Patient states he resides at an extended care facility and was sent to the hospital due to dyspnea. Patient states he has been having shortness of breath over the last 2 weeks or so. He does wear oxygen at home. Patient tested positive for RSV. He has longstanding history of diabetes. He was also on lisinopril as well as spironolactone outpatient. Patient has history of bilateral [id number]-[id number] amputations. Denies gross hematuria or dysuria. No chest pain. Vital signs are stable. General: No acute distress. HEENT: Head exam is unremarkable. LUNGS: No audible rhonchi or wheezes. HEART: Rate and Rhythm are regular. ABDOMEN: Obese, nontender. EXTREMITITES: Bilateral guycl-ecv-oytg amputations. Past Medical History Past Medical History: Atrial Fibrillation, Heart Failure, COPD, Diabetes Mellitus, Hypertension, Osteoarthritis (OA), Pneumonia, Prostate Disorder, Renal Disease, Sleep Apnea/CPAP/BIPAP, Vascular Disorder Additional Past Medical History / Comment(s): Nonischemic cardiomyopathy, cardiac valve disease, bronchitis, JIMMIE with Cpap and O2 at 2L at hs, past decreased renal function, arthritis bilateral hands/knees, gout bilateral feet, carpal tunnel syndrome bilaterally, bilateral hand tremors, non hemorrahgic anemia. Fatty liver disease. Bilat above the knee amputation. Chronic resp. failure. History of Any Multi-Drug Resistant Organisms: MRSA Date of last positivie culture/infection: 12/23/21 MDRO Source:: Right Leg Past Surgical History: Heart Catheterization Additional Past Surgical History / Comment(s): Split thickness skin graft to L leg, bronchoscopy, cyst and partial jaw removed/has screws, oral surgery age 8- too many teeth. cataracts bilaterallly, Below Knee Amputation. Past Anesthesia/Blood Transfusion Reactions: Previous Problems w/ Anesthesia Additional Past Anesthesia/Blood Transfusion Reaction / Comment(s): STATED DURING BRONCH STOPPED BREATHING, (brochoscopy done at [facility]-record on chart) Past Psychological History: Anxiety Smoking Status: Former smoker Past Alcohol Use History: None Reported Past Drug Use History: None Reported - Past Family History Father Family Medical History: Dementia, Eye Disorder Additional Family Medical History / Comment(s): MACULAR DEGENERATION Mother Family Medical History: Diabetes Mellitus, Eye Disorder, Vascular Disorder Additional Family Medical History / Comment(s): ANEURYSMS, CATARACTS. . Khadra JOSE MIGUEL @ [facility] not aware family hx. pt's daughter had no imput. Medications and Allergies Home Medications Medication Instructions Recorded Confirmed Type Isosorbide Mononitrate ER [Imdur] 30 mg PO DAILY@0804/11/14 09/30/24 History Tamsulosin HCl [Flomax] 0.4 mg PO HS@209904/11/14 09/30/24 History allopurinoL [Zyloprim] 300 mg PO HS@209903/03/16 09/30/24 History Digoxin [Lanoxin] 125 mcg PO DAILY@0606/09/18 09/30/24 History Magnesium Oxide 400 mg PO HS@209912/29/20 09/30/24 History Ferrous Sulfate [Iron (65 MG 325 mg PO DAILY@0800 03/20/21 09/30/24 History Elemental)] Na Phos,M-B/Na Phos,Di-Ba [Fleet 133 ml RECTAL DAILY PRN 03/20/21 09/30/24 History Adult] bisacodyL [Dulcolax] 10 mg RECTAL DAILY PRN 03/20/21 09/30/24 History Magnesium Hydroxide [Milk of 7,200 mg PO Q48H PRN 08/16/21 09/30/24 History Magnesia Concentrate] Multivitamins, Thera [Multivitamin 1 tab PO DAILY@0800 11/13/22 09/30/24 History (formulary)] Ondansetron [Zofran] 4 mg PO Q8HR PRN 11/13/22 09/30/24 History Spironolactone [Aldactone] 25 mg PO BID@0800,1700 11/13/22 09/30/24 History Apixaban [Eliquis] 2.5 mg PO BID@0800,2000 10/25/2306/25 History Furosemide [Lasix] 40 mg PO DAILY@0800 10/25/23 09/30/24 History Ipratropium-Albuterol Nebulize 3 ml INHALATION RT-QID PRN 10/25/23 09/30/24 History [Duoneb 0.5 mg-3 mg/3 ml Soln] Gabapentin [Neurontin] 100 mg PO TID@0600,1400,2200 01/23/24 09/30/24 History Metoprolol Tartrate [Lopressor] 50 mg PO BID@0800,1700 01/23/24 09/30/24 History Insulin Glargine (Lantus) [Lantus 30 units SQ HS@2100 05/14/24 09/30/24 History Vial] Loperamide HCl [Imodium A-D] 2 mg PO DIRECTED PRN 05/15/24 09/30/24 History Docusate [Colace] 100 mg PO Q12H PRN 05/27/24 09/30/24 History Famotidine [Pepcid] 20 mg PO DAILY@0800 05/27/24 09/30/24 History lisinopriL [Zestril] 10 mg PO DAILY@0800 05/27/24 09/30/24 History Budesonide [Pulmicort] 0.5 mg INHALATION RT-BID #0 ml 05/28/24 09/30/24 Rx HYDROcodone/APAP 10-325MG [[place] 1 tab PO Q6HR PRN #4 tab 05/28/24 09/30/24 Rx 10-325] Furosemide [Lasix] 20 mg PO DAILY@1400 09/30/24 09/30/24 History INSULIN LISPRO (HumaLOG) [HumaLOG] 10 units SQ AC-TID@07,11,1630 09/30/24 09/30/24 History INSULIN LISPRO (HumaLOG) [HumaLOG] See Protocol SQ ACHS 09/30/24 09/30/24 History Allergies Allergy/AdvReac Type Severity Reaction Status Date / Time No Known Allergies Allergy Verified 09/30/24 09:22 Physical Exam Vitals: Vital Signs Temp Pulse Pulse Resp BP BP Pulse Ox 09/30/24 09:59 98.2 F 77 18 134/69 95 09/30/24 08:58 99.0 F 74 16 107/74 96 09/30/24 06:18 85 09/30/24 06:07 81 09/30/24 06:02 22 09/30/24 05:54 101.7 F H 79 20 180/94 97 Intake and Output 09/29/24 09/30/24 09/30/24 22:59 06:59 14:59 Other: Weight 104.326 kg Results - Lab Results Most recent lab results Calcium 8.5 mg/dL (8.4-10.2) 09/30/24 06:09 09/30/24 06:09 09/30/24 06:45 Assessment and Plan Plan: Assessment: 1. Acute kidney injury secondary to vasomotor nephropathy secondary to acute infection. Creatinine 1.39 on admission. Baseline creatinine near 1. 2. Acute RSV pneumonia. 3. Hyperkalemia secondary to acute kidney injury, Aldactone and lisinopril. Also component of hyperglycemia. 4. Diabetes mellitus. 5. Status post bilateral [id number] amputations. Plan: Add normal saline at 60 cc an hour. Renal diet. Check bladder scan to rule out urinary retention. Check renal ultrasound. Continue to hold lisinopril and Aldactone. Add scheduled Lokelma 3 times daily. Blood glucose control. Repeat potassium level this afternoon. Thank you for the consultation. I will continue to follow the patient with you during his hospital stay.
--- NOTE | 2024-09-30 11:26 | US ---
EXAMINATION TYPE: US kidneys/renal and bladder DATE OF EXAM: 09/30/2024 COMPARISON: CT 05/27/2024 US 05/27/2024 CLINICAL INDICATION: Male, 74 years old with history of Elva; DM, HTN, and ?CKD; Patient denies any si gns, symptoms, or other relevant history TECHNIQUE: Grayscale imaging of the bilateral kidneys and urinary bladder: FINDINGS: EXAM MEASUREMENTS: Right Kidney: 10.3 x 5.3 x 5.0 cm Left Kidney: 10.8 x 4.8 x 5.3 cm Post Void Residual Volume: NA mL Right Kidney: Limited visualization due to patient body habitus Left Kidney: Limited visualization due to patient body habitus Bladder: Not visualized Bilateral Jets seen: Unable to assess Normal Post Void Residual: NA Body habitus prevents adequate ultrasound evaluation of the kidneys. IMPRESSION: Nondiagnostic ultrasound examination. [facility], , 09/30/2024 11:24 AM
[2024-09-30 11:45] LABS: African American GFR (CKD) 54 (>60 ml/min/1.73 sqM); Anion Gap 10 mmol/L; Blood Urea Nitrogen 58 mg/dL (9-20); Calcium 8.7 mg/dL (8.4-10.2); Carbon Dioxide 27 mmol/L (22-30); Chloride 97 mmol/L (98-107); Glucose 340 mg/dL (74-99); Magnesium 1.8 mg/dL (1.6-2.3); Non-African American GFR(CKD) 47 (>60 ml/min/1.73 sqM); Sodium 134 mmol/L (137-145)
[2024-09-30 11:59] LABS: Glucose,Whole Blood 375 mg/dL (70-110)
[2024-09-30] MEDS: INSULIN LISPRO (HumaLOG) 100 UNIT/ML 10 mL VL SQ SCH ×2 (12:06→16:51)
[2024-09-30] MEDS: SODIUM CHLORIDE 0.9% 1,000 ML IV SCH (12:07)
[2024-09-30] MEDS: methylPREDNISolone SOD SUCCI 125 MG/2 ML VIAL IV SCH (12:11)
--- NOTE | 2024-09-30 12:40 | P.CNPUL ---
History of Present Illness Consult date: 09/30/24 Reason for consult: dyspnea, pneumonia History of present illness: This is a 74-year-old male patient was brought into the hospital with increased shortness of breath. The patient resides in [facility] and the patient was experiencing his dyspnea along with fever and cough and the symptoms have been going on for past couple of days. The patient denies having any chest pain. He came into the emergency and the patient was found to have a fever with a temperature of 101.7. Hemodynamically stable. He was hyper tensive. He is currently on 4 L of oxygen by nasal cannula with a pulse ox of 94%. Blood work that was done emergency department showed a white cell count of 5.2 with a hemoglobin of 13.6 and a platelet count of 105. He had a component of an acute kidney injury. His K level was at 6.2 this morning with a sodium level of 133, BUN of 57 with a creatinine of 1.39 which came up to 1.47. LFTs were mildly disturbed with an AST of 76, ALT of 59 and alkaline phosphatase of 161. Troponins are negative. The patient was found to have an acute RSV infection. The viral screen was positive for history. Based on that, the patient was hospitalized and a pulmonary consultation was requested. Nephrology consultation was also requested regarding this acute kidney injury Chest x-ray was reviewed and it shows diminished lung volumes bilaterally, pulm vasculature was within normal limits. Some limited left midlung infiltrate versus atelectasis was noted. This patient has an extensive history and multiple medical problems and comorbidities. For that reason, the patient has been essentially maintained at [facility]. The patient was treated back in January 2024 for a severe gangrenous right lower extremity and the patient underwent a above-knee amputation and subsequent antibiotic treatment for MRSA and Proteus. He is known to have COPD, severe peripheral vascular disease and he has already undergone a previous left above-knee amputation on the left. He has chronic A- fib, hypertension, severe ischemic cardiomyopathy with a previous echocardiogram showing an ejection fraction 40 to 45%, type 2 diabetes mellitus, chronic kidney disease, stage II, BPH and he also suffers from hypertension, BPH, obstructive sleep apnea, for which she has been maintained on CPAP therapy, chronic fatty liver disease and gout. Review of Systems Constitutional: Reports daytime sleepiness, Reports fatigue, Reports fever, Reports weakness Eyes: denies as per HPI, denies blurred vision, denies bulging eye, denies decreased vision, denies diplopia, denies discharge, denies dry eye, denies irritation, denies itching, denies pain, denies photophobia, denies loss of peripheral vision, denies loss of vision, denies tunnel vision/blind spots Ears: deny: decreased hearing, ear discharge, earache, tinnitus Ears, nose, mouth and throat: Reports as per HPI Breasts: absent: as per HPI, gynecomastia Cardiovascular: Reports as per HPI Respiratory: Reports cough, Reports dyspnea, Reports sleep apnea Gastrointestinal: Reports as per HPI Genitourinary: Reports as per HPI Musculoskeletal: Reports as per HPI (Bilateral above-knee amputation) Integumentary: Reports as per HPI Neurological: Reports as per HPI Psychiatric: Reports as per HPI Endocrine: Reports as per HPI Hematologic/Lymphatic: Reports as per HPI Allergic/Immunologic: Reports as per HPI Past Medical History Past Medical History: Atrial Fibrillation, Heart Failure, COPD, Diabetes Mellitus, Hypertension, Osteoarthritis (OA), Pneumonia, Prostate Disorder, Renal Disease, Sleep Apnea/CPAP/BIPAP, Vascular Disorder Additional Past Medical History / Comment(s): Nonischemic cardiomyopathy, cardiac valve disease, bronchitis, JIMMIE with Cpap and O2 at 2L at hs, past decreased renal function, arthritis bilateral hands/knees, gout bilateral feet, carpal tunnel syndrome bilaterally, bilateral hand tremors, non hemorrahgic anemia. Fatty liver disease. Bilat above the knee amputation. Chronic resp. failure. History of Any Multi-Drug Resistant Organisms: MRSA Date of last positivie culture/infection: 12/23/21 MDRO Source:: Right Leg Past Surgical History: Heart Catheterization Additional Past Surgical History / Comment(s): Split thickness skin graft to L leg, bronchoscopy, cyst and partial jaw removed/has screws, oral surgery age 8- too many teeth. cataracts bilaterallly, Below Knee Amputation. Past Anesthesia/Blood Transfusion Reactions: Previous Problems w/ Anesthesia Additional Past Anesthesia/Blood Transfusion Reaction / Comment(s): STATED DURING BRONCH STOPPED BREATHING, (brochoscopy done at [facility]-record on chart) Past Psychological History: Anxiety Smoking Status: Former smoker Past Alcohol Use History: None Reported Past Drug Use History: None Reported - Past Family History Father Family Medical History: Dementia, Eye Disorder Additional Family Medical History / Comment(s): MACULAR DEGENERATION Mother Family Medical History: Diabetes Mellitus, Eye Disorder, Vascular Disorder Additional Family Medical History / Comment(s): ANEURYSMS, CATARACTS. . Skip israel CM @ [employer] not aware family hx. pt's daughter had no imput. Medications and Allergies Home Medications Medication Instructions Recorded Confirmed Type Isosorbide Mononitrate ER [Imdur] 30 mg PO DAILY@0804/11/14 09/30/24 History Tamsulosin HCl [Flomax] 0.4 mg PO HS@209904/11/14 09/30/24 History allopurinoL [Zyloprim] 300 mg PO HS@209903/03/16 09/30/24 History Digoxin [Lanoxin] 125 mcg PO DAILY@59906/09/18 09/30/24 History Magnesium Oxide 400 mg PO HS@209912/29/20 09/30/24 History Ferrous Sulfate [Iron (65 MG 325 mg PO DAILY@0800 03/20/21 09/30/24 History Elemental)] Na Phos,M-B/Na Phos,Di-Ba [Fleet 133 ml RECTAL DAILY PRN 03/20/21 09/30/24 History Adult] bisacodyL [Dulcolax] 10 mg RECTAL DAILY PRN 03/20/21 09/30/24 History Magnesium Hydroxide [Milk of 7,200 mg PO Q48H PRN 08/16/21 09/30/24 History Magnesia Concentrate] Multivitamins, Thera [Multivitamin 1 tab PO DAILY@0800 11/13/22 09/30/24 History (formulary)] Ondansetron [Zofran] 4 mg PO Q8HR PRN 11/13/22 09/30/24 History Spironolactone [Aldactone] 25 mg PO BID@0800,1700 11/13/22 09/30/24 History Apixaban [Eliquis] 2.5 mg PO BID@0800,199910/25/23 09/30/24 History Furosemide [Lasix] 40 mg PO DAILY@0800 10/25/23 09/30/24 History Ipratropium-Albuterol Nebulize 3 ml INHALATION RT-QID PRN 10/25/23 09/30/24 History [Duoneb 0.5 mg-3 mg/3 ml Soln] Gabapentin [Neurontin] 100 mg PO TID@0600,1400,2200 01/23/24 09/30/24 History Metoprolol Tartrate [Lopressor] 50 mg PO BID@0800,1700 01/23/24 09/30/24 History Insulin Glargine (Lantus) [Lantus 30 units SQ HS@2100 05/14/24 09/30/24 History Vial] Loperamide HCl [Imodium A-D] 2 mg PO DIRECTED PRN 05/15/24 09/30/24 History Docusate [Colace] 100 mg PO Q12H PRN 05/27/24 09/30/24 History Famotidine [Pepcid] 20 mg PO DAILY@0800 05/27/24 09/30/24 History lisinopriL [Zestril] 10 mg PO DAILY@0800 05/27/24 09/30/24 History Budesonide [Pulmicort] 0.5 mg INHALATION RT-BID #0 ml 05/28/24 09/30/24 Rx HYDROcodone/APAP 10-325MG [[place] 1 tab PO Q6HR PRN #4 tab 05/28/24 09/30/24 Rx 10-325] Furosemide [Lasix] 20 mg PO DAILY@1400 09/30/24 09/30/24 History INSULIN LISPRO (HumaLOG) [HumaLOG] 10 units SQ AC-TID@07,11,1630 09/30/24 09/30/24 History INSULIN LISPRO (HumaLOG) [HumaLOG] See Protocol SQ ACHS 09/30/24 09/30/24 History Allergies Allergy/AdvReac Type Severity Reaction Status Date / Time No Known Allergies Allergy Verified 09/30/24 09:22 Physical Exam Vitals: Vital Signs Temp Pulse Pulse Resp BP BP Pulse Ox 09/30/24 09:59 98.2 F 77 18 134/69 95 09/30/24 08:58 99.0 F 74 16 107/74 96 09/30/24 06:18 85 09/30/24 06:07 81 09/30/24 06:02 22 09/30/24 05:54 101.7 F H 79 20 180/94 97 Intake and Output 09/29/24 09/30/24 09/30/24 22:59 06:59 14:59 Other: Weight 104.326 kg 104.326 kg General Appearance: Alert, cooperative, mildly dyspneic and mild distress. The patient is currently on 4 L of oxygen by nasal cannula Neck HEENT: Supple, no lymphadenopathy, no thyroid enlargement, no carotid bruits. Lungs: Decreased breath sound bilaterally with fine rhonchi positive mild expiratory wheezes. Few crackles in lung base bilaterally Chest Wall: Decreased expansion with deep inspiration no tenderness and no defo rmity was found on exam, no costochondral pain or discomfort. Heart: Irregular rate and rhythm, S1, S2 positive S3 positive systolic murmur. Back: Symmetric, no curvature, ROM normal, no CVA tenderness. Severe scoliosis and kyphosis. Abdomen: Soft, non-tender, bowel sounds active all four quadrants, no masses, no organomegaly. Extremities: Bilateral above-knee amputations Pulses: No pulse. Skin: Skin color, texture, tugor normal, no rashes or lesions. Neurologic: Alert oriented x3 cranial nerves II through XII intact, no motor deficit, not able to do gait exam. Results - Laboratory Findings CBC and BMP: 09/30/24 06:09 09/30/24 06:45 PT/INR, D-dimer PT 11.6 sec (10.0-12.5) 09/30/24 06:09 INR 1.1 (<1.2) 09/30/24 06:09 Abnormal lab findings: Abnormal Labs 09/30/24 09/30/24 09/30/24 06:08 06:09 06:09 RBC 4.15 L MCV 106.2 H MCHC 30.8 L Plt Count 105 L Lymphocytes # 0.8 L Sodium 133 L Potassium 6.2 H* Chloride 97 L BUN 57 H Creatinine 1.39 H Glucose 349 H POC Glucose (mg/dL) AST 76 H ALT 59 H Alkaline Phosphatase 161 H RSV (PCR) Detected A 09/30/24 09/30/24 09/30/24 06:45 09:57 11:51 RBC MCV MCHC Plt Count Lymphocytes # Sodium 134 L Potassium 6.1 H* Chloride 97 L BUN 58 H Creatinine 1.47 H Glucose 340 H POC Glucose (mg/dL) 342 H 375 H AST ALT Alkaline Phosphatase RSV (PCR) - Diagnostic Findings Chest x-ray: image reviewed Assessment and Plan Plan: Acute RSV infection Acute hypoxic respiratory failure, currently on oxygen at 4 L/min nasal cannula. Cannot rule out the possibility of an early acute viral pneumonia versus atelectasis based on chest x-ray findings. Acute on chronic stage II kidney disease Acute hyperkalemia, related to DEBORA inhibitors, Aldactone and acute kidney injury on top of chronic kidney disease COPD Obstructive sleep apnea Chronic A-fib CHF with reduced LV function with an EF of around 40 to 45% and severe pulm hypertension with estimated PA pressure of around 57 based on echocardiogram done on 01/23/2024 Severe PAD Bilateral above-knee amputation Diabetes mellitus type 2 Degenerative arthritis Gout Fatty liver disease Hypertension Previous history of gangrene involving lower extremity and the patient has undergone bilateral above-knee amputations Plan Titrate oxygen flow to maintain saturation above 90% currently the patient is on 4 L of O2 nasal cannula. Symptomatic treatment for an acute RSV infection/pneumonia. The patient is currently on IV Solu-Medrol. Monitor blood sugar control especially with use of systemic steroids and the patient is currently on Lantus insulin 30 units and NovoLog sliding scale coverage. Suggest increasing the Lantus up to 40 and giving him 10 units of NovoLog with meals Antibiotic coverage essentially empiric at this point Continue anticoagulation with Eliquis DuoNeb nebulized treatments [id number] Resume home medications Hold DEBORA inhibitors, Aldactone and hydrate the patient. The patient is currently normal citrate of 60 cc an hour. Monitor renal function. Obtain ult rasound the kidneys and consult nephrology. Hold diuretics for now including Lasix and Aldactone Management of hyperacute hyperkalemia per nephrology, given Lokelma and potassium cocktail Will continue to follow. Time with Patient: Greater than 30
--- NOTE | 2024-09-30 13:05 | P.HPIM ---
History of Present Illness H&P Date: 09/30/24 History of present illness; patient is a 74-year-old gentleman with past medical history significant for atrial fibrillation, CAD, congestive heart failure, hypertension, hyperlipidemia, presents the ER after being sent in from [facility] for shortness of breath. Patient stated that he has been feeling sick for the last couple of days, complaining of shortness of breath at rest as on exertion, patient also complaining of cough. Patient also noted that he was having fever. There was no complaint of chills. Patient denied any chest pain. There was no complaint of orthopnea or PND there was no complaint of nausea, vomiting or abdominal pain. Because of this shortness of breath and fever, patient was sent to the ER Initial lab work done in the ER showed WBC 5.2, hemoglobin 13.6, platelet count 105, sodium 133, potassium 6.2, BUN 57, creatinine 1.39 glucose 349, lactate 1.4, AST 76, ALT 59, troponin 0.027 Influenza A not detected Influenza B not detected RSV detected COVID-19 not detected EKG done in the ER showed heart rate of 82, no ST segment elevation or depression seen, no T-wave inversions seen. Chest x-ray done in the ER showed left lower lobe infiltrate Patient admitted to internal medicine service REVIEW OF SYSTEMS: CONSTITUTIONAL: No fever, no malaise, no fatigue. HEENT: No recent visual problems or hearing problems. Cardiovascular; as mentioned above PULMONARY: As mentioned above GASTROINTESTINAL: No diarrhea, no nausea, no vomiting, no abdominal pain. NEUROLOGICAL: No headaches, no weakness, no numbness. HEMATOLOGICAL: Denies any bleeding or petechiae. GENITOURINARY: Denies any burning micturition, frequency, or urgency. MUSCULOSKELETAL/RHEUMATOLOGICAL: Denies any joint pain, swelling, or any muscle pain. ENDOCRINE: Denies any polyuria or polydipsia. The rest of the 14-point review of systems is negative. PHYSICAL EXAMINATION: GENERAL: The patient is alert and oriented x3, not in any acute distress. Well developed, well nourished. HEENT: Pupils are round and equally reacting to light. EOMI. No scleral icterus. No conjunctival pallor. Normocephalic, atraumatic. No pharyngeal erythema. No thyromegaly. CARDIOVASCULAR: S1 and S2 present. No murmurs, rubs, or gallops. PULMONARY: Diminished breath sounds at the bases bilateral, no wheezing or crackles. ABDOMEN: Soft, nontender, nondistended, normoactive bowel sounds. No palpable organomegaly. MUSCULOSKELETAL: Bilateral AKA EXTREMITIES: No cyanosis, clubbing, or pedal edema. NEUROLOGICAL: Gross neurological examination did not reveal any focal deficits. SKIN: No rashes. Assessment and plan Acute on chronic hypoxic respiratory failure Bacterial pneumonia RSV infection Hyperkalemia Acute kidney injury History of COPD History of liver cirrhosis Persistent atrial fibrillation chronic systolic CHF Hypertension Monitor vital signs Monitor CBC Monitor CMP Continue telemetry monitoring Continue RSV isolation per protocol Ordered blood cultures Ordered sputum cultures Ordered breathing treatments Ordered IV Rocephin and azithromycin Ordered IV Solu-Medrol Hyperkalemia protocol initiated Because of hyperkalemia, hold lisinopril and Aldactone Ordered blood sugar monitoring, ordered Lantus 30 units at night, continue sliding scale insulin Ultrasound of kidneys ordered Nephrology consulted Pulmonology consulted Labs and medication were reviewed.. Continue same treatment. Continue with symptomatic treatment. Resume home medication. Monitor labs and vitals. DVT and GI prophylaxis. Further recommendations as per clinical course of the patient Dictation was produced using [employer] dictation software. please excuse any grammatical, word or spelling errors. Past Medical History Past Medical History: Atrial Fibrillation, Heart Failure, COPD, Diabetes Mellitus, Hypertension, Osteoarthritis (OA), Pneumonia, Prostate Disorder, Renal Disease, Sleep Apnea/CPAP/BIPAP, Vascular Disorder Additional Past Medical History / Comment(s): Nonischemic cardiomyopathy, cardiac valve disease, bronchitis, JIMMIE with Cpap and O2 at 2L at hs, past decreased renal function, arthritis bilateral hands/knees, gout bilateral feet, carpal tunnel syndrome bilaterally, bilateral hand tremors, non hemorrahgic anemia. Fatty liver disease. Bilat above the knee amputation. Chronic resp. failure. History of Any Multi-Drug Resistant Organisms: MRSA Date of last positivie culture/infection: 12/23/21 MDRO Source:: Right Leg Past Surgical History: Heart Catheterization Additional Past Surgical History / Comment(s): Split thickness skin graft to L leg, bronchoscopy, cyst and partial jaw removed/has screws, oral surgery age 8- too many teeth. cataracts bilaterallly, Below Knee Amputation. Past Anesthesia/Blood Transfusion Reactions: Previous Problems w/ Anesthesia Additional Past Anesthesia/Blood Transfusion Reaction / Comment(s): STATED DURING BRONCH STOPPED BREATHING, (brochoscopy done at [facility]-record on chart) Past Psychological History: Anxiety Smoking Status: Former smoker Past Alcohol Use History: None Reported Past Drug Use History: None Reported - Past Family History Father Family Medical History: Dementia, Eye Disorder Additional Family Medical History / Comment(s): MACULAR DEGENERATION Mother Family Medical History: Diabetes Mellitus, Eye Disorder, Vascular Disorder Additional Family Medical History / Comment(s): ANEURYSMS, CATARACTS. . Khadra JOSE MIGUEL @ [facility] not aware family hx. pt's daughter had no imput. Medications and Allergies Home Medications Medication Instructions Recorded Confirmed Type Isosorbide Mononitrate ER [Imdur] 30 mg PO DAILY@0800 04/11/14 09/30/24 History Tamsulosin HCl [Flomax] 0.4 mg PO HS@209904/11/14 09/30/24 History allopurinoL [Zyloprim] 300 mg PO HS@209903/03/16 09/30/24 History Digoxin [Lanoxin] 125 mcg PO DAILY@0600 06/09/18 09/30/24 History Magnesium Oxide 400 mg PO HS@209912/29/20 09/30/24 History Ferrous Sulfate [Iron (65 MG 325 mg PO DAILY@0800 03/20/21 09/30/24 History Elemental)] Na Phos,M-B/Na Phos,Di-Ba [Fleet 133 ml RECTAL DAILY PRN 03/20/21 09/30/24 History Adult] bisacodyL [Dulcolax] 10 mg RECTAL DAILY PRN 03/20/21 09/30/24 History Magnesium Hydroxide [Milk of 7,200 mg PO Q48H PRN 08/16/21 09/30/24 History Magnesia Concentrate] Multivitamins, Thera [Multivitamin 1 tab PO DAILY@0800 11/13/22 09/30/24 History (formulary)] Ondansetron [Zofran] 4 mg PO Q8HR PRN 11/13/22 09/30/24 History Spironolactone [Aldactone] 25 mg PO BID@0800,1700 11/13/22 09/30/24 History Apixaban [Eliquis] 2.5 mg PO BID@0800,2000 10/25/23 09/30/24 History Furosemide [Lasix] 40 mg PO DAILY@0800 10/25/23 09/30/24 History Ipratropium-Albuterol Nebulize 3 ml INHALATION RT-QID PRN 10/25/23 09/30/24 History [Duoneb 0.5 mg-3 mg/3 ml Soln] Gabapentin [Neurontin] 100 mg PO TID@0600,1400,2200 01/23/24 09/30/24 History Metoprolol Tartrate [Lopressor] 50 mg PO BID@0800,1700 01/23/24 09/30/24 History Insulin Glargine (Lantus) [Lantus 30 units SQ HS@2100 05/14/24 09/30/24 History Vial] Loperamide HCl [Imodium A-D] 2 mg PO DIRECTED PRN 05/15/24 09/30/24 History Docusate [Colace] 100 mg PO Q12H PRN 05/27/24 09/30/24 History Famotidine [Pepcid] 20 mg PO DAILY@0800 05/27/24 09/30/24 History lisinopriL [Zestril] 10 mg PO DAILY@0800 05/27/24 09/30/24 History Budesonide [Pulmicort] 0.5 mg INHALATION RT-BID #0 ml 05/28/24 09/30/24 Rx HYDROcodone/APAP 10-325MG [[place] 1 tab PO Q6HR PRN #4 tab 05/28/24 09/30/24 Rx 10-325] Furosemide [Lasix] 20 mg PO DAILY@1400 09/30/24 09/30/24 History INSULIN LISPRO (HumaLOG) [HumaLOG] 10 units SQ AC-TID@07,11,1630 09/30/24 09/30/24 History INSULIN LISPRO (HumaLOG) [HumaLOG] See Protocol SQ ACHS 09/30/24 09/30/24 History Allergies Allergy/AdvReac Type Severity Reaction Status Date / Time No Known Allergies Allergy Verified 09/30/24 09:22 Physical Exam Vitals: Vital Signs Temp Pulse Resp BP Pulse Ox 09/30/24 08:58 99.0 F 74 16 107/74 96 09/30/24 06:18 85 09/30/24 06:07 81 09/30/24 06:02 22 09/30/24 05:54 101.7 F H 79 20 180/94 97 Intake and Output 09/29/24 09/30/24 09/30/24 22:59 06:59 14:59 Other: Weight 104.326 kg Results CBC & Chem 7: 09/30/24 06:09 09/30/24 06:45 Labs: Abnormal Lab Results - Last 24 Hours (Table) 09/30/24 09/30/24 09/30/24 Range/Units 06:08 06:09 06:09 RBC 4.15 L (4.30-5.90) m/uL MCV 106.2 H (80.0-100.0) fL MCHC 30.8 L (31.0-37.0) g/dL Plt Count 105 L (150-450) k/uL Lymphocytes # 0.8 L (1.0-4.8) k/uL Sodium 133 L (137-145) mmol/L Potassium 6.2 H* (3.5-5.1) mmol/L Chloride 97 L (98-107) mmol/L BUN 57 H (9-20) mg/dL Creatinine 1.39 H (0.66-1.25) mg/dL Glucose 349 H (74-99) mg/dL AST 76 H (17-59) U/L ALT 59 H (4-49) U/L Alkaline Phosphatase 161 H (38-126) U/L RSV (PCR) Detected A (Not Detectd) 09/30/24 Range/Units 06:45 RBC (4.30-5.90) m/uL MCV (80.0-100.0) fL MCHC (31.0-37.0) g/dL Plt Count (150-450) k/uL Lymphocytes # (1.0-4.8) k/uL Sodium (137-145) mmol/L Potassium 6.1 H* (3.5-5.1) mmol/L Chloride (98-107) mmol/L BUN (9-20) mg/dL Creatinine (0.66-1.25) mg/dL Glucose (74-99) mg/dL AST (17-59) U/L ALT (4-49) U/L Alkaline Phosphatase (38-126) U/L RSV (PCR) (Not Detectd)
[2024-09-30] MEDS: AZITHROMYCIN 500 MG in SODIUM CHLORIDE 0.9% 250 ML IVPB STA (14:06)
[2024-09-30] MEDS: GABAPENTIN 100 MG CAP PO SCH (14:08)
[2024-09-30 16:27] LABS: Glucose,Whole Blood 555 mg/dL (70-110)
[2024-09-30 16:27] LABS: Glucose,Whole Blood 511 mg/dL (70-110)
[2024-09-30] MEDS: METOPROLOL TARTRATE 50 MG TAB PO SCH (16:51)
[2024-09-30 20:07] LABS: Glucose,Whole Blood 501 mg/dL (70-110)
[2024-09-30] MEDS: DEXTROSE 50% SYRINGE 50 ML IVP STA (20:16)
[2024-09-30] MEDS: MAGNESIUM OXIDE 400 MG TAB PO SCH (20:21)
[2024-09-30] MEDS: APIXABAN 2.5 MG TABLET PO SCH (20:21)
[2024-09-30] MEDS: TAMSULOSIN 0.4 MG CAP.ER.24H PO SCH (20:21)
[2024-09-30] MEDS ORDERED: INSULIN GLARGINE (LANTUS) 100 UNIT/ML SYR SQ SCH (21:00)
[2024-09-30 21:58] LABS: Glucose,Whole Blood 502 mg/dL (70-110)
[2024-09-30] MEDS: INSULIN GLARGINE (LANTUS) 100 UNIT/ML SYR SQ SCH (22:01)
[2024-10-01] MEDS: HYDROcodone/APAP 10-325MG 1 EACH TAB PO PRN (00:59)
[2024-10-01 02:08] LABS: Glucose,Whole Blood 481 mg/dL (70-110)
[2024-10-01] MEDS ORDERED: DEXTROSE 50% SYRINGE 50 ML IVP PRN ×2 (02:11)
[2024-10-01] MEDS: INSULIN REGULAR 100 UNIT in SODIUM CHLORIDE 0.9% 100 ML IV SCH (02:35)
[2024-10-01 04:09] LABS: Glucose,Whole Blood 472 mg/dL (70-110)
[2024-10-01 05:07] LABS: Glucose,Whole Blood 486 mg/dL (70-110)
[2024-10-01 05:40] LABS: Glucose,Whole Blood 420 mg/dL (70-110)
[2024-10-01 05:42] LABS: ABG Base Excess -1.7 mmol/L; ABG HCO3 30 mmol/L (21-25); ABG Oxygen Saturation 87.8 % (94-97); ABG PO2 60 mmHg (83-108); ABG TCO2 33 mmol/L (19-24); Allen Test Performed? Yes
[2024-10-01 05:52] LABS: ABG PCO2 93 mmHg (35-45); ABG PH 7.12 (7.35-7.45)
[2024-10-01 05:58] LABS: Glucose,Whole Blood 488 mg/dL (70-110)
--- NOTE | 2024-10-01 06:17 | XR ---
EXAMINATION TYPE: XR chest 1V portable DATE OF EXAM: 10/01/2024 CLINICAL INDICATION: Male, 74 years old with history of Resp distress, progress study. TECHNIQUE: Single AP portable semiupright view of the chest is obtained. COMPARISON: Chest x-ray from one day earlier and older studies. FINDINGS: Persistent left lower lung increased opacity. Right lung remains clear. Cardiac silhouette size is stable and upper limits of normal. Osseous structures are intact. IMPRESSION: Persistent left lower lobe acute infiltrate and/or atelectasis. No significant change fro m one day earlier. [facility], , 10/01/2024 6:14 AM
[2024-10-01 06:32] LABS: Basophils % (A) 0 %; Eosinophils % (A) 0 %; HCT 47.4 % (39.0-53.0); HGB 13.8 gm/dL (13.0-17.5); Hypochromasia Marked; Lymphocytes # (A) 0.2 k/uL (1.0-4.8); Lymphocytes % (A) 4 %; MCH 32.2 pg (25.0-35.0); MCHC 29.1 g/dL (31.0-37.0); MCV 110.5 fL (80.0-100.0); Macrocytosis Marked; Mean Platelet Volume 8.8; Monocytes # (A) 0.1 k/uL (0-1.0); Monocytes % (A) 2 %; Neutrophils # (A) 5.3 k/uL (1.3-7.7); Neutrophils % (A) 93 %; Platelet Count 105 k/uL (150-450); RBC 4.29 m/uL (4.30-5.90); RDW 15.3 % (11.5-15.5); WBC 5.7 k/uL (3.8-10.6)
[2024-10-01] MEDS ORDERED: Potassium Replacement Protocol 1 EACH MISC MISCELLANE PRN (06:37)
[2024-10-01] MEDS ORDERED: Magnesium Replacement Protocol 1 EACH MISC MISCELLANE PRN (06:37)
[2024-10-01 06:40] LABS: Carbon Dioxide 31 mmol/L (22-30)
[2024-10-01 06:42] LABS: ALT 59 U/L (4-49); AST 56 U/L (17-59); African American GFR (CKD) 45 (>60 ml/min/1.73 sqM); Albumin 3.9 g/dL (3.5-5.0); Alkaline Phosphatase 146 U/L (38-126); Anion Gap 7 mmol/L; Blood Urea Nitrogen 64 mg/dL (9-20); Calcium 8.3 mg/dL (8.4-10.2); Chloride 99 mmol/L (98-107); Glucose 459 mg/dL (74-99); Non-African American GFR(CKD) 39 (>60 ml/min/1.73 sqM); Potassium 5.7 mmol/L (3.5-5.1); Sodium 137 mmol/L (137-145); Total Bilirubin 0.8 mg/dL (0.2-1.3)
[2024-10-01 06:56] LABS: Glucose,Whole Blood 393 mg/dL (70-110)
[2024-10-01 08:31] LABS: ABG Base Excess 0.6 mmol/L; ABG HCO3 30 mmol/L (21-25); ABG Oxygen Saturation 97.3 % (94-97); ABG PH 7.23 (7.35-7.45); ABG PO2 103 mmHg (83-108); ABG TCO2 32 mmol/L (19-24); Allen Test Performed? Yes
[2024-10-01 08:37] LABS: ABG PCO2 72 mmHg (35-45)
[2024-10-01 08:55] LABS: Glucose,Whole Blood 309 mg/dL (70-110)
[2024-10-01] MEDS: ISOSORBIDE MONONITRATE ER 30 MG TAB.ER.24H PO SCH (09:12)
[2024-10-01] MEDS: DEXMEDETOMIDINE/0.9% NACL(PMX) 400 MCG in EMPTY BAG 1 BAG IV SCH (09:25)
[2024-10-01] MEDS: PANTOPRAZOLE 40 MG/10 ML VIAL IVP SCH (09:42)
--- NOTE | 2024-10-01 09:50 | P.PN ---
Subjective Patient is seen in follow-up for acute kidney injury and hyperkalemia. Patient was transferred to the ICU due to respiratory distress. Currently on BiPAP. He is on insulin drip for hyperglycemia. Potassium 5.7 this morning. Receiving IV fluids. Vital signs are stable. General: No acute distress. HEENT: On BiPAP. LUNGS: No audible rhonchi or wheezes. HEART: Rate and Rhythm are regular. ABDOMEN: Obese, soft. EXTREMITITES: Bilateral [id number] amputations. Objective - Vital Signs Vital signs: Vital Signs Temp 97.0 F L 10/01/24 08:00 Pulse 83 10/01/24 09:00 Resp 16 10/01/24 09:00 BP 106/51 10/01/24 09:00 Pulse Ox 93 L 10/01/24 09:00 FiO2 40 10/01/24 09:00 Intake & Output 09/30/24 10/01/24 10/01/24 18:59 06:59 18:59 Intake Total 1200 1002.803 268.96 Output Total 150 Balance 1200 1002.803 118.96 Weight 104.326 kg 108 kg Intake: IV 960 230 Sodium Chloride 0.9% 1, 960 180 000 ml @ 60 mls/hr IV . [id number] JULIEN Rx#:[id number] cefTRIAXone 2 gm In 50 Sodium Chloride 0.9% 50 ml @ 100 mls/hr IVPB Q24HR JULIEN Rx#:[id number] Intake, IV Titration 42.803 38.96 Amount Insulin Regular 100 unit 42.803 38.96 In Sodium Chloride 0.9% 100 ml @ Titrate IV .Q0M JULIEN Rx#:[id number] Oral 1200 Output: Urine 150 Other: Voiding Method External Catheter External Catheter # Voids 1 - Labs CBC & Chem 7: 10/01/24 06:07 10/01/24 06:07 Labs: Abnormal Lab Results - Last 24 Hours (Table) 09/30/24 09/30/24 09/30/24 Range/Units 06:09 06:45 09:57 RBC (4.30-5.90) m/uL MCV (80.0-100.0) fL MCHC (31.0-37.0) g/dL Plt Count (150-450) k/uL Lymphocytes # (1.0-4.8) k/uL Macrocytosis ESR (0-20) mm/Hr ABG pH (7.35-7.45) ABG pCO2 (35-45) mmHg ABG pO2 (83-108) mmHg ABG HCO3 (21-25) mmol/L ABG Total CO2 (19-24) mmol/L ABG O2 Saturation (94-97) % Sodium 134 L (137-145) mmol/L Potassium 6.1 H* (3.5-5.1) mmol/L Chloride 97 L (98-107) mmol/L Carbon Dioxide (22-30) mmol/L BUN 58 H (9-20) mg/dL Creatinine 1.47 H (0.66-1.25) mg/dL Glucose 340 H (74-99) mg/dL POC Glucose (mg/dL) 342 H (70-110) mg/dL Hemoglobin A1c 10.1 H (<=6.0) % Calcium (8.4-10.2) mg/dL ALT (4-49) U/L Alkaline Phosphatase (38-126) U/L 09/30/24 09/30/24 09/30/24 Range/Units 10:00 11:51 13:06 RBC (4.30-5.90) m/uL MCV (80.0-100.0) fL MCHC (31.0-37.0) g/dL Plt Count (150-450) k/uL Lymphocytes # (1.0-4.8) k/uL Macrocytosis ESR 34 H (0-20) mm/Hr ABG pH (7.35-7.45) ABG pCO2 (35-45) mmHg ABG pO2 (83-108) mmHg ABG HCO3 (21-25) mmol/L ABG Total CO2 (19-24) mmol/L ABG O2 Saturation (94-97) % Sodium (137-145) mmol/L Potassium 6.0 H (3.5-5.1) mmol/L Chloride (98-107) mmol/L Carbon Dioxide (22-30) mmol/L BUN (9-20) mg/dL Creatinine (0.66-1.25) mg/dL Glucose (74-99) mg/dL POC Glucose (mg/dL) 375 H (70-110) mg/dL Hemoglobin A1c (<=6.0) % Calcium (8.4-10.2) mg/dL ALT (4-49) U/L Alkaline Phosphatase (38-126) U/L 09/30/24 09/30/24 09/30/24 Range/Units 16:21 16:23 20:04 RBC (4.30-5.90) m/uL MCV (80.0-100.0) fL MCHC (31.0-37.0) g/dL Plt Count (150-450) k/uL Lymphocytes # (1.0-4.8) k/uL Macrocytosis ESR (0-20) mm/Hr ABG pH (7.35-7.45) ABG pCO2 (35-45) mmHg ABG pO2 (83-108) mmHg ABG HCO3 (21-25) mmol/L ABG Total CO2 (19-24) mmol/L ABG O2 Saturation (94-97) % Sodium (137-145) mmol/L Potassium (3.5-5.1) mmol/L Chloride (98-107) mmol/L Carbon Dioxide (22-30) mmol/L BUN (9-20) mg/dL Creatinine (0.66-1.25) mg/dL Glucose (74-99) mg/dL POC Glucose (mg/dL) 511 H* 555 H* 501 H* (70-110) mg/dL Hemoglobin A1c (<=6.0) % Calcium (8.4-10.2) mg/dL ALT (4-49) U/L Alkaline Phosphatase (38-126) U/L 09/30/24 09/30/24 10/01/24 Range/Units 20:59 21:56 02:04 RBC (4.30-5.90) m/uL MCV (80.0-100.0) fL MCHC (31.0-37.0) g/dL Plt Count (150-450) k/uL Lymphocytes # (1.0-4.8) k/uL Macrocytosis ESR (0-20) mm/Hr ABG pH (7.35-7.45) ABG pCO2 (35-45) mmHg ABG pO2 (83-108) mmHg ABG HCO3 (21-25) mmol/L ABG Total CO2 (19-24) mmol/L ABG O2 Saturation (94-97) % Sodium (137-145) mmol/L Potassium 5.6 H (3.5-5.1) mmol/L Chloride (98-107) mmol/L Carbon Dioxide (22-30) mmol/L BUN (9-20) mg/dL Creatinine (0.66-1.25) mg/dL Glucose (74-99) mg/dL POC Glucose (mg/dL) 502 H* 481 H (70-110) mg/dL Hemoglobin A1c (<=6.0) % Calcium (8.4-10.2) mg/dL ALT (4-49) U/L Alkaline Phosphatase (38-126) U/L 10/01/24 10/01/24 10/01/24 Range/Units 04:07 05:03 05:34 RBC (4.30-5.90) m/uL MCV (80.0-100.0) fL MCHC (31.0-37.0) g/dL Plt Count (150-450) k/uL Lymphocytes # (1.0-4.8) k/uL Macrocytosis ESR (0-20) mm/Hr ABG pH 7.12 L* (7.35-7.45) ABG pCO2 93 H* (35-45) mmHg ABG pO2 60 L (83-108) mmHg ABG HCO3 30 H (21-25) mmol/L ABG Total CO2 33 H (19-24) mmol/L ABG O2 Saturation 87.8 L (94-97) % Sodium (137-145) mmol/L Potassium (3.5-5.1) mmol/L Chloride (98-107) mmol/L Carbon Dioxide (22-30) mmol/L BUN (9-20) mg/dL Creatinine (0.66-1.25) mg/dL Glucose (74-99) mg/dL POC Glucose (mg/dL) 472 H 486 H (70-110) mg/dL Hemoglobin A1c (<=6.0) % Calcium (8.4-10.2) mg/dL ALT (4-49) U/L Alkaline Phosphatase (38-126) U/L 10/01/24 10/01/24 10/01/24 Range/Units 05:39 05:56 06:07 RBC 4.29 L (4.30-5.90) m/uL MCV 110.5 H (80.0-100.0) fL MCHC 29.1 L (31.0-37.0) g/dL Plt Count 105 L (150-450) k/uL Lymphocytes # 0.2 L (1.0-4.8) k/uL Macrocytosis Marked A ESR (0-20) mm/Hr ABG pH (7.35-7.45) ABG pCO2 (35-45) mmHg ABG pO2 (83-108) mmHg ABG HCO3 (21-25) mmol/L ABG Total CO2 (19-24) mmol/L ABG O2 Saturation (94-97) % Sodium (137-145) mmol/L Potassium (3.5-5.1) mmol/L Chloride (98-107) mmol/L Carbon Dioxide (22-30) mmol/L BUN (9-20) mg/dL Creatinine (0.66-1.25) mg/dL Glucose (74-99) mg/dL POC Glucose (mg/dL) 420 H 488 H (70-110) mg/dL Hemoglobin A1c (<=6.0) % Calcium (8.4-10.2) mg/dL ALT (4-49) U/L Alkaline Phosphatase (38-126) U/L 10/01/24 10/01/24 10/01/24 Range/Units 06:07 06:54 08:29 RBC (4.30-5.90) m/uL MCV (80.0-100.0) fL MCHC (31.0-37.0) g/dL Plt Count (150-450) k/uL Lymphocytes # (1.0-4.8) k/uL Macrocytosis ESR (0-20) mm/Hr ABG pH 7.23 L (7.35-7.45) ABG pCO2 72 H* (35-45) mmHg ABG pO2 (83-108) mmHg ABG HCO3 30 H (21-25) mmol/L ABG Total CO2 32 H (19-24) mmol/L ABG O2 Saturation 97.3 H (94-97) % Sodium (137-145) mmol/L Potassium 5.7 H (3.5-5.1) mmol/L Chloride (98-107) mmol/L Carbon Dioxide 31 H (22-30) mmol/L BUN 64 H (9-20) mg/dL Creatinine 1.71 H (0.66-1.25) mg/dL Glucose 459 H (74-99) mg/dL POC Glucose (mg/dL) 393 H (70-110) mg/dL Hemoglobin A1c (<=6.0) % Calcium 8.3 L (8.4-10.2) mg/dL ALT 59 H (4-49) U/L Alkaline Phosphatase 146 H (38-126) U/L 10/01/24 Range/Units 08:53 RBC (4.30-5.90) m/uL MCV (80.0-100.0) fL MCHC (31.0-37.0) g/dL Plt Count (150-450) k/uL Lymphocytes # (1.0-4.8) k/uL Macrocytosis ESR (0-20) mm/Hr ABG pH (7.35-7.45) ABG pCO2 (35-45) mmHg ABG pO2 (83-108) mmHg ABG HCO3 (21-25) mmol/L ABG Total CO2 (19-24) mmol/L ABG O2 Saturation (94-97) % Sodium (137-145) mmol/L Potassium (3.5-5.1) mmol/L Chloride (98-107) mmol/L Carbon Dioxide (22-30) mmol/L BUN (9-20) mg/dL Creatinine (0.66-1.25) mg/dL Glucose (74-99) mg/dL POC Glucose (mg/dL) 309 H (70-110) mg/dL Hemoglobin A1c (<=6.0) % Calcium (8.4-10.2) mg/dL ALT (4-49) U/L Alkaline Phosphatase (38-126) U/L Assessment and Plan Plan: Assessment: 1. Acute kidney injury secondary to ATN secondary to severe sepsis. Creatinine 1.39 on admission -1.71 today. Baseline creatinine near 1. Kidney ultrasound was nondiagnostic. 2. Acute RSV pneumonia. 3. Hyperkalemia secondary to acute kidney injury, Aldactone and lisinopril. Also component of hyperglycemia. 4. Diabetes mellitus. On insulin drip. 5. Status post bilateral [id number] amputations. 6. Acute hypoxic and hypercapnic respiratory failure. On BiPAP. Plan: Increase rate of normal saline to 75 cc an hour. Renal diet. Continue to hold lisinopril and Aldactone. Unable to take Lokelma at this time. Blood glucose control. Repeat potassium level this afternoon. Wean FiO2.
[2024-10-01 09:55] LABS: Glucose,Whole Blood 242 mg/dL (70-110)
[2024-10-01] MEDS: AZITHROMYCIN 500 MG in SODIUM CHLORIDE 0.9% 250 ML IVPB SCH (10:21)
[2024-10-01 11:26] LABS: Glucose,Whole Blood 234 mg/dL (70-110)
[2024-10-01 12:08] LABS: Glucose,Whole Blood 183 mg/dL (70-110)
--- NOTE | 2024-10-01 12:48 | P.PN ---
Subjective Progress Note Date: 10/01/24 patient is a 74-year-old gentleman with past medical history significant for atrial fibrillation, CAD, congestive heart failure, hypertension, hyperlipidemia, presents the ER after being sent in from [facility] for shortness of breath. Patient stated that he has been feeling sick for the last couple of days, complaining of shortness of breath at rest as on exertion, patient also complaining of cough. Patient also noted that he was having fever. There was no complaint of chills. Patient denied any chest pain. There was no complaint of orthopnea or PND there was no complaint of nausea, vomiting or abdominal pain. Because of this shortness of breath and fever, patient was sent to the ER Initial lab work done in the ER showed WBC 5.2, hemoglobin 13.6, platelet count 105, sodium 133, potassium 6.2, BUN 57, creatinine 1.39 glucose 349, lactate 1.4, AST 76, ALT 59, troponin 0.027 Influenza A not detected Influenza B not detected RSV detected COVID-19 not detected EKG done in the ER showed heart rate of 82, no ST segment elevation or depression seen, no T-wave inversions seen. Chest x-ray done in the ER showed left lower lobe infiltrate Patient admitted to internal medicine service 10/01. Patient seen and examined. Patient had a rapid response called this morning for respiratory distress and confusion. Patient had to be placed on BiPAP and was transferred to ICU. Patient started on insulin drip. REVIEW OF SYSTEMS: Review of system cannot be obtained as patient is currently obtunded PHYSICAL EXAMINATION: GENERAL: The patient is trended, currently on BiPAP HEENT: Pupils are round and equally reacting to light. EOMI. No scleral icterus. No conjunctival pallor. Normocephalic, atraumatic. No pharyngeal erythema. No thyromegaly. CARDIOVASCULAR: S1 and S2 present. No murmurs, rubs, or gallops. PULMONARY: Diminished breath sounds at the bases bilateral, no wheezing or crackles. ABDOMEN: Soft, nontender, nondistended, normoactive bowel sounds. No palpable organomegaly. MUSCULOSKELETAL: Bilateral AKA EXTREMITIES: No cyanosis, clubbing, or pedal edema. NEUROLOGICAL: Gross neurological examination did not reveal any focal deficits. SKIN: No rashes. Assessment and plan Acute on chronic hypoxic respiratory failure Bacterial pneumonia RSV infection Hyperkalemia Acute kidney injury on chronic kidney disease History of COPD History of liver cirrhosis Persistent atrial fibrillation chronic systolic CHF Hypertension Severe PAD Bilateral above-knee amputation Monitor vital signs Monitor CBC Monitor CMP Continue telemetry monitoring Continue oxygen supplementation Continue BiPAP as needed Aggressive bronchopulmonary hygiene Follow-up on blood cultures and sputum cultures Continue IV Rocephin, azithromycin Continue IV Solu-Medrol Currently on insulin drip Hold DEBORA inhibitors, Aldacton IV fluids Nephrology following Pulmonology following Labs and medication were reviewed.. Continue same treatment. Continue with symptomatic treatment. Resume home medication. Monitor labs and vitals. DVT and GI prophylaxis. Further recommendations as per clinical course of the patient Dictation was produced using [employer] dictation software. please excuse any grammatical, word or spelling errors. Objective - Vital Signs Vital signs: Vital Signs Temp 97.0 F L 10/01/24 08:00 Pulse 72 10/01/24 10:00 Resp 13 10/01/24 10:00 BP 143/84 10/01/24 10:00 Pulse Ox 93 L 10/01/24 10:00 FiO2 40 10/01/24 10:00 Intake & Output 09/30/24 10/01/24 10/01/24 18:59 06:59 18:59 Intake Total 1200 1002.803 347.197 Output Total 150 Balance 1200 1002.803 197.197 Weight 104.326 kg 108 kg Intake: IV 960 290 Sodium Chloride 0.9% 1, 960 240 000 ml @ 60 mls/hr IV . [id number] JULIEN Rx#:[id number] cefTRIAXone 2 gm In 50 Sodium Chloride 0.9% 50 ml @ 100 mls/hr IVPB Q24HR JULIEN Rx#:[id number] Intake, IV Titration 42.803 57.197 Amount Insulin Regular 100 unit 42.803 57.197 In Sodium Chloride 0.9% 100 ml @ Titrate IV .Q0M JULIEN Rx#:[id number] Oral 1200 Output: Urine 150 Other: Voiding Method External Catheter External Catheter # Voids 1 - Labs CBC & Chem 7: 10/01/24 06:07 10/01/24 06:07 Labs: Abnormal Lab Results - Last 24 Hours (Table) 09/30/24 09/30/24 09/30/24 Range/Units 06:09 06:45 10:00 RBC (4.30-5.90) m/uL MCV (80.0-100.0) fL MCHC (31.0-37.0) g/dL Plt Count (150-450) k/uL Lymphocytes # (1.0-4.8) k/uL Macrocytosis ESR 34 H (0-20) mm/Hr ABG pH (7.35-7.45) ABG pCO2 (35-45) mmHg ABG pO2 (83-108) mmHg ABG HCO3 (21-25) mmol/L ABG Total CO2 (19-24) mmol/L ABG O2 Saturation (94-97) % Sodium 134 L (137-145) mmol/L Potassium 6.1 H* (3.5-5.1) mmol/L Chloride 97 L (98-107) mmol/L Carbon Dioxide (22-30) mmol/L BUN 58 H (9-20) mg/dL Creatinine 1.47 H (0.66-1.25) mg/dL Glucose 340 H (74-99) mg/dL POC Glucose (mg/dL) (70-110) mg/dL Hemoglobin A1c 10.1 H (<=6.0) % Calcium (8.4-10.2) mg/dL ALT (4-49) U/L Alkaline Phosphatase (38-126) U/L 09/30/24 09/30/24 09/30/24 Range/Units 11:51 13:06 16:21 RBC (4.30-5.90) m/uL MCV (80.0-100.0) fL MCHC (31.0-37.0) g/dL Plt Count (150-450) k/uL Lymphocytes # (1.0-4.8) k/uL Macrocytosis ESR (0-20) mm/Hr ABG pH (7.35-7.45) ABG pCO2 (35-45) mmHg ABG pO2 (83-108) mmHg ABG HCO3 (21-25) mmol/L ABG Total CO2 (19-24) mmol/L ABG O2 Saturation (94-97) % Sodium (137-145) mmol/L Potassium 6.0 H (3.5-5.1) mmol/L Chloride (98-107) mmol/L Carbon Dioxide (22-30) mmol/L BUN (9-20) mg/dL Creatinine (0.66-1.25) mg/dL Glucose (74-99) mg/dL POC Glucose (mg/dL) 375 H 511 H* (70-110) mg/dL Hemoglobin A1c (<=6.0) % Calcium (8.4-10.2) mg/dL ALT (4-49) U/L Alkaline Phosphatase (38-126) U/L 09/30/24 09/30/24 09/30/24 Range/Units 16:23 20:04 20:59 RBC (4.30-5.90) m/uL MCV (80.0-100.0) fL MCHC (31.0-37.0) g/dL Plt Count (150-450) k/uL Lymphocytes # (1.0-4.8) k/uL Macrocytosis ESR (0-20) mm/Hr ABG pH (7.35-7.45) ABG pCO2 (35-45) mmHg ABG pO2 (83-108) mmHg ABG HCO3 (21-25) mmol/L ABG Total CO2 (19-24) mmol/L ABG O2 Saturation (94-97) % Sodium (137-145) mmol/L Potassium 5.6 H (3.5-5.1) mmol/L Chloride (98-107) mmol/L Carbon Dioxide (22-30) mmol/L BUN (9-20) mg/dL Creatinine (0.66-1.25) mg/dL Glucose (74-99) mg/dL POC Glucose (mg/dL) 555 H* 501 H* (70-110) mg/dL Hemoglobin A1c (<=6.0) % Calcium (8.4-10.2) mg/dL ALT (4-49) U/L Alkaline Phosphatase (38-126) U/L 09/30/24 10/01/24 10/01/24 Range/Units 21:56 02:04 04:07 RBC (4.30-5.90) m/uL MCV (80.0-100.0) fL MCHC (31.0-37.0) g/dL Plt Count (150-450) k/uL Lymphocytes # (1.0-4.8) k/uL Macrocytosis ESR (0-20) mm/Hr ABG pH (7.35-7.45) ABG pCO2 (35-45) mmHg ABG pO2 (83-108) mmHg ABG HCO3 (21-25) mmol/L ABG Total CO2 (19-24) mmol/L ABG O2 Saturation (94-97) % Sodium (137-145) mmol/L Potassium (3.5-5.1) mmol/L Chloride (98-107) mmol/L Carbon Dioxide (22-30) mmol/L BUN (9-20) mg/dL Creatinine (0.66-1.25) mg/dL Glucose (74-99) mg/dL POC Glucose (mg/dL) 502 H* 481 H 472 H (70-110) mg/dL Hemoglobin A1c (<=6.0) % Calcium (8.4-10.2) mg/dL ALT (4-49) U/L Alkaline Phosphatase (38-126) U/L 10/01/24 10/01/24 10/01/24 Range/Units 05:03 05:34 05:39 RBC (4.30-5.90) m/uL MCV (80.0-100.0) fL MCHC (31.0-37.0) g/dL Plt Count (150-450) k/uL Lymphocytes # (1.0-4.8) k/uL Macrocytosis ESR (0-20) mm/Hr ABG pH 7.12 L* (7.35-7.45) ABG pCO2 93 H* (35-45) mmHg ABG pO2 60 L (83-108) mmHg ABG HCO3 30 H (21-25) mmol/L ABG Total CO2 33 H (19-24) mmol/L ABG O2 Saturation 87.8 L (94-97) % Sodium (137-145) mmol/L Potassium (3.5-5.1) mmol/L Chloride (98-107) mmol/L Carbon Dioxide (22-30) mmol/L BUN (9-20) mg/dL Creatinine (0.66-1.25) mg/dL Glucose (74-99) mg/dL POC Glucose (mg/dL) 486 H 420 H (70-110) mg/dL Hemoglobin A1c (<=6.0) % Calcium (8.4-10.2) mg/dL ALT (4-49) U/L Alkaline Phosphatase (38-126) U/L 04/07/25 04/07/25 04/07/25 Range/Units 05:56 06:07 06:07 RBC 4.29 L (4.30-5.90) m/uL MCV 110.5 H (80.0-100.0) fL MCHC 29.1 L (31.0-37.0) g/dL Plt Count 105 L (150-450) k/uL Lymphocytes # 0.2 L (1.0-4.8) k/uL Macrocytosis Marked A ESR (0-20) mm/Hr ABG pH (7.35-7.45) ABG pCO2 (35-45) mmHg ABG pO2 (83-108) mmHg ABG HCO3 (21-25) mmol/L ABG Total CO2 (19-24) mmol/L ABG O2 Saturation (94-97) % Sodium (137-145) mmol/L Potassium 5.7 H (3.5-5.1) mmol/L Chloride (98-107) mmol/L Carbon Dioxide 31 H (22-30) mmol/L BUN 64 H (9-20) mg/dL Creatinine 1.71 H (0.66-1.25) mg/dL Glucose 459 H (74-99) mg/dL POC Glucose (mg/dL) 488 H (70-110) mg/dL Hemoglobin A1c (<=6.0) % Calcium 8.3 L (8.4-10.2) mg/dL ALT 59 H (4-49) U/L Alkaline Phosphatase 146 H (38-126) U/L 10/01/24 10/01/24 10/01/24 Range/Units 06:54 08:29 08:53 RBC (4.30-5.90) m/uL MCV (80.0-100.0) fL MCHC (31.0-37.0) g/dL Plt Count (150-450) k/uL Lymphocytes # (1.0-4.8) k/uL Macrocytosis ESR (0-20) mm/Hr ABG pH 7.23 L (7.35-7.45) ABG pCO2 72 H* (35-45) mmHg ABG pO2 (83-108) mmHg ABG HCO3 30 H (21-25) mmol/L ABG Total CO2 32 H (19-24) mmol/L ABG O2 Saturation 97.3 H (94-97) % Sodium (137-145) mmol/L Potassium (3.5-5.1) mmol/L Chloride (98-107) mmol/L Carbon Dioxide (22-30) mmol/L BUN (9-20) mg/dL Creatinine (0.66-1.25) mg/dL Glucose (74-99) mg/dL POC Glucose (mg/dL) 393 H 309 H (70-110) mg/dL Hemoglobin A1c (<=6.0) % Calcium (8.4-10.2) mg/dL ALT (4-49) U/L Alkaline Phosphatase (38-126) U/L 10/01/24 Range/Units 09:53 RBC (4.30-5.90) m/uL MCV (80.0-100.0) fL MCHC (31.0-37.0) g/dL Plt Count (150-450) k/uL Lymphocytes # (1.0-4.8) k/uL Macrocytosis ESR (0-20) mm/Hr ABG pH (7.35-7.45) ABG pCO2 (35-45) mmHg ABG pO2 (83-108) mmHg ABG HCO3 (21-25) mmol/L ABG Total CO2 (19-24) mmol/L ABG O2 Saturation (94-97) % Sodium (137-145) mmol/L Potassium (3.5-5.1) mmol/L Chloride (98-107) mmol/L Carbon Dioxide (22-30) mmol/L BUN (9-20) mg/dL Creatinine (0.66-1.25) mg/dL Glucose (74-99) mg/dL POC Glucose (mg/dL) 242 H (70-110) mg/dL Hemoglobin A1c (<=6.0) % Calcium (8.4-10.2) mg/dL ALT (4-49) U/L Alkaline Phosphatase (38-126) U/L
[2024-10-01 13:11] LABS: Glucose,Whole Blood 146 mg/dL (70-110)
--- NOTE | 2024-10-01 13:40 | P.PN ---
Subjective Progress Note Date: 10/01/24 Principal diagnosis: Acute hypoxic and hypercapnic respiratory failure This is a 74-year-old male patient was brought into the hospital with increased shortness of breath. The patient resides in [facility] and the patient was experiencing his dyspnea along with fever and cough and the symptoms have been going on for past couple of days. The patient denies having any chest pain. He came into the emergency and the patient was found to have a fever with a temperature of 101.7. Hemodynamically stable. He was hyper tensive. He is currently on 4 L of oxygen by nasal cannula with a pulse ox of 94%. Blood work that was done emergency department showed a white cell count of 5.2 with a hemoglobin of 13.6 and a platelet count of 105. He had a component of an acute kidney injury. His K level was at 6.2 this morning with a sodium level of 133, BUN of 57 with a creatinine of 1.39 which came up to 1.47. LFTs were mildly disturbed with an AST of 76, ALT of 59 and alkaline phosphatase of 161. Troponins are negative. The patient was found to have an acute RSV infection. The viral screen was positive for history. Based on that, the patient was hospitalized and a pulmonary consultation was requested. Nephrology consultation was also requested regarding this acute kidney injury Chest x-ray was reviewed and it shows diminished lung volumes bilaterally, pulm vasculature was within normal limits. Some limited left midlung infiltrate versus atelectasis was noted. This patient has an extensive history and multiple medical problems and comorbidities. For that reason, the patient has been essentially maintained at [facility]. The patient was treated back in January 2024 for a severe gangrenous right lower extremity and the patient underwent a above-knee amputation and subsequent antibiotic treatment for MRSA and Proteus. He is known to have COPD, severe peripheral vascular disease and he has already undergone a previous left above-knee amputation on the left. He has chronic A- fib, hypertension, severe ischemic cardiomyopathy with a previous echocardiogram showing an ejection fraction 40 to 45%, type 2 diabetes mellitus, chronic kidney disease, stage II, BPH and he also suffers from hypertension, BPH, obstructive sleep apnea, for which she has been maintained on CPAP therapy, chronic fatty liver disease and gout. Patient was seen today on 10/01/2024, patient was transferred to the ICU last night, he developed apparently obtundation, hypercapnia, and significantly elevated pCO2 with low pH, required placement on BiPAP 16/5/50% ABG showed a pO2 this morning of 103 pCO2 72 pH of 7.23, ABG prior showed a pO2 of 60 pCO2 of 93 pH of 7.12 prior to placement on BiPAP. Patient remains obtunded, arousable, but does not follow instructions. Remains on IV Solu-Medrol at 40 every 8, remains on antibiotics and is also on Eliquis, chest x-ray showed left lower lobe atelectasis/and or infiltrate. WBC count is 5.7 hemoglobin 13.8 electrolytes are normal potassium is down to 5.2 BUN is 64 creatinine 1.71 glucose 459 patient had positive RSV screening by PCR. Procalcitonin level is 0.22. Apparently the patient was obtunded last night, seen by the a team and he was transferred to the ICU at 630 this morning and placed on BiPAP 16/5/50% however I cut him down to 40%. IV fluid is 0.9 normal saline at 60 cc/h Objective - Vital Signs Vital signs: Vital Signs Temp 97 F L 10/01/24 12:00 Pulse 73 10/01/24 13:00 Resp 17 10/01/24 13:00 BP 99/61 10/01/24 13:00 Pulse Ox 94 L 10/01/24 13:00 FiO2 40 10/01/24 13:00 Intake & Output 09/30/24 10/01/24 10/01/24 18:59 06:59 18:59 Intake Total 1200 1002.803 794.952 Output Total 150 Balance 1200 1002.803 644.952 Weight 104.326 kg 108 kg Intake: IV 960 660 Azithromycin 500 mg In 250 Sodium Chloride 0.9% 250 ml @ 250 mls/hr IVPB DAILY JULIEN Rx#:[id number] Sodium Chloride 0.9% 1, 960 360 000 ml @ 60 mls/hr IV . [id number] JULIEN Rx#:[id number] cefTRIAXone 2 gm In 50 Sodium Chloride 0.9% 50 ml @ 100 mls/hr IVPB Q24HR JULIEN Rx#:[id number] Intake, IV Titration 42.803 134.952 Amount Dexmedetomidine/0.9% NaCl 1.35 (Pmx) 400 mcg In Empty Bag 1 bag @ 0.2 MCG/KG/HR 5.4 mls/hr IV .[id number] JULIEN Rx#:[id number] Insulin Regular 100 unit 42.803 133.602 In Sodium Chloride 0.9% 100 ml @ Titrate IV .Q0M JULIEN Rx#:[id number] Oral 1200 Output: Urine 150 Other: Voiding Method External Catheter External Catheter External Catheter # Voids 1 - Exam General Revealed 74-year-old white male obese obtunded in no distress HEENT: Neck Short obese neck, no neck masses no thyromegaly, PERRLA, EOMI, nonicteric. Dry mucous membranes Lungs: Diminished breath sound bilaterally some wheezing on forced expiratory maneuver Chest Wall: Symmetrical chest expansion no chest wall tenderness Heart: Distant S1-S2, no S3 gallop. 2/6 systolic murmur throughout the precordium Abdomen: Morbidly obese, soft, non-tender, bowel sounds active all four quadra nts, no masses, no organomegaly. Extremities: Bilateral above-knee amputations Pulses: No pulse. Skin: No rashes. Neurologic: Obtunded, arousable, does not follow instructions tend to fall asleep easily remains on BiPAP. - Labs CBC & Chem 7: 10/01/24 06:07 10/01/24 11:53 Labs: Abnormal Lab Results - Last 24 Hours (Table) 09/30/24 09/30/24 09/30/24 Range/Units 06:09 10:00 13:06 RBC (4.30-5.90) m/uL MCV (80.0-100.0) fL MCHC (31.0-37.0) g/dL Plt Count (150-450) k/uL Lymphocytes # (1.0-4.8) k/uL Macrocytosis ESR 34 H (0-20) mm/Hr ABG pH (7.35-7.45) ABG pCO2 (35-45) mmHg ABG pO2 (83-108) mmHg ABG HCO3 (21-25) mmol/L ABG Total CO2 (19-24) mmol/L ABG O2 Saturation (94-97) % Potassium 6.0 H (3.5-5.1) mmol/L Carbon Dioxide (22-30) mmol/L BUN (9-20) mg/dL Creatinine (0.66-1.25) mg/dL Glucose (74-99) mg/dL POC Glucose (mg/dL) (70-110) mg/dL Hemoglobin A1c 10.1 H (<=6.0) % Calcium (8.4-10.2) mg/dL ALT (4-49) U/L Alkaline Phosphatase (38-126) U/L 09/30/24 09/30/24 09/30/24 Range/Units 16:21 16:23 20:04 RBC (4.30-5.90) m/uL MCV (80.0-100.0) fL MCHC (31.0-37.0) g/dL Plt Count (150-450) k/uL Lymphocytes # (1.0-4.8) k/uL Macrocytosis ESR (0-20) mm/Hr ABG pH (7.35-7.45) ABG pCO2 (35-45) mmHg ABG pO2 (83-108) mmHg ABG HCO3 (21-25) mmol/L ABG Total CO2 (19-24) mmol/L ABG O2 Saturation (94-97) % Potassium (3.5-5.1) mmol/L Carbon Dioxide (22-30) mmol/L BUN (9-20) mg/dL Creatinine (0.66-1.25) mg/dL Glucose (74-99) mg/dL POC Glucose (mg/dL) 511 H* 555 H* 501 H* (70-110) mg/dL Hemoglobin A1c (<=6.0) % Calcium (8.4-10.2) mg/dL ALT (4-49) U/L Alkaline Phosphatase (38-126) U/L 09/30/24 09/30/24 10/01/24 Range/Units 20:59 21:56 02:04 RBC (4.30-5.90) m/uL MCV (80.0-100.0) fL MCHC (31.0-37.0) g/dL Plt Count (150-450) k/uL Lymphocytes # (1.0-4.8) k/uL Macrocytosis ESR (0-20) mm/Hr ABG pH (7.35-7.45) ABG pCO2 (35-45) mmHg ABG pO2 (83-108) mmHg ABG HCO3 (21-25) mmol/L ABG Total CO2 (19-24) mmol/L ABG O2 Saturation (94-97) % Potassium 5.6 H (3.5-5.1) mmol/L Carbon Dioxide (22-30) mmol/L BUN (9-20) mg/dL Creatinine (0.66-1.25) mg/dL Glucose (74-99) mg/dL POC Glucose (mg/dL) 502 H* 481 H (70-110) mg/dL Hemoglobin A1c (<=6.0) % Calcium (8.4-10.2) mg/dL ALT (4-49) U/L Alkaline Phosphatase (38-126) U/L 10/01/24 10/01/24 10/01/24 Range/Units 04:07 05:03 05:34 RBC (4.30-5.90) m/uL MCV (80.0-100.0) fL MCHC (31.0-37.0) g/dL Plt Count (150-450) k/uL Lymphocytes # (1.0-4.8) k/uL Macrocytosis ESR (0-20) mm/Hr ABG pH 7.12 L* (7.35-7.45) ABG pCO2 93 H* (35-45) mmHg ABG pO2 60 L (83-108) mmHg ABG HCO3 30 H (21-25) mmol/L ABG Total CO2 33 H (19-24) mmol/L ABG O2 Saturation 87.8 L (94-97) % Potassium (3.5-5.1) mmol/L Carbon Dioxide (22-30) mmol/L BUN (9-20) mg/dL Creatinine (0.66-1.25) mg/dL Glucose (74-99) mg/dL POC Glucose (mg/dL) 472 H 486 H (70-110) mg/dL Hemoglobin A1c (<=6.0) % Calcium (8.4-10.2) mg/dL ALT (4-49) U/L Alkaline Phosphatase (38-126) U/L 10/01/24 10/01/24 10/01/24 Range/Units 05:39 05:56 06:07 RBC 4.29 L (4.30-5.90) m/uL MCV 110.5 H (80.0-100.0) fL MCHC 29.1 L (31.0-37.0) g/dL Plt Count 105 L (150-450) k/uL Lymphocytes # 0.2 L (1.0-4.8) k/uL Macrocytosis Marked A ESR (0-20) mm/Hr ABG pH (7.35-7.45) ABG pCO2 (35-45) mmHg ABG pO2 (83-108) mmHg ABG HCO3 (21-25) mmol/L ABG Total CO2 (19-24) mmol/L ABG O2 Saturation (94-97) % Potassium (3.5-5.1) mmol/L Carbon Dioxide (22-30) mmol/L BUN (9-20) mg/dL Creatinine (0.66-1.25) mg/dL Glucose (74-99) mg/dL POC Glucose (mg/dL) 420 H 488 H (70-110) mg/dL Hemoglobin A1c (<=6.0) % Calcium (8.4-10.2) mg/dL ALT (4-49) U/L Alkaline Phosphatase (38-126) U/L 10/01/24 10/01/24 10/01/24 Range/Units 06:07 06:54 08:29 RBC (4.30-5.90) m/uL MCV (80.0-100.0) fL MCHC (31.0-37.0) g/dL Plt Count (150-450) k/uL Lymphocytes # (1.0-4.8) k/uL Macrocytosis ESR (0-20) mm/Hr ABG pH 7.23 L (7.35-7.45) ABG pCO2 72 H* (35-45) mmHg ABG pO2 (83-108) mmHg ABG HCO3 30 H (21-25) mmol/L ABG Total CO2 32 H (19-24) mmol/L ABG O2 Saturation 97.3 H (94-97) % Potassium 5.7 H (3.5-5.1) mmol/L Carbon Dioxide 31 H (22-30) mmol/L BUN 64 H (9-20) mg/dL Creatinine 1.71 H (0.66-1.25) mg/dL Glucose 459 H (74-99) mg/dL POC Glucose (mg/dL) 393 H (70-110) mg/dL Hemoglobin A1c (<=6.0) % Calcium 8.3 L (8.4-10.2) mg/dL ALT 59 H (4-49) U/L Alkaline Phosphatase 146 H (38-126) U/L 10/01/24 10/01/24 10/01/24 Range/Units 08:53 09:53 11:25 RBC (4.30-5.90) m/uL MCV (80.0-100.0) fL MCHC (31.0-37.0) g/dL Plt Count (150-450) k/uL Lymphocytes # (1.0-4.8) k/uL Macrocytosis ESR (0-20) mm/Hr ABG pH (7.35-7.45) ABG pCO2 (35-45) mmHg ABG pO2 (83-108) mmHg ABG HCO3 (21-25) mmol/L ABG Total CO2 (19-24) mmol/L ABG O2 Saturation (94-97) % Potassium (3.5-5.1) mmol/L Carbon Dioxide (22-30) mmol/L BUN (9-20) mg/dL Creatinine (0.66-1.25) mg/dL Glucose (74-99) mg/dL POC Glucose (mg/dL) 309 H 242 H 234 H (70-110) mg/dL Hemoglobin A1c (<=6.0) % Calcium (8.4-10.2) mg/dL ALT (4-49) U/L Alkaline Phosphatase (38-126) U/L 10/01/24 10/01/24 10/01/24 Range/Units 11:53 12:06 13:10 RBC (4.30-5.90) m/uL MCV (80.0-100.0) fL MCHC (31.0-37.0) g/dL Plt Count (150-450) k/uL Lymphocytes # (1.0-4.8) k/uL Macrocytosis ESR (0-20) mm/Hr ABG pH (7.35-7.45) ABG pCO2 (35-45) mmHg ABG pO2 (83-108) mmHg ABG HCO3 (21-25) mmol/L ABG Total CO2 (19-24) mmol/L ABG O2 Saturation (94-97) % Potassium 5.2 H (3.5-5.1) mmol/L Carbon Dioxide (22-30) mmol/L BUN (9-20) mg/dL Creatinine (0.66-1.25) mg/dL Glucose (74-99) mg/dL POC Glucose (mg/dL) 183 H 146 H (70-110) mg/dL Hemoglobin A1c (<=6.0) % Calcium (8.4-10.2) mg/dL ALT (4-49) U/L Alkaline Phosphatase (38-126) U/L Assessment and Plan Assessment: Impression: Acute hypoxic and hypercapnic respiratory failure, multifactorial as noted below Acute RSV infection Acute on chronic stage II kidney disease Acute hyperkalemia, related to DEBORA inhibitors, Aldactone and acute kidney injury on top of chronic kidney disease, in addition to severe respiratory acidosis with low pH Acute exacerbation of COPD Obstructive sleep apnea Obesity hypoventilation syndrome Chronic A-fib CHF with reduced LV function with an EF of around 40 to 45% and severe pulm hypertension with estimated PA pressure of around 57 based on echocardiogram done on 01/23/2024 Severe PAD Diabetes mellitus type 2 Degenerative arthritis Gout Fatty liver disease Hypertension Bilateral below-knee amputations Acute metabolic encephalopathy mostly related to his hypercapnia improving with BiPAP. Recommendation: Continue to monitor in the ICU Continue BiPAP Continue bronchodilators Continue to monitor sugars closely may have to consider even insulin drip. Continue DuoNeb updrafts Continue to hold DEBORA inhibitor's Aldactone Cut down Solu-Medrol to 40 mg IV push every 8 hours Continue to titrate oxygen accordingly on BiPAP. Continue droplet isolation Continue Eliquis Continue antibiotics empirically patient is on ceftriaxone and Zithromax Resume some of his home meds including gabapentin and hydrocodone but cut down on the dose if the patient remains obtunded Continue GI and DVT prophylaxis patient is on pantoprazole is also on Eliquis Consider intubation if the patient does not steadily improve with BiPAP. Patient is critically ill Critical care time is 33 minutes Time with Patient: Greater than 30
[2024-10-01 14:22] LABS: Glucose,Whole Blood 118 mg/dL (70-110)
[2024-10-01 14:48] LABS: ABG Base Excess 1.7 mmol/L; ABG HCO3 32 mmol/L (21-25); ABG Oxygen Saturation 96.9 % (94-97); ABG PH 7.21 (7.35-7.45); ABG PO2 88 mmHg (83-108); ABG TCO2 34 mmol/L (19-24); Allen Test Performed? Yes
[2024-10-01 14:50] LABS: ABG PCO2 81 mmHg (35-45)
[2024-10-01] MEDS: methylPREDNISolone SOD SUCCI 40 MG/ML 1 ML VIAL IV SCH (15:39)
[2024-10-01 15:45] LABS: Glucose,Whole Blood 188 mg/dL (70-110)
[2024-10-01 16:52] LABS: Glucose,Whole Blood 191 mg/dL (70-110)
[2024-10-01 17:53] LABS: Glucose,Whole Blood 197 mg/dL (70-110)
[2024-10-01 19:30] LABS: Glucose,Whole Blood 185 mg/dL (70-110)
[2024-10-01 20:44] LABS: Glucose,Whole Blood 152 mg/dL (70-110)
[2024-10-01 23:15] LABS: Glucose,Whole Blood 88 mg/dL (70-110)
[2024-10-02 00:06] LABS: Glucose,Whole Blood 112 mg/dL (70-110)
[2024-10-02 01:07] LABS: Glucose,Whole Blood 182 mg/dL (70-110)
[2024-10-02 02:02] LABS: Glucose,Whole Blood 199 mg/dL (70-110)
[2024-10-02 03:14] LABS: Glucose,Whole Blood 165 mg/dL (70-110)
[2024-10-02 04:02] LABS: Glucose,Whole Blood 152 mg/dL (70-110)
[2024-10-02 05:40] LABS: Glucose,Whole Blood 119 mg/dL (70-110)
[2024-10-02 05:50] LABS: Basophils # (A) 0.01 10*3/uL (0.00-0.10); Basophils % (A) 0.2 %; HCT 41.1 % (39.6-50.0); HGB 12.9 g/dL (13.0-17.0); Lymphocytes # (A) 0.33 10*3/uL (0.90-5.00); Lymphocytes % (A) 5.3 %; MCH 33.6 pg (27.0-32.0); MCHC 31.4 g/dL (32.0-37.0); Mean Platelet Volume 10.5 fL (9.5-12.2); Monocytes # (A) 0.14 10*3/uL (0.20-1.00); Monocytes % (A) 2.2 %; Neutrophils # (A) 5.73 10*3/uL (1.80-7.70); Neutrophils % (A) 91.3 %; RBC 3.84 10*6/uL (4.40-5.60); RDW 14.7 % (11.5-14.5); WBC 6.27 10*3/uL (4.50-10.00)
[2024-10-02 06:51] LABS: African American GFR (CKD) 62 (>60 ml/min/1.73 sqM); Anion Gap 6 mmol/L; Blood Urea Nitrogen 68 mg/dL (9-20); Calcium 8.9 mg/dL (8.4-10.2); Carbon Dioxide 30 mmol/L (22-30); Chloride 106 mmol/L (98-107); Glucose 135 mg/dL (74-99); Non-African American GFR(CKD) 53 (>60 ml/min/1.73 sqM); Sodium 142 mmol/L (137-145)
[2024-10-02 07:07] LABS: Glucose,Whole Blood 188 mg/dL (70-110)
--- NOTE | 2024-10-02 07:57 | XR ---
EXAMINATION TYPE: XR chest 1V portable DATE OF EXAM: 10/02/2024 5:13 AM COMPARISON: 10/01/2024 CLINICAL INDICATION: Male, 74 years old with history of BIPAP dependent respiratory failure, TECHNIQUE: XR chest 1V portable view(s) obtained. FINDINGS: The heart size is normal. The pulmonary vasculature is normal. Left lower lobe infiltrate appears to be resolving. Moderate residual remains. Continued follow-up re commended. IMPRESSION: 1. Improving left lower lobe infiltrate. Continued follow-up recommended [facility], , 10/02/2024 7:55 AM
[2024-10-02 08:02] LABS: Platelet Count 86 10*3/uL (140-440)
[2024-10-02 09:03] LABS: Glucose,Whole Blood 218 mg/dL (70-110)
--- NOTE | 2024-10-02 09:39 | P.PN ---
Subjective Patient is seen in follow-up for acute kidney injury and hyperkalemia. Receiving IV fluids. Currently on nasal cannula. Renal function improved. Vital signs are stable. General: No acute distress. HEENT: On nasal cannula. LUNGS: No audible rhonchi or wheezes. HEART: Rate and Rhythm are regular. ABDOMEN: Obese, soft. EXTREMITITES: Bilateral [id number] amputations. Objective - Vital Signs Vital signs: Vital Signs Temp 98.5 F 10/02/24 08:00 Pulse 138 H 10/02/24 09:00 Resp 22 10/02/24 09:00 BP 139/98 10/02/24 09:00 Pulse Ox 94 L 10/02/24 09:00 FiO2 40 10/02/24 07:30 Intake & Output 10/01/24 10/02/24 10/02/24 18:59 06:59 18:59 Intake Total 1182.746 837.671 128.132 Output Total 400 525 0 Balance 782.746 312.671 128.132 Weight 112.9 kg Intake: IV 960 720 120 Azithromycin 500 mg In 250 Sodium Chloride 0.9% 250 ml @ 250 mls/hr IVPB DAILY JULIEN Rx#:[id number] Sodium Chloride 0.9% 1, 660 720 120 000 ml @ 60 mls/hr IV . [id number] JULIEN Rx#:[id number] cefTRIAXone 2 gm In 50 Sodium Chloride 0.9% 50 ml @ 100 mls/hr IVPB Q24HR JULIEN Rx#:[id number] Intake, IV Titration 222.746 117.671 8.132 Amount Dexmedetomidine/0.9% NaCl 36.45 (Pmx) 400 mcg In Empty Bag 1 bag @ 0.2 MCG/KG/HR 5.4 mls/hr IV .[id number] JULIEN Rx#:[id number] Insulin Regular 100 unit 186.296 117.671 8.132 In Sodium Chloride 0.9% 100 ml @ Titrate IV .Q0M JULIEN Rx#:[id number] Output: Urine 400 525 0 Other: Voiding Method External Catheter External Catheter - Labs CBC & Chem 7: 10/02/24 05:36 10/02/24 05:36 Labs: Abnormal Lab Results - Last 24 Hours (Table) 10/01/24 10/01/24 10/01/24 Range/Units 09:53 11:25 11:53 RBC (4.40-5.60) 10*6/uL Hgb (13.0-17.0) g/dL MCV (80.0-97.0) fL MCH (27.0-32.0) pg MCHC (32.0-37.0) g/dL Plt Count (140-440) 10*3/uL Immature Gran # (0.00-0.04) 10*3/uL Lymphocytes # (0.90-5.00) 10*3/uL Monocytes # (0.20-1.00) 10*3/uL Eosinophils # (0.04-0.35) 10*3/uL ABG pH (7.35-7.45) ABG pCO2 (35-45) mmHg ABG HCO3 (21-25) mmol/L ABG Total CO2 (19-24) mmol/L Hemoglobin (13.0-17.5) gm/dL Potassium 5.2 H (3.5-5.1) mmol/L BUN (9-20) mg/dL Creatinine (0.66-1.25) mg/dL Glucose (74-99) mg/dL POC Glucose (mg/dL) 242 H 234 H (70-110) mg/dL 10/01/24 10/01/24 10/01/24 Range/Units 12:06 13:10 14:20 RBC (4.40-5.60) 10*6/uL Hgb (13.0-17.0) g/dL MCV (80.0-97.0) fL MCH (27.0-32.0) pg MCHC (32.0-37.0) g/dL Plt Count (140-440) 10*3/uL Immature Gran # (0.00-0.04) 10*3/uL Lymphocytes # (0.90-5.00) 10*3/uL Monocytes # (0.20-1.00) 10*3/uL Eosinophils # (0.04-0.35) 10*3/uL ABG pH (7.35-7.45) ABG pCO2 (35-45) mmHg ABG HCO3 (21-25) mmol/L ABG Total CO2 (19-24) mmol/L Hemoglobin (13.0-17.5) gm/dL Potassium (3.5-5.1) mmol/L BUN (9-20) mg/dL Creatinine (0.66-1.25) mg/dL Glucose (74-99) mg/dL POC Glucose (mg/dL) 183 H 146 H 118 H (70-110) mg/dL 10/01/24 10/01/24 10/01/24 Range/Units 14:43 15:42 16:51 RBC (4.40-5.60) 10*6/uL Hgb (13.0-17.0) g/dL MCV (80.0-97.0) fL MCH (27.0-32.0) pg MCHC (32.0-37.0) g/dL Plt Count (140-440) 10*3/uL Immature Gran # (0.00-0.04) 10*3/uL Lymphocytes # (0.90-5.00) 10*3/uL Monocytes # (0.20-1.00) 10*3/uL Eosinophils # (0.04-0.35) 10*3/uL ABG pH 7.21 L (7.35-7.45) ABG pCO2 81 H* (35-45) mmHg ABG HCO3 32 H (21-25) mmol/L ABG Total CO2 34 H (19-24) mmol/L Hemoglobin 12.7 L (13.0-17.5) gm/dL Potassium (3.5-5.1) mmol/L BUN (9-20) mg/dL Creatinine (0.66-1.25) mg/dL Glucose (74-99) mg/dL POC Glucose (mg/dL) 188 H 191 H (70-110) mg/dL 10/01/24 10/01/24 10/01/24 Range/Units 17:52 19:28 20:43 RBC (4.40-5.60) 10*6/uL Hgb (13.0-17.0) g/dL MCV (80.0-97.0) fL MCH (27.0-32.0) pg MCHC (32.0-37.0) g/dL Plt Count (140-440) 10*3/uL Immature Gran # (0.00-0.04) 10*3/uL Lymphocytes # (0.90-5.00) 10*3/uL Monocytes # (0.20-1.00) 10*3/uL Eosinophils # (0.04-0.35) 10*3/uL ABG pH (7.35-7.45) ABG pCO2 (35-45) mmHg ABG HCO3 (21-25) mmol/L ABG Total CO2 (19-24) mmol/L Hemoglobin (13.0-17.5) gm/dL Potassium (3.5-5.1) mmol/L BUN (9-20) mg/dL Creatinine (0.66-1.25) mg/dL Glucose (74-99) mg/dL POC Glucose (mg/dL) 197 H 185 H 152 H (70-110) mg/dL 10/02/24 10/02/24 10/02/24 Range/Units 00:04 01:06 01:59 RBC (4.40-5.60) 10*6/uL Hgb (13.0-17.0) g/dL MCV (80.0-97.0) fL MCH (27.0-32.0) pg MCHC (32.0-37.0) g/dL Plt Count (140-440) 10*3/uL Immature Gran # (0.00-0.04) 10*3/uL Lymphocytes # (0.90-5.00) 10*3/uL Monocytes # (0.20-1.00) 10*3/uL Eosinophils # (0.04-0.35) 10*3/uL ABG pH (7.35-7.45) ABG pCO2 (35-45) mmHg ABG HCO3 (21-25) mmol/L ABG Total CO2 (19-24) mmol/L Hemoglobin (13.0-17.5) gm/dL Potassium (3.5-5.1) mmol/L BUN (9-20) mg/dL Creatinine (0.66-1.25) mg/dL Glucose (74-99) mg/dL POC Glucose (mg/dL) 112 H 182 H 199 H (70-110) mg/dL 10/02/24 10/02/24 10/02/24 Range/Units 03:12 04:01 05:36 RBC 3.84 L (4.40-5.60) 10*6/uL Hgb 12.9 L (13.0-17.0) g/dL MCV 107.0 H (80.0-97.0) fL MCH 33.6 H (27.0-32.0) pg MCHC 31.4 L (32.0-37.0) g/dL Plt Count 86 L (140-440) 10*3/uL Immature Gran # 0.06 H (0.00-0.04) 10*3/uL Lymphocytes # 0.33 L (0.90-5.00) 10*3/uL Monocytes # 0.14 L (0.20-1.00) 10*3/uL Eosinophils # 0.00 L (0.04-0.35) 10*3/uL ABG pH (7.35-7.45) ABG pCO2 (35-45) mmHg ABG HCO3 (21-25) mmol/L ABG Total CO2 (19-24) mmol/L Hemoglobin (13.0-17.5) gm/dL Potassium (3.5-5.1) mmol/L BUN (9-20) mg/dL Creatinine (0.66-1.25) mg/dL Glucose (74-99) mg/dL POC Glucose (mg/dL) 165 H 152 H (70-110) mg/dL 10/02/24 10/02/24 10/02/24 Range/Units 05:36 05:38 07:06 RBC (4.40-5.60) 10*6/uL Hgb (13.0-17.0) g/dL MCV (80.0-97.0) fL MCH (27.0-32.0) pg MCHC (32.0-37.0) g/dL Plt Count (140-440) 10*3/uL Immature Gran # (0.00-0.04) 10*3/uL Lymphocytes # (0.90-5.00) 10*3/uL Monocytes # (0.20-1.00) 10*3/uL Eosinophils # (0.04-0.35) 10*3/uL ABG pH (7.35-7.45) ABG pCO2 (35-45) mmHg ABG HCO3 (21-25) mmol/L ABG Total CO2 (19-24) mmol/L Hemoglobin (13.0-17.5) gm/dL Potassium (3.5-5.1) mmol/L BUN 68 H (9-20) mg/dL Creatinine 1.33 H (0.66-1.25) mg/dL Glucose 135 H (74-99) mg/dL POC Glucose (mg/dL) 119 H 188 H (70-110) mg/dL 10/02/24 Range/Units 09:02 RBC (4.40-5.60) 10*6/uL Hgb (13.0-17.0) g/dL MCV (80.0-97.0) fL MCH (27.0-32.0) pg MCHC (32.0-37.0) g/dL Plt Count (140-440) 10*3/uL Immature Gran # (0.00-0.04) 10*3/uL Lymphocytes # (0.90-5.00) 10*3/uL Monocytes # (0.20-1.00) 10*3/uL Eosinophils # (0.04-0.35) 10*3/uL ABG pH (7.35-7.45) ABG pCO2 (35-45) mmHg ABG HCO3 (21-25) mmol/L ABG Total CO2 (19-24) mmol/L Hemoglobin (13.0-17.5) gm/dL Potassium (3.5-5.1) mmol/L BUN (9-20) mg/dL Creatinine (0.66-1.25) mg/dL Glucose (74-99) mg/dL POC Glucose (mg/dL) 218 H (70-110) mg/dL Microbiology - Last 24 Hours (Table) 09/30/24 08:43 Blood Culture - Preliminary Blood Assessment and Plan Plan: Assessment: 1. Acute kidney injury secondary to ATN secondary to severe sepsis. Creatinine peaked at 1.71 this admission and is 1.33 today. Baseline creatinine near 1. Kidney ultrasound was nondiagnostic. 2. Acute RSV pneumonia. 3. Hyperkalemia secondary to acute kidney injury, Aldactone and lisinopril. Also component of hyperglycemia. Improved. 4. Diabetes mellitus. On insulin drip. 5. Status post bilateral [id number] amputations. 6. Acute hypoxic and hypercapnic respiratory failure. Currently on nasal cannula. Plan: Maintain normal saline. Renal diet. Continue to hold lisinopril and Aldactone. Blood glucose control.
[2024-10-02 10:07] LABS: Glucose,Whole Blood 218 mg/dL (70-110)
--- NOTE | 2024-10-02 10:33 | P.PN ---
Subjective patient is a 74-year-old gentleman with past medical history significant for atrial fibrillation, CAD, congestive heart failure, hypertension, hype rlipidemia, presents the ER after being sent in from [facility] for shortness of breath. Patient stated that he has been feeling sick for the last couple of days, complaining of shortness of breath at rest as on exertion, patient also complaining of cough. Patient also noted that he was having fever. There was no complaint of chills. Patient denied any chest pain. There was no complaint of orthopnea or PND there was no complaint of nausea, vomiting or abdominal pain. Because of this shortness of breath and fever, patient was sent to the ER Initial lab work done in the ER showed WBC 5.2, hemoglobin 13.6, platelet count 105, sodium 133, potassium 6.2, BUN 57, creatinine 1.39 glucose 349, lactate 1.4, AST 76, ALT 59, troponin 0.027 Influenza A not detected Influenza B not detected RSV detected COVID-19 not detected EKG done in the ER showed heart rate of 82, no ST segment elevation or d epression seen, no T-wave inversions seen. Chest x-ray done in the ER showed left lower lobe infiltrate Patient admitted to internal medicine service 10/01. Patient seen and examined. Patient had a rapid response called this morning for respiratory distress and confusion. Patient had to be placed on BiPAP and was transferred to ICU. Patient started on insulin drip. 10/02 Patient is improving. He used the BiPAP overnight and currently on 3 to 4 L oxygen via nasal cannula. He is mildly tachycardic and afebrile His up in bed awake alert and he answers questions present quietly slightly tachypneic not using accessory muscles has good appetite eating his breakfast without difficulty. He denies chest pain. Hemoglobin is 12.9 platelet count is 86. Creatinine down to 1.7 down to 1.3. ESR is elevated at 39 procalcitonin is negative at 0.22 COVID and influenza test were negative while RSV is positive. Patient currently kept on normal saline at 60 mL/h, Eliquis 2.5 mg, Zithromax hospitalist on, insulin and IV Solu-Medrol Patient might be documented to medical floor at select \ Review of systems CONSTITUTIONAL: No fever, no malaise, no fatigue. GASTROINTESTINAL: No diarrhea, no nausea, no vomiting, no abdominal pain. Normoactive bowel sounds. NEUROLOGICAL: No headaches, no weakness, no numbness. HEMATOLOGICAL: Denies any bleeding or petechiae. GENITOURINARY: Denies any burning micturition, frequency, or urgency. MUSCULOSKELETAL/RHEUMATOLOGICAL: Denies any joint pain, swelling, or any muscle pain. ENDOCRINE: Denies any polyuria or polydipsia. Active Medications Generic Name Dose Route Start Last Admin Trade Name Freq PRN Reason Stop Dose Admin Hydrocodone Bitart/Acetaminophen 1 each 09/30/24 09:39 10/01/24 00:59 Hydrocodone/Apap 10-325mg 1 Each Tab PO 1 each Q6HR PRN Administration Pain Albuterol/Ipratropium 3 ml 09/30/24 07:52 Ipratropium-Albuterol 3 Ml Neb INHALATION RT-Q4H PRN shortness of breath Apixaban 2.5 mg 09/30/24 20:00 10/02/24 08:59 Apixaban 2.5 Mg Tablet PO 2.5 mg BID@0800,2000 JULIEN Administration Protocol Dextrose/Water 25 ml 10/01/24 02:11 Dextrose 50% Syringe 50 Ml IVP PER PROTOCOL PRN Hypoglycemia Protocol Dextrose/Water 50 ml 10/01/24 02:11 Dextrose 50% Syringe 50 Ml IVP PER PROTOCOL PRN Hypoglycemia Protocol Gabapentin 100 mg 09/30/24 14:00 10/02/24 06:14 Gabapentin 100 Mg Cap PO 100 mg TID@0600,1400,2200 JULIEN Administration Sodium Chloride 1,000 mls @ 60 mls/hr 09/30/24 10:45 10/01/24 20:48 Saline 0.9% IV 60 mls/hr .[id number] JULIEN Administration Insulin Human Regular 100 unit 100 mls @ 0 mls/hr 10/01/24 02:15 10/02/24 10:08 / Sodium Chloride IV 6.1 units/hr .Q0M JULIEN 6.1 mls/hr Titration Protocol Titrate Ceftriaxone Sodium 2 gm/ 50 mls @ 100 mls/hr 10/01/24 09:00 10/02/24 09:00 Sodium Chloride IVPB 10/04/24 09:29 100 mls/hr Q24HR JULIEN Administration Protocol Isosorbide Mononitrate 30 mg 10/01/24 08:00 10/02/24 08:59 Isosorbide Mononitrate Er 30 Mg Tab.Er.24h PO 30 mg DAILY@0800 JULIEN Administration Magnesium Oxide 400 mg 09/30/24 21:00 10/01/24 20:48 Magnesium Oxide 400 Mg Tab PO 400 mg HS@2100 JULIEN Administration Methylprednisolone Sodium Succinate 40 mg 10/01/24 16:00 10/02/24 09:00 Methylprednisolone Sod Succi 40 Mg/Ml 1 Ml Vial IV 40 mg Q8HR JULIEN Administration Metoprolol Tartrate 50 mg 09/30/24 17:00 10/02/24 08:59 Metoprolol Tartrate 50 Mg Tab PO 50 mg BID@0800,1700 JULIEN Administration Miscellaneous Information 1 each 09/30/24 07:52 Pneumonia Protocol Utilized 1 Each Misc PO ONCE PRN Per Protocol Miscellaneous Information 1 each 10/01/24 06:37 Potassium Replacement Protocol 1 Each Misc MISCELLANE DAILY PRN Per Protocol Miscellaneous Information 1 each 10/01/24 06:37 Magnesium Replacement Protocol 1 Each Misc MISCELLANE DAILY PRN Per Protocol Protocol Pantoprazole Sodium 40 mg 10/01/24 09:00 10/02/24 09:00 Pantoprazole 40 Mg/10 Ml Vial IVP 40 mg DAILY JULIEN Administration Tamsulosin HCl 0.4 mg 09/30/24 21:00 10/01/24 20:48 Tamsulosin 0.4 Mg Cap.Er.24h PO 0.4 mg HS@2100 JULIEN Administration Objective - Vital Signs Vital signs: Vital Signs Temp 98.5 F 10/02/24 08:00 Pulse 109 H 10/02/24 10:00 Resp 23 10/02/24 10:00 BP 149/97 10/02/24 10:00 Pulse Ox 93 L 10/02/24 10:00 FiO2 40 10/02/24 07:30 Intake & Output 10/01/24 10/02/24 10/02/24 18:59 06:59 18:59 Intake Total 1182.746 837.671 253.317 Output Total 400 525 125 Balance 782.746 312.671 128.317 Weight 112.9 kg Intake: IV 960 720 240 Azithromycin 500 mg In 250 Sodium Chloride 0.9% 250 ml @ 250 mls/hr IVPB DAILY [facility] Rx#:[id number] Sodium Chloride 0.9% 1, 660 720 240 000 ml @ 60 mls/hr IV . [id number] JULIEN Rx#:[id number] cefTRIAXone 2 gm In 50 Sodium Chloride 0.9% 50 ml @ 100 mls/hr IVPB Q24HR JULIEN Rx#:[id number] Intake, IV Titration 222.746 117.671 13.317 Amount Dexmedetomidine/0.9% NaCl 36.45 (Pmx) 400 mcg In Empty Bag 1 bag @ 0.2 MCG/KG/HR 5.4 mls/hr IV .[id number] JULIEN Rx#:[id number] Insulin Regular 100 unit 186.296 117.671 13.317 In Sodium Chloride 0.9% 100 ml @ Titrate IV .Q0M JULIEN Rx#:[id number] Output: Urine 400 525 125 Other: Voiding Method External Catheter External Catheter External Catheter - Exam GENERAL: The patient is alert and oriented x3, not in any acute distress. Well developed, well nourished. HEENT: Pupils are round and equally reacting to light. EOMI. No scleral icterus. No conjunctival pallor. Normocephalic, atraumatic. No pharyngeal erythema. No thyromegaly. CARDIOVASCULAR: S1 and S2 present. No murmurs, rubs, or gallops. -PULMONARY: Chest is clear to auscultation, scattered wheezing , mild bilateral crackles. ABDOMEN: Soft, nontender, nondistended, normoactive bowel sounds. No palpable organomegaly. MUSCULOSKELETAL: No joint swelling or deformity. EXTREMITIES: No cyanosis, clubbing, or pedal edema. NEUROLOGICAL: Gross neurological examination did not reveal any focal deficits. SKIN: No rashes. no petechiae. - Labs CBC & Chem 7: 10/02/24 05:36 10/02/24 05:36 Labs: Abnormal Lab Results - Last 24 Hours (Table) 10/01/24 10/01/24 10/01/24 Range/Units 11:25 11:53 12:06 RBC (4.40-5.60) 10*6/uL Hgb (13.0-17.0) g/dL MCV (80.0-97.0) fL MCH (27.0-32.0) pg MCHC (32.0-37.0) g/dL Plt Count (140-440) 10*3/uL Immature Gran # (0.00-0.04) 10*3/uL Lymphocytes # (0.90-5.00) 10*3/uL Monocytes # (0.20-1.00) 10*3/uL Eosinophils # (0.04-0.35) 10*3/uL ABG pH (7.35-7.45) ABG pCO2 (35-45) mmHg ABG HCO3 (21-25) mmol/L ABG Total CO2 (19-24) mmol/L Hemoglobin (13.0-17.5) gm/dL Potassium 5.2 H (3.5-5.1) mmol/L BUN (9-20) mg/dL Creatinine (0.66-1.25) mg/dL Glucose (74-99) mg/dL POC Glucose (mg/dL) 234 H 183 H (70-110) mg/dL 10/01/24 10/01/24 10/01/24 Range/Units 13:10 14:20 14:43 RBC (4.40-5.60) 10*6/uL Hgb (13.0-17.0) g/dL MCV (80.0-97.0) fL MCH (27.0-32.0) pg MCHC (32.0-37.0) g/dL Plt Count (140-440) 10*3/uL Immature Gran # (0.00-0.04) 10*3/uL Lymphocytes # (0.90-5.00) 10*3/uL Monocytes # (0.20-1.00) 10*3/uL Eosinophils # (0.04-0.35) 10*3/uL ABG pH 7.21 L (7.35-7.45) ABG pCO2 81 H* (35-45) mmHg ABG HCO3 32 H (21-25) mmol/L ABG Total CO2 34 H (19-24) mmol/L Hemoglobin 12.7 L (13.0-17.5) gm/dL Potassium (3.5-5.1) mmol/L BUN (9-20) mg/dL Creatinine (0.66-1.25) mg/dL Glucose (74-99) mg/dL POC Glucose (mg/dL) 146 H 118 H (70-110) mg/dL 10/01/24 10/01/24 10/01/24 Range/Units 15:42 16:51 17:52 RBC (4.40-5.60) 10*6/uL Hgb (13.0-17.0) g/dL MCV (80.0-97.0) fL MCH (27.0-32.0) pg MCHC (32.0-37.0) g/dL Plt Count (140-440) 10*3/uL Immature Gran # (0.00-0.04) 10*3/uL Lymphocytes # (0.90-5.00) 10*3/uL Monocytes # (0.20-1.00) 10*3/uL Eosinophils # (0.04-0.35) 10*3/uL ABG pH (7.35-7.45) ABG pCO2 (35-45) mmHg ABG HCO3 (21-25) mmol/L ABG Total CO2 (19-24) mmol/L Hemoglobin (13.0-17.5) gm/dL Potassium (3.5-5.1) mmol/L BUN (9-20) mg/dL Creatinine (0.66-1.25) mg/dL Glucose (74-99) mg/dL POC Glucose (mg/dL) 188 H 191 H 197 H (70-110) mg/dL 10/01/24 10/01/24 10/02/24 Range/Units 19:28 20:43 00:04 RBC (4.40-5.60) 10*6/uL Hgb (13.0-17.0) g/dL MCV (80.0-97.0) fL MCH (27.0-32.0) pg MCHC (32.0-37.0) g/dL Plt Count (140-440) 10*3/uL Immature Gran # (0.00-0.04) 10*3/uL Lymphocytes # (0.90-5.00) 10*3/uL Monocytes # (0.20-1.00) 10*3/uL Eosinophils # (0.04-0.35) 10*3/uL ABG pH (7.35-7.45) ABG pCO2 (35-45) mmHg ABG HCO3 (21-25) mmol/L ABG Total CO2 (19-24) mmol/L Hemoglobin (13.0-17.5) gm/dL Potassium (3.5-5.1) mmol/L BUN (9-20) mg/dL Creatinine (0.66-1.25) mg/dL Glucose (74-99) mg/dL POC Glucose (mg/dL) 185 H 152 H 112 H (70-110) mg/dL 10/02/24 10/02/24 10/02/24 Range/Units 01:06 01:59 03:12 RBC (4.40-5.60) 10*6/uL Hgb (13.0-17.0) g/dL MCV (80.0-97.0) fL MCH (27.0-32.0) pg MCHC (32.0-37.0) g/dL Plt Count (140-440) 10*3/uL Immature Gran # (0.00-0.04) 10*3/uL Lymphocytes # (0.90-5.00) 10*3/uL Monocytes # (0.20-1.00) 10*3/uL Eosinophils # (0.04-0.35) 10*3/uL ABG pH (7.35-7.45) ABG pCO2 (35-45) mmHg ABG HCO3 (21-25) mmol/L ABG Total CO2 (19-24) mmol/L Hemoglobin (13.0-17.5) gm/dL Potassium (3.5-5.1) mmol/L BUN (9-20) mg/dL Creatinine (0.66-1.25) mg/dL Glucose (74-99) mg/dL POC Glucose (mg/dL) 182 H 199 H 165 H (70-110) mg/dL 10/02/24 10/02/24 10/02/24 Range/Units 04:01 05:36 05:36 RBC 3.84 L (4.40-5.60) 10*6/uL Hgb 12.9 L (13.0-17.0) g/dL MCV 107.0 H (80.0-97.0) fL MCH 33.6 H (27.0-32.0) pg MCHC 31.4 L (32.0-37.0) g/dL Plt Count 86 L (140-440) 10*3/uL Immature Gran # 0.06 H (0.00-0.04) 10*3/uL Lymphocytes # 0.33 L (0.90-5.00) 10*3/uL Monocytes # 0.14 L (0.20-1.00) 10*3/uL Eosinophils # 0.00 L (0.04-0.35) 10*3/uL ABG pH (7.35-7.45) ABG pCO2 (35-45) mmHg ABG HCO3 (21-25) mmol/L ABG Total CO2 (19-24) mmol/L Hemoglobin (13.0-17.5) gm/dL Potassium (3.5-5.1) mmol/L BUN 68 H (9-20) mg/dL Creatinine 1.33 H (0.66-1.25) mg/dL Glucose 135 H (74-99) mg/dL POC Glucose (mg/dL) 152 H (70-110) mg/dL 10/02/24 10/02/24 10/02/24 Range/Units 05:38 07:06 09:02 RBC (4.40-5.60) 10*6/uL Hgb (13.0-17.0) g/dL MCV (80.0-97.0) fL MCH (27.0-32.0) pg MCHC (32.0-37.0) g/dL Plt Count (140-440) 10*3/uL Immature Gran # (0.00-0.04) 10*3/uL Lymphocytes # (0.90-5.00) 10*3/uL Monocytes # (0.20-1.00) 10*3/uL Eosinophils # (0.04-0.35) 10*3/uL ABG pH (7.35-7.45) ABG pCO2 (35-45) mmHg ABG HCO3 (21-25) mmol/L ABG Total CO2 (19-24) mmol/L Hemoglobin (13.0-17.5) gm/dL Potassium (3.5-5.1) mmol/L BUN (9-20) mg/dL Creatinine (0.66-1.25) mg/dL Glucose (74-99) mg/dL POC Glucose (mg/dL) 119 H 188 H 218 H (70-110) mg/dL 10/02/24 Range/Units 10:05 RBC (4.40-5.60) 10*6/uL Hgb (13.0-17.0) g/dL MCV (80.0-97.0) fL MCH (27.0-32.0) pg MCHC (32.0-37.0) g/dL Plt Count (140-440) 10*3/uL Immature Gran # (0.00-0.04) 10*3/uL Lymphocytes # (0.90-5.00) 10*3/uL Monocytes # (0.20-1.00) 10*3/uL Eosinophils # (0.04-0.35) 10*3/uL ABG pH (7.35-7.45) ABG pCO2 (35-45) mmHg ABG HCO3 (21-25) mmol/L ABG Total CO2 (19-24) mmol/L Hemoglobin (13.0-17.5) gm/dL Potassium (3.5-5.1) mmol/L BUN (9-20) mg/dL Creatinine (0.66-1.25) mg/dL Glucose (74-99) mg/dL POC Glucose (mg/dL) 218 H (70-110) mg/dL Microbiology - Last 24 Hours (Table) 09/30/24 08:43 Blood Culture - Preliminary Blood Assessment and Plan Assessment: Acute hypoxic respiratory failure RSV infection Acute COPD exacerbation Pneumonia Acute on chronic kidney injury stage II Chronic atrial fibrillation on Eliquis CHF with ejection fraction 40 to 45%, chronic Hypertension Hyperlipidemia Diabetes mellitus Obesity Severe peripheral artery disease History of gout Fatty liver History of bilateral BKA Plan: Continue with antibiotic Zithromax ceftriaxone as per pulmonary team Continue with Eliquis Continue with insulin and monitor glucose normal. Continue with the steroid, Solu-Medrol Continue with Normal Saline per director of optimization Monitor creatinine and hemoglobin Several consultants on the case including ICU critical care pulmonary team, director of optimization DVT prophylaxis: Eliquis GI prophylaxis: Pepcid Prognosis is guarded
[2024-10-02 11:04] LABS: Glucose,Whole Blood 275 mg/dL (70-110)
[2024-10-02 12:09] LABS: Glucose,Whole Blood 295 mg/dL (70-110)
[2024-10-02 13:21] VITALS: BMI 48.6
--- NOTE | 2024-10-02 13:31 | P.PN ---
Subjective Progress Note Date: 10/02/24 Principal diagnosis: Acute hypoxic and hypercapnic respiratory failure This is a 74-year-old male patient was brought into the hospital with increased shortness of breath. The patient resides in [facility] and the patient was experiencing his dyspnea along with fever and cough and the symptoms have been going on for past couple of days. The patient denies having any chest pain. He came into the emergency and the patient was found to have a fever with a temperature of 101.7. Hemodynamically stable. He was hyper tensive. He is currently on 4 L of oxygen by nasal cannula with a pulse ox of 94%. Blood work that was done emergency department showed a white cell count of 5.2 with a hemoglobin of 13.6 and a platelet count of 105. He had a component of an acute kidney injury. His K level was at 6.2 this morning with a sodium level of 133, BUN of 57 with a creatinine of 1.39 which came up to 1.47. LFTs were mildly disturbed with an AST of 76, ALT of 59 and alkaline phosphatase of 161. Troponins are negative. The patient was found to have an acute RSV infection. The viral screen was positive for history. Based on that, the patient was hospitalized and a pulmonary consultation was requested. Nephrology consultation was also requested regarding this acute kidney injury Chest x-ray was reviewed and it shows diminished lung volumes bilaterally, pulm vasculature was within normal limits. Some limited left midlung infiltrate versus atelectasis was noted. This patient has an extensive history and multiple medical problems and comorbidities. For that reason, the patient has been essentially maintained at [facility] [place]. The patient was treated back in January 2024 for a severe gangrenous right lower extremity and the patient underwent a above-knee amputation and subsequent antibiotic treatment for MRSA and Proteus. He is known to have COPD, severe peripheral vascular disease and he has already undergone a previous left above-knee amputation on the left. He has chronic A- fib, hypertension, severe ischemic cardiomyopathy with a previous echocardiogram showing an ejection fraction 40 to 45%, type 2 diabetes mellitus, chronic kidney disease, stage II, BPH and he also suffers from hypertension, BPH, obstructive sleep apnea, for which she has been maintained on CPAP therapy, chronic fatty liver disease and gout. Patient was seen today on 10/01/2024, patient was transferred to the ICU last night, he developed apparently obtundation, hypercapnia, and significantly elevated pCO2 with low pH, required placement on BiPAP 16/5/50% ABG showed a pO2 this morning of 103 pCO2 72 pH of 7.23, ABG prior showed a pO2 of 60 pCO2 of 93 pH of 7.12 prior to placement on BiPAP. Patient remains obtunded, arousable, but does not follow instructions. Remains on IV Solu-Medrol at 40 every 8, remains on antibiotics and is also on Eliquis, chest x-ray showed left lower lobe atelectasis/and or infiltrate. WBC count is 5.7 hemoglobin 13.8 electrolytes are normal potassium is down to 5.2 BUN is 64 creatinine 1.71 glucose 459 patient had positive RSV screening by PCR. Procalcitonin level is 0.22. Apparently the patient was obtunded last night, seen by the a team and he was transferred to the ICU at 630 this morning and placed on BiPAP 16/5/50% however I cut him down to 40%. IV fluid is 0.9 normal saline at 60 cc/h Patient was seen today on 10/02/2024, remains in the ICU, we were able to transition him to 4 L nasal cannula, he is on insulin at 5.1 units/h he is off BiPAP, 0.9 normal saline at 60 cc/h. Last night he was on BiPAP 16/5/40%. Remains on antibiotics, remains on Eliquis, significant improvement compared to yesterday. I felt yesterday he was close to be intubated and mechanically ventilated if he did not do well with BiPAP. Apparently the patient did well overnight and now he is on nasal cannula. WBC count is 6.27 hemoglobin is 12.9 electrolytes are normal BUN is 68 creatinine is coming down to 1.33, patient had positive RSV PCR on admission. Chest x-ray is showing improving infiltrate in the left lower lobe. Objective - Vital Signs Vital signs: Vital Signs Temp 98.5 F 10/02/24 08:00 Pulse 109 H 10/02/24 10:00 Resp 23 10/02/24 10:00 BP 149/97 10/02/24 10:00 Pulse Ox 93 L 10/02/24 10:00 FiO2 40 10/02/24 07:30 Intake & Output 10/01/24 10/02/24 10/02/24 18:59 06:59 18:59 Intake Total 1182.746 837.671 267.534 Output Total 400 525 125 Balance 782.746 312.671 142.534 Weight 112.9 kg 112.9 kg Intake: IV 960 720 240 Azithromycin 500 mg In 250 Sodium Chloride 0.9% 250 ml @ 250 mls/hr IVPB DAILY [facility] Rx#:[id number] Sodium Chloride 0.9% 1, 660 720 240 000 ml @ 60 mls/hr IV . [id number] [facility] Rx#:[id number] cefTRIAXone 2 gm In 50 Sodium Chloride 0.9% 50 ml @ 100 mls/hr IVPB Q24HR [facility] Rx#:[id number] Intake, IV Titration 222.746 117.671 27.534 Amount Dexmedetomidine/0.9% NaCl 36.45 (Pmx) 400 mcg In Empty Bag 1 bag @ 0.2 MCG/KG/HR 5.4 mls/hr IV .[id number] [facility] Rx#:[id number] Insulin Regular 100 unit 186.296 117.671 27.534 In Sodium Chloride 0.9% 100 ml @ Titrate IV .Q0M [facility] Rx#:[id number] Output: Urine 400 525 125 Other: Voiding Method External Catheter External Catheter External Catheter - Exam General Revealed 74-year-old white male obese awake, alert oriented x 3 on nasal cannula HEENT: Neck Short obese neck, no neck masses no thyromegaly, PERRLA, EOMI, nonicteric. Dry mucous membranes Lungs: Diminished breath sound bilaterally no crackles no rhonchi no wheezes Chest Wall: Symmetrical chest expansion no chest wall tenderness Heart: Distant S1-S2, no S3 gallop. 2/6 systolic murmur throughout the precordium Abdomen: Morbidly obese, soft, non-tender, bowel sounds active all four quadrants, no masses, no organomegaly. Extremities: Bilateral above-knee amputations Pulses: No pulse. Skin: No rashes. Neurologic: Alert oriented x 3, no gross focal deficit. - Labs CBC & Chem 7: 10/02/24 05:36 10/02/24 05:36 Labs: Abnormal Lab Results - Last 24 Hours (Table) 10/01/24 10/01/24 10/01/24 Range/Units 14:20 14:43 15:42 RBC (4.40-5.60) 10*6/uL Hgb (13.0-17.0) g/dL MCV (80.0-97.0) fL MCH (27.0-32.0) pg MCHC (32.0-37.0) g/dL Plt Count (140-440) 10*3/uL Immature Gran # (0.00-0.04) 10*3/uL Lymphocytes # (0.90-5.00) 10*3/uL Monocytes # (0.20-1.00) 10*3/uL Eosinophils # (0.04-0.35) 10*3/uL ABG pH 7.21 L (7.35-7.45) ABG pCO2 81 H* (35-45) mmHg ABG HCO3 32 H (21-25) mmol/L ABG Total CO2 34 H (19-24) mmol/L Hemoglobin 12.7 L (13.0-17.5) gm/dL BUN (9-20) mg/dL Creatinine (0.66-1.25) mg/dL Glucose (74-99) mg/dL POC Glucose (mg/dL) 118 H 188 H (70-110) mg/dL 10/01/24 10/01/24 10/01/24 Range/Units 16:51 17:52 19:28 RBC (4.40-5.60) 10*6/uL Hgb (13.0-17.0) g/dL MCV (80.0-97.0) fL MCH (27.0-32.0) pg MCHC (32.0-37.0) g/dL Plt Count (140-440) 10*3/uL Immature Gran # (0.00-0.04) 10*3/uL Lymphocytes # (0.90-5.00) 10*3/uL Monocytes # (0.20-1.00) 10*3/uL Eosinophils # (0.04-0.35) 10*3/uL ABG pH (7.35-7.45) ABG pCO2 (35-45) mmHg ABG HCO3 (21-25) mmol/L ABG Total CO2 (19-24) mmol/L Hemoglobin (13.0-17.5) gm/dL BUN (9-20) mg/dL Creatinine (0.66-1.25) mg/dL Glucose (74-99) mg/dL POC Glucose (mg/dL) 191 H 197 H 185 H (70-110) mg/dL 10/01/24 10/02/24 10/02/24 Range/Units 20:43 00:04 01:06 RBC (4.40-5.60) 10*6/uL Hgb (13.0-17.0) g/dL MCV (80.0-97.0) fL MCH (27.0-32.0) pg MCHC (32.0-37.0) g/dL Plt Count (140-440) 10*3/uL Immature Gran # (0.00-0.04) 10*3/uL Lymphocytes # (0.90-5.00) 10*3/uL Monocytes # (0.20-1.00) 10*3/uL Eosinophils # (0.04-0.35) 10*3/uL ABG pH (7.35-7.45) ABG pCO2 (35-45) mmHg ABG HCO3 (21-25) mmol/L ABG Total CO2 (19-24) mmol/L Hemoglobin (13.0-17.5) gm/dL BUN (9-20) mg/dL Creatinine (0.66-1.25) mg/dL Glucose (74-99) mg/dL POC Glucose (mg/dL) 152 H 112 H 182 H (70-110) mg/dL 10/02/24 10/02/24 10/02/24 Range/Units 01:59 03:12 04:01 RBC (4.40-5.60) 10*6/uL Hgb (13.0-17.0) g/dL MCV (80.0-97.0) fL MCH (27.0-32.0) pg MCHC (32.0-37.0) g/dL Plt Count (140-440) 10*3/uL Immature Gran # (0.00-0.04) 10*3/uL Lymphocytes # (0.90-5.00) 10*3/uL Monocytes # (0.20-1.00) 10*3/uL Eosinophils # (0.04-0.35) 10*3/uL ABG pH (7.35-7.45) ABG pCO2 (35-45) mmHg ABG HCO3 (21-25) mmol/L ABG Total CO2 (19-24) mmol/L Hemoglobin (13.0-17.5) gm/dL BUN (9-20) mg/dL Creatinine (0.66-1.25) mg/dL Glucose (74-99) mg/dL POC Glucose (mg/dL) 199 H 165 H 152 H (70-110) mg/dL 10/02/24 10/02/24 10/02/24 Range/Units 05:36 05:36 05:38 RBC 3.84 L (4.40-5.60) 10*6/uL Hgb 12.9 L (13.0-17.0) g/dL MCV 107.0 H (80.0-97.0) fL MCH 33.6 H (27.0-32.0) pg MCHC 31.4 L (32.0-37.0) g/dL Plt Count 86 L (140-440) 10*3/uL Immature Gran # 0.06 H (0.00-0.04) 10*3/uL Lymphocytes # 0.33 L (0.90-5.00) 10*3/uL Monocytes # 0.14 L (0.20-1.00) 10*3/uL Eosinophils # 0.00 L (0.04-0.35) 10*3/uL ABG pH (7.35-7.45) ABG pCO2 (35-45) mmHg ABG HCO3 (21-25) mmol/L ABG Total CO2 (19-24) mmol/L Hemoglobin (13.0-17.5) gm/dL BUN 68 H (9-20) mg/dL Creatinine 1.33 H (0.66-1.25) mg/dL Glucose 135 H (74-99) mg/dL POC Glucose (mg/dL) 119 H (70-110) mg/dL 10/02/24 10/02/24 10/02/24 Range/Units 07:06 09:02 10:05 RBC (4.40-5.60) 10*6/uL Hgb (13.0-17.0) g/dL MCV (80.0-97.0) fL MCH (27.0-32.0) pg MCHC (32.0-37.0) g/dL Plt Count (140-440) 10*3/uL Immature Gran # (0.00-0.04) 10*3/uL Lymphocytes # (0.90-5.00) 10*3/uL Monocytes # (0.20-1.00) 10*3/uL Eosinophils # (0.04-0.35) 10*3/uL ABG pH (7.35-7.45) ABG pCO2 (35-45) mmHg ABG HCO3 (21-25) mmol/L ABG Total CO2 (19-24) mmol/L Hemoglobin (13.0-17.5) gm/dL BUN (9-20) mg/dL Creatinine (0.66-1.25) mg/dL Glucose (74-99) mg/dL POC Glucose (mg/dL) 188 H 218 H 218 H (70-110) mg/dL 10/02/24 10/02/24 Range/Units 11:01 12:07 RBC (4.40-5.60) 10*6/uL Hgb (13.0-17.0) g/dL MCV (80.0-97.0) fL MCH (27.0-32.0) pg MCHC (32.0-37.0) g/dL Plt Count (140-440) 10*3/uL Immature Gran # (0.00-0.04) 10*3/uL Lymphocytes # (0.90-5.00) 10*3/uL Monocytes # (0.20-1.00) 10*3/uL Eosinophils # (0.04-0.35) 10*3/uL ABG pH (7.35-7.45) ABG pCO2 (35-45) mmHg ABG HCO3 (21-25) mmol/L ABG Total CO2 (19-24) mmol/L Hemoglobin (13.0-17.5) gm/dL BUN (9-20) mg/dL Creatinine (0.66-1.25) mg/dL Glucose (74-99) mg/dL POC Glucose (mg/dL) 275 H 295 H (70-110) mg/dL Microbiology - Last 24 Hours (Table) 09/30/24 08:43 Blood Culture - Preliminary Blood Assessment and Plan Assessment: Impression: Acute hypoxic and hypercapnic respiratory failure, multifactorial as noted below Acute RSV infection Acute on chronic stage II kidney disease Acute hyperkalemia, related to DEBORA inhibitors, Aldactone and acute kidney injury on top of chronic kidney disease, in addition to severe respiratory acidosis with low pH Acute exacerbation of COPD Obstructive sleep apnea Obesity hypoventilation syndrome Chronic A-fib CHF with reduced LV function with an EF of around 40 to 45% and severe pulm hypertension with estimated PA pressure of around 57 based on echocardiogram done on 01/23/2024 Severe PAD Diabetes mellitus type 2 Degenerative arthritis Gout Fatty liver disease Hypertension Bilateral below-knee amputations Acute metabolic encephalopathy mostly related to his hypercapnia improving with BiPAP. Recommendation: Continue O2 and titrate accordingly, use BiPAP as needed Continue bronchodilators Continue insulin drip Continue DuoNeb updrafts Change Solu-Medrol to prednisone 30 mg daily Continue to titrate oxygen accordingly on BiPAP. Continue droplet isolation Continue Eliquis Continue antibiotics empirically Continue GI and DVT prophylaxis patient is on pantoprazole is also on Eliquis will recommend transferring the patient out of the ICU to a better bed and selective. Prognosis remains guarded, will continue to follow. Hello Time with Patient: Less than 30
[2024-10-02 13:42] LABS: Glucose,Whole Blood 294 mg/dL (70-110)
[2024-10-02 14:17] LABS: Glucose,Whole Blood 342 mg/dL (70-110)
[2024-10-02 15:16] LABS: Glucose,Whole Blood 280 mg/dL (70-110)
[2024-10-02 15:57] LABS: Glucose,Whole Blood 233 mg/dL (70-110)
[2024-10-02 17:54] LABS: Glucose,Whole Blood 137 mg/dL (70-110)
[2024-10-02 18:24] LABS: Glucose,Whole Blood 128 mg/dL (70-110)
[2024-10-02 19:01] LABS: Glucose,Whole Blood 127 mg/dL (70-110)
[2024-10-02 20:07] LABS: Glucose,Whole Blood 196 mg/dL (70-110)
[2024-10-02 21:07] LABS: Glucose,Whole Blood 168 mg/dL (70-110)
[2024-10-02 22:18] LABS: Glucose,Whole Blood 188 mg/dL (70-110)
[2024-10-02 23:26] LABS: Glucose,Whole Blood 150 mg/dL (70-110)
[2024-10-03 00:15] LABS: Glucose,Whole Blood 136 mg/dL (70-110)
[2024-10-03 02:01] LABS: Glucose,Whole Blood 175 mg/dL (70-110)
[2024-10-03 03:02] LABS: Glucose,Whole Blood 210 mg/dL (70-110)
[2024-10-03 04:08] LABS: Glucose,Whole Blood 231 mg/dL (70-110)
[2024-10-03] MEDS: IPRATROPIUM-ALBUTEROL 3 ML NEB INHALATION PRN (04:10)
[2024-10-03 05:05] LABS: Glucose,Whole Blood 224 mg/dL (70-110)
[2024-10-03 05:09] LABS: Basophils # (A) 0.01 10*3/uL (0.00-0.10); Basophils % (A) 0.2 %; HGB 11.7 g/dL (13.0-17.0); Lymphocytes # (A) 0.25 10*3/uL (0.90-5.00); Lymphocytes % (A) 5.9 %; MCH 33.2 pg (27.0-32.0); MCHC 30.8 g/dL (32.0-37.0); Mean Platelet Volume 10.7 fL (9.5-12.2); Monocytes # (A) 0.06 10*3/uL (0.20-1.00); Monocytes % (A) 1.4 %; Neutrophils # (A) 3.92 10*3/uL (1.80-7.70); Neutrophils % (A) 91.8 %; RBC 3.52 10*6/uL (4.40-5.60); RDW 14.7 % (11.5-14.5); WBC 4.27 10*3/uL (4.50-10.00)
[2024-10-03 05:25] LABS: African American GFR (CKD) 56 (>60 ml/min/1.73 sqM); Anion Gap 7 mmol/L; Blood Urea Nitrogen 75 mg/dL (9-20); Calcium 8.5 mg/dL (8.4-10.2); Carbon Dioxide 28 mmol/L (22-30); Chloride 105 mmol/L (98-107); Glucose 223 mg/dL (74-99); Non-African American GFR(CKD) 48 (>60 ml/min/1.73 sqM); Potassium 5.4 mmol/L (3.5-5.1); Sodium 140 mmol/L (137-145)
[2024-10-03 06:04] LABS: Platelet Count 74 10*3/uL (140-440)
[2024-10-03 06:11] LABS: Glucose,Whole Blood 203 mg/dL (70-110)
[2024-10-03] MEDS: SODIUM ZIRCONIUM CYCLOSILICATE 10 GM PACKET PO ONE ×3 (06:33→23:23)
--- NOTE | 2024-10-03 06:48 | XR ---
EXAMINATION TYPE: XR chest 1V portable DATE OF EXAM: 10/03/2024 CLINICAL INDICATION: Male, 74 years old with history of BIPAP dependent respiratory failure, progress study. TECHNIQUE: Single AP portable upright view of the chest is obtained. COMPARISON: Chest x-ray from one day earlier and older studies. FINDINGS: Persistent left lower lung increased opacity. Right lung remains clear. Cardiomegaly is de monstrated. Osseous structures are intact. IMPRESSION: Persistent cardiomegaly and left lower lobe acute infiltrate and/or atelectasis. No signi ficant change from one day earlier. [facility], , 10/03/2024 6:46 AM
[2024-10-03 07:03] LABS: Glucose,Whole Blood 189 mg/dL (70-110)
[2024-10-03 08:18] LABS: Glucose,Whole Blood 273 mg/dL (70-110)
--- NOTE | 2024-10-03 08:56 | P.PN ---
Subjective patient is a 74-year-old gentleman with past medical history significant for atrial fibrillation, CAD, congestive heart failure, hypertension, hype rlipidemia, presents the ER after being sent in from [facility] for shortness of breath. Patient stated that he has been feeling sick for the last couple of days, complaining of shortness of breath at rest as on exertion, patient also complaining of cough. Patient also noted that he was having fever. There was no complaint of chills. Patient denied any chest pain. There was no complaint of orthopnea or PND there was no complaint of nausea, vomiting or abdominal pain. Because of this shortness of breath and fever, patient was sent to the ER Initial lab work done in the ER showed WBC 5.2, hemoglobin 13.6, platelet count 105, sodium 133, potassium 6.2, BUN 57, creatinine 1.39 glucose 349, lactate 1.4, AST 76, ALT 59, troponin 0.027 Influenza A not detected Influenza B not detected RSV detected COVID-19 not detected EKG done in the ER showed heart rate of 82, no ST segment elevation or d epression seen, no T-wave inversions seen. Chest x-ray done in the ER showed left lower lobe infiltrate Patient admitted to internal medicine service 10/01. Patient seen and examined. Patient had a rapid response called this morning for respiratory distress and confusion. Patient had to be placed on BiPAP and was transferred to ICU. Patient started on insulin drip. 10/02 Patient is improving. He used the BiPAP overnight and currently on 3 to 4 L oxygen via nasal cannula. He is mildly tachycardic and afebrile His up in bed awake alert and he answers questions present quietly slightly tachypneic not using accessory muscles has good appetite eating his breakfast without difficulty. He denies chest pain. Hemoglobin is 12.9 platelet count is 86. Creatinine down to 1.7 down to 1.3. ESR is elevated at 39 procalcitonin is negative at 0.22 COVID and influenza test were negative while RSV is positive. Patient currently kept on normal saline at 60 mL/h, Eliquis 2.5 mg, Zithromax hospitalist on, insulin and IV Solu-Medrol Patient might be documented to medical floor at [facility] 10/03 Patient remains in the ICU up in bed but looks weak. Still getting oxygen via nasal cannula currently on 6 L/min. Also patient was using BiPAP overnight as he thinks. He has mild right upper chest pain. He still complaining from cough phlegm but no tachypnea at rest. He is getting normal sinus 60 mL/h and insulin drip Anion gap closed at 7 therefore we are going to switch him to his home dose of Lantus 30 units and Humalog 10 units with meal Review of systems CONSTITUTIONAL: No fever, no malaise, no fatigue. GASTROINTESTINAL: No diarrhea, no nausea, no vomiting, no abdominal pain. Normoactive bowel sounds. NEUROLOGICAL: No headaches, no weakness, no numbness. HEMATOLOGICAL: Denies any bleeding or petechiae. GENITOURINARY: Denies any burning micturition, frequency, or urgency. MUSCULOSKELETAL/RHEUMATOLOGICAL: Denies any joint pain, swelling, or any muscle pain. Active Medications Generic Name Dose Route Start Last Admin Trade Name Freq PRN Reason Stop Dose Admin Hydrocodone Bitart/Acetaminophen 1 each 09/30/24 09:39 10/01/24 00:59 Hydrocodone/Apap 10-325mg 1 Each Tab PO 1 each Q6HR PRN Administration Pain Albuterol/Ipratropium 3 ml 09/30/24 07:52 10/03/24 04:10 Ipratropium-Albuterol 3 Ml Neb INHALATION 3 ml RT-Q4H PRN Administration shortness of breath Apixaban 2.5 mg 09/30/24 20:00 10/03/24 07:51 Apixaban 2.5 Mg Tablet PO 2.5 mg BID@0800,2000 JULIEN Administration Protocol Dextrose/Water 25 ml 10/01/24 02:11 Dextrose 50% Syringe 50 Ml IVP PER PROTOCOL PRN Hypoglycemia Protocol Dextrose/Water 50 ml 10/01/24 02:11 Dextrose 50% Syringe 50 Ml IVP PER PROTOCOL PRN Hypoglycemia Protocol Gabapentin 100 mg 09/30/24 14:00 10/03/24 05:05 Gabapentin 100 Mg Cap PO 100 mg TID@0600,1400,2200 JULIEN Administration Sodium Chloride 1,000 mls @ 60 mls/hr 09/30/24 10:45 10/03/24 06:02 Saline 0.9% IV Not Given .[id number] JULIEN Insulin Human Regular 100 unit 100 mls @ 0 mls/hr 10/01/24 02:15 10/03/24 08:24 / Sodium Chloride IV 8.25 units/hr .Q0M JULIEN 8.25 mls/hr Titration Protocol Titrate Ceftriaxone Sodium 2 gm/ 50 mls @ 100 mls/hr 10/01/24 09:00 10/03/24 07:51 Sodium Chloride IVPB 10/04/24 09:29 100 mls/hr Q24HR JULIEN Administration Protocol Insulin Glargine 30 unit 10/03/24 09:00 Insulin Glargine (Lantus) 100 Unit/Ml Syr SQ DAILY@0700 [facility] Insulin Human Lispro 10 unit 10/03/24 12:30 Insulin Lispro (Humalog) 100 Unit/Ml 10 Ml Vl SQ AC-TID JULIEN Isosorbide Mononitrate 30 mg 10/01/24 08:00 10/03/24 07:51 Isosorbide Mononitrate Er 30 Mg Tab.Er.24h PO 30 mg DAILY@0800 JULIEN Administration Magnesium Oxide 400 mg 09/30/24 21:00 10/02/24 20:09 Magnesium Oxide 400 Mg Tab PO 400 mg HS@2100 JULIEN Administration Methylprednisolone Sodium Succinate 40 mg 10/01/24 16:00 10/03/24 07:51 Methylprednisolone Sod Succi 40 Mg/Ml 1 Ml Vial IV 40 mg Q8HR JULIEN Administration Metoprolol Tartrate 50 mg 09/30/24 17:00 10/03/24 07:51 Metoprolol Tartrate 50 Mg Tab PO 50 mg BID@0800,1700 JUILEN Administration Miscellaneous Information 1 each 09/30/24 07:52 Pneumonia Protocol Utilized 1 Each Misc PO ONCE PRN Per Protocol Miscellaneous Information 1 each 10/01/24 06:37 Potassium Replacement Protocol 1 Each Misc MISCELLANE DAILY PRN Per Protocol Miscellaneous Information 1 each 10/01/24 06:37 Magnesium Replacement Protocol 1 Each Misc MISCELLANE DAILY PRN Per Protocol Protocol Pantoprazole Sodium 40 mg 10/01/24 09:00 10/03/24 07:51 Pantoprazole 40 Mg/10 Ml Vial IVP 40 mg DAILY JULIEN Administration Tamsulosin HCl 0.4 mg 09/30/24 21:00 10/02/24 20:09 Tamsulosin 0.4 Mg Cap.Er.24h PO 0.4 mg HS@2100 JULIEN Administration Objective - Vital Signs Vital signs: Vital Signs Temp 97.8 F 10/03/24 07:57 Pulse 80 10/03/24 07:57 Resp 24 10/03/24 07:57 BP 122/74 10/03/24 07:57 Pulse Ox 95 10/03/24 07:57 FiO2 40 10/03/24 04:00 Intake & Output 10/02/24 10/03/24 10/03/24 18:59 06:59 18:59 Intake Total 829.435 110.431 16.071 Output Total 350 400 Balance 479.435 -289.569 16.071 Weight 112.9 kg 113.6 kg Intake: IV 730 60 Azithromycin 500 mg In 250 Sodium Chloride 0.9% 250 ml @ 250 mls/hr IVPB DAILY JULIEN Rx#:[id number] Sodium Chloride 0.9% 1, 480 60 000 ml @ 60 mls/hr IV . [id number] JULIEN Rx#:[id number] Intake, IV Titration 99.435 50.431 16.071 Amount Insulin Regular 100 unit 99.435 50.431 16.071 In Sodium Chloride 0.9% 100 ml @ Titrate IV .Q0M JULIEN Rx#:[id number] Output: Urine 350 400 Other: Voiding Method External Catheter External Catheter External Catheter - Exam GENERAL: The patient is alert and oriented x3, not in any acute distress. Well developed, well nourished. HEENT: Pupils are round and equally reacting to light. EOMI. No scleral icterus. No conjunctival pallor. Normocephalic, atraumatic. No pharyngeal erythema. No thyromegaly. CARDIOVASCULAR: S1 and S2 present. No murmurs, rubs, or gallops. -PULMONARY: Chest is clear to auscultation, scattered wheezing , mild bilateral crackles. ABDOMEN: Soft, nontender, nondistended, normoactive bowel sounds. No palpable organomegaly. MUSCULOSKELETAL: No joint swelling or deformity. EXTREMITIES: No cyanosis, clubbing, or pedal edema. NEUROLOGICAL: Gross neurological examination did not reveal any focal deficits. SKIN: No rashes. no petechiae. - Labs CBC & Chem 7: 10/03/24 03:59 10/03/24 03:59 Labs: Abnormal Lab Results - Last 24 Hours (Table) 10/02/24 10/02/24 10/02/24 Range/Units 09:02 10:05 11:01 WBC (4.50-10.00) 10*3/uL RBC (4.40-5.60) 10*6/uL Hgb (13.0-17.0) g/dL Hct (39.6-50.0) % MCV (80.0-97.0) fL MCH (27.0-32.0) pg MCHC (32.0-37.0) g/dL Plt Count (140-440) 10*3/uL Lymphocytes # (0.90-5.00) 10*3/uL Monocytes # (0.20-1.00) 10*3/uL Eosinophils # (0.04-0.35) 10*3/uL Potassium (3.5-5.1) mmol/L BUN (9-20) mg/dL Creatinine (0.66-1.25) mg/dL Glucose (74-99) mg/dL POC Glucose (mg/dL) 218 H 218 H 275 H (70-110) mg/dL 10/02/24 10/02/24 10/02/24 Range/Units 12:07 13:40 14:16 WBC (4.50-10.00) 10*3/uL RBC (4.40-5.60) 10*6/uL Hgb (13.0-17.0) g/dL Hct (39.6-50.0) % MCV (80.0-97.0) fL MCH (27.0-32.0) pg MCHC (32.0-37.0) g/dL Plt Count (140-440) 10*3/uL Lymphocytes # (0.90-5.00) 10*3/uL Monocytes # (0.20-1.00) 10*3/uL Eosinophils # (0.04-0.35) 10*3/uL Potassium (3.5-5.1) mmol/L BUN (9-20) mg/dL Creatinine (0.66-1.25) mg/dL Glucose (74-99) mg/dL POC Glucose (mg/dL) 295 H 294 H 342 H (70-110) mg/dL 10/02/24 10/02/24 10/02/24 Range/Units 15:04 15:55 17:52 WBC (4.50-10.00) 10*3/uL RBC (4.40-5.60) 10*6/uL Hgb (13.0-17.0) g/dL Hct (39.6-50.0) % MCV (80.0-97.0) fL MCH (27.0-32.0) pg MCHC (32.0-37.0) g/dL Plt Count (140-440) 10*3/uL Lymphocytes # (0.90-5.00) 10*3/uL Monocytes # (0.20-1.00) 10*3/uL Eosinophils # (0.04-0.35) 10*3/uL Potassium (3.5-5.1) mmol/L BUN (9-20) mg/dL Creatinine (0.66-1.25) mg/dL Glucose (74-99) mg/dL POC Glucose (mg/dL) 280 H 233 H 137 H (70-110) mg/dL 10/02/24 10/02/24 10/02/24 Range/Units 18:23 18:59 20:06 WBC (4.50-10.00) 10*3/uL RBC (4.40-5.60) 10*6/uL Hgb (13.0-17.0) g/dL Hct (39.6-50.0) % MCV (80.0-97.0) fL MCH (27.0-32.0) pg MCHC (32.0-37.0) g/dL Plt Count (140-440) 10*3/uL Lymphocytes # (0.90-5.00) 10*3/uL Monocytes # (0.20-1.00) 10*3/uL Eosinophils # (0.04-0.35) 10*3/uL Potassium (3.5-5.1) mmol/L BUN (9-20) mg/dL Creatinine (0.66-1.25) mg/dL Glucose (74-99) mg/dL POC Glucose (mg/dL) 128 H 127 H 196 H (70-110) mg/dL 10/02/24 10/02/24 10/02/24 Range/Units 21:05 22:17 23:24 WBC (4.50-10.00) 10*3/uL RBC (4.40-5.60) 10*6/uL Hgb (13.0-17.0) g/dL Hct (39.6-50.0) % MCV (80.0-97.0) fL MCH (27.0-32.0) pg MCHC (32.0-37.0) g/dL Plt Count (140-440) 10*3/uL Lymphocytes # (0.90-5.00) 10*3/uL Monocytes # (0.20-1.00) 10*3/uL Eosinophils # (0.04-0.35) 10*3/uL Potassium (3.5-5.1) mmol/L BUN (9-20) mg/dL Creatinine (0.66-1.25) mg/dL Glucose (74-99) mg/dL POC Glucose (mg/dL) 168 H 188 H 150 H (70-110) mg/dL 10/03/24 10/03/24 10/03/24 Range/Units 00:14 02:00 03:01 WBC (4.50-10.00) 10*3/uL RBC (4.40-5.60) 10*6/uL Hgb (13.0-17.0) g/dL Hct (39.6-50.0) % MCV (80.0-97.0) fL MCH (27.0-32.0) pg MCHC (32.0-37.0) g/dL Plt Count (140-440) 10*3/uL Lymphocytes # (0.90-5.00) 10*3/uL Monocytes # (0.20-1.00) 10*3/uL Eosinophils # (0.04-0.35) 10*3/uL Potassium (3.5-5.1) mmol/L BUN (9-20) mg/dL Creatinine (0.66-1.25) mg/dL Glucose (74-99) mg/dL POC Glucose (mg/dL) 136 H 175 H 210 H (70-110) mg/dL 10/03/24 10/03/24 10/03/24 Range/Units 03:59 03:59 04:06 WBC 4.27 L (4.50-10.00) 10*3/uL RBC 3.52 L (4.40-5.60) 10*6/uL Hgb 11.7 L (13.0-17.0) g/dL Hct 38.0 L (39.6-50.0) % MCV 108.0 H (80.0-97.0) fL MCH 33.2 H (27.0-32.0) pg MCHC 30.8 L (32.0-37.0) g/dL Plt Count 74 L (140-440) 10*3/uL Lymphocytes # 0.25 L (0.90-5.00) 10*3/uL Monocytes # 0.06 L (0.20-1.00) 10*3/uL Eosinophils # 0.00 L (0.04-0.35) 10*3/uL Potassium 5.4 H (3.5-5.1) mmol/L BUN 75 H (9-20) mg/dL Creatinine 1.44 H (0.66-1.25) mg/dL Glucose 223 H (74-99) mg/dL POC Glucose (mg/dL) 231 H (70-110) mg/dL 10/03/24 10/03/24 10/03/24 Range/Units 05:03 06:10 07:01 WBC (4.50-10.00) 10*3/uL RBC (4.40-5.60) 10*6/uL Hgb (13.0-17.0) g/dL Hct (39.6-50.0) % MCV (80.0-97.0) fL MCH (27.0-32.0) pg MCHC (32.0-37.0) g/dL Plt Count (140-440) 10*3/uL Lymphocytes # (0.90-5.00) 10*3/uL Monocytes # (0.20-1.00) 10*3/uL Eosinophils # (0.04-0.35) 10*3/uL Potassium (3.5-5.1) mmol/L BUN (9-20) mg/dL Creatinine (0.66-1.25) mg/dL Glucose (74-99) mg/dL POC Glucose (mg/dL) 224 H 203 H 189 H (70-110) mg/dL 10/03/24 Range/Units 08:16 WBC (4.50-10.00) 10*3/uL RBC (4.40-5.60) 10*6/uL Hgb (13.0-17.0) g/dL Hct (39.6-50.0) % MCV (80.0-97.0) fL MCH (27.0-32.0) pg MCHC (32.0-37.0) g/dL Plt Count (140-440) 10*3/uL Lymphocytes # (0.90-5.00) 10*3/uL Monocytes # (0.20-1.00) 10*3/uL Eosinophils # (0.04-0.35) 10*3/uL Potassium (3.5-5.1) mmol/L BUN (9-20) mg/dL Creatinine (0.66-1.25) mg/dL Glucose (74-99) mg/dL POC Glucose (mg/dL) 273 H (70-110) mg/dL Microbiology - Last 24 Hours (Table) 09/30/24 08:43 Blood Culture - Preliminary Blood Assessment and Plan Assessment: Acute hypoxic respiratory failure RSV infection Acute COPD exacerbation Pneumonia Acute on chronic kidney injury stage II Chronic atrial fibrillation on Eliquis CHF with ejection fraction 40 to 45%, chronic Hypertension Hyperlipidemia Diabetes mellitus Obesity Severe peripheral artery disease History of gout Fatty liver History of bilateral BKA Plan: Continue with antibiotic Zithromax ceftriaxone as per pulmonary team Continue with Eliquis Continue with insulin and monitor glucose normal. Continue with the steroid, Solu-Medrol Continue with Normal Saline per waste handling technician Monitor creatinine and hemoglobin Discontinue insulin drip and start Lantus 30 units and Humalog 10 units with meal and insulin sliding scale Several consultants on the case including ICU critical care pulmonary team, waste handling technician DVT prophylaxis: Eliquis GI prophylaxis: Pepcid Prognosis is guarded
[2024-10-03] MEDS: INSULIN GLARGINE (LANTUS) 100 UNIT/ML SYR SQ SCH (09:04)
--- NOTE | 2024-10-03 10:24 | P.PN ---
Subjective Patient is seen in follow-up for acute kidney injury and hyperkalemia. Receiving IV fluids. Currently on nasal cannula. Wore BiPAP overnight. Renal function stable. Vital signs are stable. General: No acute distress. HEENT: On nasal cannula. LUNGS: No audible rhonchi or wheezes. HEART: Rate and Rhythm are regular. ABDOMEN: Obese, soft. EXTREMITITES: Bilateral [id number] amputations. Objective - Vital Signs Vital signs: Vital Signs Temp 97.8 F 10/03/24 07:57 Pulse 86 10/03/24 10:00 Resp 22 10/03/24 10:00 BP 130/81 10/03/24 10:00 Pulse Ox 90 L 10/03/24 10:00 FiO2 40 10/03/24 04:00 Intake & Output 10/02/24 10/03/24 10/03/24 18:59 06:59 18:59 Intake Total 829.435 110.431 16.071 Output Total 350 400 Balance 479.435 -289.569 16.071 Weight 112.9 kg 113.6 kg Intake: IV 730 60 Azithromycin 500 mg In 250 Sodium Chloride 0.9% 250 ml @ 250 mls/hr IVPB DAILY JULIEN Rx#:[id number] Sodium Chloride 0.9% 1, 480 60 000 ml @ 60 mls/hr IV . [id number] JULIEN Rx#:[id number] Intake, IV Titration 99.435 50.431 16.071 Amount Insulin Regular 100 unit 99.435 50.431 16.071 In Sodium Chloride 0.9% 100 ml @ Titrate IV .Q0M JULIEN Rx#:[id number] Output: Urine 350 400 Other: Voiding Method External Catheter External Catheter External Catheter - Labs CBC & Chem 7: 10/03/24 03:59 10/03/24 03:59 Labs: Abnormal Lab Results - Last 24 Hours (Table) 10/02/24 10/02/24 10/02/24 Range/Units 11:01 12:07 13:40 WBC (4.50-10.00) 10*3/uL RBC (4.40-5.60) 10*6/uL Hgb (13.0-17.0) g/dL Hct (39.6-50.0) % MCV (80.0-97.0) fL MCH (27.0-32.0) pg MCHC (32.0-37.0) g/dL Plt Count (140-440) 10*3/uL Lymphocytes # (0.90-5.00) 10*3/uL Monocytes # (0.20-1.00) 10*3/uL Eosinophils # (0.04-0.35) 10*3/uL Potassium (3.5-5.1) mmol/L BUN (9-20) mg/dL Creatinine (0.66-1.25) mg/dL Glucose (74-99) mg/dL POC Glucose (mg/dL) 275 H 295 H 294 H (70-110) mg/dL 10/02/24 10/02/24 10/02/24 Range/Units 14:16 15:04 15:55 WBC (4.50-10.00) 10*3/uL RBC (4.40-5.60) 10*6/uL Hgb (13.0-17.0) g/dL Hct (39.6-50.0) % MCV (80.0-97.0) fL MCH (27.0-32.0) pg MCHC (32.0-37.0) g/dL Plt Count (140-440) 10*3/uL Lymphocytes # (0.90-5.00) 10*3/uL Monocytes # (0.20-1.00) 10*3/uL Eosinophils # (0.04-0.35) 10*3/uL Potassium (3.5-5.1) mmol/L BUN (9-20) mg/dL Creatinine (0.66-1.25) mg/dL Glucose (74-99) mg/dL POC Glucose (mg/dL) 342 H 280 H 233 H (70-110) mg/dL 10/02/24 10/02/24 10/02/24 Range/Units 17:52 18:23 18:59 WBC (4.50-10.00) 10*3/uL RBC (4.40-5.60) 10*6/uL Hgb (13.0-17.0) g/dL Hct (39.6-50.0) % MCV (80.0-97.0) fL MCH (27.0-32.0) pg MCHC (32.0-37.0) g/dL Plt Count (140-440) 10*3/uL Lymphocytes # (0.90-5.00) 10*3/uL Monocytes # (0.20-1.00) 10*3/uL Eosinophils # (0.04-0.35) 10*3/uL Potassium (3.5-5.1) mmol/L BUN (9-20) mg/dL Creatinine (0.66-1.25) mg/dL Glucose (74-99) mg/dL POC Glucose (mg/dL) 137 H 128 H 127 H (70-110) mg/dL 10/02/24 10/02/24 10/02/24 Range/Units 20:06 21:05 22:17 WBC (4.50-10.00) 10*3/uL RBC (4.40-5.60) 10*6/uL Hgb (13.0-17.0) g/dL Hct (39.6-50.0) % MCV (80.0-97.0) fL MCH (27.0-32.0) pg MCHC (32.0-37.0) g/dL Plt Count (140-440) 10*3/uL Lymphocytes # (0.90-5.00) 10*3/uL Monocytes # (0.20-1.00) 10*3/uL Eosinophils # (0.04-0.35) 10*3/uL Potassium (3.5-5.1) mmol/L BUN (9-20) mg/dL Creatinine (0.66-1.25) mg/dL Glucose (74-99) mg/dL POC Glucose (mg/dL) 196 H 168 H 188 H (70-110) mg/dL 10/02/24 10/03/24 10/03/24 Range/Units 23:24 00:14 02:00 WBC (4.50-10.00) 10*3/uL RBC (4.40-5.60) 10*6/uL Hgb (13.0-17.0) g/dL Hct (39.6-50.0) % MCV (80.0-97.0) fL MCH (27.0-32.0) pg MCHC (32.0-37.0) g/dL Plt Count (140-440) 10*3/uL Lymphocytes # (0.90-5.00) 10*3/uL Monocytes # (0.20-1.00) 10*3/uL Eosinophils # (0.04-0.35) 10*3/uL Potassium (3.5-5.1) mmol/L BUN (9-20) mg/dL Creatinine (0.66-1.25) mg/dL Glucose (74-99) mg/dL POC Glucose (mg/dL) 150 H 136 H 175 H (70-110) mg/dL 10/03/24 10/03/24 10/03/24 Range/Units 03:01 03:59 03:59 WBC 4.27 L (4.50-10.00) 10*3/uL RBC 3.52 L (4.40-5.60) 10*6/uL Hgb 11.7 L (13.0-17.0) g/dL Hct 38.0 L (39.6-50.0) % MCV 108.0 H (80.0-97.0) fL MCH 33.2 H (27.0-32.0) pg MCHC 30.8 L (32.0-37.0) g/dL Plt Count 74 L (140-440) 10*3/uL Lymphocytes # 0.25 L (0.90-5.00) 10*3/uL Monocytes # 0.06 L (0.20-1.00) 10*3/uL Eosinophils # 0.00 L (0.04-0.35) 10*3/uL Potassium 5.4 H (3.5-5.1) mmol/L BUN 75 H (9-20) mg/dL Creatinine 1.44 H (0.66-1.25) mg/dL Glucose 223 H (74-99) mg/dL POC Glucose (mg/dL) 210 H (70-110) mg/dL 10/03/24 10/03/24 10/03/24 Range/Units 04:06 05:03 06:10 WBC (4.50-10.00) 10*3/uL RBC (4.40-5.60) 10*6/uL Hgb (13.0-17.0) g/dL Hct (39.6-50.0) % MCV (80.0-97.0) fL MCH (27.0-32.0) pg MCHC (32.0-37.0) g/dL Plt Count (140-440) 10*3/uL Lymphocytes # (0.90-5.00) 10*3/uL Monocytes # (0.20-1.00) 10*3/uL Eosinophils # (0.04-0.35) 10*3/uL Potassium (3.5-5.1) mmol/L BUN (9-20) mg/dL Creatinine (0.66-1.25) mg/dL Glucose (74-99) mg/dL POC Glucose (mg/dL) 231 H 224 H 203 H (70-110) mg/dL 10/03/24 10/03/24 Range/Units 07:01 08:16 WBC (4.50-10.00) 10*3/uL RBC (4.40-5.60) 10*6/uL Hgb (13.0-17.0) g/dL Hct (39.6-50.0) % MCV (80.0-97.0) fL MCH (27.0-32.0) pg MCHC (32.0-37.0) g/dL Plt Count (140-440) 10*3/uL Lymphocytes # (0.90-5.00) 10*3/uL Monocytes # (0.20-1.00) 10*3/uL Eosinophils # (0.04-0.35) 10*3/uL Potassium (3.5-5.1) mmol/L BUN (9-20) mg/dL Creatinine (0.66-1.25) mg/dL Glucose (74-99) mg/dL POC Glucose (mg/dL) 189 H 273 H (70-110) mg/dL Microbiology - Last 24 Hours (Table) 09/30/24 08:43 Blood Culture - Preliminary Blood Assessment and Plan Plan: Assessment: 1. Acute kidney injury secondary to ATN secondary to severe sepsis. Creatinine peaked at 1.71 this admission and is 1.44 today. Baseline creatinine near 1. Kidney ultrasound was nondiagnostic. 2. Acute RSV pneumonia. 3. Hyperkalemia secondary to acute kidney injury, Aldactone and lisinopril. Also component of hyperglycemia. Improved. 4. Diabetes mellitus. On insulin drip. 5. Status post bilateral [id number] amputations. 6. Acute hypoxic and hypercapnic respiratory failure. Currently on nasal cannula. Plan: Maintain normal saline. Renal diet. Continue to hold lisinopril and Aldactone. Blood glucose control. Patient received Lokelma this morning. Repeat potassium level this afternoon.
[2024-10-03 11:46] LABS: Glucose,Whole Blood 312 mg/dL (70-110)
[2024-10-03] MEDS: INSULIN LISPRO (HumaLOG) 100 UNIT/ML 10 mL VL SQ SCH ×2 (11:49→20:43)
--- NOTE | 2024-10-03 14:22 | P.PN ---
Subjective Progress Note Date: 10/03/24 Principal diagnosis: Acute hypoxic and hypercapnic respiratory failure This is a 74-year-old male patient was brought into the hospital with increased shortness of breath. The patient resides in [facility] and the patient was experiencing his dyspnea along with fever and cough and the symptoms have been going on for past couple of days. The patient denies having any chest pain. He came into the emergency and the patient was found to have a fever with a temperature of 101.7. Hemodynamically stable. He was hyper tensive. He is currently on 4 L of oxygen by nasal cannula with a pulse ox of 94%. Blood work that was done emergency department showed a white cell count of 5.2 with a hemoglobin of 13.6 and a platelet count of 105. He had a component of an acute kidney injury. His K level was at 6.2 this morning with a sodium level of 133, BUN of 57 with a creatinine of 1.39 which came up to 1.47. LFTs were mildly disturbed with an AST of 76, ALT of 59 and alkaline phosphatase of 161. Troponins are negative. The patient was found to have an acute RSV infection. The viral screen was positive for history. Based on that, the patient was hospitalized and a pulmonary consultation was requested. Nephrology consultation was also requested regarding this acute kidney injury Chest x-ray was reviewed and it shows diminished lung volumes bilaterally, pulm vasculature was within normal limits. Some limited left midlung infiltrate versus atelectasis was noted. This patient has an extensive history and multiple medical problems and comorbidities. For that reason, the patient has been essentially maintained at [facility]. The patient was treated back in January 2024 for a severe gangrenous right lower extremity and the patient underwent a above-knee amputation and subsequent antibiotic treatment for MRSA and Proteus. He is known to have COPD, severe peripheral vascular disease and he has already undergone a previous left above-knee amputation on the left. He has chronic A- fib, hypertension, severe ischemic cardiomyopathy with a previous echocardiogram showing an ejection fraction 40 to 45%, type 2 diabetes mellitus, chronic kidney disease, stage II, BPH and he also suffers from hypertension, BPH, obstructive sleep apnea, for which she has been maintained on CPAP therapy, chronic fatty liver disease and gout. Patient was seen today on 10/01/2024, patient was transferred to the ICU last night, he developed apparently obtundation, hypercapnia, and significantly elevated pCO2 with low pH, required placement on BiPAP 16/5/50% ABG showed a pO2 this morning of 103 pCO2 72 pH of 7.23, ABG prior showed a pO2 of 60 pCO2 of 93 pH of 7.12 prior to placement on BiPAP. Patient remains obtunded, arousable, but does not follow instructions. Remains on IV Solu-Medrol at 40 every 8, remains on antibiotics and is also on Eliquis, chest x-ray showed left lower lobe atelectasis/and or infiltrate. WBC count is 5.7 hemoglobin 13.8 electrolytes are normal potassium is down to 5.2 BUN is 64 creatinine 1.71 glucose 459 patient had positive RSV screening by PCR. Procalcitonin level is 0.22. Apparently the patient was obtunded last night, seen by the a team and he was transferred to the ICU at 630 this morning and placed on BiPAP 16/5/50% however I cut him down to 40%. IV fluid is 0.9 normal saline at 60 cc/h Patient was seen today on 10/02/2024, remains in the ICU, we were able to transition him to 4 L nasal cannula, he is on insulin at 5.1 units/h he is off BiPAP, 0.9 normal saline at 60 cc/h. Last night he was on BiPAP 16/5/40%. Remains on antibiotics, remains on Eliquis, significant improvement compared to yesterday. I felt yesterday he was close to be intubated and mechanically ventilated if he did not do well with BiPAP. Apparently the patient did well overnight and now he is on nasal cannula. WBC count is 6.27 hemoglobin is 12.9 electrolytes are normal BUN is 68 creatinine is coming down to 1.33, patient had positive RSV PCR on admission. Chest x-ray is showing improving infiltrate in the left lower lobe. Seen today on 10/03/2024, remains in the ICU, he had to go on BiPAP yesterday 16/5/40%, this morning the patient is more awake, alert and appropriate, he was transitioned to 6 L nasal cannula. Patient seems to be comfortable, not in any distress. CBC is relatively normal, basic metabolic profile is normal except for slightly elevated potassium of 5.4, BUN is 75 creatinine is 1.44 close to his baseline. Chest x-ray today continues show left basilar atelectasis and possibly a small pleural effusion. Objective - Vital Signs Vital signs: Vital Signs Temp 98 F 10/03/24 11:49 Pulse 96 10/03/24 11:49 Resp 22 10/03/24 11:49 BP 135/90 10/03/24 11:49 Pulse Ox 93 L 10/03/24 11:49 FiO2 40 10/03/24 04:00 Intake & Output 10/02/24 10/03/24 10/03/24 18:59 06:59 18:59 Intake Total 829.435 110.431 16.896 Output Total 350 400 Balance 479.435 -289.569 16.896 Weight 112.9 kg 113.6 kg Intake: IV 730 60 Azithromycin 500 mg In 250 Sodium Chloride 0.9% 250 ml @ 250 mls/hr IVPB DAILY JULIEN Rx#:[id number] Sodium Chloride 0.9% 1, 480 60 000 ml @ 60 mls/hr IV . [id number] JUL[facility]EN Rx#:[id number] Intake, IV Titration 99.435 50.431 16.896 Amount Insulin Regular 100 unit 99.435 50.431 16.896 In Sodium Chloride 0.9% 100 ml @ Titrate IV .Q0M JULIEN Rx#:[id number] Output: Urine 350 400 Other: Voiding Method External Catheter External Catheter External Catheter # Voids 1 - Exam General Revealed 74-year-old white male obese awake, alert oriented x 3 on nasal cannula HEENT: Neck Short obese neck, no neck masses no thyromegaly, PERRLA, EOMI, nonicteric. Moist mucous membranes Lungs: Diminished breath sound bilaterally no crackles no rhonchi no wheezes Chest Wall: Symmetrical chest expansion no chest wall tenderness Heart: Distant S1-S2, no S3 gallop. 2/6 systolic murmur throughout the precordium Abdomen: Morbidly obese, soft, non-tender, bowel sounds active all four quadrants, no masses, no organomegaly. Extremities: Bilateral above-knee amputations Pulses: No pulse. Skin: No rashes. Neurologic: Alert oriented x 3, no gross focal deficit. - Labs CBC & Chem 7: 10/03/24 03:59 10/03/24 03:59 Labs: Abnormal Lab Results - Last 24 Hours (Table) 10/02/24 10/02/24 10/02/24 Range/Units 15:04 15:55 17:52 WBC (4.50-10.00) 10*3/uL RBC (4.40-5.60) 10*6/uL Hgb (13.0-17.0) g/dL Hct (39.6-50.0) % MCV (80.0-97.0) fL MCH (27.0-32.0) pg MCHC (32.0-37.0) g/dL Plt Count (140-440) 10*3/uL Lymphocytes # (0.90-5.00) 10*3/uL Monocytes # (0.20-1.00) 10*3/uL Eosinophils # (0.04-0.35) 10*3/uL Potassium (3.5-5.1) mmol/L BUN (9-20) mg/dL Creatinine (0.66-1.25) mg/dL Glucose (74-99) mg/dL POC Glucose (mg/dL) 280 H 233 H 137 H (70-110) mg/dL 10/02/24 10/02/24 10/02/24 Range/Units 18:23 18:59 20:06 WBC (4.50-10.00) 10*3/uL RBC (4.40-5.60) 10*6/uL Hgb (13.0-17.0) g/dL Hct (39.6-50.0) % MCV (80.0-97.0) fL MCH (27.0-32.0) pg MCHC (32.0-37.0) g/dL Plt Count (140-440) 10*3/uL Lymphocytes # (0.90-5.00) 10*3/uL Monocytes # (0.20-1.00) 10*3/uL Eosinophils # (0.04-0.35) 10*3/uL Potassium (3.5-5.1) mmol/L BUN (9-20) mg/dL Creatinine (0.66-1.25) mg/dL Glucose (74-99) mg/dL POC Glucose (mg/dL) 128 H 127 H 196 H (70-110) mg/dL 10/02/24 10/02/24 10/02/24 Range/Units 21:05 22:17 23:24 WBC (4.50-10.00) 10*3/uL RBC (4.40-5.60) 10*6/uL Hgb (13.0-17.0) g/dL Hct (39.6-50.0) % MCV (80.0-97.0) fL MCH (27.0-32.0) pg MCHC (32.0-37.0) g/dL Plt Count (140-440) 10*3/uL Lymphocytes # (0.90-5.00) 10*3/uL Monocytes # (0.20-1.00) 10*3/uL Eosinophils # (0.04-0.35) 10*3/uL Potassium (3.5-5.1) mmol/L BUN (9-20) mg/dL Creatinine (0.66-1.25) mg/dL Glucose (74-99) mg/dL POC Glucose (mg/dL) 168 H 188 H 150 H (70-110) mg/dL 10/03/24 10/03/24 10/03/24 Range/Units 00:14 02:00 03:01 WBC (4.50-10.00) 10*3/uL RBC (4.40-5.60) 10*6/uL Hgb (13.0-17.0) g/dL Hct (39.6-50.0) % MCV (80.0-97.0) fL MCH (27.0-32.0) pg MCHC (32.0-37.0) g/dL Plt Count (140-440) 10*3/uL Lymphocytes # (0.90-5.00) 10*3/uL Monocytes # (0.20-1.00) 10*3/uL Eosinophils # (0.04-0.35) 10*3/uL Potassium (3.5-5.1) mmol/L BUN (9-20) mg/dL Creatinine (0.66-1.25) mg/dL Glucose (74-99) mg/dL POC Glucose (mg/dL) 136 H 175 H 210 H (70-110) mg/dL 10/03/24 10/03/24 10/03/24 Range/Units 03:59 03:59 04:06 WBC 4.27 L (4.50-10.00) 10*3/uL RBC 3.52 L (4.40-5.60) 10*6/uL Hgb 11.7 L (13.0-17.0) g/dL Hct 38.0 L (39.6-50.0) % MCV 108.0 H (80.0-97.0) fL MCH 33.2 H (27.0-32.0) pg MCHC 30.8 L (32.0-37.0) g/dL Plt Count 74 L (140-440) 10*3/uL Lymphocytes # 0.25 L (0.90-5.00) 10*3/uL Monocytes # 0.06 L (0.20-1.00) 10*3/uL Eosinophils # 0.00 L (0.04-0.35) 10*3/uL Potassium 5.4 H (3.5-5.1) mmol/L BUN 75 H (9-20) mg/dL Creatinine 1.44 H (0.66-1.25) mg/dL Glucose 223 H (74-99) mg/dL POC Glucose (mg/dL) 231 H (70-110) mg/dL 10/03/24 10/03/24 10/03/24 Range/Units 05:03 06:10 07:01 WBC (4.50-10.00) 10*3/uL RBC (4.40-5.60) 10*6/uL Hgb (13.0-17.0) g/dL Hct (39.6-50.0) % MCV (80.0-97.0) fL MCH (27.0-32.0) pg MCHC (32.0-37.0) g/dL Plt Count (140-440) 10*3/uL Lymphocytes # (0.90-5.00) 10*3/uL Monocytes # (0.20-1.00) 10*3/uL Eosinophils # (0.04-0.35) 10*3/uL Potassium (3.5-5.1) mmol/L BUN (9-20) mg/dL Creatinine (0.66-1.25) mg/dL Glucose (74-99) mg/dL POC Glucose (mg/dL) 224 H 203 H 189 H (70-110) mg/dL 10/03/24 10/03/24 Range/Units 08:16 11:44 WBC (4.50-10.00) 10*3/uL RBC (4.40-5.60) 10*6/uL Hgb (13.0-17.0) g/dL Hct (39.6-50.0) % MCV (80.0-97.0) fL MCH (27.0-32.0) pg MCHC (32.0-37.0) g/dL Plt Count (140-440) 10*3/uL Lymphocytes # (0.90-5.00) 10*3/uL Monocytes # (0.20-1.00) 10*3/uL Eosinophils # (0.04-0.35) 10*3/uL Potassium (3.5-5.1) mmol/L BUN (9-20) mg/dL Creatinine (0.66-1.25) mg/dL Glucose (74-99) mg/dL POC Glucose (mg/dL) 273 H 312 H (70-110) mg/dL Microbiology - Last 24 Hours (Table) 09/30/24 08:43 Blood Culture - Preliminary Blood Assessment and Plan Assessment: Impression: Acute hypoxic and hypercapnic respiratory failure, multifactorial as noted below Acute RSV infection Acute on chronic stage II kidney disease Acute hyperkalemia, related to DEBORA inhibitors, Aldactone and acute kidney injury on top of chronic kidney disease, in addition to severe respiratory acidosis with low pH Acute exacerbation of COPD Obstructive sleep apnea Obesity hypoventilation syndrome Chronic A-fib CHF with reduced LV function with an EF of around 40 to 45% and severe pulm hypertension with estimated PA pressure of around 57 based on echocardiogram done on 01/23/2024 Severe PAD Diabetes mellitus type 2 Degenerative arthritis Gout Fatty liver disease Hypertension Bilateral below-knee amputations Acute metabolic encephalopathy mostly related to his hypercapnia improving with BiPAP. Recommendation: Continue O2 via nasal cannula titrate FiO2 down maintain O2 saturation just above 88% However keep BiPAP at bedside and use as needed specially if the patient becomes obtunded Continue bronchodilators Continue insulin Continue DuoNeb updrafts Continue prednisone at 20 mg daily Continue to titrate oxygen accordingly on BiPAP. Continue droplet isolation Continue Eliquis Continue antibiotics empirically Continue GI and DVT prophylaxis patient is on pantoprazole is also on Eliquis Transfer the patient today to a monitored bed and selective, but continue to monitor closely for worsening hypercapnia and obtundation. Patient remains relatively ill not ready for any discharge planning. Will continue to follow Time with Patient: Less than 30
[2024-10-03 15:13] LABS: Glucose,Whole Blood 438 mg/dL (70-110)
[2024-10-03] MEDS: INSULIN GLARGINE (LANTUS) 100 UNIT/ML SYR SQ ONE (15:39)
[2024-10-03 17:49] LABS: Glucose,Whole Blood 387 mg/dL (70-110)
[2024-10-03 20:29] LABS: Glucose,Whole Blood 334 mg/dL (70-110)
[2024-10-03 23:27] LABS: Glucose,Whole Blood 289 mg/dL (70-110)
--- NOTE | 2024-10-04 05:42 | XR ---
EXAMINATION TYPE: XR chest 1V portable DATE OF EXAM: 10/04/2024 CLINICAL INDICATION: Male, 74 years old with history of BIPAP dependent respiratory failure, progress study. TECHNIQUE: Single AP portable semiupright view of the chest is obtained. COMPARISON: Chest x-ray from one day earlier and older studies. FINDINGS: Worsening left mid to lower lung increased opacity. New right basilar opacity. Cardiomegal y is demonstrated. Surgical change to right mandible is partially imaged. IMPRESSION: New right basilar acute infiltrate and/or atelectasis. Worsening left mid to lower lung a cute infiltrate and/or atelectasis. Possible small left greater than right bilateral pleural effusion s. [facility], , 10/04/2024 5:40 AM
[2024-10-04 06:07] LABS: HCT 38.7 % (39.6-50.0); HGB 12.2 g/dL (13.0-17.0); Lymphocytes % (A) 9.6 %; MCH 33.3 pg (27.0-32.0); MCHC 31.5 g/dL (32.0-37.0); MCV 105.7 fL (80.0-97.0); Mean Platelet Volume 10.9 fL (9.5-12.2); Monocytes # (A) 0.16 10*3/uL (0.20-1.00); Monocytes % (A) 5.1 %; Neutrophils # (A) 2.65 10*3/uL (1.80-7.70); Neutrophils % (A) 84.3 %; RBC 3.66 10*6/uL (4.40-5.60); RDW 14.2 % (11.5-14.5); WBC 3.14 10*3/uL (4.50-10.00)
[2024-10-04 06:28] LABS: Platelet Count 72 10*3/uL (140-440)
[2024-10-04 06:41] LABS: African American GFR (CKD) 60 (>60 ml/min/1.73 sqM); Anion Gap 5 mmol/L; Blood Urea Nitrogen 71 mg/dL (9-20); Calcium 8.2 mg/dL (8.4-10.2); Carbon Dioxide 26 mmol/L (22-30); Chloride 103 mmol/L (98-107); Glucose 281 mg/dL (74-99); Non-African American GFR(CKD) 52 (>60 ml/min/1.73 sqM); Potassium 5.2 mmol/L (3.5-5.1); Sodium 134 mmol/L (137-145)
[2024-10-04 06:44] LABS: Glucose,Whole Blood 312 mg/dL (70-110)
[2024-10-04] MEDS: INSULIN GLARGINE (LANTUS) 100 UNIT/ML SYR SQ SCH (07:11)
[2024-10-04] MEDS: predniSONE 20 MG TAB PO SCH (08:22)
[2024-10-04] MEDS: cefTRIAXone 2 GM in DEXTROSE 5% IN WATER 50 ML IVPB SCH (08:23)
--- NOTE | 2024-10-04 10:12 | P.PN ---
Subjective patient is a 74-year-old gentleman with past medical history significant for atrial fibrillation, CAD, congestive heart failure, hypertension, hype rlipidemia, presents the ER after being sent in from [facility] for shortness of breath. Patient stated that he has been feeling sick for the last couple of days, complaining of shortness of breath at rest as on exertion, patient also complaining of cough. Patient also noted that he was having fever. There was no complaint of chills. Patient denied any chest pain. There was no complaint of orthopnea or PND there was no complaint of nausea, vomiting or abdominal pain. Because of this shortness of breath and fever, patient was sent to the ER Initial lab work done in the ER showed WBC 5.2, hemoglobin 13.6, platelet count 105, sodium 133, potassium 6.2, BUN 57, creatinine 1.39 glucose 349, lactate 1.4, AST 76, ALT 59, troponin 0.027 Influenza A not detected Influenza B not detected RSV detected COVID-19 not detected EKG done in the ER showed heart rate of 82, no ST segment elevation or d epression seen, no T-wave inversions seen. Chest x-ray done in the ER showed left lower lobe infiltrate Patient admitted to internal medicine service 10/01. Patient seen and examined. Patient had a rapid response called this morning for respiratory distress and confusion. Patient had to be placed on BiPAP and was transferred to ICU. Patient started on insulin drip. 10/02 Patient is improving. He used the BiPAP overnight and currently on 3 to 4 L oxygen via nasal cannula. He is mildly tachycardic and afebrile His up in bed awake alert and he answers questions present quietly slightly tachypneic not using accessory muscles has good appetite eating his breakfast without difficulty. He denies chest pain. Hemoglobin is 12.9 platelet count is 86. Creatinine down to 1.7 down to 1.3. ESR is elevated at 39 procalcitonin is negative at 0.22 COVID and influenza test were negative while RSV is positive. Patient currently kept on normal saline at 60 mL/h, Eliquis 2.5 mg, Zithromax hospitalist on, insulin and IV Solu-Medrol Patient might be documented to medical floor at [facility] 10/03 Patient remains in the ICU up in bed but looks weak. Still getting oxygen via nasal cannula currently on 6 L/min. Also patient was using BiPAP overnight as he thinks. He has mild right upper chest pain. He still complaining from cough phlegm but no tachypnea at rest. He is getting normal sinus 60 mL/h and insulin drip Anion gap closed at 7 therefore we are going to switch him to his home dose of Lantus 30 units and Humalog 10 units with meal 10/04 Patient breathing is improving He was transferred to [facility] units His prednisone switched to 20 mg daily His insulin increased yesterday from 30 up to 45 and continued with short acting insulin 13 units with meals Continue on antibiotics and gentle hydration as per nephrology team. Potassium 5.2 and creatinine 1.3 which is stable Objective - Vital Signs Vital signs: Vital Signs Temp 97.4 F L 10/04/24 08:20 Pulse 81 10/04/24 09:47 Resp 17 10/04/24 08:20 BP 161/89 10/04/24 08:20 Pulse Ox 96 10/04/24 09:32 FiO2 40 10/04/24 04:21 Intake & Output 10/03/24 10/04/24 10/04/24 18:59 06:59 18:59 Intake Total 16.896 480 20 Output Total 500 Balance 16.896 -20 20 Weight 116.8 kg Intake: IV 480 20 Invasive Line 4 10 Invasive Line 5 10 Sodium Chloride 0.9% 1, 480 000 ml @ 60 mls/hr IV . [id number] [facility] Rx#:[id number] Intake, IV Titration 16.896 Amount Insulin Regular 100 unit 16.896 In Sodium Chloride 0.9% 100 ml @ Titrate IV .Q0M JULIEN Rx#:[id number] Output: Urine 500 Other: Voiding Method External Catheter External Catheter External Catheter # Voids 3 - Exam GENERAL: The patient is alert and oriented x3, not in any acute distress. Well developed, well nourished. HEENT: Pupils are round and equally reacting to light. EOMI. No scleral icterus. No conjunctival pallor. Normocephalic, atraumatic. No pharyngeal erythema. No thyromegaly. CARDIOVASCULAR: S1 and S2 present. No murmurs, rubs, or gallops. -PULMONARY: Chest is clear to auscultation, scattered wheezing , mild bilateral crackles. ABDOMEN: Soft, nontender, nondistended, normoactive bowel sounds. No palpable organomegaly. MUSCULOSKELETAL: No joint swelling or deformity. EXTREMITIES: No cyanosis, clubbing, or pedal edema. NEUROLOGICAL: Gross neurological examination did not reveal any focal deficits. SKIN: No rashes. no petechiae. - Labs CBC & Chem 7: 10/04/24 05:28 10/04/24 05:28 Labs: Abnormal Lab Results - Last 24 Hours (Table) 10/03/24 10/03/24 10/03/24 Range/Units 11:44 14:51 15:12 WBC (4.50-10.00) 10*3/uL RBC (4.40-5.60) 10*6/uL Hgb (13.0-17.0) g/dL Hct (39.6-50.0) % MCV (80.0-97.0) fL MCH (27.0-32.0) pg MCHC (32.0-37.0) g/dL Plt Count (140-440) 10*3/uL Lymphocytes # (0.90-5.00) 10*3/uL Monocytes # (0.20-1.00) 10*3/uL Eosinophils # (0.04-0.35) 10*3/uL Sodium (137-145) mmol/L Potassium 5.8 H (3.5-5.1) mmol/L BUN (9-20) mg/dL Creatinine (0.66-1.25) mg/dL Glucose (74-99) mg/dL POC Glucose (mg/dL) 312 H 438 H (70-110) mg/dL Calcium (8.4-10.2) mg/dL 10/03/24 10/03/24 10/03/24 Range/Units 17:47 20:28 21:23 WBC (4.50-10.00) 10*3/uL RBC (4.40-5.60) 10*6/uL Hgb (13.0-17.0) g/dL Hct (39.6-50.0) % MCV (80.0-97.0) fL MCH (27.0-32.0) pg MCHC (32.0-37.0) g/dL Plt Count (140-440) 10*3/uL Lymphocytes # (0.90-5.00) 10*3/uL Monocytes # (0.20-1.00) 10*3/uL Eosinophils # (0.04-0.35) 10*3/uL Sodium (137-145) mmol/L Potassium 5.4 H (3.5-5.1) mmol/L BUN (9-20) mg/dL Creatinine (0.66-1.25) mg/dL Glucose (74-99) mg/dL POC Glucose (mg/dL) 387 H 334 H (70-110) mg/dL Calcium (8.4-10.2) mg/dL 10/03/24 10/04/24 10/04/24 Range/Units 23:26 05:28 05:28 WBC 3.14 L (4.50-10.00) 10*3/uL RBC 3.66 L (4.40-5.60) 10*6/uL Hgb 12.2 L (13.0-17.0) g/dL Hct 38.7 L (39.6-50.0) % MCV 105.7 H (80.0-97.0) fL MCH 33.3 H (27.0-32.0) pg MCHC 31.5 L (32.0-37.0) g/dL Plt Count 72 L (140-440) 10*3/uL Lymphocytes # 0.30 L (0.90-5.00) 10*3/uL Monocytes # 0.16 L (0.20-1.00) 10*3/uL Eosinophils # 0.00 L (0.04-0.35) 10*3/uL Sodium 134 L (137-145) mmol/L Potassium 5.2 H (3.5-5.1) mmol/L BUN 71 H (9-20) mg/dL Creatinine 1.36 H (0.66-1.25) mg/dL Glucose 281 H (74-99) mg/dL POC Glucose (mg/dL) 289 H (70-110) mg/dL Calcium 8.2 L (8.4-10.2) mg/dL 10/04/24 Range/Units 06:43 WBC (4.50-10.00) 10*3/uL RBC (4.40-5.60) 10*6/uL Hgb (13.0-17.0) g/dL Hct (39.6-50.0) % MCV (80.0-97.0) fL MCH (27.0-32.0) pg MCHC (32.0-37.0) g/dL Plt Count (140-440) 10*3/uL Lymphocytes # (0.90-5.00) 10*3/uL Monocytes # (0.20-1.00) 10*3/uL Eosinophils # (0.04-0.35) 10*3/uL Sodium (137-145) mmol/L Potassium (3.5-5.1) mmol/L BUN (9-20) mg/dL Creatinine (0.66-1.25) mg/dL Glucose (74-99) mg/dL POC Glucose (mg/dL) 312 H (70-110) mg/dL Calcium (8.4-10.2) mg/dL Microbiology - Last 24 Hours (Table) 09/30/24 08:43 Blood Culture - Preliminary Blood Assessment and Plan Assessment: Acute hypoxic respiratory failure RSV infection Acute COPD exacerbation Pneumonia Acute on chronic kidney injury stage II Chronic atrial fibrillation on Eliquis CHF with ejection fraction 40 to 45%, chronic Hypertension Hyperlipidemia Diabetes mellitus Obesity Severe peripheral artery disease History of gout Fatty liver History of bilateral BKA Plan: Continue with antibiotic Zithromax ceftriaxone as per pulmonary team Continue with Eliquis Continue with insulin and monitor glucose normal. Continue with the steroid, prednisone Continue with Normal Saline per snow fence erector Monitor creatinine and hemoglobin Discontinue insulin drip and start Lantus 45 units and Humalog 10 units with meal and insulin sliding scale Several consultants on the case including ICU critical care pulmonary team, snow fence erector DVT prophylaxis: Eliquis GI prophylaxis: Pepcid Prognosis is guarded
--- NOTE | 2024-10-04 10:20 | P.PN ---
Subjective Patient is seen in follow-up for acute kidney injury and hyperkalemia. Receiving IV fluids. Currently on nasal cannula. Transferred out of the ICU. Vital signs are stable. General: No acute distress. HEENT: On nasal cannula. LUNGS: No audible rhonchi or wheezes. HEART: Rate and Rhythm are regular. ABDOMEN: Obese, soft. EXTREMITITES: Bilateral [id number] amputations. Objective - Vital Signs Vital signs: Vital Signs Temp 97.4 F L 10/04/24 08:20 Pulse 81 10/04/24 09:47 Resp 17 10/04/24 08:20 BP 161/89 10/04/24 08:20 Pulse Ox 96 10/04/24 09:32 FiO2 40 10/04/24 04:21 Intake & Output 10/03/24 10/04/24 10/04/24 18:59 06:59 18:59 Intake Total 16.896 480 20 Output Total 500 Balance 16.896 -20 20 Weight 116.8 kg Intake: IV 480 20 Invasive Line 4 10 Invasive Line 5 10 Sodium Chloride 0.9% 1, 480 000 ml @ 60 mls/hr IV . [id number] JULIEN Rx#:[id number] Intake, IV Titration 16.896 Amount Insulin Regular 100 unit 16.896 In Sodium Chloride 0.9% 100 ml @ Titrate IV .Q0M JULIEN Rx#:[id number] Output: Urine 500 Other: Voiding Method External Catheter External Catheter External Catheter # Voids 3 1 - Labs CBC & Chem 7: 10/04/24 05:28 10/04/24 05:28 Labs: Abnormal Lab Results - Last 24 Hours (Table) 10/03/24 10/03/24 10/03/24 Range/Units 11:44 14:51 15:12 WBC (4.50-10.00) 10*3/uL RBC (4.40-5.60) 10*6/uL Hgb (13.0-17.0) g/dL Hct (39.6-50.0) % MCV (80.0-97.0) fL MCH (27.0-32.0) pg MCHC (32.0-37.0) g/dL Plt Count (140-440) 10*3/uL Lymphocytes # (0.90-5.00) 10*3/uL Monocytes # (0.20-1.00) 10*3/uL Eosinophils # (0.04-0.35) 10*3/uL Sodium (137-145) mmol/L Potassium 5.8 H (3.5-5.1) mmol/L BUN (9-20) mg/dL Creatinine (0.66-1.25) mg/dL Glucose (74-99) mg/dL POC Glucose (mg/dL) 312 H 438 H (70-110) mg/dL Calcium (8.4-10.2) mg/dL 10/03/24 10/03/24 10/03/24 Range/Units 17:47 20:28 21:23 WBC (4.50-10.00) 10*3/uL RBC (4.40-5.60) 10*6/uL Hgb (13.0-17.0) g/dL Hct (39.6-50.0) % MCV (80.0-97.0) fL MCH (27.0-32.0) pg MCHC (32.0-37.0) g/dL Plt Count (140-440) 10*3/uL Lymphocytes # (0.90-5.00) 10*3/uL Monocytes # (0.20-1.00) 10*3/uL Eosinophils # (0.04-0.35) 10*3/uL Sodium (137-145) mmol/L Potassium 5.4 H (3.5-5.1) mmol/L BUN (9-20) mg/dL Creatinine (0.66-1.25) mg/dL Glucose (74-99) mg/dL POC Glucose (mg/dL) 387 H 334 H (70-110) mg/dL Calcium (8.4-10.2) mg/dL 10/03/24 10/04/24 10/04/24 Range/Units 23:26 05:28 05:28 WBC 3.14 L (4.50-10.00) 10*3/uL RBC 3.66 L (4.40-5.60) 10*6/uL Hgb 12.2 L (13.0-17.0) g/dL Hct 38.7 L (39.6-50.0) % MCV 105.7 H (80.0-97.0) fL MCH 33.3 H (27.0-32.0) pg MCHC 31.5 L (32.0-37.0) g/dL Plt Count 72 L (140-440) 10*3/uL Lymphocytes # 0.30 L (0.90-5.00) 10*3/uL Monocytes # 0.16 L (0.20-1.00) 10*3/uL Eosinophils # 0.00 L (0.04-0.35) 10*3/uL Sodium 134 L (137-145) mmol/L Potassium 5.2 H (3.5-5.1) mmol/L BUN 71 H (9-20) mg/dL Creatinine 1.36 H (0.66-1.25) mg/dL Glucose 281 H (74-99) mg/dL POC Glucose (mg/dL) 289 H (70-110) mg/dL Calcium 8.2 L (8.4-10.2) mg/dL 10/04/24 Range/Units 06:43 WBC (4.50-10.00) 10*3/uL RBC (4.40-5.60) 10*6/uL Hgb (13.0-17.0) g/dL Hct (39.6-50.0) % MCV (80.0-97.0) fL MCH (27.0-32.0) pg MCHC (32.0-37.0) g/dL Plt Count (140-440) 10*3/uL Lymphocytes # (0.90-5.00) 10*3/uL Monocytes # (0.20-1.00) 10*3/uL Eosinophils # (0.04-0.35) 10*3/uL Sodium (137-145) mmol/L Potassium (3.5-5.1) mmol/L BUN (9-20) mg/dL Creatinine (0.66-1.25) mg/dL Glucose (74-99) mg/dL POC Glucose (mg/dL) 312 H (70-110) mg/dL Calcium (8.4-10.2) mg/dL Microbiology - Last 24 Hours (Table) 09/30/24 08:43 Blood Culture - Preliminary Blood Assessment and Plan Plan: Assessment: 1. Acute kidney injury secondary to ATN secondary to severe sepsis. Creatinine peaked at 1.71 this admission and is 1.36 today. Baseline creatinine near 1. Kidney ultrasound was nondiagnostic. 2. Acute RSV pneumonia. 3. Hyperkalemia secondary to acute kidney injury, Aldactone and lisinopril. Also component of hyperglycemia. Improved. 4. Diabetes mellitus. On insulin drip. 5. Status post bilateral [id number] amputations. 6. Acute hypoxic and hypercapnic respiratory failure. Currently on nasal cannula. Plan: Hep-Lock IV fluids. Lasix 20 mg IV once today. Renal diet. Continue to hold lisinopril and Aldactone. Blood glucose control. Add amlodipine 5 mg once daily.
[2024-10-04 11:23] LABS: Glucose,Whole Blood 283 mg/dL (70-110)
[2024-10-04] MEDS: FUROSEMIDE 10 MG/ML 2 ML VIAL IV ONE (11:42)
[2024-10-04] MEDS: amLODIPine 5 MG TAB PO SCH (11:42)
[2024-10-04] MEDS: INSULIN LISPRO (HumaLOG) 100 UNIT/ML 10 mL VL SQ SCH (11:43)
[2024-10-04] MEDS ORDERED: INSULIN LISPRO (HumaLOG) 100 UNIT/ML 10 mL VL SQ SCH (12:30)
--- NOTE | 2024-10-04 13:43 | P.PN ---
Subjective Progress Note Date: 10/04/24 Principal diagnosis: Acute hypoxic and hypercapnic respiratory failure This is a 74-year-old male patient was brought into the hospital with increased shortness of breath. The patient resides in [facility] and the patient was experiencing his dyspnea along with fever and cough and the symptoms have been going on for past couple of days. The patient denies having any chest pain. He came into the emergency and the patient was found to have a fever with a temperature of 101.7. Hemodynamically stable. He was hyper tensive. He is currently on 4 L of oxygen by nasal cannula with a pulse ox of 94%. Blood work that was done emergency department showed a white cell count of 5.2 with a hemoglobin of 13.6 and a platelet count of 105. He had a component of an acute kidney injury. His K level was at 6.2 this morning with a sodium level of 133, BUN of 57 with a creatinine of 1.39 which came up to 1.47. LFTs were mildly disturbed with an AST of 76, ALT of 59 and alkaline phosphatase of 161. Troponins are negative. The patient was found to have an acute RSV infection. The viral screen was positive for history. Based on that, the patient was hospitalized and a pulmonary consultation was requested. Nephrology consultation was also requested regarding this acute kidney injury Chest x-ray was reviewed and it shows diminished lung volumes bilaterally, pulm vasculature was within normal limits. Some limited left midlung infiltrate versus atelectasis was noted. This patient has an extensive history and multiple medical problems and comorbidities. For that reason, the patient has been essentially maintained at [facility]. The patient was treated back in January 2024 for a severe gangrenous right lower extremity and the patient underwent a above-knee amputation and subsequent antibiotic treatment for MRSA and Proteus. He is known to have COPD, severe peripheral vascular disease and he has already undergone a previous left above-knee amputation on the left. He has chronic A- fib, hypertension, severe ischemic cardiomyopathy with a previous echocardiogram showing an ejection fraction 40 to 45%, type 2 diabetes mellitus, chronic kidney disease, stage II, BPH and he also suffers from hypertension, BPH, obstructive sleep apnea, for which she has been maintained on CPAP therapy, chronic fatty liver disease and gout. Patient was seen today on 10/01/2024, patient was transferred to the ICU last night, he developed apparently obtundation, hypercapnia, and significantly elevated pCO2 with low pH, required placement on BiPAP 16/5/50% ABG showed a pO2 this morning of 103 pCO2 72 pH of 7.23, ABG prior showed a pO2 of 60 pCO2 of 93 pH of 7.12 prior to placement on BiPAP. Patient remains obtunded, arousable, but does not follow instructions. Remains on IV Solu-Medrol at 40 every 8, remains on antibiotics and is also on Eliquis, chest x-ray showed left lower lobe atelectasis/and or infiltrate. WBC count is 5.7 hemoglobin 13.8 electrolytes are normal potassium is down to 5.2 BUN is 64 creatinine 1.71 glucose 459 patient had positive RSV screening by PCR. Procalcitonin level is 0.22. Apparently the patient was obtunded last night, seen by the a team and he was transferred to the ICU at 630 this morning and placed on BiPAP 16/5/50% however I cut him down to 40%. IV fluid is 0.9 normal saline at 60 cc/h Patient was seen today on 10/02/2024, remains in the ICU, we were able to transition him to 4 L nasal cannula, he is on insulin at 5.1 units/h he is off BiPAP, 0.9 normal saline at 60 cc/h. Last night he was on BiPAP 16/5/40%. Remains on antibiotics, remains on Eliquis, significant improvement compared to yesterday. I felt yesterday he was close to be intubated and mechanically ventilated if he did not do well with BiPAP. Apparently the patient did well overnight and now he is on nasal cannula. WBC count is 6.27 hemoglobin is 12.9 electrolytes are normal BUN is 68 creatinine is coming down to 1.33, patient had positive RSV PCR on admission. Chest x-ray is showing improving infiltrate in the left lower lobe. Seen today on 10/03/2024, remains in the ICU, he had to go on BiPAP yesterday 16/5/40%, this morning the patient is more awake, alert and appropriate, he was transitioned to 6 L nasal cannula. Patient seems to be comfortable, not in any distress. CBC is relatively normal, basic metabolic profile is normal except for slightly elevated potassium of 5.4, BUN is 75 creatinine is 1.44 close to his baseline. Chest x-ray today continues show left basilar atelectasis and possibly a small pleural effusion. Patient was seen today on 10/04/2024, patient was transferred out of the ICU today, was on BiPAP last night but today he is on nasal cannula at 2 L/min and O2 sat is 94%, he is hemodynamically stable, patient denies any shortness of breath or cough or wheezing. Patient is morbidly obese, and he is known to have history of obstructive sleep apnea patient is a [facility] resident. WBC count is 3.1 hemoglobin 12.2 potassium is 5.2 BUN is 71 creatinine 1.36, improving blood sugar is 283 Objective - Vital Signs Vital signs: Vital Signs Temp 97.9 F 10/04/24 11:35 Pulse 85 10/04/24 11:35 Resp 17 10/04/24 11:35 BP 125/83 10/04/24 11:35 Pulse Ox 94 L 10/04/24 11:35 FiO2 40 10/04/24 04:21 Intake & Output 10/03/24 10/04/24 10/04/24 18:59 06:59 18:59 Intake Total 16.896 480 220 Output Total 500 900 Balance 16.896 -20 -680 Weight 116.8 kg Intake: IV 480 40 Invasive Line 4 20 Invasive Line 5 20 Sodium Chloride 0.9% 1, 480 000 ml @ 60 mls/hr IV . [id number] JULIEN Rx#:[id number] Intake, IV Titration 16.896 Amount Insulin Regular 100 unit 16.896 In Sodium Chloride 0.9% 100 ml @ Titrate IV .Q0M JULIEN Rx#:[id number] Oral 180 Output: Urine 500 900 Other: Voiding Method External Catheter External Catheter External Catheter # Voids 3 1 - Exam General Revealed 74-year-old white male obese awake, alert oriented x 3 on nasal cannula HEENT: Neck Short obese neck, no neck masses no thyromegaly, PERRLA, EOMI, no nicteric. Moist mucous membranes Lungs: Diminished breath sound bilaterally no crackles no rhonchi no wheezes Chest Wall: Symmetrical chest expansion no chest wall tenderness Heart: Distant S1-S2, no S3 gallop. 2/6 systolic murmur throughout the precordium Abdomen: Morbidly obese, soft, non-tender, bowel sounds active all four quadrants, no masses, no organomegaly. Extremities: Bilateral above-knee amputations Pulses: No pulse. Skin: No rashes. Neurologic: Alert oriented x 3, no gross focal deficit. - Labs CBC & Chem 7: 10/04/24 05:28 10/04/24 05:28 Labs: Abnormal Lab Results - Last 24 Hours (Table) 10/03/24 10/03/24 10/03/24 Range/Units 14:51 15:12 17:47 WBC (4.50-10.00) 10*3/uL RBC (4.40-5.60) 10*6/uL Hgb (13.0-17.0) g/dL Hct (39.6-50.0) % MCV (80.0-97.0) fL MCH (27.0-32.0) pg MCHC (32.0-37.0) g/dL Plt Count (140-440) 10*3/uL Lymphocytes # (0.90-5.00) 10*3/uL Monocytes # (0.20-1.00) 10*3/uL Eosinophils # (0.04-0.35) 10*3/uL Sodium (137-145) mmol/L Potassium 5.8 H (3.5-5.1) mmol/L BUN (9-20) mg/dL Creatinine (0.66-1.25) mg/dL Glucose (74-99) mg/dL POC Glucose (mg/dL) 438 H 387 H (70-110) mg/dL Calcium (8.4-10.2) mg/dL 10/03/24 10/03/24 10/03/24 Range/Units 20:28 21:23 23:26 WBC (4.50-10.00) 10*3/uL RBC (4.40-5.60) 10*6/uL Hgb (13.0-17.0) g/dL Hct (39.6-50.0) % MCV (80.0-97.0) fL MCH (27.0-32.0) pg MCHC (32.0-37.0) g/dL Plt Count (140-440) 10*3/uL Lymphocytes # (0.90-5.00) 10*3/uL Monocytes # (0.20-1.00) 10*3/uL Eosinophils # (0.04-0.35) 10*3/uL Sodium (137-145) mmol/L Potassium 5.4 H (3.5-5.1) mmol/L BUN (9-20) mg/dL Creatinine (0.66-1.25) mg/dL Glucose (74-99) mg/dL POC Glucose (mg/dL) 334 H 289 H (70-110) mg/dL Calcium (8.4-10.2) mg/dL 10/04/24 10/04/24 10/04/24 Range/Units 05:28 05:28 06:43 WBC 3.14 L (4.50-10.00) 10*3/uL RBC 3.66 L (4.40-5.60) 10*6/uL Hgb 12.2 L (13.0-17.0) g/dL Hct 38.7 L (39.6-50.0) % MCV 105.7 H (80.0-97.0) fL MCH 33.3 H (27.0-32.0) pg MCHC 31.5 L (32.0-37.0) g/dL Plt Count 72 L (140-440) 10*3/uL Lymphocytes # 0.30 L (0.90-5.00) 10*3/uL Monocytes # 0.16 L (0.20-1.00) 10*3/uL Eosinophils # 0.00 L (0.04-0.35) 10*3/uL Sodium 134 L (137-145) mmol/L Potassium 5.2 H (3.5-5.1) mmol/L BUN 71 H (9-20) mg/dL Creatinine 1.36 H (0.66-1.25) mg/dL Glucose 281 H (74-99) mg/dL POC Glucose (mg/dL) 312 H (70-110) mg/dL Calcium 8.2 L (8.4-10.2) mg/dL 10/04/24 Range/Units 11:22 WBC (4.50-10.00) 10*3/uL RBC (4.40-5.60) 10*6/uL Hgb (13.0-17.0) g/dL Hct (39.6-50.0) % MCV (80.0-97.0) fL MCH (27.0-32.0) pg MCHC (32.0-37.0) g/dL Plt Count (140-440) 10*3/uL Lymphocytes # (0.90-5.00) 10*3/uL Monocytes # (0.20-1.00) 10*3/uL Eosinophils # (0.04-0.35) 10*3/uL Sodium (137-145) mmol/L Potassium (3.5-5.1) mmol/L BUN (9-20) mg/dL Creatinine (0.66-1.25) mg/dL Glucose (74-99) mg/dL POC Glucose (mg/dL) 283 H (70-110) mg/dL Calcium (8.4-10.2) mg/dL Microbiology - Last 24 Hours (Table) 09/30/24 08:43 Blood Culture - Preliminary Blood Assessment and Plan Assessment: Impression: Acute hypoxic and hypercapnic respiratory failure, multifactorial as noted below Acute RSV infection Acute on chronic stage II kidney disease Acute hyperkalemia, related to DEBORA inhibitors, Aldactone and acute kidney injury on top of chronic kidney disease, in addition to severe respiratory acidosis with low pH Acute exacerbation of COPD Obstructive sleep apnea Obesity hypoventilation syndrome Chronic A-fib CHF with reduced LV function with an EF of around 40 to 45% and severe pulm hypertension with estimated PA pressure of around 57 based on echocardiogram done on 01/23/2024 Severe PAD Diabetes mellitus type 2 Degenerative arthritis Gout Fatty liver disease Hypertension Bilateral below-knee amputations Acute metabolic encephalopathy mostly related to his hypercapnia improving with BiPAP. Recommendation: Continue O2 via nasal cannula titrate FiO2 down maintain O2 saturation just above 88% Continue to use BiPAP at bedtime and as needed Continue bronchodilators Continue insulin [facility] Continue prednisone at 20 mg daily Continue to titrate oxygen accordingly on BiPAP. Continue droplet isolation patient tested positive for RSV on admission Continue Eliquis Continue antibiotics Continue GI and DVT prophylaxis patient is on pantoprazole is also on Eliquis Patient will eventually need to be transferred back to [facility] once cleared by all consultants and admitting physician Will continue to follow Time with Patient: Less than 30
[2024-10-04 16:30] LABS: Glucose,Whole Blood 360 mg/dL (70-110)
[2024-10-04 20:10] LABS: Glucose,Whole Blood 306 mg/dL (70-110)
[2024-10-05 07:20] LABS: Glucose,Whole Blood 256 mg/dL (70-110)
[2024-10-05 07:39] LABS: African American GFR (CKD) 88 (>60 ml/min/1.73 sqM); Anion Gap 5 mmol/L; Blood Urea Nitrogen 64 mg/dL (9-20); Calcium 8.4 mg/dL (8.4-10.2); Carbon Dioxide 26 mmol/L (22-30); Chloride 104 mmol/L (98-107); Glucose 196 mg/dL (74-99); Non-African American GFR(CKD) 76 (>60 ml/min/1.73 sqM); Sodium 135 mmol/L (137-145)
[2024-10-05 07:41] LABS: Potassium 5.5 mmol/L (3.5-5.1)
[2024-10-05 07:42] LABS: Magnesium 2.4 mg/dL (1.6-2.3)
[2024-10-05 07:47] LABS: HGB 12.3 g/dL (13.0-17.0); Lymphocytes # (A) 0.44 10*3/uL (0.90-5.00); Lymphocytes % (A) 14.8 %; MCH 33.7 pg (27.0-32.0); MCHC 32.4 g/dL (32.0-37.0); MCV 104.1 fL (80.0-97.0); Mean Platelet Volume 10.9 fL (9.5-12.2); Monocytes # (A) 0.26 10*3/uL (0.20-1.00); Monocytes % (A) 8.7 %; Neutrophils # (A) 2.24 10*3/uL (1.80-7.70); Neutrophils % (A) 75.2 %; RBC 3.65 10*6/uL (4.40-5.60); RDW 14.4 % (11.5-14.5); WBC 2.98 10*3/uL (4.50-10.00)
[2024-10-05 07:50] LABS: Platelet Count 65 10*3/uL (140-440)
--- NOTE | 2024-10-05 09:34 | P.PN ---
Subjective Patient is seen in follow-up for acute kidney injury and hyperkalemia. Oral intake is good. Off IV fluids. Renal function better. Currently on nasal cannula. Vital signs are stable. General: No acute distress. HEENT: On nasal cannula. LUNGS: No audible rhonchi or wheezes. HEART: Rate and Rhythm are regular. ABDOMEN: Obese, soft. EXTREMITITES: Bilateral [id number] amputations. Objective - Vital Signs Vital signs: Vital Signs Temp 98.1 F 10/05/24 07:22 Pulse 72 10/05/24 07:22 Resp 18 10/05/24 07:22 BP 130/98 10/05/24 07:22 Pulse Ox 94 L 10/05/24 07:22 FiO2 40 10/05/24 00:21 Intake & Output 10/04/24 10/05/24 10/05/24 18:59 06:59 18:59 Intake Total 400 40 200 Output Total 1600 1450 Balance -1200 -1410 200 Weight 115.5 kg Intake: IV 40 40 20 Invasive Line 4 20 20 10 Invasive Line 5 20 20 10 Oral 360 180 Output: Urine 1600 1450 Other: Voiding Method External Catheter External Catheter External Catheter # Voids 1 - Labs CBC & Chem 7: 10/05/24 06:02 10/05/24 08:15 Labs: Abnormal Lab Results - Last 24 Hours (Table) 10/04/24 10/04/24 10/04/24 Range/Units 11:22 16:28 20:08 WBC (4.50-10.00) 10*3/uL RBC (4.40-5.60) 10*6/uL Hgb (13.0-17.0) g/dL Hct (39.6-50.0) % MCV (80.0-97.0) fL MCH (27.0-32.0) pg Plt Count (140-440) 10*3/uL Lymphocytes # (0.90-5.00) 10*3/uL Eosinophils # (0.04-0.35) 10*3/uL Sodium (137-145) mmol/L Potassium (3.5-5.1) mmol/L BUN (9-20) mg/dL Glucose (74-99) mg/dL POC Glucose (mg/dL) 283 H 360 H 306 H (70-110) mg/dL Magnesium (1.6-2.3) mg/dL 10/05/24 10/05/24 10/05/24 Range/Units 06:02 06:02 07:19 WBC 2.98 L (4.50-10.00) 10*3/uL RBC 3.65 L (4.40-5.60) 10*6/uL Hgb 12.3 L (13.0-17.0) g/dL Hct 38.0 L (39.6-50.0) % MCV 104.1 H (80.0-97.0) fL MCH 33.7 H (27.0-32.0) pg Plt Count 65 L (140-440) 10*3/uL Lymphocytes # 0.44 L (0.90-5.00) 10*3/uL Eosinophils # 0.00 L (0.04-0.35) 10*3/uL Sodium 135 L (137-145) mmol/L Potassium 5.5 H (3.5-5.1) mmol/L BUN 64 H (9-20) mg/dL Glucose 196 H (74-99) mg/dL POC Glucose (mg/dL) 256 H (70-110) mg/dL Magnesium 2.4 H (1.6-2.3) mg/dL Assessment and Plan Plan: Assessment: 1. Acute kidney injury secondary to ATN secondary to severe sepsis. Creatinine peaked at 1.71 this admission and is 0.99 today. Baseline creatinine near 1. Kidney ultrasound was nondiagnostic. 2. Acute RSV pneumonia. 3. Hyperkalemia secondary to acute kidney injury, Aldactone and lisinopril. Also component of hyperglycemia. Improved. 4. Diabetes mellitus. s/p insulin drip. 5. Status post bilateral [id number] amputations. 6. Acute hypoxic and hypercapnic respiratory failure. Currently on nasal cannula. Plan: Status post IV Lasix yesterday. Add oral Lasix 20 mg once daily. Renal diet. Continue to hold lisinopril and Aldactone. Blood glucose control. Amlodipine added October 04, 2024.
[2024-10-05] MEDS: FUROSEMIDE 10 MG/ML 2 ML VIAL IV ONE (09:56)
[2024-10-05] MEDS: FUROSEMIDE 20 MG TAB PO SCH (10:00)
[2024-10-05 11:08] LABS: Glucose,Whole Blood 214 mg/dL (70-110)
--- NOTE | 2024-10-05 14:36 | P.PN ---
Subjective Progress Note Date: 10/05/24 Principal diagnosis: Acute hypoxic and hypercapnic respiratory failure This is a 74-year-old male patient was brought into the hospital with increased shortness of breath. The patient resides in [facility] and the patient was experiencing his dyspnea along with fever and cough and the symptoms have been going on for past couple of days. The patient denies having any chest pain. He came into the emergency and the patient was found to have a fever with a temperature of 101.7. Hemodynamically stable. He was hyper tensive. He is currently on 4 L of oxygen by nasal cannula with a pulse ox of 94%. Blood work that was done emergency department showed a white cell count of 5.2 with a hemoglobin of 13.6 and a platelet count of 105. He had a component of an acute kidney injury. His K level was at 6.2 this morning with a sodium level of 133, BUN of 57 with a creatinine of 1.39 which came up to 1.47. LFTs were mildly disturbed with an AST of 76, ALT of 59 and alkaline phosphatase of 161. Troponins are negative. The patient was found to have an acute RSV infection. The viral screen was positive for history. Based on that, the patient was hospitalized and a pulmonary consultation was requested. Nephrology consultation was also requested regarding this acute kidney injury Chest x-ray was reviewed and it shows diminished lung volumes bilaterally, pulm vasculature was within normal limits. Some limited left midlung infiltrate versus atelectasis was noted. This patient has an extensive history and multiple medical problems and comorbidities. For that reason, the patient has been essentially maintained at [facility]. The patient was treated back in January 2024 for a severe gangrenous right lower extremity and the patient underwent a above-knee amputation and subsequent antibiotic treatment for MRSA and Proteus. He is known to have COPD, severe peripheral vascular disease and he has already undergone a previous left above-knee amputation on the left. He has chronic A- fib, hypertension, severe ischemic cardiomyopathy with a previous echocardiogram showing an ejection fraction 40 to 45%, type 2 diabetes mellitus, chronic kidney disease, stage II, BPH and he also suffers from hypertension, BPH, obstructive sleep apnea, for which she has been maintained on CPAP therapy, chronic fatty liver disease and gout. Patient was seen today on 10/01/2024, patient was transferred to the ICU last night, he developed apparently obtundation, hypercapnia, and significantly elevated pCO2 with low pH, required placement on BiPAP 16/5/50% ABG showed a pO2 this morning of 103 pCO2 72 pH of 7.23, ABG prior showed a pO2 of 60 pCO2 of 93 pH of 7.12 prior to placement on BiPAP. Patient remains obtunded, arousable, but does not follow instructions. Remains on IV Solu-Medrol at 40 every 8, remains on antibiotics and is also on Eliquis, chest x-ray showed left lower lobe atelectasis/and or infiltrate. WBC count is 5.7 hemoglobin 13.8 electrolytes are normal potassium is down to 5.2 BUN is 64 creatinine 1.71 glucose 459 patient had positive RSV screening by PCR. Procalcitonin level is 0.22. Apparently the patient was obtunded last night, seen by the a team and he was transferred to the ICU at 630 this morning and placed on BiPAP 16/5/50% however I cut him down to 40%. IV fluid is 0.9 normal saline at 60 cc/h Patient was seen today on 10/02/2024, remains in the ICU, we were able to transition him to 4 L nasal cannula, he is on insulin at 5.1 units/h he is off BiPAP, 0.9 normal saline at 60 cc/h. Last night he was on BiPAP 16/5/40%. Remains on antibiotics, remains on Eliquis, significant improvement compared to yesterday. I felt yesterday he was close to be intubated and mechanically ventilated if he did not do well with BiPAP. Apparently the patient did well overnight and now he is on nasal cannula. WBC count is 6.27 hemoglobin is 12.9 electrolytes are normal BUN is 68 creatinine is coming down to 1.33, patient had positive RSV PCR on admission. Chest x-ray is showing improving infiltrate in the left lower lobe. Seen today on 10/03/2024, remains in the ICU, he had to go on BiPAP yesterday 16/5/40%, this morning the patient is more awake, alert and appropriate, he was transitioned to 6 L nasal cannula. Patient seems to be comfortable, not in any distress. CBC is relatively normal, basic metabolic profile is normal except for slightly elevated potassium of 5.4, BUN is 75 creatinine is 1.44 close to his baseline. Chest x-ray today continues show left basilar atelectasis and possibly a small pleural effusion. Patient was seen today on 10/04/2024, patient was transferred out of the ICU today, was on BiPAP last night but today he is on nasal cannula at 2 L/min and O2 sat is 94%, he is hemodynamically stable, patient denies any shortness of breath or cough or wheezing. Patient is morbidly obese, and he is known to have history of obstructive sleep apnea patient is a alf resident. WBC count is 3.1 hemoglobin 12.2 potassium is 5.2 BUN is 71 creatinine 1.36, improving blood sugar is 283 Seen today on 10/05/2024, patient is doing well, he is requiring BiPAP intermittently, but overall significant improvement noted since admission. He is awake today, not in any distress, on BiPAP. Continues to have slightly elevated potassium of 5.5, renal profile showed BUN of 64 creatinine 0.99, bicarb is 26 CBC is relatively normal. Chest x-ray done yesterday showed worsening atelectasis and possibly a small left pleural effusion hence I am recommending an ultrasound of the chest on this patient. Considering the worsening chest x-ray, patient may not be ready for discharge planning at this point. This needs to be further addressed, again I am recommending ultrasound, patient may have to be more often on BiPAP as the patient has very shallow breathing when he is not on BiPAP. And he has low volumes contributing to his left lower lobe atelectasis. Objective - Vital Signs Vital signs: Vital Signs Temp 97.5 F L 10/05/24 11:33 Pulse 71 10/05/24 11:33 Resp 28 H 10/05/24 11:33 BP 128/74 10/05/24 11:33 Pulse Ox 98 10/05/24 11:33 FiO2 40 10/05/24 09:46 Intake & Output 10/04/24 10/05/24 10/05/24 18:59 06:59 18:59 Intake Total 400 40 400 Output Total 1600 1450 1400 Balance -1200 -1410 -1000 Weight 115.5 kg Intake: IV 40 40 40 Invasive Line 4 20 20 20 Invasive Line 5 20 20 20 Oral 360 360 Output: Urine 1600 1450 1400 Other: Voiding Method External Catheter External Catheter External Catheter # Voids 1 - Exam General Revealed 74-year-old white male obese awake, alert oriented x 3 on BiPAP this morning HEENT: Neck Short obese neck, no neck masses no thyromegaly, PERRLA, EOMI, nonicteric. Moist mucous membranes Lungs: Diminished breath sound bilaterally more so at the left base no crackles rhonchi or wheezes Chest Wall: Symmetrical chest expansion no chest wall tenderness Heart: Distant S1-S2, no S3 gallop. 2/6 systolic murmur throughout the precordium Abdomen: Morbidly obese, soft, non-tender, bowel sounds active all four quadrants, no masses, no organomegaly. Extremities: Bilateral above-knee amputations Skin: No rashes. Neurologic: Alert oriented x 3, no gross focal deficit. - Labs CBC & Chem 7: 10/05/24 06:02 10/05/24 08:15 Labs: Abnormal Lab Results - Last 24 Hours (Table) 10/04/24 10/04/24 10/05/24 Range/Units 16:28 20:08 06:02 WBC 2.98 L (4.50-10.00) 10*3/uL RBC 3.65 L (4.40-5.60) 10*6/uL Hgb 12.3 L (13.0-17.0) g/dL Hct 38.0 L (39.6-50.0) % MCV 104.1 H (80.0-97.0) fL MCH 33.7 H (27.0-32.0) pg Plt Count 65 L (140-440) 10*3/uL Lymphocytes # 0.44 L (0.90-5.00) 10*3/uL Eosinophils # 0.00 L (0.04-0.35) 10*3/uL Sodium (137-145) mmol/L Potassium (3.5-5.1) mmol/L BUN (9-20) mg/dL Glucose (74-99) mg/dL POC Glucose (mg/dL) 360 H 306 H (70-110) mg/dL Magnesium (1.6-2.3) mg/dL 10/05/24 10/05/24 10/05/24 Range/Units 06:02 07:19 11:07 WBC (4.50-10.00) 10*3/uL RBC (4.40-5.60) 10*6/uL Hgb (13.0-17.0) g/dL Hct (39.6-50.0) % MCV (80.0-97.0) fL MCH (27.0-32.0) pg Plt Count (140-440) 10*3/uL Lymphocytes # (0.90-5.00) 10*3/uL Eosinophils # (0.04-0.35) 10*3/uL Sodium 135 L (137-145) mmol/L Potassium 5.5 H (3.5-5.1) mmol/L BUN 64 H (9-20) mg/dL Glucose 196 H (74-99) mg/dL POC Glucose (mg/dL) 256 H 214 H (70-110) mg/dL Magnesium 2.4 H (1.6-2.3) mg/dL Assessment and Plan Assessment: Impression: Acute hypoxic and hypercapnic respiratory failure, multifactorial as noted below Acute RSV infection Acute on chronic stage II kidney disease Acute hyperkalemia, related to DEBORA inhibitors, Aldactone and acute kidney injury on top of chronic kidney disease, in addition to severe respiratory acidosis with low pH Acute exacerbation of COPD Obstructive sleep apnea Obesity hypoventilation syndrome Chronic A-fib CHF with reduced LV function with an EF of around 40 to 45% and severe pulm hypertension with estimated PA pressure of around 57 based on echocardiogram done on 01/23/2024 Severe PAD Diabetes mellitus type 2 Degenerative arthritis Gout Fatty liver disease Hypertension Bilateral below-knee amputations Acute metabolic encephalopathy mostly related to his hypercapnia improving with BiPAP. Left lower lobe atelectasis, possible pleural effusion Recommendation: Patient not ready for discharge Continue BiPAP frequently, and at bedtime Order ultrasound of the chest to evaluate left pleural effusion and/or atelectasis I believe this is mostly atelectasis of the left lower lobe Continue O2 via nasal cannula titrate FiO2 down maintain O2 saturation just above 88% Continue bronchodilators Continue insulin Continue DuoNeb updrafts Continue prednisone at 20 mg daily Continue to titrate oxygen accordingly on BiPAP. Continue droplet isolation patient tested positive for RSV on admission Continue Eliquis Continue antibiotics Continue GI and DVT prophylaxis patient is on pantoprazole is also on Eliquis Prognosis is relatively poor and guarded Will continue to follow Time with Patient: Less than 30
--- NOTE | 2024-10-05 15:18 | US ---
EXAMINATION TYPE: US chest DATE OF EXAM: 10/05/2024 COMPARISON: Multiple chest XR, most recent 10/05/2024 CLINICAL INDICATION: Male, 74 years old with history of Markings for thoracentesis by pulmonary staff ; RSV TECHNIQUE: Grayscale imaging of the chest. Targeted ultrasound of the posterior lower bilateral francisco thoraces FINDINGS: EXAM MEASUREMENTS: Right Pleural Effusion pocket size: 2.3 cm Right skin surface to fluid distance: 0.5 cm Left Pleural Effusion pocket size: 2.7 cm Left skin surface to fluid distance: 0.9 cm No markings left Pulmonologists are able to review the images in the patient?s EMR. IMPRESSIONS: Trace bilateral pleural effusions. [facility], , 10/05/2024 3:16 PM
[2024-10-05 16:26] LABS: Glucose,Whole Blood 325 mg/dL (70-110)
[2024-10-05 20:10] LABS: Glucose,Whole Blood 354 mg/dL (70-110)
[2024-10-06 07:30] LABS: African American GFR (CKD) 70 (>60 ml/min/1.73 sqM); Anion Gap 4 mmol/L; Blood Urea Nitrogen 55 mg/dL (9-20); Calcium 8.5 mg/dL (8.4-10.2); Carbon Dioxide 34 mmol/L (22-30); Chloride 98 mmol/L (98-107); Glucose 251 mg/dL (74-99); Magnesium 2.3 mg/dL (1.6-2.3); Non-African American GFR(CKD) 60 (>60 ml/min/1.73 sqM); Potassium 4.9 mmol/L (3.5-5.1); Sodium 136 mmol/L (137-145)
[2024-10-06 07:40] LABS: Glucose,Whole Blood 234 mg/dL (70-110)
[2024-10-06] MEDS: FUROSEMIDE 20 MG TAB PO SCH (07:48)
[2024-10-06 11:32] LABS: Glucose,Whole Blood 304 mg/dL (70-110)
--- NOTE | 2024-10-06 11:38 | P.PN ---
Subjective Patient is seen for follow-up for acute kidney injury and hyperkalemia. No significant complaints today. Status post IV fluids Good urine output. Patient has an external catheter. Serum creatinine 1.2 today. Started on low-dose oral Lasix today. Objective - Vital Signs Vital signs: Vital Signs Temp 97.2 F L 10/06/24 07:39 Pulse 101 H 10/06/24 08:05 Resp 24 10/06/24 08:05 BP 121/86 10/06/24 07:39 Pulse Ox 92 L 10/06/24 07:39 FiO2 40 10/06/24 07:58 Intake & Output 10/05/24 10/06/24 10/06/24 18:59 06:59 18:59 Intake Total 580 40 260 Output Total 2300 900 600 Balance -1720 -860 -340 Weight 114 kg Intake: IV 40 40 20 Invasive Line 4 20 20 10 Invasive Line 5 20 20 10 Oral 540 240 Output: Urine 2300 900 600 Other: Voiding Method External Catheter External Catheter External Catheter - Exam Patient is awake, comfortable, no acute distress Examination of the heart S1 and S2 Examination of the lungs bilateral breath sounds are heard Abdomen is soft nontender Examination of lower extremities shows bilateral AKA - Labs CBC & Chem 7: 10/05/24 06:02 10/06/24 06:11 Labs: Abnormal Lab Results - Last 24 Hours (Table) 10/05/24 10/05/24 10/06/24 Range/Units 16:24 20:08 06:11 Sodium 136 L (137-145) mmol/L Carbon Dioxide 34 H (22-30) mmol/L BUN 55 H (9-20) mg/dL Glucose 251 H (74-99) mg/dL POC Glucose (mg/dL) 325 H 354 H (70-110) mg/dL 10/06/24 10/06/24 Range/Units 07:37 11:30 Sodium (137-145) mmol/L Carbon Dioxide (22-30) mmol/L BUN (9-20) mg/dL Glucose (74-99) mg/dL POC Glucose (mg/dL) 234 H 304 H (70-110) mg/dL Microbiology - Last 24 Hours (Table) 09/30/24 08:43 Blood Culture - Final Blood Assessment and Plan Assessment: 1. Acute kidney injury secondary to ATN secondary to severe sepsis. Creatinine peaked at 1.71 this admission and is 0.99 today. Baseline creatinine near 1. Kidney ultrasound was nondiagnostic. 2. Acute RSV pneumonia. 3. Hyperkalemia secondary to acute kidney injury, Aldactone and lisinopril. Also component of hyperglycemia. Improved. 4. Diabetes mellitus. s/p insulin drip. 5. Status post bilateral [id number] amputations. 6. Acute hypoxic and hypercapnic respiratory failure. Currently on nasal cannula. Plan: Continue with low-dose oral diuretics Repeat labs in a.m. Continue to hold DEBORA inhibitors for now.
[2024-10-06] MEDS: INSULIN LISPRO (HumaLOG) 100 UNIT/ML 10 mL VL SQ SCH (11:52)
--- NOTE | 2024-10-06 13:08 | P.PN ---
Subjective Progress Note Date: 10/06/24 Principal diagnosis: Acute hypoxic and hypercapnic respiratory failure This is a 74-year-old male patient was brought into the hospital with increased shortness of breath. The patient resides in [facility] and the patient was experiencing his dyspnea along with fever and cough and the symptoms have been going on for past couple of days. The patient denies having any chest pain. He came into the emergency and the patient was found to have a fever with a temperature of 101.7. Hemodynamically stable. He was hyper tensive. He is currently on 4 L of oxygen by nasal cannula with a pulse ox of 94%. Blood work that was done emergency department showed a white cell count of 5.2 with a hemoglobin of 13.6 and a platelet count of 105. He had a component of an acute kidney injury. His K level was at 6.2 this morning with a sodium level of 133, BUN of 57 with a creatinine of 1.39 which came up to 1.47. LFTs were mildly disturbed with an AST of 76, ALT of 59 and alkaline phosphatase of 161. Troponins are negative. The patient was found to have an acute RSV infection. The viral screen was positive for history. Based on that, the patient was hospitalized and a pulmonary consultation was requested. Nephrology consultation was also requested regarding this acute kidney injury Chest x-ray was reviewed and it shows diminished lung volumes bilaterally, pulm vasculature was within normal limits. Some limited left midlung infiltrate versus atelectasis was noted. This patient has an extensive history and multiple medical problems and comorbidities. For that reason, the patient has been essentially maintained at [facility]. The patient was treated back in January 2024 for a severe gangrenous right lower extremity and the patient underwent a above-knee amputation and subsequent antibiotic treatment for MRSA and Proteus. He is known to have COPD, severe peripheral vascular disease and he has already undergone a previous left above-knee amputation on the left. He has chronic A- fib, hypertension, severe ischemic cardiomyopathy with a previous echocardiogram showing an ejection fraction 40 to 45%, type 2 diabetes mellitus, chronic kidney disease, stage II, BPH and he also suffers from hypertension, BPH, obstructive sleep apnea, for which she has been maintained on CPAP therapy, chronic fatty liver disease and gout. Patient was seen today on 10/01/2024, patient was transferred to the ICU last night, he developed apparently obtundation, hypercapnia, and significantly elevated pCO2 with low pH, required placement on BiPAP 16/5/50% ABG showed a pO2 this morning of 103 pCO2 72 pH of 7.23, ABG prior showed a pO2 of 60 pCO2 of 93 pH of 7.12 prior to placement on BiPAP. Patient remains obtunded, arousable, but does not follow instructions. Remains on IV Solu-Medrol at 40 every 8, remains on antibiotics and is also on Eliquis, chest x-ray showed left lower lobe atelectasis/and or infiltrate. WBC count is 5.7 hemoglobin 13.8 electrolytes are normal potassium is down to 5.2 BUN is 64 creatinine 1.71 glucose 459 patient had positive RSV screening by PCR. Procalcitonin level is 0.22. Apparently the patient was obtunded last night, seen by the a team and he was transferred to the ICU at 630 this morning and placed on BiPAP 16/5/50% however I cut him down to 40%. IV fluid is 0.9 normal saline at 60 cc/h Patient was seen today on 10/02/2024, remains in the ICU, we were able to transition him to 4 L nasal cannula, he is on insulin at 5.1 units/h he is off BiPAP, 0.9 normal saline at 60 cc/h. Last night he was on BiPAP 16/5/40%. Remains on antibiotics, remains on Eliquis, significant improvement compared to yesterday. I felt yesterday he was close to be intubated and mechanically ventilated if he did not do well with BiPAP. Apparently the patient did well overnight and now he is on nasal cannula. WBC count is 6.27 hemoglobin is 12.9 electrolytes are normal BUN is 68 creatinine is coming down to 1.33, patient had positive RSV PCR on admission. Chest x-ray is showing improving infiltrate in the left lower lobe. Seen today on 10/03/2024, remains in the ICU, he had to go on BiPAP yesterday 16/5/40%, this morning the patient is more awake, alert and appropriate, he was transitioned to 6 L nasal cannula. Patient seems to be comfortable, not in any distress. CBC is relatively normal, basic metabolic profile is normal except for slightly elevated potassium of 5.4, BUN is 75 creatinine is 1.44 close to his baseline. Chest x-ray today continues show left basilar atelectasis and possibly a small pleural effusion. Patient was seen today on 10/04/2024, patient was transferred out of the ICU today, was on BiPAP last night but today he is on nasal cannula at 2 L/min and O2 sat is 94%, he is hemodynamically stable, patient denies any shortness of breath or cough or wheezing. Patient is morbidly obese, and he is known to have history of obstructive sleep apnea patient is a shelter resident. WBC count is 3.1 hemoglobin 12.2 potassium is 5.2 BUN is 71 creatinine 1.36, improving blood sugar is 283 Seen today on 10/05/2024, patient is doing well, he is requiring BiPAP intermittently, but overall significant improvement noted since admission. He is awake today, not in any distress, on BiPAP. Continues to have slightly elevated potassium of 5.5, renal profile showed BUN of 64 creatinine 0.99, bicarb is 26 CBC is relatively normal. Chest x-ray done yesterday showed worsening atelectasis and possibly a small left pleural effusion hence I am recommending an ultrasound of the chest on this patient. Considering the worsening chest x-ray, patient may not be ready for discharge planning at this point. This needs to be further addressed, again I am recommending ultrasound, patient may have to be more often on BiPAP as the patient has very shallow breathing when he is not on BiPAP. And he has low volumes contributing to his left lower lobe atelectasis. Seen today on 10/06/2024, patient remains on BiPAP, 16/5/40%, patient had an ultrasound of the chest yesterday to evaluate for possible left pleural effusion, there is not much fluid to drain, the findings are mostly findings of atelectasis and consolidation in the left lower lobe, I believe the patient has obesity/hypoventilation syndrome contributing to his atelectasis, and the patient will need incentive spirometry will need aggressive encouragement for deep coughing and deep breathing. And should use the BiPAP as often as possible. Labs today showed relatively normal electrolytes, BUN is 55 creat 1.20, slightly worse compared to yesterday but better than the days prior. Patient himself does not seem to be complaining of much of shortness of breath. Objective - Vital Signs Vital signs: Vital Signs Temp 97.2 F L 10/06/24 07:39 Pulse 88 10/06/24 12:53 Resp 16 10/06/24 12:53 BP 122/73 10/06/24 11:52 Pulse Ox 97 10/06/24 11:52 FiO2 40 10/06/24 12:38 Intake & Output 10/05/24 10/06/24 10/06/24 18:59 06:59 18:59 Intake Total 580 40 260 Output Total 2300 900 800 Balance -1720 -860 -540 Weight 114 kg Intake: IV 40 40 20 Invasive Line 4 20 20 10 Invasive Line 5 20 20 10 Oral 540 240 Output: Urine 2300 900 800 Other: Voiding Method External Catheter External Catheter External Catheter - Exam General Revealed 74-year-old white male obese awake, alert oriented x 3 on BiPAP 16//40% HEENT: Neck Short obese neck, no neck masses no thyromegaly, PERRLA, EOMI, nonicteric. Moist mucous membranes Lungs: Diminished breath sound bilaterally more so at the left base no crackles rhonchi or wheezes Chest Wall: Symmetrical chest expansion no chest wall tenderness Heart: Distant S1-S2, no S3 gallop. 2/6 systolic murmur throughout the precordium Abdomen: Morbidly obese, soft, non-tender, bowel sounds active all four quadrants, no masses, no organomegaly. Extremities: Bilateral above-knee amputations Skin: No rashes. Neurologic: Alert oriented x 3, no gross focal deficit. - Labs CBC & Chem 7: 10/05/24 06:02 10/06/24 06:11 Labs: Abnormal Lab Results - Last 24 Hours (Table) 10/05/24 10/05/24 10/06/24 Range/Units 16:24 20:08 06:11 Sodium 136 L (137-145) mmol/L Carbon Dioxide 34 H (22-30) mmol/L BUN 55 H (9-20) mg/dL Glucose 251 H (74-99) mg/dL POC Glucose (mg/dL) 325 H 354 H (70-110) mg/dL 10/06/24 10/06/24 Range/Units 07:37 11:30 Sodium (137-145) mmol/L Carbon Dioxide (22-30) mmol/L BUN (9-20) mg/dL Glucose (74-99) mg/dL POC Glucose (mg/dL) 234 H 304 H (70-110) mg/dL Microbiology - Last 24 Hours (Table) 09/30/24 08:43 Blood Culture - Final Blood Assessment and Plan Assessment: Impression: Acute hypoxic and hypercapnic respiratory failure, multifactorial as noted below Acute RSV infection Acute on chronic stage II kidney disease Acute hyperkalemia, related to DEBORA inhibitors, Aldactone and acute kidney injury on top of chronic kidney disease, in addition to severe respiratory acidosis with low pH Acute exacerbation of COPD Obstructive sleep apnea Obesity hypoventilation syndrome Chronic A-fib CHF with reduced LV function with an EF of around 40 to 45% and severe pulm hypertension with estimated PA pressure of around 57 based on echocardiogram done on 01/23/2024 Severe PAD Diabetes mellitus type 2 Degenerative arthritis Gout Fatty liver disease Hypertension Bilateral below-knee amputations Acute metabolic encephalopathy mostly related to his hypercapnia improving with BiPAP. Left lower lobe atelectasis, possible pleural effusion Recommendation: Continue BiPAP Patient not ready for discharge Encourage incentive spirometry Ultrasound chest was reviewed, not much fluid to consider thoracentesis continue oral prednisone 20 mg daily Continue O2 via nasal cannula titrate FiO2 down maintain O2 saturation just above 88% Continue bronchodilators Continue insulin Continue DuoNeb updrafts Continue prednisone at 20 mg daily Continue to titrate oxygen accordingly on BiPAP. Continue droplet isolation patient tested positive for RSV on admission Continue Eliquis Continue antibiotics Continue GI and DVT prophylaxis patient is on pantoprazole is also on Eliquis Prognosis is relatively poor and guarded Will continue to follow Time with Patient: Less than 30
[2024-10-06 16:12] LABS: Glucose,Whole Blood 289 mg/dL (70-110)
--- NOTE | 2024-10-06 17:41 | P.PN ---
Subjective Progress Note Date: 10/05/24 74-year-old gentleman with past medical history significant for atrial fibrillation, CAD, congestive heart failure, hypertension, hyperlipidemia, presents the ER after being sent in from [facility] for shortness of breath. Patient stated that he has been feeling sick for the last couple of days, complaining of shortness of breath at rest as on exertion, patient also complaining of cough. Patient also noted that he was having fever. There was no complaint of chills. Patient denied any chest pain. There was no complaint of orthopnea or PND there was no complaint of nausea, vomiting or abdominal pain. Because of this shortness of breath and fever, patient was sent to the ER Initial lab work done in the ER showed WBC 5.2, hemoglobin 13.6, platelet count 105, sodium 133, potassium 6.2, BUN 57, creatinine 1.39 glucose 349, lactate 1.4, AST 76, ALT 59, troponin 0.027 Influenza A not detected Influenza B not detected RSV detected COVID-19 not detected EKG done in the ER showed heart rate of 82, no ST segment elevation or depression seen, no T-wave inversions seen. Chest x-ray done in the ER showed left lower lobe infiltrate Patient admitted to internal medicine service Objective - Vital Signs Vital signs: Vital Signs Temp 97.5 F L 10/05/24 11:33 Pulse 71 10/05/24 11:33 Resp 28 H 10/05/24 11:33 BP 128/74 10/05/24 11:33 Pulse Ox 98 10/05/24 11:33 FiO2 40 10/05/24 09:46 Intake & Output 10/04/24 10/05/24 10/05/24 18:59 06:59 18:59 Intake Total 400 40 200 Output Total 1600 1450 500 Balance -1200 -1410 -300 Weight 115.5 kg Intake: IV 40 40 20 Invasive Line 4 20 20 10 Invasive Line 5 20 20 10 Oral 360 180 Output: Urine 1600 1450 500 Other: Voiding Method External Catheter External Catheter External Catheter # Voids 1 - Exam GENERAL: The patient is alert and oriented x3, not in any acute distress. Well developed, well nourished. HEENT: Pupils are round and equally reacting to light. EOMI. No scleral icterus. No conjunctival pallor. Normocephalic, atraumatic. No pharyngeal erythema. No t hyromegaly. CARDIOVASCULAR: S1 and S2 present. No murmurs, rubs, or gallops. -PULMONARY: Chest is clear to auscultation, scattered wheezing , mild bilateral crackles. ABDOMEN: Soft, nontender, nondistended, normoactive bowel sounds. No palpable organomegaly. MUSCULOSKELETAL: No joint swelling or deformity. EXTREMITIES: No cyanosis, clubbing, or pedal edema. NEUROLOGICAL: Gross neurological examination did not reveal any focal deficits. SKIN: No rashes. no petechiae. - Labs CBC & Chem 7: 10/05/24 06:02 10/06/24 06:11 Labs: Abnormal Lab Results - Last 24 Hours (Table) 10/04/24 10/04/24 10/05/24 Range/Units 16:28 20:08 06:02 WBC 2.98 L (4.50-10.00) 10*3/uL RBC 3.65 L (4.40-5.60) 10*6/uL Hgb 12.3 L (13.0-17.0) g/dL Hct 38.0 L (39.6-50.0) % MCV 104.1 H (80.0-97.0) fL MCH 33.7 H (27.0-32.0) pg Plt Count 65 L (140-440) 10*3/uL Lymphocytes # 0.44 L (0.90-5.00) 10*3/uL Eosinophils # 0.00 L (0.04-0.35) 10*3/uL Sodium (137-145) mmol/L Potassium (3.5-5.1) mmol/L BUN (9-20) mg/dL Glucose (74-99) mg/dL POC Glucose (mg/dL) 360 H 306 H (70-110) mg/dL Magnesium (1.6-2.3) mg/dL 10/05/24 10/05/24 10/05/24 Range/Units 06:02 07:19 11:07 WBC (4.50-10.00) 10*3/uL RBC (4.40-5.60) 10*6/uL Hgb (13.0-17.0) g/dL Hct (39.6-50.0) % MCV (80.0-97.0) fL MCH (27.0-32.0) pg Plt Count (140-440) 10*3/uL Lymphocytes # (0.90-5.00) 10*3/uL Eosinophils # (0.04-0.35) 10*3/uL Sodium 135 L (137-145) mmol/L Potassium 5.5 H (3.5-5.1) mmol/L BUN 64 H (9-20) mg/dL Glucose 196 H (74-99) mg/dL POC Glucose (mg/dL) 256 H 214 H (70-110) mg/dL Magnesium 2.4 H (1.6-2.3) mg/dL Assessment and Plan Assessment: Acute hypoxic respiratory failure RSV infection Acute COPD exacerbation Pneumonia Acute on chronic kidney injury stage II Chronic atrial fibrillation on Eliquis CHF with ejection fraction 40 to 45%, chronic Hypertension Hyperlipidemia Diabetes mellitus Obesity Severe peripheral artery disease History of gout Fatty liver History of bilateral BKA Plan: Continue with antibiotic Zithromax ceftriaxone as per pulmonary team Continue with Eliquis Continue with insulin and monitor glucose normal. Continue with the steroid, prednisone Continue with Normal Saline per ux design manager Monitor creatinine and hemoglobin Discontinue insulin drip and start Lantus 45 units and Humalog 10 units with meal and insulin sliding scale Several consultants on the case including ICU critical care pulmonary team, ux design manager DVT prophylaxis: Eliquis GI prophylaxis: Pepcid Prognosis is guarded
--- NOTE | 2024-10-06 17:48 | P.PN ---
Subjective Progress Note Date: 10/06/24 74-year-old gentleman with past medical history significant for atrial fibrillation, CAD, congestive heart failure, hypertension, hyperlipidemia, presents the ER after being sent in from [facility] for shortness of breath. Patient stated that he has been feeling sick for the last couple of days, complaining of shortness of breath at rest as on exertion, patient also complaining of cough. Patient also noted that he was having fever. There was no complaint of chills. Patient denied any chest pain. There was no complaint of orthopnea or PND there was no complaint of nausea, vomiting or abdominal pain. Because of this shortness of breath and fever, patient was sent to the ER Initial lab work done in the ER showed WBC 5.2, hemoglobin 13.6, platelet count 105, sodium 133, potassium 6.2, BUN 57, creatinine 1.39 glucose 349, lactate 1.4, AST 76, ALT 59, troponin 0.027 Influenza A not detected Influenza B not detected RSV detected COVID-19 not detected EKG done in the ER showed heart rate of 82, no ST segment elevation or depression seen, no T-wave inversions seen. Chest x-ray done in the ER showed left lower lobe infiltrate Patient admitted to internal medicine service 10/06/2024 - patient seen and evaluated in room at bedside; remains on BiPAP - patient had an ultrasound of the chest yesterday to evaluate for possible left pleural effusion, the findings are mostly findings of atelectasis and consolidation in the left lower lobe - Pulmonary service on board; patient has obesity/hypoventilation syndrome contributing to his atelectasis, pulmonary recommending incentive spirometry will need aggressive encouragement for deep coughing and deep breathing. Patien t is recommended to use the BiPAP as often as possible. - Blood work reveals WBC of 2.9, hemoglobin of 12.7 and platelet count of 65, sodium 136, potassium 4.9, BUNs/creatinine 55/1.20 and blood glucose of 251 - Patient admitted with acute hypoxic/hypercapnic respiratory failure with RSV infection resulting in acute exacerbation of COPD - Patient is to remain on BiPAP; has been transition to oral steroids prednisone 20 mg daily - Continue with droplet isolation given patient positive for RSV Objective - Vital Signs Vital signs: Vital Signs Temp 97.2 F L 10/06/24 07:39 Pulse 101 H 10/06/24 08:05 Resp 24 10/06/24 08:05 BP 121/86 10/06/24 07:39 Pulse Ox 92 L 10/06/24 07:39 FiO2 40 10/06/24 07:58 Intake & Output 10/05/24 10/06/24 10/06/24 18:59 06:59 18:59 Intake Total 580 40 260 Output Total 2300 900 600 Balance -1720 -860 -340 Weight 114 kg Intake: IV 40 40 20 Invasive Line 4 20 20 10 Invasive Line 5 20 20 10 Oral 540 240 Output: Urine 2300 900 600 Other: Voiding Method External Catheter External Catheter External Catheter - Exam GENERAL: The patient is alert and oriented x3, not in any acute distress. Well developed, well nourished. HEENT: Pupils are round and equally reacting to light. EOMI. No scleral icterus. No conjunctival pallor. Normocephalic, atraumatic. No pharyngeal erythema. No thyromegaly. CARDIOVASCULAR: S1 and S2 present. No murmurs, rubs, or gallops. -PULMONARY: Chest is clear to auscultation, scattered wheezing , mild bilateral crackles. ABDOMEN: Soft, nontender, nondistended, normoactive bowel sounds. No palpable organomegaly. MUSCULOSKELETAL: No joint swelling or deformity. EXTREMITIES: No cyanosis, clubbing, or pedal edema. NEUROLOGICAL: Gross neurological examination did not reveal any focal deficits. SKIN: No rashes. no petechiae. - Labs CBC & Chem 7: 10/05/24 06:02 10/06/24 06:11 Labs: Abnormal Lab Results - Last 24 Hours (Table) 10/05/24 10/05/24 10/06/24 Range/Units 16:24 20:08 06:11 Sodium 136 L (137-145) mmol/L Carbon Dioxide 34 H (22-30) mmol/L BUN 55 H (9-20) mg/dL Glucose 251 H (74-99) mg/dL POC Glucose (mg/dL) 325 H 354 H (70-110) mg/dL 10/06/24 Range/Units 07:37 Sodium (137-145) mmol/L Carbon Dioxide (22-30) mmol/L BUN (9-20) mg/dL Glucose (74-99) mg/dL POC Glucose (mg/dL) 234 H (70-110) mg/dL Microbiology - Last 24 Hours (Table) 09/30/24 08:43 Blood Culture - Final Blood Assessment and Plan Assessment: Acute hypoxic respiratory failure RSV infection Acute COPD exacerbation Pneumonia Acute on chronic kidney injury stage II Chronic atrial fibrillation on Eliquis CHF with ejection fraction 40 to 45%, chronic Hypertension Hyperlipidemia Diabetes mellitus Obesity Severe peripheral artery disease History of gout Fatty liver History of bilateral BKA Plan: Continue with antibiotic Zithromax ceftriaxone as per pulmonary team Continue with Eliquis Continue with insulin and monitor glucose normal. Continue with the steroid, prednisone Continue with Normal Saline per shopping investigator Monitor creatinine and hemoglobin Discontinue insulin drip and start Lantus 45 units and Humalog 10 units with meal and insulin sliding scale Several consultants on the case including ICU critical care pulmonary team, shopping investigator DVT prophylaxis: Eliquis GI prophylaxis: Pepcid Prognosis is guarded
[2024-10-06 20:12] LABS: Glucose,Whole Blood 354 mg/dL (70-110)
[2024-10-07 06:13] LABS: Glucose,Whole Blood 165 mg/dL (70-110)
[2024-10-07 06:33] LABS: Basophils # (A) 0.02 10*3/uL (0.00-0.10); Basophils % (A) 0.3 %; Eosinophils # (A) 0.08 10*3/uL (0.04-0.35); Eosinophils % (A) 1.4 %; HCT 40.4 % (39.6-50.0); HGB 12.9 g/dL (13.0-17.0); Lymphocytes % (A) 17.1 %; MCH 33.6 pg (27.0-32.0); MCHC 31.9 g/dL (32.0-37.0); Mean Platelet Volume 11.3 fL (9.5-12.2); Monocytes # (A) 0.35 10*3/uL (0.20-1.00); Neutrophils # (A) 4.31 10*3/uL (1.80-7.70); Neutrophils % (A) 73.7 %; RBC 3.84 10*6/uL (4.40-5.60); RDW 14.3 % (11.5-14.5); WBC 5.85 10*3/uL (4.50-10.00)
[2024-10-07 06:54] LABS: African American GFR (CKD) >90 (>60 ml/min/1.73 sqM); Anion Gap 3 mmol/L; Blood Urea Nitrogen 52 mg/dL (9-20); Calcium 8.2 mg/dL (8.4-10.2); Carbon Dioxide 36 mmol/L (22-30); Chloride 98 mmol/L (98-107); Glucose 159 mg/dL (74-99); Non-African American GFR(CKD) 88 (>60 ml/min/1.73 sqM); Sodium 137 mmol/L (137-145)
[2024-10-07 07:02] LABS: Potassium 5.3 mmol/L (3.5-5.1)
[2024-10-07 07:13] LABS: MCV 105.2 fL (80.0-97.0); Platelet Count 77 10*3/uL (140-440)
[2024-10-07 07:24] LABS: Glucose,Whole Blood 155 mg/dL (70-110)
[2024-10-07] MEDS: polyethylene glycoL 3350 17 GM POWD.PACK PO SCH (09:30)
[2024-10-07] MEDS ORDERED: ZINC OXIDE PASTE (Z-GUARD) 1 APPLIC TOPICAL PRN (09:40)
[2024-10-07 11:40] LABS: Glucose,Whole Blood 228 mg/dL (70-110)
--- NOTE | 2024-10-07 11:42 | P.PN ---
Subjective Patient is seen for follow-up for acute kidney injury and hyperkalemia. No significant complaints today. Patient is in the shower. Good urine output. Patient has an external catheter. Bladder scan does not show any urine retention. Serum creatinine down to 0.8 mg/dL. Potassium 5.3 Objective - Vital Signs Vital signs: Vital Signs Temp 97.6 F 10/07/24 07:36 Pulse 83 10/07/24 11:15 Resp 19 10/07/24 11:15 BP 99/68 10/07/24 11:15 Pulse Ox 96 10/07/24 11:15 FiO2 40 10/07/24 03:40 Intake & Output 10/06/24 10/07/24 10/07/24 18:59 06:59 18:59 Intake Total 640 240 Output Total 1450 550 Balance -810 -550 240 Weight 115.5 kg Intake: IV 40 Invasive Line 4 20 Invasive Line 5 20 Oral 600 240 Output: Urine 1450 550 Other: Voiding Method External Catheter External Catheter External Catheter - Exam Patient is not examined. He is in the shower - Labs CBC & Chem 7: 10/07/24 05:42 10/07/24 05:42 Labs: Abnormal Lab Results - Last 24 Hours (Table) 10/06/24 10/06/24 10/07/24 Range/Units 16:10 20:11 05:42 RBC 3.84 L (4.40-5.60) 10*6/uL Hgb 12.9 L (13.0-17.0) g/dL MCV 105.2 H (80.0-97.0) fL MCH 33.6 H (27.0-32.0) pg MCHC 31.9 L (32.0-37.0) g/dL Plt Count 77 L (140-440) 10*3/uL Immature Gran # 0.09 H (0.00-0.04) 10*3/uL Potassium (3.5-5.1) mmol/L Carbon Dioxide (22-30) mmol/L BUN (9-20) mg/dL Glucose (74-99) mg/dL POC Glucose (mg/dL) 289 H 354 H (70-110) mg/dL Calcium (8.4-10.2) mg/dL 04/13/25 04/13/25 04/13/25 Range/Units 05:42 06:10 07:19 RBC (4.40-5.60) 10*6/uL Hgb (13.0-17.0) g/dL MCV (80.0-97.0) fL MCH (27.0-32.0) pg MCHC (32.0-37.0) g/dL Plt Count (140-440) 10*3/uL Immature Gran # (0.00-0.04) 10*3/uL Potassium 5.3 H (3.5-5.1) mmol/L Carbon Dioxide 36 H (22-30) mmol/L BUN 52 H (9-20) mg/dL Glucose 159 H (74-99) mg/dL POC Glucose (mg/dL) 165 H 155 H (70-110) mg/dL Calcium 8.2 L (8.4-10.2) mg/dL Assessment and Plan Assessment: 1. Acute kidney injury secondary to ATN secondary to severe sepsis. Creatinine peaked at 1.71 this admission and is 0.99 today. Baseline creatinine near 1. Kidney ultrasound was nondiagnostic. 2. Acute RSV pneumonia. 3. Hyperkalemia secondary to acute kidney injury, Aldactone and lisinopril. Also component of hyperglycemia. Improved. 4. Diabetes mellitus. s/p insulin drip. 5. Status post bilateral [id number] amputations. 6. Acute hypoxic and hypercapnic respiratory failure. Maintained on nasal cannula and BiPAP on and off Plan: Continue with low-dose oral diuretics Repeat labs in a.m. Continue to hold DEBORA inhibitors for now.
--- NOTE | 2024-10-07 11:54 | P.PN ---
Subjective Progress Note Date: 10/07/24 Principal diagnosis: Acute hypoxic and hypercapnic respiratory failure This is a 74-year-old male patient was brought into the hospital with increased shortness of breath. The patient resides in [facility] and the patient was experiencing his dyspnea along with fever and cough and the symptoms have been going on for past couple of days. The patient denies having any chest pain. He came into the emergency and the patient was found to have a fever with a temperature of 101.7. Hemodynamically stable. He was hyper tensive. He is currently on 4 L of oxygen by nasal cannula with a pulse ox of 94%. Blood work that was done emergency department showed a white cell count of 5.2 with a hemoglobin of 13.6 and a platelet count of 105. He had a component of an acute kidney injury. His K level was at 6.2 this morning with a sodium level of 133, BUN of 57 with a creatinine of 1.39 which came up to 1.47. LFTs were mildly disturbed with an AST of 76, ALT of 59 and alkaline phosphatase of 161. Troponins are negative. The patient was found to have an acute RSV infection. The viral screen was positive for history. Based on that, the patient was hospitalized and a pulmonary consultation was requested. Nephrology consultation was also requested regarding this acute kidney injury Chest x-ray was reviewed and it shows diminished lung volumes bilaterally, pulm vasculature was within normal limits. Some limited left midlung infiltrate versus atelectasis was noted. This patient has an extensive history and multiple medical problems and comorbidities. For that reason, the patient has been essentially maintained at [facility]. The patient was treated back in January 2024 for a severe gangrenous right lower extremity and the patient underwent a above-knee amputation and subsequent antibiotic treatment for MRSA and Proteus. He is known to have COPD, severe peripheral vascular disease and he has already undergone a previous left above-knee amputation on the left. He has chronic A- fib, hypertension, severe ischemic cardiomyopathy with a previous echocardiogram showing an ejection fraction 40 to 45%, type 2 diabetes mellitus, chronic kidney disease, stage II, BPH and he also suffers from hypertension, BPH, obstructive sleep apnea, for which she has been maintained on CPAP therapy, chronic fatty liver disease and gout. Patient was seen today on 10/01/2024, patient was transferred to the ICU last night, he developed apparently obtundation, hypercapnia, and significantly elevated pCO2 with low pH, required placement on BiPAP 16/5/50% ABG showed a pO2 this morning of 103 pCO2 72 pH of 7.23, ABG prior showed a pO2 of 60 pCO2 of 93 pH of 7.12 prior to placement on BiPAP. Patient remains obtunded, arousable, but does not follow instructions. Remains on IV Solu-Medrol at 40 every 8, remains on antibiotics and is also on Eliquis, chest x-ray showed left lower lobe atelectasis/and or infiltrate. WBC count is 5.7 hemoglobin 13.8 electrolytes are normal potassium is down to 5.2 BUN is 64 creatinine 1.71 glucose 459 patient had positive RSV screening by PCR. Procalcitonin level is 0.22. Apparently the patient was obtunded last night, seen by the a team and he was transferred to the ICU at 630 this morning and placed on BiPAP 16/5/50% however I cut him down to 40%. IV fluid is 0.9 normal saline at 60 cc/h Patient was seen today on 10/02/2024, remains in the ICU, we were able to transition him to 4 L nasal cannula, he is on insulin at 5.1 units/h he is off BiPAP, 0.9 normal saline at 60 cc/h. Last night he was on BiPAP 16/5/40%. Remains on antibiotics, remains on Eliquis, significant improvement compared to yesterday. I felt yesterday he was close to be intubated and mechanically ventilated if he did not do well with BiPAP. Apparently the patient did well overnight and now he is on nasal cannula. WBC count is 6.27 hemoglobin is 12.9 electrolytes are normal BUN is 68 creatinine is coming down to 1.33, patient had positive RSV PCR on admission. Chest x-ray is showing improving infiltrate in the left lower lobe. Seen today on 10/03/2024, remains in the ICU, he had to go on BiPAP yesterday 16/5/40%, this morning the patient is more awake, alert and appropriate, he was transitioned to 6 L nasal cannula. Patient seems to be comfortable, not in any distress. CBC is relatively normal, basic metabolic profile is normal except for slightly elevated potassium of 5.4, BUN is 75 creatinine is 1.44 close to his baseline. Chest x-ray today continues show left basilar atelectasis and possibly a small pleural effusion. Patient was seen today on 10/04/2024, patient was transferred out of the ICU today, was on BiPAP last night but today he is on nasal cannula at 2 L/min and O2 sat is 94%, he is hemodynamically stable, patient denies any shortness of breath or cough or wheezing. Patient is morbidly obese, and he is known to have history of obstructive sleep apnea patient is a custodial resident. WBC count is 3.1 hemoglobin 12.2 potassium is 5.2 BUN is 71 creatinine 1.36, improving blood sugar is 283 Seen today on 10/05/2024, patient is doing well, he is requiring BiPAP intermittently, but overall significant improvement noted since admission. He is awake today, not in any distress, on BiPAP. Continues to have slightly elevated potassium of 5.5, renal profile showed BUN of 64 creatinine 0.99, bicarb is 26 CBC is relatively normal. Chest x-ray done yesterday showed worsening atelectasis and possibly a small left pleural effusion hence I am recommending an ultrasound of the chest on this patient. Considering the worsening chest x-ray, patient may not be ready for discharge planning at this point. This needs to be further addressed, again I am recommending ultrasound, patient may have to be more often on BiPAP as the patient has very shallow breathing when he is not on BiPAP. And he has low volumes contributing to his left lower lobe atelectasis. Seen today on 10/06/2024, patient remains on BiPAP, 16/5/40%, patient had an ultrasound of the chest yesterday to evaluate for possible left pleural effusion, there is not much fluid to drain, the findings are mostly findings of atelectasis and consolidation in the left lower lobe, I believe the patient has obesity/hypoventilation syndrome contributing to his atelectasis, and the patient will need incentive spirometry will need aggressive encouragement for deep coughing and deep breathing. And should use the BiPAP as often as possible. Labs today showed relatively normal electrolytes, BUN is 55 creat 1.20, slightly worse compared to yesterday but better than the days prior. Patient himself does not seem to be complaining of much of shortness of breath. Seen today on 10/07/2024, patient is on nasal cannula today, off BiPAP, seems to be doing better, breathing easier, he has a good cough, seems to be alert and oriented, yesterday I was quite concerned about his significant atelectasis noted in the left lower lobe no effusion noticed on ultrasound of the chest. Patient has WBC of 5.8 hemoglobin 12.9 electrolytes are normal except for potassium of 5.3 potassium 52 creatinine 0.84. Will definitely need follow-up chest x-ray in the next 24 hours. Objective - Vital Signs Vital signs: Vital Signs Temp 97.6 F 10/07/24 07:36 Pulse 83 10/07/24 11:15 Resp 19 10/07/24 11:15 BP 99/68 10/07/24 11:15 Pulse Ox 96 10/07/24 11:15 FiO2 40 10/07/24 03:40 Intake & Output 10/06/24 10/07/24 10/07/24 18:59 06:59 18:59 Intake Total 640 240 Output Total 1450 550 Balance -810 -550 240 Weight 115.5 kg Intake: IV 40 Invasive Line 4 20 Invasive Line 5 20 Oral 600 240 Output: Urine 1450 550 Other: Voiding Method External Catheter External Catheter External Catheter - Exam General Revealed 74-year-old white male obese awake, alert oriented x 3 on nasal cannula at 3 L, however he is intermittently on BiPAP. HEENT: Neck Short obese neck, no neck masses no thyromegaly, PERRLA, EOMI, nonicteric. Moist mucous membranes Lungs: Diminished breath sound bilaterally more so at the left base no crackles rhonchi or wheezes Chest Wall: Symmetrical chest expansion no chest wall tenderness Heart: Distant S1-S2, no S3 gallop. 2/6 systolic murmur throughout the precordium Abdomen: Morbidly obese, soft, non-tender, bowel sounds active all four quadrants, no masses, no organomegaly. Extremities: Bilateral above-knee amputations Skin: No rashes. Neurologic: Alert oriented x 3, no gross focal deficit. - Labs CBC & Chem 7: 10/07/24 05:42 10/07/24 05:42 Labs: Abnormal Lab Results - Last 24 Hours (Table) 10/06/24 10/06/24 10/07/24 Range/Units 16:10 20:11 05:42 RBC 3.84 L (4.40-5.60) 10*6/uL Hgb 12.9 L (13.0-17.0) g/dL MCV 105.2 H (80.0-97.0) fL MCH 33.6 H (27.0-32.0) pg MCHC 31.9 L (32.0-37.0) g/dL Plt Count 77 L (140-440) 10*3/uL Immature Gran # 0.09 H (0.00-0.04) 10*3/uL Potassium (3.5-5.1) mmol/L Carbon Dioxide (22-30) mmol/L BUN (9-20) mg/dL Glucose (74-99) mg/dL POC Glucose (mg/dL) 289 H 354 H (70-110) mg/dL Calcium (8.4-10.2) mg/dL 10/07/24 10/07/24 10/07/24 Range/Units 05:42 06:10 07:19 RBC (4.40-5.60) 10*6/uL Hgb (13.0-17.0) g/dL MCV (80.0-97.0) fL MCH (27.0-32.0) pg MCHC (32.0-37.0) g/dL Plt Count (140-440) 10*3/uL Immature Gran # (0.00-0.04) 10*3/uL Potassium 5.3 H (3.5-5.1) mmol/L Carbon Dioxide 36 H (22-30) mmol/L BUN 52 H (9-20) mg/dL Glucose 159 H (74-99) mg/dL POC Glucose (mg/dL) 165 H 155 H (70-110) mg/dL Calcium 8.2 L (8.4-10.2) mg/dL 10/07/24 Range/Units 11:31 RBC (4.40-5.60) 10*6/uL Hgb (13.0-17.0) g/dL MCV (80.0-97.0) fL MCH (27.0-32.0) pg MCHC (32.0-37.0) g/dL Plt Count (140-440) 10*3/uL Immature Gran # (0.00-0.04) 10*3/uL Potassium (3.5-5.1) mmol/L Carbon Dioxide (22-30) mmol/L BUN (9-20) mg/dL Glucose (74-99) mg/dL POC Glucose (mg/dL) 228 H (70-110) mg/dL Calcium (8.4-10.2) mg/dL Assessment and Plan Assessment: Impression: Acute hypoxic and hypercapnic respiratory failure, multifactorial as noted below Acute RSV infection Acute on chronic stage II kidney disease Acute hyperkalemia, related to DEBORA inhibitors, Aldactone and acute kidney injury on top of chronic kidney disease, in addition to severe respiratory acidosis with low pH Acute exacerbation of COPD Obstructive sleep apnea Obesity hypoventilation syndrome Chronic A-fib CHF with reduced LV function with an EF of around 40 to 45% and severe pulm hypertension with estimated PA pressure of around 57 based on echocardiogram done on 01/23/2024 Severe PAD Diabetes mellitus type 2 Degenerative arthritis Gout Fatty liver disease Hypertension Bilateral below-knee amputations Acute metabolic encephalopathy mostly related to his hypercapnia improving with BiPAP. Left lower lobe atelectasis, possible pleural effusion Recommendation: Continue oxygen and titrate accordingly patient is alternating between nasal cannula and BiPAP. Repeat chest x-ray in the a.m. for follow-up on his significant left lower lobe atelectasis Continue incentive spirometry Ultrasound chest was reviewed, not much fluid to consider thoracentesis continue oral prednisone 20 mg daily Continue O2 via nasal cannula titrate FiO2 down maintain O2 saturation just above 88% Continue bronchodilators Continue insulin Continue DuoNeb updrafts Continue prednisone at 20 mg daily Continue to titrate oxygen accordingly on BiPAP. Continue droplet isolation patient tested positive for RSV on admission Continue Eliquis Continue antibiotics Continue GI and DVT prophylaxis patient is on pantoprazole is also on Eliquis Prognosis is relatively poor and guarded, patient has multiple comorbidities overall long-term prognosis is poor. Will continue to follow Time with Patient: Less than 30
--- NOTE | 2024-10-07 14:47 | P.PN ---
Subjective Progress Note Date: 10/07/24 74-year-old gentleman with past medical history significant for atrial fibrillation, CAD, congestive heart failure, hypertension, hyperlipidemia, presents the ER after being sent in from [facility] for shortness of breath. Patient stated that he has been feeling sick for the last couple of days, complaining of shortness of breath at rest as on exertion, patient also complaining of cough. Patient also noted that he was having fever. There was no complaint of chills. Patient denied any chest pain. There was no complaint of orthopnea or PND there was no complaint of nausea, vomiting or abdominal pain. Because of this shortness of breath and fever, patient was sent to the ER Initial lab work done in the ER showed WBC 5.2, hemoglobin 13.6, platelet count 105, sodium 133, potassium 6.2, BUN 57, creatinine 1.39 glucose 349, lactate 1.4, AST 76, ALT 59, troponin 0.027 Influenza A not detected Influenza B not detected RSV detected COVID-19 not detected EKG done in the ER showed heart rate of 82, no ST segment elevation or depression seen, no T-wave inversions seen. Chest x-ray done in the ER showed left lower lobe infiltrate Patient admitted to internal medicine service 10/06/2024 - patient seen and evaluated in room at bedside; remains on BiPAP - patient had an ultrasound of the chest yesterday to evaluate for possible left pleural effusion, the findings are mostly findings of atelectasis and consolidation in the left lower lobe - Pulmonary service on board; patient has obesity/hypoventilation syndrome contributing to his atelectasis, pulmonary recommending incentive spirometry will need aggressive encouragement for deep coughing and deep breathing. Patien t is recommended to use the BiPAP as often as possible. - Blood work reveals WBC of 2.9, hemoglobin of 12.7 and platelet count of 65, sodium 136, potassium 4.9, BUNs/creatinine 55/1.20 and blood glucose of 251 - Patient admitted with acute hypoxic/hypercapnic respiratory failure with RSV infection resulting in acute exacerbation of COPD - Patient is to remain on BiPAP; has been transition to oral steroids prednisone 20 mg daily - Continue with droplet isolation given patient positive for RSV 10/07/2024 - patient seen and evaluated in room at bedside; currently on BiPAP, seems to be doing better, breathing easier, he has a good cough - Chest x-ray completed yesterday revealed significant atelectasis noted in the left lower lobe no effusion noticed on ultrasound of the chest. Pulmonary service recommending repeat chest x-ray in next 24 hours - Patient has WBC of 5.8 hemoglobin 12.9 electrolytes are normal except for potassium of 5.3 potassium 52 creatinine 0.84. Continue O2 via nasal cannula titrate FiO2 down maintain O2 saturation just above 88%; bronchodilators; insulin; DuoNeb updrafts Continue prednisone at 20 mg daily Continue to titrate oxygen accordingly on BiPAP. Objective - Vital Signs Vital signs: Vital Signs Temp 97.6 F 10/07/24 07:36 Pulse 67 10/07/24 07:36 Resp 18 10/07/24 07:36 BP 129/78 10/07/24 07:36 Pulse Ox 93 L 10/07/24 07:36 FiO2 40 10/07/24 03:40 Intake & Output 10/06/24 10/07/24 10/07/24 18:59 06:59 18:59 Intake Total 640 240 Output Total 1450 550 Balance -810 -550 240 Weight 115.5 kg Intake: IV 40 Invasive Line 4 20 Invasive Line 5 20 Oral 600 240 Output: Urine 1450 550 Other: Voiding Method External Catheter External Catheter External Catheter - Exam GENERAL: The patient is alert and oriented x3, not in any acute distress. Well developed, well nourished. HEENT: Pupils are round and equally reacting to light. EOMI. No scleral icterus. No conjunctival pallor. Normocephalic, atraumatic. No pharyngeal erythema. No thyromegaly. CARDIOVASCULAR: S1 and S2 present. No murmurs, rubs, or gallops. -PULMONARY: Chest is clear to auscultation, scattered wheezing , mild bilateral crackles. ABDOMEN: Soft, nontender, nondistended, normoactive bowel sounds. No palpable organomegaly. MUSCULOSKELETAL: No joint swelling or deformity. EXTREMITIES: No cyanosis, clubbing, or pedal edema. NEUROLOGICAL: Gross neurological examination did not reveal any focal deficits. SKIN: No rashes. no petechiae. - Labs CBC & Chem 7: 10/07/24 05:42 10/07/24 05:42 Labs: Abnormal Lab Results - Last 24 Hours (Table) 10/06/24 10/06/24 10/06/24 Range/Units 11:30 16:10 20:11 RBC (4.40-5.60) 10*6/uL Hgb (13.0-17.0) g/dL MCV (80.0-97.0) fL MCH (27.0-32.0) pg MCHC (32.0-37.0) g/dL Plt Count (140-440) 10*3/uL Immature Gran # (0.00-0.04) 10*3/uL Potassium (3.5-5.1) mmol/L Carbon Dioxide (22-30) mmol/L BUN (9-20) mg/dL Glucose (74-99) mg/dL POC Glucose (mg/dL) 304 H 289 H 354 H (70-110) mg/dL Calcium (8.4-10.2) mg/dL 10/07/24 10/07/24 10/07/24 Range/Units 05:42 05:42 06:10 RBC 3.84 L (4.40-5.60) 10*6/uL Hgb 12.9 L (13.0-17.0) g/dL MCV 105.2 H (80.0-97.0) fL MCH 33.6 H (27.0-32.0) pg MCHC 31.9 L (32.0-37.0) g/dL Plt Count 77 L (140-440) 10*3/uL Immature Gran # 0.09 H (0.00-0.04) 10*3/uL Potassium 5.3 H (3.5-5.1) mmol/L Carbon Dioxide 36 H (22-30) mmol/L BUN 52 H (9-20) mg/dL Glucose 159 H (74-99) mg/dL POC Glucose (mg/dL) 165 H (70-110) mg/dL Calcium 8.2 L (8.4-10.2) mg/dL 10/07/24 Range/Units 07:19 RBC (4.40-5.60) 10*6/uL Hgb (13.0-17.0) g/dL MCV (80.0-97.0) fL MCH (27.0-32.0) pg MCHC (32.0-37.0) g/dL Plt Count (140-440) 10*3/uL Immature Gran # (0.00-0.04) 10*3/uL Potassium (3.5-5.1) mmol/L Carbon Dioxide (22-30) mmol/L BUN (9-20) mg/dL Glucose (74-99) mg/dL POC Glucose (mg/dL) 155 H (70-110) mg/dL Calcium (8.4-10.2) mg/dL
[2024-10-07 16:30] LABS: Glucose,Whole Blood 286 mg/dL (70-110)
[2024-10-07 20:11] LABS: Glucose,Whole Blood 409 mg/dL (70-110)
[2024-10-08 06:02] LABS: Basophils # (A) 0.01 10*3/uL (0.00-0.10); Basophils % (A) 0.1 %; Eosinophils % (A) 1.2 %; HCT 39.1 % (39.6-50.0); HGB 12.3 g/dL (13.0-17.0); Lymphocytes # (A) 0.77 10*3/uL (0.90-5.00); Lymphocytes % (A) 9.2 %; MCH 33.2 pg (27.0-32.0); MCHC 31.5 g/dL (32.0-37.0); Monocytes # (A) 0.38 10*3/uL (0.20-1.00); Monocytes % (A) 4.5 %; Neutrophils # (A) 7.03 10*3/uL (1.80-7.70); Neutrophils % (A) 83.6 %; RDW 14.6 % (11.5-14.5); WBC 8.41 10*3/uL (4.50-10.00)
[2024-10-08 06:15] LABS: Glucose,Whole Blood 220 mg/dL (70-110)
[2024-10-08 06:18] LABS: MCV 105.7 fL (80.0-97.0)
[2024-10-08 06:19] LABS: Platelet Count 79 10*3/uL (140-440)
[2024-10-08 06:27] LABS: African American GFR (CKD) >90 (>60 ml/min/1.73 sqM); Anion Gap 4 mmol/L; Blood Urea Nitrogen 62 mg/dL (9-20); Calcium 8.4 mg/dL (8.4-10.2); Carbon Dioxide 33 mmol/L (22-30); Chloride 97 mmol/L (98-107); Glucose 192 mg/dL (74-99); Non-African American GFR(CKD) 86 (>60 ml/min/1.73 sqM); Potassium 5.6 mmol/L (3.5-5.1); Sodium 134 mmol/L (137-145)
--- NOTE | 2024-10-08 08:08 | XR ---
EXAMINATION TYPE: XR chest 1V portable DATE OF EXAM: 10/08/2024 6:46 AM COMPARISON: Chest radiographs from 10/04/2024 TECHNIQUE: XR chest 1V portable Portable AP radiograph of the chest. CLINICAL INDICATION:Male, 74 years old with history of lll atelectasis/consolidation; FINDINGS: Patient is rotated which limits evaluation. Lungs/Pleura: Trace bilateral pleural effusions. No pneumothorax. Improvement in previously demonstra anitra left mid to lower lung airspace opacities with left midlung linear atelectasis. Pulmonary vascularity: Unremarkable. Heart/mediastinum: Cardiomediastinal silhouette is enlarged and stable. Atherosclerotic calcificatio ns are seen in the aorta. Musculoskeletal: No acute osseous pathology. IMPRESSION: 1. Improvement in previously demonstrated left mid to lower lung airspace opacities with left midlun g linear atelectasis. 2. Trace bilateral pleural effusions. [facility], , 10/08/2024 8:06 AM
[2024-10-08 11:52] LABS: Glucose,Whole Blood 170 mg/dL (70-110)
[2024-10-08] MEDS: FUROSEMIDE 10 MG/ML 4 ML VIAL IV SCH (12:01)
--- NOTE | 2024-10-08 13:43 | P.PN ---
Subjective Progress Note Date: 10/08/24 Principal diagnosis: Pneumonia, COPD exacerbation. This is a 74-year-old male patient was brought into the hospital with increased shortness of breath. The patient resides in [facility] and the patient was experiencing his dyspnea along with fever and cough and the symptoms have been going on for past couple of days. The patient denies having any chest pain. He came into the emergency and the patient was found to have a fever with a temperature of 101.7. Hemodynamically stable. He was hyper tensive. He is currently on 4 L of oxygen by nasal cannula with a pulse ox of 94%. Blood work that was done emergency department showed a white cell count of 5.2 with a hemo globin of 13.6 and a platelet count of 105. He had a component of an acute kidney injury. His K level was at 6.2 this morning with a sodium level of 133, BUN of 57 with a creatinine of 1.39 which came up to 1.47. LFTs were mildly disturbed with an AST of 76, ALT of 59 and alkaline phosphatase of 161. Troponins are negative. The patient was found to have an acute RSV infection. The viral screen was positive for history. Based on that, the patient was hospitalized and a pulmonary consultation was requested. Nephrology consultation was also requested regarding this acute kidney injury Chest x-ray was reviewed and it shows diminished lung volumes bilaterally, pulm vasculature was within normal limits. Some limited left midlung infiltrate versus atelectasis was noted. This patient has an extensive history and multiple medical problems and comorbidities. For that reason, the patient has been essentially maintained at [facility]. The patient was treated back in January 2024 for a severe gangrenous right lower extremity and the patient underwent a above-knee amputation and subsequent antibiotic treatment for MRSA and Proteus. He is known to have COPD, severe peripheral vascular disease and he has already undergone a previous left above-knee amputation on the left. He has chronic A- fib, hypertension, severe ischemic cardiomyopathy with a previous echocardiogram showing an ejection fraction 40 to 45%, type 2 diabetes mellitus, chronic kidney disease, stage II, BPH and he also suffers from hypertension, BPH, obstructive sleep apnea, for which she has been maintained on CPAP therapy, chronic fatty liver disease and gout. Patient was seen today on 10/01/2024, patient was transferred to the ICU last night, he developed apparently obtundation, hypercapnia, and significantly elevated pCO2 with low pH, required placement on BiPAP 16/5/50% ABG showed a pO2 this morning of 103 pCO2 72 pH of 7.23, ABG prior showed a pO2 of 60 pCO2 of 93 pH of 7.12 prior to placement on BiPAP. Patient remains obtunded, arousable, but does not follow instructions. Remains on IV Solu-Medrol at 40 every 8, remains on antibiotics and is also on Eliquis, chest x-ray showed left lower lo be atelectasis/and or infiltrate. WBC count is 5.7 hemoglobin 13.8 electrolytes are normal potassium is down to 5.2 BUN is 64 creatinine 1.71 glucose 459 patient had positive RSV screening by PCR. Procalcitonin level is 0.22. Apparently the patient was obtunded last night, seen by the a team and he was transferred to the ICU at 630 this morning and placed on BiPAP 16/5/50% however I cut him down to 40%. IV fluid is 0.9 normal saline at 60 cc/h Patient was seen today on 10/02/2024, remains in the ICU, we were able to transition him to 4 L nasal cannula, he is on insulin at 5.1 units/h he is off BiPAP, 0.9 normal saline at 60 cc/h. Last night he was on BiPAP 16/5/40%. Remains on antibiotics, remains on Eliquis, significant improvement compared to yesterday. I felt yesterday he was close to be intubated and mechanically ventilated if he did not do well with BiPAP. Apparently the patient did well overnight and now he is on nasal cannula. WBC count is 6.27 hemoglobin is 12.9 electrolytes are normal BUN is 68 creatinine is coming down to 1.33, patient had positive RSV PCR on admission. Chest x-ray is showing improving infiltrate in the left lower lobe. Seen today on 10/03/2024, remains in the ICU, he had to go on BiPAP yesterday 16/5/40%, this morning the patient is more awake, alert and appropriate, he was transitioned to 6 L nasal cannula. Patient seems to be comfortable, not in any distress. CBC is relatively normal, basic metabolic profile is normal except for slightly elevated potassium of 5.4, BUN is 75 creatinine is 1.44 close to his baseline. Chest x-ray today continues show left basilar atelectasis and possibly a small pleural effusion. Patient was seen today on 10/04/2024, patient was transferred out of the ICU today, was on BiPAP last night but today he is on nasal cannula at 2 L/min and O2 sat is 94%, he is hemodynamically stable, patient denies any shortness of breath or cough or wheezing. Patient is morbidly obese, and he is known to have history of obstructive sleep apnea patient is a custodial resident. WBC count is 3.1 hemoglobin 12.2 potassium is 5.2 BUN is 71 creatinine 1.36, improving blood sugar is 283 Seen today on 10/05/2024, patient is doing well, he is requiring BiPAP intermittently, but overall significant improvement noted since admission. He is awake today, not in any distress, on BiPAP. Continues to have slightly eleva anitra potassium of 5.5, renal profile showed BUN of 64 creatinine 0.99, bicarb is 26 CBC is relatively normal. Chest x-ray done yesterday showed worsening atelectasis and possibly a small left pleural effusion hence I am recommending an ultrasound of the chest on this patient. Considering the worsening chest x- ray, patient may not be ready for discharge planning at this point. This needs to be further addressed, again I am recommending ultrasound, patient may have to be more often on BiPAP as the patient has very shallow breathing when he is not on BiPAP. And he has low volumes contributing to his left lower lobe atelectasis. Seen today on 10/06/2024, patient remains on BiPAP, 16/5/40%, patient had an ultrasound of the chest yesterday to evaluate for possible left pleural effusion, there is not much fluid to drain, the findings are mostly findings of atelectasis and consolidation in the left lower lobe, I believe the patient has obesity/hypoventilation syndrome contributing to his atelectasis, and the patient will need incentive spirometry will need aggressive encouragement for deep coughing and deep breathing. And should use the BiPAP as often as possible. Labs today showed relatively normal electrolytes, BUN is 55 creat 1.20, slightly worse compared to yesterday but better than the days prior. Patient himself does not seem to be complaining of much of shortness of breath. Seen today on 10/07/2024, patient is on nasal cannula today, off BiPAP, seems to be doing better, breathing easier, he has a good cough, seems to be alert and oriented, yesterday I was quite concerned about his significant atelectasis noted in the left lower lobe no effusion noticed on ultrasound of the chest. Patient has WBC of 5.8 hemoglobin 12.9 electrolytes are normal except for potassium of 5.3 potassium 52 creatinine 0.84. Will definitely need follow-up chest x-ray in the next 24 hours. Progress note dated October 08, 2024. 75-year-old male seen today in room 361. The patient is now been in the hospital for 8 days. He is resting comfortably in bed. He is on oxygen by nasal cannula 2 L. He does have the BiPAP in the room, and it was used at nighttime, with settings of 16/5, to 40%. The patient also did test positive for RSV. Current laboratory data includes a white count of 8.4, hemoglobin 12.3, hematocrit 39.1, and a platelet count of 79,000. Sodium 134, potassium 5.6, chloride 97, CO2 33, BUN 62, and creatinine 0.88. Glucose was 170. Calcium was 8.4. Chest x-ray shows significant improvement in the airspace disease, at the left midlung and left base. Objective - Vital Signs Vital signs: Vital Signs Temp 98.2 F 10/08/24 08:36 Pulse 118 H 10/08/24 11:43 Resp 18 10/08/24 11:43 BP 109/82 10/08/24 11:43 Pulse Ox 96 10/08/24 11:43 FiO2 40 10/08/24 04:34 Intake & Output 10/07/24 10/08/24 10/08/24 18:59 06:59 18:59 Intake Total 1440 Output Total 900 700 Balance 1440 -900 -700 Weight 110.5 kg Intake: Oral 1440 Output: Urine 900 700 Other: Voiding Method External Catheter External Catheter External Catheter # Voids 1 # Bowel Movements 1 1 1 - Exam No acute distress, oriented 3. Currently on 2 L of oxygen by nasal cannula. HEENT examination is grossly unremarkable. Mucous membranes are moist. No oral lesions. Neck supple. Full range of motion. No adenopathy thyromegaly or neck vein distention. Cardiovascular examination reveals regular rhythm rate. S1-S2 normal. No S3 or S4. Soft systolic murmur is noted. Lungs reveal mostly clear breath sounds. Minimal scattered rhonchi. No wheezes or crackles. Breath sounds are equal bilaterally. Abdomen soft bowel sounds are heard. No masses or tenderness. Extremities reveal bilateral [id number] amputations. Skin is without rash or lesion. Neurologic examination is brief but nonfocal. - Labs CBC & Chem 7: 10/08/24 05:19 10/08/24 05:19 Labs: Abnormal Lab Results - Last 24 Hours (Table) 10/07/24 10/07/24 10/08/24 Range/Units 16:14 20:10 05:19 RBC 3.70 L (4.40-5.60) 10*6/uL Hgb 12.3 L (13.0-17.0) g/dL Hct 39.1 L (39.6-50.0) % MCV 105.7 H (80.0-97.0) fL MCH 33.2 H (27.0-32.0) pg MCHC 31.5 L (32.0-37.0) g/dL Plt Count 79 L (140-440) 10*3/uL Immature Gran # 0.12 H (0.00-0.04) 10*3/uL Lymphocytes # 0.77 L (0.90-5.00) 10*3/uL Sodium (137-145) mmol/L Potassium (3.5-5.1) mmol/L Chloride (98-107) mmol/L Carbon Dioxide (22-30) mmol/L BUN (9-20) mg/dL Glucose (74-99) mg/dL POC Glucose (mg/dL) 286 H 409 H (70-110) mg/dL 10/08/24 10/08/24 10/08/24 Range/Units 05:19 06:14 11:51 RBC (4.40-5.60) 10*6/uL Hgb (13.0-17.0) g/dL Hct (39.6-50.0) % MCV (80.0-97.0) fL MCH (27.0-32.0) pg MCHC (32.0-37.0) g/dL Plt Count (140-440) 10*3/uL Immature Gran # (0.00-0.04) 10*3/uL Lymphocytes # (0.90-5.00) 10*3/uL Sodium 134 L (137-145) mmol/L Potassium 5.6 H (3.5-5.1) mmol/L Chloride 97 L (98-107) mmol/L Carbon Dioxide 33 H (22-30) mmol/L BUN 62 H (9-20) mg/dL Glucose 192 H (74-99) mg/dL POC Glucose (mg/dL) 220 H 170 H (70-110) mg/dL Assessment and Plan Assessment: Acute hypoxemic and hypercapnic respiratory failure. Acute RSV infection. Acute on chronic stage II kidney disease. Acute hyperkalemia, resolved. Acute COPD exacerbation. History of obstructive sleep apnea syndrome. Probable Pickwickian syndrome. Chronic atrial fibrillation. Congestive heart failure with reduced ejection fraction. Severe pulmonary hypertension. Severe PAD. Type 2 diabetes mellitus. Degenerative arthritis. Gout. Fatty liver disease. Benign essential hypertension. Bilateral below the knee amputation. Metabolic encephalopathy. Left lower lobe atelectasis, with left-sided pleural effusion. Plan: Plan dated October 08, 2024. The patient is seen today in room 361. The patient continues on nasal O2 2 L. The patient is currently on 2 L of oxygen, but he does use a BiPAP intermittently. The patient continues on appropriate medications including bronchodilators, prednisone, Eliquis, and antibiotics. Labs, x-rays, and all medications are reviewed. We will continue to follow make recommendations along the way. Overall prognosis remains guarded. We recommend continued use of the incentive spirometer, hourly, and deep breathing, coughing, and clearing of secretions. Dictation was produced using [employer] software. Please excuse any grammatical, word or spelling errors. Time with Patient: Less than 30
[2024-10-08 16:18] LABS: Glucose,Whole Blood 407 mg/dL (70-110)
--- NOTE | 2024-10-08 16:24 | P.PN ---
Subjective Patient is seen for follow-up for acute kidney injury and hyperkalemia. No significant complaints today. Good urine output. Patient has an external catheter. Bladder scan does not show any urine retention. Serum creatinine down to 0.8 mg/dL. Potassium 5.6 today. Blood sugar was 407. Objective - Vital Signs Vital signs: Vital Signs Temp 98.2 F 10/08/24 08:36 Pulse 88 10/08/24 15:45 Resp 18 10/08/24 15:45 BP 130/73 10/08/24 15:45 Pulse Ox 97 10/08/24 15:45 FiO2 40 10/08/24 16:15 Intake & Output 10/07/24 10/08/24 10/08/24 18:59 06:59 18:59 Intake Total 1440 Output Total 900 1600 Balance 1440 -900 -1600 Weight 110.5 kg Intake: Oral 1440 Output: Urine 900 1600 Other: Voiding Method External Catheter External Catheter External Catheter # Voids 1 # Bowel Movements 1 1 1 - Exam Patient is awake, comfortable, no acute distress Examination of the heart S1 and S2 Examination of the lungs bilateral breath sounds are heard Abdomen is soft obese nontender Examination lower extremity shows edema 3+ bilaterally with chronic skin changes [employer] exam grossly intact - Labs CBC & Chem 7: 10/08/24 05:19 10/08/24 05:19 Labs: Abnormal Lab Results - Last 24 Hours (Table) 10/07/24 10/07/24 10/08/24 Range/Units 16:14 20:10 05:19 RBC 3.70 L (4.40-5.60) 10*6/uL Hgb 12.3 L (13.0-17.0) g/dL Hct 39.1 L (39.6-50.0) % MCV 105.7 H (80.0-97.0) fL MCH 33.2 H (27.0-32.0) pg MCHC 31.5 L (32.0-37.0) g/dL Plt Count 79 L (140-440) 10*3/uL Immature Gran # 0.12 H (0.00-0.04) 10*3/uL Lymphocytes # 0.77 L (0.90-5.00) 10*3/uL Sodium (137-145) mmol/L Potassium (3.5-5.1) mmol/L Chloride (98-107) mmol/L Carbon Dioxide (22-30) mmol/L BUN (9-20) mg/dL Glucose (74-99) mg/dL POC Glucose (mg/dL) 286 H 409 H (70-110) mg/dL 10/08/24 10/08/24 10/08/24 Range/Units 05:19 06:14 11:51 RBC (4.40-5.60) 10*6/uL Hgb (13.0-17.0) g/dL Hct (39.6-50.0) % MCV (80.0-97.0) fL MCH (27.0-32.0) pg MCHC (32.0-37.0) g/dL Plt Count (140-440) 10*3/uL Immature Gran # (0.00-0.04) 10*3/uL Lymphocytes # (0.90-5.00) 10*3/uL Sodium 134 L (137-145) mmol/L Potassium 5.6 H (3.5-5.1) mmol/L Chloride 97 L (98-107) mmol/L Carbon Dioxide 33 H (22-30) mmol/L BUN 62 H (9-20) mg/dL Glucose 192 H (74-99) mg/dL POC Glucose (mg/dL) 220 H 170 H (70-110) mg/dL 10/08/24 Range/Units 16:17 RBC (4.40-5.60) 10*6/uL Hgb (13.0-17.0) g/dL Hct (39.6-50.0) % MCV (80.0-97.0) fL MCH (27.0-32.0) pg MCHC (32.0-37.0) g/dL Plt Count (140-440) 10*3/uL Immature Gran # (0.00-0.04) 10*3/uL Lymphocytes # (0.90-5.00) 10*3/uL Sodium (137-145) mmol/L Potassium (3.5-5.1) mmol/L Chloride (98-107) mmol/L Carbon Dioxide (22-30) mmol/L BUN (9-20) mg/dL Glucose (74-99) mg/dL POC Glucose (mg/dL) 407 H (70-110) mg/dL Assessment and Plan Assessment: 1. Acute kidney injury secondary to ATN secondary to severe sepsis. Creatinine peaked at 1.71 this admission and is 0.8 today. Baseline creatinine near 1. Kidney ultrasound was nondiagnostic. 2. Acute RSV pneumonia. 3. Hyperkalemia secondary to acute kidney injury, Aldactone and lisinopril. Also component of hyperglycemia. Improved but potassium is elevated at 5.6 today. No urine retention noted. Blood sugar was 407 contributing to the hyperglycemia. 4. Diabetes mellitus. s/p insulin drip. 5. Status post bilateral [id number] amputations. 6. Acute hypoxic and hypercapnic respiratory failure. Maintained on nasal can nula and BiPAP on and off Plan: Increase Lasix to 40 mg IV every 12 hours Repeat labs in a.m. Continue to hold DEBORA inhibitors for now.
--- NOTE | 2024-10-08 17:07 | CDI ---
Documentation Clarification Form Date: 10/08/2024 04:28:24 PM From: Darlin Garcia Phone: [phone] Admit Date: 09/30/2024 07:52:00 AM Patient Name: Lowell Barraza Visit Number: [id number] Discharge Date: ATTENTION: The Clinical Documentation Specialists (CDI) and [facility] Coding Staff appreciate your assistance in clarifying documentation. Please respond to the clarification below the line at the bottom and electronically sign. The CDI & [facility] Coding staff will review the response and follow-up if needed. Please note: Queries are made part of the Legal Health Record. If you have any questions, please contact the author of this message via ITS. Doctor: Luis Felipe Fraser MD Conflicting documentation has been found in the medical record. As attending physician, please provide clarification. Bacterial Pneumonia, HP, 09/30 Pneumonia, Medicine note, 10/06. Acute RSV Pneumonia, Nephrology note, 10/06 History/Risk Factors: 74 year old male presents to the ED from [facility] for shortness of breath, cough and noted to have a fever Medical history: Atrial Fibrillation, CAD, CHF, HTN, HLD and COPD. 09/30, HP. Clinical Indicators: 09/30, VSS: B/P 180/94, HR 79, Temp 101.7F Oral, RR 20, SpO2 97% 2L nc 09/30, CXR: Mild left lower lobe infiltrate. 10/01, CXR: Persistent left lower lobe acute infiltrate and or atelectasis 09/30 Serology: RSV (PCR) Detected A 09/30 Procalcitonin 0.22: ESR 34, Wbc 5.2 Treatment: 09/30 Ceftriaxone IVPB x 1; 09/30 Azithromycin IVPB x 1; 10/01 - 10/02 Azithromycin IVPB Daily x 2 bags. 10/01 10/03 Ceftriaxone IVPB Q24H x 4 bags, 10/04 Cefriaxone IVPB x 1 Bag, 09/30 Ventolin Inhalation x 1 , 09/30 Duoneb Inhalation x 1; 09/30 Solumedrol Iv x 1; 09/30 47 Solumedrol IV Q6H, Please clarify which diagnosis is most appropriate: [ x ] Bacterial Pneumonia [ ] Pneumonia [ ] RSV Pneumonia [ ] Other (please specify) [ ] Unable to determine (Template Last Revised: August 2020) MTDD
[2024-10-08 20:01] LABS: Glucose,Whole Blood 308 mg/dL (70-110)
--- NOTE | 2024-10-08 21:51 | P.PN ---
Subjective Progress Note Date: 10/08/24 74-year-old gentleman with past medical history significant for atrial fibrillation, CAD, congestive heart failure, hypertension, hyperlipidemia, presents the ER after being sent in from [facility] for shortness of breath. Patient stated that he has been feeling sick for the last couple of days, complaining of shortness of breath at rest as on exertion, patient also complaining of cough. Patient also noted that he was having fever. There was no complaint of chills. Patient denied any chest pain. There was no complaint of orthopnea or PND there was no complaint of nausea, vomiting or abdominal pain. Because of this shortness of breath and fever, patient was sent to the ER Initial lab work done in the ER showed WBC 5.2, hemoglobin 13.6, platelet count 105, sodium 133, potassium 6.2, BUN 57, creatinine 1.39 glucose 349, lactate 1.4, AST 76, ALT 59, troponin 0.027 Influenza A not detected Influenza B not detected RSV detected COVID-19 not detected EKG done in the ER showed heart rate of 82, no ST segment elevation or depression seen, no T-wave inversions seen. Chest x-ray done in the ER showed left lower lobe infiltrate Patient admitted to internal medicine service 10/06/2024 - patient seen and evaluated in room at bedside; remains on BiPAP - patient had an ultrasound of the chest yesterday to evaluate for possible left pleural effusion, the findings are mostly findings of atelectasis and consolidation in the left lower lobe - Pulmonary service on board; patient has obesity/hypoventilation syndrome contributing to his atelectasis, pulmonary recommending incentive spirometry will need aggressive encouragement for deep coughing and deep breathing. Patien t is recommended to use the BiPAP as often as possible. - Blood work reveals WBC of 2.9, hemoglobin of 12.7 and platelet count of 65, sodium 136, potassium 4.9, BUNs/creatinine 55/1.20 and blood glucose of 251 - Patient admitted with acute hypoxic/hypercapnic respiratory failure with RSV infection resulting in acute exacerbation of COPD - Patient is to remain on BiPAP; has been transition to oral steroids prednisone 20 mg daily - Continue with droplet isolation given patient positive for RSV 10/07/2024 - patient seen and evaluated in room at bedside; currently on BiPAP, seems to be doing better, breathing easier, he has a good cough - Chest x-ray completed yesterday revealed significant atelectasis noted in the left lower lobe no effusion noticed on ultrasound of the chest. Pulmonary service recommending repeat chest x-ray in next 24 hours - Patient has WBC of 5.8 hemoglobin 12.9 electrolytes are normal except for potassium of 5.3 potassium 52 creatinine 0.84. Continue O2 via nasal cannula titrate FiO2 down maintain O2 saturation just above 88%; bronchodilators; insulin; DuoNeb updrafts Continue prednisone at 20 mg daily Continue to titrate oxygen accordingly on BiPAP. 10/08/2024 Patient is awake and alert. Shortness of breath is improved. No complaints of chest pain. Complains of cough without any sputum production. Patient is currently on 2 L oxygen via nasal cannula. He did require BiPAP overnight. Chest x-ray showed improvement in previous demonstrated left mid to lower lung airspace opacities with the left midlung linear atelectasis. Trace bilateral pleural effusion. Patient was given a dose of IV Lasix today. Blood sugar is elevated and insulin dose is being titrated. Patient is on prednisone 20 mg daily and also on anticoagulation with Eliquis. Laboratory data showed WBC 8.4 hemoglobin 12.3 and platelets 79 sodium 136 potassium 5.6 chloride 97 bicarb 33 BUN 6020 creatinine 0.88 and blood sugar 192. Calcium 8.4. Current medications reviewed. Objective - Vital Signs Vital signs: Vital Signs Temp 98.2 F 10/08/24 08:36 Pulse 63 10/08/24 08:36 Resp 16 10/08/24 08:36 BP 116/71 10/08/24 08:36 Pulse Ox 97 10/08/24 08:36 FiO2 40 10/08/24 04:34 Intake & Output 10/07/24 10/08/24 10/08/24 18:59 06:59 18:59 Intake Total 1440 Output Total 900 Balance 1440 -900 Weight 110.5 kg Intake: Oral 1440 Output: Urine 900 Other: Voiding Method External Catheter External Catheter External Catheter # Voids 1 # Bowel Movements 1 1 - Exam - Exam GENERAL: The patient is alert and oriented x3, not in any acute distress. Well developed, well nourished. HEENT: Pupils are round and equally reacting to light. EOMI. No scleral icterus. No conjunctival pallor. Normocephalic, atraumatic. No pharyngeal erythema. No thyromegaly. CARDIOVASCULAR: S1 and S2 present. No murmurs, rubs, or gallops. -PULMONARY: Chest is clear to auscultation, scattered wheezing , mild bilateral crackles. ABDOMEN: Soft, nontender, nondistended, normoactive bowel sounds. No palpable organomegaly. MUSCULOSKELETAL: No joint swelling or deformity. EXTREMITIES: No cyanosis, clubbing, or pedal edema. NEUROLOGICAL: Gross neurological examination did not reveal any focal deficits. SKIN: No rashes. no petechiae. - Labs CBC & Chem 7: 10/08/24 05:19 10/08/24 05:19 Labs: Abnormal Lab Results - Last 24 Hours (Table) 10/07/24 10/07/24 10/07/24 Range/Units 11:31 16:14 20:10 RBC (4.40-5.60) 10*6/uL Hgb (13.0-17.0) g/dL Hct (39.6-50.0) % MCV (80.0-97.0) fL MCH (27.0-32.0) pg MCHC (32.0-37.0) g/dL Plt Count (140-440) 10*3/uL Immature Gran # (0.00-0.04) 10*3/uL Lymphocytes # (0.90-5.00) 10*3/uL Sodium (137-145) mmol/L Potassium (3.5-5.1) mmol/L Chloride (98-107) mmol/L Carbon Dioxide (22-30) mmol/L BUN (9-20) mg/dL Glucose (74-99) mg/dL POC Glucose (mg/dL) 228 H 286 H 409 H (70-110) mg/dL 10/08/24 10/08/24 10/08/24 Range/Units 05:19 05:19 06:14 RBC 3.70 L (4.40-5.60) 10*6/uL Hgb 12.3 L (13.0-17.0) g/dL Hct 39.1 L (39.6-50.0) % MCV 105.7 H (80.0-97.0) fL MCH 33.2 H (27.0-32.0) pg MCHC 31.5 L (32.0-37.0) g/dL Plt Count 79 L (140-440) 10*3/uL Immature Gran # 0.12 H (0.00-0.04) 10*3/uL Lymphocytes # 0.77 L (0.90-5.00) 10*3/uL Sodium 134 L (137-145) mmol/L Potassium 5.6 H (3.5-5.1) mmol/L Chloride 97 L (98-107) mmol/L Carbon Dioxide 33 H (22-30) mmol/L BUN 62 H (9-20) mg/dL Glucose 192 H (74-99) mg/dL POC Glucose (mg/dL) 220 H (70-110) mg/dL Assessment and Plan Assessment: Acute hypoxic respiratory failure. Patient did require BiPAP overnight. Currently on 2 L oxygen via nasal cannula. Acute RSV infection Acute COPD exacerbation Pneumonia Acute on chronic kidney injury stage II Chronic atrial fibrillation on Eliquis CHF with ejection fraction 40 to 45%, chronic Hypertension Hyperlipidemia Diabetes mellitus Obesity Severe peripheral artery disease History of gout Fatty liver History of bilateral BKA Plan: Patient will be continued on oxygen supplementation. BiPAP as needed. Complete antibiotic course with Zithromax. Continue with Eliquis Continue with insulin regimen and titrate dose and monitor glucose normal. Continue with the steroid, prednisone tapering course. Patient was started on Lasix 40 mg every 12 and monitor renal function. Monitor creatinine and hemoglobin Nephrology and pulmonary is on board. DVT prophylaxis: Eliquis GI prophylaxis: Pepcid Prognosis is guarded Time with Patient: Greater than 30
[2024-10-09 06:13] LABS: Glucose,Whole Blood 201 mg/dL (70-110)
[2024-10-09 07:09] LABS: Basophils # (A) 0.01 10*3/uL (0.00-0.10); Basophils % (A) 0.1 %; Eosinophils # (A) 0.11 10*3/uL (0.04-0.35); Eosinophils % (A) 1.6 %; HCT 41.3 % (39.6-50.0); HGB 13.2 g/dL (13.0-17.0); Immature Platelet Fraction 4.1 % (1.1-6.1); Lymphocytes # (A) 0.94 10*3/uL (0.90-5.00); Lymphocytes % (A) 13.7 %; MCH 33.9 pg (27.0-32.0); MCV 106.2 fL (80.0-97.0); Mean Platelet Volume 11.3 fL (9.5-12.2); Monocytes # (A) 0.38 10*3/uL (0.20-1.00); Monocytes % (A) 5.5 %; Neutrophils # (A) 5.32 10*3/uL (1.80-7.70); Neutrophils % (A) 77.4 %; RBC 3.89 10*6/uL (4.40-5.60); RDW 14.6 % (11.5-14.5); WBC 6.88 10*3/uL (4.50-10.00)
[2024-10-09 07:35] LABS: African American GFR (CKD) 90 (>60 ml/min/1.73 sqM); Blood Urea Nitrogen 64 mg/dL (9-20); Calcium 8.7 mg/dL (8.4-10.2); Chloride 94 mmol/L (98-107); Glucose 191 mg/dL (74-99); Non-African American GFR(CKD) 77 (>60 ml/min/1.73 sqM); Potassium 5.2 mmol/L (3.5-5.1); Sodium 134 mmol/L (137-145)
[2024-10-09 07:41] LABS: Anion Gap 4 mmol/L; Carbon Dioxide 36 mmol/L (22-30)
[2024-10-09 11:26] LABS: Glucose,Whole Blood 140 mg/dL (70-110)
--- NOTE | 2024-10-09 11:36 | P.PN ---
Subjective Patient is seen for follow-up for acute kidney injury and hyperkalemia. No significant complaints today. Good urine output. Patient has an external catheter. Bladder scan does not show any urine retention. Serum creatinine down to 0.98 mg/dL. Potassium improved to 5.2 today. Blood sugar is much better controlled today. Lasix dose was also increased yesterday. Objective - Vital Signs Vital signs: Vital Signs Temp 98.0 F 10/09/24 07:30 Pulse 65 10/09/24 07:30 Resp 18 10/09/24 07:30 BP 128/84 10/09/24 07:30 Pulse Ox 97 10/09/24 07:55 FiO2 40 10/09/24 03:32 Intake & Output 10/08/24 10/09/24 10/09/24 18:59 06:59 18:59 Intake Total 180 128 Output Total 1600 2049 350 Balance -1419 - Weight 108.5 kg Intake: IV 10 Invasive Line 7 10 Oral 180 118 Output: Urine 1600 2049 350 Other: Voiding Method External Catheter External Catheter External Catheter # Bowel Movements 1 1 - Exam Patient is awake, comfortable, no acute distress Examination of the heart S1 and S2 Examination of the lungs bilateral breath sounds are heard Abdomen is soft obese nontender Bilateral [employer] exam grossly intact - Labs CBC & Chem 7: 10/09/24 06:42 10/09/24 06:42 Labs: Abnormal Lab Results - Last 24 Hours (Table) 10/08/24 10/08/24 10/08/24 Range/Units 11:51 16:17 19:59 RBC (4.40-5.60) 10*6/uL MCV (80.0-97.0) fL MCH (27.0-32.0) pg Plt Count (140-440) 10*3/uL Immature Gran # (0.00-0.04) 10*3/uL Sodium (137-145) mmol/L Potassium (3.5-5.1) mmol/L Chloride (98-107) mmol/L Carbon Dioxide (22-30) mmol/L BUN (9-20) mg/dL Glucose (74-99) mg/dL POC Glucose (mg/dL) 170 H 407 H 308 H (70-110) mg/dL 10/09/24 10/09/24 10/09/24 Range/Units 06:11 06:42 06:42 RBC 3.89 L (4.40-5.60) 10*6/uL MCV 106.2 H (80.0-97.0) fL MCH 33.9 H (27.0-32.0) pg Plt Count 85 L (140-440) 10*3/uL Immature Gran # 0.12 H (0.00-0.04) 10*3/uL Sodium 134 L (137-145) mmol/L Potassium 5.2 H (3.5-5.1) mmol/L Chloride 94 L (98-107) mmol/L Carbon Dioxide 36 H (22-30) mmol/L BUN 64 H (9-20) mg/dL Glucose 191 H (74-99) mg/dL POC Glucose (mg/dL) 201 H (70-110) mg/dL 10/09/24 Range/Units 11:24 RBC (4.40-5.60) 10*6/uL MCV (80.0-97.0) fL MCH (27.0-32.0) pg Plt Count (140-440) 10*3/uL Immature Gran # (0.00-0.04) 10*3/uL Sodium (137-145) mmol/L Potassium (3.5-5.1) mmol/L Chloride (98-107) mmol/L Carbon Dioxide (22-30) mmol/L BUN (9-20) mg/dL Glucose (74-99) mg/dL POC Glucose (mg/dL) 140 H (70-110) mg/dL Assessment and Plan Assessment: 1. Acute kidney injury secondary to ATN secondary to severe sepsis. Creatinine peaked at 1.71 this admission and is 0.98 today. Baseline creatinine near 1. Kidney ultrasound was nondiagnostic. 2. Acute RSV pneumonia. 3. Hyperkalemia secondary to acute kidney injury, Aldactone and lisinopril. Also component of hyperglycemia. Improved but potassium is elevated at 5.6 today. No urine retention noted. Blood sugar was 407 contributing to the hyperglycemia. 4. Diabetes mellitus. s/p insulin drip. 5. Status post bilateral [id number] amputations. 6. Acute hypoxic and hypercapnic respiratory failure. Maintained on nasal cannula and BiPAP on and off Plan: Continue with IV Lasix Control blood sugars Repeat labs in a.m. Continue to hold DEBORA inhibitors for now mostly due to hyperkalemia.
--- NOTE | 2024-10-09 12:13 | P.PN ---
Subjective Progress Note Date: 10/09/24 Principal diagnosis: Pneumonia, COPD exacerbation. This is a 74-year-old male patient was brought into the hospital with increased shortness of breath. The patient resides in [facility] and the patient was experiencing his dyspnea along with fever and cough and the symptoms have been going on for past couple of days. The patient denies having any chest pain. He came into the emergency and the patient was found to have a fever with a temperature of 101.7. Hemodynamically stable. He was hyper tensive. He is currently on 4 L of oxygen by nasal cannula with a pulse ox of 94%. Blood work that was done emergency department showed a white cell count of 5.2 with a hemo globin of 13.6 and a platelet count of 105. He had a component of an acute kidney injury. His K level was at 6.2 this morning with a sodium level of 133, BUN of 57 with a creatinine of 1.39 which came up to 1.47. LFTs were mildly disturbed with an AST of 76, ALT of 59 and alkaline phosphatase of 161. Troponins are negative. The patient was found to have an acute RSV infection. The viral screen was positive for history. Based on that, the patient was hospitalized and a pulmonary consultation was requested. Nephrology consultation was also requested regarding this acute kidney injury Chest x-ray was reviewed and it shows diminished lung volumes bilaterally, pulm vasculature was within normal limits. Some limited left midlung infiltrate versus atelectasis was noted. This patient has an extensive history and multiple medical problems and comorbidities. For that reason, the patient has been essentially maintained at [facility]. The patient was treated back in January 2024 for a severe gangrenous right lower extremity and the patient underwent a above-knee amputation and subsequent antibiotic treatment for MRSA and Proteus. He is known to have COPD, severe peripheral vascular disease and he has already undergone a previous left above-knee amputation on the left. He has chronic A- fib, hypertension, severe ischemic cardiomyopathy with a previous echocardiogram showing an ejection fraction 40 to 45%, type 2 diabetes mellitus, chronic kidney disease, stage II, BPH and he also suffers from hypertension, BPH, obstructive sleep apnea, for which she has been maintained on CPAP therapy, chronic fatty liver disease and gout. Patient was seen today on 10/01/2024, patient was transferred to the ICU last night, he developed apparently obtundation, hypercapnia, and significantly elevated pCO2 with low pH, required placement on BiPAP 16/5/50% ABG showed a pO2 this morning of 103 pCO2 72 pH of 7.23, ABG prior showed a pO2 of 60 pCO2 of 93 pH of 7.12 prior to placement on BiPAP. Patient remains obtunded, arousable, but does not follow instructions. Remains on IV Solu-Medrol at 40 every 8, remains on antibiotics and is also on Eliquis, chest x-ray showed left lower lo be atelectasis/and or infiltrate. WBC count is 5.7 hemoglobin 13.8 electrolytes are normal potassium is down to 5.2 BUN is 64 creatinine 1.71 glucose 459 patient had positive RSV screening by PCR. Procalcitonin level is 0.22. Apparently the patient was obtunded last night, seen by the a team and he was transferred to the ICU at 630 this morning and placed on BiPAP 16/5/50% however I cut him down to 40%. IV fluid is 0.9 normal saline at 60 cc/h Patient was seen today on 10/02/2024, remains in the ICU, we were able to transition him to 4 L nasal cannula, he is on insulin at 5.1 units/h he is off BiPAP, 0.9 normal saline at 60 cc/h. Last night he was on BiPAP 16/5/40%. Remains on antibiotics, remains on Eliquis, significant improvement compared to yesterday. I felt yesterday he was close to be intubated and mechanically ventilated if he did not do well with BiPAP. Apparently the patient did well overnight and now he is on nasal cannula. WBC count is 6.27 hemoglobin is 12.9 electrolytes are normal BUN is 68 creatinine is coming down to 1.33, patient had positive RSV PCR on admission. Chest x-ray is showing improving infiltrate in the left lower lobe. Seen today on 10/03/2024, remains in the ICU, he had to go on BiPAP yesterday 16/5/40%, this morning the patient is more awake, alert and appropriate, he was transitioned to 6 L nasal cannula. Patient seems to be comfortable, not in any distress. CBC is relatively normal, basic metabolic profile is normal except for slightly elevated potassium of 5.4, BUN is 75 creatinine is 1.44 close to his baseline. Chest x-ray today continues show left basilar atelectasis and possibly a small pleural effusion. Patient was seen today on 10/04/2024, patient was transferred out of the ICU today, was on BiPAP last night but today he is on nasal cannula at 2 L/min and O2 sat is 94%, he is hemodynamically stable, patient denies any shortness of breath or cough or wheezing. Patient is morbidly obese, and he is known to have history of obstructive sleep apnea patient is a [facility] resident. WBC count is 3.1 hemoglobin 12.2 potassium is 5.2 BUN is 71 creatinine 1.36, improving blood sugar is 283 Seen today on 10/05/2024, patient is doing well, he is requiring BiPAP intermittently, but overall significant improvement noted since admission. He is awake today, not in any distress, on BiPAP. Continues to have slightly eleva anitra potassium of 5.5, renal profile showed BUN of 64 creatinine 0.99, bicarb is 26 CBC is relatively normal. Chest x-ray done yesterday showed worsening atelectasis and possibly a small left pleural effusion hence I am recommending an ultrasound of the chest on this patient. Considering the worsening chest x- ray, patient may not be ready for discharge planning at this point. This needs to be further addressed, again I am recommending ultrasound, patient may have to be more often on BiPAP as the patient has very shallow breathing when he is not on BiPAP. And he has low volumes contributing to his left lower lobe atelectasis. Seen today on 10/06/2024, patient remains on BiPAP, 16/5/40%, patient had an ultrasound of the chest yesterday to evaluate for possible left pleural effusion, there is not much fluid to drain, the findings are mostly findings of atelectasis and consolidation in the left lower lobe, I believe the patient has obesity/hypoventilation syndrome contributing to his atelectasis, and the patient will need incentive spirometry will need aggressive encouragement for deep coughing and deep breathing. And should use the BiPAP as often as possible. Labs today showed relatively normal electrolytes, BUN is 55 creat 1.20, slightly worse compared to yesterday but better than the days prior. Patient himself does not seem to be complaining of much of shortness of breath. Seen today on 10/07/2024, patient is on nasal cannula today, off BiPAP, seems to be doing better, breathing easier, he has a good cough, seems to be alert and oriented, yesterday I was quite concerned about his significant atelectasis noted in the left lower lobe no effusion noticed on ultrasound of the chest. Patient has WBC of 5.8 hemoglobin 12.9 electrolytes are normal except for potassium of 5.3 potassium 52 creatinine 0.84. Will definitely need follow-up chest x-ray in the next 24 hours. Progress note dated October 08, 2024. 75-year-old male seen today in room 361. The patient is now been in the hospital for 8 days. He is resting comfortably in bed. He is on oxygen by nasal cannula 2 L. He does have the BiPAP in the room, and it was used at nighttime, with settings of 16/5, to 40%. The patient also did test positive for RSV. Current laboratory data includes a white count of 8.4, hemoglobin 12.3, hematocrit 39.1, and a platelet count of 79,000. Sodium 134, potassium 5.6, chloride 97, CO2 33, BUN 62, and creatinine 0.88. Glucose was 170. Calcium was 8.4. Chest x-ray shows significant improvement in the airspace disease, at the left midlung and left base. Progress note dated October 09, 2024. 74-year-old male, seen again in room 361. Currently, he is resting comfortably in bed. He has no specific complaints. The patient is currently on 2 L of oxygen by nasal cannula. He is not receiving any IV fluids. The patient did test positive for RSV, on September 30. Laboratory data from today includes a white count of 6.9, hemoglobin 13.7, hematocrit 41.3, and a platelet count of 85,000. Sodium 134, potassium 5.2, chlorides 94, CO2 36, BUN 64, creatinine 0.98. Gl ucose is 140. Calcium is 8.7. Microbiology data is negative. Chest x-ray was done yesterday, not today. Objective - Vital Signs Vital signs: Vital Signs Temp 98.4 F 10/09/24 11:35 Pulse 78 10/09/24 11:51 Resp 18 10/09/24 11:35 BP 119/67 10/09/24 11:35 Pulse Ox 92 L 10/09/24 11:35 FiO2 40 10/09/24 03:32 Intake & Output 10/08/24 10/09/24 10/09/24 18:59 06:59 18:59 Intake Total 180 128 Output Total 1600 2049 350 Balance -142 -2049222 Weight 108.5 kg Intake: IV 10 Invasive Line 7 10 Oral 180 118 Output: Urine 1599 2049 350 Other: Voiding Method External Catheter External Catheter External Catheter # Bowel Movements 1 1 - Exam No acute distress, oriented 3. Currently on 2 L of oxygen by nasal cannula. HEENT examination is grossly unremarkable. Mucous membranes are moist. No oral lesions. Neck supple. Full range of motion. No adenopathy thyromegaly or neck vein distention. Cardiovascular examination reveals regular rhythm rate. S1-S2 normal. No S3 or S4. Soft systolic murmur is noted. Lungs reveal mostly clear breath sounds. Minimal scattered rhonchi. No wheezes or crackles. Breath sounds are equal bilaterally. Abdomen soft bowel sounds are heard. No masses or tenderness. Extremities reveal bilateral [id number] amputations. Skin is without rash or lesion. Neurologic examination is brief but nonfocal. - Labs CBC & Chem 7: 10/09/24 06:42 10/09/24 06:42 Labs: Abnormal Lab Results - Last 24 Hours (Table) 10/08/24 10/08/24 10/09/24 Range/Units 16:17 19:59 06:11 RBC (4.40-5.60) 10*6/uL MCV (80.0-97.0) fL MCH (27.0-32.0) pg Plt Count (140-440) 10*3/uL Immature Gran # (0.00-0.04) 10*3/uL Sodium (137-145) mmol/L Potassium (3.5-5.1) mmol/L Chloride (98-107) mmol/L Carbon Dioxide (22-30) mmol/L BUN (9-20) mg/dL Glucose (74-99) mg/dL POC Glucose (mg/dL) 407 H 308 H 201 H (70-110) mg/dL 10/09/24 10/09/24 10/09/24 Range/Units 06:42 06:42 11:24 RBC 3.89 L (4.40-5.60) 10*6/uL MCV 106.2 H (80.0-97.0) fL MCH 33.9 H (27.0-32.0) pg Plt Count 85 L (140-440) 10*3/uL Immature Gran # 0.12 H (0.00-0.04) 10*3/uL Sodium 134 L (137-145) mmol/L Potassium 5.2 H (3.5-5.1) mmol/L Chloride 94 L (98-107) mmol/L Carbon Dioxide 36 H (22-30) mmol/L BUN 64 H (9-20) mg/dL Glucose 191 H (74-99) mg/dL POC Glucose (mg/dL) 140 H (70-110) mg/dL Assessment and Plan Assessment: Acute hypoxemic and hypercapnic respiratory failure. Acute RSV infection. Acute on chronic stage II kidney disease. Acute hyperkalemia, resolved. Acute COPD exacerbation. History of obstructive sleep apnea syndrome. Probable Pickwickian syndrome. Chronic atrial fibrillation. Congestive heart failure with reduced ejection fraction. Severe pulmonary hypertension. Severe PAD. Type 2 diabetes mellitus. Degenerative arthritis. Gout. Fatty liver disease. Benign essential hypertension. Bilateral below the knee amputation. Metabolic encephalopathy. Left lower lobe atelectasis, with left-sided pleural effusion. Plan: Plan dated October 08, 2024. The patient is seen today in room 361. The patient continues on nasal O2 2 L. The patient is currently on 2 L of oxygen, but he does use a BiPAP intermittently. The patient continues on appropriate medications including bronchodilators, prednisone, Eliquis, and antibiotics. Labs, x-rays, and all medications are reviewed. We will continue to follow make recommendations along the way. Overall prognosis remains guarded. We recommend continued use of the incentive spirometer, hourly, and deep breathing, coughing, and clearing of secretions. Dictation was produced using [employer] dictation software. Please excuse any grammatical, word or spelling errors. Plan dated October 09, 2024. The patient appears to be relatively stable. He is on 2 L of oxygen. He denies any shortness of breath, difficulty breathing, cough, wheezing, chest tightness, or phlegm production. Likewise, the patient denies any chest pain or pressure. He is not coughing or producing any phlegm. Labs, x-rays, and medications are reviewed. We will continue to follow make recommendations along the way. The patient's overall prognosis remains guarded. Dictation was produced using [employer] software. Please excuse any grammatical, word or spelling errors. Time with Patient: Less than 30
[2024-10-09 16:21] LABS: Glucose,Whole Blood 181 mg/dL (70-110)
[2024-10-09 20:04] LABS: Glucose,Whole Blood 273 mg/dL (70-110)
[2024-10-10 06:14] LABS: Glucose,Whole Blood 226 mg/dL (70-110)
[2024-10-10 11:04] LABS: African American GFR (CKD) 82 (>60 ml/min/1.73 sqM); Blood Urea Nitrogen 61 mg/dL (9-20); Calcium 8.4 mg/dL (8.4-10.2); Chloride 89 mmol/L (98-107); Glucose 204 mg/dL (74-99); Non-African American GFR(CKD) 71 (>60 ml/min/1.73 sqM); Potassium 4.2 mmol/L (3.5-5.1); Sodium 133 mmol/L (137-145)
[2024-10-10 11:10] LABS: Anion Gap 5 mmol/L; Carbon Dioxide 39 mmol/L (22-30)
[2024-10-10 11:42] LABS: Glucose,Whole Blood 196 mg/dL (70-110)
--- NOTE | 2024-10-10 13:39 | P.PN ---
Subjective Progress Note Date: 10/10/24 Principal diagnosis: Pneumonia, COPD exacerbation. This is a 74-year-old male patient was brought into the hospital with increased shortness of breath. The patient resides in [facility] and the patient was experiencing his dyspnea along with fever and cough and the symptoms have been going on for past couple of days. The patient denies having any chest pain. He came into the emergency and the patient was found to have a fever with a temperature of 101.7. Hemodynamically stable. He was hyper tensive. He is currently on 4 L of oxygen by nasal cannula with a pulse ox of 94%. Blood work that was done emergency department showed a white cell count of 5.2 with a hemo globin of 13.6 and a platelet count of 105. He had a component of an acute kidney injury. His K level was at 6.2 this morning with a sodium level of 133, BUN of 57 with a creatinine of 1.39 which came up to 1.47. LFTs were mildly disturbed with an AST of 76, ALT of 59 and alkaline phosphatase of 161. Troponins are negative. The patient was found to have an acute RSV infection. The viral screen was positive for history. Based on that, the patient was hospitalized and a pulmonary consultation was requested. Nephrology consultation was also requested regarding this acute kidney injury Chest x-ray was reviewed and it shows diminished lung volumes bilaterally, pulm vasculature was within normal limits. Some limited left midlung infiltrate versus atelectasis was noted. This patient has an extensive history and multiple medical problems and comorbidities. For that reason, the patient has been essentially maintained at [facility]. The patient was treated back in January 2024 for a severe gangrenous right lower extremity and the patient underwent a above-knee amputation and subsequent antibiotic treatment for MRSA and Proteus. He is known to have COPD, severe peripheral vascular disease and he has already undergone a previous left above-knee amputation on the left. He has chronic A- fib, hypertension, severe ischemic cardiomyopathy with a previous echocardiogram showing an ejection fraction 40 to 45%, type 2 diabetes mellitus, chronic kidney disease, stage II, BPH and he also suffers from hypertension, BPH, obstructive sleep apnea, for which she has been maintained on CPAP therapy, chronic fatty liver disease and gout. Patient was seen today on 10/01/2024, patient was transferred to the ICU last night, he developed apparently obtundation, hypercapnia, and significantly elevated pCO2 with low pH, required placement on BiPAP 16/5/50% ABG showed a pO2 this morning of 103 pCO2 72 pH of 7.23, ABG prior showed a pO2 of 60 pCO2 of 93 pH of 7.12 prior to placement on BiPAP. Patient remains obtunded, arousable, but does not follow instructions. Remains on IV Solu-Medrol at 40 every 8, remains on antibiotics and is also on Eliquis, chest x-ray showed left lower lo be atelectasis/and or infiltrate. WBC count is 5.7 hemoglobin 13.8 electrolytes are normal potassium is down to 5.2 BUN is 64 creatinine 1.71 glucose 459 patient had positive RSV screening by PCR. Procalcitonin level is 0.22. Apparently the patient was obtunded last night, seen by the a team and he was transferred to the ICU at 630 this morning and placed on BiPAP 16/5/50% however I cut him down to 40%. IV fluid is 0.9 normal saline at 60 cc/h Patient was seen today on 10/02/2024, remains in the ICU, we were able to transition him to 4 L nasal cannula, he is on insulin at 5.1 units/h he is off BiPAP, 0.9 normal saline at 60 cc/h. Last night he was on BiPAP 16/5/40%. Remains on antibiotics, remains on Eliquis, significant improvement compared to yesterday. I felt yesterday he was close to be intubated and mechanically ventilated if he did not do well with BiPAP. Apparently the patient did well overnight and now he is on nasal cannula. WBC count is 6.27 hemoglobin is 12.9 electrolytes are normal BUN is 68 creatinine is coming down to 1.33, patient had positive RSV PCR on admission. Chest x-ray is showing improving infiltrate in the left lower lobe. Seen today on 10/03/2024, remains in the ICU, he had to go on BiPAP yesterday 16/5/40%, this morning the patient is more awake, alert and appropriate, he was transitioned to 6 L nasal cannula. Patient seems to be comfortable, not in any distress. CBC is relatively normal, basic metabolic profile is normal except for slightly elevated potassium of 5.4, BUN is 75 creatinine is 1.44 close to his baseline. Chest x-ray today continues show left basilar atelectasis and possibly a small pleural effusion. Patient was seen today on 10/04/2024, patient was transferred out of the ICU today, was on BiPAP last night but today he is on nasal cannula at 2 L/min and O2 sat is 94%, he is hemodynamically stable, patient denies any shortness of breath or cough or wheezing. Patient is morbidly obese, and he is known to have history of obstructive sleep apnea patient is a [facility] resident. WBC count is 3.1 hemoglobin 12.2 potassium is 5.2 BUN is 71 creatinine 1.36, improving blood sugar is 283 Seen today on 10/05/2024, patient is doing well, he is requiring BiPAP intermittently, but overall significant improvement noted since admission. He is awake today, not in any distress, on BiPAP. Continues to have slightly eleva anitra potassium of 5.5, renal profile showed BUN of 64 creatinine 0.99, bicarb is 26 CBC is relatively normal. Chest x-ray done yesterday showed worsening atelectasis and possibly a small left pleural effusion hence I am recommending an ultrasound of the chest on this patient. Considering the worsening chest x- ray, patient may not be ready for discharge planning at this point. This needs to be further addressed, again I am recommending ultrasound, patient may have to be more often on BiPAP as the patient has very shallow breathing when he is not on BiPAP. And he has low volumes contributing to his left lower lobe atelectasis. Seen today on 10/06/2024, patient remains on BiPAP, 16/5/40%, patient had an ultrasound of the chest yesterday to evaluate for possible left pleural effusion, there is not much fluid to drain, the findings are mostly findings of atelectasis and consolidation in the left lower lobe, I believe the patient has obesity/hypoventilation syndrome contributing to his atelectasis, and the patient will need incentive spirometry will need aggressive encouragement for deep coughing and deep breathing. And should use the BiPAP as often as possible. Labs today showed relatively normal electrolytes, BUN is 55 creat 1.20, slightly worse compared to yesterday but better than the days prior. Patient himself does not seem to be complaining of much of shortness of breath. Seen today on 10/07/2024, patient is on nasal cannula today, off BiPAP, seems to be doing better, breathing easier, he has a good cough, seems to be alert and oriented, yesterday I was quite concerned about his significant atelectasis noted in the left lower lobe no effusion noticed on ultrasound of the chest. Patient has WBC of 5.8 hemoglobin 12.9 electrolytes are normal except for potassium of 5.3 potassium 52 creatinine 0.84. Will definitely need follow-up chest x-ray in the next 24 hours. Progress note dated October 08, 2024. 75-year-old male seen today in room 361. The patient is now been in the hospital for 8 days. He is resting comfortably in bed. He is on oxygen by nasal cannula 2 L. He does have the BiPAP in the room, and it was used at nighttime, with settings of 16/5, to 40%. The patient also did test positive for RSV. Current laboratory data includes a white count of 8.4, hemoglobin 12.3, hematocrit 39.1, and a platelet count of 79,000. Sodium 134, potassium 5.6, chloride 97, CO2 33, BUN 62, and creatinine 0.88. Glucose was 170. Calcium was 8.4. Chest x-ray shows significant improvement in the airspace disease, at the left midlung and left base. Progress note dated October 09, 2024. 74-year-old male, seen again in room 361. Currently, he is resting comfortably in bed. He has no specific complaints. The patient is currently on 2 L of oxygen by nasal cannula. He is not receiving any IV fluids. The patient did test positive for RSV, on September 30. Laboratory data from today includes a white count of 6.9, hemoglobin 13.7, hematocrit 41.3, and a platelet count of 85,000. Sodium 134, potassium 5.2, chlorides 94, CO2 36, BUN 64, creatinine 0.98. Gl ucose is 140. Calcium is 8.7. Microbiology data is negative. Chest x-ray was done yesterday, not today. Progress note dated October 10, 2024. 74-year-old male seen in room 361. The patient is resting comfortably in bed. He is currently on 2 L of oxygen. No IV fluids. The patient is awake and alert, without any distress. He denies any shortness of breath, difficulty breathing, coughing, wheezing, chest tightness, or phlegm production. He also denies any chest complaints including chest pain or pressure. Sodium 133, potassium 4.2, chloride 89, CO2 39, BUN 61, creatinine 1.05. Glucose 196. Calcium 8.4. Objective - Vital Signs Vital signs: Vital Signs Temp 98.1 F 10/10/24 11:10 Pulse 67 10/10/24 11:10 Resp 17 10/10/24 11:10 BP 119/81 10/10/24 11:10 Pulse Ox 94 L 10/10/24 11:24 FiO2 40 10/10/24 03:42 Intake & Output 10/09/24 10/10/24 10/10/24 18:59 06:59 18:59 Intake Total 374 260 368 Output Total 700 1250 Balance -326 -990 368 Weight 105.5 kg Intake: IV 20 20 10 Invasive Line 7 20 20 10 Oral 354 240 358 Output: Urine 700 1250 Other: Voiding Method External Catheter External Catheter External Catheter # Voids 1 # Bowel Movements 1 - Exam No acute distress, oriented 3. Currently on 2 L of oxygen by nasal cannula. HEENT examination is grossly unremarkable. Mucous membranes are moist. No oral lesions. Neck supple. Full range of motion. No adenopathy thyromegaly or neck vein distention. Cardiovascular examination reveals regular rhythm rate. S1-S2 normal. No S3 or S4. Soft systolic murmur is noted. Lungs reveal mostly clear breath sounds. Minimal scattered rhonchi. No wheezes or crackles. Breath sounds are equal bilaterally. Abdomen soft bowel sounds are heard. No masses or tenderness. Extremities reveal bilateral [id number] amputations. Skin is without rash or lesion. Neurologic examination is brief but nonfocal. - Labs CBC & Chem 7: 10/09/24 06:42 10/10/24 10:05 Labs: Abnormal Lab Results - Last 24 Hours (Table) 10/09/24 10/09/24 10/10/24 Range/Units 16:20 20:02 06:13 Sodium (137-145) mmol/L Chloride (98-107) mmol/L Carbon Dioxide (22-30) mmol/L BUN (9-20) mg/dL Glucose (74-99) mg/dL POC Glucose (mg/dL) 181 H 273 H 226 H (70-110) mg/dL 10/10/24 10/10/24 Range/Units 10:05 11:41 Sodium 133 L (137-145) mmol/L Chloride 89 L (98-107) mmol/L Carbon Dioxide 39 H (22-30) mmol/L BUN 61 H (9-20) mg/dL Glucose 204 H (74-99) mg/dL POC Glucose (mg/dL) 196 H (70-110) mg/dL Assessment and Plan Assessment: Acute hypoxemic and hypercapnic respiratory failure. Acute RSV infection. Acute on chronic stage II kidney disease. Acute hyperkalemia, resolved. Acute COPD exacerbation. History of obstructive sleep apnea syndrome. Probable Pickwickian syndrome. Chronic atrial fibrillation. Congestive heart failure with reduced ejection fraction. Severe pulmonary hypertension. Severe PAD. Type 2 diabetes mellitus. Degenerative arthritis. Gout. Fatty liver disease. Benign essential hypertension. Bilateral below the knee amputation. Metabolic encephalopathy. Left lower lobe atelectasis, with left-sided pleural effusion. Plan: Plan dated October 08, 2024. The patient is seen today in room 361. The patient continues on nasal O2 2 L. The patient is currently on 2 L of oxygen, but he does use a BiPAP intermittently. The patient continues on appropriate medications including bronchodilators, prednisone, Eliquis, and antibiotics. Labs, x-rays, and all medications are reviewed. We will continue to follow make recommendations along the way. Overall prognosis remains guarded. We recommend continued use of the incentive spirometer, hourly, and deep breathing, coughing, and clearing of secretions. Dictation was produced using [employer] software. Please excuse any grammatical, word or spelling errors. Plan dated October 09, 2024. The patient appears to be relatively stable. He is on 2 L of oxygen. He denies any shortness of breath, difficulty breathing, cough, wheezing, chest tightness, or phlegm production. Likewise, the patient denies any chest pain or pressure. He is not coughing or producing any phlegm. Labs, x-rays, and medications are reviewed. We will continue to follow make recommendations along the way. The patient's overall prognosis remains guarded. Dictation was produced using [employer] software. Please excuse any grammatical, word or spelling errors. Plan dated October 10, 2024. The patient is seen today in room 361. He is resting comfortably in bed. He continues on O2 at 2 L. He is awake and alert. Saturations are in the mid 90s. He denies any pulmonary issues including shortness of breath, cough, wheezing, chest tightness, or phlegm production. Labs, x-rays, and all medications are reviewed. We will continue to follow the patient, make recommendations along the way. Prognosis is guarded. Dictation was produced using [employer] dictation software. Please excuse any grammatical, word or spelling errors. Time with Patient: Less than 30
[2024-10-10 16:27] LABS: Glucose,Whole Blood 221 mg/dL (70-110)
[2024-10-10 17:06] LABS: Platelet Count 85 10*3/uL (140-440)
[2024-10-10 20:02] LABS: Glucose,Whole Blood 253 mg/dL (70-110)
--- NOTE | 2024-10-10 21:30 | P.PN ---
Subjective Progress Note Date: 10/10/24 74-year-old gentleman with past medical history significant for atrial fibrillation, CAD, congestive heart failure, hypertension, hyperlipidemia, presents the ER after being sent in from [facility] for shortness of breath. Patient stated that he has been feeling sick for the last couple of days, complaining of shortness of breath at rest as on exertion, patient also complaining of cough. Patient also noted that he was having fever. There was no complaint of chills. Patient denied any chest pain. There was no complaint of orthopnea or PND there was no complaint of nausea, vomiting or abdominal pain. Because of this shortness of breath and fever, patient was sent to the ER Initial lab work done in the ER showed WBC 5.2, hemoglobin 13.6, platelet count 105, sodium 133, potassium 6.2, BUN 57, creatinine 1.39 glucose 349, lactate 1.4, AST 76, ALT 59, troponin 0.027 Influenza A not detected Influenza B not detected RSV detected COVID-19 not detected EKG done in the ER showed heart rate of 82, no ST segment elevation or depression seen, no T-wave inversions seen. Chest x-ray done in the ER showed left lower lobe infiltrate Patient admitted to internal medicine service 10/06/2024 - patient seen and evaluated in room at bedside; remains on BiPAP - patient had an ultrasound of the chest yesterday to evaluate for possible left pleural effusion, the findings are mostly findings of atelectasis and consolidation in the left lower lobe - Pulmonary service on board; patient has obesity/hypoventilation syndrome contributing to his atelectasis, pulmonary recommending incentive spirometry will need aggressive encouragement for deep coughing and deep breathing. Patien t is recommended to use the BiPAP as often as possible. - Blood work reveals WBC of 2.9, hemoglobin of 12.7 and platelet count of 65, sodium 136, potassium 4.9, BUNs/creatinine 55/1.20 and blood glucose of 251 - Patient admitted with acute hypoxic/hypercapnic respiratory failure with RSV infection resulting in acute exacerbation of COPD - Patient is to remain on BiPAP; has been transition to oral steroids prednisone 20 mg daily - Continue with droplet isolation given patient positive for RSV 10/07/2024 - patient seen and evaluated in room at bedside; currently on BiPAP, seems to be doing better, breathing easier, he has a good cough - Chest x-ray completed yesterday revealed significant atelectasis noted in the left lower lobe no effusion noticed on ultrasound of the chest. Pulmonary service recommending repeat chest x-ray in next 24 hours - Patient has WBC of 5.8 hemoglobin 12.9 electrolytes are normal except for potassium of 5.3 potassium 52 creatinine 0.84. Continue O2 via nasal cannula titrate FiO2 down maintain O2 saturation just above 88%; bronchodilators; insulin; DuoNeb updrafts Continue prednisone at 20 mg daily Continue to titrate oxygen accordingly on BiPAP. 10/08/2024 Patient is awake and alert. Shortness of breath is improved. No complaints of chest pain. Complains of cough without any sputum production. Patient is currently on 2 L oxygen via nasal cannula. He did require BiPAP overnight. Chest x-ray showed improvement in previous demonstrated left mid to lower lung airspace opacities with the left midlung linear atelectasis. Trace bilateral pleural effusion. Patient was given a dose of IV Lasix today. Blood sugar is elevated and insulin dose is being titrated. Patient is on prednisone 20 mg daily and also on anticoagulation with Eliquis. Laboratory data showed WBC 8.4 hemoglobin 12.3 and platelets 79 sodium 136 potassium 5.6 chloride 97 bicarb 33 BUN 6020 creatinine 0.88 and blood sugar 192. Calcium 8.4. 10/09/2024 Patient is resting in the bed. Awake alert and oriented x 3. Currently requiring 2 L oxygen via nasal cannula. Patient did use BiPAP overnight. Continue on IV Lasix. Laboratory data showed WBC 6.8 hemoglobin 13.2 and platelets 85 sodium 134 potassium 5.2 chloride 94 bicarb is 36 BUN 64 and creatinine 0.98 and blood sugar 191 and calcium 8.7. Blood cultures negative. Nephrology and pulmonary is on board. 10/10/2024 Patient was lying in the bed. Awake alert and oriented x 3. Denied any com plaints of chest pain or worsening shortness of breath. Requiring 2 L of oxygen via nasal cannula. No acute overnight issues. No cough or sputum production. Patient has been afebrile. Remains on IV Lasix 40 mg twice daily. Lab data showed sodium 133 potassium 4.2 chloride 89 bicarb is 39 BUN 61 and creatinine 1.05 blood sugar 204. Patient is on prednisone 20 mg daily. Anticipate discharge in the next 24 hours. Current medications reviewed. Objective - Vital Signs Vital signs: Vital Signs Temp 98 F 10/10/24 16:07 Pulse 84 10/10/24 16:07 Resp 19 10/10/24 16:07 BP 130/71 10/10/24 16:07 Pulse Ox 95 10/10/24 16:07 FiO2 40 10/10/24 03:42 Intake & Output 10/10/24 10/10/24 10/11/24 06:59 18:59 06:59 Intake Total 260 496 Output Total 1250 450 Balance -990 46 Weight 105.5 kg Intake: IV 20 20 Invasive Line 7 20 20 Oral 240 476 Output: Urine 1250 450 Other: Voiding Method External Catheter External Catheter # Voids 1 - Exam - Exam GENERAL: The patient is alert and oriented x3, not in any acute distress. Well developed, well nourished. HEENT: Pupils are round and equally reacting to light. EOMI. No scleral icterus. No conjunctival pallor. Normocephalic, atraumatic. No pharyngeal erythema. No thyromegaly. CARDIOVASCULAR: S1 and S2 present. No murmurs, rubs, or gallops. -PULMONARY: Chest is clear to auscultation, scattered wheezing , mild bilateral crackles. ABDOMEN: Soft, nontender, nondistended, normoactive bowel sounds. No palpable organomegaly. MUSCULOSKELETAL: No joint swelling or deformity. EXTREMITIES: No cyanosis, clubbing, or pedal edema. NEUROLOGICAL: Gross neurological examination did not reveal any focal deficits. SKIN: No rashes. no petechiae. - Labs CBC & Chem 7: 10/09/24 06:42 10/10/24 10:05 Labs: Abnormal Lab Results - Last 24 Hours (Table) 10/09/24 10/10/24 10/10/24 Range/Units 06:42 06:13 10:05 Plt Count 85 L (140-440) 10*3/uL Sodium 133 L (137-145) mmol/L Chloride 89 L (98-107) mmol/L Carbon Dioxide 39 H (22-30) mmol/L BUN 61 H (9-20) mg/dL Glucose 204 H (74-99) mg/dL POC Glucose (mg/dL) 226 H (70-110) mg/dL 04/16/25 04/16/25 04/16/25 Range/Units 11:41 16:25 20:00 Plt Count (140-440) 10*3/uL Sodium (137-145) mmol/L Chloride (98-107) mmol/L Carbon Dioxide (22-30) mmol/L BUN (9-20) mg/dL Glucose (74-99) mg/dL POC Glucose (mg/dL) 196 H 221 H 253 H (70-110) mg/dL Assessment and Plan Assessment: Acute hypoxic respiratory failure. Patient did require BiPAP overnight. Currently on 2 L oxygen via nasal cannula. Acute RSV infection Acute COPD exacerbation Pneumonia Acute on chronic kidney injury stage II Chronic atrial fibrillation on Eliquis CHF with ejection fraction 40 to 45%, chronic Hypertension Hyperlipidemia Diabetes mellitus type 2 insulin-dependent uncontrolled with hyperglycemia Obesity Severe peripheral artery disease History of gout Fatty liver History of bilateral BKA Plan: Patient will be continued on oxygen supplementation. BiPAP as needed. Titrate down to room air. Completed antibiotic course with Zithromax. Continue with Eliquis Continue with insulin regimen and titrate dose and monitor glucose normal. Continue with the steroid, prednisone tapering course. Currently on prednisone 20 mg daily. Patient was started on Lasix 40 mg every 12 and monitor renal function. Monitor creatinine and hemoglobin Nephrology and pulmonary is on board. DVT prophylaxis: Eliquis GI prophylaxis: Pepcid Prognosis is guarded Time with Patient: Greater than 30
[2024-10-10] MEDS: FUROSEMIDE 10 MG/ML 4 ML VIAL IV SCH (22:00)
--- NOTE | 2024-10-10 22:51 | P.PN ---
Subjective Patient is seen for follow-up for acute kidney injury and hyperkalemia. No significant complaints today. Good urine output. Patient has an external catheter. Bladder scan does not show any urine retention. Serum creatinine down to 1.0mg/dL. Potassium improved to today. Blood sugar is much better controlled today. Maintained on IV Lasix Objective - Vital Signs Vital signs: Vital Signs Temp 98 F 10/10/24 16:07 Pulse 84 10/10/24 16:07 Resp 19 10/10/24 16:07 BP 130/71 10/10/24 16:07 Pulse Ox 95 10/10/24 16:07 FiO2 40 10/10/24 03:42 Intake & Output 10/10/24 10/10/24 10/11/24 06:59 18:59 06:59 Intake Total 260 496 Output Total 1250 450 Balance -990 46 Weight 105.5 kg Intake: IV 20 20 Invasive Line 7 20 20 Oral 240 476 Output: Urine 1250 450 Other: Voiding Method External Catheter External Catheter # Voids 1 - Exam Patient is awake, comfortable, no acute distress Examination of the heart S1 and S2 Examination of the lungs bilateral breath sounds are heard Abdomen is soft obese nontender 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 - Labs CBC & Chem 7: 10/09/24 06:42 10/10/24 10:05 Labs: Abnormal Lab Results - Last 24 Hours (Table) 10/09/24 10/10/24 10/10/24 Range/Units 06:42 06:13 10:05 Plt Count 85 L (140-440) 10*3/uL Sodium 133 L (137-145) mmol/L Chloride 89 L (98-107) mmol/L Carbon Dioxide 39 H (22-30) mmol/L BUN 61 H (9-20) mg/dL Glucose 204 H (74-99) mg/dL POC Glucose (mg/dL) 226 H (70-110) mg/dL 10/10/24 10/10/24 10/10/24 Range/Units 11:41 16: 20:00 Plt Count (140-440) 10*3/uL Sodium (137-145) mmol/L Chloride (98-107) mmol/L Carbon Dioxide (22-30) mmol/L BUN (9-20) mg/dL Glucose (74-99) mg/dL POC Glucose (mg/dL) 196 H 221 H 253 H (70-110) mg/dL Assessment and Plan Assessment: 1. Acute kidney injury secondary to ATN secondary to severe sepsis. Creatinine peaked at 1.71 this admission and is 1.0 today. Baseline creatinine near 1. Kidney ultrasound was nondiagnostic. 2. Acute RSV pneumonia. 3. Hyperkalemia secondary to acute kidney injury, Aldactone and lisinopril. Also component of hyperglycemia. Improved. No urine retention noted. Blood sugar was 407 contributing to the hyperglycemia. 4. Diabetes mellitus. s/p insulin drip. 5. Status post bilateral [id number] amputations. 6. Acute hypoxic and hypercapnic respiratory failure. Maintained on nasal cannula and BiPAP on and off Plan: Continue with IV Lasix Changed to oral diuretics if serum creatinine is higher tomorrow. Control blood sugars Repeat labs in a.m. Continue to hold DEBORA inhibitors for now mostly due to hyperkalemia.
[2024-10-11 06:15] LABS: Glucose,Whole Blood 199 mg/dL (70-110)
[2024-10-11 07:00] LABS: Basophils # (A) 0.02 10*3/uL (0.00-0.10); Basophils % (A) 0.3 %; Eosinophils # (A) 0.03 10*3/uL (0.04-0.35); Eosinophils % (A) 0.4 %; HCT 42.3 % (39.6-50.0); HGB 13.3 g/dL (13.0-17.0); Lymphocytes % (A) 14.4 %; MCHC 31.4 g/dL (32.0-37.0); Mean Platelet Volume 11.2 fL (9.5-12.2); Monocytes # (A) 0.52 10*3/uL (0.20-1.00); Monocytes % (A) 7.5 %; Neutrophils # (A) 5.26 10*3/uL (1.80-7.70); Neutrophils % (A) 75.8 %; Platelet Count 107 10*3/uL (140-440); RBC 4.03 10*6/uL (4.40-5.60); RDW 14.6 % (11.5-14.5); WBC 6.94 10*3/uL (4.50-10.00)
[2024-10-11 07:02] LABS: African American GFR (CKD) 72 (>60 ml/min/1.73 sqM); Blood Urea Nitrogen 61 mg/dL (9-20); Calcium 8.7 mg/dL (8.4-10.2); Chloride 92 mmol/L (98-107); Glucose 191 mg/dL (74-99); Non-African American GFR(CKD) 62 (>60 ml/min/1.73 sqM); Potassium 4.7 mmol/L (3.5-5.1); Sodium 136 mmol/L (137-145)
[2024-10-11 07:10] LABS: Anion Gap 8 mmol/L
[2024-10-11 07:26] LABS: Carbon Dioxide 36 mmol/L (22-30)
--- NOTE | 2024-10-11 10:37 | P.PN ---
Subjective Progress Note Date: 10/11/24 Principal diagnosis: Pneumonia, COPD exacerbation. This is a 74-year-old male patient was brought into the hospital with increased shortness of breath. The patient resides in [facility] and the patient was experiencing his dyspnea along with fever and cough and the symptoms have been going on for past couple of days. The patient denies having any chest pain. He came into the emergency and the patient was found to have a fever with a temperature of 101.7. Hemodynamically stable. He was hyper tensive. He is currently on 4 L of oxygen by nasal cannula with a pulse ox of 94%. Blood work that was done emergency department showed a white cell count of 5.2 with a hemo globin of 13.6 and a platelet count of 105. He had a component of an acute kidney injury. His K level was at 6.2 this morning with a sodium level of 133, BUN of 57 with a creatinine of 1.39 which came up to 1.47. LFTs were mildly disturbed with an AST of 76, ALT of 59 and alkaline phosphatase of 161. Troponins are negative. The patient was found to have an acute RSV infection. The viral screen was positive for history. Based on that, the patient was hospitalized and a pulmonary consultation was requested. Nephrology consultation was also requested regarding this acute kidney injury Chest x-ray was reviewed and it shows diminished lung volumes bilaterally, pulm vasculature was within normal limits. Some limited left midlung infiltrate versus atelectasis was noted. This patient has an extensive history and multiple medical problems and comorbidities. For that reason, the patient has been essentially maintained at [facility]. The patient was treated back in January 2024 for a severe gangrenous right lower extremity and the patient underwent a above-knee amputation and subsequent antibiotic treatment for MRSA and Proteus. He is known to have COPD, severe peripheral vascular disease and he has already undergone a previous left above-knee amputation on the left. He has chronic A- fib, hypertension, severe ischemic cardiomyopathy with a previous echocardiogram showing an ejection fraction 40 to 45%, type 2 diabetes mellitus, chronic kidney disease, stage II, BPH and he also suffers from hypertension, BPH, obstructive sleep apnea, for which she has been maintained on CPAP therapy, chronic fatty liver disease and gout. Patient was seen today on 10/01/2024, patient was transferred to the ICU last night, he developed apparently obtundation, hypercapnia, and significantly elevated pCO2 with low pH, required placement on BiPAP 16/5/50% ABG showed a pO2 this morning of 103 pCO2 72 pH of 7.23, ABG prior showed a pO2 of 60 pCO2 of 93 pH of 7.12 prior to placement on BiPAP. Patient remains obtunded, arousable, but does not follow instructions. Remains on IV Solu-Medrol at 40 every 8, remains on antibiotics and is also on Eliquis, chest x-ray showed left lower lo be atelectasis/and or infiltrate. WBC count is 5.7 hemoglobin 13.8 electrolytes are normal potassium is down to 5.2 BUN is 64 creatinine 1.71 glucose 459 patient had positive RSV screening by PCR. Procalcitonin level is 0.22. Apparently the patient was obtunded last night, seen by the a team and he was transferred to the ICU at 630 this morning and placed on BiPAP 16/5/50% however I cut him down to 40%. IV fluid is 0.9 normal saline at 60 cc/h Patient was seen today on 10/02/2024, remains in the ICU, we were able to transition him to 4 L nasal cannula, he is on insulin at 5.1 units/h he is off BiPAP, 0.9 normal saline at 60 cc/h. Last night he was on BiPAP 16/5/40%. Remains on antibiotics, remains on Eliquis, significant improvement compared to yesterday. I felt yesterday he was close to be intubated and mechanically ventilated if he did not do well with BiPAP. Apparently the patient did well overnight and now he is on nasal cannula. WBC count is 6.27 hemoglobin is 12.9 electrolytes are normal BUN is 68 creatinine is coming down to 1.33, patient had positive RSV PCR on admission. Chest x-ray is showing improving infiltrate in the left lower lobe. Seen today on 10/03/2024, remains in the ICU, he had to go on BiPAP yesterday 16/5/40%, this morning the patient is more awake, alert and appropriate, he was transitioned to 6 L nasal cannula. Patient seems to be comfortable, not in any distress. CBC is relatively normal, basic metabolic profile is normal except for slightly elevated potassium of 5.4, BUN is 75 creatinine is 1.44 close to his baseline. Chest x-ray today continues show left basilar atelectasis and possibly a small pleural effusion. Patient was seen today on 10/04/2024, patient was transferred out of the ICU today, was on BiPAP last night but today he is on nasal cannula at 2 L/min and O2 sat is 94%, he is hemodynamically stable, patient denies any shortness of breath or cough or wheezing. Patient is morbidly obese, and he is known to have history of obstructive sleep apnea patient is a long term resident. WBC count is 3.1 hemoglobin 12.2 potassium is 5.2 BUN is 71 creatinine 1.36, improving blood sugar is 283 Seen today on 10/05/2024, patient is doing well, he is requiring BiPAP intermittently, but overall significant improvement noted since admission. He is awake today, not in any distress, on BiPAP. Continues to have slightly eleva anitra potassium of 5.5, renal profile showed BUN of 64 creatinine 0.99, bicarb is 26 CBC is relatively normal. Chest x-ray done yesterday showed worsening atelectasis and possibly a small left pleural effusion hence I am recommending an ultrasound of the chest on this patient. Considering the worsening chest x- ray, patient may not be ready for discharge planning at this point. This needs to be further addressed, again I am recommending ultrasound, patient may have to be more often on BiPAP as the patient has very shallow breathing when he is not on BiPAP. And he has low volumes contributing to his left lower lobe atelectasis. Seen today on 10/06/2024, patient remains on BiPAP, 16/5/40%, patient had an ultrasound of the chest yesterday to evaluate for possible left pleural effusion, there is not much fluid to drain, the findings are mostly findings of atelectasis and consolidation in the left lower lobe, I believe the patient has obesity/hypoventilation syndrome contributing to his atelectasis, and the patient will need incentive spirometry will need aggressive encouragement for deep coughing and deep breathing. And should use the BiPAP as often as possible. Labs today showed relatively normal electrolytes, BUN is 55 creat 1.20, slightly worse compared to yesterday but better than the days prior. Patient himself does not seem to be complaining of much of shortness of breath. Seen today on 10/07/2024, patient is on nasal cannula today, off BiPAP, seems to be doing better, breathing easier, he has a good cough, seems to be alert and oriented, yesterday I was quite concerned about his significant atelectasis noted in the left lower lobe no effusion noticed on ultrasound of the chest. Patient has WBC of 5.8 hemoglobin 12.9 electrolytes are normal except for potassium of 5.3 potassium 52 creatinine 0.84. Will definitely need follow-up chest x-ray in the next 24 hours. Progress note dated October 08, 2024. 75-year-old male seen today in room 361. The patient is now been in the hospital for 8 days. He is resting comfortably in bed. He is on oxygen by nasal cannula 2 L. He does have the BiPAP in the room, and it was used at nighttime, with settings of 16/5, to 40%. The patient also did test positive for RSV. Current laboratory data includes a white count of 8.4, hemoglobin 12.3, hematocrit 39.1, and a platelet count of 79,000. Sodium 134, potassium 5.6, chloride 97, CO2 33, BUN 62, and creatinine 0.88. Glucose was 170. Calcium was 8.4. Chest x-ray shows significant improvement in the airspace disease, at the left midlung and left base. Progress note dated October 09, 2024. 74-year-old male, seen again in room 361. Currently, he is resting comfortably in bed. He has no specific complaints. The patient is currently on 2 L of oxygen by nasal cannula. He is not receiving any IV fluids. The patient did test positive for RSV, on September 30. Laboratory data from today includes a white count of 6.9, hemoglobin 13.7, hematocrit 41.3, and a platelet count of 85,000. Sodium 134, potassium 5.2, chlorides 94, CO2 36, BUN 64, creatinine 0.98. Gl ucose is 140. Calcium is 8.7. Microbiology data is negative. Chest x-ray was done yesterday, not today. Progress note dated October 10, 2024. 74-year-old male seen in room 361. The patient is resting comfortably in bed. He is currently on 2 L of oxygen. No IV fluids. The patient is awake and alert, without any distress. He denies any shortness of breath, difficulty breathing, coughing, wheezing, chest tightness, or phlegm production. He also denies any chest complaints including chest pain or pressure. Sodium 133, potassium 4.2, chloride 89, CO2 39, BUN 61, creatinine 1.05. Glucose 196. Calcium 8.4. Progress note dated October 11, 2024. 75-year-old male seen today in room 361. The patient is lying in bed. He is currently on oxygen by nasal cannula 2 L. He denies any shortness of breath, cough, wheezing, chest tightness, or phlegm production. He denies any distress. He is alert and awake. White count is 6.94, hemoglobin 13.3, hematocrit 42.3, and platelet count 107,000. Sodium 136, potassium 4.7, chlorides 92, CO2 36, BUN 61, and creatinine 1.17. Glucose was 199. Calcium is 8.7. Objective - Vital Signs Vital signs: Vital Signs Temp 97.3 F L 10/11/24 07:52 Pulse 58 L 10/11/24 08:31 Resp 19 10/11/24 07:52 BP 107/73 10/11/24 08:31 Pulse Ox 99 10/11/24 08:36 FiO2 40 10/10/24 03:42 Intake & Output 10/10/24 10/11/24 10/11/24 18:59 06:59 18:59 Intake Total 496 20 180 Output Total 450 625 Balance 46 -605 180 Weight 105.5 kg Intake: IV 20 20 Invasive Line 7 20 20 Oral 476 180 Output: Urine 450 625 Other: Voiding Method External Catheter External Catheter External Catheter # Bowel Movements 1 - Exam No acute distress, oriented 3. Currently on 2 L of oxygen by nasal cannula. HEENT examination is grossly unremarkable. Mucous membranes are moist. No oral lesions. Neck supple. Full range of motion. No adenopathy thyromegaly or neck vein distention. Cardiovascular examination reveals regular rhythm rate. S1-S2 normal. No S3 or S4. Soft systolic murmur is noted. Lungs reveal mostly clear breath sounds. Minimal scattered rhonchi. No wheezes or crackles. Breath sounds are equal bilaterally. Abdomen soft bowel sounds are heard. No masses or tenderness. Extremities reveal bilateral [id number] amputations. Skin is without rash or lesion. Neurologic examination is brief but nonfocal. - Labs CBC & Chem 7: 10/11/24 06:10 10/11/24 06:10 Labs: Abnormal Lab Results - Last 24 Hours (Table) 10/09/24 10/10/24 10/10/24 Range/Units 06:42 10:05 11:41 RBC (4.40-5.60) 10*6/uL MCV (80.0-97.0) fL MCH (27.0-32.0) pg MCHC (32.0-37.0) g/dL Plt Count 85 L (140-440) 10*3/uL Immature Gran # (0.00-0.04) 10*3/uL Eosinophils # (0.04-0.35) 10*3/uL Sodium 133 L (137-145) mmol/L Chloride 89 L (98-107) mmol/L Carbon Dioxide 39 H (22-30) mmol/L BUN 61 H (9-20) mg/dL Glucose 204 H (74-99) mg/dL POC Glucose (mg/dL) 196 H (70-110) mg/dL 10/10/24 10/10/24 10/11/24 Range/Units 16:25 20:00 06:10 RBC 4.03 L (4.40-5.60) 10*6/uL MCV 105.0 H (80.0-97.0) fL MCH 33.0 H (27.0-32.0) pg MCHC 31.4 L (32.0-37.0) g/dL Plt Count 107 L (140-440) 10*3/uL Immature Gran # 0.11 H (0.00-0.04) 10*3/uL Eosinophils # 0.03 L (0.04-0.35) 10*3/uL Sodium (137-145) mmol/L Chloride (98-107) mmol/L Carbon Dioxide (22-30) mmol/L BUN (9-20) mg/dL Glucose (74-99) mg/dL POC Glucose (mg/dL) 221 H 253 H (70-110) mg/dL 10/11/24 10/11/24 Range/Units 06:10 06:14 RBC (4.40-5.60) 10*6/uL MCV (80.0-97.0) fL MCH (27.0-32.0) pg MCHC (32.0-37.0) g/dL Plt Count (140-440) 10*3/uL Immature Gran # (0.00-0.04) 10*3/uL Eosinophils # (0.04-0.35) 10*3/uL Sodium 136 L (137-145) mmol/L Chloride 92 L (98-107) mmol/L Carbon Dioxide 36 H (22-30) mmol/L BUN 61 H (9-20) mg/dL Glucose 191 H (74-99) mg/dL POC Glucose (mg/dL) 199 H (70-110) mg/dL Assessment and Plan Assessment: Acute hypoxemic and hypercapnic respiratory failure. Acute RSV infection. Acute on chronic stage II kidney disease. Acute hyperkalemia, resolved. Acute COPD exacerbation. History of obstructive sleep apnea syndrome. Probable Pickwickian syndrome. Chronic atrial fibrillation. Congestive heart failure with reduced ejection fraction. Severe pulmonary hypertension. Severe PAD. Type 2 diabetes mellitus. Degenerative arthritis. Gout. Fatty liver disease. Benign essential hypertension. Bilateral below the knee amputation. Metabolic encephalopathy. Left lower lobe atelectasis, with left-sided pleural effusion. Plan: Plan dated October 08, 2024. The patient is seen today in room 361. The patient continues on nasal O2 2 L. The patient is currently on 2 L of oxygen, but he does use a BiPAP intermittently. The patient continues on appropriate medications including bronchodilators, prednisone, Eliquis, and antibiotics. Labs, x-rays, and all medications are reviewed. We will continue to follow make recommendations along the way. Overall prognosis remains guarded. We recommend continued use of the incentive spirometer, hourly, and deep breathing, coughing, and clearing of secretions. Dictation was produced using [employer] software. Please excuse any grammatical, word or spelling errors. Plan dated October 09, 2024. The patient appears to be relatively stable. He is on 2 L of oxygen. He denies any shortness of breath, difficulty breathing, cough, wheezing, chest tightness, or phlegm production. Likewise, the patient denies any chest pain or pressure. He is not coughing or producing any phlegm. Labs, x-rays, and medications are reviewed. We will continue to follow make recommendations along the way. The patient's overall prognosis remains guarded. Dictation was produced using [employer] software. Please excuse any grammatical, word or spelling errors. Plan dated October 10, 2024. The patient is seen today in room 361. He is resting comfortably in bed. He continues on O2 at 2 L. He is awake and alert. Saturations are in the mid 90s. He denies any pulmonary issues including shortness of breath, cough, wheezing, chest tightness, or phlegm production. Labs, x-rays, and all medications are reviewed. We will continue to follow the patient, make recommendations along the way. Prognosis is guarded. Dictation was produced using [employer] software. Please excuse any grammatical, word or spelling errors. Plan dated October 11, 2024. The patient is doing about the same. His respiratory status is stable. Currently, the patient is on 2 L. All labs, x-rays, and medications are reviewed. The patient denies any chest pain or pressure. He also denies any shortness of breath, cough, wheezing, chest tightness, or phlegm production. We will continue to follow. Prognosis is guarded. Dictation was produced using [employer] software. Please excuse any grammatical, word or spelling er rors. Time with Patient: Less than 30
[2024-10-11 11:30] LABS: Glucose,Whole Blood 265 mg/dL (70-110)
--- NOTE | 2024-10-11 12:18 | P.PN ---
Subjective Patient is seen for follow-up for acute kidney injury and hyperkalemia. No significant complaints today. Good urine output. Patient has an external catheter. Bladder scan does not show any urine retention. Serum creatinine at 1.1 mg/dL. Potassium improved to 4.7 today. Blood sugar remains elevated on and off Maintained on IV Lasix Objective - Vital Signs Vital signs: Vital Signs Temp 98.1 F 10/11/24 11:25 Pulse 75 10/11/24 11:25 Resp 18 10/11/24 11:25 BP 101/64 10/11/24 11:25 Pulse Ox 94 L 10/11/24 11:25 FiO2 40 10/10/24 03:42 Intake & Output 10/10/24 10/11/24 10/11/24 18:59 06:59 18:59 Intake Total 496 20 180 Output Total 450 625 Balance 46 -605 180 Weight 105.5 kg Intake: IV 20 20 Invasive Line 7 20 20 Oral 476 180 Output: Urine 450 625 Other: Voiding Method External Catheter External Catheter External Catheter # Bowel Movements 1 - Exam Patient is awake, comfortable, no acute distress Examination of the heart S1 and S2 Examination of the lungs bilateral breath sounds are heard Abdomen is soft obese nontender Bilateral [employer]IAN exam grossly intact - Labs CBC & Chem 7: 10/11/24 06:10 10/11/24 06:10 Labs: Abnormal Lab Results - Last 24 Hours (Table) 10/09/24 10/10/24 10/10/24 Range/Units 06:42 16:25 20:00 RBC (4.40-5.60) 10*6/uL MCV (80.0-97.0) fL MCH (27.0-32.0) pg MCHC (32.0-37.0) g/dL Plt Count 85 L (140-440) 10*3/uL Immature Gran # (0.00-0.04) 10*3/uL Eosinophils # (0.04-0.35) 10*3/uL Sodium (137-145) mmol/L Chloride (98-107) mmol/L Carbon Dioxide (22-30) mmol/L BUN (9-20) mg/dL Glucose (74-99) mg/dL POC Glucose (mg/dL) 221 H 253 H (70-110) mg/dL 10/11/24 10/11/24 10/11/24 Range/Units 06:10 06:10 06:14 RBC 4.03 L (4.40-5.60) 10*6/uL MCV 105.0 H (80.0-97.0) fL MCH 33.0 H (27.0-32.0) pg MCHC 31.4 L (32.0-37.0) g/dL Plt Count 107 L (140-440) 10*3/uL Immature Gran # 0.11 H (0.00-0.04) 10*3/uL Eosinophils # 0.03 L (0.04-0.35) 10*3/uL Sodium 136 L (137-145) mmol/L Chloride 92 L (98-107) mmol/L Carbon Dioxide 36 H (22-30) mmol/L BUN 61 H (9-20) mg/dL Glucose 191 H (74-99) mg/dL POC Glucose (mg/dL) 199 H (70-110) mg/dL 10/11/24 Range/Units 11:29 RBC (4.40-5.60) 10*6/uL MCV (80.0-97.0) fL MCH (27.0-32.0) pg MCHC (32.0-37.0) g/dL Plt Count (140-440) 10*3/uL Immature Gran # (0.00-0.04) 10*3/uL Eosinophils # (0.04-0.35) 10*3/uL Sodium (137-145) mmol/L Chloride (98-107) mmol/L Carbon Dioxide (22-30) mmol/L BUN (9-20) mg/dL Glucose (74-99) mg/dL POC Glucose (mg/dL) 265 H (70-110) mg/dL Assessment and Plan Assessment: 1. Acute kidney injury secondary to ATN secondary to severe sepsis. Creatinine peaked at 1.71 this admission and is 1.1 today. Baseline creatinine near 1. Kidney ultrasound was nondiagnostic. 2. Acute RSV pneumonia. 3. Hyperkalemia secondary to acute kidney injury, Aldactone and lisinopril. Also component of hyperglycemia. Improved. No urine retention noted. Blood sugar was 407 contributing to the hyperglycemia. 4. Diabetes mellitus. s/p insulin drip. 5. Status post bilateral ammck-dpl-nrug amputations. 6. Acute hypoxic and hypercapnic respiratory failure. Maintained on nasal cannula and BiPAP on and off Plan: Change to oral diuretics Control blood sugars Repeat labs in a.m. Continue to hold DEBORA inhibitors for now mostly due to hyperkalemia.
--- NOTE | 2024-10-11 13:03 | CDI ---
Documentation Clarification Form Date: 10/11/2024 08:59:53 AM From: Darlin Garcia RN CCDS Phone: [phone] Admit Date: 09/30/2024 07:52:00 AM Patient Name: Lowell Barraza Visit Number: [id number] Discharge Date: ATTENTION: The Clinical Documentation Specialists (CDI) and [facility] Coding Staff appreciate your assistance in clarifying documentation. Please respond to the clarification below the line at the bottom and electronically sign. The CDI & [facility] Coding staff will review the response and follow-up if needed. Please note: Queries are made part of the Legal Health Record. If you have any questions, please contact the author of this message via ITS. Doctor: Luis Felipe Fraser MD The patient has Severe sepsis, 10/01 Nephrology note. Based on this information and the findings below, is there an additional diagnosis that is clinically appropriate for this patient? History/Risk Factors: 74 year old M presents to ED with shortness of breath, increasing dyspnea, fever and cough. Was sent in from [facility] via EMS. Medical History: Atrial fib, CHF, COPD, DM, HTN and Sleep Apnea. ED note, 09/30 Clinical Indicators: WBC, 09/30: 5.2 Blood cultures final 10/05: No growth after five days Vitals signs: 09/30: B/P 180/94, HR 79, Temp 101.7F Oral, RR 20, SpO2 97% 2L nc 10/01: B/P 132/76, HR 77, Temp 98.3F Oral CXR, 09/30: Mild left lower lobe infiltrate ED Respiratory exam, 09/30: Respiratory distress, wheezes Treatment: Antibiotics: 09/30 Ceftriaxone IVPB x 1; 09/30 Azithromycin IVPB x 1; 10/01 Ceftriaxone IVPB Q24H x 4 bags; 10/04 Ceftriaxone IVPB Q24H x 1 bag Is there an additional diagnosis that is clinically appropriate for this patient? [ ] Sepsis Ruled Out [ x ] Severe Sepsis present on admission [ ] SIRS, without underlying infectious process [ ] No additional diagnosis/not clinically significant [ ] Other, please specify [ ] Unable to determine SIRS Criteria: 2 or more of the following may indicate SIRS Temperature < 96.8F (36C) or > 101.0F (38.3C) Heart Rate > 90 bpm Respiratory Rate > 20 breaths/min or PaCO2 < 32 mmHg White Blood Cell Count > 12,000 or < 4,000 cells/mm3 or > 10% bands (Template Last Reviewed: June 2022) MTDD
[2024-10-11 16:26] LABS: Glucose,Whole Blood 266 mg/dL (70-110)
[2024-10-11] MEDS: FUROSEMIDE 40 MG TAB PO SCH (16:50)
[2024-10-11 20:16] LABS: Glucose,Whole Blood 261 mg/dL (70-110)
[2024-10-12 06:14] LABS: Glucose,Whole Blood 201 mg/dL (70-110)
[2024-10-12 06:36] LABS: Basophils # (A) 0.01 10*3/uL (0.00-0.10); Basophils % (A) 0.1 %; Eosinophils # (A) 0.03 10*3/uL (0.04-0.35); Eosinophils % (A) 0.4 %; HCT 40.7 % (39.6-50.0); Lymphocytes % (A) 17.2 %; MCH 33.4 pg (27.0-32.0); MCHC 31.9 g/dL (32.0-37.0); MCV 104.6 fL (80.0-97.0); Mean Platelet Volume 10.9 fL (9.5-12.2); Monocytes # (A) 0.48 10*3/uL (0.20-1.00); Monocytes % (A) 6.9 %; Neutrophils # (A) 5.18 10*3/uL (1.80-7.70); Neutrophils % (A) 74.1 %; Platelet Count 107 10*3/uL (140-440); RBC 3.89 10*6/uL (4.40-5.60); RDW 14.9 % (11.5-14.5); WBC 6.99 10*3/uL (4.50-10.00)
[2024-10-12] MEDS: INSULIN LISPRO (HumaLOG) 100 UNIT/ML 10 mL VL SQ SCH (06:40)
[2024-10-12 06:51] LABS: African American GFR (CKD) 80 (>60 ml/min/1.73 sqM); Anion Gap 3 mmol/L; Blood Urea Nitrogen 64 mg/dL (9-20); Calcium 8.8 mg/dL (8.4-10.2); Carbon Dioxide 39 mmol/L (22-30); Chloride 94 mmol/L (98-107); Glucose 171 mg/dL (74-99); Non-African American GFR(CKD) 70 (>60 ml/min/1.73 sqM); Potassium 4.5 mmol/L (3.5-5.1); Sodium 136 mmol/L (137-145)
--- NOTE | 2024-10-12 10:49 | P.PN ---
Subjective Progress Note Date: 10/11/24 74-year-old gentleman with past medical history significant for atrial fibrillation, CAD, congestive heart failure, hypertension, hyperlipidemia, presents the ER after being sent in from [facility] for shortness of breath. Patient stated that he has been feeling sick for the last couple of days, complaining of shortness of breath at rest as on exertion, patient also complaining of cough. Patient also noted that he was having fever. There was no complaint of chills. Patient denied any chest pain. There was no complaint of orthopnea or PND there was no complaint of nausea, vomiting or abdominal pain. Because of this shortness of breath and fever, patient was sent to the ER Initial lab work done in the ER showed WBC 5.2, hemoglobin 13.6, platelet count 105, sodium 133, potassium 6.2, BUN 57, creatinine 1.39 glucose 349, lactate 1.4, AST 76, ALT 59, troponin 0.027 Influenza A not detected Influenza B not detected RSV detected COVID-19 not detected EKG done in the ER showed heart rate of 82, no ST segment elevation or depression seen, no T-wave inversions seen. Chest x-ray done in the ER showed left lower lobe infiltrate Patient admitted to internal medicine service 10/06/2024 - patient seen and evaluated in room at bedside; remains on BiPAP - patient had an ultrasound of the chest yesterday to evaluate for possible left pleural effusion, the findings are mostly findings of atelectasis and consolidation in the left lower lobe - Pulmonary service on board; patient has obesity/hypoventilation syndrome contributing to his atelectasis, pulmonary recommending incentive spirometry will need aggressive encouragement for deep coughing and deep breathing. Patien t is recommended to use the BiPAP as often as possible. - Blood work reveals WBC of 2.9, hemoglobin of 12.7 and platelet count of 65, sodium 136, potassium 4.9, BUNs/creatinine 55/1.20 and blood glucose of 251 - Patient admitted with acute hypoxic/hypercapnic respiratory failure with RSV infection resulting in acute exacerbation of COPD - Patient is to remain on BiPAP; has been transition to oral steroids prednisone 20 mg daily - Continue with droplet isolation given patient positive for RSV 10/07/2024 - patient seen and evaluated in room at bedside; currently on BiPAP, seems to be doing better, breathing easier, he has a good cough - Chest x-ray completed yesterday revealed significant atelectasis noted in the left lower lobe no effusion noticed on ultrasound of the chest. Pulmonary service recommending repeat chest x-ray in next 24 hours - Patient has WBC of 5.8 hemoglobin 12.9 electrolytes are normal except for potassium of 5.3 potassium 52 creatinine 0.84. Continue O2 via nasal cannula titrate FiO2 down maintain O2 saturation just above 88%; bronchodilators; insulin; DuoNeb updrafts Continue prednisone at 20 mg daily Continue to titrate oxygen accordingly on BiPAP. 10/08/2024 Patient is awake and alert. Shortness of breath is improved. No complaints of chest pain. Complains of cough without any sputum production. Patient is currently on 2 L oxygen via nasal cannula. He did require BiPAP overnight. Chest x-ray showed improvement in previous demonstrated left mid to lower lung airspace opacities with the left midlung linear atelectasis. Trace bilateral pleural effusion. Patient was given a dose of IV Lasix today. Blood sugar is elevated and insulin dose is being titrated. Patient is on prednisone 20 mg daily and also on anticoagulation with Eliquis. Laboratory data showed WBC 8.4 hemoglobin 12.3 and platelets 79 sodium 136 potassium 5.6 chloride 97 bicarb 33 BUN 6020 creatinine 0.88 and blood sugar 192. Calcium 8.4. 10/09/2024 Patient is resting in the bed. Awake alert and oriented x 3. Currently requiring 2 L oxygen via nasal cannula. Patient did use BiPAP overnight. Continue on IV Lasix. Laboratory data showed WBC 6.8 hemoglobin 13.2 and platelets 85 sodium 134 potassium 5.2 chloride 94 bicarb is 36 BUN 64 and creatinine 0.98 and blood sugar 191 and calcium 8.7. Blood cultures negative. Nephrology and pulmonary is on board. 10/10/2024 Patient was lying in the bed. Awake alert and oriented x 3. Denied any com plaints of chest pain or worsening shortness of breath. Requiring 2 L of oxygen via nasal cannula. No acute overnight issues. No cough or sputum production. Patient has been afebrile. Remains on IV Lasix 40 mg twice daily. Lab data showed sodium 133 potassium 4.2 chloride 89 bicarb is 39 BUN 61 and creatinine 1.05 blood sugar 204. Patient is on prednisone 20 mg daily. Anticipate discharge in the next 24 hours. 10/11/2024 Patient is resting in the bed. Awake alert and oriented x 3 no complaints of chest pain or worsening shortness of breath. Currently on 2 L oxygen via nasal cannula. Hemodynamically stable. Patient is being continued on IV Lasix will be changed to p.o. today. Laboratory data showed WBC 6.9 hemoglobin 13.3 and platelets 107 sodium 136 potassium 4.7 chloride 92 bicarb is 36 BUN 61 creatinine 1.17 and blood sugar 199. Anticipate discharge plan to rehab in the next 24 hours. Current medications reviewed. Objective - Vital Signs Vital signs: Vital Signs Temp 98.3 F 10/11/24 16:45 Pulse 61 10/11/24 16:45 Resp 17 10/11/24 16:45 BP 105/65 10/11/24 16:45 Pulse Ox 96 10/11/24 16:45 FiO2 40 10/10/24 03:42 Intake & Output 10/11/24 10/11/24 10/12/24 06:59 18:59 06:59 Intake Total 20 620 Output Total 625 1000 Balance -605 -380 Weight 105.5 kg Intake: IV 20 20 Invasive Line 7 20 20 Oral 600 Output: Urine 625 1000 Other: Voiding Method External Catheter External Catheter # Bowel Movements 1 - Exam - Exam GENERAL: The patient is alert and oriented x3, not in any acute distress. Well developed, well nourished. HEENT: Pupils are round and equally reacting to light. EOMI. No scleral icterus. No conjunctival pallor. Normocephalic, atraumatic. No pharyngeal erythema. No thyromegaly. CARDIOVASCULAR: S1 and S2 present. No murmurs, rubs, or gallops. -PULMONARY: Chest is clear to auscultation, scattered wheezing , mild bilateral crackles. ABDOMEN: Soft, nontender, nondistended, normoactive bowel sounds. No palpable organomegaly. MUSCULOSKELETAL: No joint swelling or deformity. EXTREMITIES: No cyanosis, clubbing, or pedal edema. NEUROLOGICAL: Gross neurological examination did not reveal any focal deficits. SKIN: No rashes. no petechiae. - Labs CBC & Chem 7: 10/12/24 05:52 10/12/24 05:52 Labs: Abnormal Lab Results - Last 24 Hours (Table) 10/11/24 10/11/24 10/11/24 Range/Units 06:10 06:10 06:14 RBC 4.03 L (4.40-5.60) 10*6/uL MCV 105.0 H (80.0-97.0) fL MCH 33.0 H (27.0-32.0) pg MCHC 31.4 L (32.0-37.0) g/dL Plt Count 107 L (140-440) 10*3/uL Immature Gran # 0.11 H (0.00-0.04) 10*3/uL Eosinophils # 0.03 L (0.04-0.35) 10*3/uL Sodium 136 L (137-145) mmol/L Chloride 92 L (98-107) mmol/L Carbon Dioxide 36 H (22-30) mmol/L BUN 61 H (9-20) mg/dL Glucose 191 H (74-99) mg/dL POC Glucose (mg/dL) 199 H (70-110) mg/dL 10/11/24 10/11/24 10/11/24 Range/Units 11:29 16:25 20:14 RBC (4.40-5.60) 10*6/uL MCV (80.0-97.0) fL MCH (27.0-32.0) pg MCHC (32.0-37.0) g/dL Plt Count (140-440) 10*3/uL Immature Gran # (0.00-0.04) 10*3/uL Eosinophils # (0.04-0.35) 10*3/uL Sodium (137-145) mmol/L Chloride (98-107) mmol/L Carbon Dioxide (22-30) mmol/L BUN (9-20) mg/dL Glucose (74-99) mg/dL POC Glucose (mg/dL) 265 H 266 H 261 H (70-110) mg/dL Assessment and Plan Assessment: Acute hypoxic respiratory failure. Patient did require BiPAP overnight. Currently on 2 L oxygen via nasal cannula. Acute RSV infection Acute COPD exacerbation Pneumonia Acute on chronic kidney injury stage II Chronic atrial fibrillation on Eliquis CHF with ejection fraction 40 to 45%, chronic Hypertension Hyperlipidemia Diabetes mellitus type 2 insulin-dependent uncontrolled with hyperglycemia Obesity Severe peripheral artery disease History of gout Fatty liver History of iron deficiency History of bilateral BKA Plan: Patient will be continued on oxygen supplementation. BiPAP as needed. Currently requiring 2 L oxygen via nasal cannula. m air. Completed antibiotic course with Zithromax. Continue with Eliquis Continue with insulin regimen and titrate dose and monitor glucose normal. Continue with the steroid, prednisone tapering course. Currently on prednisone 20 mg daily. Patient was started on IV Lasix 40 mg every 12 and monitor renal function. Changed to p.o. today. Monitor creatinine and hemoglobin Nephrology and pulmonary is on board. DVT prophylaxis: Eliquis GI prophylaxis: Pepcid Prognosis is guarded Time with Patient: Greater than 30
--- NOTE | 2024-10-12 11:00 | P.PN ---
Subjective Progress Note Date: 10/12/24 Principal diagnosis: Pneumonia, COPD exacerbation. This is a 74-year-old male patient was brought into the hospital with increased shortness of breath. The patient resides in [facility] and the patient was experiencing his dyspnea along with fever and cough and the symptoms have been going on for past couple of days. The patient denies having any chest pain. He came into the emergency and the patient was found to have a fever with a temperature of 101.7. Hemodynamically stable. He was hyper tensive. He is currently on 4 L of oxygen by nasal cannula with a pulse ox of 94%. Blood work that was done emergency department showed a white cell count of 5.2 with a hemo globin of 13.6 and a platelet count of 105. He had a component of an acute kidney injury. His K level was at 6.2 this morning with a sodium level of 133, BUN of 57 with a creatinine of 1.39 which came up to 1.47. LFTs were mildly disturbed with an AST of 76, ALT of 59 and alkaline phosphatase of 161. Troponins are negative. The patient was found to have an acute RSV infection. The viral screen was positive for history. Based on that, the patient was hospitalized and a pulmonary consultation was requested. Nephrology consultation was also requested regarding this acute kidney injury Chest x-ray was reviewed and it shows diminished lung volumes bilaterally, pulm vasculature was within normal limits. Some limited left midlung infiltrate versus atelectasis was noted. This patient has an extensive history and multiple medical problems and comorbidities. For that reason, the patient has been essentially maintained at [facility]. The patient was treated back in January 2024 for a severe gangrenous right lower extremity and the patient underwent a above-knee amputation and subsequent antibiotic treatment for MRSA and Proteus. He is known to have COPD, severe peripheral vascular disease and he has already undergone a previous left above-knee amputation on the left. He has chronic A- fib, hypertension, severe ischemic cardiomyopathy with a previous echocardiogram showing an ejection fraction 40 to 45%, type 2 diabetes mellitus, chronic kidney disease, stage II, BPH and he also suffers from hypertension, BPH, obstructive sleep apnea, for which she has been maintained on CPAP therapy, chronic fatty liver disease and gout. Patient was seen today on 10/01/2024, patient was transferred to the ICU last night, he developed apparently obtundation, hypercapnia, and significantly elevated pCO2 with low pH, required placement on BiPAP 16/5/50% ABG showed a pO2 this morning of 103 pCO2 72 pH of 7.23, ABG prior showed a pO2 of 60 pCO2 of 93 pH of 7.12 prior to placement on BiPAP. Patient remains obtunded, arousable, but does not follow instructions. Remains on IV Solu-Medrol at 40 every 8, remains on antibiotics and is also on Eliquis, chest x-ray showed left lower lo be atelectasis/and or infiltrate. WBC count is 5.7 hemoglobin 13.8 electrolytes are normal potassium is down to 5.2 BUN is 64 creatinine 1.71 glucose 459 patient had positive RSV screening by PCR. Procalcitonin level is 0.22. Apparently the patient was obtunded last night, seen by the a team and he was transferred to the ICU at 630 this morning and placed on BiPAP 16/5/50% however I cut him down to 40%. IV fluid is 0.9 normal saline at 60 cc/h Patient was seen today on 10/02/2024, remains in the ICU, we were able to transition him to 4 L nasal cannula, he is on insulin at 5.1 units/h he is off BiPAP, 0.9 normal saline at 60 cc/h. Last night he was on BiPAP 16/5/40%. Remains on antibiotics, remains on Eliquis, significant improvement compared to yesterday. I felt yesterday he was close to be intubated and mechanically ventilated if he did not do well with BiPAP. Apparently the patient did well overnight and now he is on nasal cannula. WBC count is 6.27 hemoglobin is 12.9 electrolytes are normal BUN is 68 creatinine is coming down to 1.33, patient had positive RSV PCR on admission. Chest x-ray is showing improving infiltrate in the left lower lobe. Seen today on 10/03/2024, remains in the ICU, he had to go on BiPAP yesterday 16/5/40%, this morning the patient is more awake, alert and appropriate, he was transitioned to 6 L nasal cannula. Patient seems to be comfortable, not in any distress. CBC is relatively normal, basic metabolic profile is normal except for slightly elevated potassium of 5.4, BUN is 75 creatinine is 1.44 close to his baseline. Chest x-ray today continues show left basilar atelectasis and possibly a small pleural effusion. Patient was seen today on 10/04/2024, patient was transferred out of the ICU today, was on BiPAP last night but today he is on nasal cannula at 2 L/min and O2 sat is 94%, he is hemodynamically stable, patient denies any shortness of breath or cough or wheezing. Patient is morbidly obese, and he is known to have history of obstructive sleep apnea patient is a care home resident. WBC count is 3.1 hemoglobin 12.2 potassium is 5.2 BUN is 71 creatinine 1.36, improving blood sugar is 283 Seen today on 10/05/2024, patient is doing well, he is requiring BiPAP intermittently, but overall significant improvement noted since admission. He is awake today, not in any distress, on BiPAP. Continues to have slightly eleva anitra potassium of 5.5, renal profile showed BUN of 64 creatinine 0.99, bicarb is 26 CBC is relatively normal. Chest x-ray done yesterday showed worsening atelectasis and possibly a small left pleural effusion hence I am recommending an ultrasound of the chest on this patient. Considering the worsening chest x- ray, patient may not be ready for discharge planning at this point. This needs to be further addressed, again I am recommending ultrasound, patient may have to be more often on BiPAP as the patient has very shallow breathing when he is not on BiPAP. And he has low volumes contributing to his left lower lobe atelectasis. Seen today on 10/06/2024, patient remains on BiPAP, 16/5/40%, patient had an ultrasound of the chest yesterday to evaluate for possible left pleural effusion, there is not much fluid to drain, the findings are mostly findings of atelectasis and consolidation in the left lower lobe, I believe the patient has obesity/hypoventilation syndrome contributing to his atelectasis, and the patient will need incentive spirometry will need aggressive encouragement for deep coughing and deep breathing. And should use the BiPAP as often as possible. Labs today showed relatively normal electrolytes, BUN is 55 creat 1.20, slightly worse compared to yesterday but better than the days prior. Patient himself does not seem to be complaining of much of shortness of breath. Seen today on 10/07/2024, patient is on nasal cannula today, off BiPAP, seems to be doing better, breathing easier, he has a good cough, seems to be alert and oriented, yesterday I was quite concerned about his significant atelectasis noted in the left lower lobe no effusion noticed on ultrasound of the chest. Patient has WBC of 5.8 hemoglobin 12.9 electrolytes are normal except for potassium of 5.3 potassium 52 creatinine 0.84. Will definitely need follow-up chest x-ray in the next 24 hours. Progress note dated October 08, 2024. 75-year-old male seen today in room 361. The patient is now been in the hospital for 8 days. He is resting comfortably in bed. He is on oxygen by nasal cannula 2 L. He does have the BiPAP in the room, and it was used at nighttime, with settings of 16/5, to 40%. The patient also did test positive for RSV. Current laboratory data includes a white count of 8.4, hemoglobin 12.3, hematocrit 39.1, and a platelet count of 79,000. Sodium 134, potassium 5.6, chloride 97, CO2 33, BUN 62, and creatinine 0.88. Glucose was 170. Calcium was 8.4. Chest x-ray shows significant improvement in the airspace disease, at the left midlung and left base. Progress note dated October 09, 2024. 74-year-old male, seen again in room 361. Currently, he is resting comfortably in bed. He has no specific complaints. The patient is currently on 2 L of oxygen by nasal cannula. He is not receiving any IV fluids. The patient did test positive for RSV, on September 30. Laboratory data from today includes a white count of 6.9, hemoglobin 13.7, hematocrit 41.3, and a platelet count of 85,000. Sodium 134, potassium 5.2, chlorides 94, CO2 36, BUN 64, creatinine 0.98. Gl ucose is 140. Calcium is 8.7. Microbiology data is negative. Chest x-ray was done yesterday, not today. Progress note dated October 10, 2024. 74-year-old male seen in room 361. The patient is resting comfortably in bed. He is currently on 2 L of oxygen. No IV fluids. The patient is awake and alert, without any distress. He denies any shortness of breath, difficulty breathing, coughing, wheezing, chest tightness, or phlegm production. He also denies any chest complaints including chest pain or pressure. Sodium 133, potassium 4.2, chloride 89, CO2 39, BUN 61, creatinine 1.05. Glucose 196. Calcium 8.4. Progress note dated October 11, 2024. 75-year-old male seen today in room 361. The patient is lying in bed. He is currently on oxygen by nasal cannula 2 L. He denies any shortness of breath, cough, wheezing, chest tightness, or phlegm production. He denies any distress. He is alert and awake. White count is 6.94, hemoglobin 13.3, hematocrit 42.3, and platelet count 107,000. Sodium 136, potassium 4.7, chlorides 92, CO2 36, BUN 61, and creatinine 1.17. Glucose was 199. Calcium is 8.7. Progress note dated October 12, 2024. 75-year-old male seen today in room 361. The patient is currently on 2 L of oxygen by nasal cannula. The patient does apparently use BiPAP at nighttime, with settings of 16/5, and 40%. He would likely be discharged on oxygen, and nocturnal BiPAP therapy. Clinically, he is doing well. He is alert and awake. He is in no distress. Current labs include a white count of 6.99, hemoglobin 13, hematocrit 40.7, and a platelet count of 107,000. Sodium 136, potassium 4.5, chloride 94, CO2 39, BUN 64, creatinine 1.07. Glucose is 201. Calcium 8.8. Objective - Vital Signs Vital signs: Vital Signs Temp 97.8 F 10/12/24 07:40 Pulse 61 10/12/24 07:40 Resp 20 10/12/24 07:40 BP 125/85 10/12/24 07:40 Pulse Ox 97 10/12/24 07:40 FiO2 40 10/10/24 03:42 Intake & Output 10/11/24 10/12/24 10/12/24 18:59 06:59 18:59 Intake Total 620 260 Output Total 1000 1000 Balance -380 -740 Weight 105.5 kg Intake: IV 20 20 Invasive Line 7 20 20 Oral 600 240 Output: Urine 1000 1000 Other: Voiding Method External Catheter External Catheter # Voids 1 # Bowel Movements 1 - Exam No acute distress, oriented 3. Currently on 2 L of oxygen by nasal cannula. HEENT examination is grossly unremarkable. Mucous membranes are moist. No oral lesions. Neck supple. Full range of motion. No adenopathy thyromegaly or neck vein distention. Cardiovascular examination reveals regular rhythm rate. S1-S2 normal. No S3 or S4. Soft systolic murmur is noted. Lungs reveal mostly clear breath sounds. Minimal scattered rhonchi. No wheezes or crackles. Breath sounds are equal bilaterally. Abdomen soft bowel sounds are heard. No masses or tenderness. Extremities reveal bilateral [id number] amputations. Skin is without rash or lesion. Neurologic examination is brief but nonfocal. - Labs CBC & Chem 7: 10/12/24 05:52 10/12/24 05:52 Labs: Abnormal Lab Results - Last 24 Hours (Table) 10/11/24 10/11/24 10/11/24 Range/Units 11:29 16:25 20:14 RBC (4.40-5.60) 10*6/uL MCV (80.0-97.0) fL MCH (27.0-32.0) pg MCHC (32.0-37.0) g/dL Plt Count (140-440) 10*3/uL Immature Gran # (0.00-0.04) 10*3/uL Eosinophils # (0.04-0.35) 10*3/uL Sodium (137-145) mmol/L Chloride (98-107) mmol/L Carbon Dioxide (22-30) mmol/L BUN (9-20) mg/dL Glucose (74-99) mg/dL POC Glucose (mg/dL) 265 H 266 H 261 H (70-110) mg/dL 10/12/24 10/12/24 10/12/24 Range/Units 05:52 05:52 06:13 RBC 3.89 L (4.40-5.60) 10*6/uL MCV 104.6 H (80.0-97.0) fL MCH 33.4 H (27.0-32.0) pg MCHC 31.9 L (32.0-37.0) g/dL Plt Count 107 L (140-440) 10*3/uL Immature Gran # 0.09 H (0.00-0.04) 10*3/uL Eosinophils # 0.03 L (0.04-0.35) 10*3/uL Sodium 136 L (137-145) mmol/L Chloride 94 L (98-107) mmol/L Carbon Dioxide 39 H (22-30) mmol/L BUN 64 H (9-20) mg/dL Glucose 171 H (74-99) mg/dL POC Glucose (mg/dL) 201 H (70-110) mg/dL Assessment and Plan Assessment: Acute hypoxemic and hypercapnic respiratory failure. Acute RSV infection. Acute on chronic stage II kidney disease. Acute hyperkalemia, resolved. Acute COPD exacerbation. History of obstructive sleep apnea syndrome. Probable Pickwickian syndrome. Chronic atrial fibrillation. Congestive heart failure with reduced ejection fraction. Severe pulmonary hypertension. Severe PAD. Type 2 diabetes mellitus. Degenerative arthritis. Gout. Fatty liver disease. Benign essential hypertension. Bilateral below the knee amputation. Metabolic encephalopathy. Left lower lobe atelectasis, with left-sided pleural effusion. Plan: Plan dated October 08, 2024. The patient is seen today in room 361. The patient continues on nasal O2 2 L. The patient is currently on 2 L of oxygen, but he does use a BiPAP intermittently. The patient continues on appropriate medications including bronchodilators, prednisone, Eliquis, and antibiotics. Labs, x-rays, and all medications are reviewed. We will continue to follow make recommendations along the way. Overall prognosis remains guarded. We recommend continued use of the incentive spirometer, hourly, and deep breathing, coughing, and clearing of secretions. Dictation was produced using [employer]ve software. Please excuse any grammatical, word or spelling errors. Plan dated October 09, 2024. The patient appears to be relatively stable. He is on 2 L of oxygen. He denies any shortness of breath, difficulty breathing, cough, wheezing, chest tightness, or phlegm production. Likewise, the patient denies any chest pain or pressure. He is not coughing or producing any phlegm. Labs, x-rays, and medications are reviewed. We will continue to follow make recommendations along the way. The patient's overall prognosis remains guarded. Dictation was produced using Trove software. Please excuse any grammatical, word or spelling errors. Plan dated October 10, 2024. The patient is seen today in room 361. He is resting comfortably in bed. He continues on O2 at 2 L. He is awake and alert. Saturations are in the mid 90s. He denies any pulmonary issues including shortness of breath, cough, wheezing, chest tightness, or phlegm production. Labs, x-rays, and all medications are reviewed. We will continue to follow the patient, make recommendations along the way. Prognosis is guarded. Dictation was produced using [employer]ve software. Please excuse any grammatical, word or spelling errors. Plan dated October 11, 2024. The patient is doing about the same. His respiratory status is stable. Currently, the patient is on 2 L. All labs, x-rays, and medications are reviewed. The patient denies any chest pain or pressure. He also denies any shortness of breath, cough, wheezing, chest tightness, or phlegm production. We will continue to follow. Prognosis is guarded. Dictation was produced using [employer] software. Please excuse any grammatical, word or spelling errors. Plan dated October 12, 2024. The patient is doing about the same. He is resting comfortably in bed. He is on nasal O2 at 2 L. The patient does use the BiPAP on a nightly basis, with settings of 16/5, and 40%. From our opinion, the patient could be considered for possible discharge. Labs, x-rays, and all medications are reviewed. The patient is alert and awake. He is not manifesting any signs or symptoms of respiratory distress. We will continue to follow. Dictation was produced using [employer]ve software. Please excuse any grammatical, word or spelling errors. Time with Patient: Less than 30
[2024-10-12 11:31] VITALS: BP 107/69; RESP 18; TEMP 98.2
[2024-10-12 11:48] LABS: Glucose,Whole Blood 263 mg/dL (70-110)
--- NOTE | 2024-10-12 14:24 | P.DS ---
Providers Date of admission: 09/30/24 07:52 Expected date of discharge: 10/12/24 Attending physician: Winter Bunch Consults: 09/30/24 07:52 Consult Physician Routine Consulting Provider: uArea Cohen Consult Reason/Comments: COPD, RSV Do you want consulting provider notified?: Yes 09/30/24 09:36 Consult Physician Routine Consulting Provider: Delmis Diaz Consult Reason/Comments: Hyperkalemia, BEV Do you want consulting provider notified?: Yes Primary care physician: [facility] Course: Discharge diagnosis Acute hypoxic respiratory failure. BiPAP as needed at night. Currently on 2 L oxygen via nasal cannula. Acute RSV infection Acute COPD exacerbation. Improved. Pneumonia Acute on chronic kidney injury stage II Chronic atrial fibrillation on Eliquis CHF with ejection fraction 40 to 45%, chronic Hypertension Hyperlipidemia Diabetes mellitus type 2 insulin-dependent uncontrolled with hyperglycemia Obesity Severe peripheral artery disease History of gout Fatty liver History of iron deficiency History of bilateral BKA Hospital course 74-year-old gentleman with past medical history significant for atrial fibrillation, CAD, congestive heart failure, hypertension, hyperlipidemia, presents the ER after being sent in from [facility] for shortness of breath. Patient stated that he has been feeling sick for the last couple of days, complaining of shortness of breath at rest as on exertion, patient also complaining of cough. Patient also noted that he was having fever. There was no complaint of chills. Patient denied any chest pain. There was no complaint of orthopnea or PND there was no complaint of nausea, vomiting or abdominal pain. Because of this shortness of breath and fever, patient was sent to the ER Initial lab work done in the ER showed WBC 5.2, hemoglobin 13.6, platelet count 105, sodium 133, potassium 6.2, BUN 57, creatinine 1.39 glucose 349, lactate 1.4, AST 76, ALT 59, troponin 0.027 Influenza A not detected Influenza B not detected RSV detected COVID-19 not detected EKG done in the ER showed heart rate of 82, no ST segment elevation or depression seen, no T-wave inversions seen. Chest x-ray done in the ER showed left lower lobe infiltrate Patient admitted to internal medicine service 10/06/2024 - patient seen and evaluated in room at bedside; remains on BiPAP - patient had an ultrasound of the chest yesterday to evaluate for possible left pleural effusion, the findings are mostly findings of atelectasis and consolidation in the left lower lobe - Pulmonary service on board; patient has obesity/hypoventilation syndrome contributing to his atelectasis, pulmonary recommending incentive spirometry will need aggressive encouragement for deep coughing and deep breathing. Patient is recommended to use the BiPAP as often as possible. - Blood work reveals WBC of 2.9, hemoglobin of 12.7 and platelet count of 65, sodium 136, potassium 4.9, BUNs/creatinine 55/1.20 and blood glucose of 251 - Patient admitted with acute hypoxic/hypercapnic respiratory failure with RSV infection resulting in acute exacerbation of COPD - Patient is to remain on BiPAP; has been transition to oral steroids prednisone 20 mg daily - Continue with droplet isolation given patient positive for RSV 10/07/2024 - patient seen and evaluated in room at bedside; currently on BiPAP, seems to be doing better, breathing easier, he has a good cough - Chest x-ray completed yesterday revealed significant atelectasis noted in the left lower lobe no effusion noticed on ultrasound of the chest. Pulmonary service recommending repeat chest x-ray in next 24 hours - Patient has WBC of 5.8 hemoglobin 12.9 electrolytes are normal except for potassium of 5.3 potassium 52 creatinine 0.84. Continue O2 via nasal cannula titrate FiO2 down maintain O2 saturation just above 88%; bronchodilators; insulin; DuoNeb updrafts Continue prednisone at 20 mg daily Continue to titrate oxygen accordingly on BiPAP. 10/08/2024 Patient is awake and alert. Shortness of breath is improved. No complaints of chest pain. Complains of cough without any sputum production. Patient is currently on 2 L oxygen via nasal cannula. He did require BiPAP overnight. Chest x-ray showed improvement in previous demonstrated left mid to lower lung airspace opacities with the left midlung linear atelectasis. Trace bilateral pleural effusion. Patient was given a dose of IV Lasix today. Blood sugar is elevated and insulin dose is being titrated. Patient is on prednisone 20 mg daily and also on anticoagulation with Eliquis. Laboratory data showed WBC 8.4 hemoglobin 12.3 and platelets 79 sodium 136 potassium 5.6 chloride 97 bicarb 33 BUN 6020 creatinine 0.88 and blood sugar 192. Calcium 8.4. 10/09/2024 Patient is resting in the bed. Awake alert and oriented x 3. Currently requiring 2 L oxygen via nasal cannula. Patient did use BiPAP overnight. Continue on IV Lasix. Laboratory data showed WBC 6.8 hemoglobin 13.2 and platelets 85 sodium 134 potassium 5.2 chloride 94 bicarb is 36 BUN 64 and creatinine 0.98 and blood sugar 191 and calcium 8.7. Blood cultures negative. Nephrology and pulmonary is on board. 10/10/2024 Patient was lying in the bed. Awake alert and oriented x 3. Denied any complaints of chest pain or worsening shortness of breath. Requiring 2 L of oxygen via nasal cannula. No acute overnight issues. No cough or sputum production. Patient has been afebrile. Remains on IV Lasix 40 mg twice daily. Lab data showed sodium 133 potassium 4.2 chloride 89 bicarb is 39 BUN 61 and creatinine 1.05 blood sugar 204. Patient is on prednisone 20 mg daily. Anticipate discharge in the next 24 hours. 10/11/2024 Patient is resting in the bed. Awake alert and oriented x 3 no complaints of chest pain or worsening shortness of breath. Currently on 2 L oxygen via nasal cannula. Hemodynamically stable. Patient is being continued on IV Lasix will be changed to p.o. today. Laboratory data showed WBC 6.9 hemoglobin 13.3 and platelets 107 sodium 136 potassium 4.7 chloride 92 bicarb is 36 BUN 61 creatinine 1.17 and blood sugar 199. Anticipate discharge plan to rehab in the next 24 hours. 10/12/2024 Patient is lying in the bed. Awake alert and oriented x 3. No complaints of chest pain or worsening shortness of breath. Currently requiring 2 L oxygen via nasal cannula. Patient will be continued on prednisone tapering course and continuous oxygen supplementation at rehab facility. Afebrile. No nausea vomiting. Tolerating oral diet. Patient is being discharged to [facility] today. Resume cardiac medications and follow-up with primary care physician cardiology and nephrology as an outpatient. Laboratory data showed WBC 6.9 hemoglobin 13.0 and platelets 107 sodium 136 potassium 4.5 chloride 94, bicarb is 39 BUN 64 and creatinine 1.07 and blood sugar 171. Calcium 8.8. - Exam GENERAL: The patient is alert and oriented x3, not in any acute distress. Well developed, well nourished. HEENT: Pupils are round and equally reacting to light. EOMI. No scleral icterus. No conjunctival pallor. Normocephalic, atraumatic. No pharyngeal erythema. No thyromegaly. CARDIOVASCULAR: S1 and S2 present. No murmurs, rubs, or gallops. -PULMONARY: Chest is clear to auscultation, mild bilateral crackles, nonlabored breathing.. ABDOMEN: Soft, nontender, nondistended, normoactive bowel sounds. No palpable organomegaly. MUSCULOSKELETAL: No joint swelling or deformity. EXTREMITIES: No cyanosis, bilateral AKA NEUROLOGICAL: Gross neurological examination did not reveal any focal deficits. SKIN: No rashes. no petechiae. Vital Signs - 24 hr 10/11/24 10/11/24 10/12/24 16:45 20:00 00:00 Temperature 98.3 F 97.8 F Pulse Rate [ 61 97 81 Pulse Oximetery ] Respiratory 17 18 18 Rate Blood Pressure 105/65 108/68 101/61 [Left Arm] O2 Sat by Pulse 96 95 94 L Oximetry 10/12/24 10/12/24 10/12/24 04:00 07:40 11:17 Temperature 98.0 F 97.8 F 98.2 F Pulse Rate [ 89 61 89 Pulse Oximetery ] Respiratory 18 20 18 Rate Blood Pressure 100/62 125/85 107/69 [Left Arm] O2 Sat by Pulse 94 L 97 95 Oximetry Total time taken greater than 35 minutes including 18 minutes for counseling and coordination of care. Patient Condition at Discharge: Stable Plan - Discharge Summary Discharge Rx Participant: No New Discharge Prescriptions: New Furosemide [Lasix] 40 mg PO DAILY #30 tablet Furosemide [Lasix] 20 mg PO PC-SUPPER #30 tab predniSONE 10 mg PO DAILY #3 tab Continue Tamsulosin HCl [Flomax] 0.4 mg PO HS@2100 Isosorbide Mononitrate ER [Imdur] 30 mg PO DAILY@0800 allopurinoL [Zyloprim] 300 mg PO HS@2100 Digoxin [Lanoxin] 125 mcg PO DAILY@0600 Magnesium Oxide 400 mg PO HS@2100 Na Phos,M-B/Na Phos,Di-Ba [Fleet Adult] 133 ml RECTAL DAILY PRN PRN Reason: Constipation Magnesium Hydroxide [Milk of Magnesia Concentrate] 7,200 mg PO Q48H PRN PRN Reason: Constipation Spironolactone [Aldactone] 25 mg PO BID@0800,1700 Metoprolol Tartrate [Lopressor] 50 mg PO BID@0800,1700 Gabapentin [Neurontin] 100 mg PO TID@0600,1400,2200 Loperamide HCl [Imodium A-D] 2 mg PO DIRECTED PRN PRN Reason: Loose Stool Docusate [Colace] 100 mg PO Q12H PRN PRN Reason: Constipation Budesonide [Pulmicort] 0.5 mg INHALATION RT-BID #0 ml INSULIN LISPRO (HumaLOG) [HumaLOG] See Protocol SQ ACHS bisacodyL [Dulcolax] 10 mg RECTAL DAILY PRN PRN Reason: Constipation Ferrous Sulfate [Iron (65 MG Elemental)] 325 mg PO DAILY@0800 Ondansetron [Zofran] 4 mg PO Q8HR PRN PRN Reason: Nausea Multivitamins, Thera [Multivitamin (formulary)] 1 tab PO DAILY@0800 Apixaban [Eliquis] 2.5 mg PO BID@0800,1999 Ipratropium-Albuterol Nebulize [Duoneb 0.5 mg-3 mg/3 ml Soln] 3 ml INHALATION RT-QID PRN PRN Reason: Congestion Insulin Glargine (Lantus) [Lantus Vial] 30 units SQ HS@2099 Famotidine [Pepcid] 20 mg PO DAILY@0800 lisinopriL [Zestril] 10 mg PO DAILY@0800 HYDROcodone/APAP 10-325MG [Ophelia 10-325] 1 tab PO Q6HR PRN #4 tab PRN Reason: Pain INSULIN LISPRO (HumaLOG) [HumaLOG] 10 units SQ AC-TID@0 Discontinued Furosemide [Lasix] 40 mg PO DAILY@0800 Furosemide [Lasix] 20 mg PO DAILY@1400 Discharge Medication List Isosorbide Mononitrate ER [Imdur] 30 mg PO DAILY@0800 04/11/14 [History] Tamsulosin HCl [Flomax] 0.4 mg PO HS@209904/11/14 [History] allopurinoL [Zyloprim] 300 mg PO HS@209903/03/16 [History] Digoxin [Lanoxin] 125 mcg PO DAILY@0600 06/09/18 [History] Magnesium Oxide 400 mg PO HS@209912/29/20 [History] Ferrous Sulfate [Iron (65 MG Elemental)] 325 mg PO DAILY@0800 03/20/21 [History] Na Phos,M-B/Na Phos,Di-Ba [Fleet Adult] 133 ml RECTAL DAILY PRN 03/20/21 [History] bisacodyL [Dulcolax] 10 mg RECTAL DAILY PRN 03/20/21 [History] Magnesium Hydroxide [Milk of Magnesia Concentrate] 7,200 mg PO Q48H PRN 08/16/21 [History] Multivitamins, Thera [Multivitamin (formulary)] 1 tab PO DAILY@0811/13/22 [History] Ondansetron [Zofran] 4 mg PO Q8HR PRN 11/13/22 [History] Spironolactone [Aldactone] 25 mg PO BID@0800,1700 11/13/22 [History] Apixaban [Eliquis] 2.5 mg PO BID@0800,2000 10/25/23 [History] Ipratropium-Albuterol Nebulize [Duoneb 0.5 mg-3 mg/3 ml Soln] 3 ml INHALATION RT-QID PRN 10/25/23 [History] Gabapentin [Neurontin] 100 mg PO TID@0600,1400,2200 01/23/24 [History] Metoprolol Tartrate [Lopressor] 50 mg PO BID@0800,1700 01/23/24 [History] Insulin Glargine (Lantus) [Lantus Vial] 30 units SQ HS@2100 05/14/24 [History] Loperamide HCl [Imodium A-D] 2 mg PO DIRECTED PRN 05/15/24 [History] Docusate [Colace] 100 mg PO Q12H PRN 05/27/24 [History] Famotidine [Pepcid] 20 mg PO DAILY@0800 05/27/24 [History] lisinopriL [Zestril] 10 mg PO DAILY@0800 05/27/24 [History] Budesonide [Pulmicort] 0.5 mg INHALATION RT-BID #0 ml 05/28/24 [Rx] HYDROcodone/APAP 10-325MG [Ophelia 10-325] 1 tab PO Q6HR PRN #4 tab 05/28/24 [Rx] INSULIN LISPRO (HumaLOG) [HumaLOG] 10 units SQ AC-TID@07,11,1630 09/30/24 [History] INSULIN LISPRO (HumaLOG) [HumaLOG] See Protocol SQ ACHS 09/30/24 [History] Furosemide [Lasix] 20 mg PO PC-SUPPER #30 tab 10/12/24 [Rx] Furosemide [Lasix] 40 mg PO DAILY #30 tablet 10/12/24 [Rx] predniSONE 10 mg PO DAILY #3 tab 10/12/24 [Rx] Follow up Appointment(s)/Referral(s): Sean Muro MD [Primary Care Provider] - 1-2 days Jean Carlos Dupree [NON-STAFF] - 1 Week Activity/Diet/Wound Care/Special Instructions: Wear BIPAP while sleeping. Discharge Disposition: TRANSFER TO SNF/ECF
[2024-10-12 16:45] LABS: Glucose,Whole Blood 339 mg/dL (70-110)
[2024-10-12 17:26] VITALS: PULSE 76
--- NOTE | 2024-10-12 17:54 | P.PN ---
Subjective Patient is seen for follow-up for acute kidney injury and hyperkalemia. No significant complaints today. Good urine output. Patient has an external catheter. Bladder scan does not show any urine retention. Serum creatinine at 1.0 mg/dL. Potassium improved to 4.5 today. Blood sugar remains elevated on and off Switched to oral Lasix yesterday. Objective - Vital Signs Vital signs: Vital Signs Temp 98.2 F 10/12/24 11:17 Pulse 76 10/12/24 14:00 Resp 18 10/12/24 14:00 BP 107/69 10/12/24 11:17 Pulse Ox 95 10/12/24 11:17 FiO2 40 10/10/24 03:42 Intake & Output 10/11/24 10/12/24 10/12/24 18:59 06:59 18:59 Intake Total 620 260 500 Output Total 1000 1000 Balance -380 -740 500 Weight 105.5 kg Intake: IV 20 20 20 Invasive Line 7 20 20 Invasive Line 8 20 Oral 600 240 480 Output: Urine 1000 1000 Other: Voiding Method External Catheter External Catheter External Catheter # Voids 1 # Bowel Movements 1 1 - Exam Patient is awake, comfortable, no acute distress Examination of the heart S1 and S2 Examination of the lungs bilateral breath sounds are heard Abdomen is soft obese nontender Bilateral AKA [employer] exam grossly intact - Labs CBC & Chem 7: 10/12/24 05:52 10/12/24 05:52 Labs: Abnormal Lab Results - Last 24 Hours (Table) 10/11/24 10/12/24 10/12/24 Range/Units 20:14 05:52 05:52 RBC 3.89 L (4.40-5.60) 10*6/uL MCV 104.6 H (80.0-97.0) fL MCH 33.4 H (27.0-32.0) pg MCHC 31.9 L (32.0-37.0) g/dL Plt Count 107 L (140-440) 10*3/uL Immature Gran # 0.09 H (0.00-0.04) 10*3/uL Eosinophils # 0.03 L (0.04-0.35) 10*3/uL Sodium 136 L (137-145) mmol/L Chloride 94 L (98-107) mmol/L Carbon Dioxide 39 H (22-30) mmol/L BUN 64 H (9-20) mg/dL Glucose 171 H (74-99) mg/dL POC Glucose (mg/dL) 261 H (70-110) mg/dL 10/12/24 10/12/24 10/12/24 Range/Units 06:13 11:46 16:44 RBC (4.40-5.60) 10*6/uL MCV (80.0-97.0) fL MCH (27.0-32.0) pg MCHC (32.0-37.0) g/dL Plt Count (140-440) 10*3/uL Immature Gran # (0.00-0.04) 10*3/uL Eosinophils # (0.04-0.35) 10*3/uL Sodium (137-145) mmol/L Chloride (98-107) mmol/L Carbon Dioxide (22-30) mmol/L BUN (9-20) mg/dL Glucose (74-99) mg/dL POC Glucose (mg/dL) 201 H 263 H 339 H (70-110) mg/dL Assessment and Plan Assessment: 1. Acute kidney injury secondary to ATN secondary to severe sepsis. Creatinine peaked at 1.71 this admission and is 1.0 today. Baseline creatinine near 1. Kidney ultrasound was nondiagnostic. 2. Acute RSV pneumonia. 3. Hyperkalemia secondary to acute kidney injury, Aldactone and lisinopril. Also component of hyperglycemia. Improved. No urine retention noted. Blood sugar was 407 contributing to the hyperglycemia. 4. Diabetes mellitus. s/p insulin drip. 5. Status post bilateral [id number] amputations. 6. Acute hypoxic and hypercapnic respiratory failure. Maintained on nasal cannula Plan: Continue current dose of diuretics Control blood sugars Repeat labs in a.m. Continue to hold DEBORA inhibitors for now mostly due to hyperkalemia.
== END 2024-10-12 17:21 | DRG 871 ==
LOC: EC 05:52 → 3SCARD 07:52 → 2SICU 10-01 06:12 → 3SCARD 10-04 08:05
PROVIDERS: ADMIT Hospitalist; ATTEND Hospitalist
PROC: 8E0ZXY6 Isolation (ICD-10-PCS; 2024-09-30)
PROC: 5A09357 Assistance with Respiratory Ventilation, Less than 24 Consecutive Hours, Continuous Positive Airway Pressure (ICD-10-PCS; principal; 2024-10-01)
DX: A41.9 Sepsis, unspecified organism (principal); G93.41 Metabolic encephalopathy; J15.9 Unspecified bacterial pneumonia; N17.0 Acute kidney failure with tubular necrosis; J96.21 Acute and chronic respiratory failure with hypoxia; J96.22 Acute and chronic respiratory failure with hypercapnia; I27.22 Pulmonary hypertension due to left heart disease; I13.0 Hypertensive heart and chronic kidney disease with heart failure and stage 1 through stage 4 chronic kidney disease, or unspecified chronic kidney disease; J44.1 Chronic obstructive pulmonary disease with (acute) exacerbation; E66.2 Morbid (severe) obesity with alveolar hypoventilation; E11.51 Type 2 diabetes mellitus with diabetic peripheral angiopathy without gangrene; K76.0 Fatty (change of) liver, not elsewhere classified; I50.22 Chronic systolic (congestive) heart failure; J44.0 Chronic obstructive pulmonary disease with (acute) lower respiratory infection; I48.19 Other persistent atrial fibrillation; Z68.42 Body mass index [BMI] 45.0-49.9, adult; E87.29 Other acidosis; E11.65 Type 2 diabetes mellitus with hyperglycemia; E11.22 Type 2 diabetes mellitus with diabetic chronic kidney disease; K74.60 Unspecified cirrhosis of liver; Z79.4 Long term (current) use of insulin; Z89.611 Acquired absence of right leg above knee; Z89.511 Acquired absence of right leg below knee; Z89.612 Acquired absence of left leg above knee; R65.20 Severe sepsis without septic shock; E87.5 Hyperkalemia; N18.2 Chronic kidney disease, stage 2 (mild); M10.9 Gout, unspecified; E61.1 Iron deficiency; E78.5 Hyperlipidemia, unspecified; T46.4X5A Adverse effect of angiotensin-converting-enzyme inhibitors, initial encounter; T50.0X5A Adverse effect of mineralocorticoids and their antagonists, initial encounter; I25.10 Atherosclerotic heart disease of native coronary artery without angina pectoris; I25.5 Ischemic cardiomyopathy; N40.0 Benign prostatic hyperplasia without lower urinary tract symptoms; M19.90 Unspecified osteoarthritis, unspecified site; Z99.81 Dependence on supplemental oxygen; Z86.19 Personal history of other infectious and parasitic diseases; Z87.891 Personal history of nicotine dependence; Z86.14 Personal history of Methicillin resistant Staphylococcus aureus infection; Z79.899 Other long term (current) drug therapy; Z79.01 Long term (current) use of anticoagulants
CPT/HCPCS: 36415; 36600; 71045; 71046; 76604; 76770; 80048; 80053; 82805; 83036; 83605; 83735; 84132; 84145; 84484; 85025; 85610; 85652; 85730; 87040; 87449; 87636; 93005; 94640; 94660; 94760; 96361; 96374; 96375; 99291

== ENCOUNTER → 2024-10-23 | Outpatient (CLI) | payer MEDICARE, BC ==
--- NOTE | 2024-10-23 10:06 | US ---
EXAMINATION TYPE: US liver DATE OF EXAM: 10/23/2024 COMPARISON: 09/30/2024 CLINICAL INDICATION: Male, 74 years old with history of K74.60 CIRRHOSIS OF LIVER; Cirrhosis. Hx chol ecystectomy. Bianka lift used for exam. TECHNIQUE: Grayscale and color Doppler imaging of the right upper quadrant. FINDINGS: EXAM MEASUREMENTS: Liver Length: 23.1 cm Gallbladder: Surgically absent CBD: Obscured Right Kidney: 12.0 x 5.5 x 4.2 cm ALMOND BLANCHER HAND NOTES: Exam is very limited due to gas Pancreas: Mostly obscured Liver: *Limited, appears enlarged with increased attenuation. *Coarse echotexture and nodular contou r Most images taken intercostally. Gallbladder: Surgically absent Evidence for sonographic Del Real's sign: No CBD: Obscured Right Kidney: No hydronephrosis or masses seen IMPRESSION: 1. Very limited exam due to bowel gas. The pancreas and bile duct are obscured and could not be asses sed. Gallbladder surgically absent. 2. Cirrhosis given nodular hepatic contour. There is increased echogenicity with significant sound be am attenuation suggesting severe hepatic steatosis. This secondarily limits assessment for focal lesi ons. No obvious lesion is seen. [facility], , 10/23/2024 10:04 AM
== END | disposition home or self-care (01) ==
LOC: RADUSWWP 07:06
PROVIDERS: ATTEND Internal Medicine Gastroenterology
DX: K74.60 Unspecified cirrhosis of liver (principal); Z90.49 Acquired absence of other specified parts of digestive tract
CPT/HCPCS: 76705